=== PATIENT | male | born 1940 | race Caucasian/White ===

== ENCOUNTER 2017-12-29 06:16 | Inpatient (IN) | payer OTHER, MEDICARE ==
[2017-12-29] MEDS ORDERED: NA CHLORIDE 0.9% 1,000 ML ONE ×2 (07:16→08:31)
[2017-12-29 07:36] LABS: Absolute Lymphocytes (CBC) 0.5 K/uL (0.7-4.9); Absolute Monocytes 0.8 K/uL (0.1-1.3); Absolute Neutrophil 14.7 K/uL (1.8-8.0); Basophils % 0.4 % (0-1.3); Hematocrit 38.4 % (39.6-49.0); MCH 30.4 pg (27.0-35.0); MCV 91.7 fL (80-100); MPV 8.8 fL (7.6-11.3); Monocytes % 5.3 % (3.3-12.3); RBC Red Blood Cell Count 4.18 M/uL (4.33-5.43)
[2017-12-29 07:44] LABS: Protime INR 1.4
[2017-12-29 07:49] LABS: Potassium 4.1 mEq/L (3.6-5.0)
[2017-12-29 07:55] LABS: Albumin 3.5 g/dL (3.2-5.5); Bilirubin Direct 0.5 mg/dL (0-0.2); Bilirubin Total 1.9 mg/dL (0.3-1.2); Magnesium 1.7 mg/dL (1.8-2.5); Protein, Total 7.4 g/dL (6.0-8.3)
[2017-12-29 07:59] LABS: CKMB Creatine Kinase MB 4.1 ng/ml (0.3-4.0)
--- NOTE | 2017-12-29 08:39 | RAD REPORT ---
EXAM DESCRIPTION: CT - Head Brain Wo Cont - 12/29/2017 8:32 am CLINICAL HISTORY: Altered consciousness COMPARISON: 12/01/2016 TECHNIQUE: All CT scans are performed using dose optimization technique as appropriate and may inclu de automated exposure control or mA/KV adjustment according to patient size. FINDINGS: No intracranial hemorrhage, hydrocephalus or extra-axial fluid collection.Moderate general ized brain atrophy is present with moderate periventricular and deep white matter chronic microvascul ar ischemic changes.No areas of brain edema or evidence of midline shift. The paranasal sinuses and mastoids are clear. The calvarium is intact. Vertebrobasilar atherosclerosi s is seen. IMPRESSION: No acute intracranial abnormality.
[2017-12-29 09:05] LABS: Arterial Blood Carboxyhemoglob 1.2 % (0-1.5); Blood Gas Oxyhemoglobin 94.6 % (94-97); Blood O2 Saturation 96.2 % (92-98.5)
[2017-12-29 09:25] LABS: Platelet Estimate ADEQ; Urine White Blood Cell Casts DIFF
[2017-12-29 09:26] LABS: Blood Morphology Comment NOT SEEN (NOT SEEN)
[2017-12-29] MEDS ORDERED: MAGNESIUM SULFATE 1 gm IVPB 1 GM/100 ML BAG IV ONE (09:59)
[2017-12-29 10:07] LABS: Urine Amorphous Sediment 1+ /HPF (NONE SEEN); Urine Bacteria 20-50 /HPF (NONE SEEN); Urine Culture Reflex Order REFLEXED; Urine Mucus 1+ /HPF (NONE SEEN)
--- NOTE | 2017-12-29 10:35 | RAD REPORT ---
EXAM DESCRIPTION: CT - Abdomen Pelvis Wo Contrast - 12/29/2017 10:18 am CLINICAL HISTORY: Abdominal pain. COMPARISON: 07/25/2016 TECHNIQUE: CT imaging of the abdomen and pelvis was performed without contrast. Solid organ, bowel a nd vascular assessment is limited due to lack of IV and oral contrast. All CT scans are performed using dose optimization technique as appropriate and may include automated exposure control or mA/KV adjustment according to patient size. FINDINGS: Linear subsegmental atelectasis is present in both lung bases.An area of round atelectasis is also suspected medial left lung base, unchanged. The liver, spleen, pancreas, adrenal glands and left kidney are within normal limits for a limited no n-contrast examination.6 mm nonobstructing right renal calculus. Postsurgical changes are present in the region of the umbilicus as well as the inferior anterior abdo sami cavity. Mild fluid is present in the inferior abdominal cavity as well as the left lower quadra nt, presumably related to recent surgery. Diverticulosis coli is present without diverticulitis. The appendix is normal. The osseous structures are within normal limits.Moderate prostatomegaly with a Ash catheter in plac e. IMPRESSION: Mild free fluid in the inferior anterior abdomen and left lower quadrant may represent f ree fluid or liquified hematoma related recent surgical intervention. No acute hematoma is seen in th e region. 6 mm nonobstructing right renal calculus. Diverticulosis coli without diverticulitis. Significant prostatomegaly. A limited non-contrast examination was performed as detailed.
--- NOTE | 2017-12-29 11:01 | RAD REPORT ---
EXAM DESCRIPTION: RAD - Chest Single View - 12/29/2017 7:40 am CLINICAL HISTORY: Chest pain. COMPARISON: 12/01/2016 FINDINGS: Portable technique limits examination quality. The lungs are underinflated but grossly clear. The heart is mildly prominent size with changes of a p rior CABG. No displaced fractures.Mild degenerate changes are present both shoulders.
[2017-12-29] MEDS ORDERED: CEFTRIAXONE/SWI 1gm 1 GM/10 ML SYR ONE (11:20)
--- NOTE | 2017-12-29 12:03 | EKG ---
Test Date: 2017-12-29 Test Time: 07:28:11 Smoking Tobacco Packing Machine Hand: EMT MEASUREMENT RESULTS: Intervals: Rate: 101 HI: QRSD: 108 QT: 358 QTc: 464 Hastings: P: HI: QRS: 46 T: 215 INTERPRETIVE STATEMENTS: Atrial fibrillation with rapid ventricular response with premature ventricular or aberrantly conducted complexes ST & T wave abnormality, consider inferolateral ischemia Abnormal ECG Compared to ECG 07/25/2016 00:34:57 Ventricular premature complex(es) now present Possible ischemia now present Prolonged QT interval no longer present ST (T wave) deviation still present Electronically Signed On 12-29-17 12:03:09 CDT by Jose J Mccain
--- NOTE | 2017-12-29 12:19 | ER ---
Nurse's Notes [facility] Name: Abisai Salinas Age: 77 yrs Sex: Male : 1940 Arrival Date: 12/29/2017 Time: 06:22 Bed 4 Private MD: Diagnosis: Altered mental status, unspecified;Urinary tract infection, site not specified;Acute kidney injury - Urinary retention Presentation: 12/29 06:22 Presenting complaint: EMS states: post hernia sx in [facility] with AMS, ak1 generalized weakness and decreased appetite. Transition of care: patient was not received from another setting of care. Onset of symptoms is unknown. Initial Sepsis Screen: Does the patient meet any 2 criteria? Altered Mental Status. No. Patient's initial sepsis screen is negative. Does the patient have a suspected source of infection? No. Patient's initial sepsis screen is negative. Care prior to arrival: None. 06:22 Method Of Arrival: EMS: [facility] ak1 06:22 Acuity: BIB 3 ak1 Triage Assessment: 06:26 General: Appears in no apparent distress. Behavior is calm, cooperative. Pain: ak1 Complains of pain in abdomen. Neuro: Level of Consciousness is awake, alert, obeys commands, Oriented to person, place, time, situation, Lace Burn Out Tender are equal bilaterally Moves all extremities. Speech is normal, Facial symmetry appears normal, EMS stated pt with intermitted altered mental status. . Historical: - Allergies: 06:25 No Known Allergies; ak1 - Home Meds: 06:25 Eliquis Oral [Active]; Glipizide Oral [Active]; Metformin Oral [Active]; Metoprolol ak1 Tartrate Oral [Active]; - PMHx: 06:25 Diabetes - NIDDM; Hypertension; ak1 - PSHx: 06:25 Bypass; Hernia repair; ak1 - Immunization history:: Adult Immunizations unknown. - Social history:: Smoking status: unknown. Screenin:26 Abuse screen: Denies threats or abuse. Denies injuries from another. Nutritional ak1 screening: No deficits noted. Tuberculosis screening: No symptoms or risk factors identified. Fall Risk None identified. Assessment: 06:33 General: SEE TRIAGE NOTE. 77YO WM P/W SOB AND INTERMITTENT AMS SINCE HERNIA REPAIR SX bp x5 DAYS AGO. ST ON MONITOR, PT AOx4 AT THIS TIME. 07:00 General: Appears in no apparent distress. uncomfortable, well groomed, well developed, sg well nourished, Behavior is calm, cooperative, appropriate for age. Pain: Complains of pain in abdomen and pelvis Quality of pain is described as tender, throbbing. Neuro: Level of Consciousness is awake, alert, obeys commands, intermittent confusion noted and visual hallucinations reported by the pt . Oriented to person, place, time, Lace Burn Out Tender are equal bilaterally Speech is normal, Facial symmetry appears normal. Cardiovascular: Heart tones S1 S2 present Capillary refill is brisk in bilateral fingers toes Patient's skin is warm and dry. Chest pain is denied. Cardiovascular: Rhythm is sinus tachycardia. Respiratory: Airway is patent Respiratory effort is even, unlabored, Respiratory pattern is regular, symmetrical, Breath sounds are clear. GI: No signs and/or symptoms were reported involving the gastrointestinal system. : No signs and/or symptoms were reported regarding the genitourinary system. EENT: No signs and/or symptoms were reported regarding the EENT system. Derm: Skin is pink, warm \\T\\ dry. Musculoskeletal: Reports pain in right femoral area. 08:08 Reassessment: Patient appears in no apparent distress at this time. pt transported to sg CT scan for CT of head, pt reports seeing orange trucks on the [place] at this time, Marga WOODS RIDER at bedside at this time evaluating pt, pt to CT in stable condition. 08:50 Reassessment: he inserted, perineal care performed, genitals appear swollen and sg bruising noted to penis and scrotum, pt reports that "two months ago performed a surgery on the pt prostate, inserted pins or some procedure im not sure exactly.". 08:50 : Eh in place Urine is cloudy, nikolas colored Swelling noted on penis on scrotum. sg Derm: Bruising that is dark purple, green, on head of penis, shaft of penis, perineum, meatus and scrotum. 08:55 Reassessment: He clamped after 200 mL collected, he to be unclamped in 20 mins to sg avoid problems with bladder decompression, pt informed, pt stated understanding. 08:57 Reassessment: Deya LOPEZ at bedside obtaining an ABG. sv 09:09 Reassessment: pt reports to that there is a man at bedside, but only the pt sg is the room with him at this time, Marga MURRAY notified. 10:29 Reassessment: Patient appears in no apparent distress at this time. Patient and/or sg family updated on plan of care and expected duration. Pain level reassessed. Patient is alert, oriented x 3, equal unlabored respirations, skin warm/dry/pink. pt returned from CT, placed back onto monitors, Jc blood noted in the pt he collection bag, Marga MURRAY notified. 12:10 Reassessment: Patient appears in no apparent distress at this time. Patient and/or sg family updated on plan of care and expected duration. Pain level reassessed. V/O received from Blake MURRAY to maintain I/O record, administer NS 1 LITER bolus IV. Vital Signs: 06:25 BP 148 / 69; Pulse 117; Resp 20; Temp 98.6(O); Pulse Ox 97% on R/A; Weight 83.91 kg ak1 (R); Height 5 ft. 11 in. (180.34 cm) (R); Pain 9/10; 06:46 BP 106 / 85; Pulse 110; Resp 18; Pulse Ox 96% ; bp 07:40 BP 153 / 99; Pulse 105; Resp 25; Pulse Ox 96% ; sv 09:02 BP 167 / 89; Pulse 111; Resp 25; Pulse Ox 97% ; sv 10:34 BP 157 / 72; Pulse 98 MON; Resp 20 S; Pulse Ox 99% on R/A; sg 12:00 BP 158 / 87; Pulse 99; Resp 18 S; Temp 98.6; Pulse Ox 97% on R/A; Pain 0/10; sg 13:21 BP 152 / 72; Pulse 97; Resp 18; Pulse Ox 99% on R/A; Pain 0/10; sg 06:25 Body Mass Index 25.80 (83.91 kg, 180.34 cm) ak1 ED Course: 06:22 Patient arrived in ED. em1 06:24 Triage completed. ak1 06:25 Arm band placed on Patient placed in an exam room, on a stretcher, on registered nurse cardiac, ak1 on pulse oximetry, Patient notified of wait time. 06:27 Patient has correct armband on for positive identification. Placed in gown. Bed in low ak1 position. Call light in reach. Side rails up X2. Adult w/ patient. manager media on. Pulse ox on. NIBP on. 06:32 Blake Chambers NP is PHCP. pm1 06:32 Greg Christine MD is Attending Physician. pm1 06:33 Yakov Garcia, MICHI is Primary Nurse. bp 07:00 Initial lab(s) drawn, by me, sent to lab. Missed attempt(s): 20 gauge in right sg antecubital area. Bleeding controlled, band aid applied, catheter tip intact. 07:19 Inserted saline lock: 20 gauge in right antecubital area, using aseptic technique. ms 07:26 Radiology exam delayed due to lab results not completed at this time. (BUN/Creatinine). cw1 07:38 XRAY Chest (1 view) In Process Unspecified. EDMS 08:32 CT Head Brain wo Cont In Process Unspecified. EDMS 08:55 He cath inserted, using sterile technique, 16 Fr., by launch steward, balloon inflated, to sg gravity drainage, urine specimen collected. returned nikolas urine. Patient tolerated well. output 200 mL noted, he cath clamped at this time, will unclamp he in 20 mins, and repeat to prevent problems with decompressing bladder. 08:57 CBC Smear Scan Sent. sv 10:18 Abdomen In Process Unspecified. EDMS 10:18 CT completed. Patient tolerated procedure well. Patient moved back from CT. cw1 12:17 Hussain Peter MD is Hospitalizing Provider. pm1 13:20 No provider procedures requiring assistance completed. Patient admitted, IV remains in sg place. intact, No redness/swelling at site. Administered Medications: 07:27 Drug: NS 0.9% 500 ml Volume: 500 ml; Route: IV; Rate: 1 bolus; Site: right antecubital; sg 07:57 Follow up: Response: No adverse reaction; IV Status: Completed infusion sg 07:57 Drug: NS 0.9% 1000 ml Route: IV; Rate: 100 ml/hr; Site: right antecubital; sg 09:29 Not Given (Physician Discretion; v/o recieved from Blake GILES to hold fluid bolus at sg this time): NS 0.9% 1000 ml IV at 1000 ml once 10:28 Drug: Magnesium Sulfate 1 grams Route: IVPB; Infused Over: 1 hrs; Site: right sg antecubital; 11:27 Follow up: Response: No adverse reaction; IV Status: Completed infusion sg 11:20 Drug: Rocephin 1 grams Route: IV; Rate: calculated rate; Site: right antecubital; sg 12:00 Follow up: Response: No adverse reaction; medication administered slow IVP as ordered sg 12:15 Drug: NS 0.9% 1000 ml Route: IV; Rate: 1000 ml; Site: right antecubital; sg Intake: Output: 09:58 Urine: 1000ml (He); Total: 1000ml. ms 10:24 Urine: 700ml (He); Total: 1700ml. ms 13:21 Urine: 800ml (He); Total: 2500ml. sg Outcome: 12:18 Decision to Hospitalize by Provider. pm1 13:33 Patient left the ED. Signatures: Dispatcher [employer] EDIlda Kiser RN RN sv Gay, Steven RN MICHI Clemencia Villalpando ms Janusz Zamudio em1 Josefa Bear RN RN ss Woodley, Crystal 1 Nikolas Rivera RN RN ak1 Blake Chambers, COOPERATIVE EDUCATION DIRECTOR COOPERATIVE EDUCATION DIRECTOR pm1 Yakov Garcia, RN RN bp Corrections: (The following items were deleted from the chart) 12:33 08:55 He cath inserted, using sterile technique, 16 Fr., by launch steward, balloon sg inflated, to gravity drainage, urine specimen collected. returned nikolas urine. Patient tolerated well. output 1200 mL noted, he cath clamped at this time, will unclamp he in 20 mins sg
--- NOTE | 2017-12-29 12:19 | EDPHYS ---
Physician Documentation [facility] Name: Abisai Salinas Age: 77 yrs Sex: Male : 1940 Arrival Date: 12/29/2017 Time: : Bed 4 Private MD: ED Physician Greg Christine HPI: 12/29 13:30 This 77 yrs old Male presents to ER via EMS with complaints of Abdominal pm1 pain, generalized weakness, and AMS. 13:30 The patient presents with abdominal pain that is diffuse. Onset: The symptoms/episode pm1 began/occurred 6 day(s) ago. The symptoms do not radiate. Associated signs and symptoms: Pertinent positives: Decreased urination and decreased PO intake for the past 3 days, Pertinent negatives: chest pain, diarrhea, fever, nausea, shortness of breath, vomiting. Modifying factors: The symptoms are alleviated by nothing, the symptoms are aggravated by nothing. Patient with surgery last Saturday by Dr. Efren Gomez at [facility]. Patient had laproscopic surgical repair of umbilical, bilateral inguinal, and LLQ hernias. Patient was discharged home on Saturday night and was doing well for two days. Patient then started having generalized weakness and decreased activity and PO intake. Patient has started hallucinating. Yesterday he started seeing snakes and today he is seeing people loading items in and out of a truck. . Historical: - Allergies: 06:25 No Known Allergies; ak1 - Home Meds: 06:25 Eliquis Oral [Active]; Glipizide Oral [Active]; Metformin Oral [Active]; Metoprolol ak1 Tartrate Oral [Active]; - PMHx: 06:25 Diabetes - NIDDM; Hypertension; ak1 - PSHx: 06:25 Bypass; Hernia repair; ak1 - Immunization history:: Adult Immunizations unknown. - Social history:: Smoking status: unknown. ROS: 13:30 Eyes: Negative for injury, pain, redness, and discharge. pm1 13:30 ENT: Negative for injury, pain, and discharge, Neck: Negative for injury, pain, and swelling, Cardiovascular: Negative for chest pain, palpitations, and edema, Respiratory: Negative for shortness of breath, cough, wheezing, and pleuritic chest pain. 13:30 Back: Negative for injury and pain. 13:30 MS/Extremity: Negative for injury and deformity, Skin: Negative for injury, rash, and discoloration. 13:30 Constitutional: Positive for poor PO intake, Negative for chills, fever. 13:30 Abdomen/GI: Positive for abdominal pain, Negative for nausea, vomiting, and diarrhea. 13:30 : Positive for Decreased urination . 13:30 Neuro: Positive for altered mental status, visual hallucinations , Negative for headache, numbness, tingling. Exam: 13:30 Constitutional: This is a well developed, well nourished patient who is awake, alert, pm1 and in no acute distress. Head/Face: Normocephalic, atraumatic. Eyes: Pupils equal round and reactive to light, extra-ocular motions intact. Lids and lashes normal. Conjunctiva and sclera are non-icteric and not injected. Cornea within normal limits. Periorbital areas with no swelling, redness, or edema. ENT: Nares patent. No nasal discharge, no septal abnormalities noted. Tympanic membranes are normal and external auditory canals are clear. Oropharynx with no redness, swelling, or masses, exudates, or evidence of obstruction, uvula midline. Mucous membranes moist. Neck: Trachea midline, no thyromegaly or masses palpated, and no cervical lymphadenopathy. Supple, full range of motion without nuchal rigidity, or vertebral point tenderness. No Meningismus. Chest/axilla: Normal chest wall appearance and motion. Nontender with no deformity. No lesions are appreciated. Cardiovascular: Regular rate and rhythm with a normal S1 and S2. No gallops, murmurs, or rubs. Normal PMI, no JVD. No pulse deficits. Respiratory: Lungs have equal breath sounds bilaterally, clear to auscultation and percussion. No rales, rhonchi or wheezes noted. No increased work of breathing, no retractions or nasal flaring. 13:30 Back: No spinal tenderness. No costovertebral tenderness. Full range of motion. Skin: Warm, dry with normal turgor. Normal color with no rashes, no lesions, and no evidence of cellulitis. MS/ Extremity: Pulses equal, no cyanosis. Neurovascular intact. Full, normal range of motion. 13:30 Abdomen/GI: Inspection: obese Bowel sounds: normal, Palpation: soft, mild abdominal tenderness, in the umbilical area, right lower quadrant and left lower quadrant, mass, is not appreciated. 13:30 Neuro: Orientation: to person, place, situation, Year. Mentation: is normal, Motor: moves all fours, Positive for hallucinations. Vital Signs: 06:25 BP 148 / 69; Pulse 117; Resp 20; Temp 98.6(O); Pulse Ox 97% on R/A; Weight 83.91 kg ak1 (R); Height 5 ft. 11 in. (180.34 cm) (R); Pain 9/10; 06:46 BP 106 / 85; Pulse 110; Resp 18; Pulse Ox 96% ; bp 07:40 BP 153 / 99; Pulse 105; Resp 25; Pulse Ox 96% ; sv 09:02 BP 167 / 89; Pulse 111; Resp 25; Pulse Ox 97% ; sv 10:34 BP 157 / 72; Pulse 98 MON; Resp 20 S; Pulse Ox 99% on R/A; sg 12:00 BP 158 / 87; Pulse 99; Resp 18 S; Temp 98.6; Pulse Ox 97% on R/A; Pain 0/10; sg 13:21 BP 152 / 72; Pulse 97; Resp 18; Pulse Ox 99% on R/A; Pain 0/10; sg 06:25 Body Mass Index 25.80 (83.91 kg, 180.34 cm) ak1 MDM: 06:36 Patient medically screened. pm1 11:35 Physician consultation: Efren Gomez was called at 11:26, was contacted at 11:35, regarding pm1 consult, patient's condition, Believes that there might be a possible iatrogenic bladder injury from the hernia repair and recommends admission to hospitalist here with urology consultation. 11:35 Physician consultation: Efren Gomez Available for consultation by phone [phone]. pm1 11:50 Physician consultation: Brain Zamudio MD was called at 11:45, was contacted at 11:45, pm1 regarding consult, patient's condition, Will see the patient if consulted by hospitalist but believes that this is a case for urology to evaluate. Believes there is a possibility for damage to the bladder from laproscopic inguinal hernia repair with hematuria present. 12:12 Physician consultation: Iris Nazario MD and will see patient tomorrow, Admit to pm1 hospitalist, keep Ash in place, IV antibiotics - Rocephin. Impression is that he has hematuria from the decompression of his bladder. No CT cystogram at the moment because he does not believe that there is a bladder perforation. Patient has a large prostate and the patient likely had urinary retention post surgery that has resulted in urinary tract infection, urospesis. 12:30 Physician consultation: Hussain Peter MD was contacted at 12:30, regarding admission, pm1 patient's condition, and will see patient would like further tests performed, procalcitonin, lactate and blood cultures. 13:30 Data reviewed: vital signs. Data interpreted: Pulse oximetry: on room air is 99 %. pm1 Interpretation: normal. 12/29 06:56 Order name: Basic Metabolic Panel pm1 12/29 06:56 Order name: BNP pm1 12/29 06:56 Order name: CBC with Diff; Complete Time: 10:34 pm1 12/29 06:56 Order name: Ckmb; Complete Time: 08:00 pm1 12/29 06:56 Order name: CPK; Complete Time: 08:00 pm12/29 06:56 Order name: LFT's; Complete Time: 08:00 pm12/29 06:56 Order name: Magnesium; Complete Time: 08:00 pm12/29 06:56 Order name: PT-INR; Complete Time: 07:49 pm12/29 06:56 Order name: Ptt, Activated; Complete Time: 07:49 pm12/29 06:56 Order name: Troponin (emerg Dept Use Only); Complete Time: 08:00 pm12/29 06:56 Order name: Basic Metabolic Panel; Complete Time: 08:00 EDMS 12/29 06:56 Order name: BNP B-Type Natriuretic Peptide; Complete Time: 08:11 EDMS 12/29 07:47 Order name: CBC Smear Scan ED12/29 08:49 Order name: ABG; Complete Time: 13:43 pm12/29 06:56 Order name: XRAY Chest (1 view); Complete Time: 11:02 pm12/29 06:56 Order name: CT Head Brain wo Cont; Complete Time: 08:41 pm12/29 08:03 Order name: Abdomen ; Complete Time: 11:02 EDMS 12/29 09:03 Order name: Urine Dipstick--Ancillary (enter results); Complete Time: 13:43 eb 12/29 09:04 Order name: Urine Microscopic Only eb 12/29 09:04 Order name: Urine Microscopic Only; Complete Time: 10:34 EDMS 12/29 09:25 Order name: Manual Differential; Complete Time: 10:34 EDMS 12/29 10:08 Order name: Urine Culture EDGA 12/29 12:27 Order name: Blood Culture Adult (2) pm1 12/29 12:27 Order name: Procalcitonin; Complete Time: 16:21 pm1 12/29 12:27 Order name: Lactate; Complete Time: 13:43 pm1 12/29 12:46 Order name: Lactate EDGA 12/29 12:46 Order name: Lactate; Complete Time: 16:21 EDGA 12/29 06:56 Order name: EKG; Complete Time: 06:57 pm1 12/29 06:56 Order name: Cardiac monitoring; Complete Time: 07:18 pm1 12/29 06:56 Order name: EKG - Nurse/Tech; Complete Time: 07:27 pm1 12/29 06:56 Order name: IV Saline Lock; Complete Time: 07:18 pm1 12/29 06:56 Order name: Labs collected and sent; Complete Time: 07:18 pm1 12/29 06:56 Order name: O2 Per Protocol; Complete Time: 07:18 pm1 12/29 06:56 Order name: O2 Sat Monitoring; Complete Time: 07:18 pm1 12/29 06:56 Order name: Urine Dipstick-Ancillary (obtain specimen); Complete Time: 09:15 pm1 12/29 08:10 Order name: Ash; Complete Time: 09:01 pm1 12/29 12:46 Order name: CONS Infection Control Cons EDGA 12/29 12:48 Order name: CONS Pharmacy Consult EDGA Administered Medications: 07:27 Drug: NS 0.9% 500 ml Volume: 500 ml; Route: IV; Rate: 1 bolus; Site: right antecubital; sg 07:57 Follow up: Response: No adverse reaction; IV Status: Completed infusion sg 07:57 Drug: NS 0.9% 1000 ml Route: IV; Rate: 100 ml/hr; Site: right antecubital; sg 09:29 Not Given (Physician Discretion; v/o recieved from Blake GILES to hold fluid bolus at sg this time): NS 0.9% 1000 ml IV at 1000 ml once 10:28 Drug: Magnesium Sulfate 1 grams Route: IVPB; Infused Over: 1 hrs; Site: right sg antecubital; 11:27 Follow up: Response: No adverse reaction; IV Status: Completed infusion sg 11:20 Drug: Rocephin 1 grams Route: IV; Rate: calculated rate; Site: right antecubital; sg 12:00 Follow up: Response: No adverse reaction; medication administered slow IVP as ordered sg 12:15 Drug: NS 0.9% 1000 ml Route: IV; Rate: 1000 ml; Site: right antecubital; Disposition: 12/29/17 12:18 Hospitalization ordered by Hussain Peter for Inpatient Admission. Preliminary diagnosis are Altered mental status, unspecified, Urinary tract infection, site not specified, Acute kidney injury - Urinary retention. - Bed requested for Telemetry/MedSurg (Inpatient). - Status is Inpatient Admission. ss - Condition is Stable. - Problem is new. - Symptoms have improved. UTI on Admission? Yes Addendum: 01/07/2018 07:00 Co-signature as Attending Physician, Greg Christine MD. m a2 Signatures: Dispatcher [employer] EDMS Santi Beckford RN RN Josefa Bear RN RN Mamta Rivera RN RN ak1 Blake Chambers, JOURNEYMAN PRESS OPERATOR JOURNEYMAN PRESS OPERATOR pm1 Sulma Reynoso RN RN df Alzahri, Mohammad, MD MD nh2 Elza Torres Corrections: (The following items were deleted from the chart) 12/29 08:03 06:57 Abdomen Pelvis W Con+CT.RAD.BRZ ordered. EDMS EDMS
[2017-12-29 12:28] LABS: Urine Blood 2+ (NEG); Urine Glucose 2+ (NEG); Urine Protein 1+ (NEG)
[2017-12-29] MEDS ORDERED: ONDANSETRON 4 MG/2 ML VIAL IV PRN (12:47)
[2017-12-29] MEDS ORDERED: NA CHLORIDE 0.9% 1,000 ML IV SCH (13:00)
[2017-12-29] MEDS ORDERED: D50W 25 GM/50 ML SYRINGE IV PRN (15:14)
[2017-12-29] MEDS ORDERED: GLUCAGON 1 MG/VIAL IM PRN (15:14)
[2017-12-29] MEDS ORDERED: PNEUMOCOCCAL VACCINE 0.5 ML IMVAC ONE (16:00)
[2017-12-29] MEDS: INSULIN -REGULAR HUMAN 50 UNIT/0.5 ML ML SQ SCH ×2 (16:08→21:00)
[2017-12-29] MEDS: D5W 1,000 ML with NA BICARB 8.4% 75 MEQ IV SCH ×2 (16:38)
[2017-12-29] MEDS ORDERED: ENOXAPARIN 30 MG/0.3 ML SQ SCH (17:00)
[2017-12-29] MEDS: Morphine 2 MG/2 ML SYR IV PRN (18:54)
[2017-12-29] MEDS: ATORVASTATIN 40 MG TAB PO SCH (21:08)
[2017-12-30] MEDS ORDERED: PIPER/TAZO/NS 3.375gm 3.375 GM/100 ML BAG IVPB SCH
[2017-12-30] MEDS: PIPER/TAZO/NS 2.25gm 2.25 GM/50 ML BAG IVPB SCH ×3 (01:00→17:07)
[2017-12-30] MEDS ORDERED: PIPERACIL/TAZO 2.25 GM VIAL IV ONE (01:05)
[2017-12-30] MEDS ORDERED: NA CHLORIDE 0.9% 100 ML ONE (01:13)
--- NOTE | 2017-12-30 01:20 | CON ---
Date of Consultation: 12/29/2017 Chief Complaint: Acute kidney injury. History Of Present Illness: The patient has acute kidney injury, severe, borderline oliguric. The patient was found to have severe urinary retention. Ash catheter was placed and the patient was found to have 1.2 L urine in the bladder, which was drained with the Ash catheter. The patient has currently Ash catheter, which is draining clear yellowish urine. The patient was found to have severe azotemia due to urinary retention and hypovolemia. BUN was 67 and creatinine 4.29. There was mild metabolic acidosis , bicarbonate 19; mild hyponatremia, sodium 133; and hypomagnesemia, magnesium 1.7. The patient has history of hypertensive kidney disease and heart disease. BNP was elevated up to 406. The patient had uncontrolled hypertension. Blood pressure is stabilizing. On arrival to the hospital, blood pressure was up to 167/89 and 183/77. The patient developed progressively worse confusion over last several days. He denied fever or chills. He has history of TURP and history of diabetes mellitus and he is started on broad-spectrum antibiotics for urinary tract infection. He received sodium bicarbonate IV for metabolic acidosis. The patient has been treated with Lipitor for hypercholesterolemia. There is no evidence of rhabdomyolysis at this point. The patient previously had renal function evaluated and creatinine baseline was 1.09 back in July 2016. Review of Systems: General: The patient is somewhat lethargic, although he answers questions. Eyes: Denies vision changes. Ears, Nose, Mouth, and Throat: Denies sore throat or earache. Respiratory: Denies PND or orthopnea. Cardiovascular: Denies chest pain or palpitation. GI: Denies nausea or vomiting. : Denies dysuria or hematuria. He had urinary discomfort and urinary retention, difficulty with voiding. Musculoskeletal: Denies muscle aches or joint swelling. All other systems reviewed and all are negative. Past Medical History: Hypertension, diabetes, hyperlipidemia, BPH, peptic ulcer disease. Social History: Denies tobacco, alcohol, or illicit drugs. Family History: No kidney disease in the family. Physical Examination: General: The patient is awake, confused somewhat, encephalopathic, lethargic. Eyes: Anicteric sclerae. EOMI. Ears, Nose, Mouth, and Throat: Mucous membranes are moist. No pallor. Neck: Supple. No JVD. No bruits. Lungs: Clear to auscultation bilaterally. Heart: S1 and S2. No pericardial friction rub. Abdomen: Soft, benign, nontender. No flank tenderness. Extremities: No edema, no clubbing, no cyanosis. Neurologic: Moving all extremities. Cranial nerves intact. Psychiatric: Alert and oriented x2. Normal affect. Vital Signs: Blood pressure 151/79, heart rate 104, temperature 97.4. Laboratory Work: Sodium 133, potassium 4.1, chloride 103, CO2 19, BUN 57, creatinine 4.29, glucose 222, calcium 9.6, magnesium 1.7. Total bilirubin 1.9, AST 20, ALT 11, AP 76. CK level 119. Albumin 3.5, total protein 7.4. Urinalysis showed 2+ blood, leukocyte esterase 1+, rbc's from 10-20, wbc's from 10-20, urine protein 1+, specific gravity 1.020, pH 6.0. Impression And Plan: 1. Severe acute kidney injury. Currently, the patient has a Ash catheter for treatment of urinary retention and to prevent worsening of the renal function secondary to acute urinary retention. The patient will continue IV fluids to treat hypovolemia. The patient has acute kidney injury due to renal hypoperfusion and urinary retention. Urine output improved with placement of Ash catheter. Continue IV fluids for hydration to prevent renal hypoperfusion. Avoid nonsteroidal antiinflammatory medication. 2. Urinary tract infection, microscopic hematuria. The patient will be evaluated by urologist. The patient currently has a Ash catheter. Hematuria may be due to Ash catheter. The patient needs to be ruled out for other etiology including history of malignancy. 3. The patient will continue broad-spectrum antibiotics with renally adjusted dose. Currently, he is on Zosyn for possible urinary tract infection. 4. Altered mental status and encephalopathy secondary to acute kidney injury and urinary retention. Continue to monitor electrolytes closely. Adjust IV fluids as needed. 5. Hypertension. CHANDA inhibitor on hold due to acute kidney injury. Continue calcium channel guy and beta guy for blood pressure control. 6. Diabetes. Recommend to stop glipizide because of risk of hypoglycemia. Continue insulin treatment with sliding scale. EB/MODL Voice ID: [id number] Report ID: [id number] SCAR
--- NOTE | 2017-12-30 01:36 | HP ---
Date of Admission: 12/29/2017 Code Status: Full. Chief Complaint: Generalized weakness and altered mental status. History Of Present Illness: The patient is a 77-year-old male with past medical history of coronary artery disease, status post CABG, hypertension, diabetes, GERD, benign prostatic hyperplasia, carotid artery disease, who was in his usual state of health until 6 days prior to admission when the patient had hernia repair at [facility] laparoscopically. The patient did well with surgery performed by doctor surgeon, Patricia. The patient was doing well at home, however, over the past couple of days became more weak and progressively weaker, unable to stand up on his own and go to the bathroom. The patient also seemed slightly confused and was complaining of lower abdominal pain. The patient was brought into the hospital for worsening symptoms, which were moderate. The patient's symptoms are aggravated by any sort of pressure on the abdomen. The patient also has been unable to urinate properly and has had urinary retention which the patient did not realize. No dysuria. The patient denies any fevers, chills, nausea, or vomiting. The patient was brought into the ER for further evaluation. Upon arrival, his vital signs were stable. His workup revealed white count of 16,000 with neutrophilia. ABG showed normal pH, low bicarb, procalcitonin was 0.31. Lactate was normal. His UA was positive and also showed some gross hematuria after Ash catheter was placed with 1200 mL return. Imaging studies including CT scan of the abdomen and pelvis showed mild free fluid in the inferior anterior abdomen and left lower quadrant that may represent free fluid retroperitoneal hematoma related to recent surgical intervention. No acute hematoma, nonobstructing right renal calculus, 6 mm diverticulosis coli without diverticulitis and significant prostatomegaly. The patient's surgeon, Dr. Gomez was contacted by the ER personnel, Blake, the mid- level provider and the surgeon at [facility] did not feel that the patient had to be transferred to [facility] as this seemed more as a primary urinary retention issue. The patient's creatinine was elevated at 4.29. The patient was then referred for admission. When seen in the ER, the patient was awake, alert, oriented x3, mildly confused, in some mild distress, ill-appearing , elderly male. Past Medical History: Coronary artery disease, status post CABG, hypertension, diabetes mellitus type 2, gastroesophageal reflux disease, benign prostatic hyperplasia, carotid artery disease, and atrial fibrillation . Surgical History: CABG 25 years ago, carotid artery, carotid endarterectomy x2. Allergies: NO KNOWN DRUG ALLERGIES. Medications: Reviewed. Family History: Mother of heart disease. Social History: The patient denies any alcohol use or tobacco use, quit 30 years ago. No illicit drug use. The patient is . Does use an occasional cane for ambulation, mostly independent in his activities of daily living. Review of Systems: An 11-point system reviewed, negative except as above. Somewhat limited due to patient's medical condition supplemented by the . Physical Examination: Vital Signs: Temperature 98.6, heart rate 99 to 100, blood pressure 158/87, respirations 18, O2 97% on room air. General: Awake, alert, oriented x3, in some mild distress, ill-appearing, elderly male. HEENT: Normocephalic and atraumatic. PERRLA. EOMI. Dry mucous membranes. Oropharynx is clear. Poor dentition. Conjunctivae anicteric. Neck: Supple. No JVD. Trachea midline. CV: S1 and S2. No murmurs. Peripheral pulses present bilaterally. Respiratory: Moving air well bilaterally. No wheezing. No stridor. No use of accessory muscles. Gastrointestinal: Abdomen is soft. Mild tenderness to palpation in the left upper quadrant and suprapubic region. Some voluntary guarding. No rigidity. No palpable masses. Extremities: No clubbing, cyanosis, or edema. No calf tenderness. Neuro: Cranial nerves 2-12 intact grossly, 5/5 diffusely diminished strength due to generalized weakness, however, no focal neurological deficit. Speech is normal. Sensation is intact to light touch. Skin: No rashes. Some ecchymosis around the lower abdomen from recent surgery. Healing incision site clean, dry, intact in the abdomen and suprapubic region. Psych: Mood is okay. Affect is full. Insight and judgment are fair. Laboratory Data: Sodium 133, potassium 4.1, chloride 103, CO2 19, BUN 67, creatinine 4.29, glucose 222, lactic acid 10.2, calcium 9.6, magnesium 1.7, total bilirubin 1.9, direct bilirubin 0.5, AST 20, ALT 11, alkaline phosphatase 76, troponin 0.03, BNP 46, total protein 7.4, albumin 3.5. Procalcitonin 0.31. UA; 2+ blood, negative nitrite, 1+ leukocyte esterase, 10-20 rbc's, 10-20 wbc' s, 20-50 urine bacteria, 1+ protein. ABG; pH 7.39, pCO2 27, PO2 88, bicarb 16, INR 1.40. WBC 16.1, H and H 12.7 and 38.4, platelets 268, neutrophils 91%. Imaging Studies: CT scan of the abdomen and pelvis without contrast shows small free fluid in the inferior anterior abdomen and left lower quadrant. It may represent free fluid or look for hematoma related to recent surgical intervention. No acute hematoma seen in the region, 6 mm nonobstructing right renal calculus, diverticulosis coli without diverticulitis. Significant prostatomegaly, CT head without contrast shows no acute intracranial abnormality. Chest x-ray shows lungs are not inflated, but grossly clear and prominent in size with changes of prior CABG. Assessment And Plan: A 77-year-old male with; 1. Acute metabolic encephalopathy, improving, likely secondary to uremia. 2. Possible sepsis. The patient has a white count of 16,000, heart rate 99. Source of the infection is urinary tract infection. The patient does have kidney dysfunction with a creatinine of 4.29. We will continue with IV fluid hydration. Obtain blood cultures and urine culture and monitor closely. 3. Acute urinary retention, improved with Ash catheter placement. Dr. Nazario urologist has been consulted. The patient did develop some gross hematuria, likely related to prostatomegaly. 4. Benign prostatic hyperplasia, currently enlarged. CT scan shows gross significant prostatomegaly. We will continue with Flomax. 5. Coronary artery disease, status post coronary artery bypass graft, klamath artery, klamath heart without angina. 6. Essential hypertension. 7. Diabetes mellitus type 2, noninsulin dependent with hyperglycemia. We will continue with sliding scale insulin. 8. Gastroesophageal reflux disease without esophagitis. Continue PPI. 9. Carotid artery disease, status post bilateral carotid endarterectomy. 10. Metabolic acidosis. We will add bicarb to IV fluids. 11. Hypomagnesemia. We will replace and monitor. 12. Elevated total bilirubin, likely acute phase reactant. 13. Gastrointestinal and deep venous thrombosis prophylaxis, PPI and SCDs. No chemical anticoagulation due to gross hematuria. 14. Acute kidney injury. Continue with IV fluids. Avoid nephrotoxins secondary to urinary retention. Plan: 1. Admit the patient [facility]. The patient will continue on IV antibiotics. We will consult Dr. Nazario with Urology and Dr. Zamudio with General surgery and Dr. Hsu with Nephrology. ER mid level spoke with the surgeon, who performed recent hernia surgery. They did review the CAT scan. He felt that the patient does not need to be transferred to [facility] at this time. However, CT scan does show some free fluid. We will continue to monitor closely. We will obtain surgical consultation. ADDENDUM: Spoke w surgeon Dr. Gomez - reviewed CT findings and case with him. He does not recommend transfer. /SHONNA Voice ID: [id number] SCAR
[2017-12-30] MEDS: D5W 1,000 ML with NA BICARB 8.4% 75 MEQ IV SCH ×4 (04:18→15:52)
--- NOTE | 2017-12-30 04:21 | CON ---
Date of Consultation: 12/29/2017 Reason For Service: Abdominal pain. Indications: This is the case of a 77-year-old patient, who underwent laparoscopic left inguinal her columba repair at [facility] about 5 days ago. He said the first day he was okay. Then, day after he started to feel little bit discomfort in the pelvic region. He has also some ecchymosis over the surgical site. Today since he was not getting better, he decided to come to the ER. Apparently, [facility] ER physician discussed the case with the surgeon in [place] and after ruling out any acute trauma f rom the surgery, the patient was admitted to this institution due to the history of urinary retention and hematuria. Surgical consult was obtained here for evaluation from a surgical standpoint. Appar ently, he has history of altered mental status and he cannot give me any major information. Most of the information is obtained partly from the patient, partly from the chart, and partly from the [facility] staff when they were talking to the and also from the primary doctor I discussed the case wit h. Review of Systems: Unable to be obtained. Past Medical History: Includes diabetes and hypertension. Past Surgical History: Include hernia repair and heart surgery. Medications: Include Eliquis, glipizide, metformin, metoprolol. Social History: He does not smoke. He does not drink alcohol. Physical Examination: General: The patient is awake and alert. HEENT: The pupils are anicteric. Chest: Clear. Abdomen: Soft and depressible. No guarding or rebound. There is ecchymosis over the lower abdomen in left lower quadrant. Incisions are intact. No bleeding. No crepitus. No pulsation. No expandi ng hematoma. Extremities: Femoral pulses and dorsalis pedis pulses are still present. Full range of motion of bi lateral lower extremities. Genitourinary: The patient has a Ash in place. Apparently, the patient had hematuria in the begin aishwarya. Also has urinary retention with 1200 cc. Since then the color is better. Rectal: Deferred. Laboratory Data: Blood work shows WBC count of 16.1 with hemoglobin of 12.7. INR is 1.40. Sodium i s 133, bicarb 19, creatinine is 4.29, BUN 67, glucose 222. Total bilirubin of 1.9. UA shows rbc's 1 0-20 with wbc's 10-20. CAT scan of the abdomen and pelvis, interpreted by Dr. Maharaj as postsurgical c hanges present in the region of the umbilicus as well the inferior anterior abdominal cavity. Mild f luid is present in the inferior abdominal cavity as well as the left lower quadrant, presumably relat ed to the recent surgery. Diverticulosis present too. Enlarged prostate. A 6-mm nonobstructing kobe al calculus. Assessment: This is a 77-year-old patient with recent hernia repair, laparoscopic. From the surgica l standpoint, ecchymosis present in that area is not uncommon. The abdomen is soft and depressible. Now, the fluid that he has in the left lower quadrant even though can be related to the surgery, at the same time I cannot rule out also a bladder injury as a cause of that. For that reason, I explain ed to the physician that from the surgical standpoint I can take a look at this patient; from the uro logical standpoint, he needs an expert in that, which is a urologist, to rule out any damage in that area. With that condition, at this point the patient gets admitted to this hospital. We are going t o keep an eye on the patient. We are going to give him a clear liquid diet since the abdomen is nadir gn at this moment and then proceed accordingly. TERRENCE/SHONNA Voice ID: [id number] Report ID: [id number]
[2017-12-30] MEDS ORDERED: glipiZIDE 5 MG TAB PO SCH (08:00)
[2017-12-30] MEDS ORDERED: HOME MED 1 EA UNK (Glipizide [Glucotrol] 10 MG) PO SCH (09:00)
[2017-12-30] MEDS ORDERED: CEFTRIAXONE/SWI 1gm 1 GM/10 ML SYR IV SCH (09:00)
[2017-12-30 09:21] LABS: Hematocrit 39.5 % (39.6-49.0); RBC Red Blood Cell Count 4.34 M/uL (4.33-5.43)
[2017-12-30 09:22] LABS: Absolute Monocytes 0.7 K/uL (0.1-1.3); Absolute Neutrophil 8.5 K/uL (1.8-8.0); Basophils % 0.3 % (0-1.3); Eosinophils % 1.8 % (0-4.4); Lymphocytes % 9.3 % (15.3-44.8); MCV 91.1 fL (80-100); MPV 8.4 fL (7.6-11.3); Monocytes % 7.1 % (3.3-12.3)
[2017-12-30 09:28] LABS: Potassium 3.4 mEq/L (3.6-5.0)
[2017-12-30] MEDS ORDERED: POTASSIUM CL SA 10 MEQ TAB PO ONE (09:45)
[2017-12-30] MEDS: DOCUSATE NA 100 MG CAP PO SCH (10:00)
[2017-12-30] MEDS: INSULIN -REGULAR HUMAN 50 UNIT/0.5 ML ML SQ SCH ×4 (10:00→21:00)
[2017-12-30] MEDS: PANTOPRAZOLE 40MG TABLET PO SCH (10:00)
--- NOTE | 2017-12-30 14:00 | RAD REPORT ---
EXAM DESCRIPTION: US - Renal Ultrasound-Complete - 12/30/2017 1:32 pm CLINICAL HISTORY: Acute renal failure COMPARISON: CT study December 29, 2017 and July 2016 FINDINGS: The right kidney measures 10.1 x 5.2 x 5.0 cm. The left kidney measures 11.5 x 5.5 x 5.7 cm. Renal cortical thickness and echogenicity are normal. No hydronephrosis or suspicious renal mass. Approximately 17 mm cyst is present in the mid to lower pole hilum of the left kidney. This matches the current and prior CT study. IMPRESSION: No hydronephrosis or suspicious renal mass. No other significant findings.
--- NOTE | 2017-12-30 15:04 | RAD REPORT ---
EXAM DESCRIPTION: CT - Pelvis W/Cont - 12/30/2017 2:29 pm CLINICAL HISTORY: Recent prostate surgery, possible bladder injury COMPARISON: CT abdomen and pelvis December 29 TECHNIQUE: Axial 5 millimeter thick images of the pelvis were obtained following retrograde filling of the urinary bladder via an indwelling catheter. Imaging was then repeated after gravity drainage o f the bladder. FINDINGS: The CT pelvis imaging shows that the oral contrast has cleared from the December 29 study. Enlarged prostate gland is noted with Ash catheter in place. Urinary bladder is distended by the retrograde contrast. There is a small diverticulum posterior left . Extraluminal extravasation of the contrast is seen believed to be due to a small tear or rent in th e right anterior bladder wall. There is a thin crescent-shaped extraluminal contrast collection. On t he postvoid imaging bladder is contracted. Bladder knight are slightly thickened and irregular. There is a nodularity to the bladder base from the collapsed bladder is well is due to the large prostate g land projecting into the bladder base. The extravasated contrast volume has increased slightly from t he prevoid appearance. The extraluminal contrast is believed to part of the free fluid seen throughou t the anterior lower pelvis. No abnormal free air collection. There is stranding in the periumbilical region believed to be postsu rgical from recent scope. IMPRESSION: Small rent or tear is seen believed to be right anterior bladder wall resulting in extra vasation of the contrast.
[2017-12-30] MEDS: Morphine 2 MG/2 ML SYR IV PRN (15:51)
--- NOTE | 2017-12-30 17:38 | P.PN ---
Subjective Date of Service: 12/30/17 Chief Complaint: acute encephalopathy the patient remain obtunded, no fever. WBC WNL. Physical Examination - Vital Signs Temperature: 97.5 F Blood Pressure: 191/88 Pulse: 112 Respirations: 18 Pulse Ox (%): 94 - Physical Exam General: Other (obtunded) HEENT: Atraumatic, PERRLA Neck: Supple, JVD not distended Respiratory: Clear to auscultation bilaterally, Normal air movement Cardiovascular: Normal S1 S2, No gallops Gastrointestinal: Hypoactive, Distended, Tenderness (surgical wound) Musculoskeletal: No tenderness Integumentary: No rashes Neurological: Normal tone, Normal affect Lymphatics: No axilla or inguinal lymphadenopathy Assessment And Plan - Current Problems (Diagnosis) (1) Sepsis Current Visit: Yes Status: Acute (2) UTI (urinary tract infection) Current Visit: Yes Status: Acute Qualifiers: Urinary tract infection type: site unspecified Hematuria presence: with hematuria Qualified Code(s): N39.0 - Urinary tract infection, site not specified; R31.9 - Hematuria, unspecified; R31.9 - Hematuria, unspecified (3) Acute renal injury Current Visit: Yes Status: Acute (4) History of abdominal surgery Current Visit: Yes Status: Acute (5) Accidental perforation of bladder during operative procedure Current Visit: Yes Status: Acute - Plan #1 sepsis: due to bladder perforation during abdominal surgery. WBC came back to normal limits. No fever. Remain obtunded, blood cultures negative. Continue empiric treatment with IV Zosyn. #2 accidental bladder perforation during abdominal surgery: Dr Nazario has indicated that is not necessary to perform new surgical procedure to repair bladder. Instead, has recommended to continue IV antibiotics for a total of 10 days. Plan is to transfer to patient to a SNF to continue IV antibiotics. #3 gross hematuria: due to #2, resolving. #4 urinary retention: resolved after Ash catheter placement. 1200 ml out. #5 acute renal failure: likely obstructive uropathy. Creatinine is WNL now. Continue monitoring.
[2017-12-30] MEDS: ATORVASTATIN 40 MG TAB PO SCH (21:50)
[2017-12-31] MEDS: PIPER/TAZO/NS 2.25gm 2.25 GM/50 ML BAG IVPB SCH ×3 (00:59→17:14)
[2017-12-31] MEDS: D5W 1,000 ML with NA BICARB 8.4% 75 MEQ IV SCH ×4 (01:00→11:00)
--- NOTE | 2017-12-31 01:58 | PN ---
Date of Progress Note: 12/30/2017 Chief Complaint: Acute kidney injury. Subjective: Severe acute kidney injury. The patient underwent treatment with the IV fluids and renal function has improved. The patient was found to have hypovolemia and urinary retention. The patient presented to the hospital with altered mental status, confusion. The patient was found to have encephalopathy secondary to urinary retention. Renal function has improved. The patient has nonoliguric urine output. Ash catheter remains in place and draining yellowish urine. Review of Systems: Denies fever, chills. Objective: Lungs: Clear to auscultation bilaterally. Heart: S1, S2. Abdomen: Soft, benign, and nontender. Extremities: No edema. Laboratory Data: Hemoglobin 13, WBC 10.5, platelet count is 272. Sodium 142, potassium 3.4, chloride 104, CO2 28, BUN 26, creatinine 1.03, glucose is 221, calcium 8.8. Impression And Plan: 1. Urinary retention. Continue Ash catheter, pending Urology consultation. 2. Hypertension. Continue blood pressure medication. Adjust blood pressure for target systolic blood pressure of 120. Avoid CHANDA inhibitor and avoid angiotensin receptor guy because of resolving acute kidney injury. 3. Acute kidney injury secondary to urinary retention and hypovolemia. Continue IV fluids. 4. hypokalemia, replace accordingly. MARTY/[place] Voice ID: [id number] Report ID: [id number] MTDD
[2017-12-31 05:02] LABS: Absolute Lymphocytes (CBC) 1.4 K/uL (0.7-4.9); Absolute Monocytes 0.8 K/uL (0.1-1.3); Basophils % 0.5 % (0-1.3); Eosinophils % 2.8 % (0-4.4); Hematocrit 41.9 % (39.6-49.0); Lymphocytes % 11.7 % (15.3-44.8); MCH 30.7 pg (27.0-35.0); MCV 91.3 fL (80-100); MPV 8.7 fL (7.6-11.3); Monocytes % 7.3 % (3.3-12.3); RBC Red Blood Cell Count 4.59 M/uL (4.33-5.43)
[2017-12-31 05:06] LABS: Potassium 3.5 mEq/L (3.6-5.0)
[2017-12-31] MEDS: DOCUSATE NA 100 MG CAP PO SCH (08:48)
[2017-12-31] MEDS: PANTOPRAZOLE 40MG TABLET PO SCH (08:48)
[2017-12-31] MEDS: INSULIN -REGULAR HUMAN 50 UNIT/0.5 ML ML SQ SCH ×4 (08:49→20:39)
[2017-12-31] MEDS ORDERED: KCL 20 MEQ/100 mL IVPB 20 MEQ/100 ML BAG IV SCH (09:00)
[2017-12-31] MEDS: Morphine 2 MG/2 ML SYR IV PRN ×2 (12:55→20:39)
[2017-12-31] MEDS ORDERED: NA CHLORIDE 0.9% 1,000 ML IV SCH (14:00)
--- NOTE | 2017-12-31 16:16 | P.DS ---
Admission Date: 12/29/17 Discharge Date: 12/31/17 Disposition: TRANSFER TO [facility] Reason for Admission: acute encephalopathy - Problems (1) Sepsis Onset Date: 12/31/17 Current Visit: Yes Status: Acute (2) UTI (urinary tract infection) Onset Date: 12/31/17 Current Visit: Yes Status: Acute Qualifiers: Urinary tract infection type: site unspecified Hematuria presence: with hematuria Qualified Code(s): N39.0 - Urinary tract infection, site not specified; R31.9 - Hematuria, unspecified; R31.9 - Hematuria, unspecified (3) Acute renal injury Onset Date: 12/31/17 Current Visit: Yes Status: Acute (4) History of abdominal surgery Onset Date: 12/31/17 Current Visit: Yes Status: Acute (5) Accidental perforation of bladder during operative procedure Onset Date: 12/31/17 Current Visit: Yes Status: Acute Brief History of Present Illness: : The patient is a 77-year-old male with past medical history of coronary artery disease, status post CABG, hypertension, diabetes, GERD, benign prostatic hyperplasia, carotid artery disease, who was in his usual state of health until 6 days prior to admission when the patient had hernia repair at [facility] laparoscopically. The patient did well with surgery performed by doctor surgeon, Gomez. The patient was doing well at home, however, over the past couple of days became more weak and progressively weaker, unable to stand up on his own and go to the bathroom. The patient also seemed slightly confused and was complaining of lower abdominal pain. The patient was brought into the hospital for worsening symptoms, which were moderate. The patient's symptoms are aggravated by any sort of pressure on the abdomen. The patient also has been unable to urinate properly and has had urinary retention which the patient did not realize. No dysuria. The patient denies any fevers, chills , nausea, or vomiting. The patient was brought into the ER for further evaluation. Upon arrival, his vital signs were stable. His workup revealed white count of 16,000 with neutrophilia. ABG showed normal pH, low bicarb, procalcitonin was 0.31. Lactate was normal. His UA was positive and also showed some gross hematuria after Ash catheter was placed with 1200 mL return. Imaging studies including CT scan of the abdomen and pelvis showed mild free fluid in the inferior anterior abdomen and left lower quadrant that may represent free fluid retroperitoneal hematoma related to recent surgical intervention. No acute hematoma, nonobstructing right renal calculus, 6 mm diverticulosis coli without diverticulitis and significant prostatomegaly. The patient's surgeon, Dr. Gomez was contacted by the ER personnel, Blake, the mid- level provider and the surgeon at [facility] did not feel that the patient had to be transferred to [facility] as this seemed more as a primary urinary retention issue. The patient's creatinine was elevated at 4.29. The patient was then referred for admission. When seen in the ER, the patient was awake, alert, oriented x3, mildly confused, in some mild distress, ill-appearing , elderly male. Hospital Course: The patient was admitted to the hospital due to sepsis. He had leukocytosis, elevated procalcitonin and normal lactate, his renal function was significantly abnormal in context of urinary retention, creatinine was 4.29. CT abd pelvis report mild free fluid in the inferior anterior abdomen and left lower quadrant may represent free fluid or liquified hematoma related recent surgical intervention. No acute hematoma is seen in the region. The patient was started on empiric broad spectrum antibiotics, placed a Ash catheter daining initially 1200 ml of urine. Gradually the patient clinically improved. Blood cultures remain negative but still in process. Dr Zamudio (general surgeon) and Dr Nazario (Urologist) have evaluated the case, and they found that a clip was placed on the bladder. They have recommended to transfer the patient to [facility], where he had his hernia repair surgery to remove the clip. I have disucssed the case with Dr Gomez and Dr Toledo who accepted the patient at this facility. Patient will be transfer in stable condition. Vital Signs/Physical Exam: Temp Pulse Resp BP Pulse Ox 98.2 F 96 H 16 159/92 H 95 12/31/17 12:00 12/31/17 12:00 12/31/17 12:00 12/31/17 12:12/31/17 12:00 General: Alert, In no apparent distress HEENT: Atraumatic, PERRLA, EOMI Neck: Supple, JVD not distended Respiratory: Clear to auscultation bilaterally, Normal air movement Cardiovascular: Regular rate/rhythm, Normal S1 S2 Gastrointestinal: Normal bowel sounds, No tenderness Musculoskeletal: No tenderness Integumentary: No rashes Neurological: Normal speech, Normal tone, Normal affect Lymphatics: No axilla or inguinal lymphadenopathy, Axilla lymphadenopathy, Inguinal lymphadenopathy, Other Laboratory Data at Discharge: WBC 11.6 K/uL (4.3-10.9) H 12/31/17 04:08 Hgb 14.1 g/dL (13.6-17.9) 12/31/17 04:08 Hct 41.9 % (39.6-49.0) 12/31/17 04:08 Plt Count 298 K/uL (152-406) 12/31/17 04:08 PT 16.6 SECONDS (9.5-12.5) H 12/29/17 07:00 INR 1.40 12/29/17 07:00 APTT 24.0 SECONDS (24.3-36.9) L 12/29/17 07:00 Sodium 141 mEq/L (135-145) 12/31/17 04:08 Potassium 3.5 mEq/L (3.6-5.0) L 12/31/17 04:08 BUN 21 mg/dL (6-20) H 12/31/17 04:08 Creatinine 0.91 mg/dL (0.61-1.24) 12/31/17 04:08 Glucose 228 mg/dL (65-120) H 12/31/17 04:08 Magnesium 1.7 mg/dL (1.8-2.5) L 12/29/17 07:00 Total Bilirubin 1.9 mg/dL (0.3-1.2) H 12/29/17 07:00 AST 20 IU/L (10-42) 12/29/17 07:00 ALT 11 IU/L (10-60) 12/29/17 07:00 Alkaline Phosphatase 76 IU/L (42-121) 12/29/17 07:00 B-Natriuretic Peptide 406 pg/ml (<=100) H 12/29/17 07:00 Home Medications: Amlodipine Besylate [Norvasc] 5 mg PO DAILY 12/29/17 Aspirin [Aspirin EC 81 MG] 81 mg PO DAILY 12/29/17 Atorvastatin Calcium [Lipitor] 40 mg PO BEDTIME 12/29/17 Docusate [Colace Cap] 100 mg PO DAILY 12/29/17 Glipizide [Glucotrol] 10 mg PO DAILY 12/29/17 Lisinopril [Prinivil] 20 mg PO DAILY 12/29/17 Metformin HCl 1,000 mg PO BID 12/29/17 Metoprolol Succinate [Toprol Xl] 100 mg PO DAILY 12/29/17 Omeprazole Magnesium [Prilosec Otc] 20 mg PO DAILY 12/29/17 Diet: ADA Activity: Fall precautions Time spent managing pt's care (in minutes): 60
--- NOTE | 2017-12-31 20:28 | PN ---
Subjective: The patient is doing well this morning. Objective: I reviewed the CT scan this morning again with Dr. Zamudio, the general surgeon. We can see what was identified as a clip in the anterior bladder wall right by the perforation. The clip was seen on the plain view before contrast was given and after contrast was given the leak was right by the clip, he believes this clip came from a clip for the hernia mesh, but may have caused the bladder leakage, extraperitoneal. Recommendation: After discussing with Dr. Zamudio, we believe the best case for the patient to return to the surgeon, who knows the roadmap on exactly what he did and where he placed the clip and be a lot easier to find than someone who was not involved with the surgery to figure out what he did. He could combine that with Urology consultation at that time. I also thought about the option of doing a cystoscopy under anesthesia, but this would expose the patient on additional anesthesia risks, which he does not need. The best thing is to do both a cysto and the exploration at the same time, so we thought the best thing is to send the patient back to the hospital where he was operated on , so the same surgeon can be involved. The patient is stable. I explained this to the family, they are agreeable to doing that and they understand why they need to do that also. JEZ/SHONNA Voice ID: [id number] Report ID: [id number] MTDD
[2017-12-31] MEDS: ATORVASTATIN 40 MG TAB PO SCH (20:39)
--- NOTE | 2018-01-01 03:44 | PN ---
Date of Progress Note: 12/31/2017 Subjective: The patient doing well, was admitted with acute kidney injury secondary to prerenal. Af ter hydration, kidney function has been recovered back to baseline. Physical Examination: Vital Signs: Blood pressure 135/71 and pulse of 80. Chest: Clear to auscultation. Heart: S1, S2. Regular. Abdomen: Soft, nontender. Extremities: Trace edema. Laboratory Data: WBC 11.6, H and H of 14.1/41.9, platelets 298, sodium 141, potassium is 3.5, bicarb is 31, BUN is 21, creatinine 0.9, and calcium 8.6. Current Medications: 1.Insulin. 2.Morphine. 3.Zofran. 4.Zosyn. Assessment And Plan: 1.Acute kidney injury secondary to prerenal, resolved. We will discontinue IV fluid. 2.Hypertension, controlled, optimal. 3.Dehydration, prerenal, now normal volume. We will discontinue IV fluid. The patient cleared from the renal standpoint for discharge planning. PERFECTO Voice ID: [id number] Report ID: [id number]
--- NOTE | 2018-03-18 13:37 | PN ---
Date of Progress Note: 12/30/2017 Reason For Service: Bladder injury. Subjective: This is the case of a 77-year-old patient, comes from [place] after having there a lapar oscopic repair of hernia. The patient came to this institution with a hematuria workup has been done . I consulted the patient previously and trying to rule out any bladder injury. The patient feels b marlena now. No abdominal pain, but still with some occasional hematuria. Review of Systems: Ten points otherwise unremarkable. Objective: General: The patient is awake and alert. No distress. Chest: Bilateral breath sounds. Abdomen: Soft and depressible. No guarding or rebound. Suprapubic area, mild tenderness. Diagnostic Data: Pelvic CT was discussed with the radiologist, shows a small rent or a tear in the r ight anterior bladder with some extravasation of contrast. Assessment: This is a 77-year-old patient with a bladder leakage. By this moment, we already contac rubens Dr. Nazario. I explained to him the importance of following up with this patient. I really talked also to the primary doctor as to get the information from his surgeons in [place] since we would lik e this patient to be transferred to his institution for repair since this is done recently, may requi re surgical intervention. The patient and family fully explained that they also requests the patient to be back into these previous surgeons since he knows him and did the surgery recently. I did agre e with that and talk to the primary doctor to initiate transfer if it is safe by urological standpoint. At this moment, he is stable from the surgical standpoint. TERRENCE/SHONNA Voice ID: [id number] Report ID: [id number]
== END 2017-12-31 21:09 | disposition short-term general hospital (02) | DRG 871 ==
LOC: ER 06:16 → ERHOLD 13:04 → 4TH 13:15
PROVIDERS: ADMIT Family Medicine; ATTEND Internal Medicine
DX: A41.9 Sepsis, unspecified organism (principal); G93.41 Metabolic encephalopathy; N17.9 Acute kidney failure, unspecified; N39.0 Urinary tract infection, site not specified; E87.2 Acidosis; I13.0 Hypertensive heart and chronic kidney disease with heart failure and stage 1 through stage 4 chronic kidney disease, or unspecified chronic kidney disease; N99.71 Accidental puncture and laceration of a genitourinary system organ or structure during a genitourinary system procedure; R65.20 Severe sepsis without septic shock; N13.9 Obstructive and reflux uropathy, unspecified; E83.42 Hypomagnesemia; N40.1 Benign prostatic hyperplasia with lower urinary tract symptoms; E87.6 Hypokalemia; E86.1 Hypovolemia; N18.9 Chronic kidney disease, unspecified; I50.9 Heart failure, unspecified; E11.65 Type 2 diabetes mellitus with hyperglycemia; K21.9 Gastro-esophageal reflux disease without esophagitis; I48.91 Unspecified atrial fibrillation; I25.10 Atherosclerotic heart disease of native coronary artery without angina pectoris; R31.9 Hematuria, unspecified; R33.9 Retention of urine, unspecified; Z95.1 Presence of aortocoronary bypass graft; Z79.01 Long term (current) use of anticoagulants; Z23 Encounter for immunization
CPT/HCPCS: 36415; 51702; 70450; 71045; 72193; 74176; 76770; 80048; 80076; 81003; 81015; 82550; 82553; 82805; 82962; 83605; 83735; 83880; 84145; 84484; 85025; 85610; 85730; 87040; 87086; 87088; 93005; 94760; 96365; 96375; 99285; J0696; J2270; J2543; J3475; J7030

== ENCOUNTER 2018-02-07 00:44 | Emergency (ER) | payer OTHER, MEDICARE ==
--- OUTSIDE RECORDS SUMMARY | 2018-02-07 00:49 | XMS REPORT | Summary of Care ---
:1940 Author Organization [facility] Cardiology [facility] Address [address] [place] [address] [address] [place] [address]- Encounter HQ Candyntr_edel(FIN) [id number] Date(s): 11/28/17 - 11/28/[address] [address]- [phone] Discharge Disposition: Home or Self Care Attending Physician: Laith Buenrostro MD Referring Physician: Anderson Hernandez MD Vital Signs Most recent to oldest [Reference Range]: 1 Height 177.8 cm (11/28/17 11:03 AM) Blood Pressure [90-140/60-90 mmHg] 117/71 mmHg (11/28/17 11:03 AM) Peripheral Pulse Rate [60-100 bpm] 70 bpm (11/28/17 11:03 AM) Weight 86.818 kg (11/28/17 11:03 AM) Body Mass Index 27.46 m2 (11/28/17 11:03 AM) Problem List Condition Effective Dates Status Health Status Informant Carotid atherosclerosis(Confirmed) Active Chest pain1 10/30/12 Active CAD (coronary artery Active disease)(Confirmed) Coronary arteriosclerosis2 Active Diabetes mellitus(Confirmed) Active Diabetes mellitus(Confirmed) Active Hernia, femoral, bilateral(Confirmed) Active Reflux esophagitis(Confirmed) Active Glaucoma(Confirmed) Active Hyperlipidemia(Confirmed) Active Hypertension(Confirmed) Active Hypertensive disorder3 Active Mitral regurgitation(Confirmed) Active Nonspecific ST-T wave Active electrocardiographic changes(Confirmed) Persistent atrial Active fibrillation(Confirmed) Tricuspid regurgitation(Confirmed) Active Umbilical hernia(Confirmed) Active 1Data migrated from [employer] on 02/05/15.2Data migrated from [employer] on 02/05/15.3Data migrated from [employer] on 02/05/15. Allergies, Adverse Reactions, Alerts Substance Reaction Severity Status NKFA Active NKDA Active Medications atorvastatin 40 mg oral tablet 40 mg=1 tab, PO, Daily, 0 Refill(s) Start Date: 11/28/17 Stop Date: 12/02/17 Status: DiscontinuedFarxiga 5 mg oral tablet 5 mg=1 tab, PO, Daily, 0 Refill(s) Start Date: 11/28/17 Status: Ordered Results No data available for this section Immunizations No data available for this section Procedures Procedure Date Related Diagnosis Body Site Status CABG - Coronary artery bypass graft1 Completed Cardiac catheterization2 Completed Carotid endarterectomy3 Completed [id number] Grafts 21634Hyqgc and left Social History Social History Type Response Alcohol Past Smoking Status Former smoker; Exposure to Tobacco Smoke None; Cigarette Smoking Last 365 Days No; Reg Smoking Cessation Counseling No entered on: 12/18/17 Assessment and Plan No data available for this section
--- OUTSIDE RECORDS SUMMARY | 2018-02-07 00:49 | XMS REPORT | Summary of Care ---
:1940 Author Organization [facility] Cardiology [facility] Address [address] [place] [address] [address] [place] [address]- Encounter HQ Encntr_alias(FIN) [id number] Date(s): 07/19/17 - 07/20/[address] [address]- [phone] Vital Signs No data available for this section Problem List Condition Effective Dates Status Health Status Informant Carotid atherosclerosis(Confirmed) Active Chest pain1 10/30/12 Active Coronary arteriosclerosis2 Active Diabetes mellitus(Confirmed) Active Hyperlipidemia(Confirmed) Active Hypertensive disorder3 Active Mitral regurgitation(Confirmed) Active Nonspecific ST-T wave Active electrocardiographic changes(Confirmed) Persistent atrial Active fibrillation(Confirmed) Tricuspid regurgitation(Confirmed) Active 1Data migrated from [employer] on 02/05/15.2Data migrated from [employer] on 02/05/15.3Data migrated from [employer] on 02/05/15. Allergies, Adverse Reactions, Alerts Substance Reaction Severity Status NKDA Active Medications Eliquis 5 mg oral tablet 5 mg=1 tab, PO, BID, # 180 tab, 1 Refill(s), Pharmacy: [id number] Start Date: 07/19/17 Stop Date: 01/15/18 Status: Ordered Results No data available for this section Immunizations No data available for this section Procedures Procedure Date Related Diagnosis Body Site CABG - Coronary artery bypass graft1 Cardiac catheterization2 Carotid endarterectomy3 [id number] Grafts 04778Jekcw and left Social History Social History Type Response Smoking Status Former smoker; Exposure to Tobacco Smoke None; Cigarette Smoking Last 365 Days No; Reg Smoking Cessation Counseling No Assessment and Plan No data available for this section
--- OUTSIDE RECORDS SUMMARY | 2018-02-07 00:49 | XMS REPORT | Summary of Care ---
:1940 Author Organization [facility] Address [address] [place] [address]- Encounter HQ Katharina(BRUCE) [id number] Date(s): 12/31/17 - 12/31/[address] [address]- Discharge Disposition: ED Registered In Error Attending Physician: Neri Burns MD Vital Signs No data available for this [...] Active Umbilical hernia(Confirmed) Active 1Data migrated from [employer] on 02/05/15.2Data migrated from [employer] on 02/05/15.3Data migrated from [employer] on 02/05/15. Allergies, Adverse Reactions, Alerts Substance Reaction Severity Status NKFA Active NKDA Active Medications No data available for this section Results No data available for this section Immunizations No data available for this section Procedures Procedure Date Related Diagnosis Body Site Status CABG - Coronary artery bypass graft1 Completed Cardiac catheterization2 Completed Carotid endarterectomy3 Completed Repair of diaphragmatic hiatal hernia4 Completed [id number] Grafts 95548Vxcfm and left41 week ago Social History Social History Type Response Alcohol Past Smoking Status Former smoker; Exposure to Tobacco Smoke None; Cigarette Smoking Last 365 Days No; Reg Smoking Cessation Counseling No entered on: 12/31/17 Assessment and Plan No data available for this section
--- OUTSIDE RECORDS SUMMARY | 2018-02-07 00:49 | XMS REPORT | Summary of Care ---
:1940 Author Organization [facility] Address [address] [place] [address]- Encounter HQ Katharina(BRUCE) [id number] Date(s): 12/23/17 - 12/23/17 [place] [address]- Discharge Disposition: Home or Self Care Attending Physician: Fer Gomez MD Referring Physician: Fer Gomez MD Vital Signs Most recent to oldest 1 2 3 [Reference Range]: Height 180.34 cm (12/18/17 10:02 AM) Blood Pressure [90-140/60-90 142/69 mmHg 143/65 mmHg 143/62 mmHg mmHg] *HI* *HI* *HI* (12/23/17 4:45 PM) (12/23/17 4:39 PM) (12/23/17 4:24 PM) Respiratory Rate [14-20 BRMIN] 19 BRMIN 20 BRMIN 20 BRMIN (12/23/17 4:45 PM) (12/23/17 4:39 PM) (12/23/17 4:24 PM) Peripheral Pulse Rate [60-100 74 bpm bpm] (12/23/17 10:46 AM) Weight 84.091 kg (12/18/17 10:02 AM) Body Mass Index 25.86 m2 (12/18/17 10:02 AM) Problem List Condition Effective Dates Status [...] Severity Status NKFA Active NKDA Active Medications acetaminophen (ANES) 10 mg Route: IV, Drug form: INJ, Start date: 12/23/17 13:24:00 CDT, Stop date: 14:24:00 CDT Start Date: 12/23/17 Stop Date: 12/23/17 Status: CompletedAncef + sterile water 20 mL 2 gm, Route: IVPB, ONCE, Dosing Weight 84.091, kg, Start date: 12/23/17 10:33: 00 CDT, Stop date: 12/23/17 10:33:00 CDT, ABX Indication: Surgical Prophylaxis Notes: (Same As: Deanne Butler) MEDICATION WASTE Product Size: 1000 mgProduct Wasted: ___ mg Start Date: 12/23/17 Stop Date: 12/23/17 Status: OrderedANES flumazenil 0.2 mg, Route: IVP, PRN, Dosing Weight 84.091, kg, PRN Benzodiazepine Reversal, Initial dose, Start date: 12/23/17 14:45:00 CDT, Duration: 30 day, Stop date: 14:44:00 CDT Start Date: 12/23/17 Stop Date: 12/23/17 Status: DiscontinuedANES hydrALAZINE 10 mg, Route: IVP, Q20Min, Dosing Weight 84.091, kg, PRN Elevated BP, Start date : 12/23/17 14:45:00 CDT, Duration: 2 doses or times, Stop date: Limited # of times Start Date: 12/23/17 Stop Date: 12/23/17 Status: DiscontinuedANES HYDROmorphone 0.5 mg, Route: IVP, Q5Min, Dosing Weight 84.091, kg, PRN Pain Score 7-10, Start date: 12/23/17 14:45:00 CDT, Duration: 4 doses or times, Stop date: Limited # of times Start Date: 12/23/17 Stop Date: 12/23/17 Status: DiscontinuedANES morphine Sulfate 2 mg, Route: IVP, Q5Min, Dosing Weight 84.091, kg, PRN Pain Score 4-6, Start date: 12/23/17 14:45:00CDT, Duration: 5 doses or times, Stop date: Limited # of times Start Date: 12/23/17 Stop Date: 12/23/17 Status: DiscontinuedANES naloxone 0.4 mg, Route: IVP, Q2MIN, Dosing Weight 84.091, kg, PRN Narcotic Reversal, Start date: 12/23/17 14:45:00 CDT, Duration: 8 doses or times, Stop date: Limited # of times Start Date: 12/23/17 Stop Date: 12/23/17 Status: DiscontinuedANES ondansetron 4 mg, Route: IVP, ONCE, Dosing Weight 84.091, kg, PRN Nausea & Vomiting, Start date: 12/23/17 14:45:00 CDT Start Date: 12/23/17 Stop Date: 12/23/17 Status: DiscontinuedceFAZolin (ANES) Route: IV, Drug form: INJ, ONCE, Stop date: 12/23/17 14:02:00 CDT Start Date: 12/23/17 Stop Date: 12/23/17 Status: CompletedePHEDrine (ANES) Route: IV, Drug form: INJ, ONCE, Stop date: 12/23/17 14:02:00 CDT Start Date: 12/23/17 Stop Date: 12/23/17 Status: CompletedfentaNYL (ANES) Route: IV, Drug form: INJ, ONCE, Stop date: 12/23/17 14:17:00 CDT Start Date: 12/23/17 Stop Date: 12/23/17 Status: Completedglycopyrrolate (ANES) Route: IV, Drug form: INJ, ONCE, Stop date: 12/23/17 16:01:00 CDT Start Date: 12/23/17 Stop Date: 12/23/17 Status: CompletedLactated Ringers Injection IV (ANES) 1000 mL Route: IV, Total Volume: 1,000, Start date: 12/23/17 13:12:00 CDT, Stop date: 14:12:00 CDT Start Date: 12/23/17 Stop Date: 12/23/17 Status: Completedlidocaine (ANES) Route: IV, Drug form: INJ, ONCE, Stop date: 12/23/17 14:17:00 CDT Start Date: 12/23/17 Stop Date: 12/23/17 Status: Completedlidocaine 1% 0.5 mL, Route: INTRADERM, Dosing Weight 84.091, kg, ONCALL, Start date: 11:00:00 CDT, Duration: 1 doses or times Start Date: 12/23/17 Stop Date: 12/23/17 Status: Discontinuedneostigmine (ANES) Route: IV, Drug form: INJ, ONCE, Stop date: 12/23/17 16:01:00 CDT Start Date: 12/23/17 Stop Date: 12/23/17 Status: Completedondansetron (ANES) Route: IV, Drug form: INJ, ONCE, Stop date: 12/23/17 15:52:00 CDT Start Date: 12/23/17 Stop Date: 12/23/17 Status: Completedpropofol (ANES) Route: IV, Drug form: INJ, ONCE, Stop date: 12/23/17 14:17:00 CDT Start Date: 12/23/17 Stop Date: 12/23/17 Status: Completedrocuronium (ANES) Route: IV, Drug form: INJ, ONCE, Stop date: 12/23/17 14:22:00 CDT Start Date: 12/23/17 Stop Date: 12/23/17 Status: CompletedSodium Chloride 0.9% IV 1000 mL 1,000 mL, Rate: 25 ml/hr, Infuse over: 40 hr, Route: IV, Dosing Weight 84.091 kg , Total Volume: 1,000, Start date: 12/23/17 10:33:00 CDT, Duration: 30 day, Stop date: 01/22/18 10:32:00 CDT, 2.06, m2 Start Date: 12/23/17 Stop Date: 12/23/17 Status: Discontinued Results ELECTROLYTES Most recent to oldest [Reference Range]: 1 Sodium Lvl [135-145 mEq/L] 145 mEq/L (12/18/17 10:30 AM) Potassium Lvl [3.5-5.1 mEq/L] 4.3 mEq/L (12/18/17 10:30 AM) Chloride Lvl [95-109 mEq/L] 109 mEq/L (12/18/17 10:30 AM) CO2 [24-32 mEq/L] 28 mEq/L (12/18/17 10:30 AM) AGAP [10.0-20.0 mEq/L] 12.3 mEq/L (12/18/17 10:30 AM) CHEM PANEL Most recent to oldest [Reference Range]: 1 Creatinine Lvl [0.50-1.40 mg/dL] 1.12 mg/dL (12/18/17 10:30 AM) eGFR 63 mL/min/1.73m2 1 *NA* (12/18/17 10:30 AM) BUN [7-22 mg/dL] 17 mg/dL (12/18/17 10:30 AM) Glucose Lvl [70-99 mg/dL] 144 mg/dL *HI* (12/18/17 10:30 AM) Calcium Lvl [8.5-10.5 mg/dL] 9.8 mg/dL (12/18/17 10:30 AM) 1Result Comment: The eGFR is calculated using the CKD-EPI formula. In most young , healthy individualsthe eGFR will be >90 mL/min/1.73m2. The eGFR declines with age. An eGFR of 60-89 may be normal insome populations, particularly the elderly, for whom the CKD-EPI formula has not been extensively validated. Use of the eGFR is not recommended in the following populations: Individuals with unstable creatinine concentrations, including patients and those with serious co-morbid conditions. Patients with extremes in muscle mass or diet. The data above are obtained from the National Kidney Disease Education Program ( NKDEP) which additionally recommends that when the eGFR is used in patients with extremes of body mass index for purposesof drug dosing, the eGFR should be multiplied by the estimated BMI.HEMATOLOGY Most recent to oldest [Reference Range]: 1 Hgb [14.0-18.0 g/dL] 14.7 g/dL (12/18/17 10:30 AM) Hct [42.0-54.0 %] 43.7 % (12/18/17 10:30 AM) Immunizations No data available for this section Procedures Procedure Date Related Diagnosis Body Site Status CABG - Coronary artery bypass graft1 Completed Cardiac catheterization2 Completed Carotid endarterectomy3 Completed [id number] Grafts 71070Baxaw and left Social History Social History Type Response Alcohol Past Smoking Status Former smoker; Exposure to Tobacco Smoke None; Cigarette Smoking Last 365 Days No; Reg Smoking Cessation Counseling No entered on: 12/18/17 Assessment and Plan No data available for this section
--- OUTSIDE RECORDS SUMMARY | 2018-02-07 00:50 | XMS REPORT | Summary of Care ---
:1939 Author Organization [facility] Address [address] [place] [address]- Encounter HQ Encntr_alias(FIN) [id number] Date(s): 01/06/18 - 01/07/18 [facility] [address] [place] [address] [phone] Vital Signs No data available for this [...] Active Umbilical hernia(Confirmed) Active 1Data migrated from [employer] on 02/05/15.2Data migrated from [employer] on 02/05/15.3Data migrated from [employer] on 02/05/15. Allergies, Adverse Reactions, Alerts Substance Reaction Severity Status NKFA Active NKDA Active Medications No data available for this section Results No data available for this section Immunizations No data available for this section Procedures Procedure Date Related Diagnosis Body Site Status CABG - Coronary artery bypass graft1 Completed Cardiac catheterization2 Completed Carotid endarterectomy3 Completed Repair of diaphragmatic hiatal hernia4 Completed [id number] Grafts 47270Irzxp and left41 week ago Social History Social History Type Response Alcohol Past Smoking Status Former smoker; Exposure to Tobacco Smoke None; Cigarette Smoking Last 365 Days No; Reg Smoking Cessation Counseling No entered on: 12/31/17 Assessment and Plan No data available for this section
--- OUTSIDE RECORDS SUMMARY | 2018-02-07 00:50 | XMS REPORT | Summary of Care ---
:1940 Author Organization [facility] Address [address] [place] [phone]- Encounter HQ Katharina(BRUCE) [id number] Date(s): 12/31/17 - 01/02/18 [place] [address]- Encounter Diagnosis Unspecified injury of ureter, initial encounter (Final) - Discharge Disposition: Home or Self Care Attending Physician: Latonya Kamara MD Admitting Physician: Latonya Kamara MD Vital Signs Most recent to oldest 1 2 3 [Reference Range]: Height 182.88 cm (12/31/17 10:40 PM) Temperature Oral [96.4-99.1 97.8 DegF 98.2 DegF 98.3 DegF DegF] (01/02/18 4:08 PM) (01/02/18 11:25 AM) (01/02/18 7:58 AM) Blood Pressure [90-140/60-90 155/90 mmHg 149/72 mmHg 136/61 mmHg mmHg] *HI* *HI* (01/02/18 7:58 AM) (01/02/18 4:08 PM) (01/02/18 11:25 AM) Respiratory Rate [14-20 18 BRMIN 16 BRMIN 16 BRMIN BRMIN] (01/02/18 4:08 PM) (01/02/18 11:25 AM) (01/02/18 7:58 AM) Peripheral Pulse Rate [60-100 65 bpm 60 bpm 65 bpm bpm] (01/02/18 4:08 PM) (01/02/18 11:25 AM) (01/02/18 7:58 AM) Weight 93.295 kg (12/31/17 10:40 PM) Body Mass Index 27.89 m2 (12/31/17 10:40 PM) Problem List Condition Effective Dates Status Health [...] Active Umbilical hernia(Confirmed) Active 1Data migrated from [employer] on 02/05/15.2Data migrated from [employer] on 02/05/15.3Data migrated from [employer] on 02/05/15. Allergies, Adverse Reactions, Alerts Substance Reaction Severity Status NKFA Active NKDA Active Medications acetaminophen 650 mg, 2 tab, Route: PO, Drug form: TAB, Q4H, Dosing Weight 93.295, kg, PRN Pain 1-3/Temp > 100.4 F, Start date: 12/31/17 23:07:00 CDT, Duration: 30 day , Stop date: 01/30/18 23:06:00 CDT Notes: Do not exceed 4 gm/day. (Same as: Tylenol) Start Date: 12/31/17 Stop Date: 01/02/18 Status: Discontinuedacetaminophen-hydrocodone 325 mg-5 mg oral tablet 1 tab, Route: PO, Drug Form: TAB, Dosing Weight 93.295, kg, Q4H, PRN Pain Score 4-6, Start date: 12/31/17 23:07:00 CDT, Duration: 30 day, Stop date: 01/30/18 23 :06:00 CDT Notes: (Same as: Allen 325/5) Do not exceed 4gm/day of acetaminophen. Start Date: 12/31/17 Stop Date: 01/02/18 Status: Discontinuedalbumin human 25% intravenous solution 25 gm, 100 mL, Route: IVPB, Drug form: INJ, ONCE, Dosing Weight 93.295, kg, Start date: 01/01/18 5:48:00 CDT, Stop date: 01/01/18 5:48:00 CDT Notes: LOT#: Mfg: WASTE: F/P - Red; E -Red (Same as: Albuminar)"blood product derivative" Start Date: 01/01/18 Stop Date: 01/01/18 Status: Completedbrimonidine ophthalmic 1 drp, Route: BOTH EYES, Q12H, Drug form: SOLN, Start date: 01/01/18 21:00:00 CDT, Duration: 30 day,Stop date: 01/31/18 9:00:00 CDT Notes: (Same As: Alphagan) Start Date: 01/01/18 Stop Date: 01/02/18 Status: DiscontinuedcefTRIAXone + Sodium Chloride 0.9% IV 100 mL 1 gm, Route: IVPB, [id number], Dosing Weight 93.295, kg, Start date: 01/01/18 0:00: 00 CDT, Duration: 3 day, Stop date: 01/03/18 0:00:00 CDT, ABX Indication: Urinary Tract Infection Notes: (Same As: Rocephin).Use with 100 mL NS and infuse over 30 min MEDICATION WASTE Product Size: 1000 mgProduct Wasted: ___ mg Start Date: 01/01/18 Stop Date: 01/02/18 Status: DiscontinuedCombigan ophthalmic solution 1 drp, Route: BOTH EYES, Q12H, Drug form: SOLN, Start date: 01/01/18 21:00:00 CDT, Duration: 30 day,Stop date: 01/31/18 9:00:00 CDT Start Date: 01/01/18 Stop Date: 01/01/18 Status: DeletedDextrose 50% Syringe 12.5 gm, 25 mL, Route: IVP, Drug Form: INJ, Dosing Weight 93.295, kg, PRN, PRN Blood Glucose Results, Start date: 12/31/17 23:08:00 CDT, Duration: 30 day, Stop date: 01/30/18 23:07:00 CDT Start Date: 12/31/17 Stop Date: 01/02/18 Status: DiscontinuedDextrose 50% Syringe 25 gm, 50 mL, Route: IVP, Drug Form: INJ, Dosing Weight 93.295, kg, PRN, PRN Blood Glucose Results, Start date: 12/31/17 23:08:00 CDT, Duration: 30 day, Stop date: 01/30/18 23:07:00 CDT Start Date: 12/31/17 Stop Date: 01/02/18 Status: Discontinueddocusate 100 mg, 1 cap, Route: PO, Drug form: CAP, BID, Dosing Weight 93.295, kg, Start date: 01/01/18 9:00:00 CDT, Duration: 30 day, Stop date: 01/30/18 17:00:00 CDT Notes: (Same as: Colace) (Do Not Crush) Start Date: 01/01/18 Stop Date: 01/02/18 Status: DiscontinuedEliquis 5 mg, 1 tab, Route: PO, Drug form: TAB, BID, Dosing Weight 93.295, kg, Start date: 01/02/18 17:00:00CDT, Duration: 30 day, Stop date: 02/01/18 9:00:00 CDT Notes: Same as: Eliquis Start Date: 01/02/18 Stop Date: 01/02/18 Status: Discontinuedglucagon 1 mg, Route: IM, Drug form: PDR/INJ, PRN, Dosing Weight 93.295, kg, PRN Blood Glucose Results, Startdate: 12/31/17 23:08:00 CDT, Duration: 30 day, Stop date: 01/30/18 23:07:00 CDT Start Date: 12/31/17 Stop Date: 01/02/18 Status: Discontinuedhydrocortisone topical 0.5% cream 1 appl, TOP, BID, PRN Rash, 0 Refill(s) Start Date: 01/02/18 Status: Orderedhydrocortisone topical 0.5% cream 1 appl, Route: TOP, BID, Drug form: CRM, PRN Rash, Start date: 01/02/18 10:55: 00 CDT, Duration: 30 day, Stop date: 02/01/18 10:54:00 CDT Start Date: 01/02/18 Stop Date: 01/02/18 Status: Discontinuedinsulin lispro 2 unit, 0.02 mL, Route: SUB-Q, Drug form: SOLN, TID-Before Meals, Dosing Weight 93.295, kg, PRN Blood Glucose Results, Start date: 12/31/17 23:08:00 CDT, Duration: 30 day, Stop date: 01/30/18 23:07:00 CDT Notes: (Same as: Humalog ) Roll in palms of hands gently; Do not shake ` vigorously. "Single PatientUse Only " WASTE: F/P - Black; E - Municipal Trash Bin Stable for 28 days at room temperature.Expires in days from Date Start Date: 12/31/17 Stop Date: 01/02/18 Status: Discontinuedinsulin lispro 1 unit, 0.01 mL, Route: SUB-Q, Drug form: SOLN, TID-Before Meals, Dosing Weight 93.295, kg, PRN Blood Glucose Results, Start date: 12/31/17 23:08:00 CDT, Duration: 30 day, Stop date: 01/30/18 23:07:00 CDT Notes: (Same as: Humalog ) Roll in palms of hands gently; Do not shake ` vigorously. "Single PatientUse Only " WASTE: F/P - Black; E - Municipal Trash Bin Stable for 28 days at room temperature.Expires in days from Date Start Date: 12/31/17 Stop Date: 01/02/18 Status: Discontinuedinsulin lispro 3 unit, 0.03 mL, Route: SUB-Q, Drug form: SOLN, TID-Before Meals, Dosing Weight 93.295, kg, PRN Blood Glucose Results, Start date: 12/31/17 23:08:00 CDT, Duration: 30 day, Stop date: 01/30/18 23:07:00 CDT Notes: (Same as: Humalog ) Roll in palms of hands gently; Do not shake ` vigorously. "Single PatientUse Only " WASTE: F/P - Black; E - Municipal Trash Bin Stable for 28 days at room temperature.Expires in days from Date Start Date: 12/31/17 Stop Date: 01/02/18 Status: Discontinuedinsulin lispro 4 unit, 0.04 mL, Route: SUB-Q, Drug form: SOLN, TID-Before Meals, Dosing Weight 93.295, kg, PRN Blood Glucose Results, Start date: 12/31/17 23:08:00 CDT, Duration: 30 day, Stop date: 01/30/18 23:07:00 CDT Notes: (Same as: Humalog ) Roll in palms of hands gently; Do not shake ` vigorously. "Single PatientUse Only " WASTE: F/P - Black; E - Municipal Trash Bin Stable for 28 days at room temperature.Expires in days from Date Start Date: 12/31/17 Stop Date: 01/02/18 Status: Discontinuedinsulin lispro 5 unit, 0.05 mL, Route: SUB-Q, Drug form: SOLN, TID-Before Meals, Dosing Weight 93.295, kg, PRN Blood Glucose Results, Start date: 12/31/17 23:08:00 CDT, Duration: 30 day, Stop date: 01/30/18 23:07:00 CDT Notes: (Same as: Humalog ) Roll in palms of hands gently; Do not shake ` vigorously. "Single PatientUse Only " WASTE: F/P - Black; E - Municipal Trash Bin Stable for 28 days at room temperature.Expires in days from Date Start Date: 12/31/17 Stop Date: 01/02/18 Status: DiscontinuedKeflex 500 mg oral capsule 500 mg=1 cap, PO, TID, X 7 day, # 21 cap, 0 Refill(s) Start Date: 01/02/18 Stop Date: 01/09/18 Status: Orderedlatanoprost ophthalmic 1 drp, Route: Each Affected Eye, Bedtime, Drug form: SOLN, Start date: 01/01/18 21:00:00 CDT, Duration: 30 day, Stop date: 01/30/18 21:00:00 CDT Notes: Keep refrigerated. (Same as:Xalatan)Opened bottle may be stored at room temperature for 6 weeks Start Date: 01/01/18 Stop Date: 01/02/18 Status: Discontinuedmagnesium sulfate 2 gm, 50 mL, Route: IVPB, Drug form: INJ, Q2H, Dosing Weight 93.295, kg, Total dose=4 gm, Start date: 01/01/18 18:00:00 CDT, Duration: 2 doses or times, Stop date: 01/01/18 20:00:00 CDT Notes: WASTE: F/P - Sink; E - Municipal Trash Bin Start Date: 01/01/18 Stop Date: 01/01/18 Status: Completedmetoprolol tartrate 100 mg, 2 tab, Route: PO, Drug form: TAB, Q12H, Dosing Weight 93.295, kg, Start date: 01/01/18 21:00:00 CDT, Duration: 30 day, Stop date: 01/31/18 9:00:00 CDT Notes: (Same as: Lopressor) Start Date: 01/01/18 Stop Date: 01/02/18 Status: Discontinuedmorphine Sulfate 3 mg, 1.5 mL, Route: PO, Drug form: SOLN, Q4H, Dosing Weight 93.295, kg, PRN Pain Score 7-10, Start date: 12/31/17 23:07:00 CDT, Stop date: 01/30/18 23:06: 00 CDT Notes: (Same as:MORPhine Sulfate) Start Date: 12/31/17 Stop Date: 01/02/18 Status: DiscontinuedNS (Bolus) IV 1,000 mL, 1,000 ml/hr, Infuse Over: 1 hr, Route: IV, 1,000, Drug form: INJ, ONCE , Priority: STAT, Dosing Weight 93.295 kg, Start date: 01/01/18 5:48:00 CDT, Stop date: 01/01/18 5:48:00 CDT Start Date: 01/01/18 Stop Date: 01/01/18 Status: Completedondansetron 4 mg, 1 tab, Route: PO, Drug form: TABDIS, Q6H, Dosing Weight 93.295, kg, PRN Nausea & Vomiting,Start date: 12/31/17 23:07:00 CDT, Duration: 30 day, Stop date: 01/30/18 23:06:00 CDT Notes: (Same as: Zofran ODT) Start Date: 12/31/17 Stop Date: 01/02/18 Status: DiscontinuedProtonix 20 mg, 1 tab, Route: PO, Drug form: ECTAB, Before Lunch, Dosing Weight 93.295, kg, Start date: 01/01/18 11:30:00 CDT, Duration: 30 day, Stop date: 01/30/18 11: 30:00 CDT Notes: Tablet should not be chewed or crushed. Start Date: 01/01/18 Stop Date: 01/02/18 Status: DiscontinuedSaline Flush 0.9% 10 ml, Route: IVP, Drug Form: INJ, Dosing Weight 93.295, kg, PRN, PRN Line Flush , Start date: 12/31/17 23:07:00 CDT, Duration: 30 day, Stop date: 01/30/18 23:06 :00 CDT Notes: (Same as: BD Posiflush) Start Date: 12/31/17 Stop Date: 01/02/18 Status: DiscontinuedSodium Chloride 0.9% IV 1,000 mL 1,000 mL, Rate: 75 ml/hr, Infuse over: 13.3 hr, Route: IV, Dosing Weight 93.295 kg, Total Volume: 1,000, Start date: 12/31/17 23:07:00 CDT, Duration: 30 day, Stop date: 01/30/18 23:06:00 CDT, 2.19, m2 Start Date: 12/31/17 Stop Date: 01/02/18 Status: Discontinuedtimolol ophthalmic 1 drp, Route: BOTH EYES, Q12H, Drug form: SOLN, Start date: 01/01/18 21:00:00 CDT, Duration: 30 day,Stop date: 01/31/18 9:00:00 CDT Notes: (Same As: Timoptic, Betimol) Start Date: 01/01/18 Stop Date: 01/02/18 Status: DiscontinuedTravatan Z 0.004% ophthalmic solution 1 drp, Route: BOTH EYES, Drug Form: SOLN, Dosing Weight 93.295, kg, QPM, Start date: 01/01/18 17:00:00 CDT, Duration: 30 day, Stop date: 01/30/18 17:00:00 CDT Start Date: 01/01/18 Stop Date: 01/01/18 Status: DeletedTylenol with Codeine #3 oral tablet 1 tab, PO, Q6H, PRN Pain, X 5 day, # 20 tab, 0 Refill(s) Start Date: 01/02/18 Stop Date: 01/07/18 Status: Ordered Results ELECTROLYTES Most recent to oldest [Reference Range]: 1 2 Sodium Lvl [135-145 mEq/L] 143 mEq/L 144 mEq/L (01/02/18 3:35 AM) (01/01/18 12:05 AM) Potassium Lvl [3.5-5.1 mEq/L] 3.7 mEq/L 3.5 mEq/L (01/02/18 3:35 AM) (01/01/18 12:05 AM) Chloride Lvl [95-109 mEq/L] 106 mEq/L 104 mEq/L (01/02/18 3:35 AM) (01/01/18 12:05 AM) CO2 [24-32 mEq/L] 28 mEq/L 33 mEq/L (01/02/18 3:35 AM) *HI* (01/01/18 12:05 AM) AGAP [10.0-20.0 mEq/L] 12.7 mEq/L 10.5 mEq/L (01/02/18 3:35 AM) (01/01/18 12:05 AM) CHEM PANEL Most recent to oldest [Reference Range]: 1 2 Creatinine Lvl [0.50-1.40 mg/dL] 0.81 mg/dL 0.92 mg/dL (01/02/18 3:35 AM) (01/01/18 12:05 AM) eGFR 85 mL/min/1.73m2 1 80 mL/min/1.73m2 2 *NA* *NA* (01/02/18 3:35 AM) (01/01/18 12:05 AM) BUN [7-22 mg/dL] 12 mg/dL 18 mg/dL (01/02/18 3:35 AM) (01/01/18 12:05 AM) Glucose Lvl [70-99 mg/dL] 161 mg/dL 107 mg/dL *HI* *HI* (01/02/18 3:35 AM) (01/01/18 12:05 AM) Calcium Lvl [8.5-10.5 mg/dL] 7.7 mg/dL 8.2 mg/dL *LOW* *LOW* (01/02/18 3:35 AM) (01/01/18 12:05 AM) Magnesium Lvl [1.8-2.4 mg/dL] 2.2 mg/dL 1.4 mg/dL (01/02/18 3:35 AM) *LOW* (01/01/18 12:05 AM) 1Result Comment: The eGFR is calculated [...] eGFR should be multiplied by the estimated BMI.2Result Comment: The eGFR is calculated using the CKD-EPI formula. In most young, healthy individualsthe eGFR will be >90 mL/min/1.73m2. [...] eGFR should be multiplied by the estimated BMI.CARDIAC ENZYMES Most recent to oldest [Reference Range]: 1 2 BNP [<=100 pg/mL] 221 pg/mL *HI* (01/01/18 12:05 AM) URINE AND STOOL Most recent to oldest [Reference Range]: 1 2 UA Turbidity [Clear] Slight *ABN* (12/31/17 11:41 PM) UA Color [Yellow] Dark Yellow *NA* (12/31/17 11:41 PM) UA pH [5.0-8.0] 7.0 (12/31/17 11:41 PM) UA Spec Grav [<=1.030] 1.018 (12/31/17 11:41 PM) UA Glucose 150 mg/dL *NA* (12/31/17 11:41 PM) UA Blood [Negative] Moderate *ABN* (12/31/17 11:41 PM) UA Ketones Negative *NA* (12/31/17 11:41 PM) UA Protein [Negative mg/dL] >=300 mg/dL *ABN* (12/31/17 11:41 PM) UA Urobilinogen [0.1-1.0 mg/dL] 4.0 mg/dL *HI* (12/31/17 11:41 PM) UA Bili [Negative] Negative *NA* (12/31/17 11:41 PM) UA Leuk Est [Negative] Moderate *ABN* (12/31/17 11:41 PM) UA Nitrite [Negative] Negative (12/31/17 11:41 PM) UA WBC [0-5 /HPF] 72 /HPF *HI* (12/31/17 11:41 PM) UA RBC [0-2 /HPF] 85 /HPF *HI* (12/31/17 11:41 PM) UA Bacteria [None Seen /HPF] Few /HPF *NA* (12/31/17 11:41 PM) UA Sq Epi None Seen *NA* (12/31/17 11:41 PM) UA Mucus [None Seen /LPF] Few /LPF *NA* (12/31/17 11:41 PM) HEMATOLOGY Most recent to oldest [Reference Range]: 1 2 WBC [3.7-10.4 K/CMM] 9.7 K/CMM 10.3 K/CMM (01/02/18 3:35 AM) (01/01/18 12:05 AM) RBC [4.70-6.10 M/CMM] 3.93 M/CMM 4.35 M/CMM *LOW* *LOW* (01/02/18 3:35 AM) (01/01/18 12:05 AM) Hgb [14.0-18.0 g/dL] 12.0 g/dL 13.3 g/dL *LOW* *LOW* (01/02/18 3:35 AM) (01/01/18 12:05 AM) Hct [42.0-54.0 %] 35.4 % 39.3 % *LOW* *LOW* (01/02/18 3:35 AM) (01/01/18 12:05 AM) MCV [80.0-94.0 fL] 90.1 fL 90.5 fL (01/02/18 3:35 AM) (01/01/18 12:05 AM) MCH [27.0-31.0 pg] 30.6 pg 30.6 pg (01/02/18 3:35 AM) (01/01/18 12:05 AM) MCHC [32.0-36.0 g/dL] 34.0 g/dL 33.9 g/dL (01/02/18 3:35 AM) (01/01/18 12:05 AM) RDW [11.5-14.5 %] 14.0 % 14.3 % (01/02/18 3:35 AM) (01/01/18 12:05 AM) MPV [7.4-10.4 fL] 8.2 fL 8.2 fL (01/02/18 3:35 AM) (01/01/18 12:05 AM) Platelet [133-450 K/CMM] 247 K/CMM 271 K/CMM (01/02/18 3:35 AM) (01/01/18 12:05 AM) Segs [45.0-75.0 %] 66.9 % 66.9 % (01/02/18 3:35 AM) (01/01/18 12:05 AM) Lymphocytes [20.0-40.0 %] 19.1 % 18.8 % *LOW* *LOW* (01/02/18 3:35 AM) (01/01/18 12:05 AM) Monocytes [2.0-12.0 %] 8.2 % 7.8 % (01/02/18 3:35 AM) (01/01/18 12:05 AM) Eosinophils [0.0-4.0 %] 4.7 % 5.6 % *HI* *HI* (01/02/18 3:35 AM) (01/01/18 12:05 AM) Basophils [0.0-1.0 %] 1.1 % 0.9 % *HI* (01/01/18 12:05 AM) (01/02/18 3:35 AM) Segs-Bands # [1.5-8.1 K/CMM] 6.5 K/CMM 6.9 K/CMM (01/02/18 3:35 AM) (01/01/18 12:05 AM) Lymphocytes # [1.0-5.5 K/CMM] 1.9 K/CMM 1.9 K/CMM (01/02/18 3:35 AM) (01/01/18 12:05 AM) Monocytes # [0.0-0.8 K/CMM] 0.8 K/CMM 0.8 K/CMM (01/02/18 3:35 AM) (01/01/18 12:05 AM) Eosinophils # [0.0-0.5 K/CMM] 0.5 K/CMM 0.6 K/CMM (01/02/18 3:35 AM) *HI* (01/01/18 12:05 AM) Basophils # [0.0-0.2 K/CMM] 0.1 K/CMM 0.1 K/CMM (01/02/18 3:35 AM) (01/01/18 12:05 AM) Immunizations No data available for this section Procedures Procedure Date Related Diagnosis Body Site Status CABG - Coronary artery bypass graft1 Completed Cardiac catheterization2 Completed Carotid endarterectomy3 Completed Repair of diaphragmatic hiatal hernia4 Completed [id number] Grafts 21629Hkznu and left41 week ago Social History Social History Type Response Alcohol Past Smoking Status Former smoker; Exposure to Tobacco Smoke None; Cigarette Smoking Last 365 Days No; Reg Smoking Cessation Counseling No entered on: 12/31/17 Assessment and Plan No data available for this section
--- OUTSIDE RECORDS SUMMARY | 2018-02-07 00:50 | XMS REPORT | Summary of Care ---
:[address] [facility] Address [address] [place] [phone]- Encounter HQ Katharina(FIN) [id number] Date(s): 01/16/18 - 01/16/18 [facility] [address] [place] [phone] Attending Physician: Robbi Wasserman MD Referring Physician: Anderson Hernandez MD Vital Signs No data available for [...] Active Umbilical hernia(Confirmed) Active 1Data migrated from [employer] on 02/05/15.2Data migrated from [employer] on 02/05/15.3Data migrated from [employer] on 02/05/15. Allergies, Adverse Reactions, Alerts Substance Reaction Severity Status NKFA Active NKDA Active Medications No data available for this section Results No data available for this section Immunizations No data available for this section Procedures Procedure Date Related Diagnosis Body Site Status CABG - Coronary artery bypass graft1 Completed Cardiac catheterization2 Completed Carotid endarterectomy3 Completed Repair of diaphragmatic hiatal hernia4 Completed [id number] Grafts 20418Dkmpw and left41 week ago Social History Social History Type Response Alcohol Past Smoking Status Former smoker; Exposure to Tobacco Smoke None; Cigarette Smoking Last 365 Days No; Reg Smoking Cessation Counseling No entered on: 12/31/17 Assessment and Plan No data available for this section
--- OUTSIDE RECORDS SUMMARY | 2018-02-07 00:50 | XMS REPORT | Summary of Care ---
:1940 Author Organization [facility] Address [address] [place] [phone]- Encounter HQ Katharina(FIN) [id number] Date(s): 01/16/18 - 01/16/18 [facility] [address] [place] [phone] Attending Physician: Robbi Wasserman MD Referring Physician: [...] Active Umbilical hernia(Confirmed) Active 1Data migrated from [employer] on 02/05/15.2Data migrated from [employer] on 02/05/15.3Data migrated from [employer] on 02/05/15. Allergies, Adverse Reactions, Alerts Substance Reaction Severity Status NKFA Active NKDA Active Medications No data available for this section Results No data available for this section Immunizations No data available for this section Procedures Procedure Date Related Diagnosis Body Site Status CABG - Coronary artery bypass graft1 Completed Cardiac catheterization2 Completed Carotid endarterectomy3 Completed Repair of diaphragmatic hiatal hernia4 Completed [id number] Grafts 39330Aysle and left41 week ago Social History Social History Type Response Alcohol Past Smoking Status Former smoker; Exposure to Tobacco Smoke None; Cigarette Smoking Last 365 Days No; Reg Smoking Cessation Counseling No entered on: 12/31/17 Assessment and Plan No data available for this section
[2018-02-07] MEDS ORDERED: NA CHLORIDE 0.9% 2,000 ML ONE (01:51)
[2018-02-07 01:53] LABS: Absolute Lymphocytes (CBC) 1.7 K/uL (0.7-4.9); Absolute Monocytes 0.6 K/uL (0.1-1.3); Absolute Neutrophil 7.1 K/uL (1.8-8.0); Basophils % 0.9 % (0-1.3); Eosinophils % 2.9 % (0-4.4); Hematocrit 37.8 % (39.6-49.0); Lymphocytes % 17.6 % (15.3-44.8); MCH 30.5 pg (27.0-35.0); MCV 93.9 fL (80-100); Monocytes % 6.6 % (3.3-12.3); RBC Red Blood Cell Count 4.03 M/uL (4.33-5.43)
[2018-02-07 01:57] LABS: Protime INR 1.47
--- NOTE | 2018-02-07 03:16 | ER ---
Nurse's Notes [facility] Name: Abisai Salinas Age: 77 yrs Sex: Male : 1940 Arrival Date: 02/07/2018 Time: 00:52 Bed 14 Private MD: Diagnosis: Hematuria Presentation: 02/07 00:45 Presenting complaint: EMS states: EMS states they were called to [facility] ea staff reported patient got up and got his catheter caught and was complaining of excruciating pain. EMS reported facility nurse discontinued the catheter and placed new catheter. Pt reported pain relief after old catheter was removed and replaced. Transition of care: patient was not received from another setting of care. Onset of symptoms was February 07, 2018. Risk Assessment: Do you want to hurt yourself or someone else? Patient reports no desire to harm self or others. Initial Sepsis Screen: Does the patient meet any 2 criteria? No. Patient's initial sepsis screen is negative. Does the patient have a suspected source of infection? No. Patient's initial sepsis screen is negative. Care prior to arrival: None. 00:45 Method Of Arrival: EMS: [facility] ea 00:45 Acuity: BIB 3 ea Triage Assessment: 00:45 General: Appears in no apparent distress. Behavior is calm, cooperative, appropriate ea for age. Pain: Denies pain. EENT: No signs and/or symptoms were reported regarding the EENT system. Neuro: Level of Consciousness is awake, alert, obeys commands, Oriented to person, place, time, situation. Cardiovascular: Patient's skin is warm and dry. Respiratory: Airway is patent Respiratory effort is even, unlabored, Respiratory pattern is regular, symmetrical. GI: No signs and/or symptoms were reported involving the gastrointestinal system. : Ash in place to gravity drainage red tinged urine noted in tubing, pt reports he is not in pain. Derm: Skin is pink, warm \T\ dry. Musculoskeletal: No signs and/or symptoms reported regarding the musculoskeletal system. Historical: - Allergies: : No Known Allergies; ea - Home Meds: : Combigan 0.2-0.5 % ophthalmic drop 1 drop every 12 hours [Active]; Bactrim DS 800-160 ea mg Oral tab 1 tab once daily [Active]; finasteride 5 mg oral tab 1 tab once daily [Active]; Lotrisone 1-0.05 % topical crea 2 times per day [Active]; lisinopril 20 mg Oral tab 1 tab once daily [Active]; amlodipine 5 mg tab 1 tab once daily [Active]; Farxiga 5 mg oral tab 1 tab once daily [Active]; atorvastatin 40 mg oral tab [Active]; glipizide 10 mg Oral tab 1 tab 2 times per day [Active]; metformin 1,000 mg Oral tab 1 tab 2 times per day [Active]; Eliquis 5 mg oral tab 1 tab 2 times per day [Active]; pantoprazole 20 mg oral TbEC 1 tab once daily [Active]; metoprolol tartrate 100 mg Oral tab 1 tab 2 times per day [Active]; docusate sodium 100 mg Oral tab 1 tab 2 times per day [Active]; - PMHx: 01:08 Hyperlipidemia; GERD; retention of urine; lack of coordination; ea - Immunization history:: Adult Immunizations up to date. - Social history:: Smoking status: Patient/guardian denies using tobacco. - Ebola Screening: : No symptoms or risks identified at this time. Screenin:13 Abuse screen: Denies threats or abuse. Nutritional screening: No deficits noted. ea Tuberculosis screening: No symptoms or risk factors identified. Fall Risk None identified. Assessment: 02:30 Reassessment: Patient and/or family updated on plan of care and expected duration. Pain ea level reassessed. Patient is alert, oriented x 3, equal unlabored respirations, skin warm/dry/pink. [address] Ash inserted, pt tolerated well, Ash to bedside drain, bladder irrigation completed, urine in tubing clear. Pt denies pain at this time. Patient states feeling better. Patient states symptoms have improved. 04:04 Reassessment: Patient and/or family updated on plan of care and expected duration. Pain ea level reassessed. Patient is alert, oriented x 3, equal unlabored respirations, skin warm/dry/pink. Ash to BSD with clear drainage in tubing, pt tolerating well. Discharge instructions given to patient and family. , both verbalized the understanding of instructions. Patient states feeling better. Patient states symptoms have improved. Vital Signs: 00:45 BP 126 / 86; Pulse 62; Resp 18; Temp 97.9(O); Pulse Ox 97% ; Weight 86.18 kg; Height 6 ea ft. (182.88 cm); Pain 3/10; 01:23 BP 110 / 66; Pulse 64; Resp 16; Pulse Ox 96% on R/A; mw2 02:30 BP 107 / 49; Pulse 72; Resp 18; Pulse Ox 98% ; Pain 0/10; ea 03:55 BP 109 / 62; Pulse 70; Resp 18; Temp 97.7(O); Pulse Ox 98% on R/A; Pain 0/10; ea 00:45 Body Mass Index 25.77 (86.18 kg, 182.88 cm) ea ED Course: 00:45 Arm band placed on right wrist. ea 00:52 Patient arrived in ED. ea 00:55 Blake Chambers NP is PHCP. pm1 00:55 Eduin Meade MD is Attending Physician. pm1 00:59 Triage completed. ea 01:13 Patient has correct armband on for positive identification. Bed in low position. Call ea light in reach. Side rails up X2. 01:29 CBC with Diff Sent. tl2 01:29 PT-INR Sent. tl2 01:29 Ptt, Activated Sent. tl2 01:31 Meeta Schmid, MICHI is Primary Nurse. ea 02:30 3-way catheter inserted, using sterile technique, 16 Fr. ea 03:15 Iris Nazario MD is Referral Physician. pm1 03:55 No provider procedures requiring assistance completed. Patient did not have IV access ea during this emergency room visit. Administered Medications: No medications were administered Outcome: 03:15 Discharge ordered by MD. pm1 03:55 Discharged to half-way. Report called to Receiving nurse at [facility] ea 03:55 Condition: improved 03:55 Discharge instructions given to patient, significant other, Instructed on discharge instructions, follow up and referral plans. Demonstrated understanding of instructions, follow-up care. 04:06 Patient left the ED. ea Signatures: Blake Chambers NP MANAGER BEHAVIORAL pm1 Marcy Mack RN RN tl2 Meeta Schmid RN RN ea Mino Dougherty mw2 Corrections: (The following items were deleted from the chart) 03:10 03:00 Reassessment: Patient and/or family updated on plan of care and expected ea duration. Pain level reassessed. Patient is alert, oriented x 3, equal unlabored respirations, skin warm/dry/pink. [address] Ash inserted, pt tolerated well, Ash to bedside drain, bladder irrigation completed, urine in tubing clear. Pt denies pain at this time. Patient states feeling better. Patient states symptoms have improved. fauzia 03:13 03:10 3-way catheter inserted, using sterile technique, 16 Fr. ea fauzia
--- NOTE | 2018-02-07 03:16 | EDPHYS ---
Physician Documentation [facility] Name: Abisai Salinas Age: 77 yrs Sex: Male : 1940 Arrival Date: 02/07/2018 Time: 00:52 Bed 14 Private MD: ED Physician Eduin Meade HPI: 02/07 02:00 This 77 yrs old Male presents to ER via EMS with complaints of Blood In pm1 Catheter. 02:00 The patient presents with urinary symptoms, hematuria. pm1 02:00 Onset: The symptoms/episode began/occurred today. Associated signs and symptoms: pm1 Pertinent negatives: abdominal pain, diarrhea, fever, nausea, vomiting. Severity of symptoms: in the emergency department the symptoms. Patient at [facility] for rehabilitation. Patient was admitted to the hospital about 6 weeks ago for bladder perforation due to hernia repair. Patient reports noticing that urine was not draining and he started feeling some pain. Urine started flowing but he noticed blood in the He bag. Historical: - Allergies: 01:08 No Known Allergies; ea - Home Meds: :08 Combigan 0.2-0.5 % ophthalmic drop 1 drop every 12 hours [Active]; Bactrim DS 800-160 ea mg Oral tab 1 tab once daily [Active]; finasteride 5 mg oral tab 1 tab once daily [Active]; Lotrisone 1-0.05 % topical crea 2 times per day [Active]; lisinopril 20 mg Oral tab 1 tab once daily [Active]; amlodipine 5 mg tab 1 tab once daily [Active]; Farxiga 5 mg oral tab 1 tab once daily [Active]; atorvastatin 40 mg oral tab [Active]; glipizide 10 mg Oral tab 1 tab 2 times per day [Active]; metformin 1,000 mg Oral tab 1 tab 2 times per day [Active]; Eliquis 5 mg oral tab 1 tab 2 times per day [Active]; pantoprazole 20 mg oral TbEC 1 tab once daily [Active]; metoprolol tartrate 100 mg Oral tab 1 tab 2 times per day [Active]; docusate sodium 100 mg Oral tab 1 tab 2 times per day [Active]; - PMHx: 01:08 Hyperlipidemia; GERD; retention of urine; lack of coordination; ea - Immunization history:: Adult Immunizations up to date. - Social history:: Smoking status: Patient/guardian denies using tobacco. - Ebola Screening: : No symptoms or risks identified at this time. ROS: 02:00 Constitutional: Negative for fever, chills, and weight loss, Eyes: Negative for injury, pm1 pain, redness, and discharge, ENT: Negative for injury, pain, and discharge, Neck: Negative for injury, pain, and swelling, Cardiovascular: Negative for chest pain, palpitations, and edema, Respiratory: Negative for shortness of breath, cough, wheezing, and pleuritic chest pain. 02:00 Back: Negative for injury and pain. 02:00 MS/Extremity: Negative for injury and deformity, Skin: Negative for injury, rash, and discoloration, Neuro: Negative for headache, weakness, numbness, tingling, and seizure. 02:00 Abdomen/GI: Positive for abdominal pain, resolved, Negative for nausea, vomiting, and diarrhea. 02:00 : Positive for hematuria, Negative for flank pain. Exam: 02:00 Constitutional: This is a well developed, well nourished patient who is awake, alert, pm1 and in no acute distress. Head/Face: Normocephalic, atraumatic. Eyes: Pupils equal round and reactive to light, extra-ocular motions intact. Lids and lashes normal. Conjunctiva and sclera are non-icteric and not injected. Cornea within normal limits. Periorbital areas with no swelling, redness, or edema. ENT: Nares patent. No nasal discharge, no septal abnormalities noted. Tympanic membranes are normal and external auditory canals are clear. Oropharynx with no redness, swelling, or masses, exudates, or evidence of obstruction, uvula midline. Mucous membranes moist. Neck: Trachea midline, no thyromegaly or masses palpated, and no cervical lymphadenopathy. Supple, full range of motion without nuchal rigidity, or vertebral point tenderness. No Meningismus. Chest/axilla: Normal chest wall appearance and motion. Nontender with no deformity. No lesions are appreciated. Cardiovascular: Regular rate and rhythm with a normal S1 and S2. No gallops, murmurs, or rubs. No pulse deficits. Respiratory: Lungs have equal breath sounds bilaterally, clear to auscultation and percussion. No rales, rhonchi or wheezes noted. No increased work of breathing, no retractions or nasal flaring. 02:00 Back: No spinal tenderness. No costovertebral tenderness. Full range of motion. 02:00 Skin: Warm, dry with normal turgor. Normal color with no rashes, no lesions, and no evidence of cellulitis. MS/ Extremity: Pulses equal, no cyanosis. Neurovascular intact. Full, normal range of motion. 02:00 Abdomen/GI: Inspection: abdomen appears normal, Bowel sounds: normal, Palpation: abdomen is soft and non-tender, in all quadrants. 02:00 : Male external genitalia: he catheter in place, Bladder: is normal, non-distended, non-tender, Gross hematuria present in he bag. 02:00 Neuro: Orientation: is normal, appropriate for stated age, Mentation: is normal, Motor: is normal, moves all fours. Vital Signs: 00:45 BP 126 / 86; Pulse 62; Resp 18; Temp 97.9(O); Pulse Ox 97% ; Weight 86.18 kg; Height 6 ea ft. (182.88 cm); Pain 3/10; 01:23 BP 110 / 66; Pulse 64; Resp 16; Pulse Ox 96% on R/A; mw2 02:30 BP 107 / 49; Pulse 72; Resp 18; Pulse Ox 98% ; Pain 0/10; ea 03:55 BP 109 / 62; Pulse 70; Resp 18; Temp 97.7(O); Pulse Ox 98% on R/A; Pain 0/10; ea 00:45 Body Mass Index 25.77 (86.18 kg, 182.88 cm) ea MDM: 00:57 Patient medically screened. pm1 03:07 Data reviewed: vital signs. ED course: Patient irrigation with three way he. No pm1 blood noted in he tube.. 03:14 Counseling: I had a detailed discussion with the patient and/or guardian regarding: the pm1 historical points, exam findings, and any diagnostic results supporting the discharge/admit diagnosis, lab results, the need for outpatient follow up, a urologist, to return to the emergency department if symptoms worsen or persist or if there are any questions or concerns that arise at home. 02/07 01:12 Order name: CBC with Diff; Complete Time: 02:04 pm1 02/07 01:12 Order name: PT-INR; Complete Time: 02:04 pm1 02/07 01:12 Order name: Ptt, Activated; Complete Time: 02:04 pm1 02/07 01:12 Order name: Bladder Irrigation; Complete Time: 02:59 pm1 02/07 01:12 Order name: He-Three way; Complete Time: 02:59 pm1 Administered Medications: No medications were administered Disposition: 06:07 Co-signature as Attending Physician, Eduin Meade MD I agree with the assessment and tw4 plan of care. Disposition: 02/07/18 03:15 Discharged to Home. Impression: Hematuria. - Condition is Stable. - Discharge Instructions: He Catheter Care, Adult, Hematuria, Adult. - Medication Reconciliation Form, Thank You Letter form. - Follow up: Emergency Department; When: As needed; Reason: Worsening of condition. Follow up: Iris Nazario MD; When: 2 - 3 days; Reason: Recheck today's complaints, Continuance of care, Re-evaluation by your physician. - Problem is new. - Symptoms have improved. Signatures: Dispatcher [employer] EDMS Blake Chambers, RN LIAISON RN LIAISON pm1 Meeta Schmid, RN RN Eduin De Santiago MD MD tw4 Corrections: (The following items were deleted from the chart) 04:06 03:15 02/07/2018 03:15 Discharged to Home. Impression: Hematuria. Condition is Stable. ea Forms are Medication Reconciliation Form, Thank You Letter, Antibiotic Education, Prescription Opioid Use. Follow up: Emergency Department; When: As needed; Reason: Worsening of condition. Follow up: Iris Nazario; When: 2 - 3 days; Reason: Recheck today's complaints, Continuance of care, Re-evaluation by your physician. Problem is new. Symptoms have improved. pm1
== END 2018-02-07 04:06 | disposition home or self-care (01) ==
LOC: ER 00:44 → MERGE 00:44 → ER 04:06
DX: R31.9 Hematuria, unspecified (principal); E78.5 Hyperlipidemia, unspecified; K21.9 Gastro-esophageal reflux disease without esophagitis; Z79.02 Long term (current) use of antithrombotics/antiplatelets
CPT/HCPCS: 36415; 85025; 85610; 85730; 99283; J7030

== ENCOUNTER 2018-03-01 15:54 | Emergency (ER) | payer OTHER, MEDICARE ==
--- OUTSIDE RECORDS SUMMARY | 2018-03-01 15:58 | XMS REPORT | Summary of Care ---
:1940 Author Organization [facility] [place] Address [address] [place] [address]- Encounter HQ Candyntr_edel(BRUCE) [id number] Date(s): 02/24/18 - 02/24/18 [facility] [place] [address] [place], [place] [address] [phone] Discharge Disposition: Home or Self Care Attending Physician: Robbi Wasserman MD Referring Physician: Anderson Hernandez MD Vital Signs Most recent to oldest [Reference Range]: 1 Height 182.88 cm (02/24/18 10:01 AM) Blood Pressure [90-140/60-90 mmHg] 115/74 mmHg (02/24/18 10:01 AM) Peripheral Pulse Rate [60-100 bpm] 80 bpm (02/24/18 10:01 AM) Weight 84.091 kg (02/24/18 10:01 AM) Body Mass Index 25.14 m2 (02/24/18 10:01 AM) Problem List Condition Effective Dates Status [...] Severity Status NKFA Active NKDA Active Medications Cipro 250 mg oral tablet 250 mg=1 tab, PO, Q12H, X 7 day, # 14 tab, 0 Refill(s), Pharmacy: [id number] Start Date: 02/24/18 Stop Date: 03/03/18 Status: Ordered Results No data available for this section Immunizations No data available for this section Procedures Procedure Date Related Diagnosis Body Site Status Measurement of post-voiding residual 02/24/18 Completed urine and/or bladder capacity by ultrasound, non-imaging CABG - Coronary artery bypass graft1 Completed Cardiac catheterization2 Completed Carotid endarterectomy3 Completed Repair of diaphragmatic hiatal hernia4 Completed [id number] Grafts [id number] and left41 week ago Social History Social History Type Response Alcohol Past Smoking Status Former smoker; Exposure to Tobacco Smoke None; Cigarette Smoking Last 365 Days No; Reg Smoking Cessation Counseling No entered on: 02/24/18 Assessment and Plan No data available for this section
--- OUTSIDE RECORDS SUMMARY | 2018-03-01 15:58 | XMS REPORT | Continuity of Care Document ---
:1940 Author Organization Interface Problems Problem Status Onset Classification Date Comments Source Date Reported INJURY OF URETER Active 018 [facility] AMS, UTI, KIDNEY Active MH INJURY 018 [facility] 24339-25, [address] Active BILATERAL UMBILICAL 018 [facility] Chest pain<sup>1</sup> Active Problem 02/27/2018 [facility] 013 migrated Group, from [facility] on 02/05/15. Carotid Active Problem 02/27/2018 Medical atherosclerosis Group,Formerly named [facility] Coronary Active Problem 02/27/2018 [facility] arteriosclerosis<sup>2 migrated Group, </sup> from [facility] on 02/05/15. Diabetes mellitus Active Problem 02/27/2018 Medical Group,Formerly named [facility] Hyperlipidemia Active Problem 02/27/2018 Medical Group,Formerly named [facility] Hypertensive Active Problem 02/27/2018 [facility] disorder<sup>3</sup> migrated Group, from [facility] on 02/05/15. Mitral regurgitation Active Problem 02/27/2018 Medical Group,Formerly named [facility] Nonspecific ST-T wave Active Problem 02/27/2018 Medical electrocardiographic Group, changes [facility] Persistent atrial Active Problem 02/27/2018 Medical fibrillation Group,Formerly named [facility] Tricuspid Active Problem 02/27/2018 Medical regurgitation Group,Formerly named [facility] CAD (<span Active Problem 02/27/2018 Medical ID="[id number]">Conf Group, irmed</span>) [facility] Hernia, femoral, Active Problem 02/27/2018 Medical bilateral Group,Formerly named [facility] Reflux esophagitis Active Problem 02/27/2018 Medical Group,Formerly named [facility] Glaucoma Active Problem 02/27/2018 Medical Group,Formerly named [facility] Hypertension Active Problem 02/27/2018 Medical Group,Formerly named [facility] Umbilical hernia Active Problem 02/27/2018 Medical Group,Formerly named [facility] Unspecified injury of 01/05/2018 ureter, initial [facility] encounter [facility] UNSPECIFIED INJURY OF Active URETER, INITIAL EN [facility] ALTERED MENTAL STATUS, Active UNSPECIFIED [facility] AMS/ UTI/ DIRECT ADMIT Active Formerly named [facility] Medications Medication Details Route Status Patient Ordering Order Source Instructions Provider Date Ciprofloxacin
250 mg=1 Active 02/24[facility] 250 MG Oral tab, PO, Q12H, X 2018 Medical Tablet [Cipro] 7 day, # 14 tab, Group 0 Refill(s), Pharmacy: [facility] [id number] Eliquis
5 mg, 1 Inactive 01/02[facility] tab, Route: PO, 2018 [facility] Drug form: TAB, City BID, Dosing Weight 93.295, kg, Start date: 01/02/18 17:00:00 CDT, Duration: 30 day, Stop date: 02/01/18 9:00:00 CDT
Notes: Same as: Eliquis Acetaminophen
1 tab, PO, Active 300 MG / Codeine Q6H, PRN Pain, X 2018 [facility] Phosphate 30 MG 5 day, # 20 tab, City Oral Tablet 0 Refill(s) [Tylenol with Codeine #3] Hydrocortisone 5
1 appl, Active MG/ML Topical TOP, BID, PRN 2017 [facility] Cream Rash, 0 [facility] Refill(s) Cephalexin 500
500 mg=1 Active 01/02[facility] MG Oral Capsule cap, PO, TID, X 2018 [facility] [Keflex] 7 day, # 21 cap, City 0 Refill(s) Hydrocortisone 5
1 appl, Inactive 01/02[facility] MG/ML Topical Route: TOP, BID, 2018 [facility] Cream Drug form: CRM, City PRN Rash, Start date: 01/02/18 10:55:00 CDT, Duration: 30 day, Stop date: 02/01/18 10:54:00 CDT Brimonidine
1 drp, Inactive tartrate 2 MG/ML Route: BOTH 2017 [facility] / Timolol 5 EYES, Q12H, Drug [facility] MG/ML Ophthalmic form: SOLN, Solution Start date: [Combigan] 01/01/18 21:00:00 CDT, Duration: 30 day, Stop date: 01/31/18 9:00:00 CDT timolol
1 drp, No Longer ophthalmic Route: BOTH Active [address] [place] [address] EYES, Q12H, Drug City form: SOLN, Start date: 01/01/18 21:00:00 CDT, Duration: 30 day, Stop date: 01/31/18 9:00:00 CDT
Notes: (Same As: Timoptic, Betimol) metoprolol
100 mg, 2 No Longer tartrate tab, Route: PO, Active 2017 [facility] Drug form: TAB, City Q12H, Dosing Weight 93.295, kg, Start date: 01/01/18 21:00:00 CDT, Duration: 30 day, Stop date: 01/31/18 9:00:00 CDT
Notes: (Same as: Lopressor) brimonidine
1 drp, No Longer ophthalmic Route: BOTH Active 2017 [facility] EYES, Q12H, Drug City form: SOLN, Start date: 01/01/18 21:00:00 CDT, Duration: 30 day, Stop date: 01/31/18 9:00:00 CDT
Notes: (Same As: Alphagan) latanoprost
1 drp, No Longer ophthalmic Route: Each Active 2017 [facility] Eye, [facility] Bedtime, Drug form: SOLN, Start date: 01/01/18 21:00:00 CDT, Duration: 30 day, Stop date: 01/30/18 21:00:00 CDT
Notes: Keep refrigerated. (Same as:Xalatan) Opened bottle may be stored at room temperature for 6 weeks Magnesium
2 gm, 50 Inactive Sulfate mL, Route: IVPB, 2017 [facility] Drug form: INJ, [facility] Q2H, Dosing Weight 93.295, kg, Total dose=4 gm, Start date: 01/01/18 18:00:00 CDT, Duration: 2 doses or times, Stop date: 01/01/18 20:00:00 CDT
Notes: WASTE: F/P - Sink; E - Municipal Trash Bin travoprost 0.04
1 drp, Inactive MG/ML Ophthalmic Route: BOTH 2017 [facility] EYES, Drug Form: [facility] [Travatan] SOLN, Dosing Weight 93.295, kg, QPM, Start date: 01/01/18 17:00:00 CDT, Duration: 30 day, Stop date: 01/30/18 17:00:00 CDT Protonix
20 mg, 1 No Longer tab, Route: PO, Active 2017 [facility] Drug form: [facility] ECTAB, Before Lunch, Dosing Weight 93.295, kg, Start date: 01/01/18 11:30:00 CDT, Duration: 30 day, Stop date: 01/30/18 11:30:00 CDT
Notes: Tablet should not be chewed or crushed. Docusate
100 mg, 1 No Longer cap, Route: PO, Active 2017 [facility] Drug form: CAP, [facility] BID, Dosing Weight 93.295, kg, Start date: 01/01/18 9:00:00 CDT, Duration: 30 day, Stop date: 01/30/18 17:00:00 CDT
Notes: (Same as: Colace) (Do Not Crush) albumin human
25 gm, 100 Inactive 25% intravenous mL, Route: IVPB, 2017 [facility] solution Drug form: INJ, City ONCE, Dosing Weight 93.295, kg, Start date: 01/01/18 5:48:00 CDT, Stop date: 01/01/18 5:48:00 CDT
Notes: LOT#: Mfg: ____ WASTE: F/P - Red; E -Red (Same as: Albuminar) "blood product derivative" NS (Bolus) IV
1,000 mL, Inactive 1,000 ml/hr, 2017 [facility] Infuse Over: 1 City hr, Route: IV, 1,000, Drug form: INJ, ONCE, Priority: STAT, Dosing Weight 93.295 kg, Start date: 01/01/18 5:48:00 CDT, Stop date: 01/01/18 5:48:00 CDT Ceftriaxone
1 gm, No Longer Route: IVPB, Active [address] [place] [address] [id number], Dosing City Weight 93.295, kg, Start date: 01/01/18 0:00:00 CDT, Duration: 3 day, Stop date: 01/03/18 0:00:00 CDT, ABX Indication: Urinary Tract Infection
No jasmete: (Same As: Rocephin). Use with 100 mL NS and infuse over 30 min MEDICATION WASTE Product Size: 1000 mg Product Wasted: ___ mg Insulin Lispro
2 unit, No Longer 0.02 mL, Route: Active [address] [place] [address] SUB-Q, Drug City form: SOLN, TID-Before Meals, Dosing Weight 93.295, kg, PRN Blood Glucose Results, Start date: 12/31/17 23:08:00 CDT, Duration: 30 day, Stop date: 01/30/18 23:07:00 CDT
Notes: (Same as: Humalog ) Roll in palms of hands gently; Do not shake `vigorously. "Single Patient Use Only " WASTE: F/P - Black; E - Municipal Trash Bin Stable for 28 days at room temperature. Expires in days from Da te Dextrose 50%
12.5 gm, 25 No Longer Syringe mL, Route: IVP, [address] Drug Form: INJ, [facility] Dosing Weight 93.295, kg, PRN, PRN Blood Glucose Results, Start date: 12/31/17 23:08:00 CDT, Duration: 30 day, Stop date: 01/30/18 23:07:00 CDT Glucagon
1 mg, No Longer Route: IM, Drug [address] form: PDR/INJ, [facility] PRN, Dosing Weight 93.295, kg, PRN Blood Glucose Results, Start date: 12/31/17 23:08:00 CDT, Duration: 30 day, Stop date: 01/30/18 23:07:00 CDT Saline Flush
10 ml, No Longer 0.9% Route: IVP, Drug Active 2017 [facility] Form: INJ, [facility] Dosing Weight 93.295, kg, PRN, PRN Line Flush, Start date: 12/31/17 23:07:00 CDT, Duration: 30 day, Stop date: 01/30/18 23:06:00 CDT
Notes: (Same as: BD Posiflush) Ondansetron
4 mg, 1 No Longer tab, Route: PO, Active 2017 [facility] Drug form: City TABDIS, Q6H, Dosing Weight 93.295, kg, PRN Nausea & Vomiting, Start date: 12/31/17 23:07:00 CDT, Duration: 30 day, Stop date: 01/30/18 23:06:00 CDT
Notes: (Same as: Zofran ODT) Morphine
3 mg, 1.5 No Longer mL, Route: PO, Active 2017 [facility] Drug form: SOLN, [facility] Q4H, Dosing Weight 93.295, kg, PRN Pain Score 7-10, Start date: 12/31/17 23:07:00 CDT, Stop date: 01/30/18 23:06:00 CDT
Notes: (Same as:MORPhine Sulfate) Acetaminophen
650 mg, 2 No Longer tab, Route: PO, Active 2017 [facility] Drug form: TAB, City Q4H, Dosing Weight 93.295, kg, PRN Pain 1-3/Temp > 100.4 F, Start date: 12/31/17 23:07:00 CDT, Duration: 30 day, Stop date: 01/30/18 23:06:00 CDT
Notes : Do not exceed 4 gm/day. (Same as: Tylenol) Acetaminophen
1 tab, No Longer 325 MG / Route: PO, Drug Active 2017 [facility] Hydrocodone Form: TAB, [facility] Bitartrate 5 MG Dosing Weight Oral Tablet 93.295, kg, Q4H, PRN Pain Score 4-6, Start date: 12/31/17 23:07:00 CDT, Duration: 30 day, Stop date: 01/30/18 23:06:00 CDT
Notes: (Same as: [place] 325/5) Do not exceed 4gm/day of acetaminophen. Sodium Chloride
1,000 mL, No Longer 0.9% IV 1,000 mL Rate: 75 ml/hr, Active 2017 [facility] Infuse over: [facility] 13.3 hr, Route: IV, Dosing Weight 93.295 kg, Total Volume: 1,000, Start date: 12/31/17 23:07:00 CDT, Duration: 30 day, Stop date: 01/30/18 23:06:00 CDT, 2.19, m2 glycopyrrolate
Route: IV, Inactive (ANES) Drug form: INJ, 2017 [facility] ONCE, Stop date: [facility] 12/23/17 16:01:00 CDT neostigmine
Route: IV, Inactive (ANES) Drug form: INJ, 2017 [facility] ONCE, Stop date: [facility] 12/23/17 16:01:00 CDT ondansetron
Route: IV, Inactive (ANES) Drug form: INJ, 2017 [facility] ONCE, Stop date: [facility] 12/23/17 15:52:00 CDT Hydralazine
10 mg, Inactive Route: IVP, 2017 [facility] Q20Min, Dosing [facility] Weight 84.091, kg, PRN Elevated BP, Start date: 12/23/17 14:45:00 CDT, Duration: 2 doses or times, Stop date: Limited # of times Ondansetron
4 mg, Inactive Route: IVP, 2017 [facility] ONCE, Dosing [facility] Weight 84.091, kg, PRN Nausea & Vomiting, Start date: 12/23/17 14:45:00 CDT Morphine
2 mg, Inactive Route: IVP, 2017 [facility] Q5Min, Dosing [facility] Weight 84.091, kg, PRN Pain Score 4-6, Start date: 12/23/17 14:45:00 CDT, Duration: 5 doses or times, Stop date: Limited # of times Naloxone
0.4 mg, Inactive Route: IVP, [address] [place] [address] Q2MIN, Dosing [facility] Weight 84.091, kg, PRN Narcotic Reversal, Start date: 12/23/17 14:45:00 CDT, Duration: 8 doses or times, Stop date: Limited # of times Flumazenil
0.2 mg, Inactive Route: IVP, PRN, 2017 [facility] Dosing Weight City 84.091, kg, PRN Benzodiazepine Reversal, Initial dose, Start date: 12/23/17 14:45:00 CDT, Duration: 30 day, Stop date: 01/22/18 14:44:00 CDT Hydromorphone
0.5 mg, Inactive Route: IVP, 2017 [facility] Q5Min, Dosing [facility] Weight 84.091, kg, PRN Pain Score 7-10, Start date: 12/23/17 14:45:00 CDT, Duration: 4 doses or times, Stop date: Limited # of times rocuronium
Route: IV, Inactive (ANES) Drug form: INJ, 2017 [facility] ONCE, Stop date: [facility] 12/23/17 14:22:00 CDT fentaNYL (ANES)
Route: IV, Inactive Drug form: INJ, 2017 [facility] ONCE, Stop date: [facility] 12/23/17 14:17:00 CDT lidocaine (ANES)
Route: IV, Inactive Drug form: INJ, 2017 [facility] ONCE, Stop date: [facility] 12/23/17 14:17:00 CDT propofol (ANES)
Route: IV, Inactive Drug form: INJ, 2017 [facility] ONCE, Stop date: [facility] 12/23/17 14:17:00 CDT ePHEDrine (ANES)
Route: IV, Inactive Drug form: INJ, 2017 [facility] ONCE, Stop date: [facility] 12/23/17 14:02:00 CDT ceFAZolin (ANES)
Route: IV, Inactive Drug form: INJ, 2017 [facility] ONCE, Stop date: [facility] 12/23/17 14:02:00 CDT acetaminophen
Route: IV, Inactive (ANES) 10 mg Drug form: INJ, [address] [place] [address] Start date: [facility] 12/23/17 13:24:00 CDT, Stop date: 12/23/17 14:24:00 CDT Lactated Ringers
Route: IV, Inactive Injection IV Total Volume: [address] [place] [address] (ANES) 1000 mL 1,000, Start City date: 12/23/17 13:12:00 CDT, Stop date: 12/23/17 14:12:00 CDT Lidocaine
0.5 mL, Inactive Hydrochloride 10 Route: [address] [place] [address] MG/ML Injectable INTRADERM, [facility] Solution Dosing Weight 84.091, kg, ONCALL, Start date: 12/23/17 11:00:00 CDT, Duration: 1 doses or times Sodium Chloride
1,000 mL, Inactive 0.9% IV 1000 mL Rate: 25 ml/hr, [address] [place] [address] Infuse over: 40 City hr, Route: IV, Dosing Weight 84.091 kg, Total Volume: 1,000, Start date: 12/23/17 10:33:00 CDT, Duration: 30 day, Stop date: 01/22/18 10:32:00 CDT, 2.06, m2 Ancef + sterile
2 gm, Inactive water 20 mL Route: IVPB, [address] [place] [address] ONCE, Dosing City Weight 84.091, kg, Start date: 12/23/17 10:33:00 CDT, Stop date: 12/23/17 10:33:00 CDT, ABX Indication: Surgical Prophylaxis
Notes: (Same As: Deanne Butler) MEDICATION WASTE Product Size: 1000 mg Product Wasted: ___ mg dapagliflozin
5 mg=1 tab, Active propanediol 5 MG PO, Daily, 0 2017 Medical Oral Tablet Refill(s) Group [Farxiga] atorvastatin 40
40 mg=1 No Longer mg oral tablet tab, PO, Daily, Active 2017 Medical 0 Refill(s) Group apixaban 5 MG
5 mg=1 tab, Active Oral Tablet PO, BID, # 180 2016 Medical [Eliquis] tab, 1 Group Refill(s), Pharmacy: [facility] [id number] Allergies, Adverse Reactions, Alerts Substance Category Reaction Severity Reaction Status Date Comments Source type Reported NKDA Assertion Drug Active allergy Medical Group NKFA Assertion Food Active allergy Medical Group Immunizations Immunization Date Given Site Status Last Updated Comments Source Results Order Name Results Value Reference Date Interpretation Comments Source Range CHEM PANEL Magnesium 2.2 mg/dL 1.8 - 2.4 01/02 Lvl [facility] ELECTROLYTE AGAP 12.7 meq/L 10.0 - 01/02 S 20.0 [facility] ELECTROLYTE CO2 28 meq/L 24 - 32 01/02 [facility] ELECTROLYTE Calcium Lvl 7.7 mg/dL 8.5 - 10.5 01/02 [facility] ELECTROLYTE BUN 12 mg/dL 7 - 22 01/02 [facility] ELECTROLYTE Sodium Lvl 143 meq/L 135 - 145 01/02 [facility] ELECTROLYTE Chloride Lvl 106 meq/L 95 - 109 01/02 [facility] ELECTROLYTE Potassium 3.7 meq/L 3.5 - 5.1 01/02 [facility] Lvl [facility] ELECTROLYTE eGFR 85 01/02 Result Comment: The eGFR is calculated using the CKD-EPI formula. In most young, healthy individuals the eGFR will be >90 mL/ min/1.73m2. The eGFR declines with age. An eGFR of 60-89 may be normal in mL/min/1.7 /2017 some populations, particularly the elderly, for whom the CKD-EPI formula has not been extensively validated. Use of the eGFR is not recommended in the following populations: [address] Individuals with unstable creatinine concentrations, including patients and those with serious co-morbid conditions. Patients with extremes in muscle mass or diet. The data above are obtained from the National Kidney Disease Education Program (NKDEP) which additionally recommends that when the eGFR is used in patients with extremes of body mass index for purposes of drug dosing, the eGFR should be multiplied by the estimated BMI. ELECTROLYTE Glucose Lvl 161 mg/dL 70 - 99 01/02 [facility] ELECTROLYTE Creatinine 0.81 mg/dL 0.50 - 01/02 S Lvl 1.40 /2017 [facility] HEMATOLOGY MPV 8.2 fL 7.4 - 10.4 01/02 [facility] HEMATOLOGY Platelet 247 K/CMM 133 - 450 01/02 [facility] HEMATOLOGY RDW 14.0 % 11.5 - 01/02 14.5 [facility] HEMATOLOGY WBC 9.7 K/CMM 3.7 - 10.4 01/02 [facility] HEMATOLOGY RBC 3.93 M/CMM 4.70 - 01/02 6.10 /2017 [facility] HEMATOLOGY Hgb 12.0 g/dL 14.0 - 01/02 18.0 /2017 [facility] HEMATOLOGY Hct 35.4 % 42.0 - 01/02 54.0 [facility] HEMATOLOGY MCV 90.1 fL 80.0 - 01/02 94.0 [facility] MCH 30.6 pg 27.0 - 01/02 31.0 [facility] HEMATOLOGY MCHC 34.0 g/dL 32.0 - 01/02 36.0 [facility] HEMATOLOGY Basophils # 0.1 K/CMM 0.0 - 0.2 01/02 [facility] HEMATOLOGY Segs 66.9 % 45.0 - 01/02 75.0 [facility] HEMATOLOGY Eosinophils 4.7 % 0.0 - 4.0 01/02 [facility] HEMATOLOGY Basophils 1.1 % 0.0 - 1.0 01/02 [facility] HEMATOLOGY Lymphocytes 19.1 % 20.0 - 01/02 40.0 [facility] HEMATOLOGY Monocytes 8.2 % 2.0 - 12.0 01/02 [facility] HEMATOLOGY Segs-Bands # 6.5 K/CMM 1.5 - 8.1 01/02 [facility] HEMATOLOGY Eosinophils 0.5 K/CMM 0.0 - 0.5 01/02 [facility] HEMATOLOGY Monocytes # 0.8 K/CMM 0.0 - 0.8 01/02 [facility] HEMATOLOGY Lymphocytes 1.9 K/CMM 1.0 - 5.5 01/02 [facility] Chest 1view Chest 1view EXAM: Chest 1view DX 01/01 - DX DX - [facility] HISTORY: - mild SOB [place] COMPARISON: None Read by: Darin Thompson MD Dictated Date/time: 01/01/18 13:49 Electronically Signed by: Darin Thompson MD 01/01/18 13:49 FINAL REPORT Impression: Cardiomegaly with CABG and median sternotomy noted. There is mild interstitial edema and obscuration of the left lung base possibly related to a small effusion and/or atelectasis. CARDIAC BNP 221 pg/mL <=100 01/01 ENZYMES pg/mL [facility] CHEM PANEL Magnesium 1.4 mg/dL 1.8 - 2.4 01/01 Lvl [facility] ELECTROLYTE AGAP 10.5 meq/L 10.0 - 01/01 S 20.0 [facility] ELECTROLYTE CO2 33 meq/L 24 - 32 01/01 S [facility] ELECTROLYTE Calcium Lvl 8.2 mg/dL 8.5 - 10.5 01/01 S [facility] ELECTROLYTE Potassium 3.5 meq/L 3.5 - 5.1 01/01 S Lvl [facility] ELECTROLYTE Sodium Lvl 144 meq/L 135 - 145 01/01 S [facility] ELECTROLYTE Chloride Lvl 104 meq/L 95 - 109 01/01 S [facility] ELECTROLYTE BUN 18 mg/dL 7 - 22 01/01 S [facility] ELECTROLYTE Glucose Lvl 107 mg/dL 70 - 99 01/01 S [facility] ELECTROLYTE eGFR 80 01/01 Result Comment: The eGFR is calculated using the CKD-EPI formula. In most young, healthy individuals the eGFR will be >90 mL/ min/1.73m2. The eGFR declines with age. An eGFR of 60-89 may be normal in mL/min/1.7 some populations, particularly the elderly, for whom the CKD-EPI formula has not been extensively validated. Use of the eGFR is not recommended in the following populations: [address] Individuals with unstable creatinine concentrations, including patients and those with serious co-morbid conditions. Patients with extremes in muscle mass or diet. The data above are obtained from the National Kidney Disease Education Program (NKDEP) which additionally recommends that when the eGFR is used in patients with extremes of body mass index for purposes of drug dosing, the eGFR should be multiplied by the estimated BMI. ELECTROLYTE Creatinine 0.92 mg/dL 0.50 - 01/01 S Lvl 1.40 /2018 [facility] HEMATOLOGY Segs-Bands # 6.9 K/CMM 1.5 - 8.1 01/01 [facility] HEMATOLOGY Lymphocytes 1.9 K/CMM 1.0 - 5.5 01/01 [facility] HEMATOLOGY Monocytes # 0.8 K/CMM 0.0 - 0.8 01/01 [facility] HEMATOLOGY Basophils # 0.1 K/CMM 0.0 - 0.2 01/01 [facility] HEMATOLOGY Eosinophils 0.6 K/CMM 0.0 - 0.5 01/01 [facility] HEMATOLOGY Segs 66.9 % 45.0 - 01/01 MH 75.0 [facility] HEMATOLOGY Basophils 0.9 % 0.0 - 1.0 01/01 [facility] HEMATOLOGY Eosinophils 5.6 % 0.0 - 4.0 01/01 [facility] HEMATOLOGY Monocytes 7.8 % 2.0 - 12.0 01/01 [facility] HEMATOLOGY Lymphocytes 18.8 % 20.0 - 01/01 MH 40.0 [facility] HEMATOLOGY RDW 14.3 % 11.5 - 01/01 MH 14.5 [facility] HEMATOLOGY Platelet 271 K/CMM 133 - 450 01/01 [facility] HEMATOLOGY MPV 8.2 fL 7.4 - 10.4 01/01 [facility] HEMATOLOGY WBC 10.3 K/CMM 3.7 - 10.4 01/01 [facility] HEMATOLOGY MCHC 33.9 g/dL 32.0 - 01/01 MH 36.0 [facility] HEMATOLOGY RBC 4.35 M/CMM 4.70 - 01/01 MH 6.10 [facility] HEMATOLOGY Hgb 13.3 g/dL 14.0 - 01/01 MH 18.0 [facility] HEMATOLOGY Hct 39.3 % 42.0 - 01/01 MH 54.0 [facility] HEMATOLOGY MCV 90.5 fL 80.0 - 01/01 MH 94.0 [facility] HEMATOLOGY MCH 30.6 pg 27.0 - 01/01 MH 31.0 [facility] URINE AND UA Ketones Negative 01/01 STOOL [facility] URINE AND UA Glucose 150 mg/dL 01/01 STOOL [facility] URINE AND UA Sq Epi None Seen 01/01 STOOL [facility] URINE AND UA Bacteria Few /HPF None Seen 01/01 STOOL /HPF [facility] URINE AND UA Mucus Few /LPF None Seen 01/01 STOOL /LPF [facility] URINE AND UA RBC 85 /HPF 0 - 2 01/01 STOOL [facility] URINE AND UA Blood Moderate Negative 01/01 STOOL [facility] *ABN* [facility] (12/31/17 11:41 PM) URINE AND UA 4.0 mg/dL 0.1 - 1.0 01/01 STOOL Urobilinogen [facility] URINE AND UA pH 7.0 5.0 - 8.0 01/01 STOOL [facility] URINE AND UA Leuk Est Moderate Negative 01/01 STOOL [facility] *ABN* [facility] (12/31/17 11:41 PM) URINE AND UA WBC 72 /HPF 0 - 5 01/01 STOOL [facility] URINE AND UA Bili Negative Negative 01/01 STOOL [facility] *NA* [facility] (12/31/17 11:41 PM) URINE AND UA Nitrite Negative Negative 01/01 STOOL [facility]A Turbidity Slight Clear 01/01 STOOL [facility] *ABN* [facility] (12/31/17 11:41 PM) URINE AND UA Spec Grav 1.018 <=1.030 01/01 STOOL [facility] URINE AND UA Color Dark Yellow Yellow 01/01 STOOL [facility] *NA* [facility] (12/31/17 11:41 PM) URINE AND UA Protein >=300 Negative 01/01 STOOL mg/dL mg/dL [facility] ELECTROLYTE Potassium 4.3 meq/L 3.5 - 5.1 12/18 S Lvl [facility] ELECTROLYTE Chloride Lvl 109 meq/L 95 - 109 12/18 S [facility] ELECTROLYTE CO2 28 meq/L 24 - 32 12/18 S [facility] ELECTROLYTE Calcium Lvl 9.8 mg/dL 8.5 - 10.5 12/18 S [facility] ELECTROLYTE Sodium Lvl 145 meq/L 135 - 145 12/18 S [facility] ELECTROLYTE Glucose Lvl 144 mg/dL 70 - 99 12/18 S [facility] ELECTROLYTE BUN 17 mg/dL 7 - 22 12/18 S /2017 [facility] ELECTROLYTE eGFR 63 12/18 Result Comment: The eGFR is calculated using the CKD-EPI formula. In most young, healthy individuals the eGFR will be >90 mL/ min/1.73m2. The eGFR declines with age. An eGFR of 60-89 may be normal in [facility] mL/min/1. some populations, particularly the elderly, for whom the CKD-EPI formula has not been extensively validated. Use of the eGFR is not recommended in the following populations: [address] Individuals with unstable creatinine concentrations, including patients and those with serious co-morbid conditions. Patients with extremes in muscle mass or diet. The data above are obtained from the National Kidney Disease Education Program (NKDEP) which additionally recommends that when the eGFR is used in patients with extremes of body mass index for purposes of drug dosing, the eGFR should be multiplied by the estimated BMI. ELECTROLYTE Creatinine 1.12 mg/dL 0.50 - 12/18 S Lvl 1.40 [facility] ELECTROLYTE AGAP 12.3 meq/L 10.0 - 12/18 S 20.0 [facility] HEMATOLOGY Hct 43.7 % 42.0 - 12/18 54.0 [facility] HEMATOLOGY Hgb 14.7 g/dL 14.0 - 12/18 18.0 [facility] Vital Signs Vital Sign Value Date Comments Source BMI Calculated 25.14 02/24/2018 [facility] Weight 84.091 02/24/2018 [facility] Height 182.88 cm 02/24/2018 [facility] Systolic (mm Hg) 115 02/24/2018 [facility] Diastolic (mm Hg) 74 02/24/2018 [facility] Heart Rate 80 02/24/2018 [facility] Temperature Oral (F) 97.8 F 01/02/2018 [facility] named [facility] Systolic (mm Hg) 155 01/02/2018 [facility] named [facility] Diastolic (mm Hg) 90 01/02/2018 [facility] named [facility] Respitory Rate 18 01/02/2018 [facility] named [facility] Heart Rate 65 01/02/2018 Formerly named [facility] Respitory Rate 16 01/02/2018 Former[facility] named [facility] Temperature Oral (F) 98.2 F 01/02/2018 [facility] named [facility] Heart Rate 60 01/02/2018 [facility] named [facility] Systolic (mm Hg) 149 01/02/2018 Former[facility] named [facility] Diastolic (mm Hg) 72 01/02/2018 [facility] named [facility] Heart Rate 65 01/02/2018 Former[facility] named [facility] Respitory Rate 16 01/02/2018 [facility] named [facility] Systolic (mm Hg) 136 01/02/2018 [facility] named [facility] Diastolic (mm Hg) 61 01/02/2018 [facility] named [facility] Temperature Oral (F) 98.3 F 01/02/2018 Former[facility] named [facility] BMI Calculated 27.89 01/01/2018 [facility] named [facility] Weight 93.295 01/01/2018 [facility] named [facility] Height 182.88 cm 01/01/2018 [facility] named [facility] Systolic (mm Hg) 142 12/23/2017 Former[facility] named [facility] Diastolic (mm Hg) 69 12/23/2017 Former[facility] named [facility] Respitory Rate 19 12/23/2017 Former[facility] named [facility] Systolic (mm Hg) 143 12/23/2017 Former[facility] named [facility] Diastolic (mm Hg) 65 12/23/2017 Formerly named [facility] Respitory Rate 20 12/23/2017 Formerly named [facility] Systolic (mm Hg) 143 12/23/2017 Formerly named [facility] Diastolic (mm Hg) 62 12/23/2017 Formerly named [facility] Respitory Rate 20 12/23/2017 Formerly named [facility] Heart Rate 74 12/23/2017 Formerly named [facility] BMI Calculated 25.86 12/18/2017 Former[facility] named [facility] Weight 84.091 12/18/2017 Formerly named [facility] Height 180.34 cm 12/18/2017 Formerly named [facility] BMI Calculated 27.46 11/28/2017 [facility] Heart Rate 70 11/28/2017 [facility] Systolic (mm Hg) 117 11/28/2017 [facility] Diastolic (mm Hg) 71 11/28/2017 [facility] Height 177.8 cm 11/28/2017 [facility] Weight 86.818 11/28/2017 [facility] Group Encounters Location Location Encounter Encounter Reason Attending ADM DC Status Source Details Type Number For Provider Date Date Visit Outpatient [id number] MIKE 07/05 [facility] [place] Outpatient [id number] MIKE 08/13 [facility] [place] Outpatient [id number] [facility] 08/20 Active [facility] VISIT [place] Outpatient [id number] MIKE 08/20 [facility] [place] Outpatient [id number] MIKE 12/05 [facility] [place] Outpatient [id number] MIKE 06/06 [facility] [place] Outpatient [id number] ECHO VISIT 06/20 [facility] Phone [id number] 07/19 07/21 Cardiology Message /2016 Medical [facility] Outpatient [id number] FRANCES 11/28 [facility] Outpatient [id number] Anderson 11/28 11/29 Cardiology David /2017 [facility] [id number] Fer Efren 12/23 12/23 [facility] Gomez /2017 [facility] Emergency [id number] Neri 01/01 01/01 [facility] /2017 [facility] Inpatient [id number] Latonya Latonya Pe 01/01 01/02 [facility] /2017 [facility] Phone [id number] 01/06 01/08 Urology Message /2017 [facility] Outpatient [id number] MANN 01/16 [facility] Ambulatory [id number] Mann 01/16 01/16 Urology Pre-Reg Lux /2017 [facility] Outpatient [id number] MANN 02/24 [facility] Outpatient [id number] Anderson 02/24 02/25 Urology David /2017 Medical [facility] Outpatient [id number] FRANCES 06/05 [facility] [place] Procedures Procedure Code Date Perfomer [place] [address] 02/24/2018 Medical [facility] residual urine and/or bladder capacity by ultrasound, non-imaging CABG - Coronary [id number] 1999 Medical artery bypass Group graft<sup>1</sup> Cardiac [id number] Open Grafts Medical catheterization<sup 2004 Group >2</sup> Carotid [id number] Right and left Medical endarterectomy<sup> Group 3</sup> Repair of [id number] 1 week ago Medical diaphragmatic Group hiatal hernia<sup>4</sup> CABG - Coronary [id number] 1999 [facility] bypass [facility] graft<sup>1</sup> Cardiac [id number] Open Grafts [facility] catheterization<sup 2004 City >2</sup> Carotid [id number] Right and left [facility] endarterectomy<sup> City 3</sup> Repair of [id number] 1 week ago [facility] hiatal hernia<sup>4</sup>
--- NOTE | 2018-03-01 16:57 | EDPHYS ---
Physician Documentation [facility] Name: Abisai Salinas Age: 77 yrs Sex: Male : 1940 Arrival Date: 03/01/2018 Time: 15:56 Bed 7 Private MD: out of town, doctor ED Physician Bacilio Billings HPI: 03/01 16:17 This 77 yrs old Male presents to ER via Ambulatory with complaints of Urinary cp Retention. 16:18 The patient presents with a He catheter problem, is not draining. Onset: The cp symptoms/episode began/occurred this morning. Associated signs and symptoms: Pertinent positives: abdominal pain, nausea, Pertinent negatives: constipation, diarrhea, fever, vomiting. Severity of symptoms: in the emergency department the symptoms are unchanged. Historical: - Allergies: 16:00 No Known Allergies; hj - Home Meds: 16:00 amlodipine 5 mg tab 1 tab once daily [Active]; atorvastatin 40 mg Oral tab [Active]; hj Bactrim DS 800-160 mg Oral tab 1 tab once daily [Active]; Combigan 0.2-0.5 % ophthalmic drop 1 drop every 12 hours [Active]; docusate sodium 100 mg Oral tab 1 tab 2 times per day [Active]; Eliquis Oral [Active]; Eliquis 5 mg Oral tab 1 tab 2 times per day [Active]; Farxiga 5 mg Oral tab 1 tab once daily [Active]; finasteride 5 mg Oral tab 1 tab once daily [Active]; glipizide 10 mg Oral tab 1 tab 2 times per day [Active]; Glipizide Oral [Active]; lisinopril 20 mg Oral tab 1 tab once daily [Active]; Lotrisone 1-0.05 % Topical crea 2 times per day [Active]; metformin 1,000 mg Oral tab 1 tab 2 times per day [Active]; Metformin Oral [Active]; metoprolol tartrate 100 mg Oral tab 1 tab 2 times per day [Active]; pantoprazole 20 mg Oral TbEC 1 tab once daily [Active]; - PMHx: 16:00 Diabetes - NIDDM; GERD; Hyperlipidemia; Hypertension; LACK OF COORDINATION; retention hj of urine; - PSHx: 16:00 Unable to obtain; hj - Immunization history:: Adult Immunizations up to date. - Social history:: Smoking status: Patient/guardian denies using tobacco, Patient/guardian denies using alcohol. - Ebola Screening: : Patient negative for fever greater than or equal to 101.5 degrees Fahrenheit, and additional compatible Ebola Virus Disease symptoms Patient denies exposure to infectious person Patient denies travel to an Ebola-affected area in the 21 days before illness onset. ROS: 16:19 Eyes: Negative for injury, pain, redness, and discharge. cp 16:19 Constitutional: Negative for body aches, chills, fever, poor PO intake. 16:19 ENT: Negative for ear pain, sore throat, difficulty swallowing, difficulty handling secretions. 16:19 Cardiovascular: Negative for chest pain. 16:19 Respiratory: Negative for cough, shortness of breath, wheezing. 16:19 Abdomen/GI: Positive for abdominal pain, nausea, abdominal distension, of the suprapubic area, Negative for vomiting, diarrhea, constipation. 16:19 : Positive for urinary retention. 16:19 Neuro: Negative for altered mental status, headache. 16:19 All other systems are negative. Exam: 16:25 Constitutional: The patient appears in no acute distress, alert, awake, non-toxic, well cp developed, well nourished, uncomfortable. 16:25 Head/Face: Normocephalic, atraumatic. cp 16:25 Eyes: Periorbital structures: appear normal, Conjunctiva: normal, no exudate, no injection, Sclera: no appreciated abnormality, Lids and lashes: appear normal, bilaterally. 16:25 ENT: External ear(s): are unremarkable, Nose: is normal, Mouth: Lips: moist, Oral mucosa: moist, Posterior pharynx: is normal, airway is patent, Voice: is normal. 16:25 Chest/axilla: Inspection: normal, Palpation: is normal, no crepitus, no tenderness. 16:25 Cardiovascular: Rate: normal. 16:25 Respiratory: the patient does not display signs of respiratory distress, Respirations: normal, no use of accessory muscles, no retractions, no splinting, no tachypnea. 16:25 Abdomen/GI: Inspection: distension, that is moderate, in the suprapubic area, Bowel sounds: active, all quadrants, Palpation: soft, in all quadrants, moderate abdominal tenderness, in the suprapubic area, involuntary guarding, is elicited in the suprapubic area. 16:25 Back: pain, is absent. 16:25 Skin: cellulitis, is not appreciated, no rash present. Vital Signs: 16:01 BP 111 / 61; Pulse 75; Resp 18; Temp 98.0(TE); Pulse Ox 97% on R/A; Weight 83.91 kg; hj Height 6 ft. 0 in. (182.88 cm); Pain 10/10; 16:01 Body Mass Index 25.09 (83.91 kg, 182.88 cm) MDM: 16:12 Patient medically screened. cp 16:51 ED course: VSS. He flushed and balloon deflated and re inflated by nursing staff. cp He now draining and patient reports symptoms improved. 16:55 Data reviewed: vital signs, nurses notes, and as a result, I will discharge patient. cp 03/01 16:31 Order name: Tammyc. Order: he flush; Complete Time: 16:45 cp Administered Medications: No medications were administered Disposition: 03/01/18 16:57 Discharged to Home. Impression: Obstructed He Catheter. - Condition is Stable. - Discharge Instructions: He Catheter Care, Adult. - Medication Reconciliation Form, Thank You Letter, Antibiotic Education, Prescription Opioid Use form. - Follow up: Private Physician; When: primary urologist; Reason: Recheck today's complaints. - Problem is new. - Symptoms are resolved. Addendum: 03/03/2018 23:01 Co-signature as Attending Physician, Bacilio Billings MD I agree with the assessment and k dr plan of care. Signatures: Bacilio Billings MD MD [facility] Liberty Oseguera, RN RN aa5 Brain Cruz RN RN Toribio Arcos PA PA cp Corrections: (The following items were deleted from the chart) 03/01 17:42 16:57 03/01/2018 16:57 Discharged to Home. Impression: Obstructed He Catheter. aa5 Condition is Stable. Forms are Medication Reconciliation Form, Thank You Letter, Antibiotic Education, Prescription Opioid Use. Follow up: Private Physician; When: primary urologist; Reason: Recheck today's complaints. Problem is new. Symptoms are resolved. cp
--- NOTE | 2018-03-01 16:57 | ER ---
Nurse's Notes [facility] Name: Abisai Salinas Age: 77 yrs Sex: Male : 1940 Arrival Date: 03/01/2018 Time: 15:56 Bed 7 Private MD: out of town, doctor Diagnosis: Obstructed He Catheter Presentation: 03/01 15:56 Presenting complaint: Patient states: from [facility], this morning, i felt im hj building up fluid on my abdomen and i have he cath and there's no output;. Transition of care: patient was not received from another setting of care. Onset of symptoms was March 01, 2018. Risk Assessment: Do you want to hurt yourself or someone else? Patient reports no desire to harm self or others. Initial Sepsis Screen: Does the patient meet any 2 criteria? No. Patient's initial sepsis screen is negative. Does the patient have a suspected source of infection? No. Patient's initial sepsis screen is negative. Care prior to arrival: None. 15:56 Method Of Arrival: Ambulatory 15:56 Acuity: BIB 3 hj Triage Assessment: 16:00 General: Appears in no apparent distress. uncomfortable, Behavior is calm, cooperative, hj appropriate for age. Pain: Complains of pain in pelvis. Historical: - Allergies: 16:00 No Known Allergies; hj - Home Meds: 16:00 amlodipine 5 mg tab 1 tab once daily [Active]; atorvastatin 40 mg Oral tab [Active]; hj Bactrim DS 800-160 mg Oral tab 1 tab once daily [Active]; Combigan 0.2-0.5 % ophthalmic drop 1 drop every 12 hours [Active]; docusate sodium 100 mg Oral tab 1 tab 2 times per day [Active]; Eliquis Oral [Active]; Eliquis 5 mg Oral tab 1 tab 2 times per day [Active]; Farxiga 5 mg Oral tab 1 tab once daily [Active]; finasteride 5 mg Oral tab 1 tab once daily [Active]; glipizide 10 mg Oral tab 1 tab 2 times per day [Active]; Glipizide Oral [Active]; lisinopril 20 mg Oral tab 1 tab once daily [Active]; Lotrisone 1-0.05 % Topical crea 2 times per day [Active]; metformin 1,000 mg Oral tab 1 tab 2 times per day [Active]; Metformin Oral [Active]; metoprolol tartrate 100 mg Oral tab 1 tab 2 times per day [Active]; pantoprazole 20 mg Oral TbEC 1 tab once daily [Active]; - PMHx: 16:00 Diabetes - NIDDM; GERD; Hyperlipidemia; Hypertension; LACK OF COORDINATION; retention hj of urine; - PSHx: 16:00 Unable to obtain; hj - Immunization history:: Adult Immunizations up to date. - Social history:: Smoking status: Patient/guardian denies using tobacco, Patient/guardian denies using alcohol. - Ebola Screening: : Patient negative for fever greater than or equal to 101.5 degrees Fahrenheit, and additional compatible Ebola Virus Disease symptoms Patient denies exposure to infectious person Patient denies travel to an Ebola-affected area in the 21 days before illness onset. Screenin:00 Abuse screen: Denies threats or abuse. Denies injuries from another. Nutritional hj screening: No deficits noted. Tuberculosis screening: No symptoms or risk factors identified. Fall Risk None identified. Assessment: 16:05 General: Appears uncomfortable, Behavior is calm, cooperative. Pain: Complains of pain aa5 in suprapubic area Pain does not radiate. Pain currently is 10 out of 10 on a pain scale. Quality of pain is described as pressure, Pain began this morning Is continuous. Neuro: Level of Consciousness is awake, alert, obeys commands, Oriented to person, place, time, situation. Cardiovascular: Heart tones S1 S2 present Rhythm is regular. Respiratory: Airway is patent Respiratory effort is even, unlabored, Respiratory pattern is regular, symmetrical. GI: Abdomen is round distended, Bowel sounds present X 4 quads. Abd is soft X 4 quads Abdomen is tender to palpation in suprapubic area. : Reports He catheter stopped draining urine today. Pt reports He was changed on Saturday. EENT: No signs and/or symptoms were reported regarding the EENT system. Derm: Skin is pink, warm \T\ dry. Musculoskeletal: Range of motion: intact in all extremities. 16:40 Reassessment: He easy to flush with 30 cc of NS, unable to draw any urine back. aa5 Ballon deflated and He adjusted and ballon was reinflated with 5 cc NS per Catheter instructions and urine output was noted. 900 cc urine output at this time, urine is cloudy. He clamped, will return to unclamp He in a few minutes to prevent bladder spasms, pt notified. PA notified. . 16:40 Reassessment: Patient and/or family updated on plan of care and expected duration. Pain aa5 level reassessed. Patient is alert, oriented x 3, equal unlabored respirations, skin warm/dry/pink. Patient states feeling better. 16:55 Reassessment: Patient is alert, oriented x 3, equal unlabored respirations, skin aa5 warm/dry/pink. Patient states feeling better. He was unclamped and 200 cc of urine output was noted. . Vital Signs: 16:01 BP 111 / 61; Pulse 75; Resp 18; Temp 98.0(TE); Pulse Ox 97% on R/A; Weight 83.91 kg; hj Height 6 ft. 0 in. (182.88 cm); Pain 10/10; 16:01 Body Mass Index 25.09 (83.91 kg, 182.88 cm) ED Course: 15:56 Patient arrived in ED. mr 15:57 out of town, doctor is Private Physician. mr 15:59 Triage completed. hj 16:01 Arm band placed on right wrist. hj 16:01 Patient has correct armband on for positive identification. hj 16:08 Liberty Oseguera, MICHI is Primary Nurse. aa5 16:12 Toribio Womack PA is PHCP. cp 16:12 Bacilio Billings MD is Attending Physician. cp 17:20 No provider procedures requiring assistance completed. aa5 17:20 Patient did not have IV access during this emergency room visit. aa5 Administered Medications: No medications were administered Outcome: 16:57 Discharge ordered by . cp 17:18 Discharged to retirement. with and family aa5 17:18 Condition: improved 17:18 Discharge instructions given to patient, family, Instructed on discharge instructions, follow up and referral plans. Demonstrated understanding of instructions, follow-up care. 17:20 Patient left the ED. aa5 Signatures: Clemencia Camargo mr Liberty Oseguera RN RN aa5 Brain Cruz RN RN Toribio Womack PA PA cp Corrections: (The following items were deleted from the chart) 16:03 16:01 Pulse 75bpm; Resp 18bpm; Pulse Ox 97% RA; Temp 98.0F Temporal; 83.91 kg; Height 6 hj ft. 0 in.; BMI: 25.0; Pain 10; hj 17:42 17:42 Patient left the ED. aa5 aa5
== END 2018-03-01 17:42 | disposition home or self-care (01) ==
LOC: ER 15:54
DX: T83.091A Other mechanical complication of indwelling urethral catheter, initial encounter (principal); E11.9 Type 2 diabetes mellitus without complications; E78.5 Hyperlipidemia, unspecified; Y84.6 Urinary catheterization as the cause of abnormal reaction of the patient, or of later complication, without mention of misadventure at the time of the procedure; Y92.9 Unspecified place or not applicable
CPT/HCPCS: 99281

== ENCOUNTER 2018-04-15 19:44 | Emergency (ER) | payer OTHER, MEDICARE ==
--- OUTSIDE RECORDS SUMMARY | 2018-04-15 19:47 | XMS REPORT | Continuity of Care Document ---
:1940 Author Organization Interface Problems Problem Status Onset Classification Date Comments Source Date Reported INJURY OF URETER Active [address] AMS, UTI, KIDNEY Active MH INJURY [address] [place] [id number] Active BILATERAL UMBILICAL 018 [facility] Chest pain<sup>1</sup> Active Problem 03/23/2018 [facility] 013 migrated Group, from [facility] on 02/05/15. Carotid Active Problem 03/23/2018 Medical atherosclerosis Group,[facility] Coronary Active Problem 03/23/2018 Data Medical arteriosclerosis<sup>2 migrated Group, </sup> from [facility] on 02/05/15. Diabetes mellitus Active Problem 03/23/2018 Medical Group,[facility] Hyperlipidemia Active Problem 03/23/2018 Medical Group,[facility] Hypertensive Active Problem 03/23/2018 Data Medical disorder<sup>3</sup> migrated Group, from [facility] on 02/05/15. Mitral regurgitation Active Problem 03/23/2018 Medical Group,[facility] Nonspecific ST-T wave Active Problem 03/23/2018 Medical electrocardiographic Group, changes [facility] Persistent atrial Active Problem 03/23/2018 Medical fibrillation Group,[facility] Tricuspid Active Problem 03/23/2018 Medical regurgitation Group,[facility] CAD (<span Active Problem 03/23/2018 ID="[id number]">[facility]</span>[facility], Medical Group Hernia, femoral, Active Problem 03/23/2018 bilateral [facility], Medical Group Reflux esophagitis Active Problem 03/23/2018 [facility], Medical Group Glaucoma Active Problem 03/23/2018 [facility], Medical Group Hypertension Active Problem 03/23/2018 [facility], Medical Group Umbilical hernia Active Problem 03/23/2018 [facility], Medical Group Unspecified injury of 01/05/2018 ureter, initial [facility] encounter [facility] UNSPECIFIED INJURY OF Active URETER, INITIAL EN [facility] ALTERED MENTAL STATUS, Active UNSPECIFIED [facility] AMS/ UTI/ DIRECT ADMIT Active [facility] Medications Medication Details Route Status Patient Ordering Order Source Instructions Provider Date Ciprofloxacin 250 mg=1 tab, Active 02/24/ 250 MG Oral PO, Q12H, X 7 2018 Medical Tablet [Cipro] day, # 14 tab, 0 Group Refill(s), Pharmacy: [facility] [id number] Eliquis 5 mg, 1 tab, Inactive Route: PO, Drug 2017 [facility] form: TAB, BID, City Dosing Weight 93.295, kg, Start date: 01/02/18 17:00:00 CDT, Duration: 30 day, Stop date: 02/01/18 9:00:00 CDTNotes: Same as: Eliquis Acetaminophen 1 tab, PO, Q6H, Active 300 MG / Codeine PRN Pain, X 5 2017 [facility] Phosphate 30 MG day, # 20 tab, 0 [facility] Oral Tablet Refill(s) [Tylenol with Codeine #3] Hydrocortisone 5 1 appl, TOP, Active MG/ML Topical BID, PRN Rash, 0 2017 [facility] Cream Refill(s) [facility] Cephalexin 500 500 mg=1 cap, Active MG Oral Capsule PO, TID, X 7 2018 [facility] [Keflex] day, # 21 cap, 0 City Refill(s) Hydrocortisone 5 1 appl, Route: Inactive MG/ML Topical TOP, BID, Drug 2017 [facility] Cream form: CRM, PRN [facility] Rash, Start date: 01/02/18 10:55:00 CDT, Duration: 30 day, Stop date: 02/01/18 10:54:00 CDT Brimonidine 1 drp, Route: Inactive tartrate 2 MG/ML BOTH EYES, Q12H, 2017 [facility] / Timolol 5 Drug form: SOLN, City MG/ML Ophthalmic Start date: Solution 01/01/18 [Combigan] 21:00:00 CDT, Duration: 30 day, Stop date: 01/31/18 9:00:00 CDT timolol 1 drp, Route: No Longer ophthalmic BOTH EYES, Q12H, Active 2017 [facility] Drug form: JAIRO [facility] Start date: 01/01/18 21:00:00 CDT, Duration: 30 day, Stop date: 01/31/18 9:00:00 CDTNotes: (Same As: Timoptic, Betimol) metoprolol 100 mg, 2 tab, No Longer tartrate Route: PO, Drug Active 2017 [facility] form: TAB, Q12H, [facility] Dosing Weight 93.295, kg, Start date: 01/01/18 21:00:00 CDT, Duration: 30 day, Stop date: 01/31/18 9:00:00 CDTNotes: (Same as: Lopressor) brimonidine 1 drp, Route: No Longer ophthalmic BOTH EYES, Q12H, Active 2017 [facility] Drug form: JAIRO [facility] Start date: 01/01/18 21:00:00 CDT, Duration: 30 day, Stop date: 01/31/18 9:00:00 CDTNotes: (Same As: Alphagan) latanoprost 1 drp, Route: No Longer ophthalmic Each Affected Active 2017 [facility]: MIKAN, Start date: 01/01/18 21:00:00 CDT, Duration: 30 day, Stop date: 01/30/18 21:00:00 CDTNotes: Keep refrigerated. (Same as:Xalatan) Opened bottle may be stored at room temperature for 6 weeks Magnesium 2 gm, 50 mL, Inactive Sulfate Route: IVPB, 2017 [facility] Drug form: INJ [facility] Q2H, Dosing Weight 93.295, kg, Total dose=4 gm, Start date: 01/01/18 18:00:00 CDT, Duration: 2 doses or times, Stop date: 01/01/18 20:00:00 CDTNotes: WASTE: F/P - Sink; E - Municipal Trash Bin travoprost 0.04 1 drp, Route: Inactive MG/ML Ophthalmic BOTH EYES, Drug 2017 [facility] Solution Form: MIKAJimmy [facility] [Travatan] Dosing Weight 93.295, kg, QPM, Start date: 01/01/18 17:00:00 CDT, Duration: 30 day, Stop date: 01/30/18 17:00:00 CDT Protonix 20 mg, 1 tab, No Longer Route: PO, Drug Active 2017 [facility] form: ECTAB, City Before Lunch, Dosing Weight 93.295, kg, Start date: 01/01/18 11:30:00 CDT, Duration: 30 day, Stop date: 01/30/18 11:30:00 CDTNotes: Tablet should not be chewed or crushed. Docusate 100 mg, 1 cap, No Longer Route: PO, Drug Active 2017 [facility] form: CAP, BID, [facility] Dosing Weight 93.295, kg, Start date: 01/01/18 9:00:00 CDT, Duration: 30 day, Stop date: 01/30/18 17:00:00 CDTNotes: (Same as: Colace) (Do Not Crush) albumin human 25 gm, 100 mL, Inactive 25% intravenous Route: [id number] solution Drug form: INJ, City ONCE, Dosing Weight 93.295, kg, Start date: 01/01/18 5:48:00 CDT, Stop date: 01/01/18 5:48:00 CDTNotes: LOT#: Mfg: ____ WASTE: F/P - Red; E -Red (Same as: Albuminar) "blood product derivative" NS (Bolus) IV 1,000 mL, 1,000 Inactive ml/hr, Infuse 2017 [facility] Over: 1 hr, [facility] Route: IV, 1,000, Drug form: INJ, ONCE, Priority: STAT, Dosing Weight 93.295 kg, Start date: 01/01/18 5:48:00 CDT, Stop date: 01/01/18 5:48:00 CDT Ceftriaxone 1 gm, Route: No Longer IVPB, [id number], Active 2017 [facility] Dosing Weight [facility] 93.295, kg, Start date: 01/01/18 0:00:00 CDT, Duration: 3 day, Stop date: 01/03/18 0:00:00 CDT, ABX Indication: Urinary Tract InfectionNotes: (Same As: Rocephin). Use with 100 mL NS and infuse over 30 min MEDICATION WASTE Product Size: 1000 mg Product Wasted: ___ mg Insulin Lispro 2 unit, 0.02 mL, No Longer Route: SUB-Q, [address] Drug form: SOLN [facility] TID-Before Meals, Dosing Weight 93.295, kg, PRN Blood Glucose Results, Start date: 12/31/17 23:08:00 CDT, Duration: 30 day, Stop date: 01/30/18 23:07:00 CDTNotes: (Same as: Humalog ) Roll in palms of hands gently; Do not shake `vigorously. "Single Patient Use Only " WASTE: F/P - Black; E - Municipal Trash Bin Stable for 28 days at room temperature. Expires in days from Da te Dextrose 50% 12.5 gm, 25 mL, No Longer Syringe Route: IVP, Drug [address] Form: INJ, [facility] Dosing Weight 93.295, kg, PRN, PRN Blood Glucose Results, Start date: 12/31/17 23:08:00 CDT, Duration: 30 day, Stop date: 01/30/18 23:07:00 CDT Glucagon 1 mg, Route: IM, No Longer Drug form: [address] PDR/INJ, PRN, [facility] Dosing Weight 93.295, kg, PRN Blood Glucose Results, Start date: 12/31/17 23:08:00 CDT, Duration: 30 day, Stop date: 01/30/18 23:07:00 CDT Saline Flush 10 ml, Route: No Longer 0.9% IVP, Drug Form: [address] INJ, Dosing City Weight 93.295, kg, PRN, PRN Line Flush, Start date: 12/31/17 23:07:00 CDT, Duration: 30 day, Stop date: 01/30/18 23:06:00 CDTNotes: (Same as: BD Posiflush) Ondansetron 4 mg, 1 tab, No Longer Route: PO, Drug [address] form: TABDIS, [facility] Q6H, Dosing Weight 93.295, kg, PRN Nausea & Vomiting, Start date: 12/31/17 23:07:00 CDT, Duration: 30 day, Stop date: 01/30/18 23:06:00 CDTNotes: (Same as: Zofran ODT) Morphine 3 mg, 1.5 mL, No Longer Route: PO, Drug Active [address] [place] [address] form: SOLN, Q4H, [facility] Dosing Weight 93.295, kg, PRN Pain Score 7-10, Start date: 12/31/17 23:07:00 CDT, Stop date: 01/30/18 23:06:00 CDTNotes: (Same as:MORPhine Sulfate) Acetaminophen 650 mg, 2 tab, No Longer Route: PO, Drug Active [address] [place] [address] form: TAB, Q4H, [facility] Dosing Weight 93.295, kg, PRN Pain 1-3/Temp > 100.4 F, Start date: 12/31/17 23:07:00 CDT, Duration: 30 day, Stop date: 01/30/18 23:06:00 CDTNotes: Do not exceed 4 gm/day. (Same as: Tylenol) Acetaminophen 1 tab, Route: No Longer 325 MG / PO, Drug Form: [address] Hydrocodone TAB, Dosing [facility] Bitartrate 5 MG Weight 93.295, Oral Tablet kg, Q4H, PRN Pain Score 4-6, Start date: 12/31/17 23:07:00 CDT, Duration: 30 day, Stop date: 01/30/18 23:06:00 CDTNotes: (Same as: [place] 325/5) Do not exceed 4gm/day of acetaminophen. Sodium Chloride 1,000 mL, Rate: No Longer 0.9% IV 1,000 mL 75 ml/hr, Infuse Active [address] [place] [address] over: 13.3 hr, [facility] Route: IV, Dosing Weight 93.295 kg, Total Volume: 1,000, Start date: 12/31/17 23:07:00 CDT, Duration: 30 day, Stop date: 01/30/18 23:06:00 CDT, 2.19, m2 glycopyrrolate Route: IV, Drug Inactive (ANES) form: INJ, ONCE, 2017 [facility] Stop date: [facility] 12/23/17 16:01:00 CDT neostigmine Route: IV, Drug Inactive (ANES) form: INJ, ONCE, 2017 [facility] Stop date: [facility] 12/23/17 16:01:00 CDT ondansetron Route: IV, Drug Inactive (ANES) form: INJ, ONCE, 2017 [facility] Stop date: [facility] 12/23/17 15:52:00 CDT Hydralazine 10 mg, Route: Inactive IVP, Q20Min, 2017 [facility] Dosing Weight [facility] 84.091, kg, PRN Elevated BP, Start date: 12/23/17 14:45:00 CDT, Duration: 2 doses or times, Stop date: Limited # of times Ondansetron 4 mg, Route: Inactive IVP, ONCE, 2017 [facility] Dosing Weight [facility] 84.091, kg, PRN Nausea & Vomiting, Start date: 12/23/17 14:45:00 CDT Morphine 2 mg, Route: Inactive IVP, Q5Min, 2017 [facility] Dosing Weight [facility] 84.091, kg, PRN Pain Score 4-6, Start date: 12/23/17 14:45:00 CDT, Duration: 5 doses or times, Stop date: Limited # of times Naloxone 0.4 mg, Route: Inactive IVP, Q2MIN, 2017 [facility] Dosing Weight [facility] 84.091, kg, PRN Narcotic Reversal, Start date: 12/23/17 14:45:00 CDT, Duration: 8 doses or times, Stop date: Limited # of times Flumazenil 0.2 mg, Route: Inactive IVP, PRN, Dosing 2017 [facility] Weight 84.091, City kg, PRN Benzodiazepine Reversal, Initial dose, Start date: 12/23/17 14:45:00 CDT, Duration: 30 day, Stop date: 01/22/18 14:44:00 CDT Hydromorphone 0.5 mg, Route: Inactive IVP, Q5Min, 2017 [facility] Dosing Weight [facility] 84.091, kg, PRN Pain Score 7-10, Start date: 12/23/17 14:45:00 CDT, Duration: 4 doses or times, Stop date: Limited # of times rocuronium Route: IV, Drug Inactive 12/23/ MH (ANES) form: INJ, ONCE, 2017 [facility] Stop date: [facility] 12/23/17 14:22:00 CDT fentaNYL (ANES) Route: IV, Drug Inactive 12/23/ form: INJ, ONCE, 2017 [facility] Stop date: [facility] 12/23/17 14:17:00 CDT lidocaine (ANES) Route: IV, Drug Inactive 12/23/ form: INJ, ONCE, 2017 [facility] Stop date: [facility] 12/23/17 14:17:00 CDT propofol (ANES) Route: IV, Drug Inactive 12/23/ form: INJ, ONCE, 2017 [facility] Stop date: [facility] 12/23/17 14:17:00 CDT ePHEDrine (ANES) Route: IV, Drug Inactive 12/23/ form: INJ, ONCE, 2017 [facility] Stop date: [facility] 12/23/17 14:02:00 CDT ceFAZolin (ANES) Route: IV, Drug Inactive 12/23/ form: INJ, ONCE, 2017 [facility] Stop date: [facility] 12/23/17 14:02:00 CDT acetaminophen Route: IV, Drug Inactive (ANES) 10 mg form: INJ, Start 2017 [facility] date: 12/23/17 [facility] 13:24:00 CDT, Stop date: 12/23/17 14:24:00 CDT Lactated Ringers Route: IV, Total Inactive Injection IV Volume: 1,000, 2017 [facility] (ANES) 1000 mL Start date: [facility] 12/23/17 13:12:00 CDT, Stop date: 12/23/17 14:12:00 CDT Lidocaine 0.5 mL, Route: Inactive Hydrochloride 10 INTRADERM, 2017 [facility] MG/ML Injectable Dosing Weight [facility] Solution 84.091, kg, ONCALL, Start date: 12/23/17 11:00:00 CDT, Duration: 1 doses or times Sodium Chloride 1,000 mL, Rate: Inactive 0.9% IV 1000 mL 25 ml/hr, Infuse 2017 [facility] over: 40 hr, [facility] Route: IV, Dosing Weight 84.091 kg, Total Volume: 1,000, Start date: 12/23/17 10:33:00 CDT, Duration: 30 day, Stop date: 01/22/18 10:32:00 CDT, 2.06, m2 Ancef + sterile 2 gm, Route: Inactive water 20 mL IVPB, ONCE, 2017 [facility] Weight [facility] 84.091, kg, Start date: 12/23/17 10:33:00 CDT, Stop date: 12/23/17 10:33:00 CDT, ABX Indication: Surgical ProphylaxisNotes : (Same As: Ancef, Kefzol) MEDICATION WASTE Product Size: 1000 mg Product Wasted: ___ mg dapagliflozin 5 mg=1 tab, PO, Active propanediol 5 MG Daily, 0 2017 [facility] Oral Tablet Refill(s) Group [Farxiga] atorvastatin 40 40 mg=1 tab, PO, No Longer mg oral tablet Daily, 0 Active 2017 [facility] Refill(s) Group apixaban 5 MG 5 mg=1 tab, PO, Active Oral Tablet BID, # 180 tab, 2017 [facility] [Eliquis] 1 Refill(s), Group Pharmacy: [facility] [id number] Allergies, Adverse Reactions, Alerts Substance Category Reaction Severity Reaction Status Date Comments Source type Reported NKDA Assertion Drug Active allergy Medical Group NKFA Assertion Food Active allergy Medical Group Immunizations Immunization Date Given Site Status Last Updated Comments Source Results Order Name Results Value Reference Date Interpretation Comments Source Range CHEM PANEL Magnesium 2.2 mg/dL 1.8 - 2.4 01/02 Lvl [facility] ELECTROLYTE AGAP 12.7 meq/L 10.0 - 01/02 S 20.0 [facility] ELECTROLYTE CO2 28 meq/L 24 - 32 01/02 S [facility] ELECTROLYTE Calcium Lvl 7.7 mg/dL 8.5 - 10.5 01/02 S [facility] ELECTROLYTE BUN 12 mg/dL 7 - 22 01/02 S [facility] ELECTROLYTE Sodium Lvl 143 meq/L 135 - 145 01/02 S [facility] ELECTROLYTE Chloride Lvl 106 meq/L 95 - 109 01/02 [facility] ELECTROLYTE Potassium 3.7 meq/L 3.5 - 5.1 01/02 S Lvl /2017 [facility] ELECTROLYTE eGFR 85 01/02 Result Comment: The eGFR is calculated using the CKD-EPI formula. In most young, healthy individuals the eGFR will be >90 mL/ min/1.73m2. The eGFR declines with age. An eGFR of 60-89 may be normal in [facility] mL/min/1.7 some populations, particularly the elderly, for whom the CKD-EPI formula has not been extensively validated. Use of the eGFR is not recommended in the following populations: [address] Individuals with unstable creatinine concentrations, including [...] Lvl 161 mg/dL 70 - 99 01/02 S [facility] ELECTROLYTE Creatinine 0.81 mg/dL 0.50 - 01/02 S Lvl 1.40 [facility] HEMATOLOGY MPV 8.2 fL 7.4 - 10.4 01/02 [facility] HEMATOLOGY Platelet 247 K/CMM 133 - 450 01/02 [facility] HEMATOLOGY RDW 14.0 % 11.5 - 01/02 MH 14. [facility] HEMATOLOGY WBC 9.7 K/CMM 3.7 - 10.4 01/02 [facility] HEMATOLOGY RBC 3.93 M/CMM 4.70 - 01/02 MH 6.10 [facility] HEMATOLOGY Hgb 12.0 g/dL 14.0 - 01/02 MH 18.0 [facility] HEMATOLOGY Hct 35.4 % 42.0 - 01/02 MH 54.0 [facility] HEMATOLOGY MCV 90.1 fL 80.0 - 01/02 94.0 [facility] HEMATOLOGY MCH 30.6 pg 27.0 - 01/02 MH 31.0 [facility] MCHC 34.0 g/dL 32.0 - 01/02 MH 36.0 [facility] HEMATOLOGY Basophils # 0.1 K/CMM 0.0 - 0.2 01/02 [facility] HEMATOLOGY Segs 66.9 % 45.0 - 01/02 MH 75.0 [facility] HEMATOLOGY Eosinophils 4.7 % 0.0 - 4.0 01/02 [facility] HEMATOLOGY Basophils 1.1 % 0.0 - 1.0 01/02 [facility] HEMATOLOGY Lymphocytes 19.1 % 20.0 - 01/02 MH 40.0 [facility] HEMATOLOGY Monocytes 8.2 % 2.0 - 12.0 01/02 [facility] HEMATOLOGY Segs-Bands # 6.5 K/CMM 1.5 - 8.1 01/02 [facility] HEMATOLOGY Eosinophils 0.5 K/CMM 0.0 - 0.5 01/02 # [facility] HEMATOLOGY Monocytes # 0.8 K/CMM 0.0 - 0.8 01/02 [facility] HEMATOLOGY Lymphocytes 1.9 K/CMM 1.0 - 5.5 01/02 # [facility] Chest 1view Chest 1view EXAM: Chest 1view DX 01/01 - DX DX - [facility] HISTORY: - mild [facility] [place], [place] City COMPARISON: None Read by: Darin Thompson MD Dictated Date/time: 01/01/18 13:49 Electronically Signed by: Darin Thompson MD 01/01/18 13:49 FINAL REPORT Impression: Cardiomegaly with CABG and median sternotomy noted. There is mild interstitial edema and obscuration of the left lung base possibly related to a small effusion and/or atelectasis. CARDIAC BNP 221 pg/mL <=100 01/01 ENZYMES pg/mL /2017 [facility] CHEM PANEL Magnesium 1.4 mg/dL 1.8 - 2.4 01/01 Lvl [facility] ELECTROLYTE AGAP 10.5 meq/L 10.0 - 01/01 S 20.0 [facility] ELECTROLYTE CO2 33 meq/L 24 - 32 01/01 S [facility] ELECTROLYTE Calcium Lvl 8.2 mg/dL 8.5 - 10.5 01/01 S [facility] ELECTROLYTE Potassium 3.5 meq/L 3.5 - 5.1 01/01 S Lvl [facility] ELECTROLYTE Sodium Lvl 144 meq/L 135 - 145 01/01 S [facility] ELECTROLYTE Chloride Lvl 104 meq/L 95 - 109 01/01 [facility] ELECTROLYTE BUN 18 mg/dL 7 - 22 01/01 [facility] ELECTROLYTE Glucose Lvl 107 mg/dL 70 - 99 01/01 [facility] ELECTROLYTE eGFR 80 01/01 Result Comment: The eGFR is calculated using the CKD-EPI formula. In most young, healthy individuals the eGFR will be >90 mL/ min/1.73m2. The eGFR declines with age. An eGFR of 60-89 may be normal in S mL/min/1. some populations, particularly the elderly, for whom the CKD-EPI formula has not been extensively validated. Use of the eGFR is not recommended in the following populations: [address] Individuals with unstable creatinine concentrations, including [...] mg/dL 0.50 - 01/01 S Lvl 1.40 [facility] HEMATOLOGY Segs-Bands # 6.9 K/CMM 1.5 - 8.1 01/01 [facility] HEMATOLOGY Lymphocytes 1.9 K/CMM 1.0 - 5.5 01/01 [facility] HEMATOLOGY Monocytes # 0.8 K/CMM 0.0 - 0.8 01/01 [facility] HEMATOLOGY Basophils # 0.1 K/CMM 0.0 - 0.2 01/01 [facility] HEMATOLOGY Eosinophils 0.6 K/CMM 0.0 - 0.5 01/01 [facility] HEMATOLOGY Segs 66.9 % 45.0 - 01/01 75.0 [facility] HEMATOLOGY Basophils 0.9 % 0.0 - 1.0 01/01 [facility] HEMATOLOGY Eosinophils 5.6 % 0.0 - 4.0 01/01 [facility] HEMATOLOGY Monocytes 7.8 % 2.0 - 12.0 01/01 [facility] HEMATOLOGY Lymphocytes 18.8 % 20.0 - 01/01 40.0 [facility] HEMATOLOGY RDW 14.3 % 11.5 - 01/01 MH 14.5 [facility] HEMATOLOGY Platelet 271 K/CMM 133 - 450 01/01 [facility] HEMATOLOGY MPV 8.2 fL 7.4 - 10.4 01/01 [facility] HEMATOLOGY WBC 10.3 K/CMM 3.7 - 10.4 01/01 [facility] HEMATOLOGY MCHC 33.9 g/dL 32.0 - 01/01 MH 36.0 [facility] HEMATOLOGY RBC 4.35 M/CMM 4.70 - 01/01 MH 6.10 [facility] HEMATOLOGY Hgb 13.3 g/dL 14.0 - 01/01 MH 18.0 [facility] HEMATOLOGY Hct 39.3 % 42.0 - 01/01 54.0 [facility] HEMATOLOGY MCV 90.5 fL 80.0 - 01/01 94.0 [facility] HEMATOLOGY MCH 30.6 pg 27.0 - 01/01 31.0 [facility] URINE AND UA Ketones Negative 01/01 STOOL [facility] URINE AND UA Glucose 150 mg/dL 01/01 STOOL [facility] URINE AND UA Sq Epi None Seen 01/01 STOOL [facility] URINE AND UA Bacteria Few /HPF None Seen 01/01 STOOL /HPF /2017 [facility] URINE AND UA Mucus Few /LPF None Seen 01/01 STOOL /LPF /2017 [facility] URINE AND UA RBC 85 /HPF 0 - 2 01/01 [facility] URINE AND UA Blood Moderate Negative [facility] (12/31/17 11:41 PM) URINE AND UA 4.0 mg/dL 0.1 - 1.0 01/01 STOOL Urobilinogen /2017 [facility] URINE AND UA pH 7.0 5.0 - 8.0 01/01 STOOL [facility] URINE AND UA Leuk Est Moderate Negative 01/01 STOOL [facility] *ABN* [facility] (12/31/17 11:41 PM) URINE AND UA WBC 72 /HPF 0 - 5 01/01 [facility] URINE AND UA Bili Negative Negative 01/01 [facility] (12/31/17 11:41 PM) URINE AND UA Nitrite Negative Negative 01/01 STOOL [facility] (12/31/17 11:41 PM) [facility] URINE AND UA Turbidity Slight Clear 01/01 [facility] (12/31/17 11:41 PM) URINE AND UA Spec Grav 1.018 <=1.030 01/01 [facility] URINE AND UA Color Dark Yellow Yellow 01/01 [facility] (12/31/17 11:41 PM) URINE AND UA Protein >=300 Negative 01/01 STOOL mg/dL mg/dL [facility] ELECTROLYTE Potassium 4.3 meq/L 3.5 - 5.1 12/18 S Lvl [facility] ELECTROLYTE Chloride Lvl 109 meq/L 95 - 109 12/18 S [facility] ELECTROLYTE CO2 28 meq/L 24 - 32 12/18 S [facility] ELECTROLYTE Calcium Lvl 9.8 mg/dL 8.5 - 10.5 12/18 [facility] ELECTROLYTE Sodium Lvl 145 meq/L 135 - 145 12/18 S [facility] ELECTROLYTE Glucose Lvl 144 mg/dL 70 - 99 12/18 S [facility] ELECTROLYTE BUN 17 mg/dL 7 - 22 12/18 S [facility] ELECTROLYTE eGFR 63 12/18 Result Comment: The eGFR is calculated using the CKD-EPI formula. In most young, healthy individuals the eGFR will be >90 mL/ min/1.73m2. The eGFR declines with age. An eGFR of 60-89 may be normal in mL/min/1. some populations, particularly the elderly, for whom the CKD-EPI formula has not been extensively validated. Use of the eGFR is not recommended in the following populations: [address] Individuals with unstable creatinine concentrations, including [...] mg/dL 0.50 - 12/18 S Lvl 1.40 [facility] ELECTROLYTE AGAP 12.3 meq/L 10.0 - 12/18 S 20.0 [facility] HEMATOLOGY Hct 43.7 % 42.0 - 12/18 54.0 [facility] HEMATOLOGY Hgb 14.7 g/dL 14.0 - 12/18 18.0 [facility] Vital Signs Vital Sign Value Date Comments Source BMI Calculated 25.14 02/24/2018 Medical Group Weight 84.091 02/24/2018 Medical Group Height 182.88 cm 02/24/2018 Medical Group Systolic (mm Hg) 115 02/24/2018 [facility] Diastolic (mm Hg) 74 02/24/2018 [facility] Heart Rate 80 02/24/2018 [facility] Temperature Oral (F) 97.8 F 01/02/2018 [facility] Systolic (mm Hg) 155 01/02/2018 [facility] Diastolic (mm Hg) 90 01/02/2018 [facility] Respitory Rate 18 01/02/2018 [facility] Heart Rate 65 01/02/2018 [facility] Respitory Rate 16 01/02/2018 [facility] Temperature Oral (F) 98.2 F 01/02/2018 [facility] Heart Rate 60 01/02/2018 [facility] Systolic (mm Hg) 149 01/02/2018 [facility] Diastolic (mm Hg) 72 01/02/2018 [facility] Heart Rate 65 01/02/2018 [facility] Respitory Rate 16 01/02/2018 [facility] Systolic (mm Hg) 136 01/02/2018 [facility] Diastolic (mm Hg) 61 01/02/2018 [facility] Temperature Oral (F) 98.3 F 01/02/2018 [facility] BMI Calculated 27.89 01/01/2018 [facility] Weight 93.295 01/01/2018 [facility] Height 182.88 cm 01/01/2018 [facility] Systolic (mm Hg) 142 12/23/2017 [facility] Diastolic (mm Hg) 69 12/23/2017 [facility] Respitory Rate 19 12/23/2017 [facility] Systolic (mm Hg) 143 12/23/2017 [facility] Diastolic (mm Hg) 65 12/23/2017 [facility] Respitory Rate 20 12/23/2017 [facility] Systolic (mm Hg) 143 12/23/2017 [facility] Diastolic (mm Hg) 62 12/23/2017 [facility] Respitory Rate 20 12/23/2017 [facility] Heart Rate 74 12/23/2017 [facility] BMI Calculated 25.86 12/18/2017 [facility] Weight 84.091 12/18/2017 [facility] Height 180.34 cm 12/18/2017 [facility] BMI Calculated 27.46 11/28/2017 [facility] Heart Rate 70 11/28/2017 [facility] Systolic (mm Hg) 117 11/28/2017 [facility] Diastolic (mm Hg) 71 11/28/2017 [facility] Height 177.8 cm 11/28/2017 [facility] Weight 86.818 11/28/2017 [facility] Encounters Location Location Encounter Encounter Reason Attending ADM DC Status Source Details Type Number For Provider Date Date Visit Outpatient [id number] [facility] 07/05 [facility] [place] Outpatient [id number] NUCLEAR 08/13 [facility] SCAN VISIT /2015 [place] [facility] [id number] [facility] 08/20 [facility] SCAN VISIT /2015 [place] Outpatient [id number] [facility] 08/20 [facility] [place] Outpatient [id number] [facility] 12/05 [facility] [place] Outpatient [id number] [facility] 06/06 [facility] [place] Outpatient [id number] ECHO VISIT 06/20 [facility] Phone [id number] 07/19 07/21 Cardiology Message /2016 [facility] Outpatient [id number] FRANCES 11/28 [facility] Outpatient [id number] [place] 11/28 11/29 Cardiology David /2017 [facility] Day Surgery [id number] Fer Efren 12/23 12/23 [place] Gomez /2017 [facility] Emergency [id number] Neri 01/01 01/01 [facility] /2017 [facility] Inpatient [id number] Latonya Latonya Pe 01/01 01/02 [facility] /2017 [facility] Phone [id number] 01/06 01/08 Urology Message /2017 [facility] Outpatient [id number] MANN 01/16 [facility] Ambulatory [id number] Mann 01/16 01/16 Urology Pre-Reg Lux /2017 [facility] Outpatient [id number] MANN 02/[address] [facility] /2017 [place] [facility] Outpatient [id number] [place] 02/24 02/25 Urology David /2017 [facility] Outside [id number] 03/19 03/21 Cardiology Medical /2017 [facility] Outpatient [id number] FRANCES 06/05 [facility] [place] Procedures Procedure Code Date Perfomer [place] [address] 02/24/2018 [facility] residual urine and/or bladder capacity by ultrasound, non-imaging CABG - Coronary [id number] 1999 [facility] artery bypass Group graft<sup>1</sup> Cardiac [id number] Open Grafts [facility] catheterization<sup 2004 Group >2</sup> Carotid [id number] Right and left [facility] endarterectomy<sup> Group 3</sup> CABG - Coronary [id number] [address] [facility] artery bypass [facility] graft<sup>1</sup> Cardiac [id number] Open Grafts [facility] catheterization<sup 2004 City >2</sup> Carotid [id number] Right and left [facility] endarterectomy<sup> City 3</sup> Repair of [id number] 1 week ago [facility] hiatal hernia<sup>4</sup> Repair of [id number] 1 week ago [facility] hiatal hernia<sup>4</sup>
--- OUTSIDE RECORDS SUMMARY | 2018-04-15 19:49 | XMS REPORT | Summary of Care ---
:1940 Author Organization [facility] Cardiology [facility] Address [address] [place] [address]- Encounter HQ Encntr_alias(FIN) [id number] Date(s): 03/19/18 - 03/20/[address] [address]- [phone] Vital Signs No data available for this [...] Active Umbilical hernia(Confirmed) Active 1Data migrated from [employer] on 02/05/15.2Data migrated from [employer] on 02/05/15.3Data migrated from [employer] on 02/05/15. Allergies, Adverse Reactions, Alerts Substance Reaction Severity Status NKFA Active NKDA Active Medications No data available for this section Results No data available for this section Immunizations No data available for this section Procedures Procedure Date Related Diagnosis Body Site Status CABG - Coronary artery bypass graft1 Completed Cardiac catheterization2 Completed Carotid endarterectomy3 Completed Repair of diaphragmatic hiatal hernia4 Completed [id number] Grafts [id number] and left41 week ago Social History Social History Type Response Alcohol Past Smoking Status Former smoker; Exposure to Tobacco Smoke None; Cigarette Smoking Last 365 Days No; Reg Smoking Cessation Counseling No entered on: 02/24/18 Assessment and Plan No data available for this section
[2018-04-15] MEDS ORDERED: LIDOCAINE VISCOUS 2% SOLN 15 ML UDC ONE (20:36)
--- NOTE | 2018-04-15 20:52 | ER ---
Nurse's Notes [facility] Name: Abisai Salinas Age: 77 yrs Sex: Male : 1940 Arrival Date: 04/15/2018 Time: 19:46 Bed 7 Private MD: Diagnosis: Retention of urine Presentation: 04/15 19:50 Presenting complaint: Patient states: that his he cath had not been draining well fc today. Home health nurse out to flush it and no changes. Was told to come to ER. Also was having lower abd pain. Upon arrival to ER pt went to bathroom and had large BM. After that his cath started to drain and his abd pain went away. Pt is due to have TURP tomorrow with Dr Nazario. Transition of care: patient was not received from another setting of care. Onset of symptoms was April 15, 2018. Risk Assessment: Do you want to hurt yourself or someone else? Patient reports no desire to harm self or others. Initial Sepsis Screen: Does the patient meet any 2 criteria? No. Patient's initial sepsis screen is negative. Does the patient have a suspected source of infection? No. Patient's initial sepsis screen is negative. Care prior to arrival: None. 19:50 Method Of Arrival: Ambulatory fc 19:50 Acuity: BIB 4 fc Historical: - Allergies: 20:07 No Known Allergies; fc - Home Meds: 20:07 amlodipine 5 mg tab 1 tab once daily [Active]; atorvastatin 40 mg Oral tab 1 tab once fc daily [Active]; Combigan 0.2-0.5 % ophthalmic drop 1 drop every 12 hours [Active]; docusate sodium 100 mg Oral tab 1 tab 2 times per day [Active]; Farxiga 5 mg Oral tab 1 tab once daily [Active]; finasteride 5 mg Oral tab 1 tab once daily [Active]; glipizide 10 mg Oral tab 1 tab 2 times per day [Active]; lisinopril 20 mg Oral tab 1 tab once daily [Active]; Lotrisone 1-0.05 % Topical crea 2 times per day [Active]; metformin 1,000 mg Oral tab 1 tab 2 times per day [Active]; metoprolol tartrate 100 mg Oral tab 1 tab 2 times per day [Active]; pantoprazole 20 mg Oral TbEC 1 tab once daily [Active]; Eliquis 5 mg Oral tab 1 tab on hold for surg [Active]; - PMHx: 20:07 Diabetes - NIDDM; GERD; Hyperlipidemia; Hypertension; LACK OF COORDINATION; retention fc of urine; - Immunization history:: Last tetanus immunization: unknown. - Social history:: Smoking status: Patient/guardian denies using tobacco, Patient/guardian denies using alcohol, street drugs. - Ebola Screening: : Patient negative for fever greater than or equal to 101.5 degrees Fahrenheit, and additional compatible Ebola Virus Disease symptoms Patient denies exposure to infectious person Patient denies travel to an Ebola-affected area in the 21 days before illness onset. Screenin:03 Abuse screen: Denies threats or abuse. Nutritional screening: No deficits noted. fc Tuberculosis screening: No symptoms or risk factors identified. Fall Risk None identified. Assessment: 20:15 Reassessment: Patient states relief after having BM, some urine drained. General: lp1 Appears in no apparent distress. Behavior is appropriate for age. Pain: Complains of pain in suprapubic area Pain currently is 2 out of 10 on a pain scale. Neuro: Level of Consciousness is awake, alert, obeys commands. Cardiovascular: Patient's skin is warm and dry. Respiratory: Respiratory effort is even, unlabored. GI: Abdomen is non-distended. : He in place not draining. EENT: No signs and/or symptoms were reported regarding the EENT system. Derm: Skin is pink, warm \T\ dry. Musculoskeletal: Circulation, motion, and sensation intact. 20:26 Reassessment: Bladder scan of 417ml; He not draining. lp1 Vital Signs: 19:50 BP 142 / 80; Pulse 73; Resp 20; Temp 98.3(O); Pulse Ox 99% on R/A; Weight 78.02 kg; fc Height 6 ft. 0 in. (182.88 cm) (R); Pain 0/10; 19:50 Body Mass Index 23.33 (78.02 kg, 182.88 cm) ED Course: 19:46 Patient arrived in ED. es 19:50 Arm band placed on Patient placed in an exam room, on a stretcher. fc 19:50 Bed in low position. Call light in reach. Side rails up X 1. Pulse ox on. NIBP on. fc 19:50 No provider procedures requiring assistance completed. fc 20:02 Triage completed. fc 20:06 Karly Farias, RN is Primary Nurse. aa1 20:09 Toribio Blakely MD is Attending Physician. kyle 20:10 Manny Hodgson PA is PHCP. rg2 20:35 He cath balloon deflated. lp1 20:40 He cath inserted, using sterile technique, 16 Fr., by or, balloon inflated, to lp1 gravity drainage. 20:51 Iris Nazario MD is Referral Physician. jr8 20:54 Patient did not have IV access during this emergency room visit. lp1 Administered Medications: No medications were administered Outcome: 20:51 Discharge ordered by . jr8 21:11 Discharged to home ambulatory, via wheelchair, with significant other. lp1 21:11 Condition: good 21:11 Discharge instructions given to patient, significant other, Instructed on discharge instructions, follow up and referral plans. Demonstrated understanding of instructions, follow-up care. 21:11 Patient left the ED. lp1 Signatures: Yariel Izquierdo rg2 Karly Farias, RN RN aa1 Toribio Blakely MD MD cha Salyer, Edna es Chretien, Felicia RN RN Katelynn Flores RN RN lp1 Manny Hodgson PA PA jr
--- NOTE | 2018-04-15 20:52 | EDPHYS ---
Physician Documentation [facility] Name: Abisai Salinas Age: 77 yrs Sex: Male : 1940 Arrival Date: 04/15/2018 Time: 19:46 Bed 7 Private MD: ED Physician Toribio Blakely HPI: 04/15 20:32 This 77 yrs old Male presents to ER via Ambulatory with complaints of Problem jr8 With Urinary Catheter. 20:32 Patient with indwelling urinary catheter in place. Stated that he has had minimal urine jr8 output today compared to what he normally has. Stated that he is having fullness in bladder now and pain to lower abdomen. Severity of symptoms: At their worst the symptoms were mild in the emergency department the symptoms are unchanged. The patient has not experienced similar symptoms in the past. The patient has not recently seen a physician. Historical: - Allergies: 20:07 No Known Allergies; fc - Home Meds: 20:07 amlodipine 5 mg tab 1 tab once daily [Active]; atorvastatin 40 mg Oral tab 1 tab once fc daily [Active]; Combigan 0.2-0.5 % ophthalmic drop 1 drop every 12 hours [Active]; docusate sodium 100 mg Oral tab 1 tab 2 times per day [Active]; Farxiga 5 mg Oral tab 1 tab once daily [Active]; finasteride 5 mg Oral tab 1 tab once daily [Active]; glipizide 10 mg Oral tab 1 tab 2 times per day [Active]; lisinopril 20 mg Oral tab 1 tab once daily [Active]; Lotrisone 1-0.05 % Topical crea 2 times per day [Active]; metformin 1,000 mg Oral tab 1 tab 2 times per day [Active]; metoprolol tartrate 100 mg Oral tab 1 tab 2 times per day [Active]; pantoprazole 20 mg Oral TbEC 1 tab once daily [Active]; Eliquis 5 mg Oral tab 1 tab on hold for surg [Active]; - PMHx: 20:07 Diabetes - NIDDM; GERD; Hyperlipidemia; Hypertension; LACK OF COORDINATION; retention fc of urine; - Immunization history:: Last tetanus immunization: unknown. - Social history:: Smoking status: Patient/guardian denies using tobacco, Patient/guardian denies using alcohol, street drugs. - Ebola Screening: : Patient negative for fever greater than or equal to 101.5 degrees Fahrenheit, and additional compatible Ebola Virus Disease symptoms Patient denies exposure to infectious person Patient denies travel to an Ebola-affected area in the 21 days before illness onset. ROS: 20:32 Eyes: Negative for injury, pain, redness, and discharge, ENT: Negative for injury, jr8 pain, and discharge, Neck: Negative for injury, pain, and swelling, Cardiovascular: Negative for chest pain, palpitations, and edema, Respiratory: Negative for shortness of breath, cough, wheezing, and pleuritic chest pain, Back: Negative for injury and pain, MS/Extremity: Negative for injury and deformity, Skin: Negative for injury, rash, and discoloration, Neuro: Negative for headache, weakness, numbness, tingling, and seizure. 20:32 Abdomen/GI: Positive for abdominal pain, Negative for nausea, vomiting, and diarrhea, abdominal cramps, abdominal distension, anorexia, dysphagia, hematemesis, black/tarry stool, rectal pain, rectal bleeding, bowel incontinence, flatulence. 20:32 : Positive for small amounts, difficulty urinating. jr8 Exam: 20:32 Eyes: Pupils equal round and reactive to light, extra-ocular motions intact. Lids and jr8 lashes normal. Conjunctiva and sclera are non-icteric and not injected. Cornea within normal limits. Periorbital areas with no swelling, redness, or edema. ENT: Nares patent. No nasal discharge, no septal abnormalities noted. Tympanic membranes are normal and external auditory canals are clear. Oropharynx with no redness, swelling, or masses, exudates, or evidence of obstruction, uvula midline. Mucous membranes moist. Neck: Trachea midline, no thyromegaly or masses palpated, and no cervical lymphadenopathy. Supple, full range of motion without nuchal rigidity, or vertebral point tenderness. No Meningismus. Cardiovascular: Regular rate and rhythm with a normal S1 and S2. No gallops, murmurs, or rubs. Normal PMI, no JVD. No pulse deficits. Respiratory: Lungs have equal breath sounds bilaterally, clear to auscultation and percussion. No rales, rhonchi or wheezes noted. No increased work of breathing, no retractions or nasal flaring. Back: No spinal tenderness. No costovertebral tenderness. Full range of motion. Skin: Warm, dry with normal turgor. Normal color with no rashes, no lesions, and no evidence of cellulitis. MS/ Extremity: Pulses equal, no cyanosis. Neurovascular intact. Full, normal range of motion. Neuro: Awake and alert, GCS 15, oriented to person, place, time, and situation. Cranial nerves II-XII grossly intact. Motor strength 5/5 in all extremities. Sensory grossly intact. Cerebellar exam normal. Normal gait. 20:32 Abdomen/GI: Inspection: abdomen appears normal, Bowel sounds: active, all quadrants, Palpation: soft, in all quadrants, mild abdominal tenderness, in the suprapubic area, mass, is not appreciated, rebound tenderness, is not appreciated, voluntary guarding, is not appreciated, involuntary guarding, is not appreciated, no appreciated organomegaly, Indicators: McBurney's point is not tender, Walsh's sign is negative, Rovsing's sign is negative, Liver: no appreciated palpable abnormalities, tenderness, is not appreciated. Vital Signs: 19:50 BP 142 / 80; Pulse 73; Resp 20; Temp 98.3(O); Pulse Ox 99% on R/A; Weight 78.02 kg; fc Height 6 ft. 0 in. (182.88 cm) (R); Pain 0/10; 19:50 Body Mass Index 23.33 (78.02 kg, 182.88 cm) fc MDM: 20:09 Patient medically screened. kyle 20:50 Data reviewed: vital signs, nurses notes, and as a result, I will discharge patient. jr8 Data interpreted: Pulse oximetry: on room air is 99 %. Interpretation: normal. Counseling: I had a detailed discussion with the patient and/or guardian regarding: the historical points, exam findings, and any diagnostic results supporting the discharge/admit diagnosis, the need for outpatient follow up, a urologist, to return to the emergency department if symptoms worsen or persist or if there are any questions or concerns that arise at home. Response to treatment: the patient's symptoms have markedly improved after treatment. Administered Medications: No medications were administered Disposition: 04/16 06:37 Co-signature as Attending Physician, Toribio Blakely MD I agree with the assessment and [facility] plan of care. Disposition: 04/15/18 20:51 Discharged to Home. Impression: Retention of urine. - Condition is Stable. - Discharge Instructions: Ash Catheter Care, Adult, Acute Urinary Retention, Male. - Medication Reconciliation Form, Thank You Letter, Antibiotic Education, Prescription Opioid Use form. - Follow up: Iris Nazario MD; When: Tomorrow; Reason: Recheck today's complaints, Continuance of care, Re-evaluation by your physician. - Problem is new. - Symptoms have improved. Signatures: Toribio Blakely MD MD cha Chretien, Felicia RN RN Katelynn Flores RN RN lp1 Manny Hodgson PA PA jr8 Corrections: (The following items were deleted from the chart) 04/15 21:11 20:51 04/15/2018 20:51 Discharged to Home. Impression: Retention of urine. Condition is lp1 Stable. Forms are Medication Reconciliation Form, Thank You Letter, Antibiotic Education, Prescription Opioid Use. Follow up: Iris Nazario; When: Tomorrow; Reason: Recheck today's complaints, Continuance of care, Re-evaluation by your physician. Problem is new. Symptoms have improved. jr8
== END 2018-04-15 21:11 | disposition home or self-care (01) ==
LOC: ER 19:44
DX: R33.9 Retention of urine, unspecified (principal); I10 Essential (primary) hypertension; E78.5 Hyperlipidemia, unspecified; E11.9 Type 2 diabetes mellitus without complications; Z79.02 Long term (current) use of antithrombotics/antiplatelets
CPT/HCPCS: 51702; 99284

== ENCOUNTER 2018-04-16 08:08 | Emergency (ER) | payer OTHER, MEDICARE ==
--- OUTSIDE RECORDS SUMMARY | 2018-04-16 08:11 | XMS REPORT | Continuity of Care Document ---
:1940 Author Organization Interface Problems Problem Status Onset Classification Date Comments Source Date Reported INJURY OF URETER Active [address] AMS, UTI, KIDNEY Active MH INJURY [address] [place] [id number], [id number] Active BILATERAL UMBILICAL 018 [facility] Chest pain<sup>1</sup> Active Problem 03/23/2018 Data Medical 013 migrated Group, from [facility] on 02/05/15. Carotid Active Problem 03/23/2018 Medical atherosclerosis Group,[facility] Coronary Active Problem 03/23/2018 Data Medical arteriosclerosis<sup>2 migrated Group, </sup> from [facility] on 02/05/15. Diabetes mellitus Active Problem 03/23/2018 Medical Group,[facility] Hyperlipidemia Active Problem 03/23/2018 Medical Group,[facility] Hypertensive Active Problem 03/23/2018 Data Medical disorder<sup>3</sup> migrated Group, from [facility] on 02/05/15. Mitral regurgitation Active Problem 03/23/2018 Medical Group,[facility] Nonspecific ST-T wave Active Problem 03/23/2018 Medical electrocardiographic Group, changes [facility] Persistent atrial Active Problem 03/23/2018 Medical fibrillation Group,[facility] Tricuspid Active Problem 03/23/2018 Medical regurgitation Group,[facility] CAD (<span Active Problem 03/23/2018 ID="[id number]">[facility]</span>[facility], Medical Group Hernia, femoral, Active Problem 03/23/2018 bilateral [facility], Medical Group Reflux esophagitis Active Problem 03/23/2018 [facility], Medical Group Glaucoma Active Problem 03/23/2018 [facility], Medical Group Hypertension Active Problem 03/23/2018 [facility], Medical Group Umbilical hernia Active Problem 03/23/2018 [facility], Medical Group Unspecified injury of 01/05/2018 ureter, initial [facility] encounter [facility] UNSPECIFIED INJURY OF Active URETER, INITIAL EN [facility] ALTERED MENTAL STATUS, Active UNSPECIFIED [facility] AMS/ UTI/ DIRECT ADMIT Active [facility] Medications Medication Details Route Status Patient Ordering Order Source Instructions Provider Date Ciprofloxacin 250 mg=1 tab, Active 02/24/ 250 MG Oral PO, Q12H, X 7 2018 Medical Tablet [Cipro] day, # 14 tab, 0 Group Refill(s), Pharmacy: [facility] [id number] Eliquis 5 mg, 1 tab, Inactive Route: PO, Drug 2017 [facility] form: TAB, BID, City Dosing Weight 93.295, kg, Start date: 01/02/18 17:00:00 CDT, Duration: 30 day, Stop date: 02/01/18 9:00:00 CDTNotes: Same as: Eliquis Acetaminophen 1 tab, PO, Q6H, Active 300 MG / Codeine PRN Pain, X 5 2017 [facility] Phosphate 30 MG day, # 20 tab, 0 [facility] Oral Tablet Refill(s) [Tylenol with Codeine #3] Hydrocortisone 5 1 appl, TOP, Active MG/ML Topical BID, PRN Rash, 0 2017 [facility] Cream Refill(s) [facility] Cephalexin 500 500 mg=1 cap, Active MG Oral Capsule PO, TID, X 7 2018 [facility] [Keflex] day, # 21 cap, 0 City Refill(s) Hydrocortisone 5 1 appl, Route: Inactive MG/ML Topical TOP, BID, Drug 2017 [facility] Cream form: CRM, PRN [facility] Rash, Start date: 01/02/18 10:55:00 CDT, Duration: 30 day, Stop date: 02/01/18 10:54:00 CDT Brimonidine 1 drp, Route: Inactive tartrate 2 MG/ML BOTH EYES, Q12H, 2017 [facility] / Timolol 5 Drug form: SOLN, City MG/ML Ophthalmic Start date: Solution 01/01/18 [Combigan] 21:00:00 CDT, Duration: 30 day, Stop date: 01/31/18 9:00:00 CDT timolol 1 drp, Route: No Longer ophthalmic BOTH EYES, Q12H, Active 2017 [facility] Drug form: JAIRO [facility] Start date: 01/01/18 21:00:00 CDT, Duration: 30 day, Stop date: 01/31/18 9:00:00 CDTNotes: (Same As: Timoptic, Betimol) metoprolol 100 mg, 2 tab, No Longer tartrate Route: PO, Drug Active 2017 [facility] form: TAB, Q12H, [facility] Dosing Weight 93.295, kg, Start date: 01/01/18 21:00:00 CDT, Duration: 30 day, Stop date: 01/31/18 9:00:00 CDTNotes: (Same as: Lopressor) brimonidine 1 drp, Route: No Longer ophthalmic BOTH EYES, Q12H, Active 2017 [facility] Drug form: JAIRO [facility] Start date: 01/01/18 21:00:00 CDT, Duration: 30 day, Stop date: 01/31/18 9:00:00 CDTNotes: (Same As: Alphagan) latanoprost 1 drp, Route: No Longer ophthalmic Each Affected Active 2017 [facility]: MIKAN, Start date: 01/01/18 21:00:00 CDT, Duration: 30 day, Stop date: 01/30/18 21:00:00 CDTNotes: Keep refrigerated. (Same as:Xalatan) Opened bottle may be stored at room temperature for 6 weeks Magnesium 2 gm, 50 mL, Inactive Sulfate Route: IVPB, 2017 [facility] Drug form: INJ [facility] Q2H, Dosing Weight 93.295, kg, Total dose=4 gm, Start date: 01/01/18 18:00:00 CDT, Duration: 2 doses or times, Stop date: 01/01/18 20:00:00 CDTNotes: WASTE: F/P - Sink; E - [facility] travoprost 0.04 1 drp, Route: Inactive MG/ML Ophthalmic BOTH EYES, Drug 2017 [facility] Solution Form: MIKAJimmy [facility] [Travatan] Dosing Weight 93.295, kg, QPM, Start date: 01/01/18 17:00:00 CDT, Duration: 30 day, Stop date: 01/30/18 17:00:00 CDT Protonix 20 mg, 1 tab, No Longer Route: PO, Drug Active 2017 [facility] form: ECTAB, City Before Lunch, Dosing Weight 93.295, kg, Start date: 01/01/18 11:30:00 CDT, Duration: 30 day, Stop date: 01/30/18 11:30:00 CDTNotes: Tablet should not be chewed or crushed. Docusate 100 mg, 1 cap, No Longer Route: PO, Drug Active 2017 [facility] form: CAP, BID, [facility] Dosing Weight 93.295, kg, Start date: 01/01/18 9:00:00 CDT, Duration: 30 day, Stop date: 01/30/18 17:00:00 CDTNotes: (Same as: Colace) (Do Not Crush) albumin human 25 gm, 100 mL, Inactive 25% intravenous Route: [id number] solution Drug form: INJ, City ONCE, Dosing Weight 93.295, kg, Start date: 01/01/18 5:48:00 CDT, Stop date: 01/01/18 5:48:00 CDTNotes: LOT#: Mfg: ____ WASTE: F/P - Red; E -Red (Same as: Albuminar) "blood product derivative" NS (Bolus) IV 1,000 mL, 1,000 Inactive ml/hr, Infuse 2017 [facility] Over: 1 hr, [facility] Route: IV, 1,000, Drug form: INJ, ONCE, Priority: STAT, Dosing Weight 93.295 kg, Start date: 01/01/18 5:48:00 CDT, Stop date: 01/01/18 5:48:00 CDT Ceftriaxone 1 gm, Route: No Longer IVPB, [id number], Active 2017 [facility] Dosing Weight [facility] 93.295, kg, Start date: 01/01/18 0:00:00 CDT, Duration: 3 day, Stop date: 01/03/18 0:00:00 CDT, ABX Indication: Urinary Tract InfectionNotes: (Same As: Rocephin). Use with 100 mL NS and infuse over 30 min MEDICATION WASTE Product Size: 1000 mg Product Wasted: ___ mg Insulin Lispro 2 unit, 0.02 mL, No Longer Route: SUB-Q, [address] Drug form: SOLN [facility] TID-Before Meals, Dosing Weight 93.295, kg, PRN [...] mL, No Longer Syringe Route: IVP, Drug [address] Form: INJ, [facility] Dosing Weight 93.295, kg, PRN, PRN Blood Glucose Results, Start date: 12/31/17 23:08:00 CDT, Duration: 30 day, Stop date: 01/30/18 23:07:00 CDT Glucagon 1 mg, Route: IM, No Longer Drug form: [address] PDR/INJ, PRN, [facility] Dosing Weight 93.295, kg, PRN Blood Glucose Results, Start date: 12/31/17 23:08:00 CDT, Duration: 30 day, Stop date: 01/30/18 23:07:00 CDT Saline Flush 10 ml, Route: No Longer 0.9% IVP, Drug Form: [address] INJ, Dosing City Weight 93.295, kg, PRN, PRN Line Flush, Start date: 12/31/17 23:07:00 CDT, Duration: 30 day, Stop date: 01/30/18 23:06:00 CDTNotes: (Same as: BD Posiflush) Ondansetron 4 mg, 1 tab, No Longer Route: PO, Drug [address] form: TABDIS, [facility] Q6H, Dosing Weight 93.295, kg, PRN Nausea & Vomiting, Start date: 12/31/17 23:07:00 CDT, Duration: 30 day, Stop date: 01/30/18 23:06:00 CDTNotes: (Same as: Zofran ODT) Morphine 3 mg, 1.5 mL, No Longer Route: PO, Drug Active [address] [place] [address] form: SOLN, Q4H, [facility] Dosing Weight 93.295, kg, PRN Pain Score 7-10, Start date: 12/31/17 23:07:00 CDT, Stop date: 01/30/18 23:06:00 CDTNotes: (Same as:MORPhine Sulfate) Acetaminophen 650 mg, 2 tab, No Longer Route: PO, Drug Active [address] [place] [address] form: TAB, Q4H, [facility] Dosing Weight 93.295, kg, PRN Pain 1-3/Temp > 100.4 F, Start date: 12/31/17 23:07:00 CDT, Duration: 30 day, Stop date: 01/30/18 23:06:00 CDTNotes: Do not exceed 4 gm/day. (Same as: Tylenol) Acetaminophen 1 tab, Route: No Longer 325 MG / PO, Drug Form: [address] Hydrocodone TAB, Dosing [facility] Bitartrate 5 MG Weight 93.295, Oral Tablet kg, Q4H, PRN Pain Score 4-6, Start date: 12/31/17 23:07:00 CDT, Duration: 30 day, Stop date: 01/30/18 23:06:00 CDTNotes: (Same as: [place] 325/5) Do not exceed 4gm/day of acetaminophen. Sodium Chloride 1,000 mL, Rate: No Longer 0.9% IV 1,000 mL 75 ml/hr, Infuse Active [address] [place] [address] over: 13.3 hr, [facility] Route: IV, Dosing Weight 93.295 kg, Total Volume: 1,000, Start date: 12/31/17 23:07:00 CDT, Duration: 30 day, Stop date: 01/30/18 23:06:00 CDT, 2.19, m2 glycopyrrolate Route: IV, Drug Inactive (ANES) form: INJ, ONCE, 2017 [facility] Stop date: [facility] 12/23/17 16:01:00 CDT neostigmine Route: IV, Drug Inactive (ANES) form: INJ, ONCE, 2017 [facility] Stop date: [facility] 12/23/17 16:01:00 CDT ondansetron Route: IV, Drug Inactive (ANES) form: INJ, ONCE, 2017 [facility] Stop date: [facility] 12/23/17 15:52:00 CDT Hydralazine 10 mg, Route: Inactive IVP, Q20Min, 2017 [facility] Dosing Weight [facility] 84.091, kg, PRN Elevated BP, Start date: 12/23/17 14:45:00 CDT, Duration: 2 doses or times, Stop date: Limited # of times Ondansetron 4 mg, Route: Inactive IVP, ONCE, 2017 [facility] Dosing Weight [facility] 84.091, kg, PRN Nausea & Vomiting, Start date: 12/23/17 14:45:00 CDT Morphine 2 mg, Route: Inactive IVP, Q5Min, 2017 [facility] Dosing Weight [facility] 84.091, kg, PRN Pain Score 4-6, Start date: 12/23/17 14:45:00 CDT, Duration: 5 doses or times, Stop date: Limited # of times Naloxone 0.4 mg, Route: Inactive IVP, Q2MIN, 2017 [facility] Dosing Weight [facility] 84.091, kg, PRN Narcotic Reversal, Start date: 12/23/17 14:45:00 CDT, Duration: 8 doses or times, Stop date: Limited # of times Flumazenil 0.2 mg, Route: Inactive IVP, PRN, Dosing 2017 [facility] Weight 84.091, City kg, PRN Benzodiazepine Reversal, Initial dose, Start date: 12/23/17 14:45:00 CDT, Duration: 30 day, Stop date: 01/22/18 14:44:00 CDT Hydromorphone 0.5 mg, Route: Inactive IVP, Q5Min, 2017 [facility] Dosing Weight [facility] 84.091, kg, PRN Pain Score 7-10, Start date: 12/23/17 14:45:00 CDT, Duration: 4 doses or times, Stop date: Limited # of times rocuronium Route: IV, Drug Inactive 12/23/ MH (ANES) form: INJ, ONCE, 2017 [facility] Stop date: [facility] 12/23/17 14:22:00 CDT fentaNYL (ANES) Route: IV, Drug Inactive 12/23/ form: INJ, ONCE, 2017 [facility] Stop date: [facility] 12/23/17 14:17:00 CDT lidocaine (ANES) Route: IV, Drug Inactive 12/23/ form: INJ, ONCE, 2017 [facility] Stop date: [facility] 12/23/17 14:17:00 CDT propofol (ANES) Route: IV, Drug Inactive 12/23/ form: INJ, ONCE, 2017 [facility] Stop date: [facility] 12/23/17 14:17:00 CDT ePHEDrine (ANES) Route: IV, Drug Inactive 12/23/ form: INJ, ONCE, 2017 [facility] Stop date: [facility] 12/23/17 14:02:00 CDT ceFAZolin (ANES) Route: IV, Drug Inactive 12/23/ form: INJ, ONCE, 2017 [facility] Stop date: [facility] 12/23/17 14:02:00 CDT acetaminophen Route: IV, Drug Inactive (ANES) 10 mg form: INJ, Start 2017 [facility] date: 12/23/17 [facility] 13:24:00 CDT, Stop date: 12/23/17 14:24:00 CDT Lactated Ringers Route: IV, Total Inactive Injection IV Volume: 1,000, 2017 [facility] (ANES) 1000 mL Start date: [facility] 12/23/17 13:12:00 CDT, Stop date: 12/23/17 14:12:00 CDT Lidocaine 0.5 mL, Route: Inactive Hydrochloride 10 INTRADERM, 2017 [facility] MG/ML Injectable Dosing Weight [facility] Solution 84.091, kg, ONCALL, Start date: 12/23/17 11:00:00 CDT, Duration: 1 doses or times Sodium Chloride 1,000 mL, Rate: Inactive 0.9% IV 1000 mL 25 ml/hr, Infuse 2017 [facility] over: 40 hr, [facility] Route: IV, Dosing Weight 84.091 kg, Total Volume: 1,000, Start date: 12/23/17 10:33:00 CDT, Duration: 30 day, Stop date: 01/22/18 10:32:00 CDT, 2.06, m2 Ancef + sterile 2 gm, Route: Inactive water 20 mL IVPB, ONCE, 2017 [facility] Weight [facility] 84.091, kg, Start date: 12/23/17 10:33:00 CDT, [...] 2017 Medical [Eliquis] 1 Refill(s), Group Pharmacy: [facility] [id number] Allergies, Adverse Reactions, Alerts Substance Category Reaction Severity Reaction Status Date Comments Source type Reported NKDA Assertion Drug Active allergy Medical Group NKFA Assertion Food Active allergy Medical Group Immunizations Immunization Date Given Site Status Last Updated Comments Source Results Order Name Results Value Reference Date Interpretation Comments Source Range CHEM PANEL Magnesium 2.2 mg/dL 1.8 - 2.4 01/02 Lvl [facility] ELECTROLYTE AGAP 12.7 meq/L 10.0 - 01/02 S 20.0 [facility] ELECTROLYTE CO2 28 meq/L 24 - 32 01/02 S [facility] ELECTROLYTE Calcium Lvl 7.7 mg/dL 8.5 - 10.5 01/02 S [facility] ELECTROLYTE BUN 12 mg/dL 7 - 22 01/02 S [facility] ELECTROLYTE Sodium Lvl 143 meq/L 135 - 145 01/02 S [facility] ELECTROLYTE Chloride Lvl 106 meq/L 95 - 109 01/02 [facility] ELECTROLYTE Potassium 3.7 meq/L 3.5 - 5.1 01/02 S Lvl /2017 [facility] ELECTROLYTE eGFR 85 01/02 Result Comment: The eGFR is calculated using the CKD-EPI formula. In most young, healthy individuals the eGFR will be >90 mL/ min/1.73m2. The eGFR declines with age. An eGFR of 60-89 may be normal in [facility] mL/min/1.7 some populations, particularly the elderly, for whom the CKD-EPI formula has not been extensively validated. Use of the eGFR is not recommended in the following populations: [address] Individuals with unstable creatinine concentrations, including [...] 161 mg/dL 70 - 99 01/02 S [facility] ELECTROLYTE Creatinine 0.81 mg/dL 0.50 - 01/02 S Lvl 1.40 [facility] HEMATOLOGY MPV 8.2 fL 7.4 - 10.4 01/02 [facility] HEMATOLOGY Platelet 247 K/CMM 133 - 450 01/02 [facility] HEMATOLOGY RDW 14.0 % 11.5 - 01/02 MH 14. [facility] HEMATOLOGY WBC 9.7 K/CMM 3.7 - 10.4 01/02 [facility] HEMATOLOGY RBC 3.93 M/CMM 4.70 - 01/02 MH 6.10 [facility] HEMATOLOGY Hgb 12.0 g/dL 14.0 - 01/02 MH 18.0 [facility] HEMATOLOGY Hct 35.4 % 42.0 - 01/02 MH 54.0 [facility] HEMATOLOGY MCV 90.1 fL 80.0 - 01/02 94.0 [facility] HEMATOLOGY MCH 30.6 pg 27.0 - 01/02 MH 31.0 [facility] MCHC 34.0 g/dL 32.0 - 01/02 MH 36.0 [facility] HEMATOLOGY Basophils # 0.1 K/CMM 0.0 - 0.2 01/02 [facility] HEMATOLOGY Segs 66.9 % 45.0 - 01/02 MH 75.0 [facility] HEMATOLOGY Eosinophils 4.7 % 0.0 - 4.0 01/02 [facility] HEMATOLOGY Basophils 1.1 % 0.0 - 1.0 01/02 [facility] HEMATOLOGY Lymphocytes 19.1 % 20.0 - 01/02 MH 40.0 [facility] HEMATOLOGY Monocytes 8.2 % 2.0 - 12.0 01/02 [facility] HEMATOLOGY Segs-Bands # 6.5 K/CMM 1.5 - 8.1 01/02 [facility] HEMATOLOGY Eosinophils 0.5 K/CMM 0.0 - 0.5 01/02 # [facility] HEMATOLOGY Monocytes # 0.8 K/CMM 0.0 - 0.8 01/02 [facility] HEMATOLOGY Lymphocytes 1.9 K/CMM 1.0 - 5.5 01/02 # [facility] Chest 1view Chest 1view EXAM: Chest 1view DX 01/01 - DX DX - [facility] HISTORY: - mild [facility] [place] COMPARISON: None Read by: Darin Thompson MD Dictated Date/time: 01/01/18 13:49 Electronically Signed by: Darin Thompson MD 01/01/18 13:49 FINAL REPORT Impression: Cardiomegaly with CABG and median sternotomy noted. There is mild interstitial edema and obscuration of the left lung base possibly related to a small effusion and/or atelectasis. CARDIAC BNP 221 pg/mL <=100 01/01 ENZYMES pg/mL /2017 [facility] CHEM PANEL Magnesium 1.4 mg/dL 1.8 - 2.4 01/01 Lvl [facility] ELECTROLYTE AGAP 10.5 meq/L 10.0 - 01/01 S 20.0 [facility] ELECTROLYTE CO2 33 meq/L 24 - 32 01/01 S [facility] ELECTROLYTE Calcium Lvl 8.2 mg/dL 8.5 - 10.5 01/01 S [facility] ELECTROLYTE Potassium 3.5 meq/L 3.5 - 5.1 01/01 S Lvl [facility] ELECTROLYTE Sodium Lvl 144 meq/L 135 - 145 01/01 S [facility] ELECTROLYTE Chloride Lvl 104 meq/L 95 - 109 01/01 [facility] ELECTROLYTE BUN 18 mg/dL 7 - 22 01/01 [facility] ELECTROLYTE Glucose Lvl 107 mg/dL 70 - 99 01/01 [facility] ELECTROLYTE eGFR 80 01/01 Result Comment: [...] is not recommended in the following populations: [address] Individuals with unstable creatinine concentrations, including [...] mg/dL 0.50 - 01/01 S Lvl 1.40 [facility] HEMATOLOGY Segs-Bands # 6.9 K/CMM 1.5 - 8.1 01/01 [facility] HEMATOLOGY Lymphocytes 1.9 K/CMM 1.0 - 5.5 01/01 [facility] HEMATOLOGY Monocytes # 0.8 K/CMM 0.0 - 0.8 01/01 [facility] HEMATOLOGY Basophils # 0.1 K/CMM 0.0 - 0.2 01/01 [facility] HEMATOLOGY Eosinophils 0.6 K/CMM 0.0 - 0.5 01/01 [facility] HEMATOLOGY Segs 66.9 % 45.0 - 01/01 75.0 [facility] HEMATOLOGY Basophils 0.9 % 0.0 - 1.0 01/01 [facility] HEMATOLOGY Eosinophils 5.6 % 0.0 - 4.0 01/01 [facility] HEMATOLOGY Monocytes 7.8 % 2.0 - 12.0 01/01 [facility] HEMATOLOGY Lymphocytes 18.8 % 20.0 - 01/01 40.0 [facility] HEMATOLOGY RDW 14.3 % 11.5 - 01/01 MH 14.5 [facility] HEMATOLOGY Platelet 271 K/CMM 133 - 450 01/01 [facility] HEMATOLOGY MPV 8.2 fL 7.4 - 10.4 01/01 [facility] HEMATOLOGY WBC 10.3 K/CMM 3.7 - 10.4 01/01 [facility] HEMATOLOGY MCHC 33.9 g/dL 32.0 - 01/01 MH 36.0 [facility] HEMATOLOGY RBC 4.35 M/CMM 4.70 - 01/01 MH 6.10 [facility] HEMATOLOGY Hgb 13.3 g/dL 14.0 - 01/01 MH 18.0 [facility] HEMATOLOGY Hct 39.3 % 42.0 - 01/01 54.0 [facility] HEMATOLOGY MCV 90.5 fL 80.0 - 01/01 94.0 [facility] HEMATOLOGY MCH 30.6 pg 27.0 - 01/01 31.0 [facility] URINE AND UA Ketones Negative 01/01 STOOL [facility] URINE AND UA Glucose 150 mg/dL 01/01 STOOL [facility] URINE AND UA Sq Epi None Seen 01/01 STOOL [facility] URINE AND UA Bacteria Few /HPF None Seen 01/01 STOOL /HPF /2017 [facility] URINE AND UA Mucus Few /LPF None Seen 01/01 STOOL /LPF /2017 [facility] URINE AND UA RBC 85 /HPF 0 - 2 01/01 [facility] URINE AND UA Blood Moderate Negative 01/[address] [facility] (12/31/17 11:41 PM) URINE AND UA 4.0 mg/dL 0.1 - 1.0 01/01 STOOL Urobilinogen /2017 [facility] URINE AND UA pH 7.0 5.0 - 8.0 01/01 STOOL [facility] URINE AND UA Leuk Est Moderate Negative 01/01 STOOL [facility] *ABN* [facility] (12/31/17 11:41 PM) URINE AND UA WBC 72 /HPF 0 - 5 01/01 [facility] URINE AND UA Bili Negative Negative 01/[address] [facility] (12/31/17 11:41 PM) URINE AND UA Nitrite Negative Negative 01/01 STOOL [facility] (12/31/17 11:41 PM) [facility] URINE AND UA Turbidity Slight Clear 01/[address] [facility] (12/31/17 11:41 PM) URINE AND UA Spec Grav 1.018 <=1.030 01/01 [facility] URINE AND UA Color Dark Yellow Yellow 01/[address] [facility] (12/31/17 11:41 PM) URINE AND UA Protein >=300 Negative 01/01 STOOL mg/dL mg/dL [facility] ELECTROLYTE Potassium 4.3 meq/L 3.5 - 5.1 12/18 S Lvl [facility] ELECTROLYTE Chloride Lvl 109 meq/L 95 - 109 12/18 S [facility] ELECTROLYTE CO2 28 meq/L 24 - 32 12/18 S [facility] ELECTROLYTE Calcium Lvl 9.8 mg/dL 8.5 - 10.5 12/18 [facility] ELECTROLYTE Sodium Lvl 145 meq/L 135 - 145 12/18 S [facility] ELECTROLYTE Glucose Lvl 144 mg/dL 70 - 99 12/18 S [facility] ELECTROLYTE BUN 17 mg/dL 7 - 22 12/18 S [facility] ELECTROLYTE eGFR 63 12/18 Result Comment: [...] is not recommended in the following populations: [address] Individuals with unstable creatinine concentrations, including [...] mg/dL 0.50 - 12/18 S Lvl 1.40 [facility] ELECTROLYTE AGAP 12.3 meq/L 10.0 - 12/18 S 20.0 [facility] HEMATOLOGY Hct 43.7 % 42.0 - 12/18 54.0 [facility] HEMATOLOGY Hgb 14.7 g/dL 14.0 - 12/18 18.0 [facility] Vital Signs Vital Sign Value Date Comments Source BMI Calculated 25.14 02/24/2018 [facility] Weight 84.091 02/24/2018 [facility] Height 182.88 cm 02/24/2018 [facility] Systolic (mm Hg) 115 02/24/2018 [facility] Diastolic (mm Hg) 74 02/24/2018 [facility] Heart Rate 80 02/24/2018 [facility] Temperature Oral (F) 97.8 F 01/02/2018 [facility] Systolic (mm Hg) 155 01/02/2018 [facility] Diastolic (mm Hg) 90 01/02/2018 [facility] Respitory Rate 18 01/02/2018 [facility] Heart Rate 65 01/02/2018 [facility] Respitory Rate 16 01/02/2018 [facility] Temperature Oral (F) 98.2 F 01/02/2018 [facility] Heart Rate 60 01/02/2018 [facility] Systolic (mm Hg) 149 01/02/2018 [facility] Diastolic (mm Hg) 72 01/02/2018 [facility] Heart Rate 65 01/02/2018 [facility] Respitory Rate 16 01/02/2018 [facility] Systolic (mm Hg) 136 01/02/2018 [facility] Diastolic (mm Hg) 61 01/02/2018 [facility] Temperature Oral (F) 98.3 F 01/02/2018 [facility] BMI Calculated 27.89 01/01/2018 [facility] Weight 93.295 01/01/2018 [facility] Height 182.88 cm 01/01/2018 [facility] Systolic (mm Hg) 142 12/23/2017 [facility] Diastolic (mm Hg) 69 12/23/2017 [facility] Respitory Rate 19 12/23/2017 [facility] Systolic (mm Hg) 143 12/23/2017 [facility] Diastolic (mm Hg) 65 12/23/2017 [facility] Respitory Rate 20 12/23/2017 [facility] Systolic (mm Hg) 143 12/23/2017 [facility] Diastolic (mm Hg) 62 12/23/2017 [facility] Respitory Rate 20 12/23/2017 [facility] Heart Rate 74 12/23/2017 [facility] BMI Calculated 25.86 12/18/2017 [facility] Weight 84.091 12/18/2017 [facility] Height 180.34 cm 12/18/2017 [facility] BMI Calculated 27.46 11/28/2017 [facility] Group Heart Rate 70 11/28/2017 [facility] Systolic (mm Hg) 117 11/28/2017 [facility] Diastolic (mm Hg) 71 11/28/2017 [facility] Height 177.8 cm 11/28/2017 [facility] Weight 86.818 11/28/2017 Medical Group Encounters Location Location Encounter Encounter Reason Attending ADM DC Status Source Details Type Number For Provider Date Date Visit Outpatient [id number] [facility] 07/05 [facility] [place] Outpatient [id number] NUCLEAR 08/13 [facility] SCAN VISIT /2015 [place] [facility] [id number] [facility] 08/20 [facility] SCAN VISIT /2015 [place]patient [id number] [facility] 08/20 [facility] [place] Outpatient [id number] [facility] 12/05 [facility] [place] Outpatient [id number] [facility] 06/06 [facility] [place] Outpatient [id number] ECHO VISIT 06/20 [facility] Phone [id number] 07/19 07/21 Cardiology Message /2016 [facility] Outpatient [id number] FRANCES 11/28 [facility] Outpatient [id number] Anderson 11/28 11/29 Cardiology David /2017 [facility] Day Surgery [id number] Fer Efren 12/23 12/23 [place] Gomez /2017 [facility] Emergency [id number] Neri 01/01 01/01 [facility] /2017 [facility] Inpatient [id number] Latonya Latonya Pe 01/01 01/02 [facility] /2017 [facility] Phone [id number] 01/06 01/08 Urology Message /2017 [facility] Outpatient [id number] MANN 01/16 [facility] Ambulatory [id number] Mann 01/16 01/16 Urology Pre-Reg Lux /2017 [facility] Outpatient [id number] MANN 02/24 Active [facility] /2017 [place] [facility] Outpatient [id number] Anderson 02/24 02/25 Urology David /2017 [facility] Outside [id number] 03/19 03/21 Cardiology Medical /2017 [facility] Outpatient [id number] FRANCES 06/05 [facility] [place] Procedures Procedure Code Date Perfomer [place] [address] 02/24/2018 [facility] residual urine and/or bladder capacity by ultrasound, non-imaging CABG - Coronary [id number] 1999 [facility] artery bypass Group graft<sup>1</sup> Cardiac [id number] Open Grafts [facility] catheterization<sup 2004 Group >2</sup> Carotid [id number] Right and left [facility] endarterectomy<sup> Group 3</sup> CABG - Coronary [id number] 1999 [facility] artery bypass [facility] graft<sup>1</sup> Cardiac [id number] Open Grafts [facility] catheterization<sup 2004 City >2</sup> Carotid [id number] Right and left [facility] endarterectomy<sup> City 3</sup> Repair of [id number] 1 week ago [facility] hiatal hernia<sup>4</sup> Repair of [id number] 1 week ago [facility] hiatal hernia<sup>4</sup>
--- NOTE | 2018-04-16 10:25 | ER ---
Nurse's Notes [facility] Name: Abisai Salinas Age: 77 yrs Sex: Male : 1940 Arrival Date: 04/16/2018 Time: 08:10 Bed 6 Private MD: out of town, doctor Diagnosis: Retention of urine Presentation: 04/16 08:18 Presenting complaint: Patient states: Pt was seen here last night and a he catheter sv was placed. Pt was discharged home. Spouse states he has had no urinary output since 1030pm last night. Pt is having TURP done at [address] Nazario. Transition of care: patient was not received from another setting of care. Onset of symptoms was April 15, 2018 at 22:30. Risk Assessment: Do you want to hurt yourself or someone else? Patient reports no desire to harm self or others. Initial Sepsis Screen: Does the patient meet any 2 criteria? No. Patient's initial sepsis screen is negative. Does the patient have a suspected source of infection? No. Patient's initial sepsis screen is negative. Care prior to arrival: None. 08:18 Method Of Arrival: Wheelchair sv 08:18 Acuity: BIB 3 sv Triage Assessment: 08:20 General: Appears in no apparent distress. uncomfortable, Behavior is calm, cooperative, sv appropriate for age. Pain: Complains of pain in head of penis and meatus Pain currently is 3 out of 10 on a pain scale. Pain began 1 day ago. EENT: No signs and/or symptoms were reported regarding the EENT system. Neuro: Level of Consciousness is awake, alert, obeys commands, Oriented to person, place, time, situation, Moves all extremities. Full function Gait is steady. Cardiovascular: Patient's skin is warm and dry. Respiratory: Respiratory effort is even, unlabored, Respiratory pattern is regular, symmetrical. : He in place to gravity drainage green thick drainage noted at insertion site of he catheter. Derm: Skin is normal. Musculoskeletal: Range of motion: intact in all extremities. Historical: - Allergies: : No Known Allergies; sv - Home Meds: : amlodipine 5 mg tab 1 tab once daily [Active]; atorvastatin 40 mg Oral tab 1 tab once sv daily [Active]; Combigan 0.2-0.5 % ophthalmic drop 1 drop every 12 hours [Active]; docusate sodium 100 mg Oral tab 1 tab 2 times per day [Active]; Eliquis Oral [Active]; Eliquis 5 mg Oral tab 1 tab on hold for surg [Active]; Farxiga 5 mg Oral tab 1 tab once daily [Active]; finasteride 5 mg Oral tab 1 tab once daily [Active]; glipizide 10 mg Oral tab 1 tab 2 times per day [Active]; lisinopril 20 mg Oral tab 1 tab once daily [Active]; Lotrisone 1-0.05 % Topical crea 2 times per day [Active]; metformin 1,000 mg Oral tab 1 tab 2 times per day [Active]; metoprolol tartrate 100 mg Oral tab 1 tab 2 times per day [Active]; pantoprazole 20 mg Oral TbEC 1 tab once daily [Active]; - PMHx: 08:27 Diabetes - NIDDM; GERD; Hyperlipidemia; Hypertension; LACK OF COORDINATION; retention sv of urine; - Immunization history:: Adult Immunizations up to date. - Social history:: Smoking status: Patient/guardian denies using tobacco. - Ebola Screening: : No symptoms or risks identified at this time. Screenin:20 Abuse screen: Denies threats or abuse. Denies injuries from another. Nutritional sv screening: No deficits noted. Tuberculosis screening: No symptoms or risk factors identified. Fall Risk None identified. Assessment: 08:30 Reassessment: No changes from previously documented assessment. See triage assessment. sv 09:20 Reassessment: Patient appears in no apparent distress at this time. No changes from sv previously documented assessment. Patient and/or family updated on plan of care and expected duration. Pain level reassessed. Patient is alert, oriented x 3, equal unlabored respirations, skin warm/dry/pink. 10:35 Reassessment: Patient appears in no apparent distress at this time. Patient and/or sv family updated on plan of care and expected duration. Pain level reassessed. Patient is alert, oriented x 3, equal unlabored respirations, skin warm/dry/pink. Vital Signs: 08:28 BP 166 / 90; Pulse 64; Resp 18; Temp 98.3; Pulse Ox 100% ; sv 09:40 BP 165 / 72; Pulse 89; Resp 18; Pulse Ox 98% on R/A; sv 10:20 BP 162 / 77; Pulse 88; Resp 18; Pulse Ox 97% ; sv ED Course: 08:10 Patient arrived in ED. mr 08:10 out of town, doctor is Private Physician. mr 08:15 [facility]. pm1 08:15 Axel Palomares MD is Attending Physician. pm1 08:20 Patient has correct armband on for positive identification. Placed in gown. Bed in low sv position. Call light in reach. Side rails up X2. Adult w/ patient. Pulse ox on. NIBP on. Door closed. Head of bed elevated. 08:22 Ilda Iglesias, MICHI is Primary Nurse. sv 08:24 Triage completed. sv 08:28 Arm band placed on right wrist. sv 08:30 Bladder scan completed. 330 MLS. jb1 08:38 He cath removed intact, balloon deflated. sv 08:40 He cath inserted, using sterile technique, 18 Fr., by ED staff, balloon inflated, to sv gravity drainage, Patient tolerated poorly. 08:45 Bladder irrigated via He with 80 mls normal saline returned nothing Patient sv tolerated poorly Informed Blake GILES, pt is not having any output and is complaining of pain. 09:50 Urine collected: He catheter specimen, cloudy, nikolas colored. jb1 10:24 Iris Nazario MD is Referral Physician. pm1 10:35 No provider procedures requiring assistance completed. Patient did not have IV access sv during this emergency room visit. Administered Medications: No medications were administered Output: 09:45 Urine: 100ml (He); Total: 100ml. sv Outcome: 10:25 Discharge ordered by . pm1 10:35 Discharged to day surgery here for his TURP, sent by wheelchair. sv 10:35 Condition: stable 10:35 Discharge instructions given to patient, family, Instructed on discharge instructions, follow up and referral plans. Demonstrated understanding of instructions, follow-up care. 10:39 Patient left the ED. sv Signatures: Agustín Beckman jb1 Ilda Iglesias, Clemencia Morel RN mr Blake Chambers NP SQL REPORT WRITER pm1
--- NOTE | 2018-04-16 10:26 | EDPHYS ---
Physician Documentation [facility] Name: Abisai Salinas Age: 77 yrs Sex: Male : 1940 Arrival Date: 04/16/2018 Time: 08:10 Bed 6 Private MD: out of town, doctor ED Physician Axel Palomares HPI: 04/16 08:30 This 77 yrs old Male presents to ER via Wheelchair with complaints of Problem pm1 With Urinary Catheter. 08:30 The patient presents with urinary symptoms, retention. Onset: The symptoms/episode pm1 began/occurred last night. Modifying factors: The symptoms are alleviated by nothing, the symptoms are aggravated by nothing. Associated signs and symptoms: Pertinent negatives: constipation, fever, nausea, vomiting. Severity of symptoms: in the emergency department the symptoms are actually worse. The patient has experienced similar episodes in the past. The patient has been recently seen at the [facility] Emergency Department, yesterday, for the same complaint . Patient was seen here yesterday for the same complaint of urinary retention. Patient with Ash catheter in place. Last night he was able to urinate after having a large bowel movement in the ER. Patient has a TURP scheduled for 1100 today . Historical: - Allergies: 08:27 No Known Allergies; sv - Home Meds: 08:27 amlodipine 5 mg tab 1 tab once daily [Active]; atorvastatin 40 mg Oral tab 1 tab once sv daily [Active]; Combigan 0.2-0.5 % ophthalmic drop 1 drop every 12 hours [Active]; docusate sodium 100 mg Oral tab 1 tab 2 times per day [Active]; Eliquis Oral [Active]; Eliquis 5 mg Oral tab 1 tab on hold for surg [Active]; Farxiga 5 mg Oral tab 1 tab once daily [Active]; finasteride 5 mg Oral tab 1 tab once daily [Active]; glipizide 10 mg Oral tab 1 tab 2 times per day [Active]; lisinopril 20 mg Oral tab 1 tab once daily [Active]; Lotrisone 1-0.05 % Topical crea 2 times per day [Active]; metformin 1,000 mg Oral tab 1 tab 2 times per day [Active]; metoprolol tartrate 100 mg Oral tab 1 tab 2 times per day [Active]; pantoprazole 20 mg Oral TbEC 1 tab once daily [Active]; - PMHx: 08:27 Diabetes - NIDDM; GERD; Hyperlipidemia; Hypertension; LACK OF COORDINATION; retention sv of urine; - Immunization history:: Adult Immunizations up to date. - Social history:: Smoking status: Patient/guardian denies using tobacco. - Ebola Screening: : No symptoms or risks identified at this time. ROS: 08:30 Constitutional: Negative for fever, chills, and weight loss, Eyes: Negative for injury, pm1 pain, redness, and discharge, ENT: Negative for injury, pain, and discharge, Neck: Negative for injury, pain, and swelling, Cardiovascular: Negative for chest pain, palpitations, and edema, Respiratory: Negative for shortness of breath, cough, wheezing, and pleuritic chest pain. 08:30 Back: Negative for injury and pain, : Negative for injury, bleeding, discharge, and swelling, MS/Extremity: Negative for injury and deformity, Skin: Negative for injury, rash, and discoloration, Neuro: Negative for headache, weakness, numbness, tingling, and seizure. 08:30 Abdomen/GI: Positive for abdominal pain, Negative for nausea, vomiting, and diarrhea. Exam: 08:30 Constitutional: This is a well developed, well nourished patient who is awake, alert, pm1 and in no acute distress. Head/Face: Normocephalic, atraumatic. Chest/axilla: Normal chest wall appearance and motion. Nontender with no deformity. No lesions are appreciated. Cardiovascular: Regular rate and rhythm with a normal S1 and S2. No gallops, murmurs, or rubs. Normal PMI, no JVD. No pulse deficits. Respiratory: Lungs have equal breath sounds bilaterally, clear to auscultation and percussion. No rales, rhonchi or wheezes noted. No increased work of breathing, no retractions or nasal flaring. 08:30 Abdomen/GI: Inspection: abdomen appears normal, Bowel sounds: normal, Palpation: soft, mild abdominal tenderness, in the suprapubic area, mass, is not appreciated, rebound tenderness, is not appreciated. Vital Signs: 08:28 BP 166 / 90; Pulse 64; Resp 18; Temp 98.3; Pulse Ox 100% ; sv 09:40 BP 165 / 72; Pulse 89; Resp 18; Pulse Ox 98% on R/A; sv 10:20 BP 162 / 77; Pulse 88; Resp 18; Pulse Ox 97% ; sv MDM: 08:15 Patient medically screened. pm1 10:23 Data reviewed: vital signs. Data interpreted: Pulse oximetry: on room air is 98 %. pm1 Interpretation: normal. Counseling: I had a detailed discussion with the patient and/or guardian regarding: the historical points, exam findings, and any diagnostic results supporting the discharge/admit diagnosis, Go to procedure, TURP, as scheduled with Dr. Nazario at 1100. 10:25 ED course: 300 mL total in patient's Ash catheter bag during ER visit. Bladder pm1 scanner was 330 mL prior to Ash catheter change. Patient no longer feels that he needs to urinate. 04/16 09:50 Order name: Urine Microscopic Only; Complete Time: 10:44 jb1 04/16 09:50 Order name: Urine Culture [facility] 04/16 08:21 Order name: Bladder Scanner; Complete Time: 08:30 pm1 04/16 10:16 Order name: Urine Dipstick--Ancillary (enter results); Complete Time: 10:44 bd Administered Medications: No medications were administered Disposition: 15:21 Co-signature as Attending Physician, Axel Palomares MD. rn Disposition: 04/16/18 10:25 Discharged to Home. Impression: Retention of urine. - Condition is Stable. - Discharge Instructions: Ash Catheter Care, Adult, Acute Urinary Retention, Male. - Medication Reconciliation Form, Thank You Letter, Antibiotic Education, Prescription Opioid Use form. - Follow up: Emergency Department; When: As needed; Reason: Worsening of condition. Follow up: Iris Nazario MD; When: Today; Reason: Recheck today's complaints, Continuance of care, Re-evaluation by your physician, PAOLO. - Problem is new. - Symptoms have improved. Signatures: Dispatcher [employer] Ilda Saleh RN RN sv Nieto, Roman, MD MD rn Marinas, Patrick, GEOSPATIAL INFORMATION SCIENTIST GEOSPATIAL INFORMATION SCIENTIST pm1 Corrections: (The following items were deleted from the chart) 10:39 10:25 04/16/2018 10:25 Discharged to Home. Impression: Retention of urine. Condition is sv Stable. Forms are Medication Reconciliation Form, Thank You Letter, Antibiotic Education, Prescription Opioid Use. Follow up: Emergency Department; When: As needed; Reason: Worsening of condition. Follow up: Iris Nazario; When: Today; Reason: Recheck today's complaints, Continuance of care, Re-evaluation by your physician, PAOLO. Problem is new. Symptoms have improved. pm1
[2018-04-16 10:34] LABS: Urine Bacteria >50 /HPF (NONE SEEN); Urine Culture Reflex Order NOT NEEDED; Urine RBC >50 /HPF (NONE SEEN)
[2018-04-16 10:37] LABS: Urine Blood 3+ (NEG); Urine Glucose NEGATIVE (NEG); Urine Protein 2+ (NEG)
== END 2018-04-16 10:39 | disposition home or self-care (01) ==
LOC: ER 08:08
DX: R33.9 Retention of urine, unspecified (principal); I10 Essential (primary) hypertension; E78.5 Hyperlipidemia, unspecified; E11.9 Type 2 diabetes mellitus without complications; Z79.02 Long term (current) use of antithrombotics/antiplatelets
CPT/HCPCS: 51700; 51702; 81003; 81015; 82962; 87086; 87088; 99285

== ENCOUNTER 2018-04-16 10:41 | Day surgery (SDC) | payer OTHER, MEDICARE ==
[2018-04-14 12:05] LABS: Absolute Lymphocytes (CBC) 1.2 K/uL (0.7-4.9); Absolute Monocytes 0.5 K/uL (0.1-1.3); Basophils % 0.8 % (0-1.3); Hematocrit 40.1 % (39.6-49.0); Lymphocytes % 13.3 % (15.3-44.8); MCH 32.3 pg (27.0-35.0); MPV 9.4 fL (7.6-11.3); Monocytes % 5.6 % (3.3-12.3); RBC Red Blood Cell Count 4.22 M/uL (4.33-5.43)
[2018-04-14 12:14] LABS: Urine Appearance TURBID; Urine Bilirubin NEGATIVE (NEG); Urine Blood 3+ (NEG); Urine Color YELLOW; Urine Glucose 3+ (NEG); Urine Protein 2+ (NEG); Urine Specific Gravity 1.025 (1.005-1.030); Urine pH 5.5 (5.0-7.0)
[2018-04-14 12:18] LABS: Protime INR 1.2
[2018-04-14 12:20] LABS: Potassium 4.1 mmol/L (3.5-5.1)
[2018-04-14 12:50] LABS: Urine Microscopic Reflex ORDER UMIC
[2018-04-14 13:45] LABS: Urine Bacteria >50 /HPF (NONE SEEN); Urine Culture Reflex Order NOT NEEDED; Urine RBC >50 /HPF (NONE SEEN)
--- NOTE | 2018-04-15 06:50 | EKG ---
Test Date: 2018-04-14 Test Time: 11:41:02 Skip Hoist Engineer: LAURIE MEASUREMENT RESULTS: Intervals: Rate: 63 IL: QRSD: 102 QT: 422 QTc: 431 [place]: P: IL: QRS: 6 T: -72 INTERPRETIVE STATEMENTS: Atrial fibrillation with premature ventricular or aberrantly conducted complexes ST & T wave abnormality, consider lateral ischemia or digitalis effect Abnormal ECG Compared to ECG 12/29/2017 07:28:11 No significant changes Electronically Signed On 04-15-18 06:49:29 CDT by Jose J Mccain
--- OUTSIDE RECORDS SUMMARY | 2018-04-16 10:44 | XMS REPORT | Continuity of Care Document ---
:1940 Author Organization Interface Problems Problem Status Onset Classification Date Comments Source Date Reported INJURY OF URETER Active [address] AMS, UTI, KIDNEY Active MH INJURY [address] [place] [address] [id number] Active BILATERAL UMBILICAL 018 [facility] Chest pain<sup>1</sup> Active Problem 03/23/2018 [facility] 013 migrated Group, from [facility] on 02/05/15. 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 Diabetes mellitus Active Problem 03/23/2018 Medical Group,[facility] Hyperlipidemia Active Problem 03/23/2018 Medical Group,[facility] Hypertensive Active Problem 03/23/2018 [facility] disorder<sup>3</sup> migrated Group, from [facility] on 02/05/15. Mitral regurgitation Active Problem 03/23/2018 Medical Group,[facility] Nonspecific ST-T wave Active Problem 03/23/2018 Medical electrocardiographic Group, changes [facility] Persistent atrial Active Problem 03/23/2018 Medical fibrillation Group,[facility] Tricuspid Active Problem 03/23/2018 Medical regurgitation Group,[facility] CAD (<span Active Problem 03/23/2018 ID="[id number]">[facility]</span>[facility], Medical Group Hernia, femoral, Active Problem 03/23/2018 bilateral [facility], Medical Group Reflux esophagitis Active Problem 03/23/2018 [facility], Medical Group Glaucoma Active Problem 03/23/2018 [facility], Medical Group Hypertension Active Problem 03/23/2018 [facility], Medical Group Umbilical hernia Active Problem 03/23/2018 [facility], Medical Group Unspecified injury of 01/05/2018 ureter, initial [facility] encounter [facility] UNSPECIFIED INJURY OF Active URETER, INITIAL EN [facility] ALTERED MENTAL STATUS, Active UNSPECIFIED [facility] AMS/ UTI/ DIRECT ADMIT Active [facility] Medications Medication Details Route Status Patient Ordering Order Source Instructions Provider Date Ciprofloxacin 250 mg=1 tab, Active 02/24/ 250 MG Oral PO, Q12H, X 7 2018 Medical Tablet [Cipro] day, # 14 tab, 0 Group Refill(s), Pharmacy: [facility] [address] Eliquis 5 mg, 1 tab, Inactive Route: PO, Drug 2017 [facility] form: TAB, BID, City Dosing Weight 93.295, kg, Start date: 01/02/18 17:00:00 CDT, Duration: 30 day, Stop date: 02/01/18 9:00:00 CDTNotes: Same as: Eliquis Acetaminophen 1 tab, PO, Q6H, Active 300 MG / Codeine PRN Pain, X 5 2017 [facility] Phosphate 30 MG day, # 20 tab, 0 [facility] Oral Tablet Refill(s) [Tylenol with Codeine #3] Hydrocortisone 5 1 appl, TOP, Active MG/ML Topical BID, PRN Rash, 0 2017 [facility] Cream Refill(s) [facility] Cephalexin 500 500 mg=1 cap, Active MG Oral Capsule PO, TID, X 7 2018 [facility] [Keflex] day, # 21 cap, 0 City Refill(s) Hydrocortisone 5 1 appl, Route: Inactive MG/ML Topical TOP, BID, Drug 2017 [facility] Cream form: CRM, PRN [facility] Rash, Start date: 01/02/18 10:55:00 CDT, Duration: 30 day, Stop date: 02/01/18 10:54:00 CDT Brimonidine 1 drp, Route: Inactive tartrate 2 MG/ML BOTH EYES, Q12H, 2017 [facility] / Timolol 5 Drug form: SOLN, City MG/ML Ophthalmic Start date: Solution 01/01/18 [Combigan] 21:00:00 CDT, Duration: 30 day, Stop date: 01/31/18 9:00:00 CDT timolol 1 drp, Route: No Longer ophthalmic BOTH EYES, Q12H, Active 2017 [facility] Drug form: JAIRO [facility] Start date: 01/01/18 21:00:00 CDT, Duration: 30 day, Stop date: 01/31/18 9:00:00 CDTNotes: (Same As: Timoptic, Betimol) metoprolol 100 mg, 2 tab, No Longer tartrate Route: PO, Drug Active 2017 [facility] form: TAB, Q12H, [facility] Dosing Weight 93.295, kg, Start date: 01/01/18 21:00:00 CDT, Duration: 30 day, Stop date: 01/31/18 9:00:00 CDTNotes: (Same as: Lopressor) brimonidine 1 drp, Route: No Longer ophthalmic BOTH EYES, Q12H, Active 2017 [facility] Drug form: JAIRO [facility] Start date: 01/01/18 21:00:00 CDT, Duration: 30 day, Stop date: 01/31/18 9:00:00 CDTNotes: (Same As: Alphagan) latanoprost 1 drp, Route: No Longer ophthalmic Each Affected Active 2017 [facility]AN, Start date: 01/01/18 21:00:00 CDT, Duration: 30 day, Stop date: 01/30/18 21:00:00 CDTNotes: Keep refrigerated. (Same as:Xalatan) Opened bottle may be stored at room temperature for 6 weeks Magnesium 2 gm, 50 mL, Inactive Sulfate Route: IVPB, 2017 [facility] Drug form: INJ [facility] Q2H, Dosing Weight 93.295, kg, Total dose=4 gm, Start date: 01/01/18 18:00:00 CDT, Duration: 2 doses or times, Stop date: 01/01/18 20:00:00 CDTNotes: WASTE: F/P - Sink; E - [employer] travoprost 0.04 1 drp, Route: Inactive MG/ML Ophthalmic BOTH EYES, Drug 2017 [facility] Solution Form: MIKAJimmy [facility] [Travatan] Dosing Weight 93.295, kg, QPM, Start date: 01/01/18 17:00:00 CDT, Duration: 30 day, Stop date: 01/30/18 17:00:00 CDT Protonix 20 mg, 1 tab, No Longer Route: PO, Drug Active 2017 [facility] form: ECTAB, City Before Lunch, Dosing Weight 93.295, kg, Start date: 01/01/18 11:30:00 CDT, Duration: 30 day, Stop date: 01/30/18 11:30:00 CDTNotes: Tablet should not be chewed or crushed. Docusate 100 mg, 1 cap, No Longer Route: PO, Drug Active 2017 [facility] form: CAP, BID, [facility] Dosing Weight 93.295, kg, Start date: 01/01/18 9:00:00 CDT, Duration: 30 day, Stop date: 01/30/18 17:00:00 CDTNotes: (Same as: Colace) (Do Not Crush) albumin human 25 gm, 100 mL, Inactive 25% intravenous Route: IVPB[address] solution Drug form: INJ, City ONCE, Dosing Weight 93.295, kg, Start date: 01/01/18 5:48:00 CDT, Stop date: 01/01/18 5:48:00 CDTNotes: LOT#: Mfg: ____ WASTE: F/P - Red; E -Red (Same as: Albuminar) "blood product derivative" NS (Bolus) IV 1,000 mL, 1,000 Inactive ml/hr, Infuse 2017 [facility] Over: 1 hr, [facility] Route: IV, 1,000, Drug form: INJ, ONCE, Priority: STAT, Dosing Weight 93.295 kg, Start date: 01/01/18 5:48:00 CDT, Stop date: 01/01/18 5:48:00 CDT Ceftriaxone 1 gm, Route: No Longer IVPB, [id number], Active 2017 [facility] Dosing Weight [facility] 93.295, kg, Start date: 01/01/18 0:00:00 CDT, Duration: 3 day, Stop date: 01/03/18 0:00:00 CDT, ABX Indication: Urinary Tract InfectionNotes: (Same As: Rocephin). Use with 100 mL NS and infuse over 30 min MEDICATION WASTE Product Size: 1000 mg Product Wasted: ___ mg Insulin Lispro 2 unit, 0.02 mL, No Longer Route: SUB-Q, [address] Drug form: SOLN [facility] TID-Before Meals, Dosing Weight 93.295, kg, PRN [...] mL, No Longer Syringe Route: IVP, Drug [address] Form: INJ, [facility] Dosing Weight 93.295, kg, PRN, PRN Blood Glucose Results, Start date: 12/31/17 23:08:00 CDT, Duration: 30 day, Stop date: 01/30/18 23:07:00 CDT Glucagon 1 mg, Route: IM, No Longer Drug form: [address] PDR/INJ, PRN, [facility] Dosing Weight 93.295, kg, PRN Blood Glucose Results, Start date: 12/31/17 23:08:00 CDT, Duration: 30 day, Stop date: 01/30/18 23:07:00 CDT Saline Flush 10 ml, Route: No Longer 0.9% IVP, Drug Form: [address] INJ, Dosing City Weight 93.295, kg, PRN, PRN Line Flush, Start date: 12/31/17 23:07:00 CDT, Duration: 30 day, Stop date: 01/30/18 23:06:00 CDTNotes: (Same as: BD Posiflush) Ondansetron 4 mg, 1 tab, No Longer Route: PO, Drug [address] form: TABDIS, [facility] Q6H, Dosing Weight 93.295, kg, PRN Nausea & Vomiting, Start date: 12/31/17 23:07:00 CDT, Duration: 30 day, Stop date: 01/30/18 23:06:00 CDTNotes: (Same as: Zofran ODT) Morphine 3 mg, 1.5 mL, No Longer Route: PO, Drug Active [address] [place] [address] form: SOLN, Q4H, [facility] Dosing Weight 93.295, kg, PRN Pain Score 7-10, Start date: 12/31/17 23:07:00 CDT, Stop date: 01/30/18 23:06:00 CDTNotes: (Same as:MORPhine Sulfate) Acetaminophen 650 mg, 2 tab, No Longer Route: PO, Drug Active [address] [place] [address] form: TAB, Q4H, [facility] Dosing Weight 93.295, kg, PRN Pain 1-3/Temp > 100.4 F, Start date: 12/31/17 23:07:00 CDT, Duration: 30 day, Stop date: 01/30/18 23:06:00 CDTNotes: Do not exceed 4 gm/day. (Same as: Tylenol) Acetaminophen 1 tab, Route: No Longer 325 MG / PO, Drug Form: [address] Hydrocodone TAB, Dosing [facility] Bitartrate 5 MG Weight 93.295, Oral Tablet kg, Q4H, PRN Pain Score 4-6, Start date: 12/31/17 23:07:00 CDT, Duration: 30 day, Stop date: 01/30/18 23:06:00 CDTNotes: (Same as: [place] 325/5) Do not exceed 4gm/day of acetaminophen. Sodium Chloride 1,000 mL, Rate: No Longer 0.9% IV 1,000 mL 75 ml/hr, Infuse Active [address] [place] [address] over: 13.3 hr, [facility] Route: IV, Dosing Weight 93.295 kg, Total Volume: 1,000, Start date: 12/31/17 23:07:00 CDT, Duration: 30 day, Stop date: 01/30/18 23:06:00 CDT, 2.19, m2 glycopyrrolate Route: IV, Drug Inactive (ANES) form: INJ, ONCE, 2017 [facility] Stop date: [facility] 12/23/17 16:01:00 CDT neostigmine Route: IV, Drug Inactive (ANES) form: INJ, ONCE, 2017 [facility] Stop date: [facility] 12/23/17 16:01:00 CDT ondansetron Route: IV, Drug Inactive (ANES) form: INJ, ONCE, 2017 [facility] Stop date: [facility] 12/23/17 15:52:00 CDT Hydralazine 10 mg, Route: Inactive IVP, Q20Min, 2017 [facility] Dosing Weight [facility] 84.091, kg, PRN Elevated BP, Start date: 12/23/17 14:45:00 CDT, Duration: 2 doses or times, Stop date: Limited # of times Ondansetron 4 mg, Route: Inactive IVP, ONCE, 2017 [facility] Dosing Weight [facility] 84.091, kg, PRN Nausea & Vomiting, Start date: 12/23/17 14:45:00 CDT Morphine 2 mg, Route: Inactive IVP, Q5Min, 2017 [facility] Dosing Weight [facility] 84.091, kg, PRN Pain Score 4-6, Start date: 12/23/17 14:45:00 CDT, Duration: 5 doses or times, Stop date: Limited # of times Naloxone 0.4 mg, Route: Inactive IVP, Q2MIN, 2017 [facility] Dosing Weight [facility] 84.091, kg, PRN Narcotic Reversal, Start date: 12/23/17 14:45:00 CDT, Duration: 8 doses or times, Stop date: Limited # of times Flumazenil 0.2 mg, Route: Inactive IVP, PRN, Dosing 2017 [facility] Weight 84.091, City kg, PRN Benzodiazepine Reversal, Initial dose, Start date: 12/23/17 14:45:00 CDT, Duration: 30 day, Stop date: 01/22/18 14:44:00 CDT Hydromorphone 0.5 mg, Route: Inactive IVP, Q5Min, 2017 [facility] Dosing Weight [facility] 84.091, kg, PRN Pain Score 7-10, Start date: 12/23/17 14:45:00 CDT, Duration: 4 doses or times, Stop date: Limited # of times rocuronium Route: IV, Drug Inactive 12/23/ MH (ANES) form: INJ, ONCE, 2017 [facility] Stop date: [facility] 12/23/17 14:22:00 CDT fentaNYL (ANES) Route: IV, Drug Inactive 12/23/ form: INJ, ONCE, 2017 [facility] Stop date: [facility] 12/23/17 14:17:00 CDT lidocaine (ANES) Route: IV, Drug Inactive 12/23/ form: INJ, ONCE, 2017 [facility] Stop date: [facility] 12/23/17 14:17:00 CDT propofol (ANES) Route: IV, Drug Inactive 12/23/ form: INJ, ONCE, 2017 [facility] Stop date: [facility] 12/23/17 14:17:00 CDT ePHEDrine (ANES) Route: IV, Drug Inactive 12/23/ form: INJ, ONCE, 2017 [facility] Stop date: [facility] 12/23/17 14:02:00 CDT ceFAZolin (ANES) Route: IV, Drug Inactive 12/23/ form: INJ, ONCE, 2017 [facility] Stop date: [facility] 12/23/17 14:02:00 CDT acetaminophen Route: IV, Drug Inactive (ANES) 10 mg form: INJ, Start 2017 [facility] date: 12/23/17 [facility] 13:24:00 CDT, Stop date: 12/23/17 14:24:00 CDT Lactated Ringers Route: IV, Total Inactive Injection IV Volume: 1,000, 2017 [facility] (ANES) 1000 mL Start date: [facility] 12/23/17 13:12:00 CDT, Stop date: 12/23/17 14:12:00 CDT Lidocaine 0.5 mL, Route: Inactive Hydrochloride 10 INTRADERM, 2017 [facility] MG/ML Injectable Dosing Weight [facility] Solution 84.091, kg, ONCALL, Start date: 12/23/17 11:00:00 CDT, Duration: 1 doses or times Sodium Chloride 1,000 mL, Rate: Inactive 0.9% IV 1000 mL 25 ml/hr, Infuse 2017 [facility] over: 40 hr, [facility] Route: IV, Dosing Weight 84.091 kg, Total Volume: 1,000, Start date: 12/23/17 10:33:00 CDT, Duration: 30 day, Stop date: 01/22/18 10:32:00 CDT, 2.06, m2 Ancef + sterile 2 gm, Route: Inactive water 20 mL IVPB, ONCE, 2017 [facility] Weight [facility] 84.091, kg, Start date: 12/23/17 10:33:00 CDT, [...] 2017 Medical [Eliquis] 1 Refill(s), Group Pharmacy: [facility] [address]1977 Allergies, Adverse Reactions, Alerts Substance Category Reaction Severity Reaction Status Date Comments Source type Reported NKDA Assertion Drug Active allergy Medical Group NKFA Assertion Food Active allergy Medical Group Immunizations Immunization Date Given Site Status Last Updated Comments Source Results Order Name Results Value Reference Date Interpretation Comments Source Range CHEM PANEL Magnesium 2.2 mg/dL 1.8 - 2.4 01/02 Lvl [facility] ELECTROLYTE AGAP 12.7 meq/L 10.0 - 01/02 S 20.0 [facility] ELECTROLYTE CO2 28 meq/L 24 - 32 01/02 S [facility] ELECTROLYTE Calcium Lvl 7.7 mg/dL 8.5 - 10.5 01/02 S [facility] ELECTROLYTE BUN 12 mg/dL 7 - 22 01/02 S [facility] ELECTROLYTE Sodium Lvl 143 meq/L 135 - 145 01/02 S [facility] ELECTROLYTE Chloride Lvl 106 meq/L 95 - 109 01/02 [facility] ELECTROLYTE Potassium 3.7 meq/L 3.5 - 5.1 01/02 S Lvl /2017 [facility] ELECTROLYTE eGFR 85 01/02 Result Comment: The eGFR is calculated using the CKD-EPI formula. In most young, healthy individuals the eGFR will be >90 mL/ min/1.73m2. The eGFR declines with age. An eGFR of 60-89 may be normal in [facility] mL/min/1.7 some populations, particularly the elderly, for whom the CKD-EPI formula has not been extensively validated. Use of the eGFR is not recommended in the following populations: [address] Individuals with unstable creatinine concentrations, including [...] 161 mg/dL 70 - 99 01/02 S [facility] ELECTROLYTE Creatinine 0.81 mg/dL 0.50 - 01/02 S Lvl 1.40 [facility] HEMATOLOGY MPV 8.2 fL 7.4 - 10.4 01/02 [facility] HEMATOLOGY Platelet 247 K/CMM 133 - 450 01/02 [facility] HEMATOLOGY RDW 14.0 % 11.5 - 01/02 MH 14. [facility] HEMATOLOGY WBC 9.7 K/CMM 3.7 - 10.4 01/02 [facility] HEMATOLOGY RBC 3.93 M/CMM 4.70 - 01/02 MH 6.10 [facility] HEMATOLOGY Hgb 12.0 g/dL 14.0 - 01/02 MH 18.0 [facility] HEMATOLOGY Hct 35.4 % 42.0 - 01/02 MH 54.0 [facility] HEMATOLOGY MCV 90.1 fL 80.0 - 01/02 94.0 [facility] HEMATOLOGY MCH 30.6 pg 27.0 - 01/02 MH 31.0 [facility] MCHC 34.0 g/dL 32.0 - 01/02 MH 36.0 [facility] HEMATOLOGY Basophils # 0.1 K/CMM 0.0 - 0.2 01/02 [facility] HEMATOLOGY Segs 66.9 % 45.0 - 01/02 MH 75.0 [facility] HEMATOLOGY Eosinophils 4.7 % 0.0 - 4.0 01/02 [facility] HEMATOLOGY Basophils 1.1 % 0.0 - 1.0 01/02 [facility] HEMATOLOGY Lymphocytes 19.1 % 20.0 - 01/02 MH 40.0 [facility] HEMATOLOGY Monocytes 8.2 % 2.0 - 12.0 01/02 [facility] HEMATOLOGY Segs-Bands # 6.5 K/CMM 1.5 - 8.1 01/02 [facility] HEMATOLOGY Eosinophils 0.5 K/CMM 0.0 - 0.5 01/02 # [facility] HEMATOLOGY Monocytes # 0.8 K/CMM 0.0 - 0.8 01/02 [facility] HEMATOLOGY Lymphocytes 1.9 K/CMM 1.0 - 5.5 01/02 # [facility] Chest 1view Chest 1view EXAM: Chest 1view DX 01/01 - DX DX - [facility] HISTORY: - mild [facility] [place] COMPARISON: None Read by: Darin Thompson MD Dictated Date/time: 01/01/18 13:49 Electronically Signed by: Darin Thompson MD 01/01/18 13:49 FINAL REPORT Impression: Cardiomegaly with CABG and median sternotomy noted. There is mild interstitial edema and obscuration of the left lung base possibly related to a small effusion and/or atelectasis. CARDIAC BNP 221 pg/mL <=100 01/01 ENZYMES pg/mL /2017 [facility] CHEM PANEL Magnesium 1.4 mg/dL 1.8 - 2.4 01/01 Lvl [facility] ELECTROLYTE AGAP 10.5 meq/L 10.0 - 01/01 S 20.0 [facility] ELECTROLYTE CO2 33 meq/L 24 - 32 01/01 S [facility] ELECTROLYTE Calcium Lvl 8.2 mg/dL 8.5 - 10.5 01/01 S [facility] ELECTROLYTE Potassium 3.5 meq/L 3.5 - 5.1 01/01 S Lvl [facility] ELECTROLYTE Sodium Lvl 144 meq/L 135 - 145 01/01 S [facility] ELECTROLYTE Chloride Lvl 104 meq/L 95 - 109 01/01 [facility] ELECTROLYTE BUN 18 mg/dL 7 - 22 01/01 [facility] ELECTROLYTE Glucose Lvl 107 mg/dL 70 - 99 01/01 [facility] ELECTROLYTE eGFR 80 01/01 Result Comment: [...] is not recommended in the following populations: [address] Individuals with unstable creatinine concentrations, including [...] mg/dL 0.50 - 01/01 S Lvl 1.40 [facility] HEMATOLOGY Segs-Bands # 6.9 K/CMM 1.5 - 8.1 01/01 [facility] HEMATOLOGY Lymphocytes 1.9 K/CMM 1.0 - 5.5 01/01 [facility] HEMATOLOGY Monocytes # 0.8 K/CMM 0.0 - 0.8 01/01 [facility] HEMATOLOGY Basophils # 0.1 K/CMM 0.0 - 0.2 01/01 [facility] HEMATOLOGY Eosinophils 0.6 K/CMM 0.0 - 0.5 01/01 [facility] HEMATOLOGY Segs 66.9 % 45.0 - 01/01 75.0 [facility] HEMATOLOGY Basophils 0.9 % 0.0 - 1.0 01/01 [facility] HEMATOLOGY Eosinophils 5.6 % 0.0 - 4.0 01/01 [facility] HEMATOLOGY Monocytes 7.8 % 2.0 - 12.0 01/01 [facility] HEMATOLOGY Lymphocytes 18.8 % 20.0 - 01/01 40.0 [facility] HEMATOLOGY RDW 14.3 % 11.5 - 01/01 MH 14.5 [facility] HEMATOLOGY Platelet 271 K/CMM 133 - 450 01/01 [facility] HEMATOLOGY MPV 8.2 fL 7.4 - 10.4 01/01 [facility] HEMATOLOGY WBC 10.3 K/CMM 3.7 - 10.4 01/01 [facility] HEMATOLOGY MCHC 33.9 g/dL 32.0 - 01/01 MH 36.0 [facility] HEMATOLOGY RBC 4.35 M/CMM 4.70 - 01/01 MH 6.10 [facility] HEMATOLOGY Hgb 13.3 g/dL 14.0 - 01/01 MH 18.0 [facility] HEMATOLOGY Hct 39.3 % 42.0 - 01/01 54.0 [facility] HEMATOLOGY MCV 90.5 fL 80.0 - 01/01 94.0 [facility] HEMATOLOGY MCH 30.6 pg 27.0 - 01/01 31.0 [facility] URINE AND UA Ketones Negative 01/01 STOOL [facility] URINE AND UA Glucose 150 mg/dL 01/01 STOOL [facility] URINE AND UA Sq Epi None Seen 01/01 STOOL [facility] URINE AND UA Bacteria Few /HPF None Seen 01/01 STOOL /HPF /2017 [facility] URINE AND UA Mucus Few /LPF None Seen 01/01 STOOL /LPF /2017 [facility] URINE AND UA RBC 85 /HPF 0 - 2 01/01 [facility] URINE AND UA Blood Moderate Negative [facility] (12/31/17 11:41 PM) URINE AND UA 4.0 mg/dL 0.1 - 1.0 01/01 STOOL Urobilinogen /2017 [facility] URINE AND UA pH 7.0 5.0 - 8.0 01/01 STOOL [facility] URINE AND UA Leuk Est Moderate Negative 01/01 STOOL [facility] *ABN* [facility] (12/31/17 11:41 PM) URINE AND UA WBC 72 /HPF 0 - 5 01/01 [facility] URINE AND UA Bili Negative Negative 01/01 [facility] (12/31/17 11:41 PM) URINE AND UA Nitrite Negative Negative 01/01 STOOL [facility] (12/31/17 11:41 PM) [facility] URINE AND UA Turbidity Slight Clear 01/01 [facility] (12/31/17 11:41 PM) URINE AND UA Spec Grav 1.018 <=1.030 01/01 [facility] URINE AND UA Color Dark Yellow Yellow 01/01 [facility] (12/31/17 11:41 PM) URINE AND UA Protein >=300 Negative 01/01 STOOL mg/dL mg/dL [facility] ELECTROLYTE Potassium 4.3 meq/L 3.5 - 5.1 12/18 S Lvl [facility] ELECTROLYTE Chloride Lvl 109 meq/L 95 - 109 12/18 S [facility] ELECTROLYTE CO2 28 meq/L 24 - 32 12/18 S [facility] ELECTROLYTE Calcium Lvl 9.8 mg/dL 8.5 - 10.5 12/18 [facility] ELECTROLYTE Sodium Lvl 145 meq/L 135 - 145 12/18 S [facility] ELECTROLYTE Glucose Lvl 144 mg/dL 70 - 99 12/18 S [facility] ELECTROLYTE BUN 17 mg/dL 7 - 22 12/18 S [facility] ELECTROLYTE eGFR 63 12/18 Result Comment: [...] is not recommended in the following populations: [address] Individuals with unstable creatinine concentrations, including [...] mg/dL 0.50 - 12/18 S Lvl 1.40 [facility] ELECTROLYTE AGAP 12.3 meq/L 10.0 - 12/18 S 20.0 [facility] HEMATOLOGY Hct 43.7 % 42.0 - 12/18 54.0 [facility] HEMATOLOGY Hgb 14.7 g/dL 14.0 - 12/18 18.0 [facility] Vital Signs Vital Sign Value Date Comments Source BMI Calculated 25.14 02/24/2018 [facility] Weight 84.091 02/24/2018 [facility] Height 182.88 cm 02/24/2018 [facility] Systolic (mm Hg) 115 02/24/2018 [facility] Diastolic (mm Hg) 74 02/24/2018 [facility] Heart Rate 80 02/24/2018 [facility] Temperature Oral (F) 97.8 F 01/02/2018 [facility] Systolic (mm Hg) 155 01/02/2018 [facility] Diastolic (mm Hg) 90 01/02/2018 [facility] Respitory Rate 18 01/02/2018 [facility] Heart Rate 65 01/02/2018 [facility] Respitory Rate 16 01/02/2018 [facility] Temperature Oral (F) 98.2 F 01/02/2018 [facility] Heart Rate 60 01/02/2018 [facility] Systolic (mm Hg) 149 01/02/2018 [facility] Diastolic (mm Hg) 72 01/02/2018 [facility] Heart Rate 65 01/02/2018 [facility] Respitory Rate 16 01/02/2018 [facility] Systolic (mm Hg) 136 01/02/2018 [facility] Diastolic (mm Hg) 61 01/02/2018 [facility] Temperature Oral (F) 98.3 F 01/02/2018 [facility] BMI Calculated 27.89 01/01/2018 [facility] Weight 93.295 01/01/2018 [facility] Height 182.88 cm 01/01/2018 [facility] Systolic (mm Hg) 142 12/23/2017 [facility] Diastolic (mm Hg) 69 12/23/2017 [facility] Respitory Rate 19 12/23/2017 [facility] Systolic (mm Hg) 143 12/23/2017 [facility] Diastolic (mm Hg) 65 12/23/2017 [facility] Respitory Rate 20 12/23/2017 [facility] Systolic (mm Hg) 143 12/23/2017 [facility] Diastolic (mm Hg) 62 12/23/2017 [facility] Respitory Rate 20 12/23/2017 [facility] Heart Rate 74 12/23/2017 [facility] BMI Calculated 25.86 12/18/2017 [facility] Weight 84.091 12/18/2017 [facility] Height 180.34 cm 12/18/2017 [facility] BMI Calculated 27.46 11/28/2017 [facility] Heart Rate 70 11/28/2017 [facility] Systolic (mm Hg) 117 11/28/2017 [facility] Diastolic (mm Hg) 71 11/28/2017 [facility] Height 177.8 cm 11/28/2017 [facility] Weight 86.818 11/28/2017 [facility] Encounters Location Location Encounter Encounter Reason Attending ADM DC Status Source Details Type Number For Provider Date Date Visit Outpatient [id number] [facility] 07/05 [facility] [place] Outpatient [id number] NUCLEAR 08/13 [facility] SCAN VISIT /2015 [place] Outpatient [id number] [facility] 08/20 [facility] SCAN VISIT [facility]2015 [place] Out[place] [id number] [facility] 08/20 [facility] [place] Outpatient [id number] [facility] 12/05 [facility] [place] Outpatient [id number] [facility] 06/06 [facility] [place] Outpatient [id number] ECHO VISIT 06/20 [facility] Phone [id number] 07/19 07/21 Cardiology Message /2016 [facility] Outpatient [id number] FRANCES 11/28 [facility] Outpatient [id number] Anderson 11/28 11/29 Cardiology David /2017 [facility] Day Surgery [id number] Fer Efren 12/23 12/23 [place] Gomez /2017 [facility] Emergency [id number] Neri 01/01 01/01 [facility] /2017 [facility] Inpatient [id number] Latonya Latonya Pe 01/01 01/02 [facility] /2017 [facility] Phone [id number] 01/06 01/08 Urology Message /2017 [facility] Outpatient [id number] MANN 01/16 [facility] Ambulatory [id number] Mann 01/16 01/16 Urology Pre-Reg Lux /2017 [facility] Outpatient [id number] MANN 02/24 [facility] /2017 [place] [facility] Outpatient [id number] Anderson 02/24 02/25 Urology David /2017 [facility] [employer] [facility] Outside [id number] 03/19 03/21 Cardiology Medical /2017 [facility] Outpatient [id number] FRANCES 06/05 [facility] [place] Procedures Procedure Code Date Perfomer [place] [address] 02/24/2018 [facility] residual urine and/or bladder capacity by ultrasound, non-imaging CABG - Coronary [id number] 1999 Medical artery bypass Group graft<sup>1</sup> Cardiac [id number] Open Grafts [facility] catheterization<sup 2004 Group >2</sup> Carotid [id number] Right and left [facility] endarterectomy<sup> Group 3</sup> CABG - Coronary [id number] 1999 [facility] artery bypass [facility] graft<sup>1</sup> Cardiac [id number] Open Grafts [facility] catheterization<sup 2004 City >2</sup> Carotid [id number] Right and left [facility] endarterectomy<sup> City 3</sup> Repair of [id number] 1 week ago [facility] hiatal hernia<sup>4</sup> Repair of [id number] 1 week ago [facility] hiatal hernia<sup>4</sup>
[2018-04-16] MEDS ORDERED: NA CHLORIDE 0.9% 1,000 ML ONE (10:47)
[2018-04-16] MEDS ORDERED: GENTAMICIN 100 MG/100 ML BAG 100 MG/100 ML BAG IV ONE (10:47)
[2018-04-16] MEDS ORDERED: LIDOCAINE 2% MPF 5 ML VIAL ONE (11:54)
[2018-04-16] MEDS ORDERED: MIDAZOLAM HCL 2 MG/2 ML INJ ONE (11:54)
[2018-04-16] MEDS ORDERED: PROPOFOL 200 MG/20 ML VIAL IV ONE (11:54)
[2018-04-16] MEDS ORDERED: FENTANYL CITR 100 MCG/2 ML ONE (12:10)
[2018-04-16] MEDS ORDERED: MEPERIDINE HCL 50 MG/ML AMP ONE (13:10)
[2018-04-16] MEDS ORDERED: ONDANSETRON 4 MG/2 ML VIAL ONE (13:10)
[2018-04-16 13:25] LABS: Urine Bacteria >50 /HPF (NONE SEEN); Urine Culture Reflex Order NOT NEEDED; Urine RBC >50 /HPF (NONE SEEN)
[2018-04-16] MEDS ORDERED: PHENAZOPYRIDINE 100MG TAB PO ONE (13:40)
[2018-04-16] MEDS ORDERED: TRAMADOL HCL 50 MG TAB ONE ×2 (13:41→13:46)
--- NOTE | 2018-04-16 14:52 | OP ---
Date of Procedure: 04/16/2018 Surgeon: Iris Nazario MD Preoperative Diagnoses: Benign prostatic hypertrophy, clogged Ash. Postoperative Diagnoses: Benign prostatic hypertrophy, clogged Ash, pus in bladder, Ash trauma to prostatic urethra, hernia mesh in dome of the bladder. The bladder has lots of stringy pus like fibrous pus that was removed. The area of the mesh in the dome was area with previous staple. The patient was sent back to the surgeon back in December to have the staple removed. Taylor never removed from the bladder and now there is mesh in the bladder. Operations Performed: Cystoscopy, fulguration of prostatic bleed, pus evacuation, identification of mesh in dome of the bladder. Anesthesia: General. Ebl: Minimal. Replacement: See record. Path Specimen: Urine culture, pus culture. Findings: As mentioned above, traumatic prostatic urethra, stringy pus, fibers in bladder, mesh in the dome of the bladder with pus attached to it. This was the area that was seen a previous staple to the bladder when he had a hernia repair in [place]. The patient went back to the surgeon at that time to have the staple removed as I recommended, but the staple was never removed. Now the mesh has eroded to the dome of the and is inside the bladder. Complications: None from my surgery. Drains: Three way 22-Tajik hematuria Ash. Condition Upon Transfer Up To Pacu: Stable. Indications: A 77-year-old gentleman who was diagnosed with BPH, urinary retention, been unable to void since the mesh was placed. He had a complicated mesh surgery done and staple caught the bladder. I recommended removal back in December. patient returned to the surgeon, but the patient said the procedure IT was never done. They consultled urology for serial cystogram until the leak was closed. He is unable to void since and had multiple problems with his catheter. Last night went to the emergency room twice, after he was seen by the home health. Catheter would not drain. It was obviously been plugged by this pus clot, so we took him into surgery and found the Ash balloon was blown up in the prostatic urethra with bleeding prostatic tissue. This was fulgurated using the resectoscope with the button loop. The bladder was very cloudy, full of pus. This was evacuated. Once it was evacuated, we could see the fibers of pus that was pretty long, floating around the bladder, and was difficult to remove. We finally got it removed. Clearing of the bladder, then we saw brownish yellowish mesh like thing on the dome of the bladder. It was obviously hernia mesh that eroded into the bladder. There appears to have a possible rent in the bladder at this area. The patient is going to need this removed. Resecting is not an option. It needs to be removed entirely. Went ahead and placed a [address] Ash catheter over guidewire into the bladder with good return of urine. The patient went to recovery room in stable condition. Plan: Plan is to send this patient home on antibiotics, to follow up with someone that can remove this mesh [facility] [place]. JEZ/SHONNA Voice ID: [id number] Report ID: [id number] SCAR
== END 2018-04-16 14:49 | disposition home or self-care (01) ==
LOC: OR 10:41
PROVIDERS: ATTEND Urology
PROC: 0TCD8ZZ Extirpation of Matter from Urethra, Via Natural or Artificial Opening Endoscopic (ICD-10-PCS; 2018-04-16)
PROC: 0T5D8ZZ Destruction of Urethra, Via Natural or Artificial Opening Endoscopic (ICD-10-PCS; principal; 2018-04-16 12:00)
DX: T83.098A Other mechanical complication of other urinary catheter, initial encounter (principal); N40.1 Benign prostatic hyperplasia with lower urinary tract symptoms; N42.9 Disorder of prostate, unspecified; N31.2 Flaccid neuropathic bladder, not elsewhere classified; R33.8 Other retention of urine; N39.0 Urinary tract infection, site not specified; N20.0 Calculus of kidney; R39.12 Poor urinary stream; R97.20 Elevated prostate specific antigen [PSA]; Y73.3 Surgical instruments, materials and gastroenterology and urology devices (including sutures) associated with adverse incidents; Y92.019 Unspecified place in single-family (private) house as the place of occurrence of the external cause
CPT/HCPCS: 36415; 52001; 52214; 80048; 81015; 85025; 85610; 85730; 87070; 87075; 87086 ×2; 87088 ×2; 87205 ×2; 93005; J1580; J2175; J2405; J3010; J7030; 81003; J2250

== ENCOUNTER 2019-04-24 14:38 | Emergency (ER) | payer OTHER, MEDICARE ==
--- OUTSIDE RECORDS SUMMARY | 2019-04-24 14:41 | XMS REPORT | Clinical Summary ---
:1940 Author Organization [facility] Address [address] [place] [address] Care Team Providers Name Role Phone Pcp, No Primary Care Provider Unavailable Allergies No Known Allergies Medications Medication Sig Dispensed Refills Start Date End Date Status atorvastatin Take 40 mg by 0 Active (LIPITOR) 40 MG mouth daily. tablet lisinopril Take 20 mg by 0 Active (PRINIVIL,ZESTRIL) 20 mouth daily. MG tablet amLODIPine (NORVASC) Take 5 mg by 0 Active 5 MG tablet mouth daily. metoprolol Take 100 mg by 0 Active (TOPROL-XL) 100 MG 24 mouth daily. hr tablet apixaban (ELIQUIS) 5 Take 5 mg by 0 Active mg Tab tablet mouth 2 (two) times daily. metFORMIN Take 1,000 mg by 0 Active (GLUCOPHAGE) 1000 MG mouth 2 (two) tablet times daily with breakfast and dinner. glipiZIDE (GLUCOTROL) Take 10 mg by 0 Active 10 MG tablet mouth 2 (two) times daily before meals. tamsulosin (FLOMAX) Take 0.4 mg by 0 Active 0.4 mg Cap 24 hr mouth daily. capsule travoprost (TRAVATAN Place 1 drop 0 Active Z) 0.004 % Drop into both eyes ophthalmic drops nightly. brimonidine-timolol 1 drop nightly . 0 Active (COMBIGAN) 0.2-0.5 % ophthalmic solution nitrofurantoin Take 100 mg by 0 Active (MACRODANTIN) 100 MG mouth 4 (four) capsuleIndications: times daily . completed finasteride (PROSCAR) Take 5 mg by 0 Active 5 mg tablet mouth daily. docusate sodium Take 1 capsule 30 capsule 0 05/15/2018 05/25/2018 (COLACE) 100 MG (100 mg total) capsule by mouth 2 (two) times daily for 10 days. ciprofloxacin HCl Take 1 tablet 6 tablet 0 05/15/2018 05/18/2018 (CIPRO) 500 MG tablet (500 mg total) by mouth 2 (two) times daily for 3 days Please start taking cipro day before he removal appt. acetaminophen-codeine Take 1 tablet by 10 tablet 0 05/15/2018 05/25/2018 (TYLENOL-CODEINE #3) mouth every 4 300-30 mg per tablet (four) hours as needed for up to 10 days. Max Daily Amount: 6 tablets Active Problems Problem Noted Date Erosion of other implanted mesh to organ or tissue, initial encounter 2017 BPH (benign prostatic hyperplasia) 05/12/2018 Incomplete bladder emptying 05/11/2018 Prostate cancer 05/11/2018 Benign prostate hyperplasia 05/11/2018 Encounters Date Type Specialty Care Team Description 05/13/2018 Anesthesia Event Gibson Glass MD 05/13/2018 Surgery Byron Ardon ROBOTIC MD [facility] LAPAROSCOPY,PROSTATE CTOMY 05/11/2018 - Hospital Encounter General Internal Byron Ardon 05/16/2018 Medicine MD [facility] 04/30/2018 Hospital Encounter Byron Ardon MD 04/30/2018 Hospital Encounter Cardiology Byron Ardon MD 04/30/2018 Hospital Encounter Pre-Admission Byron Ardon Testing MD [facility] 04/30/2018 Orders Only Byron Ardon MD after 04/23/2018 Social History Tobacco Use Types Packs/Day Years Used Date Former Smoker Smokeless Tobacco: Never Used Comments: quit 30 yrs ago Alcohol Use Drinks/Week oz/Week Comments No Sex Assigned at Date Recorded Not on file Job Start Date Occupation Industry Not on file Not on file Not on file Travel History Travel Start Travel End No recent travel history available. Last Filed Vital Signs Vital Sign Reading Time Taken Blood Pressure 165/75 05/16/2018 8:19 AM CDT Pulse 88 05/16/2018 8:19 AM CDT Temperature 36.6 C (97.8 F) 05/16/2018 8:19 AM CDT Respiratory Rate 18 05/16/2018 8:19 AM CDT Oxygen Saturation 94% 05/16/2018 8:19 AM CDT Inhaled Oxygen Concentration - - Weight 76.4 kg (168 lb 6.4 oz) 05/11/2018 9:40 AM CDT Height 182.9 cm (6') 05/11/2018 9:40 AM CDT Body Mass Index 22.84 05/11/2018 9:40 AM CDT Plan of Treatment Not on file Procedures Procedure Name Priority Date/Time Associated Comments Diagnosis RHYTHM STRIP - SCAN 05/19/2018 1:00 PM CDT POCT-GLUCOSE METER Routine 05/16/2018 7:35 Results for this AM CDT procedure are in the results section. BASIC METABOLIC Routine 05/16/2018 4:53 Results for this PANEL (7) AM CDT procedure are in the results section. CBC (HEMOGRAM ONLY) Routine 05/16/2018 4:53 Results for this AM CDT procedure are in the results section. POCT-GLUCOSE METER Routine 05/15/2018 9:47 Results for this PM CDT procedure are in the results section. POCT-GLUCOSE METER Routine 05/15/2018 7:26 Results for this PM CDT procedure are in the results section. POCT-GLUCOSE METER Routine 05/15/2018 4:16 Results for this PM CDT procedure are in the results section. POCT-GLUCOSE METER Routine 05/15/2018 12:39 Results for this PM CDT procedure are in the results section. POCT-GLUCOSE METER Routine 05/15/2018 8:12 Results for this AM CDT procedure are in the results section. GENTAMICIN LEVEL, Routine 05/15/2018 4:44 Results for this TROUGH AM CDT procedure are in the results section. BASIC METABOLIC Routine 05/15/2018 4:44 Results for this PANEL (7) AM CDT procedure are in the results section. CBC (HEMOGRAM ONLY) Routine 05/15/2018 4:44 Results for this AM CDT procedure are in the results section. POCT-GLUCOSE METER Routine 05/14/2018 9:38 Results for this PM CDT procedure are in the results section. POCT-GLUCOSE METER Routine 05/14/2018 5:04 Results for this PM CDT procedure are in the results section. POCT-GLUCOSE METER Routine 05/14/2018 11:40 Results for this AM CDT procedure are in the results section. POCT-GLUCOSE METER Routine 05/14/2018 8:20 Results for this AM CDT procedure are in the results section. BASIC METABOLIC Routine 05/14/2018 5:15 Results for this PANEL (7) AM CDT procedure are in the results section. CBC (HEMOGRAM ONLY) Routine 05/14/2018 5:15 Results for this AM CDT procedure are in the results section. POCT-GLUCOSE METER Routine 05/13/2018 9:37 Results for this PM CDT procedure are in the results section. CBC (HEMOGRAM ONLY) STAT 05/13/2018 6:53 Results for this PM CDT procedure are in the results section. BASIC METABOLIC STAT 05/13/2018 6:53 Results for this PANEL (7) PM CDT procedure are in the results section. POCT-GLUCOSE METER Routine 05/13/2018 6:48 Results for this PM CDT procedure are in the results section. TISSUE EXAM AP Routine 05/13/2018 2:48 Results for this PM CDT procedure are in the results section. VANCOMYCIN LEVEL, Timed 05/13/2018 11:50 Results for this TROUGH AM CDT procedure are in the results section. PROCEDURE W/ 05/13/2018 11:35 Incomplete bladder DAVINCI AM CDT emptying Case Notes 4 HOURSTHIS CASE WILL MOVE TO ROOM [address] ARDON FIRST CASE. DR. ARDON IS OKAY.WILL BE SAME STAFF FROM FIRST CASE OF ROOM 25 Special Needs (JOURDAN LEE, FLEXIBLE CYSTOSCOPY EQUIPMENT, NOT DOING A CYSTO) REMOVAL,IMPLANTED MESH 05/13/2018 11:35 AM CDT Incomplete bladder emptying Case Notes 4 HOURSTHIS CASE WILL MOVE TO ROOM [address] ARDON FIRST CASE. DR. ARDON IS OKAY.WILL BE SAME STAFF FROM FIRST CASE OF ROOM 25 Special Needs (JOURDAN LEE, FLEXIBLE CYSTOSCOPY EQUIPMENT, NOT DOING A CYSTO) ROBOTIC LAPAROSCOPY,PROSTATECTOMY 05/13/2018 11:35 AM CDT Incomplete bladder emptying Case Notes 4 HOURSTHIS CASE WILL MOVE TO ROOM [address] REVA BROCK CASE. DR. ARDON IS OKAY.WILL BE SAME STAFF FROM FIRST CASE OF ROOM 25 Special Needs (JOURDAN LEE, FLEXIBLE CYSTOSCOPY EQUIPMENT, NOT DOING A CYSTO) POCT-GLUCOSE METER Routine 05/13/2018 7:12 AM CDT POCT-GLUCOSE METER Routine 05/13/2018 6:07 AM CDT BASIC METABOLIC PANEL (7) Routine 05/13/2018 4:58 AM CDT CBC (HEMOGRAM ONLY) Routine 05/13/2018 4:58 AM CDT POCT-GLUCOSE METER Routine 05/12/2018 9:11 PM CDT POCT-GLUCOSE METER Routine 05/12/2018 4:30 PM CDT POCT-GLUCOSE METER Routine 05/12/2018 11:49 AM CDT POCT-GLUCOSE METER Routine 05/12/2018 8:34 AM CDT BASIC METABOLIC PANEL (7) Routine 05/12/2018 5:04 AM CDT CBC (HEMOGRAM ONLY) Routine 05/12/2018 5:04 AM CDT POCT-GLUCOSE METER Routine 05/12/2018 12:05 AM CDT POCT-GLUCOSE METER Routine 05/11/2018 5:13 PM CDT POCT-GLUCOSE METER Routine 05/11/2018 10:02 AM CDT TRANSFUSION SERVICE REPORT 05/01/2018 6:04 PM CDT - SCAN XR CHEST 2 VIEWS Routine 04/30/2018 4:00 PM CDT CBC W/PLT COUNT & AUTO Routine 04/30/2018 3:36 PM CDT Results for this DIFFERENTIAL procedure are in the results section. TYPE AND SCREEN, AUTOMATED Routine 04/30/2018 3:36 PM CDT APTT Routine 04/30/2018 3:36 PM CDT PROTHROMBIN TIME/INR Routine 04/30/2018 3:36 PM CDT CBC W/PLT COUNT & AUTO Routine 04/30/2018 3:36 PM CDT Results for this DIFFERENTIAL procedure are in the results section. BASIC METABOLIC PANEL (7) Routine 04/30/2018 3:36 PM CDT ECG 12-LEAD Routine 04/30/2018 3:29 PM CDT Procedure Note - Interface, External Ris In - 04/30/2018 3:52 PM CDT Ventricular Rate 84 BPM Atrial Rate 65 BPM QRS Duration 100 ms Q-T Interval 392 ms QTC Calculation(Bazett) 463 ms R [place] 25 degrees T [place] 241 degrees Atrial fibrillation with premature ventricular or aberrantly conducted complexes ST & T wave abnormality, consider inferolateral ischemia Prolonged QT Abnormal ECG No previous ECGs available ECG 12-LEAD Routine 04/30/2018 3:29 PM CDT after 04/23/2018 Results RHYTHM STRIP - SCAN (05/19/2018 1:00 PM CDT) Narrative Performed At POC-Glucose meter (05/16/2018 7:35 AM CDT)Only the most recent of21 resultswithin the time period is included. POC-Glucose Meter 184 (H)Comment: TESTED AT 70 - 110 mg/dL [address] [address] Specimen Blood Performing Organization Address City/State/Zipcode Phone Number [address] [address] [phone] CENTER CBC (Hemogram only) (05/16/2018 4:53 AM CDT)Only the most recent of6 resultswithin the time period is included. WBC 11.0 (H) 3.5 - 10.5 K/L [facility] RBC 3.56 (L) 4.63 - 6.08 M/L [facility] Hemoglobin 11.1 (L) 13.7 - 17.5 GM/DL [facility] Hematocrit 34.5 (L) 40.1 - 51.0 % [facility] MCV 96.9 (H) 79.0 - 92.2 fL [facility] MCH 31.2 25.7 - 32.2 pg [facility] 32.2 (L) 32.3 - 36.5 GM/DL [facility] RDW 13.2 11.6 - 14.4 % [facility] Platelets 191 150 - 450 K/CU MM [facility] MPV 10.6 9.4 - 12.4 fL [facility] nRBC 0 0 - 0 /100 WBC [facility] Specimen Blood Performing Organization Address City/State/Zipcode Phone Number [facility] [address] [place] [address] CENTER Basic Metabolic Panel (05/16/2018 4:53 AM CDT)Only the most recent of7 resultswithin the time period is included. Sodium 138 136 - 145 meq/L [facility] Potassium 3.7 3.5 - 5.1 meq/L [facility] Chloride 107 98 - 107 meq/L [facility] CO2 22 22 - 29 meq/L [facility] BUN 9 7 - 21 mg/dL [facility] Creatinine 0.78 0.57 - 1.25 mg/dL [facility] Glucose 144 (H) 70 - 105 mg/dL [facility] Calcium 9.2 8.4 - 10.2 mg/dL [facility] EGFR 96Comment: ESTIMATED GFR IS mL/min/1.73 sq m [facility] NOT ACCURATE [facility] CLEARANCE IN PREDICTING GLOMERULAR FILTRATION RATE. ESTIMATED GFR IS NOT APPLICABLE FOR DIALYSIS PATIENTS. Specimen Blood Performing Organization Address City/[facility]/Zipcode Phone Number [address] [address] [phone] CENTER Gentamicin level, trough (05/15/2018 4:44 AM CDT) Gentamicin Trough 1.9 (H) 0.5 - 1.0 ug/mL [facility] Specimen Blood Narrative Performed At Dosing [facility] Target Level (mcg/mL) 1-1.5 mg/kg q 8-12 HR 0.5-1.0 3-7 mg/kg q 24 HR<0.5 Performing Organization Address City/State/Zipcode Phone Number [facility] [address] [place] [address] [phone] CENTER Tissue Exam (05/13/2018 2:48 PM CDT) Case Report Surgical Pathology Report Case: [id number] [facility] Authorizing Provider:Byron Ardon MDCollected: 05/13/2018 1448 [facility] Ordering Location: [facility] PERIOPERATIVE Received: 05/14/2018 0818 SERVICES Pathologist: Eze Guzman MD Specimens: A) - Mesh B) - Soft Tissue, Other, bladder with mesh C) - Prostate DIAGNOSIS A. MESH, URINARY BLADDER, REMOVAL: [facility] - MESH IDENTIFIED (GROSS ONLY) [facility] B. URINARY BLADDER WITH MESH, EXCISION: - MODERATE CHRONIC AND FOCAL ACUTE INFLAMMATION - MUCOSAL EROSION, NEGATIVE FOR DYSPLASIA/CARCINOMA - MUSCULARIS PROPRIA IS PRESENT C. PROSTATE, LAPAROSCOPIC SIMPLE PROSTATECTOMY: - NODULAR HYPERPLASIA - NECROTIZING GRANULOMATOUS INFLAMMATION - NEGATIVE FOR FUNGAL AND ACID FAST MICROORGANISMS Signing Pathologist Direct Phone Line: [phone] COMMENT Special stains for [employer] and [facility] GMS were negative for acid [facility] fast and fungal microorganisms, respectively. CPT Code(s) 33777 [facility] [address] [facility] [address] X2 CLINICAL HISTORY Incomplete bladder emptying [facility] SPECIMEN SOURCE A. Mesh; B. Bladder with [facility] mesh; C. Prostate [facility] GROSS DESCRIPTION Specimen A: Received fresh labeled "mesh" are two irregular burroughs-white portions of mesh material measuring 3.5 x 2.0 x 0.2 cm in aggregate. The specimen is for gross identification only. [facility] Specimen B: Received fresh labeled "bladder with mesh" are three irregular pink-parker to burroughs-white rubbery cauterized fragments of soft tissue with adherent mesh material measuring 3.0 x 2.5 x 0.5 cm in aggregate. Sectioning reveals no discrete masses. The soft tissue is entirely submitted in cassettes B1-B2. Specimen C: Received fresh labeled "prostate" is a 91 gm, 7.5 x 5.0 x 3.0 cm simple prostatectomy specimen. The capsular surface is purple-parker to burroughs-white, dusky, ragged and disrupted. The specimen is inked and serially sectioned to reveal a burroughs-white to yellow -parker, homogeneous, dense, nodular cut surface throughout. No discrete masses are identified. [employer] sections are submitted in cassettes C1-C19. DB/pl MICROSCOPIC DESCRIPTION Performed [facility] Specimen Tissue Tissue - Soft tissue (navigational concept) Tissue - Prostatic structure (body structure) Performing Organization Address City/State/Zipcode Phone Number [address] [address] CENTER Vancomycin level, trough (05/13/2018 11:50 AM CDT) Vancomycin Tr 20.9 (H) 10.0 - 20.0 ug/mL [facility] Specimen Blood Narrative Performed At Please draw trough at 1330 (30 minutes prior [facility] to scheduled vancomycin dose at 1400). Performing Organization Address City/State/[facility] Services[facility] Phone Number [facility] [address] [place] [phone] CENTER TRANSFUSION SERVICE REPORT - SCAN (05/01/2018 6:04 PM CDT) Narrative Performed At XR chest 2 views (04/30/2018 4:00 PM CDT) Specimen Narrative Performed At FINAL REPORT [employer] TECHNIQUE: Frontal and lateral views of the chest. INDICATION: 77-year-old man for preoperative evaluation for prostatectomy. COMPARISON: None. FINDINGS: LINES/TUBES: None. LUNGS: Linear scarring and/or subsegmental atelectasis in the left lower lung zone. No consolidation or pulmonary edema. PLEURA: No pleural effusion or pneumothorax. HEART AND MEDIASTINUM: The cardiomediastinal silhouette is at the upper limit of normal in size. Atherosclerotic calcifications in the thoracic aorta. SOFT TISSUES AND BONES: Degenerative changes of the visualized spine. Multiple fractured median sternotomy wires. Soft tissues are unremarkable. IMPRESSION: No acute cardiopulmonary abnormalities. Signed: Santa Malone MD Report Verified Date/Time:04/30/2018 16:06:13 Reading Location: [address] Radiology Reading Room Procedure Note Interface, External Ris In - 04/30/2018 4:08 PM CDT FINAL REPORT TECHNIQUE: Frontal and lateral views of the chest. INDICATION: 77-year-old man for preoperative evaluation for prostatectomy. COMPARISON: None. FINDINGS: LINES/TUBES: None. LUNGS: Linear scarring and/or subsegmental atelectasis in the left lower lung zone. No consolidation or pulmonary edema. PLEURA: No pleural effusion or pneumothorax. HEART AND MEDIASTINUM: The cardiomediastinal silhouette is at the upper limit of normal in size. Atherosclerotic calcifications in the thoracic aorta. SOFT TISSUES AND BONES: Degenerative changes of the visualized spine. Multiple fractured median sternotomy wires. Soft tissues are unremarkable. IMPRESSION: No acute cardiopulmonary abnormalities. Signed: Santa Malone MD Report Verified Date/Time: 04/30/2018 16:06:13 Reading Location: [address] Radiology Reading Room Performing Organization Address City/[facility]/Zipcode Phone Number RIS Type and screen, automated (04/30/2018 3:36 PM CDT) ABO/RH AUTOMATED (BEAKER) B POSITIVE [facility] Ab Scrn NEGATIVE [facility] Specimen Blood Performing Organization Address [facility]/Zipcode Phone Number [facility] [address] [place] [address] CBC with platelet count + automated diff (04/30/2018 3:36 PM CDT) WBC 10.7 (H) 3.5 - 10.5 K/L [facility] RBC 4.15 (L) 4.63 - 6.08 M/L [facility] Hemoglobin 13.1 (L) 13.7 - 17.5 GM/DL [facility] Hematocrit 40.8 40.1 - 51.0 % [facility] MCV 98.3 (H) 79.0 - 92.2 fL [facility] MCH 31.6 25.7 - 32.2 pg [facility] MCHC 32.1 (L) 32.3 - 36.5 GM/DL [facility] RDW 13.6 11.6 - 14.4 % [facility] Platelets 317 150 - 450 K/CU MM [facility] MPV 10.8 9.4 - 12.4 fL [facility] nRBC 0 0 - 0 /100 WBC [facility] % Neutros 70 % [facility] % Lymphs 20 % [facility] % Monos 7 % [facility] % Eos 2 % [facility] % Baso 0 % [facility] # Neutros 7.44 (H) 1.78 - 5.38 K/L [facility] # Lymphs 2.14 1.32 - 3.57 K/L [facility] # Monos 0.75 0.30 - 0.82 K/L [facility] # Eos 0.24 0.04 - 0.54 K/L [facility] # Baso 0.04 0.01 - 0.08 K/L [facility] Immature Granulocytes-Relative 0 0 - 1 % [facility] Specimen Blood Performing Organization Address City/State/Zipcode Phone Number [facility] [address] [place] [address] [phone] CENTER aPTT (04/30/2018 3:36 PM CDT) PTT 28.7 22.5 - 36.0 seconds [facility] Specimen Blood Performing Organization Address [facility]/Zipcode Phone Number [facility] [address] [place] [address] [place] Prothrombin time/INR (04/30/2018 3:36 PM CDT) Protime 14.8 (H) 11.7 - 14.7 seconds [facility] INR 1.2 <=5.9 [facility] Specimen Blood Narrative Performed At [facility] RECOMMENDED COUMADIN/WARFARIN INR THERAPY RANGES STANDARD DOSE: 2.0 - 3.0 Includes: PROPHYLAXIS for venous thrombosis, systemic embolization; TREATMENT for venous thrombosis and/or pulmonary embolus. HIGH RISK: Target INR is 2.5-3.5 for patients with mechanical heart valves. Performing Organization Address City/[facility] Services[facility] Phone Number [facility] [address] [place] [address] [place] Electrocardiogram, 12-lead (04/30/2018 3:29 PM CDT) Specimen Narrative Performed At Ventricular Rate 84 BPM GE MUSE Atrial Rate 65 BPM QRS Duration 100 ms Q-T Interval 392 ms QTC Calculation(Bazett) 463 ms R [place] 25 degrees T [place] 241 degrees Atrial fibrillation with premature ventricular or aberrantly conducted complexes ST & T wave abnormality, consider inferolateral ischemia Prolonged QT Abnormal ECG No previous ECGs available Confirmed by MD Morales Roberto ([id number]) on 05/01/2018 11:15:37 AM Procedure Note Interface, External Ris In - 05/01/2018 11:15 AM CDT Ventricular Rate 84 BPM Atrial Rate 65 BPM QRS Duration 100 ms Q-T Interval 392 ms QTC Calculation(Bazett) 463 ms R [place] 25 degrees T [place] 241 degrees Atrial fibrillation with premature ventricular or aberrantly conducted complexes ST & T wave abnormality, consider inferolateral ischemia Prolonged QT Abnormal ECG No previous ECGs available Confirmed by MD Morales Roberto ([id number]) on 05/01/2018 11:15:37 AM Performing Organization Address City/State/Zipcode Phone Number GE MUSE after 04/23/2018 Insurance Payer Benefit Plan / Group Subscriber ID Type Phone Address MEDICARE MEDICARE A B xxxxxxxxxxx Medicare MCR SUPPLEMENT/INDIVIDUAL AARP/[facility] xxxxxxxxxxx [facility] (Home) [place] [address] Advance Directives Patient has advance care planning documents, and code status on file. For more information, please contact:[address] [phone] Code Status Date Activated Date Inactivated Comments Full Code 05/13/2018 7:01 PM 05/16/2018 4:03 PM This code status was determined by: Patient
--- OUTSIDE RECORDS SUMMARY | 2019-04-24 14:44 | XMS REPORT | Continuity of Care Document ---
:1940 Author Organization [employer] Care Team Providers Name Role Phone [employer] Unavailable Unavailable Problems Problem Status Onset Classification Date Comments Source Date Reported DJD LUMBAR PAIN Active [facility] 019 [place] Acute renal injury Active Finding 01/01/[address] [facility] UTI (urinary tract Active Finding 01/01/[address] [facility] infection) 018 [facility] [place] Benign prostatic Active Finding 01/01/[address] [facility] hyperplasia [facility]18 [facility] [place] History of abdominal Active Finding 01/01/[address] [facility] surgery [facility]18 [facility] [place] Essential Active Finding 01/01/[address] [facility] hypertension 018 [facility] [place] CAD (coronary artery Active Finding 01/01/[address] [facility] disease) 018 [facility] [place] Diabetes mellitus Active Finding 01/01/[address] [facility] with hyperglycemia 018 [facility] [place] Accidental Active Finding 01/01/[address] [facility] perforation of [facility]18 [facility] bladder during [place] operative procedure Total bilirubin, Active Finding 01/01/[address] [facility] elevated 018 [facility] [place] Acute metabolic Active Finding 01/01/[address] [facility] [address] encephalopathy 018 [facility] [place] Sepsis Active Finding 01/01/[address] [facility] [facility] [place] Carotid artery Active Finding 01/01/[address] [facility] disease 018 [facility] [place] Metabolic acidosis Active Finding 01/01/[address] [facility] [address] [facility] [place] Uremia Active Finding 01/01/[address] [facility] [address] [facility] [place] GERD Active Finding 01/01/[address] [facility] [address] (gastroesophageal [facility]18 [facility] reflux disease) [place] Acute urinary Active Finding 01/01/[address] [facility] [address] retention 018 [facility] [place] Hypomagnesemia Active Finding 01/01/[address] [facility] [facility]18 [facility] [place] Acute kidney injury Active Finding 01/01/[address] [facility] [facility] [place] Acute retention of Active Finding 01/01/[address] [facility] [address] urine 018 [facility] [place] Coronary artery Active Finding 01/01/[address] [facility] disease 018 [facility] [place] Gastroesophageal Active Finding 01/01/[address] [facility] reflux disease 018 [facility] [place] High total bilirubin Active Finding 01/01/[address] [facility] [address] [facility] [place] Urinary tract Active Finding 01/01/[address] [facility] infection 018 [facility] [place] AMS, UTI, KIDNEY Active [facility] INJURY [address] [place] [address] INJURY OF URETER Active [address] [id number], [id number] Active [facility] BILATERAL UMBILICAL [address] [place] [address] OUMAR Chest pain (finding) Active Problem 11/22/2018 [facility] 013 migrated Group, from [facility] on 02/05/15. [facility] [place] Unspecified injury 01/05/2018 [facility] of ureter, initial City encounter Carotid Active Problem 11/22/2018 Medical atherosclerosis Group, (disorder) [facility] Coronary Active Problem 11/22/2018 [facility] arteriosclerosis migrated Group, (disorder) from [facility] on 02/05/15. [facility] [place] Diabetes mellitus Active Problem 11/22/2018 Medical (disorder) Group,[facility] Femoral hernia Active Problem 11/22/2018 Medical (disorder) Group,[facility] [place] Gastroesophageal Active Problem 11/22/2018 Medical reflux disease with Group, esophagitis [facility] (disorder) [facility] [place] Glaucoma (disorder) Active Problem 11/22/2018 Medical Group,[facility] Hyperlipidemia Active Problem 11/22/2018 Medical (disorder) Group,[facility] [place] Hypertensive Active Problem 11/22/2018 [facility] disorder, systemic migrated Group, arterial (disorder) from [facility] on 02/05/15. [facility] Mitral valve Active Problem 11/22/2018 Medical regurgitation Group, (disorder) [facility] Nonspecific ST-T Active Problem 11/22/2018 Medical abnormality on Group, electrocardiogram 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 Group, (disorder) [facility] Umbilical hernia Active Problem 11/22/2018 Medical (disorder) Group,[facility] ALTERED MENTAL Active [facility] STATUS, UNSPECIFIED City UNSPECIFIED INJURY Active [facility] OF URETER, INITIAL City EN AMS/ UTI/ DIRECT Active [facility] ADMIT [facility] Medications Medication Details Route Status Patient Ordering Order Source Instructions Provider Date lisinopril 5 mg 5 mg=1 tab, PO, Active 11/03[facility] Medical oral tablet BID, 0 2018 Group Refill(s) sitagliptin 50 50 mg=1 tab, Active 11/03[facility] Medical MG Oral Tablet PO, Daily, 0 2018 Group [Januvia] Refill(s) Ciprofloxacin 250 mg=1 tab, Active 02/24[facility] Medical 250 MG Oral PO, Q12H, X 7 2017 Group Tablet [Cipro] day, # 14 tab, 0 Refill(s), Pharmacy: [facility] [id number] Eliquis 5 mg, 1 tab, Inactive 01/02[facility] Route: PO, Drug 2017 [facility] form: TAB, BID, Dosing Weight 93.295, kg, Start date: 01/02/18 17:00:00 CDT, Duration: 30 day, Stop date: 02/01/18 9:00:00 CDTNotes: Same as: Eliquis Acetaminophen 1 tab, PO, Q6H, Active 01/02[facility] 300 MG / Codeine PRN Pain, X 5 2017 [facility] Phosphate 30 MG day, # 20 tab, Oral Tablet 0 Refill(s) [Tylenol with Codeine #3] Hydrocortisone 5 1 appl, TOP, Active [facility]/ML Topical BID, PRN Rash, 2017 [facility] Cream 0 Refill(s) Cephalexin 500 500 mg=1 cap, Active [facility] Oral Capsule PO, TID, X 7 2017 [facility] [Keflex] day, # 21 cap, 0 Refill(s) Hydrocortisone 5 1 appl, Route: Inactive [facility] MG/ML Topical TOP, BID, Drug 2017 [facility] Cream form: CRM, PRN Rash, Start date: 01/02/18 10:55:00 CDT, Duration: 30 day, Stop date: 02/01/18 10:54:00 CDT Brimonidine 1 drp, Route: Inactive [facility] tartrate 2 MG/ML BOTH EYES, 2017 [facility] / Timolol 5 Q12H, Drug MG/ML Ophthalmic form: SOLN, Solution Start date: [Combigan] 01/01/18 21:00:00 CDT, Duration: 30 day, Stop date: 01/31/18 9:00:00 CDT timolol 1 drp, Route: No Longer 01/02[facility] ophthalmic BOTH EYES, Active 2017 [facility] Q12H, Drug form: SOLN, Start date: 01/01/18 21:00:00 CDT, Duration: 30 day, Stop date: 01/31/18 9:00:00 CDTNotes: (Same As: Timoptic, Betimol) metoprolol 100 mg, 2 tab, No Longer [facility] tartrate Route: PO, Drug Active 2017 [facility] form: TAB, Q12H, Dosing Weight 93.295, kg, Start date: 01/01/18 21:00:00 CDT, Duration: 30 day, Stop date: 01/31/18 9:00:00 CDTNotes: (Same as: Lopressor) brimonidine 1 drp, Route: No Longer 01/02[facility] ophthalmic BOTH EYES, Active 2017 [facility] Q12H, Drug form: SOLN, Start date: 01/01/18 21:00:00 CDT, Duration: 30 day, Stop date: 01/31/18 9:00:00 CDTNotes: (Same As: Alphagan) latanoprost 1 drp, Route: No Longer [facility] ophthalmic Each Affected Active 2017 [facility] Eye, Bedtime, Drug form: SOLN, Start date: 01/01/18 21:00:00 CDT, Duration: 30 day, Stop date: 01/30/18 21:00:00 CDTNotes: Keep refrigerated. (Same as:Xalatan) Opened bottle may be stored at room temperature for 6 weeks Magnesium 2 gm, 50 mL, Inactive [facility] Sulfate Route: IVPB2017 [facility] Drug form: INJ, Q2H, Dosing Weight 93.295, kg, Total dose=4 gm, Start date: 01/01/18 18:00:00 CDT, Duration: 2 doses or times, Stop date: 01/01/18 20:00:00 CDTNotes: WASTE: F/P - Sink; E - Municipal Trash Bin travoprost 0.04 1 drp, Route: Inactive [facility] MG/ML Ophthalmic BOTH EYES, Drug 2017 [facility] Solution Form: SOLN, [Travatan] Dosing Weight 93.295, kg, QPM, Start date: 01/01/18 17:00:00 CDT, Duration: 30 day, Stop date: 01/30/18 17:00:00 CDT Protonix 20 mg, 1 tab, No Longer 01/01[facility] Route: PO, Drug Active 2017 [facility] form: ECTAB, Before Lunch, Dosing Weight 93.295, kg, Start date: 01/01/18 11:30:00 CDT, Duration: 30 day, Stop date: 01/30/18 11:30:00 CDTNotes: Tablet should not be chewed or crushed. Docusate 100 mg, 1 cap, No Longer [facility] Route: PO, Drug Active 2017 [facility] form: CAP, BID, Dosing Weight 93.295, kg, Start date: 01/01/18 9:00:00 CDT, Duration: 30 day, Stop date: 01/30/18 17:00:00 CDTNotes: (Same as: Colace) (Do Not Crush) albumin human 25 gm, 100 mL, Inactive [facility] 25% intravenous Route: IVPB2017 [facility] solution Drug form: INJ, ONCE, Dosing Weight 93.295, kg, Start date: 01/01/18 5:48:00 CDT, Stop date: 01/01/18 5:48:00 CDTNotes: LOT#: Mfg: WASTE: F/P - Red; E -Red (Same as: Albuminar) "blood product derivative" NS (Bolus) IV 1,000 mL, 1,000 Inactive [facility] ml/hr, Infuse 2017 [facility] Over: 1 hr, Route: IV, 1,000, Drug form: INJ, ONCE, Priority: STAT, Dosing Weight 93.295 kg, Start date: 01/01/18 5:48:00 CDT, Stop date: 01/01/18 5:48:00 CDT Ceftriaxone 1 gm, Route: No Longer [facility] IVPB, [id number], [address] Dosing Weight 93.295, kg, Start date: 01/01/18 0:00:00 CDT, Duration: 3 day, Stop date: 01/03/18 0:00:00 CDT, ABX Indication: Urinary Tract InfectionNotes: (Same As: Rocephin). Use with 100 mL NS and infuse over 30 min MEDICATION WASTE Product Size: 1000 mg Product Wasted: ___ mg Insulin Lispro 2 unit, 0.02 No Longer [facility] mL, Route: [address] SUB-Q, Drug form: SOLN, TID-Before Meals, Dosing [...] at room temperature. Expires in days from D ate Dextrose 50% 12.5 gm, 25 mL, No Longer [facility] Syringe Route: IVP, [address] Drug Form: INJ, Dosing Weight 93.295, kg, PRN, PRN Blood Glucose Results, Start date: 12/31/17 23:08:00 CDT, Duration: 30 day, Stop date: 01/30/18 23:07:00 CDT Glucagon 1 mg, Route: No Longer [facility] IM, Drug form: [address] PDR/INJ, PRN, Dosing Weight 93.295, kg, PRN Blood Glucose Results, Start date: 12/31/17 23:08:00 CDT, Duration: 30 day, Stop date: 01/30/18 23:07:00 CDT Saline Flush 10 ml, Route: No Longer [facility] 0.9% IVP, Drug Form: [address] INJ, Dosing Weight 93.295, kg, PRN, PRN Line Flush, Start date: 12/31/17 23:07:00 CDT, Duration: 30 day, Stop date: 01/30/18 23:06:00 CDTNotes: (Same as: BD Posiflush) Ondansetron 4 mg, 1 tab, No Longer 01/01[facility] Route: PO, Drug [address] form: TABDIS, Q6H, Dosing Weight 93.295, kg, PRN Nausea & Vomiting, Start date: 12/31/17 23:07:00 CDT, Duration: 30 day, Stop date: 01/30/18 23:06:00 CDTNotes: (Same as: Zofran ODT) Morphine 3 mg, 1.5 mL, No Longer 01/01[facility] Route: PO, Drug Active 2017 [facility] form: SOLN, Q4H, Dosing Weight 93.295, kg, PRN Pain Score 7-10, Start date: 12/31/17 23:07:00 CDT, Stop date: 01/30/18 23:06:00 CDTNotes: (Same as:MORPhine Sulfate) Acetaminophen 650 mg, 2 tab, No Longer 01/01[facility] Route: PO, Drug Active [address] [place] [address] form: TAB, Q4H, Dosing Weight 93.295, kg, PRN Pain 1-3/Temp > 100.4 F, Start date: 12/31/17 23:07:00 CDT, Duration: 30 day, Stop date: 01/30/18 23:06:00 CDTNotes: Do not exceed 4 gm/day. (Same as: Tylenol) Acetaminophen 1 tab, Route: No Longer [facility] 325 MG / PO, Drug Form: Active 2017 [facility] Hydrocodone TAB, Dosing Bitartrate 5 MG Weight 93.295, Oral Tablet kg, Q4H, PRN Pain Score 4-6, Start date: 12/31/17 23:07:00 CDT, Duration: 30 day, Stop date: 01/30/18 23:06:00 CDTNotes: (Same as: [place] 325/5) Do not exceed 4gm/day of acetaminophen. Sodium Chloride 1,000 mL, Rate: No Longer [facility] 0.9% IV 1,000 mL 75 ml/hr, Active 2017 [facility] Infuse over: 13.3 hr, Route: IV, Dosing Weight 93.295 kg, Total Volume: 1,000, Start date: 12/31/17 23:07:00 CDT, Duration: 30 day, Stop date: 01/30/18 23:06:00 CDT, 2.19, m2 Amlodipine DAILY [address] [facility] Besylate 2018 [facility] [place] Aspirin DAILY Active [facility] [place] Glipizide DAILY Active [facility] [place] Atorvastatin AT BEDTIME Active [facility] Calcium 2018 [facility] [place] Metformin Hcl TWICE DAILY Active [facility] 2018 [facility] [place] Metoprolol DAILY Active [facility] St[facility] Succinate 2018 [facility] Lisinopril DAILY Active [facility] St[facility] 2018 [facility] [place] Docusate DAILY Active [facility] 2018 [facility] Omeprazole DAILY Active [facility] Magnesium 2018 [facility] gly[facility]rolate Route: IV, Drug Inactive [facility] (ANES) form: INJ, 2017 [facility] ONCE, Stop date: 12/23/17 16:01:00 CDT neostigmine Route: IV, Drug Inactive [facility] (ANES) form: INJ, 2017 [facility] ONCE, Stop date: 12/23/17 16:01:00 CDT ondansetron Route: IV, Drug Inactive 12/23[facility] (ANES) form: INJ, 2017 ONCE, Stop date: 12/23/17 15:52:00 CDT Hydralazine 10 mg, Route[facility]P, Q20Min, 2017 [facility] Dosing Weight 84.091, kg, PRN Elevated BP, Start date: 12/23/17 14:45:00 CDT, Duration: 2 doses or times, Stop date: Limited # of times Ondansetron 4 mg, Route: [facility] IVP, ONCE, 2017 [facility] Dosing Weight 84.091, kg, PRN Nausea & Vomiting, Start date: 12/23/17 14:45:00 CDT Morphine 2 mg, Route: Inactive [address] [place] [address] IVP, Q5Min, 2017 [facility] Dosing Weight 84.091, kg, PRN Pain Score 4-6, Start date: 12/23/17 14:45:00 CDT, Duration: 5 doses or times, Stop date: Limited # of times Naloxone 0.4 mg, Route: [facility] IVP, Q2MIN, 2017 [facility] Dosing Weight 84.091, kg, PRN Narcotic Reversal, Start date: 12/23/17 14:45:00 CDT, Duration: 8 doses or times, Stop date: Limited # of times Flumazenil 0.2 mg, Route: [facility] IVP, PRN, 2017 [facility] Dosing Weight 84.091, kg, PRN Benzodiazepine Reversal, Initial dose, Start date: 12/23/17 14:45:00 CDT, Duration: 30 day, Stop date: 01/22/18 14:44:00 CDT Hydromorphone 0.5 mg, Route: [facility] IVP, Q5Min, 2017 [facility] Dosing Weight 84.091, kg, PRN Pain Score 7-10, Start date: 12/23/17 14:45:00 CDT, Duration: 4 doses or times, Stop date: Limited # of times rocuronium Route: IV, Drug Inactive [facility] (ANES) form: INJ, 2017 ONCE, Stop date: 12/23/17 14:22:00 CDT fentaNYL (ANES) Route: IV, Drug Inactive [facility] form: INJ, 2017 [facility] ONCE, Stop date: 12/23/17 14:17:00 CDT lidocaine (ANES) Route: IV, Drug Inactive [facility] form: INJ, 2017 [facility] ONCE, Stop date: 12/23/17 14:17:00 CDT propofol (ANES) Route: IV, Drug Inactive [facility] form: INJ, 2017 [facility] ONCE, Stop date: 12/23/17 14:17:00 CDT ePHEDrine (ANES) Route: IV, Drug Inactive 12/23[facility] form: INJ, 2017 [facility] ONCE, Stop date: 12/23/17 14:02:00 CDT ceFAZolin (ANES) Route: IV, Drug Inactive [facility] form: INJ, 2017 [facility] ONCE, Stop date: 12/23/17 14:02:00 CDT acetaminophen Route: IV, Drug Inactive [place] (ANES) 10 mg form: INJ, 2017 [facility] Start date: 12/23/17 13:24:00 CDT, Stop date: 12/23/17 14:24:00 CDT Lactated Ringers Route: IV, Inactive [facility] Injection IV Total Volume: 2017 [facility] (ANES) 1000 mL 1,000, Start date: 12/23/17 13:12:00 CDT, Stop date: 12/23/17 14:12:00 CDT Lidocaine 0.5 mL, Route: Inactive [facility] Hydrochloride 10 INTRADERM, 2017 [facility] MG/ML Injectable Dosing Weight Solution 84.091, kg, ONCALL, Start date: 12/23/17 11:00:00 CDT, Duration: 1 doses or times Sodium Chloride 1,000 mL, Rate: Inactive [place] 0.9% IV 1000 mL 25 ml/hr, 2017 [facility] Infuse over: 40 hr, Route: IV, Dosing Weight 84.091 kg, Total Volume: 1,000, Start date: 12/23/17 10:33:00 CDT, Duration: 30 day, Stop date: 01/22/18 10:32:00 CDT, 2.06, m2 Ancef + sterile 2 gm, Route: Inactive [facility] water 20 mL IVPB, ONCE, 2018 [facility] Dosing Weight 84.091, kg, Start date: 12/23/17 10:33:00 CDT, Stop date: 12/23/17 10:33:00 CDT, ABX Indication: Surgical ProphylaxisNote s: (Same As: Deanne Butler) MEDICATION WASTE Product Size: 1000 mg Product Wasted: ___ mg amLODIPine 5 mg 5 mg=1 tab, PO, Active Medical oral tablet Daily, # 90 2018 Group tab, 1 Refill(s), Pharmacy: [facility], DUE FOR AN OFFICE VISIT. PLEASE CALL DR. FLETCHER'S OFFICE TO MAKE AN APT. lisinopril 20 mg 20 mg=1 tab, No Longer Medical oral tablet PO, Daily, # 90 Active 2018 Group tab, 1 Refill(s), Pharmacy: [facility], DUE FOR AN OFFICE VISIT. PLEASE CALL DR. COLVIN'S OFFICE TO MAKE AN APT. Metoprolol 100 mg=1 tab, Active Medical Succinate ER 100 PO, Daily, # 90 2018 Group mg oral tablet, tab, 1 extended release Refill(s), Pharmacy: [facility] atorvastatin 40 40 mg=1 tab, Active Medical mg oral tablet PO, Daily, # 90 2018 Group tab, 1 Refill(s), Pharmacy: [facility] dapagliflozin 5 mg=1 tab, PO, Active Medical propanediol 5 MG Daily, 0 2018 Group Oral Tablet Refill(s) [Farxiga] atorvastatin 40 40 mg=1 tab, No Longer Medical mg oral tablet PO, Daily, 0 Active 2018 Group Refill(s) apixaban 5 MG 5 mg=1 tab, PO, Active Medical Oral Tablet BID, # 180 tab, 2017 Group [Eliquis] 1 Refill(s), Pharmacy: [facility] Allergies, Adverse Reactions, Alerts Substance Category Reaction Severity Reaction Status Date Comments Source type Reported NKFA Assertion Food Active [facility] HOS allergy [place] Immunizations No Data Provided for This Section Results Order Name Results Value Reference Date Interpretation Comments Source Range CHEM PANEL Magnesium 2.2 1.8 - 2.4 01/02 [facility] ELECTROLYT AGAP 12.7 10.0 - 01/02 ES 20.0 [facility] ELECTROLYT CO2 28 24 - 32 01/02 [facility] ELECTROLYT Calcium Lvl 7.7 8.5 - 10.5 01/02 [facility] ELECTROLYT BUN 12 7 - 22 01/02 [facility] ELECTROLYT Sodium Lvl 143 135 - 145 01/02 [facility] ELECTROLYT Chloride Lvl 106 95 - 109 01/02 [facility] ELECTROLYT Potassium 3.7 3.5 - 5.1 01/02 [facility] ELECTROLYT eGFR 85 01/02 [facility] Comment: The [facility] eGFR is City calculated using the CKD-EPI formula. In most young, healthy individuals the eGFR will be >90 mL/min/1.73m2 . The eGFR declines with age. An eGFR of 60-89 may be normal in some populations, particularly the elderly, for whom the CKD-EPI formula has not been extensively validated. Use of the eGFR is not recommended in the following populations:< br/>
Michelle viduals with unstable creatinine concentration s, including patients and those with serious co-morbid conditions.<b r/>
Patie nts with extremes in muscle mass or diet.

The data above are obtained from the National Kidney Disease Education Program (NKDEP) which additionally recommends that when the eGFR is used in patients with extremes of body mass index for purposes of drug dosing, the eGFR should be multiplied by the estimated BMI. ELECTROLYT Glucose Lvl 161 70 - 99 01/02 [facility] ELECTROLYT Creatinine 0.81 0.50 - 01/02 ES Lvl 1.40 [facility] HEMATOLOGY MPV 8.2 7.4 - 10.4 01/02 [facility] HEMATOLOGY Platelet 247 133 - 450 01/02 [facility] HEMATOLOGY RDW 14.0 11.5 - 01/02 14.5 [facility] HEMATOLOGY WBC 9.7 3.7 - 10.4 01/02 [facility] HEMATOLOGY RBC 3.93 4.70 - 01/02 MH 6.10 /2017 [facility] HEMATOLOGY Hgb 12.0 14.0 - 01/02 MH 18.0 /2017 [facility] HEMATOLOGY Hct 35.4 42.0 - 01/02 MH 54.0 [facility] HEMATOLOGY MCV 90.1 80.0 - 01/02 MH 94.0 /2017 [facility] HEMATOLOGY MCH 30.6 27.0 - 01/02 MH 31.0 [facility] HEMATOLOGY MCHC 34.0 32.0 - 01/02 MH 36.0 [facility] HEMATOLOGY Basophils # 0.1 0.0 - 0.2 01/02 /2017 [facility] HEMATOLOGY Segs 66.9 45.0 - 01/02 MH 75.0 [facility] HEMATOLOGY Eosinophils 4.7 0.0 - 4.0 01/02 [facility] HEMATOLOGY Basophils 1.1 0.0 - 1.0 01/02 [facility] HEMATOLOGY Lymphocytes 19.1 20.0 - 01/02 MH 40.0 [facility] HEMATOLOGY Monocytes 8.2 2.0 - 12.0 01/02 [facility] HEMATOLOGY Segs-Bands # 6.5 1.5 - 8.1 01/02 [facility] HEMATOLOGY Eosinophils 0.5 0.0 - 0.5 01/02 MH /2017 [facility] HEMATOLOGY Monocytes # 0.8 0.0 - 0.8 01/02 [facility] HEMATOLOGY Lymphocytes 1.9 1.0 - 5.5 01/02 MH /2017 [facility] CARDIAC BNP 221 <=100 01/01 ENZYMES pg/mL /2017 [facility] CHEM PANEL Magnesium 1.4 1.8 - 2.4 01/01 MH Lvl /2017 [facility] ELECTROLYT AGAP 10.5 10.0 - 01/01 ES 20.0 [facility] ELECTROLYT CO2 33 24 - 32 01/01 ES [facility] ELECTROLYT Calcium Lvl 8.2 8.5 - 10.5 01/01 [facility] ELECTROLYT Potassium 3.5 3.5 - 5.1 01/01 ES Lvl [facility] ELECTROLYT Sodium Lvl 144 135 - 145 01/01 ES [facility] ELECTROLYT Chloride Lvl 104 95 - 109 01/01 ES [facility] ELECTROLYT BUN 18 7 - 22 01/01 ES [facility] ELECTROLYT Glucose Lvl 107 70 - 99 01/01 ES [facility] ELECTROLYT eGFR 80 01/01 Result Comment: The [facility] eGFR is City calculated using the CKD-EPI formula. In most young, healthy individuals the eGFR will be >90 mL/min/1.73m2 . The eGFR declines with age. An eGFR of 60-89 may be normal in some populations, particularly the elderly, for whom the CKD-EPI formula has not been extensively validated. Use of the eGFR is not recommended in the following populations:< br/>
Michelle viduals with unstable creatinine concentration s, including patients and those with serious co-morbid conditions.<b r/>
Patie nts with extremes in muscle mass or diet.

The data above are obtained from the National Kidney Disease Education Program (NKDEP) which additionally recommends that when the eGFR is used in patients with extremes of body mass index for purposes of drug dosing, the eGFR should be multiplied by the estimated BMI. ELECTROLYT Creatinine 0.92 0.50 - 01/01 ES Lvl 1.40 [facility] HEMATOLOGY Segs-Bands # 6.9 1.5 - 8.1 01/01 [facility] HEMATOLOGY Lymphocytes 1.9 1.0 - 5.5 01/01 # [facility] HEMATOLOGY Monocytes # 0.8 0.0 - 0.8 01/01 [facility] HEMATOLOGY Basophils # 0.1 0.0 - 0.2 01/01 [facility] HEMATOLOGY Eosinophils 0.6 0.0 - 0.5 01/01 # [facility] HEMATOLOGY Segs 66.9 45.0 - 01/01 MH 75.0 [facility] HEMATOLOGY Basophils 0.9 0.0 - 1.0 01/01 [facility] HEMATOLOGY Eosinophils 5.6 0.0 - 4.0 01/01 [facility] HEMATOLOGY Monocytes 7.8 2.0 - 12.0 01/01 [facility] HEMATOLOGY Lymphocytes 18.8 20.0 - 01/01 MH 40.0 [facility] HEMATOLOGY RDW 14.3 11.5 - 01/01 MH 14.5 [facility] HEMATOLOGY Platelet 271 133 - 450 01/01 [facility] HEMATOLOGY MPV 8.2 7.4 - 10.4 01/01 [facility] HEMATOLOGY WBC 10.3 3.7 - 10.4 01/01 [facility] HEMATOLOGY MCHC 33.9 32.0 - 01/01 MH 36.0 [facility] HEMATOLOGY RBC 4.35 4.70 - 01/01 MH 6.10 [facility] HEMATOLOGY Hgb 13.3 14.0 - 01/01 MH 18.0 [facility] HEMATOLOGY Hct 39.3 42.0 - 01/01 MH 54.0 [facility] HEMATOLOGY MCV 90.5 80.0 - 01/01 MH 94.0 [facility] HEMATOLOGY MCH 30.6 27.0 - 01/01 MH 31.0 [facility] URINE AND UA Ketones Negative 01/01 STOOL [facility] URINE AND UA Glucose 150 01/01 STOOL [facility] URINE AND UA Sq Epi None Seen 01/01 STOOL [facility] URINE AND UA Bacteria Few /HPF None Seen 01/01 STOOL /HPF /2017 [facility] URINE AND UA Mucus Few /LPF None Seen 01/01 STOOL /LPF [facility] URINE AND UA RBC 85 0 - 2 01/01 STOOL [facility] URINE AND UA Blood Moderate Negative 01/01 STOOL *ABN* /[address] [facility] (12/31/17 11:41 PM) [facility] URINE AND UA 4.0 0.1 - 1.0 01/01 STOOL Urobilinogen /2017 [facility] URINE AND UA pH 7.0 5.0 - 8.0 01/01 STOOL [facility] URINE AND UA Leuk Est Moderate Negative 01/01 STOOL *ABN* /[address] [facility] (12/31/17 11:41 PM) [facility] URINE AND UA WBC 72 0 - 5 01/01 STOOL [facility] URINE AND UA Bili Negative Negative 01/01 STOOL *NA* /[address] [facility] (12/31/17 11:41 PM) [facility] URINE AND UA Nitrite Negative Negative 01/01 STOOL (12/31/17 11:41 PM) /2017 [facility] URINE AND UA Turbidity Slight Clear 01/01 STOOL *ABN* /[address] [facility] (12/31/17 11:41 PM) [facility] URINE AND UA Spec Grav 1.018 <=1.030 01/01 STOOL [facility] URINE AND UA Color Dark Yellow Yellow 01/01 STOOL *NA* /[address] [facility] Protein >=300 Negative 01/01 STOOL mg/dL mg/dL /2017 [facility] Laboratory Bedside 156 65 - 120 12/31 [facility] Studies Glucose /2017 [facility] [place] [facility] White Blood 11.6 4.3 - 10.9 12/31 [facility] Studies Count /2017 [facility] [place] [facility] Red Cell 14.6 12.1 - 12/[address] [facility] [address] Studies Distribution 15.2 /2017 [facility] Width [place] [facility] Red Blood 4.59 4.33 - 12/[address] [facility] [address] Studies Count 5.43 /2017 [facility] [place] [facility] Platelet 298 152 - 406 12/[address] [facility] [address] Studies Count /2017 [facility] [place] [facility] Neutrophils 77.7 41.7 - 12/[address] [facility] [address] Studies % 73.7 /2017 [facility] [place] [facility] Monocytes % 7.3 3.3 - 12.3 12/31 [facility] [address] Studies /2017 [facility] [place] [facility] Mean 8.7 7.6 - 11.3 12/[address] [facility] [address] Studies Platelet /2017 [facility] Volume [place] [facility] Mean 91.3 80 - 100 12/[address] [facility] [address] Studies Corpuscular /2017 [facility] Volume [place] [facility] Mean 33.6 32.0 - 12/31 [facility] [place]. Studies Corpuscular 36.0 [facility] Hemoglobin [place] [facility] Mean 30.7 27.0 - 12/[address] [facility] [address] Studies Corpuscular 35.0 [facility] Hemoglobin [place] [facility] Lymphocytes 11.7 15.3 - 12/[address] [facility] [address] Studies % 44.8 /2017 [facility] [place] [facility] Hemoglobin 14.1 13.6 - 12/[address] [facility] [address] Studies 17.9 /2017 [facility] [place] [facility] Hematocrit 41.9 39.6 - 12/[address] [facility] [address] Studies 49.0 [facility] [place] [facility] Eosinophils 2.8 0 - 4.4 12/[address] [facility] [address] Studies % /2017 [facility] [place] [facility] Basophils % 0.5 0 - 1.3 12/[address] [facility] [address] Studies /2017 [facility] [place] [facility] Absolute 9.0 1.8 - 8.0 12/[address] [facility] [address] Studies Neutrophil /2018 [facility] [place] [facility] Absolute 0.8 0.1 - 1.3 12/[address] [facility] [address] Studies Monocytes /2017 [facility] (CBC) [place] [facility] Absolute 1.4 0.7 - 4.9 12/31 [facility] [place]. Studies Lymphocytes /2017 [facility] (CBC) [place] [facility] Absolute 0.3 0 - 0.5 12/31 [facility] [address] Studies Eosinophils /2017 [facility] (CBC) [place] [facility] Absolute 0.1 0 - 0.5 12/31 [facility] [place]. Studies Basophils /2017 [facility] (CBC) [place] [facility] Sodium Level 141 135 - 145 12/[address] [facility] [address] Studies /2017 [facility] [place] [facility] Potassium 3.5 3.6 - 5.0 12/31 [facility] [address] Studies Level /2018 [facility] [place] [facility] Glucose 228 65 - 120 12/31 [facility] [place]. Studies Level /2017 [facility] [place] [facility] Estimat 81 90 12/31 [facility] [place]. Studies Glomerular /2017 [facility] Filtration [place] Rate Laboratory Creatinine 0.91 0.61 - 12/31 [facility] [place]. Studies 1. [facility] [place] [facility] Chloride 104 101 - 111 12/31 [facility] [place]. Studies Level /2018 [facility] [place] [facility] Carbon 31 21 - 31 12/31 [facility] [place]. Studies Dioxide /2017 [facility] Level [place] [facility] Calcium 8.6 8.5 - 10.5 12/31 [facility] [place]. Studies Level /2018 [facility] [place] [facility] Blood Urea 21 6 - 20 12/31 [facility] [place]. Studies Nitrogen /2017 [facility] [place] [facility] Lactic Acid 10.9 4.5 - 19.8 12/29 [facility] [place]. Studies Level /2018 [facility] [place] [facility] Procalcitoni 0.31 12/29 [facility] [place]. Studies n /2017 [facility] [place] [facility] Urine pH 6.0 12/29 [facility] Studies /2018 [facility] [place] [facility] Urine Total Urine 12/29 [facility] [place]. Studies Protein Total /2017 [facility] Protein [place] [facility] Urine 1.020 12/29 [facility] [place]. Studies Specific /2017 [facility] [place] [facility] Urine Urine 12/29 [facility] [place]. Studies Nitrite Nitrite /2017 [facility] [place] [facility] Urine Urine 12/29 [facility] [place]. Studies Leukocyte Leukocyte /2017 [facility] Esterase Esterase [place] [facility] Urine Urine 12/29 [facility] [place]. Studies Ketones Ketones /2017 [facility] [place] [facility] Urine Urine 12/29 [facility] [place]. Studies Glucose Glucose /2017 [facility] [place] [facility] Urine Blood Urine 12/29 [facility] [place]. Studies Blood /2017 [facility] [place] [facility] Urine WBC Urine WBC 12/29 [facility] [address] Studies /2017 [facility] [place] [facility] Urine <5 12/29 [facility] [place]. Studies Squamous /2017 [facility] Epithelial [place] Cells Laboratory Urine RBC Urine RBC 12/[address] [facility] [address] Studies /2017 [facility] [place] [facility] Urine Mucus Urine 12/29 [facility] [place]. Studies Mucus /2017 [facility] [place] [facility] Urine Urine 12/29 [facility] Studies Hyaline Hyaline /2017 [facility] Casts Casts [place] [facility] Urine Urine 12/29 [facility] Studies Culture Culture /2017 [facility] Reflexed Reflexed [place] [facility] Urine Urine 12/29 [facility] [place]. Studies Bacteria Bacteria /2017 [facility] [place] [facility] Urine Urine 12/29 [facility] Studies Amorphous Amorphous /2017 [facility] Sediment Sediment [place] [facility] Other Total 12.9 12 - 18 12/29 [facility] [place]. Studies Hemoglobin /2017 [facility] (Blood Gas) [place] [facility] Blood Gas pH 7.39 7.35 - 12/29 [facility] [place]. Studies 7.45 [facility] [place] [facility] Blood Gas 88.5 75 - 100 12/29 [facility] [place]. Studies PO2 /2017 [facility] [place] [facility] Blood Gas 27.1 35 - 45 12/29 [facility] [place]. Studies PCO2 /2017 [facility] [place] [facility] Blood Gas 94.6 94 - 97 12/29 [facility] [place]. Studies Oxyhemoglobi /2017 [facility] n [place] [facility] Blood Gas 21.0 12/29 [facility] [place]. Studies Inspired /2017 [facility] Oxygen [place] [facility] Blood Gas 16.0 22 - 28 12/29 [facility] [place]. Studies HCO3 /2017 [facility] [place] [facility] Blood Gas -8.0 12/29 [facility] [place]. Studies Base Excess /2017 [facility] [place] [facility] Arterial 0.5 0 - 1.5 12/29 [facility] [place]. Studies Blood /2017 [facility] Methemoglobi [place] n Laboratory Arterial 1.2 0 - 1.5 12/29 [facility] [place]. Studies Blood /2017 [facility] - Carboxyhemog [place] lobin Laboratory Arterial Bld 96.2 92 - 98.5 12/29 [facility] [place]. Studies O2 [facility] Saturation [place] (Measur) Laboratory Segmented 85 40 - 80 12/29 [facility] [place]. Studies Neutrophils /2017 [facility] [place] [facility] Monocytes 4 0 - 10 12/29 St. Studies /2017 [facility] [place] [facility] Lymphocytes 4 15 - 42 12/29 [facility] [address] Studies /2017 [facility] [place] [facility] Eosinophils 0 0 - 3 12/29 St. Studies /2017 [facility] [place] [facility] Blood Blood 12/29 [facility] [place]. Studies Morphology Morphology /2017 [facility] - Comment Comment [place] [facility] Basophils 0 0 - 1 12/29 . Studies /2017 [facility] [place] [facility] Band 7 0 - 1 12/29 [facility] [place]. Studies Neutrophils [facility] - [place] [facility] B-Type 406 12/29 [facility] [place]. Studies Natriuretic [facility] Peptide [place] [facility] Creatine 4.1 0.3 - 4.0 12/29 [facility] [place]. Studies Kinase MB /2017 [facility] [place] [facility] Rapid 0.03 12/29 [facility] [place]. Studies Troponin I /2017 [facility] [place] [facility] Total 1.9 0.3 - 1.2 12/29 [facility] [place]. Studies Bilirubin [facility] [place] [facility] Serum Total 7.4 6.0 - 8.3 12/29 [facility] [place]. Studies Protein /2017 [facility] [place] [facility] Magnesium 1.7 1.8 - 2.5 12/29 [facility] [place]. Studies Level /2017 [facility] [place] [facility] Globulin 3.9 2.3 - 3.5 12/29 [facility] [place]. Studies [facility] [place] [facility] Direct 0.5 0 - 0.2 12/29 [facility] [place]. Studies Bilirubin [facility] [place] [facility] Creatine 119 22 - 269 12/29 [facility] [place]. Studies Kinase /2017 [facility] [place] [facility] Aspartate 20 10 - 42 12/29 [facility] [place]. Studies Amino Transf /2017 [facility] - (AST/SGOT) [place] [facility] Alkaline 76 42 - 121 12/29 [facility] [place]. Studies Phosphatase /2017 [facility] [place] [facility] Albumin/Glob 0.9 1.1 - 1.8 12/29 [facility] [place]. Studies ulin Ratio [facility] [place] [facility] Albumin 3.5 3.2 - 5.5 12/29 [facility] [place]. Studies [facility] [place] [facility] Alanine 11 10 - 60 12/29 [facility] Studies Aminotransfe /2017 [facility] - rase [place] (ALT/SGPT) Laboratory Prothrombin 16.6 9.5 - 12.5 12/29 [facility] [place]. Studies Time /2017 [facility] [place] [facility] INR 1.40 12/29 [facility] Studies Internationa [facility] - l Normalized [place] Ratio Laboratory Activated 24.0 24.3 - 12/29 [facility] Studies Partial 36.9 [facility] Thromboplast [place] Time ELECTROLYT Potassium 4.3 3.5 - 5.1 12/18 ES Lvl [facility] ELECTROLYT Chloride Lvl 109 95 - 109 12/18 [facility] ELECTROLYT CO2 28 24 - 32 12/18 [facility] ELECTROLYT Calcium Lvl 9.8 8.5 - 10.5 12/18 ES [facility] ELECTROLYT Sodium Lvl 145 135 - 145 12/18 [facility] ELECTROLYT Glucose Lvl 144 70 - 99 12/18 [facility] ELECTROLYT BUN 17 7 - 22 12/18 ES [facility] ELECTROLYT eGFR 63 12/18 [facility] Comment: The [facility] eGFR is City calculated using the CKD-EPI formula. In most young, healthy individuals the eGFR will be >90 mL/min/1.73m2 . The eGFR declines with age. An eGFR of 60-89 may be normal in some populations, particularly the elderly, for whom the CKD-EPI formula has not been extensively validated. Use of the eGFR is not recommended in the following populations:< br/>
Michelle viduals with unstable creatinine concentration s, including patients and those with serious co-morbid conditions.<b r/>
Patie nts with extremes in muscle mass or diet.

The data above are obtained from the National Kidney Disease Education Program (NKDEP) which additionally recommends that when the eGFR is used in patients with extremes of body mass index for purposes of drug dosing, the eGFR should be multiplied by the estimated BMI. ELECTROLYT Creatinine 1.12 0.50 - 12/18 ES Lvl 1.40 /2017 [facility] ELECTROLYT AGAP 12.3 10.0 - 12/18 ES 20.0 /2017 [facility] HEMATOLOGY Hct 43.7 42.0 - 12/18 54.0 /2017 [facility] HEMATOLOGY Hgb 14.7 14.0 - 12/18 18.0 [facility] Pathology Reports No Data Provided for This Section Diagnostic Reports Report Value Date Source Chest 1view DX EXAM: Chest 1view DX 01/01/2018 [facility] HISTORY: - mild SOB COMPARISON: None Impression: Cardiomegaly with CABG and median sternotomy noted. There is mild interstitial edema and obscuration of the left lung base possibly related to a small effusion and/or atelectasis. Consultation Notes No Data Provided for This Section Discharge Summaries No Data Provided for This Section History and Physicals No Data Provided for This Section Vital Signs Vital Sign Value Date Comments Source BMI Calculated 25.59 11/03/2018 [facility] Weight 80.909 11/03/2018 [facility] Height 177.8 cm 11/03/2018 [facility] Systolic (mm Hg) 106 11/03/2018 [facility] Diastolic (mm Hg) 86 11/03/2018 [facility] Heart Rate 56 11/03/2018 [facility] Heart Rate 76 05/05/2018 [facility] Systolic (mm Hg) 118 05/05/2018 [facility] Diastolic (mm Hg) 74 05/05/2018 [facility] Weight 80 05/05/2018 [facility] BMI Calculated 25.31 05/05/2018 [facility] Height 177.8 cm 05/05/2018 [facility] BMI Calculated 25.14 02/24/2018 [facility] Weight 84.091 02/24/2018 [facility] Height 182.88 cm 02/24/2018 [facility] Systolic (mm Hg) 115 02/24/2018 [facility] Diastolic (mm Hg) 74 02/24/2018 [facility] Heart Rate 80 02/24/2018 [facility] Temperature Oral (F) 97.8 F 01/02/2018 [facility] Systolic (mm Hg) 155 01/02/2018 [facility] Diastolic (mm Hg) 90 01/02/2018 [facility] Respitory Rate 18 01/02/2018 [facility] Heart Rate 65 01/02/2018 [facility] Respitory Rate 16 01/02/2018 [facility] Temperature Oral (F) 98.2 F 01/02/2018 [facility] Heart Rate 60 01/02/2018 [facility] Systolic (mm Hg) 149 01/02/2018 [facility] Diastolic (mm Hg) 72 01/02/2018 [facility] Heart Rate 65 01/02/2018 [facility] Respitory Rate 16 01/02/2018 [facility] Systolic (mm Hg) 136 01/02/2018 [facility] Diastolic (mm Hg) 61 01/02/2018 [facility] Temperature Oral (F) 98.3 F 01/02/2018 [facility] BMI Calculated 27.89 01/01/2018 [facility] Weight 93.295 01/01/2018 [facility] Height 182.88 cm 01/01/2018 [facility] Temperature Oral (F) 97.8 F 12/31/[address] [facility] [place] Heart Rate 80 12/31/[address] [facility] [place] Respitory Rate 17 12/31/[address] [facility] [place] Systolic (mm Hg) 135 12/31/[address] [facility] [place] Diastolic (mm Hg) 71 12/31/[address] [facility] [place] Height 71 12/29/[address] [facility] [place] Weight 185.00 12/29/[address] [facility] [place] Systolic (mm Hg) 142 12/23/2017 [facility] Diastolic (mm Hg) 69 12/23/2017 [facility] Respitory Rate 19 12/23/2017 [facility] Systolic (mm Hg) 143 12/23/2017 [facility] Diastolic (mm Hg) 65 12/23/2017 [facility] Respitory Rate 20 12/23/2017 [facility] Systolic (mm Hg) 143 12/23/2017 [facility] Diastolic (mm Hg) 62 12/23/2017 [facility] Respitory Rate 20 12/23/2017 [facility] Heart Rate 74 12/23/2017 [facility] BMI Calculated 25.86 12/18/2017 [facility] Weight 84.091 12/18/2017 [facility] Height 180.34 cm 12/18/2017 [facility] BMI Calculated 27.46 11/28/2017 [facility] Heart Rate 70 11/28/2017 [facility] Systolic (mm Hg) 117 11/28/2017 [facility] Diastolic (mm Hg) 71 11/28/2017 [facility] Height 177.8 cm 11/28/2017 [facility] Weight 86.818 11/28/2017 [facility] Encounters Location Location Encounter Encounter Reason Attending ADM DC Status Source Details Type Number For Provider Date Date Visit Outpatient [id number] [facility] 07/05 [facility] [place] Outpatient [id number] [facility] 08/13 [facility] [place] Outpatient [id number] [facility] 08/20 [facility] SCAN [facility]ISIT /2015 [place] Outpatient [id number] [facility] 08/20 [facility] [place] Outpatient [id number] [facility] 12/05 [facility] [place] Outpatient [id number] [facility] 06/06 [facility] [place] Outpatient [id number] ECHO VISIT 06/20 [facility] Phone [id number] 07/19 07/21 Cardiology Message /2016 [facility] Outpatient [id number] FRANCES 11/28 [facility] Outpatient [id number] [place] 11/28 11/29 Cardiology David /2017 [facility] [id number] Fer Efren 12/23 12/23 [facility] /2017 [facility] [id number] 12/29 12/[address] [facility] Inpatient /2017 [facility] Emergency [id number] Neri 01/01 01/01 [facility] /2017 [facility] Inpatient [id number] Latonya Latonya Pe 01/01 01/02 [facility] /2017 [facility] Phone [id number] 01/06 01/08 Urology Message /2017 [facility] Outpatient [id number] ROBBI 01/16 [facility] Ambulatory [id number] Robbi 01/16 01/16 Urology [facility] /2017 [facility] Outpatient [id number] [facility] 02/24 [facility] [id number] [place] 02/24 02/25 Urology David /2017 [facility] Outside [id number] 03/19 03/21 Cardiology Medical /2017 [facility] Outpatient [id number] FRANCES 05/05 [facility] [id number] [place] 05/05 05/06 Cardiology [facility] OP Therapy [id number] Yakov 09/22 10/22 [facility] HOS HOSH-[facility] Patients [facility] [place] [facility] OP Therapy [id number] Yakov 10/22 11/21 [facility] HOS HOS-[facility] Patients [facility] [place] [facility] Outpatient [id number] FRANCES 11/03 [facility] Outpatient [id number] Frances 11/03 11/04 Cardiology [place] [facility] Outpatient [id number] [facility] 05/04 [facility] [place] Procedures Procedure Code Date Perfomer [place] [address] 02/25/20 Medical post-voiding 18 Group residual urine and/or bladder capacity by ultrasound, non-imaging Pelvis W/Cont [id number] 12/31/[address] [facility] [place] Anaerobic Blood [id number] 12/30/[address] [facility] Culture 18 - [place] Aerobic Blood [id number] 12/30/[address] [facility] Culture 18 - [place] [id number] 12/30/[address] [facility] [place] Count [id number] 12/30/[address] [facility] [place] Abdomen & Pelvis [id number] 12/30/[address] [facility] Wo Contrast [facility] - [place] Head Brain Wo Cont [id number] 12/30/[address] [facility] - [place] Chest Single View [id number] 12/30/[address] [facility] - [place] CABG - Coronary [id number] 1999 Medical artery bypass Group, graft<sup>1</sup> [facility] Cardiac [id number] Open Grafts Medical catheterization<beckett 2004 Group, p>2</sup> [facility] Carotid [id number] Right and Medical endarterectomy<sup left Group,MH >3</sup> [facility] Repair of [id number] 1 week ago Medical diaphragmatic Group, hiatal [facility] hernia<sup>4</sup> [facility] [place] Assessment and Plan No Data Provided for This Section Plan of Care Plan of Care Date Source Instructions 01/01/2018 KRYSTAL Joseph - [place] PROBLEM: (accidental bladder perforation during surgery, urinary tract infection, GERD, coronary artery disease, diabetes mellitus, hypertension) GOAL: Clear understanding of disease process INSTRUCTIONS: Diet: ADA Activity: Fall precautions Instructions 01/01/2018 KRYSTAL Joseph - [place] PROBLEM: (accidental bladder perforation during surgery, urinary tract infection, GERD, coronary artery disease, diabetes mellitus, hypertension) GOAL: Clear understanding of disease process INSTRUCTIONS: Diet: ADA Activity: Fall precautions Social History Social History Date Source Query Response Date Recorded Comment 01/01/2018 KRYSTAL June Alcohol Use? No December 29, 2017 1:09pm CD- Drugs? No December 29, 2017 1:09pm Query Response Start Date Stop Date Smoking Status Never smoker Social History TypeResponse 12/18/2017 [facility] Alcohol Past Smoking Status Former smoker; Exposure to Tobacco Smoke None; Cigarette Smoking Last 365 Days No; Reg Smoking Cessation Counseling No entered on: 11/03/18 Social History TypeResponse 12/18/2017 [facility] Alcohol Past Smoking Status Former smoker; Exposure to Tobacco Smoke None; Cigarette Smoking Last 365 Days No; Reg Smoking Cessation Counseling No entered on: 12/31/17 Social History TypeResponse 12/18/2017 [facility] Alcohol Past Smoking Status Former smoker; Exposure to Tobacco Smoke None; Cigarette Smoking Last 365 Days No; Reg Smoking Cessation Counseling No entered on: 11/03/18 Family History No Data Provided for This Section Advance Directives Order Name Results Value Date Source Advance Directives Advance Directives Advance Directive Response Recorded Date/Time 01/01/2018 KRYSTAL Joseph - Does Patient Have Living Will [place] No December 31, 2017 6:00pm Durable Power of Cosmetologist Apprentice for Health Care No December 29, 2017 1:09pm Would you like additional information No December 29, 2017 1:09pm Functional Status No Data Provided for This Section
--- OUTSIDE RECORDS SUMMARY | 2019-04-24 14:45 | XMS REPORT | Summary of Care ---
:1940 Author Organization [facility] Cardiology [place] Address [address], [address] [place] [address] Encounter HQ Encntr_[email or web address](FIN) [id number] Date(s): 11/03/18 - 11/03/18 [facility] [address], [address] [place] [address] Discharge Disposition: Home or Self Care Attending Physician: Syed Barbosa MD Referring Physician: Anderson Hernandez MD Vital Signs Most recent to oldest [Reference Range]: 1 Height 177.8 cm (11/03/18 10:43 AM) Blood Pressure [90-140/60-90 mmHg] 106/86 mmHg (11/03/18 10:43 AM) Peripheral Pulse Rate [60-100 bpm] 56 bpm *LOW* (11/03/18 10:43 AM) Weight 80.909 kg (11/03/18 10:43 AM) Body Mass Index 25.59 m2 (11/03/18 10:43 AM) Problem List Condition Effective Dates Status Health Status Informant Carotid atherosclerosis(Confirmed) Active Chest pain1 10/30/12 Active Coronary arteriosclerosis2 Active Diabetes mellitus(Confirmed) Active Hernia, femoral, bilateral(Confirmed) Active Reflux esophagitis(Confirmed) Active Glaucoma(Confirmed) Active Hyperlipidemia(Confirmed) Active Hypertensive disorder3 Active Mitral regurgitation(Confirmed) Active Nonspecific ST-T wave Active electrocardiographic changes(Confirmed) Persistent atrial Active fibrillation(Confirmed) Tricuspid regurgitation(Confirmed) Active Umbilical hernia(Confirmed) Active 1Data migrated from [employer] on 02/05/15.2Data migrated from [employer] on 02/05/15.3Data migrated from [employer] on 02/05/15. Allergies, Adverse Reactions, Alerts Substance Reaction Severity Status NKFA Active NKDA Active Medications Januvia 50 mg oral tablet 50 mg=1 tab, PO, Daily, 0 Refill(s) Start Date: 11/03/18 Status: Orderedlisinopril 5 mg oral tablet 5 mg=1 tab, PO, BID, 0 Refill(s) Start Date: 11/03/18 Status: Ordered Results No data available for this section Immunizations No data available for this section Procedures Procedure Date Related Diagnosis Body Site Status CABG - Coronary artery bypass graft1 Completed Cardiac catheterization2 Completed Carotid endarterectomy3 Completed Repair of diaphragmatic hiatal hernia4 Completed [id number] Grafts [id number] and left41 week ago Social History Social History Type Response Alcohol Past Smoking Status Former smoker; Exposure to Tobacco Smoke None; Cigarette Smoking Last 365 Days No; Reg Smoking Cessation Counseling No entered on: 11/03/18 Assessment and Plan No data available for this section
--- OUTSIDE RECORDS SUMMARY | 2019-04-24 14:46 | XMS REPORT ---
:1940 [facility] Address [address] [place] [address] Dr. Corea [address] [place] [id number] Care Team Providers Name Role Phone BYRON ARDON Unavailable Unavailable Problems This patient has no known problems. Allergies, Adverse Reactions, Alerts This patient has no known allergies or adverse reactions. Medications This patient has no known medications. Results Test Description Test Time Test Comments Text Results Atomic Results Result Comments TISSUE EXAM 2018-05-19 17:28:00 Surgical Pathology Report Case: [id number] Authorizing Provider: Byron Ardon MD Collected: 05/13/2018 1448 Ordering Location: [facility] Received: 05/14/2018 0818 SERVICES Pathologist: Eze Guzman MD Specimens: A) - Mesh B) - Soft Tissue, Other, bladder with mesh C) - Prostate A. MESH, URINARY BLADDER, REMOVAL: - MESH IDENTIFIED (GROSS ONLY)B. URINARY BLADDER WITH MESH, EXCISION: - MODERATE CHRONIC AND FOCAL ACUTE INFLAMMATION - MUCOSAL EROSION, NEGATIVE FOR DYSPLASIA/CARCINOMA - MUSCULARIS PROPRIA IS PRESENTC. PROSTATE, LAPAROSCOPIC SIMPLE PROSTATECTOMY: - NODULAR HYPERPLASIA - NECROTIZING GRANULOMATOUS INFLAMMATION - NEGATIVE FOR FUNGAL AND ACID FAST MICROORGANISMS Signing Pathologist Direct Phone Line: [phone] signed by Eze Guzman MD on 05/19/2018 at 5:28 PMPreliminary result electronically signed by Eze Guzman MD on 05/16/2018 at 11:49 AMSpecial stains for AFB and GMS were negative for acid fast and fungal microorganisms, respectively. [id number] bladder emptying A. Mesh; B. Bladder with mesh; C. Prostate Specimen A: Received fresh labeled "mesh" are two irregular burroughs-white portions of mesh material measuring 3.5 x 2.0 x 0.2 cm in aggregate. The specimen is for gross identification only. Specimen B: Received fresh labeled "bladder with [...] serially sectioned to reveal a burroughs-white to yellow-parker, homogeneous, dense, nodular cut surface throughout. No discrete masses are identified. Center Human Resources Manager sections are submitted in cassettes C1-C19. DB/plPerformed POCT-GLUCOSE METER 2018-05-16 07:37:00 Test Item Value Reference Range Comments POC-GLUCOSE METER (BEAKER) (test 184 mg/dL 70-110 TESTED AT [facility] [address] [facility] vnbw=6065) [facility] [address] BASIC METABOLIC [id number] 06:19:00 Test Item Value Reference Range Comments SODIUM (BEAKER) (test 138 meq/L 136-145 ntme=875) POTASSIUM (BEAKER) (test 3.7 meq/L 3.5-5.1 gone=995) CHLORIDE (BEAKER) (test 107 meq/L 98-107 sczs=154) CO2 (BEAKER) (test 22 meq/L 22-29 hecu=825) BLOOD UREA NITROGEN 9 mg/dL 7-21 (BEAKER) (test jcly=851) CREATININE (BEAKER) (test 0.78 mg/dL 0.57-1.25 jhto=307) GLUCOSE RANDOM (BEAKER) 144 mg/dL 70-105 (test orms=037) CALCIUM (BEAKER) (test 9.2 mg/dL 8.4-10.2 jtlh=210) EGFR (BEAKER) (test 96 mL/min/1.73 sq m ESTIMATED GFR IS NOT xqfm=8449) ACCURATE CREATININE CLEARANCE IN PREDICTING GLOMERULAR FILTRATION RATE. ESTIMATED GFR IS NOT APPLICABLE FOR DIALYSIS PATIENTS. CBC (HEMOGRAM ONLY)2018-05-16 05:48:00 Test Item Value Reference Range Comments WHITE BLOOD CELL COUNT (BEAKER) (test yfvy=057) 11.0 K/ L 3.5-10.5 RED BLOOD CELL COUNT (BEAKER) (test omds=781) 3.56 M/ L 4.63-6.08 HEMOGLOBIN (BEAKER) (test fptl=036) 11.1 GM/DL 13.7-17.5 HEMATOCRIT (BEAKER) (test gjyn=210) 34.5 % 40.1-51.0 MEAN CORPUSCULAR VOLUME (BEAKER) (test pbmu=085) 96.9 fL 79.0-92.2 MEAN CORPUSCULAR HEMOGLOBIN (BEAKER) (test 31.2 pg 25.7-32.2 rifk=743) MEAN CORPUSCULAR HEMOGLOBIN CONC (BEAKER) (test 32.2 GM/DL 32.3-36.5 pkex=489) RED CELL DISTRIBUTION WIDTH (BEAKER) (test 13.2 % 11.6-14.4 gmiw=728) PLATELET COUNT (BEAKER) (test scya=485) 191 K/CU MM 150-450 MEAN PLATELET VOLUME (BEAKER) (test zqmj=197) 10.6 fL 9.4-12.4 NUCLEATED RED BLOOD CELLS (BEAKER) (test 0 /100 WBC 0-0 liaz=685) POCT-GLUCOSE [id number] 21:51:00 Test Item Value Reference Range Comments POC-GLUCOSE METER (BEAKER) 216 mg/dL 70-110 TESTED AT [address] (test kxyu=0192) [place] [address] POCT-GLUCOSE [id number] 19:28:00 Test Item Value Reference Range Comments POC-GLUCOSE METER (BEAKER) 186 mg/dL 70-110 TESTED AT [address] (test ckgl=3504) [place] [id number] POCT-GLUCOSE [id number] 16:57:00 Test Item Value Reference Range Comments POC-GLUCOSE METER (BEAKER) 215 mg/dL 70-110 TESTED AT [address] (test bxfw=3654) [place] [address] POCT-GLUCOSE [id number] 12:43:00 Test Item Value Reference Range Comments POC-GLUCOSE METER (BEAKER) 223 mg/dL 70-110 TESTED AT [address] (test hdgd=6387) [place] [address] POCT-GLUCOSE [id number] 08:13:00 Test Item Value Reference Range Comments POC-GLUCOSE METER (BEAKER) 157 mg/dL 70-110 TESTED AT [facility] [address] (test exhb=4552) [facility] [address] GENTAMICIN LEVEL, [id number] 05:51:00 Test Item Value Reference Range Comments GENTAMICIN TROUGH (BEAKER) (test iogz=528) 1.9 ug/mL 0.5-1.0 Dosing Target Level (mcg/mL)1-1.5 mg/kg q 8-12 HR 0.5- 1.03-7 mg/kg q 24 HR <0.5BASIC METABOLIC [id number] 05:47:00 Test Item Value Reference Range Comments SODIUM (BEAKER) (test 135 meq/L 136-145 yooy=683) POTASSIUM (BEAKER) (test 4.3 meq/L 3.5-5.1 yvxl=168) CHLORIDE (BEAKER) (test 107 meq/L 98-107 pfko=923) CO2 (BEAKER) (test 21 meq/L 22-29 jriu=673) BLOOD UREA NITROGEN 16 mg/dL 7-21 (BEAKER) (test rgjn=106) CREATININE (BEAKER) (test 1.00 mg/dL 0.57-1.25 xtzk=032) GLUCOSE RANDOM (BEAKER) 126 mg/dL 70-105 (test ocid=798) CALCIUM (BEAKER) (test 8.8 mg/dL 8.4-10.2 xcsd=607) EGFR (BEAKER) (test 72 mL/min/1.73 sq m ESTIMATED GFR IS NOT cewd=2609) ACCURATE CREATININE CLEARANCE IN PREDICTING GLOMERULAR FILTRATION RATE. ESTIMATED GFR IS NOT APPLICABLE FOR DIALYSIS PATIENTS. CBC (HEMOGRAM ONLY)2018-05-15 05:31:00 Test Item Value Reference Range Comments WHITE BLOOD CELL COUNT (BEAKER) (test mbjo=107) 11.7 K/ L 3.5-10.5 RED BLOOD CELL COUNT (BEAKER) (test mlva=520) 3.57 M/ L 4.63-6.08 HEMOGLOBIN (BEAKER) (test hdmt=316) 11.1 GM/DL 13.7-17.5 HEMATOCRIT (BEAKER) (test bjkr=977) 35.4 % 40.1-51.0 MEAN CORPUSCULAR VOLUME (BEAKER) (test ouov=748) 99.2 fL 79.0-92.2 MEAN CORPUSCULAR HEMOGLOBIN (BEAKER) (test 31.1 pg 25.7-32.2 rjzf=508) MEAN CORPUSCULAR HEMOGLOBIN CONC (BEAKER) (test 31.4 GM/DL 32.3-36.5 suyu=924) RED CELL DISTRIBUTION WIDTH (BEAKER) (test 13.6 % 11.6-14.4 mvum=904) PLATELET COUNT (BEAKER) (test dvcp=202) 211 K/CU MM 150-450 MEAN PLATELET VOLUME (BEAKER) (test hpar=371) 10.8 fL 9.4-12.4 NUCLEATED RED BLOOD CELLS (BEAKER) (test 0 /100 WBC 0-0 rfjo=760) POCT-GLUCOSE [id number] 21:47:00 Test Item Value Reference Range Comments POC-GLUCOSE METER (BEAKER) 220 mg/dL 70-110 TESTED AT [address] (test pjtl=4340) [place] [address] POCT-GLUCOSE [id number] 17:06:00 Test Item Value Reference Range Comments POC-GLUCOSE METER (BEAKER) 211 mg/dL 70-110 TESTED AT [address] (test swow=2990) [place] [address] POCT-GLUCOSE [id number] 11:44:00 Test Item Value Reference Range Comments POC-GLUCOSE METER (BEAKER) 225 mg/dL 70-110 TESTED AT [address] (test ptwz=6807) [place] [address] POCT-GLUCOSE [id number] 08:29:00 Test Item Value Reference Range Comments POC-GLUCOSE METER (BEAKER) 201 mg/dL 70-110 TESTED AT [address] (test lpzp=6974) [place] [id number] BASIC METABOLIC [id number] 06:04:00 Test Item Value Reference Range Comments SODIUM (BEAKER) (test 136 meq/L 136-145 odhw=453) POTASSIUM (BEAKER) (test 4.7 meq/L 3.5-5.1 movs=030) CHLORIDE (BEAKER) (test 110 meq/L 98-107 ivca=733) CO2 (BEAKER) (test 20 meq/L 22-29 uytj=351) BLOOD UREA NITROGEN 18 mg/dL 7-21 (BEAKER) (test niss=160) CREATININE (BEAKER) (test 0.93 mg/dL 0.57-1.25 hjjj=719) GLUCOSE RANDOM (BEAKER) 195 mg/dL 70-105 (test xkbg=025) CALCIUM (BEAKER) (test 8.4 mg/dL 8.4-10.2 qwbu=705) EGFR (BEAKER) (test 79 mL/min/1.73 sq m ESTIMATED GFR IS NOT gjnf=3248) ACCURATE CREATININE CLEARANCE IN PREDICTING GLOMERULAR FILTRATION RATE. ESTIMATED GFR IS NOT APPLICABLE FOR DIALYSIS PATIENTS. CBC (HEMOGRAM ONLY)2018-05-14 05:27:00 Test Item Value Reference Range Comments WHITE BLOOD CELL COUNT (BEAKER) (test jtgt=380) 15.2 K/ L 3.5-10.5 RED BLOOD CELL COUNT (BEAKER) (test kfva=555) 3.73 M/ L 4.63-6.08 HEMOGLOBIN (BEAKER) (test lhfn=317) 11.6 GM/DL 13.7-17.5 HEMATOCRIT (BEAKER) (test yhyh=967) 36.7 % 40.1-51.0 MEAN CORPUSCULAR VOLUME (BEAKER) (test toio=760) 98.4 fL 79.0-92.2 MEAN CORPUSCULAR HEMOGLOBIN (BEAKER) (test 31.1 pg 25.7-32.2 nqjv=819) MEAN CORPUSCULAR HEMOGLOBIN CONC (BEAKER) (test 31.6 GM/DL 32.3-36.5 dfln=635) RED CELL DISTRIBUTION WIDTH (BEAKER) (test 13.3 % 11.6-14.4 ijaa=161) PLATELET COUNT (BEAKER) (test ocsx=686) 225 K/CU MM 150-450 MEAN PLATELET VOLUME (BEAKER) (test fnor=793) 10.7 fL 9.4-12.4 NUCLEATED RED BLOOD CELLS (BEAKER) (test 0 /100 WBC 0-0 kqxq=464) POCT-GLUCOSE [id number] 21:39:00 Test Item Value Reference Range Comments POC-GLUCOSE METER (BEAKER) 275 mg/dL 70-110 TESTED AT [facility] [address] [facility] (test itbc=4697) [facility] [address] BASIC METABOLIC [id number] 19:42:00 Test Item Value Reference Range Comments SODIUM (BEAKER) (test 137 meq/L 136-145 vpds=141) POTASSIUM (BEAKER) (test 5.1 meq/L 3.5-5.1 njzu=913) CHLORIDE (BEAKER) (test 111 meq/L 98-107 stfp=588) CO2 (BEAKER) (test 21 meq/L 22-29 wibz=608) BLOOD UREA NITROGEN 16 mg/dL 7-21 (BEAKER) (test cskx=498) CREATININE (BEAKER) (test 0.80 mg/dL 0.57-1.25 vgcs=431) GLUCOSE RANDOM (BEAKER) 194 mg/dL 70-105 (test nkho=808) CALCIUM (BEAKER) (test 8.2 mg/dL 8.4-10.2 laup=033) EGFR (BEAKER) (test 93 mL/min/1.73 sq m ESTIMATED GFR IS NOT sufz=2372) ACCURATE CREATININE CLEARANCE IN PREDICTING GLOMERULAR FILTRATION RATE. ESTIMATED GFR IS NOT APPLICABLE FOR DIALYSIS PATIENTS. PACUCBC (HEMOGRAM ONLY)2018-05-13 19:06:00 Test Item Value Reference Range Comments WHITE BLOOD CELL COUNT (BEAKER) (test dpkd=955) 12.5 K/ L 3.5-10.5 RED BLOOD CELL COUNT (BEAKER) (test otnj=952) 3.62 M/ L 4.63-6.08 HEMOGLOBIN (BEAKER) (test nprf=250) 11.4 GM/DL 13.7-17.5 HEMATOCRIT (BEAKER) (test ukie=989) 35.5 % 40.1-51.0 MEAN CORPUSCULAR VOLUME (BEAKER) (test scyo=401) 98.1 fL 79.0-92.2 MEAN CORPUSCULAR HEMOGLOBIN (BEAKER) (test 31.5 pg 25.7-32.2 jxzd=553) MEAN CORPUSCULAR HEMOGLOBIN CONC (BEAKER) (test 32.1 GM/DL 32.3-36.5 pelr=626) RED CELL DISTRIBUTION WIDTH (BEAKER) (test 13.0 % 11.6-14.4 lnsd=809) PLATELET COUNT (BEAKER) (test yrnc=972) 209 K/CU MM 150-450 MEAN PLATELET VOLUME (BEAKER) (test vaci=270) 10.3 fL 9.4-12.4 NUCLEATED RED BLOOD CELLS (BEAKER) (test 0 /100 WBC 0-0 xqwa=378) POCT-GLUCOSE [id number] 18:50:00 Test Item Value Reference Range Comments POC-GLUCOSE METER (BEAKER) 197 mg/dL 70-110 TESTED AT [address] (test dmsa=3807) [facility] [address] VANCOMYCIN LEVEL, [id number] 12:29:00 Test Item Value Reference Range Comments VANCOMYCIN TROUGH (BEAKER) (test yiwe=044) 20.9 ug/mL 10.0-20.0 Please draw trough at 1330 (30 minutes prior to scheduled vancomycin dose at 1400).POCT-GLUCOSE [id number] 07:17:00 Test Item Value Reference Range Comments POC-GLUCOSE METER (BEAKER) 148 mg/dL 70-110 TESTED AT [address] (test stft=3956) [place] [id number] POCT-GLUCOSE [id number] 06:09:00 Test Item Value Reference Range Comments POC-GLUCOSE METER (BEAKER) 149 mg/dL 70-110 TESTED AT [address] (test homq=0838) [place] [id number] BASIC METABOLIC [id number] 06:04:00 Test Item Value Reference Range Comments SODIUM (BEAKER) (test 140 meq/L 136-145 rpoa=828) POTASSIUM (BEAKER) (test 4.4 meq/L 3.5-5.1 mtvu=041) CHLORIDE (BEAKER) (test 108 meq/L 98-107 tvvk=912) CO2 (BEAKER) (test 24 meq/L 22-29 ijjm=942) BLOOD UREA NITROGEN 14 mg/dL 7-21 (BEAKER) (test mhfo=862) CREATININE (BEAKER) (test 0.81 mg/dL 0.57-1.25 bncq=486) GLUCOSE RANDOM (BEAKER) 131 mg/dL 70-105 (test wpln=761) CALCIUM (BEAKER) (test 9.8 mg/dL 8.4-10.2 tjci=340) EGFR (BEAKER) (test 92 mL/min/1.73 sq m ESTIMATED GFR IS NOT wyfh=1749) ACCURATE CREATININE CLEARANCE IN PREDICTING GLOMERULAR FILTRATION RATE. ESTIMATED GFR IS NOT APPLICABLE FOR DIALYSIS PATIENTS. CBC (HEMOGRAM ONLY)2018-05-13 05:38:00 Test Item Value Reference Range Comments WHITE BLOOD CELL COUNT (BEAKER) (test jhjz=110) 7.0 K/ L 3.5-10.5 RED BLOOD CELL COUNT (BEAKER) (test qazp=294) 4.18 M/ L 4.63-6.08 HEMOGLOBIN (BEAKER) (test gkgr=867) 13.1 GM/DL 13.7-17.5 HEMATOCRIT (BEAKER) (test rehq=580) 40.7 % 40.1-51.0 MEAN CORPUSCULAR VOLUME (BEAKER) (test gjqa=566) 97.4 fL 79.0-92.2 MEAN CORPUSCULAR HEMOGLOBIN (BEAKER) (test 31.3 pg 25.7-32.2 bxji=862) MEAN CORPUSCULAR HEMOGLOBIN CONC (BEAKER) (test 32.2 GM/DL 32.3-36.5 siyq=121) RED CELL DISTRIBUTION WIDTH (BEAKER) (test 13.2 % 11.6-14.4 xqsw=553) PLATELET COUNT (BEAKER) (test yxho=431) 225 K/CU MM 150-450 MEAN PLATELET VOLUME (BEAKER) (test lvqx=170) 10.8 fL 9.4-12.4 NUCLEATED RED BLOOD CELLS (BEAKER) (test 0 /100 WBC 0-0 bbma=773) POCT-GLUCOSE [id number] 21:17:00 Test Item Value Reference Range Comments POC-GLUCOSE METER (BEAKER) 164 mg/dL 70-110 TESTED AT [address] (test encu=1652) [facility] [address] POCT-GLUCOSE [id number] 16:39:00 Test Item Value Reference Range Comments POC-GLUCOSE METER (BEAKER) 225 mg/dL 70-110 TESTED AT [address] (test ttuj=6361) [facility] [address] POCT-GLUCOSE [id number] 12:09:00 Test Item Value Reference Range Comments POC-GLUCOSE METER (BEAKER) 186 mg/dL 70-110 TESTED AT [address] (test byfq=8039) [facility] [address] POCT-GLUCOSE [id number] 08:50:00 Test Item Value Reference Range Comments POC-GLUCOSE METER (BEAKER) 194 mg/dL 70-110 TESTED AT [facility] [address] (test tdrc=0211) [facility] [address] BASIC METABOLIC [id number] 06:04:00 Test Item Value Reference Range Comments SODIUM (BEAKER) (test 138 meq/L 136-145 htuc=744) POTASSIUM (BEAKER) (test 3.9 meq/L 3.5-5.1 zwna=446) CHLORIDE (BEAKER) (test 107 meq/L 98-107 jfzv=194) CO2 (BEAKER) (test 22 meq/L 22-29 cufo=999) BLOOD UREA NITROGEN 19 mg/dL 7-21 (BEAKER) (test oduq=220) CREATININE (BEAKER) (test 0.85 mg/dL 0.57-1.25 psdf=139) GLUCOSE RANDOM (BEAKER) 141 mg/dL 70-105 (test fbor=802) CALCIUM (BEAKER) (test 9.2 mg/dL 8.4-10.2 sxep=273) EGFR (BEAKER) (test 87 mL/min/1.73 sq m ESTIMATED GFR IS NOT quwy=3187) ACCURATE CREATININE CLEARANCE IN PREDICTING GLOMERULAR FILTRATION RATE. ESTIMATED GFR IS NOT APPLICABLE FOR DIALYSIS PATIENTS. CBC (HEMOGRAM ONLY)2018-05-12 05:33:00 Test Item Value Reference Range Comments WHITE BLOOD CELL COUNT (BEAKER) (test wova=941) 7.5 K/ L 3.5-10.5 RED BLOOD CELL COUNT (BEAKER) (test ruws=897) 3.71 M/ L 4.63-6.08 HEMOGLOBIN (BEAKER) (test gevg=956) 11.7 GM/DL 13.7-17.5 HEMATOCRIT (BEAKER) (test iwxd=921) 36.1 % 40.1-51.0 MEAN CORPUSCULAR VOLUME (BEAKER) (test onrf=185) 97.3 fL 79.0-92.2 MEAN CORPUSCULAR HEMOGLOBIN (BEAKER) (test 31.5 pg 25.7-32.2 svmi=514) MEAN CORPUSCULAR HEMOGLOBIN CONC (BEAKER) (test 32.4 GM/DL 32.3-36.5 kepe=981) RED CELL DISTRIBUTION WIDTH (BEAKER) (test 13.2 % 11.6-14.4 vykc=557) PLATELET COUNT (BEAKER) (test mbqf=538) 200 K/CU MM 150-450 MEAN PLATELET VOLUME (BEAKER) (test nnye=390) 10.7 fL 9.4-12.4 NUCLEATED RED BLOOD CELLS (BEAKER) (test 0 /100 WBC 0-0 aeos=816) POCT-GLUCOSE [id number] 00:11:00 Test Item Value Reference Range Comments POC-GLUCOSE METER (BEAKER) 143 mg/dL 70-110 TESTED AT [address] (test wpof=5393) [place] [id number] POCT-GLUCOSE [id number] 17:16:00 Test Item Value Reference Range Comments POC-GLUCOSE METER (BEAKER) 261 mg/dL 70-110 TESTED AT [address] (test llgo=7591) [place] [id number] POCT-GLUCOSE [id number] 10:04:00 Test Item Value Reference Range Comments POC-GLUCOSE METER (BEAKER) 153 mg/dL 70-110 TESTED AT [address] (test yseh=7465) [place] [id number] BASIC METABOLIC [id number] 17:28:00 Test Item Value Reference Range Comments SODIUM (BEAKER) (test 144 meq/L 136-145 ggdn=230) POTASSIUM (BEAKER) (test 4.3 meq/L 3.5-5.1 uxyt=707) CHLORIDE (BEAKER) (test 105 meq/L 98-107 dsnz=757) CO2 (BEAKER) (test 26 meq/L 22-29 frlx=511) BLOOD UREA NITROGEN 12 mg/dL 7-21 (BEAKER) (test ngpw=302) CREATININE (BEAKER) (test 0.97 mg/dL 0.57-1.25 pqpe=452) GLUCOSE RANDOM (BEAKER) 150 mg/dL 70-105 (test vezb=801) CALCIUM (BEAKER) (test 10.7 mg/dL 8.4-10.2 vbuu=054) EGFR (BEAKER) (test 75 mL/min/1.73 sq m ESTIMATED GFR IS NOT vrah=6546) ACCURATE CREATININE CLEARANCE IN PREDICTING GLOMERULAR FILTRATION RATE. ESTIMATED GFR IS NOT APPLICABLE FOR DIALYSIS PATIENTS. [id number] 17:26:00 Test Item Value Reference Range Comments PARTIAL THROMBOPLASTIN TIME (BEAKER) (test 28.7 seconds 22.5-36.0 pprf=080) PROTHROMBIN [id number] 17:25:00 Test Item Value Reference Range Comments PROTIME (BEAKER) (test olpf=186) 14.8 seconds 11.7-14.7 INR (BEAKER) (test xnon=086) 1.2 <=5.9 RECOMMENDED COUMADIN/WARFARIN INR THERAPY RANGESSTANDARD DOSE: 2.0 - 3.0 Includes: PROPHYLAXIS forvenous thrombosis, systemic embolization; TREATMENT for venous thrombosis and/or pulmonary embolus.HIGH RISK: Target INR is 2.5-3.5 for patients with mechanical heart valves.CBC W/PLT COUNT & AUTO [id number] 17:17:00 Test Item Value Reference Range Comments WHITE BLOOD CELL COUNT (BEAKER) (test jfxo=013) 10.7 K/ L 3.5-10.5 RED BLOOD CELL COUNT (BEAKER) (test twou=770) 4.15 M/ L 4.63-6.08 HEMOGLOBIN (BEAKER) (test rjyf=962) 13.1 GM/DL 13.7-17.5 HEMATOCRIT (BEAKER) (test fxqo=286) 40.8 % 40.1-51.0 MEAN CORPUSCULAR VOLUME (BEAKER) (test tzcc=770) 98.3 fL 79.0-92.2 MEAN CORPUSCULAR HEMOGLOBIN (BEAKER) (test 31.6 pg 25.7-32.2 ydzm=002) MEAN CORPUSCULAR HEMOGLOBIN CONC (BEAKER) (test 32.1 GM/DL 32.3-36.5 xzkm=235) RED CELL DISTRIBUTION WIDTH (BEAKER) (test 13.6 % 11.6-14.4 ygar=801) PLATELET COUNT (BEAKER) (test hnhq=755) 317 K/CU MM 150-450 MEAN PLATELET VOLUME (BEAKER) (test mxtd=891) 10.8 fL 9.4-12.4 NUCLEATED RED BLOOD CELLS (BEAKER) (test 0 /100 WBC 0-0 ysio=291) NEUTROPHILS RELATIVE PERCENT (BEAKER) (test 70 % dhhk=477) LYMPHOCYTES RELATIVE PERCENT (BEAKER) (test 20 % fgvv=476) MONOCYTES RELATIVE PERCENT (BEAKER) (test 7 % qtis=527) EOSINOPHILS RELATIVE PERCENT (BEAKER) (test 2 % derh=397) BASOPHILS RELATIVE PERCENT (BEAKER) (test 0 % mcyl=375) NEUTROPHILS ABSOLUTE COUNT (BEAKER) (test 7.44 K/ L 1.78-5.38 hkue=585) LYMPHOCYTES ABSOLUTE COUNT (BEAKER) (test 2.14 K/ L 1.32-3.57 rztb=607) MONOCYTES ABSOLUTE COUNT (BEAKER) (test 0.75 K/ L 0.30-0.82 khnl=357) EOSINOPHILS ABSOLUTE COUNT (BEAKER) (test 0.24 K/ L 0.04-0.54 nbpp=064) BASOPHILS ABSOLUTE COUNT (BEAKER) (test 0.04 K/ L 0.01-0.08 efon=594) IMMATURE GRANULOCYTES-RELATIVE PERCENT (BEAKER) 0 % 0-1 (test whvo=8751) RAD, CHEST, 2 [id number] 16:06:00Reason for exam:->screening prior to anesthesiaFINAL REPORT TECHNIQUE: Frontal and lateral views of [...] BONES: Degenerative changes of the visualized spine. Multiplefractured median sternotomy wires. Soft tissues are unremarkable. IMPRESSION:No acute cardiopulmonary abnormalities. Signed: [place] MDReport Verified Date/Time: 04/30/2018 16:06:13 Reading Location: [address] Radiology Reading Room
--- OUTSIDE RECORDS SUMMARY | 2019-04-24 14:46 | XMS REPORT | Summary of Care ---
:1940 Author Organization [facility] Address [address] [facility] [address] [place] [address]- Encounter HQ Kezia_edel([facility]) [id number] Date(s): 10/22/18 - 11/20/18 [facility] [address] [facility] [place] [address] [phone] [phone] Discharge Disposition: Home or Self Care Attending Physician: Yakov Engel MD Vital Signs No data available for [...] Active Umbilical hernia(Confirmed) Active 1Data migrated from [employer] on 02/05/15.2Data migrated from [employer] on 02/05/15.3Data migrated from [employer] on 02/05/15. Allergies, Adverse Reactions, Alerts Substance Reaction Severity Status NKFA Active NKDA Active Medications No data available for this section Results No data available for this section Immunizations No data available for this section Procedures Procedure Date Related Diagnosis Body Site Status CABG - Coronary artery bypass graft1 Completed Cardiac catheterization2 Completed Carotid endarterectomy3 Completed Repair of diaphragmatic hiatal hernia4 Completed [id number] Grafts [id number] and left41 week ago Social History Social History Type Response Alcohol Past Smoking Status Former smoker; Exposure to Tobacco Smoke None; Cigarette Smoking Last 365 Days No; Reg Smoking Cessation Counseling No entered on: 11/03/18 Assessment and Plan No data available for this section
--- OUTSIDE RECORDS SUMMARY | 2019-04-24 14:46 | XMS REPORT | Summary of Care ---
:1940 Author Organization [facility] Address [address] [address]- Encounter HQ Encntr_edel(FIN) [id number] Date(s): 09/22/18 - 10/21/18 [facility] [address] [facility], [address] [phone] [phone] Discharge Disposition: Home or Self Care Attending [...] Active Umbilical hernia(Confirmed) Active 1Data migrated from [employer] on 02/05/15.2Data migrated from [employer] on 02/05/15.3Data migrated from [employer] on 02/05/15. Allergies, Adverse Reactions, Alerts Substance Reaction Severity Status NKFA Active NKDA Active Medications No data available for this section Results No data available for this section Immunizations No data available for this section Procedures Procedure Date Related Diagnosis Body Site Status CABG - Coronary artery bypass graft1 Completed Cardiac catheterization2 Completed Carotid endarterectomy3 Completed Repair of diaphragmatic hiatal hernia4 Completed [id number] Grafts [id number] and left41 week ago Social History Social History Type Response Alcohol Past Smoking Status Former smoker; Exposure to Tobacco Smoke None; Cigarette Smoking Last 365 Days No; Reg Smoking Cessation Counseling No entered on: 05/05/18 Assessment and Plan No data available for this section
--- OUTSIDE RECORDS SUMMARY | 2019-04-24 14:46 | XMS REPORT | Summary of Care ---
:1940 Author Organization [facility] [place] [place] Address [address], [address] [place] [address] Encounter HQ Kezia_edel([facility]) [id number] Date(s): 05/05/18 - 05/05/18 [facility] [place] [address], [address] [place] [address] Discharge Disposition: Home or Self Care Attending Physician: Syed Barbosa MD Referring Physician: Anderson Hernandez MD Vital Signs Most recent to oldest [Reference Range]: 1 Height 177.8 cm (05/05/18 11:44 AM) Blood Pressure [90-140/60-90 mmHg] 118/74 mmHg (05/05/18 11:44 AM) Peripheral Pulse Rate [60-100 bpm] 76 bpm (05/05/18 11:44 AM) Weight 80 kg (05/05/18 11:44 AM) Body Mass Index 25.31 m2 (05/05/18 11:44 AM) Problem List Condition Effective Dates Status [...] Severity Status NKFA Active NKDA Active Medications amLODIPine 5 mg oral tablet 5 mg=1 tab, PO, Daily, # 90 tab, 1 Refill(s), Pharmacy: [id number], DUE FOR AN OFFICE VISIT. PLEASE CALL DR. FLETCHER'S OFFICE TO MAKE AN APT. Start Date: 12/02/17 Stop Date: 05/31/18 Status: Orderedatorvastatin 40 mg oral tablet 40 mg=1 tab, PO, Daily, # 90 tab, 1 Refill(s), Pharmacy: [id number] Start Date: 12/02/17 Stop Date: 05/31/18 Status: Orderedlisinopril 20 mg oral tablet 20 mg=1 tab, PO, Daily, # 90 tab, 1 Refill(s), Pharmacy: [facility] [id number], DUE FOR AN OFFICE VISIT. PLEASE CALL DR. COLVIN'S OFFICE TO MAKE AN APT. Start Date: 12/02/17 Stop Date: 11/03/18 Status: DeletedMetoprolol Succinate ER 100 mg oral tablet, extended release 100 mg=1 tab, PO, Daily, # 90 tab, 1 Refill(s), Pharmacy: [facility] [id number] Start Date: 12/02/17 Stop Date: 05/31/18 Status: Ordered Results No data available for this section Immunizations No data available for this section Procedures Procedure Date Related Diagnosis Body Site Status CABG - Coronary artery bypass graft1 Completed Cardiac catheterization2 Completed Carotid endarterectomy3 Completed Repair of diaphragmatic hiatal hernia4 Completed [id number] Grafts 97967Teban and left41 week ago Social History Social History Type Response Alcohol Past Smoking Status Former smoker; Exposure to Tobacco Smoke None; Cigarette Smoking Last 365 Days No; Reg Smoking Cessation Counseling No entered on: 11/03/18 Assessment and Plan No data available for this section
--- OUTSIDE RECORDS SUMMARY | 2019-04-24 14:46 | XMS REPORT | Summary of Care ---
:1940 Author Name PARI ANGLIN M.D. Address Unavailable Unavailable , Care Team Providers Name Role Phone LINNETTE Thibodeaux, PARI Unavailable Unavailable LINNETTE VELARDE PA, PARI Shukla Unavailable Unavailable Heydi Page MD Unavailable Unavailable Unavailable Unavailable Unavailable Functional Status Name Dates Details Functional status health issues are not documented Status: Name Dates Details Cognitive status health issues are not documented Status: Problems Name Dates Details Type 2 diabetes mellitus with hyperglycemia (250.00, E11.65) Status: Active Hyperlipidemia (272.4, E78.5) Status: Active Essential hypertension (401.9, I10) Status: Active Bursitis of hip (726.5, M70.70) Status: Active Sacro ilial pain (724.6, M53.3) Status: Active Contusion of right hip, initial encounter (924.01, S70.01XA) Status: Active Primary osteoarthritis of both hips (715.15, M16.0) Status: Active Strain of muscle, fascia and tendon of pelvis, initial encounter (848.5, S39.013A) Status: Active Inguinal hernia, right (550.90, K40.90) Status: Active Hip pain (719.45, M25.559) Status: Active Acute pain of left shoulder (719.41, M25.512) Status: Active Rotator cuff syndrome of left shoulder (726.10, M75.102) Status: Active DJD (degenerative joint disease), lumbar (721.3, M47.816) Status: Active Lumbar pain (724.2, M54.5) Status: Active Medications Name Dates Details Metoprolol Tartrate 25 MG Oral Tablet Refills: 0 Active GlipiZIDE 10 MG Oral Tablet Refills: 0 Active PriLOSEC 10 MG CPDR Refills: 0 Active Atorvastatin Calcium 40 MG Oral Tablet Refills: 0 Active Travatan Z 0.004 % Ophthalmic Solution Refills: 0 Active Deedee Aspirin TABS Refills: 0 Active MetFORMIN HCl - 1000 MG Oral Tablet Refills: 0 Active Lisinopril 40 MG Oral Tablet Refills: 0 Active AmLODIPine Besylate 5 MG Oral Tablet Refills: 0 Active Tamsulosin HCl CAPS Refills: 0 Active Ciprofloxacin 500 MG TABS Refills: 0 Active Acetaminophen-Codeine #3 300-30 MG Oral Tablet Refills: 0 Active Ondansetron 4 MG Oral Tablet Disintegrating Refills: 0 Active Januvia 50 MG Oral Tablet Refills: 0 Active Eliquis 2.5 MG Oral Tablet Refills: 0 Active Allergies and Adverse Reactions Name Dates Details No Known Allergies (Allergy) Status: Active Past Medical History Name Dates Details History of CAD (coronary artery disease) (414.00, I25.10) Status: Resolved History of cardiac disorder (V12.50, Z86.79) Status: Resolved History of hypertension (V12.59, Z86.79) Status: Resolved History of Knee pain, left (719.46, M25.562) Status: Resolved History of Medial meniscus tear (836.0, S83.249A) Status: Resolved History of Osteoarthritis of knee (715.36, M17.10) Status: Resolved Procedures Procedure Dates Details Pre Op Promise 29 Survey Date: 10-Sep-2018 History of Heart Surgery Completed History of Angioplasty Internal Carotid Artery Completed Immunization Name Dates Details Immunizations not documented Family History Name Dates Details No pertinent family history (V49.89, Z78.9) Comments: Unknown Status: Active Name Dates Details No pertinent family history (V49.89, Z78.9) Status: Active Name Dates Details No pertinent family history (V49.89, Z78.9) Status: Active Name Dates Details No pertinent family history (V49.89, Z78.9) Status: Active Social History Name Dates Details - Status: Name Dates Details Never smoker Vital Signs Date Test Result Details [id number] Height 71 in Status: Weight 198 lb Status: Body Mass Index Calculated 27.62 kg/m2 Status: Body Surface Area Calculated 2.1 m2 Status: Results Date Description Value Details 17-Sep-20187:43 [U] XRAY HIPS BILATERAL MIN 2 VWS AND AP PELVIS [id number] XR HIPS BILATERAL MIN 2 VWS AND AP Images acquired, not reported on this PELVIS accession number. [id number] [U] XRAY SPINE LUMBOSACRAL MIN 4 VWS 75558 XR SPINE LUMBOSACRAL MIN 4 VWS Images acquired, not reported on this accession number. Plan of Care Name Dates Details Planned Observations Planned Goals not documented Planned Encounters Physical Therapy Referral Appointment; HEYDI PAGE M.D. On: 22-Sep-2018 9:00 Interventions Provided Labs/Procedures/Imaging[U] XRAY HIPS BILATERAL MIN 2 VWS AND AP PELVIS [id number]; Done: 17 Sep 2018[U] XRAY SPINE LUMBOSACRAL MIN 4 VWS 20276; Done: 17 Sep 2018PlanPatient is here for evaluation of bilateral hips. While he does have mild to moderate arthritis of bilateral hips, he has severe degenerative change of his back. Given his location of pain and occasional radiculopathy, I do believe that much of his pain is coming from his back. We provided him a referral for physical therapy and also referral to pain management for consideration of epidural steroid injections. He will plan to follow-up with us on an as-needed basis. Instructions Name Dates Details Instructions not documented Encounters Appointment; PARI ANGLIN M.D. On: 30-Apr-2017 11:30 Encounter Diagnosis: Problem not documented Appointment; PARI ANGLIN M.D. On: 17-Sep-2018 9:30 Encounter Diagnosis: Problem not documented
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
== END 2019-04-24 16:22 | disposition home or self-care (01) ==
LOC: ER 14:38
DX: R51 Headache (principal); V49.50XA Passenger injured in collision with unspecified motor vehicles in traffic accident, initial encounter; I10 Essential (primary) hypertension
CPT/HCPCS: 70450; 72125; 99284

== ENCOUNTER 2020-05-25 18:37 | Inpatient (IN) | payer MEDICARE, OTHER ==
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
--- OUTSIDE RECORDS SUMMARY | 2020-05-25 18:40 | XMS REPORT | Summary of Care ---
:1940 Author Organization [facility] Address [address], [place] [address]- Encounter HQ Katharina(BRUCE) [id number] Date(s): 02/24/20 - 02/24/20 [facility] [address], [place] [address]- [place] Discharge Disposition: Home or Self Care Attending Physician: Gabrielle Menezes MD Referring Physician: Luba Ruiz MD Vital Signs Most recent to oldest [Reference Range]: 1 Height 182.88 cm (02/24/20 9:38 AM) Blood Pressure [90-140/60-90 mmHg] 120/75 mmHg (02/24/20 9:38 AM) Peripheral Pulse Rate [60-100 bpm] 85 bpm (02/24/20 9:38 AM) Weight 90.455 kg (02/24/20 9:38 AM) Body Mass Index 27.05 m2 (02/24/20 9:38 AM) Problem List Condition Effective Dates Status [...] Centricity on 02/05/15. Allergies, Adverse Reactions, Alerts No Known Medication Allergies Substance Reaction Severity Status NKFA Active Medications No Known Medications Results No data available for this section Immunizations No data available for this section Procedures Procedure Date Related Diagnosis Body Site Status CABG - Coronary artery bypass graft1 Completed Cardiac catheterization2 Com pleted Carotid endarterectomy3 Comp leted Repair of diaphragmatic hiatal hernia4 Completed [id number] Grafts [id number] and left41 week ago Social History Social History Type Response Alcohol Past Smoking Status Former smoker; Exposure to T obacco Smoke None; Cigarette Smoking Last 365 Days No; Reg Smoking Cessation Counseling No entered on: 02/24/20 Assessment and Plan No data available for this section
--- OUTSIDE RECORDS SUMMARY | 2020-05-25 18:40 | XMS REPORT | Continuity of Care Document ---
:1940 Author Organization [facility] Information [place] Care Team Providers Name Role Phone [facility] Information Exchange Unavailable Un available Problems Problem Status Onset Classification Date Comments Sourc e Date Reported DJD LUMBAR PAIN Active 10/22/19 Ryan rial 19 [place] AMS, UTI, KIDNEY Active 01/01/20 INJURY 18 [facility] INJURY OF URETER Active 01/01/[address] [id number] Active 12/04/19 BILATERAL UMBILICAL 18 [place] Chest pain (finding) Active 10/30/19 Problem 02/27/2020 Data Medical 13 migrated Group, from [facility] on 02/05/15. [facility] [place] Carotid Active Problem 02/27/2020 Medica l atherosclerosis Grou p, (disorder) [facility] [place] Coronary Active Problem 02/27/2020 Data Medica l arteriosclerosis migrated Josse up, (disorder) from [facility] on 02/05/15. [facility] [place] Diabetes mellitus Active Problem 02/27/2020 M H Medical (disorder) Group,[facility] [place] Hyperlipidemia Active Problem 02/27/2020 M edical (disorder) Group,[facility] [place] Hypertensive Active Problem 02/27/2020 Data Med ical disorder, systemic migrated G roup, arterial (disorder) from [facility] on 02/05/15. 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 [place] Umbilical hernia Active Problem 02/27/2020 Medical (disorder) Group,[facility] [place]wasi Unspecified injury 01/05/2018 MH of ureter, initial M [facility] ALTERED MENTAL Active MH STATUS, UNSPECIFIED [facility] UNSPECIFIED INJURY Active M H OF URETER, INITIAL M [facility] AMS/ UTI/ DIRECT Active MH ADMIT [facility] Medications Medication Details Route Status Patient Ordering Order Source Instructions Provider Date lisinopril 20 mg 20 mg = 1 tab, Active oral tablet PO, Daily, 0 2019 Medical Refill(s) Group Aspirin 81 MG 81 mg = 1 tab, Active Enteric Coated PO, Daily, # 90 2020 M edical Tablet tab, 3 Refill(s) Group NovoLog SUB-Q, Active TID-Before 2020 Medical Meals, 0 Group Refill(s) lisinopril 40 mg 40 mg = 1 tab, Active oral tablet PO, Daily, 0 2018 Medical Refill(s) Group apixaban 5 MG 5 mg = 1 tab, Active Oral Tablet PO, BID, # 180 2019 Medic al [Eliquis] tab, 3 Group Refill(s), Pharmacy: [facility] [id number] lisinopril 5 mg 5 mg = 1 tab, Active oral tablet PO, BID, 0 2018 Medical Refill(s) Group sitagliptin 50 50 mg = 1 tab, Active 11/03/ MG Oral Tablet PO, Daily, 0 2019 [place]i [place] [Januvia] Refill(s) Group Ciprofloxacin 250 mg = 1 tab, Active 250 MG Oral PO, Q12H, X 7 2018 Medica l Tablet [Cipro] day, # 14 tab, 0 Group Refill(s), Pharmacy: [facility] [id number] Cricket Notes: Same as: Inactive Eliquis 2017 [facility] Acetaminophen 1 tab, PO, Q6H, Active 300 MG / Codeine PRN Pain, X 5 2018 [facility] Phosphate 30 MG day, # 20 tab, 0 [facility] Oral Tablet Refill(s) [Tylenol with Codeine #3] Hydrocortisone 5 1 appl, TOP, Active MG/ML Topical BID, PRN Rash, 0 2018 [facility] Cream Refill(s) [facility] Cephalexin 500 500 mg = 1 cap, Active H MG Oral Capsule PO, TID, X 7 2018 Mem orial [Keflex] day, # 21 cap, 0 [facility] Refill(s) Hydrocortisone 5 1 appl, Route: Inactive MG/ML Topical TOP, BID, Drug 2018 Mem o[facility] Cream form: CRM, PRN [facility] Rash, Start date: 01/02/18 10:55:00 CDT, Duration: 30 day, Stop date: 02/01/18 10:54:00 CDT Brimonidine 1 drp, Route: Inactive tartrate 2 MG/ML BOTH EYES, Q12H, 2017 [facility] / Timolol 5 Drug form: SOLN, Cit y MG/ML Ophthalmic Start date: Solution 01/01/18 [Combigan] 21:00:00 CDT, Duration: 30 day, Stop date: 01/31/18 9:00:00 CDT timolol Notes: (Same As: No Longer ophthalmic Timoptic, Active 2017 [facility] Betimol) [facility] metoprolol Notes: (Same as: No Longer tartrate Lopressor) Active 2017 [facility] brimonidine Notes: (Same As: No Longer H ophthalmic Alphagan) Active 2017 [facility] latanoprost Notes: Keep No Longer ophthalmic refrigerated. Active 2017 [facility] (Same City as:Xalatan) Opened bottle may be stored at room temperature for 6 weeks Magnesium Notes: WASTE: Inactive Sulfate F/P - Sink; E - 2018 [facility] Bin travoprost 0.04 1 drp, Route: Inactive H MG/ML Ophthalmic BOTH EYES, Drug 2018 [facility] Solution Form: SOLN, Cecilio [Travatan] Dosing Weight 93.295, kg, QPM, Start date: 01/01/18 17:00:00 CDT, Duration: 30 day, Stop date: 01/30/18 17:00:00 CDT Protonix Notes: Tablet No Longer should not be Active 2017 [facility] chewed or [facility] crushed. Docusate Notes: (Same as: No Longer Colace) (Do Not Active 2017 [facility] Crush) [facility] albumin human Notes: LOT#: Inactive 25% intravenous 2017 [facility] mor[facility] solution Mfg: City ____ WASTE: F/P - Red; E -Red (Same as: Albuminar) "blood product derivative" NS (Bolus) IV 1,000 mL, 1,000 Inactive ml/hr, Infuse 2017 [facility] Over: 1 hr, [facility] Route: IV, 1,000, Drug form: INJ, ONCE, Priority: STAT, Dosing Weight 93.295 kg, Start date: 01/01/18 5:48:00 CDT, Stop date: 01/01/18 5:48:00 CDT Ceftriaxone Notes: (Same As: No Longer Rocephin). Use [facility] 2017 [facility] with 100 mL NS [facility] and infuse over 30 min MEDICATION WASTE Product Size: 1000 mg Product Wasted: ___ mg Insulin Lispro Notes: (Same as: No Longer Humalog ) Roll Active 2017 [facility] in palms of [facility] hands gently; Do not shake `vigorously. "Single Patient Use Only " WASTE: F/P - Black; E - Municipal Trash Bin Stable for 28 days at room temperature. Expires in days from Da te Dextrose 50% 12.5 gm, 25 mL, No Longer Syringe Route: IVP, Drug Active 2017 [facility] Form: INJ, City Dosing Weight 93.295, kg, PRN, PRN Blood Glucose Results, Start date: 12/31/17 23:08:00 CDT, Duration: 30 day, Stop date: 01/30/18 23:07:00 CDT Glucagon 1 mg, Route: IM, No Longer Drug form: Active [address] [place] [address] PDR/INJ, PRN, [facility] Dosing Weight 93.295, kg, PRN Blood Glucose Results, Start date: 12/31/17 23:08:00 CDT, Duration: 30 day, Stop date: 01/30/18 23:07:00 CDT Saline Flush Notes: (Same as: No Longer 0.9% BD Posiflush) Active [address] [place] [address] Ondansetron Notes: (Same as: No Longer H Zofran ODT) Active 2017 [facility] Morphine Notes: (Same No Longer as:MORPhine Active 2017 [facility] Sulfate) [facility] Acetaminophen Notes: Do not No Longer exceed 4 gm/day. Active 2017 [facility] (Same as: [facility] Tylenol) Acetaminophen Notes: (Same as: No Longer 325 MG / [place] 325/5) Do [facility] not exceed [facility] Bitartrate 5 MG 4gm/day of Oral Tablet acetaminophen. Sodium Chloride 1,000 mL, Rate: No Longer 0.9% IV 1,000 mL 75 ml/hr, Infuse Active [address] [place] [address] over: 13.3 hr, [facility] Route: IV, Dosing Weight 93.295 kg, Total Volume: 1,000, Start date: 12/31/17 23:07:00 CDT, Duration: 30 day, Stop date: 01/30/18 23:06:00 CDT, 2.19, m2 glycopyrrolate Route: IV, Drug Inactive (ANES) form: INJ, ONCE, 2017 [facility] Stop date: [facility] 12/23/17 16:01:00 CDT neostigmine Route: IV, Drug Inactive (ANES) form: INJ, ONCE, 2017 [facility] Stop date: [facility] 12/23/17 16:01:00 CDT ondansetron Route: IV, Drug Inactive (ANES) form: INJ, ONCE, 2017 [facility] Stop date: [facility] 12/23/17 15:52:00 CDT Hydralazine 10 mg, Route: Inactive IVP, Q20Min, 2018 [facility] Dosing Weight [facility] 84.091, kg, PRN Elevated BP, Start date: 12/23/17 14:45:00 CDT, Duration: 2 doses or times, Stop date: Limited # of times Ondansetron 4 mg, Route: Inactive IVP, ONCE, 2018 [facility] Dosing Weight [facility] 84.091, kg, PRN Nausea & Vomiting, Start date: 12/23/17 14:45:00 CDT Morphine 2 mg, Route: Inactive IVP, Q5Min, 2018 [facility] Dosing Weight [facility] 84.091, kg, PRN Pain Score 4-6, Start date: 12/23/17 14:45:00 CDT, Duration: 5 doses or times, Stop date: Limited # of times Naloxone 0.4 mg, Route: Inactive IVP, Q2MIN, 2018 [facility] Dosing Weight [facility] 84.091, kg, PRN Narcotic Reversal, Start date: 12/23/17 14:45:00 CDT, Duration: 8 doses or times, Stop date: Limited # of times Flumazenil 0.2 mg, Route: Inactive IVP, PRN, Dosing 2018 [facility] l Weight 84.091, City kg, PRN Benzodiazepine Reversal, Initial dose, Start date: 12/23/17 14:45:00 CDT, Duration: 30 day, Stop date: 01/22/18 14:44:00 CDT Hydromorphone 0.5 mg, Route: Inactive IVP, Q5Min, 2018 [facility] Dosing Weight [facility] 84.091, kg, PRN Pain Score 7-10, Start date: 12/23/17 14:45:00 CDT, Duration: 4 doses or times, Stop date: Limited # of times rocuronium Route: IV, Drug Inactive (ANES) form: INJ, ONCE, 2017 [facility] Stop date: [facility] 12/23/17 14:22:00 CDT fentaNYL (ANES) Route: IV, Drug Inactive form: INJ, ONCE, 2017 [facility] Stop date: [facility] 12/23/17 14:17:00 CDT lidocaine (ANES) Route: IV, Drug Inactive form: INJ, ONCE, 2017 [facility] Stop date: [facility] 12/23/17 14:17:00 CDT propofol (ANES) Route: IV, Drug Inactive form: INJ, ONCE, 2017 [facility] Stop date: [facility] 12/23/17 14:17:00 CDT ePHEDrine (ANES) Route: IV, Drug Inactive form: INJ, ONCE, 2017 [facility] Stop date: [facility] 12/23/17 14:02:00 CDT ceFAZolin (ANES) Route: IV, Drug Inactive form: INJ, ONCE, 2017 [facility] Stop date: [facility] 12/23/17 14:02:00 CDT acetaminophen Route: IV, Drug Inactive H (ANES) 10 mg form: INJ, Start 2017 Me morial date: 12/23/17 [facility] 13:24:00 CDT, Stop date: 12/23/17 14:24:00 CDT Lactated Ringers Route: IV, Total Inactive 12/23 Injection IV Volume: 1,000, 2017 Ryan rial (ANES) 1000 mL Start date: [facility] 12/23/17 13:12:00 CDT, Stop date: 12/23/17 14:12:00 CDT Lidocaine 0.5 mL, Route: Inactive Hydrochloride 10 INTRADERM, 2017 Ryan rial MG/ML Injectable Dosing Weight C ity Solution 84.091, kg, ONCALL, Start date: 12/23/17 11:00:00 CDT, Duration: 1 doses or times Sodium Chloride 1,000 mL, Rate: Inactive 0.9% IV 1000 mL 25 ml/hr, Infuse 2018 [facility] over: 40 hr, [facility] Route: IV, Dosing Weight 84.091 kg, Total Volume: 1,000, Start date: 12/23/17 10:33:00 CDT, Duration: 30 day, Stop date: 01/22/18 10:32:00 CDT, 2.06, m2 Ancef + sterile Notes: (Same As: Inactive water 20 mL Ancef, Kefzol) 2017 [facility] ial MEDICATION City WASTE Product Size: 1000 mg Product Wasted: ___ mg amLODIPine 5 mg 5 mg = 1 tab, Active oral tablet PO, Daily, # 90 2017 [facility]i [place] tab, 1 Group Refill(s), Pharmacy: [facility] [id number], DUE FOR AN OFFICE VISIT. PLEASE CALL DR. FLETCHER'S OFFICE TO MAKE AN APT. lisinopril 20 mg 20 mg = 1 tab, No Longer oral tablet PO, Daily, # 90 Active 2017 [facility]i [place] tab, 1 Group Refill(s), Pharmacy: [facility] [id number], DUE FOR AN OFFICE VISIT. PLEASE CALL DR. COLVIN'S OFFICE TO MAKE AN APT. Metoprolol 100 mg = 1 tab, Active Succinate ER 100 PO, Daily, # 90 2017 Medical mg oral tablet, tab, 1 Group extended release Refill(s), [facility] [id number] atorvastatin 40 40 mg = 1 tab, Active 12/02/ M H mg oral tablet PO, Daily, # 90 2018 M edical tab, 1 Group Refill(s), Pharmacy: [facility] [id number] dapagliflozin 5 mg = 1 tab, Active propanediol 5 MG PO, Daily, 0 2018 Va dical Oral Tablet Refill(s) Group [Farxiga] atorvastatin 40 40 mg = 1 tab, No Longer mg oral tablet PO, Daily, 0 Active 2017 [facility] [place] Refill(s) Group apixaban 5 MG 5 mg = 1 tab, Active Oral Tablet PO, BID, # 180 2016 Medic al [Eliquis] tab, 1 Group Refill(s), [facility] [id number] Allergies, Adverse Reactions, Alerts Substance Category Reaction Severity Reaction Status Date Comments S ource type Reported NKFA Assertion Food Active allergy Medical Group No Known Assertion Drug Medication allergy Medic al Allergies Group Immunizations No Data Provided for This Section Results Order Name Results Value Reference Date Interpretation Comments Ev rce Range CHEM PANEL Magnesium Lvl 2.2 1.8 - 2.4 01/02 [facility] ELECTROLYTE AGAP 12.7 10.0 - 01/02 S 20.0 [facility] ELECTROLYTE CO2 28 24 - 32 01/02 [facility] ELECTROLYTE Calcium Lvl 7.7 8.5 - 10.5 01/02 [facility] ELECTROLYTE BUN 12 7 - 22 01/02 [facility] ELECTROLYTE Sodium Lvl 143 135 - 145 01/02 [facility] ELECTROLYTE Chloride Lvl 106 95 - 109 01/02 [facility] ELECTROLYTE Potassium Lvl 3.7 3.5 - 5.1 01/02 [facility] ELECTROLYTE eGFR 85 01/02 [facility] Comment: The [facility] eGFR is City calculated using the CKD-EPI [...] the estimated BMI. ELECTROLYTE Glucose Lvl 161 70 - 99 01/02 [facility] ELECTROLYTE Creatinine 0.81 0.50 - 01/02 S Lvl 1.40 [facility] HEMATOLOGY MPV 8.2 7.4 - 10.4 01/02 [facility] HEMATOLOGY Platelet 247 133 - 450 01/02 [facility] HEMATOLOGY RDW 14.0 11.5 - 01/02 14.5 [facility] HEMATOLOGY WBC 9.7 3.7 - 10.4 01/02 [facility] HEMATOLOGY RBC 3.93 4.70 - 01/02 MH 6.10 [facility] HEMATOLOGY Hgb 12.0 14.0 - 01/02 MH 18.0 [facility] HEMATOLOGY Hct 35.4 42.0 - 01/02 MH 54.0 [facility] HEMATOLOGY MCV 90.1 80.0 - 01/02 MH 94.0 /2017 [facility] HEMATOLOGY MCH 30.6 27.0 - 01/02 MH 31.0 [facility] HEMATOLOGY MCHC 34.0 32.0 - 01/02 MH 36.0 [facility] HEMATOLOGY Basophils # 0.1 0.0 - 0.2 01/02 [facility] HEMATOLOGY Segs 66.9 45.0 - 01/02 MH 75.0 [facility] HEMATOLOGY Eosinophils 4.7 0.0 - 4.0 01/02 [facility] HEMATOLOGY Basophils 1.1 0.0 - 1.0 01/02 [facility] HEMATOLOGY Lymphocytes 19.1 20.0 - 01/02 MH 40.0 [facility] HEMATOLOGY Monocytes 8.2 2.0 - 12.0 01/02 [facility] HEMATOLOGY Segs-Bands # 6.5 1.5 - 8.1 01/02 [facility] HEMATOLOGY Eosinophils # 0.5 0.0 - 0.5 01/02 [facility] HEMATOLOGY Monocytes # 0.8 0.0 - 0.8 01/02 [facility] HEMATOLOGY Lymphocytes # 1.9 1.0 - 5.5 01/02 [facility] CARDIAC BNP 221 <=100 01/01 [facility] pg/mL /2017 [facility] CHEM PANEL Magnesium Lvl 1.4 1.8 - 2.4 01/01 [facility] ELECTROLYTE AGAP 10.5 10.0 - 01/01 MH S 20.0 [facility] ELECTROLYTE CO2 33 24 - 32 01/01 [facility] ELECTROLYTE Calcium Lvl 8.2 8.5 - 10.5 01/01 [facility] ELECTROLYTE Potassium Lvl 3.5 3.5 - 5.1 01/01 [facility] ELECTROLYTE Sodium Lvl 144 135 - 145 01/01 [facility] ELECTROLYTE Chloride Lvl 104 95 - 109 01/01 [facility] ELECTROLYTE BUN 18 7 - 22 01/01 [facility] ELECTROLYTE Glucose Lvl 107 70 - 99 01/01 [facility] ELECTROLYTE eGFR 80 01/01 [facility] Comment: The [facility] eGFR is City calculated using the CKD-EPI [...] by the estimated BMI. ELECTROLYTE Creatinine 0.92 0.50 - 01/01 MH S Lvl 1.40 [facility] HEMATOLOGY Segs-Bands # 6.9 1.5 - 8.1 01/01 [facility] Lymphocytes # 1.9 1.0 - 5.5 01/01 [facility] HEMATOLOGY Monocytes # 0.8 0.0 - 0.8 01/01 [facility] HEMATOLOGY Basophils # 0.1 0.0 - 0.2 01/01 [facility] HEMATOLOGY Eosinophils # 0.6 0.0 - 0.5 01/01 [facility] HEMATOLOGY Segs 66.9 45.0 - 01/01 MH 75.0 [facility] HEMATOLOGY Basophils 0.9 0.0 - 1.0 01/01 [facility] HEMATOLOGY Eosinophils 5.6 0.0 - 4.0 01/01 [facility] HEMATOLOGY Monocytes 7.8 2.0 - 12.0 01/01 [facility] HEMATOLOGY Lymphocytes 18.8 20.0 - 01/01 MH 40.0 [facility] HEMATOLOGY RDW 14.3 11.5 - 01/01 MH 14.5 [facility] HEMATOLOGY Platelet 271 133 - 450 01/01 [facility] HEMATOLOGY MPV 8.2 7.4 - 10.4 01/01 [facility] HEMATOLOGY WBC 10.3 3.7 - 10.4 01/01 [facility] MCHC 33.9 32.0 - 01/01 MH 36.0 [facility] HEMATOLOGY RBC 4.35 4.70 - 01/01 MH 6.10 [facility] HEMATOLOGY Hgb 13.3 14.0 - 01/01 18.0 [facility] HEMATOLOGY Hct 39.3 42.0 - 01/01 MH 54.0 [facility] HEMATOLOGY MCV 90.5 80.0 - 01/01 94.0 [facility] HEMATOLOGY MCH 30.6 27.0 - 01/01 31.0 [facility] URINE AND UA Ketones Negative 01/01 STOOL [facility] URINE AND UA Glucose 150 01/01 STOOL [facility] URINE AND UA Sq Epi None Seen 01/01 STOOL [facility] URINE AND UA Bacteria Few /HPF None Seen 01/01 STOOL /HPF /2017 [facility] URINE AND UA Mucus Few /LPF None Seen 01/01 STOOL /LPF [facility] URINE AND UA RBC 85 0 - 2 01/01 STOOL [facility] URINE AND UA Blood Moderate Negative 01/01 STOOL *ABN* /2017 [facility] (12/31/17 11:41 PM) [facility] URINE AND UA 4.0 0.1 - 1.0 01/01 STOOL Urobilinogen /2017 [facility] URINE AND UA pH 7.0 5.0 - 8.0 01/01 STOOL /2017 [facility] URINE AND UA Leuk Est Moderate Negative 01/01 STOOL *ABN* /2017 [facility] (12/31/17 11:41 PM) [facility] URINE AND UA WBC 72 0 - 5 01/01 STOOL /2017 [facility] URINE AND UA Bili Negative Negative 01/01 STOOL *NA* /2017 [facility] (12/31/17 11:41 PM) [facility] URINE AND UA Nitrite Negative Negative 01/01 [facility]OL (12/31/17 11:41 PM) /2017 [facility] [place] URINE AND UA Turbidity Slight Clear 01/01 STOOL *ABN* /2017 [facility] (12/31/17 11:41 PM) [facility] URINE AND UA Spec Grav 1.018 <=1.030 01/01 STOOL [facility] URINE AND UA Color Dark Yellow Yellow 01/01 STOOL *NA* /2017 [facility] (12/31/17 11:41 PM) [facility] URINE AND UA Protein >=300 Negative 01/01 STOOL mg/dL mg/dL [facility] ELECTROLYTE Potassium Lvl 4.3 3.5 - 5.1 12/18 S [facility] ELECTROLYTE Chloride Lvl 109 95 - 109 12/18 [facility] ELECTROLYTE CO2 28 24 - 32 12/18 [facility] ELECTROLYTE Calcium Lvl 9.8 8.5 - 10.5 12/18 [facility] ELECTROLYTE Sodium Lvl 145 135 - 145 12/18 [facility] ELECTROLYTE Glucose Lvl 144 70 - 99 12/18 [facility] ELECTROLYTE BUN 17 7 - 22 12/18 [facility] ELECTROLYTE eGFR 63 12/18 Result Comment: The [facility] eGFR is City calculated using the CKD-EPI [...] by the estimated BMI. ELECTROLYTE Creatinine 1.12 0.50 - 12/18 S Lvl 1.40 /2017 [facility] ELECTROLYTE AGAP 12.3 10.0 - 12/18 S 20.0 [facility] HEMATOLOGY Hct 43.7 42.0 - 12/18 54.0 [facility] HEMATOLOGY Hgb 14.7 14.0 - 12/18 18.0 [facility] Pathology Reports No Data Provided for This Section Diagnostic Reports Report Value Date Source Chest 1view DX EXAM: Chest 1view DX 01/01/[address] 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 There is mild interstitial edema and obscuration of the left lung base possibly related to a small effusion and/or atelectasis. Consultation Notes No Data Provided for This Section Discharge Summaries No Data Provided for This Section History and Physicals No Data Provided for This Section Vital Signs Vital Sign Value Date Comments Source Systolic (mm Hg) 120 02/24/2020 [facility] Diastolic (mm Hg) 75 02/24/2020 [facility] Heart Rate 85 02/24/2020 [facility] p Height 182.88 cm 02/24/2020 [facility] p Weight 90.455 02/24/2020 [facility] Gr[facility] p BMI Calculated 27.05 02/24/2020 [facility] Systolic (mm Hg) 152 11/02/2019 [facility] Group Diastolic (mm Hg) 91 11/02/2019 [facility] Group Heart Rate 55 11/02/2019 [facility] Gr[facility] p Height 180.34 cm 11/02/2019 [facility] p Weight 81.818 11/02/2019 [facility] p BMI Calculated 25.16 11/02/2019 [facility] Systolic (mm Hg) 155 05/04/2019 [facility] Group Diastolic (mm Hg) 80 05/04/2019 [facility] Group Heart Rate 75 05/04/2019 [facility] p Height 180.34 cm 05/04/2019 [facility] p Weight 86.364 05/04/2019 [facility] Gr[facility] p BMI Calculated 26.56 05/04/2019 [facility] Gr oup BMI Calculated 25.59 11/03/2018 [facility] oup Weight 80.909 11/03/2018 [facility] Gr[facility] p Height 177.8 cm 11/03/2018 [facility] p Systolic (mm Hg) 106 11/03/2018 [facility] Group Diastolic (mm Hg) 86 11/03/2018 [facility] Heart Rate 56 11/03/2018 [facility] p Heart Rate 76 05/05/2018 [facility] p Systolic (mm Hg) 118 05/05/2018 [facility] Group Diastolic (mm Hg) 74 05/05/2018 [facility] Weight 80 05/05/2018 [facility] Gr[facility] p BMI Calculated 25.31 05/05/2018 [facility] Gr oup Height 177.8 cm 05/05/2018 [facility] Grou p BMI Calculated 25.14 02/24/2018 [facility] Gr oup Weight 84.091 02/24/2018 [facility] Gr[facility] p Height 182.88 cm 02/24/2018 [facility] p Systolic (mm Hg) 115 02/24/2018 [facility] Group Diastolic (mm Hg) 74 02/24/2018 [facility] Group Heart Rate 80 02/24/2018 Medical Grou p Temperature Oral (F) 97.8 F 01/02/[address] [facility] Systolic (mm Hg) 155 01/02/[address] [facility] Diastolic (mm Hg) 90 01/02/2018 [facility] Respitory Rate 18 01/02/2018 [facility] Heart Rate 65 01/02/2018 [facility] Resp[facility] 16 01/02/2018 [facility] Temperature Oral (F) 98.2 F 01/02/[address] [facility] Heart Rate 60 01/02/2018 [facility] Systolic (mm Hg) 149 01/02/2018 [facility] [place] Diastolic (mm Hg) 72 01/02/2018 [facility] Heart Rate 65 01/02/2018 [facility] y Respitory Rate 16 01/02/2018 [facility] Systolic (mm Hg) 136 01/02/[address] [facility] Diastolic (mm Hg) 61 01/02/2018 [facility] Temperature Oral (F) 98.3 F 01/02/[address] [facility] BMI Calculated 27.89 01/01/2018 [facility] Weight 93.295 01/01/2018 [facility] Height 182.88 cm 01/01[facility]2018 [facility] Systolic (mm Hg) 142 12/23/2017 [facility] [place] Diastolic (mm Hg) 69 12/23/2017 [facility] Respitory Rate 19 12/23/2017 [facility] Systolic (mm Hg) 143 12/23/2017 [facility] [place] Diastolic (mm Hg) 65 12/23/2017 [facility] Respitory Rate 20 12/23/2017 [facility] Systolic (mm Hg) 143 12/23/2017 [facility] [place] Diastolic (mm Hg) 62 12/23/2017 [facility] Respitory Rate 20 12/23/2017 [facility] Heart Rate 74 12/23/2017 [facility] BMI Calculated 25.86 12/18/2017 [facility] Weight 84.091 12/18/2017 [facility] Height 180.34 cm 12/18/2017 [facility] BMI Calculated 27.46 11/28/2017 [facility] Heart Rate 70 11/28/2017 [facility] Systolic (mm Hg) 117 11/28/2017 [facility] Diastolic (mm Hg) 71 11/28/2017 [facility] Height 177.8 cm 11/28/2017 [facility] Weight 86.818 11/28/2017 [facility] Encounters Location Location Encounter Encounter Reason Attending ADM DC Stat us Source Details Type Number For Provider Date Date Visit Outpatient [id number] [facility] 07/05 [facility] [place] Outpatient [id number] NUCLEAR 08/13 [facility] SCAN VISIT /2015 Brennen n Outpatient [id number] [facility] 08/20 [facility] SCAN VISIT [facility]2015 Brennen n Outpatient [id number] [facility] 08/20 [facility] [place] Outpatient [id number] [facility] 12/05 [facility] [place] Outpatient [id number] [facility] 06/06 [facility] [place] Outpatient [id number] ECHO VISIT 06/20 [facility] [place] [facility] Phone [id number] 07/19 07/21 Cardiology Message /2016 Medic al [facility] Outpatient [id number] FRANCES 11/28 [facility] Outpatient [id number] Anderson 11/28 11/29 Cardiology David /2017 Medic al [facility] Day Surgery [id number] Fer Efren 12/23 12/23 [facility] Gomez /2017 [facility] Emergency [id number] Neri 01/01 01/01 [facility] /2017 Memori al [facility] Inpatient [id number] Latonya Latonya Pe 01/01 01/02 [facility] /2017 [facility] Phone [id number] 01/06 01/08 Urology Message /2017 Medical [facility] Outpatient [id number] ROBBI 01/16 [facility] Ambulatory [id number] Robbi 01/16 01/[address] [facility] /2017 Medica l [facility] Outpatient [id number] ROBBI 02/24 [facility] Outpatient [id number] Anderson 02/24 02/25 Urology David /2017 Medical [facility] Outside [id number] 03/19 03/21 Cardiology Medical /2017 Medic al [facility] Outpatient [id number] FRANCES 05/05 [facility] [id number] Anderson 05/05 05/06 Cardiology David /2017 Medic al [facility] OP Therapy [id number] Yakov 09/22 10/22 [facility] Patients [facility] Be [facility]la[facility] re S[facility] OP Therapy [id number] Yakov 10/22 11/21 [facility] Patients [facility] Outpatient [id number] FRANCES 11/03 [facility] [id number] Frances 11/03 11/04 Cardiology [place] /2018 [facility] Outpatient [id number] Frances 05/04 [facility] [id number] Frances 05/04 05/05 Cardiology [place] /2018 [facility] Outpatient [id number] Frances 11/02 [facility] Outpatient [id number] Frances 11/02 11/03 Cardiology [place] /2019 [facility] Outpatient [id number] Gabrielle 02/[address] [facility] Multi Outpatient [id number] Luba 02/23 02/24 Specialty Joseph /2019 Medical [facility] Outpatient [id number] [facility] 10/31 [facility] [place] Procedures Procedure Code Date Perfomer [place] [address] 02/24/2018 [facility]void[facility] Group residual urine and/or bladder capacity by ultrasound, non-imaging CABG - Coronary [id number] 1999 Medica l artery bypass Group, graft<sup>1</sup> [facility] Cardiac [id number] Open Grafts Medical catheterization<sup 2004 Group , >2</sup> [facility] Carotid [id number] Right and left Medical endarterectomy<sup> Group , 3</sup> [facility] DELORIS Villalpando Repair of [id number] 1 week ago Medical diaphragmatic Group, hiatal [facility] hernia<sup>4</sup> [facility], MR DELORIS Villalpando Assessment and Plan No Data Provided for This Section Plan of Care No Data Provided for This Section Social History Social History Date Source Social History TypeResponse 12/18/2017 [facility] Alcohol Past Smoking Status Former smoker; Exposure to Tobacco Smoke None; Cigarette Smoking Last 365 Days No; Reg Smoking Cessation Counseling No entered on: 02/24/20 Social History TypeResponse 12/18/[address] [facility] Alcohol Past Smoking Status Former smoker; Exposure to Tobacco Smoke None; Cigarette Smoking Last 365 Days No; Reg Smoking Cessation Counseling No entered on: 12/31/17 Social History TypeResponse 12/18/2017 [facility] DELORIS pozo Alcohol Past Smoking Status Former smoker; Exposure to Tobacco Smoke None; Cigarette Smoking Last 365 Days No; Reg Smoking Cessation Counseling No entered on: 11/03/18 Family History No Data Provided for This Section Advance Directives No Data Provided for This Section Functional Status No Data Provided for This Section
--- OUTSIDE RECORDS SUMMARY | 2020-05-25 18:42 | XMS REPORT | Continuity of Care Document ---
:1940 Author Organization [facility] t Address [address] [place] [address] Care Team Providers Name Role Phone Pcp Primary Care Physician Unavailable Carolina Menezes Attending Clinician Aden Barbosa Attending Clinician Lakesha Engel Attending Clinician LINNETTE Attending Clinician Unavailable BIANCA ARDON Attending Clinician Unavailable Lux Attending Clinician Luana Kamara Attending Clinician Tello Burns Attending Clinician Jadiel Gomez Attending Clinician Max Cruz III Attending Clinician BIANCA ARDON Admitting Clinician Unavailable Luana Kamara Admitting Clinician Problems Condition Condition Condition Status Onset Resolution Last Treating Co mments Source Name Details Category Date Date Treatment Clinician Date DJD LUMBAR Diagnosis Active 2018-10-22 Memoria PAIN 2-13 09:39:00 l DJD 08:38: [place] LUMBAR 00 PAIN Active 10/22/2018 [facility] Erosion of Erosion of Disease Active [facility] other other 05[facility]13 [facility] implanted implanted 00:[facility]: [facility] [place] mesh to mesh to 00 Center organ or organ or tissue, tissue, initial initial encounter encounter BPH BPH Disease Active [facility] (benign (benign 05-12 [facility] - prostatic prostatic 00:00: [facility] [place] hyperplasi hyperplasi 00 Ce nter a) a) Incomplete Incomplete Disease Active [facility] bladder bladder 05-11 [facility] - emptying emptying 00:00: Medica l 00 Center Prostate Prostate Disease [facility] cancer [facility] - 00[facility] Medical 00 Center Benign Benign Disease Active [facility] prostate prostate 05-11 [facility] - hyperplasi hyperplasi 00:00: Me dical a a 00 Center AMS, UTI, Diagnosis Active 2017-12-31 Memoria KIDNEY 4-24 22:28:00 l INJURY AMS, 00:00: Edmund UTI, 00 KIDNEY INJURY Active 12/31/2017 [facility] INJURY OF Diagnosis Active 2018-01-07 Memoria URETER 4-24 22:03:00 l INJURY 00:00: [place] OF URETER 00 Active 12/31/2017 [facility] [id number], Diagnosis Active 2018-04-17 Memoria [id number] 3-27 16:05:00 l BILATERAL 00:00: [place] UMBILICAL [id number], 00 OUMAR [id number] BILATERAL UMBILICAL OUMAR Active 12/03/2017 [facility] Chest pain Problem Active 2020-02-27 M emoria (finding) 2- 00:55:05 l Chest 00:00: Edmund pain 00 (finding) Active 10/30/2012 Problem 02/27/2020 Data migrated from [employer] Direct on 02/05/15. Medical Group,[facility] [place] History of History of Problem Resolve Univers cardiac cardiac HL7.CCDAR2 d ity of disorder disorder [place] [facility] History of History of Problem Resolve Univers hypertensi hypertensi HL7.CCDAR2 d ity of on on [place] [facility] History of History of Problem Resolve Univers Knee pain, Knee pain, HL7.CCDAR2 d ity of left left [place] [facility] History of History of Problem Resolve Univers Medial Medial HL7.CCDAR2 d ity of meniscus meniscus [place] tear tear Physici ans History of History of Problem Resolve Univers Osteoarthr Osteoarthr HL7.CCDAR2 d ity of itis of itis of [place] knee knee Physici ans 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 diabetes HL7.CCDAR2 it y of mellitus mellitus [place] with with Physici hyperglyce hyperglyce an s deandra deandra Essential Essential Problem Active Uni vers hypertensi hypertensi HL7.CCDAR2 ity of on on [place] [facility] Bursitis Bursitis Problem Active Unive rs of hip of hip HL7.CCDAR2 ity of [place] [facility] ans Sacro Sacro Problem Active Univers ilial pain ilial pain HL7.CCDAR2 ity of [place] [facility] ans Contusion Contusion Problem Active Uni vers of right of right HL7.CCDAR2 it y of hip, hip, [place] initial initial Physici encounter encounter ans Primary Primary Problem Active Univers osteoarthr osteoarthr HL7.CCDAR2 ity of itis of itis of [place] both hips both hips Phys ici ans Strain of Strain of Problem Active Uni vers muscle, muscle, HL7.CCDAR2 ity of fascia [place] tendon of tendon of Phys ici pelvis, pelvis, ans initial initial encounter encounter Inguinal Inguinal Problem Active Unive rs hernia, hernia, HL7.CCDAR2 ity of right right [place] [facility] Hip pain Hip pain Problem Active Unive rs HL7.CCDAR2 ity of [place] [facility]ici ans Acute pain Acute pain Problem Active U nivers of left of left HL7.CCDAR2 ity of shoulder shoulder [place] [facility] Rotator Rotator Problem Active Univers cuff cuff HL7.CCDAR2 ity of syndrome syndrome [place] of left of left Physici shoulder shoulder ans DJD DJD Problem Active Univers (degenerat (degenerat HL7.CCDAR2 ity of pet[place] joint [place] joint [place] disease), disease), Phys ici lumbar lumbar ans Lumbar Lumbar Problem Active Univers pain pain HL7.CCDAR2 ity of [place] [facility] ans Unspecifie Problem 2018-01-05 M emoria d injury 02:22:13 l of ureter, Brennen watt initial Unspecifie encounter d injury of ureter, initial encounter 01/05/2018 [facility] Carotid Problem Active 2020-02-27 Ryan melodie atheroscle 00:55:05 l rosis Carotid Edmund (disorder) atheroscle rosis (disorder) Active Problem 02/27/2020 Medical Group,[facility] [place] Coronary Problem Active 2020-02-27 Mem oria arterioscl 00:55:05 l erosis Coronary Brennen watt (disorder) arterioscl erosis (disorder) Active Problem 02/27/2020 Data migrated from [employer] on 02/05/15. Medical Group,[facility] [place] Diabetes Problem Active 2020-02-27 Mem oria mellitus 00:55:05 l (disorder) Diabetes He rmann mellitus (disorder) Active Problem 02/27/2020 Medical Group,[facility] [place] Hyperlipid Problem Active 2020-02-27 M emoria emia 00:55:05 l (disorder) Brennen n Hyperlipid emia (disorder) Active Problem 02/27/2020 Medical Group,[facility] [place] Hypertensi Problem Active 2020-02-27 M emoria ve 00:55:05 l disorder, [place] systemic Hypertensi arterial ve (disorder) disorder, systemic arterial (disorder) Active Problem 02/27/2020 Data migrated from [employer] on 02/05/15. Medical Group,[facility] [place] Mitral Problem Active 2020-02-27 Memor ia valve 00:55:05 l regurgitat Mitral Herm donavon ion valve (disorder) regurgitat ion (disorder) Active Problem 02/27/2020 Medical Group,[facility] [place] Nonspecifi Problem Active 2020-02-[address]-T 00:55:05 l abnormalit Brennen n y on Nonspecifi electrocar c ST-T diogram abnormalit (finding) y on electrocar diogram (finding) Active Problem 02/27/2020 Medical Group,[facility] [place] Persistent Problem Active 2020-02-27 M emoria atrial 00:55:05 l fibrillati Brennen n on Persistent (disorder) atrial fibrillati on (disorder) Active Problem 02/27/2020 Medical Group,[facility] [place] Tricuspid Problem Active 2020-02-27 Me moria valve 00:55:05 l regurgitat Brennen n ion Tricuspid (disorder) valve regurgitat ion (disorder) Active Problem 02/27/2020 Medical Group,[facility] [place] Femoral Problem Active 2020-02-27 Ryan melodie hernia 00:55:05 l (disorder) Femoral Her dickson hernia (disorder) Active Problem 02/27/2020 Medical Group,[facility] [place] Gastroesop Problem Active 2020-02-27 M jaycobria hageal 00:55:05 l reflux [place] disease Gastroesop with hageal esophagiti reflux s disease (disorder) with esophagiti s (disorder) Active Problem 02/27/2020 [facility] [place] Glaucoma Problem Active 2020-02-27 Mem oria (disorder) 00:55:05 l Glaucoma Brennen n (disorder) Active Problem 02/27/2020 Medical Group,[facility] [place] Umbilical Problem Active 2020-02-27 Me moria hernia 00:55:05 l (disorder) Brennen n Umbilical hernia (disorder) Active Problem 02/27/2020 Medical [facility] [place] ALTERED Diagnosis Active 2017-12-31 Me moria MENTAL 22:28:00 l STATUS, ALTERED Brennen n UNSPECIFIE MENTAL D STATUS, UNSPECIFIE D Active [facility] UNSPECIFIE Diagnosis Active 2018-01-07 Memoria D INJURY 22:03:00 l OF URETER, Brennen n INITIAL EN UNSPECIFIE D INJURY OF URETER, INITIAL EN Active [facility] AMS/ UTI/ Diagnosis Active 2018-01-01 Memoria DIRECT 19:23:00 l ADMIT AMS/ Edmund UTI/ DIRECT ADMIT Active [facility] Allergies, Adverse Reactions, Alerts Allergy Allergy Status Severity Reaction(s) Onset Inactive Treating Comm ents Source Name Type Date Date Clinician NKFA NKFA Active Memoria l [place] No Known No Known Active Memori a Medicati Medicati l on on Edmund Allergmargi Allergie s s Social History Social Habit Start Date Stop Date Quantity Comments Source Sex Assigned At [facility] Tobacco Comment 2018-04-30 2018-04-30 quit 30 yrs ago [facility] - 00:00:00 00:00:00 [facility] Social History 2017-12-18 2017-12-18 [facility] royal 16:53:06 16:53:06 Smoking Status Start Date Stop Date Source Never smoker [facility] Former smoker 2018-05-14 00:00:00 2018-05-14 00:00:00 [facility] Medications Ordered Filled Start Stop Current Ordering Indication Dosage Frequency Signature Comments Components Source Medication Medication Date Date Medication? Clinician (SIG) Name Name lisinopril Yes 20 mg = 1 Me moria 20 mg oral 2-24 tab, PO, l tablet 17:14: Daily, 0 Edmund 00 Refill(s) Aspirin 81 2019-0 Yes 81 mg = 1 Me moria MG Enteric 2-24 tab, PO, l Coated 17:14: Daily, # [place] Tablet 00 90 tab, 3 Refill(s) NovoLog 0 Yes SUB-Q, Memoria 2-24 TID-Before l 17:14: Meals, 0 [place] 00 Refill(s) lisinopril Yes 40 mg = 1 Me moria 40 mg oral 8-26 tab, PO, l tablet 15:26: Daily, 0 [place] 00 Refill(s) apixaban 5 Yes 5 mg = 1 Mem oria MG Oral 3-29 tab, PO, l Tablet 19:59: BID, # 180 Larissa nn [Eliquis] 56 tab, 3 Refill(s), Pharmacy: [facility] [id number] lisinopril Yes 5 mg = 1 Mem oria 5 mg oral 2-25 tab, PO, l tablet 16:45: BID, 0 Edmund 00 Refill(s) sitagliptin Yes 50 mg = 1 M emoria 50 MG Oral 2-25 tab, PO, l Tablet 16:45: Daily, 0 [place] [Januvia] 00 Refill(s) finasteride Yes 5mg QD Take [address] (PROSCAR) 5 -02 by mouth Luke s - mg tablet 17:11: daily. Medica l 02 Center brimonidine Yes 1[drp] QD [address] -timolol 9-02 nightly . [facility] - (COMBIGAN) 10:39: Medical 0.2-0.5 % 31 Center ophthalmic solution nitrofurant Yes 100mg Q.25D Take [address] [facility] oin 9-02 mg by [facility] - (MACRODANTI 10:39: mouth 4 Med ical N) 100 MG 31 (four) Center capsule times daily . travoprost Yes 1[drp] QD Place [address] (TRAVATAN 8-22 drop into [facility] - Z) 0.004 % 14:59: both eyes Me dical Drop 17 nightly. [place] ophthalmic drops lisinopril 2018-0 Yes 20mg QD Take [address] (PRINIVIL,Z 8-22 by mouth Luke s - ESTRIL) 20 14:59: daily. Medic al MG tablet 16 [place] amLODIPine 20180 Yes 5mg QD Take [address] (NORVASC) 5 8-22 by mouth Luke s - MG tablet 14:59: daily. Medica l 16 [place] metoprolol 2018-0 Yes 100mg QD Take [address] (TOPROL-XL) 8-22 mg by [facility] - 100 MG 24 14:59: mouth Medical hr tablet 16 daily. [place] apixaban 20180 Yes 5mg Q.5D Take [address] [address] (ELIQUIS) 5 8-22 by mouth 2 Destiny kes - mg Tab 14:59: (two) Medical tablet 16 times Center daily. metFORMIN 20180 Yes 1000mg Take 1,[address] [facility] (GLUCOPHAGE 8-22 mg by [facility] - ) 1000 MG 14:59: mouth 2 Medic al tablet 16 (two) Center times daily with breakfast and dinner. glipiZIDE 20180 Yes 10mg Take [address] (GLUCOTROL) 8-22 by mouth 2 Destiny kes - 10 MG 14:59: (two) Medical tablet 16 times Center daily before meals. tamsulosin 2018-0 Yes .4mg QD Take 0.[address] [facility] (FLOMAX) 8-22 mg by [facility] - 0.4 mg Cap 14:59: mouth Medica l 24 hr 16 daily. [place] capsule atorvastati 0 Yes 40mg QD Take [address] [facility] n (LIPITOR) 8-22 by mouth Luke s - 40 MG 14:59: daily. Medical tablet 15 [place] Ciprofloxac Yes 250 mg = 1 Memoria in 250 MG 6-18 tab, PO, l Oral Tablet 15:22: Q12H, X 7 H ermann [Cipro] 00 day, # 14 tab, 0 Refill(s), Pharmacy: [facility] [id number] Eliquis No Notes: Memoria 4-26 Same as: l 22:00: Eliqushakira [place] 00 Acetaminoph Yes 1 tab, PO, Memoria en 300 MG / - Q6H, PRN l Codeine 20:27: Pain, X 5 Larissa nn Phosphate 00 day, # 20 30 MG Oral tab, 0 Tablet Refill(s) [Tylenol with Codeine #3] Hydrocortis Yes 1 appl, Mem oria one 5 MG/ML 01-02 TOP, BID, l Topical 18:56: PRN Rash, Larissa nn Cream 00 0 Refill(s) Cephalexin Yes 500 mg = 1 M emoria 500 MG Oral -26 cap, PO, l Capsule 18:56: TID, X 7 Brennen n [Keflex] 00 day, # 21 cap, 0 Refill(s) Hydrocortis No 1 appl, Mem oria one 5 MG/ML 01-02 Route: l Topical 15:55: TOP, BID, Larissa nn Cream 00 Drug form: CRM, PRN Rash, Start date: 01/02/18 10:55:00 CDT, Duration: 30 day, Stop date: 02/01/18 10:54:00 CDT Brimonidine No 1 drp, Ryan melodie tartrate 2 01-02 Route: l MG/ML / 02:00: BOTH EYES, Herm donavon Timolol 5 00 Q12H, Drug MG/ML form: Ophthalmic SOLN, Solution Start [Combigan] date: 01/01/18 21:00:00 CDT, Duration: 30 day, Stop date: 01/31/18 9:00:00 CDT timolol No Notes: Memoria ophthalmic - (Same As: l 02:00: Timoptic, Edmund 00 Betimol) metoprolol No Notes: Memor ia tartrate 01-02 (Same as: l 02:00: Lopressor) brimonidine No Notes: Ryan melodie ophthalmic - (Same As: l 02:00: Alphagan) latanoprost No Notes: Ryan melodie ophthalmic -26 Keep l 02:00: refrigerat [place] 00 ed. (Same as:Xalatan ) Opened bottle may be stored at room temperatur e for 6 weeks Magnesium No Notes: Memori a Sulfate 01-01 WASTE: F/P l 23:00: - Sink; E Edmund 00 - Municipal Trash Bin travoprost No 1 drp, Memor ia 0.04 MG/ML 01-01 Route: l Ophthalmic 22:00: BOTH EYES, H ermann Solution 00 Drug Form: [Travatan] SOLN, Dosing Weight 93.295, kg, QPM, Start date: 01/01/18 17:00:00 CDT, Duration: 30 day, Stop date: 01/30/18 17:00:00 CDT Protonix No Notes: Memoria 4-25 Tablet l 16:30: should not Edmund 00 be chewed or crushed. Docusate No Notes: Memoria 4-25 (Same as: l 14:00: Colace) [place] (Do Not Crush) albumin No Notes: Memoria human 25% 4-25 LOT#: l intravenous 10:48: [place] solution 00 ___ Mfg: WASTE: F/P - Red; E -Red (Same as: Albuminar) "blood product derivative " NS (Bolus) No 1,000 mL, Me moria IV -25 1,000 l 10:48: ml/hr, Infuse Over: 1 hr, Route: IV, 1,000, Drug form: INJ, ONCE, Priority: STAT, Dosing Weight 93.295 kg, Start date: 01/01/18 5:48:00 CDT, Stop date: 01/01/18 5:48:00 CDT Ceftriaxone No Notes: Ryan melodie 4-25 (Same As: l 05:00: Rocephin). Edmund 00 Use with 100 mL NS and infuse over 30 min MEDICATION WASTE Product Size: 1000 mg Product Wasted: ___ mg Insulin No Notes: Memoria Lispro -25 (Same as: l 04:08: Humalog ) [place] 00 Roll in palms of hands gently; Do not shake `vigorousl y. "Single Patient Use Only " WASTE: F/P - Black; E - Municipal Trash Bin Stable for 28 days at room temperatur e. Expires in days from ____Date Dextrose 2017- No 12.5 gm, Memor ia 50% Syringe 4-25 25 mL, l 04:08: Route: Edmund 00 IVP, Drug Form: INJ, Dosing Weight 93.295, kg, PRN, PRN Blood Glucose Results, Start date: 12/31/17 23:08:00 CDT, Duration: 30 day, Stop date: 01/30/18 23:07:00 CDT Glucagon No 1 mg, Memoria 4-25 Route: IM, l 04:08: Drug form: [place] 00 PDR/INJ, PRN, Dosing Weight 93.295, kg, PRN Blood Glucose Results, Start date: 12/31/17 23:08:00 CDT, Duration: 30 day, Stop date: 01/30/18 23:07:00 CDT Saline No Notes: Memoria Flush 0.9% 4-25 (Same as: l 04:07: BD Edmund 00 Posiflush) Ondansetron No Notes: Ryan melodie 4-25 (Same as: l 04:07: Zofran [place] 00 ODT) Morphine No Notes: Memoria 4-25 (Same l 04:07: as:MORPhin Edmund 00 e Sulfate) Acetaminoph No Notes: Do M emoria en 4-25 not exceed l 04:07: 4 gm/day. [place] 00 (Same as: Tylenol) Acetaminoph No Notes: Ryan melodie en 325 MG / 4-25 (Same as: l Hydrocodone 04:07: Callicoon Larissa nn Bitartrate 00 325/5) Do 5 MG Oral not exceed Tablet 4gm/day of acetaminop hen. Sodium No 1,000 mL, Memori a Chloride 4-25 Rate: 75 l 0.9% IV 04:07: ml/hr, [place] 1,000 mL 00 Infuse over: 13.3 hr, Route: IV, Dosing Weight 93.295 kg, Total Volume: 1,000, Start date: 12/31/17 23:07:00 CDT, Duration: 30 day, Stop date: 01/30/18 23:06:00 CDT, 2.19, m2 glycopyrrol 2018-0 No Route: IV, Memoria ate (ANES) 4-16 Drug form: l 21:01: INJ, ONCE, Stop date: 12/23/17 16:01:00 CDT neostigmine 2018-0 No Route: IV, Memoria (ANES) 4-16 Drug form: l 21:01: INJ, ONCE, Stop date: 12/23/17 16:01:00 CDT ondansetron 2017-0 No Route: IV, Memoria (ANES) 4-16 Drug form: l 20:52: INJ, ONCE, Stop date: 12/23/17 15:52:00 CDT Hydralazine 2018-0 No 10 mg, Ryan melodie 4-16 Route: l 19:45: IVP, Edmund 00 Q20Min, Dosing Weight 84.091, kg, PRN Elevated BP, Start date: 12/23/17 14:45:00 CDT, Duration: 2 doses or times, Stop date: Limited # of times Ondansetron 2018-0 No 4 mg, Memor ia 4-16 Route: l 19:45: IVP, ONCE, Dosing Weight 84.091, kg, PRN Nausea & Vomiting, Start date: 12/23/17 14:45:00 CDT Morphine 2018-0 No 2 mg, Memoria 4-16 Route: l 19:45: IVP, [place] 00 Q5Min, Dosing Weight 84.091, kg, PRN Pain Score 4-6, Start date: 12/23/17 14:45:00 CDT, Duration: 5 doses or times, Stop date: Limited # of times Naloxone 2018-0 No 0.4 mg, Memori a 4-16 Route: l 19:45: IVP, Edmund 00 Q2MIN, Dosing Weight 84.091, kg, PRN Narcotic Reversal, Start date: 12/23/17 14:45:00 CDT, Duration: 8 doses or times, Stop date: Limited # of times Flumazenil 2018-0 No 0.2 mg, Ryan melodie 4-16 Route: l 19:45: IVP, PRN, Dosing Weight 84.091, kg, PRN Benzodiaze pine Reversal, Initial dose, Start date: 12/23/17 14:45:00 CDT, Duration: 30 day, Stop date: 01/22/18 14:44:00 CDT Hydromorpho 2017-0 No 0.5 mg, Mem oria ne 4-16 Route: l 19:45: IVP, Q5Min, Dosing Weight 84.091, kg, PRN Pain Score 7-10, Start date: 12/23/17 14:45:00 CDT, Duration: 4 doses or times, Stop date: Limited # of times rocuronium No Route: IV, M emoria (ANES) 4-16 Drug form: l 19:22: INJ, ONCE, Stop date: 12/23/17 14:22:00 CDT fentaNYL No Route: IV, Mem oria (ANES) 4-16 Drug form: l 19:17: INJ, ONCE, Stop date: 12/23/17 14:17:00 CDT lidocaine No Route: IV, Me moria (ANES) 4-16 Drug form: l 19:17: INJ, ONCE, Stop date: 12/23/17 14:17:00 CDT propofol 2017- No Route: IV, Mem oria (ANES) 4-16 Drug form: l 19:17: INJ, ONCE, Stop date: 12/23/17 14:17:00 CDT ePHEDrine No Route: IV, Me moria (ANES) 4-16 Drug form: l 19:02: INJ, ONCE, Stop date: 12/23/17 14:02:00 CDT ceFAZolin No Route: IV, Me moria (ANES) 4-16 Drug form: l 19:02: INJ, ONCE, Stop date: 12/23/17 14:02:00 CDT acetaminoph No Route: IV, Memoria en (ANES) 4-16 Drug form: l 10 mg 18:24: INJ, Start date: 12/23/17 13:24:00 CDT, Stop date: 12/23/17 14:24:00 CDT Lactated 2017-0 No Route: IV, Mem oria Ringers 4-16 Total l Injection 18:12: Volume: Larissa nn IV (ANES) 00 1,000, 1000 mL Start date: 12/23/17 13:12:00 CDT, Stop date: 12/23/17 14:12:00 CDT Lidocaine 2018-0 No 0.5 mL, Memor ia Hydrochlori 16 Route: l de 10 MG/ML 16:00: INTRADERM, Edmund Injectable 00 Dosing Solution Weight 84.091, kg, ONCALL, Start date: 12/23/17 11:00:00 CDT, Duration: 1 doses or times Sodium 2018-0 No 1,000 mL, Memori a Chloride -16 Rate: 25 l 0.9% IV 15:33: ml/hr, [place] 1000 mL 00 Infuse over: 40 hr, Route: IV, Dosing Weight 84.091 kg, Total Volume: 1,000, Start date: 12/23/17 10:33:00 CDT, Duration: 30 day, Stop date: 01/22/18 10:32:00 CDT, 2.06, m2 Ancef + 2017-0 Yes Notes: Memoria sterile 4-16 (Same As: l water 20 mL 15:33: Ancef, Herm donavon 00 Kefzol) MEDICATION WASTE Product Size: 1000 mg Product Wasted: ___ mg amLODIPine 2018-0 Yes 5 mg = 1 Mem oria 5 mg oral 3-26 tab, PO, l tablet 18:46: Daily, # [place] 05 90 tab, 1 Refill(s), Pharmacy: [facility], DUE FOR AN OFFICE VISIT. PLEASE CALL DR. CRUZ' S OFFICE TO MAKE AN APT. lisinopril 2018-0 No 20 mg = 1 Me moria 20 mg oral 3-26 tab, PO, l tablet 18:44: Daily, # [place] 59 90 tab, 1 Refill(s), Pharmacy: [facility], DUE FOR AN OFFICE VISIT. PLEASE CALL DR. COLVIN 'S OFFICE TO MAKE AN APT. Metoprolol 2018-0 Yes 100 mg = 1 M emoria Succinate 3-26 tab, PO, l ER 100 mg 18:44: Daily, # Herm donavon oral 22 90 tab, 1 tablet, Refill(s), extended Pharmacy: [facility] [id number] atorvastati Yes 40 mg = 1 M emoria n 40 mg 3-26 tab, PO, l oral tablet 18:44: Daily, # He rmann 00 90 tab, 1 Refill(s), Pharmacy: [facility] [id number] dapaglifloz Yes 5 mg = 1 Me moria in 3-22 tab, PO, l propanediol 16:04: Daily, 0 He rmann 5 MG Oral 00 Refill(s) Tablet [Farxiga] atorvastati No 40 mg = 1 M emoria n 40 mg 3-22 tab, PO, l oral tablet 16:04: Daily, 0 He rmann 00 Refill(s) apixaban 5 2016-09 Yes 5 mg = 1 Mem oria MG Oral 1-10 tab, PO, l Tablet 22:10: BID, # 180 Larissa nn [Eliquis] 44 tab, 1 Refill(s), Pharmacy: [facility] [id number] Metoprolol Metoprolol Yes Uni vers Tartrate 25 Tartrate 25 i ty of MG Oral MG Oral [place] Tablet Tablet Physici ans GlipiZIDE GlipiZIDE Yes Unive rs 10 MG Oral 10 MG Oral ity of Tablet Tablet [place] Physici ans PriLOSEC 10 PriLOSEC 10 Yes U nivers MG CPDR MG CPDR ity of [place] Physici ans Atorvastati Atorvastati Yes U nivers n Calcium n Calcium ity o f 40 MG Oral 40 MG Oral Qasim as Tablet Tablet Physici ans Travatan Z Travatan Z Yes Uni vers 0.004 % 0.004 % ity of Ophthalmic Ophthalmic Qasim as Solution Solution Physici ans Deedee Deedee Yes Univers Aspirin Aspirin ity of TABS TABS [place] Physici ans MetFORMIN MetFORMIN Yes Unive rs HCl - 1000 HCl - 1000 ity of MG Oral MG Oral [place] Tablet Tablet Physici ans Lisinopril Lisinopril Yes Uni vers 40 MG Oral 40 MG Oral ity of Tablet Tablet [place] Physici ans AmLODIPine AmLODIPine Yes Uni vers Besylate 5 Besylate 5 ity of MG Oral MG Oral [place] Tablet Tablet Physici ans Tamsulosin Tamsulosin Yes Uni vers HCl CAPS HCl CAPS ity of [place] Physici ans Ciprofloxac Ciprofloxac Yes U nivers in 500 MG in 500 MG ity o f TABS TABS [place] Physici ans Acetaminoph Acetaminoph Yes U nivers en-Codeine en-Codeine ity of #3 300-30 #3 300-30 [place] MG Oral MG Oral Physici Tablet Tablet ans Ondansetron Ondansetron Yes U nivers 4 MG Oral 4 MG Oral ity o f Tablet Tablet [place] Disintegrat Disintegrat P hysici ing ing ans Januvia 50 Januvia 50 Yes Uni vers MG Oral MG Oral ity of Tablet Tablet [place] Physici ans Eliquis 2.5 Eliquis 2.5 Yes U nivers MG Oral MG Oral ity of Tablet Tablet [place] Physici ans Vital Signs Vital Name Observation Time Observation Value Comments Source Systolic (mm Hg) 2020-02-24 14:38:00 Ryan rial [place] Diastolic (mm Hg) 2020-02-24 14:38:00 Mem orial [place] Heart Rate 2020-02-24 14:38:00 [facility] Height 2020-02-24 14:38:00 182.88 cm [facility] Weight 2020-02-24 14:38:00 [facility] BMI Calculated 2020-02-24 14:38:00 Memori al [place] Systolic (mm Hg) 2019-11-02 17:12:00 Ryan rial [place] Diastolic (mm Hg) 2019-11-02 17:12:00 Mem orial [place] Heart Rate 2019-11-02 17:12:00 [facility] Height 2019-11-02 17:12:00 180.34 cm [facility] Weight 2019-11-02 17:12:00 [facility] BMI Calculated 2019-11-02 17:12:00 Memori al [place] Systolic (mm Hg) 2019-05-04 15:24:00 Ryan rial [place] Diastolic (mm Hg) 2019-05-04 15:24:00 Mem orial Edmund Heart Rate 2019-05-04 15:24:00 [facility] [place] Height 2019-05-04 15:24:00 180.34 cm [facility] Weight 2019-05-04 15:24:00 [facility] BMI Calculated 2019-05-04 15:24:00 Memori al [place] BMI Calculated 2018-11-03 16:43:00 Memori al [place] Weight 2018-11-03 16:43:00 [facility] [place] Height 2018-11-03 16:43:00 177.8 cm Memorial [place] Systolic (mm Hg) 2018-11-03 16:43:00 Ryan rial [place] Diastolic (mm Hg) 2018-11-03 16:43:00 [facility] Heart Rate 2018-11-03 16:43:00 [facility] Height 2018-09-17 10:37:00 71 [in_us] [facility] Physician s Weight 2018-09-17 10:37:00 198 [lb_av] [facility] Physician s Body Mass Index 2018-09-17 10:37:00 27.62 kg/m2 Unive rsity of Calculated [place] Physician s Heart Rate 2018-05-05 16:44:00 [facility] [place] Systolic (mm Hg) 2018-05-05 16:44:00 Ryan rial [facility] Diastolic (mm Hg) 2018-05-05 16:44:00 [facility] Weight 2018-05-05 16:44:00 [facility] BMI Calculated 2018-05-05 16:44:00 [facility] Height 2018-05-05 16:44:00 177.8 cm [facility] BMI Calculated 2018-02-24 15:01:00 [facility] [place] Weight 2018-02-24 15:01:00 [facility] Height 2018-02-24 15:01:00 182.88 cm [facility] [place] Systolic (mm Hg) 2018-02-24 15:01:00 Ryan rial [place] Diastolic (mm Hg) 2018-02-24 15:01:00 [facility] Heart Rate 2018-02-24 15:01:00 [facility] [place] Temperature Oral (F) 2018-01-02 21:08:00 97.8 F [facility] Systolic (mm Hg) 2018-01-02 21:08:00 Ryan rial [place] Diastolic (mm Hg) 2018-01-02 21:08:00 [facility] Respitory Rate 2018-01-02 21:08:00 [facility] Heart Rate 2018-01-02 21:08:00 [facility] Respitory Rate 2018-01-02 16:25:00 [facility] [place] Temperature Oral (F) 2018-01-02 16:25:00 98.2 F [facility] Heart Rate 2018-01-02 16:25:00 [facility] [place] Systolic (mm Hg) 2018-01-02 16:25:00 Ryan rial [place] Diastolic (mm Hg) 2018-01-02 16:25:00 [facility] [place] Heart Rate 2018-01-02 12:58:00 [facility] [place] Respitory Rate 2018-01-02 12:58:00 [facility] [place] Systolic (mm Hg) 2018-01-02 12:58:00 Ryan rial [place] Diastolic (mm Hg) 2018-01-02 12:58:00 [facility] Temperature Oral (F) 2018-01-02 12:58:00 98.3 F [facility] [place] BMI Calculated 2018-01-01 03:40:00 [facility] [place] Weight 2018-01-01 03:40:00 [facility] Height 2018-01-01 03:40:00 182.88 cm [facility] [place] Systolic (mm Hg) 2017-12-23 21:45:00 Ryan rial [place] Diastolic (mm Hg) 2017-12-23 21:45:00 [facility] Respitory Rate 2017-12-23 21:45:00 [facility] [place] Systolic (mm Hg) 2017-12-23 21:39:00 Ryan rial [place] Diastolic (mm Hg) 2017-12-23 21:39:00 Mem [facility] [place] Respitory Rate 2017-12-23 21:39:00 [facility] [place] Systolic (mm Hg) 2017-12-23 21:24:00 Ryan rial [place] Diastolic (mm Hg) 2017-12-23 21:24:00 [facility] Respitory Rate 2017-12-23 21:24:00 [facility] [place] Heart Rate 2017-12-23 15:46:00 [facility] BMI Calculated 2017-12-18 15:02:00 [facility] [place] Weight 2017-12-18 15:02:00 [facility] Height 2017-12-18 15:02:00 180.34 cm [facility] BMI Calculated 2017-11-28 16:03:00 [facility] [place] Heart Rate 2017-11-28 16:03:00 [facility] Systolic (mm Hg) 2017-11-28 16:03:00 Ryan martinez [place] Diastolic (mm Hg) 2017-11-28 16:03:00 Mem oriinge [place] Height 2017-11-28 16:03:00 177.8 cm [facility] Weight 2017-11-28 16:03:00 [facility] Procedures Procedure Date / Time Performing Clinician Source Performed Pre Op Promise 29 Survey 2018-09-10 00:00:00 [facility] Physicians Measurement of 2018-02-24 15:04:00 [facility] post-voiding residual urine and/or bladder capacity by ultrasound, non-imaging History of Heart Surgery [facility] Physicians History of Angioplasty [facility] Internal Carotid Artery Physicia ns CABG - Coronary artery [facility] [place] bypass graft<sup>1</sup> Cardiac [facility] [place] catheterization<sup>2</s up> Carotid [facility] [place] endarterectomy<sup>3</beckett p> Repair of diaphragmatic [facility] hiatal hernia<sup>4</sup> Encounters Start End Encounter Admission Attending Care Care Encounter Source Date/Time Date/Time Type Type Clinicians Facility Department ID 2020-02-24 2020-02-24 Outpatient Clif [facility] [id number] 09:00:00 23:59:59 Gabrielle L 16 2019-11-02 2019-11-02 Outpatient Familia [facility] [id number] 11:00:00 23:59:59 Syed Samaniego 14 2019-05-04 2019-05-04 Outpatient Familia [facility] [id number] 10:15:00 23:59:59 Syed Samaniego 13 2018-10-22 2018-11-20 Outpatient Trung Engel.16.840. [id number]. [id number] 08:38:00 23:59:00 Yakov [id number] Strake [id number] 5.98 2018-11-03 2018-11-03 Outpatient Familia [facility] [id number] 10:30:00 23:59:59 Syed Samaniego 12 2018-09-22 2018-10-21 Outpatient Lalita Engel16.840. [id number]. [id number] 09:51:00 23:59:00 Yakov [id number] Aubreyaleksander 3.615.98 5.98 2018-09-17 2018-09-17 AppointKLEBER Campa [facility] [id number] Univers 09:30:00 09:30:00 t; Carlos Eduardo YAÑEZ Orth[facility] of [facility] W[facility] Allison Wahl M.D. [place] ans 2018-05-05 2018-05-05 [place] [id number] 11:15:00 23:59:59 Syed Aden 2018-03-19 2018-03-20 Outpatient MG [facility] [id number] 13:39:00 23:59:59 06 2018-02-24 2018-02-24 [place] [id number] 09:15:00 23:59:59 Robbi 11 2018-01-16 2018-01-16 [place] [id number] 14:15:00 14:15:00 Robbi 10 2018-01-16 2018-01-16 [place] [id number] 14:15:00 14:15:00 Robbi 10 2018-01-06 2018-01-07 Outpatient MG MG [id number] 11:57:00 23:59:59 05 2017-12-31 2018-01-02 Outpatient Latonya Kamara [facility] [id number] 22:14:00 16:55:00 A 14 2017-12-31 2017-12-31 Outpatient Katy, [facility] [id number] 22:12:00 22:12:00 Nerileoncio Oronachavo 2017-12-23 2017-12-23 Outpatient Gomez, Fer [facility] [id number] 05:43:00 17:20:00 Efren Duvall 2017-11-28 2017-11-28 Outpatient Nancy, MG [facility] [id number] 10:45:00 23:59:59 Laith Santana 2017-11-28 2017-11-28 Outpatient Nancy, [facility] [id number] 10:45:00 23:59:59 Laith Santana 2017-07-19 2017-07-20 Outpatient [facility] [id number] 16:08:00 23:59:59 04 2017-04-30 2017-04-30 Appointmen [facility]LEBER ENGEL [facility] [id number] Univers 11:30:00 11:30:00 t; Carlos Eduardo YAÑEZ it y of [facility] ENGEL Physici M.D. ans Results Test Test Test Results Result Source Description Time Comments Comments [U] XRAY SPINE 2018-09- Images acquired, not University of LUMBOSACRAL MIN 09 reported on this Qasim as 4 VWS [id number] 11:15:00 accession number. Physic ians [U] XRAY HIPS 2018-09- Images acquired, not U niversity of BILATERAL MIN 2 09 reported on this Qasim as VWS AND AP 07:43:00 accession number. Ailyn ans PELVIS [id number] TISSUE EXAM 2018-05- Surgical Pathology 10 Report 17:28:00 Case: [id number] Authorizing Provider: Byron Ardon MD Collected: 05/13/2018 1448 Ordering Location: [facility] Received: 05/14/2018 0818 SERVICES Pathologist: Eze [...] FAST MICROORGANISMS Signing Pathologist Direct Phone Line: [phone] ly signed by Eze Guzman MD on 05/19/2018 at 5:28 PMPreliminary result electronically signed by Eze Guzman MD on 05/16/2018 at 11:49 AMSpecial stains for AFB and GMS were negative for acid fast and fungal microorganisms, respectively. [id number] bladder emptying A. Mesh; B. Bladder with [...] surface throughout. No discrete masses are identified. Creping Machine Operator sections are submitted in cassettes C1-C19. DB/plPerformed POCT-GLUCOSE METER 2018-05-16 07:37:00 Test Item Value Reference Range Interpretation Comme [facility] (test 184 mg/dL 70-110 H TESTED AT [facility] [address] [facility] code = 1538) [facility] [phone] BASIC METABOLIC [id number] 06:19:00 Test Item Value Reference Range Interpretation Comments SODIUM (BEAKER) 138 meq/L 136-145 (test code = 381) POTASSIUM (BEAKER) 3.7 meq/L 3.5-5.1 (test code = 379) CHLORIDE (BEAKER) 107 meq/L 98-107 (test code = 382) CO2 (BEAKER) (test 22 meq/L 22-29 code = 355) BLOOD UREA NITROGEN 9 mg/dL 7-21 (BEAKER) (test code = 354) CREATININE (BEAKER) 0.78 mg/dL 0.57-1.25 (test code = 358) GLUCOSE RANDOM 144 mg/dL 70-105 H (BEAKER) (test code = 652) CALCIUM (BEAKER) 9.2 mg/dL 8.4-10.2 (test code = 697) EGFR (BEAKER) (test 96 mL/min/1.73 ESTIMA JEY GFR IS code = 1092) sq m NOT ACCURATE CREATININE CLEARANCE IN PREDICTING GLOMERULAR FILTRATION RATE . ESTIMATED GFR I S NOT APPLICABLE FOR DIALYSIS PATIEN TS. CBC (HEMOGRAM ONLY)2018-05-16 05:48:00 Test Item Value Reference Range Interpretation Comments WHITE BLOOD CELL COUNT (BEAKER) 11.0 K/ L 3.5-10.5 H (test code = 775) RED BLOOD CELL COUNT (BEAKER) 3.56 M/ L 4.63-6.08 L (test code = 761) HEMOGLOBIN (BEAKER) (test code = 11.1 GM/DL 13.7-17.5 L 410) HEMATOCRIT (BEAKER) (test code = 34.5 % 40.1-51.0 L 411) MEAN CORPUSCULAR VOLUME (BEAKER) 96.9 fL 79.0-92.2 H (test code = 753) MEAN CORPUSCULAR HEMOGLOBIN 31.2 pg 25.7-32.2 (BEAKER) (test code = 751) MEAN CORPUSCULAR HEMOGLOBIN CONC 32.2 GM/DL 32.3-36.5 L (BEAKER) (test code = 752) RED CELL DISTRIBUTION WIDTH 13.2 % 11.6-14.4 (BEAKER) (test code = 412) PLATELET COUNT (BEAKER) (test 191 K/CU MM 150-450 code = 756) MEAN PLATELET VOLUME (BEAKER) 10.6 fL 9.4-12.4 (test code = 754) NUCLEATED RED BLOOD CELLS 0 /100 WBC 0-0 (BEAKER) (test code = 413) POCT-GLUCOSE [id number] 21:51:00 Test Item Value Reference Range Interpretation Comments POC-GLUCOSE METER 216 mg/dL 70-110 H TESTED AT [place] [address] ([facility]) (test code = [facility] 1538) [address] POCT-GLUCOSE [id number] 19:28:00 Test Item Value Reference Range Interpretation Comments POC-GLUCOSE METER 186 mg/dL 70-110 H TESTED AT [place] [address] ([facility]) (test code = [facility] 1538) [address] POCT-GLUCOSE [id number] 16:57:00 Test Item Value Reference Range Interpretation Comments POC-GLUCOSE METER 215 mg/dL 70-110 H TESTED AT [place] [address] ([facility]) (test code = [facility] 1538) [address] POCT-GLUCOSE [id number] 12:43:00 Test Item Value Reference Range Interpretation Comments POC-GLUCOSE METER 223 mg/dL 70-110 H TESTED AT [facility] 6720 ([facility]) (test code = [facility] 1538) [address] POCT-GLUCOSE [id number] 08:13:00 Test Item Value Reference Range Interpretation Comments POC-GLUCOSE METER 157 mg/dL 70-110 H TESTED AT [facility] 6720 ([facility]) (test code = [place] 1538) [address] GENTAMICIN LEVEL, [id number] 05:51:00 Test Item Value Reference Range Interpretation Comments GENTAMICIN TROUGH (BEAKER) (test 1.9 ug/mL 0.5-1.0 H code = 398) Dosing Target Level (mcg/mL)1-1.5 mg/kg q 8-12 HR 0.5-1.03-7 mg/kg q 24 HR <0.5BASIC METABOLIC [id number] 05:47:00 Test Item Value Reference Range Interpretation Comments SODIUM (BEAKER) 135 meq/L 136-145 L (test code = 381) POTASSIUM (BEAKER) 4.3 meq/L 3.5-5.1 (test code = 379) CHLORIDE (BEAKER) 107 meq/L 98-107 (test code = 382) CO2 (BEAKER) (test 21 meq/L 22-29 L code = 355) BLOOD UREA NITROGEN 16 mg/dL 7-21 (BEAKER) (test code = 354) CREATININE (BEAKER) 1.00 mg/dL 0.57-1.25 (test code = 358) GLUCOSE RANDOM 126 mg/dL 70-105 H (BEAKER) (test code = 652) CALCIUM (BEAKER) 8.8 mg/dL 8.4-10.2 (test code = 697) EGFR (BEAKER) (test 72 mL/min/1.73 ESTIMA JEY GFR IS code = 1092) sq m NOT ACCURATE CREATININE CLEARANCE IN PREDICTING GLOMERULAR FILTRATION RATE . ESTIMATED GFR I S NOT APPLICABLE FOR DIALYSIS PATIEN TS. CBC (HEMOGRAM ONLY)2018-05-15 05:31:00 Test Item Value Reference Range Interpretation Comments WHITE BLOOD CELL COUNT (BEAKER) 11.7 K/ L 3.5-10.5 H (test code = 775) RED BLOOD CELL COUNT (BEAKER) 3.57 M/ L 4.63-6.08 L (test code = 761) HEMOGLOBIN (BEAKER) (test code = 11.1 GM/DL 13.7-17.5 L 410) HEMATOCRIT (BEAKER) (test code = 35.4 % 40.1-51.0 L 411) MEAN CORPUSCULAR VOLUME (BEAKER) 99.2 fL 79.0-92.2 H (test code = 753) MEAN CORPUSCULAR HEMOGLOBIN 31.1 pg 25.7-32.2 (BEAKER) (test code = 751) MEAN CORPUSCULAR HEMOGLOBIN CONC 31.4 GM/DL 32.3-36.5 L (BEAKER) (test code = 752) RED CELL DISTRIBUTION WIDTH 13.6 % 11.6-14.4 (BEAKER) (test code = 412) PLATELET COUNT (BEAKER) (test 211 K/CU MM 150-450 code = 756) MEAN PLATELET VOLUME (BEAKER) 10.8 fL 9.4-12.4 (test code = 754) NUCLEATED RED BLOOD CELLS 0 /100 WBC 0-0 (AKER) (test code = 413) POCT-GLUCOSE [id number] 21:47:00 Test Item Value Reference Range Interpretation Comments POC-GLUCOSE METER 220 mg/dL 70-110 H TESTED AT [place] [address] ([facility]) (test code = [place] 1538) [address] POCT-GLUCOSE [id number] 17:06:00 Test Item Value Reference Range Interpretation Comments POC-GLUCOSE METER 211 mg/dL 70-110 H TESTED AT [place] [address] ([facility]) (test code = [place] 1538) [address] POCT-GLUCOSE [id number] 11:44:00 Test Item Value Reference Range Interpretation Comments POC-GLUCOSE METER 225 mg/dL 70-110 H TESTED AT [place] [address] ([facility]) (test code = [place] 1538) [address] POCT-GLUCOSE [id number] 08:29:00 Test Item Value Reference Range Interpretation Comments POC-GLUCOSE METER 201 mg/dL 70-110 H TESTED AT [place] [address] ([facility]) (test code = [place] 1538) [address] BASIC METABOLIC [id number] 06:04:00 Test Item Value Reference Range Interpretation Comments SODIUM (BEAKER) 136 meq/L 136-145 (test code = 381) POTASSIUM (BEAKER) 4.7 meq/L 3.5-5.1 (test code = 379) CHLORIDE (BEAKER) 110 meq/L 98-107 H (test code = 382) CO2 (BEAKER) (test 20 meq/L 22-29 L code = 355) BLOOD UREA NITROGEN 18 mg/dL 7-21 (BEAKER) (test code = 354) CREATININE (BEAKER) 0.93 mg/dL 0.57-1.25 (test code = 358) GLUCOSE RANDOM 195 mg/dL 70-105 H (BEAKER) (test code = 652) CALCIUM (BEAKER) 8.4 mg/dL 8.4-10.2 (test code = 697) EGFR (BEAKER) (test 79 mL/min/1.73 ESTIMA JEY GFR IS code = 1092) sq m NOT ACCURATE CREATININE CLEARANCE IN PREDICTING GLOMERULAR FILTRATION RATE . ESTIMATED GFR I S NOT APPLICABLE FOR DIALYSIS PATIEN TS. CBC (HEMOGRAM ONLY)2018-05-14 05:27:00 Test Item Value Reference Range Interpretation Comments WHITE BLOOD CELL COUNT (BEAKER) 15.2 K/ L 3.5-10.5 H (test code = 775) RED BLOOD CELL COUNT (BEAKER) 3.73 M/ L 4.63-6.08 L (test code = 761) HEMOGLOBIN (BEAKER) (test code = 11.6 GM/DL 13.7-17.5 L 410) HEMATOCRIT (BEAKER) (test code = 36.7 % 40.1-51.0 L 411) MEAN CORPUSCULAR VOLUME (BEAKER) 98.4 fL 79.0-92.2 H (test code = 753) MEAN CORPUSCULAR HEMOGLOBIN 31.1 pg 25.7-32.2 (BEAKER) (test code = 751) MEAN CORPUSCULAR HEMOGLOBIN CONC 31.6 GM/DL 32.3-36.5 L (BEAKER) (test code = 752) RED CELL DISTRIBUTION WIDTH 13.3 % 11.6-14.4 (BEAKER) (test code = 412) PLATELET COUNT (BEAKER) (test 225 K/CU MM 150-450 code = 756) MEAN PLATELET VOLUME (BEAKER) 10.7 fL 9.4-12.4 (test code = 754) NUCLEATED RED BLOOD CELLS 0 /100 WBC 0-0 (BEAKER) (test code = 413) POCT-GLUCOSE [id number] 21:39:00 Test Item Value Reference Range Interpretation Comments POC-GLUCOSE METER 275 mg/dL 70-110 H TESTED AT [facility] 6720 (BEAKER) (test code = [place] 1538) [address] BASIC METABOLIC [id number] 19:42:00 Test Item Value Reference Range Interpretation Comments SODIUM (BEAKER) 137 meq/L 136-145 (test code = 381) POTASSIUM (BEAKER) 5.1 meq/L 3.5-5.1 (test code = 379) CHLORIDE (BEAKER) 111 meq/L 98-107 H (test code = 382) CO2 (BEAKER) (test 21 meq/L 22-29 L code = 355) BLOOD UREA NITROGEN 16 mg/dL 7-21 (BEAKER) (test code = 354) CREATININE (BEAKER) 0.80 mg/dL 0.57-1.25 (test code = 358) GLUCOSE RANDOM 194 mg/dL 70-105 H (BEAKER) (test code = 652) CALCIUM (BEAKER) 8.2 mg/dL 8.4-10.2 L (test code = 697) EGFR (BEAKER) (test 93 mL/min/1.73 ESTIMA JEY GFR IS code = 1092) sq m NOT ACCURATE CREATININE CLEARANCE IN PREDICTING GLOMERULAR FILTRATION RATE . ESTIMATED GFR I S NOT APPLICABLE FOR DIALYSIS PATIEN TS. PACUCBC (HEMOGRAM ONLY)2018-05-13 19:06:00 Test Item Value Reference Range Interpretation Comments WHITE BLOOD CELL COUNT (BEAKER) 12.5 K/ L 3.5-10.5 H (test code = 775) RED BLOOD CELL COUNT (BEAKER) 3.62 M/ L 4.63-6.08 L (test code = 761) HEMOGLOBIN (BEAKER) (test code = 11.4 GM/DL 13.7-17.5 L 410) HEMATOCRIT (BEAKER) (test code = 35.5 % 40.1-51.0 L 411) MEAN CORPUSCULAR VOLUME (BEAKER) 98.1 fL 79.0-92.2 H (test code = 753) MEAN CORPUSCULAR HEMOGLOBIN 31.5 pg 25.7-32.2 ([facility]) (test code = 751) MEAN CORPUSCULAR HEMOGLOBIN CONC 32.1 GM/DL 32.3-36.5 L ([facility]) (test code = 752) RED CELL DISTRIBUTION WIDTH 13.0 % 11.6-14.4 ([facility]) (test code = 412) PLATELET COUNT ([facility]) (test 209 K/CU MM 150-450 code = 756) MEAN PLATELET VOLUME ([facility]) 10.3 fL 9.4-12.4 (test code = 754) NUCLEATED RED BLOOD CELLS 0 /100 WBC 0-0 ([facility]) (test code = 413) POCT-GLUCOSE [id number] 18:50:00 Test Item Value Reference Range Interpretation Comments POC-GLUCOSE METER 197 mg/dL 70-110 H TESTED AT [place] [address] ([facility]) (test code = [facility] 1538) [id number] VANCOMYCIN LEVEL, [id number] 12:29:00 Test Item Value Reference Range Interpretation Comments VANCOMYCIN TROUGH ([facility]) (test 20.9 ug/mL 10.0-20.0 H code = 522) Please draw trough at 1330 (30 minutes prior to scheduled vancomycin dose at 1400).POCT-GLUCOSE [id number] 07:17:00 Test Item Value Reference Range Interpretation Comments POC-GLUCOSE METER 148 mg/dL 70-110 H TESTED AT [place] [address] ([facility]) (test code = [facility] 1538) [address] POCT-GLUCOSE [id number] 06:09:00 Test Item Value Reference Range Interpretation Comments POC-GLUCOSE METER 149 mg/dL 70-110 H TESTED AT [place] [address] ([facility]) (test code = [facility] 1538) [address] BASIC METABOLIC [id number] 06:04:00 Test Item Value Reference Range Interpretation Comments SODIUM (AKER) 140 meq/L 136-145 (test code = 381) POTASSIUM (BEAKER) 4.4 meq/L 3.5-5.1 (test code = 379) CHLORIDE (BEAKER) 108 meq/L 98-107 H (test code = 382) CO2 (BEAKER) (test 24 meq/L 22-29 code = 355) BLOOD UREA NITROGEN 14 mg/dL 7-21 (BEAKER) (test code = 354) CREATININE (BEAKER) 0.81 mg/dL 0.57-1.25 (test code = 358) GLUCOSE RANDOM 131 mg/dL 70-105 H (BEAKER) (test code = 652) CALCIUM (BEAKER) 9.8 mg/dL 8.4-10.2 (test code = 697) EGFR (BEAKER) (test 92 mL/min/1.73 ESTIMA JEY GFR IS code = 1092) sq m NOT ACCURATE CREATININE CLEARANCE IN PREDICTING GLOMERULAR FILTRATION RATE . ESTIMATED GFR I S NOT APPLICABLE FOR DIALYSIS PATIEN TS. CBC (HEMOGRAM ONLY)2018-05-13 05:38:00 Test Item Value Reference Range Interpretation Comments WHITE BLOOD CELL COUNT (BEAKER) 7.0 K/ L 3.5-10.5 (test code = 775) RED BLOOD CELL COUNT (BEAKER) 4.18 M/ L 4.63-6.08 L (test code = 761) HEMOGLOBIN (BEAKER) (test code = 13.1 GM/DL 13.7-17.5 L 410) HEMATOCRIT (BEAKER) (test code = 40.7 % 40.1-51.0 411) MEAN CORPUSCULAR VOLUME (BEAKER) 97.4 fL 79.0-92.2 H (test code = 753) MEAN CORPUSCULAR HEMOGLOBIN 31.3 pg 25.7-32.2 (BEAKER) (test code = 751) MEAN CORPUSCULAR HEMOGLOBIN CONC 32.2 GM/DL 32.3-36.5 L (BEAKER) (test code = 752) RED CELL DISTRIBUTION WIDTH 13.2 % 11.6-14.4 (BEAKER) (test code = 412) PLATELET COUNT (BEAKER) (test 225 K/CU MM 150-450 code = 756) MEAN PLATELET VOLUME (BEAKER) 10.8 fL 9.4-12.4 (test code = 754) NUCLEATED RED BLOOD CELLS 0 /100 WBC 0-0 (BEAKER) (test code = 413) POCT-GLUCOSE [id number] 21:17:00 Test Item Value Reference Range Interpretation Comments POC-GLUCOSE METER 164 mg/dL 70-110 H TESTED AT [facility] 67[address] ([facility]) (test code = [place] 1538) [address] POCT-GLUCOSE [id number] 16:39:00 Test Item Value Reference Range Interpretation Comments POC-GLUCOSE METER 225 mg/dL 70-110 H TESTED AT [facility] 6720 [facility] (test code = [facility] [facility] 1538) [address] POCT-GLUCOSE [id number] 12:09:00 Test Item Value Reference Range Interpretation Comments POC-GLUCOSE METER 186 mg/dL 70-110 H TESTED AT [place] [address] ([facility] (test code = [facility] 1538) [address] POCT-GLUCOSE [id number] 08:50:00 Test Item Value Reference Range Interpretation Comments POC-GLUCOSE METER 194 mg/dL 70-110 H TESTED AT [place] [address] ([facility] (test code = [facility] 1538) [address] BASIC METABOLIC [id number] 06:04:00 Test Item Value Reference Range Interpretation Comments SODIUM (BEAKER) 138 meq/L 136-145 (test code = 381) POTASSIUM (BEAKER) 3.9 meq/L 3.5-5.1 (test code = 379) CHLORIDE (BEAKER) 107 meq/L 98-107 (test code = 382) CO2 (BEAKER) (test 22 meq/L 22-29 code = 355) BLOOD UREA NITROGEN 19 mg/dL 7-21 (BEAKER) (test code = 354) CREATININE (BEAKER) 0.85 mg/dL 0.57-1.25 (test code = 358) GLUCOSE RANDOM 141 mg/dL 70-105 H (BEAKER) (test code = 652) CALCIUM (BEAKER) 9.2 mg/dL 8.4-10.2 (test code = 697) EGFR (BEAKER) (test 87 mL/min/1.73 ESTIMA JEY GFR IS code = 1092) sq m NOT ACCURATE CREATININE CLEARANCE IN PREDICTING GLOMERULAR FILTRATION RATE . ESTIMATED GFR I S NOT APPLICABLE FOR DIALYSIS PATIEN TS. CBC (HEMOGRAM ONLY)2018-05-12 05:33:00 Test Item Value Reference Range Interpretation Comments WHITE BLOOD CELL COUNT (BEAKER) 7.5 K/ L 3.5-10.5 (test code = 775) RED BLOOD CELL COUNT (BEAKER) 3.71 M/ L 4.63-6.08 L (test code = 761) HEMOGLOBIN (BEAKER) (test code = 11.7 GM/DL 13.7-17.5 L 410) HEMATOCRIT (BEAKER) (test code = 36.1 % 40.1-51.0 L 411) MEAN CORPUSCULAR VOLUME (BEAKER) 97.3 fL 79.0-92.2 H (test code = 753) MEAN CORPUSCULAR HEMOGLOBIN 31.5 pg 25.7-32.2 (BEAKER) (test code = 751) MEAN CORPUSCULAR HEMOGLOBIN CONC 32.4 GM/DL 32.3-36.5 (BEAKER) (test code = 752) RED CELL DISTRIBUTION WIDTH 13.2 % 11.6-14.4 (BEAKER) (test code = 412) PLATELET COUNT (BEAKER) (test 200 K/CU MM 150-450 code = 756) MEAN PLATELET VOLUME (BEAKER) 10.7 fL 9.4-12.4 (test code = 754) NUCLEATED RED BLOOD CELLS 0 /100 WBC 0-0 (BEAKER) (test code = 413) POCT-GLUCOSE [id number] 00:11:00 Test Item Value Reference Range Interpretation Comments POC-GLUCOSE METER 143 mg/dL 70-110 H TESTED AT [place] [address] [facility] (test code = [facility] 1538) [id number] POCT-GLUCOSE [id number] 17:16:00 Test Item Value Reference Range Interpretation Comments POC-GLUCOSE METER 261 mg/dL 70-110 H TESTED AT [place] [address] [facility] (test code = [facility] 1538) [id number] POCT-GLUCOSE [id number] 10:04:00 Test Item Value Reference Range Interpretation Comments POC-GLUCOSE METER 153 mg/dL 70-110 H TESTED AT [place] [address] [facility] (test code = [facility] 1538) [id number] BASIC METABOLIC [id number] 17:28:00 Test Item Value Reference Range Interpretation Comments SODIUM (BEAKER) 144 meq/L 136-145 (test code = 381) POTASSIUM (BEAKER) 4.3 meq/L 3.5-5.1 (test code = 379) CHLORIDE (BEAKER) 105 meq/L 98-107 (test code = 382) CO2 (BEAKER) (test 26 meq/L 22-29 code = 355) BLOOD UREA NITROGEN 12 mg/dL 7-21 (BEAKER) (test code = 354) CREATININE (BEAKER) 0.97 mg/dL 0.57-1.25 (test code = 358) GLUCOSE RANDOM 150 mg/dL 70-105 H (BEAKER) (test code = 652) CALCIUM (BEAKER) 10.7 mg/dL 8.4-10.2 H (test code = 697) EGFR (BEAKER) (test 75 mL/min/1.73 ESTIMA JEY GFR IS code = 1092) sq m NOT ACCURATE CREATININE CLEARANCE IN PREDICTING GLOMERULAR FILTRATION RATE . ESTIMATED GFR I S NOT APPLICABLE FOR DIALYSIS PATIEN TS. [id number] 17:26:00 Test Item Value Reference Range Interpretation Comments PARTIAL THROMBOPLASTIN TIME 28.7 seconds 22.5-36.0 (BEAKER) (test code = 760) PROTHROMBIN TIME/[id number] 17:25:00 Test Item Value Reference Range Interpretation Comments PROTIME (BEAKER) (test code = 14.8 seconds 11.7-14.7 H 759) INR (BEAKER) (test code = 370) 1.2 <=5.9 RECOMMENDED COUMADIN/WARFARIN INR THERAPY RANGESSTANDARD DOSE: 2.0 - 3.0 Includes: PROPHYLAXIS forvenous thrombosis, systemic embolization; TREATMENT for venous thrombosis and/or pulmonary embolus.HIGH RISK: Target INR is 2.5-3.5 for patients with mechanical heart valves.CBC W/PLT COUNT & AUTO DIFFERENTIAL 2018-04-30 17:17:00 Test Item Value Reference Range Interpretation Comments WHITE BLOOD CELL COUNT (BEAKER) 10.7 K/ L 3.5-10.5 H (test code = 775) RED BLOOD CELL COUNT (BEAKER) 4.15 M/ L 4.63-6.08 L (test code = 761) HEMOGLOBIN (BEAKER) (test code = 13.1 GM/DL 13.7-17.5 L 410) HEMATOCRIT (BEAKER) (test code = 40.8 % 40.1-51.0 411) MEAN CORPUSCULAR VOLUME (BEAKER) 98.3 fL 79.0-92.2 H (test code = 753) MEAN CORPUSCULAR HEMOGLOBIN 31.6 pg 25.7-32.2 (BEAKER) (test code = 751) MEAN CORPUSCULAR HEMOGLOBIN CONC 32.1 GM/DL 32.3-36.5 L (BEAKER) (test code = 752) RED CELL DISTRIBUTION WIDTH 13.6 % 11.6-14.4 (BEAKER) (test code = 412) PLATELET COUNT (BEAKER) (test 317 K/CU MM 150-450 code = 756) MEAN PLATELET VOLUME (BEAKER) 10.8 fL 9.4-12.4 (test code = 754) NUCLEATED RED BLOOD CELLS 0 /100 WBC 0-0 (BEAKER) (test code = 413) NEUTROPHILS RELATIVE PERCENT 70 % (BEAKER) (test code = 429) LYMPHOCYTES RELATIVE PERCENT 20 % (BEAKER) (test code = 430) MONOCYTES RELATIVE PERCENT 7 % (BEAKER) (test code = 431) EOSINOPHILS RELATIVE PERCENT 2 % (BEAKER) (test code = 432) BASOPHILS RELATIVE PERCENT 0 % (BEAKER) (test code = 437) NEUTROPHILS ABSOLUTE COUNT 7.44 K/ L 1.78-5.38 H (BEAKER) (test code = 670) LYMPHOCYTES ABSOLUTE COUNT 2.14 K/ L 1.32-3.57 (BEAKER) (test code = 414) MONOCYTES ABSOLUTE COUNT (BEAKER) 0.75 K/ L 0.30-0.82 (test code = 415) EOSINOPHILS ABSOLUTE COUNT 0.24 K/ L 0.04-0.54 (BEAKER) (test code = 416) BASOPHILS ABSOLUTE COUNT (BEAKER) 0.04 K/ L 0.01-0.08 (test code = 417) IMMATURE GRANULOCYTES-RELATIVE 0 % 0-1 PERCENT (BEAKER) (test code = 2801) RAD, CHEST, 2 [id number] 16:06:00Reason for exam:->screening prior to anesthesiaFINAL REPORT TECHNIQUE: Frontal and lateral views of the chest. INDICATION: 77-year-old man for preoperative evaluation for prostatectomy. COMPARISON: None. FINDINGS: LINES/TUBES: None. LUNGS: Linear scarring and/or subsegmental atelectasis in the left lower lung zone. No consol idation or pulmonary edema. PLEURA: No pleural effusion or pneumothorax. HEART AND MEDIASTINUM: The cardiomediastinal silhouette is at the upper limit of normal in size. Atherosclerotic calcifications in the thoracic aorta. SOFT TISSUES AND BONES: Degenerative changes of the visualized spine. Multiple fractured median sternotomy wires. Soft tissues are unremarkable. IMPRESSION:No acute cardiopulmonary abnormalities. Signed: Santa Bagley MDReport Verified Date/Time: 04/30/2018 16:06:13 Reading Location: [address] Radiology Reading Room CHEM [id number] 08:35:002.2[facility] ZwzzlupEZJSAQOMJYRE7353-10-53 08:35:0012.7[facility] MdlhptgJOOMVYBJVJFJ4903-62-41 08:35:0028[facility] BAGFWHENGSBQ0102-46-09 08:35:007.7[facility] ZzchjohCCIXUWGXXERA1167-98-72 08:35:0012[facility] WmbwyoeHWBVRAJCRMSZ1404-82-73 08:35:40434Plnjnayw [place] ZVQOHTZHKATH8896-40-48 08:35:72845Plrdkiqc WfhyfulGPEARGMVKBJX2319-40-42 08:35:003.7[facility] JidxbcyNHCHUAJIDTDD5583-56-22 08:35:0085[facility] XIZHEDRRYYVR0145-21-46 08:35:85597Wchjufmv QvzrcrzJKMIFRBTDUUO0432 08:35:000.81[facility] SbzvmixLSXNMAKCJB4227-67-23 08:35:008.2[facility] [place] SLNOQGZEXM1528-69-35 08:35:79121Cfghscmd NniqfedYTXJXFZEJN6043-56-19 08:35:00 14.0[facility] XmwggodGDJEPLTAII0683-37-16 08:35:009.7[facility]ann[facility]OLOGY 2018-01-02 08:35:003.93[facility] OmlbsilETFDSFHJFF3696-71-47 08:35:0012.0[facility] MxtsgsvKPOZGIYTPD1366-62-45 08:35:0035.4[facility] ZdfzkkuUJLYZQZKAB2235-35-36 08:35:0090.1[facility] QurteikUEKNBNSIJG1990-95-13 08:35:00 Test Item Value Reference Range Interpretation Comments MCH (test code = MCH) 30.6 pg 27.0-31.0 [facility] PjltywgNSDJMXASKR9820-60-82 08:35:0034.0[facility]ann[facility]MATOLOGY 2018-01-02 08:35:000.1[facility] CwhictlMHMSFDLNAY0608-51-19 08:35:0066.9[facility] CebtlnkBKKKYDHYTD5953-93-45 08:35:004.7[facility] YlfsanxLSYZAPAWJM8125-87-15 08:35:001.1[facility] NdeuatoLCHDFKEDMG7791-22-38 08:35:0019.1[facility] NAUMWFQKUN4271-58-69 08:35:008.2[facility] JbwntlzIMKHGDWYQA3210-79-72 08:35:006.5 [facility] LxbhbmwFTNNYCKYWL2736-65-81 08:35:000.5[facility]ann[facility]MATOLOGY 2018-01-02 08:35:000.8[facility] LfsrdwsJOUNLUMYBO8897-99-00 08:35:001.9[facility] HermannCARDIAC PMHOEDF6247-03-56 05:05:76684Jqahwkgk HermannCHEM AVMUF8803-00-62 05:05:001.4[facility] CzbupkxQUUBYSJRUFKM2293-66-16 05:05:0010.5[facility] DPRSYGKJXYRO3692-81-44 05:05:0033[facility] FwodanjMKWLSYGVRJNS4500-57-55 05:05:00 8.2[facility] LaezvvxWUWXMGMNCRCM4486-15-96 05:05:003.5[facility] OCNYWHHVNORZ1789-81-91 05:05:19578Wbqedqhp LedovgiBJIWXVVRBYYO8049-75-15 05:05:67036Osteajrl PldxfboMFRMNYXRUVQJ9425-37-00 05:05:0018[facility] SPOYSKEYRHJT2195-91-40 05:05:11910Cbgfxgyn DxgpcqjSWRKGDTOVPDX7621-83-98 05:05:0080[facility] FlfnbieGZKVDCQLBJJX4887-11-79 05:05:000.92[facility] GBYTPKFPXC7277-12-28 05:05:006.9[facility] SpebaprEKHYEZZSUB0850-01-27 05:05:001.9 [facility] KjroyitTJOMDXHKZU8069-57-81 05:05:000.8[facility]annHEMATOLOGY 2018-01-01 05:05:000.1[facility] FmycctnYKJMLEJRMR3153-48-33 05:05:000.6[facility] KgepwdoMATEOROVUN2090-06-42 05:05:0066.9[facility] XkriffjQWIXCXFFMS3357-75-09 05:05:000.9[facility] CcwkpkjVSKPMUHAKQ7772-16-36 05:05:005.6[facility] AXTETVYQAR1102-90-67 05:05:007.8[facility] PaymjofFGJBSDAUMZ9874-35-87 05:05:00 18.8[facility] FbcsyhwDQMAVVKMMU1384-73-10 05:05:0014.3[facility]annHEMATOLOGY 2018-01-01 05:05:31611Yiqafqoe HxabkcxSLRCODNVIE6668-72-33 05:05:008.2[facility] YggyoreTGYJJEUDJT7429-19-88 05:05:0010.3[facility] QxhvcfiZHXFADYRPT1910-58-41 05:05:0033.9[facility] LsxdixeMMGVJKRFAS0819-69-01 05:05:004.35[facility] TDIDQYIACS8144-38-34 05:05:0013.3[facility] EjpxeveBLEESESQSR6867-68-86 05:05:00 39.3[facility] XhffahfLWSDHGDAXY0576-34-11 05:05:0090.5[facility]annHEMATOLOGY 2018-01-01 05:05:00 Test Item Value Reference Range Interpretation Comments MCH (test code = MCH) 30.6 pg 27.0-31.0 [facility] AFHGR7331-95-42 04:41:87856Tmmeotlu [facility]UR[facility] AND CLKVS6723-48-61 04:41:0085[facility] INWIJ5345-53-09 04:41:00 Moderate *ABN*(12/31/17 11:41 PM)[facility] GYVJE1365-86-75 04:41:004.0[facility] LBHHP4633-28-46 04:41:00 Test Item Value Reference Range Interpretation Comments UA pH (test code = UA pH) 7.0 1 5.0-8.0 [facility] LNDRG6639-43-25 04:41:00Moderate *ABN*(12/31/17 11:41 PM)[facility] UFWTI5181-19-43 04:41:0072[facility] YNVDB6772-75-48 04:41:00Negative *NA*(12/31/17 11:41 PM)[facility] RZZSH6655-95-90 04:41:00Negative (12/31/17 11:41 PM)[facility] IEWMM4136-43-85 04:41:00Slight *ABN*(12/31/17 11:41 PM)[facility] WRSAK1135-28-70 04:41:00 Test Item Value Reference Range Interpretation Comments UA Spec Grav (test code = UA Spec 1.018 1 Grav) [facility] FYMDW8396-94-61 04:41:00Dark Yellow *NA*(12/31/17 11:41 PM)[facility] AbhgcnnFPUDMSPVVABW4721-70-67 15:30:004.3[facility] ZHDVZDKTORDB8996-94-19 15:30:95450Atgtqlgh AmyrurnPPOLNWGKIDRY5174-60-87 15:30:0028[facility] HbkbeljHWBLGJWBEFNP0035-56-53 15:30:009.8[facility] USVNUJGHFAJU4187-90-33 15:30:96226Zbgsompl UlfoiiiREQFNJCKNAYO7404-22-55 15:30:15925Ppdwkqtk VtwkrxvOZDRFNPIGSKY1901-10-60 15:30:0017[facility] ZBRNNKITSTXN9851-81-17 15:30:0063[facility] PokwcvwNZAPQANWPGOO0890-60-98 15:30:00 1.12[facility] ShughbzMJYCXLPLKAMW1666-39-67 15:30:0012.3[facility] TWMLQTGDLU7580-01-65 15:30:0043.7[facility] OhrpeptFOAVFORPJA4860-99-53 15:30:00 14.7[facility]
[2020-05-25 19:44] LABS: Absolute Lymphocytes (CBC) 0.6 K/uL (0.7-4.9); Hematocrit 37.2 % (39.6-49.0); Lymphocytes % 3.4 % (15.3-44.8); MPV 9.3 fL (7.6-11.3); RBC Red Blood Cell Count 4.05 M/uL (4.33-5.43)
[2020-05-25 19:49] LABS: Protime INR 1.57
--- NOTE | 2020-05-25 19:50 | RAD REPORT ---
EXAM DESCRIPTION: CT - Head Brain Wo Cont - 05/25/2020 7:40 pm CLINICAL HISTORY: Alteration of awareness/confusion COMPARISON: 2012 TECHNIQUE: Computed axial tomography of the head was obtained. IV contrast was not requested. All CT scans are performed using dose optimization technique as appropriate and may include automated exposure control or mA/KV adjustment according to patient size. FINDINGS: An intracranial bleed is not seen . The ventricles are normal in caliber. Small low-density area right caudate likely old lacunar infarct ion. 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 Coarse vascular calcifications are present. Mild to moderate low-density areas within periventricular, deep and subcortical white matter likely r epresent ischemic changes secondary to small vessel disease. Fluid within the sinuses/ mastoids is not seen. IMPRESSION: No acute intracranial abnormality is seen. If patient's symptoms persist MRI of the bra in would be recommended.
[2020-05-25 20:08] LABS: ALT/SGPT 12 U/L (12-78); AST/SGOT 9 U/L (15-37); Albumin 3.4 g/dL (3.4-5.0); Alkaline Phosphatase 76 U/L (45-117); BUN Blood Urea Nitrogen 19 mg/dL (7-18); Bicarbonate 20 mmol/L (21-32); Bilirubin Direct 0.3 mg/dL (0-0.2); Bilirubin Total 1.7 mg/dL (0.2-1.0); Blood Morphology Comment NOT SEEN (NOT SEEN); CKMB Creatine Kinase MB < 1.0 ng/mL (0.3-3.6); Creatine Phosphokinase 41 U/L (39-308); Glucose Level 171 mg/dL (74-106); Lipase 94 U/L (73-393); Platelet Estimate ADEQ; Potassium 3.6 mmol/L (3.5-5.1); Protein, Total 6.4 g/dL (6.4-8.2); Sodium Level 140 mmol/L (136-145); Troponin (Emerg Dept Use Only) 0.02 ng/mL (0.0-0.045); White Blood Cell Scan OK (OK)
[2020-05-25 20:10] LABS: Magnesium 1.1 mg/dL (1.8-2.4)
--- NOTE | 2020-05-25 20:55 | EDPHYS ---
[facility] Name: Abisai Salinas Age: 79 yrs Sex: Male : 1940 Arrival Date: 05/25/2020 Time: 18:38 Bed 4 Private MD: ED Physician Eduin Meade HPI: 05/26 06:43 This 79 yrs old Male presents to ER via EMS with complaints of Altered Mental tw4 Status. 06:43 The patient presents with decreased mental status, decreased responsiveness. Onset: The tw4 symptoms/episode began/occurred today. Possible causes: unknown. Associated signs and symptoms: The patient has no apparent associated signs or symptoms. Patient's baseline: Neuro: alert and fully oriented, Motor: no deficits, Ambulation: walks with assist only. The patient has not experienced similar symptoms in the past. 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 - Social history:: Smoking status: Patient denies any tobacco usage or history of. ROS: 05/26 06:43 Constitutional: Negative for fever, chills, and weight loss, Eyes: Negative for injury, tw4 pain, redness, and discharge, Cardiovascular: Negative for chest pain, palpitations, and edema, Respiratory: Negative for shortness of breath, cough, wheezing, and pleuritic chest pain, Abdomen/GI: Negative for abdominal pain, nausea, vomiting, diarrhea, and constipation, Back: Negative for injury and pain, MS/Extremity: Negative for injury and deformity, Skin: Negative for injury, rash, and discoloration. Neuro: Positive for altered mental status, Negative for dizziness, gait disturbance, headache, tinnitus, tremor. Exam: 06:43 Constitutional: This is a well developed, well nourished patient who is awake, alert, tw4 and in no acute distress. Head/Face: Normocephalic, atraumatic. Chest/axilla: Normal chest wall appearance and motion. Nontender with no deformity. No lesions are appreciated. Cardiovascular: Regular rate and rhythm with a normal S1 and S2. No gallops, murmurs, or rubs. Normal PMI, no JVD. No pulse deficits. Respiratory: Lungs have equal breath sounds bilaterally, clear to auscultation and percussion. No rales, rhonchi or wheezes noted. No increased work of breathing, no retractions or nasal flaring. Abdomen/GI: Soft, non-tender, with normal bowel sounds. No distension or tympany. No guarding or rebound. No evidence of tenderness throughout. Back: No spinal tenderness. No costovertebral tenderness. Full range of motion. MS/ Extremity: Pulses equal, no cyanosis. Neurovascular intact. Full, normal range of motion. 06:43 Neuro: Orientation: is normal, Mentation: is normal. Vital Signs: 05/25 18:47 BP 133 / 64; Pulse 90; Resp 22; Temp 98.6; Pulse Ox 95% on R/A; Pain 0/10; ll1 20:20 BP 125 / 70; Pulse 80; Resp 16; Pulse Ox 95% ; rr5 21:00 BP 118 / 81; Pulse 85; Resp 20; Pulse Ox 96% ; rr5 22:09 BP 142 / 69; Pulse 76; Resp 15; Temp 98.5; Pulse Ox 97% ; rr5 22:56 BP 148 / 80; Pulse 75; Resp 19; Pulse Ox 96% ; rr5 MDM: 19:14 Patient medically screened. tw4 05/26 06:43 Differential Diagnosis: CVA, overdose, pneumonia. Data reviewed: vital signs, nurses tw4 notes. Counseling: I had a detailed discussion with the patient and/or guardian regarding: the historical points, exam findings, and any diagnostic results supporting the discharge/admit diagnosis. Special discussion: I discussed with the patient/guardian in detail that at this point there is no indication for admission to the hospital. It is understood, however, that if the symptoms persist or worsen the patient needs to return immediately for re-evaluation. 05/25 19:16 Order name: Basic Metabolic Panel; Complete Time: 20:40 tw4 05/25 20:40 Interpretation: Normal except: CL 109; BUN 19; GLUC 171; CO2 20; GFR 79. tw4 05/25 19:16 Order name: CBC with Diff; Complete Time: 20:40 tw4 05/25 20:40 Interpretation: Normal except: WBC 17.5; RBC 4.05; HGB 12.6; HCT 37.2; MCV 92.0; LYM% tw4 3.4; ADELE% 90.5; NEUT A 15.8; LYMA 0.6. 05/25 19:16 Order name: Ckmb; Complete Time: 20:40 tw 05/25 19:16 Order name: CPK; Complete Time: 20:40 [facility] 05/25 19:16 Order name: Hepatic Function; Complete Time: 20:40 [facility] 05/25 20:40 Interpretation: Normal except: AST 9; BILIT 1.7; BILID 0.3. tw05/25 19:16 Order name: Lipase; Complete Time: 20:40 [facility] 05/25 19:16 Order name: Magnesium; Complete Time: 20:40 [facility] 05/25 20:40 Interpretation: MG 1.1. 05/25 19:16 Order name: Protime (+inr); Complete Time: 20:40 [facility] 05/25 20:41 Interpretation: Abnormal: PT 18.4. 05/25 19:16 Order name: Ptt, Activated; Complete Time: 20:40 05/25 19:16 Order name: Troponin (emerg Dept Use Only); Complete Time: 20:40 [facility] 05/25 19:16 Order name: Urine Microscopic Only; Complete Time: 22:36 [facility] 05/25 20:08 Order name: CBC Smear Scan; Complete Time: 20:40 [facility] 05/25 20:53 Order name: Blood Culture Adult (2) [facility] 05/25 21:04 Order name: Urine Dipstick--Ancillary (enter results) 2 05/25 19:16 Order name: CT Head Brain wo Cont; Complete Time: 20:40 [facility] 05/25 19:16 Order name: EKG; Complete Time: 19:17 [facility] 05/25 19:16 Order name: Cardiac monitoring; Complete Time: 19:38 [facility] 05/25 19:16 Order name: EKG - Nurse/Tech; Complete Time: 19:38 05/25 19:16 Order name: IV Saline Lock; Complete Time: 19:38 [facility] 05/25 19:16 Order name: Labs collected and sent; Complete Time: 19:38 [facility] 05/25 19:16 Order name: NPO; Complete Time: 19:38 [facility] 05/25 19:16 Order name: O2 Per Protocol; Complete Time: 19:38 05/25 19:16 Order name: O2 Sat Monitoring; Complete Time: 19:38 [facility] 05/25 19:16 Order name: Urine Dipstick-Ancillary (obtain specimen); Complete Time: 20:55 [facility] 05/25 20:50 Order name: Urine Dipstick-Ancillary (obtain specimen); Complete Time: 20:55 [facility] 05/25 20:50 Order name: CXR XRAY [facility] 05/25 22:44 Order name: COVID-19 rr5 Administered Medications: 05/25 21:25 Drug: Magnesium Sulfate 1 grams Route: IVPB; Infused Over: 1 hrs; Site: left wrist; rr5 22:25 Follow up: Response: No adverse reaction; IV Status: Completed infusion; IV Intake: rr5 100ml 21:36 Drug: Rocephin 1 grams Route: IV; Rate: calculated rate; Site: left wrist; rr5 22:30 Follow up: Response: No adverse reaction; IV Status: Completed infusion; IV Intake: [id number] Disposition: 05/25/20 20:55 Hospitalization ordered by Chip Palomares for Inpatient Admission. Preliminary diagnosis are Altered mental status, unspecified, Urinary tract infection, site not specified. - Bed requested for Telemetry/MedSurg (Inpatient). - Status is Inpatient Admission. rr5 - Condition is Stable. - Problem is an ongoing problem. - Symptoms are unchanged. Signatures: Dispatcher [employer] EDMS Jamarcus Stoner, METAL CANS SUPERVISOR-C METAL CANS SUPERVISOR-Cla1 Keila Knight RN RN tl1 Eduin Meade MD MD tw4 Chip Donato, MICHI RN rr5 Adela Ordonez RN RN ll1 Corrections: (The following items were deleted from the chart) 22:03 20:55 Hospitalization Ordered by Chip Palomares MD for Inpatient Admission. Preliminary tl1 diagnosis is Altered mental status, unspecified; Urinary tract infection, site not specified. Bed requested for Telemetry/MedSurg (Inpatient). Status is Inpatient Admission. Condition is Stable. Problem is an ongoing problem. Symptoms are unchanged. 4 22:57 22:03 05/25/2020 20:55 Hospitalization Ordered by Chip Palomares MD for Inpatient rr5 Admission. Preliminary diagnosis is Altered mental status, unspecified; Urinary tract infection, site not specified. Bed requested for Telemetry/MedSurg (Inpatient). Status is Inpatient Admission. Condition is Stable. Problem is an ongoing problem. Symptoms are unchanged. tl1
--- NOTE | 2020-05-25 20:55 | ER ---
Nurse's Notes [facility] Name: Abisai Salinas Age: 79 yrs Sex: Male : 1940 Arrival Date: 05/25/2020 Time: 18:38 Bed 4 Private MD: Diagnosis: Altered mental status, unspecified;Urinary tract infection, site not specified Presentation: 05/25 18:47 Chief complaint: Patient states: Lethargic upon EMS arrival. Found in A fib with ll1 frequent PVC's Rate 80-100. Fingerstick 209. No complaints of pain, just tired. 20 G R hand, 250ml bolus given en route. BP 107/60 upon EMS arrival. Oral temp for EMS 99.7. Coronavirus screen: Client denies travel out of the [place] in the last 14 days. fatigue, At this time, the client does not indicate any symptoms associated with coronavirus-19. Ebola Screen: Patient denies travel to an Ebola-affected area in the 21 days before illness onset. Initial Sepsis Screen: Does the patient meet any 2 criteria? No. Patient's initial sepsis screen is negative. Risk Assessment: Do you want to hurt yourself or someone else? Patient reports no desire to harm self or others. Onset of symptoms was May 25, 2020. 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 - Social history:: Smoking status: Patient denies any tobacco usage or history of. Screenin:18 Abuse screen: Denies threats or abuse. Denies injuries from another. Nutritional rr5 screening: No deficits noted. Tuberculosis screening: No symptoms or risk factors identified. Fall Risk IV access (20 points). Mental Status- Overestimates/Forgets Limitations (15 pts.). Total Lombardi Fall Scale indicates Low Risk Score (25-44 pts). Fall prevention measures have been instituted. Side Rails Up X 2 Placed close to Nursing Station Frequent Obs/Assesments occuring As available Patient and Family Educated on Fall Prevention Program and strategies. Assessment: 19:15 General: Appears in no apparent distress. comfortable, Behavior is calm, cooperative. rr5 Pain: Denies pain. Neuro: Level of Consciousness is awake, alert, obeys commands, Oriented to person, place, situation, Facial symmetry appears normal. Cardiovascular: Capillary refill < 3 seconds Patient's skin is warm and dry. Respiratory: Airway is patent Respiratory effort is even, unlabored, Respiratory pattern is regular, symmetrical. GI: No signs and/or symptoms were reported involving the gastrointestinal system. : No signs and/or symptoms were reported regarding the genitourinary system. EENT: No signs and/or symptoms were reported regarding the EENT system. Derm: Skin is fragile, is thin, Skin temperature is warm. Musculoskeletal: Circulation, motion, and sensation intact. Capillary refill < 3 seconds. 21:15 Reassessment: Patient appears in no apparent distress at this time. Patient is alert, rr5 oriented x 3, equal unlabored respirations, skin warm/dry/pink. hospitalist at bedside for admission. family member updated. 22:30 Reassessment: Patient appears in no apparent distress at this time. Patient is alert, rr5 oriented x 3, equal unlabored respirations, skin warm/dry/pink. awaiting for floor accpetance. Vital Signs: 18:47 BP 133 / 64; Pulse 90; Resp 22; Temp 98.6; Pulse Ox 95% on R/A; Pain 0/10; ll1 20:20 BP 125 / 70; Pulse 80; Resp 16; Pulse Ox 95% ; rr5 21:00 BP 118 / 81; Pulse 85; Resp 20; Pulse Ox 96% ; rr5 22:09 BP 142 / 69; Pulse 76; Resp 15; Temp 98.5; Pulse Ox 97% ; rr5 22:56 BP 148 / 80; Pulse 75; Resp 19; Pulse Ox 96% ; rr5 ED Course: 18:38 Patient arrived in ED. ss 18:49 Triage completed. ll1 18:50 Arm band placed on Patient placed in an exam room, on a stretcher. ll1 19:06 Chip Donato, RN is Primary Nurse. rr5 19:10 Patient has correct armband on for positive identification. Placed in gown. Bed in low rr5 position. Call light in reach. Side rails up X2. potline monitor on. Pulse ox on. NIBP on. 19:13 Eduin Meade MD is Attending Physician. tw4 19:18 Maintain EMS IV. Dressing intact. Good blood return noted. Site clean \T\ dry. Gauge \T\ rr 5 site: g20 right hand. 19:40 CT Head Brain wo Cont In Process Unspecified. EDMS 20:10 Notified ED physician of a critical lab result(s). Magnesium of 1.1. bb 20:53 Chip Palomares MD is Hospitalizing Provider. tw4 21:12 CXR XRAY In Process Unspecified. EDMS 21:25 First set of blood cultures drawn by me. rr5 21:25 Inserted saline lock: 22 gauge in left wrist, using aseptic technique. rr5 21:30 Second set of blood cultures drawn by me. rr5 21:52 No provider procedures requiring assistance completed. Patient admitted, IV remains in rr5 place. intact, No redness/swelling at site. 22:55 covid. rr5 Administered Medications: 21:25 Drug: Magnesium Sulfate 1 grams Route: IVPB; Infused Over: 1 hrs; Site: left wrist; rr5 22:25 Follow up: Response: No adverse reaction; IV Status: Completed infusion; IV Intake: rr5 100ml 21:36 Drug: Rocephin 1 grams Route: IV; Rate: calculated rate; Site: left wrist; rr5 22:30 Follow up: Response: No adverse reaction; IV Status: Completed infusion; IV Intake: 23hxjw4 Intake: 22:25 IV: 100ml; Total: 100ml. rr5 22:30 IV: 10ml; Total: 110ml. rr5 Outcome: 20:55 Decision to Hospitalize by Provider. tw4 22:55 Admitted to Med/surg accompanied by tech, via stretcher, room 223, with chart, Report rr5 called to sylvester 22:55 Condition: stable 22:55 Instructed on the need for admit. 22:57 Patient left the ED. rr5 Signatures: Dispatcher [employer] Glory Brennan RN RN Josefa Holbrook RN RN ss Wadley, Terrence, MD MD tw4 Chip Donato RN RN rr5 Adela Ordonez RN RN ll1 Corrections: (The following items were deleted from the chart) 18:51 18:47 Chief complaint: Patient states: Lethargic upon EMS arrival. Found in A fib with ll1 frequent PVC's Rate 80-100. Fingerstick 209. No complaints of pain, just tired. 20 G R hand, 250ml bolus given en route. BP 107/60 upon EMS arrival. Oral temp for EMS 99.7. ll1 18:51 18:47 Coronavirus screen: Client denies travel out of the [place] in the last 14 days. At ll1 this time, the client does not indicate any symptoms associated with coronavirus-19. ll1
[2020-05-25] MEDS ORDERED: MAGNESIUM SULFATE 1 gm IVPB 1 GM/100 ML BAG IV ONE (21:08)
[2020-05-25] MEDS ORDERED: CEFTRIAXONE/SWI 1gm 1 GM/10 ML SYR ONE (21:08)
[2020-05-25] MEDS ORDERED: NA CHLORIDE 0.9% 500 ML ONE (21:09)
[2020-05-25 21:48] LABS: Urine Culture Reflex Order REFLEXED
[2020-05-25 21:49] LABS: Urine RBC <5 /HPF (NONE SEEN); Urine Urothelial Cells <5 /HPF (NONE SEEN)
[2020-05-25 21:49] LABS: Urine Blood NEGATIVE (NEG); Urine Glucose 2+ (NEG); Urine Protein 1+ (NEG); Urine Specific Gravity 1.025 (1.005-1.030); Urine pH 5.5 (5.0-7.0)
[2020-05-25 21:50] LABS: Urine Bacteria <20 /HPF (NONE SEEN)
--- NOTE | 2020-05-25 22:03 | P.HP ---
Certification for Inpatient Patient admitted to: Inpatient With expected LOS: >2 Midnights Patient will require the following post-hospital care: None Practitioner: I am a practitioner with admitting privileges, knowledge of patient current condition, hospital course, and medical plan of care. Services: Services provided to patient in accordance with Admission requirements found in Title 42 Section 412.3 of the Code of Federal Regulations <Jamarcus Stoner - Last Filed: 05/25/20 22:09> Patient History Date of Service: 05/25/20 Primary Care Provider: Out of town Reason for admission: metabolic encephalopathy History of Present Illness: 79-year-old male with history of atrial fibrillation on chronic anticoagulation therapy, diabetes mellitus type 2, hypertension, hyperlipidemia, bladder injury from hernia repair complication presents emergency department with chief complaint of altered mental status. Patient lives with his and granddaughter who report that at home he was acting more confused than usual although he does have some baseline intermittent confusion. Patient was also very weak, having difficulty getting around. Family reports patient has been like this in the past when he has had urinary tract infections. Family reports that the patient had a hernia repair at [facility] in [place] in 2018 and there is a complication of all the in the bladder. During his evaluation in the emergency department patient was found to have elevated white blood cell count of 17. Urinalysis showed leukocytes. Urine sent off for microscopic evaluation and culture. Blood cultures obtained. ED provider wishes to admit patient for further evaluation and management. When I saw the patient in the emergency department he was awake, alert, oriented times 2-3 with some confusion. Patient is slow to respond. Patient reports that he has been feeling very weak and having difficulty getting around at home. Patient denies any abdominal pain at this time. Patient does not appear septic at this time. Patient be admitted for further evaluation and management. - Past Medical/Surgical History -: Diabetes mellitus type 2 -: Hypertension -: BPH -: Athersclerosis -: Melanoma -: Hyperlipidemia -: Atrial fibrillation on chronic anticoagulation therapy -: Prostate Surgery -: Hernia Repair -: Open Heart Sx -: Carotid Artery Stent -: 7x stents -: 2x melanoma removal on head Psychosocial/ Personal History: Patient lives at home with his and granddaughter - Family History Family History: Reviewed- Non-Contributory - Social History Smoking Status: Former smoker Alcohol use: No CD- Drugs: No Caffeine use: Yes Place of Residence: Home <Jamarcus Stoner - Last Filed: 05/25/20 22:09> Date of Service: 05/26/20 <Chip Palomares - Last Filed: 05/26/20 16:22> Allergies No Known Allergies Allergy (Verified 04/16/18 11:53) Home Medications: Atorvastatin Calcium [Lipitor] 40 mg PO BEDTIME 05/26/20 Insulin Aspart [Novolog Flexpen] 5 unit SQ TIDWM 05/26/20 Lisinopril [Zestril] 40 mg PO DAILY 05/26/20 Memantine HCl 1 tab PO DAILY 05/26/20 Metformin HCl 1,000 mg PO BID 05/26/20 Metoprolol Succinate [Toprol Xl] 100 mg PO DAILY 05/26/20 Review of Systems 10-point ROS is otherwise unremarkable General: Chills, Weakness, Malaise, As per HPI <Jamarcus Stoner - Last Filed: 05/25/20 22:09> Physical Examination - Physical Exam General: Alert, In no apparent distress, Oriented x3 HEENT: Atraumatic, Normocephalic, PERRLA, Other (Mucous membranes dry) Neck: Supple Respiratory: Clear to auscultation bilaterally, Normal air movement Cardiovascular: Normal pulses, Regular rate/rhythm, Normal S1 S2, Systolic murmur Capillary refill: <2 Seconds Gastrointestinal: Normal bowel sounds, Soft and benign Musculoskeletal: No contractures, No erythema, No tenderness Integumentary: No significant lesion, No tenderness/swelling, No erythema Neurological: Normal speech, Normal strength at 5/5 x4 extr, Normal tone, Normal affect - Studies Laboratory Data (last 24 hrs) 05/25/20 19:35: PT 18.4 H, INR 1.57, APTT 30.2 05/25/20 19:35: WBC 17.5 H, Hgb 12.6 L, Hct 37.2 L, Plt Count 218 05/25/20 19:35: Sodium 140, Potassium 3.6, BUN 19 H, Creatinine 0.92, Glucose 171 H, Magnesium 1.1 L*, Total Bilirubin 1.7 H, AST 9 L, ALT 12, Alkaline Phosphatase 76, Lipase 94 <Jamarcus Stoner - Last Filed: 05/25/20 22:09> - Studies Laboratory Data (last 24 hrs) 05/25/20 19:35: PT 18.4 H, INR 1.57, APTT 30.2 05/25/20 19:35: WBC 17.5 H, Hgb 12.6 L, Hct 37.2 L, Plt Count 218 05/25/20 19:35: Sodium 140, Potassium 3.6, BUN 19 H, Creatinine 0.92, Glucose 171 H, Magnesium 1.1 L*, Total Bilirubin 1.7 H, AST 9 L, ALT 12, Alkaline Phosphatase 76, Lipase 94 <Chip Palomares - Last Filed: 05/26/20 16:22> Assessment and Plan - Plan Assessment Metabolic encephalopathy likely secondary to urinary tract infection Hypomagnesemia General weakness and limited mobility, fall risk Atrial fibrillation on chronic anticoagulation therapy Hypertension Hyperlipidemia BPH Dementia Plan Metabolic encephalopathy likely secondary to urinary tract infection: Blood in urine cultures obtained in the emergency department, patient started on Rocephin at this time. Have ordered CT scan to evaluate abdomen pelvis due to history of hernia repair of complications involving bladder. Patient's mental status improving, likely related to urinary tract infection. Will need to follow up on blood and urine cultures. Hypomagnesemia: Magnesium 1.1 patient given 1 g magnesium IV in the emergency department, magnesium protocol in place. General weakness and limited mobility, fall risk: Will have patient assessed by physical therapy. Discuss case with family who are open to the idea of having home health. reed worker consult in place for possible home health. Atrial fibrillation on chronic anticoagulation therapy: Continue Eliquis, patient noted to have a systolic murmur. Patient unable to tell me if this is new. Will obtain echocardiogram to evaluate. Hypertension: Continue metoprolol, lisinopril. Hyperlipidemia: Continue atorvastatin BPH: Obtain and continue patient's home medication. Dementia: Continue home medication. Discharge Plan: Home Plan to discharge in: Greater than 2 days - Advance Directives Does patient have a Living Will: No Does patient have a Durable POA for Healthcare: No - Code Status/Comfort Care Code Status Assessed: Yes (Patient is full code) Critical Care: No Time Spent Managing Pts Care (In Minutes): 55 <Jamarcus Stoner - Last Filed: 05/25/20 22:09> Physician Review Additional Text: Plan of care discussed with Jamarcus Stoner, and I agree with the management plan as noted above. <Chip Palomares - Last Filed: 05/26/20 16:22>
[2020-05-25] MEDS ORDERED: ACETAMINOPHEN 500 MG TAB PO PRN (23:39)
[2020-05-25] MEDS ORDERED: ONDANSETRON 4 MG/2 ML VIAL IV PRN (23:39)
[2020-05-25 23:40] VITALS: BMI 32.5
[2020-05-26 04:34] LABS: Absolute Lymphocytes (CBC) 1.2 K/uL (0.7-4.9); Basophils % 0.6 % (0-1.3); Hematocrit 34.2 % (39.6-49.0); Lymphocytes % 7.1 % (15.3-44.8); MPV 9.2 fL (7.6-11.3); RBC Red Blood Cell Count 3.74 M/uL (4.33-5.43)
[2020-05-26 04:59] LABS: Magnesium 1.5 mg/dL (1.8-2.4); Potassium 3.6 mmol/L (3.5-5.1)
[2020-05-26] MEDS: METOPROLOL XL 100 MG TAB PO SCH (05:49)
[2020-05-26] MEDS: NA CHLORIDE 0.9% 1,000 ML IV SCH ×3 (05:50→16:06)
[2020-05-26] MEDS ORDERED: Magnesium Sulfate 2gm IVPB 2 G/50 ML BAG IV ONE (06:29)
[2020-05-26] MEDS ORDERED: POTASSIUM CL SA 10 MEQ TAB PO ONE (06:29)
[2020-05-26] MEDS: INSULIN -REGULAR HUMAN 50 UNIT/0.5 ML ML SQ SCH ×4 (08:00→21:00)
[2020-05-26] MEDS: lisinopriL 20 MG TAB PO SCH (08:01)
[2020-05-26] MEDS: MEMANTINE HCL 10 MG TABLET PO SCH (08:01)
[2020-05-26] MEDS: APIXABAN 5 MG TABLET PO SCH ×2 (08:02→21:26)
--- NOTE | 2020-05-26 08:37 | RAD REPORT ---
EXAM DESCRIPTION: CTAbdomen Pelvis W Contrast - 05/26/2020 3:19 am CLINICAL HISTORY: Abdominal pain. Leukocytosis, hx of hernia repair with bladder inj COMPARISON: Abdomen Pelvis W Contrast dated 07/25/2016 TECHNIQUE: Biphasic CT imaging of the abdomen and pelvis was performed with 100 ml non-ionic IV cont rast. All CT scans are performed using dose optimization technique as appropriate and may include automated exposure control or mA/KV adjustment according to patient size. FINDINGS: Airspace infiltrate is present in both lung bases, greater on the left, most compatible wi th pneumonia.Small hiatal hernia. The liver, spleen, pancreas, adrenal glands are within normal limits. Small bilateral renal cysts are present. Small calculi are present in the inferior right kidney without hydronephrosis No bowel obstruction, free air, free fluid or abscess. Prominent fecal retention in the colon. The ap pendix is normal. Sigmoid diverticulosis without diverticulitis. No evidence of significant lymphaden opathy. Inferior anterior aspect of the pelvis shows hernia repair changes. Mild fluid is present in the carlo on measuring 11 mm in thickness. Degenerative changes are present in the lumbar spine. IMPRESSION: Airspace infiltrate is present in both lung bases, greater on the left, suspicious for a spiration /pneumonia. Prominent fecal retention is seen throughout the colon.
--- NOTE | 2020-05-26 08:40 | RAD REPORT ---
EXAM DESCRIPTION: RAD - Chest Single View - 05/25/2020 9:14 pm CLINICAL HISTORY: leukocytosis Chest pain. COMPARISON: Chest Single View dated 12/29/2017; Abdomen 1 View (KUB) dated 03/01/2017; Chest Single Vi ew dated 12/01/2016 FINDINGS: Portable technique limits examination quality. The lungs are mildly emphysematous but grossly clear. The heart is moderately enlarged in size with c hanges of a prior CABG. No displaced fractures. IMPRESSION: COPD.
[2020-05-26] MEDS ORDERED: CEFTRIAXONE 1 GM/NS 50 ML 1 GM/50 ML BAG IV SCH (09:00)
[2020-05-26] MEDS: METRONIDAZOLE 500mg IVPB 500 MG/100 ML BAG IV SCH (16:06)
--- NOTE | 2020-05-26 16:30 | P.PN ---
Subjective Date of Service: 05/26/20 Primary Care Provider: Out of town Chief Complaint: metabolic encephalopathy Subjective: No new changes Physical Examination - Vital Signs Temperature: 99.0 F Blood Pressure: 119/57 Pulse: 61 Respirations: 20 Pulse Ox (%): 94 - Physical Exam General: Alert, In no apparent distress, Oriented x2, Demented (Pleasantly demented) HEENT: Mucous membr. moist/pink, Sclerae nonicteric Respiratory: Clear to auscultation bilaterally Cardiovascular: No edema, Irregular heart rate/rhythm Gastrointestinal: Soft and benign, Non-distended, No tenderness Musculoskeletal: No tenderness Integumentary: No rashes Neurological: Normal speech, Dementia - Studies Laboratory Data (last 24 hrs) 05/25/20 19:35: PT 18.4 H, INR 1.57, APTT 30.2 05/25/20 19:35: WBC 17.5 H, Hgb 12.6 L, Hct 37.2 L, Plt Count 218 05/25/20 19:35: Sodium 140, Potassium 3.6, BUN 19 H, Creatinine 0.92, Glucose 171 H, Magnesium 1.1 L*, Total Bilirubin 1.7 H, AST 9 L, ALT 12, Alkaline Phosphatase 76, Lipase 94 Assessment & Plan Physician Review Additional Text: Metabolic encephalopathy likely secondary to urinary tract infection Hypomagnesemia General weakness and limited mobility, fall risk Atrial fibrillation on chronic anticoagulation therapy Hypertension Hyperlipidemia BPH Dementia Plan Metabolic encephalopathy likely secondary to urinary tract infection: Pneumonia, possible aspiration -Started on Rocephin -urine cultures obtained in the emergency department -CT abdomen pelvis done this morning, notable for some bilateral opacities in the lower lung bases concerning for aspiration pneumonia -add Flagyl -follow up on cultures -will get swallow eval Hypomagnesemia: -Magnesium 1.1 patient given 1 g magnesium IV in the emergency department, magnesium protocol in place. General weakness and limited mobility, fall risk: -Will have patient assessed by physical therapy. Discuss case with family who are open to the idea of having home health. studio set up worker consult in place for possible home health. Atrial fibrillation on chronic anticoagulation therapy: -Continue Eliquis, patient noted to have a systolic murmur. Patient unable to tell me if this is new. Echocardiogram ordered Hypertension: Continue metoprolol, lisinopril. Hyperlipidemia: Continue atorvastatin BPH: Obtain and continue patient's home medication. Dementia: Continue home medication. Dispo: continue IV antibiotics for pneumonia/UTI, awaiting cultures, remains with confusion on top of dementia may benefit from home health Time Spent Managing Pts Care (In Minutes): 35
[2020-05-26] MEDS: ATORVASTATIN 40 MG TAB PO SCH (21:26)
[2020-05-26] MEDS: CEFTRIAXONE/SWI 1gm 1 GM/10 ML SYR IV SCH (21:26)
[2020-05-27] MEDS: METRONIDAZOLE 500mg IVPB 500 MG/100 ML BAG IV SCH ×3 (01:03→16:00)
[2020-05-27] MEDS: NA CHLORIDE 0.9% 1,000 ML IV SCH ×4 (01:04→22:53)
[2020-05-27 05:18] LABS: Absolute Lymphocytes (CBC) 1.1 K/uL (0.7-4.9); Basophils % 0.6 % (0-1.3); Hematocrit 33.6 % (39.6-49.0); Lymphocytes % 8.3 % (15.3-44.8); MPV 9.6 fL (7.6-11.3); RBC Red Blood Cell Count 3.63 M/uL (4.33-5.43)
[2020-05-27 05:23] LABS: Magnesium 1.9 mg/dL (1.8-2.4); Potassium 4.2 mmol/L (3.5-5.1)
[2020-05-27] MEDS: METOPROLOL XL 100 MG TAB PO SCH (06:34)
--- NOTE | 2020-05-27 06:51 | ECHO ---
HEIGHT: 6 ft 0 in WEIGHT: 240 lb 4.8 oz DATE OF STUDY: 05/26/[address]: Jamarcus Stoner NP 2-DIMENSIONAL: YES M.MODE: YES DOPPLER: YES COLOR FLOW: YES TDS: PORTABLE: DEFINITY: BUBBLE STUDY: DIAGNOSIS: MURMUR CARDIAC HISTORY: CATHERIZATION: SURGERY: PROSTHETIC VALVE: PACEMAKER: MEASUREMENTS (cm) DIASTOLIC (NORMALS) SYSTOLIC (NORMALS) IVSd 1.3 (0.6-1.2) LA Diam 4.3 (1.9-4.0) LVEF 50-55 % LVIDd 4.3 (3.5-5.7) LVIDs 3.7 (2.0-3.5) %FS 13% LVPWd 1.2 (0.6-1.2) Ao Diam 3.3 (2.0-3.7) 2 DIMENSIONAL ASSESSMENT: RIGHT ATRIUM: NORMAL LEFT ATRIUM: ENLARGED RIGHT VENTRICLE: NORMAL LEFT VENTRICLE: LOW NORMAL TRICUSPID VALVE: NORMAL MITRAL VALVE: MILD MITRAL REGURGITATION PULMONIC VALVE: MODERATE TRICUSPID REGURGITATION AORTIC VALVE: NORMAL PERICARDIAL EFFUSION: NONE AORTIC ROOT: NORMAL LEFT VENTRICULAR WALL MOTION: MILD BASAL SEPTAL HYPOKNIESIS DOPPLER/COLOR FLOW: DIASTOLIC DYSFUNCTION COMMENTS: LOW NORMAL LEFT VENTRICULAR EJECTION FRACTION 50-55% WITH BASAL SEPTAL HYPOKINESIS. MODERATE TRICUSPID REGURGITATION, MILD MITRAL REGURGITATION. LEFT ATRIAL ENLARGEMENT. DIASTOLIC DYSFUNCTION WITH RIGHT VENTRICULAR SYSTOLIC PRESSURE OF 35mmHg AND RIGHT ATRIAL PRESSURE. TECHNOLOGIST: SURAJ CHILDS
[2020-05-27] MEDS: INSULIN -REGULAR HUMAN 50 UNIT/0.5 ML ML SQ SCH ×4 (07:30→21:00)
[2020-05-27] MEDS: lisinopriL 20 MG TAB PO SCH (09:02)
[2020-05-27] MEDS: MEMANTINE HCL 10 MG TABLET PO SCH (09:02)
[2020-05-27] MEDS: APIXABAN 5 MG TABLET PO SCH ×2 (09:02→21:55)
--- NOTE | 2020-05-27 10:49 | P.PN ---
Subjective Date of Service: 05/27/20 Primary Care Provider: Out of town Chief Complaint: metabolic encephalopathy Subjective: Improving (more alert and oriented this morning. reports breathing comfortably, denies dysuria denies fevers/chills, nausea/vomiting) Physical Examination - Vital Signs Temperature: 97.9 F Blood Pressure: 146/95 Pulse: 83 Respirations: 18 Pulse Ox (%): 95 - Physical Exam General: Alert, In no apparent distress, Oriented x3 HEENT: Sclerae nonicteric Neck: Supple Respiratory: Normal air movement, Diminished (at bases bilaterally) Cardiovascular: No edema, Irregular heart rate/rhythm Gastrointestinal: Soft and benign, Non-distended, No tenderness Musculoskeletal: No erythema Integumentary: No rashes Neurological: Normal speech, Normal affect Assessment & Plan Physician Review Additional Text: Metabolic encephalopathy likely secondary to urinary tract infection Hypomagnesemia General weakness and limited mobility, fall risk Atrial fibrillation on chronic anticoagulation therapy Hypertension Hyperlipidemia BPH Dementia Plan Metabolic encephalopathy likely secondary to urinary tract infection: Pneumonia, possible aspiration -Started on Rocephin -urine cultures obtained in the emergency department - mixed bhavesh -CT abdomen/pelvis-airspace infiltrate is present in both lung bases, greater on the left, suspicious for aspiration/pneumonia -added Flagyl on 05/26 -follow up on cultures; Anaerobic & Aerobic bottles: Gram positive cocci in clusters -pending swallow eval, pt reports no recent h/o choking / difficulty swallowing -Leukocytosis improving Hypomagnesemia: -Magnesium 1.1 patient given 1 g magnesium IV in the emergency department, magnesium protocol in place. General weakness and limited mobility, fall risk: -PT consulted. family who are open to the idea of having home health. farmworkers consult in place for possible home health. Atrial fibrillation on chronic anticoagulation therapy: -Continue Eliquis, patient noted to have a systolic murmur. Echocardiogram ordered Hypertension: Continue metoprolol, lisinopril. Hyperlipidemia: Continue atorvastatin BPH: Obtain and continue patient's home medication. Dementia: Continue home medication. Dispo: continue IV antibiotics for pneumonia/UTI, awaiting cultures, remains with confusion on top of dementia may benefit from home health. possible dc home tomorrow Time Spent Managing Pts Care (In Minutes): 35
[2020-05-27] MEDS: DOCUSATE NA 100 MG CAP PO SCH (21:55)
[2020-05-27] MEDS: ATORVASTATIN 40 MG TAB PO SCH (21:55)
[2020-05-27] MEDS: CEFTRIAXONE/SWI 1gm 1 GM/10 ML SYR IV SCH (21:57)
[2020-05-28] MEDS: METRONIDAZOLE 500mg IVPB 500 MG/100 ML BAG IV SCH ×3 (01:20→16:26)
[2020-05-28] MEDS: NA CHLORIDE 0.9% 1,000 ML IV SCH ×4 (01:39→20:44)
[2020-05-28] MEDS: METOPROLOL XL 100 MG TAB PO SCH (05:47)
[2020-05-28 06:00] LABS: Basophils % 0.5 % (0-1.3); Hematocrit 33.8 % (39.6-49.0); Lymphocytes % 8.6 % (15.3-44.8); MPV 9.5 fL (7.6-11.3); RBC Red Blood Cell Count 3.66 M/uL (4.33-5.43)
[2020-05-28 06:21] LABS: Potassium 3.8 mmol/L (3.5-5.1)
[2020-05-28] MEDS: INSULIN -REGULAR HUMAN 50 UNIT/0.5 ML ML SQ SCH ×4 (07:30→20:43)
--- NOTE | 2020-05-28 08:33 | P.PN ---
Subjective Date of Service: 05/28/20 Primary Care Provider: Out of town Chief Complaint: metabolic encephalopathy Subjective: Improving (Overnight with some confusion, was trying to slide out of bed. Improved when arrived at the hospital and stayed at bedside He is feeling better, breathing more comfortably, denies dysuria, chest pain) Physical Examination - Vital Signs Temperature: 97.4 F Blood Pressure: 148/68 Pulse: 76 Respirations: 22 Pulse Ox (%): 93 - Physical Exam General: In no apparent distress, Oriented x2, Confused HEENT: Mucous membr. moist/pink, Sclerae nonicteric Neck: No LAD Respiratory: Clear to auscultation bilaterally, Diminished (Slightly at bases bilaterally) Cardiovascular: No edema, Normal S1 S2, Irregular heart rate/rhythm Gastrointestinal: Soft and benign, Non-distended, No tenderness Musculoskeletal: No erythema, No tenderness Integumentary: No rashes Neurological: Normal speech, Normal affect - Studies Microbiology Data (last 24 hrs): 05/25/20 20:50 Clean Catch Urine [place] Count - Final >100,000 CFU/ML. 05/25/20 20:50 Clean Catch Urine - Final MIXED BHAVESH. Assessment & Plan Physician Review Additional Text: Metabolic encephalopathy likely secondary to urinary tract infection Hypomagnesemia General weakness and limited mobility, fall risk Atrial fibrillation on chronic anticoagulation therapy Hypertension Hyperlipidemia BPH Dementia Plan Metabolic encephalopathy likely secondary to urinary tract infection: Pneumonia, possible aspiration -Started on Rocephin -urine cultures obtained in the emergency department - mixed bhavesh -CT abdomen/pelvis-airspace infiltrate is present in both lung bases, greater on the left, suspicious for aspiration/pneumonia -added Flagyl on 05/26 -follow up on cultures; Anaerobic & Aerobic bottles: Gram positive cocci in clusters - crawling coag-negative staph - contaminant - reports the patient was coughing and more weak in the 2 days prior to admission, no emesis -Leukocytosis improving -mentation is significantly improved, with a bedside and had long discussion. Patient is nearing his baseline Hypomagnesemia: -resolved with supplementation General weakness and limited mobility, fall risk: -PT consulted. family who are open to the idea of having home health. fish house worker consulted -anticipate discharge home tomorrow, will benefit from home physical therapy Atrial fibrillation on chronic anticoagulation therapy: -Continue Eliquis -TTE (05/26) EF: 50-55% with basal septal hypokinesis, moderate tricuspid regurgitation, mild mitral regurgitation. Left atrial enlargement. Diastolic dysfunction with RV systolic pressure of 35mmHg Hypertension: Continue metoprolol, lisinopril. Hyperlipidemia: Continue atorvastatin BPH: Obtain and continue patient's home medication. Dementia: Continue home medication. Dispo: continue IV antibiotics for aspiration pneumonia, awaiting cultures, confusion improving, continues with generalized weakness likely dc tomorrow, pending final cultures, weakness slowly improving, will need home PT Time Spent Managing Pts Care (In Minutes): 40
[2020-05-28] MEDS ORDERED: POTASSIUM CL SA 10 MEQ TAB PO ONE (09:00)
[2020-05-28] MEDS: APIXABAN 5 MG TABLET PO SCH ×2 (09:21→20:43)
[2020-05-28] MEDS: MEMANTINE HCL 10 MG TABLET PO SCH (09:21)
[2020-05-28] MEDS: DOCUSATE NA 100 MG CAP PO SCH ×2 (09:21→20:43)
[2020-05-28] MEDS: lisinopriL 20 MG TAB PO SCH (09:21)
[2020-05-28] MEDS: CEFTRIAXONE/SWI 1gm 1 GM/10 ML SYR IV SCH (20:43)
[2020-05-28] MEDS: ATORVASTATIN 40 MG TAB PO SCH (20:43)
[2020-05-29] MEDS: METRONIDAZOLE 500mg IVPB 500 MG/100 ML BAG IV SCH ×2 (00:20→09:03)
[2020-05-29] MEDS: NA CHLORIDE 0.9% 1,000 ML IV SCH ×2 (02:27→07:39)
[2020-05-29] MEDS: METOPROLOL XL 100 MG TAB PO SCH (05:23)
[2020-05-29 06:17] LABS: Absolute Lymphocytes (CBC) 1.1 K/uL (0.7-4.9); Hematocrit 36.3 % (39.6-49.0); Lymphocytes % 11.4 % (15.3-44.8); MPV 9.5 fL (7.6-11.3); RBC Red Blood Cell Count 3.93 M/uL (4.33-5.43)
[2020-05-29 06:35] LABS: Magnesium 1.7 mg/dL (1.8-2.4); Potassium 3.7 mmol/L (3.5-5.1)
[2020-05-29] MEDS: INSULIN -REGULAR HUMAN 50 UNIT/0.5 ML ML SQ SCH ×2 (07:30→11:30)
[2020-05-29] MEDS ORDERED: POTASSIUM CL SA 10 MEQ TAB PO ONE (09:00)
[2020-05-29] MEDS ORDERED: MAGNESIUM SULFATE 1 gm IVPB 1 GM/100 ML BAG IV ONE (09:00)
[2020-05-29] MEDS: DOCUSATE NA 100 MG CAP PO SCH (09:04)
[2020-05-29] MEDS: APIXABAN 5 MG TABLET PO SCH (09:04)
[2020-05-29] MEDS: MEMANTINE HCL 10 MG TABLET PO SCH (09:05)
[2020-05-29] MEDS: lisinopriL 20 MG TAB PO SCH (09:06)
[2020-05-29 09:31] VITALS: O2SAT 91
--- NOTE | 2020-05-29 13:29 | P.DS ---
Admission Date: 05/25/20 Discharge Date: 05/29/20 Primary Care Provider: Out of town Disposition: [place] HOME/HOME HEALTH CARE Discharge Condition: GOOD Reason for Admission: metabolic encephalopathy 2/2 UTI and Pneumonia Procedures: CT head (05/25): No acute intracranial abnormalities seen. Mild to moderate low-density areas within periventricular, deep, and subcortical white matter likely represent ischemic changes secondary to small-vessel disease. CXR (05/25): Lungs are mildly emphysematous but grossly clear. Heart is moderately enlarged in size with changes of a prior CABG. No displaced fractures. CT abdomen/pelvis (05/26): Airspace infiltrate is present in both lung bases, greater on the left, suspicious for aspiration/pneumonia. Prominent fecal retention is seen throughout the colon. Small bilateral renal cysts are present. Small calculi present in the inferior right kidney without hydronephrosis. TTE (05/26): EF: 50-55% with basal septal hypokinesis. Moderate tricuspid regurgitation, mild mitral regurgitation. Left atrial enlargement. Diastolic dysfunction with RV systolic pressure: 35 mmHg Problem list Metabolic encephalopathy secondary to urinary tract infection (cystitis) Pneumonia, aspiration vs viral Hypomagnesemia General weakness and limited mobility, fall risk Atrial fibrillation on chronic anticoagulation therapy Hypertension Hyperlipidemia BPH Dementia Brief History of Present Illness: 79-year-old male, PMH: AFib on Eliquis, DM2, HTN, HLD, history of bladder injury from hernia repair complication who presented to the ED with altered mental status. Patient lives with his and granddaughter who report that at home he was acting more confused than usual although he does have some baseline intermittent confusion. Patient was also very weak, having difficulty getting around. Family reports patient has been like this in the past when he has had urinary tract infections. Family reports that the patient had a hernia repair at [facility] in [place] in 2018 and there is a complication involving the bladder. During his evaluation in the emergency department patient was found to have elevated white blood cell count of 17. Urinalysis showed leukocytes. Urine sent off for microscopic evaluation and culture. Blood cultures obtained. Hospital Course: Patient was admitted for further management. His urine culture grew mixed bhavesh. Blood cultures only grew coagulase-negative Staph which was likely a contaminant. The patient was initially treated with Rocephin and then Flagyl was added shortly after given the CT findings of possible aspiration pneumonia. During this time patient did not have any shortness of breath or oxygen requirement. Further discussion, his did report he was having a cough at home for a few days prior to admission. He was evaluated at bedside and reportedly didn't have difficulty swallowing. During his hospitalization. His leukocytosis normalized, and his mentation was back to her baseline per his . He was discharged home with Augmentin for 7 days to cover for aspiration pneumonia and ? UTI. The patient was evaluated by physical therapy and was recommended that he be discharged with home PT. He was discharged with home health and physical therapy. He is to resume all home medications. Vital Signs/Physical Exam: Temp Pulse Resp BP Pulse Ox 97.1 F 94 H 19 136/85 91 05/29/20 08:00 05/29/20 09:06 05/29/20 08:00 05/29/20 09:06 05/29/20 08:00 General: Alert, In no apparent distress, Oriented x2 HEENT: Mucous membr. moist/pink, Sclerae nonicteric Neck: Supple Respiratory: Clear to auscultation bilaterally, Normal air movement Cardiovascular: No edema, Irregular heart rate/rhythm (afib) Gastrointestinal: Soft and benign, Non-distended, No tenderness Musculoskeletal: No erythema, No tenderness Integumentary: No rashes Neurological: Normal speech, Normal affect, Dementia (mild, pleasant) Laboratory Data at Discharge: WBC 9.9 K/uL (4.3-10.9) 05/29/20 05:31 Hgb 12.4 g/dL (13.6-17.9) L 05/29/20 05:31 Hct 36.3 % (39.6-49.0) L 05/29/20 05:31 Plt Count 220 K/uL (152-406) 05/29/20 05:31 PT 18.4 SECONDS (9.5-12.5) H 05/25/20 19:35 INR 1.57 05/25/20 19:35 APTT 30.2 SECONDS (24.3-36.9) 05/25/20 19:35 Sodium 139 mmol/L (136-145) 05/29/20 05:31 Potassium 3.7 mmol/L (3.5-5.1) 05/29/20 05:31 BUN 13 mg/dL (7-18) 05/29/20 05:31 Creatinine 0.86 mg/dL (0.55-1.3) 05/29/20 05:31 Glucose 116 mg/dL (74-106) H 05/29/20 05:31 Magnesium 1.7 mg/dL (1.8-2.4) L 05/29/20 05:31 Total Bilirubin 1.7 mg/dL (0.2-1.0) H 05/25/20 19:35 AST 9 U/L (15-37) L 05/25/20 19:35 ALT 12 U/L (12-78) 05/25/20 19:35 Alkaline Phosphatase 76 U/L (45-117) 05/25/20 19:35 Lipase 94 U/L (73-393) 05/25/20 19:35 Home Medications: Atorvastatin Calcium [Lipitor*] 40 mg PO BEDTIME 05/26/20 Insulin Aspart [Novolog Flexpen] 5 unit SQ TIDWM 05/26/20 Lisinopril [Zestril] 40 mg PO DAILY 05/26/20 Memantine HCl 1 tab PO DAILY 05/26/20 Metformin HCl 1,000 mg PO BID 05/26/20 Metoprolol Succinate [Toprol Xl] 100 mg PO DAILY 05/26/20 Amoxicillin/Potassium Clav [Augmentin 875-125 Tablet] 1 tab PO BID 7 Days #14 tablet 05/29/20 Apixaban [Eliquis *] 5 mg PO DAILY 05/29/20 New Medications: Amoxicillin/Potassium Clav [Augmentin 875-125 Tablet] 1 tab PO BID 7 Days #14 tablet Diet: AHA Activity: Fall precautions Time spent managing pt's care (in minutes): 35
[2020-05-29 14:17] VITALS: BP 135/92; TEMP 97.5
[2020-05-30] MEDS ORDERED: FAMOTIDINE 20 MG TAB PO SCH (10:27)
== END 2020-05-29 15:18 | disposition home health service (06) | DRG 177 ==
LOC: ER 18:37 → ERHOLD 21:20 → 2ND 22:46
PROVIDERS: ADMIT Emergency Medicine; ATTEND Hospitalist
DX: J69.0 Pneumonitis due to inhalation of food and vomit (principal); G93.41 Metabolic encephalopathy; N39.0 Urinary tract infection, site not specified; I48.91 Unspecified atrial fibrillation; E11.9 Type 2 diabetes mellitus without complications; I10 Essential (primary) hypertension; E78.5 Hyperlipidemia, unspecified; E83.42 Hypomagnesemia; N40.0 Benign prostatic hyperplasia without lower urinary tract symptoms; F03.90 Unspecified dementia, unspecified severity, without behavioral disturbance, psychotic disturbance, mood disturbance, and anxiety; R53.1 Weakness; Z95.5 Presence of coronary angioplasty implant and graft; Z87.891 Personal history of nicotine dependence; Z79.899 Other long term (current) drug therapy; Z91.81 History of falling; Z79.4 Long term (current) use of insulin; Z79.01 Long term (current) use of anticoagulants; Z20.828 Contact with and (suspected) exposure to other viral communicable diseases
CPT/HCPCS: 36415; 70450; 71045; 74177; 80048; 80076; 81003; 81015; 82550; 82553; 82947; 83690; 83735; 84145; 84484; 85025; 85610; 85730; 87040; 87086; 87088; 87205; 93005; 93306; 96365; 97116; 97161; 97530; 99285; J0696; J3475; J7030; J7040; Q9967; U0002

== ENCOUNTER 2020-07-06 14:47 | Inpatient (IN) | payer MEDICARE ==
--- NOTE | 2020-07-06 15:48 | RAD REPORT ---
EXAM DESCRIPTION: CT - Head C Spine Mpr Wo Con - 07/06/2020 3:23 pm CLINICAL HISTORY: Dysphagia, left arm weakness COMPARISON: 2018 CT and June 10, 2020 MRI brain TECHNIQUE: Computed axial tomography of the head and cervical spine was obtained. Sagittal and coronal reconstruction was performed. All CT scans are performed using dose optimization technique as appropriate and may include automated exposure control or mA/KV adjustment according to patient size. FINDINGS: Small low-density areas within the right parietal lobe has the appearance of small subacut e infarction. 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 Coarse vascular calcifications are noted. Mild to moderate low-density areas within periventricular, deep and subcortical white matter likely i schemic changes secondary to small vessel disease An intracranial bleed is not seen. The ventricles are normal in caliber. An extra-axial fluid collect ion is not noted.Fluid within the visualized sinuses and mastoids is not seen A cervical fracture is not visualized. No dislocation is noted. Spondylosis involves the cervical spi ne resulting in mild to moderate left foraminal stenosis C3-4 and moderate right foraminal stenosis C 4-5 IMPRESSION: Small subacute right cerebral infarction without significant change the prior MRI A cervical fracture is not visualized. Spondylosis resulting in mild to moderate left foraminal stenosis C3-4 and moderate right foraminal s tenosis C4-5
[2020-07-06 15:53] LABS: Absolute Lymphocytes (CBC) 1.3 K/uL (0.7-4.9); Basophils % 1.5 % (0-1.3); Hematocrit 39.1 % (39.6-49.0); Lymphocytes % 15.8 % (15.3-44.8); MPV 9.8 fL (7.6-11.3); RBC Red Blood Cell Count 4.15 M/uL (4.33-5.43)
[2020-07-06 15:55] LABS: Protime INR 1.65
--- OUTSIDE RECORDS SUMMARY | 2020-07-06 15:55 | XMS REPORT | Clinical Summary ---
:1940 [address] [facility] [place], [place] Address [address] [place] [address] Care Team Providers Name Role Phone Pcp [...] Assigned at Date Recorded Not on file Last Filed Vital Signs Not on file Plan of Treatment Not on file Results Not on fileafter 07/06/2019 Insurance Payer Benefit Plan / Subscriber ID Effective Dates Phone Addre ss Type Group MEDICARE MEDICARE A B [id number] 2004-Presen Medicare t MCR [employer]/[place] [id number] 2017-Present Medigap SUPPLEMENT/[facility] Advance Directives For more information, please contact: [phone] Type Date Recorded Patient University Internship Explanati on Advance Directives and Living 04/30/2018 12:00 AM Will Code Status Date Activated Date Inactivated Comments Full Code 05/13/2018 7:01 PM 05/16/2018 4:03 PM This code status was determined by: Patient
--- OUTSIDE RECORDS SUMMARY | 2020-07-06 15:57 | XMS REPORT | Continuity of Care Document ---
:1940 Author Organization [facility] Information [place] Care Team Providers Name Role Phone [facility] Information Exchange Unavailable Un available Problems Problem Status Onset Classification Date Comments Sourc e Date Reported DJD LUMBAR PAIN Active 10/22/19 Ryan rial 19 [facility] AMS, UTI, KIDNEY Active 01/01/20 INJURY [address] [facility] INJURY OF URETER Active 01/01/[address] [id number] Active 12/04/19 BILATERAL UMBILICAL 18 [facility] Chest pain (finding) Active 10/30/19 Problem 02/27/2020 Data Medical 13 migrated Group, from [facility] on 02/05/15. [facility] [place] Carotid Active Problem 02/27/2020 Medica l atherosclerosis Grou p, (disorder) [facility] [place] Coronary Active Problem 02/27/2020 Data Medica l arteriosclerosis migrated Josse up, (disorder) from [facility] on 02/05/15. [facility] [place] Diabetes mellitus Active Problem 02/27/2020 M H Medical (disorder) Group,[facility] [place] Hyperlipidemia Active Problem 02/27/2020 M edical (disorder) Group,[facility] [place] Hypertensive Active Problem 02/27/2020 Data Med ical disorder, systemic migrated G roup, arterial (disorder) from [facility] on 02/05/15. 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 [place] Femoral hernia Active Problem 02/27/2020 [facility] edical (disorder) Group,[facility] [place] Gastroesophageal Active Problem 02/27/2020 Medical reflux disease with Group, esophagitis [facility] (disorder) [facility] [place] Glaucoma (disorder) Active Problem 02/27/2020 Medical Group,[facility] [place] Umbilical hernia Active Problem 02/27/2020 Medical (disorder) Group,[facility] [place] Unspecified injury 01/05/2018 MH of ureter, initial M [facility] ALTERED MENTAL Active MH STATUS, UNSPECIFIED [facility] UNSPECIFIED INJURY Active M H OF URETER, INITIAL M [facility] AMS/ UTI/ DIRECT Active MH ADMIT [facility] Medications Medication Details Route Status Patient [...] al [Eliquis] tab, 3 Group Refill(s), Pharmacy: [facility] [id number] lisinopril 5 mg 5 mg = 1 [...] # 14 tab, 0 Group Refill(s), Pharmacy: [facility] [id number] Cricket Notes: Same as: Inactive Eliquis [address] [facility] Acetaminophen 1 tab, PO, Q6H, Active 300 MG / Codeine PRN Pain, X 5 2018 [facility] Phosphate 30 MG day, # 20 tab, 0 [facility] Oral Tablet Refill(s) [Tylenol with Codeine #3] Hydrocortisone 5 1 appl, TOP, Active MG/ML Topical BID, PRN Rash, 0 2018 [facility] Cream Refill(s) [facility] Cephalexin 500 500 mg = 1 cap, Active H MG Oral Capsule PO, TID, X 7 2018 Mem orial [Keflex] day, # 21 cap, 0 [facility] Refill(s) Hydrocortisone 5 1 appl, Route: Inactive MG/ML Topical TOP, BID, Drug 2018 Mem orial Cream form: CRM, PRN [facility] Rash, Start date: 01/02/18 10:55:00 CDT, Duration: 30 day, Stop date: 02/01/18 10:54:00 CDT Brimonidine 1 drp, Route: Inactive tartrate 2 MG/ML BOTH EYES, Q12H, 2017 [facility] / Timolol 5 Drug form: SOLN, Cit y MG/ML Ophthalmic Start date: Solution 01/01/18 [Combigan] 21:00:00 CDT, Duration: 30 day, Stop date: 01/31/18 9:00:00 CDT timolol Notes: (Same As: No Longer ophthalmic Timoptic, Active 2017 [facility] Betimol) [facility] metoprolol Notes: (Same as: No Longer tartrate Lopressor) Active [address] [facility] brimonidine Notes: (Same As: No Longer H ophthalmic Alphagan) Active [address] [facility] latanoprost Notes: Keep No Longer ophthalmic refrigerated. Active 2017 [facility] (Same City as:Xalatan) Opened bottle may be stored at room temperature for 6 weeks Magnesium Notes: WASTE: Inactive Sulfate F/P - Sink; E - 2018 [facility] Bin travoprost 0.04 1 drp, Route: Inactive H MG/ML Ophthalmic BOTH EYES, Drug 2018 [facility] Solution Form: SOLN, Cecilio [Travatan] Dosing Weight 93.295, kg, QPM, Start date: 01/01/18 17:00:00 CDT, Duration: 30 day, Stop date: 01/30/18 17:00:00 CDT Protonix Notes: Tablet No Longer should not be Active 2017 [facility] chewed or [facility] crushed. Docusate Notes: (Same as: No Longer Colace) (Do Not Active 2017 [facility] Crush) [facility] albumin human Notes: LOT#: Inactive 25% intravenous 2017 [place] morial solution Mfg: City ____ WASTE: F/P - Red; E -Red (Same as: Albuminar) "blood product derivative" NS (Bolus) IV 1,000 mL, 1,000 Inactive ml/hr, Infuse 2017 [facility] Over: 1 hr, [facility] Route: IV, 1,000, Drug form: INJ, ONCE, Priority: STAT, Dosing Weight 93.295 kg, Start date: 01/01/18 5:48:00 CDT, Stop date: 01/01/18 5:48:00 CDT Ceftriaxone Notes: (Same As: No Longer Rocephin). Use [facility] 2017 [facility] with 100 mL NS [facility] and infuse over 30 min MEDICATION WASTE Product Size: 1000 mg Product Wasted: ___ mg Insulin Lispro Notes: (Same as: No Longer Humalog ) Roll Active 2017 [facility] in palms of [facility] hands gently; Do not shake `vigorously. [...] Route: IM, No Longer Drug form: Active [address] [place] [address] PDR/INJ, PRN, [facility] Dosing Weight 93.295, kg, PRN Blood Glucose Results, Start date: 12/31/17 23:08:00 CDT, Duration: 30 day, Stop date: 01/30/18 23:07:00 CDT Saline Flush Notes: (Same as: No Longer 0.9% BD Posiflush) Active [address] [place] [address] Ondansetron Notes: (Same as: No Longer H Zofran ODT) Active [address] [facility] Morphine Notes: (Same No Longer as:MORPhine Active 2017 [facility] Sulfate) [facility] Acetaminophen Notes: Do not No Longer exceed 4 gm/day. Active 2017 [facility] (Same as: [facility] Tylenol) Acetaminophen Notes: (Same as: No Longer 325 MG / Olar 325/5) Do [facility] Bitartrate 5 MG 4gm/day of Oral Tablet acetaminophen. Sodium Chloride 1,000 mL, Rate: No Longer 0.9% IV 1,000 mL 75 ml/hr, Infuse Active [address] [place] [address] over: 13.3 hr, [facility] Route: IV, Dosing Weight 93.295 kg, Total Volume: 1,000, Start date: 12/31/17 23:07:00 CDT, Duration: 30 day, Stop date: 01/30/18 23:06:00 CDT, 2.19, m2 glycopyrrolate Route: IV, Drug Inactive (ANES) form: INJ, ONCE, 2017 [facility] Stop date: [facility] 12/23/17 16:01:00 CDT neostigmine Route: IV, Drug Inactive (ANES) form: INJ, ONCE, 2017 [facility] Stop date: [facility] 12/23/17 16:01:00 CDT ondansetron Route: IV, Drug Inactive (ANES) form: INJ, ONCE, 2017 [facility] Stop date: [facility] 12/23/17 15:52:00 CDT Hydralazine 10 mg, Route: Inactive IVP, Q20Min, 2018 [facility] Dosing Weight [facility] 84.091, kg, PRN Elevated BP, Start date: 12/23/17 14:45:00 CDT, Duration: 2 doses or times, Stop date: Limited # of times Ondansetron 4 mg, Route: Inactive IVP, ONCE, 2018 [facility] Dosing Weight [facility] 84.091, kg, PRN Nausea & Vomiting, Start date: 12/23/17 14:45:00 CDT Morphine 2 mg, Route: Inactive IVP, Q5Min, 2018 [facility] Dosing Weight [facility] 84.091, kg, PRN Pain Score 4-6, Start date: 12/23/17 14:45:00 CDT, Duration: 5 doses or times, Stop date: Limited # of times Naloxone 0.4 mg, Route: Inactive IVP, Q2MIN, 2018 [facility] Dosing Weight [facility] 84.091, kg, PRN Narcotic Reversal, Start date: 12/23/17 14:45:00 CDT, Duration: 8 doses or times, Stop date: Limited # of times Flumazenil 0.2 mg, Route: Inactive IVP, PRN, Dosing 2018 [facility] Weight 84.091, City kg, PRN Benzodiazepine Reversal, Initial dose, Start date: 12/23/17 14:45:00 CDT, Duration: 30 day, Stop date: 01/22/18 14:44:00 CDT Hydromorphone 0.5 mg, Route: Inactive IVP, Q5Min, 2018 [facility] Dosing Weight [facility] 84.091, kg, PRN Pain Score 7-10, Start date: 12/23/17 14:45:00 CDT, Duration: 4 doses or times, Stop date: Limited # of times rocuronium Route: IV, Drug Inactive (ANES) form: INJ, ONCE, 2017 [facility] Stop date: [facility] 12/23/17 14:22:00 CDT fentaNYL (ANES) Route: IV, Drug Inactive form: INJ, ONCE, 2017 [facility] Stop date: [facility] 12/23/17 14:17:00 CDT lidocaine (ANES) Route: IV, Drug Inactive form: INJ, ONCE, 2017 [facility] Stop date: [facility] 12/23/17 14:17:00 CDT propofol (ANES) Route: IV, Drug Inactive form: INJ, ONCE, 2017 [facility] Stop date: [facility] 12/23/17 14:17:00 CDT ePHEDrine (ANES) Route: IV, Drug Inactive form: INJ, ONCE, 2017 [facility] Stop date: [facility] 12/23/17 14:02:00 CDT ceFAZolin (ANES) Route: IV, Drug Inactive form: INJ, ONCE, 2017 [facility] Stop date: [facility] 12/23/17 14:02:00 CDT acetaminophen Route: IV, Drug Inactive H (ANES) 10 mg form: INJ, Start 2017 Me morial date: 12/23/17 [facility] 13:24:00 CDT, Stop date: 12/23/17 14:24:00 CDT Lactated Ringers Route: IV, Total Inactive 12/23 Injection IV Volume: 1,000, 2017 Ryan rial (ANES) 1000 mL Start date: [facility] 12/23/17 13:12:00 CDT, Stop date: 12/23/17 14:12:00 CDT Lidocaine 0.5 mL, Route: Inactive Hydrochloride 10 INTRADERM, 2017 Ryan rial MG/ML Injectable Dosing Weight C ity Solution 84.091, kg, ONCALL, Start date: 12/23/17 11:00:00 CDT, Duration: 1 doses or times Sodium Chloride 1,000 mL, Rate: Inactive 0.9% IV 1000 mL 25 ml/hr, Infuse 2018 [facility] over: 40 hr, [facility] Route: IV, Dosing Weight 84.091 kg, [...] Medi [place] tab, 1 Group Refill(s), Pharmacy: [facility] [id number], DUE FOR AN OFFICE VISIT. PLEASE CALL DR. FLETCHER'S OFFICE TO MAKE AN APT. lisinopril 20 mg 20 mg = 1 tab, No Longer oral tablet PO, Daily, # 90 Active 2017 Medi [place] tab, 1 Group Refill(s), Pharmacy: [facility] [id number], DUE FOR AN OFFICE VISIT. PLEASE CALL DR. COLVIN'S OFFICE TO MAKE AN APT. Metoprolol 100 mg = 1 tab, Active Succinate ER 100 PO, Daily, # 90 2017 Medical mg oral tablet, tab, 1 Group extended release Refill(s), [facility] [id number] atorvastatin 40 40 mg = 1 tab, Active 12/02/ M H mg oral tablet PO, Daily, # 90 2018 M edical tab, 1 Group Refill(s), Pharmacy: [facility] [id number] dapagliflozin 5 mg = 1 tab, Active propanediol 5 MG PO, Daily, 0 2018 [place] dical Oral Tablet Refill(s) Group [Farxiga] atorvastatin 40 40 mg = 1 tab, No Longer mg oral tablet PO, Daily, 0 Active 2017 [facility] [place] Refill(s) Group apixaban 5 MG 5 mg = 1 tab, Active Oral Tablet PO, BID, # 180 2016 Medic al [Eliquis] tab, 1 Group Refill(s), [facility] [id number] Allergies, Adverse Reactions, Alerts Substance Category Reaction Severity Reaction Status Date Comments S ource type Reported NKFA Assertion Food Active allergy Medical Group No Known Assertion Drug Medication allergy Medic al Allergies Group Immunizations No Data Provided for This Section Results Order Name Results Value Reference Date Interpretation Comments Ev rce Range CHEM PANEL Magnesium Lvl 2.2 1.8 - 2.4 01/[address] [facility] ELECTROLYTE AGAP 12.7 10.0 - 01/02 S [address] [facility] ELECTROLYTE CO2 28 24 - 32 01/[address] [facility] ELECTROLYTE Calcium Lvl 7.7 8.5 - 10.5 01/[address] [facility] ELECTROLYTE BUN 12 7 - 22 01/[address] [facility] ELECTROLYTE Sodium Lvl 143 135 - 145 01/[address] [facility] ELECTROLYTE Chloride Lvl 106 95 - 109 01/[address] [facility] ELECTROLYTE Potassium Lvl 3.7 3.5 - 5.1 01/[address] [facility] ELECTROLYTE eGFR 85 01/02 [facility] Comment: [facility] eGFR is City calculated using the CKD-EPI [...] Glucose Lvl 161 70 - 99 01/[address] [facility] ELECTROLYTE Creatinine 0.81 0.50 - 01/02 S Lvl 1.[address] [facility] HEMATOLOGY MPV 8.2 7.4 - 10.4 01/[address] [facility] HEMATOLOGY Platelet 247 133 - 450 01/[address] [facility] HEMATOLOGY RDW 14.0 11.5 - 01/[address] [facility] HEMATOLOGY WBC 9.7 3.7 - 10.4 01/[address] [facility] HEMATOLOGY RBC 3.93 4.70 - 01/02 MH 6.[address] [facility] HEMATOLOGY Hgb 12.0 14.0 - 01/02 MH 18.[address] [facility] HEMATOLOGY Hct 35.4 42.0 - 01/02 MH 54.[address] [facility] HEMATOLOGY MCV 90.1 80.0 - 01/02 MH 94.0 /[address] [facility] HEMATOLOGY MCH 30.6 27.0 - 01/02 MH 31.[address] [facility] HEMATOLOGY MCHC 34.0 32.0 - 01/02 MH 36.[address] [facility] HEMATOLOGY Basophils # 0.1 0.0 - 0.2 01/[address] [facility] HEMATOLOGY Segs 66.9 45.0 - 01/02 MH 75.[address] [facility] HEMATOLOGY Eosinophils 4.7 0.0 - 4.0 01/[address] [facility] HEMATOLOGY Basophils 1.1 0.0 - 1.0 01/[address] [facility] HEMATOLOGY Lymphocytes 19.1 20.0 - 01/02 MH 40.[address] [facility] HEMATOLOGY Monocytes 8.2 2.0 - 12.0 01/[address] [facility] HEMATOLOGY Segs-Bands # 6.5 1.5 - 8.1 01/[address] [facility] HEMATOLOGY Eosinophils # 0.5 0.0 - 0.5 01/[address] [facility] HEMATOLOGY Monocytes # 0.8 0.0 - 0.8 01/[address] [facility] HEMATOLOGY Lymphocytes # 1.9 1.0 - 5.5 01/[address] [facility] CARDIAC BNP 221 <=100 01/01 ENZYMES pg/mL /[address] [facility] CHEM PANEL Magnesium Lvl 1.4 1.8 - 2.4 01/[address] [facility] ELECTROLYTE AGAP 10.5 10.0 - 01/01 MH S 20.[address] [facility] ELECTROLYTE CO2 33 24 - 32 01/[address] [facility] ELECTROLYTE Calcium Lvl 8.2 8.5 - 10.5 01/[address] [facility] ELECTROLYTE Potassium Lvl 3.5 3.5 - 5.1 01/[address] [facility] ELECTROLYTE Sodium Lvl 144 135 - 145 01/[address] [facility] ELECTROLYTE Chloride Lvl 104 95 - 109 01/[address] [facility] ELECTROLYTE BUN 18 7 - 22 01/[address] [facility] ELECTROLYTE Glucose Lvl 107 70 - 99 01/[address] [facility] ELECTROLYTE eGFR 80 01/01 [facility] Comment: [facility] eGFR is City calculated using the CKD-EPI [...] 0.50 - 01/01 MH S Lvl 1.[address] [facility] HEMATOLOGY Segs-Bands # 6.9 1.5 - 8.1 01/01 [facility] Lymphocytes # 1.9 1.0 - 5.5 01/[address] [facility] HEMATOLOGY Monocytes # 0.8 0.0 - 0.8 01/[address] [facility] HEMATOLOGY Basophils # 0.1 0.0 - 0.2 01/[address] [facility] HEMATOLOGY Eosinophils # 0.6 0.0 - 0.5 01/[address] [facility] HEMATOLOGY Segs 66.9 45.0 - 01/01 MH 75.[address] [facility] HEMATOLOGY Basophils 0.9 0.0 - 1.0 01/[address] [facility] HEMATOLOGY Eosinophils 5.6 0.0 - 4.0 01/[address] [facility] HEMATOLOGY Monocytes 7.8 2.0 - 12.0 01/[address] [facility] HEMATOLOGY Lymphocytes 18.8 20.0 - 01/01 MH 40.[address] [facility] HEMATOLOGY RDW 14.3 11.5 - 01/01 MH 14.[address] [facility] HEMATOLOGY Platelet 271 133 - 450 01/[address] [facility] HEMATOLOGY MPV 8.2 7.4 - 10.4 01/[address] [facility] HEMATOLOGY WBC 10.3 3.7 - 10.4 01/01 [facility] MCHC 33.9 32.0 - 01/01 MH 36.[address] [facility] HEMATOLOGY RBC 4.35 4.70 - 01/01 MH 6.[address] [facility] HEMATOLOGY Hgb 13.3 14.0 - 01/[address] [facility] HEMATOLOGY Hct 39.3 42.0 - 01/01 MH 54.[address] [facility] HEMATOLOGY MCV 90.5 80.0 - 01/[address] [facility] HEMATOLOGY MCH 30.6 27.0 - 01/[address] [facility] URINE AND UA Ketones Negative 01/[address] [facility] URINE AND UA Glucose 150 01/[address] [facility] URINE AND UA Sq Epi None Seen 01/[address] [facility] URINE AND UA Bacteria Few /HPF None Seen 01/01 STOOL /HPF /[address] [facility] URINE AND UA Mucus Few /LPF None Seen 01/01 STOOL /LPF [facility] URINE AND UA RBC 85 0 - 2 01/[address] [facility] URINE AND UA Blood Moderate Negative 01/01 STOOL *ABN* /2017 [facility] (12/31/17 11:41 PM) [facility] URINE AND UA 4.0 0.1 - 1.0 01/01 STOOL Urobilinogen /[address] [facility] URINE AND UA pH 7.0 5.0 - 8.0 01/01 STOOL /[address] [facility] URINE AND UA Leuk Est Moderate Negative 01/01 STOOL *ABN* /2017 [facility] (12/31/17 11:41 PM) [facility] URINE AND UA WBC 72 0 - 5 01/01 STOOL /[address] [facility] URINE AND UA Bili Negative Negative 01/01 STOOL *NA* /2017 [facility] (12/31/17 11:41 PM) [facility] URINE AND UA Nitrite Negative Negative 01/01 [facility] (12/31/17 11:41 PM) /2017 [facility] [place] URINE AND UA Turbidity Slight Clear 01/01 STO[facility] *ABN* /2017 [facility] (12/31/17 11:41 PM) [facility] URINE AND UA Spec Grav 1.018 <=1.030 01/[address] [facility] URINE AND UA Color Dark Yellow Yellow 01/01 STOOL *NA* /2017 [facility] (12/31/17 11:41 PM) [facility] URINE AND UA Protein >=300 Negative 01/01 STOOL mg/dL mg/dL [facility] ELECTROLYTE Potassium Lvl 4.3 3.5 - 5.1 12/[address] [facility] ELECT[facility]OLYTE Chloride Lvl 109 95 - 109 12/[address] [facility] ELECTROLYTE CO2 28 24 - 32 12/[address] [facility] ELECTROLYTE Calcium Lvl 9.8 8.5 - 10.5 12/[address] [facility] ELECT[facility]OLYTE Sodium Lvl 145 135 - 145 12/[address] [facility] ELECT[facility]TE Glucose Lvl 144 70 - 99 12/[address] [facility] ELECTROLYTE BUN 17 7 - 22 12/[address] [facility] ELECTROLYTE eGFR 63 12/18 Result Comment: [facility] eGFR is City calculated using the CKD-EPI [...] 0.50 - 12/18 S Lvl 1.40 /[address] [facility] ELECTROLYTE AGAP 12.3 10.0 - 12/18 S 20.[address] [facility] HEMATOLOGY Hct 43.7 42.0 - 12/[address] [facility] HEMATOLOGY Hgb 14.7 14.0 - 12/[address] [facility] Pathology Reports No Data Provided for This Section Diagnostic Reports Report Value Date Source Chest 1view DX EXAM: Chest 1view DX 01/01/2018 [facility] HISTORY: - mild SOB COMPARISON: None Impression: [...] Temperature Oral (F) 97.8 F 01/02/2018 [facility] Systolic (mm Hg) 155 01/02/2018 [facility] Diastolic (mm Hg) 90 01/02/2018 [facility][note 2] Respitory Rate 18 01/02/2018 [facility] Heart Rate 65 01/02[facility]2018 [facility] Resp[facility] Rate 16 01/02/2018 [facility] Temperature Oral (F) 98.2 F 01/02/2018 [facility] Heart Rate 60 01/02/2018 [facility] Systolic (mm Hg) 149 01/02/2018 [facility] [place] Diastolic (mm Hg) 72 01/02/2018 [facility] [place][note 2] Heart Rate 65 01/02/2018 [facility] Respitory Rate 16 01/02/2018 [facility] Systolic (mm Hg) 136 01/02/2018 [facility] Diastolic (mm Hg) 61 01/02/2018 [facility] [place][note 2] Temperature Oral (F) 98.3 F 01/02/2018 [facility] BMI Calculated 27.89 01/01/2018 [facility] Weight 93.295 01/01/2018 [facility] Height 182.88 cm 01/01/2018 [facility] Systolic (mm Hg) 142 12/23/2017 [facility] [place] Diastolic (mm Hg) 69 12/23/2017 [facility] [place][note 2] Respitory Rate 19 12/23/2017 [facility] Systolic (mm Hg) 143 12/23/2017 [facility] [place] Diastolic (mm Hg) 65 12/23/2017 [facility] Respitory Rate 20 12/23/2017 [facility] Systolic (mm Hg) 143 12/23/2017 [facility] [place] Diastolic (mm Hg) 62 12/23/2017 [facility] Respitory Rate 20 12/23/2017 [facility] Heart Rate 74 12/23/2017 [facility] [...] Number For Provider Date Date Visit Outpatient [id number] [facility] 07/05 [facility] Edmund Outpatient [id number] NUCLEAR 08/[address] [facility] SCAN VISIT /2015 [facility] [id number] [facility] 08/[address] [facility] SCAN VISIT /2015 Brennen n Outpatient [id number] [facility] 08/20 [facility] Wann Outpatient [id number] [facility] 12/05 [facility] Edmund Outpatient [id number] [facility] 06/06 [facility] Edmund Outpatient [id number] ECHO VISIT 06/20 [facility] Phone [id number] 07/19 07/21 Cardiology Message /2016 Medic al [facility] Outpatient [id number] FRANCES 11/28 [facility] Outpatient [id number] Anderson 11/28 11/29 Cardiology David /2017 Medic al [facility] Day Surgery [id number] Fer Efren 12/23 12/23 [facility] Gomez /2017 [facility] Emergency [id number] Neri 01/01 01/01 [facility] /2017 Memori al [facility] Inpatient [id number] Latonya Latonya Pe 01/01 01/02 [place] [facility] Phone [id number] 01/06 01/08 Urology Message /2017 Medical [facility] Outpatient [id number] ROBBI 01/[address] [facility] Ambulatory [id number] Robbi 01/16 01/16 Urology Pre-Reg [facility] /2017 Medica l [facility] Outpatient [id number] ROBBI 02/[address] [facility] Outpatient [id number] Anderson 02/24 02/25 Urology David /2017 Medical [employer] [facility] Outside [id number] 03/19 03/21 Cardiology Medical /2017 Medic al [employer] [facility] Outpatient [id number] FRANCES 05/05 [facility] [id number] Anderson 05/05 05/06 Cardiology David /2017 Medic al [employer] [facility] OP Therapy [id number] Yakov 09/22 10/22 [facility] OP Therapy [id number] Yakov 10/22 11/21 [facility] Outpatient [id number] FRANCES 11/03 [facility] [id number] Frances 11/03 11/04 Cardiology [place] /2018 [facility] [employer] Outpatient [id number] Frances 05/04 [facility] Outpatient [id number] Frances 05/04 05/05 Cardiology [place] /2018 [facility] [employer] Outpatient [id number] Frances 11/02 [facility] Outpatient [id number] Frances 11/02 11/03 Cardiology [place] /2019 [facility] [employer] Outpatient [id number] Gabrielle 02/23 [facility] Multi Outpatient [id number] Luba 02/23 02/24 Specialty Joseph /2019 [facility] Outpatient [id number] [facility] 10/31 [facility] Procedures Procedure Code Date Perfomer [place] [address] 02/24/2018 Medical post-voiding Group residual urine and/or bladder capacity by ultrasound, non-imaging CABG - Coronary [id number] 1999 Medica l artery bypass Group, graft<sup>1</sup> [facility] Cardiac [id number] Open Grafts Medical catheterization<sup 2004 Group , >2</sup> [facility] Carotid [id number] Right and left Medical endarterectomy<sup> Group , 3</sup> [facility] DELORIS Villalpando Repair of [id number] 1 week ago Medical diaphragmatic Group, hiatal [facility] hernia<sup>4</sup> [facility], MR DELORIS Villalpando Assessment and Plan [...] entered on: 02/24/20 Social History TypeResponse 12/18/2017 [facility] Alcohol Past Smoking Status Former smoker; Exposure to Tobacco Smoke None; Cigarette Smoking Last 365 Days No; Reg Smoking Cessation Counseling No entered on: 12/31/17 Social History TypeResponse 12/18/[address] [facility] DELORIS pozo Alcohol Past Smoking Status Former smoker; Exposure to Tobacco Smoke None; Cigarette Smoking Last 365 Days No; Reg Smoking Cessation Counseling No entered on: 11/03/18 Family History No Data Provided for This Section Advance Directives No Data Provided for This Section Functional Status No Data Provided for This Section
--- OUTSIDE RECORDS SUMMARY | 2020-07-06 15:59 | XMS REPORT | Continuity of Care Document ---
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 [facility]13 [facility] implanted 00:[facility]: [facility] [place] mesh to mesh to 00 Center organ or organ or tissue, tissue, initial initial encounter encounter BPH BPH Disease Active [facility] (benign (benign 05-12 [facility] - prostatic prostatic 00:00: [facility] [place] hyperplasi hyperplasi 00 Ce nter a) a) Incomplete Incomplete Disease Active 2018-[address] bladder bladder 05-11 [facility] [...] KIDNEY 4-24 22:28:00 l INJURY AMS, 00:00: [place] UTI, 00 KIDNEY INJURY Active 12/31/2017 [facility] INJURY OF Diagnosis Active 2018-01-07 Memoria URETER 4-24 22:03:00 l INJURY 00:00: [place] OF URETER 00 Active 12/31/2017 [facility] [id number], Diagnosis Active 2018-04-17 Memoria [id number] 3- 16:05:00 l BILATERAL 00:00: [place] UMBILICAL [id number], 00 OUMAR 25162 BILATERAL UMBILICAL OUMAR Active 12/03/2017 [facility] Chest pain Problem Active 2020-02-27 M emoria (finding) 2- 00:55:05 l Chest 00:00: [place] pain 00 (finding) Active 10/30/2012 Problem 02/27/2020 Data migrated from [facility] [employer] on 02/05/15. Medical Group,[facility] NAWAF Kwasi History of History of Problem Resolve Univers [...] d injury of ureter, initial encounter 01/05/2018 [facility] Carotid Problem Active 2020-02-27 Ryan melodie atheroscle 00:55:05 l rosis Carotid [place] (disorder) atheroscle rosis (disorder) Active Problem 02/27/2020 Medical Group,[facility] HOS [place] Coronary Problem Active 2020-02-27 Mem oria arterioscl 00:55:05 l erosis Coronary Brennen watt (disorder) arterioscl erosis (disorder) Active Problem 02/27/2020 Data migrated from [facility] on 02/05/15. Medical Group,[facility] Kwasi Diabetes Problem Active 2020-02-27 Mem oria mellitus 00:55:05 l (disorder) Diabetes He rmann mellitus (disorder) Active Problem 02/27/2020 Medical Group,[facility] Kwasi Hyperlipid Problem Active 2020-02-27 M emoria emia 00:55:05 l (disorder) Brennen n Hyperlipid emia (disorder) Active Problem 02/27/2020 Medical Group,[facility] Kwasi Hypertensi Problem Active 2020-02-27 emoria ve 00:55:05 l disorder, [place] systemic Hypertensi arterial ve (disorder) disorder, systemic arterial (disorder) Active Problem 02/27/2020 Data migrated from [facility] on 02/05/15. Medical Group,[facility] [...] Center Kwasi Gastroesop Problem Active 2020-02-27 M kellee hageal 00:55:05 l reflux Edmund disease Gastroesop with hageal esophagiti reflux s disease (disorder) with esophagiti s (disorder) Active Problem 02/27/2020 Medical Group,[facility] Kwasi Glaucoma Problem Active 2020-02-27 Mem oria (disorder) 00:55:05 l Glaucoma Brennen n (disorder) Active Problem 02/27/2020 Medical Group,[facility] Kwasi Umbilical Problem Active 2020-02-27 Me moria hernia 00:55:05 l (disorder) Brennen n Umbilical hernia (disorder) Active Problem 02/27/2020 Medical Group,[facility] NAWAF Kwasi ALTERED Diagnosis Active 2017-12-31 Me moria MENTAL 22:28:00 l STATUS, ALTERED Brennen n UNSPECIFIE MENTAL D STATUS, UNSPECIFIE D Active [facility] UNSPECIFIE Diagnosis Active 2018-01-07 Memoria D INJURY 22:03:00 l OF URETER, Brennen n INITIAL EN UNSPECIFIE D INJURY OF URETER, INITIAL EN Active [facility] AMS/ UTI/ Diagnosis Active 2018-01-01 Memoria DIRECT 19:23:00 l ADMIT AMS/ [place] UTI/ DIRECT ADMIT Active [facility] Allergies, Adverse Reactions, Alerts Allergy Allergy Status Severity Reaction(s) Onset Inactive Treating Comm ents Source Name Type Date Date Clinician NKFA NKFA Active Memoria l [place] No Known No Known Active Memori a Medicati Medicati l on on Edmund Allergie Allergie s s Social History Social Habit Start Date Stop Date Quantity Comments Source Sex Assigned At [facility] Tobacco use and 2018-05-14 2018-05-14 Never used [facility] - exposure 00:00:00 00:00:00 [facility] Alcohol intake 2018-05-14 2018-05-[address] [facility] es - 00:00:00 00:00:00 non-drinker of Medical Ce nter alcohol (finding) Tobacco Comment 2018-04-30 2018-04-30 quit 30 yrs ago [facility] - 00:00:00 00:00:00 [facility] Social History 2017-12-18 2017-12-18 [facility] ermann 16:53:06 16:53:06 Smoking Status Start Date Stop Date Source Never smoker [facility] Former smoker 2018-05-14 00:00:00 2018-05-14 00:00:[address] [facility] Medications Ordered Filled Start Stop Current Ordering Indication Dosage Frequency Signature Comments Components Source Medication Medication Date Date Medication? Clinician (SIG) Name Name lisinopril Yes 20 mg = 1 Me moria 20 mg oral 2-24 tab, PO, l tablet 17:14: Daily, 0 Edmund 00 Refill(s) Aspirin 81 2019- Yes 81 mg = 1 Me moria MG Enteric 2-24 tab, PO, l Coated 17:14: Daily, # [place] Tablet 00 90 tab, 3 Refill(s) NovoLog Yes SUB-Q, Memoria 2-24 TID-Before l 17:14: Meals, 0 Edmund 00 Refill(s) lisinopril Yes 40 mg = 1 Me moria 40 mg oral 8-26 tab, PO, l tablet 15:26: Daily, 0 Edmund 00 Refill(s) apixaban 5 Yes 5 mg = 1 Mem oria MG Oral 3-29 tab, PO, l Tablet 19:59: BID, # 180 Larissa nn [Eliquis] 56 tab, 3 Refill(s), Pharmacy: [facility] [id number] lisinopril Yes 5 mg = 1 Mem oria 5 mg oral 2-25 tab, PO, l tablet 16:45: BID, 0 [place] 00 Refill(s) sitagliptin Yes 50 mg = 1 M emoria 50 MG Oral 2-25 tab, PO, l Tablet 16:45: Daily, 0 Edmund [Januvia] 00 Refill(s) atorvastati Yes 40mg QD Take [address] [facility] (LIPITOR) 05-16 by mouth Luke s - 40 MG 14:03: daily. Medical tablet 36 Center lisinopril Yes 20mg QD Take [address] (PRINIVIL,Z 05-16 by mouth Luke s - ESTRIL) 20 14:03: daily. Medic al MG tablet 36 Center amLODIPine Yes 5mg QD Take [address] (NORVASC) 5 9-07 by mouth Luke s - MG tablet 14:03: daily. Medica l 36 Center metoprolol 2018-0 Yes 100mg QD Take [address] (TOPROL-XL) 9-07 mg by [facility] - 100 MG 24 14:03: mouth Medical hr tablet 36 daily. Center apixaban 2018-0 Yes 5mg Q.5D Take [address] (ELIQUIS) 5 9-07 by mouth 2 Destiny kes - mg Tab 14:03: (two) Medical tablet 36 times Center daily. metFORMIN 2018-0 Yes 1000mg Take 1,[address] [facility] (GLUCOPHAGE 9-07 mg by [facility] - ) 1000 MG 14:03: mouth 2 Medic al tablet 36 (two) Center times daily with breakfast and dinner. glipiZIDE 2018-0 Yes 10mg Take [address] (GLUCOTROL) 9-07 by mouth 2 Destiny kes - 10 MG 14:03: (two) Medical tablet 36 times Center daily before meals. tamsulosin 2018-0 Yes .4mg QD Take 0.[address] [facility] [facility] (FLOMAX) 9-07 mg by [facility] - 0.4 mg Cap 14:03: mouth Medica l 24 hr 36 daily. Elizabeth capsule travoprost 2017-0 Yes 1[drp] QD Place [address] (TRAVATAN 9-07 drop into [facility] - Z) 0.004 % 14:03: both eyes Me dical Drop 36 nightly. Elizabeth ophthalmic drops brimonidine 2017-0 Yes 1[drp] QD [address] -timolol 9-07 nightly . [facility] - (COMBIGAN) 14:03: Medical 0.2-0.5 % 36 Center ophthalmic solution nitrofurant 2017-0 Yes 100mg Q.25D Take [address] oin 9-07 mg by [facility] - (MACRODANTI 14:03: mouth 4 Med ical N) 100 MG 36 (four) Center capsule times daily . finasteride 2018-0 Yes 5mg QD Take [address] (PROSCAR) 5 9-07 by mouth Luke s - mg tablet 14:03: daily. Medica l 36 Center Ciprofloxac 2017-0 Yes 250 mg = 1 Memoria in 250 MG 6-18 tab, PO, l Oral Tablet 15:22: Q12H, X 7 H ermann [Cipro] 00 day, # 14 tab, 0 Refill(s), Pharmacy: [facility] [id number] Eliquis No Notes: Memoria 01-02 Same as: l 22:00: Eliquis Acetaminoph Yes 1 tab, PO, Memoria en 300 MG / 01-02 Q6H, PRN l Codeine 20:27: Pain, X 5 Larissa nn Phosphate 00 day, # 20 30 MG Oral tab, 0 Tablet Refill(s) [Tylenol with Codeine #3] Hydrocortis Yes 1 appl, Mem oria one 5 MG/ML 01-02 TOP, BID, l Topical 18:56: PRN Rash, Larissa nn Cream 00 0 Refill(s) Cephalexin Yes 500 mg = 1 M emoria 500 MG Oral 01-02 cap, PO, l Capsule 18:56: TID, X 7 Brennen n [Keflex] day, # 21 cap, 0 Refill(s) Hydrocortis [...] 9:00:00 CDT timolol No Notes: Memoria ophthalmic 01-02 (Same As: l 02:00: Timoptic, Betimol) metoprolol No Notes: Memor ia tartrate 01-02 (Same as: l 02:00: Lopressor) brimonidine No Notes: Ryan melodie ophthalmic 01-02 (Same As: l 02:00: Alphagan) latanoprost No Notes: Ryan melodie ophthalmic 4-26 Keep l 02:00: refrigerat [place] 00 ed. (Same as:Xalatan ) Opened bottle may be stored at room temperatur e for 6 weeks Magnesium No Notes: Memori a Sulfate -25 WASTE: F/P l 23:00: - Sink; E [place] 00 - Municipal Trash Bin travoprost No 1 drp, Memor ia 0.04 MG/ML 01-01 Route: l Ophthalmic 22:00: BOTH EYES, H ermann Solution 00 Drug Form: [Travatan] SOLN, Dosing Weight 93.295, kg, QPM, Start date: 01/01/18 17:00:00 CDT, Duration: 30 day, Stop date: 01/30/18 17:00:00 CDT Protonix No Notes: Memoria 4-25 Tablet l 16:30: should not Edmund be chewed or crushed. Docusate No Notes: Memoria 4-25 (Same as: l 14:00: Colace) (Do Not Crush) albumin No Notes: Memoria human 25% 4-25 LOT#: l intravenous 10:48: [place] solution 00 ___ Mfg: WASTE: F/P - Red; E -Red (Same as: Albuminar) "blood product derivative " NS (Bolus) No 1,000 mL, Me moria IV 4-25 1,000 l 10:48: ml/hr, Infuse Over: 1 [...] ___ mg Insulin No Notes: Memoria Lispro 4-25 (Same as: l 04:08: Humalog ) Roll in palms of hands gently; Do not shake `vigorousl y. "Single Patient Use Only " WASTE: F/P - Black; E - Municipal Trash Bin Stable for 28 days at room temperatur e. Expires in days from ____Date Dextrose No 12.5 gm, Memor ia 50% Syringe 4-25 25 mL, l 04:08: Route: Edmund 00 IVP, Drug Form: INJ, Dosing Weight 93.295, kg, PRN, PRN Blood Glucose Results, Start date: 12/31/17 23:08:00 CDT, Duration: 30 day, Stop date: 01/30/18 23:07:00 CDT Glucagon No 1 mg, Memoria 4-25 Route: IM, l 04:08: Drug form: PDR/INJ, PRN, Dosing Weight 93.295, kg, PRN Blood Glucose Results, Start date: 12/31/17 23:08:00 CDT, Duration: 30 day, Stop date: 01/30/18 23:07:00 CDT Saline No Notes: Memoria Flush 0.9% 4-25 (Same as: l 04:07: BD Posiflush) Ondansetron No Notes: Ryan melodie 4-25 (Same as: l 04:07: Zofran ODT) Morphine No Notes: Memoria 4-25 (Same l 04:07: as:MORPhin e Sulfate) Acetaminoph No Notes: Do M emoria en 4-25 not exceed l 04:07: 4 gm/day. [place] (Same as: Tylenol) Acetaminoph No Notes: Ryan melodie en 325 MG / 4-25 (Same as: l Hydrocodone 04:07: Wink Larissa nn Bitartrate 00 325/5) Do 5 MG Oral not exceed Tablet 4gm/day of acetaminop hen. Sodium No 1,000 mL, Memori a Chloride 4-25 Rate: 75 l 0.9% IV 04:07: ml/hr, [place] 1,000 mL 00 Infuse over: 13.3 hr, Route: IV, Dosing Weight 93.295 kg, Total Volume: 1,000, Start date: 12/31/17 23:07:00 CDT, Duration: 30 day, Stop date: 01/30/18 23:06:00 CDT, 2.19, m2 glycopyrrol 2018-0 No Route: IV, Memoria ate (ANES) 4-16 Drug form: l 21:01: INJ, ONCE, Stop date: 12/23/17 16:01:00 CDT neostigmine 2017-0 No Route: IV, Memoria (ANES) 4-16 Drug form: l 21:01: INJ, ONCE, Stop date: 12/23/17 16:01:00 CDT ondansetron 2017-0 No Route: IV, Memoria (ANES) 4-16 Drug form: l 20:52: INJ, ONCE, Stop date: 12/23/17 15:52:00 CDT Hydralazine 2018-0 No 10 mg, Ryan melodie 416 Route: l 19:45: IVP, [place] 00 Q20Min, Dosing Weight 84.091, kg, PRN Elevated BP, Start date: 12/23/17 14:45:00 CDT, Duration: 2 doses or times, Stop date: Limited # of times Ondansetron 2018-0 No 4 mg, Memor ia 4-16 Route: l 19:45: IVP, ONCE, [place] 00 Dosing Weight 84.091, kg, PRN Nausea & Vomiting, Start date: 12/23/17 14:45:00 CDT Morphine 2018-0 No 2 mg, Memoria 4-16 Route: l 19:45: IVP, [place] 00 Q5Min, Dosing Weight 84.091, kg, PRN Pain Score 4-6, Start date: 12/23/17 14:45:00 CDT, Duration: 5 doses or times, Stop date: Limited # of times Naloxone 2018-0 No 0.4 mg, Memori a 4-16 Route: l 19:45: IVP, [place] 00 Q2MIN, Dosing Weight 84.091, kg, PRN Narcotic Reversal, Start date: 12/23/17 14:45:00 CDT, Duration: 8 doses or times, Stop date: Limited # of times Flumazenil 2018-0 No 0.2 mg, Ryan melodie 16 Route: l 19:45: IVP, PRN, Dosing Weight 84.091, kg, PRN Benzodiaze pine Reversal, Initial dose, Start date: 12/23/17 14:45:00 CDT, Duration: 30 day, Stop date: 01/22/18 14:44:00 CDT Hydromorpho 2017-0 No 0.5 mg, Mem oria ne 4 Route: l 19:45: IVP, Q5Min, Dosing Weight 84.091, kg, PRN Pain Score 7-10, Start date: 12/23/17 14:45:00 CDT, Duration: 4 doses or times, Stop date: Limited # of times rocuronium No Route: IV, M emoria (ANES) 4-16 Drug form: l 19:22: INJ, ONCE, Stop date: 12/23/17 14:22:00 CDT fentaNYL 0 No Route: IV, Mem oria (ANES) 4-16 Drug form: l 19:17: INJ, ONCE, Stop date: 12/23/17 14:17:00 CDT lidocaine 2017-0 No Route: IV, Me moria (ANES) 4-16 Drug form: l 19:17: INJ, ONCE, Stop date: 12/23/17 14:17:00 CDT propofol 2018-0 No Route: IV, Mem oria (ANES) 4-16 Drug form: l 19:17: INJ, ONCE, Stop date: 12/23/17 14:17:00 CDT ePHEDrine 2017-0 No Route: IV, Me moria (ANES) 4-16 Drug form: l 19:02: INJ, ONCE, Stop date: 12/23/17 14:02:00 CDT ceFAZolin 2017-0 No Route: IV, Me moria (ANES) 4-16 Drug form: l 19:02: INJ, ONCE, Stop date: 12/23/17 14:02:00 CDT acetaminoph 2017-0 No Route: IV, Memoria en (ANES) 16 Drug form: l 10 mg 18:24: INJ, Start Brennen n 00 date: 12/23/17 13:24:00 CDT, Stop date: 12/23/17 14:24:00 CDT Lactated 2017-0 No Route: IV, Mem oria Ringers -16 Total l Injection 18:12: Volume: Larissa nn IV (ANES) 00 1,000, 1000 mL Start date: 12/23/17 13:12:00 CDT, Stop date: 12/23/17 14:12:00 CDT Lidocaine 2017-0 No 0.5 mL, Memor ia Hydrochlori 12-23 Route: l de 10 MG/ML 16:00: INTRADERM, Edmund Injectable 00 Dosing Solution Weight 84.091, kg, ONCALL, Start date: 12/23/17 11:00:00 CDT, Duration: 1 doses or times Sodium 2017-0 No 1,000 mL, Memori a Chloride 12-23 Rate: 25 l 0.9% IV 15:33: ml/hr, Edmund 1000 mL 00 Infuse over: 40 hr, Route: IV, Dosing Weight 84.091 kg, Total Volume: 1,000, Start date: 12/23/17 10:33:00 CDT, Duration: 30 day, Stop date: 01/22/18 10:32:00 CDT, 2.06, m2 Ancef + 2017- Yes Notes: Memoria sterile -16 (Same As: l water 20 mL 15:33: Ancef, Herm donavon 00 Kefzol) MEDICATION WASTE Product Size: 1000 mg Product Wasted: ___ mg amLODIPine 2018-0 Yes 5 mg = 1 Mem oria 5 mg oral 3-26 tab, PO, l tablet 18:46: Daily, # Edmund 05 90 tab, 1 Refill(s), Pharmacy: [facility] [id number], DUE FOR AN OFFICE VISIT. PLEASE CALL DR. CRUZ' S OFFICE TO MAKE AN APT. lisinopril 2018-0 No 20 mg = 1 Me moria 20 mg oral 3-26 tab, PO, l tablet 18:44: Daily, # Edmund 59 90 tab, 1 Refill(s), Pharmacy: [facility] [place] [id number], DUE FOR AN OFFICE VISIT. PLEASE CALL DR. COLVIN 'S OFFICE TO MAKE AN APT. Metoprolol 2018 Yes 100 mg = 1 M emoria Succinate 3-26 tab, PO, l ER 100 mg 18:44: Daily, # Herm donavon oral 22 90 tab, 1 tablet, Refill(s), extended Pharmacy: release [facility] [place] [id number] atorvastati Yes 40 mg = 1 M emoria n 40 mg 3-26 tab, PO, l oral tablet 18:44: Daily, # He rmann 00 90 tab, 1 Refill(s), Pharmacy: [facility] [place] [id number] dapaglifloz Yes 5 mg = 1 Me moria in 3-22 tab, PO, l propanediol 16:04: Daily, 0 He rmann 5 MG Oral 00 Refill(s) Tablet [Farxiga] atorvastati No 40 mg = 1 M emoria n 40 mg -22 tab, PO, l oral tablet 16:04: Daily, 0 He rmann 00 Refill(s) apixaban 5 2016-09 Yes 5 mg = 1 Mem oria MG Oral 1-10 tab, PO, l Tablet 22:10: BID, # 180 Larissa nn [Eliquis] 44 tab, 1 Refill(s), Pharmacy: [facility] [place] [id number] Metoprolol Metoprolol Yes Uni vers Tartrate 25 Tartrate 25 i ty of MG Oral MG Oral [place] Tablet Tablet Physici ans GlipiZIDE GlipiZIDE Yes Unive rs 10 MG Oral 10 MG Oral ity of Tablet Tablet [place] Physici ans PriLOSEC 10 PriLOSEC 10 Yes U nivers MG CPDR MG CPDR ity of [place] Physici ans Atorvastati Atorvastati Yes U nivers n Calcium n Calcium ity o f 40 MG Oral 40 MG Oral Qasim as Tablet Tablet Physici ans Travatan Z Travatan Z Yes Uni vers 0.004 % 0.004 % ity of Ophthalmic Ophthalmic Qasim as Solution Solution Physici ans Deedee Deedee Yes Univers Aspirin Aspirin ity of TABS TABS [place] Physici ans MetFORMIN MetFORMIN Yes Unive rs [...] vers HCl CAPS HCl CAPS ity of [place] Physici ans Ciprofloxac Ciprofloxac Yes U nivers [...] Oral MG Oral ity of Tablet Tablet [place] [facility]ici ans Eliquis 2.5 Eliquis 2.5 Yes U nivers MG Oral MG Oral ity of Tablet Tablet [place] Physici ans Vital Signs Vital Name Observation Time Observation Value Comments Source Systolic (mm Hg) 2020-02-24 14:38:00 Ryan rial [place] Diastolic (mm Hg) 2020-02-24 14:38:00 Mem orial [place] Heart Rate 2020-02-24 14:38:00 [facility] Height 2020-02-24 14:38:00 182.88 cm [facility] Weight 2020-02-24 14:38:00 [facility] BMI Calculated 2020-02-24 14:38:00 Memori al [place] Systolic (mm Hg) 2019-11-02 17:12:00 Ryan rial [place] Diastolic (mm Hg) 2019-11-02 17:12:00 Mem orial [place] Heart Rate 2019-11-02 17:12:00 [facility] Height 2019-11-02 17:12:00 180.34 cm [facility] Weight 2019-11-02 17:12:00 [facility] BMI Calculated 2019-11-02 17:12:00 Memori al Demund Systolic (mm Hg) 2019-05-04 15:24:00 Ryan rial [place] Diastolic (mm Hg) 2019-05-04 15:24:00 Mem orial [place] Heart Rate 2019-05-04 15:24:00 [facility] [place] Height 2019-05-04 15:24:00 180.34 cm [facility] [place] Weight 2019-05-04 15:24:00 [facility] [place] BMI Calculated 2019-05-04 15:24:00 Memori al [place] BMI Calculated 2018-11-03 16:43:00 Memori al [place] Weight 2018-11-03 16:43:00 [facility] [place] Height 2018-11-03 16:43:00 177.8 cm [facility] [place] Systolic (mm Hg) 2018-11-03 16:43:00 Ryan rial [place] Diastolic (mm Hg) 2018-11-03 16:43:00 Mem orial [place] Heart Rate 2018-11-03 16:43:00 [facility] [place] Height 2018-09-17 10:37:00 71 [in_us] [facility] Physician s Weight 2018-09-17 10:37:00 198 [lb_av] [facility] Physician s Body Mass Index 2018-09-17 10:37:00 27.62 kg/m2 Unive [facility] Calculated [place] Physician s Heart Rate 2018-05-05 16:44:00 [facility] [place] Systolic (mm Hg) 2018-05-05 16:44:00 Ryan rial [place] Diastolic (mm Hg) 2018-05-05 16:44:00 Mem orial [place] Weight 2018-05-05 16:44:00 [facility] [place] BMI Calculated 2018-05-05 16:44:00 Memori al [place] Height 2018-05-05 16:44:00 177.8 cm [facility] [place] BMI Calculated 2018-02-24 15:01:00 Memori al [place] Weight 2018-02-24 15:01:00 [facility] [place] Height 2018-02-24 15:01:00 182.88 cm [facility] [place] Systolic (mm Hg) 2018-02-24 15:01:00 Ryan rial [place] Diastolic (mm Hg) 2018-02-24 15:01:00 Mem orial [place] Heart Rate 2018-02-24 15:01:00 [facility] [place] Temperature Oral (F) 2018-01-02 21:08:00 97.8 F [facility] [place] Systolic (mm Hg) 2018-01-02 21:08:00 Ryan rial [place] Diastolic (mm Hg) 2018-01-02 21:08:00 Mem orial [place] Respitory Rate 2018-01-02 21:08:00 Memori al [place] Heart Rate 2018-01-02 21:08:00 [facility] [place] Respitory Rate 2018-01-02 16:25:00 Memori al [place] Temperature Oral (F) 2018-01-02 16:25:00 98.2 F [facility] [place] Heart Rate 2018-01-02 16:25:00 [facility] [place] Systolic (mm Hg) 2018-01-02 16:25:00 Ryan rial [place] Diastolic (mm Hg) 2018-01-02 16:25:00 Mem orial [place] Heart Rate 2018-01-02 12:58:00 [facility] [place] Respitory Rate 2018-01-02 12:58:00 Memori al [place] Systolic (mm Hg) 2018-01-02 12:58:00 Ryan rial [place] Diastolic (mm Hg) 2018-01-02 12:58:00 Mem orial [place] Temperature Oral (F) 2018-01-02 12:58:00 98.3 F [facility] [place] BMI Calculated 2018-01-01 03:40:00 Memori al [place] Weight 2018-01-01 03:40:00 [facility] [place] Height 2018-01-01 03:40:00 182.88 cm [facility] [place] Systolic (mm Hg) 2017-12-23 21:45:00 Ryan rial [place] Diastolic (mm Hg) 2017-12-23 21:45:00 Mem orial [place] Respitory Rate 2017-12-23 21:45:00 Memori al [place] Systolic (mm Hg) 2017-12-23 21:39:00 Ryan rial [place] Diastolic (mm Hg) 2017-12-23 21:39:00 Mem orial [place] Respitory Rate 2017-12-23 21:39:00 Memori al [place] Systolic (mm Hg) 2017-12-23 21:24:00 Ryan rial [place] Diastolic (mm Hg) 2017-12-23 21:24:00 Mem orial [place] Respitory Rate 2017-12-23 21:24:00 Memori al [place] Heart Rate 2017-12-23 15:46:00 [facility] [place] BMI Calculated 2017-12-18 15:02:00 Memori al [place] Weight 2017-12-18 15:02:00 [facility] [place] Height 2017-12-18 15:02:00 180.34 cm [facility] [place] BMI Calculated 2017-11-28 16:03:00 Memori al [place] Heart Rate 2017-11-28 16:03:00 [facility] [place] Systolic (mm Hg) 2017-11-28 16:03:00 Ryan rial [place] Diastolic (mm Hg) 2017-11-28 16:03:00 Mem orial [place] Height 2017-11-28 16:03:00 177.8 cm [facility] [place] Weight 2017-11-28 16:03:00 [facility] [place] Procedures Procedure Date / Time Performing Clinician Source Performed Pre Op Promise 29 Survey 2018-09-10 00:00:00 [facility] Measurement of 2018-02-24 15:04:00 [facility] dickson post-voiding residual urine and/or bladder capacity by ultrasound, non-imaging History of Heart Surgery [facility] Physicians History of Angioplasty [facility] Internal Carotid Artery Physicia ns CABG - Coronary artery [facility] Edmund bypass graft<sup>1</sup> Cardiac [facility] [place] catheterization<sup>2</s up> Carotid [facility] Edmund endarterectomy<sup>3</beckett p> Repair of diaphragmatic [facility] [place] hiatal hernia<sup>4</sup> Encounters Start End Encounter Admission Attending Care Care Encounter Source Date/Time Date/Time Type Type Clinicians Facility Department ID 2020-02-24 2020-02-24 Outpatient Clif [facility] [id number] 09:00:00 23:59:59 Gabrielle L 16 2019-11-02 2019-11-02 Outpatient Familia [facility] [id number] 11:00:00 23:59:59 Syed Samaniego 14 2019-05-04 2019-05-04 Outpatient Familia [facility] [id number] 10:15:00 23:59:59 Syed Samaniego 13 2018-10-22 2018-11-20 Outpatient oTro [id number] 08:38:00 23:59:00 Yakov [id number] Strake [id number] 2018-11-03 2018-11-03 [place] [id number] 10:30:00 23:59:59 Syed Aden 12 2018-09-22 2018-10-21 Outpatient Toro [id number] 09:51:00 23:59:00 Yakov [id number] Lakesha [id number] 2018-09-17 2018-09[facility] [id number] 09:30:00 09:30:00 t; Carlos Eduardo YAÑEZ [facility] [place], Spine S Allison Wahl M.D. [place] ans 2018-05-05 2018-05-05 [place] [id number] 11:15:00 23:59:59 Syed Aden 09 2018-03-19 2018-03-20 Outpatient MG [facility] [id number] 13:39:00 23:59:59 06 2018-02-24 2018-02-24 [place] [id number] 09:15:00 23:59:59 Robbi 11 2018-01-16 2018-01-16 [place] [id number] 14:15:00 14:15:00 Robbi 10 2018-01-16 2018-01-16 [place] [id number] 14:15:00 14:15:00 Robbi 10 2018-01-06 2018-01-07 Outpatient MG MG [id number] 11:57:00 23:59:59 05 2017-12-31 2018-01-02 Outpatient Asad, Latonya Hanks [facility] [id number] 22:14:00 16:55:00 A 14 2017-12-31 2017-12-31 Outpatient Katy [facility] [id number] 22:12:00 22:12:00 Neri Javed 2017-12-23 2017-12-23 Outpatient Fer Gomez [facility] [id number] 05:43:00 17:20:00 Efren Duvall 2017-11-28 2017-11-28 Outpatient Nancy [facility] [id number] 10:45:00 23:59:59 Laith Santana 2017-11-28 2017-11-28 Outpatient Nancy [facility] [id number] 10:45:00 23:59:59 Laith Santana 2017-07-19 2017-07-20 Outpatient [facility] [id number] 16:08:00 23:59:59 04 2017-04-30 2017-04-30 Appointrene [facility] [id number] Univers 11:30:00 11:30:00 t; Carlos Eduardo YAÑEZ it y of Sandra [facility] M.D. ans Results Test Test Test Results Result Source Description Time Comments Comments [U] XRAY SPINE 2018-09- Images acquired, not University of LUMBOSACRAL MIN 09 reported on this Qasim as 4 VWS [id number] 11:15:00 accession number. Physic ians [U] XRAY HIPS 2018-09- Images acquired, not U niversity of BILATERAL MIN 2 09 reported on this Qasim as VWS AND AP 07:43:00 accession number. Physici ans PELVIS [id number] TISSUE EXAM 2018-05- Surgical Pathology 10 Report 17:28:00 Case: [id number] Authorizing Provider: Byron Ardon MD Collected: 05/13/2018 1448 Ordering Location: [facility] PERIOPERATIVE Received: 05/14/2018 0818 SERVICES Pathologist: [...] FAST MICROORGANISMS Signing Pathologist Direct Phone Line: [phone] ly signed by Eze Guzman MD on 05/19/2018 at 5:28 PMPreliminary result electronically signed by Eze Guzman MD on 05/16/2018 at 11:49 AMSpecial stains for AFB and GMS were negative for acid fast and fungal microorganisms, respectively. [id number] bladder emptying A. Mesh; B. Bladder with [...] surface throughout. No discrete masses are identified. Intermediate Teacher sections are submitted in cassettes C1-C19. DB/plPerformed POCT-GLUCOSE METER 2018-05-16 07:37:00 Test Item Value Reference Range Interpretation Comme [facility] POC-GLUCOSE METER (BEAKER) (test 184 mg/dL 70-110 H TESTED AT [facility] [address] [facility] code = 1538) [facility] 7703 0 BASIC METABOLIC [id number] 06:19:00 Test Item Value Reference Range Interpretation [...] 0-0 (BEAKER) (test code = 413) POCT-GLUCOSE [id number] 21:51:00 Test Item Value Reference Range Interpretation Comments POC-GLUCOSE METER 216 mg/dL 70-110 H TESTED AT [facility] [address] ([facility]) (test code = [place] 1538) [address] POCT-GLUCOSE [id number] 19:28:00 Test Item Value Reference Range Interpretation Comments POC-GLUCOSE METER 186 mg/dL 70-110 H TESTED AT [facility] 67[address] ([facility]) (test code = [place] 1538) [address] POCT-GLUCOSE [id number] 16:57:00 Test Item Value Reference Range Interpretation Comments POC-GLUCOSE METER 215 mg/dL 70-110 H TESTED AT [facility] 67[address] (BEAKER) (test code = TAL[place] 1538) [address] POCT-GLUCOSE [id number] 12:43:00 Test Item Value Reference Range Interpretation Comments POC-GLUCOSE METER 223 mg/dL 70-110 H TESTED AT [facility] 67[address] (BEAKER) [facility] [place] 1538[facility] [address] POCT-GLUCOSE [id number] 08:13:00 Test Item Value Reference Range Interpretation Comments POC-GLUCOSE METER 157 mg/dL 70-110 H TESTED AT [facility] 67[address] (BEAKER) (test code = [facility] Lexii [facility] 1538) [address] GENTAMICIN LEVEL, [id number] 05:51:00 Test Item Value Reference Range Interpretation Comments GENTAMICIN TROUGH (BEAKER) (test 1.9 ug/mL 0.5-1.0 H code = 398) Dosing Target Level (mcg/mL)1-1.5 mg/kg q 8-12 HR 0.5-1.03-7 mg/kg q 24 HR <0.5BASIC METABOLIC [id number] 05:47:00 Test Item Value Reference Range Interpretation [...] 0-0 (BEAKER) (test code = 413) POCT-GLUCOSE [id number] 21:47:00 Test Item Value Reference Range Interpretation Comments POC-GLUCOSE METER 220 mg/dL 70-110 H TESTED AT [place] [address] ([facility]) (test code = [place] 1538) [address] POCT-GLUCOSE [id number] 17:06:00 Test Item Value Reference Range Interpretation Comments POC-GLUCOSE METER 211 mg/dL 70-110 H TESTED AT [place] [address] ([facility]) (test code = [place] 1538) [address] POCT-GLUCOSE [id number] 11:44:00 Test Item Value Reference Range Interpretation Comments POC-GLUCOSE METER 225 mg/dL 70-110 H TESTED AT [place] [address] ([facility]) (test code = [place] 1538) [address] POCT-GLUCOSE [id number] 08:29:00 Test Item Value Reference Range Interpretation Comments POC-GLUCOSE METER 201 mg/dL 70-110 H TESTED AT [facility] 6720 (BEAKER) (test code = [place] 1538) [address] BASIC METABOLIC [id number] 06:04:00 Test Item Value Reference Range Interpretation [...] 0-0 (BEAKER) (test code = 413) POCT-GLUCOSE [id number] 21:39:00 Test Item Value Reference Range Interpretation Comments POC-GLUCOSE METER 275 mg/dL 70-110 H TESTED AT [facility] 67[address] (BEAKER) (test code = [place] 1538) [address] BASIC METABOLIC [id number] 19:42:00 Test Item Value Reference Range Interpretation [...] % 40.1-51.0 L 411) MEAN CORPUSCULAR VOLUME ([facility]) 98.1 fL 79.0-92.2 H (test code = 753) MEAN CORPUSCULAR HEMOGLOBIN 31.5 pg 25.7-32.2 ([facility]) (test code = 751) MEAN CORPUSCULAR HEMOGLOBIN CONC 32.1 GM/DL 32.3-36.5 L ([facility]) (test code = 752) RED CELL DISTRIBUTION WIDTH 13.0 % 11.6-14.4 ([facility]) (test code = 412) PLATELET COUNT ([facility]) (test 209 K/CU MM 150-450 code = 756) MEAN PLATELET VOLUME ([facility]) 10.3 fL 9.4-12.4 (test code = 754) NUCLEATED RED BLOOD CELLS 0 /100 WBC 0-0 ([facility]) (test code = 413) POCT-GLUCOSE [id number] 18:50:00 Test Item Value Reference Range Interpretation Comments POC-GLUCOSE METER 197 mg/dL 70-110 H TESTED AT [place] [address] ([facility]) (test code = [facility] 1538) [address] VANCOMYCIN LEVEL, [id number] 12:29:00 Test Item Value Reference Range Interpretation Comments VANCOMYCIN TROUGH ([facility]) (test 20.9 ug/mL 10.0-20.0 H code = 522) Please draw trough at 1330 (30 minutes prior to scheduled vancomycin dose at 1400).POCT-GLUCOSE [id number] 07:17:00 Test Item Value Reference Range Interpretation Comments POC-GLUCOSE METER 148 mg/dL 70-110 H TESTED AT [place] [address] ([facility]) (test code = [facility] 1538) [address] POCT-GLUCOSE [id number] 06:09:00 Test Item Value Reference Range Interpretation Comments POC-GLUCOSE METER 149 mg/dL 70-110 H TESTED AT [place] [address] ([facility]) (test code = [facility] 1538) [address] BASIC METABOLIC [id number] 06:04:00 Test Item Value Reference Range Interpretation Comments SODIUM ([facility]) 140 meq/L 136-145 (test code = 381) [...] 0-0 (BEAKER) (test code = 413) POCT-GLUCOSE [id number] 21:17:00 Test Item Value Reference Range Interpretation Comments POC-GLUCOSE METER 164 mg/dL 70-110 H [facility] AT [place] [address] [facility] (test code = TALA Shultz [facility] 1538) [address] POCT-GLUCOSE [id number] 16:39:00 Test Item Value Reference Range Interpretation Comments POC-GLUCOSE METER 225 mg/dL 70-110 H TESTED AT [place] [address] ([facility]) (test code = TALA Shultz [facility] 1538) [address] POCT-GLUCOSE [id number] 12:09:00 Test Item Value Reference Range Interpretation Comments POC-GLUCOSE METER 186 mg/dL 70-110 H TESTED AT [place] [address] ([facility]) (test code = TALA Shultz [facility] 1538) [address] POCT-GLUCOSE [id number] 08:50:00 Test Item Value Reference Range Interpretation Comments POC-GLUCOSE METER 194 mg/dL 70-110 H TESTED AT [place] [address] ([facility]) (test code = RHIANNAMA Lexii [facility] 1538) [address] BASIC METABOLIC [id number] 06:04:00 Test Item Value Reference Range Interpretation [...] 0-0 (BEAKER) (test code = 413) POCT-GLUCOSE [id number] 00:11:00 Test Item Value Reference Range Interpretation Comments POC-GLUCOSE METER 143 mg/dL 70-110 H TESTED AT [place] [address] ([facility]) (test code = TALA Shultz [facility] 1538) [address] POCT-GLUCOSE [id number] 17:16:00 Test Item Value Reference Range Interpretation Comments POC-GLUCOSE METER 261 mg/dL 70-110 H TESTED AT [place] [address] ([facility]) (test code = TALA Shultz [place] 1538) [address] POCT-GLUCOSE [id number] 10:04:00 Test Item Value Reference Range Interpretation Comments POC-GLUCOSE METER 153 mg/dL 70-110 H TESTED AT [place] [address] ([facility]) (test code = TALA Shultz [facility] 1538) [address] BASIC METABOLIC [id number] 17:28:00 Test Item Value Reference Range Interpretation [...] S NOT APPLICABLE FOR DIALYSIS PATIEN TS. [id number] 17:26:00 Test Item Value Reference Range Interpretation Comments PARTIAL THROMBOPLASTIN TIME 28.7 seconds 22.5-36.0 (BEAKER) (test code = 760) PROTHROMBIN TIME/[id number] 17:25:00 Test Item Value Reference Range Interpretation [...] (test code = 2801) RAD, CHEST, 2 [id number] 16:06:00Reason for exam:->screening prior to anesthesiaFINAL REPORT [...] MDReport Verified Date/Time: 04/30/2018 16:06:13 Reading Location: [address] Radiology Reading Room CHEM [id number] 08:35:002.2[facility] PjajbcoFMWGLRGRHMMU4477-55-29 08:35:0012.7[facility] LymzafdWNBEKJFDGJYV6168-65-42 08:35:0028[facility] [place] BWHCIWFWMCBD0781-92-99 08:35:007.7[facility] NnvwiwuLRALMWWREUXC0186-14-48 08:35:0012[facility] BeemdhrFHVAEEPJTNDG7453-74-43 08:35:39495Qwnrwure [place] WZRGPTAMWAFC6941-74-93 08:35:53817Jdjodxal GahzuirMXIMPSQUEUQO9320-26-27 08:35:003.7[facility] VloulnoHGODACDRIFKV7314-75-40 08:35:0085[facility] [place] ZAYYAGMNMEPG6097-49-27 08:35:34227Dzxbwogf FcaoxfkIKDUULBNCZFW0825-64-28 08:35:000.81[facility] YmtmfzwFLYAYGLRJY7019-19-29 08:35:008.2[facility] [place] EKNGYOURDJ8155-69-20 08:35:56474Cuadffto JrtriavOXCGYXADEW3673-38-93 08:35:00 14.0[facility] UqqxygrASMVBIUFHK9829-46-05 08:35:009.7[facility]ann[facility]OLOGY 2018-01-02 08:35:003.93[facility] YqycaifDMEHXGQXDI0268-18-89 08:35:0012.0[facility] LsqrzcyKIFZZNXUBA6990-99-13 08:35:0035.4[facility] LlaiybyRNWSSJJJXY0675-89-00 08:35:0090.1[facility] RnucnteQEHVILMYNE9329-81-63 08:35:00 Test Item Value Reference Range Interpretation Comments MCH (test code = MCH) 30.6 pg 27.0-31.0 [facility] GvjzfzpMNWYZKRKLK6434-89-85 08:35:0034.0[facility]ann[facility]MATOLOGY 2018-01-02 08:35:000.1[facility] JohgvsnUXROHHEJJW9153-42-03 08:35:0066.9[facility] QaijjgvXNDXJNFWDL8908-24-99 08:35:004.7[facility] PgwjkugJBCHSLDQUB8008-32-17 08:35:001.1[facility] UigtslmYJZTGSPJBT4846-66-91 08:35:0019.1[facility] LLUGRJABFT7122-17-47 08:35:008.2[facility] ZrpgpskAJLIKOGHWQ6337-38-70 08:35:006.5 [facility] UygipueZZORSATPAP3427-76-21 08:35:000.5[facility]ann[facility]MATOLOGY 2018-01-02 08:35:000.8[facility] OspgjqzCTBONZSQVM5786-94-18 08:35:001.9[facility] HermannCARDIAC PLPJABS3294-78-50 05:05:45989Zvikxeec HermannCHEM OXYRQ4309-24-94 05:05:001.4[facility] KsobbyzLHDEKSBHPYEC0266-67-20 05:05:0010.5[facility] [place] JUFKKVTIBEVK4484-89-13 05:05:0033[facility] LdghhruCJEWPQPCUABM4968-47-94 05:05:00 8.2[facility] ZpljarfHFVDZFCUHLWC8656-59-04 05:05:003.5[facility] DHWXJFSKGCCZ4070-24-15 05:05:96705Fpncijnf HwrijirTLATZEKXNABT5756-48-03 05:05:32151Llstjjdg UjvgzynASZKGETMSMYQ7254-86-76 05:05:0018[facility] [place] CBJMJPIDRFQE0954-50-13 05:05:41772Kvddmmvx GislxsxNZPARWDYYGCB2592-79-72 05:05:0080[facility] IeqwrfnJSKWMXRKFCJY7571-14-78 05:05:000.92[facility] [place] RLYEJVGTSE7668-22-05 05:05:006.9[facility] BszkgxsUVXWFYMUOS1543-42-60 05:05:001.9 [facility] FvxpuisENEHMQLEOK5123-90-99 05:05:000.8[facility]annHEMATOLOGY 2018-01-01 05:05:000.1[facility] TifwfhcMHTKEFZJPO5093-35-41 05:05:000.6[facility] MzawtmfUCKCRIOSCZ4507-71-85 05:05:0066.9[facility] CmmpbfeSZDEPBGUED3403-59-08 05:05:000.9[facility] McvwgdtQCEHNURJXT2807-02-18 05:05:005.6[facility] ULRIMICUQD5764-10-17 05:05:007.8[facility] EhpvzmbEBUIUYBXJT1269-54-61 05:05:00 18.8[facility] VexplbpKMQIYTBQOB9185-01-97 05:05:0014.3[facility]annHEMATOLOGY 2018-01-01 05:05:06421Yhojchba TsxoxunCNFWXPQYWX4593-75-48 05:05:008.2[facility] GndxtsmRVNSUVWHIX1421-26-74 05:05:0010.3[facility] NofktywYZLLLERSDL3445-95-17 05:05:0033.9[facility] RovqozxTSTFBLNONB5406-36-50 05:05:004.35[facility] PQSPXJNCEB2228-68-12 05:05:0013.3[facility] TlyfkasTOFVNBNLCM1109-75-56 05:05:00 39.3[facility] VmtltlbMAJKQYRYCK9971-50-85 05:05:0090.5[facility]ann[facility]MATOLOGY 2018-01-01 05:05:00 Test Item Value Reference Range Interpretation Comments MCH (test code = MCH) 30.6 pg 27.0-31.0 [facility] YPGRS4554-52-70 04:41:80232Vwehoyre HermannURINE AND ARANQ6673-18-03 04:41:0085[facility] XZRZE5373-54-18 04:41:00 Moderate *ABN*(12/31/17 11:41 PM)[facility] VCPVL8215-46-04 04:41:004.0[facility] KEDUW9763-72-56 04:41:00 Test Item Value Reference Range Interpretation Comments UA pH (test code = UA pH) 7.0 1 5.0-8.0 [facility] SAKFR3871-07-51 04:41:00Moderate *ABN*(12/31/17 11:41 PM)[facility] PTXBH7734-22-12 04:41:0072[facility] CHDDQ2647-39-74 04:41:00Negative *NA*(12/31/17 11:41 PM)[facility] BXWEL5383-06-47 04:41:00Negative (12/31/17 11:41 PM)[facility] KGROI1415-00-83 04:41:00Slight *ABN*(12/31/17 11:41 PM)[facility] GNAUE6060-72-08 04:41:00 Test Item Value Reference Range Interpretation Comments UA Spec Grav (test code = UA Spec 1.018 1 Grav) [facility] HODOM2971-01-44 04:41:00Dark Yellow *NA*(12/31/17 11:41 PM)[facility] PzbszotMGPAJSIHCYYY6888-96-47 15:30:004.3[facility] [place] RSKNBJUJMLSW0475-28-27 15:30:92218Uyumqwbs UtvxunwVDNVLUQAHQQD3465-10-34 15:30:0028[facility] EhkrltjCTBCRPSJEZWR6426-67-17 15:30:009.8[facility] [place] HEESYPZTFMWO5772-97-37 15:30:10275Galuucws PwmuwhlGIWGKMMGJQXR5865-55-49 15:30:11831Ydslzahx YgabztdVREAGLOOUVPI6540-85-91 15:30:0017[facility] HRNHJQDCAQTC7914-19-25 15:30:0063[facility] TdopkpfJDNSJEUKWFDI4870-64-92 15:30:00 1.12[facility] HifhdzvDXAMEGEDGZXM6291-97-39 15:30:0012.3[facility] [place] PQEMICMYHK9857-31-85 15:30:0043.7[facility] QfvlwkpTYHTWWMHTA7242-02-63 15:30:00 14.7[facility]
[2020-07-06 16:31] LABS: ALT/SGPT 16 U/L (12-78); AST/SGOT 14 U/L (15-37); Alkaline Phosphatase 90 U/L (45-117); BUN Blood Urea Nitrogen 16 mg/dL (7-18); Bicarbonate 28 mmol/L (21-32); Bilirubin Direct 0.4 mg/dL (0-0.2); Bilirubin Total 1.6 mg/dL (0.2-1.0); Glucose Level 175 mg/dL (74-106); NT PRO-BNP 6044 pg/mL (<450); Phosphorus 2.7 mg/dL (2.5-4.9); Protein, Total 7.3 g/dL (6.4-8.2); Sodium Level 141 mmol/L (136-145); Troponin (Emerg Dept Use Only) < 0.02 ng/mL (0.0-0.045)
[2020-07-06] MEDS ORDERED: FOLIC ACID 5 MG/ML VIAL ONE (16:41)
--- NOTE | 2020-07-06 16:43 | RAD REPORT ---
EXAM DESCRIPTION: Penelope Single View07/06/2020 3:45 pm CLINICAL HISTORY: Cardiomegaly/CVA COMPARISON: May 2020 FINDINGS: The lungs appear clear of acute infiltrate. The heart is moderately enlarged. Postsurgical changes involve the chest. IMPRESSION: No acute abnormalities displayed
[2020-07-06 17:12] LABS: Magnesium 1.1 mg/dL (1.8-2.4)
--- NOTE | 2020-07-06 17:31 | ER ---
Nurse's Notes [facility] Name: Abisai Salinas Age: 79 yrs Sex: Male : 1940 Arrival Date: 07/06/2020 Time: 14:52 Bed 4 Private MD: out of town, doctor Diagnosis: Cerebral infarction;Hypomagnesemia Presentation: 07/06 14:53 Chief complaint: EMS states: L arm weakness and pain, family also reports confusion, ph upon EMS arrival L arm noted to be cool to touch and flaccid, L foot drop also noted, hx of TIA and electrolyte imbalance, pt A\T\O upon arrival to ED, no drift or weakness noted to L arm, family reports that last known well was last night before bed. Coronavirus screen: Client denies travel out of the [place] in the last 14 days. At this time, the client does not indicate any symptoms associated with coronavirus-19. Ebola Screen: No symptoms or risks identified at this time. Initial Sepsis Screen: Does the patient meet any 2 criteria? No. Patient's initial sepsis screen is negative. Does the patient have a suspected source of infection? No. Patient's initial sepsis screen is negative. Risk Assessment: Do you want to hurt yourself or someone else? Patient reports no desire to harm self or others. Onset of symptoms was July 06, 2020. 14:53 Method Of Arrival: EMS: 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 - Social history:: Smoking status: Patient denies any tobacco usage or history of. Screenin:59 Abuse screen: Denies threats or abuse. Denies injuries from another. Nutritional ph screening: No deficits noted. Tuberculosis screening: No symptoms or risk factors identified. Fall Risk No fall in past 12 months (0 pts). Secondary diagnosis (15 points) TIA, impaired mobility, IV access (20 points). Ambulatory Aid- Crutches/Cane/Walker (15 pts). Gait- Impaired (20 pts.). Mental Status- Oriented to own ability (0 pts). Total Lombardi Fall Scale indicates High Risk Score (45 or more points). Fall prevention measures have been instituted. Side Rails Up X 2 Placed Close to Nursing Station Frequent Obs/Assessments Occuring Family Present and informed to notify staff if the need to leave the bedside As available patient and family educated on Fall Prevention Program and Strategies. 18:42 Patient has been NPO before screening. The patient is alert, able to follow commands. ph The patient does not exhibit slurred or garbled speech The patient is not exhibiting difficulty speaking. The patient does not exhibit difficulty understanding words. The patient is able to swallow own secretions with no drooling or need for suction. Patient tolerated one teaspoon of water. No drooling, immediate coughing, gurgling, or clearing of the throat was noted. The patient tolerated 90mL of water. No drooling, immediate coughing, gurgling, or clearing of the throat was noted. The patient passed the bedside swallow screening. Oral medications may be given as ordered. Contact Physician for further diet orders. Provider notified of bedside swallow screening results: Manny JOSEPH. Assessment: 15:13 General: Appears in no apparent distress. comfortable, well groomed, Behavior is calm, ph cooperative, appropriate for age. Pain: Denies pain. Neuro: Level of Consciousness is awake, alert, obeys commands, Oriented to person, place, situation, Moves all extremities. 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 Denies blurred vision paresthesias numbness headache. Cardiovascular: Capillary refill < 3 seconds in bilateral fingers Patient's skin is warm and dry. Respiratory: Airway is patent Respiratory effort is even, unlabored, Respiratory pattern is regular, symmetrical, Denies cough, shortness of breath. GI: No signs and/or symptoms were reported involving the gastrointestinal system. Derm: Skin is intact, is fragile, is thin, Skin is pink, warm \T\ dry. Musculoskeletal: Circulation, motion, and sensation intact. Range of motion: intact in all extremities. 15:44 Reassessment: Patient appears in no apparent distress at this time. Patient and/or ph family updated on plan of care and expected duration. Pain level reassessed. Patient is alert, oriented x 3, equal unlabored respirations, skin warm/dry/pink. 16:23 Reassessment: Patient appears in no apparent distress at this time. Patient and/or ph family updated on plan of care and expected duration. Pain level reassessed. Patient is alert, oriented x 3, equal unlabored respirations, skin warm/dry/pink. 17:57 Reassessment: Patient appears in no apparent distress at this time. Patient and/or ph family updated on plan of care and expected duration. Pain level reassessed. Patient is alert, oriented x 3, equal unlabored respirations, skin warm/dry/pink. 18:40 Reassessment: Patient appears in no apparent distress at this time. Patient and/or ph family updated on plan of care and expected duration. Pain level reassessed. Pt awake and alert, oriented to person and place, denies pain, passed swallow screen w/ no difficulty noted. Pt hallucinating, states that he sees sorensen on the wall, reports that this is a new problem. 19:52 Reassessment: Manny JOSEPH and Jamarcus MURRAY notified pt cardiac rhythm noted to be VTACH on the sg bedside monitor, will continue to monitor. Vital Signs: 14:53 BP 155 / 78; Pulse 72; Resp 18; Temp 98.0(O); Pulse Ox 99% on R/A; Weight 89.36 kg; ph Height 6 ft. 0 in. (182.88 cm); Pain 0/10; 15:49 BP 156 / 98; Pulse 66; Resp 16; Pulse Ox 96% on R/A; ph 16:23 BP 139 / 100; Pulse 81; Resp 12; Pulse Ox 100% on 2 lpm NC; ph 17:30 BP 166 / 94; Pulse 83; Resp 24; Pulse Ox 96% ; sv 18:32 BP 148 / 64; Pulse 74; Resp 18; Pulse Ox 97% on R/A; ph 19:58 BP 120 / 71; Pulse 65; Resp 18; Temp 98.0; Pulse Ox 98% on R/A; sg 14:53 Body Mass Index 26.72 (89.36 kg, 182.88 cm) ph Susan Coma Score: 15:40 Eye Response: spontaneous(4). Verbal Response: oriented(5). Motor Response: obeys jr8 commands(6). Total: 15. 19:58 Eye Response: spontaneous(4). Verbal Response: oriented(5). Motor Response: obeys sg commands(6). Total: 15. NIH Stroke Scale Scores: 15:40 NIHSS Score: 1 jr ED Course: 14:52 Patient arrived in ED. bd 14:53 Kristie Lay, RN is Primary Nurse. ph 14:56 Manny Hodgson PA is PHCP. jr8 14:56 Greg Christine MD is Attending Physician. jr8 14:57 Triage completed. 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 15:00 Patient has correct armband on for positive identification. Bed in low position. Call ph light in reach. Side rails up X2. hand nailer on. Pulse ox on. NIBP on. Door closed. Warm blanket given. 15:24 CT Head C Spine In Process Unspecified. EDMS 15:35 Initial lab(s) drawn, by me, sent to lab. Inserted saline lock: 22 gauge in right ph antecubital area, using aseptic technique. Blood collected. 15:44 XRAY Chest (1 view) In Process Unspecified. EDMS 17:30 Chip Palomares MD is Hospitalizing Provider. jr8 18:32 No provider procedures requiring assistance completed. Patient admitted, IV remains in ph place. 19:47 out of town, doctor is Private Physician. sg Administered Medications: 16:36 Drug: foLIC Acid 1 mg Route: IVPB; Site: right antecubital; ph 17:00 Follow up: Response: No adverse reaction; IV Status: Completed infusion ph 17:50 Drug: Magnesium Sulfate 2 grams Route: IVPB; Infused Over: 2 hrs; Site: right ph antecubital; Outcome: 17:31 Decision to Hospitalize by Provider. jr8 19:59 Admitted to Med/surg accompanied by tech, family with patient, room 232, with chart, sg Report called to Clarissa BORDEN 19:59 Condition: stable 19:59 Instructed on the need for admit, safety practices. 20:08 Patient left the ED. NIH Stroke Scale - NIH Stroke Score Date: 07/06/2020 Time: 15:40 Total Score = 1 1a. Level of Consciousness (LOC) - 0(Alert) 1b. Level of Consciousness (LOC) (Year \T\ Age) - 0(Both) 1c. LOC Commands (Open \T\ Closes Eyes/Tie Man) - 0(Both) 2. Best Gaze (Lateral Gaze Paresis) - 0(Normal) 3. Visual Field Loss - 0(No visual loss) 4. Facial Palsy - 0(Normal) 5a. Left Arm: Motor (10-second hold) - 0(No drift) 5b. Right Arm: Motor (10-second hold) - 0(No drift) 6a. Left Leg: Motor (5-second hold - always test supine) - 0(No drift) 6b. Right Leg: Motor (5-second hold - always test supine) - 0(No drift) 7. Limb Ataxia (finger/nose \T\ heel/cobos - test with eyes open) - 1(Present in one limb) 8. Sensory Loss (pinprick arms/legs/face) - 0(Normal) 9. Best Language: Aphasia (description/naming/reading) - 0(No aphasia) 10. Dysarthria (speech clarity - read or repeat words) - 0(Normal) 11. Extinction and Inattention (visual/tactile/auditory/spatial/personal) - 0(No abnormality) Initials: mitchell Signatures: Dispatcher [employer] Catina Stovall Stephanie RN Santi Zhang RN Manny Pimentel PA PA jr8 Hall, Patricia RN RN ph
--- NOTE | 2020-07-06 17:32 | EDPHYS ---
Physician Documentation [facility] Name: Abisai Salinas Age: 79 yrs Sex: Male : 1940 Arrival Date: 07/06/2020 Time: 14:52 Bed 4 Private MD: out of town, doctor ED Physician Greg Christine HPI: 07/06 15:40 This 79 yrs old Male presents to ER via EMS with complaints of confusion, jr8 weakness. 15:40 Onset: The symptoms/episode began/occurred at an unknown time. became aware of symptoms jr8 upon awakening this AM. Duration: The episode is continuous. Context: the episode(s) was witnessed, by family, occurred at home. The symptoms are alleviated by nothing. The symptoms are aggravated by nothing. Associated signs and symptoms: The patient has no apparent associated signs or symptoms. Severity of symptoms: At their worst the symptoms were moderate in the emergency department the symptoms have improved. Patient's baseline: Neuro: alert and fully oriented, Motor: no deficits, Ambulation: walks without assistance, Speech: normal. The patient has experienced a previous episode. The patient has not recently seen a physician. Patient with history of TIA in past. Was started on Eliquis at another facility and has been compliant with it. of patient stated that he was having confusion and trouble moving left side today. Went to bed normal. EMS stated that he was still having problems upon there arrival. Upon arrival to ED most of the symptoms had resolved. Historical: - Allergies: 14:59 No Known Allergies; ph - PMHx: 14:59 Diabetes - NIDDM; GERD; Hyperlipidemia; Hypertension; LACK OF COORDINATION; retention ph of urine; - PSHx: 14:59 CABG; ph - Immunization history:: Flu vaccine is up to date. - Social history:: Smoking status: Patient denies any tobacco usage or history of. ROS: 15:40 Eyes: Negative for injury, pain, redness, and discharge, ENT: Negative for injury, jr8 pain, and discharge, Neck: Negative for injury, pain, and swelling, Cardiovascular: Negative for chest pain, palpitations, and edema, Respiratory: Negative for shortness of breath, cough, wheezing, and pleuritic chest pain, Abdomen/GI: Negative for abdominal pain, nausea, vomiting, diarrhea, and constipation, Back: Negative for injury and pain, MS/Extremity: Negative for injury and deformity, Skin: Negative for injury, rash, and discoloration. 15:40 Neuro: Positive for altered mental status, weakness. Exam: 15:40 Eyes: Pupils equal round and reactive to light, extra-ocular motions intact. Lids and jr8 lashes normal. Conjunctiva and sclera are non-icteric and not injected. Cornea within normal limits. Periorbital areas with no swelling, redness, or edema. ENT: Nares patent. No nasal discharge, no septal abnormalities noted. Tympanic membranes are normal and external auditory canals are clear. Oropharynx with no redness, swelling, or masses, exudates, or evidence of obstruction, uvula midline. Mucous membranes moist. Neck: Trachea midline, no thyromegaly or masses palpated, and no cervical lymphadenopathy. Supple, full range of motion without nuchal rigidity, or vertebral point tenderness. No Meningismus. Cardiovascular: Regular rate and rhythm with a normal S1 and S2. No gallops, murmurs, or rubs. Normal PMI, no JVD. No pulse deficits. Respiratory: Lungs have equal breath sounds bilaterally, clear to auscultation and percussion. No rales, rhonchi or wheezes noted. No increased work of breathing, no retractions or nasal flaring. Abdomen/GI: Soft, non-tender, with normal bowel sounds. No distension or tympany. No guarding or rebound. No evidence of tenderness throughout. Back: No spinal tenderness. No costovertebral tenderness. Full range of motion. Skin: Warm, dry with normal turgor. Normal color with no rashes, no lesions, and no evidence of cellulitis. MS/ Extremity: Pulses equal, no cyanosis. Neurovascular intact. Full, normal range of motion. 15:40 Neuro: Orientation: to person, place \T\ time. Mentation: is normal, Memory: is normal, Cranial nerves: CN I not tested, CN II- XII are normal as tested, visual metz are intact. extraocular movements are intact, Facial palsy and sensory deficits are absent. Speech is clear and appropriate. Tongue strength is normal, Cerebellar function: dysmetria is noted on the left, Motor: moves all fours, strength is 5/5 in all extremities, Sensation: no obvious gross deficits, Gait: not tested. seizure activity, is not displayed by the patient, Abnormal movements: there are no abnormal movements. 17:31 Radiologist reports: subacute CVA without change jr8 Vital Signs: 14:53 BP 155 / 78; Pulse 72; Resp 18; Temp 98.0(O); Pulse Ox 99% on R/A; Weight 89.36 kg; ph Height 6 ft. 0 in. (182.88 cm); Pain 0/10; 15:49 BP 156 / 98; Pulse 66; Resp 16; Pulse Ox 96% on R/A; ph 16:23 BP 139 / 100; Pulse 81; Resp 12; Pulse Ox 100% on 2 lpm NC; ph 17:30 BP 166 / 94; Pulse 83; Resp 24; Pulse Ox 96% ; sv 18:32 BP 148 / 64; Pulse 74; Resp 18; Pulse Ox 97% on R/A; ph 19:58 BP 120 / 71; Pulse 65; Resp 18; Temp 98.0; Pulse Ox 98% on R/A; sg 14:53 Body Mass Index 26.72 (89.36 kg, 182.88 cm) ph NIH Stroke Scale Scores: 15:40 NIHSS Score: 1 jr8 [place] Coma Score: 15:40 Eye Response: spontaneous(4). Verbal Response: oriented(5). Motor Response: obeys jr8 commands(6). Total: 15. 19:58 Eye Response: spontaneous(4). Verbal Response: oriented(5). Motor Response: obeys sg commands(6). Total: 15. MDM: 14:56 Patient medically screened. jr8 15:44 ED course: Patient had rapid improvement of symptoms upon arrival to ED. Patient on jr8 blood thinners and unknown onset time. Contraindicated for tPa at this time . 17:29 Data reviewed: vital signs, nurses notes, lab test result(s), EKG, radiologic studies, jr8 CT scan, plain films. Data interpreted: Pulse oximetry: on room air is 100 %. Interpretation: normal. Counseling: I had a detailed discussion with the patient and/or guardian regarding: the historical points, exam findings, and any diagnostic results supporting the discharge/admit diagnosis, lab results, radiology results, the need for further work-up and treatment in the hospital. ED course: Dr. Rodríguez consulted. Will see patient and wants another MRI completed . 07/06 14:57 Order name: Basic Metabolic Panel; Complete Time: 17:22 07/06 14:57 Order name: CBC with Diff; Complete Time: 16:07 07/06 14:57 Order name: LFT's; Complete Time: 17:22 07/06 14:57 Order name: Magnesium; Complete Time: 17:22 07/06 14:57 Order name: NT PRO-BNP; Complete Time: 17:22 07/06 14:57 Order name: PT-INR; Complete Time: 16:14 07/06 14:57 Order name: Troponin (emerg Dept Use Only); Complete Time: 17:22 07/06 14:57 Order name: XRAY Chest (1 view); Complete Time: 16:50 07/06 14:57 Order name: EKG; Complete Time: 14:58 07/06 14:57 Order name: CT Head C Spine; Complete Time: 16:07 07/06 14:57 Order name: Phosphorus; Complete Time: 17:22 07/06 19:08 Order name: Urine Dipstick--Ancillary (enter results) 07/06 14:57 Order name: Cardiac monitoring; Complete Time: 15:12 07/06 14:57 Order name: EKG - Nurse/Tech; Complete Time: 15:12 07/06 14:57 Order name: IV Saline Lock; Complete Time: 15:38 07/06 14:57 Order name: Labs collected and sent; Complete Time: 15:38 07/06 14:57 Order name: O2 Per Protocol; Complete Time: 15:12 07/06 14:57 Order name: O2 Sat Monitoring; Complete Time: 15:12 Administered Medications: 16:36 Drug: foLIC Acid 1 mg Route: IVPB; Site: right antecubital; ph 17:00 Follow up: Response: No adverse reaction; IV Status: Completed infusion ph 17:50 Drug: Magnesium Sulfate 2 grams Route: IVPB; Infused Over: 2 hrs; Site: right ph antecubital; Disposition: 18:13 Co-signature as Attending Physician, Greg Christine MD. ma2 Disposition: 07/06/20 17:31 Hospitalization ordered by Chip Palomares for Inpatient Admission. Preliminary diagnosis are Cerebral infarction, Hypomagnesemia. - Bed requested for Telemetry/MedSurg (Inpatient). - Status is Inpatient Admission. sg - Condition is Stable. - Problem is new. - Symptoms have improved. NIH Stroke Scale - NIH Stroke Score Date: 07/06/2020 Time: 15:40 Total Score = 1 1a. Level of Consciousness (LOC) - 0(Alert) 1b. Level of Consciousness (LOC) (Year \T\ Age) - 0(Both) 1c. LOC Commands (Open \T\ Closes Eyes/Dehydrator Operator) - 0(Both) 2. Best Gaze (Lateral Gaze Paresis) - 0(Normal) 3. Visual Field Loss - 0(No visual loss) 4. Facial Palsy - 0(Normal) 5a. Left Arm: Motor (10-second hold) - 0(No drift) 5b. Right Arm: Motor (10-second hold) - 0(No drift) 6a. Left Leg: Motor (5-second hold - always test supine) - 0(No drift) 6b. Right Leg: Motor (5-second hold - always test supine) - 0(No drift) 7. Limb Ataxia (finger/nose \T\ heel/cobos - test with eyes open) - 1(Present in one limb) 8. Sensory Loss (pinprick arms/legs/face) - 0(Normal) 9. Best Language: Aphasia (description/naming/reading) - 0(No aphasia) 10. Dysarthria (speech clarity - read or repeat words) - 0(Normal) 11. Extinction and Inattention (visual/tactile/auditory/spatial/personal) - 0(No abnormality) Initials: mitchell Signatures: Dispatcher [employer] EDMS Santi Beckford RN RN Manny Hodgson PA PA jr8 Keila Knight RN RN tl1 Kristie Lay RN RN Greg Christine MD MD ma2 Corrections: (The following items were deleted from the chart) 19:36 17:31 Hospitalization Ordered by Chip Palomares MD for Inpatient Admission. tl1 Preliminary diagnosis is Cerebral infarction; Hypomagnesemia. Bed requested for Telemetry/MedSurg (Inpatient). Status is Inpatient Admission. Condition is Stable. Problem is new. Symptoms have improved. mitchell 20:08 19:36 07/06/2020 17:31 Hospitalization Ordered by Chip Palomares MD for sg Inpatient Admission. Preliminary diagnosis is Cerebral infarction; Hypomagnesemia. Bed requested for Telemetry/MedSurg (Inpatient). Status is Inpatient Admission. Condition is Stable. Problem is new. Symptoms have improved. tl1
[2020-07-06] MEDS ORDERED: Magnesium Sulfate 2gm IVPB 2 G/50 ML BAG IV ONE (17:53)
--- NOTE | 2020-07-06 18:39 | P.HP ---
Certification for Inpatient Patient admitted to: Observation With expected LOS: <2 Midnights Patient will require the following post-hospital care: None Practitioner: I am a practitioner with admitting privileges, knowledge of patient current condition, hospital course, and medical plan of care. Services: Services provided to patient in accordance with Admission requirements found in Title 42 Section 412.3 of the Code of Federal Regulations <Jamarcus Stoner - Last Filed: 07/06/20 18:36> Patient History Date of Service: 07/06/20 Reason for admission: TIA History of Present Illness: 79-year-old male with history of with diabetes mellitus type 2, atrial fibrillation on chronic anticoagulation therapy, hyperlipidemia, dementia presents emergency department for left-sided weakness and confusion. Patient reports that he went to bed last night around 2100 and woke up around 7:00 a.m. noticing that he had some left arm numbness, went back to sleep and woke up again around noon today. Family noticed that when the patient woke up. He is having difficulty walking with his walker with unsteady gait and that his left arm was falling off of the walker while he is walking as well as dropping a plate of his left hand. Patient was recently admitted at the end of May for UTI, hypomagnesemia, altered mental status. Patient had echocardiogram at that time that showed normal ejection fraction. Patient had outpatient MRI early this month on June 10 which showed acute micro infarcts in the right occipital and right parietal lobes. Upon presentation to the emergency department patient's symptoms had greatly improved/completely resolved. Patient's workup in the emergency department significant for hypomagnesemia with magnesium 1.[address] scan showing small subacute right cerebral infarction without significant change from prior MRI. Case was discussed with neurology by ED provider who recommends admission overnight with repeat MRI in the morning. Patient has been compliant with his Eliquis. When I saw the patient in the emergency department he was awake, alert, oriented x3. Environmental Sampler equal and strong bilaterally, no arm or leg drift. Cerebellar exam normal. Patient reported some mild decrease in sensation to the left leg but reports both sensation to bilateral arms and sides of face equal. Patient will be admitted for further evaluation and management. - Past Medical/Surgical History Diabetic: Yes -: Diabetes mellitus type 2 -: Hypertension -: BPH -: Athersclerosis -: Melanoma -: Hyperlipidemia -: Atrial fibrillation on chronic anticoagulation therapy -: Prostate Surgery -: Hernia Repair -: Open Heart Sx -: Carotid Artery Stent -: 7x stents -: 2x melanoma removal on head Psychosocial/ Personal History: Patient lives at home with his and granddaughter - Family History Family History: Reviewed- Non-Contributory - Social History Alcohol use: No CD- Drugs: No Caffeine use: No Place of Residence: Home <Jamarcus Stoner - Last Filed: 07/06/20 18:36> Date of Service: 07/11/20 <Chip Palomares - Last Filed: 07/11/20 18:57> Allergies No Known Allergies Allergy (Verified 04/16/18 11:53) Home Medications: Atorvastatin Calcium [Lipitor*] 40 mg PO BEDTIME 05/26/20 Lisinopril [Zestril] 40 mg PO DAILY 05/26/20 Metformin HCl 1,000 mg PO BID 05/26/20 Metoprolol Succinate [Toprol Xl] 100 mg PO DAILY 05/26/20 Apixaban [Eliquis] 5 mg PO BID 07/07/20 Brimonidine Tartrate/Timolol [Combigan 0.2%-0.5% Eye Drops] 1 gtt EACH EYE BID 07/07/20 Insulin Glargine Human [Lantus*] 5 unit SQ BIDP PRN 07/07/20 Memantine HCl [Namenda*] 10 mg PO BID 07/07/20 Sitagliptin Phosphate [Januvia] 50 mg PO DAILY 07/07/20 Travoprost [Travatan Z*] 1 gtt EACH EYE BEDTIME 07/07/20 glipiZIDE [Glipizide] 5 mg PO BID 07/07/20 Review of Systems 10-point ROS is otherwise unremarkable Neurological: As per HPI <Jamarcus Stoner - Last Filed: 07/06/20 18:36> Physical Examination - Physical Exam General: Alert, In no apparent distress, Oriented x3 HEENT: Atraumatic, Normocephalic, PERRLA Neck: Supple Respiratory: Clear to auscultation bilaterally, Normal air movement Cardiovascular: No edema, Normal S1 S2 Capillary refill: <2 Seconds Gastrointestinal: Normal bowel sounds, Soft and benign Musculoskeletal: No contractures, No erythema, No tenderness Integumentary: No significant lesion, No tenderness/swelling, No erythema Neurological: Normal speech, Normal strength at 5/5 x4 extr, Normal tone, Sensation intact (Patient reports mild decrease in sensation to left lower extremity), Cranial nerves 3-12 intact, Normal affect - Studies Laboratory Data (last 24 hrs) 07/06/20 15:35: PT 19.3 H, INR 1.65 07/06/20 15:35: WBC 8.2, Hgb 13.1 L, Hct 39.1 L, Plt Count 220 07/06/20 15:35: Sodium 141, Potassium 4.0, BUN 16, Creatinine 1.10, Glucose 175 H, Phosphorus 2.7, Magnesium 1.1 L* D, Total Bilirubin 1.6 H, AST 14 L, ALT 16, Alkaline Phosphatase 90 <Jamarcus Stoner - Last Filed: 07/06/20 18:36> Assessment and Plan - Plan Assessment TIA Atrial fibrillation on chronic anticoagulation therapy Diabetes mellitus type 2 Hypertension Hyperlipidemia Dementia Plan TIA: Neurology consult in place, MRI stroke protocol ordered for morning. Continue home medications including Eliquis, add folic acid. Speech and physical therapy consult in place. Will check lipid panel with morning labs. DVT prophylaxis with Eliquis. Atrial fibrillation on chronic anticoagulation therapy: Continue Eliquis, patient had a recent echocardiogram showing normal EF. Diabetes mellitus type 2: A.c. HS Accu-Cheks, sliding scale insulin therapy. Hypertension: Home medications continued Hyperlipidemia: Home medications continued Dementia: Home medications continued Discharge Plan: Home Plan to discharge in: 24 Hours - Advance Directives Does patient have a Living Will: No Does patient have a Durable POA for Healthcare: No - Code Status/Comfort Care Code Status Assessed: Yes (Full code) Critical Care: No Time Spent Managing Pts Care (In Minutes): 55 <Jamarcus Stoner - Last Filed: 07/06/20 18:36> - Plan Plan of care discussed with Jamarcus Stoner, and I agree with the management plan as noted above. <Chip Palomares - Last Filed: 07/11/20 18:57>
[2020-07-06] MEDS ORDERED: ONDANSETRON 4 MG/2 ML VIAL IV PRN (20:25)
[2020-07-06 20:31] LABS: Urine Blood NEGATIVE (NEG); Urine Glucose 1+ (NEG); Urine Protein TRACE (NEG)
[2020-07-06 20:34] VITALS: BMI 27.3
[2020-07-06] MEDS: INSULIN -REGULAR HUMAN 50 UNIT/0.5 ML ML SQ SCH (21:00)
[2020-07-06] MEDS: MEMANTINE HCL 10 MG TABLET PO SCH (22:03)
[2020-07-06] MEDS: ATORVASTATIN 40 MG TAB PO SCH (22:03)
[2020-07-06] MEDS: APIXABAN 5 MG TABLET PO SCH (22:03)
[2020-07-07 02:33] LABS: Urine Appearance CLEAR; Urine Bilirubin NEGATIVE (NEG); Urine Blood NEGATIVE (NEG); Urine Color YELLOW; Urine Glucose TRACE (NEG); Urine Protein NEGATIVE (NEG)
[2020-07-07 02:37] LABS: Urine Microscopic Reflex ORDER UMIC
[2020-07-07 03:00] LABS: Urine Bacteria <20 /HPF (NONE SEEN); Urine Culture Reflex Order REFLEXED; Urine RBC <5 /HPF (NONE SEEN); Urine Urothelial Cells <5 /HPF (NONE SEEN)
[2020-07-07 06:21] LABS: Absolute Lymphocytes (CBC) 2.1 K/uL (0.7-4.9); Basophils % 0.4 % (0-1.3); Hematocrit 37.2 % (39.6-49.0); Lymphocytes % 23.7 % (15.3-44.8); MPV 9.4 fL (7.6-11.3); RBC Red Blood Cell Count 3.99 M/uL (4.33-5.43)
[2020-07-07] MEDS: INSULIN -REGULAR HUMAN 50 UNIT/0.5 ML ML SQ SCH ×4 (07:30→21:06)
[2020-07-07 07:48] LABS: Magnesium 1.6 mg/dL (1.8-2.4); Potassium 3.6 mmol/L (3.5-5.1); Thyroid Stimulating Hormone 1.73 uIU/mL (0.360-3.740)
[2020-07-07] MEDS: lisinopriL 20 MG TAB PO SCH (08:27)
[2020-07-07] MEDS: FOLIC ACID 1 MG TABLET PO SCH (08:28)
[2020-07-07] MEDS: APIXABAN 5 MG TABLET PO SCH ×2 (08:28→21:05)
[2020-07-07] MEDS: MEMANTINE HCL 10 MG TABLET PO SCH ×2 (08:28→21:06)
[2020-07-07] MEDS: METOPROLOL TAR 50 MG TAB PO SCH (08:29)
[2020-07-07] MEDS ORDERED: POTASSIUM CL SA 10 MEQ TAB PO ONE (09:00)
[2020-07-07] MEDS ORDERED: MAGNESIUM SULFATE 1 gm IVPB 1 GM/100 ML BAG IV ONE ×2 (09:00→16:00)
[2020-07-07] MEDS: ACETAMINOPHEN 500 MG TAB PO PRN (13:52)
--- NOTE | 2020-07-07 14:52 | RAD REPORT ---
EXAM DESCRIPTION: MRI - Brain W/Wo Cont - 07/07/2020 2:31 pm CLINICAL HISTORY: left sided weakness, CVA COMPARISON: MRA Head Wo Cont dated 07/07/2020; MRA Neck W/Wo Cont dated 07/07/2020; Brain W/Wo Cont dated 06/10/2020; Head C Spine Mpr Wo Con dated 07/06/2020 TECHNIQUE: Sagittal and axial T1-weighted images were obtained. Axial PD/heavily T2-weighted and T2- FLAIR images were obtained along with axial DWI/ADC mapping sequences. Coronal heavily T2 weighted s equence obtained. Axial and coronal post-contrast T1-weighted images were also obtained. A 19 ml Mul tihance contrast following utilized. FINDINGS: Diffusion-weighted imaging shows a new punctate focus of hyperintense signal in the burroughs m atter of a posterior right frontal gyrus near the midline. This has corresponding diminished signal o n ADC mapping. The site of prior CVA show serpiginous gyriform hyperintense diffusion signal with cor responding diminished signal on ADC mapping. There is hyperintense T2/IR signal. The patient had infa rction in this region on the June 10 MRI study. The acute/subacute DWI/ADC Stroke signal pattern should have resolved by a 2 weeks. Therefore, this signal abnormality is believed to be new infarctio n at this site. No cortical edema or sulcal effacement. There is no intracranial hemorrhage. No other site of new infarction. Patient has significant atrophy is again noted. The advanced chronic ischemi c pattern also seen as stable. Ventricles are in proportion to volume loss. Signal voids are seen as a normal finding in the major intracranial vessels. Trace amount of cortical enhancement is seen at the recurrent infarction site. No other brain parench ymal enhancement. No dural thickening or enhancement. IMPRESSION: New punctate infarction in the posterior right frontal lobe gyrus. New signal abnormalities in the area of prior infarction are believed to be new infarction rather ilya n remnant signal abnormality. No intracranial hemorrhage and no mass effect or edema. Advanced atrophy and chronic ischemic change again noted.
--- NOTE | 2020-07-07 14:54 | RAD REPORT ---
EXAM DESCRIPTION: MRI - MRA Head Wo Cont - 07/07/2020 2:31 pm CLINICAL HISTORY: Left-sided weakness, recent CVA COMPARISON: CT head July 06, MRI July 07, MRI June 10 TECHNIQUE: Axial and coronal 3D [id number] image acquisition was performed. 3D rotational images were generated with source and reconstruction images reviewed. Horizontal and vertical axis rotation al views generated using MIP protocol. FINDINGS: Vertebrobasilar tortuosity noted. Left vertebral artery is the dominant vessel. No basilar stenosis. Posterior cerebral arteries show mild atherosclerotic change. Distal internal carotid arteries show atherosclerotic change in each cavernous and supraclinoid porti on. This does not cause significant luminal narrowing. The M1 and M2 branches of each internal caroti d artery show no significant atherosclerotic changes. There is greater disease on the right. Anterior communicating artery is present. Neither posterior communicating artery confirmed. No aneurysm or vascular malformation. IMPRESSION: Atherosclerotic changes are present relatively mild for age. Findings are more prominent in the right middle cerebral artery distribution.
--- NOTE | 2020-07-07 14:57 | RAD REPORT ---
EXAM DESCRIPTION: MRI - MRA Neck W/Wo Cont - 07/07/2020 2:31 pm CLINICAL HISTORY: CVA, left-sided weakness COMPARISON: MRA head same date TECHNIQUE: MR angiography of the cervical vasculature performed. Coronal imaging plane acquisition u tilized. A 19 MultiHance contrast volume was utilized. Coronal reformatted images were generated and reviewed. Vertical axis 3D rotational projections obtained using maximum intensity projection protoco l. FINDINGS: Aortic arch is 3 vessel configuration with no origins stenoses. Innominate and left common carotid artery tortuosity present. Visualized portions of each subclavian artery are unremarkable. N o origin stenosis of the vertebral arteries. Left vertebral artery is dominant. No dissection or sten osis. No common carotid or internal carotid stenosis or significant atherosclerotic change. No dissection. No aneurysm or vascular malformation. IMPRESSION: The carotid and vertebral cervical vasculature show no significant findings.
[2020-07-07] MEDS ORDERED: ASPIRIN EC 81 MG TAB PO ONE (17:00)
--- NOTE | 2020-07-07 17:32 | P.PN ---
Subjective Date of Service: 07/07/20 Chief Complaint: TIA Subjective: Improving (feeling strength is improved, but still with some numbness of L hand and mild weakness of L hand as well) Review of Systems 10-point ROS is otherwise unremarkable Physical Examination - Vital Signs Temperature: 97.0 F Blood Pressure: 141/68 Pulse: 61 Respirations: 18 Pulse Ox (%): 97 - Physical Exam General: Alert, In no apparent distress HEENT: PERRLA, EOMI, Sclerae nonicteric Respiratory: Clear to auscultation bilaterally, Normal air movement Cardiovascular: No edema, Regular rate/rhythm Gastrointestinal: Soft and benign, Non-distended, No tenderness Integumentary: No rashes Neurological: Other (5/5 strength of RUE/RLE, 4+/5 of LLE, 4 to 4+/5 of LUE), Abnormal sensation (diminished from L wrist to fingers) - Studies Laboratory Data (last 24 hrs) 07/07/20 14:31: Magnesium 1.8 07/07/20 05:54: Sodium 143, Potassium 3.6, BUN 13, Creatinine 0.93, Glucose 126 H, Magnesium 1.6 L D, Triglycerides 100, Cholesterol 112, HDL Cholesterol 32 L, Cholesterol/HDL Ratio 3.50 07/07/20 05:54: WBC 8.8, Hgb 13.0 L, Hct 37.2 L, Plt Count 208 Microbiology Data (last 24 hrs): 07/06/20 20:50 Nasopharnyx Coronavirus COVID-19 PCR - Final Assessment & Plan Physician Review Additional Text: TIA vs CVA Atrial fibrillation on chronic anticoagulation therapy Diabetes mellitus type 2 Hypertension Hyperlipidemia Dementia Plan TIA vs CVA: pending MRI stroke protocol new weakness/diminished sensation of L hand continue home Eliquis neurology consulted Speech and physical therapy consult in place. Atrial fibrillation on chronic anticoagulation therapy: Continue Eliquis, patient had a recent echocardiogram showing normal EF. Diabetes mellitus type 2: A.c. HS Accu-Cheks, sliding scale insulin therapy. Hypertension: Home medications continued Hyperlipidemia: Home medications continued Dementia: Home medications continued VTE: Eliquis Code: full Dispo: pending MRI, possible inpatient rehab if new stroke Time Spent Managing Pts Care (In Minutes): 35
[2020-07-07] MEDS: ATORVASTATIN 40 MG TAB PO SCH (21:05)
--- NOTE | 2020-07-07 21:44 | CON ---
Reason For Consultation: Because of another stroke. History Of Present Illness: Mr. Salinas is an 79-year-old right-handed patient who was seen earlier this month for multiple punctate strokes involving multiple vascular territories with likely source being cardiac given history of atrial fibrillation. His initial stroke involved the right ce rebral hemisphere and the patient did at that time have cervical spine evaluation showing left forami nal stenosis at C3-C4 and moderate right foraminal stenosis at C4-5. Despite the stroke, he recovere d well and was able to go home with family and was doing therapy. However, yesterday he developed mo re left-sided weakness, confusion in addition to diffuse weakness involving the right upper and lower extremity. He came back to [facility] where his head CT scan showed a subacute stroke, but the study did not reveal an acute stroke. However, subsequent brain MRI did identify more new punct ate infarcts in the right frontal gyrus and new stroke in the right cerebral hemisphere consistent wi th an additional new stroke. He was also found to have a severely low magnesium of 1.1 with possible contribution to his diffuse weakness. Otherwise, electrolytes are essentially unremarkable and his glucose ranged from 120s to 190s. His liver function study is essentially unremarkable and urinalysi s showed a trace esterase and 10-20 white blood cells. He did receive replacement of magnesium and h ydration and has had some improvement in the left-sided weakness; however, when the patient was ambul ated with physical therapy, he did have significant incoordination, poor balance, and left-sided weak ness with tendency to fall, it was recommended that he be admitted to the inpatient rehabilitation un for aggressive physical and occupational therapy. Past Medical History: As indicated with diabetes mellitus type 2, atrial fibrillation, dyslipidemia, and vascular dementia. He is on anticoagulation with Eliquis 5 mg twice daily. Melanoma, benign pr ostatic hypertrophy, and dyslipidemia. Allergies: NO KNOWN DRUG ALLERGIES. Home Medications: Lipitor 40 mg at bedtime, NovoLog FlexPen 5 units 3 times per day, Zestril 40 mg d y, memantine 10 mg daily, metformin 1000 mg twice daily, Toprol-XL 100 mg daily, Augmentin 875/125 twice daily, and Eliquis 5 mg which should be twice daily. Surgeries: Prostate surgery, hernia repair, multiple cardiac stents, carotid artery stent. Family History: Noncontributory. Social History: No alcohol, tobacco, or drug use. The patient lives at home with family. Review of Systems: Aside from mentioned above, no recent fevers or chills. No nausea, vomiting, myalgias, arthralgias, rash, weight change, or headaches. Physical Examination: Vital Signs: Blood pressure 141/68, pulse 61, respiratory rate 18, temperature 97.0, oxygen saturati on 97%. Weight 185 pounds, height 5 feet 9 inches. General: Mr. Salinas is resting in bed. He is in no acute distress. HEENT: He is normocephalic, atraumatic. His sclerae are anicteric. Oropharynx is moist and pink. Neck: Supple. Chest: Clear. Heart: Regular. EXTREMITIES: Show no significant edema, cyanosis, or clubbing. NEUROLOGIC: He is alert and oriented to person, place, situation, not the exact date. He does follo w simple commands appropriately. He does have some mild left upper and lower extremity weakness, gra ded 4 to 5. Mild incoordination in the left upper and lower extremity. Mild decrease in sensation i n the left upper and lower extremity, otherwise intact on the right side. As he ambulated with physi clifton therapy, tendency to fall with poor balance and coordination. Assessment: Mr. Salinas is an 79-year-old patient with multiple likely cardioembolic strokes while ta luis angel Eliquis, possibly just 5 mg daily. He does have severely low magnesium, which is now being repl aced. He has multiple comorbid conditions including atrial fibrillation, diabetes mellitus, hyperten zackary, and dyslipidemia. He will benefit from inpatient rehabilitation for aggressive physical, occup ational, and speech therapy to improve his balance, gait, coordination, endurance, and strength. Plan: 1.Admit to inpatient rehabilitation. 2.Continue with Eliquis 5 mg twice daily and aspirin 81 mg daily. 3.Continue with aggressive management of diabetes. Address dyslipidemia with high-dose statin. Jennifer ross some mild permissive hypertension in the next 5 days. 4.We will follow up with magnesium, blood work. 5.Encourage hydration, free water. LB/MODL Voice ID: [id number] Report ID: [id number]
[2020-07-08 06:31] LABS: Potassium 3.9 mmol/L (3.5-5.1)
[2020-07-08] MEDS: INSULIN -REGULAR HUMAN 50 UNIT/0.5 ML ML SQ SCH ×4 (07:30→21:00)
--- NOTE | 2020-07-08 08:51 | P.PN ---
Subjective Date of Service: 07/08/20 Chief Complaint: TIA Subjective: No new changes (overall feeling well, continues with left-sided weakness and decreased sensation of L hand denies new weakness/numbness, no SOB / chest pain) Physical Examination - Vital Signs Temperature: 97.5 F Blood Pressure: 121/75 Pulse: 57 Respirations: 20 Pulse Ox (%): 97 - Physical Exam General: Alert, In no apparent distress, Oriented x2 HEENT: EOMI, Sclerae nonicteric Respiratory: Clear to auscultation bilaterally, Normal air movement Cardiovascular: Irregular heart rate/rhythm (afib, rate controlled) Gastrointestinal: Soft and benign, Non-distended, No tenderness Integumentary: No rashes Neurological: Abnormal strength (4 to 4+ of LUE, 4+ to 5 of LLE, 5/5 RUE/RLE), Abnormal sensation (diminished on left hand), Dementia (mild) - Studies Laboratory Data (last 24 hrs) 07/07/20 14:31: Magnesium 1.8 Microbiology Data (last 24 hrs): 07/06/20 20:50 Nasopharnyx Coronavirus COVID-19 PCR - Final Assessment & Plan Physician Review Additional Text: new embolic CVA Hypomagnesemia Atrial fibrillation on chronic anticoagulation therapy Diabetes mellitus type 2 Hypertension Hyperlipidemia Dementia Plan new embolic CVA: MRI consistent with new CVA, new weakness/diminished sensation of L hand continue home Eliquis, added aspirin per neurology recommendation neurology consulted, PT consulted - would benefit from inpatient rehab Speech and physical therapy consult in place. Hypomagenesmia unclear etiology, was noted on prior hospitalization, but otherwise patient and deny any further history likely contributed to weakness doesn't drink alcohol, not on medications typical for hypomagnesemia will likely need low dose supplementation on discharge Atrial fibrillation on chronic anticoagulation therapy: Continue Eliquis, patient had a recent echocardiogram showing normal EF. Diabetes mellitus type 2: A.c. HS Accu-Cheks, sliding scale insulin therapy. Hypertension: Home medications continued Hyperlipidemia: Home medications continued Dementia: Home medications continued VTE: Eliquis Code: full Dispo: pt would benefit from inpatient rehab, patient and his agree, SW/CM consutled, rehab consulted Time Spent Managing Pts Care (In Minutes): 35
--- NOTE | 2020-07-08 09:23 | CON ---
Date of Consultation: 07/07/2020 Reason For Consultation: TIA, short run of ventricular tachycardia and altered mental status. History Of Present Illness: Mr. Salinas is 79, has a history of dementia, gastroesophageal reflux dis ease, CABG, atrial fibrillation, dyslipidemia, hypertension, diabetes, and COPD. Came in with a TIA. Has been doing well since. Altered mental status is at baseline. While he was in the hospital, he had a short run of arrhythmia that was thought to be ventricular tachycardia but that is really atri al fibrillation with aberrancy. There were no hemodynamic compromise. The patient had no cardiac sy mptoms. Past Medical History: As stated above. Allergies: NONE. Review of Systems: Negative. Social History: Negative. Family History: Negative. Medications: At home include Namenda, Eliquis, metformin, metoprolol, Lipitor, insulin, inhalers, li sinopril, Januvia, and glipizide. Physical Examination: General: He is in atrial fibrillation, rate controlled. Vital Signs: Otherwise stable, afebrile. No acute distress. HEENT: Negative. Neck: Supple. No bruit, lymphadenopathy, JVD, or thyromegaly. Chest: Clear to auscultation and percussion. Cardiac: Exam revealed a regular rhythm and rate. No murmurs, gallops, or rubs. Abdomen: Benign. Extremities: Revealed no clubbing, cyanosis, or edema. Diagnostic Data: Magnesium was 1.1. Chest x-ray is negative. BNP was 6044. Impression And Plan: Transient ischemic attack. MRA is pending. Echocardiogram in May revealed an ejection fraction of 55% with some wall motion abnormality and tricuspid regurgitation. No need to repeat that. We will wait for the MRI and MRA before making further decisions. His atr ial fibrillation rate is occasionally elevated and we can certainly increase his beta-guy. His o ther problems including dementia, gastroesophageal reflux disease, coronary artery disease, hypertens ion, diabetes, chronic obstructive pulmonary disease and dyslipidemia are well controlled on the righ t medication. Eliquis should be continued. No need to repeat another echocardiogram. Await MRA res ults but he can go home if he does not have any significant carotid stenosis, and I will see him in t he office as an outpatient. KARLA/SHONNA Voice ID: [id number] Report ID: [id number]
[2020-07-08] MEDS: APIXABAN 5 MG TABLET PO SCH ×2 (09:58→21:40)
[2020-07-08] MEDS: ASPIRIN EC 81 MG TAB PO SCH (09:58)
[2020-07-08] MEDS: lisinopriL 20 MG TAB PO SCH (09:59)
[2020-07-08] MEDS: MEMANTINE HCL 10 MG TABLET PO SCH ×2 (09:59→21:40)
[2020-07-08] MEDS: METOPROLOL TAR 50 MG TAB PO SCH (09:59)
[2020-07-08] MEDS: FOLIC ACID 1 MG TABLET PO SCH (09:59)
--- NOTE | 2020-07-08 14:23 | RAD REPORT ---
EXAM DESCRIPTION: RAD - Barium Swallow Modified - 07/08/2020 2:17 pm FINDINGS: Pharyngeal residue: Vallecular with all consistencies, Posterior wall was mild with solids . Decreased epiglottic inversion resulting in moderate residue in the valleculae which clears on subseq uent swallow. Mild retention and retropulsion of thin liquids in the esophagus. Barium tablet passe d to lower esophagus without incident. No aspiration Twelve fluoroscopic spot series obtained. Fluoroscopy time 1.3 minutes
[2020-07-08] MEDS: ATORVASTATIN 40 MG TAB PO SCH (21:39)
[2020-07-08] MEDS: ACETAMINOPHEN 500 MG TAB PO PRN (21:39)
[2020-07-09 06:34] LABS: Magnesium 1.9 mg/dL (1.8-2.4); Potassium 4.2 mmol/L (3.5-5.1)
[2020-07-09] MEDS: INSULIN -REGULAR HUMAN 50 UNIT/0.5 ML ML SQ SCH ×4 (07:30→20:45)
[2020-07-09] MEDS: ASPIRIN EC 81 MG TAB PO SCH (08:33)
[2020-07-09] MEDS: APIXABAN 5 MG TABLET PO SCH ×2 (08:33→20:45)
[2020-07-09] MEDS: MEMANTINE HCL 10 MG TABLET PO SCH ×2 (08:33→20:45)
[2020-07-09] MEDS: FOLIC ACID 1 MG TABLET PO SCH (08:33)
[2020-07-09] MEDS: lisinopriL 20 MG TAB PO SCH (08:33)
[2020-07-09] MEDS: METOPROLOL TAR 50 MG TAB PO SCH (08:34)
--- NOTE | 2020-07-09 08:41 | P.PN ---
Subjective Date of Service: 07/09/20 Chief Complaint: TIA Subjective: Improving (doing well, working with PT, reports hand sensation is slightly improved reports some constipation) Physical Examination - Vital Signs Temperature: 97.9 F Blood Pressure: 151/86 Pulse: 66 Respirations: 18 Pulse Ox (%): 95 - Physical Exam General: Alert, In no apparent distress, Oriented x3 HEENT: Sclerae nonicteric Respiratory: Clear to auscultation bilaterally Cardiovascular: No edema, Irregular heart rate/rhythm Gastrointestinal: Soft and benign, Non-distended, No tenderness Musculoskeletal: No tenderness Integumentary: No rashes Neurological: Abnormal strength (5/5 RUE/RLE, 4+/5 in LUE/LLE, mild decreased sensation to light touch in L hand), Dementia - Studies Microbiology Data (last 24 hrs): 07/07/20 01:45 Clean Catch Urine [place] Count - Final >100,000 CFU/ML. 07/07/20 01:45 Clean Catch Urine - Final MIXED PRECIOUS. Assessment & Plan Physician Review Additional Text: new embolic CVA Hypomagnesemia Atrial fibrillation on chronic anticoagulation therapy Diabetes mellitus type 2 Hypertension Hyperlipidemia Dementia Plan new embolic CVA: MRI consistent with new CVA, new weakness/diminished sensation of L hand continue home Eliquis, added aspirin per neurology recommendation neurology consulted, PT consulted - would benefit from inpatient rehab Speech and physical therapy consult in place. very slight improvement/regain of function Hypomagenesmia unclear etiology, was noted on prior hospitalization, but otherwise patient and deny any further history likely contributed to weakness doesn't drink alcohol, not on medications typical for hypomagnesemia started on daily MgOx on 07/09, should be continued on discharge Atrial fibrillation on chronic anticoagulation therapy: Continue Eliquis, patient had a recent echocardiogram showing normal EF. Diabetes mellitus type 2: A.c. HS Accu-Cheks, sliding scale insulin therapy. Hypertension: Home medications continued Hyperlipidemia: Home medications continued Dementia: Home medications continued VTE: Eliquis Code: full Dispo: pt would benefit from inpatient rehab, patient and his agree, SW/CM consutled, rehab consulted Time Spent Managing Pts Care (In Minutes): 35
[2020-07-09] MEDS ORDERED: POLYETHYL GLY 3350 17 GM/DOSE PO ONE (08:42)
[2020-07-09] MEDS: MAGNESIUM OXIDE 400 MG TAB PO SCH (11:37)
[2020-07-09] MEDS: ATORVASTATIN 40 MG TAB PO SCH (20:45)
[2020-07-10] MEDS: HYDRALAZINE HCL 20 MG/ML VIAL IV PRN ×2 (01:07→21:16)
[2020-07-10] MEDS: INSULIN -REGULAR HUMAN 50 UNIT/0.5 ML ML SQ SCH ×4 (07:30→21:14)
[2020-07-10] MEDS: lisinopriL 20 MG TAB PO SCH ×2 (09:00→13:20)
[2020-07-10] MEDS: ASPIRIN EC 81 MG TAB PO SCH (09:40)
[2020-07-10] MEDS: MAGNESIUM OXIDE 400 MG TAB PO SCH (09:41)
[2020-07-10] MEDS: FOLIC ACID 1 MG TABLET PO SCH (09:41)
[2020-07-10] MEDS: APIXABAN 5 MG TABLET PO SCH ×2 (09:41→21:14)
[2020-07-10] MEDS: MEMANTINE HCL 10 MG TABLET PO SCH ×2 (09:42→21:14)
[2020-07-10] MEDS: METOPROLOL TAR 50 MG TAB PO SCH (09:42)
--- NOTE | 2020-07-10 09:44 | P.PN ---
Subjective Date of Service: 07/10/20 Chief Complaint: TIA Subjective: No new changes (doing well, no acute events overnight tolerating diet, no SOB, working with PT) Physical Examination - Vital Signs Temperature: 96.9 F Blood Pressure: 101/59 Pulse: 69 Respirations: 17 Pulse Ox (%): 98 - Physical Exam General: Alert, In no apparent distress, Oriented x2 HEENT: Sclerae nonicteric Respiratory: Clear to auscultation bilaterally, Normal air movement Cardiovascular: No edema, Irregular heart rate/rhythm Gastrointestinal: Soft and benign, Non-distended, No tenderness Musculoskeletal: No tenderness Integumentary: No rashes Neurological: Normal speech, Normal affect, Abnormal strength (4+/5 in RUE and RLE, 5/5 LUE/LLE, continues with 4-4+/5 L lifter driver strength, and diminished sensation), Dementia (mild) - Studies Microbiology Data (last 24 hrs): 07/07/20 01:45 Clean Catch Urine [place] Count - Final >100,000 CFU/ML. 07/07/20 01:45 Clean Catch Urine - Final MIXED PRECIOUS. Assessment & Plan Physician Review Additional Text: new embolic CVA Hypomagnesemia Atrial fibrillation on chronic anticoagulation therapy Diabetes mellitus type 2 Hypertension Hyperlipidemia Dementia Plan new embolic CVA: MRI consistent with new CVA, new weakness/diminished sensation of L hand continue home Eliquis, & aspirin per neurology recommendation neurology consulted, PT consulted - would benefit from inpatient rehab Speech and physical therapy consult in place. has had slight improvement/regain of function Hypomagenesmia unclear etiology, was noted on prior hospitalization, but otherwise patient and deny any further history likely contributed to weakness; doesn't drink alcohol, not on medications typical for hypomagnesemia started on daily MgOx on 07/09, should be continued on discharge Atrial fibrillation on chronic anticoagulation therapy: Continue Eliquis, recent echocardiogram showing normal EF. Diabetes mellitus type 2: A.c. HS Accu-Cheks, sliding scale insulin therapy. Hypertension: Home medications continued Hyperlipidemia: Home medications continued Dementia: Home medications continued VTE: Eliquis Code: full Dispo: pt would benefit from inpatient rehab, patient and his agree, SW/CM consutled, rehab consulted awaiting insurance approval Time Spent Managing Pts Care (In Minutes): 30
[2020-07-10] MEDS: ATORVASTATIN 40 MG TAB PO SCH (21:15)
[2020-07-11 05:39] LABS: Magnesium 1.8 mg/dL (1.8-2.4); Potassium 4.2 mmol/L (3.5-5.1)
[2020-07-11] MEDS: INSULIN -REGULAR HUMAN 50 UNIT/0.5 ML ML SQ SCH ×4 (07:30→21:00)
[2020-07-11] MEDS: ASPIRIN EC 81 MG TAB PO SCH (08:03)
[2020-07-11] MEDS: FOLIC ACID 1 MG TABLET PO SCH (08:03)
[2020-07-11] MEDS: MAGNESIUM OXIDE 400 MG TAB PO SCH (08:03)
[2020-07-11] MEDS: MEMANTINE HCL 10 MG TABLET PO SCH ×2 (08:04→21:31)
[2020-07-11] MEDS: METOPROLOL TAR 50 MG TAB PO SCH (08:04)
[2020-07-11] MEDS: lisinopriL 20 MG TAB PO SCH (08:04)
[2020-07-11] MEDS: APIXABAN 5 MG TABLET PO SCH ×2 (08:04→21:31)
[2020-07-11] MEDS ORDERED: MAGNESIUM SULFATE 1 gm IVPB 1 GM/100 ML BAG IV ONE ×2 (09:00)
--- NOTE | 2020-07-11 17:05 | P.PN ---
Subjective Date of Service: 07/11/20 Chief Complaint: TIA Subjective: No new changes (Without complaints today, feeling well, still with some weakness of his left hand and decreased sensation Still with some unsteady gait) Review of Systems 10-point ROS is otherwise unremarkable Physical Examination - Vital Signs Temperature: 97.8 F Blood Pressure: 102/61 Pulse: 67 Respirations: 18 Pulse Ox (%): 98 - Physical Exam General: Alert, In no apparent distress, Oriented x3 HEENT: Sclerae nonicteric Neck: Supple Respiratory: Clear to auscultation bilaterally, Normal air movement Cardiovascular: No edema, Irregular heart rate/rhythm Gastrointestinal: Soft and benign, Non-distended, No tenderness Integumentary: No rashes Neurological: Normal affect, Abnormal speech (Mild slurring of speech), Abnormal strength (Mild decreased lead simulation modeling 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 has had slight improvement/regain of function, continues with decreased left lead simulation modeling engineer strength, decreased left hand sensation, slight slurring of speech, unsteady gait Hypomagenesmia unclear etiology, was noted on prior hospitalization, but otherwise patient and deny any further history likely contributed to weakness; doesn't drink alcohol, not on medications typical for hypomagnesemia started on daily MgOx on 07/09, should be continued on discharge Atrial fibrillation on chronic anticoagulation therapy: Continue Eliquis, recent echocardiogram showing normal EF. Diabetes mellitus type 2: A.c. HS Accu-Cheks, sliding scale insulin therapy. Hypertension: Home medications continued Hyperlipidemia: Home medications continued Dementia: Home medications continued VTE: Eliquis Code: full Dispo: pt would benefit from inpatient rehab, patient and his agree, SW/CM consutled, rehab consulted awaiting insurance approval Time Spent Managing Pts Care (In Minutes): 30
[2020-07-11] MEDS: ATORVASTATIN 40 MG TAB PO SCH (21:31)
[2020-07-12 05:15] LABS: Magnesium 1.8 mg/dL (1.8-2.4); Potassium 3.9 mmol/L (3.5-5.1)
[2020-07-12] MEDS: INSULIN -REGULAR HUMAN 50 UNIT/0.5 ML ML SQ SCH ×4 (07:30→20:53)
[2020-07-12] MEDS ORDERED: POTASSIUM CL SA 10 MEQ TAB PO ONE (09:00)
[2020-07-12] MEDS: MEMANTINE HCL 10 MG TABLET PO SCH ×2 (11:03→20:54)
[2020-07-12] MEDS: FOLIC ACID 1 MG TABLET PO SCH (11:03)
[2020-07-12] MEDS: ASPIRIN EC 81 MG TAB PO SCH (11:03)
[2020-07-12] MEDS: lisinopriL 20 MG TAB PO SCH (11:03)
[2020-07-12] MEDS: APIXABAN 5 MG TABLET PO SCH ×2 (11:03→20:54)
[2020-07-12] MEDS: METOPROLOL TAR 50 MG TAB PO SCH (11:04)
[2020-07-12] MEDS: MAGNESIUM OXIDE 400 MG TAB PO SCH (11:09)
--- NOTE | 2020-07-12 15:01 | P.PN ---
Subjective Date of Service: 07/12/20 Chief Complaint: TIA Patient has no complain. He is tolerating physical therapy. Physical Examination - Vital Signs Temperature: 98.1 F Blood Pressure: 112/68 Pulse: 74 Respirations: 20 Pulse Ox (%): 96 - Physical Exam General: Alert, In no apparent distress HEENT: Mucous membr. moist/pink Neck: JVD not distended Respiratory: Clear to auscultation bilaterally, Normal air movement Cardiovascular: No edema, Regular rate/rhythm, Normal S1 S2 Gastrointestinal: Normal bowel sounds, Soft and benign, No tenderness Musculoskeletal: No swelling, No erythema Integumentary: No rashes Neurological: Other (Left-sided weakness) Assessment And Plan - Current Problems (Diagnosis) (1) Acute CVA (cerebrovascular accident) Current Visit: Yes Status: Acute (2) Hyperlipidemia Current Visit: Yes Status: Acute (3) Hypomagnesemia Onset Date: 12/31/17 Current Visit: No Status: Acute (4) Atrial fibrillation Current Visit: Yes Status: Acute (5) Chronic anticoagulation Current Visit: Yes Status: Acute - Plan Clinically stable. Patient seen and evaluated by neurology. He is tolerating physical therapy. Plan for disposition to inpatient rehab. Continue Eliquis and aspirin. Continue Lipitor. Blood pressure is under control. Physician Review Additional Text: new embolic CVA Hypomagnesemia Atrial fibrillation on chronic anticoagulation therapy Diabetes mellitus type 2 Hypertension Hyperlipidemia Dementia Plan new embolic CVA: MRI consistent with new CVA, new weakness/diminished sensation of L hand continue home Eliquis, & aspirin per neurology recommendation neurology consulted, PT consulted - would benefit from inpatient rehab Speech and physical therapy consult in place. has had slight improvement/regain of function, continues with decreased left notereader strength, decreased left hand sensation, slight slurring of speech, unsteady gait Hypomagenesmia unclear etiology, was noted on prior hospitalization, but otherwise patient and deny any further history likely contributed to weakness; doesn't drink alcohol, not on medications typical for hypomagnesemia started on daily MgOx on 07/09, should be continued on discharge Atrial fibrillation on chronic anticoagulation therapy: Continue Eliquis, recent echocardiogram showing normal EF. Diabetes mellitus type 2: A.c. HS Accu-Cheks, sliding scale insulin therapy. Hypertension: Home medications continued Hyperlipidemia: Home medications continued Dementia: Home medications continued VTE: Eliquis Code: full Dispo: pt would benefit from inpatient rehab, patient and his agree, SW/CM consutled, rehab consulted awaiting insurance approval
[2020-07-12] MEDS: ATORVASTATIN 40 MG TAB PO SCH (20:54)
[2020-07-13 04:31] LABS: Magnesium 1.9 mg/dL (1.8-2.4); Potassium 3.9 mmol/L (3.5-5.1)
[2020-07-13] MEDS ORDERED: POTASSIUM 25 MEQ EFFERV TAB PO ONE (05:27)
[2020-07-13] MEDS: INSULIN -REGULAR HUMAN 50 UNIT/0.5 ML ML SQ SCH ×4 (07:30→20:13)
[2020-07-13] MEDS: ASPIRIN EC 81 MG TAB PO SCH (08:44)
[2020-07-13] MEDS: lisinopriL 20 MG TAB PO SCH (08:44)
[2020-07-13] MEDS: APIXABAN 5 MG TABLET PO SCH ×2 (08:45→20:14)
[2020-07-13] MEDS: MEMANTINE HCL 10 MG TABLET PO SCH ×2 (08:45→20:14)
[2020-07-13] MEDS: MAGNESIUM OXIDE 400 MG TAB PO SCH (08:45)
[2020-07-13] MEDS: FOLIC ACID 1 MG TABLET PO SCH (08:46)
[2020-07-13] MEDS: METOPROLOL TAR 50 MG TAB PO SCH (08:46)
--- NOTE | 2020-07-13 11:23 | P.PN ---
Subjective Date of Service: 07/13/20 Chief Complaint: TIA Patient has no complain. No major changes from yesterday. Physical Examination - Vital Signs Temperature: 97.4 F Blood Pressure: 163/77 Pulse: 55 Respirations: 18 Pulse Ox (%): 100 - Physical Exam General: Alert, In no apparent distress HEENT: Mucous membr. moist/pink Respiratory: Clear to auscultation bilaterally, Normal air movement Cardiovascular: No edema, Regular rate/rhythm, Normal S1 S2 Gastrointestinal: Normal bowel sounds, Soft and benign, No tenderness Musculoskeletal: No swelling Integumentary: No rashes Neurological: Other Assessment And Plan - Current Problems (Diagnosis) (1) Acute CVA (cerebrovascular accident) Current Visit: Yes Status: Acute (2) Hyperlipidemia Current Visit: Yes Status: Acute (3) Hypomagnesemia Onset Date: 12/31/17 Current Visit: No Status: Acute (4) Atrial fibrillation Current Visit: Yes Status: Acute (5) Chronic anticoagulation Current Visit: Yes Status: Acute - Plan Clinically stable. He is tolerating physical therapy. Plan for disposition to inpatient rehab pending insurance authorization. Continue Eliquis and aspirin. Continue Lipitor.
[2020-07-13] MEDS: ATORVASTATIN 40 MG TAB PO SCH (20:14)
[2020-07-14 05:59] LABS: Potassium 4.3 mmol/L (3.5-5.1)
[2020-07-14] MEDS: INSULIN -REGULAR HUMAN 50 UNIT/0.5 ML ML SQ SCH ×2 (07:30→12:01)
[2020-07-14] MEDS: FOLIC ACID 1 MG TABLET PO SCH (08:46)
[2020-07-14] MEDS: MEMANTINE HCL 10 MG TABLET PO SCH (08:46)
[2020-07-14] MEDS: APIXABAN 5 MG TABLET PO SCH (08:46)
[2020-07-14] MEDS: lisinopriL 20 MG TAB PO SCH (08:46)
[2020-07-14] MEDS: MAGNESIUM OXIDE 400 MG TAB PO SCH (08:46)
[2020-07-14] MEDS: ASPIRIN EC 81 MG TAB PO SCH (08:46)
[2020-07-14] MEDS: METOPROLOL TAR 50 MG TAB PO SCH (08:47)
[2020-07-14 10:14] VITALS: O2SAT 96
--- NOTE | 2020-07-14 11:52 | P.DS ---
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 He was admitted to the hospital with acute onset of left-sided weakness and confusion. MRI brain showed more new punctate infarct in the right frontal gyrus and a new stroke in the right cerebral hemisphere. 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 Neurology recommends systemic anti coagulation and high-intensity statin. His hospital stay was marked by electrolyte abnormality especially hypomagnesemia. He had some poor coordination and physical therapy recommended inpatient rehab. However, patient has been rejected on 2 separate occasions. refuses [facility] facility. A decision was made to transfer patient home with home health. Cardiology was consulted as patient was having short runs of V-tach. No additional workup was recommended. His recent echocardiogram showed an EF of 55%. Vital Signs/Physical Exam: Temp Pulse Resp BP Pulse Ox 97.3 F 71 18 134/67 96 07/14/20 08:00 07/14/20 08:47 07/14/20 08:00 07/14/20 08:47 07/14/20 08:00 General: In no apparent distress, Cooperative HEENT: Atraumatic, Normocephalic, PERRLA, EOMI Neck: Supple Respiratory: Clear to auscultation bilaterally, Normal air movement Cardiovascular: No edema, Normal pulses, Regular rate/rhythm, Normal S1 S2 Gastrointestinal: Normal bowel sounds, Soft and benign, Non-distended, No tenderness Musculoskeletal: No clubbing, No swelling, No contractures, No tenderness, No warmth, Contractures, Other (contracture of left ring finger) Neurological: Normal speech, Sensation intact, Normal affect Laboratory Data at Discharge: WBC 8.8 K/uL (4.3-10.9) 07/07/20 05:54 Hgb 13.0 g/dL (13.6-17.9) L 07/07/20 05:54 Hct 37.2 % (39.6-49.0) L 07/07/20 05:54 Plt Count 208 K/uL (152-406) 07/07/20 05:54 PT 19.3 SECONDS (9.5-12.5) H 07/06/20 15:35 INR 1.65 07/06/20 15:35 Sodium 143 mmol/L (136-145) 07/14/20 05:14 Potassium 4.3 mmol/L (3.5-5.1) 07/14/20 05:14 BUN 21 mg/dL (7-18) H 07/14/20 05:14 Creatinine 1.08 mg/dL (0.55-1.3) 07/14/20 05:14 Glucose 173 mg/dL (74-106) H 07/14/20 05:14 Phosphorus 2.7 mg/dL (2.5-4.9) 07/06/20 15:35 Magnesium 1.9 mg/dL (1.8-2.4) 07/13/20 03:45 Total Bilirubin 1.6 mg/dL (0.2-1.0) H 07/06/20 15:35 AST 14 U/L (15-37) L 07/06/20 15:35 ALT 16 U/L (12-78) 07/06/20 15:35 Alkaline Phosphatase 90 U/L (45-117) 07/06/20 15:35 Triglycerides 100 mg/dL (<150) 07/07/20 05:54 Cholesterol 112 mg/dL (<200) 07/07/20 05:54 HDL Cholesterol 32 mg/dL (40-60) L 07/07/20 05:54 Cholesterol/HDL Ratio 3.50 07/07/20 05:54 Home Medications: Lisinopril [Zestril] 40 mg PO DAILY 05/26/20 Metformin HCl 1,000 mg PO BID 05/26/20 Metoprolol Succinate [Toprol Xl] 100 mg PO DAILY 05/26/20 Apixaban [Eliquis] 5 mg PO BID 07/07/20 Brimonidine Tartrate/Timolol [Combigan 0.2%-0.5% Eye Drops] 1 gtt EACH EYE BID 07/07/20 Insulin Glargine Human [Lantus*] 5 unit SQ BIDP PRN 07/07/20 Memantine HCl [Namenda*] 10 mg PO BID 07/07/20 Sitagliptin Phosphate [Januvia] 50 mg PO DAILY 07/07/20 Travoprost [Travatan Z*] 1 gtt EACH EYE BEDTIME 07/07/20 glipiZIDE [Glipizide] 5 mg PO BID 07/07/20 Apixaban [Eliquis] 5 mg PO BID tablet 07/14/20 Atorvastatin Calcium [Lipitor] 40 mg PO BEDTIME #30 tab 07/14/20 Folic Acid 1 mg PO DAILY #30 tablet 07/14/20 Magnesium Oxide [Mag 0X*] 400 mg PO DAILY #30 tab 07/14/20 Memantine HCl [Namenda*] 10 mg PO BID tablet 07/14/20 Metoprolol Tartrate [Lopressor*] 100 mg PO DAILY tab 07/14/20 New Medications: Folic Acid 1 mg PO DAILY #30 tablet Atorvastatin Calcium [Lipitor] 40 mg PO BEDTIME #30 tab Magnesium Oxide [Mag 0X*] 400 mg PO DAILY #30 tab Followup: [facility] [Primary Care Provider] -
[2020-07-14 14:56] VITALS: BP 101/56; TEMP 97.1
== END 2020-07-14 14:57 | disposition home health service (06) | DRG 65 ==
LOC: ER 14:47 → ERHOLD 18:30 → 2ND 20:03 → OBSVTOIN 07-07 15:21
PROVIDERS: ADMIT Hospitalist; ATTEND Internal Medicine
DX: I63.9 Cerebral infarction, unspecified (principal); G81.94 Hemiplegia, unspecified affecting left nondominant side; M21.372 Foot drop, left foot; E11.9 Type 2 diabetes mellitus without complications; I10 Essential (primary) hypertension; E83.42 Hypomagnesemia; F03.90 Unspecified dementia, unspecified severity, without behavioral disturbance, psychotic disturbance, mood disturbance, and anxiety; I48.91 Unspecified atrial fibrillation; J44.9 Chronic obstructive pulmonary disease, unspecified; E78.5 Hyperlipidemia, unspecified; K21.9 Gastro-esophageal reflux disease without esophagitis; R41.0 Disorientation, unspecified; R29.701 NIHSS score 1; R40.2360 Coma scale, best motor response, obeys commands, unspecified time; R40.2140 Coma scale, eyes open, spontaneous, unspecified time; R40.2250 Coma scale, best verbal response, oriented, unspecified time; Z86.73 Personal history of transient ischemic attack (TIA), and cerebral infarction without residual deficits; Z79.01 Long term (current) use of anticoagulants; Z79.899 Other long term (current) drug therapy; Z79.4 Long term (current) use of insulin; Z20.828 Contact with and (suspected) exposure to other viral communicable diseases
CPT/HCPCS: 36415; 70450; 70544; 70549; 70553; 71045; 72125; 74230; 80048; 80061; 80076; 81003; 81015; 82947; 83036; 83735; 83880; 84100; 84439; 84443; 84484; 85025; 85610; 87086; 87088; 92610; 92611; 93005; 96365; 96375; 97110; 97112; 97116; 97161; 97530; 99285; A9577; G0378; J0360; J3475; U0002

== ENCOUNTER 2020-08-08 18:52 | Emergency (ER) | payer MEDICARE ==
--- OUTSIDE RECORDS SUMMARY | 2020-08-08 18:54 | XMS REPORT | Clinical Summary ---
:1940 Author Organization [facility] Address [address] [place] [address] Care Team Providers Name Role Phone Pcp [...] Signs Not on file Plan of Treatment Health Maintenance Due Date Last Done Comments PNEUMOCOCCAL 65+ YRS (1 of 1 - [id number]) 2004 MEDICARE ANNUAL WELLNESS (YEAR 2 or FIRST YEAR if no 07/11/2005 IPPE) INFLUENZA VACCINE (#1) 2020 Results Not on fileafter 08/08/2019 Insurance Payer Benefit Plan / Subscriber ID Effective Dates Phone Addre ss Type Group MEDICARE MEDICARE A B [id number] 2004-Presen Medicare t [facility] [id number] 2017-Present Medigap SUPPLEMENT/[facility] Advance Directives For more information, please contact: [phone] Type Date Recorded Patient Client Care Representative Explanati on Advance Directives and Living 04/30/2018 12:00 AM Will Code Status Date Activated Date Inactivated Comments Full Code 05/13/2018 7:01 PM 05/16/2018 4:03 PM This code status was determined by: Patient
--- OUTSIDE RECORDS SUMMARY | 2020-08-08 18:55 | XMS REPORT | Continuity of Care Document ---
:1940 Author Organization [facility] Information [place] Care Team Providers Name Role Phone [facility] Information Exchange Unavailable Un available Problems Problem Status Onset Classification Date Comments Sourc e Date Reported DJD LUMBAR PAIN Active 10/22/19 Ryan rial 19 [place] AMS, UTI, KIDNEY Active 01/01/20 INJURY 18 [facility] INJURY OF URETER Active 01/01/[address] [id number] Active 12/04/19 BILATERAL UMBILICAL 18 [facility] Chest pain (finding) Active 10/30/19 Problem 02/27/2020 Data Medical 13 migrated Group, from [facility] on 02/05/15. [facility] [place] Carotid Active Problem 02/27/2020 Medica l atherosclerosis Grou p, (disorder) [facility] [place] Coronary Active Problem 02/27/2020 Data Medica l arteriosclerosis migrated Josse up, (disorder) from [facility] on 02/05/15. [facility] [place] Diabetes mellitus Active Problem 02/27/2020 M H Medical (disorder) Group,[facility] [place] Hyperlipidemia Active Problem 02/27/2020 M edical (disorder) Group,[facility] [place] Hypertensive Active Problem 02/27/2020 Data Med ical disorder, systemic migrated G roup, arterial (disorder) from [facility] on 02/05/15. 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 [place] Umbilical hernia Active Problem 02/27/2020 Medical (disorder) Group,[facility] Kwasi Unspecified injury 01/05/2018 MH of ureter, initial M [facility] ALTERED MENTAL Active MH STATUS, UNSPECIFIED [facility] UNSPECIFIED INJURY Active M H OF URETER, INITIAL M [facility] AMS/ UTI/ DIRECT Active MH ADMIT [facility] Medications Medication Details Route Status Patient [...] al [Eliquis] tab, 3 Group Refill(s), Pharmacy: [facility] [id number] lisinopril 5 mg 5 mg = 1 [...] # 14 tab, 0 Group Refill(s), Pharmacy: [facility] [id number] Cricket Notes: Same as: Inactive Eliquis 2017 [facility] Acetaminophen 1 tab, PO, Q6H, Active 300 MG / Codeine PRN Pain, X 5 2018 [facility] Phosphate 30 MG day, # 20 tab, 0 [facility] Oral Tablet Refill(s) [Tylenol with Codeine #3] Hydrocortisone 5 1 appl, TOP, Active MG/ML Topical BID, PRN Rash, 0 2018 [facility] Cream Refill(s) [facility] Cephalexin 500 500 mg = 1 cap, Active H MG Oral Capsule PO, TID, X 7 2018 Mem orial [Keflex] day, # 21 cap, 0 [facility] Refill(s) Hydrocortisone 5 1 appl, Route: Inactive MG/ML Topical TOP, BID, Drug 2018 Mem orial Cream form: CRM, PRN [facility] Rash, Start date: 01/02/18 10:55:00 CDT, Duration: 30 day, Stop date: 02/01/18 10:54:00 CDT Brimonidine 1 drp, Route: Inactive tartrate 2 MG/ML BOTH EYES, Q12H, 2017 [facility] / Timolol 5 Drug form: SOLN, Cit y MG/ML Ophthalmic Start date: Solution 01/01/18 [Combigan] 21:00:00 CDT, Duration: 30 day, Stop date: 01/31/18 9:00:00 CDT timolol Notes: (Same As: No Longer ophthalmic Timoptic, Active 2017 [facility] Betimol) [facility] metoprolol Notes: (Same as: No Longer tartrate Lopressor) Active 2017 [facility] brimonidine Notes: (Same As: No Longer H ophthalmic Alphagan) Active 2017 [facility] latanoprost Notes: Keep No Longer ophthalmic refrigerated. Active 2017 Memoria l (Same City as:Xalatan) Opened bottle may be stored at room temperature for 6 weeks Magnesium Notes: WASTE: Inactive Sulfate F/P - Sink; E - 2018 [facility] Bin travoprost 0.04 1 drp, Route: Inactive H MG/ML Ophthalmic BOTH EYES, Drug 2018 [facility] Solution Form: SOLN, Cecilio [Travatan] Dosing Weight 93.295, kg, QPM, Start date: 01/01/18 17:00:00 CDT, Duration: 30 day, Stop date: 01/30/18 17:00:00 CDT Protonix Notes: Tablet No Longer should not be Active 2017 [facility] chewed or [facility] crushed. Docusate Notes: (Same as: No Longer Colace) (Do Not Active 2017 [facility] Crush) [facility] albumin human Notes: LOT#: Inactive 25% intravenous 2017 Sc morial solution Mfg: City ____ WASTE: F/P - Red; E -Red (Same as: Albuminar) "blood product derivative" NS (Bolus) IV 1,000 mL, 1,000 Inactive ml/hr, Infuse 2017 [facility] Over: 1 hr, [facility] Route: IV, 1,000, Drug form: INJ, ONCE, Priority: STAT, Dosing Weight 93.295 kg, Start date: 01/01/18 5:48:00 CDT, Stop date: 01/01/18 5:48:00 CDT Ceftriaxone Notes: (Same As: No Longer Rocephin). Use [facility] 2017 [facility] with 100 mL NS [facility] and infuse over 30 min MEDICATION WASTE Product Size: 1000 mg Product Wasted: ___ mg Insulin Lispro Notes: (Same as: No Longer Humalog ) Roll Active 2017 [facility] in palms of [facility] hands gently; Do not shake `vigorously. [...] Route: IM, No Longer Drug form: Active [address] [place] [address] PDR/INJ, PRN, [facility] Dosing Weight 93.295, kg, PRN Blood Glucose Results, Start date: 12/31/17 23:08:00 CDT, Duration: 30 day, Stop date: 01/30/18 23:07:00 CDT Saline Flush Notes: (Same as: No Longer 0.9% BD Posiflush) Active [address] [place] [address] Ondansetron Notes: (Same as: No Longer H Zofran ODT) Active 2017 [facility] Morphine Notes: (Same No Longer as:MORPhine Active 2017 [facility] Sulfate) [facility] Acetaminophen Notes: Do not No Longer exceed 4 gm/day. Active 2017 [facility] (Same as: [facility] Tylenol) Acetaminophen Notes: (Same as: No Longer 325 MG / [place]rell 325/5) Do [facility] Bitartrate 5 MG 4gm/day of Oral Tablet acetaminophen. Sodium Chloride 1,000 mL, Rate: No Longer 0.9% IV 1,000 mL 75 ml/hr, Infuse Active [address] [place] [address] over: 13.3 hr, [facility] Route: IV, Dosing Weight 93.295 kg, Total Volume: 1,000, Start date: 12/31/17 23:07:00 CDT, Duration: 30 day, Stop date: 01/30/18 23:06:00 CDT, 2.19, m2 glycopyrrolate Route: IV, Drug Inactive (ANES) form: INJ, ONCE, 2017 [facility] Stop date: [facility] 12/23/17 16:01:00 CDT neostigmine Route: IV, Drug Inactive (ANES) form: INJ, ONCE, 2017 [facility] Stop date: [facility] 12/23/17 16:01:00 CDT ondansetron Route: IV, Drug Inactive (ANES) form: INJ, ONCE, 2017 [facility] Stop date: [facility] 12/23/17 15:52:00 CDT Hydralazine 10 mg, Route: Inactive IVP, Q20Min, 2018 [facility] Dosing Weight [facility] 84.091, kg, PRN Elevated BP, Start date: 12/23/17 14:45:00 CDT, Duration: 2 doses or times, Stop date: Limited # of times Ondansetron 4 mg, Route: Inactive IVP, ONCE, 2018 [facility] Dosing Weight [facility] 84.091, kg, PRN Nausea & Vomiting, Start date: 12/23/17 14:45:00 CDT Morphine 2 mg, Route: Inactive IVP, Q5Min, 2018 [facility] Dosing Weight [facility] 84.091, kg, PRN Pain Score 4-6, Start date: 12/23/17 14:45:00 CDT, Duration: 5 doses or times, Stop date: Limited # of times Naloxone 0.4 mg, Route: Inactive IVP, Q2MIN, 2018 [facility] Dosing Weight [facility] 84.091, kg, PRN Narcotic Reversal, Start date: 12/23/17 14:45:00 CDT, Duration: 8 doses or times, Stop date: Limited # of times Flumazenil 0.2 mg, Route: Inactive IVP, PRN, Dosing 2018 Ara l Weight 84.091, City kg, PRN Benzodiazepine Reversal, Initial dose, Start date: 12/23/17 14:45:00 CDT, Duration: 30 day, Stop date: 01/22/18 14:44:00 CDT Hydromorphone 0.5 mg, Route: Inactive IVP, Q5Min, 2018 [facility] Dosing Weight [facility] 84.091, kg, PRN Pain Score 7-10, Start date: 12/23/17 14:45:00 CDT, Duration: 4 doses or times, Stop date: Limited # of times rocuronium Route: IV, Drug Inactive (ANES) form: INJ, ONCE, 2017 [facility] Stop date: [facility] 12/23/17 14:22:00 CDT fentaNYL (ANES) Route: IV, Drug Inactive form: INJ, ONCE, 2017 [facility] Stop date: [facility] 12/23/17 14:17:00 CDT lidocaine (ANES) Route: IV, Drug Inactive form: INJ, ONCE, 2017 [facility] Stop date: [facility] 12/23/17 14:17:00 CDT propofol (ANES) Route: IV, Drug Inactive form: INJ, ONCE, 2017 [facility] Stop date: [facility] 12/23/17 14:17:00 CDT ePHEDrine (ANES) Route: IV, Drug Inactive form: INJ, ONCE, 2017 [facility] l Stop date: [facility] 12/23/17 14:02:00 CDT ceFAZolin (ANES) Route: IV, Drug Inactive form: INJ, ONCE, 2017 [facility] Stop date: [facility] 12/23/17 14:02:00 CDT acetaminophen Route: IV, Drug Inactive H (ANES) 10 mg form: INJ, Start 2017 Me morial date: 12/23/17 [facility] 13:24:00 CDT, Stop date: 12/23/17 14:24:00 CDT Lactated Ringers Route: IV, Total Inactive 12/23 Injection IV Volume: 1,000, 2017 Ryan rial (ANES) 1000 mL Start date: [facility] 12/23/17 13:12:00 CDT, Stop date: 12/23/17 14:12:00 CDT Lidocaine 0.5 mL, Route: Inactive Hydrochloride 10 INTRADERM, 2017 Ryan rial MG/ML Injectable Dosing Weight C ity Solution 84.091, kg, ONCALL, Start date: 12/23/17 11:00:00 CDT, Duration: 1 doses or times Sodium Chloride 1,000 mL, Rate: Inactive 0.9% IV 1000 mL 25 ml/hr, Infuse 2018 [facility] over: 40 hr, [facility] Route: IV, Dosing Weight 84.091 kg, [...] Medi [place] tab, 1 Group Refill(s), Pharmacy: [facility] [id number], DUE FOR AN OFFICE VISIT. PLEASE CALL DR. FLETCHER'S OFFICE TO MAKE AN APT. lisinopril 20 mg 20 mg = 1 tab, No Longer oral tablet PO, Daily, # 90 Active 2017 Medi [place] tab, 1 Group Refill(s), Pharmacy: [facility] [id number], DUE FOR AN OFFICE VISIT. PLEASE CALL DR. COLVIN'S OFFICE TO MAKE AN APT. Metoprolol 100 mg = 1 tab, Active Succinate ER 100 PO, Daily, # 90 2017 Medical mg oral tablet, tab, 1 Group extended release Refill(s), [facility] [id number] atorvastatin 40 40 mg = 1 tab, Active 12/02/ M H mg oral tablet PO, Daily, # 90 2018 M edical tab, 1 Group Refill(s), Pharmacy: [facility] [id number] dapagliflozin 5 mg = 1 tab, Active propanediol 5 MG PO, Daily, 0 2018 Sc dical Oral Tablet Refill(s) Group [Farxiga] atorvastatin 40 40 mg = 1 tab, No Longer mg oral tablet PO, Daily, 0 Active 2017 [facility] [place] Refill(s) Group apixaban 5 MG 5 mg = 1 tab, Active Oral Tablet PO, BID, # 180 2016 Medic al [Eliquis] tab, 1 Group Refill(s), [facility] [id number] Allergies, Adverse Reactions, Alerts Substance Category Reaction Severity Reaction Status Date Comments S ource type Reported NKFA Assertion Food Active allergy Medical Group No Known Assertion Drug Medication allergy Medic al Allergies Group Immunizations No Data Provided for This Section Results Order Name Results Value Reference Date Interpretation Comments Ev rce Range CHEM PANEL Magnesium Lvl 2.2 1.8 - 2.4 01/02 [facility] ELECTROLYTE AGAP 12.7 10.0 - 01/02 S 20.0 [facility] ELECTROLYTE CO2 28 24 - 32 01/02 [facility] ELECTROLYTE Calcium Lvl 7.7 8.5 - 10.5 01/02 [facility] ELECTROLYTE BUN 12 7 - 22 01/02 [facility] ELECTROLYTE Sodium Lvl 143 135 - 145 01/02 [facility] ELECTROLYTE Chloride Lvl 106 95 - 109 01/02 [facility] ELECTROLYTE Potassium Lvl 3.7 3.5 - 5.1 01/02 [facility] ELECTROLYTE eGFR 85 01/02 [facility] Comment: The [facility] eGFR is City calculated using the [...] 161 70 - 99 01/02 [facility] ELECTROLYTE Creatinine 0.81 0.50 - 01/02 S Lvl 1.40 [facility] HEMATOLOGY MPV 8.2 7.4 - 10.4 01/02 [facility] HEMATOLOGY Platelet 247 133 - 450 01/02 [facility] HEMATOLOGY RDW 14.0 11.5 - 01/02 14.5 [facility] HEMATOLOGY WBC 9.7 3.7 - 10.4 01/02 [facility] HEMATOLOGY RBC 3.93 4.70 - 01/02 MH 6.10 [facility] HEMATOLOGY Hgb 12.0 14.0 - 01/02 MH 18.0 [facility] HEMATOLOGY Hct 35.4 42.0 - 01/02 MH 54.0 [facility] HEMATOLOGY MCV 90.1 80.0 - 01/02 MH 94.0 /2017 [facility] HEMATOLOGY MCH 30.6 27.0 - 01/02 MH 31.0 [facility] HEMATOLOGY MCHC 34.0 32.0 - 01/02 MH 36.0 [facility] HEMATOLOGY Basophils # 0.1 0.0 - 0.2 01/02 [facility] HEMATOLOGY Segs 66.9 45.0 - 01/02 MH 75.0 [facility] HEMATOLOGY Eosinophils 4.7 0.0 - 4.0 01/02 [facility] HEMATOLOGY Basophils 1.1 0.0 - 1.0 01/02 [facility] HEMATOLOGY Lymphocytes 19.1 20.0 - 01/02 MH 40.0 [facility] HEMATOLOGY Monocytes 8.2 2.0 - 12.0 01/02 [facility] HEMATOLOGY Segs-Bands # 6.5 1.5 - 8.1 01/02 [facility] HEMATOLOGY Eosinophils # 0.5 0.0 - 0.5 01/02 [facility] HEMATOLOGY Monocytes # 0.8 0.0 - 0.8 01/02 [facility] HEMATOLOGY Lymphocytes # 1.9 1.0 - 5.5 01/02 [facility] CARDIAC BNP 221 <=100 01/01 ENZYMES pg/mL /2017 [facility] CHEM PANEL Magnesium Lvl 1.4 1.8 - 2.4 01/01 [facility] ELECTROLYTE AGAP 10.5 10.0 - 01/01 MH S 20.0 [facility] ELECTROLYTE CO2 33 24 - 32 01/01 [facility] ELECTROLYTE Calcium Lvl 8.2 8.5 - 10.5 01/01 [facility] ELECTROLYTE Potassium Lvl 3.5 3.5 - 5.1 01/01 [facility] ELECTROLYTE Sodium Lvl 144 135 - 145 01/01 [facility] ELECTROLYTE Chloride Lvl 104 95 - 109 01/01 [facility] ELECTROLYTE BUN 18 7 - 22 01/01 [facility] ELECTROLYTE Glucose Lvl 107 70 - 99 01/01 [facility] ELECTROLYTE eGFR 80 01/01 [facility] Comment: The [facility] eGFR is City calculated using the [...] 01/01 MH S Lvl 1.40 [facility] HEMATOLOGY Segs-Bands # 6.9 1.5 - 8.1 01/01 [facility] Lymphocytes # 1.9 1.0 - 5.5 01/01 [facility] HEMATOLOGY Monocytes # 0.8 0.0 - 0.8 01/01 [facility] HEMATOLOGY Basophils # 0.1 0.0 - 0.2 01/01 [facility] HEMATOLOGY Eosinophils # 0.6 0.0 - 0.5 01/01 [facility] HEMATOLOGY Segs 66.9 45.0 - 01/01 MH 75.0 [facility] HEMATOLOGY Basophils 0.9 0.0 - 1.0 01/01 [facility] HEMATOLOGY Eosinophils 5.6 0.0 - 4.0 01/01 [facility] HEMATOLOGY Monocytes 7.8 2.0 - 12.0 01/01 [facility] HEMATOLOGY Lymphocytes 18.8 20.0 - 01/01 MH 40.0 [facility] HEMATOLOGY RDW 14.3 11.5 - 01/01 MH 14.5 [facility] HEMATOLOGY Platelet 271 133 - 450 01/01 [facility] HEMATOLOGY MPV 8.2 7.4 - 10.4 01/01 [facility] HEMATOLOGY WBC 10.3 3.7 - 10.4 01/01 [facility] MCHC 33.9 32.0 - 01/01 MH 36.0 [facility] HEMATOLOGY RBC 4.35 4.70 - 01/01 MH 6.10 [facility] HEMATOLOGY Hgb 13.3 14.0 - 01/01 18.0 [facility] HEMATOLOGY Hct 39.3 42.0 - 01/01 MH 54.0 [facility] HEMATOLOGY MCV 90.5 80.0 - 01/01 94.0 [facility] HEMATOLOGY MCH 30.6 27.0 - 01/01 31.0 [facility] URINE AND UA Ketones Negative 01/01 STOOL [facility] URINE AND UA Glucose 150 01/01 STOOL [facility] URINE AND UA Sq Epi None Seen 01/01 STOOL [facility] URINE AND UA Bacteria Few /HPF None Seen 01/01 STOOL /HPF /2017 [facility] URINE AND UA Mucus Few /LPF None Seen 01/01 STOOL /LPF [facility] URINE AND UA RBC 85 0 - 2 01/01 STOOL [facility] URINE AND UA Blood Moderate Negative 01/01 STOOL *ABN* /2017 [facility] (12/31/17 11:41 PM) [facility] URINE AND UA 4.0 0.1 - 1.0 01/01 STOOL Urobilinogen /2017 [facility] URINE AND UA pH 7.0 5.0 - 8.0 01/01 STOOL /2017 [facility] URINE AND UA Leuk Est Moderate Negative 01/01 STOOL *ABN* /2017 [facility] (12/31/17 11:41 PM) [facility] URINE AND UA WBC 72 0 - 5 01/01 STOOL /2017 [facility] URINE AND UA Bili Negative Negative 01/01 STOOL *NA* /2017 [facility] (12/31/17 11:41 PM) [facility] URINE AND UA Nitrite Negative Negative 01/01 STOOL (12/31/17 11:41 PM) /2017 Memor ial [place] URINE AND UA Turbidity Slight Clear 01/01 STOOL *ABN* /2017 [facility] (12/31/17 11:41 PM) [facility] URINE AND UA Spec Grav 1.018 <=1.030 01/01 STOOL [facility] URINE AND UA Color Dark Yellow Yellow 01/01 STOOL *NA* /2017 [facility] (12/31/17 11:41 PM) [facility] URINE AND UA Protein >=300 Negative 01/01 STOOL mg/dL mg/dL [facility] ELECTROLYTE Potassium Lvl 4.3 3.5 - 5.1 12/18 S [facility] ELECTROLYTE Chloride Lvl 109 95 - 109 12/18 [facility] ELECTROLYTE CO2 28 24 - 32 12/18 [facility] ELECTROLYTE Calcium Lvl 9.8 8.5 - 10.5 12/18 [facility] ELECTROLYTE Sodium Lvl 145 135 - 145 12/18 [facility] ELECT[facility]OL[facility]TE Glucose Lvl 144 70 - 99 12/18 [facility] ELECTROLYTE BUN 17 7 - 22 12/18 [facility] ELECTROLYTE eGFR 63 12/18 Result Comment: The [facility] eGFR is City calculated using the [...] 12/18 S Lvl 1.40 /2017 [facility] ELECTROLYTE AGAP 12.3 10.0 - 12/18 S 20.0 [facility] HEMATOLOGY Hct 43.7 42.0 - 12/18 54.0 [facility] HEMATOLOGY Hgb 14.7 14.0 - 12/18 18.0 [facility] Pathology Reports No Data Provided for This Section Diagnostic Reports Report Value Date Source Chest 1view DX EXAM: Chest 1view DX 01/01/[address] [facility] HISTORY: - mild SOB COMPARISON: None Impression: [...] p Temperature Oral (F) 97.8 F 01/02/2018 [facility] Systolic (mm Hg) 155 01/02/[address] [facility] Diastolic (mm Hg) 90 01/02/2018 [facility] Respitory Rate 18 01/02/[address] [facility] C [facility]y Heart Rate 65 01/02/2018 [facility] 16 01/02/[address] [facility] C ity Temperature Oral (F) 98.2 F 01/02/2018 [facility] Heart Rate 60 01/02/[address] [facility] Cit y Systolic (mm Hg) 149 01/02/[address] [facility] [place] Diastolic (mm Hg) 72 01/02/2018 [facility] Heart Rate 65 01/02/[address] [facility] Cit y Respitory Rate 16 01/02/[address] [facility] C ity Systolic (mm Hg) 136 01/02/[address] [facility] Diastolic (mm Hg) 61 01/02/2018 [facility] Temperature Oral (F) 98.3 F 01/02/2018 [facility] BMI Calculated 27.89 01/01/[address] [facility] C ity Weight 93.295 01/01/[address] [facility] Cit y Height 182.88 cm 01/01/2018 [facility] Systolic (mm Hg) 142 12/23/[address] [facility] [place] Diastolic (mm Hg) 69 12/23/2017 [facility] Respitory Rate 19 12/23/[address] [facility] C ity Systolic (mm Hg) 143 12/23/[address] [facility] [place] Diastolic (mm Hg) 65 12/23/2017 [facility] Respitory Rate 20 12/23/[address] [facility] C ity Systolic (mm Hg) 143 12/23/[address] [facility] [place] Diastolic (mm Hg) 62 12/23/2017 [facility] Respitory Rate 20 12/23/[address] [facility] C ity Heart Rate 74 12/23/2017 [facility] [...] Number For Provider Date Date Visit Outpatient [id number] [facility] 07/05 [facility] [place] Outpatient [id number] NUCLEAR 08/13 [facility] SCAN VISIT /2015 [facility] n Outpatient [id number] [facility] 08/20 [facility] SCAN VISIT /2015 [facility] n Outpatient [id number] [facility] 08/20 [facility] [place] Outpatient [id number] [facility] 12/05 [facility] [place] Outpatient [id number] [facility] 06/06 [facility] Outpatient [id number] ECHO VISIT 06/20 [facility] Phone [id number] 07/19 07/21 Cardiology Message /2016 Medic al [facility] Outpatient [id number] FRANCES 11/28 [facility] Outpatient [id number] Anderson 11/28 11/29 Cardiology David /2017 Medic al [facility] Day [facility] [id number] Fer Efren 12/23 12/23 [facility] Gomez /2017 [facility] Emergency [id number] Neri 01/01 01/01 [facility] /2017 Memori al [facility] Inpatient [id number] Latonya Latonya Pe 01/01 01/02 [facility] /2017 [facility] Phone [id number] 01/06 01/08 Urology Message /2017 [facility] Outpatient [id number] ROBBI 01/16 [facility] Ambulatory [id number] Robbi 01/16 01/16 Urology [facility] [id number] ROBBI 02/24 [facility] Outpatient [id number] Anderson 02/24 02/25 Urology David /2017 [facility] Outside [id number] 03/19 03/21 Cardiology Medical /2017 [facility] Outpatient [id number] FRANCES 05/05 [facility] [id number] Anderson 05/05 05/06 Cardiology David /2017 [facility] OP Therapy [id number] Yakov 09/22 10/22 [facility] Patients [facility] OP Therapy [id number] Yakov 10/22 11/21 [facility] Outpatient [id number] FRANCES 11/03 [facility] [id number] Frances 11/03 11/04 Cardiology Bellamy /2018 [facility] Outpatient [id number] Frances 05/04 [facility] [id number] Frances 05/04 05/05 Cardiology Bellamy /2018 [facility] Outpatient [id number] Frances 11/02 [facility] Outpatient [id number] Frances 11/02 11/03 Cardiology Bellamy /2019 [facility] Outpatient [id number] Gabrielle 02/23 [facility] Multi Outpatient [id number] Luba 02/23 02/24 Specialty Joseph /2019 [facility] Outpatient [id number] [facility] 10/31 [facility] Procedures Procedure Code Date Perfomer [place] [address] 02/24/2018 [facility] residual urine and/or bladder capacity by ultrasound, non-imaging CABG - Coronary [id number] 1999 Medica l artery bypass Group, graft<sup>1</sup> [facility] Cardiac [id number] Open Grafts Medical catheterization<sup 2004 Group , >2</sup> [facility] Carotid [id number] Right and left Medical endarterectomy<sup> Group , 3</sup> [facility] DELORIS Villalpando Repair of [id number] 1 week ago Medical diaphragmatic Group, hiatal [facility] hernia<sup>4</sup> [facility], [facility] DELORIS Villalpando Assessment and Plan [...] Social History TypeResponse 12/18/[address] [facility] Alcohol Past Smoking Status Former smoker; Exposure to Tobacco Smoke None; Cigarette Smoking Last 365 Days No; Reg Smoking Cessation Counseling No entered on: 12/31/17 Social History TypeResponse 12/18/2017 [facility] DELORIS pozo Alcohol Past Smoking Status Former smoker; Exposure to Tobacco Smoke None; Cigarette Smoking Last 365 Days No; Reg Smoking Cessation Counseling No entered on: 11/03/18 Family History No Data Provided for This Section Advance Directives No Data Provided for This Section Functional Status No Data Provided for This Section
--- OUTSIDE RECORDS SUMMARY | 2020-08-08 18:57 | XMS REPORT | Continuity of Care Document ---
:1940 Author Organization [facility] t Address [address] [place] [address] Care Team Providers Name Role Phone Pcp [...] Memoria PAIN 2-13 09:39:00 l DJD 08:38: Edmund LUMBAR 00 PAIN Active 10/22/2018 [facility] Erosion of Erosion of Disease Active C [...] Edmund UTI, 00 KIDNEY INJURY Active 12/31/2017 [facility] INJURY OF Diagnosis Active 2018-01-07 Memoria URETER 4-24 22:03:00 l INJURY 00:00: Edmund OF URETER 00 Active 12/31/2017 [facility] [id number], Diagnosis Active 2018-04-17 Memoria 60151 3-27 16:05:00 l BILATERAL 00:00: Edmund UMBILICAL [id number], 00 OUMAR 49762 BILATERAL UMBILICAL OUMAR Active 12/03/2017 [facility] Chest pain Problem Active 2020-02-27 M emoria (finding) 2- 00:55:05 l Chest 00:00: [place] pain 00 (finding) Active 10/30/2012 Problem 02/27/2020 Data migrated from [employer] on 02/05/15. Medical Group,[facility] [place] History of History of Problem Resolve Univers [...] d injury of ureter, initial encounter 01/05/2018 [facility] Carotid Problem Active 2020-02-27 Ryan melodie atheroscle 00:55:05 l rosis Carotid Edmund (disorder) atheroscle rosis (disorder) Active Problem 02/27/2020 Medical Group,[facility] [place] Coronary Problem Active 2020-02-27 Mem oria arterioscl 00:55:05 l erosis Coronary Brennen watt (disorder) arterioscl erosis (disorder) Active Problem 02/27/2020 Data migrated from [employer] on 02/05/15. Medical Group,[facility] Diabetes Problem Active 2020-02-27 Mem oria mellitus 00:55:05 l (disorder) Diabetes He rmann mellitus (disorder) Active Problem 02/27/2020 Medical Group,[facility] Hyperlipid Problem Active 2020-02-27 M emoria emia 00:55:05 l (disorder) Brennen n Hyperlipid emia (disorder) Active Problem 02/27/2020 Medical Group,[facility] [place] Hypertensi Problem Active 2020-02-27 M emoria ve 00:55:05 l disorder, Edmund systemic Hypertensi arterial ve (disorder) disorder, systemic arterial (disorder) Active Problem 02/27/2020 Data migrated from [employer] on 02/05/15. Medical Group,[facility] Mitral Problem Active 2020-02-27 Memor ia valve 00:55:05 l regurgitat Mitral Herm donavon ion valve (disorder) regurgitat ion (disorder) Active Problem 02/27/2020 Medical Group,[facility] Nonspecifi Problem Active 2020-02-[address]-T 00:55:05 l abnormalit Brennen n y on Nonspecifi electrocar c ST-T diogram abnormalit (finding) y on electrocar diogram (finding) Active Problem 02/27/2020 Medical Group,[facility] Persistent Problem Active 2020-02-27 M emoria atrial 00:55:05 l fibrillati Brennen n on Persistent (disorder) atrial fibrillati on (disorder) Active Problem 02/27/2020 Medical Group,[facility] Tricuspid Problem Active 2020-02-27 Me moria valve 00:55:05 l regurgitat Brennen n ion Tricuspid (disorder) valve regurgitat ion (disorder) Active Problem 02/27/2020 Medical Group,[facility] Femoral Problem Active 2020-02-27 Ryan melodie hernia 00:55:05 l (disorder) Femoral Her dickson hernia (disorder) Active Problem 02/27/2020 Medical Group,[facility] Gastroesop Problem Active 2020-02-27 M emoria hageal 00:55:05 l reflux [place] disease Gastroesop with hageal esophagiti reflux s disease (disorder) with esophagiti s (disorder) Active Problem 02/27/2020 Medical [facility] [place] Glaucoma Problem Active 2020-02-27 Mem oria (disorder) 00:55:05 l Glaucoma Brennen n (disorder) Active Problem 02/27/2020 Medical Group,[facility] [place] Umbilical Problem Active 2020-02-27 Me moria hernia 00:55:05 l (disorder) Brennen n Umbilical hernia (disorder) Active Problem 02/27/2020 Medical [facility] [place] ALTERED Diagnosis Active 2017-12-31 Me moria MENTAL 22:28:00 l STATUS, ALTERED Brennen n UNSPECIFIE MENTAL D STATUS, UNSPECIFIE D Active [facility] UNSPECIFIE Diagnosis Active 2018-01-07 Memoria D INJURY 22:03:00 l OF URETER, Brennen n INITIAL EN UNSPECIFIE D INJURY OF URETER, INITIAL EN Active [facility] AMS/ UTI/ Diagnosis Active 2018-01-01 Memoria DIRECT 19:23:00 l ADMIT AMS/ [place] UTI/ DIRECT ADMIT Active [facility] Allergies, Adverse Reactions, Alerts Allergy Allergy Status Severity Reaction(s) Onset Inactive Treating Comm ents Source Name Type Date Date Clinician NKFA NKFA Active Memoria l [place] No Known No Known Active Memori a Medicati Medicati l on on [place] Allergie Allergie s s Social History Social Habit Start Date Stop Date Quantity Comments Source Sex Assigned At [facility] Tobacco use and 2018-05-14 2018-05-14 Never used [facility] - exposure 00:00:00 00:00:00 [facility] Alcohol intake 2018-05-14 2018-05-14 Current [facility] [place] [facility] - 00:00:00 00:00:00 non-drinker of Medical Ce nter alcohol (finding) Tobacco Comment 2018-04-30 2018-04-30 quit 30 yrs ago [facility] - 00:00:00 00:00:00 [facility] Social History 2017-12-18 2017-12-18 [facility] ermann 16:53:06 16:53:06 Smoking Status Start Date Stop Date Source Never smoker [facility] Former smoker 2018-05-14 00:00:00 2018-05-14 00:00:[address] [facility] Medications Ordered Filled Start Stop Current Ordering Indication Dosage Frequency Signature Comments Components Source Medication Medication Date Date Medication? Clinician (SIG) Name Name lisinopril Yes 20 mg = 1 Me moria 20 mg oral 2-24 tab, PO, l tablet 17:14: Daily, 0 [place] 00 Refill(s) Aspirin 81 2019-0 Yes 81 mg = 1 Me moria MG Enteric 2-24 tab, PO, l Coated 17:14: Daily, # Edmund Tablet 00 90 tab, 3 Refill(s) NovoLog 2019-0 Yes SUB-Q, Memoria 2-24 TID-Before l 17:14: Meals, 0 [place] 00 Refill(s) lisinopril Yes 40 mg = 1 Me moria 40 mg oral 8-26 tab, PO, l tablet 15:26: Daily, 0 [place] 00 Refill(s) apixaban 5 Yes 5 mg = 1 Mem oria MG Oral 3-29 tab, PO, l Tablet 19:59: BID, # 180 Larissa nn [Eliquis] 56 tab, 3 Refill(s), Pharmacy: [facility] [id number] lisinopril 0 Yes 5 mg = 1 Mem oria 5 mg oral 2-25 tab, PO, l tablet 16:45: BID, 0 [place] 00 Refill(s) sitagliptin Yes 50 mg = 1 M emoria 50 MG Oral 2-25 tab, PO, l Tablet 16:45: Daily, 0 [place] [Januvia] 00 Refill(s) atorvastati Yes 40mg QD Take [address] [facility] (LIPITOR) 05-16 by mouth Luke s - 40 MG 14:03: daily. Medical tablet 36 [place] lisinopril Yes 20mg QD Take [address] (PRINIVIL,Z 05-16 by mouth Luke s - ESTRIL) 20 14:03: daily. Medic al MG tablet 36 [place] amLODIPine Yes 5mg QD Take 5 mg [...] mouth Medica l 24 hr 36 daily. [place] capsule travoprost 2018-0 Yes 1[drp] QD Place [address] (TRAVATAN 9-07 drop into kes - Z) 0.004 % 14:03: both eyes Me dical Drop 36 nightly. Center ophthalmic drops brimonidine 2018-0 Yes 1[drp] QD 1 drop [facility] [...] mg tablet 14:03: daily. Medica l 36 [place] Ciprofloxac 2017-0 Yes 250 mg = 1 Memoria in 250 MG 6-18 tab, PO, l Oral Tablet 15:22: Q12H, X 7 H ermann [Cipro] 00 day, # 14 tab, 0 Refill(s), Pharmacy: [facility] [id number] Eliquis No Notes: Memoria 01-02 Same as: l 22:00: Eliquis [place] 00 Acetaminoph Yes 1 tab, PO, Memoria [...] ophthalmic 01-02 (Same As: l 02:00: Alphagan) Edmund latanoprost No Notes: Ryan melodie ophthalmic 4-26 Keep l 02:00: refrigerat Edmund 00 ed. (Same as:Darlin ) Opened bottle may be stored at room temperatur e for 6 weeks Magnesium No Notes: Memori a Sulfate 4-25 WASTE: F/P l 23:00: - Sink; E [place] 00 - Municipal Trash Bin travoprost No 1 drp, Memor ia 0.04 MG/ML -25 Route: l Ophthalmic 22:00: BOTH EYES, H ermann Solution 00 Drug Form: [Travatan] SOLN, Dosing Weight 93.295, kg, QPM, Start date: 01/01/18 17:00:00 CDT, Duration: 30 day, Stop date: 01/30/18 17:00:00 CDT Protonix No Notes: Memoria 4-25 Tablet l 16:30: should not Edmund 00 be chewed or crushed. Docusate No Notes: Memoria 4-25 (Same as: l 14:00: Colace) [place] (Do Not Crush) albumin No Notes: Memoria human 25% 4-25 LOT#: l intravenous 10:48: [place] solution 00 ___ Mfg: WASTE: F/P - [...] 4-25 (Same As: l 05:00: Rocephin). Edmund Use with 100 mL NS and infuse [...] Syringe 4-25 25 mL, l 04:08: Route: IVP, Drug Form: INJ, Dosing Weight [...] CDT Saline No Notes: Memoria Flush 0.9% -25 (Same as: l 04:07: BD Posiflush) Ondansetron No Notes: Ryan melodie 4-25 (Same as: l 04:07: Zofran ODT) Morphine No Notes: Memoria 4-25 (Same l 04:07: as:MORPhin e Sulfate) Acetaminoph No Notes: Do M emoria en 4-25 not exceed l 04:07: 4 gm/day. (Same as: Tylenol) Acetaminoph No Notes: Ryan melodie en 325 MG / 4-25 (Same as: l Hydrocodone 04:07: Shonto Larissa nn Bitartrate 00 325/5) Do 5 MG Oral not exceed Tablet 4gm/day of acetaminop hen. Sodium No 1,000 mL, Memori a Chloride 4-25 Rate: 75 l 0.9% IV 04:07: ml/hr, [place] 1,000 mL 00 Infuse over: 13.3 hr, Route: IV, Dosing Weight 93.295 kg, Total Volume: 1,000, Start date: 12/31/17 23:07:00 CDT, Duration: 30 day, Stop date: 01/30/18 23:06:00 CDT, 2.19, m2 glycopyrrol 2018-0 No Route: IV, Memoria ate (ANES) -16 Drug form: l 21:01: INJ, ONCE, Stop date: 12/23/17 16:01:00 CDT neostigmine 2017-0 No Route: IV, Memoria (ANES) 4-16 Drug form: l 21:01: INJ, ONCE, Stop date: 12/23/17 16:01:00 CDT ondansetron 2017-0 No Route: IV, Memoria (ANES) 16 Drug form: l 20:52: INJ, ONCE, Stop date: 12/23/17 15:52:00 CDT Hydralazine 2018-0 No 10 mg, Ryan melodie 416 Route: l 19:45: IVP, Edmund 00 Q20Min, Dosing Weight 84.091, kg, PRN Elevated BP, Start date: 12/23/17 14:45:00 CDT, Duration: 2 doses or times, Stop date: Limited # of times Ondansetron 2018-0 No 4 mg, Memor ia 416 Route: l 19:45: IVP, ONCE, [place] 00 Dosing Weight 84.091, kg, PRN Nausea & Vomiting, Start date: 12/23/17 14:45:00 CDT Morphine 2018-0 No 2 mg, Memoria 4-16 Route: l 19:45: IVP, Edmund 00 Q5Min, Dosing Weight 84.091, kg, PRN [...] Flumazenil 2018-0 No 0.2 mg, Ryan melodie 12-23 Route: l 19:45: IVP, PRN, Dosing Weight [...] ONCE, Stop date: 12/23/17 14:22:00 CDT fentaNYL 2017-0 No Route: IV, Mem oria (ANES) 4-16 [...] 2018-0 No 1,000 mL, Memori a Chloride 12-23 [...] 1000 mg Product Wasted: ___ mg amLODIPine 2017-0 Yes 5 mg = 1 Mem oria 5 mg oral 3-26 tab, PO, l tablet 18:46: Daily, # [place] 05 90 tab, 1 Refill(s), Pharmacy: [facility] [id number], DUE FOR AN OFFICE VISIT. PLEASE CALL DR. CRUZ' S OFFICE TO MAKE AN APT. lisinopril 2018-0 No 20 mg = 1 Me moria 20 mg oral 3-26 tab, PO, l tablet 18:44: Daily, # Edmund 59 90 tab, 1 Refill(s), Pharmacy: [facility] [place] [address], DUE FOR AN OFFICE VISIT. PLEASE CALL DR. COLVIN 'S OFFICE TO MAKE AN APT. Metoprolol 2018 Yes 100 mg = 1 M emoria Succinate 3-26 tab, PO, l ER 100 mg 18:44: Daily, # Herm donavon oral 22 90 tab, 1 tablet, Refill(s), extended Pharmacy: release [facility] [place] [address] atorvastati Yes 40 mg = 1 M emoria n 40 mg - tab, PO, l oral tablet 18:44: Daily, # He rmann 00 90 tab, 1 Refill(s), Pharmacy: [facility] [place] [address] dapaglifloz Yes 5 mg = 1 Me moria in 11-28 tab, PO, l propanediol 16:04: Daily, 0 He rmann 5 MG Oral 00 Refill(s) Tablet [Farxiga] atorvastati No 40 mg = 1 M emoria n 40 mg - tab, PO, l oral tablet 16:04: Daily, 0 He rmann 00 Refill(s) apixaban 5 2016-09 Yes 5 mg = 1 Mem oria MG Oral 1-10 tab, PO, l Tablet 22:10: BID, # 180 Larissa nn [Eliquis] 44 tab, 1 Refill(s), Pharmacy: [facility] [place] [address] Metoprolol Metoprolol Yes Uni vers Tartrate 25 Tartrate 25 i ty of MG Oral MG Oral [place] Tablet Tablet Physici ans GlipiZIDE GlipiZIDE Yes Unive rs 10 MG Oral 10 MG Oral ity of Tablet Tablet [place] [facility] PriLOSEC 10 PriLOSEC 10 Yes U nivers MG CPDR MG CPDR ity of [place] Physici ans Atorvastati Atorvastati Yes U nivers n Calcium n Calcium ity o f 40 MG Oral 40 MG Oral Qasim as Tablet Tablet Physici ans Travatan Z Travatan Z Yes Uni vers 0.004 % 0.004 % ity of Ophthalmic Ophthalmic Qasim as Solution Solution Physici ans Deedee Deedee Yes Univers Aspirin Aspirin ity of TABS TABS [place] Phys[facility] MetFORMIN MetFORMIN Yes Unive rs HCl - 1000 HCl - 1000 ity of MG Oral MG Oral [place] Tablet Tablet Physici ans Lisinopril Lisinopril Yes Uni vers 40 MG Oral 40 MG Oral ity of Tablet Tablet [place] Physici ans AmLODIPine AmLODIPine Yes Uni vers Besylate 5 Besylate 5 ity of MG Oral MG Oral [place] Tablet Tablet Physici ans Tamsulosin Tamsulosin Yes Uni vers HCl CAPS HCl CAPS ity of [place] Physici ans Ciprofloxac Ciprofloxac Yes U nivers [...] Oral MG Oral ity of Tablet Tablet [place] [facility] Eliquis 2.5 Eliquis 2.5 Yes U nivers MG Oral MG Oral ity of Tablet Tablet [place] [facility] Vital Signs Vital Name Observation Time Observation Value Comments Source Systolic (mm Hg) 2020-02-24 14:38:00 Ryan rial [place] Diastolic (mm Hg) 2020-02-24 14:38:00 Mem orial [place] Heart Rate 2020-02-24 14:38:00 [facility] Height 2020-02-24 14:38:[address] [facility] Weight 2020-02-24 14:38:00 [facility] BMI Calculated 2020-02-24 14:38:00 Memori al [place] Systolic (mm Hg) 2019-11-02 17:12:00 Ryan rial [place] Diastolic (mm Hg) 2019-11-02 17:12:00 Mem orial [place] Heart Rate 2019-11-02 17:12:00 [facility] Height 2019-11-02 17:12:[address] [facility] Weight 2019-11-02 17:12:00 [facility] BMI Calculated 2019-11-02 17:12:00 Memori al [place] Systolic (mm Hg) 2019-05-04 15:24:00 Ryan rial [place] Diastolic (mm Hg) 2019-05-04 15:24:00 Mem orial [place] Heart Rate 2019-05-04 15:24:00 Memorial [place] Height 2019-05-04 15:24:00 180.34 cm Memorial [place] Weight 2019-05-04 15:24:00 [facility] [place] BMI Calculated 2019-05-04 15:24:00 Memori al [place] BMI Calculated 2018-11-03 16:43:00 Memori al [place] Weight 2018-11-03 16:43:00 Memorial [place] Height 2018-11-03 16:43:00 177.8 cm [facility] [place] Systolic (mm Hg) 2018-11-03 16:43:00 Ryan rial [place] Diastolic (mm Hg) 2018-11-03 16:43:00 Mem orial [place] Heart Rate 2018-11-03 16:43:00 Memorial [place] Height 2018-09-17 10:37:00 71 [in_us] [facility] Weight 2018-09-17 10:37:00 198 [lb_av] [facility] Body Mass Index 2018-09-17 10:37:00 27.62 kg/m2 Unive rsity of Calculated [place] [facility] Heart Rate 2018-05-05 16:44:00 [facility] [place] Systolic (mm Hg) 2018-05-05 16:44:00 Ryan rial [place] Diastolic (mm Hg) 2018-05-05 16:44:00 Mem orial [place] Weight 2018-05-05 16:44:00 [facility] [place] BMI Calculated 2018-05-05 16:44:00 Memori al [place] Height 2018-05-05 16:44:00 177.8 cm Memorial Edmund BMI Calculated 2018-02-24 15:01:00 Memori al [place] Weight 2018-02-24 15:01:00 [facility] Edmund Height 2018-02-24 15:01:00 182.88 cm [facility] [place] Systolic (mm Hg) 2018-02-24 15:01:00 Ryan rial [place] Diastolic (mm Hg) 2018-02-24 15:01:00 Mem orial [place] Heart Rate 2018-02-24 15:01:00 [facility] Edmund Temperature Oral (F) 2018-01-02 21:08:00 97.8 F Memorial [place] Systolic (mm Hg) 2018-01-02 21:08:00 Ryan rial [place] Diastolic (mm Hg) 2018-01-02 21:08:00 Mem orial [place] Respitory Rate 2018-01-02 21:08:00 Memori al [place] Heart Rate 2018-01-02 21:08:00 Memorial [place] Respitory Rate 2018-01-02 16:25:00 Memori al [place] Temperature Oral (F) 2018-01-02 16:25:00 98.2 F [facility] [place] Heart Rate 2018-01-02 16:25:00 [facility] [place] Systolic (mm Hg) 2018-01-02 16:25:00 Ryan rial [place] Diastolic (mm Hg) 2018-01-02 16:25:00 Mem orial [place] Heart Rate 2018-01-02 12:58:00 Memorial [place] Respitory Rate 2018-01-02 12:58:00 Memori al [place] Systolic (mm Hg) 2018-01-02 12:58:00 Ryan rial [place] Diastolic (mm Hg) 2018-01-02 12:58:00 Mem orial [place] Temperature Oral (F) 2018-01-02 12:58:00 98.3 F Memorial [place] BMI Calculated 2018-01-01 03:40:00 Memori al [place] Weight 2018-01-01 03:40:00 Memorial [place] Height 2018-01-01 03:40:00 182.88 cm Memorial [place] Systolic (mm Hg) 2017-12-23 21:45:00 Ryan rial [place] Diastolic (mm Hg) 2017-12-23 21:45:00 Mem orial [place] Respitory Rate 2017-12-23 21:45:00 Memori al [place] Systolic (mm Hg) 2017-12-23 21:39:00 Ryan rial [place] Diastolic (mm Hg) 2017-12-23 21:39:00 Mem orial [place] Respitory Rate 2017-12-23 21:39:00 Memori al [place] Systolic (mm Hg) 2017-12-23 21:24:00 Ryan rial [place] Diastolic (mm Hg) 2017-12-23 21:24:00 Mem orial [place] Respitory Rate 2017-12-23 21:24:00 Memori al [place] Heart Rate 2017-12-23 15:46:00 Memorial [place] BMI Calculated 2017-12-18 15:02:00 Brian al [place] Weight 2017-12-18 15:02:00 [facility] [place] Height 2017-12-18 15:02:00 180.34 cm Memorial [place] BMI Calculated 2017-11-28 16:03:00 Brian al [place] Heart Rate 2017-11-28 16:03:00 [facility] [place] Systolic (mm Hg) 2017-11-28 16:03:00 Ryan martinez [place] Diastolic (mm Hg) 2017-11-28 16:03:00 Mem orial [place] Height 2017-11-28 16:03:00 177.8 cm Memorial [place] Weight 2017-11-28 16:03:00 [facility] [place] Procedures Procedure Date / Time Performing Clinician Source Performed Pre Op Promise 29 Survey 2018-09-10 00:00:00 [facility] Measurement of 2018-02-24 15:04:00 [facility] Her dickson post-voiding residual urine and/or bladder capacity by ultrasound, non-imaging History of Heart Surgery [facility] History of Angioplasty [facility] Internal Carotid Artery Physicia ns CABG - Coronary artery [facility] Edmund bypass graft<sup>1</sup> Cardiac [facility] Edmund catheterization<sup>2</s up> Carotid [facility] Emdund endarterectomy<sup>3</beckett p> Repair of diaphragmatic [facility] [place] hiatal hernia<sup>4</sup> Plan of Care Planned Activity Planned Date Details Comments Source Future Scheduled 2020-05-10 INFLUENZA VACCINE (#1) [facility] Test 00:00:00 [code = INFLUENZA Medical Ce nter VACCINE (#1)] Future Scheduled 2005-07-[address] [facility] - Test 00:00:00 WELLNESS (YEAR 2 or Medical Center FIRST YEAR if no IPPE) [code = MEDICARE ANNUAL WELLNESS (YEAR 2 or FIRST YEAR if no IPPE)] Future Scheduled 2004 PNEUMOCOCCAL 65+ YRS [facility] - Test 00:00:00 (1 of 1 - Medical Center [id number] PCV13) [code = PNEUMOCOCCAL 65+ YRS (1 of 1 - [id number] PCV13)] Encounters Start End Encounter Admission Attending Care Care Encounter Source Date/Time Date/Time Type Type Clinicians Facility Department ID 2020-02-24 2020-02-24 Outpatient JES Menezes [id number] 09:00:00 23:59:59 Gabrielle L 16 2019-11-02 2019-11-02 [place] [id number] 11:00:00 23:59:59 Syed Aden 14 2019-05-04 2019-05-04 [place] [id number] 10:15:00 23:59:59 Syedshukri Samaniego 13 2018-10-22 2018-11-20 Outpatient Toro [id number] 08:38:00 23:59:00 Yakov [id number] Strake [id number] 5.98 2018-11-03 2018-11-03 [place] [id number] 10:30:00 23:59:59 Syed Samaniego 12 2018-09-22 2018-10-21 Outpatient Toro [id number] 09:51:00 23:59:00 Yakov [id number] Straaleksander [id number] 5.98 2018-09-17 2018-09-17 Appointmen [facility] [id number] Univers 09:30:00 09:30:00 t; Carlos Eduardo YAÑEZ Ortho and ity of TORO, Spine [facility] Allison Wahl M.D. [place] ans 2018-05-05 2018-05-05 [place] [id number] 11:15:00 23:59:59 Syedshukri Samaniego 09 2018-03-19 2018-03-20 Outpatient MG MG [id number] 13:39:00 23:59:59 06 2018-02-24 2018-02-24 [place] [id number] 09:15:00 23:59:59 Robbi 11 2018-01-16 2018-01-16 [place] [id number] 14:15:00 14:15:00 Robbi 10 2018-01-16 2018-01-16 Outpatient Lux, [facility] [id number] 14:15:00 14:15:00 Robbi 10 2018-01-06 2018-01-07 Outpatient [facility] [id number] 11:57:00 23:59:59 05 2017-12-31 2018-01-02 Outpatient Latonya Kamara [facility] [id number] 22:14:00 16:55:00 A 14 2017-12-31 2017-12-31 Outpatient Katy, [facility] [id number] 22:12:00 22:12:00 Neri 02 Tello 2017-12-23 2017-12-23 Outpatient Gomez, Fer [facility] [id number] 05:43:00 17:20:00 Efren Duvall 2017-11-28 2017-11-28 Outpatient Nancy [facility] [id number] 10:45:00 23:59:59 Laith Wilson Max 2017-11-28 2017-11-28 Outpatient Nancy [facility] [id number] 10:45:00 23:59:59 Laith Wilson Max 2017-07-19 2017-07-20 Outpatient [facility] [id number] 16:08:00 23:59:59 04 2017-04-30 2017-04-30 AppointKLEBER Campa [facility] [id number] Univers 11:30:00 11:30:00 t; Carlos Eduardo YAÑEZ it y of Sandra ENGEL Physici M.D. ans Results Test Test Test Results Result Source Description Time Comments Comments [U] XRAY SPINE 2018-09- Images acquired, not University of LUMBOSACRAL MIN reported on this Qasim as 4 VWS [id number] 11:15:00 accession number. Jett ians [U] XRAY HIPS 2018-09- Images acquired, not U niversity of BILATERAL MIN 2 reported on this Qasim as VWS AND AP 07:43:00 accession number. Ailyn no PELVIS [id number] TISSUE EXAM 2018-05- Surgical Pathology 10 Report 17:28:00 Case: [id number] Authorizing Provider: Byron Ardon MD Collected: 05/13/2018 1448 Ordering Location: [facility] Received: 05/14/2018 0818 SERVICES Pathologist: [...] FAST MICROORGANISMS Signing Pathologist Direct Phone Line: [phone] ly signed by Eze Guzman MD on 05/19/2018 at 5:28 PMPreliminary result electronically signed by Eze Guzman MD on 05/16/2018 at 11:49 AMSpecial stains for AFB and GMS were negative for acid fast and fungal microorganisms, respectively. [id number] bladder emptying A. Mesh; B. Bladder with [...] surface throughout. No discrete masses are identified. Dive Superintendent sections are submitted in cassettes C1-C19. DB/plPerformed POCT-GLUCOSE METER 2018-05-16 07:37:00 Test Item Value Reference Range Interpretation Comme nts POC-GLUCOSE METER (BEAKER) (test 184 mg/dL 70-110 H TESTED AT [facility] [address] code = 1538) [facility] 7703 0 BASIC METABOLIC [id number] 06:19:00 Test Item Value Reference Range Interpretation [...] RED BLOOD CELLS 0 /100 WBC 0-0 ([facility]) (test code = 413) POCT-GLUCOSE [id number] 21:51:00 Test Item Value Reference Range Interpretation Comments POC-GLUCOSE METER 216 mg/dL 70-110 H TESTED AT [place] [address] ([facility]) (test code = TALA Shultz [facility] 1538) [address] POCT-GLUCOSE [id number] 19:28:00 Test Item Value Reference Range Interpretation Comments POC-GLUCOSE METER 186 mg/dL 70-110 H TESTED AT [place] [address] ([facility]) (test code = TALA Shultz [facility] 1538) [address] POCT-GLUCOSE [id number] 16:57:00 Test Item Value Reference Range Interpretation Comments POC-GLUCOSE METER 215 mg/dL 70-110 H TESTED AT [place] [address] ([facility]) (test code = TALA Shultz [facility] 1538) [address] POCT-GLUCOSE [id number] 12:43:00 Test Item Value Reference Range Interpretation Comments POC-GLUCOSE METER 223 mg/dL 70-110 H TESTED AT [place] [address] ([facility]) (test code = TALA Shultz [facility] 1538) [id number] POCT-GLUCOSE [id number] 08:13:00 Test Item Value Reference Range Interpretation Comments POC-GLUCOSE METER 157 mg/dL 70-110 H TESTED AT [place] [address] ([facility]) (test code = TALA Shultz [facility] 1538) [id number] GENTAMICIN LEVEL, [id number] 05:51:00 Test Item Value Reference Range Interpretation Comments GENTAMICIN TROUGH ([facility] (test 1.9 ug/mL 0.5-1.0 H code = 398) Dosing Target Level (mcg/mL)1-1.5 mg/kg q 8-12 HR 0.5-1.03-7 mg/kg q 24 HR <0.5BASIC METABOLIC [id number] 05:47:00 Test Item Value Reference Range Interpretation [...] 0-0 (BEAKER) (test code = 413) POCT-GLUCOSE [id number] 21:47:00 Test Item Value Reference Range Interpretation Comments POC-GLUCOSE METER 220 mg/dL 70-110 H TESTED AT [place] [address] (BEAKER) (test code = TALA Shultz [facility] 1538) [address] POCT-GLUCOSE [id number] 17:06:00 Test Item Value Reference Range Interpretation Comments POC-GLUCOSE METER 211 mg/dL 70-110 H TESTED AT [place] [address] (BEAKER) (test code = TALA Shultz [facility] 1538) [address]207 POCT-GLUCOSE [id number] 11:44:00 Test Item Value Reference Range Interpretation Comments POC-GLUCOSE METER 225 mg/dL 70-110 H TESTED AT [place] [address] (BEAKER) (test code = [facility] [employer] [facility] 1538) [address] POCT-GLUCOSE [id number] 08:29:00 Test Item Value Reference Range Interpretation Comments POC-GLUCOSE METER 201 mg/dL 70-110 H TESTED AT [place] [address] (BEAKER) (test code = [facility] [employer] [facility] 1538) [address] BASIC METABOLIC [id number] 06:04:00 Test Item Value Reference Range Interpretation [...] 0-0 (BEAKER) (test code = 413) POCT-GLUCOSE [id number] 21:39:00 Test Item Value Reference Range Interpretation Comments POC-GLUCOSE METER 275 mg/dL 70-110 H TESTED AT [facility] 6720 ([facility] (test code = TALA [place] 1538) [address] BASIC METABOLIC [id number] 19:42:00 Test Item Value Reference Range Interpretation [...] I S NOT APPLICABLE FOR DIALYSIS PATIEN PACUCBC (HEMOGRAM ONLY)2018-05-13 19:06:00 Test Item Value [...] RED CELL DISTRIBUTION WIDTH 13.0 % 11.6-14.4 (BEAKER) (test code = 412) PLATELET COUNT (BEAKER) (test 209 K/CU MM 150-450 code = 756) MEAN PLATELET VOLUME (BEAKER) 10.3 fL 9.4-12.4 (test code = 754) NUCLEATED RED BLOOD CELLS 0 /100 WBC 0-0 (BEAKER) (test code = 413) POCT-GLUCOSE [id number] 18:50:00 Test Item Value Reference Range Interpretation Comments POC-GLUCOSE METER 197 mg/dL 70-110 H TESTED AT [facility] 67[address] ([facility]) (test code = TALA VINCENT 1538) [address] VANCOMYCIN LEVEL, [id number] 12:29:00 Test Item Value Reference Range Interpretation Comments VANCOMYCIN TROUGH (BEAKER) (test 20.9 ug/mL 10.0-20.0 H code = 522) Please draw trough at 1330 (30 minutes prior to scheduled vancomycin dose at 1400).POCT-GLUCOSE [id number] 07:17:00 Test Item Value Reference Range Interpretation Comments POC-GLUCOSE METER 148 mg/dL 70-110 H TESTED AT [facility] 6720 (BEAKER) (test code = TALA Shultz [place] 1538) [address] POCT-GLUCOSE [id number] 06:09:00 Test Item Value Reference Range Interpretation Comments POC-GLUCOSE METER 149 mg/dL 70-110 H TESTED AT [facility] 6720 (BEAKER) (test code = TALA Shultz [place] 1538) [address] BASIC METABOLIC [id number] 06:04:00 Test Item Value Reference Range Interpretation Comments SODIUM (BEAKER) 140 meq/L 136-145 (test code = 381) [...] 0-0 (BEAKER) (test code = 413) POCT-GLUCOSE [id number] 21:17:00 Test Item Value Reference Range Interpretation Comments POC-GLUCOSE METER 164 mg/dL 70-110 H TESTED AT [place] [address] ([facility]) (test code = TALA MCCRAY [place] 1538) [address] POCT-GLUCOSE [id number] 16:39:00 Test Item Value Reference Range Interpretation Comments POC-GLUCOSE METER 225 mg/dL 70-110 H TESTED AT [place] [address] ([facility]) (test code = TALA MCCR[place] 1538) [address] POCT-GLUCOSE [id number] 12:09:00 Test Item Value Reference Range Interpretation Comments POC-GLUCOSE METER 186 mg/dL 70-110 H TESTED AT [place] [address] ([facility]) (test code = TALA Shultz [facility] 1538) [address] POCT-GLUCOSE [id number] 08:50:00 Test Item Value Reference Range Interpretation Comments POC-GLUCOSE METER 194 mg/dL 70-110 H TESTED AT [place] [address] ([facility]) (test code = TALA Shultz [facility] 1538) [address] BASIC METABOLIC [id number] 06:04:00 Test Item Value Reference Range Interpretation [...] 0-0 (BEAKER) (test code = 413) POCT-GLUCOSE [id number] 00:11:00 Test Item Value Reference Range Interpretation Comments POC-GLUCOSE METER 143 mg/dL 70-110 H TESTED AT [facility] 6720 (BEAKER) (test code = TALA Shultz [facility] 1538) [address] POCT-GLUCOSE [id number] 17:16:00 Test Item Value Reference Range Interpretation Comments POC-GLUCOSE METER 261 mg/dL 70-110 H TESTED AT [facility] 67 (BEAKER) (test code = TALA Shultz [facility] 1538) [address] POCT-GLUCOSE [id number] 10:04:00 Test Item Value Reference Range Interpretation Comments POC-GLUCOSE METER 153 mg/dL 70-110 H TESTED AT [place] [address] ([facility]) (test code = TALA Shultz [facility] 1538) [address] BASIC METABOLIC [id number] 17:28:00 Test Item Value Reference Range Interpretation [...] S NOT APPLICABLE FOR DIALYSIS PATIEN TS. [id number] 17:26:00 Test Item Value Reference Range Interpretation Comments PARTIAL THROMBOPLASTIN TIME 28.7 seconds 22.5-36.0 (BEAKER) (test code = 760) PROTHROMBIN TIME/[id number] 17:25:00 Test Item Value Reference Range Interpretation [...] (test code = 2801) RAD, CHEST, 2 [id number] 16:06:00Reason for exam:->screening prior to anesthesiaFINAL REPORT [...] MDReport Verified Date/Time: 04/30/2018 16:06:13 Reading Location: [address] Radiology Reading Room CHEM [id number] 08:35:002.2[facility] PcskzfwIBGPJNYNGCUC9310-00-58 08:35:0012.7[facility] MeeyvpxXFQYPXEWZLHC2962-57-96 08:35:0028[facility] [place] JLDKRSTOPZCR2458-81-80 08:35:007.7[facility] WqdgefhOAAFHEXTWFAG8332-73-33 08:35:0012[facility] ExnvcjfQNZFVFPGFVTK7203-75-17 08:35:84915Xzahuwab [place] MHZCRSYUGKZJ9918-60-78 08:35:65928Bvasvgsw FrmjpnbHGSNLBFCTPOD9734-04-57 08:35:003.7[facility] UfztfpsCGKHNGXJAOUM1252-75-12 08:35:0085[facility] DIXBLPWVFVTL0665-44-84 08:35:61983Iairlzyt VqbxjkrOSFGUOFNBLLL7935-08-68 08:35:000.81[facility] ZpagumeZDRNLQLZWU9233-89-44 08:35:008.2[facility] SQTZUPNOIJ1863-82-04 08:35:51596Jmukftif IupgmirCNEAYOOMAR5165-97-48 08:35:00 14.0[facility] PiwlfojMEXXMRPDKF9741-57-77 08:35:009.7[facility]annHEMATOLOGY 2018-01-02 08:35:003.93[facility] GpyirvyMOJSYSIRZD7652-53-68 08:35:0012.0[facility] RthuuqkBPEYHZLGRD0124-32-44 08:35:0035.4[facility] WhrxyujAWJHEDQJSH3031-38-77 08:35:0090.1[facility] VhafiwzPFKBWVOWUM4120-85-30 08:35:00 Test Item Value Reference Range Interpretation Comments MCH (test code = MCH) 30.6 pg 27.0-31.0 [facility] SckjunoRIGWZHCPAE3135-45-36 08:35:0034.0[facility]annHEMATOLOGY 2018-01-02 08:35:000.1[facility] AskwghoEKDTQASECG9723-83-23 08:35:0066.9[facility] EwloskaXAHSFDKOZP5052-76-99 08:35:004.7[facility] BpduzdyDMGRXKOCVL6568-13-56 08:35:001.1[facility] SmypmztOVRROGDHQH2989-60-39 08:35:0019.1[facility] [place] NZLVYBOLVL2567-78-13 08:35:008.2[facility] ZqixgcnSFWOCAMHAS1162-03-26 08:35:006.5 [facility] TfagxduDASYTFULKQ7013-17-50 08:35:000.5[facility]annHEMATOLOGY 2018-01-02 08:35:000.8[facility] FlscbooSEYWOQMTLJ3066-82-66 08:35:001.9[facility] HermannCARDIAC FSCCYHZ8165-19-54 05:05:84244Kzamtoma HermannCHEM TATQK9765-88-87 05:05:001.4[facility] EcyawjnNYXEWGPHAYMW1074-82-06 05:05:0010.5[facility] [place] BVMBKMNHFZMR9684-40-56 05:05:0033[facility] GgztsqaWYRZKNRMQWKY2315-84-45 05:05:00 8.2[facility] DgrpoyvEIKCNKNUXJRR1047-79-08 05:05:003.5[facility] [place] PFWIQXYEMNWP4158-78-75 05:05:77862Wzowtpwa UseuydvNBSQYJBJBSJF5885-46-75 05:05:63552Wpittgsf CchuyakVAILGCJVHEHU1820-49-77 05:05:0018[facility] [place] HNNGGMINFGEV9580-19-57 05:05:11639Hggoimte XoausxrADVXLEIIUVOS8099-29-07 05:05:0080[facility] DiishryIGEPSUCBCLWS7192-67-53 05:05:000.92[facility] QMMGGIQQRE4382-10-60 05:05:006.9[facility] HztnunhSTLYXNVUHS4157-96-97 05:05:001.9 [facility] VycvukqMGIJMOVDGA5834-29-34 05:05:000.8[facility]annHEMATOLOGY 2018-01-01 05:05:000.1[facility] KmblvoxWCSRYOZNPY2794-26-77 05:05:000.6[facility] PpjnpsdJRZOIKEUGG2966-34-61 05:05:0066.9[facility] KtnlrjtIKSLJKCSUL5920-50-24 05:05:000.9[facility] WsegafpYYDZWSINVZ3781-74-00 05:05:005.6[facility] [place] CRRXEGTOON8017-31-11 05:05:007.8[facility] ZdziiyiNRHKNPUZCW4977-58-95 05:05:00 18.8[facility] PamiykkVINTXBRHWZ5637-66-53 05:05:0014.3[facility]annHEMATOLOGY 2018-01-01 05:05:50106Rcyuaalz FwokdzbZLWEHGYXEW7583-04-36 05:05:008.2[facility] IyuyvneASHTSALHTI4572-48-12 05:05:0010.3[facility] ZnrrrxkMRAYFAJBUV7164-37-57 05:05:0033.9[facility] EymqxsnVIIZUHBWPY8471-53-30 05:05:004.35[facility] [place] LJAHAWTPFV6557-91-51 05:05:0013.3[facility] YywlgdpXUNEAQFBYH6523-06-69 05:05:00 39.3[facility] BlukrqlVMBKQCTHEA2332-99-98 05:05:0090.5[facility] HermannHEMATOLOGY 2018-01-01 05:05:00 Test Item Value Reference Range Interpretation Comments MCH (test code = MCH) 30.6 pg 27.0-31.0 [facility]ann[facility] AND KPXLR3457-23-03 04:41:17923Cuhifvpo HermannURINE AND BUDZM7887-47-38 04:41:0085[facility] AND WWNXE5885-20-15 04:41:00 Moderate *ABN*(12/31/17 11:41 PM)[facility] FRSUH8170-73-00 04:41:004.0[facility] AND YISXM6568-74-00 04:41:00 Test Item Value Reference Range Interpretation Comments UA pH (test code = UA pH) 7.0 1 5.0-8.0 [facility] BTMSV6405-08-99 04:41:00Moderate *ABN*(12/31/17 11:41 PM)[facility] FWEEB5829-06-55 04:41:0072[facility] SONFH5066-62-83 04:41:00Negative *NA*(12/31/17 11:41 PM)[facility] JDMOQ7234-50-82 04:41:00Negative (12/31/17 11:41 PM)[facility] KDQSO9693-83-42 04:41:00Slight *ABN*(12/31/17 11:41 PM)[facility] CVUVF1388-97-44 04:41:00 Test Item Value Reference Range Interpretation Comments UA Spec Grav (test code = UA Spec 1.018 1 Grav) [facility] UQEYJ0835-15-99 04:41:00Dark Yellow *NA*(12/31/17 11:41 PM)[facility] AaedtcaLKHVGMCPXIUZ8839-11-87 15:30:004.3[facility] [place] ZNOHJQWJCSEK2287-31-85 15:30:39292Cwgopspd UahgebeATPODVNDWUAP4252-11-94 15:30:0028[facility] MqstrhoOMZKRATWVKVQ5300-24-88 15:30:009.8[facility] IKUKAORVKFZL3147-99-53 15:30:81967Mkiluhyc EwdlgzyYHOHLZDUISVZ6982-83-36 15:30:26221Hamsixgz CgbyzrbPHZYWFQUONLM0804-65-48 15:30:0017[facility] [place] YNSQDYDWKYWK4597-93-64 15:30:0063[facility] NeyctriDKTNWAXKORFK7596-94-57 15:30:00 1.12[facility] BjfxozqJLPSBGWZOSET7583-28-52 15:30:0012.3[facility] KGRUECYZOJ7407-94-64 15:30:0043.7[facility] HeuhnbcOGMZSOAQDS6843-20-37 15:30:00 14.7[facility] [place]
--- NOTE | 2020-08-08 20:01 | RAD REPORT ---
EXAM DESCRIPTION: CT - Head Brain Wo Cont - 08/08/2020 7:41 pm CLINICAL HISTORY: Alteration of awareness/confusion COMPARISON: May 2020 TECHNIQUE: Computed axial tomography of the head was obtained. IV contrast was not requested. All CT scans are performed using dose optimization technique as appropriate and may include automated exposure control or mA/KV adjustment according to patient size. FINDINGS: An intracranial bleed is not seen . The ventricles are normal in caliber. No extra-axial fluid collection is noted. 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 Coarse vascular ca lcifications. Mioderate low-density areas within periventricular, deep and subcortical white matter likely represen t ischemic changes secondary to small vessel disease. Fluid within the sinuses/ mastoids is not seen. IMPRESSION: No acute intracranial abnormality is seen. If patient's symptoms persist MRI of the bra in would be recommended.
--- NOTE | 2020-08-08 20:04 | RAD REPORT ---
EXAM DESCRIPTION: [place] Single View08/08/2020 7:55 pm CLINICAL HISTORY: Congestion COMPARISON: June 2020 FINDINGS: The lungs appear clear of acute infiltrate. The heart is moderately enlarged. Postsurgical changes involve the chest Upper lobe vessels are prominent indicative of pulmonary venous hypertension
--- NOTE | 2020-08-08 20:05 | RAD REPORT ---
EXAM DESCRIPTION: RAD - Knee Left 3 View - 08/08/2020 7:55 pm CLINICAL HISTORY: Left knee pain FINDINGS: No fracture or dislocation is seen. 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
[2020-08-08] MEDS ORDERED: CEFTRIAXONE/SWI 1gm 1 GM/10 ML SYR ONE (21:24)
[2020-08-08] MEDS ORDERED: NA CHLORIDE 0.9% 1,000 ML ONE (21:24)
[2020-08-08 21:27] LABS: Lymphocytes % 17.5 % (15.3-44.8); MPV 9.1 fL (7.6-11.3); RBC Red Blood Cell Count 4.15 M/uL (4.33-5.43)
[2020-08-08 21:35] LABS: Protime INR 1.68
[2020-08-08 21:42] LABS: Urine Bacteria <20 /HPF (NONE SEEN); Urine RBC <5 /HPF (NONE SEEN)
[2020-08-08 21:43] LABS: Urine Blood NEGATIVE (NEG); Urine Glucose 1+ (NEG); Urine Protein 1+ (NEG); Urine Specific Gravity 1.025 (1.005-1.030)
[2020-08-08 21:46] LABS: Albumin 3.9 g/dL (3.4-5.0); Bilirubin Direct 0.4 mg/dL (0-0.2); Bilirubin Total 1.8 mg/dL (0.2-1.0); CKMB Creatine Kinase MB 1.4 ng/mL (0.3-3.6); Magnesium 1.7 mg/dL (1.8-2.4); Potassium 4.2 mmol/L (3.5-5.1); Protein, Total 7.6 g/dL (6.4-8.2); Troponin (Emerg Dept Use Only) 0.04 ng/mL (0.0-0.045)
[2020-08-08] MEDS ORDERED: MAGNESIUM SULFATE 1 gm IVPB 1 GM/100 ML BAG IV ONE (22:43)
--- NOTE | 2020-08-08 22:57 | EDPHYS ---
Physician Documentation [facility] Name: Abisai Salinas Age: 80 yrs Sex: Male : 1940 Arrival Date: 08/08/2020 Time: 18:53 Bed 18 Private MD: ED Physician Greg Christine HPI: 08/08 20:30 This 80 yrs old Male presents to ER via EMS with complaints of weakness. ma2 20:30 has hx of recurrent uti, has been feeling weak and sleepy all day, he thinks it is ma2 another uti, also he fell on left knee has left knee pain, able to walk, he does has halucination at basline since he had a stroke . Onset: The symptoms/episode began/occurred gradually, 2 day(s) ago. Severity of symptoms: At their worst the symptoms were mild in the emergency department the symptoms are unchanged. The patient has experienced similar episodes in the past. - Immunization history:: Adult Immunizations up to date. - Social history:: Smoking status: Patient denies any tobacco usage or history of. ROS: 20:31 Constitutional: Negative for fever, chills, and weight loss. ma2 20:31 All other systems are negative. Exam: 20:31 Constitutional: This is a well developed, well nourished patient who is awake, alert, ma2 and in no acute distress. Head/Face: Normocephalic, atraumatic. Eyes: Pupils equal round and reactive to light, extra-ocular motions intact. Lids and lashes normal. Conjunctiva and sclera are non-icteric and not injected. Cornea within normal limits. Periorbital areas with no swelling, redness, or edema. ENT: Nares patent. No nasal discharge, no septal abnormalities noted. Tympanic membranes are normal and external auditory canals are clear. Oropharynx with no redness, swelling, or masses, exudates, or evidence of obstruction, uvula midline. Mucous membranes moist. Neck: Trachea midline, no thyromegaly or masses palpated, and no cervical lymphadenopathy. Supple, full range of motion without nuchal rigidity, or vertebral point tenderness. No Meningismus. Chest/axilla: Normal chest wall appearance and motion. Nontender with no deformity. No lesions are appreciated. Cardiovascular: Regular rate and rhythm with a normal S1 and S2. No gallops, murmurs, or rubs. Normal PMI, no JVD. No pulse deficits. Respiratory: Lungs have equal breath sounds bilaterally, clear to auscultation and percussion. No rales, rhonchi or wheezes noted. No increased work of breathing, no retractions or nasal flaring. Abdomen/GI: Soft, non-tender, with normal bowel sounds. No distension or tympany. No guarding or rebound. No evidence of tenderness throughout. Back: No spinal tenderness. No costovertebral tenderness. Full range of motion. Skin: Warm, dry with normal turgor. Normal color with no rashes, no lesions, and no evidence of cellulitis. MS/ Extremity: left knee exam is wnl, no effusion or warmth no ttp, Pulses equal, no cyanosis. Neurovascular intact. Full, normal range of motion. Neuro: Awake and alert, GCS 15, oriented to person, place, time, and situation. Cranial nerves II-XII grossly intact. Motor strength 5/5 in all extremities. Sensory grossly intact. Cerebellar exam normal. Normal gait. Psych: Awake, alert, with orientation to person, place and time. Behavior, mood, and affect are within normal limits. Vital Signs: 18:54 BP 159 / 80; Pulse 60; Resp 18; Temp 97.8; Pulse Ox 97% ; bp 20:15 BP 149 / 69; Pulse 60; Resp 20; Pulse Ox 97% on R/A; aj1 21:00 BP 142 / 81; Pulse 63; Resp 20; Pulse Ox 97% on R/A; aj1 22:00 BP 174 / 90; Pulse 59; Resp 18; Pulse Ox 100% on R/A; aj1 23:00 BP 173 / 66; Pulse 68; Resp 18; Pulse Ox 98% on R/A; aj1 12 00:00 BP 157 / 62; Pulse 62; Resp 18; Pulse Ox 96% on R/A; aj1 MDM: 08/08 19:02 Patient medically screened. [facility] 20:31 Differential Diagnosis uti vs hypomagnesemia vs dehydration vs pneumonia . [facility] 22:55 Data reviewed: vital signs, nurses notes. Counseling: I had a detailed discussion with ma2 the patient and/or guardian regarding: the historical points, exam findings, and any diagnostic results supporting the discharge/admit diagnosis, the presence of at least one elevated blood pressure reading (>120/80) during this emergency department visit, the need for outpatient follow up. Response to treatment: the patient's symptoms have markedly improved after treatment. 22:59 ED course: has mag tablet at home . tn08/08 19:24 Order name: Amylase, Serum; Complete Time: 21:56 [facility] 08/08 19:24 Order name: Basic Metabolic Panel; Complete Time: 21:56 [facility] 08/08 19:24 Order name: Blood Culture Adult (2) 08/08 19:24 Order name: CBC with Diff; Complete Time: 21:43 tn08/08 19:24 Order name: Ckmb; Complete Time: 21:56 [facility] 08/08 19:24 Order name: CPK; Complete Time: 21:56 tn08/08 19:24 Order name: Lactate; Complete Time: 21:56 tn08/08 19:24 Order name: LFT's; Complete Time: 21:56 tn08/08 19:24 Order name: Lipase; Complete Time: 21:56 08/08 19:24 Order name: Procalcitonin tn08/08 19:24 Order name: Protime (+inr); Complete Time: 21:43 08/08 19:24 Order name: Ptt, Activated; Complete Time: 21:43 08/08 19:24 Order name: Troponin (emerg Dept Use Only); Complete Time: 21:56 tn08/08 19:24 Order name: Urine Microscopic Only; Complete Time: 21:46 08/08 19:24 Order name: Chest Single View XRAY; Complete Time: 20:14 08/08 19:24 Order name: Cardiac monitoring; Complete Time: 20:34 08/08 19:24 Order name: EKG - Nurse/Tech; Complete Time: 20:34 08/08 19:24 Order name: IV Saline Lock - Large Bore; Complete Time: 21:21 08/08 19:24 Order name: Labs collected and sent; Complete Time: 21:21 tn08/08 19:24 Order name: O2 Per Protocol; Complete Time: 20:34 08/08 19:24 Order name: O2 Sat Monitoring; Complete Time: 20:34 08/08 19:24 Order name: Urine Dipstick-Ancillary (obtain specimen); Complete Time: 21:11 [facility] 08/08 19:24 Order name: CT Head Brain wo Cont; Complete Time: 20:14 [facility] 08/08 19:24 Order name: Knee Left 3 View XRAY; Complete Time: 20:14 [facility] 08/08 19:24 Order name: Magnesium; Complete Time: 21:56 [facility] 08/08 21:16 Order name: Urine Dipstick--Ancillary (enter results); Complete Time: 21:46 mw2 Administered Medications: 21:39 Drug: NS 0.9% 1000 ml Route: IV; Rate: 1 bolus; Site: right antecubital; [facility] 08/09 00:19 Follow up: IV Status: Completed infusion; IV Intake: 1000ml [facility] 08/08 21:39 Drug: Rocephin 1 grams Route: IV; Rate: calculated rate; Site: right antecubital; [facility] 08/09 00:20 Follow up: IV Status: Completed infusion; IV Intake: 10ml [facility] 08/08 22:34 Drug: Magnesium Sulfate 1 grams Route: IVPB; Infused Over: 1 hrs; Site: right [facility]; 08/09 00:20 Follow up: IV Status: Completed infusion; IV Intake: 100ml [facility] Disposition: 08/08/20 22:56 Discharged to Home. Impression: Hypomagnesemia. - Condition is Stable. - Discharge Instructions: Hypomagnesemia. - Medication Reconciliation Form, Thank You Letter, Antibiotic Education, Prescription Opioid Use form. - Follow up: Private Physician; When: Tomorrow; Reason: Continuance of care. Signatures: Dispatcher [employer] Felisa Ng RN RN aj1 Yakov Garcia RN RN bp Greg Christine MD MD ma2 Corrections: (The following items were deleted from the chart) 00:20 08/08 22:56 08/08/2020 22:56 Discharged to Home. Impression: Hypomagnesemia. Condition aj1 is Stable. Prescriptions for Cipro 500 mg Oral Tablet - take 1 tablet by ORAL route every 12 hours for 7 days; 14 tablet. and Forms are Medication Reconciliation Form, Thank You Letter, Antibiotic Education, Prescription Opioid Use. Follow up: Private Physician; When: Tomorrow; Reason: Continuance of care. ma2
--- NOTE | 2020-08-08 22:57 | ER ---
Nurse's Notes [facility] Name: Abisai Salinas Age: 80 yrs Sex: Male : 1940 Arrival Date: 08/08/2020 Time: 18:53 Bed 18 Private MD: Diagnosis: Hypomagnesemia Presentation: 08/08 18:54 Chief complaint: EMS states: HALLUCINATIONS x2 DAYS. Coronavirus screen: At this time, bp the client does not indicate any symptoms associated with coronavirus-19. Ebola Screen: No symptoms or risks identified at this time. Initial Sepsis Screen: Does the patient meet any 2 criteria? Altered Mental Status. No. Patient's initial sepsis screen is negative. Does the patient have a suspected source of infection? No. Patient's initial sepsis screen is negative. Risk Assessment: Do you want to hurt yourself or someone else? Patient reports no desire to harm self or others. Onset of symptoms is unknown. Care prior to arrival: Glucose check: 155. 18:54 Method Of Arrival: EMS: [facility] bp 18:54 Acuity: BIB 2 bp Triage Assessment: 18:56 General: Appears in no apparent distress. uncomfortable, Behavior is cooperative, bp appropriate for age, anxious. Pain: Complains of pain in left knee. EENT: No deficits noted. Neuro: Reports HALLUCINATIONS. Cardiovascular: Rhythm is sinus rhythm. Respiratory: No deficits noted. GI: No signs and/or symptoms were reported involving the gastrointestinal system. : No signs and/or symptoms were reported regarding the genitourinary system. Derm: No deficits noted. Musculoskeletal: Reports pain in left knee. - Immunization history:: Adult Immunizations up to date. - Social history:: Smoking status: Patient denies any tobacco usage or history of. Screenin:15 Abuse screen: Denies threats or abuse. Denies injuries from another. Nutritional aj1 screening: No deficits noted. Tuberculosis screening: No symptoms or risk factors identified. 08/09 00:18 Fall Risk Fall in past 12 months (25 points). Secondary diagnosis (15 points) impaired aj1 mobility, No IV (0 pts). Ambulatory Aid- None/Bed Rest/Nurse Assist (0 pts). Gait- Weak (10 pts.). Mental Status- Oriented to own ability (0 pts). Total Lombardi Fall Scale indicates High Risk Score (45 or more points). As available patient and family educated on Fall Prevention Program and Strategies. Assessment: 08/08 19:15 General: Appears in no apparent distress. uncomfortable, Behavior is calm, cooperative, aj1 appropriate for age. Pain: Complains of pain in left knee Pain does not radiate. Pain currently is 5 out of 10 on a pain scale. Quality of pain is described as aching. 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 Speech is slurred, from previous CVA per patient's . Cardiovascular: Denies chest pain, palpitations, shortness of breath, Heart tones S1 S2 present Patient's skin is warm and dry. Respiratory: Airway is patent Respiratory effort is even, unlabored, Respiratory pattern is regular, symmetrical, Breath sounds are clear bilaterally. GI: No signs and/or symptoms were reported involving the gastrointestinal system. : No signs and/or symptoms were reported regarding the genitourinary system. EENT: No signs and/or symptoms were reported regarding the EENT system. Derm: No signs and/or symptoms reported regarding the dermatologic system. Skin is pink, warm \T\ dry. normal. Musculoskeletal: Swelling present in left knee. 19:39 Reassessment: Patient transported to CT via stretcher. aj1 20:15 Reassessment: Patient appears in no apparent distress at this time. No changes from aj1 previously documented assessment. Patient and/or family updated on plan of care and expected duration. Pain level reassessed. Patient is alert, oriented x 3, equal unlabored respirations, skin warm/dry/pink. 21:00 Reassessment: Patient appears in no apparent distress at this time. No changes from aj1 previously documented assessment. Patient and/or family updated on plan of care and expected duration. Pain level reassessed. Patient is alert, oriented x 3, equal unlabored respirations, skin warm/dry/pink. 22:00 Reassessment: Patient and/or family updated on plan of care and expected duration. Pain aj1 level reassessed. General: Appears in no apparent distress. comfortable, Behavior is calm, cooperative, appropriate for age. Neuro: Level of Consciousness is awake, alert, obeys commands, Oriented to person, place, time, situation. Cardiovascular: Patient's skin is warm and dry. Respiratory: Airway is patent Respiratory effort is even, unlabored, Respiratory pattern is regular, symmetrical. Derm: Skin is pink, warm \T\ dry. normal. 23:00 Reassessment: Patient appears in no apparent distress at this time. No changes from [facility] previously documented assessment. Patient and/or family updated on plan of care and expected duration. Pain level reassessed. Patient is alert, oriented x 3, equal unlabored respirations, skin warm/dry/pink. 08/09 00:17 Reassessment: Patient appears in no apparent distress at this time. No changes from aj1 previously documented assessment. Patient and/or family updated on plan of care and expected duration. Pain level reassessed. Patient is alert, oriented x 3, equal unlabored respirations, skin warm/dry/pink. Vital Signs: 08/08 18:54 BP 159 / 80; Pulse 60; Resp 18; Temp 97.8; Pulse Ox 97% ; bp 20:15 BP 149 / 69; Pulse 60; Resp 20; Pulse Ox 97% on R/A; aj1 21:00 BP 142 / 81; Pulse 63; Resp 20; Pulse Ox 97% on R/A; aj1 22:00 BP 174 / 90; Pulse 59; Resp 18; Pulse Ox 100% on R/A; aj1 23:00 BP 173 / 66; Pulse 68; Resp 18; Pulse Ox 98% on R/A; aj1 08/09 00:00 BP 157 / 62; Pulse 62; Resp 18; Pulse Ox 96% on R/A; aj1 ED Course: 08/08 18:53 Patient arrived in ED. bp 18:55 Triage completed. bp 18:55 Arm band placed on. bp 19:01 Greg Christine MD is Attending Physician. ma2 19:15 Patient has correct armband on for positive identification. Bed in low position. Call [facility] light in reach. lunchroom monitor on. Pulse ox on. NIBP on. 19:15 No provider procedures requiring assistance completed. aj1 19:24 Felisa Cook, MICHI is Primary Nurse. aj1 19:41 CT Head Brain wo Cont In Process Unspecified. EDMS 19:55 Chest Single View XRAY In Process Unspecified. EDMS 19:55 Knee Left 3 View XRAY In Process Unspecified. EDMS 20:50 Patient maintains SpO2 saturation greater than 95% on room air. jp3 20:50 Missed attempt(s): 20 gauge in right Bleeding controlled, band aid applied, catheter jp3 tip intact. 20:55 Urine collected: clean catch specimen, clear, nikolas colored. jp3 21:00 First set of blood cultures drawn by me. Inserted saline lock: 22 gauge in right 3 antecubital area, using aseptic technique. Blood collected. 21:15 Initial lab(s) drawn, by me, sent to lab. Second set of blood cultures drawn by me. jp3 08/09 00:18 IV discontinued, intact, bleeding controlled, No redness/swelling at site. Pressure aj1 dressing applied. Administered Medications: 08/08 21:39 Drug: NS 0.9% 1000 ml Route: IV; Rate: 1 bolus; Site: right antecubital; aj1 08/09 00:19 Follow up: IV Status: Completed infusion; IV Intake: 1000ml aj1 08/08 21:39 Drug: Rocephin 1 grams Route: IV; Rate: calculated rate; Site: right antecubital; aj1 08/09 00:20 Follow up: IV Status: Completed infusion; IV Intake: 10ml aj1 08/08 22:34 Drug: Magnesium Sulfate 1 grams Route: IVPB; Infused Over: 1 hrs; Site: right [facility] antecubital; 08/09 00:20 Follow up: IV Status: Completed infusion; IV Intake: 100ml aj1 Intake: 00:19 IV: 1000ml; Total: 1000ml. aj1 00:20 IV: 10ml; Total: 1010ml. aj1 00:20 IV: 100ml; Total: 1110ml. aj1 Outcome: 08/08 22:56 Discharge ordered by . [email or web address] 08/09 00:18 Discharged to home via wheelchair, with family. aj1 Condition: good Discharge instructions given to patient, family, Instructed on discharge instructions, follow up and referral plans. Demonstrated understanding of instructions, follow-up care. 00:20 Patient left the ED. aj1 Signatures: Dispatcher [employer] EDMS Felisa Cook RN RN aj1 Yakov Garcia RN RN bp Alzahri, Mohammad, MD MD ma2 [place] Lock jp3
[2020-08-09 00:41] VITALS: TEMP 97.8
[2020-08-09 00:50] VITALS: BP 157/62; O2SAT 96
--- NOTE | 2020-08-10 06:10 | EKG ---
Test Date: 2020-08-08 Test Time: 20:29:30 Quoter: MIE MEASUREMENT RESULTS: Intervals: Rate: 68 WI: QRSD: 102 QT: 444 QTc: 472 [place]: P: WI: QRS: 40 T: 115 INTERPRETIVE STATEMENTS: Atrial fibrillation Nonspecific ST and T wave abnormality, probably digitalis effect Prolonged QT Abnormal ECG Compared to ECG 07/06/2020 15:09:10 Prolonged QT interval now present Possible ischemia no longer present ST (T wave) deviation still present Electronically Signed On 08-10-20 06:09:08 VACATION PLANNER by Vernon Oleary
== END 2020-08-09 00:20 | disposition home or self-care (01) ==
LOC: ER 18:52
DX: E83.42 Hypomagnesemia (principal); M25.562 Pain in left knee
CPT/HCPCS: 93005; 87040 ×2; 85025; 80048; 36415; 82150; 83735; 82550; 85610; 80076; 83605; 85730; 84484; 82553; 83690; 84145; 70450; 71045; 73562; J3475; J0696; J7030; 81003; 81015; 96365; 96366; 99285

== ENCOUNTER 2020-08-11 13:06 | Inpatient (IN) | payer MEDICARE ==
--- OUTSIDE RECORDS SUMMARY | 2020-08-11 13:14 | XMS REPORT | Clinical Summary ---
:1940 Author Organization [facility] Address [address] [place] [address] Care Team Providers Name Role Phone Pcp [...] PNEUMOCOCCAL 65+ YRS (1 of 1 - [id number]) 2004 MEDICARE ANNUAL WELLNESS (YEAR 2 or FIRST YEAR if no 07/11/2005 IPPE) INFLUENZA VACCINE (#1) 2020 Results Not on fileafter 08/11/2019 Insurance Payer Benefit Plan / Subscriber ID Effective Dates Phone Addre ss Type Group MEDICARE MEDICARE A B [id number] 2004-Presen Medicare t [facility] [id number] 2017-Present Medigap SUPPLEMENT/[facility] Advance Directives For more information, please contact: [phone] Type Date Recorded Patient Maintenance Tech Explanati on Advance Directives and Living 04/30/2018 12:00 AM Will Code Status Date Activated Date Inactivated Comments Full Code 05/13/2018 7:01 PM 05/16/2018 4:03 PM This code status was determined by: Patient
--- OUTSIDE RECORDS SUMMARY | 2020-08-11 13:14 | XMS REPORT | Continuity of Care Document ---
:1940 Author Organization [facility] Information [place] Care Team Providers Name Role Phone [facility] Information Exchange Unavailable Un available Problems Problem Status Onset Classification Date Comments Sourc e Date Reported DJD LUMBAR PAIN Active 10/22/19 Ryan rial 19 [place] AMS, UTI, KIDNEY Active 01/01/20 INJURY 18 [facility] INJURY OF URETER Active 01/01/[address] [id number] Active 12/04/19 BILATERAL UMBILICAL 18 [facility] Chest pain (finding) Active 10/30/19 Problem 02/27/2020 Data Medical 13 migrated Group, from [facility] on 02/05/15. [facility] [place] Carotid Active Problem 02/27/2020 Medica l atherosclerosis Grou p, (disorder) [facility] [place] Coronary Active Problem 02/27/2020 Data Medica l arteriosclerosis migrated Josse up, (disorder) from [facility] on 02/05/15. [facility] [place] Diabetes mellitus Active Problem 02/27/2020 M H Medical (disorder) Group,[facility] [place] Hyperlipidemia Active Problem 02/27/2020 M edical (disorder) Group,[facility] [place] Hypertensive Active Problem 02/27/2020 Data Med ical disorder, systemic migrated G roup, arterial (disorder) from [facility] on 02/05/15. 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 Medical regurgitation Group, (disorder) [facility] Kwasi Femoral hernia Active Problem 02/27/2020 [facility] edical (disorder) Group,[facility] [place] Gastroesophageal Active Problem 02/27/2020 Medical reflux disease with Group, esophagitis [facility] (disorder) [facility] [place] Glaucoma (disorder) Active Problem 02/27/2020 Medical Group,[facility] [place] Umbilical hernia Active Problem 02/27/2020 Medical (disorder) Group,[facility] Kwasi Unspecified injury 01/05/2018 MH of ureter, initial M [facility] ALTERED MENTAL Active MH STATUS, UNSPECIFIED [facility] UNSPECIFIED INJURY Active M H OF URETER, INITIAL M [facility] AMS/ UTI/ DIRECT Active MH ADMIT [facility] Medications Medication Details Route Status Patient [...] al [Eliquis] tab, 3 Group Refill(s), Pharmacy: [facility] [id number] lisinopril 5 mg 5 mg = 1 [...] # 14 tab, 0 Group Refill(s), Pharmacy: [facility] [id number] Cricket Notes: Same as: Inactive Eliquis 2017 [facility] Acetaminophen 1 tab, PO, Q6H, Active 300 MG / Codeine PRN Pain, X 5 2018 [facility] Phosphate 30 MG day, # 20 tab, 0 [facility] Oral Tablet Refill(s) [Tylenol with Codeine #3] Hydrocortisone 5 1 appl, TOP, Active MG/ML Topical BID, PRN Rash, 0 2018 [facility] Cream Refill(s) [facility] Cephalexin 500 500 mg = 1 cap, Active H MG Oral Capsule PO, TID, X 7 2018 Mem orial [Keflex] day, # 21 cap, 0 [facility] Refill(s) Hydrocortisone 5 1 appl, Route: Inactive MG/ML Topical TOP, BID, Drug 2018 Mem orial Cream form: CRM, PRN [facility] Rash, Start date: 01/02/18 10:55:00 CDT, Duration: 30 day, Stop date: 02/01/18 10:54:00 CDT Brimonidine 1 drp, Route: Inactive tartrate 2 MG/ML BOTH EYES, Q12H, 2017 [facility] / Timolol 5 Drug form: SOLN, Cit y MG/ML Ophthalmic Start date: Solution 01/01/18 [Combigan] 21:00:00 CDT, Duration: 30 day, Stop date: 01/31/18 9:00:00 CDT timolol Notes: (Same As: No Longer ophthalmic Timoptic, Active 2017 [facility] Betimol) [facility] metoprolol Notes: (Same as: No Longer tartrate Lopressor) Active 2017 [facility] brimonidine Notes: (Same As: No Longer H ophthalmic Alphagan) Active 2017 [facility] latanoprost Notes: Keep No Longer ophthalmic refrigerated. Active 2017 [facility] (Same City as:Xalatan) Opened bottle may be stored at room temperature for 6 weeks Magnesium Notes: WASTE: Inactive Sulfate F/P - Sink; E - 2018 [facility] Bin travoprost 0.04 1 drp, Route: Inactive H MG/ML Ophthalmic BOTH EYES, Drug 2018 [facility] Solution Form: SOLN, Cecilio [Travatan] Dosing Weight 93.295, kg, QPM, Start date: 01/01/18 17:00:00 CDT, Duration: 30 day, Stop date: 01/30/18 17:00:00 CDT Protonix Notes: Tablet No Longer should not be Active 2017 [facility] chewed or [facility] crushed. Docusate Notes: (Same as: No Longer Colace) (Do Not Active 2017 [facility] Crush) [facility] albumin human Notes: LOT#: Inactive 25% intravenous 2017 [place] morial solution Mfg: City ____ WASTE: F/P - Red; E -Red (Same as: Albuminar) "blood product derivative" NS (Bolus) IV 1,000 mL, 1,000 Inactive ml/hr, Infuse 2017 [facility] Over: 1 hr, [facility] Route: IV, 1,000, Drug form: INJ, ONCE, Priority: STAT, Dosing Weight 93.295 kg, Start date: 01/01/18 5:48:00 CDT, Stop date: 01/01/18 5:48:00 CDT Ceftriaxone Notes: (Same As: No Longer Rocephin). Use [facility] 2017 [facility] with 100 mL NS [facility] and infuse over 30 min MEDICATION WASTE Product Size: 1000 mg Product Wasted: ___ mg Insulin Lispro Notes: (Same as: No Longer Humalog ) Roll Active 2017 [facility] in palms of [facility] hands gently; Do not shake `vigorously. "Single [...] Route: IM, No Longer Drug form: Active [address] [place] [address] PDR/INJ, PRN, [facility] Dosing Weight 93.295, kg, PRN Blood Glucose Results, Start date: 12/31/17 23:08:00 CDT, Duration: 30 day, Stop date: 01/30/18 23:07:00 CDT Saline Flush Notes: (Same as: No Longer 0.9% BD Posiflush) Active [address] [place] [address] Ondansetron Notes: (Same as: No Longer H Zofran ODT) Active 2017 [facility] Morphine Notes: (Same No Longer as:MORPhine Active 2017 [facility] Sulfate) [facility] Acetaminophen Notes: Do not No Longer exceed 4 gm/day. Active 2017 [facility] (Same as: [facility] Tylenol) Acetaminophen Notes: (Same as: No Longer 325 MG / Magnolia 325/5) Do Active [facility] Hydro[facility] not exceed [facility] Bitartrate 5 MG 4gm/day of Oral Tablet acetaminophen. Sodium Chloride 1,000 mL, Rate: No Longer 0.9% IV 1,000 mL 75 ml/hr, Infuse Active [address] [place] [address] over: 13.3 hr, [facility] Route: IV, Dosing Weight 93.295 kg, Total Volume: 1,000, Start date: 12/31/17 23:07:00 CDT, Duration: 30 day, Stop date: 01/30/18 23:06:00 CDT, 2.19, m2 glycopyrrolate Route: IV, Drug Inactive (ANES) form: INJ, ONCE, 2017 [facility] Stop date: [facility] 12/23/17 16:01:00 CDT neostigmine Route: IV, Drug Inactive (ANES) form: INJ, ONCE, 2017 [facility] Stop date: [facility] 12/23/17 16:01:00 CDT ondansetron Route: IV, Drug Inactive (ANES) form: INJ, ONCE, 2017 [facility] Stop date: [facility] 12/23/17 15:52:00 CDT Hydralazine 10 mg, Route: Inactive IVP, Q20Min, 2018 [facility] Dosing Weight [facility] 84.091, kg, PRN Elevated BP, Start date: 12/23/17 14:45:00 CDT, Duration: 2 doses or times, Stop date: Limited # of times Ondansetron 4 mg, Route: Inactive IVP, ONCE, 2018 [facility] Dosing Weight [facility] 84.091, kg, PRN Nausea & Vomiting, Start date: 12/23/17 14:45:00 CDT Morphine 2 mg, Route: Inactive IVP, Q5Min, 2018 [facility] Dosing Weight [facility] 84.091, kg, PRN Pain Score 4-6, Start date: 12/23/17 14:45:00 CDT, Duration: 5 doses or times, Stop date: Limited # of times Naloxone 0.4 mg, Route: Inactive IVP, Q2MIN, 2018 [facility] Dosing Weight [facility] 84.091, kg, PRN Narcotic Reversal, Start date: 12/23/17 14:45:00 CDT, Duration: 8 doses or times, Stop date: Limited # of times Flumazenil 0.2 mg, Route: Inactive IVP, PRN, Dosing 2018 [facility] Weight 84.091, City kg, PRN Benzodiazepine Reversal, Initial dose, Start date: 12/23/17 14:45:00 CDT, Duration: 30 day, Stop date: 01/22/18 14:44:00 CDT Hydromorphone 0.5 mg, Route: Inactive IVP, Q5Min, 2018 [facility] Dosing Weight [facility] 84.091, kg, PRN Pain Score 7-10, Start date: 12/23/17 14:45:00 CDT, Duration: 4 doses or times, Stop date: Limited # of times rocuronium Route: IV, Drug Inactive (ANES) form: INJ, ONCE, 2017 [facility] Stop date: [facility] 12/23/17 14:22:00 CDT fentaNYL (ANES) Route: IV, Drug Inactive form: INJ, ONCE, 2017 [facility] Stop date: [facility] 12/23/17 14:17:00 CDT lidocaine (ANES) Route: IV, Drug Inactive form: INJ, ONCE, 2017 [facility] Stop date: [facility] 12/23/17 14:17:00 CDT propofol (ANES) Route: IV, Drug Inactive form: INJ, ONCE, 2017 [facility] Stop date: [facility] 12/23/17 14:17:00 CDT ePHEDrine (ANES) Route: IV, Drug Inactive form: INJ, ONCE, 2017 [facility] Stop date: [facility] 12/23/17 14:02:00 CDT ceFAZolin (ANES) Route: IV, Drug Inactive form: INJ, ONCE, 2017 [facility] Stop date: [facility] 12/23/17 14:02:00 CDT acetaminophen Route: IV, Drug Inactive H (ANES) 10 mg form: INJ, Start 2017 Me morial date: 12/23/17 [facility] 13:24:00 CDT, Stop date: 12/23/17 14:24:00 CDT Lactated Ringers Route: IV, Total Inactive 12/23 Injection IV Volume: 1,000, 2017 Ryan rial (ANES) 1000 mL Start date: [facility] 12/23/17 13:12:00 CDT, Stop date: 12/23/17 14:12:00 CDT Lidocaine 0.5 mL, Route: Inactive Hydrochloride 10 INTRADERM, 2017 Ryan rial MG/ML Injectable Dosing Weight C ity Solution 84.091, kg, ONCALL, Start date: 12/23/17 11:00:00 CDT, Duration: 1 doses or times Sodium Chloride 1,000 mL, Rate: Inactive 0.9% IV 1000 mL 25 ml/hr, Infuse 2018 [facility] over: 40 hr, [facility] Route: IV, Dosing Weight 84.091 kg, [...] Medi [place] tab, 1 Group Refill(s), Pharmacy: [facility] [id number], DUE FOR AN OFFICE VISIT. PLEASE CALL DR. FLETCHER'S OFFICE TO MAKE AN APT. lisinopril 20 mg 20 mg = 1 tab, No Longer oral tablet PO, Daily, # 90 Active 2017 Medi [place] tab, 1 Group Refill(s), Pharmacy: [facility] [id number], DUE FOR AN OFFICE VISIT. PLEASE CALL DR. COLVIN'S OFFICE TO MAKE AN APT. Metoprolol 100 mg = 1 tab, Active Succinate ER 100 PO, Daily, # 90 2017 Medical mg oral tablet, tab, 1 Group extended release Refill(s), [facility] [id number] atorvastatin 40 40 mg = 1 tab, Active 12/02/ M H mg oral tablet PO, Daily, # 90 2018 M edical tab, 1 Group Refill(s), Pharmacy: [facility] [id number] dapagliflozin 5 mg = 1 tab, Active propanediol 5 MG PO, Daily, 0 2018 Wi dical Oral Tablet Refill(s) Group [Farxiga] atorvastatin 40 40 mg = 1 tab, No Longer mg oral tablet PO, Daily, 0 Active 2017 [facility] [place] Refill(s) Group apixaban 5 MG 5 mg = 1 tab, Active Oral Tablet PO, BID, # 180 2016 Medic al [Eliquis] tab, 1 Group Refill(s), [facility] [id number] Allergies, Adverse Reactions, Alerts Substance Category Reaction Severity Reaction Status Date Comments S ource type Reported NKFA Assertion Food Active allergy Medical Group No Known Assertion Drug Medication allergy Medic al Allergies Group Immunizations No Data Provided for This Section Results Order Name Results Value Reference Date Interpretation Comments Ev rce Range CHEM PANEL Magnesium Lvl 2.2 1.8 - 2.4 01/02 [facility] ELECTROLYTE AGAP 12.7 10.0 - 01/02 S 20.0 [facility] ELECTROLYTE CO2 28 24 - 32 01/02 [facility] ELECTROLYTE Calcium Lvl 7.7 8.5 - 10.5 01/02 [facility] ELECTROLYTE BUN 12 7 - 22 01/02 [facility] ELECTROLYTE Sodium Lvl 143 135 - 145 01/02 [facility] ELECTROLYTE Chloride Lvl 106 95 - 109 01/02 [facility] ELECTROLYTE Potassium Lvl 3.7 3.5 - 5.1 01/02 [facility] ELECTROLYTE eGFR 85 01/02 [facility] Comment: The [facility] eGFR is City calculated using the [...] Glucose Lvl 161 70 - 99 01/02 [facility] ELECTROLYTE Creatinine 0.81 0.50 - 01/02 S Lvl 1.40 [facility] HEMATOLOGY MPV 8.2 7.4 - 10.4 01/02 [facility] HEMATOLOGY Platelet 247 133 - 450 01/02 [facility] HEMATOLOGY RDW 14.0 11.5 - 01/02 14.5 [facility] HEMATOLOGY WBC 9.7 3.7 - 10.4 01/02 [facility] HEMATOLOGY RBC 3.93 4.70 - 01/02 MH 6.10 [facility] HEMATOLOGY Hgb 12.0 14.0 - 01/02 MH 18.0 [facility] HEMATOLOGY Hct 35.4 42.0 - 01/02 MH 54.0 [facility] HEMATOLOGY MCV 90.1 80.0 - 01/02 MH 94.0 /2017 [facility] HEMATOLOGY MCH 30.6 27.0 - 01/02 MH 31.0 [facility] HEMATOLOGY MCHC 34.0 32.0 - 01/02 MH 36.0 [facility] HEMATOLOGY Basophils # 0.1 0.0 - 0.2 01/02 [facility] HEMATOLOGY Segs 66.9 45.0 - 01/02 MH 75.0 [facility] HEMATOLOGY Eosinophils 4.7 0.0 - 4.0 01/02 [facility] HEMATOLOGY Basophils 1.1 0.0 - 1.0 01/02 [facility] HEMATOLOGY Lymphocytes 19.1 20.0 - 01/02 MH 40.0 [facility] HEMATOLOGY Monocytes 8.2 2.0 - 12.0 01/02 [facility] HEMATOLOGY Segs-Bands # 6.5 1.5 - 8.1 01/02 [facility] HEMATOLOGY Eosinophils # 0.5 0.0 - 0.5 01/02 [facility] HEMATOLOGY Monocytes # 0.8 0.0 - 0.8 01/02 [facility] HEMATOLOGY Lymphocytes # 1.9 1.0 - 5.5 01/02 [facility] CARDIAC BNP 221 <=100 01/01 ENZYMES pg/mL /2017 [facility] CHEM PANEL Magnesium Lvl 1.4 1.8 - 2.4 01/01 [facility] ELECTROLYTE AGAP 10.5 10.0 - 01/01 MH S 20.0 [facility] ELECTROLYTE CO2 33 24 - 32 01/01 [facility] ELECTROLYTE Calcium Lvl 8.2 8.5 - 10.5 01/01 [facility] ELECTROLYTE Potassium Lvl 3.5 3.5 - 5.1 01/01 [facility] ELECTROLYTE Sodium Lvl 144 135 - 145 01/01 [facility] ELECTROLYTE Chloride Lvl 104 95 - 109 01/01 [facility] ELECTROLYTE BUN 18 7 - 22 01/01 [facility] ELECTROLYTE Glucose Lvl 107 70 - 99 01/01 [facility] ELECTROLYTE eGFR 80 01/01 [facility] Comment: [facility] eGFR is City calculated using the [...] 0.50 - 01/01 MH S Lvl 1.40 [facility] HEMATOLOGY Segs-Bands # 6.9 1.5 - 8.1 01/01 [facility] Lymphocytes # 1.9 1.0 - 5.5 01/01 [facility] HEMATOLOGY Monocytes # 0.8 0.0 - 0.8 01/01 [facility] HEMATOLOGY Basophils # 0.1 0.0 - 0.2 01/01 [facility] HEMATOLOGY Eosinophils # 0.6 0.0 - 0.5 01/01 [facility] HEMATOLOGY Segs 66.9 45.0 - 01/01 MH 75.0 [facility] HEMATOLOGY Basophils 0.9 0.0 - 1.0 01/01 [facility] HEMATOLOGY Eosinophils 5.6 0.0 - 4.0 01/01 [facility] HEMATOLOGY Monocytes 7.8 2.0 - 12.0 01/01 [facility] HEMATOLOGY Lymphocytes 18.8 20.0 - 01/01 MH 40.0 [facility] HEMATOLOGY RDW 14.3 11.5 - 01/01 MH 14.5 [facility] HEMATOLOGY Platelet 271 133 - 450 01/01 [facility] HEMATOLOGY MPV 8.2 7.4 - 10.4 01/01 [facility] HEMATOLOGY WBC 10.3 3.7 - 10.4 01/01 [facility] MCHC 33.9 32.0 - 01/01 MH 36.0 [facility] HEMATOLOGY RBC 4.35 4.70 - 01/01 MH 6.10 [facility] HEMATOLOGY Hgb 13.3 14.0 - 01/01 18.0 [facility] HEMATOLOGY Hct 39.3 42.0 - 01/01 MH 54.0 [facility] HEMATOLOGY MCV 90.5 80.0 - 01/01 94.0 [facility] HEMATOLOGY MCH 30.6 27.0 - 01/01 31.0 [facility] URINE AND UA Ketones Negative 01/01 STOOL [facility] URINE AND UA Glucose 150 01/01 STOOL [facility] URINE AND UA Sq Epi None Seen 01/01 STOOL [facility] URINE AND UA Bacteria Few /HPF None Seen 01/01 STOOL /HPF /2017 [facility] URINE AND UA Mucus Few /LPF None Seen 01/01 STOOL /LPF [facility] URINE AND UA RBC 85 0 - 2 01/01 STOOL [facility] URINE AND UA Blood Moderate Negative 01/01 STOOL *ABN* /2017 [facility] (12/31/17 11:41 PM) [facility] URINE AND UA 4.0 0.1 - 1.0 01/01 STOOL Urobilinogen /2017 [facility] URINE AND UA pH 7.0 5.0 - 8.0 01/01 STOOL /2017 [facility] URINE AND UA Leuk Est Moderate Negative 01/01 STOOL *ABN* /2017 [facility] (12/31/17 11:41 PM) [facility] URINE AND UA WBC 72 0 - 5 01/01 STOOL /2017 [facility] URINE AND UA Bili Negative Negative 01/01 STOOL *NA* /2017 [facility] (12/31/17 11:41 PM) [facility] URINE AND UA Nitrite Negative Negative 01/01 STOOL (12/31/17 11:41 PM) /2017 [facility] [place] URINE AND UA Turbidity Slight Clear 01/01 STOOL *ABN* /2017 [facility] (12/31/17 11:41 PM) [facility] URINE AND UA Spec Grav 1.018 <=1.030 01/01 STOOL [facility] URINE AND UA Color Dark Yellow Yellow 01/01 STOOL *NA* /2017 [facility] (12/31/17 11:41 PM) [facility] URINE AND UA Protein >=300 Negative 01/01 STOOL mg/dL mg/dL [facility] ELECTROLYTE Potassium Lvl 4.3 3.5 - 5.1 12/18 S [facility] ELECTROLYTE Chloride Lvl 109 95 - 109 12/18 [facility] ELECTROLYTE CO2 28 24 - 32 12/18 [facility] ELECTROLYTE Calcium Lvl 9.8 8.5 - 10.5 12/18 [facility] Sodium Lvl 145 135 - 145 12/18 [facility] Glucose Lvl 144 70 - 99 12/18 [facility] ELECTROLYTE BUN 17 7 - 22 12/18 [facility] ELECTROLYTE eGFR 63 12/18 Result Comment: [facility] eGFR is City calculated using the [...] 0.50 - 12/18 S Lvl 1.40 /2017 [facility] ELECTROLYTE AGAP 12.3 10.0 - 12/18 S 20.0 [facility] HEMATOLOGY Hct 43.7 42.0 - 12/18 54.0 [facility] HEMATOLOGY Hgb 14.7 14.0 - 12/18 18.0 [facility] Pathology Reports No Data Provided for This Section Diagnostic Reports Report Value Date Source Chest 1view DX EXAM: Chest 1view DX 01/01/2018 [facility] HISTORY: - mild SOB COMPARISON: None Impression: [...] p Temperature Oral (F) 97.8 F 01/02/2018 [facility] Systolic (mm Hg) 155 01/02/2018 [facility] Diastolic (mm Hg) 90 01/02/2018 [facility] Respitory Rate 18 01/02/2018 [facility] C ity Heart Rate 65 01/02/2018 [facility] Resp[facility] Rate 16 01/02/2018 [facility] C ity Temperature Oral (F) 98.2 F 01/02/2018 [facility] Heart Rate 60 01/02/2018 [facility] Cit y Systolic (mm Hg) 149 01/02/2018 [facility] City Diastolic (mm Hg) 72 01/02/2018 [facility] Heart Rate 65 01/02/2018 [facility] Cit y Respitory Rate 16 01/02/2018 [facility] C ity Systolic (mm Hg) 136 01/02/2018 [facility] Diastolic (mm Hg) 61 01/02/2018 [facility] Temperature Oral (F) 98.3 F 01/02/2018 [facility] BMI Calculated 27.89 01/01/2018 [facility] C ity Weight 93.295 01/01/2018 [facility] Cit y Height 182.88 cm 01/01/2018 [facility] Systolic (mm Hg) 142 12/23/2017 [facility] [place] Diastolic (mm Hg) 69 12/23/2017 [facility] Respitory Rate 19 12/23/2017 [facility] C ity Systolic (mm Hg) 143 12/23/2017 [facility] City Diastolic (mm Hg) 65 12/23/2017 [facility] l [facility] Respitory Rate 20 12/23/2017 [facility] C ity Systolic (mm Hg) 143 12/23/2017 [facility] City Diastolic (mm Hg) 62 12/23/2017 [facility] l [facility] Respitory Rate 20 12/23/2017 [facility] C ity Heart Rate 74 12/23/2017 [facility] [...] Number For Provider Date Date Visit Outpatient [id number] [facility] 07/[address] [facility] [place] Outpatient [id number] NUCLEAR 08/13 [facility] SCAN [facility]ISIT /2015 Brennen n Outpatient [id number] [facility] 08/20 [facility] SCAN VISIT /2015 Brennen n Outpatient [id number] [facility] 08/[address] [facility] [place] Outpatient [id number] [facility] 12[facility] [facility] [place] Outpatient [id number] [facility] 06/[address] [facility] [place] Outpatient [id number] ECHO VISIT 06/20 [facility] Phone [id number] 07/19 07/21 Cardiology Message /2016 Medic al [facility] Outpatient [id number] FRANCES 11/28 [facility] Outpatient [id number] Anderson 11/28 11/29 Cardiology David /2017 Medic al [facility] Day Surgery [id number] Fer Efren 12/23 12/23 [facility] Gomez /2017 [facility] Emergency [id number] Neri 01/01 01/01 [facility] [place] /2017 Memori al [facility] Inpatient [id number] Latonya Latonya Pe 01/01 01/02 [facility] /2017 [facility] Phone [id number] 01/06 01/08 Urology Message /2017 Medical [facility] Outpatient [id number] ROBBI 01/16 [facility] Ambulatory [id number] Robbi 01/16 01/16 Urology [facility] /2017 Medica l [facility] Outpatient [id number] ROBBI 02/24 [facility] Outpatient [id number] Anderson 02/24 02/25 Urology David /2017 [facility] Outside [id number] 03/19 03/21 Cardiology Medical /2017 [facility] Outpatient [id number] FRANCES 05/05 [facility] [id number] Anderson 05/05 05/06 Cardiology David /2017 [facility] [place] [facility] [id number] Yakov 09/22 10/22 [facility] Patients [facility] OP Therapy [id number] Yakov 10/22 11/21 [facility] Patients [facility] Outpatient [id number] FRANCES 11/03 [facility] [id number] Frances 11/03 11/04 Cardiology [place] /2018 [facility] [place] [facility] Outpatient [id number] Frances 05/04 [facility] [id number] Frances 05/04 05/05 Cardiology [place] /2018 [facility] Outpatient [id number] Frances 11/02 [facility] Outpatient [id number] Frances 11/02 11/03 [place] /2019 [facility] [facility] Outpatient [id number] Gabrielle 02/23 [facility] Outpatient [id number] Luba 02/23 02/24 Specialty Joseph /2019 [facility] Outpatient [id number] [facility] 10/31 [facility] [place] Procedures Procedure Code Date Perfomer [place] [address] 02/24/2018 [facility] residual urine and/or bladder capacity by ultrasound, non-imaging CABG - Coronary [id number] 1999 Medica l artery bypass Group, graft<sup>1</sup> [facility] Cardiac [id number] Open Grafts Medical catheterization<sup 2004 Group , >2</sup> [facility] Carotid [id number] Right and left Medical endarterectomy<sup> Group , 3</sup> [facility] Vill[place]ando Repair of [id number] 1 week ago Medical diaphragmatic Group, hiatal [facility] hernia<sup>4</sup> [facility], MR DELORIS Villalpando Assessment and Plan No Data Provided for This Section Plan of Care No Data Provided for This Section Social History Social History Date Source Social History TypeResponse 12/18/2017 [facility] Alcohol Past Smoking Status Former smoker; Exposure to Tobacco Smoke None; Cigarette Smoking Last 365 Days No; Reg Smoking Cessation Counseling No entered on: 02/24/20 Social History TypeResponse 12/18/2017 [facility] Alcohol Past Smoking Status Former smoker; Exposure to Tobacco Smoke None; Cigarette Smoking Last 365 Days No; Reg Smoking Cessation Counseling No entered on: 12/31/17 Social History TypeResponse 12/18/2017 [facility] Alcohol Past Smoking Status Former smoker; Exposure to Tobacco Smoke None; Cigarette Smoking Last 365 Days No; Reg Smoking Cessation Counseling No entered on: 11/03/18 Family History No Data Provided for This Section Advance Directives No Data Provided for This Section Functional Status No Data Provided for This Section
--- OUTSIDE RECORDS SUMMARY | 2020-08-11 13:16 | XMS REPORT | Continuity of Care Document ---
:1940 Author Organization [facility] t Address [address] [place] [address] Care Team Providers Name Role Phone Pcp Primary Care Physician Unavailable Carolina Menezes Attending Clinician Aden Barbosa Attending Clinician Lakesha Engel Attending Clinician TORO Attending Clinician Unavailable BIANCA ARDON Attending Clinician Unavailable Lux Attending Clinician Luana Kamaar Attending Clinician Tello Burns Attending Clinician Jadiel Gomez Attending Clinician Max Cruz III Attending Clinician BIANCA ARDON Admitting Clinician Unavailable Luana Kamara Admitting Clinician Problems Condition Condition Condition Status Onset Resolution Last Treating Co mments Source Name Details Category Date Date Treatment Clinician Date DJD LUMBAR Diagnosis Active 2018-10-22 Memoria PAIN 2-13 09:39:00 l DJD 08:38: Edmund LUMBAR 00 PAIN Active 10/22/2018 [facility] Erosion of Erosion of Disease Active [...] Edmund UTI, 00 KIDNEY INJURY Active 12/31/2017 [facility] INJURY OF Diagnosis Active 2018-01-07 Memoria URETER 4-24 22:03:00 l INJURY 00:00: Edmund OF URETER 00 Active 12/31/2017 [facility] [id number], Diagnosis Active 2018-04-17 Memoria 44611 3-27 16:05:00 l BILATERAL 00:00: [place] UMBILICAL [id number], 00 OUMAR 6[address]58 BILATERAL UMBILICAL OUMAR Active 12/03/2017 [facility] Chest pain Problem Active 2020-02-27 M emoria (finding) 2- 00:55:05 l Chest 00:00: Edmund pain 00 (finding) Active 10/30/2012 Problem 02/27/2020 Data migrated from Nautal on 02/05/15. Medical Group,[facility] [place] History of History of Problem Resolve [...] d injury of ureter, initial encounter 01/05/2018 [facility] Carotid Problem Active 2020-02-27 Ryan melodie atheroscle 00:55:05 l rosis Carotid Edmund (disorder) atheroscle rosis (disorder) Active Problem 02/27/2020 Medical Group,[facility] [place] Coronary Problem Active 2020-02-27 Mem oria arterioscl 00:55:05 l erosis Coronary Brennen watt (disorder) arterioscl erosis (disorder) Active Problem 02/27/2020 Data migrated from Nautal on 02/05/15. Medical Group,[facility] [place] Diabetes Problem Active 2020-02-27 Mem oria mellitus 00:55:05 l (disorder) Diabetes He rmann mellitus (disorder) Active Problem 02/27/2020 Medical Group,[facility] [place] Hyperlipid Problem Active 2020-02-27 M emoria emia 00:55:05 l (disorder) Brennen n Hyperlipid emia (disorder) Active Problem 02/27/2020 Medical Group,[facility] [place] Hypertensi Problem Active 2020-02-27 M emoria ve 00:55:05 l disorder, Edmund systemic Hypertensi arterial ve (disorder) disorder, systemic arterial (disorder) Active Problem 02/27/2020 Data migrated from Nautal on 02/05/15. Medical Group,[facility] [place] Mitral Problem Active 2020-02-27 Memor ia valve 00:55:05 l regurgitat Mitral Herm donavon ion valve (disorder) regurgitat ion (disorder) Active Problem 02/27/2020 Medical Group,[facility] [place] Nonspecifi Problem Active 2020-02-[address]-T 00:55:05 l abnormalit Brennen n y on Nonspecifi electrocar c ST-T diogram abnormalit (finding) y on electrocar diogram (finding) Active Problem 02/27/2020 Medical Group,[facility] [place] Persistent Problem Active 2020-02-27 M emoria atrial 00:55:05 l fibrillati Brennen n on Persistent (disorder) atrial fibrillati on (disorder) Active Problem 02/27/2020 Medical Group,[facility] [place] Tricuspid Problem Active 2020-02-27 Me moria valve 00:55:05 l regurgitat Brennen n ion Tricuspid (disorder) valve regurgitat ion (disorder) Active Problem 02/27/2020 Medical Group,[facility] [place] Femoral Problem Active 2020-02-27 Ryan melodie hernia 00:55:05 l (disorder) Femoral Her dickson hernia (disorder) Active Problem 02/27/2020 Medical Group,[facility] [place] Gastroesop Problem Active 2020-02-27 M emoria hageal 00:55:05 l reflux Edmund disease Gastroesop with hageal esophagiti reflux s disease (disorder) with esophagiti s (disorder) Active Problem 02/27/2020 Medical [facility] [place] Glaucoma Problem Active 2020-02-27 Mem oria (disorder) 00:55:05 l Glaucoma Brennen n (disorder) Active Problem 02/27/2020 Medical Group,[facility] [place] Umbilical Problem Active 2020-02-27 Me moria hernia 00:55:05 l (disorder) Brennen n Umbilical hernia (disorder) Active Problem 02/27/2020 Medical [facility] [place] ALTERED Diagnosis Active 2017-12-31 Me moria MENTAL 22:28:00 l STATUS, ALTERED Brennen n UNSPECIFIE MENTAL D STATUS, UNSPECIFIE D Active [facility] UNSPECIFIE Diagnosis Active 2018-01-07 Memoria D INJURY 22:03:00 l OF URETER, Brennen n INITIAL EN UNSPECIFIE D INJURY OF URETER, INITIAL EN Active [facility] AMS/ UTI/ Diagnosis Active 2018-01-01 Memoria DIRECT 19:23:00 l ADMIT AMS/ Edmund UTI/ DIRECT ADMIT Active [facility] Allergies, Adverse Reactions, Alerts Allergy Allergy Status Severity Reaction(s) Onset Inactive Treating Comm ents Source Name Type Date Date Clinician NKFA NKFA Active Memoria l [place] No Known No Known Active Memori a Medicati Medicati l on on [place] Allergie Allergie s s Social History Social Habit Start Date Stop Date Quantity Comments Source Sex Assigned At [facility] Tobacco use and 2018-05-14 2018-05-14 Never used [facility] - exposure 00:00:00 00:00:00 [facility] Alcohol intake 2018-05-14 2018-05-14 [facility] 00:00:00 non-drinker of Medical Ce nter alcohol (finding) Tobacco Comment 2018-04-30 2018-04-30 quit 30 yrs ago [facility] - 00:00:00 00:00:00 [facility] Social History 2017-12-18 2017-12-18 [facility] ermann 16:53:06 16:53:06 Smoking Status Start Date Stop Date Source Never smoker [facility] Former smoker 2018-05-14 00:00:00 2018-05-14 00:00:[address] [facility] Medications Ordered Filled Start Stop Current Ordering Indication Dosage Frequency Signature Comments Components Source Medication Medication Date Date Medication? Clinician (SIG) Name Name lisinopril Yes 20 mg = 1 Me moria 20 mg oral 2-24 tab, PO, l tablet 17:14: Daily, 0 [place] 00 Refill(s) Aspirin 81 2019-0 Yes 81 [...] nn [Eliquis] 56 tab, 3 Refill(s), Pharmacy: [facility] [id number] lisinopril 0 Yes 5 mg = 1 [...] 40 MG 14:03: daily. Medical tablet 36 [place] lisinopril Yes 20mg QD Take [address] (PRINIVIL,Z 05-16 by mouth Luke s - ESTRIL) 20 14:03: daily. Medic al MG tablet 36 [place] amLODIPine Yes 5mg QD Take 5 mg [...] mouth Medica l 24 hr 36 daily. [place] capsule travoprost 2018-0 Yes 1[drp] QD Place [...] mg tablet 14:03: daily. Medica l 36 [place] Ciprofloxac 2017-0 Yes 250 mg = 1 Memoria in 250 MG 6-18 tab, PO, l Oral Tablet 15:22: Q12H, X 7 H ermann [Cipro] 00 day, # 14 tab, 0 Refill(s), Pharmacy: [facility] [id number] Eliquis No Notes: Memoria 01-02 Same as: l 22:00: Eliquis [place] 00 Acetaminoph Yes 1 tab, PO, Memoria [...] melodie ophthalmic 4-26 Keep l 02:00: refrigerat [place] 00 ed. (Same as:Darlin ) Opened bottle [...] Memoria 4-25 (Same as: l 14:00: Colace) [place] (Do Not Crush) albumin No Notes: Memoria human 25% 4-25 LOT#: l intravenous 10:48: [place] solution 00 ___ Mfg: WASTE: F/P - [...] / 4-25 (Same as: l Hydrocodone 04:07: [place] Larissa nn Bitartrate 00 325/5) Do 5 MG Oral not exceed Tablet 4gm/day of acetaminop hen. Sodium No 1,000 mL, Memori a Chloride 4-25 Rate: 75 l 0.9% IV 04:07: ml/hr, [place] 1,000 mL 00 Infuse over: 13.3 hr, [...] Ryan melodie 416 Route: l 19:45: IVP, [place] 00 Q20Min, Dosing Weight 84.091, kg, PRN Elevated BP, Start date: 12/23/17 14:45:00 CDT, Duration: 2 doses or times, Stop date: Limited # of times Ondansetron 2018-0 No 4 mg, Memor ia 416 Route: l 19:45: IVP, ONCE, [place] 00 Dosing Weight 84.091, kg, PRN Nausea [...] of times Flumazenil 2018-0 No 0.2 mg, Ryna melodie 12-23 Route: l 19:45: IVP, PRN, [...] Route: l de 10 MG/ML 16:00: INTRADERM, [place] Injectable 00 Dosing Solution Weight 84.091, kg, ONCALL, Start date: 12/23/17 11:00:00 CDT, Duration: 1 doses or times Sodium 2018-0 No 1,000 mL, Memori a Chloride 12-23 Rate: 25 l 0.9% IV 15:33: ml/hr, [place] 1000 mL 00 Infuse over: 40 hr, [...] Edmund 05 90 tab, 1 Refill(s), Pharmacy: [facility] [id number], DUE FOR AN OFFICE VISIT. PLEASE CALL DR. CRUZ' S OFFICE TO MAKE AN APT. lisinopril 2018-0 No 20 mg = 1 Me moria 20 mg oral 3-26 tab, PO, l tablet 18:44: Daily, # Edmund 59 90 tab, 1 Refill(s), Pharmacy: [facility] [place] [address], DUE FOR AN OFFICE VISIT. PLEASE CALL DR. COLVIN 'S OFFICE TO MAKE AN APT. Metoprolol 2018 Yes 100 mg = 1 M emoria Succinate 3-26 tab, PO, l ER 100 mg 18:44: Daily, # Herm donavon oral 22 90 tab, 1 tablet, Refill(s), extended Pharmacy: release [facility] [place] [address] atorvastati Yes 40 mg = 1 M emoria n 40 mg - tab, PO, l oral tablet 18:44: Daily, # He rmann 00 90 tab, 1 Refill(s), Pharmacy: [facility] [place] [address] dapaglifloz Yes 5 mg = 1 Me [...] nn [Eliquis] 44 tab, 1 Refill(s), Pharmacy: [facility] [place] [address] Metoprolol Metoprolol Yes Uni vers Tartrate 25 Tartrate 25 i ty of MG Oral MG Oral [place] Tablet Tablet Physici ans GlipiZIDE GlipiZIDE Yes Unive rs 10 MG Oral 10 MG Oral ity of Tablet Tablet [place] Physici ans PriLOSEC 10 PriLOSEC 10 Yes U nivers MG CPDR MG CPDR ity of [place] Physici ans Atorvastati Atorvastati Yes U nivers [...] 40 MG Oral ity of Tablet Tablet [place] Physici ans AmLODIPine AmLODIPine Yes Uni vers Besylate 5 Besylate 5 ity of MG Oral MG Oral [place] Tablet Tablet Physici ans Tamsulosin Tamsulosin Yes Uni vers HCl CAPS HCl CAPS ity of [place] Physici ans Ciprofloxac Ciprofloxac Yes U nivers [...] Oral MG Oral ity of Tablet Tablet [place] Physici ans Eliquis 2.5 Eliquis 2.5 Yes U nivers MG Oral MG Oral ity of Tablet Tablet [place] Physici ans Vital Signs Vital Name Observation Time Observation Value Comments Source Systolic (mm Hg) 2020-02-24 14:38:00 Ryan rial [place] Diastolic (mm Hg) 2020-02-24 14:38:00 Mem orial [place] Heart Rate 2020-02-24 14:38:00 [facility] Height 2020-02-24 14:38:00 182.88 cm [facility] Weight 2020-02-24 14:38:00 [facility] BMI Calculated 2020-02-24 14:38:00 Memori al [place] Systolic (mm Hg) 2019-11-02 17:12:00 Ryan rial [place] Diastolic (mm Hg) 2019-11-02 17:12:00 Mem orial [place] Heart Rate 2019-11-02 17:12:00 [facility] Height 2019-11-02 17:12:00 180.34 cm [facility] Weight 2019-11-02 17:12:00 [facility] BMI Calculated 2019-11-02 17:12:00 Memori al [place] Systolic (mm Hg) 2019-05-04 15:24:00 Ryan rial [place] Diastolic (mm Hg) 2019-05-04 15:24:00 Mem orial [place] Heart Rate 2019-05-04 15:24:00 [facility] [place] Height 2019-05-04 15:24:00 180.34 cm [facility] [place] Weight 2019-05-04 15:24:00 [facility] [place] BMI Calculated 2019-05-04 15:24:00 Memori al [place] BMI Calculated 2018-11-03 16:43:00 Memori al [place] Weight 2018-11-03 16:43:00 [facility] [place] Height 2018-11-03 16:43:00 177.8 cm [facility] [place] Systolic (mm Hg) 2018-11-03 16:43:00 Ryan rial [place] Diastolic (mm Hg) 2018-11-03 16:43:00 Mem orial [place] Heart Rate 2018-11-03 16:43:00 [facility] [place] Height 2018-09-17 10:37:00 71 [in_us] [facility] Physician s Weight 2018-09-17 10:37:00 198 [lb_av] [facility] Physician s Body Mass Index 2018-09-17 10:37:00 27.62 kg/m2 Unive rsity of Calculated [place] Physician s Heart Rate 2018-05-05 16:44:00 [facility] [place] Systolic (mm Hg) 2018-05-05 16:44:00 Ryan rial [place] Diastolic (mm Hg) 2018-05-05 16:44:00 Mem orial [place] Weight 2018-05-05 16:44:00 [facility] [place] BMI Calculated 2018-05-05 16:44:00 Memori al [place] Height 2018-05-05 16:44:00 177.8 cm [facility] [place] BMI Calculated 2018-02-24 15:01:00 Memori al [place] Weight 2018-02-24 15:01:00 [facility] [place] Height 2018-02-24 15:01:00 182.88 cm [facility] [place] Systolic (mm Hg) 2018-02-24 15:01:00 Ryan rial [place] Diastolic (mm Hg) 2018-02-24 15:01:00 Mem orial [place] Heart Rate 2018-02-24 15:01:00 [facility] [place] Temperature Oral (F) 2018-01-02 21:08:00 97.8 F [facility] [place] Systolic (mm Hg) 2018-01-02 21:08:00 Ryan rial [place] Diastolic (mm Hg) 2018-01-02 21:08:00 Mem orial [place] Respitory Rate 2018-01-02 21:08:00 Memori al [place] Heart Rate 2018-01-02 21:08:00 [facility] [place] Respitory Rate 2018-01-02 16:25:00 Memori al [place] Temperature Oral (F) 2018-01-02 16:25:00 98.2 F [facility] [place] Heart Rate 2018-01-02 16:25:00 [facility] [place] Systolic (mm Hg) 2018-01-02 16:25:00 Ryan rial [place] Diastolic (mm Hg) 2018-01-02 16:25:00 Mem orial [place] Heart Rate 2018-01-02 12:58:00 [facility] [place] Respitory Rate 2018-01-02 12:58:00 Memori al [place] Systolic (mm Hg) 2018-01-02 12:58:00 Ryan rial [place] Diastolic (mm Hg) 2018-01-02 12:58:00 Mem orial [place] Temperature Oral (F) 2018-01-02 12:58:00 98.3 F [facility] [place] BMI Calculated 2018-01-01 03:40:00 Memori al [place] Weight 2018-01-01 03:40:00 [facility] [place] Height 2018-01-01 03:40:00 182.88 cm [facility] [place] Systolic (mm Hg) 2017-12-23 21:45:00 Ryan rial [place] Diastolic (mm Hg) 2017-12-23 21:45:00 Mem orial [place] Respitory Rate 2017-12-23 21:45:00 Memori al [place] Systolic (mm Hg) 2017-12-23 21:39:00 Ryan rial [place] Diastolic (mm Hg) 2017-12-23 21:39:00 Mem orial [place] Respitory Rate 2017-12-23 21:39:00 Memori al [place] Systolic (mm Hg) 2017-12-23 21:24:00 Ryan rial [place] Diastolic (mm Hg) 2017-12-23 21:24:00 Mem orial [place] Respitory Rate 2017-12-23 21:24:00 Memori al [place] Heart Rate 2017-12-23 15:46:00 [facility] [place] BMI Calculated 2017-12-18 15:02:00 Brian al [place] Weight 2017-12-18 15:02:00 [facility] [place] Height 2017-12-18 15:02:00 180.34 cm [facility] [place] BMI Calculated 2017-11-28 16:03:00 Brian al [place] Heart Rate 2017-11-28 16:03:00 [facility] [place] Systolic (mm Hg) 2017-11-28 16:03:00 Ryan martinez [place] Diastolic (mm Hg) 2017-11-28 16:03:00 Mem orial [place] Height 2017-11-28 16:03:00 177.8 cm [facility] [place] Weight 2017-11-28 16:03:00 [facility] [place] Procedures Procedure Date / Time Performing Clinician Source Performed Pre Op Promise 29 Survey 2018-09-10 00:00:00 [facility] Measurement of 2018-02-24 15:04:00 [facility] Her dickson post-voiding residual urine and/or bladder capacity by ultrasound, non-imaging History of Heart Surgery [facility] History of Angioplasty [facility] Internal Carotid Artery Physicia ns CABG - Coronary artery [facility] Edmund bypass graft<sup>1</sup> Cardiac [facility] Edmund catheterization<sup>2</s up> Carotid [facility] Edmund endarterectomy<sup>3</beckett p> Repair of diaphragmatic [facility] Edmund hiatal hernia<sup>4</sup> Plan of Care Planned Activity [...] 00:00:00 (1 of 1 - [facility] Center [id number] PCV13) [code = PNEUMOCOCCAL 65+ YRS (1 of 1 - [id number] PCV13)] Encounters Start End Encounter Admission Attending Care Care Encounter Source Date/Time Date/Time Type Type Clinicians Facility Department ID 2020-02-24 2020-02-24 Outpatient JES Menezes [id number] 09:00:00 23:59:59 Gabrielle L 16 2019-11-02 2019-11-02 [place] [id number] 11:00:00 23:59:59 Syed Aden 14 2019-05-04 2019-05-04 [place] [id number] 10:15:00 23:59:59 Syedshukri Samaniego 13 2018-10-22 2018-11-20 Outpatient Toro [id number] 08:38:00 23:59:00 Yakov [id number] Strake [id number] 5.98 2018-11-03 2018-11-03 [place] [id number] 10:30:00 23:59:59 Syed Samaniego 12 2018-09-22 2018-10-21 Outpatient Toro [id number] 09:51:00 23:59:00 Yakov [id number] Straaleksander [id number] 5.98 2018-09-17 2018-09-17 Appointmen TORO [facility] [id number] Univers 09:30:00 09:30:00 t; Carlos Eduardo YAÑEZ Ortho and ity of [facility], Spine [facility] Allison Wahl M.D. [place] ans 2018-05-05 2018-05-05 [place] [id number] 11:15:00 23:59:59 Syedshukri Samaniego 09 2018-03-19 2018-03-20 Outpatient MG MG [id number] 13:39:00 23:59:59 06 2018-02-24 2018-02-24 [place] [id number] 09:15:00 23:59:59 Robbi 11 2018-01-16 2018-01-16 [place] [id number] 14:15:00 14:15:00 Robbi 10 2018-01-16 2018-01-16 Outpatient Lux, [facility] [id number] 14:15:00 14:15:00 Robbi 10 2018-01-06 2018-01-07 Outpatient [facility] [id number] 11:57:00 23:59:59 05 2017-12-31 2018-01-02 Outpatient Latonya Kamara [facility] [id number] 22:14:00 16:55:00 A 14 2017-12-31 2017-12-31 Outpatient Katy, [facility] [id number] 22:12:00 22:12:00 Neri 02 Tello 2017-12-23 2017-12-23 Outpatient Gomez, Fer [facility] [id number] 05:43:00 17:20:00 Efren Duvall 2017-11-28 2017-11-28 Outpatient Nancy [facility] [id number] 10:45:00 23:59:59 Laith Wilson Max 2017-11-28 2017-11-28 Outpatient Nancy [facility] [id number] 10:45:00 23:59:59 Laith Wilson Max 2017-07-19 2017-07-20 Outpatient [facility] [id number] 16:08:00 23:59:59 04 2017-04-30 2017-04-30 AppointKLEBER Campa [facility] [id number] Univers 11:30:00 11:30:00 t; Carlos Eduardo YAÑEZ it y of Sandra ENGEL Physici M.D. ans Results Test Test Test Results Result Source Description Time Comments Comments [U] XRAY SPINE 2018-09- Images acquired, not University of LUMBOSACRAL MIN reported on this Qasim as 4 VWS [id number] 11:15:00 accession number. Jett ians [U] XRAY HIPS 2018-09- Images acquired, not U niversity of BILATERAL MIN 2 reported on this Qasim as VWS AND AP 07:43:00 accession number. Ailyn no PELVIS [id number] TISSUE EXAM 2018-05- Surgical Pathology 10 Report 17:28:00 Case: [id number] Authorizing Provider: Byron Ardon MD Collected: 05/13/2018 1448 Ordering Location: [facility] PERIOPERATIVE Received: 05/14/2018 0818 SERVICES Pathologist: Eze [...] FAST MICROORGANISMS Signing Pathologist Direct Phone Line: [phone] ly signed by Eze Guzman MD on 05/19/2018 at 5:28 PMPreliminary result electronically signed by Eze Guzman MD on 05/16/2018 at 11:49 AMSpecial stains for AFB and GMS were negative for acid fast and fungal microorganisms, respectively. [id number] O8Dwrucfater bladder emptying A. Mesh; B. Bladder with [...] surface throughout. No discrete masses are identified. Cryptographic Machine Operator sections are submitted in cassettes C1-C19. DB/plPerformed POCT-GLUCOSE METER 2018-05-16 07:37:00 Test Item Value Reference Range Interpretation Comme nts POC-GLUCOSE METER (BEAKER) (test 184 mg/dL 70-110 H TESTED AT [facility] [address] code = 1538) [facility] 7703 0 BASIC METABOLIC [id number] 06:19:00 Test Item Value Reference Range Interpretation [...] [facility]) (test code = 413) POCT-GLUCOSE [id number] 21:51:00 Test Item Value Reference Range Interpretation Comments POC-GLUCOSE METER 216 mg/dL 70-110 H TESTED AT [place] [address] ([facility]) (test code = TALA Shultz [facility] 1538) [address]957 POCT-GLUCOSE [id number] 19:28:00 Test Item Value Reference Range Interpretation Comments POC-GLUCOSE METER 186 mg/dL 70-110 H TESTED AT [place] [address] ([facility]) (test code = TALA Shultz [facility] 1538) [id number] POCT-GLUCOSE [id number] 16:57:00 Test Item Value Reference Range Interpretation Comments POC-GLUCOSE METER 215 mg/dL 70-110 H TESTED AT [place] [address] ([facility]) (test code = TALA Shultz [facility] 1538) 57852 POCT-GLUCOSE [id number] 12:43:00 Test Item Value Reference Range Interpretation Comments POC-GLUCOSE METER 223 mg/dL 70-110 H TESTED AT [place] [address] ([facility]) (test code = TALA Shultz [facility] 1538) 86254 POCT-GLUCOSE [id number] 08:13:00 Test Item Value Reference Range Interpretation Comments POC-GLUCOSE METER 157 mg/dL 70-110 H TESTED AT [place] [address] ([facility]) (test code = TALA Shultz [facility] 1538) [id number] GENTAMICIN LEVEL, [id number] 05:51:00 Test Item Value Reference Range Interpretation Comments [facility]IN TROUGH [facility] (test 1.9 ug/mL 0.5-1.0 H code = 398) Dosing Target Level (mcg/mL)1-1.5 mg/kg q 8-12 HR 0.5-1.03-7 mg/kg q 24 HR <0.5BASIC METABOLIC [id number] 05:47:00 Test Item Value Reference Range Interpretation [...] 0-0 (BEAKER) (test code = 413) POCT-GLUCOSE [id number] 21:47:00 Test Item Value Reference Range Interpretation Comments POC-GLUCOSE METER 220 mg/dL 70-110 H TESTED AT [place] [address] (BEAKER) (test code = TALA Shultz [facility] 1538) [id number] POCT-GLUCOSE [id number] 17:06:00 Test Item Value Reference Range Interpretation Comments POC-GLUCOSE METER 211 mg/dL 70-110 H TESTED AT [place] [address] (BEAKER) (test code = TALA Shultz [facility] 1538) 28569 POCT-GLUCOSE [id number] 11:44:00 Test Item Value Reference Range Interpretation Comments POC-GLUCOSE METER 225 mg/dL 70-110 H TESTED AT [place] [address] (BEAKER) (test code = [facility] Lexii [facility] 1538) [address]199 POCT-GLUCOSE [id number] 08:29:00 Test Item Value Reference Range Interpretation Comments POC-GLUCOSE METER 201 mg/dL 70-110 H TESTED AT [place] [address] (BEAKER) (test code = [facility] Lexii [facility] 1538) [address] BASIC METABOLIC [id number] 06:04:00 Test Item Value Reference Range Interpretation [...] 0-0 (BEAKER) (test code = 413) POCT-GLUCOSE [id number] 21:39:00 Test Item Value Reference Range Interpretation Comments POC-GLUCOSE METER 275 mg/dL 70-110 H TESTED AT [facility] 6720 ([facility] (test code = [place] 1538) [address] BASIC METABOLIC [id number] 19:42:00 Test Item Value Reference Range Interpretation [...] 0-0 (BEAKER) (test code = 413) POCT-GLUCOSE [id number] 18:50:00 Test Item Value Reference Range Interpretation Comments POC-GLUCOSE METER 197 mg/dL 70-110 H TESTED AT [facility] 6720 ([facility]) (test code = TALA VINCENT 1538) [id number] VANCOMYCIN LEVEL, [id number] 12:29:00 Test Item Value Reference Range Interpretation Comments VANCOMYCIN TROUGH (BEAKER) (test 20.9 ug/mL 10.0-20.0 H code = 522) Please draw trough at 1330 (30 minutes prior to scheduled vancomycin dose at 1400).POCT-GLUCOSE [id number] 07:17:00 Test Item Value Reference Range Interpretation Comments POC-GLUCOSE METER 148 mg/dL 70-110 H TESTED AT [facility] 6720 (BEAKER) (test code = TALA Shultz [place] 1538) [address] POCT-GLUCOSE [id number] 06:09:00 Test Item Value Reference Range Interpretation Comments POC-GLUCOSE METER 149 mg/dL 70-110 H TESTED AT [facility] 6720 (BEAKER) (test code = TALA Shultz [place] 1538) [address] BASIC METABOLIC [id number] 06:04:00 Test Item Value Reference Range Interpretation [...] 0-0 (BEAKER) (test code = 413) POCT-GLUCOSE [id number] 21:17:00 Test Item Value Reference Range Interpretation Comments POC-GLUCOSE METER 164 mg/dL 70-110 H TESTED AT [place] [address] ([facility]) (test code = [place] 1538) [id number] POCT-GLUCOSE [id number] 16:39:00 Test Item Value Reference Range Interpretation Comments POC-GLUCOSE METER 225 mg/dL 70-110 H TESTED AT [place] [address] ([facility]) (test code = [place] 1538) [id number] POCT-GLUCOSE [id number] 12:09:00 Test Item Value Reference Range Interpretation Comments POC-GLUCOSE METER 186 mg/dL 70-110 H TESTED AT [place] [address] ([facility]) (test code = TALA Shultz [facility] 1538) [id number] POCT-GLUCOSE [id number] 08:50:00 Test Item Value Reference Range Interpretation Comments POC-GLUCOSE METER 194 mg/dL 70-110 H TESTED AT [place] [address] ([facility]) (test code = TALA Shultz [facility] 1538) [id number] BASIC METABOLIC [id number] 06:04:00 Test Item Value Reference Range Interpretation [...] 0-0 (BEAKER) (test code = 413) POCT-GLUCOSE [id number] 00:11:00 Test Item Value Reference Range Interpretation Comments POC-GLUCOSE METER 143 mg/dL 70-110 H TESTED AT [facility] 6720 (BEAKER) (test code = TALA Shultz [facility] 1538) [id number] POCT-GLUCOSE [id number] 17:16:00 Test Item Value Reference Range Interpretation Comments POC-GLUCOSE METER 261 mg/dL 70-110 H TESTED AT [facility] 67 (BEAKER) (test code = TALA Shultz [facility] 1538) [id number] POCT-GLUCOSE [id number] 10:04:00 Test Item Value Reference Range Interpretation Comments POC-GLUCOSE METER 153 mg/dL 70-110 H TESTED AT [place] [address] ([facility] (test code = TALA Shultz [facility] 1538) [address] BASIC METABOLIC [id number] 17:28:00 Test Item Value Reference Range Interpretation [...] S NOT APPLICABLE FOR DIALYSIS PATIEN TS. [id number] 17:26:00 Test Item Value Reference Range Interpretation Comments PARTIAL THROMBOPLASTIN TIME 28.7 seconds 22.5-36.0 (BEAKER) (test code = 760) PROTHROMBIN TIME/[id number] 17:25:00 Test Item Value Reference Range Interpretation [...] (test code = 2801) RAD, CHEST, 2 [id number] 16:06:00Reason for exam:->screening prior to anesthesiaFINAL REPORT [...] MDReport Verified Date/Time: 04/30/2018 16:06:13 Reading Location: [address] Radiology Reading Room CHEM [id number] 08:35:002.2[facility] GgowlimPRMKBLCEBZZG5572-05-74 08:35:0012.7[facility] YvjqpgiMGMOLASSRBBN8422-42-19 08:35:0028[facility] ETQTBOVRDGEU6841-98-31 08:35:007.7[facility] BolrxwwLSXHJNJZQRJE9677-70-04 08:35:0012[facility] IlgkmlrMMVRVYYTDGUO7337-68-48 08:35:91028Zvduljog [facility] UGULPDGAYQKN2950-02-03 08:35:51627Ignnjdyg GayzgklTKDOCKYBKWFH5515-93-71 08:35:003.7[facility] HpnkujsVCDXRXEJCFXF3823-95-20 08:35:0085[facility] DFPXGUNFOHIW4404-78-65 08:35:75695Epuhiswe EennrfgMIGUWHPINKIX9635-61-22 08:35:000.81[facility] TdjwccqAKHPOJMAEP7117-57-51 08:35:008.2[facility] PQNWGJHMXK2807-72-45 08:35:38508Qnjhamrl OpeoulpYRUAMRVIGL4411-19-74 08:35:00 14.0[facility] JjkaqjvVXSMTVEBXB0764-46-00 08:35:009.7[facility]ann[facility]MATOLOGY 2018-01-02 08:35:003.93[facility] FfseycsQQFPVTGZFU6913-55-90 08:35:0012.0[facility] EyeezkxJGTHAIUGFK7637-79-63 08:35:0035.4[facility] VagjuhkOKTRBCLUXR6323-98-30 08:35:0090.1[facility] QowikxgDELRSBVELZ4387-70-90 08:35:00 Test Item Value Reference Range Interpretation Comments MCH (test code = MCH) 30.6 pg 27.0-31.0 [facility] WcskqikIMYTKLGCPN8641-00-92 08:35:0034.0[facility]annHEMATOLOGY 2018-01-02 08:35:000.1[facility] WstceviQGHZLTZDAS1660-66-26 08:35:0066.9[facility] PbdavjuGVSHDYEDFT5187-49-17 08:35:004.7[facility] VkocvpaCQKQEMNSZW6805-89-03 08:35:001.1[facility] KzoglrfTSAPVOMVWO9508-14-60 08:35:0019.1[facility] TYNMHXVHEI6679-77-92 08:35:008.2[facility] VdvzumlXMJVHZYDGX3454-74-46 08:35:006.5 [facility] CywpuruDXNMIYHGGZ5226-95-12 08:35:000.5[facility]annHEMATOLOGY 2018-01-02 08:35:000.8[facility] FiculuaCRXHOJQFAR1648-01-35 08:35:001.9[facility] HermannCARDIAC ZJJAAGM9304-04-98 05:05:57224Chnkdapd HermannCHEM UTMCH9801-23-77 05:05:001.4[facility] NyhrvtwOAPRKSHXZDSW4284-17-39 05:05:0010.5[facility] SKZLWIXFEMAW1839-94-00 05:05:0033[facility] DptbjmiXZQWGCXJZUMW8777-54-91 05:05:00 8.2[facility] TdgojuzYXXFJYIGLNAO6433-54-60 05:05:003.5[facility] MRALSZRFVEGC6519-60-16 05:05:77118Ihrvmzdj VpowuanGEJHNOPQUYVJ7894-68-84 05:05:87681Yyeeiyaf OnflbnaISQVBMDTCMRV7848-27-99 05:05:0018[facility] XHQTPQGMRVFL3803-69-97 05:05:48799Sjayextd KhbxprcVWFOFGASKEWQ3825-21-16 05:05:0080[facility] VegkkpbUVZQLVCFBCKJ2933-62-53 05:05:000.92[facility] NJCGUTOGIN9927-42-23 05:05:006.9[facility] GmhxrynGDLGGFCDDE5429-53-94 05:05:001.9 [facility] DbqqvzmAXOSBPTEMN5598-02-25 05:05:000.8[facility]annHEMATOLOGY 2018-01-01 05:05:000.1[facility] UjqzbtxPQXLTSVZBE6595-86-86 05:05:000.6[facility] QmguieiBRAILUJEVM7527-58-33 05:05:0066.9[facility] EaggqloIZIMADMOIN2852-19-88 05:05:000.9[facility] MqgxaklLKOQSOOYKQ2406-75-17 05:05:005.6[facility] AQGOGMLXOZ0749-20-57 05:05:007.8[facility] WoxhmidDPPSJAVZIJ0056-49-90 05:05:00 18.8[facility] KkprjfoJLWZYAHIPH3269-55-04 05:05:0014.3[facility]annHEMATOLOGY 2018-01-01 05:05:67781Yfwfpoxc DrvukepSPGXZYEFZU0380-57-69 05:05:008.2[facility] QukqdaoIHNDLABHFF1831-94-64 05:05:0010.3[facility] SeajaejUATPRKAJMV6792-53-33 05:05:0033.9[facility] BksimmzBQBMYCZPVZ1627-10-64 05:05:004.35[facility] IUDOEXFRGH5581-31-13 05:05:0013.3[facility] SmeeybhCHNCXUFBVF1444-98-98 05:05:00 39.3[facility] ZislplpEBUFAPYGGU2767-92-54 05:05:0090.5[facility]annHEMATOLOGY 2018-01-01 05:05:00 Test Item Value Reference Range Interpretation Comments MCH (test code = MCH) 30.6 pg 27.0-31.0 [facility]ann[facility] AND CPLKI2101-75-54 04:41:52600Zziamxol HermannURINE AND QAZMI8628-27-40 04:41:0085[facility] UHRFO1794-77-39 04:41:00 Moderate *ABN*(12/31/17 11:41 PM)[facility] VQTZD7354-28-13 04:41:004.0[facility] EADUT1635-21-67 04:41:00 Test Item Value Reference Range Interpretation Comments UA pH (test code = UA pH) 7.0 1 5.0-8.0 [facility] QLDQG7515-30-39 04:41:00Moderate *ABN*(12/31/17 11:41 PM)[facility] XCDJW9740-72-79 04:41:0072[facility] UHZLC2264-71-77 04:41:00Negative *NA*(12/31/17 11:41 PM)[facility] YECRJ3726-46-93 04:41:00Negative (12/31/17 11:41 PM)[facility] FGELT4129-89-99 04:41:00Slight *ABN*(12/31/17 11:41 PM)[facility] RGMKZ2278-99-67 04:41:00 Test Item Value Reference Range Interpretation Comments UA Spec Grav (test code = UA Spec 1.018 1 Grav) [facility] EQPRX4302-49-28 04:41:00Dark Yellow *NA*(12/31/17 11:41 PM)[facility] MiwdgjvTBICBHSWHYBT7927-61-82 15:30:004.3[facility] ZXNOKHDPWNYR4657-43-99 15:30:04896Rbvdltco LdemvnzKEHQSWJBDSCY3683-87-68 15:30:0028[facility] LvbsofxUSVYQESKWJTN8725-86-27 15:30:009.8[facility] LTUPZZFZOENS3415-07-43 15:30:06448Bekesdur PtospmkJNCOKKFBPDFW2378-22-90 15:30:44105Kxcmbpqp EpcfejyFZACQTVUOXRZ9581-53-34 15:30:0017[facility] ZZHNIAJLGWHF3474-41-62 15:30:0063[facility] AqkudhnEPKVRHAXAIPM8455-16-93 15:30:00 1.12[facility] MywichhVVJRVSQYSJII4068-98-58 15:30:0012.3[facility] ZDMTYCGHIY5174-51-13 15:30:0043.7[facility] ExmmuzoVXONNFEFTH1877-10-18 15:30:00 14.7[facility]
--- NOTE | 2020-08-11 14:06 | RAD REPORT ---
EXAM DESCRIPTION: CT - Head C Spine Mpr Wo Con - 08/11/2020 1:48 pm CLINICAL HISTORY: Head and neck injury status post fall. Head and neck pain COMPARISON: June 2020 TECHNIQUE: Computed axial tomography of the head and cervical spine was obtained. Sagittal and coronal reconstruction was performed. All CT scans are performed using dose optimization technique as appropriate and may include automated exposure control or mA/KV adjustment according to patient size. FINDINGS: Moderate low-density areas are present in periventricular, deep and subcortical white benny er secondary to ischemic changes secondary to small vessel disease. Small old right cerebral infarction. An intracranial bleed is not seen. The ventricles are normal in caliber. An extra-axial fluid collection is not noted.Fluid within the visualized sinuses and mastoid s is not seen A cervical fracture is not visualized. No dislocation is noted. IMPRESSION: No acute intracranial abnormality is seen. A cervical fracture is not visualized. If the patient continues to have symptoms to suggest intracra nial /spinal cord pathology then MRI would be recommended
--- NOTE | 2020-08-11 14:18 | RAD REPORT ---
EXAM DESCRIPTION: Penelope Single View08/11/2020 1:54 pm CLINICAL HISTORY: Chest pain COMPARISON: July 2020 FINDINGS: The lungs appear clear of acute infiltrate. The heart is moderately enlarged. Postsurgical changes involve the chest. IMPRESSION: No acute abnormalities displayed
--- NOTE | 2020-08-11 14:28 | RAD REPORT ---
EXAM DESCRIPTION: MRI - Brain Wo Cont - 08/11/2020 2:15 pm CLINICAL HISTORY: Alteration of consciousness/confusion/CVA COMPARISON: June 2020 MRI TECHNIQUE: Axial, sagittal, and coronal magnetic images of the brain were obtained. Contrast was not requested FINDINGS: Moderate signal within periventricular, deep and subcortical white matter likely ischemic changes secondary to small vessel disease. 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 Old cerebellar infarction. Diffusion-weighted/ADC mapping demonstrates an 8 millimeter acute infarct within the deep white matte r of right parietal lobe The ventricles are normal caliber. An extra-axial fluid collection is not present Fluid within the sinuses/mastoids is not noted IMPRESSION: 8 millimeter acute infarct deep white matter right parietal lobe
[2020-08-11 15:02] LABS: Absolute Lymphocytes (CBC) 1.5 K/uL (0.7-4.9); Basophils % 1.2 % (0-1.3); Hematocrit 37.9 % (39.6-49.0); Lymphocytes % 13.9 % (15.3-44.8); MPV 9.2 fL (7.6-11.3)
--- NOTE | 2020-08-11 15:07 | EDPHYS ---
Physician Documentation [facility] Name: Abisai Salinas Age: 80 yrs Sex: Male : 1940 Arrival Date: 08/11/2020 Time: 13:02 Bed 26 Private MD: ED Physician Bacilio Billings HPI: 08/11 13:31 This 80 yrs old Male presents to ER via EMS with complaints of Fall Injury, jmm Altered Mental Status. 13:31 Details of fall: The patient fell from seated position, off the edge of a bed. Onset: jmm The symptoms/episode began/occurred acutely, at 11:00. Associated injuries: The patient sustained neck injury, injury to the low back. This is an 80 year old male with a history of atrial fibrillation, DM, Dementia, HTN that presents to the ED with complaints from that his mental state has declined since a recent visit to the ED this past Saturday. Labs revealed low magnesium. states the patient has had increased hallucinations, combative, and increased falls. states having difficulty with home care despite home health daily visits. . Historical: - Allergies: 13:08 No Known Allergies; bp - Home Meds: 13:26 lisinopril 40 mg Oral tab 1 tab once daily [Active]; metformin 1,000 mg Oral tab 1 tab bp 2 times per day [Active]; metoprolol succinate 100 mg oral Tb24 1 tab once daily [Active]; Insulin Glargine Sub-Q 5 unit twice a day [Active]; brimonidine-timolol ophthalmic ophthalmic 1 drop every 12 hours [Active]; Eliquis 5 mg oral tab 1 tab 2 times per day [Active]; folic acid 1 mg Oral tab 1 tab once daily [Active]; glipizide 5 mg Oral tab 1 tab 2 times per day [Active]; atorvastatin 40 mg oral tab 1 tab once daily [Active]; metoprolol tartrate 100 mg Oral tab 1 tab once daily [Active]; magnesium oxide 400 mg Oral tab 400 mg daily [Active]; memantine 10 mg oral tab 1 tab 2 times per day [Active]; sitagliptin oral 50 MG oral 1 tab once daily [Active]; - PMHx: 13:26 Atrial Fib; Diabetes - IDDM; Dementia; Hypertension; bp - Immunization history:: Adult Immunizations up to date. - Social history:: Smoking status: Patient denies any tobacco usage or history of. ROS: 13:31 Constitutional: Negative for fever, chills, and weight loss, Cardiovascular: Negative [facility] for chest pain, palpitations, and edema, Respiratory: Negative for shortness of breath, cough, wheezing, and pleuritic chest pain. 13:31 Neck: Positive for pain with movement. 13:31 Back: Positive for pain with movement. 13:31 Neuro: Positive for altered mental status. 13:31 All other systems are negative. Exam: 13:31 Head/Face: atraumatic. Eyes: EOMI, no conjunctival erythema appreciated ENT: Moist jmm Mucus Membranes 13:31 Chest/axilla: Normal chest wall appearance and motion. Cardiovascular: Regular rate and rhythm. No edema appreciated Respiratory: Normal respirations, no respiratory distress appreciated Abdomen/GI: Non distended, soft Back: Normal ROM Skin: General appearance color normal 13:31 Constitutional: The patient appears in no acute distress, alert, awake. 13:31 Neck: C-spine: C-collar placed GAS TREATER. 13:31 Musculoskeletal/extremity: ROM: intact in all extremities. 13:31 Skin: Appearance: Color: normal in color. 13:31 Neuro: Orientation: to person, place \T\ time. 13:31 Psych: Behavior/mood is calm. Vital Signs: 13:03 BP 184 / 87; Pulse 71; Resp 18; Temp 97.8; Pulse Ox 97% ; bp 14:00 BP 165 / 74; Pulse 71; Resp 13; Pulse Ox 97% ; bp 15:00 BP 153 / 74; Pulse 67; Resp 18; Pulse Ox 96% ; bp 16:30 BP 185 / 94; Pulse 76; Resp 16; Pulse Ox 95% ; bp 18:00 BP 190 / 80; Pulse 76; Resp 12; Pulse Ox 98% ; bp 19:30 BP 178 / 84; Pulse 68; Resp 16; Pulse Ox 98% ; ea MDM: 13:25 Patient medically screened. abilio 15:04 Data reviewed: vital signs, nurses notes. Counseling: I had a detailed discussion with abilio the patient and/or guardian regarding: the historical points, exam findings, and any diagnostic results supporting the discharge/admit diagnosis, radiology results, the need for further work-up and treatment in the hospital. ED course: I discussed the patient with Dr. Rodríguez whom will consult on admission. unable to give exact onset of neurological symptoms. Appears to be out of the window for TPA administration. I discussed the patient with Dr. Perry whom accepted admission. . 08/11 13:26 Order name: Basic Metabolic Panel; Complete Time: 15:50 [facility] 08/11 13:26 Order name: CBC with Diff; Complete Time: 15:18 [facility] 08/11 13:26 Order name: LFT's; Complete Time: 15:50 [facility] 08/11 13:26 Order name: Magnesium; Complete Time: 15:50 [facility] 08/11 13:26 Order name: NT PRO-BNP; Complete Time: 15:50 [facility] 08/11 13:26 Order name: PT-INR; Complete Time: 15:19 [facility] 08/11 13:26 Order name: Troponin (emerg Dept Use Only); Complete Time: 15:50 [facility] 08/11 13:27 Order name: Urine Culture [facility] 08/11 13:27 Order name: Procalcitonin; Complete Time: 15:50 [facility] 08/11 13:27 Order name: Lactate; Complete Time: 15:24 [facility] 08/11 13:27 Order name: Blood Culture Adult (2) [facility] 08/11 15:38 Order name: CBC with Automated Diff [facility] 08/11 15:38 Order name: CBC with Automated Diff [facility] 08/11 15:38 Order name: Comprehensive Metabolic Panel [facility] 08/11 15:38 Order name: Comprehensive Metabolic Panel [facility] 08/11 15:38 Order name: Lipid Profile [facility] 08/11 15:38 Order name: Lipid Profile [facility] 08/11 15:38 Order name: Magnesium EDCO 08/11 15:38 Order name: Magnesium [facility] 08/11 15:38 Order name: Phosphorus [facility] 08/11 15:38 Order name: Phosphorus EDMS 08/11 15:38 Order name: Protime (+INR) [facility] 08/11 15:38 Order name: Protime (+INR) [facility]CO 08/11 15:38 Order name: Protime (+INR) EDMS 08/11 15:38 Order name: Protime (+INR) EDMS 08/11 15:38 Order name: Protime (+INR) EDMS 08/11 15:38 Order name: Protime (+INR) EDMS 08/11 15:38 Order name: PTT, Activated Partial Thromb [facility] 08/11 15:38 Order name: PTT, Activated Partial Thromb [facility] 08/11 15:38 Order name: PTT, Activated Partial Thromb [facility] 08/11 13:26 Order name: XRAY Chest (1 view); Complete Time: 14:21 [facility] 08/11 13:26 Order name: EKG; Complete Time: 13:27 [facility] 08/11 13:26 Order name: Cardiac monitoring; Complete Time: 13:34 [facility] 08/11 13:26 Order name: EKG - Nurse/Tech; Complete Time: 14:52 [facility] 08/11 13:26 Order name: IV Saline Lock; Complete Time: 14:52 [facility] 08/11 13:26 Order name: Labs collected and sent; Complete Time: 14:52 [facility] 08/11 13:26 Order name: O2 Per Protocol; Complete Time: 13:34 [facility] 08/11 13:26 Order name: O2 Sat Monitoring; Complete Time: 13:34 [facility] 08/11 13:26 Order name: CT Head C Spine; Complete Time: 14:10 [facility] 08/11 13:31 Order name: MRI - Brain Wo Cont; Complete Time: 14:37 [facility] 08/11 15:36 Order name: NPO [facility] 08/11 15:37 Order name: Physical Therapy Consult [facility] 08/11 15:37 Order name: Social Service Consult [facility] 08/11 15:37 Order name: Speech Therapy Consult [facility] 08/11 15:37 Order name: NPO [facility] 08/11 15:37 Order name: NPO [facility] 08/11 15:37 Order name: Echo with Doppler [facility] 08/11 15:38 Order name: PTT, Activated Partial Thromb [facility] 08/11 15:38 Order name: PTT, Activated Partial Thromb [facility] 08/11 15:38 Order name: PTT, Activated Partial Thromb [facility] 08/11 23:06 Order name: Urinalysis W/Microscopic; Complete Time: 23:23 [facility] 08/12 10:07 Order name: CORONAVIRUS [facility] 08/12 14:44 Order name: RAD EDCO Administered Medications: 15:00 Drug: foLIC Acid 1 mg Route: IVPB; Site: right antecubital; bp 15:00 Drug: Thiamine 100 mg Route: IV; Rate: calculated rate; Site: right antecubital; bp Disposition: 08/13 08:33 Co-signature as Attending Physician, Bacilio Billings MD I agree with the assessment and kdr plan of care. Disposition: 08/11/20 15:06 Hospitalization ordered by Greg Perry for Inpatient Admission. Preliminary diagnosis is Cerebral infarction. - Bed requested for Telemetry/MedSurg (Inpatient). - Status is Inpatient Admission. iw - Condition is Stable. - Problem is new. - Symptoms are unchanged. Signatures: Dispatcher [employer] EDRaina Dickens, RN RN Bacilio Billings MD MD kdr Vic Hayden PA PA [facility] Julia Gardiner, MICHI RN Yakov Garcia RN RN bp Corrections: (The following items were deleted from the chart) 08/11 18:19 15:06 Hospitalization Ordered by Greg Perry MD for Inpatient Admission. Preliminary bp diagnosis is Cerebral infarction. Bed requested for Telemetry/MedSurg (Inpatient). Status is Inpatient Admission. Condition is Stable. Problem is new. Symptoms are unchanged. [facility] 18:20 18:19 08/11/2020 15:06 Hospitalization Ordered by Greg Perry MD for Inpatient bp Admission. Preliminary diagnosis is Cerebral infarction. Bed requested for [facility] ER HOLD. Status is Inpatient Admission. Condition is Stable. Problem is new. Symptoms are unchanged. bp 08/12 13:42 12 18:20 08/11/2020 15:06 Hospitalization Ordered by Greg Perry MD for Inpatient dw Admission. Preliminary diagnosis is Cerebral infarction. Bed requested for [facility] ER HOLD. Status is Inpatient Admission. Condition is Stable. Problem is new. Symptoms are unchanged. bp 08/12 15:03 13:42 08/11/2020 15:06 Hospitalization Ordered by Greg Perry MD for Inpatient iw Admission. Preliminary diagnosis is Cerebral infarction. Bed requested for Telemetry/MedSurg (Inpatient). Status is Inpatient Admission. Condition is Stable. Problem is new. Symptoms are unchanged. dw
--- NOTE | 2020-08-11 15:07 | ER ---
Nurse's Notes [facility] Name: Abisai Salinas Age: 80 yrs Sex: Male : 1940 Arrival Date: 08/11/2020 Time: 13:02 Bed 26 Private MD: Diagnosis: Cerebral infarction Presentation: 08/11 13:03 Chief complaint: EMS states: MX FALLS SINCE LAST PM, ALONG WITH COGNITIVE DECLINE PER bp FAMILY. Coronavirus screen: At this time, unable to obtain information related to travel outside the [place] Ebola Screen: No symptoms or risks identified at this time. Initial Sepsis Screen: Does the patient meet any 2 criteria? No. Patient's initial sepsis screen is negative. Does the patient have a suspected source of infection? No. Patient's initial sepsis screen is negative. Risk Assessment: Do you want to hurt yourself or someone else? Patient reports no desire to harm self or others. Onset of symptoms is unknown. Care prior to arrival: Glucose check: 158. 13:03 Method Of Arrival: EMS: [facility] bp 13:03 Acuity: BIB 2 bp Triage Assessment: 13:05 General: Appears in no apparent distress. comfortable, unkempt, Behavior is bp cooperative, anxious. Pain: Denies pain. EENT: No deficits noted. Neuro: Level of Consciousness is awake, confused, Oriented to person. Cardiovascular: Rhythm is sinus rhythm. Respiratory: No deficits noted. GI: No signs and/or symptoms were reported involving the gastrointestinal system. : No signs and/or symptoms were reported regarding the genitourinary system. Derm: No deficits noted. Musculoskeletal: Circulation, motion, and sensation intact. Range of motion: intact in all extremities. Historical: - Allergies: 13:08 No Known Allergies; bp - Home Meds: 13:26 lisinopril 40 mg Oral tab 1 tab once daily [Active]; metformin 1,000 mg Oral tab 1 tab bp 2 times per day [Active]; metoprolol succinate 100 mg oral Tb24 1 tab once daily [Active]; Insulin Glargine Sub-Q 5 unit twice a day [Active]; brimonidine-timolol ophthalmic ophthalmic 1 drop every 12 hours [Active]; Eliquis 5 mg oral tab 1 tab 2 times per day [Active]; folic acid 1 mg Oral tab 1 tab once daily [Active]; glipizide 5 mg Oral tab 1 tab 2 times per day [Active]; atorvastatin 40 mg oral tab 1 tab once daily [Active]; metoprolol tartrate 100 mg Oral tab 1 tab once daily [Active]; magnesium oxide 400 mg Oral tab 400 mg daily [Active]; memantine 10 mg oral tab 1 tab 2 times per day [Active]; sitagliptin oral 50 MG oral 1 tab once daily [Active]; - PMHx: 13:26 Atrial Fib; Diabetes - IDDM; Dementia; Hypertension; bp - Immunization history:: Adult Immunizations up to date. - Social history:: Smoking status: Patient denies any tobacco usage or history of. Screenin:32 Abuse screen: Denies threats or abuse. Denies injuries from another. Nutritional bp screening: No deficits noted. Tuberculosis screening: No symptoms or risk factors identified. Fall Risk Fall in past 12 months (25 points). Secondary diagnosis (15 points) No IV (0 pts). Ambulatory Aid- Crutches/Cane/Walker (15 pts). Gait- Weak (10 pts.). Mental Status- Overestimates/Forgets Limitations (15 pts.). Total Lombardi Fall Scale indicates High Risk Score (45 or more points). Fall prevention measures have been instituted. Side Rails Up X 2 Placed Close to Nursing Station Frequent Obs/Assessments Occuring As available patient and family educated on Fall Prevention Program and Strategies. Assessment: 13:05 General: SEE TRIAGE NOTE. bp 15:00 Reassessment: PER MD, MRI + FOR STROKE. FAMILY REAFFIRMS LAST KNOWN WELL >48 HR. Neuro: bp Level of Consciousness is awake, obeys commands, Oriented to person, place. 16:30 Reassessment: Patient appears in no apparent distress at this time. No changes from bp previously documented assessment. Patient and/or family updated on plan of care and expected duration. Pain level reassessed. ADMIT INITIATED. 18:07 Reassessment: No changes from previously documented assessment. Patient and/or family bp updated on plan of care and expected duration. Pain level reassessed. ADMIT IN PROCESS, FAMILY LEAVING. PT MOVED TO ER HOLD, SEE [facility]. TARA SALINAS [phone]. Vital Signs: 13:03 BP 184 / 87; Pulse 71; Resp 18; Temp 97.8; Pulse Ox 97% ; bp 14:00 BP 165 / 74; Pulse 71; Resp 13; Pulse Ox 97% ; bp 15:00 BP 153 / 74; Pulse 67; Resp 18; Pulse Ox 96% ; bp 16:30 BP 185 / 94; Pulse 76; Resp 16; Pulse Ox 95% ; bp 18:00 BP 190 / 80; Pulse 76; Resp 12; Pulse Ox 98% ; bp 19:30 BP 178 / 84; Pulse 68; Resp 16; Pulse Ox 98% ; ea ED Course: 13:02 Patient arrived in ED. bp 13:06 Triage completed. bp 13:08 Vic Hayden PA is PHCP. jmm 13:08 Bacilio Billings MD is Attending Physician. jmm 13:08 Arm band placed on. bp 13:21 Yakov Garcia, RN is Primary Nurse. bp 13:32 Patient has correct armband on for positive identification. Bed in low position. Call bp light in reach. Side rails up X2. 13:49 CT Head C Spine In Process Unspecified. EDMS 13:53 XRAY Chest (1 view) In Process Unspecified. EDMS 14:15 MRI - Brain Wo Cont In Process Unspecified. EDMS 14:45 Inserted saline lock: 20 gauge in right antecubital area, using aseptic technique. bp Blood collected. 15:05 Greg Perry MD is Hospitalizing Provider. m 18:20 No provider procedures requiring assistance completed. Patient admitted, IV remains in bp place. Administered Medications: 15:00 Drug: foLIC Acid 1 mg Route: IVPB; Site: right antecubital; bp 15:00 Drug: Thiamine 100 mg Route: IV; Rate: calculated rate; Site: right antecubital; bp Outcome: 15:06 Decision to Hospitalize by Provider. jmm 18:21 Admitted to ER Hold. Please see [facility] for further documentation. bp 18:21 Condition: stable 18:21 Instructed on the need for admit. 08/12 15:03 Patient left the ED. iw Signatures: Dispatcher [employer] EDMS Vic Hayden PA PA jmm Williams, Irene, RN RN iw Antunez, Elena, RN RN ea Peltier, Brian, MICHI RN bp Corrections: (The following items were deleted from the chart) 08/11 18:20 18:07 Reassessment: No changes from previously documented assessment. Patient and/or bp family updated on plan of care and expected duration. Pain level reassessed. ADMIT IN PROCESS, FAMILY LEAVING. TARA SALINAS [phone] bp
[2020-08-11 15:12] LABS: Protime INR 1.61
[2020-08-11 15:25] LABS: Albumin 4.1 g/dL (3.4-5.0); Bilirubin Direct 0.5 mg/dL (0-0.2); Bilirubin Total 2.6 mg/dL (0.2-1.0); Potassium 3.9 mmol/L (3.5-5.1); Protein, Total 7.8 g/dL (6.4-8.2); Troponin (Emerg Dept Use Only) 0.02 ng/mL (0.0-0.045)
--- NOTE | 2020-08-11 15:38 | P.HP ---
Certification for Inpatient Patient admitted to: Inpatient With expected LOS: >2 Midnights Patient will require the following post-hospital care: None Practitioner: I am a practitioner with admitting privileges, knowledge of patient current condition, hospital course, and medical plan of care. Services: Services provided to patient in accordance with Admission requirements found in Title 42 Section 412.3 of the Code of Federal Regulations Patient History Date of Service: 08/11/20 Reason for admission: Patient with numerous falls over the last few days History of Present Illness: Patient is an 80-year-old gentleman who came to the hospital after falling numerous times at home. Patient actually come into the emergency room a few days ago with similar complaints and was felt to have a urinary tract infection at that time. Patient been having some weakness and was very lethargic throughout the day. He had also fallen on his left knee and having a lot of difficulty walking after that. He had a stroke in the past and since then he occasionally has hallucinations with his vascular dementia. Today he was sitting at the edge of the bed and he fell from the edge of the bed. At that time the family decided to bring him into the emergency room for further evaluation. In the emergency room he had an MRI of the brain performed which revealed patient had an acute infarct. It was not 8 mm infarct in the deep white matter of the parietal lobe. Patient has atrial fibrillation. He is on anticoagulation with Eliquis which will have to be held. At this time, will continue anti-platelet therapy. Patient long-term prognosis is poor. Will discuss with the family long-term plan of care. I am not sure if patient will be safe to return home unless he has supervision 01/04 with a caregiver. At this time, patient will be admitted to the hospital for further evaluation. Allergies No Known Allergies Allergy (Verified 04/16/18 11:53) Home Medications: Lisinopril [Zestril] 40 mg PO DAILY 05/26/20 Metformin HCl 1,000 mg PO BID 05/26/20 Metoprolol Succinate [Toprol Xl] 100 mg PO DAILY 05/26/20 Apixaban [Eliquis] 5 mg PO BID 07/07/20 Brimonidine Tartrate/Timolol [Combigan 0.2%-0.5% Eye Drops] 1 gtt EACH EYE BID 07/07/20 Insulin Glargine Human [Lantus*] 5 unit SQ BIDP PRN 07/07/20 Memantine HCl [Namenda*] 10 mg PO BID 07/07/20 Sitagliptin Phosphate [Januvia] 50 mg PO DAILY 07/07/20 Travoprost [Travatan Z*] 1 gtt EACH EYE BEDTIME 07/07/20 glipiZIDE [Glipizide] 5 mg PO BID 07/07/20 Apixaban [Eliquis] 5 mg PO BID tablet 07/14/20 Atorvastatin Calcium [Lipitor] 40 mg PO BEDTIME #30 tab 07/14/20 Folic Acid 1 mg PO DAILY #30 tablet 07/14/20 Magnesium Oxide [Mag 0X*] 400 mg PO DAILY #30 tab 07/14/20 Memantine HCl [Namenda*] 10 mg PO BID tablet 07/14/20 Metoprolol Tartrate [Lopressor*] 100 mg PO DAILY tab 07/14/20 - Past Medical/Surgical History Diabetic: Yes -: Diabetes mellitus type 2 -: Hypertension -: BPH -: Athersclerosis -: Melanoma -: Hyperlipidemia -: Atrial fibrillation on chronic anticoagulation therapy -: mini stroke -: Prostate Surgery -: Hernia Repair -: Open Heart Sx -: Carotid Artery Stent -: 7x stents -: 2x melanoma removal on head Psychosocial/ Personal History: Patient lives at home with his and granddaughter - Family History Father Family History: Reviewed- Non-Contributory - Social History Alcohol use: No Review of Systems 10-point ROS is otherwise unremarkable Physical Examination - Vital Signs Temperature: 97.2 F Blood Pressure: 154/113 Pulse: 74 Respirations: 16 Pulse Ox (%): 95 - Physical Exam General: Confused HEENT: Atraumatic, Normocephalic Neck: Supple, 2+ carotid pulse no bruit, JVD not distended, No Thyromegaly Respiratory: Clear to auscultation bilaterally, Normal air movement Cardiovascular: Irregular heart rate/rhythm Gastrointestinal: Normal bowel sounds, Soft and benign, Non-distended Musculoskeletal: No clubbing, No swelling Integumentary: No rashes Neurological: Cranial nerves 3-12 intact, Normal reflexes 2+, Abnormal gait, Abnormal speech, Abnormal strength - Studies Laboratory Data (last 24 hrs) 08/11/20 14:45: PT 18.8 H, INR 1.61 08/11/20 14:45: WBC 10.9, Hgb 12.9 L, Hct 37.9 L, Plt Count 249 08/11/20 14:45: Sodium 142, Potassium 3.9, BUN 23 H, Creatinine 1.16, Glucose 122 H, Magnesium 2.0, Total Bilirubin 2.6 H, AST 11 L, ALT 14, Alkaline Phosphatase 91 Assessment & Plan - Problems (Diagnosis) (1) Acute CVA (cerebrovascular accident) Current Visit: No Status: Acute - Plan 1. Physical therapy evaluation 2. Speech therapy evaluation 3. Anti-platelet therapy and statin therapy 4. Lipid profile in the morning 5. MRI of the brain with acute 8 mm infarct in the deep white matter of the right parietal lobe/echocardiogram/carotid Doppler pending 6. Physically patient is confused and weak. He is probably not safe to return home at this time. Will look at inpatient rehab or intermediate. He has a lot of comorbidities as well and will talk with family regarding long-term plan of care 7. Neurology consultation pending 8. Permissive hypertension and gradual blood pressure control 9. Neuro checks every 4 hr 10. IV antibiotics 11. GI and DVT prophylaxis Discharge Plan: Detention Plan to discharge in: Greater than 2 days - Advance Directives Does patient have a Living Will: Yes Does patient have a Durable POA for Healthcare: Yes - Code Status/Comfort Care Code Status Assessed: Yes Code Status: Full Code Critical Care: No Time Spent Managing PTS Care (In Minutes): 45
[2020-08-11] MEDS ORDERED: THIAMINE 200 MG/2 ML INJ ONE (15:45)
[2020-08-11] MEDS ORDERED: NA CHLORIDE 0.9% 100 ML ONE (15:46)
[2020-08-11] MEDS ORDERED: FOLIC ACID 5 MG/ML VIAL ONE (15:47)
[2020-08-11] MEDS: NA CHLORIDE 0.9% 1,000 ML IV SCH (16:00)
[2020-08-11] MEDS: ENOXAPARIN 40 MG/0.4 ML SQ SCH (17:00)
[2020-08-11] MEDS ORDERED: ENOXAPARIN 40 MG/0.4 ML SQ ONE (18:39)
[2020-08-11] MEDS ORDERED: NA CHLORIDE 0.9% 1,000 ML ONE (18:39)
[2020-08-11 19:05] VITALS: BMI 25.1
[2020-08-11] MEDS: ATORVASTATIN 80 MG TAB PO SCH (21:03)
[2020-08-11 23:00] LABS: Urine Appearance CLEAR; Urine Bilirubin NEGATIVE (NEG); Urine Blood 2+ (NEG); Urine Color YELLOW; Urine Glucose TRACE (NEG); Urine Protein 1+ (NEG); Urine Specific Gravity 1.015 (1.005-1.030); Urine pH 6.5 (5.0-7.0)
[2020-08-11 23:21] LABS: Urine Bacteria 20-50 /HPF (NONE SEEN); Urine Mucus 1+ /HPF (NONE SEEN); Urine RBC 20-50 /HPF (NONE SEEN)
[2020-08-11] MEDS ORDERED: LORazepam 2 MG/ML VIAL IV ONE (23:53)
[2020-08-12] MEDS ORDERED: LORazepam 2 MG/ML VIAL ONE (00:11)
[2020-08-12] MEDS ORDERED: WATER FOR INJ,STERILE 10 ML IM PRN (00:46)
[2020-08-12] MEDS ORDERED: ZIPRASIDONE MESYLA 20 MG/VIAL IM ONE (00:46)
[2020-08-12 06:05] LABS: Absolute Lymphocytes (CBC) 1.7 K/uL (0.7-4.9); Basophils % 1.7 % (0-1.3); Hematocrit 39.9 % (39.6-49.0); Lymphocytes % 13.5 % (15.3-44.8); MPV 9.7 fL (7.6-11.3); RBC Red Blood Cell Count 4.27 M/uL (4.33-5.43)
[2020-08-12 06:11] LABS: Protime INR 1.35
[2020-08-12 06:22] LABS: Bilirubin Total 3.2 mg/dL (0.2-1.0); Magnesium 1.6 mg/dL (1.8-2.4); Phosphorus 2.6 mg/dL (2.5-4.9); Potassium 3.6 mmol/L (3.5-5.1); Protein, Total 8.1 g/dL (6.4-8.2)
[2020-08-12] MEDS ORDERED: POTASSIUM CL SA 10 MEQ TAB PO ONE (07:07)
[2020-08-12] MEDS ORDERED: MAGNESIUM SULFATE 1 gm IVPB 1 GM/100 ML BAG IV ONE ×2 (07:07→11:23)
[2020-08-12] MEDS: ASPIRIN EC 81 MG TAB PO SCH (09:00)
[2020-08-12] MEDS: CLOPIDOGREL 75 MG TABLET PO SCH (09:00)
[2020-08-12] MEDS: NA CHLORIDE 0.9% 1,000 ML IV SCH ×2 (11:15→16:45)
[2020-08-12] MEDS: ENOXAPARIN 40 MG/0.4 ML SQ SCH (11:16)
[2020-08-12] MEDS: CEFTRIAXONE/SWI 1gm 1 GM/10 ML SYR IV SCH (11:16)
[2020-08-12] MEDS ORDERED: CEFTRIAXONE 1000 MG/VIAL ONE (11:22)
[2020-08-12] MEDS ORDERED: CLOPIDOGREL 75 MG TABLET ONE (11:22)
[2020-08-12] MEDS ORDERED: ASPIRIN EC 81 MG TAB PO ONE (11:22)
[2020-08-12] MEDS ORDERED: KCL 20 MEQ/100 mL IVPB 20 MEQ/100 ML BAG IV ONE (11:23)
[2020-08-12] MEDS ORDERED: ENOXAPARIN 40 MG/0.4 ML SQ ONE (11:23)
[2020-08-12] MEDS ORDERED: NA CHLORIDE 0.9% 1,000 ML ONE (11:23)
[2020-08-12] MEDS ORDERED: CEFTRIAXONE/SWI 1gm 1 GM/10 ML SYR ONE (11:23)
[2020-08-12] MEDS ORDERED: KCL 20 MEQ/100 mL IVPB 20 MEQ/100 ML BAG IV SCH (12:00)
--- NOTE | 2020-08-12 13:38 | EKG ---
Test Date: 2020-08-11 Test Time: 20:55:51 Gemologist: ANSHUL MEASUREMENT RESULTS: Intervals: Rate: 58 IN: 184 QRSD: 96 QT: 410 QTc: 402 [place]: P: 68 IN: 184 QRS: 73 T: 55 INTERPRETIVE STATEMENTS: Sinus bradycardia Minimal voltage criteria for LVH, may be normal variant Borderline ECG Compared to ECG 08/11/2020 14:51:02 Left ventricular hypertrophy now present Atrial fibrillation no longer present Ventricular premature complex(es) no longer present ST (T wave) deviation no longer present Possible ischemia no longer present Electronically Signed On 08-12-20 13:37:01 RELOCATION MANAGER by Vernon Oleary
--- NOTE | 2020-08-12 14:32 | ECHO ---
HEIGHT: 5 ft 10 in WEIGHT: 175 lb 0 oz DATE OF STUDY: 08/12/[address]: Greg Perry MD 2-DIMENSIONAL: YES M.MODE: YES DOPPLER: YES COLOR FLOW: YES TDS: PORTABLE: DEFINITY: BUBBLE STUDY: DIAGNOSIS: STROKE CARDIAC HISTORY: CATHERIZATION: YES SURGERY: YES PROSTHETIC VALVE: NO PACEMAKER: NO MEASUREMENTS (cm) DIASTOLIC (NORMALS) SYSTOLIC (NORMALS) IVSd 1.2 (0.6-1.2) LA Diam 3.3 (1.9-4.0) LVEF 25% LVIDd 5.2 (3.5-5.7) LVIDs 4.6 (2.0-3.5) %FS 12% LVPWd 1.1 (0.6-1.2) Ao Diam 3.3 (2.0-3.7) 2 DIMENSIONAL ASSESSMENT: RIGHT ATRIUM: NORMAL LEFT ATRIUM: NORMAL RIGHT VENTRICLE: NORMAL LEFT VENTRICLE: NORMAL SIZE TRICUSPID VALVE: NORMAL MITRAL VALVE: MITRAL ANNULAR CALCIFICATION PULMONIC VALVE: NORMAL AORTIC VALVE: SCLEROSIS PERICARDIAL EFFUSION: NONE AORTIC ROOT: NORMAL LEFT VENTRICULAR WALL MOTION: SEVERE GLOBAL HYPOKINESIS DOPPLER/COLOR FLOW: MILD MITRAL AND TRICUSPID REGURGITATION. COMMENTS: MILD MITRAL AND TRICUSPID REGURGITATION. SEVERE GLOBAL HYPOKINESIS. EJECTION FRACTION 20-25%. MITRAL ANNULAR CALCIFICATION. AORTIC SCLEROSIS. TECHNOLOGIST: SHAREE STILL
--- NOTE | 2020-08-12 14:43 | RAD REPORT ---
EXAM DESCRIPTION: RAD - Barium Swallow Modified - 08/12/2020 2:13 pm CLINICAL HISTORY: dysphagia, cough after drinking COMPARISON: Barium Swallow Modified dated 07/08/2020 TECHNIQUE: The patient was given liquid, semi-solid and solid forms of barium. Lateral view fluorosc opic imaging was performed in conjunction with speech pathology service. FINDINGS: Pharyngeal residue: severe vallecular, moderate pyriform, mild posterior wall Other : severe oropharyngeal weakness , low tone , good airway protection Total fluoroscopy time: 2 minutes and 19 seconds
[2020-08-12] MEDS: ATORVASTATIN 80 MG TAB PO SCH (20:05)
[2020-08-12] MEDS: HYDRALAZINE HCL 20 MG/ML VIAL IV PRN (20:14)
--- NOTE | 2020-08-12 22:16 | CON ---
Reason For Consultation: Stroke. History Of Present Illness: Ms Abisai Salinas is an 80-year-old right-handed patient with multiple medical problems, including diabetes mellitus type 2, hypertension, arthrosclerosis, atrial fibrillation on chronic anticoagulation, prior strokes, who comes in after a few days of worsening ga it and falls. He also was lethargic and less interactive and apparently had hallucinations, which ma y be related to actually chronic vascular dementia. In the emergency room, he was evaluated by head and C-spine CT scan and trauma series. No acute intracranial abnormalities were identified. No frac tures were identified in the cervical region or any other area. However, brain MRI showed an 8 mm ac kasaan infarct in the right parietal lobe deep white matter. He had a barium swallow evaluation, which showed severe multilocation, including the vallecular pyriformis and posterior wall of the oropharynx , weakness with however good airway protection. This is reportedly with multiple consistencies. His echocardiogram showed a severely low ejection fraction of 25% with severe global hypokinesis. The p atient was taken actually in the emergency room, was placed on Lovenox for DVT prophylaxis. He is on Plavix and aspirin and although the history of atrial fibrillation, he was not on anticoagulation wh en coming to the hospital. He was also placed on Lipitor 80 mg at bedtime. Past Medical History: Includes prostate hypertrophy, melanoma, dyslipidemia. Past Surgical History: Prostate surgery, hernia repair, carotid artery stent placement. He has had 7 stents between heart and carotids and melanoma removed from head multiple times as twice. Social History: Patient lives with and granddaughter. Family History: Noncontributory. Allergies: NO KNOWN DRUG ALLERGIES. Medications: At home, Zestril 40 mg daily, metformin 1000 mg twice a day, Toprol-XL 100 mg daily, El iquis 5 mg twice daily, which apparently was not compliant with, Combigan 0.1 to 0.5 mg eye drops eac h eye twice daily, Lantus 5 units subcutaneously twice daily, Namenda 10 mg twice daily, Januvia ____ daily, Travatan Z 1 drop in each eye at bedtime, glipizide 5 mg twice daily, Lipitor 40 mg at bedtime, folate 1 mg daily, magnesium oxide 400 mg daily, and metoprolol 100 mg daily. Review of Systems: At this point, the patient is unable to give a clear review of systems. He does answer yes or no to most questions, but with chart review, there were no recent fevers or chills, myalgias or arthralgias , rash, headache, weight change, or any active psychiatric issues. Physical Examination: Vital Signs: Blood pressure 135/67, pulse 63, respiratory rate 16, temperature 97.2, oxygen saturati on 95% to 98% on room air, weight 175 pounds, height 5 feet 10 inches, BMI 25.1. General: Mr. Salinas is lying in bed. He is somewhat sedated. His mouth is open, but when stimulate d, he is arousable and does attempt to follow commands appropriately. He does track visually very we ll, has good visual threat response, and can close his mouth on command. He does have good air movem ent. Abdomen: Soft. Extremities: Show no significant edema or cyanosis. He has bruising in the forearms. Neurological: He is somewhat sedated, had received earlier today Ativan along with Geodon. In terms of cranial nerve examination, he has no obvious focal deficits in terms of visual threat response or facial asymmetry, appears to hear equally well on both sides. Responded well to touch in the face, denying any asymmetries and sensation bilaterally. His motor examination is actually diffusely weak, although very difficult to assess. He did not hold either upper or lower extremities on their own i n the air. His hands and legs did fall completely down when they were passively lifted up and he kin d of barely moved the legs bilaterally off his bed. He did report similar responses in terms of touc h in the arms and the legs, unable to assess his coordination. His tone was normal and symmetric ref lexes. He attempted to be ambulated, but did not maintain posture with slide back down to either paul e or to the back. Laboratory Studies: Complete blood count with differential on admission was 10.9 and today 12.7. WB Cs: Neutrophils today 73.2, hemoglobin 13.7, INR 1.35. Chemistries are unremarkable. His glucose r danna 122 to 142, lactic acid 1.2. Procalcitonin less than 0.05. Liver function studies are normal. Magnesium for hydration is 1.6 and total bilirubin is elevated at 3.2. His total cholesterol 139, L DL cholesterol 72, HDL cholesterol 70, cholesterol to HDL ratio 3.48. Urinalysis shows 2+ blood, 1+ ketones, 20 to 50 bacteria, negative esterase, negative nitrites. His electrocardiogram shows sinus bradycardia. Assessment And Plan: Ms. Salinas is an 80-year-old patient with an 8 mm acute right parietal white ma tter ischemic stroke; however, he is sedated after receiving benzodiazepines and neuroleptic medicati ons, but does not appear to have a focal weakness on his left side as would be apparent. He does hav e diffuse weakness in both upper and lower extremities. The patient would likely show some improved ability to move the extremities once more awake and the affects of his sedating medications have been washed out. He should be admitted for observation and will have physical therapy re-attempt ambulat ing the patient in the morning. At this point, continue the aspirin, Plavix, folic acid, high-dose s tatin, put on telemetry to rule out atrial fibrillation and he should have aggressive physical, occup ational, and speech therapy once awake and alert. JUSTIN/SHONNA Voice ID: [id number] Report ID: [id number]
--- NOTE | 2020-08-12 22:29 | CON ---
Date of Consultation: 08/12/2020 Reason For Consultation: Acute CVA status post fall. History of atrial fibrillation. History Of Present Illness: Mr. Salinas is an 80-year-old male, who came in with fall, altered mental status. No documented chest pain or syncope. There were no documentation of fever, chills, nausea, vomiting, PND, orthopnea, or pedal edema. His has stated that he is having difficulty with eva e care despite home health daily visits. He does have a history of atrial fibrillation, diabetes, de mentia, hypertension. Allergies: NONE. Review of Systems: Negative. Social History: Unremarkable. Family History: Noncontributory. Medications: At home include lisinopril, metformin, metoprolol, insulin, Eliquis, atorvastatin, delgado ntine. Physical Examination: Vital Signs: Blood pressure was 184/87, pulse was 71, respiratory rate 18, temperature 97.8, and pul se oximetry on room air was 97%. HEENT: Negative. Neck: Supple. No bruit. Chest: Clear. Cardiac: Revealed atrial fibrillation. Abdomen: Benign. Extremities: Revealed no clubbing, cyanosis, or edema. Diagnostic Data: EKG showed atrial fibrillation. Creatinine is 0.84. White count of 12,000, hemogl obin of 13.7. His BNP was 6678. His troponin was 0.02. His brain MRI showed 8 mm acute infarct michael p within the white matter in the right parietal lobe. Chest x-ray was negative. EKG shows sinus bra dycardia and LVH. Echocardiogram, which was done before I saw him showed mild mitral and tricuspid r egurgitation, severe global hypokinesis, and ejection fraction 20% to 25%. Mitral annular calcificat ion and aortic sclerosis. Impression And Plan: 1.Acute cerebrovascular accident in the right parietal lobe. 2.Paroxysmal atrial fibrillation. 3.Diabetes. 4.Dementia. 5.Hypertension. 6.Acute systolic congestive heart failure. I will discuss the case further with Dr. Perry. The patient is already on Eliquis at home and we will discuss the use of that. He is definitely at higher risk from the Eliquis, especially with new onse t CVA. It may be best to wait for 4 to 6 weeks before resuming the Eliquis, so he does not have any bleed. Neurological consultation has been obtained and I will leave the anticoagulation issue to Dr. Rodríguez. He is definitely at high risk of bleeding because of the multiple falls in his overall co ndition. Regarding his congestive heart failure, I think patient should be on CHANDA inhibitor, metopro lol, Lasix, salt restriction, and fluid restriction. He is not a candidate for any invasive cardiac workup at this point. We should definitely see him as an outpatient once he is discharged to deal wi th his CHF and his atrial fibrillation and his anticoagulation status. I will discuss the case [facility] with Dr. Perry. I think for now aspirin and Plavix may be the way to go. KARLA/SHONNA Voice ID: [id number] Report ID: [id number]
[2020-08-13] MEDS: NA CHLORIDE 0.9% 1,000 ML IV SCH ×2 (03:03→20:27)
[2020-08-13] MEDS: ACETAMINOPHEN 325 MG TABLET PO PRN ×2 (06:42→12:01)
[2020-08-13 07:10] LABS: Absolute Lymphocytes (CBC) 1.3 K/uL (0.7-4.9); Basophils % 0.8 % (0-1.3); Hematocrit 38.6 % (39.6-49.0); Lymphocytes % 10.6 % (15.3-44.8); MPV 9.6 fL (7.6-11.3); RBC Red Blood Cell Count 4.09 M/uL (4.33-5.43)
[2020-08-13 07:12] LABS: Protime INR 1.35
[2020-08-13 07:17] LABS: Magnesium 1.8 mg/dL (1.8-2.4); Phosphorus 2.6 mg/dL (2.5-4.9); Potassium 3.6 mmol/L (3.5-5.1)
[2020-08-13] MEDS ORDERED: MAGNESIUM SULFATE 1 gm IVPB 1 GM/100 ML BAG IV ONE (07:20)
[2020-08-13] MEDS: ENOXAPARIN 40 MG/0.4 ML SQ SCH (07:38)
[2020-08-13] MEDS: ASPIRIN EC 81 MG TAB PO SCH (07:38)
[2020-08-13] MEDS: CEFTRIAXONE/SWI 1gm 1 GM/10 ML SYR IV SCH (07:38)
[2020-08-13] MEDS: CLOPIDOGREL 75 MG TABLET PO SCH (07:39)
[2020-08-13] MEDS ORDERED: KCL 20 MEQ/100 mL IVPB 20 MEQ/100 ML BAG IV SCH (08:00)
[2020-08-13] MEDS: HYDRALAZINE HCL 20 MG/ML VIAL IV PRN (12:00)
--- NOTE | 2020-08-13 20:05 | EKG ---
Test Date: 2020-08-11 Test Time: 14:51:02 End Stapler: JOHN MEASUREMENT RESULTS: Intervals: Rate: 70 CT: QRSD: 102 QT: 422 QTc: 455 [place]: P: CT: QRS: 67 T: -48 INTERPRETIVE STATEMENTS: Atrial fibrillation with premature ventricular or aberrantly conducted complexes ST & T wave abnormality, consider inferior ischemia or digitalis effect ST & T wave abnormality, consider anterolateral ischemia or digitalis effect Abnormal ECG Compared to ECG 08/08/2020 20:29:30 Ventricular premature complex(es) now present Possible ischemia now present Prolonged QT interval no longer present ST (T wave) deviation still present Electronically Signed On 08-13-20 20:02:55 STEEL MELTER by Vernon Oleary
[2020-08-13] MEDS: ATORVASTATIN 80 MG TAB PO SCH (20:27)
--- NOTE | 2020-08-13 20:52 | P.PN ---
Subjective Date of Service: 08/12/20 Patient is still lethargic and confused. Patient Geodon and Ativan last night. Will reassess in once this is out of his system. MRI did reveal a small 8 mm stroke. Patient's echocardiogram and carotid Doppler pending. Patient will need [facility] facility for inpatient rehab placement. The is wanting him to go to an inpatient rehab. However, he will need to comply with the physical therapy the suggestions. We will see how he does over the next couple of days. Review of Systems is unable to be obtained Physical Examination - Vital Signs Temperature: 97.9 F Blood Pressure: 155/70 Pulse: 90 Respirations: 18 Pulse Ox (%): 97 - Physical Exam General: Confused Respiratory: Clear to auscultation bilaterally, Normal air movement Cardiovascular: Regular rate/rhythm, Normal S1 S2, Systolic murmur Gastrointestinal: Normal bowel sounds, Soft and benign, Non-distended Musculoskeletal: No clubbing, Swelling Neurological: Other ( Patient lethargic and not really following commands.) Assessment & Plan - Problems (Diagnosis) (1) Acute CVA (cerebrovascular accident) Current Visit: No Status: Acute - Plan Continue with current plan of care as mentioned below 1. Physical therapy evaluation pending when patient more awake and alert 2. Speech therapy evaluation; patient lethargic and probably need to reassess prior to assigning diet. Patient right now on a pureed diet 3. Anti-platelet therapy and statin therapy; spoke to Cardiology and since patient is a fall risk holding off on anticoagulation at this time. Continue with dual anti-platelet therapy 4. Lipid profile pending 5. MRI of the brain with acute 8 mm infarct in the deep white matter of the right parietal lobe/echocardiogram/carotid Doppler pending 6. Physically patient is confused and weak. He is probably not safe to return home at this time. Will look at inpatient rehab or [facility]. He has a lot of comorbidities as well and will talk with family regarding long-term plan of care 7. Neurology consultation appreciated 8. Permissive hypertension and gradual blood pressure control 9. Neurochecks every 4 hr 10. IV antibiotics 11. GI and DVT prophylaxis Discharge Plan: Other Plan to discharge in: Greater than 2 days - Advance Directives Does patient have a Living Will: Yes Does patient have a Durable POA for Healthcare: Yes - Code Status/Comfort Care Code Status: Full Code Critical Care: No Time Spent Managing PTS Care (In Minutes): 35
--- NOTE | 2020-08-13 20:57 | P.PN ---
Subjective Date of Service: 08/13/20 Patient is much more awake and alert at this time. is at bedside. Patient tolerating pureed diet well. Await physical therapy and speech therapy to reassess patient. Hopefully, he can get out of bed and ambulate well. Echocardiogram showed ejection fraction of 20%. If patient's strength improves may reconsider anticoagulation but at this time continue with anti-platelet therapy as patient is a high fall risk. Review of Systems 10-point ROS is otherwise unremarkable Physical Examination - Vital Signs Temperature: 97.9 F Blood Pressure: 155/70 Pulse: 90 Respirations: 18 Pulse Ox (%): 97 - Physical Exam General: Alert, In no apparent distress, Oriented x2 Respiratory: Clear to auscultation bilaterally, Normal air movement Cardiovascular: Regular rate/rhythm, Normal S1 S2, Systolic murmur Gastrointestinal: Normal bowel sounds, Soft and benign, Non-distended, No tenderness Musculoskeletal: No clubbing, No tenderness, Swelling Neurological: Sensation intact, Cranial nerves 3-12 intact Lymphatics: No axilla or inguinal lymphadenopathy - Studies Medications List Reviewed: Yes Assessment & Plan - Problems (Diagnosis) (1) Acute CVA (cerebrovascular accident) Current Visit: No Status: Acute (2) Cardiomyopathy Current Visit: Yes Status: Acute (3) Atrial fibrillation Current Visit: No Status: Acute (4) Benign prostatic hyperplasia Onset Date: 12/31/17 Current Visit: No Status: Acute (5) Carotid artery disease Onset Date: 12/31/17 Current Visit: No Status: Acute (6) Diabetes mellitus with hyperglycemia Onset Date: 12/31/17 Current Visit: No Status: Acute (7) Essential hypertension Onset Date: 12/31/17 Current Visit: No Status: Acute (8) Hyperlipidemia Current Visit: No Status: Acute - Plan Continue with current plan of care as mentioned below 1. Patient doing very little with physical therapy at this time. Will encourage to increase his activity. Spoke to was at bedside 2. Speech therapy evaluation appreciated. Patient on pureed diet 3. Anti-platelet therapy and statin therapy; hold anticoagulation secondary to fall risk 4. continue statin therapy 5. IV antibiotics 6. GI and DVT prophylaxis Discharge Plan: Other Plan to discharge in: Greater than 2 days - Advance Directives Does patient have a Living Will: Yes Does patient have a Durable POA for Healthcare: Yes - Code Status/Comfort Care Code Status: Full Code Critical Care: No Time Spent Managing PTS Care (In Minutes): 35
[2020-08-14] MEDS: ACETAMINOPHEN 325 MG TABLET PO PRN ×2 (03:54→12:59)
[2020-08-14] MEDS: HYDRALAZINE HCL 20 MG/ML VIAL IV PRN (04:13)
[2020-08-14 06:10] LABS: Protime INR 1.43
[2020-08-14 06:14] LABS: BUN Blood Urea Nitrogen 14 mg/dL (7-18); Bicarbonate 23 mmol/L (21-32); Glucose Level 151 mg/dL (74-106); Magnesium 1.8 mg/dL (1.8-2.4); Potassium 3.1 mmol/L (3.5-5.1); Sodium Level 142 mmol/L (136-145)
[2020-08-14] MEDS ORDERED: POTASSIUM 25 MEQ EFFERV TAB PO ONE (06:17)
[2020-08-14] MEDS ORDERED: MAGNESIUM SULFATE 1 gm IVPB 1 GM/100 ML BAG IV ONE (06:18)
[2020-08-14] MEDS: CEFTRIAXONE/SWI 1gm 1 GM/10 ML SYR IV SCH (09:20)
[2020-08-14] MEDS: ASPIRIN EC 81 MG TAB PO SCH (09:20)
[2020-08-14] MEDS: CLOPIDOGREL 75 MG TABLET PO SCH (09:21)
[2020-08-14] MEDS: ENOXAPARIN 40 MG/0.4 ML SQ SCH (09:30)
[2020-08-14] MEDS: NA CHLORIDE 0.9% 1,000 ML IV SCH (10:40)
[2020-08-14] MEDS ORDERED: dexAMETHasone 4 MG/ML VIAL IV ONE (12:28)
[2020-08-14] MEDS ORDERED: dexAMETHasone 4 MG/ML VIAL ONE (12:45)
[2020-08-14 13:08] LABS: BUN Blood Urea Nitrogen 16 mg/dL (7-18); Bicarbonate 22 mmol/L (21-32); Glucose Level 219 mg/dL (74-106); Potassium 4.1 mmol/L (3.5-5.1); Sodium Level 141 mmol/L (136-145)
[2020-08-14] MEDS: ATORVASTATIN 80 MG TAB PO SCH (20:36)
[2020-08-14] MEDS ORDERED: D50W 25 GM/50 ML SYRINGE IV PRN (20:43)
[2020-08-14] MEDS ORDERED: GLUCAGON 1 MG/VIAL IM PRN (20:43)
[2020-08-14] MEDS: lisinopriL 10 MG TAB PO SCH (21:00)
[2020-08-14] MEDS: FUROSEMIDE 20 MG/ 2ML VIAL IV SCH (21:00)
[2020-08-14] MEDS: POTASSIUM CL SA 10 MEQ TAB PO SCH (21:00)
[2020-08-14] MEDS ORDERED: ATORVASTATIN 40 MG TAB PO SCH (21:00)
[2020-08-14] MEDS: carvediloL 6.25 MG TAB PO SCH (21:00)
[2020-08-14] MEDS: MEMANTINE HCL 10 MG TABLET PO SCH (21:51)
[2020-08-15 05:55] LABS: Basophils % 0.7 % (0-1.3); Hematocrit 36.5 % (39.6-49.0); Lymphocytes % 17.1 % (15.3-44.8); MPV 8.7 fL (7.6-11.3); RBC Red Blood Cell Count 3.95 M/uL (4.33-5.43)
[2020-08-15 06:17] LABS: BUN Blood Urea Nitrogen 13 mg/dL (7-18); Bicarbonate 25 mmol/L (21-32); Glucose Level 172 mg/dL (74-106); Magnesium 1.9 mg/dL (1.8-2.4); NT PRO-BNP 8347 pg/mL (<450); Phosphorus 1.9 mg/dL (2.5-4.9); Potassium 3.6 mmol/L (3.5-5.1); Sodium Level 141 mmol/L (136-145)
[2020-08-15 06:23] LABS: Protime INR 1.27
--- NOTE | 2020-08-15 06:34 | P.PN ---
Subjective Date of Service: 08/14/20 patient is gradually improving. Patient got out of bed and work with physical therapy. Patient does have some myalgias to the right neck region as well as some pain on the left knee from where he fell. Will give him a 1 time dose of anti-inflammatory to see if this alleviates his symptoms. He was sleeping on his side the other day and he states that he woke up with his neck pain. It is better today than yesterday. Otherwise, he is doing better working with physical therapy and interacting more appropriately. His would like for him to go to inpatient rehab. If he is not accepted there than she would prefer correction facility placement. Review of Systems 10-point ROS is otherwise unremarkable Physical Examination - Vital Signs Temperature: 98.4 F Blood Pressure: 150/70 Pulse: 103 Respirations: 18 Pulse Ox (%): 96 - Physical Exam General: Alert, Oriented x1, Demented HEENT: Atraumatic, Normocephalic Neck: Other ( Myalgia to the right side of his neck) Respiratory: Clear to auscultation bilaterally, Normal air movement Cardiovascular: Regular rate/rhythm, Normal S1 S2 Gastrointestinal: Normal bowel sounds, Soft and benign, Non-distended, No tenderness, No rebound, No guarding Musculoskeletal: No clubbing, No swelling, No tenderness Neurological: Normal strength at 5/5 x4 extr, Sensation intact, Cranial nerves 3-12 intact - Studies Medications List Reviewed: Yes Assessment & Plan - Problems (Diagnosis) (1) Acute CVA (cerebrovascular accident) Current Visit: No Status: Acute (2) Cardiomyopathy Current Visit: Yes Status: Acute (3) Atrial fibrillation Current Visit: No Status: Acute (4) Benign prostatic hyperplasia Onset Date: 12/31/17 Current Visit: No Status: Acute (5) Carotid artery disease Onset Date: 12/31/17 Current Visit: No Status: Acute (6) Diabetes mellitus with hyperglycemia Onset Date: 12/31/17 Current Visit: No Status: Acute (7) Essential hypertension Onset Date: 12/31/17 Current Visit: No Status: Acute (8) Hyperlipidemia Current Visit: No Status: Acute (9) Torticollis Current Visit: Yes Status: Acute (10) Left knee pain Current Visit: Yes Status: Acute - Plan Continue with current plan of care as mentioned below 1. Physical therapy evaluation appreciated. Patient was able to get out of bed and ambulate. He did walk side to side but transfer to the chair. He is able to follow commands as well. Hopefully, he continues to improve and can get him to inpatient rehab. 2. Speech therapy evaluation; Patient doing much better with his pureed diet. Continue monitoring and advanced diet as tolerated. 3. Anti-platelet therapy and statin therapy; spoke to Cardiology and since patient is a fall risk holding off on anticoagulation at this time. Continue with dual anti-platelet therapy. 4. LDL was 72. Continue statin therapy. 5. MRI of the brain with acute 8 mm infarct in the deep white matter of the right parietal lobe; Patient improving symptomatically. Possible inpatient rehab admission 6. patient with cardiomyopathy with an ejection fraction of 20%. Continue with cardiac meds including Lasix, carvedilol, CHANDA inhibitor. May add Aldactone to his regimen. Patient not a candidate for any further intervention at this time with his dementia and his recent CVA. If his strength improves we can consider anticoagulation but at this time with him being such a high fall risk we are withholding this after discussing the case with Cardiology. 7. Neurology consultation appreciated 8. We will go ahead and allow for gradual blood pressure control and resume his cardiac meds 9. to consider changing antibiotics to p.o. 10. continue with DVT prophylaxis Also gave him one time dose of an anti-inflammatory for his torticollis. Symptoms are improving. Discharge Plan: Other Plan to discharge in: 48 Hours - Advance Directives Does patient have a Living Will: Yes Does patient have a Durable POA for Healthcare: Yes - Code Status/Comfort Care Code Status: Full Code Critical Care: No Time Spent Managing PTS Care (In Minutes): 35
[2020-08-15] MEDS ORDERED: POTASS/SODIUM PHOSPHATE 1 PKT POWD.PACK PO SCH (07:00)
[2020-08-15] MEDS: CEFTRIAXONE/SWI 1gm 1 GM/10 ML SYR IV SCH (08:59)
[2020-08-15] MEDS ORDERED: POTASSIUM 25 MEQ EFFERV TAB PO ONE (09:00)
[2020-08-15] MEDS: MAGNESIUM OXIDE 400 MG TAB PO SCH (09:00)
[2020-08-15] MEDS: MEMANTINE HCL 10 MG TABLET PO SCH ×2 (09:00→20:10)
[2020-08-15] MEDS: ENOXAPARIN 40 MG/0.4 ML SQ SCH (09:00)
[2020-08-15] MEDS: FOLIC ACID 1 MG TABLET PO SCH (09:01)
[2020-08-15] MEDS: SITAGLIPTIN PHOS 100 MG TAB PO SCH (09:01)
[2020-08-15] MEDS: POTASS/SODIUM PHOSPHATE 1 PKT POWD.PACK PO SCH (09:01)
[2020-08-15] MEDS: ASPIRIN EC 81 MG TAB PO SCH (09:01)
[2020-08-15] MEDS: POTASSIUM CL SA 10 MEQ TAB PO SCH ×2 (09:02→20:10)
[2020-08-15] MEDS: FUROSEMIDE 20 MG/ 2ML VIAL IV SCH (09:02)
[2020-08-15] MEDS: CLOPIDOGREL 75 MG TABLET PO SCH (09:02)
[2020-08-15] MEDS: carvediloL 6.25 MG TAB PO SCH ×2 (09:02→20:16)
[2020-08-15] MEDS: INSULIN GLARGINE 100 UNITS/ML SQ SCH (09:03)
[2020-08-15] MEDS: INSULIN -REGULAR HUMAN 50 UNIT/0.5 ML ML SQ SCH ×4 (09:03→20:31)
[2020-08-15] MEDS: lisinopriL 10 MG TAB PO SCH ×2 (09:07→20:26)
--- NOTE | 2020-08-15 17:17 | P.PN ---
Subjective Date of Service: 08/15/20 Chief Complaint: Patient with numerous falls over the last few days Subjective: Improving Physical Examination - Vital Signs Temperature: 97.8 F Blood Pressure: 156/78 Pulse: 51 Respirations: 18 Pulse Ox (%): 98 - Physical Exam General: Alert, Cooperative HEENT: Atraumatic Neck: Supple Respiratory: Clear to auscultation bilaterally, Normal air movement Cardiovascular: Irregular heart rate/rhythm (AFib rate controlled) Gastrointestinal: Normal bowel sounds, No masses, No rebound, No guarding Neurological: Normal speech, Normal strength at 5/5 x4 extr, Normal tone, Normal affect - Studies Medications List Reviewed: Yes Assessment & Plan Discharge Plan: Other (Inpatient rehab) Plan to discharge in: 24 Hours Physician Review Additional Text: - Problems (Diagnosis) (1) Acute CVA (cerebrovascular accident) Current Visit: No Status: Acute (2) Cardiomyopathy Current Visit: Yes Status: Acute (3) Atrial fibrillation Current Visit: No Status: Acute (4) Benign prostatic hyperplasia Onset Date: 12/31/17 Current Visit: No Status: Acute (5) Carotid artery disease Onset Date: 12/31/17 Current Visit: No Status: Acute (6) Diabetes mellitus with hyperglycemia Onset Date: 12/31/17 Current Visit: No Status: Acute (7) Essential hypertension Onset Date: 12/31/17 Current Visit: No Status: Acute (8) Hyperlipidemia Current Visit: No Status: Acute (9) Torticollis Current Visit: Yes Status: Acute (10) Left knee pain Current Visit: Yes Status: Acute - Plan Continue with current plan of care as mentioned below 1. Continue with physical therapy. Await approval for inpatient rehab. Medications reviewed. Will need to discuss with cardiology and Neurology on recommendation for his anti coagulation therapy. Cardiology recommends no fu rther use of Eliquis due to his dementia and risk for fall and bleeding. Patient currently on aspirin and Plavix. Will discuss further with Neurology. 2. Continue with pureed diet 3. Anti-platelet therapy and statin therapy. cardiology recommends to discontinue Eliquis in the future due to high risk for bleeding and fall. Will discuss further with Neurology as above. 4. LDL was 72. Continue statin therapy. 5. patient with cardiomyopathy with an ejection fraction of 20%. Continue with cardiac meds including Lasix, carvedilol, CHANDA inhibitor. Will change Lasix to oral. Consider Aldactone in the future. 7. Neurology consultation appreciated 8. We will go ahead and allow for gradual blood pressure control and resume his cardiac meds 9. No evidence of infection. Will discontinue antibiotics. Time Spent Managing Pts Care (In Minutes): 55
[2020-08-15] MEDS: Travatan 0.004% Opth Sol OPTH SCH (20:10)
[2020-08-15] MEDS: ATORVASTATIN 80 MG TAB PO SCH (20:10)
[2020-08-15] MEDS: Brimonidine Tartrate/Timolol [Combigan 0.2%-0.5% Eye Drops] OPTH SCH (20:11)
[2020-08-15] MEDS ORDERED: Travatan 0.004% Opth Sol OPTH SCH (21:00)
[2020-08-15] MEDS ORDERED: Brimonidine Tartrate/Timolol [Combigan 0.2%-0.5% Eye Drops] OPTH SCH (21:00)
[2020-08-16 06:05] LABS: Phosphorus 3.1 mg/dL (2.5-4.9); Potassium 3.9 mmol/L (3.5-5.1)
[2020-08-16 06:22] LABS: Protime INR 1.26
[2020-08-16] MEDS: INSULIN -REGULAR HUMAN 50 UNIT/0.5 ML ML SQ SCH ×4 (07:30→20:22)
[2020-08-16] MEDS ORDERED: POTASSIUM CL SA 10 MEQ TAB PO ONE (08:00)
[2020-08-16] MEDS: INSULIN GLARGINE 100 UNITS/ML SQ SCH (08:18)
[2020-08-16] MEDS: carvediloL 6.25 MG TAB PO SCH ×2 (08:19→20:23)
[2020-08-16] MEDS: lisinopriL 10 MG TAB PO SCH ×2 (08:19→20:23)
[2020-08-16] MEDS: ENOXAPARIN 40 MG/0.4 ML SQ SCH (08:19)
[2020-08-16] MEDS: FUROSEMIDE 40 MG TABLET PO SCH ×2 (08:20→16:38)
[2020-08-16] MEDS: ASPIRIN EC 81 MG TAB PO SCH (08:20)
[2020-08-16] MEDS: MEMANTINE HCL 10 MG TABLET PO SCH ×2 (08:20→20:15)
[2020-08-16] MEDS: CLOPIDOGREL 75 MG TABLET PO SCH (08:21)
[2020-08-16] MEDS: SITAGLIPTIN PHOS 100 MG TAB PO SCH (08:21)
[2020-08-16] MEDS: POTASSIUM CL SA 10 MEQ TAB PO SCH ×2 (08:21→20:14)
[2020-08-16] MEDS: FOLIC ACID 1 MG TABLET PO SCH (08:21)
[2020-08-16] MEDS: Brimonidine Tartrate/Timolol [Combigan 0.2%-0.5% Eye Drops] OPTH SCH ×2 (08:22→20:16)
[2020-08-16] MEDS: MAGNESIUM OXIDE 400 MG TAB PO SCH (08:22)
--- NOTE | 2020-08-16 12:02 | P.PN ---
Subjective Date of Service: 08/16/20 Chief Complaint: Patient with numerous falls over the last few days Subjective: Other (Patient stable this time.) Physical Examination - Vital Signs Temperature: 98.1 F Blood Pressure: 144/78 Pulse: 69 Respirations: 16 Pulse Ox (%): 97 - Physical Exam General: Alert, In no apparent distress, Cooperative HEENT: Atraumatic Neck: Supple Respiratory: Clear to auscultation bilaterally Cardiovascular: Regular rate/rhythm Gastrointestinal: No tenderness, No masses, No rebound, No guarding Neurological: Normal affect, Abnormal strength (Still some weakness to the lower extremities.) - Studies Medications List Reviewed: Yes Assessment & Plan Discharge Plan: Other ([facility] facility or long-term care) Plan to discharge in: 48 Hours Physician Review Additional Text: Impression: Ataxia with falls secondary to 8 mm acute right parietal white matter ischemic stroke with history of vascular dementia Atrial fibrillation previously on chronic anti coagulation therapy Carotid arterial disease Chronic systolic CHF with ejection fraction 25% Diabetes mellitus type 2 insulin-dependent with hyperglycemia Hypertension Hyperlipidemia Left knee pain from fall BPH Plan: Ataxia with falls secondary to 8 mm acute right parietal white matter ischemic stroke with history of vascular dementia: Continue with current treatment plan. Patient on aspirin, Plavix, Lipitor, and blood pressure medication. Cardiology recommends no further use of Eliquis due to high risk for fall and bleeding. Will discuss further with Neurology. Continue physical therapy but reports still requiring increased assistance. Will order occupational therapy and speech therapy. Will need to discuss further with about plan of care including Re addressing advanced directives and the possibility of skilled placement. Patient likely not a candidate for inpatient rehab due to his increased assistance. If the patient does not increase his physical activity then the patient may not qualify for skilled placement and will therefore need to consider long-term placement. Will discuss all options of care with . Atrial fibrillation previously on chronic anti coagulation therapy: Patient on aspirin, Plavix. Continue current medications including carvedilol. Carotid arterial disease: Continue with current medication Chronic systolic CHF with ejection fraction 25%: Continue Lasix. Patient on lisinopril and carvedilol. 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 Accu-Cheks and sliding scale in place. Hypertension: Continue current blood pressure medication. Will monitor and adjust appropriately. Hyperlipidemia: Continue Lipitor Left knee pain from fall: Continue physical therapy. Will monitor closely. Time Spent Managing Pts Care (In Minutes): 55
[2020-08-16] MEDS: ACETAMINOPHEN 325 MG TABLET PO PRN (20:13)
[2020-08-16] MEDS: ATORVASTATIN 80 MG TAB PO SCH (20:14)
[2020-08-16] MEDS: Travatan 0.004% Opth Sol OPTH SCH (20:15)
[2020-08-17 06:06] LABS: Potassium 4.4 mmol/L (3.5-5.1)
[2020-08-17] MEDS: INSULIN -REGULAR HUMAN 50 UNIT/0.5 ML ML SQ SCH ×4 (07:30→22:38)
[2020-08-17] MEDS: Brimonidine Tartrate/Timolol [Combigan 0.2%-0.5% Eye Drops] OPTH SCH ×2 (08:36→21:00)
[2020-08-17] MEDS: ENOXAPARIN 40 MG/0.4 ML SQ SCH (08:36)
[2020-08-17] MEDS: POTASSIUM CL SA 10 MEQ TAB PO SCH ×2 (08:36→22:38)
[2020-08-17] MEDS: CLOPIDOGREL 75 MG TABLET PO SCH (08:42)
[2020-08-17] MEDS: lisinopriL 10 MG TAB PO SCH ×2 (08:42→22:37)
[2020-08-17] MEDS: SITAGLIPTIN PHOS 100 MG TAB PO SCH (08:45)
[2020-08-17] MEDS: carvediloL 6.25 MG TAB PO SCH ×2 (08:45→22:39)
[2020-08-17] MEDS: MEMANTINE HCL 10 MG TABLET PO SCH ×2 (08:46→22:37)
[2020-08-17] MEDS: FOLIC ACID 1 MG TABLET PO SCH (08:46)
[2020-08-17] MEDS: MAGNESIUM OXIDE 400 MG TAB PO SCH (08:46)
[2020-08-17] MEDS: FUROSEMIDE 40 MG TABLET PO SCH ×2 (08:47→16:18)
[2020-08-17] MEDS: ASPIRIN EC 81 MG TAB PO SCH (08:47)
[2020-08-17] MEDS: INSULIN GLARGINE 100 UNITS/ML SQ SCH (09:12)
--- NOTE | 2020-08-17 15:23 | P.PN ---
Subjective Date of Service: 08/17/20 Chief Complaint: Patient with numerous falls over the last few days Subjective: Other (Patient appears better) Physical Examination - Vital Signs Temperature: 97.1 F Blood Pressure: 129/70 Pulse: 67 Respirations: 18 Pulse Ox (%): 100 - Physical Exam General: Alert, Cooperative HEENT: Atraumatic Neck: Supple Respiratory: Clear to auscultation bilaterally, Normal air movement Cardiovascular: Normal pulses, Regular rate/rhythm Gastrointestinal: Normal bowel sounds Neurological: Normal speech, Normal tone, Normal affect, Abnormal strength (Better strength to the lower extremities noted.) - Studies Microbiology Data (last 24 hrs): 08/11/20 14:45 Blood - Blood Aerobic Blood Culture - Final No growth in 5 days. 08/11/20 14:45 Blood - Blood Anaerobic Blood Culture - Final No growth in 5 days. 08/11/20 14:30 Blood - Blood Aerobic Blood Culture - Final No growth in 5 days. 08/11/20 14:30 Blood - Blood Anaerobic Blood Culture - Final No growth in 5 days. Medications List Reviewed: Yes Assessment & Plan Discharge Plan: Other (longterm facility) Plan to discharge in: 24 Hours Physician Review Additional Text: Impression: Ataxia with falls secondary to 8 mm acute right parietal white matter ischemic stroke with history of vascular dementia Atrial fibrillation previously on chronic anti coagulation therapy Carotid arterial disease Chronic systolic CHF with ejection fraction 25% Diabetes mellitus type 2 insulin-dependent with hyperglycemia Hypertension Hyperlipidemia Left knee pain from fall BPH Plan: Ataxia with falls secondary to 8 mm acute right parietal white matter ischemic stroke with history of vascular dementia: Patient doing better with physical therapy. Continue to pursue skilled placement. Continue with current treatment plan. Patient on aspirin, Plavix, Lipitor, and blood pressure medication. Cardiology recommends no further use of Eliquis due to high risk for fall and bleeding. This was discussed with Neurology. Neurology suggested possible Watchman procedure in the future. Atrial fibrillation previously on chronic anti coagulation therapy: Patient on aspirin, Plavix. Continue current medications including carvedilol. Consider Watchman procedure in the future. Carotid arterial disease: Continue with current medication Chronic systolic CHF with ejection fraction 25%: Continue Lasix. Patient on lisinopril and carvedilol. 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 Accu-Cheks and sliding scale in place. Hypertension: Continue current blood pressure medication. Will monitor and adjust appropriately. Hyperlipidemia: Continue Lipitor Left knee pain from fall: Continue physical therapy. Will monitor closely. Time Spent Managing Pts Care (In Minutes): 55
[2020-08-17] MEDS: Travatan 0.004% Opth Sol OPTH SCH (21:00)
[2020-08-17] MEDS: ATORVASTATIN 80 MG TAB PO SCH (22:37)
[2020-08-18] MEDS: INSULIN -REGULAR HUMAN 50 UNIT/0.5 ML ML SQ SCH ×4 (07:30→21:00)
[2020-08-18] MEDS: MAGNESIUM OXIDE 400 MG TAB PO SCH (09:00)
[2020-08-18] MEDS: Brimonidine Tartrate/Timolol [Combigan 0.2%-0.5% Eye Drops] OPTH SCH ×2 (09:00→21:04)
[2020-08-18] MEDS: ACETAMINOPHEN 325 MG TABLET PO PRN (09:23)
[2020-08-18] MEDS: ASPIRIN EC 81 MG TAB PO SCH (09:25)
[2020-08-18] MEDS: ENOXAPARIN 40 MG/0.4 ML SQ SCH (09:25)
[2020-08-18] MEDS: SITAGLIPTIN PHOS 100 MG TAB PO SCH (09:26)
[2020-08-18] MEDS: FUROSEMIDE 40 MG TABLET PO SCH (09:26)
[2020-08-18] MEDS: MEMANTINE HCL 10 MG TABLET PO SCH ×2 (09:26→21:03)
[2020-08-18] MEDS: FOLIC ACID 1 MG TABLET PO SCH (09:26)
[2020-08-18] MEDS: POTASSIUM CL SA 10 MEQ TAB PO SCH ×2 (09:26→21:04)
[2020-08-18] MEDS: carvediloL 6.25 MG TAB PO SCH ×2 (09:26→21:03)
[2020-08-18] MEDS: INSULIN GLARGINE 100 UNITS/ML SQ SCH (09:27)
[2020-08-18] MEDS: CLOPIDOGREL 75 MG TABLET PO SCH (09:27)
[2020-08-18] MEDS: lisinopriL 10 MG TAB PO SCH ×2 (09:30→21:03)
[2020-08-18] MEDS ORDERED: NA CHLORIDE 0.9% 250 ML IV PRN (12:14)
--- NOTE | 2020-08-18 13:07 | P.PN ---
Subjective Date of Service: 08/18/20 Chief Complaint: Patient with numerous falls over the last few days Subjective: Improving Physical Examination - Vital Signs Temperature: 97.1 F Blood Pressure: 140/65 Pulse: 87 Respirations: 17 Pulse Ox (%): 99 - Physical Exam General: Alert, Cooperative HEENT: Atraumatic Neck: Supple Cardiovascular: Irregular heart rate/rhythm (AFib rate controlled) Neurological: Normal speech, Abnormal strength (Better strength noted to the lower extremities) - Studies Medications List Reviewed: Yes Assessment & Plan Discharge Plan: [facility] ([facility] Plan to discharge in: 24 Hours Physician Review Additional Text: Impression: Ataxia with falls secondary to 8 mm acute right parietal white matter ischemic stroke with history of vascular dementia Atrial fibrillation previously on chronic anti coagulation therapy Carotid arterial disease Chronic systolic CHF with ejection fraction 25% Diabetes mellitus type 2 insulin-dependent with hyperglycemia Hypertension Hyperlipidemia Left knee pain from fall BPH Plan: Ataxia with falls secondary to 8 mm acute right parietal white matter ischemic stroke with history of vascular dementia: Continue with current plan of care. Await approval for skilled placement. Blood pressure was could this morning. This afternoon a was slightly low. Patient reassessed. Patient stable. Will provide fluid bolus. Will hold Lasix. Continue with current treatment plan. Patient on aspirin, Plavix, Lipitor, and blood pressure medication. Cardiology recommends no further use of Eliquis due to high risk for fall and bleeding. This was discussed with Neurology. Neurology suggested possible Watchman procedure in the future. Atrial fibrillation previously on chronic anti coagulation therapy: Patient on aspirin, Plavix. Continue current medications including carvedilol. Consider Watchman procedure in the future. Carotid arterial disease: Continue with current medication Chronic systolic CHF with ejection fraction 25%: Hold Lasix at this time. Patient on lisinopril and carvedilol. 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 Accu-Cheks and sliding scale in place. Hypertension: Continue current blood pressure medication. Will monitor and adjust appropriately. Hyperlipidemia: Continue Lipitor Left knee pain from fall: Continue physical therapy. Will monitor closely. Time Spent Managing Pts Care (In Minutes): 55
[2020-08-18] MEDS ORDERED: NA CHLORIDE 0.9% 250 ML IV ONE (13:30)
[2020-08-18] MEDS ORDERED: CEFTRIAXONE/SWI 1gm 1 GM/10 ML SYR IV SCH (13:34)
[2020-08-18] MEDS ORDERED: NACHLORIDE 0.45% 1,000 ML IV SCH (14:00)
[2020-08-18 14:36] LABS: Absolute Lymphocytes (CBC) 1.8 K/uL (0.7-4.9); Basophils % 1.2 % (0-1.3); Hematocrit 37.8 % (39.6-49.0); MPV 9.4 fL (7.6-11.3); RBC Red Blood Cell Count 3.98 M/uL (4.33-5.43)
[2020-08-18] MEDS: NACHLORIDE 0.45% 1,000 ML IV SCH (17:38)
[2020-08-18] MEDS: ATORVASTATIN 80 MG TAB PO SCH (21:03)
[2020-08-18] MEDS: Travatan 0.004% Opth Sol OPTH SCH (21:04)
[2020-08-19] MEDS: NACHLORIDE 0.45% 1,000 ML IV SCH (06:29)
[2020-08-19 06:48] LABS: Magnesium 1.9 mg/dL (1.8-2.4); Potassium 3.6 mmol/L (3.5-5.1)
[2020-08-19] MEDS: INSULIN -REGULAR HUMAN 50 UNIT/0.5 ML ML SQ SCH ×4 (07:30→20:42)
--- NOTE | 2020-08-19 07:58 | P.PN ---
Subjective Date of Service: 08/19/20 Chief Complaint: Patient with numerous falls over the last few days Subjective: Other (Patient doing better. Better hydrated. Blood pressure stable.) Physical Examination - Vital Signs Temperature: 97.2 F Blood Pressure: 132/67 Pulse: 60 Respirations: 18 Pulse Ox (%): 99 - Physical Exam General: Alert, In no apparent distress, Oriented x3, Cooperative HEENT: Atraumatic Neck: Supple Respiratory: Clear to auscultation bilaterally, Normal air movement Cardiovascular: Irregular heart rate/rhythm (AFib rate controlled) Gastrointestinal: No masses, No rebound, No guarding Integumentary: No erythema, No warmth, No cyanosis Neurological: Normal speech, Abnormal strength (Better overall strength to the lower extremities.) - Studies Medications List Reviewed: Yes Assessment & Plan Discharge Plan: Other (long-term facility) Plan to discharge in: 24 Hours Physician Review Additional Text: Impression: Ataxia with falls secondary to 8 mm acute right parietal white matter ischemic stroke with history of vascular dementia Atrial fibrillation previously on chronic anti coagulation therapy Carotid arterial disease Chronic systolic CHF with ejection fraction 25% 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 Continue physical therapy. Blood pressure improved. Will discontinue IV fluids. Maintain adequate blood pressure control. Maintain blood pressure systolic around 130-150. Hold blood pressure medication if less than 130. Will monitor for low blood pressure. Continue physical therapy and occupational therapy. Continue with plan of care as previous. Patient on aspirin, Plavix, Lipitor and blood pressure medication. Cardiology recommends no further use of Eliquis due to increase fall and bleeding. Neurology suggest Watchman procedure in the future. Await approval for skilled placement. Will discuss with . Atrial fibrillation previously on chronic anti coagulation therapy: Patient on aspirin, Plavix. Continue current medications including carvedilol. Blood pr essure parameters in place. Cardiology recommends no Eliquis at this time due to increase risk of fall and bleeding. This was discussed in detail with who agrees with plan of care. This also was discussed in detail with Neurology. Neurology considers Watchman procedure in the future.. Carotid arterial disease: Continue with current medication Chronic systolic CHF with ejection fraction 25%: Patient was dehydrated yesterday. Blood pressure improved. Dc IV fluids. Lasix on hold.. Patient on lisinopril and carvedilol. Diabetes mellitus type 2 insulin-dependent with hyperglycemia: Previous A1c well controlled. Will discontinue basal insulin due to increase risk for hypoglycemia. Continue oral medication. Accu-Cheks and sliding scale in place. Will check A1c. Dietary consulted to address daily needs. Hypertension: Continue current blood pressure medication. Parameters in place. Will monitor and adjust appropriately. Hyperlipidemia: Continue Lipitor Left knee pain from fall: Continue physical therapy. Will monitor closely. BPH: Continue medication Hypotension likely dehydration: Blood pressures adjusted. Patient given IV fluids yesterday with improvement. Discontinue IV fluids. Doubt infection as pro calcitonin negative. Discontinue Rocephin. Will adjust medications accordingly. Encourage oral intake. Dietary to address daily needs. Time Spent Managing Pts Care (In Minutes): 55
[2020-08-19] MEDS: ASPIRIN EC 81 MG TAB PO SCH (08:28)
[2020-08-19] MEDS: carvediloL 6.25 MG TAB PO SCH ×2 (08:28→20:41)
[2020-08-19] MEDS: CLOPIDOGREL 75 MG TABLET PO SCH (08:28)
[2020-08-19] MEDS: POTASSIUM CL SA 10 MEQ TAB PO SCH ×2 (08:28→20:42)
[2020-08-19] MEDS: FOLIC ACID 1 MG TABLET PO SCH (08:28)
[2020-08-19] MEDS: MAGNESIUM OXIDE 400 MG TAB PO SCH (08:29)
[2020-08-19] MEDS: MEMANTINE HCL 10 MG TABLET PO SCH ×2 (08:29→20:42)
[2020-08-19] MEDS: lisinopriL 10 MG TAB PO SCH ×2 (08:29→20:41)
[2020-08-19] MEDS: ENOXAPARIN 40 MG/0.4 ML SQ SCH (08:29)
[2020-08-19] MEDS: Brimonidine Tartrate/Timolol [Combigan 0.2%-0.5% Eye Drops] OPTH SCH ×2 (08:30→20:42)
[2020-08-19] MEDS: SITAGLIPTIN PHOS 100 MG TAB PO SCH (08:35)
[2020-08-19] MEDS ORDERED: POTASSIUM 25 MEQ EFFERV TAB PO ONE (09:00)
[2020-08-19] MEDS: ATORVASTATIN 80 MG TAB PO SCH (20:41)
[2020-08-19] MEDS: Travatan 0.004% Opth Sol OPTH SCH (20:42)
[2020-08-20 06:10] LABS: Potassium 4.2 mmol/L (3.5-5.1)
[2020-08-20 07:00] LABS: Absolute Lymphocytes (CBC) 1.7 K/uL (0.7-4.9); Basophils % 1.1 % (0-1.3); Hematocrit 37.8 % (39.6-49.0); Lymphocytes % 17.7 % (15.3-44.8); MPV 9.2 fL (7.6-11.3); RBC Red Blood Cell Count 3.99 M/uL (4.33-5.43)
[2020-08-20] MEDS: Brimonidine Tartrate/Timolol [Combigan 0.2%-0.5% Eye Drops] OPTH SCH ×2 (09:00→21:22)
[2020-08-20] MEDS: lisinopriL 10 MG TAB PO SCH ×2 (09:00→21:20)
[2020-08-20] MEDS: SITAGLIPTIN PHOS 100 MG TAB PO SCH (09:51)
[2020-08-20] MEDS: INSULIN -REGULAR HUMAN 50 UNIT/0.5 ML ML SQ SCH ×4 (09:51→21:00)
[2020-08-20] MEDS: CLOPIDOGREL 75 MG TABLET PO SCH (09:52)
[2020-08-20] MEDS: FOLIC ACID 1 MG TABLET PO SCH (09:52)
[2020-08-20] MEDS: MAGNESIUM OXIDE 400 MG TAB PO SCH (09:52)
[2020-08-20] MEDS: ASPIRIN EC 81 MG TAB PO SCH (09:52)
[2020-08-20] MEDS: POTASSIUM CL SA 10 MEQ TAB PO SCH ×2 (09:52→21:00)
[2020-08-20] MEDS: MEMANTINE HCL 10 MG TABLET PO SCH ×2 (09:52→21:20)
[2020-08-20] MEDS: ENOXAPARIN 40 MG/0.4 ML SQ SCH (09:53)
[2020-08-20] MEDS: carvediloL 6.25 MG TAB PO SCH ×2 (09:53→21:20)
--- NOTE | 2020-08-20 11:11 | P.PN ---
Subjective Date of Service: 08/20/20 Chief Complaint: Patient with numerous falls over the last few days Subjective: Doing well Physical Examination - Vital Signs Temperature: 97.9 F Blood Pressure: 183/75 Pulse: 69 Respirations: 20 Pulse Ox (%): 100 - Physical Exam General: Alert, Cooperative HEENT: Atraumatic Neck: Supple Respiratory: Clear to auscultation bilaterally, Normal air movement Cardiovascular: Irregular heart rate/rhythm (AFib rate controlled) Gastrointestinal: Normal bowel sounds, No masses, No rebound, No guarding Neurological: Normal speech, Normal tone, Normal affect, Abnormal strength (Better strength noted.) - Studies Medications List Reviewed: Yes Assessment & Plan Discharge Plan: Other (Skilled placement) Plan to discharge in: 48 Hours Physician Review Additional Text: Impression: Ataxia with falls secondary to 8 mm acute right parietal white matter ischemic stroke with history of vascular dementia Atrial fibrillation previously on chronic anti coagulation therapy Carotid arterial disease Chronic systolic CHF with ejection fraction 25% 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 Continue physical therapy. Blood pressure improved. May need to make adjustments if blood pressure continues to be elevated. IV medication provided. Continue physical therapy and occupational therapy. Continue with plan of care as previous. Patient on aspirin, Plavix, Lipitor and blood pressure medication. Cardiology recommends no further use of Eliquis due to increase fall and bleeding. Neurology suggest Watchman procedure in the future. Await approval for skilled placement. Case discussed with on plan of care. Atrial fibrillation previously on chronic anti coagulation therapy: Patient on aspirin, Plavix. Continue current medications including carvedilol. Blood pressure parameters in place. Cardiology recommends no Eliquis at this time due to increase risk of fall and bleeding. This was discussed in detail with who agrees with plan of care. This also was discussed in detail with Neurology. Neurology considers Watchman procedure in the future.. Carotid arterial disease: Continue with current medication Chronic systolic CHF with ejection fraction 25%: May need to restart diuretic in the next couple of days. Will monitor blood pressure Patient on lisinopril and carvedilol. 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 Sliding scale in place. Basal insulin has been discontinued. Hypertension: Continue current blood pressure medication. Parameters in place. May need to adjust medications if blood pressure elevated. Will monitor and adjust appropriately. Hyperlipidemia: Continue Lipitor Left knee pain from fall: Continue physical therapy. Will monitor closely. BPH: Continue medication Hypotension likely dehydration: May need to adjust blood pressure medication. No evidence of infection. Antibiotics discontinued. Pro calcitonin negative. Blood culture was contaminant. Time Spent Managing Pts Care (In Minutes): 55
[2020-08-20] MEDS: ATORVASTATIN 80 MG TAB PO SCH (21:20)
[2020-08-20] MEDS: Travatan 0.004% Opth Sol OPTH SCH (21:21)
[2020-08-21 06:41] LABS: Phosphorus 2.7 mg/dL (2.5-4.9); Potassium 4.1 mmol/L (3.5-5.1)
[2020-08-21] MEDS: INSULIN -REGULAR HUMAN 50 UNIT/0.5 ML ML SQ SCH ×4 (07:30→21:00)
[2020-08-21] MEDS: ASPIRIN EC 81 MG TAB PO SCH (08:37)
[2020-08-21] MEDS: ENOXAPARIN 40 MG/0.4 ML SQ SCH (08:37)
[2020-08-21] MEDS: SITAGLIPTIN PHOS 100 MG TAB PO SCH (08:38)
[2020-08-21] MEDS: MAGNESIUM OXIDE 400 MG TAB PO SCH (08:39)
[2020-08-21] MEDS: FOLIC ACID 1 MG TABLET PO SCH (08:39)
[2020-08-21] MEDS: MEMANTINE HCL 10 MG TABLET PO SCH ×2 (08:39→21:48)
[2020-08-21] MEDS: CLOPIDOGREL 75 MG TABLET PO SCH (08:39)
[2020-08-21] MEDS: POTASSIUM CL SA 10 MEQ TAB PO SCH ×2 (08:39→21:49)
[2020-08-21] MEDS: Brimonidine Tartrate/Timolol [Combigan 0.2%-0.5% Eye Drops] OPTH SCH ×2 (08:40→21:49)
[2020-08-21] MEDS: carvediloL 6.25 MG TAB PO SCH ×2 (08:40→21:48)
[2020-08-21] MEDS: lisinopriL 10 MG TAB PO SCH ×2 (08:40→21:49)
--- NOTE | 2020-08-21 09:20 | P.PN ---
Subjective Date of Service: 08/21/20 Chief Complaint: Patient with numerous falls over the last few days Subjective: Improving, Doing well Physical Examination - Vital Signs Temperature: 97.8 F Blood Pressure: 120/63 Pulse: 51 Respirations: 18 Pulse Ox (%): 96 - Physical Exam General: Alert, In no apparent distress, Oriented x3, Cooperative HEENT: Atraumatic Neck: Supple Respiratory: Clear to auscultation bilaterally, Normal air movement Cardiovascular: Irregular heart rate/rhythm (AFib rate controlled) Gastrointestinal: Normal bowel sounds, No masses, No rebound, No guarding Neurological: Normal speech, Normal strength at 5/5 x4 extr (Better strength noted bilateral), Normal tone, Normal affect - Studies Medications List Reviewed: Yes Assessment & Plan Discharge Plan: Other (residential facility) Plan to discharge in: 24 Hours Physician Review Additional Text: Impression: Ataxia with falls secondary to 8 mm acute right parietal white matter ischemic stroke with history of vascular dementia Atrial fibrillation previously on chronic anti coagulation therapy Carotid arterial disease Chronic systolic CHF with ejection fraction 25% Diabetes mellitus type 2 insulin-dependent with hyperglycemia Hypertension Hyperlipidemia Left knee pain from fall BPH Hypotension likely dehydration Plan: Ataxia with falls secondary to 8 mm acute right parietal white matter ischemic stroke with history of vascular dementia: Patient has significantly improved. Continue with physical therapy, occupational therapy. Blood pressure stable. Patient remains on current medications-aspirin, Plavix, Lipitor and blood pressure medication. Cardiology recommends no further use of Eliquis due to increase fall and bleeding. Neurology suggested Watchman procedure in the future. Await approval for skilled placement. Case discussed with on plan of care. Will turn the service over to the hospitalist team tomorrow. I will go plan of care with him. Atrial fibrillation previously on chronic anti coagulation therapy: Patient on aspirin, Plavix. Continue current medications including carvedilol. Blood pressure parameters in place. Cardiology recommends no Eliquis at this time due to increase risk of fall and bleeding. This was discussed in detail with who agrees with plan of care. This also was discussed in detail with Neurology. Neurology considers Watchman procedure in the future.. Carotid arterial disease: Continue with current medication Chronic systolic CHF with ejection fraction 25%: May need to restart diuretic in the next couple of days. Will monitor blood pressure Patient on lisinopril and carvedilol. 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 Sliding scale in place. Basal insulin has been discontinued. Will monitor off basal insulin. So far controlled. Hypertension: Continue current blood pressure medication. Parameters in place. May need to adjust medications if blood pressure elevated. Will monitor and adjust appropriately. Hyperlipidemia: Continue Lipitor Left knee pain from fall: Continue physical therapy. Will monitor closely. BPH: Continue medication Hypotension likely dehydration: This has resolved. May need to adjust blood pressure medication. No evidence of infection. Antibiotics discontinued. Pro calcitonin negative. Blood culture was contaminant. Time Spent Managing Pts Care (In Minutes): 55
[2020-08-21] MEDS ORDERED: BISACODYL 10 MG RECTAL SUPP PR ONE (18:22)
[2020-08-21] MEDS: Travatan 0.004% Opth Sol OPTH SCH (21:00)
[2020-08-21] MEDS: ATORVASTATIN 80 MG TAB PO SCH (21:48)
[2020-08-22] MEDS: INSULIN -REGULAR HUMAN 50 UNIT/0.5 ML ML SQ SCH ×4 (07:30→19:58)
[2020-08-22] MEDS: Brimonidine Tartrate/Timolol [Combigan 0.2%-0.5% Eye Drops] OPTH SCH ×2 (08:49→19:52)
[2020-08-22] MEDS: MEMANTINE HCL 10 MG TABLET PO SCH ×2 (08:50→19:52)
[2020-08-22] MEDS: CLOPIDOGREL 75 MG TABLET PO SCH (08:50)
[2020-08-22] MEDS: MAGNESIUM OXIDE 400 MG TAB PO SCH (08:50)
[2020-08-22] MEDS: POTASSIUM CL SA 10 MEQ TAB PO SCH ×2 (08:50→19:52)
[2020-08-22] MEDS: ASPIRIN EC 81 MG TAB PO SCH (08:50)
[2020-08-22] MEDS: SITAGLIPTIN PHOS 100 MG TAB PO SCH (08:51)
[2020-08-22] MEDS: ENOXAPARIN 40 MG/0.4 ML SQ SCH (08:51)
[2020-08-22] MEDS: DOCUSATE NA 100 MG CAP PO SCH (08:51)
[2020-08-22] MEDS: carvediloL 6.25 MG TAB PO SCH (08:51)
[2020-08-22] MEDS: FOLIC ACID 1 MG TABLET PO SCH (08:51)
[2020-08-22] MEDS: lisinopriL 10 MG TAB PO SCH (08:52)
[2020-08-22] MEDS ORDERED: NA CHLORIDE 0.9% 250 ML IV ONE (09:53)
[2020-08-22] MEDS: NA CHLORIDE 0.9% 1,000 ML IV SCH (12:35)
--- NOTE | 2020-08-22 15:43 | P.DS ---
Discharge Date: 08/23/20 Disposition: TRANSFER TO SNF - REHAB Discharge Condition: GOOD Reason for Admission: Patient with numerous falls over the last few days Consultations: Cardiology Neurology - Problems (1) Acute CVA (cerebrovascular accident) Status: Acute (2) Cardiomyopathy Status: Acute (3) Atrial fibrillation Status: Acute (4) Benign prostatic hyperplasia Onset Date: 12/31/17 Status: Acute (5) Carotid artery disease Onset Date: 12/31/17 Status: Acute (6) Diabetes mellitus with hyperglycemia Onset Date: 12/31/17 Status: Acute (7) Essential hypertension Onset Date: 12/31/17 Status: Acute (8) Hyperlipidemia Status: Acute Brief History of Present Illness: Patient is an 80-year-old gentleman who came to the hospital after falling numerous times at home. Patient actually come into the emergency room a few days ago with similar complaints and was felt to have a urinary tract infection at that time. Patient been having some weakness and was very lethargic th roughout the day. He had also fallen on his left knee and having a lot of difficulty walking after that. He had a stroke in the past and since then he occasionally has hallucinations with his vascular dementia. Today he was sitting at the edge of the bed and he fell from the edge of the bed. At that time the family decided to bring him into the emergency room for further evaluation. In the emergency room he had an MRI of the brain performed which revealed patient had an acute infarct. It was not 8 mm infarct in the deep white matter of the parietal lobe. Patient has atrial fibrillation. He is on anticoagulation with Eliquis which will have to be held. At this time, will continue anti-platelet therapy. Patient long-term prognosis is poor. Will discuss with the family long-term plan of care. I am not sure if patient will be safe to return home unless he has supervision 01/04 with a caregiver. At this time, patient will be admitted to the hospital for further evaluation. Hospital Course: Patient is doing well at this time. Patient is more awake and alert and is following commands from physical therapy. Patient is ambulating with physical therapy without a lot of difficulty. At this time, patient is stable for discharge with [facility]. Patient will continue with physical therapy and nursing care. Patient will follow up with shelter physician and neurology in 2-4 weeks. Vital Signs/Physical Exam: Temp Pulse Resp BP Pulse Ox 97.0 F 68 18 129/58 L 97 08/22/20 12:00 08/22/20 12:00 08/22/20 12:00 08/22/20 13:45 08/22/20 12:00 General: Alert, In no apparent distress, Oriented x3 Laboratory Data at Discharge: WBC 9.8 K/uL (4.3-10.9) 08/20/20 06:42 Hgb 12.9 g/dL (13.6-17.9) L 08/20/20 06:42 Hct 37.8 % (39.6-49.0) L 08/20/20 06:42 Plt Count 305 K/uL (152-406) 08/20/20 06:42 PT 14.8 SECONDS (9.5-12.5) H 08/16/20 05:11 INR 1.26 08/16/20 05:11 APTT 26.6 SECONDS (24.3-36.9) 08/16/20 05:11 Sodium 139 mmol/L (136-145) 08/21/20 05:57 Potassium 4.1 mmol/L (3.5-5.1) 08/21/20 05:57 BUN 15 mg/dL (7-18) 08/21/20 05:57 Creatinine 1.00 mg/dL (0.55-1.3) 08/21/20 05:57 Glucose 140 mg/dL (74-106) H 08/21/20 05:57 Phosphorus 2.7 mg/dL (2.5-4.9) 08/21/20 05:57 Magnesium 2.0 mg/dL (1.8-2.4) 08/21/20 05:57 Total Bilirubin 3.2 mg/dL (0.2-1.0) H 08/12/20 05:22 AST 16 U/L (15-37) 08/12/20 05:22 ALT 16 U/L (12-78) 08/12/20 05:22 Alkaline Phosphatase 106 U/L (45-117) 08/12/20 05:22 Triglycerides 135 mg/dL (<150) 08/12/20 05:22 Cholesterol 139 mg/dL (<200) 08/12/20 05:22 HDL Cholesterol 40 mg/dL (40-60) 08/12/20 05:22 Cholesterol/HDL Ratio 3.48 08/12/20 05:22 Home Medications: Metformin HCl 1,000 mg PO BID 05/26/20 Brimonidine Tartrate/Timolol [Combigan 0.2%-0.5% Eye Drops] 1 gtt EACH EYE BID 07/07/20 Insulin Glargine Human [Lantus*] 5 unit SQ BIDP PRN 07/07/20 Memantine HCl [Namenda*] 10 mg PO BID 07/07/20 Sitagliptin Phosphate [Januvia] 50 mg PO DAILY 07/07/20 Travoprost [Travatan Z*] 1 gtt EACH EYE BEDTIME 07/07/20 glipiZIDE [Glipizide] 5 mg PO BID 07/07/20 Atorvastatin Calcium [Lipitor] 40 mg PO BEDTIME #30 tab 07/14/20 Folic Acid 1 mg PO DAILY #30 tablet 07/14/20 Magnesium Oxide [Mag 0X*] 400 mg PO DAILY #30 tab 07/14/20 Memantine HCl [Namenda*] 10 mg PO BID tablet 07/14/20 Aspirin [Aspirin EC 81 MG] 162 mg PO DAILY #60 tablet. 08/23/20 Atorvastatin Calcium [Lipitor] 80 mg PO BEDTIME #30 tab 08/23/20 Clopidogrel Bisulfate [Plavix*] 75 mg PO DAILY #30 tablet 08/23/20 Docusate [Colace Cap*] 100 mg PO DAILY #30 cap 08/23/20 Potassium Oral Tab [Klor-Con 10 mEq Tab*] 10 meq PO BID #60 tab 08/23/20 carvediloL [Coreg*] 3.125 mg PO BID 6AM 6PM #60 tab 08/23/20 New Medications: Aspirin [Aspirin EC 81 MG] 162 mg PO DAILY #60 tablet. Docusate [Colace Cap*] 100 mg PO DAILY #30 cap carvediloL [Coreg*] 3.125 mg PO BID 6AM 6PM #60 tab Potassium Oral Tab [Klor-Con 10 mEq Tab*] 10 meq PO BID #60 tab Atorvastatin Calcium [Lipitor] 80 mg PO BEDTIME #30 tab Clopidogrel Bisulfate [Plavix*] 75 mg PO DAILY #30 tablet Patient Discharge Instructions: OK TO DC IV AND DC HOME. FOLLOW-UP WITH PRIMARY CARE PROVIDER IN 1-2 WEEKS. FOLLOW-UP WITH CARDIOLOGY IN 1-2 WEEKS. RETURN TO THE ER IF SYMPTOMS WORSEN. CALL or TEXT DR. FIERRO AT [phone] IF ANY QUESTIONS REGARDING HOSPITAL STAY. PLEASE CALL THE FLOOR AT [phone] IF ANY MEDICATION OR NURSING QUESTIONS. Diet: ADA Followup: Rico Rodríguez MD [ASSOCIATE-ACTIVE - CAN ADMIT] - OOT,OOT [Primary Care Provider] - Time spent managing pt's care (in minutes): 35
--- NOTE | 2020-08-22 15:58 | P.PN ---
Subjective Date of Service: 08/22/20 PATIENT IS CLINICALLY DOING WELL WITH NO NEW COMPLAINTS. HOWEVER, PATIENT'S BLOOD PRESSURE HAS BEEN RUNNING LOW SINCE MIDNIGHT. PATIENT BLOOD PRESSURE HAS BEEN 90S OVER 50S, 80S OVER 60S, AFTER BEING ELEVATED OVER THE LAST FEW DAYS. IT MAY BE RELATED TO THE BLOOD PRESSURE MEDICATIONS OR DEHYDRATION. I WILL MONITOR PATIENT'S HEMODYNAMICS OVERNIGHT. CHECK SOME LABS INCLUDING THYROID AND CORTISOL ALL STUDIES. REHYDRATE PATIENT AND HOPEFULLY DISCHARGE IN THE MORNING. Review of Systems 10-point ROS is otherwise unremarkable Physical Examination - Vital Signs Temperature: 97.0 F Blood Pressure: 129/58 Pulse: 68 Respirations: 18 Pulse Ox (%): 97 - Physical Exam General: Alert, In no apparent distress, Oriented x1, Cooperative Respiratory: Clear to auscultation bilaterally, Normal air movement Cardiovascular: Regular rate/rhythm, Normal S1 S2, Systolic murmur Gastrointestinal: Normal bowel sounds, Soft and benign, Non-distended, No tenderness Musculoskeletal: No clubbing, Swelling Neurological: Sensation intact, Cranial nerves 3-12 intact - Studies Medications List Reviewed: Yes Assessment & Plan - Problems (Diagnosis) (1) Acute CVA (cerebrovascular accident) Status: Acute (2) Cardiomyopathy Status: Acute (3) Atrial fibrillation Status: Acute (4) Benign prostatic hyperplasia Onset Date: 12/31/17 Status: Acute (5) Carotid artery disease Onset Date: 12/31/17 Status: Acute (6) Diabetes mellitus with hyperglycemia Onset Date: 12/31/17 Status: Acute (7) Essential hypertension Onset Date: 12/31/17 Status: Acute (8) Hyperlipidemia Status: Acute - Plan Continue with current plan of care as mentioned below 1. Patient was approved to go to [facility]. However, patient's blood pressure has been running on the low side. Not exactly sure why patient's blood pressure is low today. Continue to monitor closely. 2. Speech therapy evaluation appreciated. Patient on pureed diet 3. Anti-platelet therapy and statin therapy; hold anticoagulation secondary to fall risk 4. Continue statin therapy 5. Continue antibiotics 6. GI and DVT prophylaxis Discharge Plan: [facility] Plan to discharge in: 48 Hours - Advance Directives Does patient have a Living Will: Yes Does patient have a Durable POA for Healthcare: Yes - Code Status/Comfort Care Code Status: Full Code Critical Care: No Time Spent Managing PTS Care (In Minutes): 35
[2020-08-22] MEDS: carvediloL 3.125 MG TAB PO SCH (17:30)
[2020-08-22] MEDS: ATORVASTATIN 80 MG TAB PO SCH (19:52)
[2020-08-22] MEDS: Travatan 0.004% Opth Sol OPTH SCH (19:52)
[2020-08-23] MEDS: NA CHLORIDE 0.9% 1,000 ML IV SCH (04:51)
[2020-08-23] MEDS: carvediloL 3.125 MG TAB PO SCH (06:19)
[2020-08-23 06:20] LABS: Absolute Lymphocytes (CBC) 1.7 K/uL (0.7-4.9); Basophils % 1.1 % (0-1.3); Hematocrit 35.1 % (39.6-49.0); Lymphocytes % 19.8 % (15.3-44.8); RBC Red Blood Cell Count 3.67 M/uL (4.33-5.43)
[2020-08-23 06:59] LABS: Albumin 3.2 g/dL (3.4-5.0); Bilirubin Total 1.1 mg/dL (0.2-1.0); Phosphorus 2.6 mg/dL (2.5-4.9); Potassium 4.5 mmol/L (3.5-5.1); Protein, Total 6.7 g/dL (6.4-8.2); Thyroid Stimulating Hormone 1.73 uIU/mL (0.360-3.740)
[2020-08-23] MEDS: INSULIN -REGULAR HUMAN 50 UNIT/0.5 ML ML SQ SCH (07:30)
[2020-08-23] MEDS: ASPIRIN EC 81 MG TAB PO SCH (08:16)
[2020-08-23] MEDS: CLOPIDOGREL 75 MG TABLET PO SCH (08:17)
[2020-08-23] MEDS: DOCUSATE NA 100 MG CAP PO SCH (08:17)
[2020-08-23] MEDS: MEMANTINE HCL 10 MG TABLET PO SCH (08:18)
[2020-08-23] MEDS: FOLIC ACID 1 MG TABLET PO SCH (08:18)
[2020-08-23] MEDS: POTASSIUM CL SA 10 MEQ TAB PO SCH (08:19)
[2020-08-23] MEDS: MAGNESIUM OXIDE 400 MG TAB PO SCH (08:20)
[2020-08-23] MEDS: SITAGLIPTIN PHOS 100 MG TAB PO SCH (08:22)
[2020-08-23] MEDS: ENOXAPARIN 40 MG/0.4 ML SQ SCH (08:24)
[2020-08-23] MEDS: Brimonidine Tartrate/Timolol [Combigan 0.2%-0.5% Eye Drops] OPTH SCH (08:28)
[2020-08-23] MEDS ORDERED: CYANOCOBALAMIN 1000MCG/ML INJ IM ONE (08:49)
[2020-08-23 11:16] VITALS: O2SAT 96
[2020-08-30 14:51] VITALS: BP 129/58; TEMP 97
--- NOTE | 2020-08-30 14:53 | P.DS ---
Discharge Date: 08/23/20 Disposition: TRANSFER TO SNF - REHAB Discharge Condition: GOOD Reason for Admission: Patient with numerous falls over the last few days Consultations: Cardiology Neurology - Problems (1) Acute CVA (cerebrovascular accident) Status: Acute (2) Cardiomyopathy Status: Acute (3) Atrial fibrillation Status: Acute (4) Benign prostatic hyperplasia Onset Date: 12/31/17 Status: Acute (5) Carotid artery disease Onset Date: 12/31/17 Status: Acute (6) Diabetes mellitus with hyperglycemia Onset Date: 12/31/17 Status: Acute (7) Essential hypertension Onset Date: 12/31/17 Status: Acute (8) Hyperlipidemia Status: Acute Brief History of Present Illness: Patient is an 80-year-old gentleman who came to the hospital after falling numerous times at home. Patient actually come into the emergency room a few days ago with similar complaints and was felt to have a urinary tract infection at that time. Patient been having some weakness and was very lethargic th roughout the day. He had also fallen on his left knee and having a lot of difficulty walking after that. He had a stroke in the past and since then he occasionally has hallucinations with his vascular dementia. Today he was sitting at the edge of the bed and he fell from the edge of the bed. At that time the family decided to bring him into the emergency room for further evaluation. In the emergency room he had an MRI of the brain performed which revealed patient had an acute infarct. It was not 8 mm infarct in the deep white matter of the parietal lobe. Patient has atrial fibrillation. He is on anticoagulation with Eliquis which will have to be held. At this time, will continue anti-platelet therapy. Patient long-term prognosis is poor. Will discuss with the family long-term plan of care. I am not sure if patient will be safe to return home unless he has supervision 01/04 with a caregiver. At this time, patient will be admitted to the hospital for further evaluation. Hospital Course: Patient is doing well at this time. Patient is more awake and alert and is following commands from physical therapy. Patient is ambulating with physical therapy without a lot of difficulty. At this time, patient is stable for discharge with [facility]. Patient will continue with physical therapy and nursing care. Patient will follow up with intermediate physician and neurology in 2-4 weeks. Vital Signs/Physical Exam: Temp Pulse Resp BP Pulse Ox 97.0 F 68 18 129/58 L 97 08/30/20 14:50 08/30/20 14:50 08/30/20 14:50 08/30/20 14:50 08/30/20 14:50 General: Alert, In no apparent distress, Oriented x2 Laboratory Data at Discharge: WBC 8.8 K/uL (4.3-10.9) 08/23/20 06:09 Hgb 11.7 g/dL (13.6-17.9) L 08/23/20 06:09 Hct 35.1 % (39.6-49.0) L 08/23/20 06:09 Plt Count 283 K/uL (152-406) 08/23/20 06:09 PT 14.8 SECONDS (9.5-12.5) H 08/16/20 05:11 INR 1.26 08/16/20 05:11 APTT 26.6 SECONDS (24.3-36.9) 08/16/20 05:11 Sodium 142 mmol/L (136-145) 08/23/20 06:09 Potassium 4.5 mmol/L (3.5-5.1) 08/23/20 06:09 BUN 19 mg/dL (7-18) H 08/23/20 06:09 Creatinine 1.12 mg/dL (0.55-1.3) 08/23/20 06:09 Glucose 165 mg/dL (74-106) H 08/23/20 06:09 Phosphorus 2.6 mg/dL (2.5-4.9) 08/23/20 06:09 Magnesium 2.0 mg/dL (1.8-2.4) 08/23/20 06:09 Total Bilirubin 1.1 mg/dL (0.2-1.0) H 08/23/20 06:09 AST 20 U/L (15-37) 08/23/20 06:09 ALT 22 U/L (12-78) 08/23/20 06:09 Alkaline Phosphatase 100 U/L (45-117) 08/23/20 06:09 Triglycerides 135 mg/dL (<150) 08/12/20 05:22 Cholesterol 139 mg/dL (<200) 08/12/20 05:22 HDL Cholesterol 40 mg/dL (40-60) 08/12/20 05:22 Cholesterol/HDL Ratio 3.48 08/12/20 05:22 Home Medications: Metformin HCl 1,000 mg PO BID 05/26/20 Brimonidine Tartrate/Timolol [Combigan 0.2%-0.5% Eye Drops] 1 gtt EACH EYE BID 07/07/20 Insulin Glargine Human [Lantus*] 5 unit SQ BIDP PRN 07/07/20 Memantine HCl [Namenda*] 10 mg PO BID 07/07/20 Sitagliptin Phosphate [Januvia] 50 mg PO DAILY 07/07/20 Travoprost [Travatan Z*] 1 gtt EACH EYE BEDTIME 07/07/20 glipiZIDE [Glipizide] 5 mg PO BID 07/07/20 Atorvastatin Calcium [Lipitor] 40 mg PO BEDTIME #30 tab 07/14/20 Folic Acid 1 mg PO DAILY #30 tablet 07/14/20 Magnesium Oxide [Mag 0X*] 400 mg PO DAILY #30 tab 07/14/20 Memantine HCl [Namenda*] 10 mg PO BID tablet 07/14/20 Aspirin [Aspirin EC 81 MG] 162 mg PO DAILY #60 tablet. 08/23/20 Atorvastatin Calcium [Lipitor] 80 mg PO BEDTIME #30 tab 08/23/20 Clopidogrel Bisulfate [Plavix*] 75 mg PO DAILY #30 tablet 08/23/20 Docusate [Colace Cap*] 100 mg PO DAILY #30 cap 08/23/20 Potassium Oral Tab [Klor-Con 10 mEq Tab*] 10 meq PO BID #60 tab 08/23/20 carvediloL [Coreg*] 3.125 mg PO BID 6AM 6PM #60 tab 08/23/20 New Medications: Aspirin [Aspirin EC 81 MG] 162 mg PO DAILY #60 tablet. Docusate [Colace Cap*] 100 mg PO DAILY #30 cap carvediloL [Coreg*] 3.125 mg PO BID 6AM 6PM #60 tab Potassium Oral Tab [Klor-Con 10 mEq Tab*] 10 meq PO BID #60 tab Atorvastatin Calcium [Lipitor] 80 mg PO BEDTIME #30 tab Clopidogrel Bisulfate [Plavix*] 75 mg PO DAILY #30 tablet Patient Discharge Instructions: OK TO DC IV AND DC to Home. FOLLOW-UP WITH PRIMARY CARE PROVIDER IN 1-2 WEEKS. RETURN TO THE ER IF symptoms worsen. CALL or TEXT DR. FIERRO AT [phone] IF ANY QUESTIONS REGARDING HOSPITAL STAY. PLEASE CALL THE FLOOR AT [phone] IF ANY MEDICATION OR NURSING QUESTIONS. Diet: AHA Activity: Fall precautions Followup: Rico Rodríguez MD [ASSOCIATE-ACTIVE - CAN ADMIT] - OOT,OOT [Primary Care Provider] - Time spent managing pt's care (in minutes): 35
== END 2020-08-23 11:38 | DRG 64 ==
LOC: ER 13:06 → ERHOLD 15:34 → 2ND 08-12 14:49
PROVIDERS: ADMIT Hospitalist; ATTEND Hospitalist
DX: I63.9 Cerebral infarction, unspecified (principal); I50.21 Acute systolic (congestive) heart failure; I43 Cardiomyopathy in diseases classified elsewhere; I11.0 Hypertensive heart disease with heart failure; E11.65 Type 2 diabetes mellitus with hyperglycemia; E78.5 Hyperlipidemia, unspecified; I48.0 Paroxysmal atrial fibrillation; F01.50 Vascular dementia, unspecified severity, without behavioral disturbance, psychotic disturbance, mood disturbance, and anxiety; M43.6 Torticollis; M25.562 Pain in left knee; M79.18 Myalgia, other site; I95.9 Hypotension, unspecified; E86.0 Dehydration; N40.0 Benign prostatic hyperplasia without lower urinary tract symptoms; I65.29 Occlusion and stenosis of unspecified carotid artery; R53.83 Other fatigue; R41.82 Altered mental status, unspecified; W06.XXXA Fall from bed, initial encounter; Z66 Do not resuscitate; Z79.899 Other long term (current) drug therapy; Z91.81 History of falling; Z79.4 Long term (current) use of insulin; Z95.5 Presence of coronary angioplasty implant and graft; Z79.01 Long term (current) use of anticoagulants; Z20.828 Contact with and (suspected) exposure to other viral communicable diseases
CPT/HCPCS: 36415; 70450; 70551; 71045; 72125; 74230; 80048; 80053; 80061; 80076; 81001; 81003; 81015; 82150; 82533; 82550; 82553; 82607; 82947; 83605; 83690; 83735; 83880; 84100; 84145; 84439; 84443; 84484; 85025; 85610; 85730; 87040; 87086; 87088; 87205; 92526; 92610; 92611; 93005; 93306; 96365; 96366; 96374; 96375; 97110; 97112; 97116; 97124; 97161; 97165; 97530; 99285; J0360; J0696; J1100; J1650; J1815; J1940; J3411; J3420; J3475; J3480; J3486; J7030; J7050; U0002

== ENCOUNTER 2021-01-06 11:04 | Observation (INO) | payer MEDICARE ==
--- OUTSIDE RECORDS SUMMARY | 2021-01-06 11:10 | XMS REPORT | Continuity of Care Document ---
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 [facility]: [facility] [place] mesh to mesh to 00 Center organ or organ or tissue, tissue, initial initial encounter encounter BPH BPH Disease Active [facility]ign (benign [facility]12 [facility] - prostatic prostatic 00:00: [facility]i [place] hyperplasi hyperplasi 00 Ce nter a) a) Prostate Prostate Disease [facility] cancer [facility] - 00[facility] Medical 00 Center Benign Benign Disease Active [facility] prostate prostate 05-11 [facility] - hyperplasi hyperplasi 00:00: Me dical a a 00 Center Incomplete Incomplete Disease Active [facility] bladder bladder 05-11 [facility] - emptying emptying 00:00: Medica l 00 Center AMS, UTI, Diagnosis Active 2017-12-31 Memoria KIDNEY 4-24 22:28:00 l INJURY AMS, 00:00: [place] UTI, 00 KIDNEY INJURY Active 12/31/2017 [facility] INJURY OF Diagnosis Active 2018-01-07 Memoria URETER 4-24 22:03:00 l INJURY 00:00: Edmund OF URETER 00 Active 12/31/2017 [facility] [id number], Diagnosis Active 2018-04-17 Memoria 55020 3-27 16:05:00 l BILATERAL 00:00: [place] UMBILICAL [id number], 00 OUMAR 96459 BILATERAL UMBILICAL OUMAR Active 12/03/2017 [facility] Chest pain Problem Active 2020-11-02 M emoria (finding) 2- 22:19:21 l Chest 00:00: Edmund pain 00 (finding) Active 10/30/2012 Problem 11/02/2020 Data migrated from [employer] (formerly [email or web address]) on 02/05/15. Medical Group,[facility] [place] History of History of Problem Resolve Univers [...] ity of shoulder shoulder [place] Physici ans Unspecifie Problem 2018-01-05 M emoria d injury 02:22:13 l of ureter, Brennen watt initial Unspecifie encounter d injury of ureter, initial encounter 01/05/2018 [facility] Carotid Problem Active 2020-11-02 Ryan melodie atheroscle 22:19:21 l rosis Carotid Edmund (disorder) atheroscle rosis (disorder) Active Problem 11/02/2020 Medical Group,[facility] Coronary Problem Active 2020-11-02 Mem oria arterioscl 22:19:21 l erosis Coronary Brennen n (disorder) arterioscl erosis (disorder) Active Problem 11/02/2020 Data migrated from [facility] on 02/05/15. Medical Group,[facility] Diabetes Problem Active 2020-11-02 Mem oria mellitus 22:19:21 l (disorder) Diabetes He rmann mellitus (disorder) Active Problem 11/02/2020 Medical Group,[facility] Hyperlipid Problem Active 2020-11-02 M emoria emia 22:19:21 l (disorder) Brennen n Hyperlipid emia (disorder) Active Problem 11/02/2020 Medical Group,[facility] [place] Hypertensi Problem Active 2020-11-02 M emoria ve 22:19:21 l disorder, [place] systemic Hypertensi arterial ve (disorder) disorder, systemic arterial (disorder) Active Problem 11/02/2020 Data migrated from [facility] on 02/05/15. Medical Group,[facility] Mitral Problem Active 2020-11-02 Memor ia valve 22:19:21 l regurgitat Mitral Herm donavon ion valve (disorder) regurgitat ion (disorder) Active Problem 11/02/2020 Medical Group,[facility] [place] Nonspecifi Problem Active 2020-11-[address]-T 22:19:21 l abnormalit Rbennen n y on Nonspecifi electrocar c ST-T diogram abnormalit (finding) y on electrocar diogram (finding) Active Problem 11/02/2020 Medical Group,[facility] [place] Persistent Problem Active 2020-11-02 M emoria atrial 22:19:21 l fibrillati Brennen n on Persistent (disorder) atrial fibrillati on (disorder) Active Problem 11/02/2020 Medical Group,[facility] [place] Tricuspid Problem Active 2020-11-02 Me moria valve 22:19:21 l regurgitat Brennen n ion Tricuspid (disorder) valve regurgitat ion (disorder) Active Problem 11/02/2020 Medical Group,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 left Physici shoulder shoulder ans Femoral Problem Active 2020-11-02 Ryan melodie hernia 22:19:21 l (disorder) Femoral Her dickson hernia (disorder) Active Problem 11/02/2020 Medical Group,[facility] [place] Gastroesop Problem Active 2020-11-02 M emoria hageal 22:19:21 l reflux [place] disease Gastroesop with hageal esophagiti reflux s disease (disorder) with esophagiti s (disorder) Active Problem 11/02/2020 Medical Group,[facility] Glaucoma Problem Active 2020-11-02 Mem oria (disorder) 22:19:21 l Glaucoma Brennen n (disorder) Active Problem 11/02/2020 Medical Group,[facility] Umbilical Problem Active 2020-11-02 Me moria hernia 22:19:21 l (disorder) Brennen n Umbilical hernia (disorder) Active Problem 11/02/2020 Medical Group,[facility] [place] ALTERED Diagnosis Active 2017-12-31 Me moria MENTAL 22:28:00 l STATUS, ALTERED Brennen n UNSPECIFIE MENTAL D STATUS, UNSPECIFIE D Active [facility] UNSPECIFIE Diagnosis Active 2018-01-07 Memoria D INJURY 22:03:00 l OF URETER, Brennen n INITIAL EN UNSPECIFIE D INJURY OF URETER, INITIAL EN Active [facility] AMS/ UTI/ Diagnosis Active 2018-01-01 Memoria DIRECT 19:23:00 l ADMIT AMS/ [place] UTI/ DIRECT ADMIT Active [facility] DJD DJD Problem Active Univers (degenerat (degenerat HL7.CCDAR2 ity of [place] joint [place] disease), disease), Phys ici lumbar lumbar ans Lumbar Lumbar Problem Active Univers pain pain HL7.CCDAR2 ity of [place] Physici ans Allergies, Adverse Reactions, Alerts Allergy Allergy Status Severity Reaction(s) Onset Inactive Treating Comm ents Source Name Type Date Date Clinician NKFA NKFA Active Memoria l Edmund No Known No Known Active Memori a Medicati Medicati l on on Edmund Allergie Allergie s s Social History Social Habit Start Date Stop Date Quantity Comments Source Sex Assigned At [facility] Tobacco use and 2018-05-14 2018-05-14 Never used [facility] - exposure 00:00:00 00:00:00 [facility] Alcohol intake 2018-05-14 2018-05-[address] [facility] Álvarez es - 00:00:00 00:00:00 non-drinker of Medical Ce nter alcohol (finding) Tobacco Comment 2018-04-30 2018-04-30 quit [address] [facility] - 00:[facility]00 00:00:00 [facility] Social History 2017-12-18 2017-12-18 [facility] maryann 16:53:06 16:53:06 Smoking Status Start Date Stop Date Source Never smoker [facility] Former smoker 2018-05-14 00:00:00 2018-05-14 00:00:00 [facility] Medications Ordered Filled Start Stop Current Ordering Indication Dosage Frequency Signature Comments Components Source Medication Medication Date Date Medication? Clinician (SIG) Name Name lisinopril 2019-0 Yes 20 mg = 1 Me moria 20 mg oral 2-24 tab, PO, l tablet 17:14: Daily, 0 Edmund 00 Refill(s) Aspirin 81 2019-0 Yes 81 mg = 1 Me moria MG Enteric 2-24 tab, PO, l Coated 17:14: Daily, # Edmund Tablet 00 90 tab, 3 Refill(s) NovoLog 2020-0 Yes SUB-Q, Memoria 2-24 TID-Before l 17:14: Meals, 0 [place] 00 Refill(s) lisinopril 2018- Yes 40 mg = 1 Me moria 40 mg oral 8-26 tab, PO, l tablet 15:26: Daily, 0 Edmund 00 Refill(s) apixaban 5 Yes 5 mg = 1 Mem oria MG Oral 3-29 tab, PO, l Tablet 19:59: BID, # 180 Larissa nn [Eliquis] 56 tab, 3 Refill(s), Pharmacy: [facility] [id number] lisinopril 20190 Yes 5 mg = 1 Mem oria 5 mg oral 2-25 tab, PO, l tablet 16:45: BID, 0 [place] 00 Refill(s) sitagliptin 2019-0 Yes 50 mg = 1 M emoria 50 MG Oral 2-25 tab, PO, l Tablet 16:45: Daily, 0 Edmund [Januvia] 00 Refill(s) lisinopril 0 Yes 20mg QD Take [address] (PRINIVIL,Z 05-16 by mouth Luke s - ESTRIL) 20 14:03: daily. Medic al MG tablet Center amLODIPine Yes 5mg QD Take [address] (NORVASC) 5 05-16 by mouth Luke s - MG tablet [...] mouth Medica l 24 hr 36 daily. [place] capsule travoprost 2017-0 Yes 1[drp] QD Place [address] (TRAVATAN 9-07 drop into [facility] - Z) 0.004 % 14:03: both eyes Me dical Drop 36 nightly. Center ophthalmic drops brimonidine 2017-0 Yes 1[drp] QD [...] tablet 14:03: daily. Medica l 36 Center atorvastati 2017-0 Yes 40mg QD Take [address] [facility] (LIPITOR) 9-07 by mouth Luke s - 40 MG 14:03: daily. Medical tablet 36 Center Ciprofloxac 2018-0 Yes 250 mg = 1 Memoria in 250 MG 6-18 tab, PO, l Oral Tablet 15:22: Q12H, X 7 H ermann [Cipro] day, # 14 tab, 0 Refill(s), Pharmacy: [facility] [id number] Eliquis No Notes: Memoria 01-02 Same as: l 22:00: Eliquis Edmund 00 Acetaminoph Yes 1 tab, PO, Memoria [...] ophthalmic 01-02 (Same As: l 02:00: Timoptic, [place] Betimol) metoprolol No Notes: Memor ia tartrate 01-02 (Same as: l 02:00: Lopressor) [place] brimonidine No Notes: Ryan melodie ophthalmic 4-26 (Same As: l 02:00: Alphagan) latanoprost No Notes: Ryan melodie ophthalmic 4-26 Keep l 02:00: refrigerat ed. (Same as:Xalatan ) Opened bottle may be stored at room temperatur e for 6 weeks Magnesium No Notes: Memori a Sulfate -25 WASTE: F/P l 23:00: - Sink; E Edmund - [facility] Bin travoprost No 1 drp, Memor ia 0.04 MG/ML - Route: l Ophthalmic 22:00: BOTH EYES, H ermann Solution 00 Drug Form: [Travatan] SOLN, Dosing Weight 93.295, kg, QPM, Start date: 01/01/18 17:00:00 CDT, Duration: 30 day, Stop date: 01/30/18 17:00:00 CDT Protonix No Notes: Memoria 4-25 Tablet l 16:30: should not be chewed or crushed. Docusate No Notes: Memoria 4-25 (Same as: l 14:00: Colace) (Do Not Crush) albumin No Notes: Memoria human 25% 4-25 LOT#: l intravenous 10:48: [place] solution 00 ___ Mfg: WASTE: F/P - [...] melodie 4-25 (Same As: l 05:00: Rocephin). Use with 100 mL NS and [...] 4-25 not exceed l 04:07: 4 gm/day. Edmund 00 (Same as: Tylenol) Acetaminoph No Notes: Ryan melodie en 325 MG / 4-25 (Same as: l Hydrocodone 04:07: Schaller Larissa nn Bitartrate 00 325/5) Do 5 MG Oral not exceed Tablet 4gm/day of acetaminop hen. Sodium 2018-0 No 1,000 mL, Memori a Chloride 4-25 Rate: 75 l 0.9% IV 04:07: ml/hr, [place] 1,000 mL 00 Infuse over: 13.3 hr, Route: IV, Dosing Weight 93.295 kg, Total Volume: 1,000, Start date: 12/31/17 23:07:00 CDT, Duration: 30 day, Stop date: 01/30/18 23:06:00 CDT, 2.19, m2 glycopyrrol 2017-0 No Route: IV, Memoria ate (ANES) 16 Drug form: l 21:01: INJ, ONCE, Stop date: 12/23/17 16:01:00 CDT neostigmine 2017-0 No Route: IV, Memoria (ANES) 4-16 Drug form: l 21:01: INJ, ONCE, Stop date: 12/23/17 16:01:00 CDT ondansetron 2017-0 No Route: IV, Memoria (ANES) 16 Drug form: l 20:52: INJ, ONCE, Stop date: 12/23/17 15:52:00 CDT Ondansetron 2017-0 No 4 mg, Memor ia 16 Route: l 19:45: IVP, ONCE, Dosing Weight 84.091, kg, PRN Nausea & Vomiting, Start date: 12/23/17 14:45:00 CDT Morphine 2017-0 No 2 mg, Memoria 416 Route: l 19:45: IVP, Edmund 00 Q5Min, Dosing Weight 84.091, kg, PRN Pain Score 4-6, Start date: 12/23/17 14:45:00 CDT, Duration: 5 doses or times, Stop date: Limited # of times Naloxone 2018-0 No 0.4 mg, Memori a 4-16 Route: l 19:45: IVP, [place] 00 Q2MIN, Dosing Weight 84.091, kg, PRN Narcotic Reversal, Start date: 12/23/17 14:45:00 CDT, Duration: 8 doses or times, Stop date: Limited # of times Flumazenil 2017-0 No 0.2 mg, Ryan melodie 4-16 Route: l 19:45: IVP, PRN, Edmund 00 Dosing Weight 84.091, kg, PRN Benzodiaze pine Reversal, Initial dose, Start date: 12/23/17 14:45:00 CDT, Duration: 30 day, Stop date: 01/22/18 14:44:00 CDT Hydromorpho 2018-0 No 0.5 mg, Mem oria ne 4-16 Route: l 19:45: IVP, [place] 00 Q5Min, Dosing Weight 84.091, kg, PRN Pain Score 7-10, Start date: 12/23/17 14:45:00 CDT, Duration: 4 doses or times, Stop date: Limited # of times Hydralazine 2018-0 No 10 mg, Ryan melodie 4-16 Route: l 19:45: IVP, [place] 00 Q20Min, Dosing Weight 84.091, kg, PRN Elevated BP, Start date: 12/23/17 14:45:00 CDT, Duration: 2 doses or times, Stop date: Limited # of times rocuronium 2017- No Route: IV, M emoria (ANES) 4-16 [...] 4-16 Drug form: l 19:02: INJ, ONCE, Edmund 00 Stop date: 12/23/17 14:02:00 CDT acetaminoph 2017-0 No Route: IV, Memoria en (ANES) 4-16 Drug form: l 10 mg 18:24: INJ, Start Brennen n 00 date: 12/23/17 13:24:00 CDT, Stop date: 12/23/17 14:24:00 CDT Lactated No Route: IV, Mem oria Ringers -16 Total l Injection 18:12: Volume: Larissa nn IV (ANES) 00 1,000, 1000 mL Start date: 12/23/17 13:12:00 CDT, Stop date: 12/23/17 14:12:00 CDT Lidocaine 2017- No 0.5 mL, Memor ia Hydrochlori 12-23 Route: l de 10 MG/ML 16:00: INTRADERM, [place] Injectable 00 Dosing Solution Weight 84.091, kg, ONCALL, Start date: 12/23/17 11:00:00 CDT, Duration: 1 doses or times Sodium 2017-0 No 1,000 mL, Memori a Chloride 12-23 Rate: 25 l 0.9% IV 15:33: ml/hr, [place] 1000 mL 00 Infuse over: 40 hr, Route: IV, Dosing Weight 84.091 kg, Total Volume: 1,000, Start date: 12/23/17 10:33:00 CDT, Duration: 30 day, Stop date: 01/22/18 10:32:00 CDT, 2.06, m2 Ancef + Yes Notes: Memoria sterile -16 (Same As: l water 20 mL 15:33: Ancef, Herm donavon 00 Kefzol) MEDICATION WASTE Product Size: 1000 mg Product Wasted: ___ mg amLODIPine 2017- Yes 5 mg = 1 Mem oria 5 mg oral 3-26 tab, PO, l tablet 18:46: Daily, # Edmund 05 90 tab, 1 Refill(s), Pharmacy: [facility] [id number], DUE FOR AN OFFICE VISIT. PLEASE CALL DR. CRUZ' S OFFICE TO MAKE AN APT. lisinopril No 20 mg = 1 Me moria 20 mg oral 3-26 tab, PO, l tablet 18:44: Daily, # Edmund 59 90 tab, 1 Refill(s), Pharmacy: [facility] [place] [address], DUE FOR AN OFFICE VISIT. PLEASE CALL DR. COLVIN 'S OFFICE TO MAKE AN APT. Metoprolol Yes 100 mg = 1 M emoria Succinate 3-26 tab, PO, l ER 100 mg 18:44: Daily, # Herm donavon oral 22 90 tab, 1 tablet, Refill(s), extended Pharmacy: release [facility] [place] [address] atorvastati Yes 40 mg = 1 M emoria n 40 mg 3-26 tab, PO, l oral tablet 18:44: Daily, # He rmann 00 90 tab, 1 Refill(s), Pharmacy: [facility] [place] [address] dapaglifloz Yes 5 mg = 1 Me [...] nn [Eliquis] 44 tab, 1 Refill(s), Pharmacy: [facility] [place] [address] PriLOSEC 10 PriLOSEC 10 Yes U nivers MG CPDR MG CPDR ity of [place] Physici ans Atorvastati Atorvastati Yes U nivers [...] ity of Tablet Tablet [place] Physici ans Eliquis 2.5 Eliquis 2.5 Yes U nivers MG Oral MG Oral ity of Tablet Tablet [place] Physici ans Metoprolol Metoprolol Yes Uni vers Tartrate 25 Tartrate 25 i ty of MG Oral MG Oral [place] Tablet Tablet Physici ans GlipiZIDE GlipiZIDE Yes Unive rs 10 MG Oral 10 MG Oral ity of Tablet Tablet [place] [facility]ici [facility] Vital Signs Vital Name Observation Time Observation Value Comments Source Systolic (mm Hg) 2020-02-24 14:38:00 Ryan martinez [place] Diastolic (mm Hg) 2020-02-24 14:38:00 [facility] Heart Rate 2020-02-24 14:38:00 [facility] Height 2020-02-24 14:38:00 182.88 cm [facility] Weight 2020-02-24 14:38:00 [facility] BMI Calculated 2020-02-24 14:38:00 Brian Medina Systolic (mm Hg) 2019-11-02 17:12:00 Ryan juan [place] Diastolic (mm Hg) 2019-11-02 17:12:00 Mem orial [place] Heart Rate 2019-11-02 17:12:00 [facility] Height 2019-11-02 17:12:00 180.34 cm [facility] Weight 2019-11-02 17:12:00 [facility] BMI Calculated 2019-11-02 17:12:00 Memori al [place] Systolic (mm Hg) 2019-05-04 15:24:00 Ryan rial [place] Diastolic (mm Hg) 2019-05-04 15:24:00 Mem orial [place] Heart Rate 2019-05-04 15:24:00 [facility] [place] Height 2019-05-04 15:24:00 180.34 cm Memorial [place] Weight 2019-05-04 15:24:00 Memorial [place] BMI Calculated 2019-05-04 15:24:00 Memori al [place] BMI Calculated 2018-11-03 16:43:00 Memori al [place] Weight 2018-11-03 16:43:00 [facility] [place] Height 2018-11-03 16:43:00 177.8 cm Memorial [place] Systolic (mm Hg) 2018-11-03 16:43:00 Ryan rial [place] Diastolic (mm Hg) 2018-11-03 16:43:00 Mem orial [place] Heart Rate 2018-11-03 16:43:00 [facility] [place] Height 2018-09-17 10:37:00 71 [in_us] [facility] Weight 2018-09-17 10:37:00 198 [lb_av] [facility] Body Mass Index 2018-09-17 10:37:00 27.62 kg/m2 Unive rsity of Calculated [place] Physician s Heart Rate 2018-05-05 16:44:00 Memorial [place] Systolic (mm Hg) 2018-05-05 16:44:00 Ryan rial [place] Diastolic (mm Hg) 2018-05-05 16:44:00 Mem orial [place] Weight 2018-05-05 16:44:00 [facility] [place] BMI Calculated 2018-05-05 16:44:00 Memori al [place] Height 2018-05-05 16:44:00 177.8 cm Memorial [place] BMI Calculated 2018-02-24 15:01:00 Memori al [place] Weight 2018-02-24 15:01:00 [facility] [place] Height 2018-02-24 15:01:00 182.88 cm Memorial [place] Systolic (mm Hg) 2018-02-24 15:01:00 Ryan rial [place] Diastolic (mm Hg) 2018-02-24 15:01:00 Mem orial [place] Heart Rate 2018-02-24 15:01:00 [facility] [place] Temperature Oral (F) 2018-01-02 21:08:00 97.8 F [facility] [place] Systolic (mm Hg) 2018-01-02 21:08:00 Ryan rial [place] Diastolic (mm Hg) 2018-01-02 21:08:00 Mem orial [place] Respitory Rate 2018-01-02 21:08:00 Memori al [place] Heart Rate 2018-01-02 21:08:00 Memorial [place] Respitory Rate 2018-01-02 16:25:00 Memori al [place] Temperature Oral (F) 2018-01-02 16:25:00 98.2 F [facility] [place] Heart Rate 2018-01-02 16:25:00 Memorial [place] Systolic (mm Hg) 2018-01-02 16:25:00 Ryan rial [place] Diastolic (mm Hg) 2018-01-02 16:25:00 Mem orial [place] Heart Rate 2018-01-02 12:58:00 Memorial [place] Respitory Rate 2018-01-02 12:58:00 Memori al Demund Systolic (mm Hg) 2018-01-02 12:58:00 Ryan rial [place] Diastolic (mm Hg) 2018-01-02 12:58:00 Mem orial [place] Temperature Oral (F) 2018-01-02 12:58:00 98.3 F [facility] [place] BMI Calculated 2018-01-01 03:40:00 Memori al [place] Weight 2018-01-01 03:40:00 [facility] [place] Height 2018-01-01 03:40:00 182.88 cm Memorial [place] Systolic (mm Hg) 2017-12-23 21:45:00 Ryan rial [place] Diastolic (mm Hg) 2017-12-23 21:45:00 Mem orial [place] Respitory Rate 2017-12-23 21:45:00 Memori al [place] Systolic (mm Hg) 2017-12-23 21:39:00 Ryan rial [place] Diastolic (mm Hg) 2017-12-23 21:39:00 Mem orial [place] Respitory Rate 2017-12-23 21:39:00 Memori al [place] Systolic (mm Hg) 2017-12-23 21:24:00 Ryan rial [place] Diastolic (mm Hg) 2017-12-23 21:24:00 Mem orial [place] Respitory Rate 2017-12-23 21:24:00 Memori al [place] Heart Rate 2017-12-23 15:46:00 [facility] [place] BMI Calculated 2017-12-18 15:02:00 Memori al [place] Weight 2017-12-18 15:02:00 [facility] [place] Height 2017-12-18 15:02:00 180.34 cm Memorial [place] BMI Calculated 2017-11-28 16:03:00 Memori al [place] Heart Rate 2017-11-28 16:03:00 [facility] [place] Systolic (mm Hg) 2017-11-28 16:03:00 Ryan rial [place] Diastolic (mm Hg) 2017-11-28 16:03:00 Mem orial [place] Height 2017-11-28 16:03:00 177.8 cm [facility] [place] Weight 2017-11-28 16:03:00 [facility] [place] Procedures Procedure Date / Time Performing Clinician Source Performed Pre Op Promise 29 Survey 2018-09-10 00:00:00 [facility] Measurement of 2018-02-24 15:04:00 Memorial dickson post-voiding residual urine and/or bladder capacity by ultrasound, non-imaging CABG - Coronary artery [facility] [place] bypass graft<sup>1</sup> Cardiac [facility] [place] catheterization<sup>2</s up> Carotid [facility] [place] endarterectomy<sup>3</beckett p> Repair of diaphragmatic [facility] [place] hiatal hernia<sup>4</sup> History of Heart Surgery [facility] History [facility] Internal Carotid Artery Physicia ns Plan of Care Planned Activity Planned Date Details Comments Source Future Scheduled 2020-05-10 INFLUENZA VACCINE (#1) [facility] Test 00:00:00 [code = INFLUENZA Medical Ce nter VACCINE (#1)] Future Scheduled 2019-09-[address] [facility] - Test 00:00:00 (12+) [code = Medical Center DEPRESSION SCREENING (12+)] Future Scheduled 2005-07-[address] [facility] [facility] - Test 00:00:00 WELLNESS (YEAR 2 or Medical Center FIRST YEAR if no IPPE) [code = MEDICARE ANNUAL WELLNESS (YEAR 2 or FIRST YEAR if no IPPE)] Future Scheduled 2004 PNEUMOCOCCAL 65+ YRS [facility] - Test 00:00:00 (1 of 1 - Medical Center [id number] PCV13) [code = PNEUMOCOCCAL 65+ YRS (1 of 1 - [id number] PCV13)] Encounters Start End Encounter Admission Attending Care Care Encounter Source Date/Time Date/Time Type Type Clinicians Facility Department ID 2020-10-31 2020-10-31 [facility] [id number] 09:30:00 09:30:00 Syed Samaniego 15 2020-02-24 2020-02-24 Outpatient Clif [facility] [id number] 09:00:00 23:59:59 Gabrielle Figueroa 16 2019-11-02 2019-11-02 Outpatient Familia [facility] [id number] 11:00:00 23:59:59 Syed Samaniego 14 2019-05-04 2019-05-04 Outpatient Familia [facility] [id number] 10:15:00 23:59:59 Syed Samaniego 13 2018-10-22 2018-11-20 Outpatient Toro [id number] 08:38:00 23:59:00 Yakov [id number] [place] [id number] 2018-11-03 2018-11-03 Outpatient Familia [facility] [id number] 10:30:00 23:59:59 Syed Samaniego 12 2018-09-22 2018-10-21 Outpatient Trung [id number] 09:51:00 23:59:00 Yakov [id number]. [id number] [place] [id number] 2018-09-17 2018-09-17 [facility] [id number] Univers 09:30:00 09:30:00 t; Carlos Eduardo YAÑEZ [facility] of [place] ENGEL S Allison Wahl M.D. [place] 2018-05-05 2018-05-05 Outpatient Familia [facility] [id number] 11:15:00 23:59:59 Syed Samaniego 09 2018-03-19 2018-03-20 Outpatient [facility] [id number] 13:39:00 23:59:59 06 2018-02-24 2018-02-24 Outpatient JES Wasserman [facility] [id number] 09:15:00 23:59:59 Robbi 11 2018-01-16 2018-01-16 [place] [id number] 14:15:00 14:15:00 Robbi 10 2018-01-16 2018-01-16 Outpatient Lux MG [facility] [id number] 14:15:00 14:15:00 Robbi 10 2018-01-06 2018-01-07 Outpatient MG [facility] [id number] 11:57:00 23:59:59 05 2017-12-31 2018-01-02 Outpatient Asad, Latonya Latonya [facility] [id number] 22:14:00 16:55:00 A 14 2017-12-31 2017-12-31 Outpatient Katy [facility] [id number] 22:12:00 22:12:00 Neri Javed 2017-12-23 2017-12-23 Outpatient Gomez, Fer [facility] [id number] 05:43:00 17:20:00 Efren Jadiel 2017-11-28 2017-11-28 Outpatient Nancy [facility] [id number] 10:45:00 23:59:59 Laith Wilson Max 2017-11-28 2017-11-28 Outpatient Nancy [facility] [id number] 10:45:00 23:59:59 Laith Wilson Max 2017-07-19 2017-07-20 Outpatient [facility] [id number] 16:08:00 23:59:59 04 2017-04-30 2017-04-30 Appointrene [facility] [id number] Univers 11:30:00 11:30:00 t; Carlos Eduardo YAÑEZ it y of Sandra [facility] Physici M.D. ans Results Test Test Test Results Result Source Description Time Comments Comments [U] XRAY SPINE 2018-09- Images acquired, not [facility] of LUMBOSACRAL MIN 09 reported on this Qasim as 4 VWS [id number] 11:15:00 accession number. Jett ians [U] XRAY HIPS 2018-09- Images acquired, not U niversity of BILATERAL MIN 2 09 reported on this Qasim as VWS AND AP 07:43:00 accession number. Ailyn VIRGEN [id number] TISSUE EXAM 2018-05- Surgical Pathology 10 Report 17:28:00 Case: [id number] Authorizing Provider: Byron Ardon MD Collected: 05/13/2018 1448 Ordering Location: [facility] Received: 05/14/2018 0818 SERVICES Pathologist: [...] FAST MICROORGANISMS Signing Pathologist Direct Phone Line: [phone] ly signed by Eze Guzman MD on 05/19/2018 at 5:28 PMPreliminary result electronically signed by Eze Guzman MD on 05/16/2018 at 11:49 AMSpecial stains for AFB and GMS were negative for acid fast and fungal microorganisms, respectively. [id number] I5Luslioxdky bladder emptying A. Mesh; B. Bladder with [...] surface throughout. No discrete masses are identified. Metal Polisher sections are submitted in cassettes C1-C19. DB/plPerformed POCT-GLUCOSE METER 2018-05-16 07:37:00 Test Item Value Reference Range Interpretation Comme nts POC-GLUCOSE METER (BEAKER) (test 184 mg/dL 70-110 H TESTED AT [facility] [address] code = 1538) [facility] 7703 0 BASIC METABOLIC [id number] 06:19:00 Test Item Value Reference Range Interpretation [...] CORPUSCULAR HEMOGLOBIN CONC 32.2 GM/DL 32.3-36.5 L ([facility] (test code = 752) RED CELL DISTRIBUTION WIDTH 13.2 % 11.6-14.4 ([facility] (test code = 412) PLATELET COUNT ([facility] (test 191 K/CU MM 150-450 code = 756) MEAN PLATELET VOLUME ([facility])) 10.6 fL 9.4-12.4 (test code = 754) NUCLEATED RED BLOOD CELLS 0 /100 WBC 0-0 ([facility] (test code = 413) POCT-GLUCOSE [id number] 21:51:00 Test Item Value Reference Range Interpretation Comments POC-GLUCOSE METER 216 mg/dL 70-110 H TESTED AT [place] [address] ([facility] (test code = TALA Shultz [facility] 1538) [id number] POCT-GLUCOSE [id number] 19:28:00 Test Item Value Reference Range Interpretation Comments POC-GLUCOSE METER 186 mg/dL 70-110 H TESTED AT [place] [address] ([facility] (test code = TALA Shultz [facility] 1538) [id number] POCT-GLUCOSE [id number] 16:57:00 Test Item Value Reference Range Interpretation Comments POC-GLUCOSE METER 215 mg/dL 70-110 H TESTED AT [place] [address] ([facility] (test code = TALA Shultz [facility] 1538) [address] POCT-GLUCOSE [id number] 12:43:00 Test Item Value Reference Range Interpretation Comments POC-GLUCOSE METER 223 mg/dL 70-110 H TESTED AT [place] [address] ([facility] (test code = TALA Shultz [facility] 1538) [address] POCT-GLUCOSE [id number] 08:13:00 Test Item Value Reference Range Interpretation Comments POC-GLUCOSE METER 157 mg/dL 70-110 H TESTED AT [place] [address] ([facility] (test [facility] = [facility] 1538) [address] GENTAMICIN LEVEL, [id number] 05:51:00 Test Item Value Reference Range Interpretation Comments GENTAMICIN TROUGH ([facility] (test 1.9 ug/mL 0.5-1.0 H code = 398) Dosing Target Level (mcg/mL)1-1.5 mg/kg q 8-12 HR 0.5-1.03-7 mg/kg q 24 HR <0.5BASIC METABOLIC [id number] 05:47:00 Test Item Value Reference Range Interpretation [...] 0-0 (BEAKER) (test code = 413) POCT-GLUCOSE [id number] 21:47:00 Test Item Value Reference Range Interpretation Comments POC-GLUCOSE METER 220 mg/dL 70-110 H TESTED AT [place] [address] ([facility] (test code = [facility] 1538) [id number] POCT-GLUCOSE [id number] 17:06:00 Test Item Value Reference Range Interpretation Comments POC-GLUCOSE METER 211 mg/dL 70-110 H TESTED AT [place] [address] ([facility] (test code = [facility] 1538) [address] POCT-GLUCOSE [id number] 11:44:00 Test Item Value Reference Range Interpretation Comments POC-GLUCOSE METER 225 mg/dL 70-110 H TESTED AT [place] [address] ([facility] (test code = [facility] 1538) [address] POCT-GLUCOSE [id number] 08:29:00 Test Item Value Reference Range Interpretation Comments POC-GLUCOSE METER 201 mg/dL 70-110 H TESTED AT [place] [address] ([facility] (test code = [facility] 1538) [address] BASIC METABOLIC [id number] 06:04:00 Test Item Value Reference Range Interpretation [...] 0-0 (BEAKER) (test code = 413) POCT-GLUCOSE [id number] 21:39:00 Test Item Value Reference Range Interpretation Comments POC-GLUCOSE METER 275 mg/dL 70-110 H TESTED AT [facility] 6720 (BEAKER) (test code = TALA VINCENT 1538) [address] BASIC METABOLIC [id number] 19:42:00 Test Item Value Reference Range Interpretation [...] 0-0 (BEAKER) (test code = 413) POCT-GLUCOSE [id number] 18:50:00 Test Item Value Reference Range Interpretation Comments POC-GLUCOSE METER 197 mg/dL 70-110 H TESTED AT [facility] 6720 ([facility] (test code = TALA Shultz [facility] 1538) [address] VANCOMYCIN LEVEL, [id number] 12:29:00 Test Item Value Reference Range Interpretation Comments VANCOMYCIN TROUGH ([facility] (test 20.9 ug/mL 10.0-20.0 H code = 522) Please draw trough at 1330 (30 minutes prior to scheduled vancomycin dose at 1400).POCT-GLUCOSE [id number] 07:17:00 Test Item Value Reference Range Interpretation Comments POC-GLUCOSE METER 148 mg/dL 70-110 H TESTED AT [facility] 67 ([facility] (test code = TALA Shultz [facility] 1538) [address] POCT-GLUCOSE [id number] 06:09:00 Test Item Value Reference Range Interpretation Comments POC-GLUCOSE METER 149 mg/dL 70-110 H TESTED AT [place] [address] ([facility] (test code = TALA Shultz [facility] 1538) [address] BASIC METABOLIC [id number] 06:04:00 Test Item Value Reference Range Interpretation [...] 0-0 (BEAKER) (test code = 413) POCT-GLUCOSE [id number] 21:17:00 Test Item Value Reference Range Interpretation Comments POC-GLUCOSE METER 164 mg/dL 70-110 H TESTED AT [place] [address] ([facility] (test code = TALA Shultz [facility] 1538) [address] POCT-GLUCOSE [id number] 16:39:00 Test Item Value Reference Range Interpretation Comments POC-GLUCOSE METER 225 mg/dL 70-110 H TESTED AT [place] [address] ([facility] (test code = RHIANNAMIKAYLA Shultz [place] 1538) [address] POCT-GLUCOSE [id number] 12:09:00 Test Item Value Reference Range Interpretation Comments POC-GLUCOSE METER 186 mg/dL 70-110 H TESTED AT [place] [address] ([facility] (test code = RHIANNAMIKAYLA Shultz [facility] 1538) [address] POCT-GLUCOSE [id number] 08:50:00 Test Item Value Reference Range Interpretation Comments POC-GLUCOSE METER 194 mg/dL 70-110 H TESTED AT [place] [address] (BEAKER) (test code = TAL[place] 1538) [address] BASIC METABOLIC [id number] 06:04:00 Test Item Value Reference Range Interpretation [...] 0-0 (BEAKER) (test code = 413) POCT-GLUCOSE [id number] 00:11:00 Test Item Value Reference Range Interpretation Comments POC-GLUCOSE METER 143 mg/dL 70-110 H TESTED AT [place] [address] ([facility] (test code = [facility] Lexii [facility] 1538) [address] POCT-GLUCOSE [id number] 17:16:00 Test Item Value Reference Range Interpretation Comments POC-GLUCOSE METER 261 mg/dL 70-110 H TESTED AT [place] [address] ([facility] (test code = [facility] Lexii [facility] 1538) [address] POCT-GLUCOSE [id number] 10:04:00 Test Item Value Reference Range Interpretation Comments POC-GLUCOSE METER 153 mg/dL 70-110 H TESTED AT [place] [address] ([facility] (test code = [facility] 1538) [address] BASIC METABOLIC [id number] 17:28:00 Test Item Value Reference Range Interpretation [...] GFR I S NOT APPLICABLE FOR DIALYSIS ARCELIA GREENE [id number] 17:26:00 Test Item Value Reference Range Interpretation Comments PARTIAL THROMBOPLASTIN TIME 28.7 seconds 22.5-36.0 (BEAKER) (test code = 760) PROTHROMBIN TIME/[id number] 17:25:00 Test Item Value Reference Range Interpretation [...] (test code = 2801) RAD, CHEST, 2 [id number] 16:06:00Reason for exam:->screening prior to anesthesiaFINAL REPORT [...] MDReport Verified Date/Time: 04/30/2018 16:06:13 Reading Location: [address] Radiology Reading Room CHEM [id number] 08:35:002.2[facility] PvqsuxwYWUJKOPVXXOS8436-97-02 08:35:0012.7[facility] OnslctjAQROSBPATPNT6514-63-49 08:35:0028[facility] [place] CXQFURGZOSBQ9502-66-00 08:35:007.7[facility] WtteigoRHXCZGGCOEGW0562-83-48 08:35:0012[facility] OifiouvHKBBXTQOIQJB7155-76-18 08:35:45695Hoyyiurq [place] BWAGCXMAZKLF7483-06-02 08:35:65180Rcpehnxv QlkfevyZGFQHHUYAGWO1546-40-84 08:35:003.7[facility] GpxnmwhQXZFBRZPTVVR4098-12-35 08:35:0085[facility] SORDKACIWVOJ3593-61-54 08:35:60567Rxtfqrqz LtriusbQRTGUCIXPITW2462-40-09 08:35:000.81[facility] SlmfduxRSSSQNIIMP1483-38-44 08:35:008.2[facility] DJKPEVIWWS6921-01-51 08:35:07014Nbdvdvtx HrtdzveCILNESJSJZ4860-41-97 08:35:00 14.0[facility] MdwbsfzDTORHNWVGA9910-76-27 08:35:009.7[facility]annHEMATOLOGY 2018-01-02 08:35:003.93[facility] HskgxuuUYOKAVELBW4434-43-84 08:35:0012.0[facility] OhaxpqdLTQACCESKM2880-73-96 08:35:0035.4[facility] AsdmsumQTOSQBVWYL4956-82-38 08:35:0090.1[facility] SaefolmMFTZXIGZUA1241-24-77 08:35:00 Test Item Value Reference Range Interpretation Comments MCH (test code = MCH) 30.6 pg 27.0-31.0 [facility] KcdfxmbNHSLYNUVTC6261-30-13 08:35:0034.0[facility]annHEMATOLOGY 2018-01-02 08:35:000.1[facility] OzkdjmzVESDJPZHPO9367-13-98 08:35:0066.9[facility] YuwapzzEHHVWUZMZW7036-11-85 08:35:004.7[facility] QrysrbcHMKDNZJYPD3884-02-78 08:35:001.1[facility] XfywblvQVLOWZMKST7407-28-09 08:35:0019.1[facility] [place] RTHSYZGPJU8405-43-04 08:35:008.2[facility] OpimjftMERNTMHHII6108-00-76 08:35:006.5 [facility] WdnnelfXDCCXFLMBE0807-69-33 08:35:000.5[facility]annHEMATOLOGY 2018-01-02 08:35:000.8[facility] MvripgmOHPRRKEAMC7071-79-69 08:35:001.9[facility] HermannCARDIAC YMRAYYB7327-41-69 05:05:59144Oeltxbnh HermannCHEM LVVOF2285-46-31 05:05:001.4[facility] XfmvclhQNLUNJGQIPEI0403-50-42 05:05:0010.5[facility] [place] SNCXMZWKDDMK0816-46-00 05:05:0033[facility] BkvvatvEMZXSHZWHVTJ5935-90-79 05:05:00 8.2[facility] DpseeqvJXGIPKIFYOOY9140-14-01 05:05:003.5[facility] [place] LLAXPNATMWEE8980-35-01 05:05:88438Rglnxmto AwyjawjJYFJUWLLVEFN9234-58-08 05:05:68956Yqmsmile CuvusdiBJZTZGLGNSOG9267-30-33 05:05:0018[facility] WYCRJQIUFZVM0844-53-48 05:05:64275Vcxyiqwl QjwzxeiPXQOFZRZNZID6113-74-42 05:05:0080[facility] IytnsrqLNXWWMKGSMGV3625-20-33 05:05:000.92[facility] [place] ROPLZHQNRN1267-76-08 05:05:006.9[facility] YnsdxhkKPOJVITYQR7333-83-78 05:05:001.9 [facility] EqxcjsyKFNJFJNCDJ2530-86-33 05:05:000.8[facility]annHEMATOLOGY 2018-01-01 05:05:000.1[facility] BmykttcHMPUWMYKDW3698-31-30 05:05:000.6[facility] PhoyrylHAATEGFIDF3890-00-19 05:05:0066.9[facility] VhjrizhLBQBNFLMBA8913-81-16 05:05:000.9[facility] YydeloyVBSZDXUFOD7779-48-11 05:05:005.6[facility] ZTBYIZARAX5974-61-02 05:05:007.8[facility] TbrlcouFMQWKSKQPZ1798-67-69 05:05:00 18.8[facility] WaifkbqZITBNFGKZM5614-88-92 05:05:0014.3[facility] HermannHEMATOLOGY 2018-01-01 05:05:14545Tsgwufcd OrnhicaDTUUIZOJVB6299-11-91 05:05:008.2[facility] GnjwvqlQESWROOQDM9692-48-66 05:05:0010.3[facility] DhymfidDRKRJXUUWK7714-56-85 05:05:0033.9[facility] MaezyxyWOHPBVOQQO0320-03-55 05:05:004.35[facility] [place] OBFLFVDACB7517-96-85 05:05:0013.3[facility] HzxxibsCDGSRSTEZJ7190-72-27 05:05:00 39.3[facility] RvgcamsATEKEYAFNF7457-44-02 05:05:0090.5[facility] HermannHEMATOLOGY 2018-01-01 05:05:00 Test Item Value Reference Range Interpretation Comments MCH (test code = MCH) 30.6 pg 27.0-31.0 [facility]ann[facility] AND OFIBG2240-07-11 04:41:45773Omqntlns HermannURINE AND RAXVP1646-47-81 04:41:0085[facility] AND WYGAQ9378-92-08 04:41:00 Moderate *ABN*(12/31/17 11:41 PM)[facility] QOKTP2017-99-98 04:41:004.0[facility] OFFLN3582-98-16 04:41:00 Test Item Value Reference Range Interpretation Comments UA pH (test code = UA pH) 7.0 1 5.0-8.0 [facility] LIZDX2309-08-08 04:41:00Moderate *ABN*(12/31/17 11:41 PM)[facility] YTDAW9657-13-51 04:41:0072[facility] VEBLU6561-22-85 04:41:00Negative *NA*(12/31/17 11:41 PM)[facility] ESVQH7089-86-72 04:41:00Negative (12/31/17 11:41 PM)[facility] MMMJZ9310-09-59 04:41:00Slight *ABN*(12/31/17 11:41 PM)[facility] GPZYO0517-56-20 04:41:00 Test Item Value Reference Range Interpretation Comments UA Spec Grav (test code = UA Spec 1.018 1 Grav) [facility] ILOLK6418-79-99 04:41:00Dark Yellow *NA*(12/31/17 11:41 PM)[facility] WrugfkjXLFWGUZXNQPQ0771-52-51 15:30:004.3[facility] HGMZTZIBVGJH4785-46-43 15:30:16811Knbssppi ByqqrqvERJHQDMFRVOC8048-65-62 15:30:0028[facility] AbciefdISFLWERGFKAH9651-00-86 15:30:009.8[facility] GGWMAWHQEPHX1908-56-29 15:30:77037Btyumjuy WgjdpfcJYVIHTSCBCAZ3920-62-82 15:30:86989Srvsqcar OjoqkgyNATBAOISISLH3117-13-63 15:30:0017[facility] [place] DUBQVGUGOJBX8441-90-85 15:30:0063[facility] DinwwukGSJZSUDHNIHL4414-53-07 15:30:00 1.12[facility] OjuaolkPDTFFZQLDKCZ9662-24-83 15:30:0012.3[facility] [place] NZYDJDUDCN5229-61-38 15:30:0043.7[facility] VkqipttLQDWIFDHDU8597-21-62 15:30:00 14.7[facility]
--- NOTE | 2021-01-06 11:27 | RAD REPORT ---
EXAM DESCRIPTION: CT - Ct Stroke Brain Wo Cont - 01/06/2021 11:18 am CLINICAL HISTORY: RT SIDE WEAKNESS Headache, drowsiness, CVA symptomology COMPARISON: Head Brain Wo Cont dated 08/08/2020; Head Brain Wo Cont dated 05/25/2020 TECHNIQUE: All CT scans are performed using dose optimization technique as appropriate and may inclu de automated exposure control or mA/KV adjustment according to patient size. FINDINGS: No intracranial hemorrhage, hydrocephalus or extra-axial fluid collection.Advanced general ized brain atrophy is present with advanced periventricular and deep white matter chronic microvascul ar ischemic changes.No areas of brain edema or evidence of midline shift. Left vertebral artery is ca lcified. The paranasal sinuses and mastoids are clear. The calvarium is intact. IMPRESSION: No acute intracranial abnormality. The findings were discussed with Dr. Blakely in the emergency room on 01/06/2021 at 11:22 a.m. by ann pedersen.
[2021-01-06 11:35] LABS: Absolute Lymphocytes (CBC) 1.6 K/uL (0.7-4.9); Basophils % 1.1 % (0-1.3); Hematocrit 36.2 % (39.6-49.0); Lymphocytes % 17.9 % (15.3-44.8); MPV 9.9 fL (7.6-11.3); RBC Red Blood Cell Count 3.76 M/uL (4.33-5.43)
[2021-01-06 11:43] LABS: Protime INR 1.13
[2021-01-06 11:53] LABS: Potassium 4.6 mmol/L (3.5-5.1)
[2021-01-06] MEDS ORDERED: FOLIC ACID 5 MG/ML VIAL ONE (11:58)
[2021-01-06] MEDS ORDERED: FAMOTIDINE 20 MG/2 ML VIAL IV ONE (11:58)
[2021-01-06] MEDS ORDERED: NA CHLORIDE 0.9% 1,000 ML ONE (11:59)
[2021-01-06 12:09] LABS: Urine Blood Negative (Negative); Urine Glucose 1+ (Negative); Urine Protein Negative (Negative); Urine pH 6.5 (5.0-7.0)
--- NOTE | 2021-01-06 12:28 | RAD REPORT ---
EXAM DESCRIPTION: RAD - Chest Single View - 01/06/2021 12:13 pm CLINICAL HISTORY: possible stroke Chest pain. COMPARISON: Chest Single View dated 08/11/2020; Chest Single View dated 08/08/2020; Chest Single View dated 07/06/2020; Chest Single View dated 05/25/2020 FINDINGS: Portable technique limits examination quality. Mild interstitial pulmonary edema is noted. The heart is mildly prominent with changes of a prior CAB G. No displaced fractures. IMPRESSION: Mild CHF.
[2021-01-06] MEDS ORDERED: ACETAMINOPHEN 500 MG TAB PO PRN (12:39)
[2021-01-06] MEDS ORDERED: INSULIN GLARGINE 100 UNITS/ML SQ PRN (12:43)
[2021-01-06] MEDS ORDERED: D50W 25 GM/50 ML SYRINGE IV PRN (12:43)
[2021-01-06] MEDS ORDERED: GLUCAGON 1 MG/VIAL IM PRN (12:43)
--- NOTE | 2021-01-06 12:48 | P.HP ---
Certification for Inpatient Patient admitted to: Observation With expected LOS: <2 Midnights Patient will require the following post-hospital care: None Practitioner: I am a practitioner with admitting privileges, knowledge of patient current condition, hospital course, and medical plan of care. Services: Services provided to patient in accordance with Admission requirements found in Title 42 Section 412.3 of the Code of Federal Regulations Patient History Date of Service: 01/06/21 Reason for admission: TIA. History of Present Illness: 80 y o male pt with hx of DM type 2, HTN, HLD, Chronic A fib, Dementia who was brought tho the ED for work up of suspected stroke. He had c/o pain and weakness in the left leg and he was suspected to have issues with intracranial pathology because of is prior issue with CVA late last yr. he had a CT head and CTA Head and neck which were negative. After a bolus of fluid in the Ed, his symptoms subsided and he felt better. He was discussed with hospitalist team for observation admission and for neurology evaluation. He denied any issues with headache, blurry vision, fever, chills, neck pain, cough, dizziness, orthopnea, PND, leg swelling, change in vision. Allergies No Known Allergies Allergy (Verified 04/16/18 11:53) Home medications list reviewed: Yes Home Medications: Metformin HCl 1,000 mg PO BID 05/26/20 Brimonidine Tartrate/Timolol [Combigan 0.2%-0.5% Eye Drops] 1 gtt EACH EYE BID 07/07/20 Insulin Glargine Human [Lantus*] 5 unit SQ BIDP PRN 07/07/20 Memantine HCl [Namenda*] 10 mg PO BID 07/07/20 Sitagliptin Phosphate [Januvia] 50 mg PO DAILY 07/07/20 Travoprost [Travatan Z*] 1 gtt EACH EYE BEDTIME 07/07/20 glipiZIDE [Glipizide] 5 mg PO BID 07/07/20 Atorvastatin Calcium [Lipitor] 40 mg PO BEDTIME #30 tab 07/14/20 Folic Acid 1 mg PO DAILY #30 tablet 07/14/20 Magnesium Oxide [Mag 0X*] 400 mg PO DAILY #30 tab 07/14/20 Memantine HCl [Namenda*] 10 mg PO BID tablet 07/14/20 Aspirin [Aspirin EC 81 MG] 162 mg PO DAILY #60 tablet. 08/23/20 Atorvastatin Calcium [Lipitor] 80 mg PO BEDTIME #30 tab 08/23/20 Clopidogrel Bisulfate [Plavix*] 75 mg PO DAILY #30 tablet 08/23/20 Docusate [Colace Cap*] 100 mg PO DAILY #30 cap 08/23/20 Potassium Oral Tab [Klor-Con 10 mEq Tab*] 10 meq PO BID #60 tab 08/23/20 carvediloL [Coreg*] 3.125 mg PO BID 6AM 6PM #60 tab 08/23/20 - Past Medical/Surgical History Has patient received pneumonia vaccine in the past: No Diabetic: Yes -: Diabetes mellitus type 2 -: Hypertension -: BPH -: Athersclerosis -: Melanoma -: Hyperlipidemia -: Atrial fibrillation on chronic anticoagulation therapy -: mini stroke -: Prostate Surgery -: Hernia Repair -: Open Heart Sx -: Carotid Artery Stent -: 7x stents -: 2x melanoma removal on head Psychosocial/ Personal History: Patient lives at home with his and granddaughter - Social History Smoking Status: Unknown if ever smoked Alcohol use: No CD- Drugs: No Caffeine use: No Review of Systems General: Weakness Eyes: Unremarkable ENT: Unremarkable Respiratory: Unremarkable Cardiovascular: Unremarkable Gastrointestinal: Unremarkable Musculoskeletal: Unremarkable Integumentary: Unremarkable Neurological: Weakness, Numbness, As per HPI Physical Examination - Physical Exam General: Alert, In no apparent distress, Oriented x3, Cooperative HEENT: Atraumatic, Normocephalic Neck: Supple Respiratory: Clear to auscultation bilaterally Cardiovascular: Normal pulses, Regular rate/rhythm, Normal S1 S2 Gastrointestinal: Soft and benign Musculoskeletal: No swelling Integumentary: No rashes Neurological: Normal speech, Normal strength at 5/5 x4 extr, Cranial nerves 3-12 intact, Normal affect - Studies Laboratory Data (last 24 hrs) 01/06/21 11:27: PT 13.0 H, INR 1.13, APTT 28.0 01/06/21 11:27: WBC 8.70, Hgb 12.0 L, Hct 36.2 L, Plt Count 228 01/06/21 11:27: Sodium 141, Potassium 4.6, BUN 15, Creatinine 1.05, Glucose 252 H Assessment and Plan - Plan 1. TIA/CVA: He does have concerning symptoms. CTA head and neck looks good but there is an area of 40% stenosis noted. MRI of brain to be done stat for further evaluation. Aspirin and plavix continued. Lipitor 80mg PO qhs will be continued. heparin drip as been started as per stroke protocol pending neurologist evaluation. 2. Chronic A fib: we will continue anticoagulation as per protocol. 3. Diabetes type 2: SSI and carb restricted diet to be continued. 4. Hypertension: We will continue BP management as per peristroke protocol. 5. Hyperlipidemia: we will continue high intensity statin therapy. 6. BPH: we will continue outpt care. 7. Dementia: We will continue memantine. Discharge Plan: Home - Advance Directives Does patient have a Living Will: Yes Does patient have a Durable POA for Healthcare: Yes
[2021-01-06] MEDS ORDERED: NA CHLORIDE 0.9% 1,000 ML IV SCH (13:00)
[2021-01-06] MEDS ORDERED: ASPIRIN 81 MG CHEWABLE TABLET PO SCH (13:00)
--- NOTE | 2021-01-06 13:04 | ER ---
Nurse's Notes [facility] Name: Abisai Salinas Age: 80 yrs Sex: Male : 1940 Arrival Date: 01/06/2021 Time: 11:[address] Private MD: Diagnosis: Atrial fibrillation and flutter;Transient cerebral ischemic attack, unspecified-resolved;Unspecified combined systolic (congestive) and diastolic (congestive) heart failure Presentation: 01/06 11:10 Chief complaint: EMS states: called out for possible CVA family reported right-sided aa5 weakness and inability to ambulate this morning. Pt states "I was trying to use my bicycle this morning and my right foot was hurting and I was having trouble using my right leg". Right leg weakness noted at this time. Pt takes Plavis. 11:10 Coronavirus screen: At this time, the client does not indicate any symptoms associated aa5 with coronavirus-19. Ebola Screen: Patient negative for fever greater than or equal to 101.5 degrees Fahrenheit, and additional compatible Ebola Virus Disease symptoms. An acute neurological deficit is present. The patients blood glucose was checked prior to arriving to the hospital and was found to be hyperglycemic. Initial Sepsis Screen: Does the patient meet any 2 criteria? No. Patient's initial sepsis screen is negative. Does the patient have a suspected source of infection? No. Patient's initial sepsis screen is negative. Risk Assessment: Do you want to hurt yourself or someone else? Patient reports no desire to harm self or others. Onset of symptoms was January 06, 2021. Care prior to arrival: Glucose check: 243. 11:10 Acuity: BIB 2 aa5 11:10 Method Of Arrival: EMS: [facility] aa5 Triage Assessment: 11:10 The onset of the patients symptoms was January 06, 2021 at 10:00. General: Appears bp distressed, comfortable, Behavior is cooperative, appropriate for age, anxious. Pain: Complains of pain in right foot. EENT: No deficits noted. Neuro: in left hand(s) FUNCTION AND SENSATION AT BASELINE. Neuro: Level of Consciousness is obeys commands, Oriented to Appropriate for age. Cardiovascular: No deficits noted. Respiratory: No deficits noted. GI: No signs and/or symptoms were reported involving the gastrointestinal system. : No signs and/or symptoms were reported regarding the genitourinary system. Derm: No deficits noted. Musculoskeletal: Circulation, motion, and sensation intact. Range of motion: intact in all extremities. Stroke Activation: Symptom onset < 3 hours Physician: Stroke Attending; Name: ; Notified At: ; Arrived At: Physician: Chief Stroke Resident; Name: ; Notified At: ; Arrived At: Physician: Stroke Resident; Name: ; Notified At: ; Arrived At: Physician: ED Attending; Name: ; Notified At: ; Arrived At: Physician: ED Resident; Name: ; Notified At: ; Arrived At: Historical: - Allergies: 11:20 No Known Allergies; aa5 - Home Meds: 11:20 aspirin 81 mg Oral chew 1 tab once daily [Active]; atorvastatin 40 mg Oral tab 1 tab aa5 once daily [Active]; Aleve 220 mg Oral cap twice a day [Active]; carvedilol 3.125 mg oral tab 2 times per day [Active]; brimonidine-timolol ophthalmic ophthalmic [Active]; docusate sodium 100 mg oral cap as needed [Active]; folic acid 1 mg Oral tab 1 tab once daily [Active]; glipizide 5 mg Oral tab 1 tab once daily [Active]; Januvia 50 mg oral tab once daily [Active]; magnesium oxide 400 mg Oral tab 400 mg daily [Active]; metformin 1,000 mg Oral tab 1 tab 2 times per day [Active]; Miralax 17 gram/dose Oral powd once daily [Active]; memantine 10 mg oral tab 1 tab 2 times per day [Active]; Plavix 75 mg Oral tab 1 tab once daily [Active]; travoprost ophthalmic ophthalmic once daily [Active]; Vitamin C 500 mg Oral tab daily [Active]; Vitamin D Oral daily [Active]; zinc 50 mg oral tab daily [Active]; quetiapine 25 mg oral tab 1 tab twice a day [Active]; Pepcid 20 mg Oral tab once daily [Active]; potassium chloride 10 mEq oral TbTQ 2 times per day [Active]; Lantus 100 unit/mL Sub-Q soln [Active]; donepezil 5 mg oral tab once daily [Active]; - PMHx: 11:10 Atrial Fib; Dementia; Diabetes - IDDM; Hypertension; CVA; aa5 11:10 Left hand numbness-Deficit from previous CVA; aa5 11:10 Left-sided weakness from previous CVA; aa5 - Family history:: not pertinent. Screenin:10 Abuse screen: Denies threats or abuse. Denies injuries from another. Nutritional bp screening: No deficits noted. Tuberculosis screening: No symptoms or risk factors identified. Fall Risk None identified. Assessment: 11:10 General: Appears comfortable, Behavior is calm, cooperative. Pain: Denies pain. Neuro: aa5 Level of Consciousness is awake, alert, obeys commands, Oriented to person, place, situation, [employer] Operator are weak on left Moves all extremities. Weakness in right leg(s) Speech is normal, Facial symmetry appears normal, Reports numbness in left hand weakness in right leg. Cardiovascular: Heart tones S1 S2 present Rhythm is atrial fibrillation. Respiratory: Airway is patent Respiratory effort is even, unlabored, Respiratory pattern is regular, symmetrical. GI: Abdomen is round non-distended. : No signs and/or symptoms were reported regarding the genitourinary system. EENT: No signs and/or symptoms were reported regarding the EENT system. Derm: Skin is pink, warm \\T\\ dry. Musculoskeletal: Range of motion: intact in all extremities. 11:10 VAN Scoring: Arm Drift: Patients demonstrates NO arm weakness. Patient is VAN Negative. aa5 Visual Disturbance: No visual disturbance noted. Aphasia: No aphasia noted. Neglect: No neglect noted. 11:13 Reassessment: Pt to CT via stretcher . aa5 12:00 The patient has not been NPO before screening. The patient is alert, and able to follow bp commands. The patient does not exhibit slurred or garbled speech. The patient is not exhibiting difficulty speaking. The patient does not exhibit difficulty understanding words. The patient is able to swallow own secretions with no drooling or need for suction. Patient tolerated one teaspoon of water. No drooling, immediate coughing, gurgling, or clearing of the throat was noted. The patient tolerated 90mL of water. No drooling, immediate coughing, gurgling, or clearing of the throat was noted. The patient passed the bedside swallow screening. Oral medications may be given as ordered. Contact Physician for further diet orders. Provider notified of bedside swallow screening results: Toribio Blakely MD. T-PA (Activase) Screening: Contraindications: Rapidly improving condition or minor deficit: Yes. 12:02 Reassessment: RECD REPORT FROM LIBERTY BORDEN. bp 13:00 Reassessment: No changes from previously documented assessment. Patient and/or family bp updated on plan of care and expected duration. Pain level reassessed. Patient is alert, oriented x 3, equal unlabored respirations, skin warm/dry/pink. 14:00 Reassessment: No changes from previously documented assessment. Patient and/or family bp updated on plan of care and expected duration. Pain level reassessed. Patient is alert, oriented x 3, equal unlabored respirations, skin warm/dry/pink. ADMIT INITIATED. 15:00 Reassessment: ADMIT COMPLETE, BED ASSIGNED 232. bp 15:30 Reassessment: ADMIT ON HOLD. CONTACT WITH DR MAYFIELD AND DR JONES. PT TO BE D/C, [facility] Vital Signs: 11:10 BP 177 / 83; Pulse 67; Resp 20 S; Temp 98.3(O); Pulse Ox 99% on R/A; Weight 74.84 kg; bp 12:00 BP 166 / 71; Pulse 68; Resp 26; Pulse Ox 97% ; bp 13:00 BP 159 / 69; Pulse 57; Resp 26; Pulse Ox 100% ; bp 14:00 BP 153 / 107; Pulse 73; Resp 16; Pulse Ox 100% ; bp NIH Stroke Scale Scores: 11:10 NIHSS Score: 2 aa5 12:44 NIHSS Score: 0 [facility] ED Course: 11:10 Patient arrived in ED. em1 11:10 Arm band placed on Patient placed in an exam room, on a stretcher. aa5 11:10 Bed in low position. Call light in reach. Adult w/ patient. night monitor on. Pulse tw2 ox on. NIBP on. Warm blanket given. 11:18 Ct Stroke Brain Wo Cont In Process Unspecified. EDMS 11:19 Triage completed. aa5 11:24 Toribio Blakely MD is Attending Physician. kyle 11:30 Initial lab(s) drawn, by ED staff, sent to lab. Inserted saline lock: 20 gauge in right aa5 antecubital area, using aseptic technique. Blood collected. 12:01 Yakov Garcia, RN is Primary Nurse. bp 12:13 Stroke CXR 1 View In Process Unspecified. EDMS 13:01 Omitogun, Gerardo, MD is Hospitalizing Provider. kyle 14:01 Inserted saline lock: 24 gauge in right hand, using aseptic technique. bp 15:47 No provider procedures requiring assistance completed. IV discontinued, intact, bp bleeding controlled, No redness/swelling at site. Pressure dressing applied. Administered Medications: 11:45 Drug: NS 0.9% 500 ml Route: IV; Rate: bolus; Site: right antecubital; aa5 15:09 Follow up: IV Status: Completed infusion; IV Intake: 500ml bp 11:45 Drug: Pepcid (famotidine) 20 mg Route: IVP; Site: right antecubital; aa5 12:21 Follow up: Response: No adverse reaction bp 11:46 Drug: foLIC Acid 1 mg Route: IVPB; Site: right antecubital; aa5 15:10 Follow up: IV Status: Completed infusion; IV Intake: 100ml bp 12:15 Drug: NS 0.9% 1000 ml Route: IV; Rate: 125 ml/hr; Site: right antecubital; bp 15:10 Follow up: IV Status: Completed infusion; IV Intake: 100ml bp 12:45 Drug: Heparin (VT Drip) 12 units/kg/hr - (HEParin 58400 units, D5W 500 ml) bp {Co-Signature: tw2 (Dina Mitchell RN).} Route: IV; Rate: calculated rate; Site: right hand; 15:09 Follow up: IV Status: Infusion continued upon admission bp 12:45 Drug: Heparin (VT-Bolus with thrombolytic) - HEParin 60 units/kg {Co-Signature: tw2 bp (Dina Mitchell RN).} Route: IVP; Site: right hand; 15:09 Follow up: Response: No adverse reaction bp 12:45 Drug: Aspirin 81 mg Route: PO; bp 15:09 Follow up: Response: No adverse reaction bp Intake: 15:09 IV: 500ml; Total: 500ml. bp 15:10 IV: 100ml; Total: 600ml. bp 15:10 IV: 100ml; Total: 700ml. bp Outcome: 13:03 Decision to Hospitalize by Provider. kyle 15:15 Admitted to Med/surg family with patient, room 232, Report called to YAEL BORDEN bp 15:15 Condition: stable 15:15 Instructed on the need for admit. 16:56 Patient left the ED. bp NIH Stroke Scale - NIH Stroke Score Date: 01/06/2021 Time: 11:10 Total Score = 2 1a. Level of Consciousness (LOC) - 0(Alert) 1b. Level of Consciousness (LOC) (Year \\T\\ Age) - 0(Both) 1c. LOC Commands (Open \\T\\ Closes Eyes/Global Human Resources Director) - 0(Both) 2. Best Gaze (Lateral Gaze Paresis) - 0(Normal) 3. Visual Field Loss - 0(No visual loss) 4. Facial Palsy - 0(Normal) 5a. Left Arm: Motor (10-second hold) - 0(No drift) 5b. Right Arm: Motor (10-second hold) - 0(No drift) 6a. Left Leg: Motor (5-second hold - always test supine) - 0(No drift) 6b. Right Leg: Motor (5-second hold - always test supine) - 2(Drift, some effort against gravity) 7. Limb Ataxia (finger/nose \\T\\ heel/cobos - test with eyes open) - 0(Absent) 8. Sensory Loss (pinprick arms/legs/face) - 0(Normal) 9. Best Language: Aphasia (description/naming/reading) - 0(No aphasia) 10. Dysarthria (speech clarity - read or repeat words) - 0(Normal) 11. Extinction and Inattention (visual/tactile/auditory/spatial/personal) - 0(No abnormality) Initials: aa5 NIH Stroke Scale - NIH Stroke Score Date: 01/06/2021 Time: 12:44 Total Score = 0 1a. Level of Consciousness (LOC) - 0(Alert) 1b. Level of Consciousness (LOC) (Year \\T\\ Age) - 0(Both) 1c. LOC Commands (Open \\T\\ Closes Eyes/Global Human Resources Director) - 0(Both) 2. Best Gaze (Lateral Gaze Paresis) - 0(Normal) 3. Visual Field Loss - 0(No visual loss) 4. Facial Palsy - 0(Normal) 5a. Left Arm: Motor (10-second hold) - 0(No drift) 5b. Right Arm: Motor (10-second hold) - 0(No drift) 6a. Left Leg: Motor (5-second hold - always test supine) - 0(No drift) 6b. Right Leg: Motor (5-second hold - always test supine) - 0(No drift) 7. Limb Ataxia (finger/nose \\T\\ heel/cobos - test with eyes open) - 0(Absent) 8. Sensory Loss (pinprick arms/legs/face) - 0(Normal) 9. Best Language: Aphasia (description/naming/reading) - 0(No aphasia) 10. Dysarthria (speech clarity - read or repeat words) - 0(Normal) 11. Extinction and Inattention (visual/tactile/auditory/spatial/personal) - 0(No abnormality) Initials: kyle Signatures: Dispatcher [employer] EDMS Toribio Blakely MD MD cha Martinez, Janusz em1 Liberty Oseguera RN RN aa5 Dina Mitchell RN RN tw2 Yakov Garcia RN RN bp Dina Mitchell RN tw2 Corrections: (The following items were deleted from the chart) 11:21 11:10 Chief complaint: EMS states: called out for possible CVA family reported aa5 right-sided weakness and inability to ambulate this morning. Pt states "I was trying to use my bicycle this morning and my right foot was hurting and I was having trouble using my right leg". Right leg weakness noted at this time. Pt takes Plavis. EMS reports pt was A-fib on monitor and pt has no hx of A-fib. aa5 11:22 11:10 PMHx: Left hand nubmess deficit from previous CVA; aa5 aa5 11:25 11:10 Chief complaint: EMS states: called out for possible CVA family reported aa5 right-sided weakness and inability to ambulate this morning. Pt states "I was trying to use my bicycle this morning and my right foot was hurting and I was having trouble using my right leg". Right leg weakness noted at this time. Pt takes Plavis. aa5 11:59 11:10 Allergies: No Known Allergies; aa5 aa5 12:41 11:10 BP 177 / 83; Pulse 67bpm; Resp 20bpm; Spontaneous; Pulse Ox 99% RA; Temp bp 98.3F Oral; aa5
--- NOTE | 2021-01-06 13:04 | EDPHYS ---
Physician Documentation [facility] Name: Abisai Salinas Age: 80 yrs Sex: Male : 1940 Arrival Date: 01/06/2021 Time: 11:[address] Private MD: ED Physician Toribio Blakely HPI: 01/06 12:44 This 80 yrs old Male presents to ER via EMS with complaints of S/S of kyle Possible Stroke. 12:44 The patient's problem is reported as paresthesias, in right upper extremity, in right kyle lower extremity, syncope, near syncope, weakness, in the right upper extremity, in the right lower extremity. Onset: The symptoms/episode began/occurred just prior to arrival. Duration: This was a single incident. 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 The symptoms are alleviated by nothing. The symptoms are aggravated by nothing. Associated signs and symptoms: Pertinent positives: dizziness, lightheadedness, weakness. Severity of symptoms: At their worst the symptoms were moderate in the emergency department the symptoms have improved markedly, back to baseline , non focal. Patient's baseline: Neuro: alert and fully oriented, Motor: no deficits, Ambulation: walks without assistance, Speech: normal, The patient has a previous history of CVA, TIA. The patient has experienced similar episodes in the past, several times. Historical: - Allergies: 11:20 No Known Allergies; aa5 - Home Meds: 11:20 aspirin 81 mg Oral chew 1 tab once daily [Active]; atorvastatin 40 mg Oral tab 1 tab aa5 once daily [Active]; Aleve 220 mg Oral cap twice a day [Active]; carvedilol 3.125 mg oral tab 2 times per day [Active]; brimonidine-timolol ophthalmic ophthalmic [Active]; docusate sodium 100 mg oral cap as needed [Active]; folic acid 1 mg Oral tab 1 tab once daily [Active]; glipizide 5 mg Oral tab 1 tab once daily [Active]; Januvia 50 mg oral tab once daily [Active]; magnesium oxide 400 mg Oral tab 400 mg daily [Active]; metformin 1,000 mg Oral tab 1 tab 2 times per day [Active]; Miralax 17 gram/dose Oral powd once daily [Active]; memantine 10 mg oral tab 1 tab 2 times per day [Active]; Plavix 75 mg Oral tab 1 tab once daily [Active]; travoprost ophthalmic ophthalmic once daily [Active]; Vitamin C 500 mg Oral tab daily [Active]; Vitamin D Oral daily [Active]; zinc 50 mg oral tab daily [Active]; quetiapine 25 mg oral tab 1 tab twice a day [Active]; Pepcid 20 mg Oral tab once daily [Active]; potassium chloride 10 mEq oral TbTQ 2 times per day [Active]; Lantus 100 unit/mL Sub-Q soln [Active]; donepezil 5 mg oral tab once daily [Active]; - PMHx: 11:10 Atrial Fib; Dementia; Diabetes - IDDM; Hypertension; CVA; aa5 11:10 Left hand numbness-Deficit from previous CVA; aa5 11:10 Left-sided weakness from previous CVA; aa5 - Family history:: not pertinent. ROS: 12:44 Constitutional: Negative for fever, chills, and weight loss, Eyes: Negative for injury, kyle pain, redness, and discharge, ENT: Negative for injury, pain, and discharge, Neck: Negative for injury, pain, and swelling, Cardiovascular: Negative for chest pain, palpitations, and edema, Respiratory: Negative for shortness of breath, cough, wheezing, and pleuritic chest pain, Abdomen/GI: Negative for abdominal pain, nausea, vomiting, diarrhea, and constipation, Back: Negative for injury and pain, : Negative for injury, bleeding, discharge, and swelling, MS/Extremity: Negative for injury and deformity, Skin: Negative for injury, rash, and discoloration, Psych: Negative for depression, anxiety, suicide ideation, homicidal ideation, and hallucinations, Allergy/Immunology: Negative for hives, rash, and allergies, Endocrine: Negative for neck swelling, polydipsia, polyuria, polyphagia, and marked weight changes, Hematologic/Lymphatic: Negative for swollen nodes, abnormal bleeding, and unusual bruising. 12:44 Neuro: Positive for near syncope, pain in right foot while riding bike, near syncope afterwards, now at baseline, on asa and plavix, eliquis was stopped recently. Exam: 12:44 Radiologist reports: old changes dr marium wright 12:44 Constitutional: This is a well developed, well nourished patient who is awake, alert, and in no acute distress. Head/Face: Normocephalic, atraumatic. Eyes: Pupils equal round and reactive to light, extra-ocular motions intact. Lids and lashes normal. Conjunctiva and sclera are non-icteric and not injected. Cornea within normal limits. Periorbital areas with no swelling, redness, or edema. ENT: Nares patent. No nasal discharge, no septal abnormalities noted. Tympanic membranes are normal and external auditory canals are clear. Oropharynx with no redness, swelling, or masses, exudates, or evidence of obstruction, uvula midline. Mucous membranes moist. Neck: Trachea midline, no thyromegaly or masses palpated, and no cervical lymphadenopathy. Supple, full range of motion without nuchal rigidity, or vertebral point tenderness. No Meningismus. Chest/axilla: Normal chest wall appearance and motion. Nontender with no deformity. No lesions are appreciated. Cardiovascular: Regular rate and rhythm with a normal S1 and S2. No gallops, murmurs, or rubs. Normal PMI, no JVD. No pulse deficits. Respiratory: Lungs have equal breath sounds bilaterally, clear to auscultation and percussion. No rales, rhonchi or wheezes noted. No increased work of breathing, no retractions or nasal flaring. Abdomen/GI: Soft, non-tender, with normal bowel sounds. No distension or tympany. No guarding or rebound. No evidence of tenderness throughout. Back: No spinal tenderness. No costovertebral tenderness. Full range of motion. Skin: Warm, dry with normal turgor. Normal color with no rashes, no lesions, and no evidence of cellulitis. MS/ Extremity: Pulses equal, no cyanosis. Neurovascular intact. Full, normal range of motion. Neuro: Awake and alert, GCS 15, oriented to person, place, time, and situation. Cranial nerves II-XII grossly intact. Motor strength 5/5 in all extremities. Sensory grossly intact. Cerebellar exam normal. Normal gait. Psych: Awake, alert, with orientation to person, place and time. Behavior, mood, and affect are within normal limits. 12:44 Musculoskeletal/extremity: ROM: no acute changes, intact in all extremities, full active range of motion, full passive range of motion, Circulation is intact in all extremities. Pulses: Sensation intact. Compartment Syndrome exam of affected extremity: is normal. Joints: All joints appear normal with full range of motion. Weight bearing: DVT Exam: No signs of deep vein thrombosis. no pain, no swelling, no tenderness, negative Homans' sign noted on exam, no appreciated bluish discoloration, no erythema, no increased warmth. 12:44 Neuro: Orientation: is normal, appropriate for stated age, no acute changes, Mentation: is normal, appropriate for stated age, no acute changes, Memory: is normal, appropriate for stated age, no acute changes, Cranial nerves: grossly normal, is grossly normal based on the patient's age, no acute changes, Cerebellar function: is grossly normal, is grossly normal based on the patient's age, no acute changes, Motor: is normal, is grossly normal based on the patient's age, no acute changes, moves all fours, Sensation: is normal, no obvious gross deficits, appropriate no acute changes, Gait: not tested. Deep tendon reflexes are 1 (trace) + in the bilateral brachioradialis, bicep, tricep and patellar and Achilles tendons, Babinski testing is normal, seizure activity, is not displayed by the patient. Vital Signs: 11:10 BP 177 / 83; Pulse 67; Resp 20 S; Temp 98.3(O); Pulse Ox 99% on R/A; Weight 74.84 kg; bp 12:00 BP 166 / 71; Pulse 68; Resp 26; Pulse Ox 97% ; bp 13:00 BP 159 / 69; Pulse 57; Resp 26; Pulse Ox 100% ; bp 14:00 BP 153 / 107; Pulse 73; Resp 16; Pulse Ox 100% ; bp NIH Stroke Scale Scores: 11:10 NIHSS Score: 2 aa5 12:44 NIHSS Score: 0 kyle MDM: 11:26 Patient medically screened. kyle 12:58 Differential diagnosis: CVA, TIA, Dementia, metabolic disorder. Data reviewed: vital kyle signs, nurses notes, lab test result(s), EKG, radiologic studies, CT scan, plain films. Data interpreted: case monitor: Pulse oximetry: on room air is 97 %. Test interpretation: by ED physician or midlevel provider: ECG, plain radiologic studies. Counseling: I had a detailed discussion with the patient and/or guardian regarding: the historical points, exam findings, and any diagnostic results supporting the discharge/admit diagnosis, lab results, radiology results, the need for further work-up and treatment in the hospital. Physician consultation: Gerardo Bravo MD and will see patient in ED, please admit, will consult dr garcia and dr hinojosa. 13:00 ED course: not a tpa candidate , symptoms fully resoled, heparin , asa and plavix. [facility] consult dr garcia and dr hinojosa. 01/06 11:19 Order name: Basic Metabolic Panel [facility] 01/06 11:19 Order name: CBC with Diff; Complete Time: 12:14 [facility] 01/06 11:19 Order name: Protime (+inr); Complete Time: 12:14 [facility] 01/06 11:19 Order name: Ptt, Activated; Complete Time: 12:14 [facility] 01/06 11:20 Order name: Basic Metabolic Panel; Complete Time: 12:14 [facility] 01/06 11:25 Order name: COVID-19 : Document "Date of Symptom Onset" if Symptomatic. [facility] 01/06 11:16 Order name: Ct Stroke Brain Wo Cont; Complete Time: 12:14 [facility] 01/06 11:28 Order name: Urine Culture [facility] 01/06 12:01 Order name: Glucose, Ancillary Testing; Complete Time: 12:14 [facility] 01/06 12:10 Order name: Urine Dipstick-Ancillary [facility] 01/06 12:14 Order name: TSH; Complete Time: 15:12 [facility] 01/06 12:42 Order name: Lipid Profile [facility] 01/06 12:42 Order name: Lipid Profile [facility] 01/06 14:53 Order name: SARS-COV-2 RT PCR; Complete Time: 15:12 [facility] 01/06 11:19 Order name: Stroke CXR 1 View; Complete Time: 12:41 [facility] 01/06 11:19 Order name: EKG; Complete Time: 11:21 [facility] 01/06 11:19 Order name: Accucheck; Complete Time: 11:34 [facility] 01/06 12:42 Order name: Heart Healthy [facility] 01/06 12:43 Order name: CT Head Angio [facility] 01/06 12:48 Order name: Neck Angio; Complete Time: 15:12 [facility] 01/06 13:18 Order name: CT; Complete Time: 15:12 [facility] 01/06 15:32 Order name: MRI EDMS 01/06 11:19 Order name: Cardiac monitoring; Complete Time: 01/06 11:19 Order name: EKG - Nurse/Tech; Complete Time: 01/06 11:19 Order name: IV Saline Lock; Complete Time: 01/06 11:19 Order name: Labs collected and sent; Complete Time: 01/06 11:19 Order name: NPO; Complete Time: 01/06 11:19 Order name: O2 Per Protocol; Complete Time: 01/06 11:19 Order name: O2 Sat Monitoring; Complete Time: 01/06 11:19 Order name: Stroke Swallow Screen; Complete Time: 12:01/06 11:28 Order name: Urine Dipstick-Ancillary (obtain specimen); Complete Time: 12:09 kyle Administered Medications: 11:45 Drug: NS 0.9% 500 ml Route: IV; Rate: bolus; Site: right antecubital; aa5 15:09 Follow up: IV Status: Completed infusion; IV Intake: 500ml bp 11:45 Drug: Pepcid (famotidine) 20 mg Route: IVP; Site: right antecubital; aa5 12:21 Follow up: Response: No adverse reaction bp 11:46 Drug: foLIC Acid 1 mg Route: IVPB; Site: right antecubital; aa5 15:10 Follow up: IV Status: Completed infusion; IV Intake: 100ml bp 12:15 Drug: NS 0.9% 1000 ml Route: IV; Rate: 125 ml/hr; Site: right antecubital; bp 15:10 Follow up: IV Status: Completed infusion; IV Intake: 100ml bp 12:45 Drug: Heparin (OR Drip) 12 units/kg/hr - (HEParin 56060 units, D5W 500 ml) bp {Co-Signature: tw2 (Dina Mitchell RN).} Route: IV; Rate: calculated rate; Site: right hand; 15:09 Follow up: IV Status: Infusion continued upon admission bp 12:45 Drug: Heparin (OR-Bolus with thrombolytic) - HEParin 60 units/kg {Co-Signature: tw2 bp (Dina Mitchell RN).} Route: IVP; Site: right hand; 15:09 Follow up: Response: No adverse reaction bp 12:45 Drug: Aspirin 81 mg Route: PO; bp 15:09 Follow up: Response: No adverse reaction bp Disposition: 01/06/21 13:03 Hospitalization ordered by Gerardo Bravo for Observation. Preliminary diagnosis are Atrial fibrillation and flutter, Transient cerebral ischemic attack, unspecified - resolved, Unspecified combined systolic (congestive) and diastolic (congestive) heart failure. - Bed requested for Telemetry/MedSurg (observation). - Status is Observation. bp - Condition is Fair. - Problem is new. - Symptoms have improved. NIH Stroke Scale - NIH Stroke Score Date: 01/06/2021 Time: 11:10 Total Score = 2 1a. Level of Consciousness (LOC) - 0(Alert) 1b. Level of Consciousness (LOC) (Year \\T\\ Age) - 0(Both) 1c. LOC Commands (Open \\T\\ Closes Eyes/Environmental Lead) - 0(Both) 2. Best Gaze (Lateral Gaze Paresis) - 0(Normal) 3. Visual Field Loss - 0(No visual loss) 4. Facial Palsy - 0(Normal) 5a. Left Arm: Motor (10-second hold) - 0(No drift) 5b. Right Arm: Motor (10-second hold) - 0(No drift) 6a. Left Leg: Motor (5-second hold - always test supine) - 0(No drift) 6b. Right Leg: Motor (5-second hold - always test supine) - 2(Drift, some effort against gravity) 7. Limb Ataxia (finger/nose \\T\\ heel/cobos - test with eyes open) - 0(Absent) 8. Sensory Loss (pinprick arms/legs/face) - 0(Normal) 9. Best Language: Aphasia (description/naming/reading) - 0(No aphasia) 10. Dysarthria (speech clarity - read or repeat words) - 0(Normal) 11. Extinction and Inattention (visual/tactile/auditory/spatial/personal) - 0(No abnormality) Initials: aa5 NIH Stroke Scale - NIH Stroke Score Date: 01/06/2021 Time: 12:44 Total Score = 0 1a. Level of Consciousness (LOC) - 0(Alert) 1b. Level of Consciousness (LOC) (Year \\T\\ Age) - 0(Both) 1c. LOC Commands (Open \\T\\ Closes Eyes/Environmental Lead) - 0(Both) 2. Best Gaze (Lateral Gaze Paresis) - 0(Normal) 3. Visual Field Loss - 0(No visual loss) 4. Facial Palsy - 0(Normal) 5a. Left Arm: Motor (10-second hold) - 0(No drift) 5b. Right Arm: Motor (10-second hold) - 0(No drift) 6a. Left Leg: Motor (5-second hold - always test supine) - 0(No drift) 6b. Right Leg: Motor (5-second hold - always test supine) - 0(No drift) 7. Limb Ataxia (finger/nose \\T\\ heel/cobos - test with eyes open) - 0(Absent) 8. Sensory Loss (pinprick arms/legs/face) - 0(Normal) 9. Best Language: Aphasia (description/naming/reading) - 0(No aphasia) 10. Dysarthria (speech clarity - read or repeat words) - 0(Normal) 11. Extinction and Inattention (visual/tactile/auditory/spatial/personal) - 0(No abnormality) Initials: [facility] Signatures: Dispatcher [employer] EDMS Toribio Blakely MD MD cha Calderon, Audri, RN RN aa5 Yakov Garcia, RN RN Elza Luque RN tw2 Corrections: (The following items were deleted from the chart) 11:22 11:10 PMHx: Left hand nubmess deficit from previous CVA; aa5 aa5 11:33 11:21 CT-STROKE BRAIN W/O CONTRAST+CT.RAD.BRZ ordered. EDIN EDMS 11:59 11:10 Allergies: No Known Allergies; aa5 aa5 14:56 13:03 Hospitalization Ordered by Gerardo Bravo MD for Observation. Preliminary eb diagnosis is Atrial fibrillation and flutter; Transient cerebral ischemic attack, unspecified - resolved; Unspecified combined systolic (congestive) and diastolic (congestive) heart failure. Bed requested for Telemetry/MedSurg (observation). Status is Observation. Condition is Fair. Problem is new. Symptoms have improved. [facility] 16:56 14:56 01/06/2021 13:03 Hospitalization Ordered by Gerardo Bravo MD for bp Observation. Preliminary diagnosis is Atrial fibrillation and flutter; Transient cerebral ischemic attack, unspecified - resolved; Unspecified combined systolic (congestive) and diastolic (congestive) heart failure. Bed requested for Telemetry/MedSurg (observation). Status is Observation. Condition is Fair. Problem is new. Symptoms have improved. eb
[2021-01-06] MEDS ORDERED: HEPARIN 5000 UNIT/ML 1 ML VIAL ONE (13:07)
[2021-01-06] MEDS ORDERED: HEPARIN/D5W 25,000 UNIT/500 ML BAG IV ONE (13:07)
--- NOTE | 2021-01-06 13:13 | RAD REPORT ---
EXAM DESCRIPTION: Travis Angio01/06/2021 12:57 pm CLINICAL HISTORY: cva COMPARISON: None TECHNIQUE: 50 cc Isovue 370 was administered intravenously. 3D MIP reconstruction performed All CT scans are performed using dose optimization technique as appropriate and may include automated exposure control or mA/KV adjustment according to patient size. FINDINGS: Calcified plaque is present within the distal left vertebral artery resulting in an appro ximately 40% stenosis. The left vertebral artery is more dominant than the right. The right vertebral artery is unremarkable. Calcified plaque within the distal internal carotids arteries bilaterally resulting in approximately 35% stenosis. Minimal plaque common carotid arteries bilaterally. Minimal plaque external carotid arteries bilaterally IMPRESSION: Mild plaque within the vertebral carotid arteries NASCET criteria used. Mild 0-49% stenosis Moderate 50-69% stenosis Severe 70-99% stenosis
--- NOTE | 2021-01-06 13:18 | RAD REPORT ---
EXAM DESCRIPTION: CTHead angio01/06/2021 12:57 pm CLINICAL HISTORY: TIA COMPARISON: None TECHNIQUE: CT angiogram of the head was obtained. 3D MIPS reconstruction performed. All CT scans are performed using dose optimization technique as appropriate and may include automated exposure control or mA/KV adjustment according to patient size. FINDINGS: The basilar, internal carotid, anterior cerebral, middle cerebral and posterior cerebral a rteries are normal caliber. An aneurysm is not seen. A significant stenosis is not noted. IMPRESSION: No acute abnormality is displayed
--- NOTE | 2021-01-06 15:32 | RAD REPORT ---
EXAM DESCRIPTION: MRI - Brain Wo Cont - 01/06/2021 2:50 pm CLINICAL HISTORY: TIA COMPARISON: 2019 MRI TECHNIQUE: Axial, sagittal, and coronal magnetic images of the brain were obtained. Contrast was not requested FINDINGS: Moderate signal within periventricular, deep and subcortical white matter likely ischemic changes secondary to small vessel disease. Old right cerebral infarction. Diffusion-weighted/ADC mapping does not reveal evidence of acute infarction. The ventricles are normal caliber. An extra-axial fluid collection is not present Signal within the mastoids IMPRESSION: No acute intracranial abnormality is displayed Signal within the mastoids may indicate mastoiditis
--- NOTE | 2021-01-06 16:11 | P.SSS ---
Patient History Date of Service: 01/06/21 Reason for admission: TIA. History of Present Illness: 80 y o male pt with hx of DM type 2, HTN, HLD, Chronic A fib, Dementia who was brought tho the ED for work up of suspected stroke. He had c/o pain and weakness in the left leg and he was suspected to have issues with intracranial pathology because of is prior issue with CVA late last yr. he had a CT head and CTA Head and neck which were negative. After a bolus of fluid in the Ed, his symptoms beckett bsided and he felt better. He was discussed with hospitalist team for observation admission and for neurology evaluation. He denied any issues with headache, blurry vision, fever, chills, neck pain, cough, dizziness, orthopnea, PND, leg swelling, change in vision. Allergies No Known Allergies Allergy (Verified 04/16/18 11:53) Home Medications: Metformin HCl 1,000 mg PO BID 05/26/20 Brimonidine Tartrate/Timolol [Combigan 0.2%-0.5% Eye Drops] 1 gtt EACH EYE BID 07/07/20 Insulin Glargine Human [Lantus*] 5 unit SQ BIDP PRN 07/07/20 Memantine HCl [Namenda*] 10 mg PO BID 07/07/20 Sitagliptin Phosphate [Januvia] 50 mg PO DAILY 07/07/20 Travoprost [Travatan Z*] 1 gtt EACH EYE BEDTIME 07/07/20 glipiZIDE [Glipizide] 5 mg PO BID 07/07/20 Folic Acid 1 mg PO DAILY #30 tablet 07/14/20 Magnesium Oxide [Mag 0X*] 400 mg PO DAILY #30 tab 07/14/20 Memantine HCl [Namenda*] 10 mg PO BID tablet 07/14/20 Aspirin [Aspirin EC 81 MG] 162 mg PO DAILY #60 tablet. 08/23/20 Atorvastatin Calcium [Lipitor] 80 mg PO BEDTIME #30 tab 08/23/20 Clopidogrel Bisulfate [Plavix*] 75 mg PO DAILY #30 tablet 08/23/20 Docusate [Colace Cap*] 100 mg PO DAILY #30 cap 08/23/20 Potassium Oral Tab [Klor-Con 10 mEq Tab*] 10 meq PO BID #60 tab 08/23/20 Atorvastatin Calcium [Lipitor] 80 mg PO BEDTIME tab 01/06/21 carvediloL [Coreg*] 6.25 mg PO BID 6AM 6PM tab 01/06/21 - Past Medical/Surgical History Has patient received pneumonia vaccine in the past: No Diabetic: Yes -: Diabetes mellitus type 2 -: Hypertension -: BPH -: Athersclerosis -: Melanoma -: Hyperlipidemia -: Atrial fibrillation on chronic anticoagulation therapy -: mini stroke -: Prostate Surgery -: Hernia Repair -: Open Heart Sx -: Carotid Artery Stent -: 7x stents -: 2x melanoma removal on head Psychosocial/ Personal History: Patient lives at home with his and granddaughter - Social History Smoking Status: Unknown if ever smoked Alcohol use: No CD- Drugs: No Caffeine use: No Physical Examination - Studies Laboratory Data (last 24 hrs) 01/06/21 11:27: PT 13.0 H, INR 1.13, APTT 28.0 01/06/21 11:27: WBC 8.70, Hgb 12.0 L, Hct 36.2 L, Plt Count 228 01/06/21 11:27: Sodium 141, Potassium 4.6, BUN 15, Creatinine 1.05, Glucose 252 H Treatment Summary: He recieved IV heparin and was evaluated y neurology. MRI of the head was ordered and this came out negative after he initially had CTA head and neck. he was deemed ok for discharge as per neurology to be reviewed in the office n ext week. His antiplatelet meds of aspirin and plavix were continued with lipitor. - Disposition Disposition: ROUTINE DISCHARGE Condition: GOOD Diet: AHA Activity: Ad marta
[2021-01-06] MEDS ORDERED: INSULIN -REGULAR HUMAN 50 UNIT/0.5 ML ML SQ SCH (16:30)
[2021-01-06] MEDS ORDERED: glipiZIDE 5 MG TAB PO SCH (16:30)
[2021-01-06 17:13] VITALS: TEMP 98.3
[2021-01-06 17:16] VITALS: O2SAT 100
[2021-01-06 17:17] VITALS: BP 153/107
[2021-01-06] MEDS ORDERED: carvediloL 3.125 MG TAB PO SCH (18:00)
[2021-01-06] MEDS ORDERED: carvediloL 6.25 MG TAB PO SCH (18:00)
--- NOTE | 2021-01-06 20:50 | CON ---
Reason For Consultation: Consultation called because of possible stroke. History Of Present Illness: Mr. Salinas is an 80-year-old right-handed patient with history of atrial fibrillation, flutter, and prior stroke, which did cause left arm and leg weakness which a ctually had resolve well and was doing physical therapy. The patient's was in the room. She sa id earlier in the day as he was doing physical therapy, his right leg began to cramp and could not mo ve well and appeared to be weak and did have tingling and numbness. That then moved proximally to in volve the upper right leg and trunk and arm, and within several minutes, that stabilized but later on within a few hours, the symptoms actually had began to resolve. By the time of my evaluation, the p atient just before he did get to an MRI. He thought he was back to his normal self with strength and sensation in the right upper and lower extremity. His MRI of the brain revealed no acute ischemic o r hemorrhagic stroke, and a CT scan otherwise did not show any acute ischemic or hemorrhagic stroke. The MRI did show a chronic stroke in the right cerebral hemisphere, plus there was moderate small-ve ssel ischemic disease in the white matter. His CT angiogram of the neck showed mild plaque in the ve rtebral and carotid arteries with the carotids being estimated at 75% bilaterally and the left verteb ral estimated at 40% stenosis. Right vertebral was unremarkable. His head CT angiogram showed no in tra-arterial issues. No aneurysms or any significant occlusion. His blood work showed essentially u nremarkable complete blood count with differential. Coagulation panel showed INR of 1.13. His gluco se was elevated at 252. Electrolytes otherwise normal. Creatinine normal. TSH normal. Calcium nor mal. Urinalysis showed 1+ glucose. COVID-19 test was negative. Chest x-ray showed no acute cardiop ulmonary processes except for mild CHF pattern and there is a prior CABG noted. Past Medical History: Diabetes mellitus type 2, hypertension, prostatic hypertrophy, dise ase, history of melanoma, dyslipidemia, atrial fibrillation. Allergies: NO KNOWN DRUG ALLERGIES. Medications: Metformin, Combigan, Lantus 5 units twice daily, Namenda 10 mg twice daily, Januvia 50 mg daily, Travatan 1 drop in each eye at bedtime, glipizide 5 mg daily, Lipitor 40 mg at bedtime, fol ate 1 mg daily, magnesium oxide 400 mg daily, aspirin 162 mg daily, Lipitor 80 mg at bedtime, Plavix 75 mg daily, mg daily, potassium 10 mEq twice daily, Coreg 3.125 mg daily. Past Surgical History: Prostate surgery, hernia repair, coronary artery bypass grafting, carotid art eder stent, total of 7 stents placed, and 2 melanoma areas removed from the head. Social History: No alcohol, tobacco, or IV drug use. Family History: Noncontributory. Review of Systems: He has had diffuse weakness and some right-sided numbness and tingling. Mild myalgias, arthralgias, otherwise no rash, psychiatric complaints, no active gastrointestinal issues. Mild difficulty with i nitiating urine. Otherwise, negative. Physical Examination: Vital Signs: Blood pressure 129 to 146/58 to 67, pulse 68 to 78, respiratory rate 16 to 20, temperat ure 97.8, oxygen saturation 97% on room air. General: Mr. Salinas is resting in bed. He is in no acute distress. He is normocephalic, atraumatic . Sclerae anicteric. Oropharynx is moist and pink. Neck: Supple. Chest: Shows mildly decreased breath sounds. Extremities: Show no clubbing, cyanosis, or edema. Neurological: He is alert and oriented to situation, place, and person. He follows all commands bisi ropriately. Cranial nerves show no obvious deficits on 2 through 12. Motor examination; upper and l ower extremities show no focal weakness except mild difficulty with renewals specialist strength in the hands bilate rally, that is around 4/5 and symmetric. Strength of lower extremities symmetric and at least 4+/5. Coordination is intact in upper and lower extremities. Reflexes are increased at the pat suzanna and normal in the upper extremities, 0 at the heels. Gait, he will be ambulated with a gait bel t with therapist. The patient actually is able to stand and maintain his own balance. Assessment: Mr. Salinas is an 80-year-old patient with chronic stroke. No evidence of an acute strok e. His CT angiograms of the head and neck showed no significant disease. He has moderate small-vess el ischemic disease. He has multiple comorbid conditions and stroke risk factors and therefore shoprerna d be maintained on antiplatelet and anticholesterol medications along with his statin, folic acid, me dication for diabetes and hypertension. Plan: The patient will be discharged home. Continue medications as indicated. He should resume his outpatient physical therapy. He should call Dr. Muniz' office on Saturday for an appointment in clin ic. This was discussed with the hospital emergency room physician. [place] Voice ID: [id number] Report ID: [id number]
[2021-01-06] MEDS ORDERED: TIMOLOL EYE OPTH SCH (21:00)
[2021-01-06] MEDS ORDERED: ATORVASTATIN 80 MG TAB PO SCH (21:00)
[2021-01-06] MEDS ORDERED: TRAVOPROST 0.004% 2.5ML OPTH EACH EYE SCH (21:00)
[2021-01-06] MEDS ORDERED: ATORVASTATIN 40 MG TAB PO SCH (21:00)
[2021-01-06] MEDS ORDERED: MEMANTINE HCL 10 MG TABLET PO SCH (21:00)
[2021-01-06] MEDS ORDERED: BRIMONIDINE OPTH SCH (21:00)
--- NOTE | 2021-01-07 07:24 | EKG ---
Test Date: 2021-01-06 Test Time: 11:46:09 Balance Weigher: ANAI MEASUREMENT RESULTS: Intervals: Rate: 56 NC: QRSD: 104 QT: 470 QTc: 453 [place]: P: NC: QRS: 48 T: -61 INTERPRETIVE STATEMENTS: Atrial fibrillation with slow ventricular response ST & T wave abnormality, consider inferior ischemia or digitalis effect Abnormal ECG Compared to ECG 08/11/2020 20:55:51 ST (T wave) deviation now present Possible ischemia now present Sinus bradycardia no longer present Left ventricular hypertrophy no longer present Electronically Signed On 01-07-21 07:22:04 CDT by Vernon Oleary
[2021-01-07] MEDS ORDERED: FOLIC ACID 1 MG TABLET PO SCH (09:00)
[2021-01-07] MEDS ORDERED: ENOXAPARIN 40 MG/0.4 ML SQ SCH (09:00)
[2021-01-07] MEDS ORDERED: CLOPIDOGREL 75 MG TABLET PO SCH (09:00)
[2021-01-07] MEDS ORDERED: SITAGLIPTIN PHOS 100 MG TAB PO SCH (09:00)
[2021-01-07] MEDS ORDERED: MAGNESIUM OXIDE 400 MG TAB PO SCH (09:00)
[2021-01-07] MEDS ORDERED: DOCUSATE NA 100 MG CAP PO SCH (09:00)
== END 2021-01-06 17:00 | disposition home or self-care (01) ==
LOC: ER 11:04 → ERHOLD 12:39
PROVIDERS: ADMIT Internal Medicine Nephrology; ATTEND Internal Medicine Nephrology
DX: G45.9 Transient cerebral ischemic attack, unspecified (principal); I48.20 Chronic atrial fibrillation, unspecified; I48.92 Unspecified atrial flutter; E11.9 Type 2 diabetes mellitus without complications; I11.0 Hypertensive heart disease with heart failure; I50.40 Unspecified combined systolic (congestive) and diastolic (congestive) heart failure; E78.5 Hyperlipidemia, unspecified; I65.23 Occlusion and stenosis of bilateral carotid arteries; N40.0 Benign prostatic hyperplasia without lower urinary tract symptoms; F03.90 Unspecified dementia, unspecified severity, without behavioral disturbance, psychotic disturbance, mood disturbance, and anxiety; R29.702 NIHSS score 2; Z86.73 Personal history of transient ischemic attack (TIA), and cerebral infarction without residual deficits; Z79.01 Long term (current) use of anticoagulants; Z79.02 Long term (current) use of antithrombotics/antiplatelets; Z79.82 Long term (current) use of aspirin; Z79.4 Long term (current) use of insulin; Z95.1 Presence of aortocoronary bypass graft; Z85.820 Personal history of malignant melanoma of skin; Z20.822 Contact with and (suspected) exposure to COVID-19
CPT/HCPCS: 93005; 85025; 80048; 36415; 85610; 82947; 85730; 84443; 81003; 70496; 70498; 70450; 71045; 70551; 99285; U0003; Q9967; J1644 ×2; J7030; G0378 ×2

== ENCOUNTER 2021-03-07 10:14 | Inpatient (IN) | payer MEDICARE ==
--- OUTSIDE RECORDS SUMMARY | 2021-03-07 10:18 | XMS REPORT | Continuity of Care Document ---
:1940 Author Organization [facility] t Address [address] [place] [address] Care Team Providers Name Role Phone Pcp Primary Care Physician Unavailable Aden Barbosa Attending Clinician Carolina Menezes Attending Clinician Lakesha Engel Attending Clinician TORO [...] 08:38: Edmund LUMBAR 00 PAIN Active 10/22/2018 [facility] Erosion of Erosion of Disease [...] Edmund UTI, 00 KIDNEY INJURY Active 12/31/2017 [facility] INJURY OF Diagnosis Active 2018-01-07 Memoria URETER 4-24 22:03:00 l INJURY 00:00: Edmund OF URETER 00 Active 12/31/2017 [facility] [id number], Diagnosis Active 2018-04-17 Memoria 30713 3-27 16:05:00 l BILATERAL 00:00: [place] UMBILICAL [id number], 00 OUMAR 51890 BILATERAL UMBILICAL OUMAR Active 12/03/2017 [facility] Chest pain Problem Active 2020-11-02 M emoria (finding) 2- 22:19:21 l Chest 00:00: [place] pain 00 (finding) Active 10/30/2012 Problem 11/02/2020 Data migrated from [employer] on 02/05/15. Medical Group,[facility] [place] History of History of Problem Resolve Univers [...] d injury of ureter, initial encounter 01/05/2018 [facility] Carotid Problem Active 2020-11-02 Ryan melodie atheroscle 22:19:21 l rosis Carotid [place] (disorder) atheroscle rosis (disorder) Active Problem 11/02/2020 Medical Group,General acute hospital Coronary Problem Active 2020-11-02 Mem oria arterioscl 22:19:21 l erosis Coronary Brennen n (disorder) arterioscl erosis (disorder) Active Problem 11/02/2020 Data migrated from [facility] on 02/05/15. Medical Group,General acute hospital Diabetes Problem Active 2020-11-02 Mem oria mellitus 22:19:21 l (disorder) Diabetes He rmann mellitus (disorder) Active Problem 11/02/2020 Medical Group,General acute hospital Femoral Problem Active 2020-11-02 Ryan melodie hernia 22:19:21 l (disorder) Femoral Her dickson hernia (disorder) Active Problem 11/02/2020 Medical Group,[facility] Gastroesop Problem Active 2020-11-02 M emoria hageal 22:19:21 l reflux Edmund disease Gastroesop with hageal esophagiti reflux s disease (disorder) with esophagiti s (disorder) Active Problem 11/02/2020 Medical Group,[facility] [place] Glaucoma Problem Active 2020-11-02 Mem oria (disorder) 22:19:21 l Glaucoma Brennen n (disorder) Active Problem 11/02/2020 Medical Group,[facility] Hyperlipid Problem Active 2020-11-02 M emoria emia 22:19:21 l (disorder) Brennen n Hyperlipid emia (disorder) Active Problem 11/02/2020 Medical Group,[facility] Hypertensi Problem Active 2020-11-02 emoria ve 22:19:21 l disorder, [place] systemic Hypertensi arterial ve (disorder) disorder, systemic arterial (disorder) Active Problem 11/02/2020 [facility] on 02/05/15. 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 Physici shoulder shoulder ans Nonspecifi Problem Active 2020-11-[address]-T 22:19:21 l abnormalit Brennen n y on Nonspecifi electrocar c ST-T diogram abnormalit (finding) y on electrocar diogram (finding) Active Problem 11/02/2020 Medical Group,[facility] Persistent Problem Active 2020-11-02 M emoria atrial 22:19:21 l fibrillati Brennen n on Persistent (disorder) atrial fibrillati on (disorder) Active Problem 11/02/2020 Medical Group,[facility] Tricuspid Problem Active 2020-11-02 Me moria valve 22:19:21 l regurgitat Brennen n ion Tricuspid (disorder) valve regurgitat ion (disorder) Active Problem 11/02/2020 Medical Group,[facility] Umbilical Problem Active 2020-11-02 Me moria hernia 22:19:21 l (disorder) Brennen n Umbilical hernia (disorder) Active Problem 11/02/2020 Medical Group,[facility] ALTERED Diagnosis Active 2017-12-31 Me moria MENTAL 22:28:00 l STATUS, ALTERED Brennen n UNSPECIFIE MENTAL D STATUS, UNSPECIFIE D Active [facility] UNSPECIFIE Diagnosis Active 2018-01-07 Memoria D INJURY 22:03:00 l OF URETER, Brennen watt INITIAL EN UNSPECIFIE D INJURY OF URETER, INITIAL EN Active [facility] AMS/ UTI/ Diagnosis Active 2018-01-01 Memoria DIRECT 19:23:00 l ADMIT AMS/ Edmund UTI/ DIRECT ADMIT Active [facility] DJD DJD Problem Active Univers (degenerat (degenerat [...] Date Quantity Comments Source Sex Assigned At [facility] Tobacco use and 2018-05-14 2018-05-14 Never used [facility] - exposure 00:00:00 00:00:00 [facility] Alcohol intake 2018-05-14 2018-05-14 Current [facility] St Álvarez es - 00:00:00 00:00:00 non-drinker of Medical Ce nter alcohol (finding) Tobacco Comment 2018-04-30 2018-04-30 quit 30 yrs ago [facility] - 00:00:00 00:00:00 [facility] Social History 2017-12-18 2017-12-18 [facility] maryann 16:53:06 16:53:06 Smoking Status Start Date Stop Date Source Never smoker [facility] Former smoker 2018-05-14 00:00:00 2018-05-14 00:00:00 [facility] Medications Ordered Filled Start Stop Current [...] Memoria 2-24 TID-Before l 17:14: Meals, 0 [place] 00 Refill(s) lisinopril 2018- Yes 40 mg = 1 Me moria 40 mg oral 8-26 tab, PO, l tablet 15:26: Daily, 0 [place] 00 Refill(s) apixaban 5 Yes 5 mg = 1 Mem oria MG Oral 3-29 tab, PO, l Tablet 19:59: BID, # 180 Larissa nn [Eliquis] 56 tab, 3 Refill(s), Pharmacy: [facility] [id number] lisinopril 20190 Yes 5 mg = 1 Mem oria 5 mg oral 2-25 tab, PO, l tablet 16:45: BID, 0 [place] 00 Refill(s) sitagliptin 2019-0 Yes 50 mg = 1 M emoria 50 MG Oral 2-25 tab, PO, l Tablet 16:45: Daily, 0 [place] [Januvia] 00 Refill(s) lisinopril 0 Yes 20mg [...] mouth Medica l 24 hr 36 daily. [place] capsule travoprost 2017-0 Yes 1[drp] QD Place [address] (TRAVATAN 9-07 drop into [facility] - Z) 0.004 % 14:03: both eyes [...] day, # 14 tab, 0 Refill(s), Pharmacy: [facility] [id number] Eliquis No Notes: Memoria 01-02 Same as: [...] ophthalmic 01-02 (Same As: l 02:00: Timoptic, [place] Betimol) metoprolol No Notes: Memor ia tartrate 01-02 (Same as: l 02:00: Lopressor) Edmund brimonidine No Notes: Ryan melodie ophthalmic 4-26 (Same As: l 02:00: Alphagan) latanoprost No Notes: Ryan melodie ophthalmic 4-26 Keep l 02:00: refrigerat ed. (Same as:Xalatan ) Opened bottle may be stored at room temperatur e for 6 weeks Magnesium No Notes: Memori a Sulfate -25 WASTE: F/P l 23:00: - Sink; E Edmund - [facility] Trash Bin travoprost No 1 drp, Memor [...] / 4-25 (Same as: l Hydrocodone 04:07: [place] Larissa nn Bitartrate 00 325/5) Do 5 MG Oral not exceed Tablet 4gm/day of acetaminop hen. Sodium 2018-0 No 1,000 mL, Memori a Chloride 4-25 Rate: 75 l 0.9% IV 04:07: ml/hr, [place] 1,000 mL 00 Infuse over: 13.3 hr, [...] mg, Memoria 416 Route: l 19:45: IVP, [place] 00 Q5Min, Dosing Weight 84.091, kg, PRN [...] oria ne 4-16 Route: l 19:45: IVP, [place] 00 Q5Min, Dosing Weight 84.091, kg, PRN Pain Score 7-10, Start date: 12/23/17 14:45:00 CDT, Duration: 4 doses or times, Stop date: Limited # of times Hydralazine 2018-0 No 10 mg, Ryan melodie 4-16 Route: l 19:45: IVP, [place] 00 Q20Min, Dosing Weight 84.091, kg, PRN [...] 4-16 Drug form: l 19:02: INJ, ONCE, [place] 00 Stop date: 12/23/17 14:02:00 CDT acetaminoph [...] Rate: 25 l 0.9% IV 15:33: ml/hr, [place] 1000 mL 00 Infuse over: 40 hr, [...] Edmund 05 90 tab, 1 Refill(s), Pharmacy: [facility] [id number], DUE FOR AN OFFICE VISIT. PLEASE CALL DR. CRUZ' S OFFICE TO MAKE AN APT. lisinopril No 20 mg = 1 Me moria 20 mg oral 3-26 tab, PO, l tablet 18:44: Daily, # Edmund 59 90 tab, 1 Refill(s), Pharmacy: [facility] [place] [address], DUE FOR AN OFFICE VISIT. PLEASE CALL DR. COLVIN 'S OFFICE TO MAKE AN APT. Metoprolol Yes 100 mg = 1 M emoria Succinate 3-26 tab, PO, l ER 100 mg 18:44: Daily, # Herm donavon oral 22 90 tab, 1 tablet, Refill(s), extended Pharmacy: release [facility] [place] [address] atorvastati Yes 40 mg = 1 M emoria n 40 mg 3-26 tab, PO, l oral tablet 18:44: Daily, # He rmann 00 90 tab, 1 Refill(s), Pharmacy: [facility] [place] [address] dapaglifloz Yes 5 mg = 1 Me [...] nn [Eliquis] 44 tab, 1 Refill(s), Pharmacy: [facility] [place] [address] PriLOSEC 10 PriLOSEC 10 Yes U nivers MG CPDR MG CPDR [facility] [place] [facility] Atorvastati Atorvastati Yes U nivers [...] 10 MG Oral ity of Tablet Tablet [place] [facility] Vital Signs Vital Name Observation Time Observation Value Comments Source Systolic (mm Hg) 2020-02-24 14:38:00 Ryan martinez [place] Diastolic (mm Hg) 2020-02-24 14:38:00 [facility] Heart Rate 2020-02-24 14:38:00 [facility] Height 2020-02-24 14:38:00 182.88 cm [facility] Weight 2020-02-24 14:38:00 [facility] BMI Calculated 2020-02-24 14:38:00 Brian Medina Systolic (mm Hg) 2019-11-02 17:12:00 Ryan juan [place] Diastolic (mm Hg) 2019-11-02 17:12:00 Mem orial [place] Heart Rate 2019-11-02 17:12:00 [facility] Height 2019-11-02 17:12:00 180.34 cm [facility] Weight 2019-11-02 17:12:00 [facility] BMI Calculated 2019-11-02 17:12:00 Memori al [place] Systolic (mm Hg) 2019-05-04 15:24:00 Ryan rial [place] Diastolic (mm Hg) 2019-05-04 15:24:00 Mem orial [place] Heart Rate 2019-05-04 15:24:00 [facility] [place] Height 2019-05-04 15:24:00 180.34 cm [facility] [place] Weight 2019-05-04 15:24:00 [facility] [place] BMI Calculated 2019-05-04 15:24:00 Memori al [place] BMI Calculated 2018-11-03 16:43:00 Memori al [place] Weight 2018-11-03 16:43:00 [facility] [place] Height 2018-11-03 16:43:00 177.8 cm [facility] [place] Systolic (mm Hg) 2018-11-03 16:43:00 Ryan rial [place] Diastolic (mm Hg) 2018-11-03 16:43:00 Mem orial [place] Heart Rate 2018-11-03 16:43:00 [facility] [place] Height 2018-09-17 10:37:00 71 [in_us] [facility] Weight 2018-09-17 10:37:00 198 [lb_av] [facility] Body Mass Index 2018-09-17 10:37:00 27.62 kg/m2 Unive rsity of Calculated [place] [facility] Heart Rate 2018-05-05 16:44:00 [facility] [place] Systolic (mm Hg) 2018-05-05 16:44:00 Ryan rial [place] Diastolic (mm Hg) 2018-05-05 16:44:00 Mem orial [place] Weight 2018-05-05 16:44:00 [facility] BMI Calculated 2018-05-05 16:44:00 Memori al [place] Height 2018-05-05 16:44:00 177.8 cm [facility] [place] BMI Calculated 2018-02-24 15:01:00 Memori al [place] Weight 2018-02-24 15:01:00 [facility] [place] Height 2018-02-24 15:01:00 182.88 cm [facility] [place] Systolic (mm Hg) 2018-02-24 15:01:00 Ryan rial [place] Diastolic (mm Hg) 2018-02-24 15:01:00 Mem orial [place] Heart Rate 2018-02-24 15:01:00 [facility] [place] Temperature Oral (F) 2018-01-02 21:08:00 97.8 F [facility] [place] Systolic (mm Hg) 2018-01-02 21:08:00 Ryan rial [place] Diastolic (mm Hg) 2018-01-02 21:08:00 Mem orial [place] Respitory Rate 2018-01-02 21:08:00 Memori al [place] Heart Rate 2018-01-02 21:08:00 [facility] [place] Respitory Rate 2018-01-02 16:25:00 Memori al [place] Temperature Oral (F) 2018-01-02 16:25:00 98.2 F [facility] [place] Heart Rate 2018-01-02 16:25:00 [facility] [place] Systolic (mm Hg) 2018-01-02 16:25:00 Ryan rial [place] Diastolic (mm Hg) 2018-01-02 16:25:00 Mem orial [place] Heart Rate 2018-01-02 12:58:00 [facility] [place] Respitory Rate 2018-01-02 12:58:00 Memori al [place] Systolic (mm Hg) 2018-01-02 12:58:00 Ryan rial [place] Diastolic (mm Hg) 2018-01-02 12:58:00 Mem orial [place] Temperature Oral (F) 2018-01-02 12:58:00 98.3 F [facility] [place] BMI Calculated 2018-01-01 03:40:00 Memori al [place] Weight 2018-01-01 03:40:00 [facility] [place] Height 2018-01-01 03:40:00 182.88 cm [facility] [place] Systolic (mm Hg) 2017-12-23 21:45:00 Ryan rial [place] Diastolic (mm Hg) 2017-12-23 21:45:00 Mem orial [place] Respitory Rate 2017-12-23 21:45:00 Memori al [place] Systolic (mm Hg) 2017-12-23 21:39:00 Ryan rial [place] Diastolic (mm Hg) 2017-12-23 21:39:00 Mem orial [place] Respitory Rate 2017-12-23 21:39:00 Memori al [place] Systolic (mm Hg) 2017-12-23 21:24:00 Ryan rial [place] Diastolic (mm Hg) 2017-12-23 21:24:00 Mem orial [place] Respitory Rate 2017-12-23 21:24:00 Memori al [place] Heart Rate 2017-12-23 15:46:00 [facility] [place] BMI Calculated 2017-12-18 15:02:00 Memori al [place] Weight 2017-12-18 15:02:00 [facility] [place] Height 2017-12-18 15:02:00 180.34 cm [facility] [place] BMI Calculated 2017-11-28 16:03:00 Memori al [place] Heart Rate 2017-11-28 16:03:00 [facility] [place] Systolic (mm Hg) 2017-11-28 16:03:00 Ryan rial [place] Diastolic (mm Hg) 2017-11-28 16:03:00 Mem orial [place] Height 2017-11-28 16:03:00 177.8 cm [facility] [place] Weight 2017-11-28 16:03:00 [facility] [place] Procedures Procedure Date / Time Performing Clinician Source Performed Pre Op Promise 29 Survey 2018-09-10 00:00:00 [facility] Measurement of 2018-02-24 15:04:00 Memorial dickson post-voiding residual urine and/or bladder capacity by ultrasound, non-imaging CABG - Coronary artery [facility] [place] bypass graft<sup>1</sup> Cardiac [facility] [place] catheterization<sup>2</s up> Carotid [facility] [place] endarterectomy<sup>3</beckett p> Repair of diaphragmatic [facility] [place] hiatal hernia<sup>4</sup> History of Heart Surgery [facility] History of Angioplasty [facility] Internal Carotid Artery Physicia ns Plan [...] 00:00:00 (1 of 1 - [facility] [id number] PCV13) [code = PNEUMOCOCCAL 65+ YRS (1 of 1 - [id number] PCV13)] Encounters Start End Encounter Admission Attending Care Care Encounter Source Date/Time Date/Time Type Type Clinicians Facility Department ID 2020-10-31 2020-10-31 [id number] 09:30:00 09:30:00 Syed Samaniego 15 2020-02-24 2020-02-24 Outpatient Clif [facility] [id number] 09:00:00 23:59:59 Gabrielle Figueroa 16 2019-11-02 2019-11-02 Outpatient Familia [facility] [id number] 11:00:00 23:59:59 Syed Samaniego 14 2019-05-04 2019-05-04 Outpatient Familia [facility] [id number] 10:15:00 23:59:59 Syed Samaniego 13 2018-10-22 2018-11-20 Outpatient Toro [id number] 08:38:00 23:59:00 Yakov [id number] [place] [id number] 5.98 2018-11-03 2018-11-03 Outpatient Familia [facility] [id number] 10:30:00 23:59:59 Syed Samaniego 12 2018-09-22 2018-10-21 Outpatient Trung Engel.[id number]. [id number] 09:51:00 23:59:00 Yakov [id number]. [id number] [place] [id number] 5.98 2018-09-17 2018-09-[facility] [id number] Univers 09:30:00 09:30:00 t; Carlos Eduardo YAÑEZ [facility] of [facility] ENGEL S Allison Wahl M.D. Needles ans 2018-05-05 2018-05-05 Outpatient Familia [facility] [id number] 11:15:00 23:59:59 Syed Samaniego 09 2018-03-19 2018-03-20 Outpatient [facility] [id number] 13:39:00 23:59:59 06 2018-02-24 2018-02-24 Outpatient JES Wasserman [facility] [id number] 09:15:00 23:59:59 Robbi 11 2018-01-16 2018-01-16 [place] [id number] 14:15:00 14:15:00 Robbi 10 2018-01-16 2018-01-16 Outpatient Lux MG [facility] [id number] 14:15:00 14:15:00 Robbi 10 2018-01-06 2018-01-07 Outpatient MG [facility] [id number] 11:57:00 23:59:59 05 2017-12-31 2018-01-02 Outpatient Asad, Latonya Latonya [facility] [id number] 22:14:00 16:55:00 A 14 2017-12-31 2017-12-31 Outpatient Katy [facility] [id number] 22:12:00 22:12:00 Neri Javed 2017-12-23 2017-12-23 Outpatient Gomez, Fer [facility] [id number] 05:43:00 17:20:00 Efren Jadiel 2017-11-28 2017-11-28 Outpatient Nancy [facility] [id number] 10:45:00 23:59:59 Laith Wilson Max 2017-11-28 2017-11-28 Outpatient Nancy [facility] [id number] 10:45:00 23:59:59 Laith Wilson Max 2017-07-19 2017-07-20 Outpatient [facility] [id number] 16:08:00 23:59:59 04 2017-04-30 2017-04-30 Appointrene ENGEL [facility] [id number] Univers 11:30:00 11:30:00 t; Carlos Eduardo YAÑEZ it y of Sandra [facility]EL [facility] M.D. ans Results Test Test Test Results Result Source Description Time Comments Comments [U] XRAY SPINE 2018-09- Images acquired, not University of LUMBOSACRAL MIN 09 reported on this Qasim as 4 VWS [id number] 11:15:00 accession number. Jett ians [U] XRAY HIPS 2018-09- Images acquired, not U niversity of BILATERAL MIN 2 09 reported on this Qasim as VWS AND AP 07:43:00 accession number. Ailyn VIRGEN [id number] TISSUE EXAM 2018-05- Surgical Pathology 10 Report 17:28:00 Case: [id number] Authorizing Provider: Byron Ardon MD Collected: 05/13/2018 1448 Ordering Location: [facility] PERIOPERATIVE Received: 05/14/2018 0818 SERVICES [...] FAST MICROORGANISMS Signing Pathologist Direct Phone Line: [phone] ly signed by Eze Guzman MD on 05/19/2018 at 5:28 PMPreliminary result electronically signed by Eze Guzman MD on 05/16/2018 at 11:49 AMSpecial stains for AFB and GMS were negative for acid fast and fungal microorganisms, respectively. [id number] B9Bjssoxahor bladder emptying A. Mesh; B. Bladder with [...] surface throughout. No discrete masses are identified. Straightedge Worker sections are submitted in cassettes C1-C19. DB/plPerformed POCT-GLUCOSE METER 2018-05-16 07:37:00 Test Item Value Reference Range Interpretation Comme nts POC-GLUCOSE METER (BEAKER) (test 184 mg/dL 70-[address] [facility] [address] code = 1538) [facility] 7703 0 BASIC METABOLIC [id number] 06:19:00 Test Item Value Reference Range Interpretation [...] CORPUSCULAR HEMOGLOBIN CONC 32.2 GM/DL 32.3-36.5 L ([facility]) (test code = 752) RED CELL DISTRIBUTION WIDTH 13.2 % 11.6-14.4 ([facility]) (test code = 412) PLATELET COUNT ([facility]) (test 191 K/CU MM 150-450 code = 756) MEAN PLATELET VOLUME ([facility]) 10.6 fL 9.4-12.4 (test code = 754) NUCLEATED RED BLOOD CELLS 0 /100 WBC 0-0 ([facility]) (test code = 413) POCT-GLUCOSE [id number] 21:51:00 Test Item Value Reference Range Interpretation Comments POC-GLUCOSE METER 216 mg/dL 70-110 H TESTED AT [place] [address] ([facility]) (test code = TALA Shultz [facility] 1538) [id number] POCT-GLUCOSE [id number] 19:28:00 Test Item Value Reference Range Interpretation Comments POC-GLUCOSE METER 186 mg/dL 70-110 H TESTED AT [place] [address] ([facility]) (test code = TALA Shultz [facility] 1538) [id number] POCT-GLUCOSE [id number] 16:57:00 Test Item Value Reference Range Interpretation Comments POC-GLUCOSE METER 215 mg/dL 70-110 H TESTED AT [place] [address] ([facility]) (test code = TALA Shultz [facility] 1538) [id number] POCT-GLUCOSE [id number] 12:43:00 Test Item Value Reference Range Interpretation Comments POC-GLUCOSE METER 223 mg/dL 70-110 H TESTED AT [place] [address] ([facility]) (test code = TALA Shultz [facility] 1538) 91532 POCT-GLUCOSE [id number] 08:13:00 Test Item Value Reference Range Interpretation Comments POC-GLUCOSE METER 157 mg/dL 70-110 H TESTED AT [place] [address] ([facility]) (test code = [facility] 1538) 41920 GENTAMICIN LEVEL, [id number] 05:51:00 Test Item Value Reference Range Interpretation Comments GENTAMICIN TROUGH ([facility]) (test 1.9 ug/mL 0.5-1.0 H code = 398) Dosing Target Level (mcg/mL)1-1.5 mg/kg q 8-12 HR 0.5-1.03-7 mg/kg q 24 HR <0.5BASIC METABOLIC [id number] 05:47:00 Test Item Value Reference Range Interpretation [...] 0-0 (BEAKER) (test code = 413) POCT-GLUCOSE [id number] 21:47:00 Test Item Value Reference Range Interpretation Comments POC-GLUCOSE METER 220 mg/dL 70-110 H TESTED AT [place] [address] ([facility]) (test code = [facility] 1538) [id number] POCT-GLUCOSE [id number] 17:06:00 Test Item Value Reference Range Interpretation Comments POC-GLUCOSE METER 211 mg/dL 70-110 H TESTED AT [place] [address] ([facility]) (test code = [facility] 1538) 05891 POCT-GLUCOSE [id number] 11:44:00 Test Item Value Reference Range Interpretation Comments POC-GLUCOSE METER 225 mg/dL 70-110 H TESTED AT [place] [address] ([facility]) (test code = [facility] 1538) 89022 POCT-GLUCOSE [id number] 08:29:00 Test Item Value Reference Range Interpretation Comments POC-GLUCOSE METER 201 mg/dL 70-110 H TESTED AT [place] [address] ([facility]) (test code = [facility] 1538) 52347 BASIC METABOLIC [id number] 06:04:00 Test Item Value Reference Range Interpretation [...] 0-0 (BEAKER) (test code = 413) POCT-GLUCOSE [id number] 21:39:00 Test Item Value Reference Range Interpretation Comments POC-GLUCOSE METER 275 mg/dL 70-[address] [facility] 6720 (BEAKER) (test code = TALA VINCENT 1538) 08021 BASIC METABOLIC [id number] 19:42:00 Test Item Value Reference Range Interpretation [...] 0-0 (BEAKER) (test code = 413) POCT-GLUCOSE [id number] 18:50:00 Test Item Value Reference Range Interpretation Comments POC-GLUCOSE METER 197 mg/dL 70-[address] [facility] 6720 ([facility]) (test code = TALA Shultz [facility] 1538) [address]38 VANCOMYCIN LEVEL, [id number] 12:29:00 Test Item Value Reference Range Interpretation Comments VANCOMYCIN TROUGH ([facility]) (test 20.9 ug/mL 10.0-20.0 H code = 522) Please draw trough at 1330 (30 minutes prior to scheduled vancomycin dose at 1400).POCT-GLUCOSE [id number] 07:17:00 Test Item Value Reference Range Interpretation Comments POC-GLUCOSE METER 148 mg/dL 70-[address] [facility] 67 ([facility]) (test code = TALA Shultz [facility] 1538) 80665 POCT-GLUCOSE [id number] 06:09:00 Test Item Value Reference Range Interpretation Comments POC-GLUCOSE METER 149 mg/dL 70-110 H TESTED AT [place] [address] ([facility]) (test code = TALA Shultz [facility] 1538) 92869 BASIC METABOLIC [id number] 06:04:00 Test Item Value Reference Range Interpretation [...] 0-0 (BEAKER) (test code = 413) POCT-GLUCOSE [id number] 21:17:00 Test Item Value Reference Range Interpretation Comments POC-GLUCOSE METER 164 mg/dL 70-110 H TESTED AT [place] [address] ([facility]) (test code = TALA Shultz [facility] 1538) 23806 POCT-GLUCOSE [id number] 16:39:00 Test Item Value Reference Range Interpretation Comments POC-GLUCOSE METER 225 mg/dL 70-110 H TESTED AT [place] [address] ([facility]) (test code = RHIANNAMIKAYLA Shultz [place] 1538) [address] POCT-GLUCOSE [id number] 12:09:00 Test Item Value Reference Range Interpretation Comments POC-GLUCOSE METER 186 mg/dL 70-110 H TESTED AT [place] [address] ([facility]) (test code = RHIANNAMIKAYLA Shultz [facility] 1538) [address] POCT-GLUCOSE [id number] 08:50:00 Test Item Value Reference Range Interpretation Comments POC-GLUCOSE METER 194 mg/dL 70-110 H TESTED AT [place] [address] (BEAKER) (test code = [place] 1538) [address] BASIC METABOLIC [id number] 06:04:00 Test Item Value Reference Range Interpretation [...] 0-0 (BEAKER) (test code = 413) POCT-GLUCOSE [id number] 00:11:00 Test Item Value Reference Range Interpretation Comments POC-GLUCOSE METER 143 mg/dL 70-110 H TESTED AT [place] [address] ([facility]) (test code = [facility] Lexii [facility] 1538) [address] POCT-GLUCOSE [id number] 17:16:00 Test Item Value Reference Range Interpretation Comments POC-GLUCOSE METER 261 mg/dL 70-110 H TESTED AT [place] [address] ([facility]) (test code = [facility] Lexii [facility] 1538) [address] POCT-GLUCOSE [id number] 10:04:00 Test Item Value Reference Range Interpretation Comments POC-GLUCOSE METER 153 mg/dL 70-110 H TESTED AT [place] [address] ([facility]) (test code = [facility] 1538) [address] BASIC METABOLIC [id number] 17:28:00 Test Item Value Reference Range Interpretation [...] S NOT APPLICABLE FOR DIALYSIS ARCELIA GREENE [id number] 17:26:00 Test Item Value Reference Range Interpretation Comments PARTIAL THROMBOPLASTIN TIME 28.7 seconds 22.5-36.0 (BEAKER) (test code = 760) PROTHROMBIN TIME/[id number] 17:25:00 Test Item Value Reference Range Interpretation [...] (test code = 2801) RAD, CHEST, 2 [id number] 16:06:00Reason for exam:->screening prior to anesthesiaFINAL REPORT [...] MDReport Verified Date/Time: 04/30/2018 16:06:13 Reading Location: [address] Radiology Reading Room CHEM [id number] 08:35:002.2[facility] VkhplilMIPOVOAIRSSQ7354-47-83 08:35:0012.7[facility] YvqubvzJIYHSNVQDUCL2654-89-76 08:35:0028[facility] IGBPAJKPFWRR7760-89-12 08:35:007.7[facility] PaujsulLQHKWNBFHUZZ6419-58-60 08:35:0012[facility] BexytroCFMNHCRYDHXZ3796-99-26 08:35:66211Eyfrvtvv [facility] BCMBVCQXFIQB3769-85-68 08:35:93904Hjkvlnbg LdcffukBMHPGADHLXIG6341-21-20 08:35:003.7[facility] GgdzylgAXBYLKFQDRJL3144-92-97 08:35:0085[facility] VSLZXVJEEGYH2344-46-25 08:35:75962Axouzdbr CvcydgjBWRRKLCDDOZR9031-26-90 08:35:000.81[facility] FdeakjyBHDLKCAQZR0294-07-94 08:35:008.2[facility] INBRQKDIQW4307-95-73 08:35:75483Udkkcumc SrtgfjjTREJGBFAOG9987-29-06 08:35:00 14.0[facility] MiogygkTKPLVXGKTS5269-52-03 08:35:009.7[facility]ann[facility]OLOGY 2018-01-02 08:35:003.93[facility] LcvewfkIRDAGTKNOG8279-15-04 08:35:0012.0[facility] OzhgupwPEGKKFBDQU7090-11-83 08:35:0035.4[facility] YayyzpjZOXIJMWXOU4671-10-62 08:35:0090.1[facility] TtrvfazBHMAWIZYOE6824-22-53 08:35:00 Test Item Value Reference Range Interpretation Comments MCH (test code = MCH) 30.6 pg 27.0-31.0 [facility] YyjlmwyKRIQZMTJOS1609-12-66 08:35:0034.0[facility]ann[facility]MATOLOGY 2018-01-02 08:35:000.1[facility] PenqjgsNHDOIDARSP9798-33-78 08:35:0066.9[facility] CptsxmsFJBLFGZOPI4704-50-60 08:35:004.7[facility] HshwjvjQDPLLDJOSY0327-10-19 08:35:001.1[facility] ZtltwhdRDWMQLBYQO6911-67-96 08:35:0019.1[facility] JQNXOEBSRK5653-96-40 08:35:008.2[facility] FvierrrMNBCFWJXEN1420-92-91 08:35:006.5 [facility] NzqwmnfPXVHVMMGMT6068-43-16 08:35:000.5[facility]ann[facility]Y 2018-01-02 08:35:000.8[facility] QkgadotEHKNXUZOFU8998-90-23 08:35:001.9[facility] HermannCARDIAC AQRFSBE7434-71-34 05:05:74527Necbffff HermannCHEM JTCHH6047-35-83 05:05:001.4[facility] AmlaydjZJCCXHVDSXFK5060-67-31 05:05:0010.5[facility] KPGJDTNOZKVP8113-21-61 05:05:0033[facility] BocdzmoROOTSZZMZNFU0844-87-24 05:05:00 8.2[facility] PgmstsfNPBJGWTIAXOK2192-57-03 05:05:003.5[facility] OUYCFILANPQC2538-18-13 05:05:36338Aiwyiqvz FkdcjvvVZZSIVAKDVRU7188-78-13 05:05:39135Ryccszxz SyywfaxAHEJWXJYDERN0982-70-23 05:05:0018[facility] HTCKBKGPHEVL3905-76-83 05:05:26420Ngqgzlqc RypbqilCEQSKCWZZWNY3758-24-06 05:05:0080[facility] NbhaetgVYVZIIZIEAUQ9965-14-98 05:05:000.92[facility] KJLWBRCDAV5460-28-31 05:05:006.9[facility] BrmrriwJPILFHRNDQ7250-66-63 05:05:001.9 [facility] NrthfhzWMUELFEEZU4670-31-01 05:05:000.8[facility]annHEMATOLOGY 2018-01-01 05:05:000.1[facility] MywtihjUKQUQCMBDG2223-73-01 05:05:000.6[facility] HdxueteRDFPXOBAZH7229-12-41 05:05:0066.9[facility] UltagryNZFWBUBWOY2683-68-95 05:05:000.9[facility] QjasotbMCHSBMASCL2966-13-05 05:05:005.6[facility] OVOUTGGAJV1017-77-14 05:05:007.8[facility] MurycjjPNHHAHGDCW7949-15-51 05:05:00 18.8[facility] AszptoeFUKVNSOJER2158-97-78 05:05:0014.3[facility]annHEMATOLOGY 2018-01-01 05:05:85786Hogmipyc MzifaetAXZPMCKNZR1170-00-10 05:05:008.2[facility] MnnlevaOTAUQFQJIZ6324-59-98 05:05:0010.3[facility] NhtqjtcEXKVNCJDNC4689-06-18 05:05:0033.9[facility] FyivslqHJHYVRTZDG3638-99-09 05:05:004.35[facility] NXGABUFRXV1463-68-44 05:05:0013.3[facility] GprmwvxWDOWMHXKUV7141-57-14 05:05:00 39.3[facility] TrijjivSGOETDNVHR5582-40-46 05:05:0090.5[facility]annHEMATOLOGY 2018-01-01 05:05:00 Test Item Value Reference Range Interpretation Comments MCH (test code = MCH) 30.6 pg 27.0-31.0 [facility] ESYBW1480-81-71 04:41:68854Bmsoapxd [facility] AND OLVYX2464-23-51 04:41:0085[facility] DJSKP9105-11-44 04:41:00 Moderate *ABN*(12/31/17 11:41 PM)[facility] XWZXE7705-71-04 04:41:004.0[facility] WXIAJ9519-71-63 04:41:00 Test Item Value Reference Range Interpretation Comments UA pH (test code = UA pH) 7.0 1 5.0-8.0 [facility] [id number] 04:41:00Moderate *ABN*(12/31/17 11:41 PM)[facility] BIUND4430-36-85 04:41:0072[facility] GRQSC0749-76-57 04:41:00Negative *NA*(12/31/17 11:41 PM)[facility] KIOUU8579-98-85 04:41:00Negative (12/31/17 11:41 PM)[facility] XDCPO6484-56-71 04:41:00Slight *ABN*(12/31/17 11:41 PM)[facility] JVQLG8376-48-59 04:41:00 Test Item Value Reference Range Interpretation Comments UA Spec Grav (test code = UA Spec 1.018 1 Grav) [facility] COWIE1977-79-16 04:41:00Dark Yellow *NA*(12/31/17 11:41 PM)[facility] FxuskgoSSUQHKBTVUXM0101-58-14 15:30:004.3[facility] RWULRIGEDQCW1531-21-14 15:30:17717Thjyaipm PsxgtvyOSXYDYQZILWG8807-13-29 15:30:0028[facility] TwiyxeyDYQYXIJESSBS9382-78-79 15:30:009.8[facility] FBLLEMAUTJYY2354-80-53 15:30:84824Vbdcpgah PsevpphFONXGPFTGAUI7321-16-45 15:30:56395Okiwpswl PpvpnalRKUDQHPAYPNL4677-69-88 15:30:0017[facility] AZDRHYNPITBG7382-30-83 15:30:0063[facility] ZnuibosOQMNOSZVDSZA9775-03-10 15:30:00 1.12[facility] YwrhdvxSBVPIDMPXVKC8434-46-89 15:30:0012.3[facility] DHAXHTXQLS0373-85-33 15:30:0043.7[facility] XqvmdnjLZNHMLPEIL5374-04-54 15:30:00 14.7[facility]
[2021-03-07] MEDS ORDERED: NA CHLORIDE 0.9% 500 ML ONE (10:48)
[2021-03-07 10:53] LABS: Absolute Lymphocytes (CBC) 1.7 K/uL (0.7-4.9); Basophils % 1.3 % (0-1.3); Hematocrit 35.6 % (39.6-49.0); Lymphocytes % 15.6 % (15.3-44.8); MPV 10.1 fL (7.6-11.3); RBC Red Blood Cell Count 3.68 M/uL (4.33-5.43)
[2021-03-07 10:55] LABS: Protime INR 1.16
[2021-03-07 11:18] LABS: ALT/SGPT 17 U/L (12-78); AST/SGOT 16 U/L (15-37); Alkaline Phosphatase 91 U/L (45-117); BUN Blood Urea Nitrogen 17 mg/dL (7-18); Bicarbonate 27 mmol/L (21-32); Bilirubin Direct 0.3 mg/dL (0-0.2); Bilirubin Total 1.2 mg/dL (0.2-1.0); Creatine Phosphokinase 41 U/L (39-308); Glucose Level 85 mg/dL (74-106); Magnesium 1.5 mg/dL (1.8-2.4); NT PRO-BNP 7073 pg/mL (<450); Potassium 4.4 mmol/L (3.5-5.1); Sodium Level 141 mmol/L (136-145); Troponin (Emerg Dept Use Only) < 0.02 ng/mL (0.0-0.045)
--- NOTE | 2021-03-07 11:23 | RAD REPORT ---
EXAM DESCRIPTION: RAD - Chest Single View - 03/07/2021 10:48 am CLINICAL HISTORY: AMS COMPARISON: Portable January 06 TECHNIQUE: AP portable chest image was obtained 03/07/2021 10:48 am . FINDINGS: No new mass or consolidation. Patient has interstitial pattern matches the prior study. CA BG surgical changes are noted. Mild cardiomegaly matches comparison. No abnormal vascular engorgement . Trachea is midline. No measurable pleural effusion and no pneumothorax. No acute bony abnormality s een. No acute aortic findings suspected. IMPRESSION: Chronic interstitial opacification similar to comparison. Mild cardiomegaly similar to comparison. No new or progressive finding since prior examination. A mild failure or volume overload is still a c onsideration.
--- NOTE | 2021-03-07 11:29 | RAD REPORT ---
EXAM DESCRIPTION: CT - Head Brain Wo Cont - 03/07/2021 11:09 am CLINICAL HISTORY: CONFUSED, transient alteration of awareness COMPARISON: Ct Stroke Brain Wo Cont dated 01/06/2021; Brain Wo Cont dated 01/06/2021 TECHNIQUE: Axial 5 mm thick images of the head were obtained without IV contrast. All CT scans are performed using dose optimization technique as appropriate and may include automated exposure control or mA/KV adjustment according to patient size. FINDINGS: No intracranial hemorrhage. No mass effect, edema or shift of midline structures. Patient has moderate severity atrophy as a baseline with ventricles in proportion. Advanced chronic ischemic changes are present throughout the cerebral white matter and extending into the basal ganglia similar to comparison. Dense arterial tree calcifications are present. In the left parietal lobe there is de creased visualization of the sulci and loss of the burroughs matter- white matter differentiation. A 2.5 c entimeter area of diminished attenuation is present in the posteromedial right cerebellum new from e December study. Vertebrobasilar tortuosity present. Mastoid air cells are partially opacified. No acute paranasal sinus finding. No acute bony findings. 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 Posterior medial right cerebellum CVA possibly subacute in age.
--- NOTE | 2021-03-07 11:36 | RAD REPORT ---
EXAM DESCRIPTION: CT - Abdomen Pelvis W Contrast - 03/07/2021 11:08 am CLINICAL HISTORY: AMS, abd pain COMPARISON: Abdomen Pelvis W Contrast dated 05/26/2020; Abdomen Pelvis W Contrast dated 6 TECHNIQUE: Biphasic, helical CT imaging of the abdomen and pelvis was performed following 100 ml non -ionic IV contrast. No oral contrast administered. All CT scans are performed using dose optimization technique as appropriate and may include automated exposure control or mA/KV adjustment according to patient size. FINDINGS: Prominent cardiomegaly similar to comparison. No pericardial thickening or effusion. No acute lung parenchymal finding. A 3.8 centimeter sized focus of dense parenchyma noted in the post erior gutter on the left. This is diminished slightly in size from comparison. Scarring or chronic at electasis is most likely. Malignant mass lesion is not suspected given the interval reduction in size . Liver is prominent in size but unchanged. No focal liver lesion identified. No pancreatic or peripanc reatic abnormality. No splenic abnormality seen. Gallbladder and biliary tree are also without suspic ious finding. Gallstones can be occult on CT imaging. No hydronephrosis or obstructing calculi seen. Nonobstructing calculi are present in the lower pole o f the right kidney and upper pole of the left kidney. Bilateral renal cysts are present. Renal parenc hymal enhancement is more heterogeneous. Some of this is due to artifact from the patient's arms bein g along his side. This causes a streak artifact across the kidneys. Pyelonephritis is still concernin g and needs correlation with clinical and laboratory findings. Partially filled urinary bladder shows slight wall thickening. There are surgical clips present along the lower anterior abdominal wall carla r the pubic symphysis. Urinary bladder may be adhered or tethered to the anterior abdominal wall. No adrenal abnormalities. Prostate gland is enlarged. No stomach or small bowel abnormality. Moderate stool volume is present throughout the colon. Larger stool volume distends the rectum to 6 cm. Sigmoid diverticulosis present without diverticulitis. Soft tissues are mildly prominent at the anus. CT imaging is limited in assessment in this region. No venecia e air, free fluid or inflammatory stranding. No mass or bulky lymphadenopathy. Advanced bony degenerative change. No pathologic bone process seen. IMPRESSION: Kidneys show a heterogeneous enhancement pattern some of which is due to the streak mayelin fact from the patient's arms. Findings are still concerning for possible bilateral pyelonephritis an d correlation is needed with any supporting clinical history or laboratory abnormality. Moderate stool volume throughout the colon. No acute GI process confirmed. Postsurgical changes to the lower anterior abdominal wall with adhered or tethered urinary bladder. T his matches comparison.
--- NOTE | 2021-03-07 12:45 | ER ---
Nurse's Notes [facility] Name: Abisai Salinas Age: 80 yrs Sex: Male : 1940 Arrival Date: 03/07/2021 Time: 10:18 Bed 7 Private MD: Diagnosis: Altered mental status, unspecified;Cerebral infarction, unspecified Presentation: 03/07 10:26 Chief complaint: EMS states: AMS since this morning. Coronavirus screen: At this time, hb the client does not indicate any symptoms associated with coronavirus-19. Ebola Screen: No symptoms or risks identified at this time. Initial Sepsis Screen: Does the patient meet any 2 criteria? No. Patient's initial sepsis screen is negative. Does the patient have a suspected source of infection? No. Patient's initial sepsis screen is negative. Risk Assessment: Do you want to hurt yourself or someone else? Patient reports no desire to harm self or others. Onset of symptoms was March 07, 2021. 10:26 Method Of Arrival: EMS: [facility] 10:26 Acuity: BIB 2 hb Triage Assessment: 10:28 General: Appears in no apparent distress. Behavior is calm, cooperative. Pain: Denies hb pain. EENT: No signs and/or symptoms were reported regarding the EENT system. Neuro: Level of Consciousness is obeys commands, lethargic, Oriented to person. Cardiovascular: Patient's skin is warm and dry. Rhythm is regular. Respiratory: Respiratory effort is even, unlabored, Respiratory pattern is regular, symmetrical. GI: No signs and/or symptoms were reported involving the gastrointestinal system. : No signs and/or symptoms were reported regarding the genitourinary system. Derm: Skin is pink, warm \T\ dry. Musculoskeletal: No signs and/or symptoms reported regarding the musculoskeletal system. Historical: - Allergies: 10:27 No Known Allergies; hb - Home Meds: 10:27 Aleve 220 mg Oral cap twice a day [Active]; aspirin 81 mg Oral chew 1 tab once daily hb [Active]; atorvastatin 40 mg Oral tab 1 tab once daily [Active]; brimonidine-timolol ophthalmic [Active]; carvedilol 3.125 mg Oral tab 2 times per day [Active]; docusate sodium 100 mg Oral cap as needed [Active]; donepezil 5 mg Oral tab once daily [Active]; Eliquis 5 mg Oral tab 1 tab 2 times per day [Active]; folic acid 1 mg Oral tab 1 tab once daily [Active]; glipizide 5 mg Oral tab 1 tab once daily [Active]; Insulin Glargine Sub-Q 5 unit twice a day [Active]; Januvia 50 mg Oral tab once daily [Active]; Lantus 100 unit/mL Sub-Q soln [Active]; lisinopril 40 mg Oral tab 1 tab once daily [Active]; magnesium oxide 400 mg Oral tab 400 mg daily [Active]; memantine 10 mg Oral tab 1 tab 2 times per day [Active]; metformin 1,000 mg Oral tab 1 tab 2 times per day [Active]; metoprolol succinate 100 mg Oral Tb24 1 tab once daily [Active]; metoprolol tartrate 100 mg Oral tab 1 tab once daily [Active]; Miralax 17 gram/dose Oral powd once daily [Active]; Pepcid 20 mg Oral tab once daily [Active]; Plavix 75 mg Oral tab 1 tab once daily [Active]; potassium chloride 10 mEq Oral TbTQ 2 times per day [Active]; quetiapine 25 mg Oral tab 1 tab twice a day [Active]; sitagliptin 50 mg Oral 1 tab once daily [Active]; travoprost ophthalmic once daily [Active]; Vitamin C 500 mg Oral tab daily [Active]; Vitamin D Oral daily [Active]; zinc 50 mg Oral tab daily [Active]; - PMHx: 10:27 Atrial Fib; CVA; Dementia; Diabetes - IDDM; Hypertension; Left hand numbness-Deficit hb from previous CVA; Left-sided weakness from previous CVA; - Immunization history:: Adult Immunizations up to date. - Social history:: Smoking status: Patient denies any tobacco usage or history of. - Family history:: not pertinent. - Hospitalizations: : No recent hospitalization is reported. Screenin:55 Abuse screen: Denies threats or abuse. Denies injuries from another. Nutritional hb screening: No deficits noted. Tuberculosis screening: No symptoms or risk factors identified. Fall Risk Total Lombardi Fall Scale indicates Low Risk Score (25-44 pts). Fall prevention measures have been instituted. Side Rails Up X 2 Frequent Obs/Assesments occuring Family Present and informed to notify staff if they need to leave bedside As available Patient and Family Educated on Fall Prevention Program and strategies. Assessment: 10:30 General: see triage assessment.. hb 12:00 Reassessment: Patient appears in no apparent distress at this time. No changes from hb previously documented assessment. Patient and/or family updated on plan of care and expected duration. Pain level reassessed. 13:00 Reassessment: Patient appears in no apparent distress at this time. No changes from hb previously documented assessment. Patient and/or family updated on plan of care and expected duration. Pain level reassessed. 14:00 Reassessment: Patient appears in no apparent distress at this time. No changes from hb previously documented assessment. Patient and/or family updated on plan of care and expected duration. Pain level reassessed. 15:00 Reassessment: Patient appears in no apparent distress at this time. No changes from hb previously documented assessment. Patient and/or family updated on plan of care and expected duration. Pain level reassessed. 16:00 Reassessment: Patient appears in no apparent distress at this time. No changes from hb previously documented assessment. Patient and/or family updated on plan of care and expected duration. Pain level reassessed. 16:54 Reassessment: Patient appears in no apparent distress at this time. No changes from hb previously documented assessment. Patient and/or family updated on plan of care and expected duration. Pain level reassessed. Vital Signs: 10:26 BP 171 / 73; Pulse 60; Resp 16; Temp 97.8; Pulse Ox 98% on R/A; Pain 0/10; hb 11:45 BP 163 / 87; Pulse 63; Resp 22; Pulse Ox 100% on R/A; hb 12:30 BP 160 / 90; Pulse 56; Resp 22; Pulse Ox 99% on R/A; hb 13:30 BP 168 / 88; Pulse 56; Resp 17; Pulse Ox 100% on R/A; hb 14:30 BP 145 / 75; Pulse 51; Resp 20; Pulse Ox 100% on R/A; hb 15:30 BP 175 / 79; Pulse 54; Resp 22; Pulse Ox 99% on R/A; hb 16:30 BP 153 / 81; Pulse 63; Resp 19; Pulse Ox 98% on R/A; hb ED Course: 10:18 Patient arrived in ED. rn 10:18 Axel Palomares MD is Attending Physician. rn 10:26 Dora Deshpande, RN is Primary Nurse. hb 10:27 Triage completed. hb 10:27 Arm band placed on. hb 10:48 XRAY Chest (1 view) In Process Unspecified. EDMS 11:00 Patient has correct armband on for positive identification. Bed in low position. Call hb light in reach. 11:08 CT Abd/Pelvis - IV Contrast Only In Process Unspecified. EDMS 11:09 CT Head Brain wo Cont In Process Unspecified. EDMS 12:45 Dae Arteaga is Hospitalizing Provider. rn 16:08 pts .........Antionette Salinas [phone]. bd 17:26 No provider procedures requiring assistance completed. Patient admitted, IV remains in hb place. Administered Medications: 10:35 Drug: NS 0.9% 500 ml Route: IV; Rate: bolus; Site: right antecubital; hb 11:05 Follow up: Response: No adverse reaction; IV Status: Completed infusion; IV Intake: hb 500ml 12:55 Drug: Aspirin Chewable Tablet 324 mg Route: PO; hb 13:45 Follow up: Response: No adverse reaction hb 12:55 Drug: foLIC Acid 1 mg Route: IVPB; Site: right antecubital; hb 13:30 Follow up: Response: No adverse reaction; IV Status: Completed infusion; IV Intake: 20mlhb Intake: 11:05 IV: 500ml; Total: 500ml. hb 13:30 IV: 20ml; Total: 520ml. hb Outcome: 12:45 Decision to Hospitalize by Provider. rn 17:26 Admitted to Tele accompanied by tech, via stretcher, room 219. hb 17:26 Condition: stable 17:26 Instructed on the need for admit, Demonstrated understanding of 17:27 Patient left the ED. hb Signatures: Dispatcher [employer] EDMS Catina Roque Axel Palomares MD MD rn Dora Deshpande, MICHI RN hb
[2021-03-07 12:46] LABS: Urine Blood Negative (Negative); Urine Glucose Negative (Negative); Urine Protein Negative (Negative); Urine Specific Gravity >=1.030 (1.005-1.030); Urine pH 6.5 (5.0-7.0)
--- NOTE | 2021-03-07 12:46 | EDPHYS ---
Physician Documentation [facility] Name: Abisai Salinas Age: 80 yrs Sex: Male : 1940 Arrival Date: 03/07/2021 Time: 10:18 Bed 7 Private MD: ED Physician Axel Palomares HPI: 03/07 10:22 This 80 yrs old Male presents to ER via Unassigned with complaints of AMS. rn 10:22 The patient presents with confusion, decreased responsiveness, disorientation. Onset: rn The symptoms/episode began/occurred at an unknown time. Possible causes: unknown. Associated signs and symptoms: Pertinent positives: confusion. Current symptoms: In the emergency department the patient's symptoms are unchanged from the initial presentation. It is unknown whether or not the patient has had similar symptoms in the past. It is unknown whether or not the patient has recently seen a physician. Per EMS, picked up from home for AMS, seems was normal around 2030 last night, woke up like this with confusion and disorientation, no known trauma. Denies focal pain. No vomiting/diarrhea/cough/sob. . Historical: - Allergies: 10:27 No Known Allergies; hb - Home Meds: 10:27 Aleve 220 mg Oral cap twice a day [Active]; aspirin 81 mg Oral chew 1 tab once daily hb [Active]; atorvastatin 40 mg Oral tab 1 tab once daily [Active]; brimonidine-timolol ophthalmic [Active]; carvedilol 3.125 mg Oral tab 2 times per day [Active]; docusate sodium 100 mg Oral cap as needed [Active]; donepezil 5 mg Oral tab once daily [Active]; Eliquis 5 mg Oral tab 1 tab 2 times per day [Active]; folic acid 1 mg Oral tab 1 tab once daily [Active]; glipizide 5 mg Oral tab 1 tab once daily [Active]; Insulin Glargine Sub-Q 5 unit twice a day [Active]; Januvia 50 mg Oral tab once daily [Active]; Lantus 100 unit/mL Sub-Q soln [Active]; lisinopril 40 mg Oral tab 1 tab once daily [Active]; magnesium oxide 400 mg Oral tab 400 mg daily [Active]; memantine 10 mg Oral tab 1 tab 2 times per day [Active]; metformin 1,000 mg Oral tab 1 tab 2 times per day [Active]; metoprolol succinate 100 mg Oral Tb24 1 tab once daily [Active]; metoprolol tartrate 100 mg Oral tab 1 tab once daily [Active]; Miralax 17 gram/dose Oral powd once daily [Active]; Pepcid 20 mg Oral tab once daily [Active]; Plavix 75 mg Oral tab 1 tab once daily [Active]; potassium chloride 10 mEq Oral TbTQ 2 times per day [Active]; quetiapine 25 mg Oral tab 1 tab twice a day [Active]; sitagliptin 50 mg Oral 1 tab once daily [Active]; travoprost ophthalmic once daily [Active]; Vitamin C 500 mg Oral tab daily [Active]; Vitamin D Oral daily [Active]; zinc 50 mg Oral tab daily [Active]; - PMHx: 10:27 Atrial Fib; CVA; Dementia; Diabetes - IDDM; Hypertension; Left hand numbness-Deficit hb from previous CVA; Left-sided weakness from previous CVA; - Immunization history:: Adult Immunizations up to date. - Social history:: Smoking status: Patient denies any tobacco usage or history of. - Family history:: not pertinent. - Hospitalizations: : No recent hospitalization is reported. ROS: 10:22 Constitutional: Negative for fever, chills, and weight loss, Eyes: Negative for injury, rn pain, redness, and discharge, ENT: Negative for injury, pain, and discharge, Neck: Negative for injury, pain, and swelling, Cardiovascular: Negative for chest pain, palpitations, and edema, Respiratory: Negative for shortness of breath, cough, wheezing, and pleuritic chest pain, Abdomen/GI: Negative for abdominal pain, nausea, vomiting, diarrhea, and constipation, Back: Negative for injury and pain, : Negative for injury, bleeding, discharge, and swelling, MS/Extremity: Negative for injury and deformity, Skin: Negative for injury, rash, and discoloration, Neuro: Negative for headache, weakness, numbness, tingling, and seizure. Exam: 10:22 Constitutional: This is a well developed, well nourished patient who is awake, alert, rn and in no acute distress. Slow to respond and seems confused Head/Face: Normocephalic, atraumatic. Eyes: Periorbital areas with no swelling, redness, or edema. ENT: dry MM Cardiovascular: irregular rhythm, bradycardic. No pulse deficits. Respiratory: No increased work of breathing, no retractions or nasal flaring. Abdomen/GI: soft, mild lower abd tenderness Skin: Warm, dry MS/ Extremity: Pulses equal, no cyanosis. Neurovascular intact. Full, normal range of motion. Equal circumference. Neuro: Awake, alert, not oriented to place or time, knows name, moves all 4 extremities without drift.Sensation grossly intact. Slurred speech and difficult to understand. Vital Signs: 10:26 BP 171 / 73; Pulse 60; Resp 16; Temp 97.8; Pulse Ox 98% on R/A; Pain 0/10; hb 11:45 BP 163 / 87; Pulse 63; Resp 22; Pulse Ox 100% on R/A; hb 12:30 BP 160 / 90; Pulse 56; Resp 22; Pulse Ox 99% on R/A; hb 13:30 BP 168 / 88; Pulse 56; Resp 17; Pulse Ox 100% on R/A; hb 14:30 BP 145 / 75; Pulse 51; Resp 20; Pulse Ox 100% on R/A; hb 15:30 BP 175 / 79; Pulse 54; Resp 22; Pulse Ox 99% on R/A; hb 16:30 BP 153 / 81; Pulse 63; Resp 19; Pulse Ox 98% on R/A; hb MDM: 10:18 Patient medically screened. rn 11:34 ED course: CT shows possible ischemic CVA, pt outside of window given last known normal rn now 20 hours ago. . 12:44 Differential Diagnosis: CVA, electrolyte abnormality, pneumonia, sepsis, TIA, UTI, rn volume depletion. Data reviewed: vital signs, nurses notes, lab test result(s), EKG, radiologic studies, CT scan, plain films, and as a result, I will admit patient. Counseling: I had a detailed discussion with the patient and/or guardian regarding: the historical points, exam findings, and any diagnostic results supporting the discharge/admit diagnosis, lab results, radiology results, the need for further work-up and treatment in the hospital. Response to treatment: the patient's symptoms have mildly improved after treatment, and as a result, I will admit patient. Admission orders: after a detailed discussion of the patient's condition and case, the admit orders are written by me. ED course: Admitted for Dr. Arteaga for neruo consult for acute and subacute CVA, outside of window, UA neg for UTI.. 03/07 10:20 Order name: Basic Metabolic Panel 03/07 10:20 Order name: CBC with Diff rn 03/07 10:20 Order name: CPK rn 03/07 10:20 Order name: Hepatic Function rn 03/07 10:20 Order name: Magnesium rn 03/07 10:20 Order name: Protime (+inr) rn 03/07 10:20 Order name: Ptt, Activated rn 03/07 10:20 Order name: Troponin (emerg Dept Use Only) rn 03/07 10:20 Order name: Blood Culture Adult (2) rn 03/07 10:20 Order name: Procalcitonin; Complete Time: 12:39 03/07 10:20 Order name: Lactate; Complete Time: 11:31 03/07 10:20 Order name: Urine Culture 03/07 10:20 Order name: Urine Microscopic Only 03/07 10:21 Order name: Basic Metabolic Panel; Complete Time: 11:31 EDOR 03/07 10:20 Order name: CT Head Brain wo Cont; Complete Time: 11:31 03/07 10:20 Order name: CT Abd/Pelvis - IV Contrast Only; Complete Time: 11:53 03/07 10:20 Order name: XRAY Chest (1 view); Complete Time: 11:31 03/07 10:21 Order name: CBC with Automated Diff; Complete Time: 11:31 EDOR 03/07 10:21 Order name: Creatine Phosphokinase; Complete Time: 11: EDOR 03/07 10:21 Order name: Liver (Hepatic) Function; Complete Time: 11:31 EDOR 03/07 10:21 Order name: Magnesium; Complete Time: 11: EDOR 03/07 10:21 Order name: Protime (+INR); Complete Time: 11: EDOR 03/07 10:21 Order name: PTT, Activated Partial Thromb; Complete Time: 11: EDOR 03/07 10:21 Order name: Troponin (Emerg Dept Use Only); Complete Time: 11:31 EDOR 03/07 10:21 Order name: BNP; Complete Time: 11: 03/07 11:36 Order name: CREATININE WHOLE BLOOD; Complete Time: 11:53 EDMS 03/07 12:45 Order name: Urine Dipstick-Ancillary EDOR 03/07 10:20 Order name: EKG; Complete Time: 10: rn 03/07 10:20 Order name: Cardiac monitoring; Complete Time: :59 rn 03/07 10:20 Order name: EKG - Nurse/Tech; Complete Time: 10:59 rn 03/07 10:20 Order name: IV Saline Lock; Complete Time: : rn 03/07 10:20 Order name: Labs collected and sent; Complete Time: : rn 03/07 10:20 Order name: NPO; Complete Time: : rn 03/07 10:20 Order name: O2 Per Protocol; Complete Time: 11:00 rn 03/07 10:20 Order name: O2 Sat Monitoring; Complete Time: 11:00 rn Administered Medications: 10:35 Drug: NS 0.9% 500 ml Route: IV; Rate: bolus; Site: right antecubital; hb 11:05 Follow up: Response: No adverse reaction; IV Status: Completed infusion; IV Intake: hb 500ml 12:55 Drug: Aspirin Chewable Tablet 324 mg Route: PO; hb 13:45 Follow up: Response: No adverse reaction hb 12:55 Drug: foLIC Acid 1 mg Route: IVPB; Site: right antecubital; hb 13:30 Follow up: Response: No adverse reaction; IV Status: Completed infusion; IV Intake: 20mlhb Disposition Summary: 03/07/21 12:45 Hospitalization Ordered Hospitalization Status: Inpatient Admission rn Provider: Dae Arteaga rn Location: Telemetry/[facility] (Inpatient) rn Condition: Stable rn Problem: new rn Symptoms: have improved rn Bed/Room Type: Standard rn Room Assignment: 219(03/07/21 16:43) dw Diagnosis - Altered mental status, unspecified rn - Cerebral infarction, unspecified rn Forms: - Medication Reconciliation Form rn - SBAR form rn Signatures: Dispatcher [facility] Raina Last RN Axel Soto MD MD rn Baxter, Heather RN RN hb Corrections: (The following items were deleted from the chart) 10:39 10:22 Constitutional: This is a well developed, well nourished patient who is awake, rn alert, and in no acute distress. Slow to respond and seems confused Head/Face: Normocephalic, atraumatic. Eyes: Periorbital areas with no swelling, redness, or edema. ENT: dry MM Cardiovascular: Regular rate and rhythm. No pulse deficits. Respiratory: No increased work of breathing, no retractions or nasal flaring. Abdomen/GI: soft, mild lower abd tenderness Skin: Warm, dry MS/ Extremity: Pulses equal, no cyanosis. Neurovascular intact. Full, normal range of motion. Equal circumference. Neuro: Awake, alert, not oriented to place or time, knows name, moves all 4 extremities without drift.Sensation grossly intact. rn 12:45 10:22 Constitutional: This is a well developed, well nourished patient who is awake, rn alert, and in no acute distress. Slow to respond and seems confused Head/Face: Normocephalic, atraumatic. Eyes: Periorbital areas with no swelling, redness, or edema. ENT: dry MM Cardiovascular: irregular rhythm, bradycardic. No pulse deficits. Respiratory: No increased work of breathing, no retractions or nasal flaring. Abdomen/GI: soft, mild lower abd tenderness Skin: Warm, dry MS/ Extremity: Pulses equal, no cyanosis. Neurovascular intact. Full, normal range of motion. Equal circumference. Neuro: Awake, alert, not oriented to place or time, knows name, moves all 4 extremities without drift.Sensation grossly intact. rn 16:43 12:45 rn dw
[2021-03-07 13:56] LABS: Urine Bacteria NONE SEEN /HPF (NONE SEEN); Urine RBC <5 /HPF (NONE SEEN); Urine Urothelial Cells <5 /HPF (NONE SEEN)
--- NOTE | 2021-03-07 15:27 | P.HP ---
Certification for Inpatient Patient admitted to: Inpatient With expected LOS: >2 Midnights Practitioner: I am a practitioner with admitting privileges, knowledge of patient current condition, hospital course, and medical plan of care. Services: Services provided to patient in accordance with Admission requirements found in Title 42 Section 412.3 of the Code of Federal Regulations Patient History Date of Service: 03/07/21 Reason for admission: Garbled speech History of Present Illness: 80-year-old gentleman with a history of chronic atrial fibrillation. Prior multiple TIAs in the past, history of recent hospitalization in December 2020 for suspected stroke was brought to the emergency department due to sudden onset double speech and confusion. According to the patient at baseline has a shuffling gait and ambulate with a walker for only short distances. He was on DOAC which was discontinued and put on aspirin and Plavix, and he was undergoing evaluation for Watchman's procedure. CT head done emergency department demonstrate acute CVA in the left parietal lobe and right cerebellum. Patient is hospitalized for further management. s Allergies No Known Allergies Allergy (Verified 04/16/18 11:53) Home Medications: Metformin HCl 1,000 mg PO BID 05/26/20 Brimonidine Tartrate/Timolol [Combigan 0.2%-0.5% Eye Drops] 1 gtt EACH EYE BID 07/07/20 Insulin Glargine Human [Lantus*] 5 unit SQ BIDP PRN 07/07/20 Sitagliptin Phosphate [Januvia] 50 mg PO DAILY 07/07/20 Travoprost [Travatan Z*] 1 gtt EACH EYE BEDTIME 07/07/20 glipiZIDE [Glipizide] 5 mg PO BID 07/07/20 Folic Acid 1 mg PO DAILY #30 tablet 07/14/20 Magnesium Oxide [Mag 0X*] 400 mg PO DAILY #30 tab 07/14/20 Memantine HCl [Namenda*] 10 mg PO BID tablet 07/14/20 Aspirin [Aspirin EC 81 MG] 162 mg PO DAILY #60 tablet. 08/23/20 Atorvastatin Calcium [Lipitor] 80 mg PO BEDTIME #30 tab 08/23/20 Clopidogrel Bisulfate [Plavix*] 75 mg PO DAILY #30 tablet 08/23/20 Docusate [Colace Cap*] 100 mg PO DAILY #30 cap 08/23/20 Potassium Oral Tab [Klor-Con 10 mEq Tab*] 10 meq PO BID #60 tab 08/23/20 - Past Medical/Surgical History Diabetic: Yes -: Diabetes mellitus type 2 -: Hypertension -: BPH -: Athersclerosis -: Melanoma -: Hyperlipidemia -: Atrial fibrillation on chronic anticoagulation therapy -: mini stroke -: Prostate Surgery -: Hernia Repair -: Open Heart Sx -: Carotid Artery Stent -: 7x stents -: 2x melanoma removal on head Psychosocial/ Personal History: Patient lives at home with his and granddaughter - Social History Alcohol use: No CD- Drugs: No Caffeine use: No Review of Systems Other: Except as documented, all other systems reviewed and negative. Physical Examination - Physical Exam General: In no apparent distress, Confused HEENT: Atraumatic, PERRLA, Mucous membr. moist/pink, EOMI, Sclerae nonicteric Neck: Supple, 2+ carotid pulse no bruit, JVD not distended Respiratory: Clear to auscultation bilaterally, Normal air movement Cardiovascular: No edema, Normal S1 S2, No murmurs, Irregular heart rate/rhythm Gastrointestinal: Normal bowel sounds, Soft and benign, Non-distended, No tenderness Musculoskeletal: No swelling, No tenderness Integumentary: No rashes Neurological: Normal strength at 5/5 x4 extr, Other Lymphatics: No axilla or inguinal lymphadenopathy - Studies Laboratory Data (last 24 hrs) 03/07/21 10:33: PT 13.4 H, INR 1.16, APTT 28.4 03/07/21 10:33: WBC 10.90, Hgb 11.9 L, Hct 35.6 L, Plt Count 211 03/07/21 10:33: Sodium 141, Potassium 4.4, BUN 17, Creatinine 0.91, Glucose 85, Magnesium 1.5 L D, Total Bilirubin 1.2 H, AST 16, ALT 17, Alkaline Phosphatase 91 Assessment and Plan - Problems (Diagnosis) (1) Acute CVA (cerebrovascular accident) Current Visit: No Status: Acute (2) Atrial fibrillation Current Visit: No Status: Acute (3) Benign prostatic hyperplasia Onset Date: 12/31/17 Current Visit: No Status: Acute (4) CAD (coronary artery disease) Onset Date: 12/31/17 Current Visit: No Status: Acute (5) Hyperlipidemia Current Visit: No Status: Acute (6) Type 2 diabetes mellitus Current Visit: Yes Status: Acute - Plan Admit patient to the medical floor. Continue stroke workup with MRI of the brain, echo, MRA of head and neck. Continue aspirin and plavix. Added folic acid. High-dose statin. Speech therapy to evaluate swallow and speech Consulted cardiology and neurology. Permissive hypertension. Insulin sliding scale for glucose management. - Advance Directives Does patient have a Living Will: Yes Does patient have a Durable POA for Healthcare: Yes
[2021-03-07] MEDS: NA CHLORIDE 0.9% 1,000 ML IV SCH (18:01)
--- NOTE | 2021-03-07 18:24 | RAD REPORT ---
EXAM DESCRIPTION: Penelope Single View03/07/2021 5:55 pm CLINICAL HISTORY: CVA COMPARISON: March 07, 2021 FINDINGS: The right lung base is mildly hazy. The remainder lungs appear clear. The heart is mildly to moderately enlarged. Postsurgical changes involve the chest IMPRESSION: Right lung base is mildly hazy which may indicate a mild infiltrate
[2021-03-07] MEDS ORDERED: GLUCAGON 1 MG/VIAL IM PRN (18:28)
[2021-03-07] MEDS ORDERED: D50W 25 GM/50 ML SYRINGE IV PRN (18:28)
[2021-03-07 18:52] VITALS: BMI 24.9
[2021-03-07] MEDS: ATORVASTATIN 80 MG TAB PO SCH (21:00)
[2021-03-07] MEDS ORDERED: INSULIN -REGULAR HUMAN 50 UNIT/0.5 ML ML SQ SCH (21:00)
[2021-03-07] MEDS: HYDRALAZINE HCL 20 MG/ML VIAL IV PRN (21:01)
[2021-03-08] MEDS: NA CHLORIDE 0.9% 1,000 ML IV SCH ×3 (05:09→21:29)
[2021-03-08 05:18] LABS: Absolute Lymphocytes (CBC) 1.9 K/uL (0.7-4.9); Hematocrit 37.1 % (39.6-49.0); Lymphocytes % 15.9 % (15.3-44.8); MPV 9.8 fL (7.6-11.3); RBC Red Blood Cell Count 3.88 M/uL (4.33-5.43)
[2021-03-08 05:33] LABS: BUN Blood Urea Nitrogen 12 mg/dL (7-18); Bicarbonate 27 mmol/L (21-32); Glucose Level 91 mg/dL (74-106); HDL Cholesterol 33 mg/dL (40-60); LDL Cholesterol, Calculated 55 (<130); Magnesium 1.5 mg/dL (1.8-2.4); Phosphorus 2.6 mg/dL (2.5-4.9); Potassium 3.9 mmol/L (3.5-5.1); Sodium Level 140 mmol/L (136-145)
[2021-03-08] MEDS: INSULIN -REGULAR HUMAN 50 UNIT/0.5 ML ML SQ SCH ×5 (06:00→21:00)
--- NOTE | 2021-03-08 08:45 | RAD REPORT ---
EXAM DESCRIPTION: MRI - Brain W/Wo Cont - 03/08/2021 8:28 am CLINICAL HISTORY: Acute CVA COMPARISON: head CT March 07, 2021 TECHNIQUE: Axial, sagittal, and coronal magnetic images of the brain were obtained. 17 cc MultiHance administered intravenously FINDINGS: 9 centimeter area of abnormal signal is present within the left parietal lobe consistent w ith an acute infarct. 3 centimeter area of abnormal signal is present within the right cerebellum having the appearance of subacute infarct. Old right occipital and right frontal lobe infarctions are present. Small old left cerebellar infarct The ventricles are normal caliber. A 4 millimeter area of enhancement left parietal lobe. An extra-axial fluid collection is not noted. Moderate signal within periventricular, deep and subcortical white matter likely ischemic changes sec ondary to small vessel disease Fluid within the sinuses/mastoids is not seen IMPRESSION: A 9 centimeter acute left parietal lobe infarct 3 centimeter subacute right cerebellar infarct 4 millimeter area of enhancement left parietal lobe nonspecific.
--- NOTE | 2021-03-08 08:48 | RAD REPORT ---
EXAM DESCRIPTION: MRI - MRA Neck W/Wo Cont - 03/08/2021 8:28 am CLINICAL HISTORY: Acute CVA COMPARISON: None. TECHNIQUE: Magnetic resonance angiogram of the neck was performed. 19 cc MultiHance was administered intravenously. 3D MIPS reconstruction performed FINDINGS: Mild plaque within the common carotid, internal carotid and external carotid arteries. Portions of the left vertebral artery are not included in the field of view and not evaluated. No sig nificant abnormality of vertebral artery seen. Left vertebral artery is dominant. IMPRESSION: Mild plaque within the carotid arteries NASCET criteria used. Mild 0-49% stenosis Moderate 50-69% stenosis Severe 70-99% stenosis
--- NOTE | 2021-03-08 08:52 | RAD REPORT ---
EXAM DESCRIPTION: MRI - MRA Head Wo Cont - 03/08/2021 8:19 am CLINICAL HISTORY: Acute CVA COMPARISON: 2019 TECHNIQUE: Magnetic resonance angiogram was performed. 3D MIPS reconstruction performed FINDINGS: Areas of chronic narrowing involves right middle cerebral artery. Left middle cerebral art eder appears unremarkable Anterior cerebral, posterior cerebral, distal internal carotid and basilar arteries appear unremarkab le. No acute high-grade stenosis/occlusion An aneurysm is not displayed. IMPRESSION: No acute high-grade stenosis/occlusion seen
[2021-03-08] MEDS ORDERED: POTASSIUM CL SA 10 MEQ TAB PO ONE (09:00)
[2021-03-08] MEDS ORDERED: Magnesium Sulfate 2gm IVPB 2 G/50 ML BAG IV ONE (09:00)
[2021-03-08] MEDS: ENOXAPARIN 40 MG/0.4 ML SQ SCH (09:06)
[2021-03-08] MEDS: HYDRALAZINE HCL 20 MG/ML VIAL IV PRN (09:51)
[2021-03-08] MEDS: FOLIC ACID 1 MG TABLET PO SCH (12:25)
[2021-03-08] MEDS: CLOPIDOGREL 75 MG TABLET PO SCH (12:25)
[2021-03-08] MEDS: ASPIRIN EC 81 MG TAB PO SCH (12:25)
--- NOTE | 2021-03-08 14:37 | P.PN ---
Subjective Date of Service: 03/08/21 Chief Complaint: Garbled speech Patient remained aphasic. Appears to have both expressive and receptive aphasia. Seen by speech therapy and dysphagia diet recommended. Physical Examination - Vital Signs Temperature: 97.2 F Blood Pressure: 182/82 Pulse: 68 Respirations: 18 Pulse Ox (%): 98 - Physical Exam General: In no apparent distress, Other (Awake) HEENT: PERRLA, Mucous membr. moist/pink, EOMI, Sclerae nonicteric Neck: JVD not distended, No Thyromegaly Respiratory: Clear to auscultation bilaterally, Normal air movement Cardiovascular: No edema, Normal S1 S2, Irregular heart rate/rhythm, Systolic murmur Gastrointestinal: Soft and benign, Non-distended, No tenderness Musculoskeletal: No swelling Integumentary: No rashes Neurological: Normal strength at 5/5 x4 extr, Cranial nerves 3-12 intact, Other (Aphasic) Assessment And Plan - Current Problems (Diagnosis) (1) Acute CVA (cerebrovascular accident) Current Visit: No Status: Acute (2) Atrial fibrillation Current Visit: No Status: Acute (3) Benign prostatic hyperplasia Onset Date: 12/31/17 Current Visit: No Status: Acute (4) CAD (coronary artery disease) Onset Date: 12/31/17 Current Visit: No Status: Acute (5) Hyperlipidemia Current Visit: No Status: Acute (6) Type 2 diabetes mellitus Current Visit: Yes Status: Acute - Plan MRI of the brain confirms multiple acute CVA. Source likely embolic, Echo is pending, MRA of head and neck unremarkable except mild carotid artery disease. Continue aspirin and plavix per cardiology and neurology. Continue folic acid. High-dose statin. Speech therapy recommend nectar thickened and pureed diet Permissive hypertension. PT to evaluate. He may be a candidate for inpatient rehab. Insulin sliding scale for glucose management.
--- NOTE | 2021-03-08 16:37 | EKG ---
Test Date: 2021-03-07 Test Time: 10:37:18 Product Craftsman: HB MEASUREMENT RESULTS: Intervals: Rate: 52 OR: QRSD: 106 QT: 436 QTc: 405 [place]: P: OR: QRS: 56 T: -82 INTERPRETIVE STATEMENTS: Atrial fibrillation with slow ventricular response Anterior infarct, age undetermined ST & T wave abnormality, consider inferior ischemia Abnormal ECG Compared to ECG 01/06/2021 11:46:09 Myocardial infarct finding now present ST (T wave) deviation still present Possible ischemia still present Electronically Signed On 03-08-21 16:33:18 CDT by Vernon Oleary
[2021-03-08] MEDS: ATORVASTATIN 80 MG TAB PO SCH (21:30)
--- NOTE | 2021-03-08 22:02 | CON ---
Reason For Consultation: Consultation called because of stroke. History Of Present Illness: Mr. Salinas is an 80-year-old patient with atrial fibrillation, on Xarelt o. His Xarelto was actually stopped as he was preparing for a Watchman procedure. The patient has h ad multiple strokes in the past and had a recent hospitalization in December of this year with a suspect ed stroke. He had double speak and confusion. However, the patient did seem to recover. Now return s with worsening symptoms, more difficulty with gait, balance, coordination, and he is not able to ex press himself properly. He has a brain MRI identified a 9 cm acute left parietal lobe stroke, a 3 cm subacute right cerebellar stroke and a 4 mm area of enhancement in the left parietal lobe. His magn etic resonance angiogram showed no acute high-grade stenosis in the intracerebral vessels. His neck magnetic resonance angiogram showed mild plaque in the carotid arteries. The patient was evaluated b y Speech Therapy. He passed a swallow evaluation but had significant expressive aphasia and difficul ty in following instructions indicating both a receptive aphasia. Past Medical History: Diabetes mellitus, hypertension, benign prostatic hypertrophy, atherosclerosis , melanoma, dyslipidemia, atrial fibrillation, multiple strokes. Surgical History: Prostate surgery, hernia repair, open heart surgery, carotid artery stent procedur e and 7 stents in his arteries, melanoma removal on head. Allergies: NO KNOWN DRUG ALLERGIES. Medications: Metformin 1000 mg twice daily, Combigan 1 drop in each eye twice daily, Lantus 5 units twice daily, Januvia 50 mg daily, Travoprost 1 drop in each eye daily, glipizide 5 mg twice daily, __ 1 mg daily, magnesium oxide 400 mg daily, Namenda 10 mg twice daily, enteric-coated aspirin 162 mg daily, atorvastatin 80 mg at bedtime, Clopidogrel 75 mg daily, Colace 100 mg daily, potassium 10 mEq twice daily. Family History: Noncontributory. Social History: No alcohol, tobacco, or IV drug use. Review of Systems: As indicated above. Physical Examination: Vital Signs: Blood pressure 182/82, pulse 68, respiratory rate 18, temperature 97.2, oxygen saturati on 98%. Weight 169 pounds, height 5 feet 9 inches. General: Mr. Salinas is resting in bed. Very difficult to communicate due to aphasic stroke, After _ instructions, he eventually showed a thumbs up sign, but was unable to do it after repeated encouragement verbally. HEENT: Otherwise, he appears normocephalic, atraumatic. His sclerae are anicteric. Oropharynx is m oist and pink. Neck: Supple. Chest: Clear. Heart: Irregular. Abdomen: Soft. Extremities: Show some bruising. No significant edema or cyanosis. Neurologic: He is alert and he does seem to respond well to his name. He does track and can move hi s arms with little difficulty. Difficult to fully assess his strength as he does not follow instruct ions easily but again was able to show thumbs up sign eventually once it was mimicked repeatedly. He does not appear to have any differences in terms of sensory response one side to the other and diffi cult to fully assess his examination as he has a significant aphasia. He was evaluated by Physical T tatyana. He did ambulate at home previously with a Rollator. However, the physical therapist was not able to. He was actually able to ambulate 95 feet with moderate assistance using a rolling walker w ith repeated cuing and guidance on how to place his steps. He did tend to shuffle when turning to ei ther side. Assessment: Mr. Salinas is an 80-year-old patient with multiple strokes. He has atrial fibrillation. His stroke occurred after he was taken off his Xarelto preparing for a Watchman procedure. He has other multiple stroke risk factors and multiple comorbid conditions. Plan: 1.The patient will be evaluated for his possible admission to the inpatient rehabilitation unit for aggressive physical, occupational, and speech therapy. 2.His medications will be continued. He will have aspirin and Plavix. His telephone service adviser Dr. Oleary is still planning on a Watchman procedure. 3.The patient's comorbid conditions will be addressed aggressively while in the hospital. JUSTIN/SHONNA Voice ID: [id number] Report ID: [id number]
[2021-03-09 06:15] LABS: Absolute Lymphocytes (CBC) 1.4 K/uL (0.7-4.9); Hematocrit 34.8 % (39.6-49.0); MPV 10.4 fL (7.6-11.3); RBC Red Blood Cell Count 3.68 M/uL (4.33-5.43)
[2021-03-09 06:25] LABS: BUN Blood Urea Nitrogen 14 mg/dL (7-18); Bicarbonate 25 mmol/L (21-32); Glucose Level 149 mg/dL (74-106); Magnesium 1.9 mg/dL (1.8-2.4); Potassium 4.1 mmol/L (3.5-5.1); Sodium Level 140 mmol/L (136-145)
[2021-03-09] MEDS: INSULIN -REGULAR HUMAN 50 UNIT/0.5 ML ML SQ SCH ×4 (07:30→21:00)
--- NOTE | 2021-03-09 08:16 | ECHO ---
HEIGHT: 5 ft 9 in WEIGHT: 169 lb 0 oz DATE OF STUDY: 03/08/[address]: karson rosenthal 2-DIMENSIONAL: YES M.MODE: YES DOPPLER: YES COLOR FLOW: YES TDS: NO PORTABLE: NO DEFINITY: NO BUBBLE STUDY: NO DIAGNOSIS: STROKE CARDIAC HISTORY: CATHERIZATION: NO SURGERY: YES PROSTHETIC VALVE: NO PACEMAKER: NO MEASUREMENTS (cm) DIASTOLIC (NORMALS) SYSTOLIC (NORMALS) IVSd 1.3 (0.6-1.2) LA Diam 4.7 (1.9-4.0) LVEF 16% LVIDd 5.7 (3.5-5.7) LVIDs 5.2 (2.0-3.5) %FS 7% LVPWd 1.1 (0.6-1.2) Ao Diam 3.2 (2.0-3.7) 2 DIMENSIONAL ASSESSMENT: RIGHT ATRIUM: NORMAL LEFT ATRIUM: DILATED RIGHT VENTRICLE: NORMAL LEFT VENTRICLE: DILATED TRICUSPID VALVE: NORMAL MITRAL VALVE: NORMAL PULMONIC VALVE: NORMAL AORTIC VALVE: STENOSIS PERICARDIAL EFFUSION: NONE AORTIC ROOT: NORMAL LEFT VENTRICULAR WALL MOTION: SEVERE GLOBAL HYPOKINESIS. DOPPLER/COLOR FLOW: MILD MITRAL AND TRICUPSID REGURGITATION. RIGHT VENTRICULAR SYSTOLIC PRESSURE 50 mmHg. COMMENTS: MILD MITRAL AND TRICUPSID REGURGITATION. RIGHT VENTRICULAR SYSTOLIC PRESSURE 50 mmHg. CONSISTENT WITH PULMONARY HYPERTENSION. LEFT ATRIAL ENLARGEMENT. LEFT VENTRICULAR ENLARGEMENT. SEVERE GLOBAL HYPOKINESIS. LEFT VENTRICULAR EJECTION FRACTION 16%. TECHNOLOGIST: Dhara CHILDS
[2021-03-09] MEDS: HYDRALAZINE HCL 20 MG/ML VIAL IV PRN ×2 (08:54→16:40)
[2021-03-09] MEDS: ENOXAPARIN 40 MG/0.4 ML SQ SCH (08:54)
[2021-03-09] MEDS: CLOPIDOGREL 75 MG TABLET PO SCH (08:54)
[2021-03-09] MEDS: ASPIRIN EC 81 MG TAB PO SCH (08:54)
[2021-03-09] MEDS: FOLIC ACID 1 MG TABLET PO SCH (08:54)
[2021-03-09 13:09] LABS: Urine Appearance CLOUDY (Clear); Urine Bilirubin NEGATIVE (Negative); Urine Blood 1+ (Negative); Urine Color YELLOW (Yellow); Urine Glucose 1+ (Negative); Urine Protein 1+ (Negative); Urine Specific Gravity 1.015 (1.005-1.030)
[2021-03-09 13:11] LABS: Urine Microscopic Reflex ORDER UMIC
[2021-03-09] MEDS: NA CHLORIDE 0.9% 1,000 ML IV SCH ×2 (13:57→22:59)
[2021-03-09 14:00] LABS: Urine Bacteria >50 /HPF (NONE SEEN); Urine Mucus 1+ /HPF (NONE SEEN)
--- NOTE | 2021-03-09 15:02 | P.PN ---
Subjective Date of Service: 03/09/21 Chief Complaint: Garbled speech Patient remain aphasic. He is tolerating diet. He appeared to be in discomfort today. Physical Examination - Vital Signs Temperature: 99.2 F Blood Pressure: 173/78 Pulse: 84 Respirations: 16 Pulse Ox (%): 97 - Physical Exam General: Confused, Other (Awake) HEENT: Mucous membr. moist/pink Neck: JVD not distended Respiratory: Clear to auscultation bilaterally, Normal air movement Cardiovascular: No edema, Normal S1 S2, Irregular heart rate/rhythm Capillary refill: <2 Seconds Gastrointestinal: Normal bowel sounds, Soft and benign, Non-distended Musculoskeletal: No swelling, No tenderness Integumentary: No rashes, Erythema (Mild erythema on the scrotum) Neurological: Other (No focal motor deficit) - Studies Microbiology Data (last 24 hrs): 03/07/21 12:30 Catheterized Urine [place] Count - Final No growth. 03/07/21 12:30 Catheterized Urine - Final No growth. Assessment And Plan - Current Problems (Diagnosis) (1) Acute CVA (cerebrovascular accident) Current Visit: No Status: Acute (2) Atrial fibrillation Current Visit: No Status: Acute (3) Benign prostatic hyperplasia Onset Date: 12/31/17 Current Visit: No Status: Acute (4) CAD (coronary artery disease) Onset Date: 12/31/17 Current Visit: No Status: Acute (5) Hyperlipidemia Current Visit: No Status: Acute (6) Type 2 diabetes mellitus Current Visit: Yes Status: Acute - Plan MRI of the brain confirms multiple acute CVA. Source likely embolic, Echo is pending, MRA of head and neck unremarkable except mild carotid artery disease. Continue aspirin and plavix. Case discussed with cardiology recommended restarting Eliquis. Continue folic acid. High-dose statin. Speech therapy evaluation: No dysphagia. Regular diet consistency recommended. Permissive hypertension. Keep systolic blood pressure between 140-160 Patient tolerating PT. Insulin sliding scale for glucose management. Leukocytosis noted. No aspiration reported. UA suggest the presence of UTI. Treat empirically with IV Rocephin. Follow cultures. Disposition: Inpatient rehab.
[2021-03-09] MEDS ORDERED: QUETIAPINE 25 MG TAB PO PRN (15:06)
[2021-03-09] MEDS ORDERED: POLYETHYL GLY 3350 17 GM/DOSE PO PRN (15:06)
[2021-03-09] MEDS ORDERED: FAMOTIDINE 20 MG TAB PO PRN (15:06)
[2021-03-09] MEDS ORDERED: DOCUSATE NA 100 MG CAP PO PRN (15:06)
[2021-03-09] MEDS: DONEPEZIL HCL 5 MG TAB PO SCH (16:40)
[2021-03-09] MEDS: CEFTRIAXONE/SWI 1gm 1 GM/10 ML SYR IV SCH (17:16)
[2021-03-09] MEDS: BRIMONIDINE TARTRATE OPTH SCH (21:00)
[2021-03-09] MEDS: TIMOLOL OPTH SCH (21:00)
[2021-03-09] MEDS: carvediloL 6.25 MG TAB PO SCH (22:33)
[2021-03-09] MEDS: MEMANTINE HCL 10 MG TABLET PO SCH (22:33)
[2021-03-09] MEDS: ATORVASTATIN 80 MG TAB PO SCH (22:33)
[2021-03-09] MEDS: POTASSIUM CL SA 10 MEQ TAB PO SCH (22:33)
[2021-03-10] MEDS: NA CHLORIDE 0.9% 1,000 ML IV SCH ×3 (00:51→14:50)
[2021-03-10 04:26] LABS: Absolute Lymphocytes (CBC) 1.2 K/uL (0.7-4.9); Basophils % 0.7 % (0-1.3); Hematocrit 31.4 % (39.6-49.0); Lymphocytes % 8.2 % (15.3-44.8); MPV 10.1 fL (7.6-11.3); RBC Red Blood Cell Count 3.31 M/uL (4.33-5.43)
[2021-03-10 04:31] LABS: BUN Blood Urea Nitrogen 12 mg/dL (7-18); Bicarbonate 24 mmol/L (21-32); Glucose Level 133 mg/dL (74-106); Magnesium 1.5 mg/dL (1.8-2.4); Potassium 3.7 mmol/L (3.5-5.1); Sodium Level 139 mmol/L (136-145)
[2021-03-10] MEDS ORDERED: Magnesium Sulfate 2gm IVPB 2 G/50 ML BAG IV ONE (07:06)
[2021-03-10] MEDS: INSULIN -REGULAR HUMAN 50 UNIT/0.5 ML ML SQ SCH ×4 (07:30→21:34)
[2021-03-10] MEDS: BRIMONIDINE TARTRATE OPTH SCH ×2 (09:00→21:00)
[2021-03-10] MEDS ORDERED: FOLIC ACID 1 MG TABLET PO SCH (09:00)
[2021-03-10] MEDS: ENOXAPARIN 40 MG/0.4 ML SQ SCH (09:00)
[2021-03-10] MEDS: TIMOLOL OPTH SCH ×2 (09:00→21:00)
[2021-03-10] MEDS ORDERED: CEFTRIAXONE 1 GM/NS 50 ML 1 GM/50 ML BAG IV SCH (09:00)
[2021-03-10] MEDS ORDERED: TRAVOPROST 0.004% 2.5ML OPTH OPTH SCH (09:00)
[2021-03-10] MEDS: CLOPIDOGREL 75 MG TABLET PO SCH (09:00)
[2021-03-10] MEDS ORDERED: POTASSIUM CL SA 10 MEQ TAB PO ONE (09:00)
[2021-03-10] MEDS: POTASSIUM CL SA 10 MEQ TAB PO SCH ×2 (09:00→21:02)
--- NOTE | 2021-03-10 09:05 | CON ---
Date of Consultation: 03/08/2021 Reason For Consultation: New-onset CVA and history of atrial fibrillation. History Of Present Illness: Mr. Salinas is an 80-year-old white male, very well known to me from offi ce visits and hospital admissions. He is rather very complicated. He has chronic atrial fibrillatio n, but he is not a candidate for anticoagulation because he bleeds on Eliquis, has a history of takin g aspirin and Plavix for that. He also has a history of hypertension, dyslipidemia, diabetes, severe dementia. He came in with a CVA and an MRI showed acute CVA in the left parietal region. He remain ed in atrial fibrillation, rate controlled in the 60s to 80s. Neurology is involved. Echocardiogram is pending. Allergies: NONE. Review of Systems: Negative. Social History: Negative. Family History: Noncontributory. Medications: At home include aspirin, Plavix, Lipitor, insulin, Aricept, Namenda, metformin, and Stanley uvia. Physical Examination: General: He has some expressive aphasia and generalized weakness. Vital Signs: Stable. He was in atrial fibrillation. His rate was in the 70. His blood pressure wa s adequate. HEENT: Negative. Neck: Supple without any bruit, lymphadenopathy, JVD, or thyromegaly. Chest: Clear to auscultation and percussion. Cardiac: Atrial fibrillation. Abdomen: Benign. Extremities: No clubbing, cyanosis, or edema. Diagnostic Data: That were available include the MRI stated earlier. He was in atrial fibrillation with a rate of 60. The rest of the blood work was fairly unremarkable. Impression And Plan: Cerebrovascular accident, acute, most likely secondary to atrial fibrillation. The patient is on aspirin and Plavix at home and we were planning to have him do a Watchman as an ou tpatient, but obviously will have to wait for now since his CVA, he may need to have cardiac rehab. He will still needs a Watchman down the road, but I still think considering the event, I think antico agulate him with Eliquis again and watching his CBC is reasonable if it is okay with Neurology. I ag ree with repeating an echocardiogram to rule out thrombus or to rule out new-onset cardiomyopathy. H is other problems include dyslipidemia, diabetes, dementia, all these are stable at this point. NB/MODL Voice ID: [id number] Report ID: [id number]
[2021-03-10] MEDS ORDERED: HALOPERIDOL LACT 5 MG/ML INJ IV PRN (10:05)
--- NOTE | 2021-03-10 10:20 | PN ---
Date of Progress Note: 03/09/2021 Mr. Salinas has atrial fibrillation, chronic, intolerant to anticoagulant, came in with a CVA in the p arotid region. Echocardiogram, however, that was done on 03/09/2021, revealed an ejection fraction o f 20% to 25%, which is a new onset for him. This is really going to complicate matters. He is sligh tly hypertensive. I will start carvedilol. I would add an CHANDA inhibitor. Continue low-dose Lasix a nd continue his anticoagulation as it is right now. Again, I think he needs to have rehab after the stroke. I think we need to make arrangements for him to have an outpatient Watchman as soon as he re covers from this. Meanwhile, I think I would still anticoagulate him if it is okay by Neurology. KARLA/SHONNA Voice ID: [id number] Report ID: [id number]
[2021-03-10] MEDS: ASCORBIC ACID 500 MG TABLET PO SCH (10:41)
[2021-03-10] MEDS: ASPIRIN EC 81 MG TAB PO SCH (10:42)
[2021-03-10] MEDS: SITAGLIPTIN PHOS 100 MG TAB PO SCH (10:42)
[2021-03-10] MEDS: VITAMIN D 1000 UNIT TAB PO SCH (10:42)
[2021-03-10] MEDS: MEMANTINE HCL 10 MG TABLET PO SCH ×2 (10:42→21:01)
[2021-03-10] MEDS: ZINC SULFATE 220 MG CAP PO SCH (10:42)
[2021-03-10] MEDS: APIXABAN 5 MG TABLET PO SCH ×2 (10:43→21:01)
[2021-03-10] MEDS: FOLIC ACID 1 MG TABLET PO SCH (10:43)
[2021-03-10] MEDS: carvediloL 6.25 MG TAB PO SCH ×2 (10:43→21:01)
--- NOTE | 2021-03-10 11:20 | PN ---
Date of Progress Note: 03/10/2021 Mr. Salinas has been followed for chronic atrial fibrillation and tolerant to anticoagulation, was on aspirin and Plavix and he came in with an acute right parietal CVA, was found to have an ejection fra ction of 20%-25%, which is new onset. He needs to be anticoagulated and needs to be on Coreg, CHANDA in hibitor, Lasix. Continue his other medications. Start working on rehabilitation. Arrange for outpa tient Watchman procedure. He is hemodynamically stable today. Remained in atrial fibrillation at a rate of 80, blood pressure is about 140. He is asymptomatic cardiac-jenkins. KARLA/SHONNA Voice ID: [id number] Report ID: [id number]
--- NOTE | 2021-03-10 14:35 | P.PN ---
Subjective Date of Service: 03/10/21 Chief Complaint: Garbled speech Patient remain aphasic. He is quite confused and restless He appeared to be in discomfort today. UA is growing Gram negative rods. Physical Examination - Vital Signs Temperature: 98.0 F Blood Pressure: 144/65 Pulse: 59 Respirations: 17 Pulse Ox (%): 98 - Physical Exam General: In no apparent distress, Confused HEENT: Mucous membr. moist/pink Neck: JVD not distended Respiratory: Clear to auscultation bilaterally, Normal air movement Cardiovascular: No edema, Regular rate/rhythm, Normal S1 S2 Gastrointestinal: Normal bowel sounds, Soft and benign, Non-distended, No tenderness Neurological: Normal strength at 5/5 x4 extr, Other (Confused.) Assessment And Plan - Current Problems (Diagnosis) (1) Acute CVA (cerebrovascular accident) Current Visit: No Status: Acute (2) Atrial fibrillation Current Visit: No Status: Acute (3) Benign prostatic hyperplasia Onset Date: 12/31/17 Current Visit: No Status: Acute (4) CAD (coronary artery disease) Onset Date: 12/31/17 Current Visit: No Status: Acute (5) Hyperlipidemia Current Visit: No Status: Acute (6) Type 2 diabetes mellitus Current Visit: Yes Status: Acute - Plan MRI of the brain confirms multiple acute CVA. Source likely embolic, Echo is pending, MRA of head and neck unremarkable except mild carotid artery disease. Echo shows EF of 16% with severe global hypokinesia. Case discussed with cardiology recommended restarting Eliquis. Continue folic acid and aspirin. Plavix discontinued. High-dose statin. Speech therapy evaluation: No dysphagia. Regular diet consistency recommended. Permissive hypertension. Keep systolic blood pressure between 140-160 Leukocytosis noted. IV Rocephin for UTI. Follow urine culture Haldol p.r.n. for agitation. Insulin sliding scale for glucose management. PT as tolerated. Disposition: Inpatient rehab.
[2021-03-10] MEDS: CEFTRIAXONE/SWI 1gm 1 GM/10 ML SYR IV SCH (16:31)
[2021-03-10] MEDS: DONEPEZIL HCL 5 MG TAB PO SCH (16:31)
[2021-03-10] MEDS: ATORVASTATIN 80 MG TAB PO SCH (21:01)
[2021-03-11] MEDS: NA CHLORIDE 0.9% 1,000 ML IV SCH ×3 (00:38→16:06)
[2021-03-11 05:03] LABS: Absolute Lymphocytes (CBC) 1.1 K/uL (0.7-4.9); Hematocrit 29.4 % (39.6-49.0); Lymphocytes % 9.2 % (15.3-44.8); MPV 9.7 fL (7.6-11.3); RBC Red Blood Cell Count 3.09 M/uL (4.33-5.43)
[2021-03-11 05:19] LABS: BUN Blood Urea Nitrogen 13 mg/dL (7-18); Bicarbonate 21 mmol/L (21-32); Glucose Level 136 mg/dL (74-106); Potassium 4.1 mmol/L (3.5-5.1); Sodium Level 140 mmol/L (136-145)
[2021-03-11] MEDS: INSULIN -REGULAR HUMAN 50 UNIT/0.5 ML ML SQ SCH ×4 (07:30→21:00)
[2021-03-11 07:42] LABS: Magnesium 1.9 mg/dL (1.8-2.4); Phosphorus 1.9 mg/dL (2.5-4.9)
[2021-03-11] MEDS: TIMOLOL OPTH SCH ×2 (09:00→21:00)
[2021-03-11] MEDS: BRIMONIDINE TARTRATE OPTH SCH ×2 (09:00→21:00)
[2021-03-11] MEDS: SITAGLIPTIN PHOS 100 MG TAB PO SCH (09:11)
[2021-03-11] MEDS: POTASS/SODIUM PHOSPHATE 1 PKT POWD.PACK PO SCH ×3 (09:11→11:32)
[2021-03-11] MEDS: VITAMIN D 1000 UNIT TAB PO SCH (09:12)
[2021-03-11] MEDS: FOLIC ACID 1 MG TABLET PO SCH (09:12)
[2021-03-11] MEDS: carvediloL 6.25 MG TAB PO SCH ×2 (09:12→21:11)
[2021-03-11] MEDS: ASPIRIN EC 81 MG TAB PO SCH (09:12)
[2021-03-11] MEDS: APIXABAN 5 MG TABLET PO SCH ×2 (09:12→21:16)
[2021-03-11] MEDS: ZINC SULFATE 220 MG CAP PO SCH (09:12)
[2021-03-11] MEDS: ASCORBIC ACID 500 MG TABLET PO SCH (09:12)
[2021-03-11] MEDS: MEMANTINE HCL 10 MG TABLET PO SCH ×2 (09:12→21:11)
[2021-03-11] MEDS: POTASSIUM CL SA 10 MEQ TAB PO SCH ×2 (09:13→21:11)
[2021-03-11] MEDS: TRAVOPROST 0.004% 2.5ML OPTH OPTH SCH (09:13)
--- NOTE | 2021-03-11 11:12 | PN ---
Date of Progress Note: 03/11/2021 History Of Present Illness: Mr. Salinas has multiple medical problems including chronic atrial fibril lation, intolerant to anticoagulants. Has a Watchman procedure scheduled on the m [facility] that we will hope he will be ready to have by then, came in with a significant CVA. Meanwhile, he had gotten confused, is found to have UTI. Case was discussed with Dr. Arteaga. I do not have muc h to add to his regimen at this point. I will continue to follow him on an as-needed basis. I agree with his present regimen. KARLA/SHONNA Voice ID: [id number] Report ID: [id number]
--- NOTE | 2021-03-11 12:12 | P.PN ---
Subjective Date of Service: 03/11/21 Chief Complaint: Garbled speech Patient's speech is better by he is confused He is not as restless compared to yesterday Physical Examination - Vital Signs Temperature: 97.5 F Blood Pressure: 131/59 Pulse: 90 Respirations: 18 Pulse Ox (%): 96 - Physical Exam General: In no apparent distress, Confused, Other (Awake) HEENT: PERRLA, Mucous membr. moist/pink, EOMI, Sclerae nonicteric Neck: JVD not distended Respiratory: Clear to auscultation bilaterally, Normal air movement Cardiovascular: No edema, Regular rate/rhythm, Normal S1 S2 Gastrointestinal: Normal bowel sounds, Soft and benign, Non-distended, No tenderness Musculoskeletal: No swelling Integumentary: No rashes Neurological: Normal strength at 5/5 x4 extr, Cranial nerves 3-12 intact Assessment And Plan - Current Problems (Diagnosis) (1) Acute CVA (cerebrovascular accident) Current Visit: No Status: Acute (2) Atrial fibrillation Current Visit: No Status: Acute (3) Benign prostatic hyperplasia Onset Date: 12/31/17 Current Visit: No Status: Acute (4) CAD (coronary artery disease) Onset Date: 12/31/17 Current Visit: No Status: Acute (5) Hyperlipidemia Current Visit: No Status: Acute (6) Type 2 diabetes mellitus Current Visit: Yes Status: Acute - Plan MRI of the brain confirms multiple acute CVA. Source likely embolic, Echo is pending, MRA of head and neck unremarkable except mild carotid artery disease. Echo shows EF of 16% with severe global hypokinesia. Patient scheduled for Watchman's procedure on the 22 of March. This may be possible during rehab. Continue Eliquis, folic acid and aspirin. Plavix discontinued. High-dose statin. Speech therapy evaluation: No dysphagia. Regular diet consistency recommended. Permissive hypertension. Keep systolic blood pressure between 140-160 Leukocytosis improving. Urine culture is growing Klebsiella oxytoca sensitive to cephalosporin. IV Rocephin for UTI. Haldol p.r.n. for agitation. Insulin sliding scale for glucose management. PT as tolerated. Disposition: Inpatient rehab.
[2021-03-11] MEDS: DONEPEZIL HCL 5 MG TAB PO SCH (16:04)
[2021-03-11] MEDS: CEFTRIAXONE/SWI 1gm 1 GM/10 ML SYR IV SCH (16:04)
[2021-03-11] MEDS: ATORVASTATIN 80 MG TAB PO SCH (21:16)
[2021-03-12 05:55] LABS: Magnesium 1.7 mg/dL (1.8-2.4); Phosphorus 2.2 mg/dL (2.5-4.9)
[2021-03-12] MEDS: NA CHLORIDE 0.9% 1,000 ML IV SCH (06:34)
[2021-03-12] MEDS: INSULIN -REGULAR HUMAN 50 UNIT/0.5 ML ML SQ SCH ×4 (07:30→21:18)
[2021-03-12] MEDS: BRIMONIDINE TARTRATE OPTH SCH ×2 (09:00→21:00)
[2021-03-12] MEDS: TIMOLOL OPTH SCH ×2 (09:00→21:00)
[2021-03-12] MEDS: VITAMIN D 1000 UNIT TAB PO SCH (12:12)
[2021-03-12] MEDS: FOLIC ACID 1 MG TABLET PO SCH (12:12)
[2021-03-12] MEDS: ASPIRIN EC 81 MG TAB PO SCH (12:12)
[2021-03-12] MEDS: APIXABAN 5 MG TABLET PO SCH ×2 (12:13→21:24)
[2021-03-12] MEDS: MEMANTINE HCL 10 MG TABLET PO SCH ×2 (12:13→21:15)
[2021-03-12] MEDS: ZINC SULFATE 220 MG CAP PO SCH (12:13)
[2021-03-12] MEDS: ASCORBIC ACID 500 MG TABLET PO SCH (12:13)
[2021-03-12] MEDS: carvediloL 6.25 MG TAB PO SCH ×2 (12:13→21:17)
[2021-03-12] MEDS: POTASSIUM CL SA 10 MEQ TAB PO SCH ×2 (12:13→21:14)
[2021-03-12] MEDS: SITAGLIPTIN PHOS 100 MG TAB PO SCH (12:23)
[2021-03-12] MEDS: TRAVOPROST 0.004% 2.5ML OPTH OPTH SCH (12:24)
--- NOTE | 2021-03-12 13:52 | P.PN ---
Subjective Date of Service: 03/12/21 Chief Complaint: Garbled speech Patient's speech is better by he remain confused Spouse states patient has been eating and has been in and out of confusion. Physical Examination - Vital Signs Temperature: 97.8 F Blood Pressure: 177/82 Pulse: 85 Respirations: 18 Pulse Ox (%): 98 - Physical Exam General: In no apparent distress, Confused HEENT: PERRLA, Mucous membr. moist/pink Respiratory: Clear to auscultation bilaterally, Normal air movement Cardiovascular: No edema, Normal S1 S2, Irregular heart rate/rhythm Gastrointestinal: Normal bowel sounds, Soft and benign, Non-distended, No tenderness Musculoskeletal: No swelling Integumentary: No rashes Neurological: Other (No focal motor deficits) - Studies Microbiology Data (last 24 hrs): 03/07/21 10:53 Blood - Blood Aerobic Blood Culture - Final No growth in 5 days. 03/07/21 10:53 Blood - Blood Anaerobic Blood Culture - Final No growth in 5 days. 03/07/21 10:33 Blood - Blood Aerobic Blood Culture - Final No growth in 5 days. 03/07/21 10:33 Blood - Blood Anaerobic Blood Culture - Final No growth in 5 days. Assessment And Plan - Current Problems (Diagnosis) (1) Acute CVA (cerebrovascular accident) Current Visit: No Status: Acute (2) Atrial fibrillation Current Visit: No Status: Acute (3) Benign prostatic hyperplasia Onset Date: 12/31/17 Current Visit: No Status: Acute (4) CAD (coronary artery disease) Onset Date: 12/31/17 Current Visit: No Status: Acute (5) Hyperlipidemia Current Visit: No Status: Acute (6) Type 2 diabetes mellitus Current Visit: Yes Status: Acute - Plan MRI of the brain confirms multiple acute CVA. Source likely embolic, Echo is pending, MRA of head and neck unremarkable except mild carotid artery disease. Echo shows EF of 16% with severe global hypokinesia. Patient scheduled for Watchman's procedure on the 22 of March. This may be possible during rehab. Continue Eliquis, folic acid and aspirin. Plavix discontinued. High-dose statin. Speech therapy evaluation: No dysphagia. Regular diet consistency recommended. Control blood pressure Leukocytosis improving. Urine culture is growing Klebsiella oxytoca sensitive to cephalosporin. IV Rocephin for UTI. Patient to complete 5 days of treatment. Haldol p.r.n. for agitation. Insulin sliding scale for glucose management. PT as tolerated. Disposition: Inpatient rehab.
[2021-03-12] MEDS: DONEPEZIL HCL 5 MG TAB PO SCH (17:00)
[2021-03-12] MEDS: CEFTRIAXONE/SWI 1gm 1 GM/10 ML SYR IV SCH (17:00)
[2021-03-12] MEDS: ATORVASTATIN 80 MG TAB PO SCH (21:17)
[2021-03-13] MEDS: NA CHLORIDE 0.9% 1,000 ML IV SCH ×2 (05:38→06:59)
[2021-03-13] MEDS: INSULIN -REGULAR HUMAN 50 UNIT/0.5 ML ML SQ SCH ×4 (07:30→20:49)
[2021-03-13] MEDS: APIXABAN 5 MG TABLET PO SCH ×2 (08:44→20:53)
[2021-03-13] MEDS: ASCORBIC ACID 500 MG TABLET PO SCH (08:44)
[2021-03-13] MEDS: MEMANTINE HCL 10 MG TABLET PO SCH ×2 (08:44→20:53)
[2021-03-13] MEDS: VITAMIN D 1000 UNIT TAB PO SCH (08:45)
[2021-03-13] MEDS: POTASSIUM CL SA 10 MEQ TAB PO SCH ×2 (08:45→20:52)
[2021-03-13] MEDS: SITAGLIPTIN PHOS 100 MG TAB PO SCH (08:45)
[2021-03-13] MEDS: carvediloL 6.25 MG TAB PO SCH ×2 (08:45→20:53)
[2021-03-13] MEDS: ZINC SULFATE 220 MG CAP PO SCH (08:45)
[2021-03-13] MEDS: FOLIC ACID 1 MG TABLET PO SCH (08:45)
[2021-03-13] MEDS: TRAVOPROST 0.004% 2.5ML OPTH OPTH SCH (08:46)
[2021-03-13] MEDS: ASPIRIN EC 81 MG TAB PO SCH (08:46)
[2021-03-13] MEDS: BRIMONIDINE TARTRATE OPTH SCH ×2 (08:47→20:53)
[2021-03-13] MEDS: TIMOLOL OPTH SCH ×2 (08:47→20:53)
[2021-03-13 09:50] LABS: BUN Blood Urea Nitrogen 12 mg/dL (7-18); Bicarbonate 25 mmol/L (21-32); Glucose Level 174 mg/dL (74-106); Magnesium 1.6 mg/dL (1.8-2.4); Phosphorus 2.2 mg/dL (2.5-4.9); Potassium 3.9 mmol/L (3.5-5.1); Sodium Level 140 mmol/L (136-145)
--- NOTE | 2021-03-13 15:00 | P.PN ---
Subjective Date of Service: 03/13/21 Chief Complaint: Garbled speech Patient's speech is better. He is more cooperative today. Physical Examination - Vital Signs Temperature: 98.2 F Blood Pressure: 151/81 Pulse: 55 Respirations: 18 Pulse Ox (%): 95 - Physical Exam General: In no apparent distress, Oriented x3 HEENT: Mucous membr. moist/pink Neck: JVD not distended Respiratory: Clear to auscultation bilaterally, Normal air movement Cardiovascular: Normal S1 S2, Irregular heart rate/rhythm Gastrointestinal: Soft and benign, Non-distended, No tenderness Musculoskeletal: No swelling Integumentary: No rashes Neurological: Normal strength at 5/5 x4 extr - Studies Microbiology Data (last 24 hrs): 03/07/21 10:53 Blood - Blood Aerobic Blood Culture - Final No growth in 5 days. 03/07/21 10:53 Blood - Blood Anaerobic Blood Culture - Final No growth in 5 days. 03/07/21 10:33 Blood - Blood Aerobic Blood Culture - Final No growth in 5 days. 03/07/21 10:33 Blood - Blood Anaerobic Blood Culture - Final No growth in 5 days. Assessment And Plan - Current Problems (Diagnosis) (1) Acute CVA (cerebrovascular accident) Current Visit: No Status: Acute (2) Atrial fibrillation Current Visit: No Status: Acute (3) Benign prostatic hyperplasia Onset Date: 12/31/17 Current Visit: No Status: Acute (4) CAD (coronary artery disease) Onset Date: 12/31/17 Current Visit: No Status: Acute (5) Hyperlipidemia Current Visit: No Status: Acute (6) Type 2 diabetes mellitus Current Visit: Yes Status: Acute - Plan MRI of the brain confirms multiple acute CVA. Source likely embolic, MRA of head and neck unremarkable except mild carotid artery disease. Echo shows EF of 16% with severe global hypokinesia and pulmonary hypertension. Patient scheduled for Watchman's procedure on the 22 of March. This may be possible during rehab. Continue Eliquis, folic acid and aspirin. Plavix discontinued. High-dose statin. Speech therapy evaluation: No dysphagia. Regular diet consistency recommended. Control blood pressure Leukocytosis trended down. Urine culture is growing Klebsiella oxytoca sensitive to cephalosporin. IV Rocephin for UTI. Patient to complete 5 days of treatment. Should complete antibiotics tomorrow. Haldol p.r.n. for agitation. Insulin sliding scale for glucose management. PT as tolerated. Disposition: Inpatient rehab.
[2021-03-13] MEDS: DONEPEZIL HCL 5 MG TAB PO SCH (16:40)
[2021-03-13] MEDS: CEFTRIAXONE/SWI 1gm 1 GM/10 ML SYR IV SCH (16:40)
[2021-03-13] MEDS: ATORVASTATIN 80 MG TAB PO SCH (20:52)
[2021-03-14 07:08] LABS: Magnesium 1.7 mg/dL (1.8-2.4); Phosphorus 2.7 mg/dL (2.5-4.9); Potassium 3.6 mmol/L (3.5-5.1)
[2021-03-14] MEDS ORDERED: MAGNESIUM SULFATE 1 gm IVPB 1 GM/100 ML BAG IV ONE (08:00)
[2021-03-14] MEDS ORDERED: POTASSIUM 25 MEQ EFFERV TAB PO ONE (08:00)
[2021-03-14] MEDS: TIMOLOL OPTH SCH ×3 (09:00→20:39)
[2021-03-14] MEDS: BRIMONIDINE TARTRATE OPTH SCH ×3 (09:00→20:39)
[2021-03-14] MEDS: VITAMIN D 1000 UNIT TAB PO SCH (09:17)
[2021-03-14] MEDS: carvediloL 6.25 MG TAB PO SCH ×2 (09:17→20:36)
[2021-03-14] MEDS: TRAVOPROST 0.004% 2.5ML OPTH OPTH SCH (09:17)
[2021-03-14] MEDS: APIXABAN 5 MG TABLET PO SCH ×2 (09:17→20:37)
[2021-03-14] MEDS: SITAGLIPTIN PHOS 100 MG TAB PO SCH (09:18)
[2021-03-14] MEDS: ZINC SULFATE 220 MG CAP PO SCH (09:18)
[2021-03-14] MEDS: ASPIRIN EC 81 MG TAB PO SCH (09:18)
[2021-03-14] MEDS: MEMANTINE HCL 10 MG TABLET PO SCH ×2 (09:18→20:37)
[2021-03-14] MEDS: ASCORBIC ACID 500 MG TABLET PO SCH (09:18)
[2021-03-14] MEDS: FOLIC ACID 1 MG TABLET PO SCH (09:18)
[2021-03-14] MEDS: POTASSIUM CL SA 10 MEQ TAB PO SCH ×2 (09:18→20:36)
[2021-03-14] MEDS: INSULIN -REGULAR HUMAN 50 UNIT/0.5 ML ML SQ SCH ×4 (09:19→21:35)
[2021-03-14] MEDS: DORZOLAMIDE 2% OPTH SCH ×2 (12:24→20:38)
[2021-03-14] MEDS: OPTH OPTH SCH ×2 (12:24→20:38)
--- NOTE | 2021-03-14 15:49 | P.PN ---
Subjective Date of Service: 03/14/21 Chief Complaint: Garbled speech Subjective: No new changes (no significant new changes, doing ok, without complaints, +confusion) Review of Systems 10-point ROS is otherwise unremarkable Physical Examination - Vital Signs Temperature: 97.4 F Blood Pressure: 119/55 Pulse: 55 Respirations: 20 Pulse Ox (%): 96 Assessment & Plan Physician Review Additional Text: Physical Exam General: NAD, AAOx2 HEENT: Mucous membr. moist/pink, normal conjunctiva Respiratory: Clear to auscultation bilaterally, Normal air movement Cardiovascular: Normal S1 S2, Irregular heart rate/rhythm Gastrointestinal: Soft, Non-distended, No tenderness Musculoskeletal: No swelling Integumentary: No rashes Problem List acute CVA Afib, chronic BPH CAD s/p stents hld DM2, insulin dependent MRI of the brain confirms multiple acute CVA. Source likely embolic, MRA of head and neck unremarkable except mild carotid artery disease. Echo:EF: 16% with severe global hypokinesia and pulmonary hypertension. Patient scheduled for Watchman's procedure on the 22 of March. This may be possible during rehab. is asking if this is still scheduled / will be performed as she heard physician may be out of town Continue Eliquis, folic acid and aspirin. Plavix discontinued. High-dose statin. Speech therapy evaluation: No dysphagia. Regular diet consistency recommended. Leukocytosis trended down. Urine culture is growing Klebsiella oxytoca sensitive to cephalosporin. completed 5 days of treatment Haldol p.r.n. for agitation. Insulin sliding scale for glucose management. PT as tolerated. awaiting insurance approval for inpatient rehab Dispo: dc to inpatient rehab once insurance approval obtained Time Spent Managing Pts Care (In Minutes): 45
[2021-03-14] MEDS: DONEPEZIL HCL 5 MG TAB PO SCH (16:41)
[2021-03-14] MEDS ORDERED: D50W 25 GM/50 ML VIAL IV PRN (17:00)
[2021-03-14] MEDS: ATORVASTATIN 80 MG TAB PO SCH (20:36)
[2021-03-15] MEDS: HYDRALAZINE HCL 20 MG/ML VIAL IV PRN (05:16)
[2021-03-15 05:23] VITALS: TEMP 97.8
[2021-03-15 05:57] LABS: Absolute Lymphocytes (CBC) 1.4 K/uL (0.7-4.9); Basophils % 1.7 % (0-1.3); Hematocrit 27.9 % (39.6-49.0); Lymphocytes % 15.1 % (15.3-44.8); MPV 9.5 fL (7.6-11.3); RBC Red Blood Cell Count 2.96 M/uL (4.33-5.43)
[2021-03-15 06:06] LABS: BUN Blood Urea Nitrogen 12 mg/dL (7-18); Bicarbonate 26 mmol/L (21-32); Glucose Level 149 mg/dL (74-106); Magnesium 1.8 mg/dL (1.8-2.4); Potassium 3.6 mmol/L (3.5-5.1); Sodium Level 142 mmol/L (136-145)
[2021-03-15] MEDS: INSULIN -REGULAR HUMAN 50 UNIT/0.5 ML ML SQ SCH (07:30)
[2021-03-15] MEDS ORDERED: POTASSIUM CL SA 10 MEQ TAB PO ONE (08:00)
[2021-03-15] MEDS ORDERED: MAGNESIUM SULFATE 1 gm IVPB 1 GM/100 ML BAG IV ONE (09:00)
[2021-03-15] MEDS: POTASSIUM CL SA 10 MEQ TAB PO SCH (09:08)
[2021-03-15] MEDS: SITAGLIPTIN PHOS 100 MG TAB PO SCH (09:08)
[2021-03-15] MEDS: ZINC SULFATE 220 MG CAP PO SCH (09:09)
[2021-03-15] MEDS: APIXABAN 5 MG TABLET PO SCH (09:09)
[2021-03-15] MEDS: carvediloL 6.25 MG TAB PO SCH (09:09)
[2021-03-15] MEDS: ASCORBIC ACID 500 MG TABLET PO SCH (09:09)
[2021-03-15] MEDS: FOLIC ACID 1 MG TABLET PO SCH (09:09)
[2021-03-15] MEDS: MEMANTINE HCL 10 MG TABLET PO SCH (09:09)
[2021-03-15] MEDS: VITAMIN D 1000 UNIT TAB PO SCH (09:09)
[2021-03-15] MEDS: BRIMONIDINE TARTRATE OPTH SCH (09:10)
[2021-03-15] MEDS: TIMOLOL OPTH SCH (09:10)
[2021-03-15] MEDS: DORZOLAMIDE 2% OPTH SCH (09:11)
[2021-03-15] MEDS: OPTH OPTH SCH (09:11)
[2021-03-15] MEDS: TRAVOPROST 0.004% 2.5ML OPTH OPTH SCH (09:12)
[2021-03-15 09:13] VITALS: BP 144/80
--- NOTE | 2021-03-15 09:37 | P.DS ---
Admission Date: 03/07/21 Discharge Date: 03/15/21 Disposition: TRANSFER TO INPATIENT REHAB Discharge Condition: GOOD Reason for Admission: CVA Consultations: Cardiology - Dr. Oleary Neurology - Dr. Rodríguez Procedures: CXR (03/07): Chronic interstitial opacification similar to comparison. Mild cardiomegaly similar to comparison. No new or progressive finding since prior examination. A mild failure or volume overload is still a consideration. CT Abd/pelvis (03/07): FINDINGS: Prominent cardiomegaly similar to comparison. No pericardial thickening or effusion. No acute lung parenchymal finding. A 3.8 centimeter sized focus of dense parenchyma noted in the posterior gutter on the left. This is diminished slightly in size from comparison. Scarring or chronic atelectasis is most likely. Malignant mass lesion is not suspected given the interval reduction in size. Liver is prominent in size but unchanged. No focal liver lesion identified. No pancreatic or peripancreatic abnormality. No splenic abnormality seen. Gallbladder and biliary tree are also without suspicious finding. Gallstones can be occult on CT imaging. No hydronephrosis or obstructing calculi seen. Nonobstructing calculi are present in the lower pole of the right kidney and upper pole of the left kidney. Bilateral renal cysts are present. Renal parenchymal enhancement is more heterogeneous. Some of this is due to artifact from the patient's arms being along his side. This causes a streak artifact across the kidneys. Pyelonephritis is still concerning and needs correlation with clinical and laboratory findings. Partially filled urinary bladder shows slight wall thickening. There are surgical clips present along the lower anterior abdominal wall near the pubic symphysis. Urinary bladder may be adhered or tethered to the anterior abdominal wall. No adrenal abnormalities. Prostate gland is enlarged. No stomach or small bowel abnormality. Moderate stool volume is present throughout the colon. Larger stool volume distends the rectum to 6 cm. Sigmoid diverticulosis present without diverticulitis. Soft tissues are mildly prominent at the anus. CT imaging is limited in assessment in this region. No free air, free fluid or inflammatory stranding. No mass or bulky lymphadenopathy. Advanced bony degenerative change. No pathologic bone process seen. IMPRESSION: Kidneys show a heterogeneous enhancement pattern some of which is due to the streak artifact from the patient's arms. Findings are still concerning for possible bilateral pyelonephritis and correlation is needed with any supporting clinical history or laboratory abnormality. Moderate stool volume throughout the colon. No acute GI process confirmed. Postsurgical changes to the lower anterior abdominal wall with adhered or tethered urinary bladder. This matches comparison. CT Head (03/07): FINDINGS: No intracranial hemorrhage. No mass effect, edema or shift of midline structures. Patient has moderate severity atrophy as a baseline with ventricles in proportion. Advanced chronic ischemic changes are present throughout the cerebral white matter and extending into the basal ganglia similar to comparison. Dense arterial tree calcifications are present. In the left parietal lobe there is decreased visualization of the sulci and loss of the burroughs matter- white matter differentiation. A 2.5 centimeter area of diminished attenuation is present in the posteromedial right cerebellum new from the December study. Vertebrobasilar tortuosity present. Mastoid air cells are partially opacified. No acute paranasal sinus finding. No acute bony findings. 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 Posterior medial right cerebellum CVA possibly subacute in age. CXR (03/07): Right lung base is mildly hazy which may indicate a mild infiltrate MRI Brain (03/08): FINDINGS: 9 centimeter area of abnormal signal is present within the left parietal lobe consistent with an acute infarct. 3 centimeter area of abnormal signal is present within the right cerebellum having the appearance of subacute infarct. Old right occipital and right frontal lobe infarctions are present. Small old left cerebellar infarct The ventricles are normal caliber. A 4 millimeter area of enhancement left parietal lobe. An extra-axial fluid collection is not noted. Moderate signal within periventricular, deep and subcortical white matter likely ischemic changes secondary to small vessel disease Fluid within the sinuses/mastoids is not seen IMPRESSION: A 9 centimeter acute left parietal lobe infarct 3 centimeter subacute right cerebellar infarct 4 millimeter area of enhancement left parietal lobe nonspecific. MRA Brain (03/08): FINDINGS: Areas of chronic narrowing involves right middle cerebral artery. Left middle cerebral artery appears unremarkable Anterior cerebral, posterior cerebral, distal internal carotid and basilar arteries appear unremarkable. No acute high-grade stenosis/occlusion An aneurysm is not displayed. IMPRESSION: No acute high-grade stenosis/occlusion seen MRA Neck (03/08): FINDINGS: Mild plaque within the common carotid, internal carotid and external carotid arteries. Portions of the left vertebral artery are not included in the field of view and not evaluated. No significant abnormality of vertebral artery seen. Left vertebral artery is dominant. IMPRESSION: Mild plaque within the carotid arteries TTE (03/08): MILD MITRAL AND TRICUPSID REGURGITATION. RIGHT VENTRICULAR SYSTOLIC PRESSURE 50 mmHg. CONSISTENT WITH PULMONARY HYPERTENSION. LEFT ATRIAL ENLARGEMENT. LEFT VENTRICULAR ENLARGEMENT. SEVERE GLOBAL HYPOKINESIS. LEFT VENTRICULAR EJECTION FRACTION 16%. Problem List Acute CVA Afib, chronic BPH CAD s/p stents HLD DM2, insulin dependent Advanced dementia UTI, acute cystitis Brief History of Present Illness: 80-year-old gentleman with a history of chronic atrial fibrillation. Prior multiple TIAs in the past, history of recent hospitalization in December 2020 for suspected stroke was brought to the emergency department due to sudden onset double speech and confusion. According to the patient at baseline has a shuffling gait and ambulate with a walker for only short distances. He was on DOAC which was discontinued and put on aspirin and Plavix, and he was undergoing evaluation for Watchman's procedure. CT head done emergency department demonstrate acute CVA in the left parietal lobe and right cerebellum. Patient is hospitalized for further management. Hospital Course: MRI consistent with acute CVA. Source likely emoblic. MRA head/neck unremarkable except mild carotid artery disease. Echo with 16% EF with severe global hypokinesis and pulmonary hypertension. Cardiology was consulted. Recommended transition from aspirin/plavix to eliquis. Patient also found to have UTI due to klebsiella oxytocia and completed 5 days of rocephin. He had some improvement in his symptoms. He was evaluated by PT/OT and recommended for inpatient rehab. He was transferred to continue aggressive physical therapy. Patient will need to f/u with cardiology after discharge from inpatient rehab to schedule Watchman's procedure. Vital Signs/Physical Exam: Physical Exam General: NAD, AAOx1 HEENT: Mucous membr. moist/pink, normal conjunctiva Respiratory: Clear to auscultation bilaterally, Normal air movement Cardiovascular: Normal S1 S2, Irregular heart rate/rhythm Gastrointestinal: Soft, Non-distended, No tenderness Musculoskeletal: No swelling Integumentary: No rashes Temp Pulse Resp BP Pulse Ox 97.8 F 76 16 144/80 H 93 03/15/21 04:00 03/15/21 09:09 03/15/21 04:00 03/15/21 09:09 03/15/21 06:03 Laboratory Data at Discharge: WBC 9.20 K/uL (4.3-10.9) D 03/15/21 05:40 Hgb 9.6 g/dL (13.6-17.9) L 03/15/21 05:40 Hct 27.9 % (39.6-49.0) L 03/15/21 05:40 Plt Count 253 K/uL (152-406) D 03/15/21 05:40 PT 13.4 SECONDS (9.5-12.5) H 03/07/21 10:33 INR 1.16 03/07/21 10:33 APTT 28.4 SECONDS (24.3-36.9) 03/07/21 10:33 Sodium 142 mmol/L (136-145) 03/15/21 05:40 Potassium 3.6 mmol/L (3.5-5.1) 03/15/21 05:40 BUN 12 mg/dL (7-18) 03/15/21 05:40 Creatinine 0.81 mg/dL (0.55-1.3) 03/15/21 05:40 Glucose 149 mg/dL (74-106) H 03/15/21 05:40 Phosphorus 2.7 mg/dL (2.5-4.9) 03/14/21 06:40 Magnesium 1.8 mg/dL (1.8-2.4) 03/15/21 05:40 Total Bilirubin 1.2 mg/dL (0.2-1.0) H 03/07/21 10:33 AST 16 U/L (15-37) 03/07/21 10:33 ALT 17 U/L (12-78) 03/07/21 10:33 Alkaline Phosphatase 91 U/L (45-117) 03/07/21 10:33 Triglycerides 113 mg/dL (<150) 03/08/21 05:03 Cholesterol 111 mg/dL (<200) 03/08/21 05:03 HDL Cholesterol 33 mg/dL (40-60) L 03/08/21 05:03 Cholesterol/HDL Ratio 3.36 03/08/21 05:03 Home Medications: Metformin HCl 1,000 mg PO BID 05/26/20 Brimonidine Tartrate/Timolol [Combigan 0.2%-0.5% Eye Drops] 1 gtt EACH EYE BID 07/07/20 Sitagliptin Phosphate [Januvia] 50 mg PO DAILY 07/07/20 Travoprost [Travatan Z*] 1 gtt EACH EYE DAILY 07/07/20 glipiZIDE [Glipizide] 5 mg PO BID 07/07/20 Folic Acid 1 mg PO DAILY #30 tablet 07/14/20 Magnesium Oxide [Mag 0X*] 400 mg PO DAILY #30 tab 07/14/20 Memantine HCl [Namenda*] 10 mg PO BID tablet 07/14/20 Potassium Oral Tab [Klor-Con 10 mEq Tab*] 10 meq PO BID #60 tab 08/23/20 Ascorbate Calcium [Vitamin C] 2 tab PO DAILY 03/07/21 Cholecalciferol (Vitamin D3) [Vitamin D3] 1 cap PO DAILY 03/07/21 Docusate [Colace Cap*] 100 mg PO DAILYPRN PRN 03/07/21 Donepezil [Aricept*] 1 tab PO DAILY 03/07/21 Famotidine [Pepcid] 1 tab PO DAILYPRN PRN 03/07/21 Polyethylene Glycol 3350 [Miralax] 17 gm PO DAILYPRN PRN 03/07/21 Quetiapine [Seroquel*] 1 tab PO BIDP PRN 03/07/21 Zinc 1 tab PO DAILY 03/07/21 carvediloL [Carvedilol] 1 tab PO BID 03/07/21 Dorzolamide HCl/Pf [Dorzolamide 2% Eye Drop] 1 drop OP BID 03/14/21 Apixaban [Eliquis] 5 mg PO BID 30 Days #60 tablet 03/15/21 Atorvastatin Calcium [Lipitor] 80 mg PO BEDTIME 30 Days #30 tab 03/15/21 New Medications: Apixaban [Eliquis] 5 mg PO BID 30 Days #60 tablet Atorvastatin Calcium [Lipitor] 80 mg PO BEDTIME 30 Days #30 tab Physician Discharge Instructions: You were found to have a new stroke, medications were changed - your aspirin and plavix were discontinued and you were started on Eliquis. Your cholesterol medication, atorvastatin, was increased. You are discharged to continue physical therapy at inpatient rehab. You were also noted to have a urinary tract infection and completed full course of treatment for this. Please call Dr. Oleary/Sha''s office when discharged from inpatient rehab to schedule the watchman procedure as an outpatient. Diet: ADA Activity: Fall precautions Followup: OOT,OOT [Primary Care Provider] - Time spent managing pt's care (in minutes): 40
[2021-03-15 09:57] VITALS: O2SAT 98
== END 2021-03-15 10:26 | DRG 64 ==
LOC: ER 10:14 → ERHOLD 15:09 → 2ND 17:01
PROVIDERS: ADMIT Internal Medicine; ATTEND Internal Medicine
DX: I63.441 Cerebral infarction due to embolism of right cerebellar artery (principal); G93.41 Metabolic encephalopathy; I48.20 Chronic atrial fibrillation, unspecified; N30.00 Acute cystitis without hematuria; R47.01 Aphasia; R29.711 NIHSS score 11; N40.0 Benign prostatic hyperplasia without lower urinary tract symptoms; I25.10 Atherosclerotic heart disease of native coronary artery without angina pectoris; E78.5 Hyperlipidemia, unspecified; E11.9 Type 2 diabetes mellitus without complications; F03.90 Unspecified dementia, unspecified severity, without behavioral disturbance, psychotic disturbance, mood disturbance, and anxiety; B96.1 Klebsiella pneumoniae [K. pneumoniae] as the cause of diseases classified elsewhere; I27.20 Pulmonary hypertension, unspecified; Z95.5 Presence of coronary angioplasty implant and graft
CPT/HCPCS: 36415; 70450; 70544; 70549; 70553; 71045; 74177; 80048; 80061; 80076; 81003; 81015; 82306; 82550; 82565; 82947; 83605; 83735; 83880; 84100; 84132; 84145; 84443; 84484; 85025; 85610; 85652; 85730; 87040; 87077; 87086; 87088; 87186; 92523; 92610; 93005; 93306; 96365; 97110; 97112; 97116; 97161; 97530; 99285; A9577; J0360; J0696; J1650; J3475; J7030; J7040; Q9967

== ENCOUNTER 2021-03-13 09:49 | Inpatient (IN) | payer MEDICARE ==
--- NOTE | 2021-03-14 18:35 | R.PREADM ---
PRE-ADMISSION SCREENING FORM SCREENING DATE AND TIME 03/14/2021 16:10 (CDT) ANTICIPATED REHAB ADMISSION DATE 03/16/2021 REFERRING FACILITY [facility] REFERRAL DATE AND TIME 03/14/2021 16:10 (CDT) Previous Rehabilitation(s): No. ACUTE CLIENT CONSULTANT/DC NEUROPSYCHOLOGY SERVICE DIRECTOR Doris ATTENDING PHYSICIAN JOSEPHINE OATES MD REFERRING PHYSICIAN Ed Arceo REHAB FACILITY [facility] CLINICAL LIAISON Natasha Romero PHYSICIAN REVIEWER Dr. Rico Rodríguez M.D. [facility]# [id number] [facility] [id number] NAME SALVADOR SALINAS AD[address]ESS [address] [place] [address] [place]ONE ZIP [address] DATE OF 1940 AGE 80 SSN# [id number] GENDER male MARITAL STATUS ADMIT FROM 02 - [facility] PRE-HOSPITAL LIVING SETTING 01 - Home (private home/apt. board/care, assisted living, nursing home, transitional living) HOME TYPE AND DETAILS Type of home: single family house # of levels in the residence: 1 # of steps within the residence: 0 # of steps to enter the residence: 0 PRE-HOSPITAL LIVING WITH Family/Relatives FAMILY SUPPORT Yes PRIMARY FAMILY CONTACT NAME Antionette Salinas PRIMARY FAMILY CONTACT PHONE PRIMARY FAMILY CONTACT RELATIONSHIP Spouse PHONE PRIMARY FAMILY CONTACT ON ADM.? no IS PRIMARY FAMILY CONTACT AUTH. REP.? no 1ST EMERGENCY CONTACT Antionette Salinas 1ST CONTACT PHONE 1ST CONTACT RELATIONSHIP Spouse PHONE 1ST CONTACT ON ADM. no IS 1ST CONTACT AUTH. REP.? no PHONE 2ND CONTACT ON ADM.? no PATIENT EMPLOYMENT STATUS Retired (for age) PATIENT EMPLOYER No Employer PAYOR INFORMATION: 1ST PAYOR NAME AARP MEDICARE COMPLETE 1ST PAYOR PHONE [phone] 1ST PAYOR INJURY/ILLNESS DUE TO ACCIDENT? No ANOTHER REPUBLICAN RESPONSIBLE? No PRIMARY REHAB/ACUTE DIAGNOSIS: acute cva REHAB IMPAIRMENT CATEGORY (SAMMIE): 01 Stroke (STR) MEETS 60% rule AFFECTED EXTREMITIES: LLE, and LUE PRIMARY DIAGNOSIS-RELATED SURGERIES: N/A SUMMARY OF ACUTE HOSPITALIZATION: Pt. is a 80 yo Right-handed male. On 03/07/2021 Pt. presented to [facility] with sudden onset of left-side weakness. On 03/15/2021 he was admitted to [facility] with diagnosis acute cva. His impairment category is Stroke 01 - Left Body (Right Brain) (01.1). Pre-morbidly, Pt. was independent/mod-I in Locomotion, Balance, Safety Awareness, Transfers Control, Communication, and Self-Care; and he had good Endurance and Sphincter Control. Currently, he has deficits of Locomotion, Safety Awareness, Balance, Transfers Control, Sphincter Con trol, Self-Care, Communication, and Endurance. Pt. is now referred to [facility] for acute in-patient rehabilitation in order to maximize patient's functional independence in activities of daily living, strength, ROM, and mobi lity. Patient has realistic goal of being discharged at assistance level 7-Ind to reside at Home with Fami ly/Relatives. PAST MEDICAL HISTORY AFIB MULTIPLE TIA'S T2DM HTN BPH S/P PROSTATE SX Atherosclerosis (I70) MELANOMA X2 REMOVAL SX ON HEAD HLD HERNIA REPAIR PAST SURGICAL HISTORY: HERNIA REPAIR OPEN HEART SX CARTOID ARTERY SX X7 STENTS MEDICATION ALLERGIES: No Known Drug Allergies (NKDA) ENVIRONMENTAL ALLERGIES: - Substance Allergies None Known - Other Allergies None Known CODE STATUS: Full code WEIGHT/HEIGHT/BMI: WEIGHT 169 lbs HEIGHT 5' 9" BMI 25 DIET: - Diet Type Regular - Diet - Solid Texture Regular - Diet - Liquid Texture Regular - Tube Feed N/A REVIEW OF SYSTEMS: - Gen Alert and awake Lying in bed No apparent distress Oriented to: person, time, and place - Vital Signs Temperature: 97.8 F SBP/DBP: 138/65 Pulse: 72 Resp: 20 Vital signs stable, afebrile - CVS RRR VITAL SIGNS Temperature: 97.8 F SBP/DBP: 138/65 Pulse: 72 Resp: 20 Vital signs stable, afebrile MEDICATIONS/TREATMENT: Other- See attached MAR (Medication Administration Record). CURRENT SPHINCTER CONTROL: Pre-hospital bladder status: unspecified # of bladder accidents in the last 7 days prior to screenin Pre-hospital bowel status: unspecified # of bowel accidents in the last 7 days prior to screenin Last Bowel Movement Date: 03/14/2021 CURRENT LOCOMOTION STATUS: distance walked 95 feet ROLLING WALKER DETAILED CURRENT FUNCTIONAL STATUS: - Bladder accident frequency: 7-Ind - No accidents in the past 7 days - Bowel accident frequency: 7-Ind - No accidents in the past 7 days - Walking score based on distance walked: 0(N/A) score based on distance walked: 2(50-149ft) - Wheelchair score based on distance traveled: 0(N/A) QI SCORES: - Self-Care A. Eating 03-Partial/moderate assistance B. Oral hygiene 03-Partial/moderate assistance C. Toileting hygiene 02-Substantial/maximal assistance E. Shower/bathe self 02-Substantial/maximal assistance F. Upper body dressing 03-Partial/moderate assistance G. Lower body dressing 02-Substantial/maximal assistance H. Putting on/taking off footwear 88-Not attempted due to medical condition or safety concerns - Mobility A. Roll left and right 03-Partial/moderate assistance B. Sit to lying 03-Partial/moderate assistance C. Lying to sitting on side of bed 03-Partial/moderate assistance D. Sit to stand 03-Partial/moderate assistance E. Chair/byb-ka-nnrtt transfer 03-Partial/moderate assistance F. Toilet transfer 03-Partial/moderate assistance G. Car transfer 88-Not attempted due to medical condition or safety concerns I. Walk 10 feet 03-Partial/moderate assistance J. Walk 50 feet with two turns 03-Partial/moderate assistance K. Walk 150 feet 88-Not attempted due to medical condition or safety concerns L. Walking 10 feet on uneven surfaces 88-Not attempted due to medical condition or safety concerns M. 1 step (curb) 88-Not attempted due to medical condition or safety concerns N. 4 steps 88-Not attempted due to medical condition or safety concerns O. 12 steps 88-Not attempted due to medical condition or safety concerns P. Picking up object 88-Not attempted due to medical condition or safety concerns R. Wheel 50 feet with two turns 88-Not attempted due to medical condition or safety concerns S. Wheel 150 feet 88-Not attempted due to medical condition or safety concerns - Bladder and Bowel Bladder continence Bowel continence - Endurance Fair - Balance Poor - Safety Awareness Fair CURRENT FUNC. DEFICITS: Self-Care, Mobility, Endurance, Balance, and Safety Awareness CURRENT / PREVIOUS ASSISTIVE DEVICES: Rolling Walker HISTORY OF FALLS. HAS THE PATIENT HAD TWO OR MORE FALLS IN THE PAST YEAR OR ANY FALL WITH INJURY IN T HE PAST YEAR?: No PRIOR SURGERY. DID THE PATIENT HAVE MAJOR SURGERY DURING THE 100 DAYS PRIOR TO ADMISSION?: No THERAPY NOTES FROM ACUTE CARE: Attached. SPECIAL NEEDS: - Safety Concerns Skin breakdown precautions needed due to skin breakdown risk PRECAUTIONS: - Weight Bearing Precaution WBAT left LE PATIENT NEEDS ACTIVE AND ONGOING THERAPEUTIC INTERVENTION OF MULTIPLE THERAPY DISCIPLINES, INCLUDING: - Occupational Therapy Cognitive Retraining. Visual Perceptual Training. - Dietary and Nutrition Adequate Nutrition. Nutritional Education. Nutritional Supplements. - Speech Therapy Cognitive Training. Expressive Language Skills. Memory Strategies. Receptive Language Skills. Speech Intelligibility Training. PATIENT NEEDS CLOSE MEDICAL SUPERVISION BY A REHABILITATION PHYSICIAN FOR: Coordination of Treatment Team PATIENT REQUIRES 24X7 REHAB NURSING FOR MEDICAL AND FUNCTIONAL MGT. OF THE FOLLOWING DEFICITS: Disease Management Medication Management Patient/Family Education Providing Safe Environment PATIENT REQUIRES INTENSIVE, COORDINATED INTERDISCIPLINARY APPROACH TO REHAB: Arranging Home Equipment/Services Discharge Planning Family Intervention/Training Railway Signal Technician/Case Management PATIENT REHAB POTENTIAL: Toni SALINAS is able and expected to receive 3 hours of individualized therapy daily on at least 5 of ev eder 7 days Toni SALINAS's prognosis for significant practical improvement within a reasonable period of time appear s Good Expected level of measurable improvement will be of a practical value to Toni SALINAS's functional capac ity or adaptations to impairments Has a viable Discharge Plan Medically appropriate; condition is sufficiently stable to participate in intensive rehab program DISCHARGE PLAN: - Estimated Length of Stay (days) 17. - Consensus on plan Discharge plan has been discussed with primary caregiver. Patient/Family is in agreement with the lilliam n. Primary caregiver is in agreement with the plan. - Patient/Family Goals Return home independently. - Planned Living Setting Upon Discharge Home, to live with Family/Relatives. Transitional Living. RECOMMENDED CARE LEVEL: IRF RECOMMENDATION DETAILS: Recommended Admission to Comprehensive Rehabilitation Program to Increase Functional Maries SCREENER'S COMPLETENESS CONFIRMATION: - Screening Confirmation The patient data collection on this preadmission screening form is finished PHYSICIANS REVIEW AND ADMISSION DETERMINATION Admit - Based on my review of the Pre-Admission Screening results, in my medical judgment and experie nce, I concur with the findings and recommend admission to [facility], as this patient requires an IRF level of care. SIGNATURE PANEL: Shared Services Manager - [electronically] signed by Natasha Romero on 03/14/2021 at 16:59 (CDT) Shared Services Manager - [electronically] signed by Nicolas Raygoza PT on 03/14/2021 at 18:12 (CDT) Physician Reviewer - [electronically] signed by Dr. Rico Rodríguez M.D. on 03/14/2021 at 18:35 (CDT )
[2021-03-15] MEDS ORDERED: QUETIAPINE 25 MG TAB PO PRN (11:55)
[2021-03-15] MEDS ORDERED: GLUCAGON 1 MG/VIAL IM PRN (12:05)
[2021-03-15] MEDS ORDERED: D50W 25 GM/50 ML SYRINGE IV PRN (12:05)
[2021-03-15 13:01] LABS: Urine Appearance CLEAR (Clear); Urine Bilirubin NEGATIVE (Negative); Urine Blood NEGATIVE (Negative); Urine Color YELLOW (Yellow); Urine Glucose TRACE (Negative); Urine Protein NEGATIVE (Negative)
[2021-03-15 13:37] LABS: Urine Bacteria <20 /HPF (NONE SEEN); Urine RBC <5 /HPF (NONE SEEN)
--- NOTE | 2021-03-15 14:07 | R.HP ---
HISTORY AND PHYSICAL FACILITY: [facility] ENCOUNTER DATE AND TIME: 03/15/2021 14:00 (CDT) MR#: [id number] NAME SALVADOR BRUNNER ADDRESS: [address] [place] [address] CITY: [place] [address]IP [id number] PHONE: DATE OF : 1940 AGE: 80 SSN# [id number] GENDER: Male MARITAL STATUS PRE-HOSPITAL LIVING SETTING 01 - Home (private home/apt. board/care, assisted living, senior care, transitional living) PRE-HOSPITAL LIVING WITH Family/Relatives ENCOUNTER PHYSICIAN: Dr. Rico Rodríguez M.D. REFERRING DOCTOR: mildred Arceo DATE OF ADMISSION: 03/15/2021 10:27 (CDT) REFERRING FACILITY [facility] HOME TYPE AND DETAILS: Type of home: single family house # of levels in the residence: 1 # of steps within the residence: 0 # of steps to enter the residence: 0 PRIMARY DIAGNOSIS-RELATED SURGERIES: N/A HISTORY OF PRESENT ILLNESS (HPI): Pt. is a 80 yo Right-handed male. On 03/07/2021 Pt. presented to [facility] with sudden onset of left-side weakness. On 03/15/2021 he was admitted to [facility] with diagnosis acute cva. His impairment category is Stroke 01 - Left Body (Right Brain) (01.1). Pre-morbidly, Pt. was independent/mod-I in Locomotion, Balance, Safety Awareness, Transfers Control, Communication, and Self-Care; and he had good Endurance and Sphincter Control. Currently, he has deficits of Locomotion, Safety Awareness, Balance, Transfers Control, Sphincter Con trol, Self-Care, Communication, and Endurance. Pt. is now referred to [facility] for acute in-patient rehabilitation in order to maximize patient's functional independence in activities of daily living, strength, ROM, and mobi lity. Patient has realistic goal of being discharged at assistance level 7-Ind to reside at Home with Fami ly/Relatives. MEDICATION ALLERGIES: No Known Drug Allergies (NKDA) ENVIRONMENTAL ALLERGIES: - Substance Allergies None Known - Other Allergies None Known PAST MEDICAL HISTORY: AFIB MULTIPLE TIA'S T2DM HTN BPH S/P PROSTATE SX Atherosclerosis (I70) MELANOMA X2 REMOVAL SX ON HEAD HLD HERNIA REPAIR PAST SURGICAL HISTORY: HERNIA REPAIR OPEN HEART SX CARTOID ARTERY SX X7 STENTS SOCIAL HISTORY: - Home Living Family/Relatives REVIEW OF SYSTEMS: - Gen No Chills Fatigue No Fever - Eyes No Double Vision No itchiness - ENMT Difficulty Swallowing - CVS No Chest Discomfort No Chest Pain Fatigue No Weight Gain - Resp No Cough No Shortness of Breath - GI Continent No Abdominal Pain No Constipation No Diarrhea - Continent No Kidney Pain No Painful Urination No Urinary Urgency - MSK No Joint Pain Muscle Cramps Mild lower back pain - Skin No Itching No Rash No Suspicious Lesions - Neuro Coordination Difficulty Difficulty with Concentration Memory Loss No Seizures Weakness - Psych No Anxiety No Depression No HIV Exposure No Persistent Infections No Seasonal Allergies - Endo No Cold/Heat Intolerance No Excessive Hunger No Excessive Thirst No Excessive Urination PHYSICAL EXAM - Gen Alert and awake Lying in bed No apparent distress Oriented to: person, time, and place - Skin Mild bruising on the arms. Normacephalic - Eyes No abnormalities - ENMT No abnormalities - Neck No abnormalities - CVS RRR - Chest Clear - Abd + bowel sounds - GI Soft Deferred - No abnormalities - Ext No significant edema - MSK 3-4/5 weakness in right upper and 4+/5 in right lower extremity - Neuro 3-4/5 right upper extremity and 4/5 right lower extremity weakness. Decreased to light touch and temp erature or the right. - Psych Mild anxiety. VITAL SIGNS Temperature: 97.8 F SBP/DBP: 138/65 Pulse: 72 Resp: 20 NURSING: - Shower allowing shower - Bladder care per protocol - Skin care per protocol PRECAUTIONS: - Weight Bearing Precaution WBAT left LE ACTIVITIES OOB only with supervision QI SCORES: - Self-Care A. Eating 03-Partial/moderate assistance B. Oral hygiene 03-Partial/moderate assistance C. Toileting hygiene 02-Substantial/maximal assistance E. Shower/bathe self 02-Substantial/maximal assistance F. Upper body dressing 03-Partial/moderate assistance G. Lower body dressing 02-Substantial/maximal assistance H. Putting on/taking off footwear 88-Not attempted due to medical condition or safety concerns - Mobility A. Roll left and right 03-Partial/moderate assistance B. Sit to lying 03-Partial/moderate assistance C. Lying to sitting on side of bed 03-Partial/moderate assistance D. Sit to stand 03-Partial/moderate assistance E. Chair/zrn-yu-irthh transfer 03-Partial/moderate assistance F. Toilet transfer 03-Partial/moderate assistance G. Car transfer 88-Not attempted due to medical condition or safety concerns I. Walk 10 feet 03-Partial/moderate assistance J. Walk 50 feet with two turns 03-Partial/moderate assistance K. Walk 150 feet 88-Not attempted due to medical condition or safety concerns L. Walking 10 feet on uneven surfaces 88-Not attempted due to medical condition or safety concerns M. 1 step (curb) 88-Not attempted due to medical condition or safety concerns N. 4 steps 88-Not attempted due to medical condition or safety concerns O. 12 steps 88-Not attempted due to medical condition or safety concerns P. Picking up object 88-Not attempted due to medical condition or safety concerns R. Wheel 50 feet with two turns 88-Not attempted due to medical condition or safety concerns S. Wheel 150 feet 88-Not attempted due to medical condition or safety concerns - Bladder and Bowel Bladder continence Bowel continence - Endurance Fair - Balance Poor - Safety Awareness Fair CURRENT FUNC. DEFICITS: Self-Care, Mobility, Endurance, Balance, and Safety Awareness MEDICATIONS: - Other See attached MAR (Medication Administration Record) ASSESSMENT: Pt. is a 80 yo Right-handed male.On 03/07/2021 Pt. presented to [facility] with sudden o nset of left-side weakness.On 03/15/2021 he was admitted to [facility] with diagnosis ac chetna cva.His impairment category is Stroke 01 - Left Body (Right Brain) (01.1).Pre-morbidly, Pt. was independent/mod-I in Locomotion, Balance, Safety Awareness, Transfers Control, Communication, and Julissa f-Care; and he had good Endurance and Sphincter Control.Currently, he has deficits of Locomotion, Saf ety Awareness, Balance, Transfers Control, Sphincter Control, Self-Care, Communication, and Endurance .Pt. is now referred to [facility] for acute in-patient rehabilitation in orde r to maximize patient's functional independence in activities of daily living, strength, ROM, and mob ility.- Rehab Goal Patient has realistic goal of being discharged at assistance level 7-Ind to reside at Home with Fami ly/Relatives. REHAB PLAN: for Dementia, TBI, Stroke, or others - Physical Therapy Gait dysfunction - to improve, our physical therapists will perform initial evaluation of pt's status upon admission and devise an individualized program for Gait Training, and Wheel Chair mobility Inability to transfer - to improve, our physical therapists will perform initial evaluation of pt's s tatus upon admission and devise an individualized program for Bed mobility Need for home safety evaluation - to improve, our physical therapists will perform initial evaluation of pt's status upon admission and devise an individualized program for Home Evaluation Need in caregiver upon discharge - to improve, our physical therapists will perform initial evaluatio n of pt's status upon admission and devise an individualized program for Caregiver Training New precaution - to improve, our physical therapists will perform initial evaluation of pt's status u katerina admission and devise an individualized program for Patient precaution education Edema - to improve, our physical therapists will perform initial evaluation of pt's status upon admi ssion and devise an individualized program for Elevation Training, and Lymphedema Therapy Poor balance - to improve, our physical therapists will perform initial evaluation of pt's status upo n admission and devise an individualized program for Balance Training Poor endurance - to improve, our physical therapists will perform initial evaluation of pt's status u katerina admission and devise an individualized program for Endurance Training Weakness - to improve, our physical therapists will perform initial evaluation of pt's status upon ad mission and devise an individualized program for Aquatic Therapy, Neuromuscular Reeducation, and Stre ngthening Achieving independence - to improve, our physical therapists will perform initial evaluation of pt's status upon admission and devise an individualized program for Community Reintegration Activities - Occupational Therapy ADL deficits - to improve, our occupation therapists will perform initial evaluation of pt's status u katerina admission and devise an individualized program for Bathing, Bed mobility, Community Reintegration , Cooking, Dressing, Eating, Fine Motor Skills, Grooming, Homemaking, Kitchen Mobility, Laundry, Karely ent Education, Safety Awareness, Splinting - Positioning, Transfers(Toilet, Tub, Shower), and Wheel C hair Management Need for child care specialist - to improve, our occupation therapists will perform initial evaluation of pt's s tatus upon admission and devise an individualized program for Caregiver Training Weakness - to improve, our occupation therapists will perform initial evaluation of pt's status upon admission and devise an individualized program for Aquatic Therapy, Balance, Endurance, UE ROM, and U E strengthening MEDICAL PLAN: - Diet Type Start Regular - Diet - Liquid Texture Start Regular - Tube Feed Start N/A - Bladder care per protocol - Weight Bearing Precaution WBAT left LE - Skin care per protocol - Other See attached MAR (Medication Administration Record) - Diet - Solid Texture Regular - Shower shower DISCHARGE PLAN: - Estimated Length of Stay (days) 17. - Consensus on plan Discharge plan has been discussed with primary caregiver. Patient/Family is in agreement with the lilliam n. Primary caregiver is in agreement with the plan. - Patient/Family Goals Return home independently. - Planned Living Setting Upon Discharge Home, to live with Family/Relatives. Transitional Living. SIGNATURE PANEL: (CDT)
--- NOTE | 2021-03-15 14:08 | PAPE ---
POST ADMISSION PHYSICIAN EVALUATION PATIENT: [facility] MR# [id number] REFERRING DOCTOR mildred Arceo EVALUATION DATE AND TIME 03/15/2021 14:06 (CDT) NAME SALVADOR BRUNNER DATE OF 1940 AGE 80 PHONE N# [id number] GENDER male EVALUATING PHYSICIAN Dr. Rico Rodríguez M.D. ADMISSION DIAGNOSIS: acute cva POST-ADMISSION FUNCTIONAL/MEDICAL STATUS: - Bladder Same accident frequency: 7-Ind - No accidents in the past 7 days - Bowel Same accident frequency: 7-Ind - No accidents in the past 7 days - Walking Same score based on distance walked: 0(N/A) Same score based on distance walked: 2(50-149ft) - Wheelchair Same score based on distance traveled: 0(N/A) STATUS CHANGE EVALUATION: No change in Functional or Medical Status is identified compared with Pre-Admission screening. PATIENT NEEDS CLOSE MEDICAL SUPERVISION BY A REHABILITATION PHYSICIAN FOR: Coordination of Treatment Team PATIENT REQUIRES 24X7 REHAB NURSING FOR MEDICAL AND FUNCTIONAL MGT. OF THE FOLLOWING DEFICITS: Disease Management Medication Management Patient/Family Education Providing Safe Environment PATIENT REQUIRES INTENSIVE, COORDINATED INTERDISCIPLINARY APPROACH TO REHAB: Arranging Home Equipment/Services Discharge Planning Family Intervention/Training Wallpaper Installer/Case Management LIST OF IDENTIFIED AND POTENTIAL PROBLEMS: Alteration in leisure activities Bladder, Incontinence Bowel, Incontinence Infection, Actual or Potential Mobility Impaired Pain, Alteration in Comfort Self Care Deficit Skin Integrity, Actual or Potential Urinary Tract Infection (UTI), Actual or Potential PATIENT COULD BE AT RISK FOR COMPLICATIONS FROM ADVERSE MEDICAL CONDITIONS DUE TO HIS/HER COMORBIDITI ES AND THE RIGORS OF THE INTENSIVE REHABILLITATION PROGRAM. METHODS OR INTERVENTIONS TO AVOID COMPLIC ATIONS INCLUDE: - Bleeding Stroke patients assessed for lethargy or change in status. - Infection Clinical staff to assess and manage the signs and symptoms of infection including fever, redness, war mth, etc. - Urinary Tract Infection - Aspiration Clinical staff will assess and manage coughing, drooling, congestion. - Falls Patient will be evaluated for Fall Precautions and will be placed on Fall Precautions as indicated pe r protocol. - Skin Breakdown Nursing will assess skin daily using assessment tool and will place on Skin Breakdown Precautions as indicated per protocol. - Pain Clinical staff may employ non-medication methods such as massage, distraction, decrease stimulus, etc . as needed. Clinical staff will assess patient's pain level every shift per protocol to assess and e nsure pain management effectiveness. Medications will be given and the pain level re-assessed. PRELIMINARY PLAN OF CARE: - Physical Therapy Patient needs Physical Therapy for a daily minimum of 1.5 hours at least 5 out of 7 days, to improve: Mobility, Strengthening, Transfers, Stretching, ROM, Endurance, Ability to manage stairs, Gait, and Balance. - Speech Therapy Patient needs Speech Therapy for a daily minimum of 0.5 hours at least 5 out of 7 days, to improve: S wallowing, Cognition, Language Skills, and Compensatory Strategies. - Rehabilitation Nursing Patient requires 24x7 Rehabilitation Nursing for: Pain Issues, Identifying and preventing risk factor s, Monitoring and reporting current medical conditions, Assisting with ambulation and transfer, Theresa ting with all ADL-s, Teaching patients about disease process and medications, Family teaching, Provid ing safe environment, Bowel and Bladder Issues, Skin Integrity, and Medication Management. Patient needs Wallpaper Installer and/or Case Management for: Discharge Planning, Arranging Home Equipmen t or Services, and Family Interventions. - Dietary and Nutrition Services Patient needs Dietary and Nutrition Services for: Adequate Nutrition, Nutritional Supplements, and Nu tritional Education. - Occupational Therapy Patient needs Occupational Therapy for a daily minimum of 1.5 hours at least 5 out of 7 days, to impr ove Activities of Daily Living, including: Eating, Grooming, Bathing, Dressing, Toileting, Toilet Tra nsfers, Community Reintegration, Higher functional activities, Adaptive Equipment, Splinting, Househo ld Tasks, and Other activities as determined. QI SCORES: - Self-Care A. Eating 03-Partial/moderate assistance B. Oral hygiene 03-Partial/moderate assistance C. Toileting hygiene 02-Substantial/maximal assistance E. Shower/bathe self 02-Substantial/maximal assistance F. Upper body dressing 03-Partial/moderate assistance G. Lower body dressing 02-Substantial/maximal assistance H. Putting on/taking off footwear 88-Not attempted due to medical condition or safety concerns - Mobility A. Roll left and right 03-Partial/moderate assistance B. Sit to lying 03-Partial/moderate assistance C. Lying to sitting on side of bed 03-Partial/moderate assistance D. Sit to stand 03-Partial/moderate assistance E. Chair/tal-kw-evptb transfer 03-Partial/moderate assistance F. Toilet transfer 03-Partial/moderate assistance G. Car transfer 88-Not attempted due to medical condition or safety concerns I. Walk 10 feet 03-Partial/moderate assistance J. Walk 50 feet with two turns 03-Partial/moderate assistance K. Walk 150 feet 88-Not attempted due to medical condition or safety concerns L. Walking 10 feet on uneven surfaces 88-Not attempted due to medical condition or safety concerns M. 1 step (curb) 88-Not attempted due to medical condition or safety concerns N. 4 steps 88-Not attempted due to medical condition or safety concerns O. 12 steps 88-Not attempted due to medical condition or safety concerns P. Picking up object 88-Not attempted due to medical condition or safety concerns R. Wheel 50 feet with two turns 88-Not attempted due to medical condition or safety concerns S. Wheel 150 feet 88-Not attempted due to medical condition or safety concerns - Bladder and Bowel Bladder continence Bowel continence - Endurance Fair - Balance Poor - Safety Awareness Fair POTENTIAL FUNCTIONAL GOALS FOR PATIENT TO ACHIEVE BY DISCHARGE: - Safety Precaution Patient will remain free from falls or injury at time of discharge. - Bed Mobility Patient will perform bed mobility at 4-Kelvin level of assistance. - Transfers Patient will complete transfers from bed to chair at 4-Kelvin level of assistance. - Mobility Patient will ambulate 150 ft with 4-Kelvin level of assistance with RW. PATIENT REHAB POTENTIAL Toni BRUNNER is able and expected to receive 3 hours of individualized therapy daily on at least 5 of ev eder 7 days WRg BRUNNER's prognosis for significant practical improvement within a reasonable period of time appear s Good Expected level of measurable improvement will be of a practical value to Toni BRUNNER's functional capac ity or adaptations to impairments Has a viable Discharge Plan Medically appropriate; condition is sufficiently stable to participate in intensive rehab program DISCHARGE PLAN: - Estimated Length of Stay (days) 17. - Consensus on plan Discharge plan has been discussed with primary caregiver. Patient/Family is in agreement with the lilliam n. Primary caregiver is in agreement with the plan. - Patient/Family Goals Return home independently. - Planned Living Setting Upon Discharge Home, to live with Family/Relatives. Transitional Living. CONCLUSION ON REHABILITATION NECESSITY: I have evaluated patient's pre-admission functional status and, comparing it to the patient's post-ad mission functional status now, I conclude that the pre-admission assessment was accurate. Patient's c ondition on admission supports the medical necessity of admission to [facility]. It is safe to proceed with patient's therapy program. SIGNATURE PANEL: (CDT)
[2021-03-15] MEDS ORDERED: D50W 25 GM/50 ML VIAL IV PRN (15:00)
--- OUTSIDE RECORDS SUMMARY | 2021-03-15 15:26 | XMS REPORT | Continuity of Care Document ---
:1940 Author Organization [facility] t Address [address] [place] [address] Care Team Providers Name Role Phone Pcp [...] Memoria PAIN 2-13 09:39:00 l DJD 08:38: [place] LUMBAR 00 PAIN Active 10/22/2018 [facility] Erosion of Erosion of [...] KIDNEY 4-24 22:28:00 l INJURY AMS, 00:00: [place] UTI, 00 KIDNEY INJURY Active 12/31/2017 [facility] INJURY OF Diagnosis Active 2018-01-07 Memoria URETER 4-24 22:03:00 l INJURY 00:00: [place] OF URETER 00 Active 12/31/2017 [facility] [id number], Diagnosis Active 2018-04-17 Memoria 34433 3-27 16:05:00 l BILATERAL 00:00: [place] UMBILICAL [id number], 00 OUMAR 38127 BILATERAL UMBILICAL OUMAR Active 12/03/2017 [facility] Chest pain Problem Active 2020-11-02 M emoria (finding) 2- 22:19:21 l Chest 00:00: [place] pain 00 (finding) Active 10/30/2012 Problem 11/02/2020 Data migrated from [employer] on 02/05/15. Medical Group,[facility] [place] History of History of Problem Resolve Univers [...] d injury of ureter, initial encounter 01/05/2018 [facility] Carotid Problem Active 2020-11-02 Ryan melodie atheroscle 22:19:21 l rosis Carotid [place] (disorder) atheroscle rosis (disorder) Active Problem 11/02/2020 Medical Group,[facility] Coronary Problem Active 2020-11-02 Mem oria arterioscl 22:19:21 l erosis Coronary Brennen n (disorder) arterioscl erosis (disorder) Active Problem 11/02/2020 Data migrated from [facility] on 02/05/15. Medical Group,[facility] Diabetes Problem Active 2020-11-02 Mem oria mellitus 22:19:21 l (disorder) Diabetes He rmann mellitus (disorder) Active Problem 11/02/2020 Medical Group,[facility] Femoral Problem Active 2020-11-02 Ryan melodie hernia 22:19:21 l (disorder) Femoral Her dickson hernia (disorder) Active Problem 11/02/2020 Medical Group,[facility] [place] Gastroesop Problem Active 2020-11-02 M emoria hageal 22:19:21 l reflux [place] disease Gastroesop with hageal esophagiti reflux s disease (disorder) with esophagiti s (disorder) Active Problem 11/02/2020 Medical Group,[facility] [place] Glaucoma Problem Active 2020-11-02 Mem oria (disorder) 22:19:21 l Glaucoma Brennen n (disorder) Active Problem 11/02/2020 Medical Group,[facility] [place] Hyperlipid Problem Active 2020-11-02 M emoria emia 22:19:21 l (disorder) Brennen n Hyperlipid emia (disorder) Active Problem 11/02/2020 Medical Group,[facility] Hypertensi Problem Active 2020-11-02 emoria ve 22:19:21 l disorder, [place] systemic Hypertensi arterial ve (disorder) disorder, systemic arterial (disorder) Active Problem 11/02/2020 Data migrated from [email or web address] on 02/05/15. Medical Group,[facility] [place] Mitral Problem Active 2020-11-02 Memor ia valve 22:19:21 l regurgitat Mitral Herm donavon ion valve (disorder) regurgitat ion (disorder) Active Problem 11/02/2020 Medical Group,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 Persistent Problem Active 2020-11-02 M emoria atrial 22:19:21 l fibrillati Brennen n on Persistent (disorder) atrial fibrillati on (disorder) Active Problem 11/02/2020 Medical Group,[facility] Tricuspid Problem Active 2020-11-02 Me moria valve 22:19:21 l regurgitat Brennen n ion Tricuspid (disorder) valve regurgitat ion (disorder) Active Problem 11/02/2020 Medical Group,[facility] Umbilical Problem Active 2020-11-02 Me moria hernia 22:19:21 l (disorder) Brennen n Umbilical hernia (disorder) Active Problem 11/02/2020 Medical Group,[facility] [place] ALTERED Diagnosis Active 2017-12-31 Me moria MENTAL 22:28:00 l STATUS, ALTERED Brennen n UNSPECIFIE MENTAL D STATUS, UNSPECIFIE D Active [facility] UNSPECIFIE Diagnosis Active 2018-01-07 Memoria D INJURY 22:03:00 l OF URETER, Brennen watt INITIAL EN UNSPECIFIE D INJURY OF URETER, INITIAL EN Active [facility] AMS/ UTI/ Diagnosis Active 2018-01-01 Memoria DIRECT 19:23:00 l ADMIT AMS/ [place] UTI/ DIRECT ADMIT Active [facility] DJD DJD Problem Active Univers [...] Comments Source Sex Assigned At [facility] Tobacco use and 2018-05-14 2018-05-14 Never used [facility] - exposure 00:00:00 00:00:00 [facility] Alcohol intake 2018-05-14 2018-05-14 Current [facility]lvarez es - 00:00:00 00:00:00 non-drinker of Medical Ce nter alcohol (finding) Tobacco Comment 2018-04-30 2018-04-30 quit 30 yrs ago [facility] - 00:00:00 00:00:00 [facility] Social History 2017-12-18 2017-12-18 [facility] maryann 16:53:06 16:53:06 Smoking Status Start Date Stop Date Source Never smoker [facility] Former smoker 2018-05-14 00:00:00 2018-05-14 00:00:00 [facility] Medications Ordered Filled Start Stop Current Ordering Indication Dosage Frequency Signature Comments Components Source Medication Medication Date Date Medication? Clinician (SIG) Name Name lisinopril 2019-0 Yes 20 mg = 1 Me moria 20 mg oral 2-24 tab, PO, l tablet 17:14: Daily, 0 [place] 00 Refill(s) Aspirin 81 2019-0 Yes 81 mg = 1 Me moria MG Enteric 2-24 tab, PO, l Coated 17:14: Daily, # [place] Tablet 00 90 tab, 3 Refill(s) NovoLog 2020-0 Yes SUB-Q, Memoria 2-24 TID-Before l 17:14: Meals, 0 [place] 00 Refill(s) lisinopril 2018- Yes 40 mg = 1 Me moria 40 mg oral 8-26 tab, PO, l tablet 15:26: Daily, 0 [place] 00 Refill(s) apixaban 5 Yes 5 mg = 1 Mem oria MG Oral 3-29 tab, PO, l Tablet 19:59: BID, # 180 Larissa nn [Eliquis] 56 tab, 3 Refill(s), Pharmacy: [facility] [id number] lisinopril 20190 Yes 5 mg = 1 Mem oria 5 mg oral 2-25 tab, PO, l tablet 16:45: BID, 0 [place] 00 Refill(s) sitagliptin 2019-0 Yes 50 mg = 1 M emoria 50 MG Oral 2-25 tab, PO, l Tablet 16:45: Daily, 0 [place] [Januvia] 00 Refill(s) lisinopril 0 Yes 20mg [...] mouth Medica l 24 hr 36 daily. [place] capsule travoprost 2017-0 Yes 1[drp] QD Place [address] (TRAVATAN 9-[address] [facility] - Z) 0.004 % 14:03: [...] day, # 14 tab, 0 Refill(s), Pharmacy: [facility] [id number] Eliquis No Notes: Memoria 01-02 Same as: [...] ophthalmic 01-02 (Same As: l 02:00: Timoptic, [place] Betimol) metoprolol No Notes: Memor ia tartrate [...] WASTE: F/P l 23:00: - Sink; E [place] [facility] Trash Bin travoprost No 1 drp, Memor [...] / 4-25 (Same as: l Hydrocodone 04:07: Burns Larissa nn Bitartrate 00 325/5) Do 5 MG Oral not exceed Tablet 4gm/day of acetaminop hen. Sodium 2018-0 No 1,000 mL, Memori a Chloride 4-25 Rate: 75 l 0.9% IV 04:07: ml/hr, Edmund 1,000 mL 00 Infuse over: 13.3 hr, [...] Memori a 4-16 Route: l 19:45: IVP, [place] 00 Q2MIN, Dosing Weight 84.091, kg, PRN Narcotic Reversal, Start date: 12/23/17 14:45:00 CDT, Duration: 8 doses or times, Stop date: Limited # of times Flumazenil 2017-0 No 0.2 mg, Ryan melodie 4-16 Route: l 19:45: IVP, PRN, [place] 00 Dosing Weight 84.091, kg, PRN Benzodiaze pine Reversal, Initial dose, Start date: 12/23/17 14:45:00 CDT, Duration: 30 day, Stop date: 01/22/18 14:44:00 CDT Hydromorpho 2018-0 No 0.5 mg, Mem oria ne 4-16 Route: l 19:45: IVP, [place] 00 Q5Min, Dosing Weight 84.091, kg, PRN [...] Rate: 25 l 0.9% IV 15:33: ml/hr, [place] 1000 mL 00 Infuse over: 40 hr, [...] Edmund 05 90 tab, 1 Refill(s), Pharmacy: [facility] [id number], DUE FOR AN OFFICE VISIT. PLEASE CALL DR. CRUZ' S OFFICE TO MAKE AN APT. lisinopril No 20 mg = 1 Me moria 20 mg oral 3-26 tab, PO, l tablet 18:44: Daily, # Edmund 59 90 tab, 1 Refill(s), Pharmacy: [facility] [address], DUE FOR AN OFFICE VISIT. PLEASE CALL DR. COLVIN 'S OFFICE TO MAKE AN APT. Metoprolol Yes 100 mg = 1 M emoria Succinate 3-26 tab, PO, l ER 100 mg 18:44: Daily, # Herm donavon oral 22 90 tab, 1 tablet, Refill(s), extended Pharmacy: release [facility] [place] [address] atorvastati Yes 40 mg = 1 M emoria n 40 mg 3-26 tab, PO, l oral tablet 18:44: Daily, # He rmann 00 90 tab, 1 Refill(s), Pharmacy: [facility] [address] dapaglifloz Yes 5 mg = 1 Me [...] nn [Eliquis] 44 tab, 1 Refill(s), Pharmacy: [facility] [place] [address] PriLOSEC 10 PriLOSEC 10 Yes U nivers MG CPDR MG CPDR [facility] [place] [facility] Atorvastati Atorvastati Yes U nivers [...] 10 MG Oral ity of Tablet Tablet [place] [facility] Vital Signs Vital Name Observation Time Observation Value Comments Source Systolic (mm Hg) 2020-02-24 14:38:00 Ryan martinez [place] Diastolic (mm Hg) 2020-02-24 14:38:00 [facility] Heart Rate 2020-02-24 14:38:00 [facility] Height 2020-02-24 14:38:00 182.88 cm [facility] Weight 2020-02-24 14:38:00 [facility] BMI Calculated 2020-02-24 14:38:00 Brian Medina Systolic (mm Hg) 2019-11-02 17:12:00 Ryan juan [place] Diastolic (mm Hg) 2019-11-02 17:12:00 Mem orial [place] Heart Rate 2019-11-02 17:12:00 [facility] Height 2019-11-02 17:12:00 180.34 cm [facility] Weight 2019-11-02 17:12:00 [facility] BMI Calculated 2019-11-02 17:12:00 Memori al [place] Systolic (mm Hg) 2019-05-04 15:24:00 Ryan rial [place] Diastolic (mm Hg) 2019-05-04 15:24:00 Mem orial [place] Heart Rate 2019-05-04 15:24:00 [facility] [place] Height 2019-05-04 15:24:00 180.34 cm [facility] [place] Weight 2019-05-04 15:24:00 [facility] [place] BMI Calculated 2019-05-04 15:24:00 Memori al [place] BMI Calculated 2018-11-03 16:43:00 Memori al [place] Weight 2018-11-03 16:43:00 [facility] [place] Height 2018-11-03 16:43:00 177.8 cm [facility] [place] Systolic (mm Hg) 2018-11-03 16:43:00 Ryan rial [place] Diastolic (mm Hg) 2018-11-03 16:43:00 Mem orial [place] Heart Rate 2018-11-03 16:43:00 [facility] [place] Height 2018-09-17 10:37:00 71 [in_us] [facility] Physician s Weight 2018-09-17 10:37:00 198 [lb_av] [facility] s Body Mass Index 2018-09-17 10:37:00 27.62 kg/m2 Unive rsity of Calculated [place] [facility] Heart Rate 2018-05-05 16:44:00 [facility] [place] Systolic (mm Hg) 2018-05-05 16:44:00 Ryan rial [place] Diastolic (mm Hg) 2018-05-05 16:44:00 Mem orial [place] Weight 2018-05-05 16:44:00 [facility] [place] BMI Calculated 2018-05-05 16:44:00 Memori al [place] Height 2018-05-05 16:44:00 177.8 cm [facility] [place] BMI Calculated 2018-02-24 15:01:00 Memori al [place] Weight 2018-02-24 15:01:00 [facility] [place] Height 2018-02-24 15:01:00 182.88 cm [facility] [place] Systolic (mm Hg) 2018-02-24 15:01:00 Ryan rial [place] Diastolic (mm Hg) 2018-02-24 15:01:00 Mem orial [place] Heart Rate 2018-02-24 15:01:00 [facility] [place] Temperature Oral (F) 2018-01-02 21:08:00 97.8 F [facility] [place] Systolic (mm Hg) 2018-01-02 21:08:00 Ryan rial [place] Diastolic (mm Hg) 2018-01-02 21:08:00 Mem orial [place] Respitory Rate 2018-01-02 21:08:00 Memori al [place] Heart Rate 2018-01-02 21:08:00 [facility] [place] Respitory Rate 2018-01-02 16:25:00 Memori al [place] Temperature Oral (F) 2018-01-02 16:25:00 98.2 F [facility] [place] Heart Rate 2018-01-02 16:25:00 [facility] [place] Systolic (mm Hg) 2018-01-02 16:25:00 Ryan rial [place] Diastolic (mm Hg) 2018-01-02 16:25:00 Mem orial [place] Heart Rate 2018-01-02 12:58:00 [facility] [place] Respitory Rate 2018-01-02 12:58:00 Memori al [place] Systolic (mm Hg) 2018-01-02 12:58:00 Ryan rial [place] Diastolic (mm Hg) 2018-01-02 12:58:00 Mem orial [place] Temperature Oral (F) 2018-01-02 12:58:00 98.3 F [facility] [place] BMI Calculated 2018-01-01 03:40:00 Memori al [place] Weight 2018-01-01 03:40:00 [facility] [place] Height 2018-01-01 03:40:00 182.88 cm [facility] [place] Systolic (mm Hg) 2017-12-23 21:45:00 Ryan rial [place] Diastolic (mm Hg) 2017-12-23 21:45:00 Mem orial [place] Respitory Rate 2017-12-23 21:45:00 Memori al [place] Systolic (mm Hg) 2017-12-23 21:39:00 Ryan rial [place] Diastolic (mm Hg) 2017-12-23 21:39:00 Mem orial [place] Respitory Rate 2017-12-23 21:39:00 Memori al [place] Systolic (mm Hg) 2017-12-23 21:24:00 Ryan rial [place] Diastolic (mm Hg) 2017-12-23 21:24:00 Mem orial [place] Respitory Rate 2017-12-23 21:24:00 Memori al [place] Heart Rate 2017-12-23 15:46:00 [facility] [place] BMI Calculated 2017-12-18 15:02:00 Memori al [place] Weight 2017-12-18 15:02:00 [facility] [place] Height 2017-12-18 15:02:00 180.34 cm [facility] [place] BMI Calculated 2017-11-28 16:03:00 Memori al [place] Heart Rate 2017-11-28 16:03:00 [facility] [place] Systolic (mm Hg) 2017-11-28 16:03:00 Ryan rial [place] Diastolic (mm Hg) 2017-11-28 16:03:00 Mem orial [place] Height 2017-11-28 16:03:00 177.8 cm [facility] [place] Weight 2017-11-28 16:03:00 [facility] [place] Procedures Procedure Date / Time Performing Clinician Source Performed Pre Op Promise 29 Survey 2018-09-10 00:00:00 [facility] Measurement of 2018-02-24 15:04:00 Memorial dickson post-voiding residual urine and/or bladder capacity by ultrasound, non-imaging CABG - Coronary artery [facility] [place] bypass graft<sup>1</sup> Cardiac [facility] [place] catheterization<sup>2</s up> Carotid [facility] [place] endarterectomy<sup>3</beckett p> Repair of diaphragmatic [facility] [place] hiatal hernia<sup>4</sup> History of Heart Surgery [facility] History of Angioplasty [facility] Internal Carotid Artery Physicia ns Plan [...] 00:00:00 (1 of 1 - [facility] Center [id number] PCV13) [code = PNEUMOCOCCAL 65+ YRS (1 of 1 - [id number] PCV13)] Encounters Start End Encounter Admission Attending Care Care Encounter Source Date/Time Date/Time Type Type Clinicians Facility Department ID 2020-10-31 2020-10-31 [id number] 09:30:00 09:30:00 Syed Samaniego 15 2020-02-24 2020-02-24 Outpatient Clif [facility] [id number] 09:00:00 23:59:59 Gabrielle Figueroa 16 2019-11-02 2019-11-02 Outpatient Familia [facility] [id number] 11:00:00 23:59:59 Syed Samaniego 14 2019-05-04 2019-05-04 Outpatient Familia [facility] [id number] 10:15:00 23:59:59 Syed Samaniego 13 2018-10-22 2018-11-20 Outpatient Toro [id number] 08:38:00 23:59:00 Yakov [id number] [place] [id number] 5.98 2018-11-03 2018-11-03 Outpatient Familia [facility] [id number] 10:30:00 23:59:59 Syed Samaniego 12 2018-09-22 2018-10-21 Outpatient Trung [id number].[id number] 09:51:00 23:59:00 Yakov [id number]. [id number] [place] [id number] 5.98 2018-09-17 2018-09-17 [facility] [id number] Univers 09:30:00 09:30:00 t; Carlos Eduardo YAÑEZ Ortho and ity of [place] ENGEL S Allison Wahl M.D. [place] ans 2018-05-05 2018-05-05 Outpatient Familia [facility] [id number] 11:15:00 23:59:59 Syed Samaniego 09 2018-03-19 2018-03-20 Outpatient [facility] [id number] 13:39:00 23:59:59 06 2018-02-24 2018-02-24 Outpatient JES Wasserman [facility] [id number] 09:15:00 23:59:59 Robbi 11 2018-01-16 2018-01-16 [place] [id number] 14:15:00 14:15:00 Robbi 10 2018-01-16 2018-01-16 Outpatient Lux MG [facility] [id number] 14:15:00 14:15:00 Robbi 10 2018-01-06 2018-01-07 Outpatient MG [facility] [id number] 11:57:00 23:59:59 05 2017-12-31 2018-01-02 Outpatient Asad, Latonya Latonya [facility] [id number] 22:14:00 16:55:00 A 14 2017-12-31 2017-12-31 Outpatient Katy [facility] [id number] 22:12:00 22:12:00 Neri Javed 2017-12-23 2017-12-23 Outpatient Gomez, Fer [facility] [id number] 05:43:00 17:20:00 Efren Jadiel 2017-11-28 2017-11-28 Outpatient Nancy [facility] [id number] 10:45:00 23:59:59 Laith Wilson Max 2017-11-28 2017-11-28 Outpatient Nancy [facility] [id number] 10:45:00 23:59:59 Laith Wilson Max 2017-07-19 2017-07-20 Outpatient [facility] [id number] 16:08:00 23:59:59 04 2017-04-30 2017-04-30 Appointrene [facility] [id number] Univers 11:30:00 11:30:00 t; Carlos Eduardo YAÑEZ it y of Sandra [facility] Physici M.D. ans Results Test Test Test Results Result Source Description Time Comments Comments [U] XRAY SPINE 2018-09- Images acquired, not University of LUMBOSACRAL MIN 09 reported on this Qasim as 4 VWS [id number] 11:15:00 accession number. Jett ians [U] XRAY HIPS 2018-09- Images acquired, not U niversity of BILATERAL MIN 2 09 reported on this Qasim as VWS AND AP 07:43:00 accession number. Ailyn VIRGEN [id number] TISSUE EXAM 2018-05- Surgical Pathology 10 Report 17:28:00 Case: [id number] Authorizing Provider: Byron Ardon MD Collected: 05/13/2018 1448 Ordering Location: [facility] Received: 05/14/2018 0818 SERVICES Pathologist: [...] FAST MICROORGANISMS Signing Pathologist Direct Phone Line: [phone] ly signed by Eze Guzman MD on 05/19/2018 at 5:28 PMPreliminary result electronically signed by Eze Guzman MD on 05/16/2018 at 11:49 AMSpecial stains for AFB and GMS were negative for acid fast and fungal microorganisms, respectively. [id number] bladder emptying A. Mesh; B. Bladder with [...] surface throughout. No discrete masses are identified. Manager Of Case Management sections are submitted in cassettes C1-C19. DB/plPerformed POCT-GLUCOSE METER 2018-05-16 07:37:00 Test Item Value Reference Range Interpretation Comme nts POC-GLUCOSE METER (BEAKER) (test 184 mg/dL 70-110 H TESTED AT [facility] [address] code = 1538) [facility] 7703 0 BASIC METABOLIC [id number] 06:19:00 Test Item Value Reference Range Interpretation [...] CORPUSCULAR HEMOGLOBIN CONC 32.2 GM/DL 32.3-36.5 L ([facility]) (test code = 752) RED CELL DISTRIBUTION WIDTH 13.2 % 11.6-14.4 ([facility]) (test code = 412) PLATELET COUNT ([facility]) (test 191 K/CU MM 150-450 code = 756) MEAN PLATELET VOLUME ([facility]) 10.6 fL 9.4-12.4 (test code = 754) NUCLEATED RED BLOOD CELLS 0 /100 WBC 0-0 ([facility]) (test code = 413) POCT-GLUCOSE [id number] 21:51:00 Test Item Value Reference Range Interpretation Comments POC-GLUCOSE METER 216 mg/dL 70-110 H TESTED AT [place] [address] ([facility]) (test code = TALA Shultz [facility] 1538) [id number] POCT-GLUCOSE [id number] 19:28:00 Test Item Value Reference Range Interpretation Comments POC-GLUCOSE METER 186 mg/dL 70-110 H TESTED AT [place] [address] ([facility]) (test code = TALA Shultz [facility] 1538) 28055 POCT-GLUCOSE [id number] 16:57:00 Test Item Value Reference Range Interpretation Comments POC-GLUCOSE METER 215 mg/dL 70-110 H TESTED AT [place] [address] ([facility]) (test code = TALA Shultz [facility] 1538) [id number] POCT-GLUCOSE [id number] 12:43:00 Test Item Value Reference Range Interpretation Comments POC-GLUCOSE METER 223 mg/dL 70-110 H TESTED AT [place] [address] ([facility]) (test code = TALA Shultz [facility] 1538) [id number] POCT-GLUCOSE [id number] 08:13:00 Test Item Value Reference Range Interpretation Comments POC-GLUCOSE METER 157 mg/dL 70-110 H TESTED AT [place] [address] ([facility]) (test [facility] = [facility] 1538) [id number] GENTAMICIN LEVEL, [id number] 05:51:00 Test Item Value Reference Range Interpretation Comments GENTAMICIN TROUGH ([facility]) (test 1.9 ug/mL 0.5-1.0 H code = 398) Dosing Target Level (mcg/mL)1-1.5 mg/kg q 8-12 HR 0.5-1.03-7 mg/kg q 24 HR <0.5BASIC METABOLIC [id number] 05:47:00 Test Item Value Reference Range Interpretation [...] 0-0 (BEAKER) (test code = 413) POCT-GLUCOSE [id number] 21:47:00 Test Item Value Reference Range Interpretation Comments POC-GLUCOSE METER 220 mg/dL 70-110 H TESTED AT [place] [address] ([facility]) (test code = [facility] 1538) 16190 POCT-GLUCOSE [id number] 17:06:00 Test Item Value Reference Range Interpretation Comments POC-GLUCOSE METER 211 mg/dL 70-110 H TESTED AT [place] [address] ([facility]) (test code = [facility] 1538) [id number] POCT-GLUCOSE [id number] 11:44:00 Test Item Value Reference Range Interpretation Comments POC-GLUCOSE METER 225 mg/dL 70-110 H TESTED AT [place] [address] ([facility]) (test code = [facility] 1538) [id number] POCT-GLUCOSE [id number] 08:29:00 Test Item Value Reference Range Interpretation Comments POC-GLUCOSE METER 201 mg/dL 70-110 H TESTED AT [place] [address] ([facility]) (test code = [facility] 1538) 18995 BASIC METABOLIC [id number] 06:04:00 Test Item Value Reference Range Interpretation [...] 0-0 (BEAKER) (test code = 413) POCT-GLUCOSE [id number] 21:39:00 Test Item Value Reference Range Interpretation Comments POC-GLUCOSE METER 275 mg/dL 70-110 H TESTED AT [facility] 6720 (BEAKER) (test code = T[facility]A [facility]INCENT 1538) 34866 BASIC METABOLIC [id number] 19:42:00 Test Item Value Reference Range Interpretation [...] 0-0 (BEAKER) (test code = 413) POCT-GLUCOSE [id number] 18:50:00 Test Item Value Reference Range Interpretation Comments POC-GLUCOSE METER 197 mg/dL 70-110 H TESTED AT [facility] 6720 ([facility]) (test code = TALA Shultz [facility] 1538) [id number] VANCOMYCIN LEVEL, [id number] 12:29:00 Test Item Value Reference Range Interpretation Comments VANCOMYCIN TROUGH ([facility]) (test 20.9 ug/mL 10.0-20.0 H code = 522) Please draw trough at 1330 (30 minutes prior to scheduled vancomycin dose at 1400).POCT-GLUCOSE [id number] 07:17:00 Test Item Value Reference Range Interpretation Comments POC-GLUCOSE METER 148 mg/dL 70-110 H TESTED AT [facility] 67 ([facility]) (test code = TALA Shultz [facility] 1538) [id number] POCT-GLUCOSE [id number] 06:09:00 Test Item Value Reference Range Interpretation Comments POC-GLUCOSE METER 149 mg/dL 70-110 H TESTED AT [place] [address] ([facility]) (test code = TALA Shultz [facility] 1538) 25479 BASIC METABOLIC [id number] 06:04:00 Test Item Value Reference Range Interpretation [...] 0-0 (BEAKER) (test code = 413) POCT-GLUCOSE [id number] 21:17:00 Test Item Value Reference Range Interpretation Comments POC-GLUCOSE METER 164 mg/dL 70-110 H TESTED AT [place] [address] ([facility]) (test code = TALA Shultz [facility] 1538) [id number] POCT-GLUCOSE [id number] 16:39:00 Test Item Value Reference Range Interpretation Comments POC-GLUCOSE METER 225 mg/dL 70-110 H TESTED AT [place] [address] ([facility]) (test code = RHIANNAMIKAYLA Shultz [place] 1538) [id number] POCT-GLUCOSE [id number] 12:09:00 Test Item Value Reference Range Interpretation Comments POC-GLUCOSE METER 186 mg/dL 70-110 H TESTED AT [place] [address] ([facility]) (test code = RHIANNAMIKAYLA Shultz [facility] 1538) [id number] POCT-GLUCOSE [id number] 08:50:00 Test Item Value Reference Range Interpretation Comments POC-GLUCOSE METER 194 mg/dL 70-110 H TESTED AT [place] [address] (BEAKER) (test code = [place] 1538) [id number] BASIC METABOLIC [id number] 06:04:00 Test Item Value Reference Range Interpretation [...] 0-0 (BEAKER) (test code = 413) POCT-GLUCOSE [id number] 00:11:00 Test Item Value Reference Range Interpretation Comments POC-GLUCOSE METER 143 mg/dL 70-110 H TESTED AT [place] [address] ([facility]) (test code = [facility] Lexii [facility] 1538) [id number] POCT-GLUCOSE [id number] 17:16:00 Test Item Value Reference Range Interpretation Comments POC-GLUCOSE METER 261 mg/dL 70-110 H TESTED AT [place] [address] ([facility]) (test code = [facility] Lexii [facility] 1538) [id number] POCT-GLUCOSE [id number] 10:04:00 Test Item Value Reference Range Interpretation Comments POC-GLUCOSE METER 153 mg/dL 70-110 H TESTED AT [place] [address] ([facility]) (test code = [facility] 1538) [id number] BASIC METABOLIC [id number] 17:28:00 Test Item Value Reference Range Interpretation [...] S NOT APPLICABLE FOR DIALYSIS ARCELIA GREENE [id number] 17:26:00 Test Item Value Reference Range Interpretation Comments PARTIAL THROMBOPLASTIN TIME 28.7 seconds 22.5-36.0 (BEAKER) (test code = 760) PROTHROMBIN TIME/[id number] 17:25:00 Test Item Value Reference Range Interpretation [...] (test code = 2801) RAD, CHEST, 2 [id number] 16:06:00Reason for exam:->screening prior to anesthesiaFINAL REPORT [...] MDReport Verified Date/Time: 04/30/2018 16:06:13 Reading Location: [address] Radiology Reading Room CHEM [id number] 08:35:002.2[facility] AbwdgccVOGXTBVDDSNM1403-69-47 08:35:0012.7[facility] YfrlckgLEASBVMHCHXT9777-56-50 08:35:0028[facility] PLEINIDSADEZ9482-12-19 08:35:007.7[facility] WthekhlYIQJZJSODPUR3151-27-29 08:35:0012[facility] PfaiecnPXSRMPOPBUQO6553-34-42 08:35:24086Gkfyahgz [facility] NJXMFYRMLHRK8229-81-34 08:35:54588Oyyocjro TgbodgtVBSMBOXKPGLP9384-99-54 08:35:003.7[facility] DuoodukFSYNCRKIZFEA4216-76-03 08:35:0085[facility] RAGXSGYZSOVC5753-10-36 08:35:76947Vebvcozq LevsxnmWTRUUJRRRKVG6113-89-86 08:35:000.81[facility] SdasahoDYGGZRQWHY4871-20-04 08:35:008.2[facility] NQXGEWGPZB8937-84-39 08:35:56279Ucaswpwm HbckzfiBZXLMQTXKU0747-76-80 08:35:00 14.0[facility] EkoezmzFMBACXMFAP4863-00-39 08:35:009.7[facility]ann[facility]MATOLOGY 2018-01-02 08:35:003.93[facility] RvvytsfCVDCXAETJD9935-64-77 08:35:0012.0[facility] SojfnrwMIXYPLJOGS1637-87-91 08:35:0035.4[facility] ZmokczxQUYJDXDVWS4996-05-98 08:35:0090.1[facility] XaafrbiFYPDKZJGCH2376-27-03 08:35:00 Test Item Value Reference Range Interpretation Comments MCH (test code = MCH) 30.6 pg 27.0-31.0 [facility] PvfxcvoRHMOUGVCSN9968-28-53 08:35:0034.0[facility]ann[facility]MATOLOGY 2018-01-02 08:35:000.1[facility] MyirtfuLMNQGOESFC4632-99-95 08:35:0066.9[facility] WdqrbdpOFSRVTZKIQ2454-03-19 08:35:004.7[facility] DxhuvhaHCPOHLVDLS7908-90-28 08:35:001.1[facility] KiurlkwLSKJPZUFAI8450-60-77 08:35:0019.1[facility] KACRFEXYDI2306-53-70 08:35:008.2[facility] LcwwfeeIYURYAVMRK2450-02-31 08:35:006.5 [facility] SxuajhhONLFEQQXZY5357-48-39 08:35:000.5[facility]annHEMATOLOGY 2018-01-02 08:35:000.8[facility] HtbtxzfYJXMYTPLWM9566-26-04 08:35:001.9[facility] HermannCARDIAC MNNZXPA3999-22-10 05:05:83868Xcnstamg HermannCHEM CJEAR5695-96-19 05:05:001.4[facility] QsebaceZWLFWCGWYACT3155-04-62 05:05:0010.5[facility] AGGBYIDMTSJB1322-22-67 05:05:0033[facility] GotiojlQJSJLYKFULHG6063-42-72 05:05:00 8.2[facility] DytknikDILGOSQTYTTF0747-95-97 05:05:003.5[facility]n PICBCDXRAHDA5792-24-90 05:05:78804Zwrrakly TxwpunjXVLSKFSXSHLO4681-77-27 05:05:04625Rfxeiafa JormguaQBSYRMLHUDGO8516-59-70 05:05:0018[facility] OCWLJYNKXQDJ0877-35-49 05:05:40493Hyttomxa TcwnvqpLVDGEPYACJRL6073-43-05 05:05:0080[facility] RkbsynaYVRHPZZMTUFF4510-73-54 05:05:000.92[facility] JJGPQSBBTD9102-73-26 05:05:006.9[facility] BwqdbhuLCLTJNWRJC8822-90-42 05:05:001.9 [facility] KgqzdcyCNJKEGFDJG5649-45-39 05:05:000.8[facility]annHEMATOLOGY 2018-01-01 05:05:000.1[facility] CitkuvqVZUXYMHTTO4181-90-45 05:05:000.6[facility] DydmttlJIQBDMXMYV9193-84-18 05:05:0066.9[facility] EiutsjrMXZRNMAAGL9316-89-05 05:05:000.9[facility] PsjmjtjLHTBVPQWXW7885-16-33 05:05:005.6[facility] BBORHSSZZD6366-49-67 05:05:007.8[facility] WowlwqfCQZYWXSEEB1710-89-02 05:05:00 18.8[facility] RiozgbdTQXKZRLIKC5914-45-46 05:05:0014.3[facility]annHEMATOLOGY 2018-01-01 05:05:77187Tutgggjz SykhbajUHNDPZCLFT5182-26-22 05:05:008.2[facility] JqkyculBHIHDHDXBG8807-43-61 05:05:0010.3[facility] ExevmshTGTSYLFDQK3580-37-84 05:05:0033.9[facility] JalrrwdFOMSUVVKXR9662-40-68 05:05:004.35[facility] HKHJUCSFMG5358-57-08 05:05:0013.3[facility] LsfxegnDJNQJNBAQI4872-79-44 05:05:00 39.3[facility] MtlqcdmBVZBTRAFLE7395-84-84 05:05:0090.5[facility]annHEMATOLOGY 2018-01-01 05:05:00 Test Item Value Reference Range Interpretation Comments MCH (test code = MCH) 30.6 pg 27.0-31.0 [facility] AND ZPEYA6555-04-95 04:41:25422Bnetrumi HermannURINE AND GAEAQ1404-21-87 04:41:0085[facility] AND TIGIP5903-90-18 04:41:00 Moderate *ABN*(12/31/17 11:41 PM)[facility] KBGCL0856-52-73 04:41:004.0[facility] NAXOF2976-83-26 04:41:00 Test Item Value Reference Range Interpretation Comments UA pH (test code = UA pH) 7.0 1 5.0-8.0 [facility] SFCJC9642-65-57 04:41:00Moderate *ABN*(12/31/17 11:41 PM)[facility] TRLWR3290-96-17 04:41:0072[facility] JIACS0151-34-12 04:41:00Negative *NA*(12/31/17 11:41 PM)[facility] YOBYJ5680-39-14 04:41:00Negative (12/31/17 11:41 PM)[facility] RCLFF2036-02-06 04:41:00Slight *ABN*(12/31/17 11:41 PM)[facility] DSHOR4018-03-33 04:41:00 Test Item Value Reference Range Interpretation Comments UA Spec Grav (test code = UA Spec 1.018 1 Grav) [facility] TUDEJ0982-49-26 04:41:00Dark Yellow *NA*(12/31/17 11:41 PM)[facility] JjzyhayRVAANPXBJXVE9553-53-60 15:30:004.3[facility] ARHQMGJIAKVM7755-61-70 15:30:70389Dzmbemxm XqrhqkqEOZRHBUJIRCE6067-28-76 15:30:0028[facility] QmtvbjoABUJDTZWXZUN9952-84-04 15:30:009.8[facility] IRZCEDRSVOYP3376-80-74 15:30:66561Wobclaaf YntulmlLARXWIMAENXS5192-51-78 15:30:41657Cadbjrcy JqloaxdNEAIGRHGJVIR4258-16-25 15:30:0017[facility] AKSPIAPSIPHH6411-75-76 15:30:0063[facility] OufeqacFEJDIGIVXWFH9854-20-49 15:30:00 1.12[facility] IiexzwnCLGAUQDIGUCA5932-04-84 15:30:0012.3[facility] BZPIKDOMKW0997-06-39 15:30:0043.7[facility] MbaecizJVOHZOCZFB3964-92-91 15:30:00 14.7[facility]
[2021-03-15] MEDS: INSULIN -REGULAR HUMAN 50 UNIT/0.5 ML ML SQ SCH ×2 (16:30→21:00)
[2021-03-15] MEDS ORDERED: METFORMIN HCL 500 MG TAB PO SCH (17:00)
[2021-03-15] MEDS: glipiZIDE 5 MG TAB PO SCH (17:08)
[2021-03-15] MEDS: METFORMIN HCL 500 MG TAB PO SCH (17:09)
[2021-03-15] MEDS ORDERED: QUETIAPINE 25 MG TAB PO SCH (21:00)
[2021-03-15] MEDS: ATORVASTATIN 80 MG TAB PO SCH (21:02)
[2021-03-15] MEDS: POTASSIUM CL SA 10 MEQ TAB PO SCH (21:03)
[2021-03-15] MEDS: DONEPEZIL HCL 5 MG TAB PO SCH (21:03)
[2021-03-15] MEDS: carvediloL 6.25 MG TAB PO SCH (21:03)
[2021-03-15] MEDS: COMBIGAN OPTH SCH (21:03)
[2021-03-15] MEDS: APIXABAN 5 MG TABLET PO SCH (21:03)
[2021-03-15] MEDS: DORZOLAMIDE 2% OPTH (10 ML) OPTH SCH (21:04)
--- NOTE | 2021-03-16 06:10 | PN ---
I have been following Mr. Abisai Salinas who came in with CVA, has atrial fibrillation that is chroni c, intolerant to anticoagulants. However, because of this CVA, we will put him back on Eliquis. The re is a plan for him to have the Watchman's in the future once he gets rehabilitated. This cannot be done as an inpatient. The patient has to go through rehab first, and we will plan the Watchman as a n outpatient. Reason is he cannot tolerate anticoagulant because of bleeding and falling. For now, he is asymptomatic. Cardiac-jenkins, he is still in atrial fibrillation at rate of 81, but blood pressu re is adequate. He is afebrile. He is slowly recovering from stroke. [facility]. The case was discussed with Dr. Palomares. We will continue his Eliquis, Lipitor, carvedi lol. He is also on Aricept, Pepcid, folic acid. Neurology is following him. He is on insulin as we ll. He is on Namenda, Glucophage, potassium, Seroquel, Januvia, . I will be available for question if the need arises. Once he is able to be rehabbed then we will plan to see him in the off ice as an outpatient and set him up for a Watchman procedure. KARLA/SHONNA Voice ID: [id number] Report ID: [id number]
[2021-03-16 06:39] LABS: Absolute Lymphocytes (CBC) 1.8 K/uL (0.7-4.9); Hematocrit 30.9 % (39.6-49.0); Lymphocytes % 17.1 % (15.3-44.8); MPV 9.1 fL (7.6-11.3); RBC Red Blood Cell Count 3.27 M/uL (4.33-5.43)
[2021-03-16 06:55] LABS: Albumin 3.2 g/dL (3.4-5.0); Magnesium 1.9 mg/dL (1.8-2.4); Potassium 3.8 mmol/L (3.5-5.1); Prealbumin 13.3 mg/dL (20-40)
[2021-03-16] MEDS: INSULIN -REGULAR HUMAN 50 UNIT/0.5 ML ML SQ SCH ×4 (07:30→20:50)
[2021-03-16] MEDS ORDERED: ASCORBIC ACID 500 MG TABLET PO SCH (08:00)
[2021-03-16] MEDS: POTASSIUM CL SA 10 MEQ TAB PO SCH ×2 (08:37→20:49)
[2021-03-16] MEDS: SITAGLIPTIN PHOS 100 MG TAB PO SCH (08:39)
[2021-03-16] MEDS: VITAMIN D 1000 UNIT TAB PO SCH (08:40)
[2021-03-16] MEDS: FAMOTIDINE 20 MG TAB PO SCH (08:40)
[2021-03-16] MEDS: APIXABAN 5 MG TABLET PO SCH ×2 (08:40→20:49)
[2021-03-16] MEDS: MAGNESIUM OXIDE 400 MG TAB PO SCH (08:42)
[2021-03-16] MEDS: glipiZIDE 5 MG TAB PO SCH ×2 (08:42→17:03)
[2021-03-16] MEDS: COMBIGAN OPTH SCH ×2 (08:43→20:49)
[2021-03-16] MEDS: TRAVOPROST OPTH SCH (08:43)
[2021-03-16] MEDS: ZINC SULFATE 220 MG CAP PO SCH (08:43)
[2021-03-16] MEDS: FOLIC ACID 1 MG TABLET PO SCH (08:43)
[2021-03-16] MEDS: carvediloL 6.25 MG TAB PO SCH ×2 (08:44→20:50)
[2021-03-16] MEDS: DORZOLAMIDE 2% OPTH (10 ML) OPTH SCH ×2 (08:45→20:50)
[2021-03-16] MEDS: METFORMIN HCL 500 MG TAB PO SCH ×2 (09:06→17:03)
[2021-03-16] MEDS: MEMANTINE HCL 10 MG TABLET PO SCH (09:06)
[2021-03-16] MEDS ORDERED: DORZOLAMIDE 2% OPTH (10 ML) OPTH SCH (09:30)
[2021-03-16] MEDS: POLYETHYL GLY 3350 17 GM/DOSE PO PRN (10:12)
[2021-03-16] MEDS: DOCUSATE NA 100 MG CAP PO PRN (10:12)
[2021-03-16] MEDS ORDERED: BISACODYL 10 MG RECTAL SUPP PR PRN (15:09)
--- NOTE | 2021-03-16 17:25 | R.PN ---
PROGRESS NOTES ENCOUNTER DATE AND TIME: 03/16/2021 17:17 (CDT) NAME SALVADOR BRUNNER DATE OF : 1940 DATE OF ADMISSION: 03/15/2021 10:27 (CDT) acute cvaCHIEF COMPLAINT: Stroke with residual left sided weakness SUBJECTIVE: Pt denied any depression. Pt denied any Shortness of Breath. CBC with differential show normal WBC of 10.6, Hgb 10.6, Plt 297, glucose 93 to 197, prealbumin 13.3, UA is negative. Ambulated 780' with contact guard assistance using a rolling walker. VITAL SIGNS Temperature: 97.0 F SBP/DBP: 161/74 Pulse: 58 Resp: 14 MEDICATION ALLERGIES: No Known Drug Allergies (NKDA) ENVIRONMENTAL ALLERGIES: - Substance Allergies None Known - Other Allergies None Known NURSING: - Shower allowing shower - Bladder care per protocol - Skin care per protocol PRECAUTIONS: - Weight Bearing Precaution WBAT left LE ACTIVITIES OOB only with supervision THERAPIES: - Occupational Therapy Cognitive Retraining. Visual Perceptual Training. - Dietary and Nutrition Adequate Nutrition. Nutritional Education. Nutritional Supplements. - Speech Therapy Cognitive Training. Expressive Language Skills. Memory Strategies. Receptive Language Skills. Speech Intelligibility Training. PHYSICAL EXAM - Gen Alert and awake Lying in bed No apparent distress Oriented to: person, time, and place - Skin Mild bruising on the arms. Normacephalic - Eyes No abnormalities - ENMT No abnormalities - Neck No abnormalities - CVS RRR - Chest Clear - Abd + bowel sounds - GI Soft Deferred - No abnormalities - Ext No significant edema - MSK 3-4/5 weakness in right upper and 4+/5 in right lower extremity - Neuro 3-4/5 right upper extremity and 4/5 right lower extremity weakness. Decreased to light touch and temp erature or the right. - Psych Mild anxiety. ASSESSMENT: Pt. is a 80 yo Right-handed male.On 03/07/2021 Pt. presented to [facility] with sudden o nset of left-side weakness.On 03/15/2021 he was admitted to [facility] with diagnosis ac [place] cva.His impairment category is Stroke 01 - Left Body (Right Brain) (01.1).Pre-morbidly, Pt. was independent/mod-I in Locomotion, Balance, Safety Awareness, Transfers Control, Communication, and Julissa f-Care; and he had good Endurance and Sphincter Control.Currently, he has deficits of Locomotion, Saf ety Awareness, Balance, Transfers Control, Sphincter Control, Self-Care, Communication, and Endurance .Pt. is now referred to [facility] for acute in-patient rehabilitation in [facility] to maximize patient's functional independence in activities of daily living, strength, ROM, and mob ility.- Rehab Goal Patient has realistic goal of being discharged at assistance level 7-Ind to reside at Home with Fami ly/Relatives. MDM/PLAN: - Physical Therapy Gait dysfunction - to improve, our physical therapists will perform initial evaluation of pt's statu s upon admission and devise an individualized program for Gait Training, and Wheel Chair mobility Inability to transfer - to improve, our physical therapists will perform initial evaluation of pt's status upon admission and devise an individualized program for Bed mobility Need for home safety evaluation - to improve, our physical therapists will perform initial evaluatio n of pt's status upon admission and devise an individualized program for Home Evaluation Need in caregiver upon discharge - to improve, our physical therapists will perform initial evaluati on of pt's status upon admission and devise an individualized program for Caregiver Training New precaution - to improve, our physical therapists will perform initial evaluation of pt's status upon admission and devise an individualized program for Patient precaution education Edema - to improve, our physical therapists will perform initial evaluation of pt's status upon admis zackary and devise an individualized program for Elevation Training, and Lymphedema Therapy Poor balance - to improve, our physical therapists will perform initial evaluation of pt's status up on admission and devise an individualized program for Balance Training Poor endurance - to improve, our physical therapists will perform initial evaluation of pt's status upon admission and devise an individualized program for Endurance Training Weakness - to improve, our physical therapists will perform initial evaluation of pt's status upon a dmission and devise an individualized program for Aquatic Therapy, Neuromuscular Reeducation, and Str engthening Achieving independence - to improve, our physical therapists will perform initial evaluation of pt's status upon admission and devise an individualized program for Community Reintegration Activities - Occupational Therapy ADL deficits - to improve, our occupation therapists will perform initial evaluation of pt's status upon admission and devise an individualized program for Bathing, Bed mobility, Community Reintegratio n, Cooking, Dressing, Eating, Fine Motor Skills, Grooming, Homemaking, Kitchen Mobility, Laundry, Pat ient Education, Safety Awareness, Splinting - Positioning, Transfers(Toilet, Tub, Shower), and Wheel Chair Management Need for career orientation teacher - to improve, our occupation therapists will perform initial evaluation of pt's status upon admission and devise an individualized program for Caregiver Training Weakness - to improve, our occupation therapists will perform initial evaluation of pt's status upon admission and devise an individualized program for Aquatic Therapy, Balance, Endurance, UE ROM, and UE strengthening - Other See attached MAR (Medication Administration Record) - Diet Type Continue Regular - Diet - Liquid Texture Continue Regular - Tube Feed Continue N/A - Bladder care per protocol - Weight Bearing Precaution WBAT left LE - Skin care per protocol - Diet - Solid Texture Continue Regular - Shower allowing shower for Dementia, TBI, Stroke, or others FUNCTIONAL STATUS: UPDATED AT WEEKLY TEAM CONFERENCE - Bladder Same accident frequency: 7-Ind - No accidents in the past 7 days - Bowel Same accident frequency: 7-Ind - No accidents in the past 7 days - Walking Same score based on distance walked: 0(N/A) Same score based on distance walked: 2(50-149ft) - Wheelchair Same score based on distance traveled: 0(N/A) FUNCTIONAL STATUS: - Self-Care A. Eating Ind B. Grooming Edgardo C. Bathing Kelvin D. Dressing - Upper sup E. Dressing - Lower Kelvin F. Toileting Kelvin - Sphincter Control G. Bladder control Edgardo H. Bowel control Edgardo - Transfers Control I. Bed/Chair/Wheelchair Kelvin J. Toilet Kelvin K. Tub/Shower modA - Locomotion L. Walk/Wheelchair (B) Kelvin M. Stairs modA - Communication N. Comprehension (B) Edgardo O. Expression (B) Edgardo - Social Cognition P. Social Interaction Edgardo Q. Problem Solving sup R. Memory sup - Endurance Good - Balance Good - Safety Awareness Good QI SCORES: - Self-Care A. Eating 03-Partial/moderate assistance B. Oral hygiene 03-Partial/moderate assistance C. Toileting hygiene 02-Substantial/maximal assistance E. Shower/bathe self 02-Substantial/maximal assistance F. Upper body dressing 03-Partial/moderate assistance G. Lower body dressing 02-Substantial/maximal assistance H. Putting on/taking off footwear 88-Not attempted due to medical condition or safety concerns - Mobility A. Roll left and right 03-Partial/moderate assistance B. Sit to lying 03-Partial/moderate assistance C. Lying to sitting on side of bed 03-Partial/moderate assistance D. Sit to stand 03-Partial/moderate assistance E. Chair/hok-qx-ppxih transfer 03-Partial/moderate assistance F. Toilet transfer 03-Partial/moderate assistance G. Car transfer 88-Not attempted due to medical condition or safety concerns I. Walk 10 feet 03-Partial/moderate assistance J. Walk 50 feet with two turns 03-Partial/moderate assistance K. Walk 150 feet 88-Not attempted due to medical condition or safety concerns L. Walking 10 feet on uneven surfaces 88-Not attempted due to medical condition or safety concerns M. 1 step (curb) 88-Not attempted due to medical condition or safety concerns N. 4 steps 88-Not attempted due to medical condition or safety concerns O. 12 steps 88-Not attempted due to medical condition or safety concerns P. Picking up object 88-Not attempted due to medical condition or safety concerns R. Wheel 50 feet with two turns 88-Not attempted due to medical condition or safety concerns S. Wheel 150 feet 88-Not attempted due to medical condition or safety concerns - Bladder and Bowel Bladder continence Bowel continence - Endurance Fair - Balance Poor - Safety Awareness Fair CURRENT [facility]. DEFICITS: Self-Care, Mobility, Endurance, Balance, and Safety Awareness SIGNATURE PANEL: (CDT)
[2021-03-16] MEDS: ATORVASTATIN 80 MG TAB PO SCH (20:49)
[2021-03-16] MEDS: DONEPEZIL HCL 5 MG TAB PO SCH (20:49)
[2021-03-16] MEDS: DOCUSATE NA/SENNA CONC 1 TAB PO PRN (20:49)
[2021-03-17] MEDS: COMBIGAN OPTH SCH ×2 (07:14→20:17)
[2021-03-17] MEDS: TRAVOPROST OPTH SCH (07:14)
[2021-03-17] MEDS: DORZOLAMIDE 2% OPTH (10 ML) OPTH SCH ×2 (07:14→20:18)
[2021-03-17] MEDS: INSULIN -REGULAR HUMAN 50 UNIT/0.5 ML ML SQ SCH ×4 (07:30→21:00)
[2021-03-17] MEDS: SITAGLIPTIN PHOS 100 MG TAB PO SCH (07:48)
[2021-03-17] MEDS: MAGNESIUM OXIDE 400 MG TAB PO SCH (07:48)
[2021-03-17] MEDS: ZINC SULFATE 220 MG CAP PO SCH (07:48)
[2021-03-17] MEDS: VITAMIN D 1000 UNIT TAB PO SCH (07:49)
[2021-03-17] MEDS: ASCORBIC ACID 500 MG TABLET PO SCH (07:49)
[2021-03-17] MEDS: METFORMIN HCL 500 MG TAB PO SCH ×3 (07:49→17:00)
[2021-03-17] MEDS: glipiZIDE 5 MG TAB PO SCH ×3 (07:50→17:00)
[2021-03-17] MEDS: FOLIC ACID 1 MG TABLET PO SCH (07:50)
[2021-03-17] MEDS: carvediloL 6.25 MG TAB PO SCH ×2 (07:50→20:17)
[2021-03-17] MEDS: FAMOTIDINE 20 MG TAB PO SCH (07:50)
[2021-03-17] MEDS: POTASSIUM CL SA 10 MEQ TAB PO SCH ×2 (07:50→20:18)
[2021-03-17] MEDS: MEMANTINE HCL 10 MG TABLET PO SCH (07:51)
[2021-03-17] MEDS: APIXABAN 5 MG TABLET PO SCH ×2 (07:51→20:18)
--- NOTE | 2021-03-17 09:57 | P.RH.PN ---
Estimated Length of Stay: 14 Expected Discharge Date: 03/29/21 Discharge Disposition Plan: Home Family Support: Yes Group Home Goal: Mobility, Transfers, Self Care Vital Signs: Last Vital Signs Temp 97 F 03/17/21 07:28 Pulse 57 03/17/21 07:50 Resp 18 03/17/21 07:28 BP 130/53 L 03/17/21 07:50 Pulse Ox 96 03/17/21 07:28 Laboratory: Laboratory Last Values WBC 10.60 K/uL (4.3-10.9) D 03/16/21 06:16 RBC 3.27 M/uL (4.33-5.43) L 03/16/21 06:16 Hgb 10.6 g/dL (13.6-17.9) L 03/16/21 06:16 Hct 30.9 % (39.6-49.0) L 03/16/21 06:16 MCV 94.4 fL (80-100) 03/16/21 06:16 MCH 32.3 pg (27.0-35.0) 03/16/21 06:16 MCHC 34.2 g/dL (32.0-36.0) 03/16/21 06:16 RDW 13.7 % (12.1-15.2) 03/16/21 06:16 Plt Count 297 K/uL (152-406) 03/16/21 06:16 MPV 9.1 fL (7.6-11.3) 03/16/21 06:16 Neutrophils % 69.8 % (41.7-73.7) 03/16/21 06:16 Lymphocytes % 17.1 % (15.3-44.8) 03/16/21 06:16 Monocytes % 6.8 % (3.3-12.3) 03/16/21 06:16 Eosinophils % 5.3 % (0-4.4) H 03/16/21 06:16 Basophils % 1.0 % (0-1.3) 03/16/21 06:16 Absolute Neutrophils 7.4 K/uL (1.8-8.0) 03/16/21 06:16 Absolute Lymphocytes 1.8 K/uL (0.7-4.9) 03/16/21 06:16 Absolute Monocytes 0.7 K/uL (0.1-1.3) 03/16/21 06:16 Absolute Eosinophils 0.6 K/uL (0-0.5) H 03/16/21 06:16 Absolute Basophils 0.1 K/uL (0-0.5) 03/16/21 06:16 Sodium 142 mmol/L (136-145) 03/16/21 06:16 Potassium 3.8 mmol/L (3.5-5.1) 03/16/21 06:16 Chloride 109 mmol/L (98-107) H 03/16/21 06:16 Carbon Dioxide 28 mmol/L (21-32) 03/16/21 06:16 BUN 14 mg/dL (7-18) 03/16/21 06:16 Creatinine 0.91 mg/dL (0.55-1.3) 03/16/21 06:16 Estimated GFR 80 mL/min (=/>90) L 03/16/21 06:16 Glucose 99 mg/dL (74-106) 03/16/21 06:16 POC Glucose 77 mg/dL (65-120) 03/17/21 07:21 Calcium 9.0 mg/dL (8.5-10.1) 03/16/21 06:16 Magnesium 1.9 mg/dL (1.8-2.4) 03/16/21 06:16 Albumin 3.2 g/dL (3.4-5.0) L 03/16/21 06:16 Prealbumin 13.3 mg/dL (20-40) L 03/16/21 06:16 Urine Color Yellow (Yellow) 03/15/21 12:25 Urine Appearance Clear (Clear) 03/15/21 12:25 Urine pH 7.0 (5.0-7.0) 03/15/21 12:25 Ur Specific [place] 1.010 (1.005-1.030) 03/15/21 12:25 Glucose (UA)(Auto) Trace (Negative) 03/15/21 12:25 Urine Ketones Negative (Negative) 03/15/21 12:25 Urine Blood Negative (Negative) 03/15/21 12:25 Urine Nitrite Negative (Negative) 03/15/21 12:25 Urine Bilirubin Negative (Negative) 03/15/21 12:25 Urine Urobilinogen 1.0 mg/dL (0.2-1.0) 03/15/21 12:25 Ur Leukocyte Esterase Negative (Negative) 03/15/21 12:25 Urine RBC <5 /HPF (NONE SEEN) 03/15/21 12:25 Urine WBC <5 /HPF (<5) 03/15/21 12:25 Ur Squamous Epith Cells <5 /HPF (NONE SEEN) 03/15/21 12:25 Urine Bacteria <20 /HPF (NONE SEEN) 03/15/21 12:25 Urine Culture Reflexed Not needed 03/15/21 12:25 Urine Total Protein Negative (Negative) 03/15/21 12:25 Weight: 176 lb Wound Present: No Closed Surgical Incision Present: No Negative Pressure Wound Therapy Present: No Physician Update: He is a max assistance with ADLs due to poor comprehension. 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 He requires a lot of repeating to answer questions. He is walking 150' and needs ques to upright posture and hand placement at contact guard. Summary: Patient's care plan and m[facility]p goals have been reviewed and revised as necessary. Please see the Rehabilitation Signature page for all necessary signatures.
[2021-03-17] MEDS ORDERED: MAGNESIUM CITRATE 300 ML BOT PO SCH (14:00)
[2021-03-17] MEDS: ATORVASTATIN 80 MG TAB PO SCH (20:16)
[2021-03-17] MEDS: DOCUSATE NA/SENNA CONC 1 TAB PO PRN (20:19)
[2021-03-17] MEDS: DONEPEZIL HCL 5 MG TAB PO SCH (20:19)
[2021-03-18] MEDS: carvediloL 6.25 MG TAB PO SCH ×2 (07:11→19:58)
[2021-03-18] MEDS: INSULIN -REGULAR HUMAN 50 UNIT/0.5 ML ML SQ SCH ×4 (07:30→19:59)
[2021-03-18] MEDS: DORZOLAMIDE 2% OPTH (10 ML) OPTH SCH ×2 (07:56→19:57)
[2021-03-18] MEDS: TRAVOPROST OPTH SCH (07:56)
[2021-03-18] MEDS: METFORMIN HCL 500 MG TAB PO SCH ×2 (07:56→17:32)
[2021-03-18] MEDS: SITAGLIPTIN PHOS 100 MG TAB PO SCH (07:56)
[2021-03-18] MEDS: COMBIGAN OPTH SCH ×2 (07:56→19:57)
[2021-03-18] MEDS: glipiZIDE 5 MG TAB PO SCH ×2 (07:56→17:32)
[2021-03-18] MEDS: ASCORBIC ACID 500 MG TABLET PO SCH (07:57)
[2021-03-18] MEDS: ZINC SULFATE 220 MG CAP PO SCH (07:57)
[2021-03-18] MEDS: APIXABAN 5 MG TABLET PO SCH ×2 (07:57→19:58)
[2021-03-18] MEDS: MEMANTINE HCL 10 MG TABLET PO SCH (07:57)
[2021-03-18] MEDS: FOLIC ACID 1 MG TABLET PO SCH (07:58)
[2021-03-18] MEDS: VITAMIN D 1000 UNIT TAB PO SCH (07:58)
[2021-03-18] MEDS: MAGNESIUM OXIDE 400 MG TAB PO SCH (07:58)
[2021-03-18] MEDS: FAMOTIDINE 20 MG TAB PO SCH (07:58)
[2021-03-18] MEDS: POTASSIUM CL SA 10 MEQ TAB PO SCH ×2 (07:58→19:57)
[2021-03-18] MEDS: ATORVASTATIN 80 MG TAB PO SCH (19:58)
[2021-03-18] MEDS: DONEPEZIL HCL 5 MG TAB PO SCH (19:58)
[2021-03-19] MEDS: COMBIGAN OPTH SCH ×2 (07:20→19:24)
[2021-03-19] MEDS: TRAVOPROST OPTH SCH (07:20)
[2021-03-19] MEDS: DORZOLAMIDE 2% OPTH (10 ML) OPTH SCH ×2 (07:20→19:24)
[2021-03-19] MEDS: INSULIN -REGULAR HUMAN 50 UNIT/0.5 ML ML SQ SCH ×4 (07:30→19:24)
[2021-03-19] MEDS: METFORMIN HCL 500 MG TAB PO SCH ×2 (07:41→17:00)
[2021-03-19] MEDS: glipiZIDE 5 MG TAB PO SCH ×2 (07:41→17:00)
[2021-03-19] MEDS: SITAGLIPTIN PHOS 100 MG TAB PO SCH (07:42)
[2021-03-19] MEDS: VITAMIN D 1000 UNIT TAB PO SCH (07:42)
[2021-03-19] MEDS: MAGNESIUM OXIDE 400 MG TAB PO SCH (07:42)
[2021-03-19] MEDS: FOLIC ACID 1 MG TABLET PO SCH (07:42)
[2021-03-19] MEDS: carvediloL 6.25 MG TAB PO SCH ×2 (07:42→19:23)
[2021-03-19] MEDS: FAMOTIDINE 20 MG TAB PO SCH (07:43)
[2021-03-19] MEDS: MEMANTINE HCL 10 MG TABLET PO SCH (07:43)
[2021-03-19] MEDS: ASCORBIC ACID 500 MG TABLET PO SCH (07:43)
[2021-03-19] MEDS: ZINC SULFATE 220 MG CAP PO SCH (07:43)
[2021-03-19] MEDS: APIXABAN 5 MG TABLET PO SCH ×2 (07:44→19:23)
[2021-03-19] MEDS: POTASSIUM CL SA 10 MEQ TAB PO SCH ×2 (07:44→19:24)
[2021-03-19] MEDS: ATORVASTATIN 80 MG TAB PO SCH (19:23)
[2021-03-19] MEDS: DONEPEZIL HCL 5 MG TAB PO SCH (19:24)
[2021-03-20] MEDS: INSULIN -REGULAR HUMAN 50 UNIT/0.5 ML ML SQ SCH ×4 (07:30→20:33)
[2021-03-20] MEDS: VITAMIN D 1000 UNIT TAB PO SCH (08:10)
[2021-03-20] MEDS: SITAGLIPTIN PHOS 100 MG TAB PO SCH (08:10)
[2021-03-20] MEDS: ZINC SULFATE 220 MG CAP PO SCH (08:10)
[2021-03-20] MEDS: MAGNESIUM OXIDE 400 MG TAB PO SCH (08:11)
[2021-03-20] MEDS: POTASSIUM CL SA 10 MEQ TAB PO SCH ×2 (08:11→19:24)
[2021-03-20] MEDS: FAMOTIDINE 20 MG TAB PO SCH (08:11)
[2021-03-20] MEDS: APIXABAN 5 MG TABLET PO SCH ×2 (08:12→19:24)
[2021-03-20] MEDS: MEMANTINE HCL 10 MG TABLET PO SCH (08:12)
[2021-03-20] MEDS: FOLIC ACID 1 MG TABLET PO SCH (08:12)
[2021-03-20] MEDS: glipiZIDE 5 MG TAB PO SCH (08:13)
[2021-03-20] MEDS: carvediloL 6.25 MG TAB PO SCH ×2 (08:13→19:24)
[2021-03-20] MEDS: TRAVOPROST OPTH SCH (08:18)
[2021-03-20] MEDS: COMBIGAN OPTH SCH ×2 (08:18→19:25)
[2021-03-20] MEDS: ASCORBIC ACID 500 MG TABLET PO SCH (08:18)
[2021-03-20] MEDS: DORZOLAMIDE 2% OPTH (10 ML) OPTH SCH ×2 (08:18→19:25)
[2021-03-20] MEDS: METFORMIN HCL 500 MG TAB PO SCH ×2 (08:52→16:20)
[2021-03-20 10:54] LABS: Potassium 4.4 mmol/L (3.5-5.1)
[2021-03-20] MEDS ORDERED: glipiZIDE 5 MG TAB PO SCH (17:00)
--- NOTE | 2021-03-20 17:56 | R.PN ---
PROGRESS NOTES ENCOUNTER DATE AND TIME: 03/20/2021 17:53 (CDT) NAME SALVADOR BRUNNER DATE OF : 1940 DATE OF ADMISSION: 03/15/2021 10:27 (CDT) acute cvaCHIEF COMPLAINT: Stroke with residual left sided weakness SUBJECTIVE: Pt denied any depression. Pt denied any Shortness of Breath. CBC with differential show normal WBC of 10.6, Hgb 10.6, Plt 297, glucose 76 to 148, prealbumin 13.3, UA is negative. Ambulated 550' with contact guard assistance using a rolling walker. Up and down 25 stairs with tom dby assistance. VITAL SIGNS Temperature: 97.5 F SBP/DBP: 147/64 Pulse: 62 Resp: 16 MEDICATION ALLERGIES: No Known Drug Allergies (NKDA) ENVIRONMENTAL ALLERGIES: - Substance Allergies None Known - Other Allergies None Known NURSING: - Shower allowing shower - Bladder care per protocol - Skin care per protocol PRECAUTIONS: - Weight Bearing Precaution WBAT left LE ACTIVITIES OOB only with supervision THERAPIES: - Occupational Therapy Cognitive Retraining. Visual Perceptual Training. - Dietary and Nutrition Adequate Nutrition. Nutritional Education. Nutritional Supplements. - Speech Therapy Cognitive Training. Expressive Language Skills. Memory Strategies. Receptive Language Skills. Speech Intelligibility Training. PHYSICAL EXAM - Gen Alert and awake Lying in bed No apparent distress Oriented to: person, time, and place - Skin Mild bruising on the arms. Normacephalic - Eyes No abnormalities - ENMT No abnormalities - Neck No abnormalities - CVS RRR - Chest Clear - Abd + bowel sounds - GI Soft Deferred - No abnormalities - Ext No significant edema - MSK 3-4/5 weakness in right upper and 4+/5 in right lower extremity - Neuro 3-4/5 right upper extremity and 4/5 right lower extremity weakness. Decreased to light touch and temp erature or the right. - Psych Mild anxiety. ASSESSMENT: Pt. is a 80 yo Right-handed male.On 03/07/2021 Pt. presented to [facility] with sudden o nset of left-side weakness.On 03/15/2021 he was admitted to [facility] with diagnosis ac chetna cva.His impairment category is Stroke 01 - Left Body (Right Brain) (01.1).Pre-morbidly, Pt. was independent/mod-I in Locomotion, Balance, Safety Awareness, Transfers Control, Communication, and Julissa f-Care; and he had good Endurance and Sphincter Control.Currently, he has deficits of Locomotion, Saf ety Awareness, Balance, Transfers Control, Sphincter Control, Self-Care, Communication, and Endurance .Pt. is now referred to [facility] for acute in-patient rehabilitation in [facility] to maximize patient's functional independence in activities of daily living, strength, ROM, and mob ility.- Rehab Goal Patient has realistic goal of being discharged at assistance level 7-Ind to reside at Home with Fami ly/Relatives. MDM/PLAN: - Physical Therapy Gait dysfunction - to improve, our physical therapists will perform initial evaluation of pt's statu s upon admission and devise an individualized program for Gait Training, and Wheel Chair mobility Inability to transfer - to improve, our physical therapists will perform initial evaluation of pt's status upon admission and devise an individualized program for Bed mobility Need for home safety evaluation - to improve, our physical therapists will perform initial evaluatio n of pt's status upon admission and devise an individualized program for Home Evaluation Need in caregiver upon discharge - to improve, our physical therapists will perform initial evaluati on of pt's status upon admission and devise an individualized program for Caregiver Training New precaution - to improve, our physical therapists will perform initial evaluation of pt's status upon admission and devise an individualized program for Patient precaution education Edema - to improve, our physical therapists will perform initial evaluation of pt's status upon admi ssion and devise an individualized program for Elevation Training, and Lymphedema Therapy Poor balance - to improve, our physical therapists will perform initial evaluation of pt's status up on admission and devise an individualized program for Balance Training Poor endurance - to improve, our physical therapists will perform initial evaluation of pt's status upon admission and devise an individualized program for Endurance Training Weakness - to improve, our physical therapists will perform initial evaluation of pt's status upon a dmission and devise an individualized program for Aquatic Therapy, Neuromuscular Reeducation, and Str engthening Achieving independence - to improve, our physical therapists will perform initial evaluation of pt's status upon admission and devise an individualized program for Community Reintegration Activities - Occupational Therapy ADL deficits - to improve, our occupation therapists will perform initial evaluation of pt's status upon admission and devise an individualized program for Bathing, Bed mobility, Community Reintegratio n, Cooking, Dressing, Eating, Fine Motor Skills, Grooming, Homemaking, Kitchen Mobility, Laundry, Pat ient Education, Safety Awareness, Splinting - Positioning, Transfers(Toilet, Tub, Shower), and Wheel Chair Management Need for sub acute care nurse - to improve, our occupation therapists will perform initial evaluation of pt's status upon admission and devise an individualized program for Caregiver Training Weakness - to improve, our occupation therapists will perform initial evaluation of pt's status upon admission and devise an individualized program for Aquatic Therapy, Balance, Endurance, UE ROM, and UE strengthening - Other See attached MAR (Medication Administration Record) - Diet Type Continue Regular - Diet - Liquid Texture Continue Regular - Tube Feed Continue N/A - Bladder care per protocol - Weight Bearing Precaution WBAT left LE - Skin care per protocol - Diet - Solid Texture Continue Regular - Shower allowing shower for Dementia, TBI, Stroke, or others FUNCTIONAL STATUS: UPDATED AT WEEKLY TEAM CONFERENCE - Bladder Same accident frequency: 7-Ind - No accidents in the past 7 days - Bowel Same accident frequency: 7-Ind - No accidents in the past 7 days - Walking Same score based on distance walked: 0(N/A) Same score based on distance walked: 2(50-149ft) - Wheelchair Same score based on distance traveled: 0(N/A) FUNCTIONAL STATUS: - Self-Care A. Eating Ind B. Grooming Edgardo C. Bathing Kelvin D. Dressing - Upper sup E. Dressing - Lower Kelvin F. Toileting Kelvin - Sphincter Control G. Bladder control Edgardo H. Bowel control Edgarod - Transfers Control I. Bed/Chair/Wheelchair Kelvin J. Toilet Kelvin K. Tub/Shower modA - Locomotion L. Walk/Wheelchair (B) Kelvin M. Stairs modA - Communication N. Comprehension (B) Edgardo O. Expression (B) Edgardo - Social Cognition P. Social Interaction Edgardo Q. Problem Solving sup R. Memory sup - Endurance Good - Balance Good - Safety Awareness Good QI SCORES: - Self-Care A. Eating 03-Partial/moderate assistance B. Oral hygiene 03-Partial/moderate assistance C. Toileting hygiene 02-Substantial/maximal assistance E. Shower/bathe self 02-Substantial/maximal assistance F. Upper body dressing 03-Partial/moderate assistance G. Lower body dressing 02-Substantial/maximal assistance H. Putting on/taking off footwear 88-Not attempted due to medical condition or safety concerns - Mobility A. Roll left and right 03-Partial/moderate assistance B. Sit to lying 03-Partial/moderate assistance C. Lying to sitting on side of bed 03-Partial/moderate assistance D. Sit to stand 03-Partial/moderate assistance E. Chair/ffh-pi-cjjdy transfer 03-Partial/moderate assistance F. Toilet transfer 03-Partial/moderate assistance G. Car transfer 88-Not attempted due to medical condition or safety concerns I. Walk 10 feet 03-Partial/moderate assistance J. Walk 50 feet with two turns 03-Partial/moderate assistance K. Walk 150 feet 88-Not attempted due to medical condition or safety concerns L. Walking 10 feet on uneven surfaces 88-Not attempted due to medical condition or safety concerns M. 1 step (curb) 88-Not attempted due to medical condition or safety concerns N. 4 steps 88-Not attempted due to medical condition or safety concerns O. 12 steps 88-Not attempted due to medical condition or safety concerns P. Picking up object 88-Not attempted due to medical condition or safety concerns R. Wheel 50 feet with two turns 88-Not attempted due to medical condition or safety concerns S. Wheel 150 feet 88-Not attempted due to medical condition or safety concerns - Bladder and Bowel Bladder continence Bowel continence - Endurance Fair - Balance Poor - Safety Awareness Fair [facility] DEFICITS: Self-Care, Mobility, Endurance, Balance, and Safety Awareness SIGNATURE PANEL: (CDT)
[2021-03-20] MEDS: ATORVASTATIN 80 MG TAB PO SCH (19:24)
[2021-03-20] MEDS: DONEPEZIL HCL 5 MG TAB PO SCH (19:24)
[2021-03-21] MEDS: COMBIGAN OPTH SCH ×2 (06:28→20:00)
[2021-03-21] MEDS: TRAVOPROST OPTH SCH (07:00)
[2021-03-21] MEDS: INSULIN -REGULAR HUMAN 50 UNIT/0.5 ML ML SQ SCH ×4 (07:01→21:00)
[2021-03-21] MEDS: SITAGLIPTIN PHOS 100 MG TAB PO SCH (08:27)
[2021-03-21] MEDS: ZINC SULFATE 220 MG CAP PO SCH (08:27)
[2021-03-21] MEDS: MEMANTINE HCL 10 MG TABLET PO SCH ×2 (08:28→21:25)
[2021-03-21] MEDS: ASCORBIC ACID 500 MG TABLET PO SCH (08:28)
[2021-03-21] MEDS: MAGNESIUM OXIDE 400 MG TAB PO SCH (08:28)
[2021-03-21] MEDS: APIXABAN 5 MG TABLET PO SCH ×2 (08:28→21:24)
[2021-03-21] MEDS: METFORMIN HCL 500 MG TAB PO SCH ×2 (08:28→17:25)
[2021-03-21] MEDS: VITAMIN D 1000 UNIT TAB PO SCH (08:28)
[2021-03-21] MEDS: POTASSIUM CL SA 10 MEQ TAB PO SCH ×2 (08:29→21:24)
[2021-03-21] MEDS: FOLIC ACID 1 MG TABLET PO SCH (08:29)
[2021-03-21] MEDS: FAMOTIDINE 20 MG TAB PO SCH (08:29)
[2021-03-21] MEDS: DORZOLAMIDE 2% OPTH (10 ML) OPTH SCH ×2 (08:30→21:25)
[2021-03-21] MEDS: carvediloL 6.25 MG TAB PO SCH (10:06)
[2021-03-21] MEDS: carvediloL 3.125 MG TAB PO SCH (17:25)
--- NOTE | 2021-03-21 17:50 | R.PN ---
PROGRESS NOTES ENCOUNTER DATE AND TIME: 03/21/2021 17:45 (CDT) NAME SALVADOR BRUNNER DATE OF : 1940 DATE OF ADMISSION: 03/15/2021 10:27 (CDT) acute cvaCHIEF COMPLAINT: Stroke with residual left sided weakness SUBJECTIVE: Pt denied any depression. Pt denied any Shortness of Breath. CBC with differential show normal WBC of 10.6, Hgb 10.6, Plt 297, glucose 106 to 178, prealbumin 13.3 , UA is negative. Ambulated 475' with standby assistance using a rolling walker. Up and down 25 stairs with standby to contact guard assistance. VITAL SIGNS Temperature: 97.5 F SBP/DBP: 167/74 Pulse: 58 Resp: 16 MEDICATION ALLERGIES: No Known Drug Allergies (NKDA) ENVIRONMENTAL ALLERGIES: - Substance Allergies None Known - Other Allergies None Known NURSING: - Shower allowing shower - Bladder care per protocol - Skin care per protocol PRECAUTIONS: - Weight Bearing Precaution WBAT left LE ACTIVITIES OOB only with supervision THERAPIES: - Occupational Therapy Cognitive Retraining. Visual Perceptual Training. - Dietary and Nutrition Adequate Nutrition. Nutritional Education. Nutritional Supplements. - Speech Therapy Cognitive Training. Expressive Language Skills. Memory Strategies. Receptive Language Skills. Speech Intelligibility Training. PHYSICAL EXAM - Gen Alert and awake Lying in bed No apparent distress Oriented to: person, time, and place - Skin Mild bruising on the arms. Normacephalic - Eyes No abnormalities - ENMT No abnormalities - Neck No abnormalities - CVS RRR - Chest Clear - Abd + bowel sounds - GI Soft Deferred - No abnormalities - Ext No significant edema - MSK 3-4/5 weakness in right upper and 4+/5 in right lower extremity - Neuro 3-4/5 right upper extremity and 4/5 right lower extremity weakness. Decreased to light touch and temp erature or the right. - Psych Mild anxiety. ASSESSMENT: Pt. is a 80 yo Right-handed male.On 03/07/2021 Pt. presented to [facility] with sudden o nset of left-side weakness.On 03/15/2021 he was admitted to [facility] with diagnosis ac chetna cva.His impairment category is Stroke 01 - Left Body (Right Brain) (01.1).Pre-morbidly, Pt. was independent/mod-I in Locomotion, Balance, Safety Awareness, Transfers Control, Communication, and Julissa f-Care; and he had good Endurance and Sphincter Control.Currently, he has deficits of Locomotion, Saf ety Awareness, Balance, Transfers Control, Sphincter Control, Self-Care, Communication, and Endurance .Pt. is now [facility] to [facility] to maximize patient's functional independence in activities of daily living, strength, ROM, and mob ility.- Rehab Goal Patient has realistic goal of being discharged at assistance level 7-Ind to reside at Home with Fami ly/Relatives. MDM/PLAN: - Physical Therapy Gait dysfunction - to improve, our physical therapists will perform initial evaluation of pt's statu s upon admission and devise an individualized program for Gait Training, and Wheel Chair mobility Inability to transfer - to improve, our physical therapists will perform initial evaluation of pt's status upon admission and devise an individualized program for Bed mobility Need for home safety evaluation - to improve, our physical therapists will perform initial evaluatio n of pt's status upon admission and devise an individualized program for Home Evaluation Need in caregiver upon discharge - to improve, our physical therapists will perform initial evaluati on of pt's status upon admission and devise an individualized program for Caregiver Training New precaution - to improve, our physical therapists will perform initial evaluation of pt's status upon admission and devise an individualized program for Patient precaution education Edema - to improve, our physical therapists will perform initial evaluation of pt's status upon admi ssion and devise an individualized program for Elevation Training, and Lymphedema Therapy Poor balance - to improve, our physical therapists will perform initial evaluation of pt's status up on admission and devise an individualized program for Balance Training Poor endurance - to improve, our physical therapists will perform initial evaluation of pt's status upon admission and devise an individualized program for Endurance Training Weakness - to improve, our physical therapists will perform initial evaluation of pt's status upon a dmission and devise an individualized program for Aquatic Therapy, Neuromuscular Reeducation, and Str engthening Achieving independence - to improve, our physical therapists will perform initial evaluation of pt's status upon admission and devise an individualized program for Community Reintegration Activities - Occupational Therapy ADL deficits - to improve, our occupation therapists will perform initial evaluation of pt's status upon admission and devise an individualized program for Bathing, Bed mobility, Community Reintegratio n, Cooking, Dressing, Eating, Fine Motor Skills, Grooming, Homemaking, Kitchen Mobility, Laundry, Pat ient Education, Safety Awareness, Splinting - Positioning, Transfers(Toilet, Tub, Shower), and Wheel Chair Management Need for child care attendant school - to improve, our occupation therapists will perform initial evaluation of pt's status upon admission and devise an individualized program for Caregiver Training Weakness - to improve, our occupation therapists will perform initial evaluation of pt's status upon admission and devise an individualized program for Aquatic Therapy, Balance, Endurance, UE ROM, and UE strengthening - Other See attached MAR (Medication Administration Record) - Diet Type Continue Regular - Diet - Liquid Texture Continue Regular - Tube Feed Continue N/A - Bladder care per protocol - Weight Bearing Precaution WBAT left LE - Skin care per protocol - Diet - Solid Texture Continue Regular - Shower allowing shower for Dementia, TBI, Stroke, or others FUNCTIONAL STATUS: UPDATED AT WEEKLY TEAM CONFERENCE - Bladder Same accident frequency: 7-Ind - No accidents in the past 7 days - Bowel Same accident frequency: 7-Ind - No accidents in the past 7 days - Walking Same score based on distance walked: 0(N/A) Same score based on distance walked: 2(50-149ft) - Wheelchair Same score based on distance traveled: 0(N/A) FUNCTIONAL STATUS: - Self-Care A. Eating Ind B. Grooming Edgardo C. Bathing Kelvin D. Dressing - Upper sup E. Dressing - Lower Kelvin F. Toileting Kelvin - Sphincter Control G. Bladder control Edgardo H. Bowel control Edgardo - Transfers Control I. Bed/Chair/Wheelchair Kelvin J. Toilet Kelvin K. Tub/Shower modA - Locomotion L. Walk/Wheelchair (B) Kelvin M. Stairs modA - Communication N. Comprehension (B) Edgardo O. Expression (B) Edgardo - Social Cognition P. Social Interaction Edgardo Q. Problem Solving sup R. Memory sup - Endurance Good - Balance Good - Safety Awareness Good QI SCORES: - Self-Care A. Eating 03-Partial/moderate assistance B. Oral hygiene 03-Partial/moderate assistance C. Toileting hygiene 02-Substantial/maximal assistance E. Shower/bathe self 02-Substantial/maximal assistance F. Upper body dressing 03-Partial/moderate assistance G. Lower body dressing 02-Substantial/maximal assistance H. Putting on/taking off footwear 88-Not attempted due to medical condition or safety concerns - Mobility A. Roll left and right 03-Partial/moderate assistance B. Sit to lying 03-Partial/moderate assistance C. Lying to sitting on side of bed 03-Partial/moderate assistance D. Sit to stand 03-Partial/moderate assistance E. Chair/[id number] transfer 03-Partial/moderate assistance F. Toilet transfer 03-Partial/moderate assistance G. Car transfer 88-Not attempted due to medical condition or safety concerns I. Walk 10 feet 03-Partial/moderate assistance J. Walk 50 feet with two turns 03-Partial/moderate assistance K. Walk 150 feet 88-Not attempted due to medical condition or safety concerns L. Walking 10 feet on uneven surfaces 88-Not attempted due to medical condition or safety concerns M. 1 step (curb) 88-Not attempted due to medical condition or safety concerns N. 4 steps 88-Not attempted due to medical condition or safety concerns O. 12 steps 88-Not attempted due to medical condition or safety concerns P. Picking up object 88-Not attempted due to medical condition or safety concerns R. Wheel 50 feet with two turns 88-Not attempted due to medical condition or safety concerns S. Wheel 150 feet 88-Not attempted due to medical condition or safety concerns - Bladder and Bowel Bladder continence Bowel continence - Endurance Fair - Balance Poor - Safety Awareness Fair [facility] DEFICITS: Self-Care, Mobility, Endurance, Balance, and Safety Awareness SIGNATURE PANEL: (CDT)
[2021-03-21] MEDS ORDERED: carvediloL 6.25 MG TAB PO SCH (20:00)
[2021-03-21] MEDS: MELATONIN 3 MG TABLET PO PRN (21:24)
[2021-03-21] MEDS: DONEPEZIL HCL 5 MG TAB PO SCH (21:24)
[2021-03-21] MEDS: ATORVASTATIN 80 MG TAB PO SCH (21:24)
[2021-03-22] MEDS: carvediloL 3.125 MG TAB PO SCH ×2 (05:26→16:56)
[2021-03-22] MEDS: DORZOLAMIDE 2% OPTH (10 ML) OPTH SCH ×2 (07:11→18:54)
[2021-03-22] MEDS: TRAVOPROST OPTH SCH (07:12)
[2021-03-22] MEDS: COMBIGAN OPTH SCH ×2 (07:13→18:54)
[2021-03-22] MEDS: INSULIN -REGULAR HUMAN 50 UNIT/0.5 ML ML SQ SCH ×4 (07:30→20:05)
[2021-03-22] MEDS: ASCORBIC ACID 500 MG TABLET PO SCH (08:19)
[2021-03-22] MEDS: MAGNESIUM OXIDE 400 MG TAB PO SCH (08:20)
[2021-03-22] MEDS: ZINC SULFATE 220 MG CAP PO SCH (08:20)
[2021-03-22] MEDS: VITAMIN D 1000 UNIT TAB PO SCH (08:20)
[2021-03-22] MEDS: FOLIC ACID 1 MG TABLET PO SCH (08:20)
[2021-03-22] MEDS: APIXABAN 5 MG TABLET PO SCH ×2 (08:20→18:53)
[2021-03-22] MEDS: POTASSIUM CL SA 10 MEQ TAB PO SCH ×2 (08:20→18:53)
[2021-03-22] MEDS: MEMANTINE HCL 10 MG TABLET PO SCH ×2 (08:20→18:53)
[2021-03-22] MEDS: FAMOTIDINE 20 MG TAB PO SCH (08:20)
[2021-03-22] MEDS: METFORMIN HCL 500 MG TAB PO SCH ×2 (08:51→16:57)
[2021-03-22] MEDS: SITAGLIPTIN PHOS 100 MG TAB PO SCH (08:51)
--- NOTE | 2021-03-22 18:30 | R.PN ---
PROGRESS NOTES ENCOUNTER DATE AND TIME: 03/22/2021 18:27 (CDT) NAME SALVADOR BRUNNER DATE OF : 1940 DATE OF ADMISSION: 03/15/2021 10:27 (CDT) acute cvaCHIEF COMPLAINT: Stroke with residual left sided weakness SUBJECTIVE: Pt denied any depression. Pt denied any Shortness of Breath. CBC with differential show normal WBC of 10.6, Hgb 10.6, Plt 297, glucose 111 to 120, prealbumin 13.3 , UA is negative. Ambulated 590' with standby assistance using a rolling walker. Up and down 5 stairs with standby to contact guard assistance. VITAL SIGNS Temperature: 97.2 F SBP/DBP: 147/64 Pulse: 70 Resp: 16 MEDICATION ALLERGIES: No Known Drug Allergies (NKDA) ENVIRONMENTAL ALLERGIES: - Substance Allergies None Known - Other Allergies None Known NURSING: - Shower allowing shower - Bladder care per protocol - Skin care per protocol PRECAUTIONS: - Weight Bearing Precaution WBAT left LE ACTIVITIES OOB only with supervision THERAPIES: - Occupational Therapy Cognitive Retraining. Visual Perceptual Training. - Dietary and Nutrition Adequate Nutrition. Nutritional Education. Nutritional Supplements. - Speech Therapy Cognitive Training. Expressive Language Skills. Memory Strategies. Receptive Language Skills. Speech Intelligibility Training. PHYSICAL EXAM - Gen Alert and awake Lying in bed No apparent distress Oriented to: person, time, and place - Skin Mild bruising on the arms. Normacephalic - Eyes No abnormalities - ENMT No abnormalities - Neck No abnormalities - CVS RRR - Chest Clear - Abd + bowel sounds - GI Soft Deferred - No abnormalities - Ext No significant edema - MSK 3-4/5 weakness in right upper and 4+/5 in right lower extremity - Neuro 3-4/5 right upper extremity and 4/5 right lower extremity weakness. Decreased to light touch and temp erature or the right. - Psych Mild anxiety. ASSESSMENT: Pt. is a 80 yo Right-handed male.On 03/07/2021 Pt. presented to [facility] with sudden o nset of left-side weakness.On 03/15/2021 he was admitted to [facility] with diagnosis ac chetna cva.His impairment category is Stroke 01 - Left Body (Right Brain) (01.1).Pre-morbidly, Pt. was independent/mod-I in Locomotion, Balance, Safety Awareness, Transfers Control, Communication, and Julissa f-Care; and he had good Endurance and Sphincter Control.Currently, he has deficits of Locomotion, Saf ety Awareness, Balance, Transfers Control, Sphincter Control, Self-Care, Communication, and Endurance .Pt. is now referred to [facility] for acute in-patient rehabilitation in [facility] to maximize patient's functional independence in activities of daily living, strength, ROM, and mob ility.- Rehab Goal Patient has realistic goal of being discharged at assistance level 7-Ind to reside at Home with Fami ly/Relatives. MDM/PLAN: - Physical Therapy Gait dysfunction - to improve, our physical therapists will perform initial evaluation of pt's statu s upon admission and devise an individualized program for Gait Training, and Wheel Chair mobility Inability to transfer - to improve, our physical therapists will perform initial evaluation of pt's status upon admission and devise an individualized program for Bed mobility Need for home safety evaluation - to improve, our physical therapists will perform initial evaluatio n of pt's status upon admission and devise an individualized program for Home Evaluation Need in caregiver upon discharge - to improve, our physical therapists will perform initial evaluati on of pt's status upon admission and devise an individualized program for Caregiver Training New precaution - to improve, our physical therapists will perform initial evaluation of pt's status upon admission and devise an individualized program for Patient precaution education Edema - to improve, our physical therapists will perform initial evaluation of pt's status upon admi ssion and devise an individualized program for Elevation Training, and Lymphedema Therapy Poor balance - to improve, our physical therapists will perform initial evaluation of pt's status up on admission and devise an individualized program for Balance Training Poor endurance - to improve, our physical therapists will perform initial evaluation of pt's status upon admission and devise an individualized program for Endurance Training Weakness - to improve, our physical therapists will perform initial evaluation of pt's status upon a dmission and devise an individualized program for Aquatic Therapy, Neuromuscular Reeducation, and Str engthening Achieving independence - to improve, our physical therapists will perform initial evaluation of pt's status upon admission and devise an individualized program for Community Reintegration Activities - Occupational Therapy ADL deficits - to improve, our occupation therapists will perform initial evaluation of pt's status upon admission and devise an individualized program for Bathing, Bed mobility, Community Reintegratio n, Cooking, Dressing, Eating, Fine Motor Skills, Grooming, Homemaking, Kitchen Mobility, Laundry, Pat ient Education, Safety Awareness, Splinting - Positioning, Transfers(Toilet, Tub, Shower), and Wheel Chair Management Need for long term care administrator - to improve, our occupation therapists will perform initial evaluation of pt's status upon admission and devise an individualized program for Caregiver Training Weakness - to improve, our occupation therapists will perform initial evaluation of pt's status upon admission and devise an individualized program for Aquatic Therapy, Balance, Endurance, UE ROM, and UE strengthening - Other See attached MAR (Medication Administration Record) - Diet Type Continue Regular - Diet - Liquid Texture Continue Regular - Tube Feed Continue N/A - Bladder care per protocol - Weight Bearing Precaution WBAT left LE - Skin care per protocol - Diet - Solid Texture Continue Regular - Shower allowing shower for Dementia, TBI, Stroke, or others FUNCTIONAL STATUS: UPDATED AT WEEKLY TEAM CONFERENCE - Bladder Same accident frequency: 7-Ind - No accidents in the past 7 days - Bowel Same accident frequency: 7-Ind - No accidents in the past 7 days - Walking Same score based on distance walked: 0(N/A) Same score based on distance walked: 2(50-149ft) - Wheelchair Same score based on distance traveled: 0(N/A) FUNCTIONAL STATUS: - Self-Care A. Eating Ind B. Grooming Edgardo C. Bathing Kelvin D. Dressing - Upper sup E. Dressing - Lower Kelvin F. Toileting Kelvin - Sphincter Control G. Bladder control Edgardo H. Bowel control Edgardo - Transfers Control I. Bed/Chair/Wheelchair Kelvin J. Toilet Kelvin K. Tub/Shower modA - Locomotion L. Walk/Wheelchair (B) Kelvin M. Stairs modA - Communication N. Comprehension (B) Edgardo O. Expression (B) Edgardo - Social Cognition P. Social Interaction Edgardo Q. Problem Solving sup R. Memory sup - Endurance Good - Balance Good - Safety Awareness Good QI SCORES: - Self-Care A. Eating 03-Partial/moderate assistance B. Oral hygiene 03-Partial/moderate assistance C. Toileting hygiene 02-Substantial/maximal assistance E. Shower/bathe self 02-Substantial/maximal assistance F. Upper body dressing 03-Partial/moderate assistance G. Lower body dressing 02-Substantial/maximal assistance H. Putting on/taking off footwear 88-Not attempted due to medical condition or safety concerns - Mobility A. Roll left and right 03-Partial/moderate assistance B. Sit to lying 03-Partial/moderate assistance C. Lying to sitting on side of bed 03-Partial/moderate assistance D. Sit to stand 03-Partial/moderate assistance E. Chair/[id number] transfer 03-Partial/moderate assistance F. Toilet transfer 03-Partial/moderate assistance G. Car transfer 88-Not attempted due to medical condition or safety concerns I. Walk 10 feet 03-Partial/moderate assistance J. Walk 50 feet with two turns 03-Partial/moderate assistance K. Walk 150 feet 88-Not attempted due to medical condition or safety concerns L. Walking 10 feet on uneven surfaces 88-Not attempted due to medical condition or safety concerns M. 1 step (curb) 88-Not attempted due to medical condition or safety concerns N. 4 steps 88-Not attempted due to medical condition or safety concerns O. 12 steps 88-Not attempted due to medical condition or safety concerns P. Picking up object 88-Not attempted due to medical condition or safety concerns R. Wheel 50 feet with two turns 88-Not attempted due to medical condition or safety concerns S. Wheel 150 feet 88-Not attempted due to medical condition or safety concerns - Bladder and Bowel Bladder continence Bowel continence - Endurance Fair - Balance Poor - Safety Awareness Fair CURRENT [facility]. DEFICITS: Self-Care, Mobility, Endurance, Balance, and Safety Awareness SIGNATURE PANEL: (CDT)
[2021-03-22] MEDS: MELATONIN 3 MG TABLET PO PRN (18:53)
[2021-03-22] MEDS: DONEPEZIL HCL 5 MG TAB PO SCH (18:53)
[2021-03-22] MEDS: DOCUSATE NA 100 MG CAP PO PRN (18:53)
[2021-03-22] MEDS: ATORVASTATIN 80 MG TAB PO SCH (18:53)
[2021-03-23] MEDS: carvediloL 3.125 MG TAB PO SCH ×2 (05:08→17:01)
[2021-03-23 06:13] LABS: Absolute Lymphocytes (CBC) 2.3 K/uL (0.7-4.9); Basophils % 0.7 % (0-1.3); Hematocrit 30.3 % (39.6-49.0); Lymphocytes % 23.7 % (15.3-44.8); MPV 9.3 fL (7.6-11.3); RBC Red Blood Cell Count 3.13 M/uL (4.33-5.43)
[2021-03-23 06:27] LABS: Albumin 3.3 g/dL (3.4-5.0); Magnesium 1.8 mg/dL (1.8-2.4); Potassium 4.2 mmol/L (3.5-5.1); Prealbumin 23.2 mg/dL (20-40)
[2021-03-23] MEDS: DORZOLAMIDE 2% OPTH (10 ML) OPTH SCH ×2 (06:58→19:41)
[2021-03-23] MEDS: TRAVOPROST OPTH SCH (06:58)
[2021-03-23] MEDS: INSULIN -REGULAR HUMAN 50 UNIT/0.5 ML ML SQ SCH ×4 (07:30→19:41)
[2021-03-23] MEDS: COMBIGAN OPTH SCH ×2 (07:34→19:41)
[2021-03-23] MEDS: SITAGLIPTIN PHOS 100 MG TAB PO SCH (07:59)
[2021-03-23] MEDS: ZINC SULFATE 220 MG CAP PO SCH (07:59)
[2021-03-23] MEDS: VITAMIN D 1000 UNIT TAB PO SCH (07:59)
[2021-03-23] MEDS: MEMANTINE HCL 10 MG TABLET PO SCH ×2 (08:00→19:41)
[2021-03-23] MEDS: POTASSIUM CL SA 10 MEQ TAB PO SCH ×2 (08:00→19:41)
[2021-03-23] MEDS: METFORMIN HCL 500 MG TAB PO SCH ×2 (08:00→17:01)
[2021-03-23] MEDS: FOLIC ACID 1 MG TABLET PO SCH (08:00)
[2021-03-23] MEDS: ASCORBIC ACID 500 MG TABLET PO SCH (08:00)
[2021-03-23] MEDS: APIXABAN 5 MG TABLET PO SCH ×2 (08:00→19:41)
[2021-03-23] MEDS: FAMOTIDINE 20 MG TAB PO SCH (08:00)
[2021-03-23] MEDS: MAGNESIUM OXIDE 400 MG TAB PO SCH (08:00)
[2021-03-23] MEDS: POLYETHYL GLY 3350 17 GM/DOSE PO PRN (16:11)
--- NOTE | 2021-03-23 17:57 | R.PN ---
PROGRESS NOTES ENCOUNTER DATE AND TIME: 03/23/2021 17:53 (CDT) NAME SALVADOR BRUNNER DATE OF : 1940 DATE OF ADMISSION: 03/15/2021 10:27 (CDT) acute cvaCHIEF COMPLAINT: Stroke with residual left sided weakness SUBJECTIVE: Pt denied any depression. Pt denied any Shortness of Breath. WBC 9.7, Hgb 10.2, Plt 297, glucose 111 to 136, prealbumin 23.2, UA is negative. Ambulated 750' with standby assistance using a rolling walker. Up and down 10 stairs with standby to contact guard assistance. VITAL SIGNS Temperature: 97.5 F SBP/DBP: 153/79 Pulse: 61 Resp: 16 MEDICATION ALLERGIES: No Known Drug Allergies (NKDA) ENVIRONMENTAL ALLERGIES: - Substance Allergies None Known - Other Allergies None Known NURSING: - Shower allowing shower - Bladder care per protocol - Skin care per protocol PRECAUTIONS: - Weight Bearing Precaution WBAT left LE ACTIVITIES OOB only with supervision THERAPIES: - Occupational Therapy Cognitive Retraining. Visual Perceptual Training. - Dietary and Nutrition Adequate Nutrition. Nutritional Education. Nutritional Supplements. - Speech Therapy Cognitive Training. Expressive Language Skills. Memory Strategies. Receptive Language Skills. Speech Intelligibility Training. PHYSICAL EXAM - Gen Alert and awake Lying in bed No apparent distress Oriented to: person, time, and place - Skin Mild bruising on the arms. Normacephalic - Eyes No abnormalities - ENMT No abnormalities - Neck No abnormalities - CVS RRR - Chest Clear - Abd + bowel sounds - GI Soft Deferred - No abnormalities - Ext No significant edema - MSK 3-4/5 weakness in right upper and 4+/5 in right lower extremity - Neuro 3-4/5 right upper extremity and 4/5 right lower extremity weakness. Decreased to light touch and temp erature or the right. - Psych Mild anxiety. ASSESSMENT: Pt. is a 80 yo Right-handed male.On 03/07/2021 Pt. presented to [facility] with sudden o nset of left-side weakness.On 03/15/2021 he was admitted to [facility] with diagnosis ac agdaagux cva.His impairment category is Stroke 01 - Left Body (Right Brain) (01.1).Pre-morbidly, Pt. was independent/mod-I in Locomotion, Balance, Safety Awareness, Transfers Control, Communication, and Julissa f-Care; and he had good Endurance and Sphincter Control.Currently, he has deficits of Locomotion, Saf ety Awareness, Balance, Transfers Control, Sphincter Control, Self-Care, Communication, and Endurance .Pt. is now referred to [facility] for acute in-patient rehabilitation in [facility] to maximize patient's functional independence in activities of daily living, strength, ROM, and mob ility.- Rehab Goal Patient has realistic goal of being discharged at assistance level 7-Ind to reside at Home with Fami ly/Relatives. MDM/PLAN: - Physical Therapy Gait dysfunction - to improve, our physical therapists will perform initial evaluation of pt's statu s upon admission and devise an individualized program for Gait Training, and Wheel Chair mobility Inability to transfer - to improve, our physical therapists will perform initial evaluation of pt's status upon admission and devise an individualized program for Bed mobility Need for home safety evaluation - to improve, our physical therapists will perform initial evaluatio n of pt's status upon admission and devise an individualized program for Home Evaluation Need in caregiver upon discharge - to improve, our physical therapists will perform initial evaluati on of pt's status upon admission and devise an individualized program for Caregiver Training New precaution - to improve, our physical therapists will perform initial evaluation of pt's status upon admission and devise an individualized program for Patient precaution education Edema - to improve, our physical therapists will perform initial evaluation of pt's status upon admi ssion and devise an individualized program for Elevation Training, and Lymphedema Therapy Poor balance - to improve, our physical therapists will perform initial evaluation of pt's status up on admission and devise an individualized program for Balance Training Poor endurance - to improve, our physical therapists will perform initial evaluation of pt's status upon admission and devise an individualized program for Endurance Training Weakness - to improve, our physical therapists will perform initial evaluation of pt's status upon a dmission and devise an individualized program for Aquatic Therapy, Neuromuscular Reeducation, and Str engthening Achieving independence - to improve, our physical therapists will perform initial evaluation of pt's status upon admission and devise an individualized program for Community Reintegration Activities - Occupational Therapy ADL deficits - to improve, our occupation therapists will perform initial evaluation of pt's status upon admission and devise an individualized program for Bathing, Bed mobility, Community Reintegratio n, Cooking, Dressing, Eating, Fine Motor Skills, Grooming, Homemaking, Kitchen Mobility, Laundry, Pat ient Education, Safety Awareness, Splinting - Positioning, Transfers(Toilet, Tub, Shower), and Wheel Chair Management Need for care professional - to improve, our occupation therapists will perform initial evaluation of pt's status upon admission and devise an individualized program for Caregiver Training Weakness - to improve, our occupation therapists will perform initial evaluation of pt's status upon admission and devise an individualized program for Aquatic Therapy, Balance, Endurance, UE ROM, and UE strengthening - Other See attached MAR (Medication Administration Record) - Diet Type Continue Regular - Diet - Liquid Texture Continue Regular - Tube Feed Continue N/A - Bladder care per protocol - Weight Bearing Precaution WBAT left LE - Skin care per protocol - Diet - Solid Texture Continue Regular - Shower allowing shower for Dementia, TBI, Stroke, or others FUNCTIONAL STATUS: UPDATED AT WEEKLY TEAM CONFERENCE - Bladder Same accident frequency: 7-Ind - No accidents in the past 7 days - Bowel Same accident frequency: 7-Ind - No accidents in the past 7 days - Walking Same score based on distance walked: 0(N/A) Same score based on distance walked: 2(50-149ft) - Wheelchair Same score based on distance traveled: 0(N/A) FUNCTIONAL STATUS: - Self-Care A. Eating Ind B. Grooming Edgardo C. Bathing Kelvin D. Dressing - Upper sup E. Dressing - Lower Kelvin F. Toileting Kelvin - Sphincter Control G. Bladder control Edgardo H. Bowel control Edgardo - Transfers Control I. Bed/Chair/Wheelchair Kelvin J. Toilet Kelvin K. Tub/Shower modA - Locomotion L. Walk/Wheelchair (B) Kelvin M. Stairs modA - Communication N. Comprehension (B) Edgardo O. Expression (B) Edgardo - Social Cognition P. Social Interaction Edgardo Q. Problem Solving sup R. Memory sup - Endurance Good - Balance Good - Safety Awareness Good QI SCORES: - Self-Care A. Eating 03-Partial/moderate assistance B. Oral hygiene 03-Partial/moderate assistance C. Toileting hygiene 02-Substantial/maximal assistance E. Shower/bathe self 02-Substantial/maximal assistance F. Upper body dressing 03-Partial/moderate assistance G. Lower body dressing 02-Substantial/maximal assistance H. Putting on/taking off footwear 88-Not attempted due to medical condition or safety concerns - Mobility A. Roll left and right 03-Partial/moderate assistance B. Sit to lying 03-Partial/moderate assistance C. Lying to sitting on side of bed 03-Partial/moderate assistance D. Sit to stand 03-Partial/moderate assistance E. Chair/[id number] transfer 03-Partial/moderate assistance F. Toilet transfer 03-Partial/moderate assistance G. Car transfer 88-Not attempted due to medical condition or safety concerns I. Walk 10 feet 03-Partial/moderate assistance J. Walk 50 feet with two turns 03-Partial/moderate assistance K. Walk 150 feet 88-Not attempted due to medical condition or safety concerns L. Walking 10 feet on uneven surfaces 88-Not attempted due to medical condition or safety concerns M. 1 step (curb) 88-Not attempted due to medical condition or safety concerns N. 4 steps 88-Not attempted due to medical condition or safety concerns O. 12 steps 88-Not attempted due to medical condition or safety concerns P. Picking up object 88-Not attempted due to medical condition or safety concerns R. Wheel 50 feet with two turns 88-Not attempted due to medical condition or safety concerns S. Wheel 150 feet 88-Not attempted due to medical condition or safety concerns - Bladder and Bowel Bladder continence Bowel continence - Endurance Fair - Balance Poor - Safety Awareness Fair [facility] DEFICITS: Self-Care, Mobility, Endurance, Balance, and Safety Awareness SIGNATURE PANEL: (CDT)
[2021-03-23] MEDS: DOCUSATE NA/SENNA CONC 1 TAB PO PRN (19:40)
[2021-03-23] MEDS: DONEPEZIL HCL 5 MG TAB PO SCH (19:41)
[2021-03-23] MEDS: MELATONIN 3 MG TABLET PO PRN (19:41)
[2021-03-23] MEDS: ATORVASTATIN 80 MG TAB PO SCH (19:41)
[2021-03-24] MEDS: carvediloL 3.125 MG TAB PO SCH ×2 (05:03→16:39)
[2021-03-24] MEDS: INSULIN -REGULAR HUMAN 50 UNIT/0.5 ML ML SQ SCH ×4 (07:30→20:29)
[2021-03-24] MEDS: ASCORBIC ACID 500 MG TABLET PO SCH (08:00)
[2021-03-24] MEDS: VITAMIN D 1000 UNIT TAB PO SCH (09:02)
[2021-03-24] MEDS: TRAVOPROST OPTH SCH (09:02)
[2021-03-24] MEDS: COMBIGAN OPTH SCH ×2 (09:02→20:29)
[2021-03-24] MEDS: ZINC SULFATE 220 MG CAP PO SCH (09:03)
[2021-03-24] MEDS: MAGNESIUM OXIDE 400 MG TAB PO SCH (09:03)
[2021-03-24] MEDS: FAMOTIDINE 20 MG TAB PO SCH (09:03)
[2021-03-24] MEDS: SITAGLIPTIN PHOS 100 MG TAB PO SCH (09:03)
[2021-03-24] MEDS: APIXABAN 5 MG TABLET PO SCH ×2 (09:04→20:28)
[2021-03-24] MEDS: POTASSIUM CL SA 10 MEQ TAB PO SCH ×2 (09:04→20:28)
[2021-03-24] MEDS: METFORMIN HCL 500 MG TAB PO SCH ×2 (09:04→16:41)
[2021-03-24] MEDS: MEMANTINE HCL 10 MG TABLET PO SCH ×2 (09:04→20:28)
[2021-03-24] MEDS: FOLIC ACID 1 MG TABLET PO SCH (09:04)
[2021-03-24] MEDS: DORZOLAMIDE 2% OPTH (10 ML) OPTH SCH ×2 (09:11→20:30)
--- NOTE | 2021-03-24 10:06 | P.RH.PN ---
Estimated Length of Stay: 14 Expected Discharge Date: 03/28/21 Discharge Disposition Plan: Home Family Support: Yes Correction Goal: Mobility, Transfers, Self Care Vital Signs: Last Vital Signs Temp 97.3 F 03/24/21 07:31 Pulse 66 03/24/21 07:31 Resp 18 03/24/21 07:31 BP 125/58 L 03/24/21 07:31 Pulse Ox 95 03/24/21 07:31 Laboratory: Laboratory Last Values WBC 9.70 K/uL (4.3-10.9) 03/23/21 05:45 RBC 3.13 M/uL (4.33-5.43) L 03/23/21 05:45 Hgb 10.2 g/dL (13.6-17.9) L 03/23/21 05:45 Hct 30.3 % (39.6-49.0) L 03/23/21 05:45 MCV 96.8 fL (80-100) 03/23/21 05:45 MCH 32.4 pg (27.0-35.0) 03/23/21 05:45 MCHC 33.5 g/dL (32.0-36.0) 03/23/21 05:45 RDW 14.5 % (12.1-15.2) 03/23/21 05:45 Plt Count 284 K/uL (152-406) 03/23/21 05:45 MPV 9.3 fL (7.6-11.3) 03/23/21 05:45 Neutrophils % 62.5 % (41.7-73.7) 03/23/21 05:45 Lymphocytes % 23.7 % (15.3-44.8) 03/23/21 05:45 Monocytes % 8.7 % (3.3-12.3) 03/23/21 05:45 Eosinophils % 4.4 % (0-4.4) 03/23/21 05:45 Basophils % 0.7 % (0-1.3) 03/23/21 05:45 Absolute Neutrophils 6.1 K/uL (1.8-8.0) 03/23/21 05:45 Absolute Lymphocytes 2.3 K/uL (0.7-4.9) 03/23/21 05:45 Absolute Monocytes 0.8 K/uL (0.1-1.3) 03/23/21 05:45 Absolute Eosinophils 0.4 K/uL (0-0.5) 03/23/21 05:45 Absolute Basophils 0.1 K/uL (0-0.5) 03/23/21 05:45 Sodium 140 mmol/L (136-145) 03/23/21 05:45 Potassium 4.2 mmol/L (3.5-5.1) 03/23/21 05:45 Chloride 107 mmol/L (98-107) 03/23/21 05:45 Carbon Dioxide 26 mmol/L (21-32) 03/23/21 05:45 BUN 21 mg/dL (7-18) H 03/23/21 05:45 Creatinine 0.99 mg/dL (0.55-1.3) 03/23/21 05:45 Estimated GFR 73 mL/min (=/>90) L 03/23/21 05:45 Glucose 106 mg/dL (74-106) 03/23/21 05:45 POC Glucose 122 mg/dL (65-120) H 03/24/21 07:09 Calcium 8.7 mg/dL (8.5-10.1) 03/23/21 05:45 Magnesium 1.8 mg/dL (1.8-2.4) 03/23/21 05:45 Albumin 3.3 g/dL (3.4-5.0) L 03/23/21 05:45 Prealbumin 23.2 mg/dL (20-40) 03/23/21 05:45 Urine Color Yellow (Yellow) 03/15/21 12:25 Urine Appearance Clear (Clear) 03/15/21 12:25 Urine pH 7.0 (5.0-7.0) 03/15/21 12:25 Ur Specific [place] 1.010 (1.005-1.030) 03/15/21 12:25 Glucose (UA)(Auto) Trace (Negative) 03/15/21 12:25 Urine Ketones Negative (Negative) 03/15/21 12:25 Urine Blood Negative (Negative) 03/15/21 12:25 Urine Nitrite Negative (Negative) 03/15/21 12:25 Urine Bilirubin Negative (Negative) 03/15/21 12:25 Urine Urobilinogen 1.0 mg/dL (0.2-1.0) 03/15/21 12:25 Ur Leukocyte Esterase Negative (Negative) 03/15/21 12:25 Urine RBC <5 /HPF (NONE SEEN) 03/15/21 12:25 Urine WBC <5 /HPF (<5) 03/15/21 12:25 Ur Squamous Epith Cells <5 /HPF (NONE SEEN) 03/15/21 12:25 Urine Bacteria <20 /HPF (NONE SEEN) 03/15/21 12:25 Urine Culture Reflexed Not needed 03/15/21 12:25 Urine Total Protein Negative (Negative) 03/15/21 12:25 Weight: 168 lb 1.6 oz Wound Present: No Closed Surgical Incision Present: No Negative Pressure Wound Therapy Present: No Physician Update: Doing fairly well walking 250', transfers, stairs standby assistance. Also a standby assistance for ADLs. Labs reviewed and are stable. Functional Improvement: Patient has met all short-term goals at this time, and is progressing well toward long-term goals. Patient presents w/ good attitude and work ethic. Speech Therapy Update: Patient presents with mod-severe Wernicke's aphasia. He requires repeated, simplified instruction and extra time to respond. Patient has difficulty communicating basic wants/needs verbally. ST is recommended 5x/wk x 4 weeks to address these issues. Summary: Patient's care plan and long-term goals have been reviewed and revised as necessary. Please see the Rehabilitation Signature page for all necessary signatures.
--- NOTE | 2021-03-24 15:58 | FAST ---
[employer] FORM SHIFT START DATE/TIME: 03/24/2021 07:00 (CDT) SHIFT END DATE/TIME: 03/24/2021 19:00 (CDT) NAME SALVADOR BRUNNER DATE OF : 1940 DATE OF ADMISSION: 03/15/2021 10:27 (CDT) PHONE: AGE: 80 SSN# [id number] GENDER: Male ENCOUNTER PHYSICIAN: Dr. Rico Rodríguez M.D. ADMISSION DIAGNOSIS: - Stroke 01 - Left Body (Right Brain) (01.1) acute cva. EATING: EATING - STEP 1: Does the patient complete the activity by him/herself with no assistance (physical, verbal/nonverbal cueing, setup/clean-up)? No. EATING - STEP 2: Does the patient need only setup/clean-up assistance from one helper? Yes. 1. [id number] ADMISSION PERFORMANCE: Setup or clean-up assistance CODE: 05 ORAL HYGIENE: Patient refused CODE: 07 TOILETING HYGIENE: TOILETING HYGIENE - STEP 1: Does the patient complete the activity by him/herself with no assistance (physical, verbal/nonverbal cueing, setup/clean-up)? No. TOILETING HYGIENE - STEP 2: Does the patient need only setup/clean-up assistance from one helper? No. TOILETING HYGIENE - STEP 3: Does the patient need only verbal/nonverbal cueing or touching/steadying/contact guard assistance fro m one helper? Yes. 1. [id number] ADMISSION PERFORMANCE: Supervision or touching assistance CODE: 04 BATHING: Not assessed/no information CODE: - DRESSING - UPPER BODY: DRESSING - UPPER BODY - STEP 1: Does the patient complete the activity by him/herself with no assistance (physical, verbal/nonverbal cueing, setup/clean-up)? No. DRESSING - UPPER BODY - STEP 2: Does the patient need only setup/clean-up assistance from one helper? No. DRESSING - UPPER BODY - STEP 3: Does the patient need only verbal/nonverbal cueing or touching/steadying/contact guard assistance fro m one helper? Yes. 1. [id number] ADMISSION PERFORMANCE: Supervision or touching assistance CODE: 04 DRESSING - LOWER BODY: DRESSING - LOWER BODY - STEP 1: Does the patient complete the activity by him/herself with no assistance (physical, verbal/nonverbal cueing, setup/clean-up)? No. DRESSING - LOWER BODY - STEP 2: Does the patient need only setup/clean-up assistance from one helper? No. DRESSING - LOWER BODY - STEP 3: Does the patient need only verbal/nonverbal cueing or touching/steadying/contact guard assistance fro m one helper? Yes. 1. [id number] ADMISSION PERFORMANCE: Supervision or touching assistance CODE: 04 PUTTING ON/TAKING OFF FOOTWEAR: FOOTWEAR - STEP 1: Does the patient complete the activity by him/herself with no assistance (physical, verbal/nonverbal cueing, setup/clean-up)? No. FOOTWEAR - STEP 2: Does the patient need only setup/clean-up assistance from one helper? No. FOOTWEAR - STEP 3: Does the patient need only verbal/nonverbal cueing or touching/steadying/contact guard assistance fro m one helper? Yes. 1. [id number] ADMISSION PERFORMANCE: Supervision or touching assistance CODE: 04 ROLL LEFT AND RIGHT: ROLL LEFT AND RIGHT - STEP 1: Does the patient complete the activity by him/herself with no assistance (physical, verbal/nonverbal cueing, setup/clean-up)? No. ROLL LEFT AND RIGHT - STEP 2: Does the patient need only setup/clean-up assistance from one helper? Yes. 1. [id number] ADMISSION PERFORMANCE: Setup or clean-up assistance CODE: 05 SIT TO LYING: SIT TO LYING - STEP 3: Does the patient need only verbal/nonverbal cueing or touching/steadying/contact guard assistance fro m one helper? Yes. 1. [id number] ADMISSION PERFORMANCE: Supervision or touching assistance CODE: 04 LYING TO SITTING: LYING TO SITTING ON SIDE OF BED - STEP 1: Does the patient complete the activity by him/herself with no assistance (physical, verbal/nonverbal cueing, setup/clean-up)? No. LYING TO SITTING ON SIDE OF BED - STEP 2: Does the patient need only setup/clean-up assistance from one helper? Yes. 1. [id number] ADMISSION PERFORMANCE: Setup or clean-up assistance CODE: 05 SIT TO STAND: SIT TO STAND - STEP 1: Does the patient complete the activity by him/herself with no assistance (physical, verbal/nonverbal cueing, setup/clean-up)? No. SIT TO STAND - STEP 2: Does the patient need only setup/clean-up assistance from one helper? Yes. 1. [id number] ADMISSION PERFORMANCE: Setup or clean-up assistance CODE: 05 TRANSFERS: BED, CHAIR: CHAIR/[id number] TRANSFER - STEP 1: Does the patient complete the activity by him/herself with no assistance (physical, verbal/nonverbal cueing, setup/clean-up)? No. CHAIR/EAL-US-IWMAS TRANSFER - STEP 2: Does the patient need only setup/clean-up assistance from one helper? Yes. 1. [id number] ADMISSION PERFORMANCE: Setup or clean-up assistance CODE: 05 TRANSFER TOILET: TOILET TRANSFER - STEP 1: Does the patient complete the activity by him/herself with no assistance (physical, verbal/nonverbal cueing, setup/clean-up)? No. TOILET TRANSFER - STEP 2: Does the patient need only setup/clean-up assistance from one helper? Yes. 1. [id number] ADMISSION PERFORMANCE: Setup or clean-up assistance CODE: 05 TRANSFERS: CAR: Not assessed/no information CODE: - WALK 10 FEET: Not assessed/no information CODE: - 1 STEP (CURB): Not assessed/no information CODE: - PICKING UP OBJECT: Not assessed/no information CODE: - DOES THE PATIENT USE A WHEELCHAIR/SCOOTER? Q1. DOES THE PATIENT USE A WHEELCHAIR/SCOOTER?: Yes CODE: 1 WHEEL 50 FEET WITH TWO TURNS: WHEEL 50 FEET WITH TWO TURNS - STEP 1: Does the patient complete the activity by him/herself with no assistance (physical, verbal/nonverbal cueing, setup/clean-up)? No. WHEEL 50 FEET WITH TWO TURNS - STEP 2: Does the patient need only setup/clean-up assistance from one helper? Yes. 1. [id number] ADMISSION PERFORMANCE: Setup or clean-up assistance CODE: 05 INDICATE THE TYPE OF WHEELCHAIR/SCOOTER USED: RR1. INDICATE THE TYPE OF WHEELCHAIR/SCOOTER USED.: Manual CODE: 1 WHEEL 150 FEET: Not assessed/no information CODE: - INDICATE THE TYPE OF WHEELCHAIR/SCOOTER USED: SS1. INDICATE THE TYPE OF WHEELCHAIR/SCOOTER USED.: Manual CODE: EXPR BLADDER AND BOWEL: H350. BLADDER CONTINENCE (3-DAY ASSESSMENT PERIOD): Always continent (no documented incontinence) CODE: 0 H400. BOWEL CONTINENCE (3-DAY ASSESSMENT PERIOD): Always continent CODE: 0 SIGNATURE PANEL: The following modified sections: 1. [id number] Admission Performance, 1. [id number] Admission Performance, 1. JH6525n Admission Performance, 1. NI4605e Admission Performance, 1. EZ5808b Admission Performance, 1. TK0996l Admission Performance, 1. [id number] Admission Performance, 1. MD9033Q Admission Performance , 1. [id number] Admission Performance, 1. [id number] Admission Performance, 1. [id number] Admission Performanc e, 1. UN1532V Admission Performance, 1. [id number] Admission Performance, Q1. Does the patient use a whe elchair/scooter?, 1. [id number] Admission Performance, RR1. Indicate the type of wheelchair/scooter used ., Code, SS1. Indicate the type of wheelchair/scooter used., H350. Bladder Continence (3-day assessme nt period), H400. Bowel Continence (3-day assessment period) were [electronically] signed by Serena Baer CRgNInez on SatMar 24 2021 15:57:58 GMT-0500 (Central Daylight Time)
[2021-03-24] MEDS ORDERED: LOPERAMIDE HCL 2 MG CAPSULE PO PRN (16:26)
[2021-03-24] MEDS: DONEPEZIL HCL 5 MG TAB PO SCH (20:28)
[2021-03-24] MEDS: ATORVASTATIN 80 MG TAB PO SCH (20:28)
[2021-03-25] MEDS: carvediloL 3.125 MG TAB PO SCH ×2 (05:03→16:39)
[2021-03-25 05:48] VITALS: BMI 24.0
[2021-03-25] MEDS: TRAVOPROST OPTH SCH (07:02)
[2021-03-25] MEDS: COMBIGAN OPTH SCH ×2 (07:02→19:29)
[2021-03-25] MEDS: INSULIN -REGULAR HUMAN 50 UNIT/0.5 ML ML SQ SCH ×4 (07:15→19:29)
[2021-03-25] MEDS: DORZOLAMIDE 2% OPTH (10 ML) OPTH SCH ×2 (07:16→19:28)
[2021-03-25] MEDS: VITAMIN D 1000 UNIT TAB PO SCH (08:30)
[2021-03-25] MEDS: POTASSIUM CL SA 10 MEQ TAB PO SCH ×2 (08:30→19:28)
[2021-03-25] MEDS: MEMANTINE HCL 10 MG TABLET PO SCH ×2 (08:30→19:28)
[2021-03-25] MEDS: SITAGLIPTIN PHOS 100 MG TAB PO SCH (08:30)
[2021-03-25] MEDS: ZINC SULFATE 220 MG CAP PO SCH (08:30)
[2021-03-25] MEDS: FERROUS SULFATE 325 MG TAB PO SCH (08:31)
[2021-03-25] MEDS: FOLIC ACID 1 MG TABLET PO SCH (08:31)
[2021-03-25] MEDS: FAMOTIDINE 20 MG TAB PO SCH (08:31)
[2021-03-25] MEDS: ASCORBIC ACID 500 MG TABLET PO SCH (08:31)
[2021-03-25] MEDS: METFORMIN HCL 500 MG TAB PO SCH ×2 (08:31→16:40)
[2021-03-25] MEDS: APIXABAN 5 MG TABLET PO SCH ×2 (08:31→19:28)
[2021-03-25] MEDS: MAGNESIUM OXIDE 400 MG TAB PO SCH (09:06)
[2021-03-25] MEDS: ATORVASTATIN 80 MG TAB PO SCH (19:28)
[2021-03-25] MEDS: DONEPEZIL HCL 5 MG TAB PO SCH (19:28)
[2021-03-25] MEDS: MELATONIN 3 MG TABLET PO PRN (19:29)
[2021-03-26] MEDS: carvediloL 3.125 MG TAB PO SCH ×2 (05:39→16:54)
[2021-03-26] MEDS: INSULIN -REGULAR HUMAN 50 UNIT/0.5 ML ML SQ SCH ×4 (07:16→20:10)
[2021-03-26] MEDS: SITAGLIPTIN PHOS 100 MG TAB PO SCH (08:05)
[2021-03-26] MEDS: MAGNESIUM OXIDE 400 MG TAB PO SCH (08:05)
[2021-03-26] MEDS: ZINC SULFATE 220 MG CAP PO SCH (08:06)
[2021-03-26] MEDS: VITAMIN D 1000 UNIT TAB PO SCH (08:06)
[2021-03-26] MEDS: METFORMIN HCL 500 MG TAB PO SCH ×2 (08:06→16:54)
[2021-03-26] MEDS: POTASSIUM CL SA 10 MEQ TAB PO SCH ×2 (08:06→19:57)
[2021-03-26] MEDS: APIXABAN 5 MG TABLET PO SCH ×2 (08:06→19:57)
[2021-03-26] MEDS: FAMOTIDINE 20 MG TAB PO SCH (08:06)
[2021-03-26] MEDS: ASCORBIC ACID 500 MG TABLET PO SCH (08:07)
[2021-03-26] MEDS: FOLIC ACID 1 MG TABLET PO SCH (08:07)
[2021-03-26] MEDS: MEMANTINE HCL 10 MG TABLET PO SCH ×2 (08:07→19:57)
[2021-03-26] MEDS: FERROUS SULFATE 325 MG TAB PO SCH (08:07)
[2021-03-26] MEDS: COMBIGAN OPTH SCH ×2 (08:11→19:56)
[2021-03-26] MEDS: DORZOLAMIDE 2% OPTH (10 ML) OPTH SCH ×2 (08:11→19:57)
[2021-03-26] MEDS: TRAVOPROST OPTH SCH (08:11)
[2021-03-26] MEDS: DOCUSATE NA 100 MG CAP PO SCH (11:32)
[2021-03-26] MEDS ORDERED: HYDROCORTISONE 1 % CREAM 30GM TOP PRN (14:47)
[2021-03-26] MEDS: DONEPEZIL HCL 5 MG TAB PO SCH (19:57)
[2021-03-26] MEDS: ATORVASTATIN 80 MG TAB PO SCH (19:57)
[2021-03-26] MEDS: MELATONIN 3 MG TABLET PO PRN (19:58)
[2021-03-27] MEDS: carvediloL 3.125 MG TAB PO SCH ×2 (05:14→17:03)
[2021-03-27 06:21] LABS: Absolute Lymphocytes (CBC) 1.9 K/uL (0.7-4.9); Basophils % 1.4 % (0-1.3); Hematocrit 32.9 % (39.6-49.0); Lymphocytes % 22.1 % (15.3-44.8); MPV 9.1 fL (7.6-11.3); RBC Red Blood Cell Count 3.39 M/uL (4.33-5.43)
[2021-03-27 06:39] LABS: Potassium 4.1 mmol/L (3.5-5.1)
[2021-03-27] MEDS: DORZOLAMIDE 2% OPTH (10 ML) OPTH SCH ×2 (06:58→19:04)
[2021-03-27] MEDS: TRAVOPROST OPTH SCH (06:58)
[2021-03-27] MEDS: COMBIGAN OPTH SCH ×2 (06:58→19:04)
[2021-03-27] MEDS: INSULIN -REGULAR HUMAN 50 UNIT/0.5 ML ML SQ SCH ×4 (07:30→20:01)
[2021-03-27] MEDS: SITAGLIPTIN PHOS 100 MG TAB PO SCH (07:54)
[2021-03-27] MEDS: FERROUS SULFATE 325 MG TAB PO SCH (07:54)
[2021-03-27] MEDS: POTASSIUM CL SA 10 MEQ TAB PO SCH ×2 (07:54→19:03)
[2021-03-27] MEDS: METFORMIN HCL 500 MG TAB PO SCH ×2 (07:54→17:03)
[2021-03-27] MEDS: VITAMIN D 1000 UNIT TAB PO SCH (07:54)
[2021-03-27] MEDS: DOCUSATE NA 100 MG CAP PO SCH (07:55)
[2021-03-27] MEDS: FAMOTIDINE 20 MG TAB PO SCH (07:55)
[2021-03-27] MEDS: APIXABAN 5 MG TABLET PO SCH ×2 (07:55→19:03)
[2021-03-27] MEDS: MEMANTINE HCL 10 MG TABLET PO SCH ×2 (07:55→19:04)
[2021-03-27] MEDS: FOLIC ACID 1 MG TABLET PO SCH (07:55)
[2021-03-27] MEDS: ZINC SULFATE 220 MG CAP PO SCH (07:55)
[2021-03-27] MEDS: MAGNESIUM OXIDE 400 MG TAB PO SCH (07:56)
[2021-03-27] MEDS: ASCORBIC ACID 500 MG TABLET PO SCH (07:56)
[2021-03-27] MEDS: POLYETHYL GLY 3350 17 GM/DOSE PO PRN (16:40)
--- NOTE | 2021-03-27 17:57 | R.PN ---
PROGRESS NOTES ENCOUNTER DATE AND TIME: 03/27/2021 17:54 (CDT) NAME SALVADOR BRUNNER DATE OF : 1940 DATE OF ADMISSION: 03/15/2021 10:27 (CDT) acute cvaCHIEF COMPLAINT: Stroke with residual left sided weakness SUBJECTIVE: Pt denied any depression. Pt denied any Shortness of Breath. WBC 8.6, Hgb 11.1, glucose 114 to 129, prealbumin 23.2, UA is negative. Ambulated 750' with standby assistance using a rolling walker. VITAL SIGNS Temperature: 97.2 F SBP/DBP: 150/60 Pulse: 79 Resp: 16 MEDICATION ALLERGIES: No Known Drug Allergies (NKDA) ENVIRONMENTAL ALLERGIES: - Substance Allergies None Known - Other Allergies None Known NURSING: - Shower allowing shower - Bladder care per protocol - Skin care per protocol PRECAUTIONS: - Weight Bearing Precaution WBAT left LE ACTIVITIES OOB only with supervision THERAPIES: - Occupational Therapy Cognitive Retraining. Visual Perceptual Training. - Dietary and Nutrition Adequate Nutrition. Nutritional Education. Nutritional Supplements. - Speech Therapy Cognitive Training. Expressive Language Skills. Memory Strategies. Receptive Language Skills. Speech Intelligibility Training. PHYSICAL EXAM - Gen Alert and awake Lying in bed No apparent distress Oriented to: person, time, and place - Skin Mild bruising on the arms. Normacephalic - Eyes No abnormalities - ENMT No abnormalities - Neck No abnormalities - CVS RRR - Chest Clear - Abd + bowel sounds - GI Soft Deferred - No abnormalities - Ext No significant edema - MSK 3-4/5 weakness in right upper and 4+/5 in right lower extremity - Neuro 3-4/5 right upper extremity and 4/5 right lower extremity weakness. Decreased to light touch and temp erature or the right. - Psych Mild anxiety. ASSESSMENT: Pt. is a 80 yo Right-handed male.On 03/07/2021 Pt. presented to [facility] with sudden o nset of left-side weakness.On 03/15/2021 he was admitted to [facility] with diagnosis ac chetna cva.His impairment category is Stroke 01 - Left Body (Right Brain) (01.1).Pre-morbidly, Pt. was independent/mod-I in Locomotion, Balance, Safety Awareness, Transfers Control, Communication, and Julissa f-Care; and he had good Endurance and Sphincter Control.Currently, he has deficits of Locomotion, Saf ety Awareness, Balance, Transfers Control, Sphincter Control, Self-Care, Communication, and Endurance .Pt. is now referred to [facility] for acute in-patient rehabilitation in [facility] to maximize patient's functional independence in activities of daily living, strength, ROM, and mob ility.- Rehab Goal Patient has realistic goal of being discharged at assistance level 7-Ind to reside at Home with Fami ly/Relatives. MDM/PLAN: - Physical Therapy Gait dysfunction - to improve, our physical therapists will perform initial evaluation of pt's statu s upon admission and devise an individualized program for Gait Training, and Wheel Chair mobility Inability to transfer - to improve, our physical therapists will perform initial evaluation of pt's status upon admission and devise an individualized program for Bed mobility Need for home safety evaluation - to improve, our physical therapists will perform initial evaluatio n of pt's status upon admission and devise an individualized program for Home Evaluation Need in caregiver upon discharge - to improve, our physical therapists will perform initial evaluati on of pt's status upon admission and devise an individualized program for Caregiver Training New precaution - to improve, our physical therapists will perform initial evaluation of pt's status upon admission and devise an individualized program for Patient precaution education Edema - to improve, our physical therapists will perform initial evaluation of pt's status upon admi ssion and devise an individualized program for Elevation Training, and Lymphedema Therapy Poor balance - to improve, our physical therapists will perform initial evaluation of pt's status up on admission and devise an individualized program for Balance Training Poor endurance - to improve, our physical therapists will perform initial evaluation of pt's status upon admission and devise an individualized program for Endurance Training Weakness - to improve, our physical therapists will perform initial evaluation of pt's status upon a dmission and devise an individualized program for Aquatic Therapy, Neuromuscular Reeducation, and Str engthening Achieving independence - to improve, our physical therapists will perform initial evaluation of pt's status upon admission and devise an individualized program for Community Reintegration Activities - Occupational Therapy ADL deficits - to improve, our occupation therapists will perform initial evaluation of pt's status upon admission and devise an individualized program for Bathing, Bed mobility, Community Reintegratio n, Cooking, Dressing, Eating, Fine Motor Skills, Grooming, Homemaking, Kitchen Mobility, Laundry, Pat ient Education, Safety Awareness, Splinting - Positioning, Transfers(Toilet, Tub, Shower), and Wheel Chair Management Need for physician primary care sports medicine - to improve, our occupation therapists will perform initial evaluation of pt's status upon admission and devise an individualized program for Caregiver Training Weakness - to improve, our occupation therapists will perform initial evaluation of pt's status upon admission and devise an individualized program for Aquatic Therapy, Balance, Endurance, UE ROM, and UE strengthening - Other See attached MAR (Medication Administration Record) - Diet Type Continue Regular - Diet - Liquid Texture Continue Regular - Tube Feed Continue N/A - Bladder care per protocol - Weight Bearing Precaution WBAT left LE - Skin care per protocol - Diet - Solid Texture Continue Regular - Shower allowing shower for Dementia, TBI, Stroke, or others FUNCTIONAL STATUS: UPDATED AT WEEKLY TEAM CONFERENCE - Bladder Same accident frequency: 7-Ind - No accidents in the past 7 days - Bowel Same accident frequency: 7-Ind - No accidents in the past 7 days - Walking Same score based on distance walked: 0(N/A) Same score based on distance walked: 2(50-149ft) - Wheelchair Same score based on distance traveled: 0(N/A) FUNCTIONAL STATUS: - Self-Care A. Eating Ind B. Grooming Edgardo C. Bathing Kelvin D. Dressing - Upper sup E. Dressing - Lower Kelvin F. Toileting Kelvin - Sphincter Control G. Bladder control Edgardo H. Bowel control Edgardo - Transfers Control I. Bed/Chair/Wheelchair Kelvin J. Toilet Kelvin K. Tub/Shower modA - Locomotion L. Walk/Wheelchair (B) Kelvin M. Stairs modA - Communication N. Comprehension (B) Edgardo O. Expression (B) Edgardo - Social Cognition P. Social Interaction Edgardo Q. Problem Solving sup R. Memory sup - Endurance Good - Balance Good - Safety Awareness Good QI SCORES: - Self-Care A. Eating 03-Partial/moderate assistance B. Oral hygiene 03-Partial/moderate assistance C. Toileting hygiene 02-Substantial/maximal assistance E. Shower/bathe self 02-Substantial/maximal assistance F. Upper body dressing 03-Partial/moderate assistance G. Lower body dressing 02-Substantial/maximal assistance H. Putting on/taking off footwear 88-Not attempted due to medical condition or safety concerns - Mobility A. Roll left and right 03-Partial/moderate assistance B. Sit to lying 03-Partial/moderate assistance C. Lying to sitting on side of bed 03-Partial/moderate assistance D. Sit to stand 03-Partial/moderate assistance E. Chair/qpe-zj-ynwrd transfer 03-Partial/moderate assistance F. Toilet transfer 03-Partial/moderate assistance G. Car transfer 88-Not attempted due to medical condition or safety concerns I. Walk 10 feet 03-Partial/moderate assistance J. Walk 50 feet with two turns 03-Partial/moderate assistance K. Walk 150 feet 88-Not attempted due to medical condition or safety concerns L. Walking 10 feet on uneven surfaces 88-Not attempted due to medical condition or safety concerns M. 1 step (curb) 88-Not attempted due to medical condition or safety concerns N. 4 steps 88-Not attempted due to medical condition or safety concerns O. 12 steps 88-Not attempted due to medical condition or safety concerns P. Picking up object 88-Not attempted due to medical condition or safety concerns R. Wheel 50 feet with two turns 88-Not attempted due to medical condition or safety concerns S. Wheel 150 feet 88-Not attempted due to medical condition or safety concerns - Bladder and Bowel Bladder continence Bowel continence - Endurance Fair - Balance Poor - Safety Awareness Fair CURRENT [facility]. DEFICITS: Self-Care, Mobility, Endurance, Balance, and Safety Awareness SIGNATURE PANEL: (CDT)
[2021-03-27] MEDS: MELATONIN 3 MG TABLET PO PRN (19:03)
[2021-03-27] MEDS: DONEPEZIL HCL 5 MG TAB PO SCH (19:03)
[2021-03-27] MEDS: ATORVASTATIN 80 MG TAB PO SCH (19:03)
[2021-03-27] MEDS: DOCUSATE NA/SENNA CONC 1 TAB PO PRN (19:03)
[2021-03-28] MEDS: carvediloL 3.125 MG TAB PO SCH (05:05)
[2021-03-28] MEDS: DORZOLAMIDE 2% OPTH (10 ML) OPTH SCH (07:15)
[2021-03-28] MEDS: TRAVOPROST OPTH SCH (07:15)
[2021-03-28] MEDS: COMBIGAN OPTH SCH (07:15)
[2021-03-28 07:21] VITALS: BP 110/59; TEMP 96.9
[2021-03-28] MEDS: INSULIN -REGULAR HUMAN 50 UNIT/0.5 ML ML SQ SCH ×2 (07:21→11:30)
[2021-03-28] MEDS: MEMANTINE HCL 10 MG TABLET PO SCH (07:57)
[2021-03-28] MEDS: ZINC SULFATE 220 MG CAP PO SCH (07:57)
[2021-03-28] MEDS: SITAGLIPTIN PHOS 100 MG TAB PO SCH (07:57)
[2021-03-28] MEDS: VITAMIN D 1000 UNIT TAB PO SCH (07:57)
[2021-03-28] MEDS: ASCORBIC ACID 500 MG TABLET PO SCH (07:58)
[2021-03-28] MEDS: APIXABAN 5 MG TABLET PO SCH (07:58)
[2021-03-28] MEDS: POTASSIUM CL SA 10 MEQ TAB PO SCH (07:58)
[2021-03-28] MEDS: FAMOTIDINE 20 MG TAB PO SCH (07:58)
[2021-03-28] MEDS: FERROUS SULFATE 325 MG TAB PO SCH (07:58)
[2021-03-28] MEDS: FOLIC ACID 1 MG TABLET PO SCH (07:58)
[2021-03-28] MEDS: DOCUSATE NA 100 MG CAP PO SCH (07:58)
[2021-03-28] MEDS: METFORMIN HCL 500 MG TAB PO SCH (07:59)
[2021-03-28] MEDS: MAGNESIUM OXIDE 400 MG TAB PO SCH (08:00)
--- NOTE | 2021-03-31 12:49 | R.DS ---
DISCHARGE SUMMARY FACILITY [facility] MR# [id number] NAME SALVADOR BRUNNER ADDRESS [address] [place] [address] [address] [id number] PHONE DATE OF 1940 AGE 80 SSN# [id number] GENDER Male MAR[employer] STATUS ENCOUNTER PHYSICIAN Dr. Rico Rodríguez M.D. REFERRING DOCTOR Ed Arceo REFERRING FACILITY [facility] DISCHARGE DIAGNOSIS: - Stroke 01 - Left Body (Right Brain) (01.1) acute cva. DATE OF ADMISSION 03/15/2021 10:27 (CDT) MEDICATION ALLERGIES: No Known Drug Allergies (NKDA) ENVIRONMENTAL ALLERGIES: - Substance Allergies None Known - Other Allergies None Known DISCHARGE MEDICATIONS: Other- ContinueSee attached MAR (Medication Administration Record). NURSING: - Shower allowing shower - Bladder care per protocol - Skin care per protocol PRECAUTIONS: - Weight Bearing Precaution WBAT left LE ACTIVITIES OOB only with supervision THERAPIES: - Occupational Therapy Cognitive Retraining Visual Perceptual Training - Dietary and Nutrition Adequate Nutrition Nutritional Education Nutritional Supplements - Speech Therapy Cognitive Training Expressive Language Skills Memory Strategies Receptive Language Skills Speech Intelligibility Training HISTORY OF PRESENT ILLNESS: Pt. is a 80 yo Right-handed male.On 03/07/2021 Pt. presented to [facility] with sudden o nset of left-side weakness.On 03/15/2021 he was admitted to [facility] with diagnosis ac chetna cva.His impairment category is Stroke 01 - Left Body (Right Brain) (01.1).Pre-morbidly, Pt. was independent/mod-I in Locomotion, Balance, Safety Awareness, Transfers Control, Communication, and Julissa f-Care; and he had good Endurance and Sphincter Control.Currently, he has deficits of Locomotion, Saf ety Awareness, Balance, Transfers Control, Sphincter Control, Self-Care, Communication, and Endurance .Pt. is now referred to [facility] for acute [facility]-patient [place] to maximize patient's functional independence in activities of daily living, strength, ROM, and mob ility.- Rehab Goal Patient has realistic goal of being discharged at assistance level 7-Ind to reside at Home with Fami ly/Relatives. HOSPITAL COURSE: DIET - LIQUID TEXTURE: On 03/14/2021 Pt was upgraded to Regular Diet - Liquid Texture. DIET - SOLID TEXTURE: On 03/14/2021 Pt was upgraded to Regular Diet - Solid Texture. DIET TYPE: On 03/14/2021 Pt was upgraded to Regular Diet Type. TUBE FEED: On 03/14/2021 Pt was changed to N/A Tube Feed. WEIGHT BEARING PRECAUTION: On 03/14/2021 the following precautions were added for the patient: Weight Bearing Precaution - WBAT left LE. On 03/15/2021 the following precautions were added for the patient: Weight Bearing Precaution - WBAT left LE. On 03/16/2021 the following precautions were removed for the patient: Weight Bearing Precaution - WB AT left LE. On 03/20/2021 the following precautions were added for the patient: Weight Bearing Precaution - WBAT left LE. DISCHARGE PHYSICAL EXAM - Gen Alert and awake Lying in bed No apparent distress Oriented to: person, time, and place - Skin Mild bruising on the arms. Normacephalic - Eyes No abnormalities - ENMT No abnormalities - Neck No abnormalities - CVS RRR - Chest Clear - Abd + bowel sounds - GI Soft Deferred - No abnormalities - Ext No significant edema - MSK 3-4/5 weakness in right upper and 4+/5 in right lower extremity - Neuro 3-4/5 right upper extremity and 4/5 right lower extremity weakness. Decreased to light touch and temp erature or the right. - Psych Mild anxiety. FUNCTIONAL STATUS: - Self-Care A. Eating 7-Ind B. Grooming 6-Edgardo C. Bathing 6-Edgardo D. Dressing - Upper 6-Edgardo E. Dressing - Lower 6-Edgardo F. Toileting 6-Edgardo - Sphincter Control G. Bladder control 6-Edgardo H. Bowel control 6-Edgardo - Transfers Control I. Bed/Chair/Wheelchair 6-Edgardo J. Toilet 6-Edgardo K. Tub/Shower 6-Edgardo - Locomotion L. Walk/Wheelchair (B) 6-Edgardo M. Stairs 5-sup - Communication N. Comprehension (B) 6-Edgardo O. Expression (B) 6-Edgardo - Social Cognition P. Social Interaction 6-Edgardo Q. Problem Solving 6-Edgardo R. Memory 5-sup - Endurance Good - Balance Good - Safety Awareness Good QI SCORES: - Self-Care A. Eating 03-Partial/moderate assistance B. Oral hygiene 03-Partial/moderate assistance C. Toileting hygiene 02-Substantial/maximal assistance E. Shower/bathe self 02-Substantial/maximal assistance F. Upper body dressing 03-Partial/moderate assistance G. Lower body dressing 02-Substantial/maximal assistance H. Putting on/taking off footwear 88-Not attempted due to medical condition or safety concerns - Mobility A. Roll left and right 03-Partial/moderate assistance B. Sit to lying 03-Partial/moderate assistance C. Lying to sitting on side of bed 03-Partial/moderate assistance D. Sit to stand 03-Partial/moderate assistance E. Chair/cgz-xg-mfqhn transfer 03-Partial/moderate assistance F. Toilet transfer 03-Partial/moderate assistance G. Car transfer 88-Not attempted due to medical condition or safety concerns I. Walk 10 feet 03-Partial/moderate assistance J. Walk 50 feet with two turns 03-Partial/moderate assistance K. Walk 150 feet 88-Not attempted due to medical condition or safety concerns L. Walking 10 feet on uneven surfaces 88-Not attempted due to medical condition or safety concerns M. 1 step (curb) 88-Not attempted due to medical condition or safety concerns N. 4 steps 88-Not attempted due to medical condition or safety concerns O. 12 steps 88-Not attempted due to medical condition or safety concerns P. Picking up object 88-Not attempted due to medical condition or safety concerns R. Wheel 50 feet with two turns 88-Not attempted due to medical condition or safety concerns S. Wheel 150 feet 88-Not attempted due to medical condition or safety concerns - Bladder and Bowel Bladder continence Bowel continence - Endurance Fair - Balance Poor - Safety Awareness Fair DISCHARGE INSTRUCTIONS: - N/A Eliquis 5 mg twice daily. DISCHARGE PLAN, FOLLOW UP CARE PROVISIONS: - Estimated Length of Stay (days) 17. - Consensus on plan Discharge plan has been discussed with primary caregiver. Patient/Family is in agreement with the lilliam n. Primary caregiver is in agreement with the plan. - Patient/Family Goals Return home independently. - Planned Living Setting Upon Discharge Home, to live with Family/Relatives. Transitional Living. SIGNATURE PANEL: (CDT)
== END 2021-03-28 14:00 | disposition home health service (06) | DRG 57 ==
LOC: 5TH 03-15 10:27
PROVIDERS: ADMIT Psychiatry & Neurology Neurology with Special Qualifications in Child Neurology; ATTEND Psychiatry & Neurology Neurology with Special Qualifications in Child Neurology
DX: I69.354 Hemiplegia and hemiparesis following cerebral infarction affecting left non-dominant side (principal); I48.20 Chronic atrial fibrillation, unspecified; F80.2 Mixed receptive-expressive language disorder
CPT/HCPCS: 36415; 80048; 81001; 82040; 82947; 83735; 84134; 85025; 87086; 87088; 92507; 92523; 97110; 97116; 97162; 97530; 97542

== ENCOUNTER 2021-06-16 09:56 | Inpatient (IN) | payer MEDICARE ==
[2021-06-16 10:51] LABS: Absolute Lymphocytes (CBC) 1.2 K/uL (0.7-4.9); Basophils % 1.2 % (0-1.3); Hematocrit 35.6 % (39.6-49.0); Lymphocytes % 14.1 % (15.3-44.8); MPV 8.7 fL (7.6-11.3); RBC Red Blood Cell Count 3.67 M/uL (4.33-5.43)
[2021-06-16 10:53] LABS: Urine Blood 3+ (Negative); Urine Glucose Trace (Negative); Urine Protein 2+ (Negative); Urine Specific Gravity >=1.030 (1.005-1.030); Urine pH 5.5 (5.0-7.0)
--- NOTE | 2021-06-16 11:09 | RAD REPORT ---
EXAM DESCRIPTION: CT - Head Brain Wo Cont - 06/16/2021 10:52 am CLINICAL HISTORY: AMS Headache, drowsiness COMPARISON: Head Brain Wo Cont dated 03/07/2021; Head angio dated 01/06/2021; MRA Head Wo Cont dated ; Brain W/Wo Cont dated 03/08/2021; MRA Neck W/Wo Cont dated 03/08/2021 TECHNIQUE: All CT scans are performed using dose optimization technique as appropriate and may inclu de automated exposure control or mA/KV adjustment according to patient size. FINDINGS: No intracranial hemorrhage, hydrocephalus or extra-axial fluid collection.Large area of gl iosis is seen left parietal lobe compatible with old infarct. Old infarct changes also seen in the ri ght cerebellum.Heavy atherosclerosis of the left vertebral artery seen. No midline shift is seen. The paranasal sinuses and mastoids are clear. The calvarium is intact. IMPRESSION: No acute intracranial abnormality.
[2021-06-16 11:34] LABS: Urine Bacteria <20 /HPF (NONE SEEN); Urine RBC >50 /HPF (NONE SEEN); Urine Urothelial Cells <5 /HPF (NONE SEEN)
[2021-06-16] MEDS ORDERED: NA CHLORIDE 0.9% 1,000 ML ONE (11:38)
[2021-06-16 11:57] LABS: Bilirubin Direct 0.4 mg/dL (0-0.2); Bilirubin Total 1.6 mg/dL (0.2-1.0); Potassium 4.2 mmol/L (3.5-5.1); Protein, Total 7.5 g/dL (6.4-8.2)
--- NOTE | 2021-06-16 12:06 | RAD REPORT ---
EXAM DESCRIPTION: RAD - Chest Single View - 06/16/2021 11:47 am CLINICAL HISTORY: AMS Chest pain. COMPARISON: Chest Single View dated 03/07/2021; Chest Single View dated 03/07/2021; Chest Single View dated 01/06/2021; Chest Single View dated 08/11/2020 FINDINGS: Portable technique limits examination quality. Mild interstitial pulmonary edema is seen. The heart is moderately enlarged in size. 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 IMPRESSION: Mild CHF.
--- NOTE | 2021-06-16 12:20 | ER ---
Nurse's Notes [facility] Name: Abisai Salinas Age: 80 yrs Sex: Male : 1940 Arrival Date: 06/16/2021 Time: 10:05 Bed 15 Private MD: Diagnosis: Altered mental status, unspecified;Dehydration Presentation: 06/16 11:01 Chief complaint: EMS states: Alter mental status x 2-3 days, family reports to EMS that tc5 pt was talking to people this am. Coronavirus screen: Vaccine status: Patient reports receiving the 2nd dose of the covid vaccine. Client presents with at least one sign or symptom that may indicate coronavirus-19. Provider contacted for isolation considerations. Ebola Screen: No symptoms or risks identified at this time. Initial Sepsis Screen: Does the patient meet any 2 criteria? Altered Mental Status. Risk Assessment: Do you want to hurt yourself or someone else? Patient reports no desire to harm self or others. Onset of symptoms was June 14, 2021 at 12:00. 11:01 Method Of Arrival: EMS: [facility] tc5 11:01 Acuity: BIB 2 tc5 Triage Assessment: 11:05 General: Appears comfortable, well groomed, Behavior is quiet, Alert to person only.. tc5 Smells of Reports pain to slightest touch anywhere on body. Pain: Denies pain. Cardiovascular: Rhythm is irregular. Respiratory: No deficits noted. GI: No deficits noted. : redness to scrotum, severe pain when scrotum or penis touched. - Family history:: not pertinent. - Hospitalizations: : No recent hospitalization is reported. Screenin:09 Abuse screen: Denies threats or abuse. Denies injuries from another. Nutritional tc5 screening: No deficits noted. Tuberculosis screening: No symptoms or risk factors identified. Fall Risk Mental Status-. Assessment: 11:09 Reassessment: see triage assessment.. tc5 14:04 General: report called to Raffi BORDEN, care of pt transferred, pt has been assigned to room tc5 207.. Vital Signs: 10:57 BP 153 / 72; Pulse 72; Resp 20; Temp 97.8(A); Pulse Ox 100% on R/A; Weight 77.11 kg; mh5 Height 6 ft. 0 in. (182.88 cm); Pain 0/10; 11:01 BP 143 / 57; Pulse 63; Resp 16; Temp 97.8; Pulse Ox 97% ; Weight 77.11 kg; Height 6 ft. tc5 0 in. (182.88 cm); Pain 0/10; 14:05 BP 163 / 87; Pulse 71; Resp 16; Pulse Ox 97% ; tc5 11:01 Body Mass Index 23.06 (77.11 kg, 182.88 cm) tc5 ED Course: 10:05 Patient arrived in ED. rn 10:05 Axel Palomares MD is Attending Physician. rn 10:06 Vielka Stapleton, MICHI is Primary Nurse. tc5 10:51 CT Head Brain wo Cont In Process Unspecified. EDMS 10:55 Urine Culture Sent. mh5 10:55 Urine Microscopic Only Sent. mh5 10:55 Procalcitonin Sent. mh5 10:55 Basic Metabolic Panel Sent. mh5 10:55 LFT's Sent. mh5 10:55 Lactate Sent. mh5 10:55 Urine Culture Sent. mh5 10:55 Urine Microscopic Only Sent. mh5 10:55 Basic Metabolic Panel Sent. mh5 10:55 CBC with Diff Sent. mh5 10:56 Initial lab(s) drawn, by ED staff, sent to lab. Urine collected: clean catch specimen, 5 nikolas colored, EKG done, COVID swab sent to lab. 10:56 Patient has correct armband on for positive identification. Placed in gown. Bed in low mh5 position. Call light in reach. Side rails up X2. Adult w/ patient. Warm blanket given. Pillow given. monitoring manager on. Pulse ox on. NIBP on. 11:05 Triage completed. tc5 11:10 Inserted saline lock: 20 gauge in right antecubital area, using aseptic technique. tc5 Blood collected. 11:10 Ash cath inserted, using sterile technique, 16 Fr., by oh, balloon inflated, to tc5 gravity drainage, urine specimen collected. 11:28 Urine Culture Sent. mh5 11:28 Urine Microscopic Only Sent. mh5 11:29 Procalcitonin Sent. mh5 11:47 XRAY Chest (1 view) In Process Unspecified. EDMS 12:18 Dae Arteaga is Hospitalizing Provider. rn Administered Medications: 11:19 Drug: NS 0.9% 1000 ml Route: IV; Rate: 1000 ml; Site: right antecubital; tc5 Outcome: 12:19 Decision to Hospitalize by Provider. rn 15:08 Patient left the ED. 5 Signatures: Dispatcher [employer] EDAxel Cadena MD MD rn Martinez, Maria [facility] Vielka Stapleton RN RN tc5 Corrections: (The following items were deleted from the chart) 11:53 10:55 CORONAVIRUS+MR.LAB.BRZ drawn and sent. [facility] ELIERKY
--- NOTE | 2021-06-16 12:20 | EDPHYS ---
Physician Documentation [facility] Name: Abisai Salinas Age: 80 yrs Sex: Male : 1940 Arrival Date: 06/16/2021 Time: 10:05 Bed 15 Private MD: ED Physician Axel Palomares HPI: 06/16 10:08 This 80 yrs old Male presents to ER via Unassigned with complaints of Altered rn mental status. 10:08 The patient presents with decreased mental status, decreased responsiveness. Onset: The rn symptoms/episode began/occurred 2 day(s) ago. Possible causes: unknown. Associated signs and symptoms: Pertinent positives: confusion, weakness, Hallucinations. Current symptoms: In the emergency department the patient's symptoms are unchanged from the initial presentation. The patient has experienced similar episodes in the past. It is unknown whether or not the patient has recently seen a physician. Patient's family called 911 for altered mental status that began 2 days ago, generalized weakness, hallucinations, decreased responsiveness. No known trauma or fall.. - Family history:: not pertinent. - Hospitalizations: : No recent hospitalization is reported. ROS: 10:08 Unable to obtain ROS due to altered mental status. rn Exam: 10:08 Constitutional: This is a well developed, well nourished patient who is somnolent but rn awakens to voice and answers some questions Head/Face: Normocephalic, atraumatic. Eyes: Periorbital areas with no swelling, redness, or edema. ENT: Dry mucous membranes Cardiovascular: Irregular rhythm, regular rate. No pulse deficits. Respiratory: No increased work of breathing, no retractions or nasal flaring. Abdomen/GI: Soft, non-tender Skin: Warm, dry MS/ Extremity: Pulses equal, no cyanosis. Neuro: Somnolent, awakens to voice and tactile stimulation, slurred speech and very difficult to understand. Not oriented to place or time. Moves all 4 extremities but weak all over 4 out of 5 strength Vital Signs: 10:57 BP 153 / 72; Pulse 72; Resp 20; Temp 97.8(A); Pulse Ox 100% on R/A; Weight 77.11 kg; mh5 Height 6 ft. 0 in. (182.88 cm); Pain 0/10; 11:01 BP 143 / 57; Pulse 63; Resp 16; Temp 97.8; Pulse Ox 97% ; Weight 77.11 kg; Height 6 ft. tc5 0 in. (182.88 cm); Pain 0/10; 14:05 BP 163 / 87; Pulse 71; Resp 16; Pulse Ox 97% ; tc5 11:01 Body Mass Index 23.06 (77.11 kg, 182.88 cm) tc5 MDM: 10:05 Patient medically screened. rn 12:15 Differential Diagnosis: CVA, electrolyte abnormality, hypoglycemia, intracranial bleed, rn pneumonia, sepsis, TIA, UTI, volume depletion. Data reviewed: vital signs, nurses notes, lab test result(s), EKG, radiologic studies, CT scan, plain films, and as a result, I will admit patient. Data interpreted: desk monitor: rate is 63 beats/min, rhythm is irregular, with no ectopy, Interpretation: atrial fibrillation, Pulse oximetry: on room air is 97 %. Interpretation: normal. Test interpretation: by ED physician or midlevel provider: ECG, plain radiologic studies, Chest x-ray negative for pneumonia. Counseling: I had a detailed discussion with the patient and/or guardian regarding: the historical points, exam findings, and any diagnostic results supporting the discharge/admit diagnosis, lab results, radiology results, the need for further work-up and treatment in the hospital. Response to treatment: There is no appreciated change of the patient's symptoms at this time, and as a result, I will admit patient. Admission orders: after a detailed discussion of the patient's condition and case, the admit orders are written by me. ED course: Unclear etiology of altered mental status over the last [address] head no acute findings. Urine without infection. Chest x-ray without infection. Could be simply the patient not taking his medication. Will admit for further work-up including MRI to rule out CVA given long history of multiple TIAs and CVAs.. 06/16 10:06 Order name: CBC with Diff rn 06/16 10:06 Order name: Basic Metabolic Panel rn 06/16 10:06 Order name: Urine Culture rn 06/16 10:06 Order name: Urine Microscopic Only rn 06/16 10:06 Order name: Procalcitonin rn 06/16 10:06 Order name: Lactate; Complete Time: 12:09 rn 06/16 10:06 Order name: LFT's rn 06/16 10:06 Order name: CBC with Automated Diff; Complete Time: 11:08 EDMS 06/16 10:06 Order name: Basic Metabolic Panel EDMS 06/16 10:06 Order name: Urine Culture EDMS 06/16 10:06 Order name: Urine Microscopic Only; Complete Time: 12:09 EDMS 06/16 10:06 Order name: Procalcitonin; Complete Time: 12:09 EDMS 06/16 10:52 Order name: Urine Dipstick-Ancillary; Complete Time: 11:08 EDMS 06/16 10:06 Order name: IV Start; Complete Time: 10:55 rn 06/16 10:06 Order name: Urine Dipstick-Ancillary (obtain specimen); Complete Time: 10:55 rn 06/16 10:06 Order name: XRAY Chest (1 view); Complete Time: 12:09 rn 06/16 10:06 Order name: CT Head Brain wo Cont; Complete Time: 12:09 rn 06/16 11:53 Order name: SARS-COV-2 RT PCR EDMS Administered Medications: 11:19 Drug: NS 0.9% 1000 ml Route: IV; Rate: 1000 ml; Site: right antecubital; tc5 Disposition Summary: 06/16/21 12:19 Hospitalization Ordered Hospitalization Status: Observation rn Provider: Dae Arteaga rn Location: Telemetry/[facility] (observation) rn Condition: Stable rn Problem: new rn Symptoms: are unchanged rn Bed/Room Type: Standard rn Room Assignment: 207(06/16/21 13:37) eb Diagnosis - Altered mental status, unspecified rn - Dehydration rn Forms: - Medication Reconciliation Form rn - SBAR form rn Signatures: Dispatcher [employer] EDMS Axel Palomares MD MD rn Botello, Elizabeth eb Cassaboom, Theresa RN RN tc5 Corrections: (The following items were deleted from the chart) 11:13 10:08 Constitutional: This is a well developed, well nourished patient who is somnolent rn but awakens to voice and answers some questions Head/Face: Normocephalic, atraumatic. Eyes: Periorbital areas with no swelling, redness, or edema. ENT: Dry mucous membranes Cardiovascular: Regular rate and rhythm. No pulse deficits. Respiratory: No increased work of breathing, no retractions or nasal flaring. Abdomen/GI: Soft, non-tender Skin: Warm, dry MS/ Extremity: Pulses equal, no cyanosis. Neuro: Somnolent, awakens to voice and tactile stimulation, slurred speech and very difficult to understand. Not oriented to place or time. Moves all 4 extremities but weak all over 4 out of 5 strength rn 11:53 10:07 CORONAVIRUS+MR.LAB.BRZ ordered. EDMS EDMS 13:37 12:19 saúl keen
--- NOTE | 2021-06-16 13:37 | P.HP ---
Certification for Inpatient Patient admitted to: Inpatient With expected LOS: >2 Midnights Patient will require the following post-hospital care: Home Health Services (???) Practitioner: I am a practitioner with admitting privileges, knowledge of patient current condition, hospital course, and medical plan of care. Services: Services provided to patient in accordance with Admission requirements found in Title 42 Section 412.3 of the Code of Federal Regulations <Jamarcus Stoner - Last Filed: 06/16/21 13:32> Patient History Date of Service: 06/16/21 Primary Care Provider: Dr. Gallegos Reason for admission: AMS History of Present Illness: CT - Head Brain Wo Cont - 06/16/2021 10:52 am CLINICAL HISTORY: AMS Headache, drowsiness COMPARISON: Head Brain Wo Cont dated 03/07/2021; Head angio dated 01/06/2021; MRA Head Wo Cont dated 03/08/2021; Brain W/Wo Cont dated 03/08/2021; MRA Neck W/Wo Cont dated 03/08/2021 FINDINGS: No intracranial hemorrhage, hydrocephalus or extra-axial fluid collection.Large area of gliosis is seen left parietal lobe compatible with old infarct. Old infarct changes also seen in the right cerebellum. Heavy atherosclerosis of the left vertebral artery seen. No midline shift is seen. The paranasal sinuses and mastoids are clear. The calvarium is intact. IMPRESSION: No acute intracranial abnormality. Chest Single View - 06/16/2021 11:47 am CLINICAL HISTORY: AMS Chest pain. COMPARISON: Chest Single View dated 03/07/2021; Chest Single View dated 03/07/2021; Chest Single View dated 01/06/2021; Chest Single View dated 08/11/2020 FINDINGS: Portable technique limits examination quality. Mild interstitial pulmonary edema is seen. The heart is moderately enlarged in size. 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 IMPRESSION: Mild CHF. Patient labs are remarkable for BUN 21, creatinine 1.38, blood sugar 258, procalcitonin 0.05, and lactate 2.6. Patient is an 80-year-old white male with a history of previous TIAs and strokes. He also has a history of diabetes and heart disease. Patient is in atrial fibrillation and has recently had a watchman procedure done. He was at baseline on Saturday morning, however during the afternoon he began to have a little bit of difficulty following instructions. On Saturday he had increasing confusion and he had significant decline on Saturday evening. On he was having problems with his gait and was having hallucinations. He was having conversations with people who were not present and imagining events that were not occurring. He was quite confused. Saturday morning he was more confused than he was on . His was concerned that he might fall or try to go somewhere. She brought him to the emergency room at about 10Am. - Past Medical/Surgical History Diabetic: Yes -: Diabetes mellitus type 2 -: Hypertension -: BPH -: Athersclerosis -: Melanoma -: Hyperlipidemia -: Atrial fibrillation on chronic anticoagulation therapy -: mini stroke -: Prostate Surgery -: Hernia Repair -: Open Heart Sx -: Carotid Artery Stent -: 7x stents -: 2x melanoma removal on head Psychosocial/ Personal History: Patient lives at home with his and g randdaughter - Social History Smoking Status: Never smoker (Pt did smoke many years ago) Alcohol use: No CD- Drugs: No Caffeine use: Yes Place of Residence: Home <Jamarcus Stoner - Last Filed: 06/16/21 13:32> Date of Service: 06/17/21 <Greg Prery - Last Filed: 06/17/21 10:07> Allergies No Known Allergies Allergy (Verified 03/15/21 14:40) Home Medications: Metformin HCl 500 mg PO BID 05/26/20 Brimonidine Tartrate/Timolol [Combigan 0.2%-0.5% Eye Drops] 1 gtt EACH EYE BID 07/07/20 Travoprost [Travatan Z*] 1 gtt EACH EYE DAILY 07/07/20 Folic Acid 1 mg PO DAILY #30 tablet 07/14/20 Magnesium Oxide [Mag 0X*] 400 mg PO DAILY #30 tab 07/14/20 Memantine HCl [Namenda*] 10 mg PO BID tablet 07/14/20 Potassium Oral Tab [Klor-Con 10 mEq Tab*] 10 meq PO BID #60 tab 08/23/20 Ascorbate Calcium [Vitamin C] 2 tab PO DAILY 03/07/21 Docusate [Colace Cap*] 100 mg PO DAILYPRN PRN 03/07/21 Donepezil [Aricept*] 1 tab PO BID 03/07/21 Famotidine [Pepcid] 1 tab PO DAILYPRN PRN 03/07/21 Polyethylene Glycol 3350 [Miralax] 17 gm PO DAILYPRN PRN 03/07/21 Quetiapine [Seroquel*] 1 tab PO BIDP PRN 03/07/21 Zinc 1 tab PO DAILY 03/07/21 carvediloL [Carvedilol] 1 tab PO BID 03/07/21 Dorzolamide HCl/Pf [Dorzolamide 2% Eye Drop] 1 drop OP BID 03/14/21 Ascorbic Acid [Vitamin C*] 500 mg PO DAILY tablet 03/28/21 Atorvastatin Calcium [Lipitor] 80 mg PO BEDTIME tab 03/28/21 Bisacodyl [Dulcolax*] 10 mg AL DAILY PRN supp 03/28/21 Cholecalciferol (Vitamin D3) [Vitamin D 1000 Iu Tab*] 1,000 unit PO DAILY tab 03/28/21 Combigan 1 drop OPTH BID 03/28/21 Clopidogrel Bisulfate [Clopidogrel] 75 mg PO DAILY 06/16/21 Codeine/APAP [Tylenol #3*] 300 mg PO BID 06/16/21 Glipizide [Glipizide ER] 10 mg PO BID 06/16/21 Review of Systems 10-point ROS is otherwise unremarkable General: Other (Confusion) Eyes: Unremarkable ENT: Other (Difficulty swallowing), Unremarkable Respiratory: SOB with Excertion Cardiovascular: Unremarkable Gastrointestinal: Unremarkable Genitourinary: Unremarkable Musculoskeletal: Other (Legs are weak) Integumentary: Unremarkable Neurological: Weakness, Change in Speech, Confusion, Other (hallucinations) Lymphatics: Unremarkable <Jamarcus Stoner - Last Filed: 06/16/21 13:32> Physical Examination - Physical Exam General: Alert, In no apparent distress, Oriented x1, Cooperative HEENT: Atraumatic, Normocephalic (scars from skin cancer surgery), Other (mucous membranes dry) Neck: Supple, JVD not distended Respiratory: Clear to auscultation bilaterally, Diminished (Pt does not follow commands well. Did not take deep breath) Cardiovascular: Normal pulses, Irregular heart rate/rhythm (A.fib with PVC) Capillary refill: <2 Seconds Gastrointestinal: Normal bowel sounds, Soft and benign Musculoskeletal: No swelling, No contractures, No erythema Integumentary: No rashes, No breakdown Neurological: Abnormal affect, Dementia Urinary: Ash catheter External genitalia: Deferred Rectal: Deferred - Studies Laboratory Data (last 24 hrs) 06/16/21 10:35: Sodium 143, Potassium 4.2, BUN 21 H, Creatinine 1.38 H, Glucose 258 H, Total Bilirubin 1.6 H, AST 10 L, ALT 12, Alkaline Phosphatase 104 06/16/21 10:35: WBC 8.80, Hgb 11.7 L, Hct 35.6 L, Plt Count 256 <Jamarcus Stoner - Last Filed: 06/16/21 13:32> - Studies Laboratory Data (last 24 hrs) 06/16/21 10:35: Sodium 143, Potassium 4.2, BUN 21 H, Creatinine 1.38 H, Glucose 258 H, Total Bilirubin 1.6 H, AST 10 L, ALT 12, Alkaline Phosphatase 104 06/16/21 10:35: WBC 8.80, Hgb 11.7 L, Hct 35.6 L, Plt Count 256 <Greg Perry - Last Filed: 06/17/21 10:07> Assessment and Plan - Plan Assessment Altered mental status Atrial fibrillation with PVC Diabetes History of TIA History of CAD Mild CHF Plan Altered mental status: Bedrest, movement with assistance. Consult with neurology. MRI with contrast. Ultrasound of carotid arteries. Atrial fibrillation with PVC: Monitor patient, as needed O2 as needed. Diabetes: Continue home medications. Accu-Cheks and sliding scale insulin. History of TIA: Currently noncontributory History of CAD: Currently noncontributory Mild CHF: Monitor BNP for overload. Patient has dry mucosa, will begin normal saline at 100 cc/h to hydrate. Monitor MARIA DEL CARMEN's. DVT PPx: Plavix and Aspirin (recovering from Watchman procedure) CODE STATUS:Do not resuscitate Discharge Plan: Home Plan to discharge in: Unknown - Advance Directives Does patient have a Living Will: No Does patient have a Durable POA for Healthcare: No - Code Status/Comfort Care Code Status Assessed: Yes Code Status: Do Not Attempt Resuscitat Critical Care: No Time Spent Managing Pts Care (In Minutes): 70 <Jamarcus Stoner - Last Filed: 06/16/21 13:32> - Problems (Diagnosis) (1) Altered mental status Current Visit: Yes Status: Acute (2) History of stroke Current Visit: Yes Status: Acute (3) Atrial fibrillation Current Visit: No Status: Acute (4) CAD (coronary artery disease) Onset Date: 12/31/17 Current Visit: No Status: Acute (5) Essential hypertension Onset Date: 12/31/17 Current Visit: No Status: Acute (6) GERD (gastroesophageal reflux disease) Onset Date: 12/31/17 Current Visit: No Status: Acute (7) Hyperlipidemia Current Visit: No Status: Acute (8) Type 2 diabetes mellitus Current Visit: No Status: Acute <Greg Perry - Last Filed: 06/17/21 10:07> Date of Service: 06/16/21 Subjective Chart reviewed and agree with HPI as above Review of Systems 10-point ROS is otherwise unremarkable Physical Examination - Vital Signs Reviewed - Physical Exam General: Alert, In no apparent distress, Oriented x2, Demented Neck: Supple, JVD not distended Respiratory: Clear to auscultation bilaterally, Normal air movement Cardiovascular: Regular rate/rhythm, Normal S1 S2 Gastrointestinal: Normal bowel sounds, Soft and benign, Non-distended, No tenderness Musculoskeletal: No clubbing, No swelling, No tenderness Neurological: Normal speech, Normal tone, Sensation intact, Cranial nerves 3-12 intact, Abnormal strength (Generalized weakness) Assessment & Plan - Problems (Diagnosis) (1) Altered mental status Current Visit: Yes Status: Acute (2) History of stroke Current Visit: Yes Status: Acute (3) Atrial fibrillation Current Visit: No Status: Acute (4) CAD (coronary artery disease) Onset Date: 12/31/17 Current Visit: No Status: Acute (5) Essential hypertension Onset Date: 12/31/17 Current Visit: No Status: Acute (6) GERD (gastroesophageal reflux disease) Onset Date: 12/31/17 Current Visit: No Status: Acute (7) Hyperlipidemia Current Visit: No Status: Acute (8) Type 2 diabetes mellitus Current Visit: No Status: Acute - Plan Plan of care as mentioned below: 1. Anti-platelet therapy 2. Statin therapy 3. MRI pending 4. Physical therapy 5. Strict blood pressure and blood sugar control 6. GI and DVT prophylaxis Discharge Plan: Home Plan to discharge in: Greater than 2 days - Advance Directives Does patient have a Living Will: Yes Does patient have a Durable POA for Healthcare: Yes - Code Status/Comfort Care Code Status: Do Not Attempt Resuscitat Critical Care: No Time Spent Managing PTS Care (In Minutes): 35 <Greg Perry - Last Filed: 06/17/21 10:07>
[2021-06-16] MEDS ORDERED: ONDANSETRON 4 MG/2 ML VIAL IV PRN (16:44)
[2021-06-16] MEDS: INSULIN -REGULAR HUMAN 50 UNIT/0.5 ML ML SQ SCH ×2 (16:44→21:00)
[2021-06-16] MEDS: NA CHLORIDE 0.9% 1,000 ML IV SCH (16:44)
--- NOTE | 2021-06-16 18:48 | RAD REPORT ---
EXAM DESCRIPTION: USCarotid Artery Hmuqsfxwi12/8/2021 6:06 pm CLINICAL HISTORY: syncope COMPARISON: February 2021 MRA FINDINGS: The velocity of the right internal carotid artery equals 79 cm/sec. The right ICA/CCA rati o 1.9 The velocity of the left internal carotid artery equals 77 cm/sec. The left ICA/CCA ratio 1. Mild plaque is present within the carotid arteries. The vertebral arteries demonstrate antegrade flow IMPRESSION: Mild plaque within the carotid arteries without evidence of a hemodynamically significan t stenosis NASCET criteria used. Mild 0-49% stenosis Moderate 50-69% stenosis Severe 70-99% stenosis
--- NOTE | 2021-06-16 21:18 | RAD REPORT ---
EXAM DESCRIPTION: MRI - Brain W/Wo Cont - 06/16/2021 9:01 pm CLINICAL HISTORY: Alteration of consciousness/confusion COMPARISON: February 2021 TECHNIQUE: Axial, sagittal, and coronal magnetic images of the brain were obtained. 17 cc MultiHance administered intravenously FINDINGS: 8 centimeter area of abnormal signal left parietal lobe compatible with a late subacute in farction. There is mild enhancement. Serpiginous increased signal on T1 weighted sequences indicate c ortical laminar necrosis. Additional old cerebellar and cerebral infarctions are present. The ventricles are normal in caliber. Diffusion-weighted/ ADC mapping sequences do not demonstrate evidence of an acute infarction. Previously described 4 millimeter area of enhancement left parietal lobe has resolved An extra-axial fluid collection is not noted. Signal within the mastoids may indicate mastoiditis IMPRESSION: An acute infarction is not seen. 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
[2021-06-16] MEDS: MEMANTINE HCL 10 MG TABLET PO SCH (21:33)
[2021-06-16] MEDS: QUETIAPINE 25 MG TAB PO SCH (21:36)
[2021-06-16 22:56] VITALS: BMI 23.0
--- NOTE | 2021-06-17 01:16 | CON ---
Reason For Consultation: Consultation called because of decreased responsiveness, but no new focal weakness per the patient's . History Of Present Illness: He is an 80-year-old patient who had a left parietal and right cerebellar stroke. The strokes are chronic. He had inpatient rehabilitation at [facility] and was discharged home. He completing physical therapy via [facility] home health. After his discharge, his notes he became less responsive over a 2-day period, not speaking as he usually did to her. He began seeing people who are not present, seeing things moving on the wall and ceiling. At [facility], his evaluation included a head CT scan which showed a chronic large left parietal old infarct with gliosis. In addition, there was right cerebellar chronic infarct changes and arthrosclerotic disease in the left vertebral artery. His carotid artery ultrasound showed no evidence of hemodynamically significant stenosis. Workup including his urinalysis suggestive of possible urinary tract infection with 3+ blood, trace ketones, greater than 5 red blood cells, and 2+ protein. He does have cultures pending. His chest x-ray did not show evidence of a pneumonia, but a mild CHF pattern with postsurgical changes seen of a coronary artery bypass grafting that is chronic. Since hospitalization, his level of interaction is improved. He has received some diuresis, and at the time of my evaluation, the patient is actually alert, interactive, responsive to his name. He followed simple commands with repeated instruction. Past Medical History: As noted hypertension, diabetes mellitus, and renal insufficiency. Allergies: NO KNOWN DRUG ALLERGIES. Medications: Aspirin 81 mg a day, Plavix 75 mg daily, glipizide 10 mg daily, Namenda 10 mg twice daily, and Seroquel 25 mg at bedtime. Family History: Noncontributory. Review of Systems: As noted. He has diffuse weakness in both left and right, upper and lower extremities with incoordination, requires moderate assistance to ambulate. Otherwise, mild shortness of breath with exertion, but no recent fevers or chills, no nausea or vomiting. No significant myalgias or arthralgias. Physical Examination: Vital Signs: Blood pressure 154/75, pulse 67, respiratory rate 16, temperature 97.8, oxygen saturation 97%, weight 170 pounds, height 6 feet, BMI 20.1. General: Mr. Salinas is resting in bed. His is at bedside. He is in no acute distress. HEENT: He is normocephalic, atraumatic with poor dentition. Otherwise, his cranial nerves are an essentially intact despite the findings of his stroke. He does have, in terms of motor examination, diffuse weakness with slightly more weakness noted on the right upper and lower extremities compared to the left side, which is 4-/5 versus 5-/5 on the left. Incoordination noted in the left more than right upper extremity. Reflexes, increased on the right, around 2+ in the left, 1+ upper and lower extremities. He has gait. He will be ambulated with the physical therapist once he is evaluated. He does require a walker and at least contact guard at minimum. Assessment: Mr. Salinas is an 80-year-old patient with multiple chronic strokes. No evidence of acute stroke on CT scan or on examination. In terms of the reason for his altered mental status, possibly a mild infection in the urinary tract. He does not have evidence of recent seizure or new focal neurological deficit. He has no significant blood work abnormalities. White blood cell count is unremarkable at 8.8, hemoglobin 11.7, and chemistries show dehydration. Creatinine 1.38, glucose high of 258. His lactic acid elevated at 2.6, but procalcitonin is normal at less than 0.05. Plan: Continue with hydration as per primary team. Continue aspirin and Plavix. Aggressive management of diabetes mellitus and statin for dyslipidemia. If he is evaluated and determined to be appropriate candidate to return to the inpatient rehabilitation, that may be done on Saturday. The patient will be followed while in hospital next week. [place] Voice ID: [id number] Report ID: [id number] SCAR
[2021-06-17] MEDS: NA CHLORIDE 0.9% 1,000 ML IV SCH ×4 (02:44→20:40)
[2021-06-17 06:12] LABS: Absolute Lymphocytes (CBC) 1.7 K/uL (0.7-4.9); Hematocrit 32.6 % (39.6-49.0); Lymphocytes % 21.7 % (15.3-44.8); RBC Red Blood Cell Count 3.34 M/uL (4.33-5.43)
[2021-06-17 06:25] LABS: Albumin 3.3 g/dL (3.4-5.0); Bilirubin Total 1.3 mg/dL (0.2-1.0); Potassium 3.5 mmol/L (3.5-5.1); Protein, Total 6.3 g/dL (6.4-8.2)
[2021-06-17] MEDS: INSULIN -REGULAR HUMAN 50 UNIT/0.5 ML ML SQ SCH ×4 (07:30→20:45)
[2021-06-17] MEDS: MEMANTINE HCL 10 MG TABLET PO SCH ×2 (09:25→20:44)
[2021-06-17] MEDS: CLOPIDOGREL 75 MG TABLET PO SCH (09:25)
[2021-06-17] MEDS: ASPIRIN EC 81 MG TAB PO SCH (09:25)
[2021-06-17] MEDS: glipiZIDE 5 MG TAB PO SCH (09:29)
[2021-06-17] MEDS ORDERED: BISACODYL 10 MG RECTAL SUPP PR PRN (09:59)
--- NOTE | 2021-06-17 10:04 | P.PN ---
Subjective Date of Service: 06/17/21 Patient is doing better. Neurologically better today. MRI negative for an acute infarct. Old infarct from prior parietal stroke seen. Patient seen by Neurology. Appreciate their assistance. Continue with current plan of care at this time with physical therapy and monitoring blood pressure control. Review of Systems 10-point ROS is otherwise unremarkable Physical Examination - Vital Signs Temperature: 97.6 F Blood Pressure: 133/63 Pulse: 62 Respirations: 18 Pulse Ox (%): 100 - Physical Exam General: Alert, In no apparent distress, Oriented x2, Demented HEENT: Atraumatic, PERRLA, EOMI Neck: Supple, JVD not distended Respiratory: Clear to auscultation bilaterally, Normal air movement Cardiovascular: Regular rate/rhythm, Normal S1 S2 Gastrointestinal: Normal bowel sounds, Soft and benign, Non-distended, No tenderness Musculoskeletal: No clubbing, No swelling, No tenderness Neurological: Normal speech, Normal tone, Sensation intact, Cranial nerves 3-12 intact, Abnormal strength (Generalized weakness) - Studies Laboratory Data (last 24 hrs) 06/16/21 10:35: Sodium 143, Potassium 4.2, BUN 21 H, Creatinine 1.38 H, Glucose 258 H, Total Bilirubin 1.6 H, AST 10 L, ALT 12, Alkaline Phosphatase 104 06/16/21 10:35: WBC 8.80, Hgb 11.7 L, Hct 35.6 L, Plt Count 256 Medications List Reviewed: Yes Assessment & Plan - Problems (Diagnosis) (1) Altered mental status Current Visit: Yes Status: Acute (2) History of stroke Current Visit: Yes Status: Acute (3) Atrial fibrillation Current Visit: No Status: Acute (4) CAD (coronary artery disease) Onset Date: 12/31/17 Current Visit: No Status: Acute (5) Essential hypertension Onset Date: 12/31/17 Current Visit: No Status: Acute (6) GERD (gastroesophageal reflux disease) Onset Date: 12/31/17 Current Visit: No Status: Acute (7) Hyperlipidemia Current Visit: No Status: Acute (8) Type 2 diabetes mellitus Current Visit: No Status: Acute - Plan Plan: 1. Anti-platelet therapy 2. Statin therapy 3. MRI reviewed 4. Physical therapy evaluation 5. Out of bed into a chair with meals and attempt to ambulate as well 6. Strict monitoring of hemodynamics and blood pressure control 7. Check hemoglobin A1c monitor blood sugars 8. GI and DVT prophylaxis Discharge Plan: Home Plan to discharge in: Greater than 2 days - Advance Directives Does patient have a Living Will: Yes Does patient have a Durable POA for Healthcare: Yes - Code Status/Comfort Care Code Status: Do Not Attempt Resuscitat Critical Care: No Time Spent Managing PTS Care (In Minutes): 35
[2021-06-17] MEDS: ENOXAPARIN 30 MG/0.3 ML SQ SCH (12:00)
[2021-06-17] MEDS: carvediloL 6.25 MG TAB PO SCH ×2 (12:38→20:42)
[2021-06-17] MEDS: GLIPIZIDE S.A. 5 MG TAB PO SCH (17:39)
[2021-06-17] MEDS: DONEPEZIL HCL 5 MG TAB PO SCH (20:41)
[2021-06-17] MEDS: POTASSIUM CL SA 10 MEQ TAB PO SCH (20:43)
[2021-06-17] MEDS: ATORVASTATIN 80 MG TAB PO SCH (20:43)
[2021-06-17] MEDS: QUETIAPINE 25 MG TAB PO SCH (20:45)
[2021-06-17] MEDS ORDERED: MEMANTINE HCL 10 MG TABLET PO SCH (21:00)
[2021-06-17] MEDS ORDERED: HOME MED 1 EA UNK (Glipizide [Glipizide Er] 10 MG Tab.Er.24) PO SCH (21:00)
[2021-06-18 06:12] LABS: Absolute Lymphocytes (CBC) 1.9 K/uL (0.7-4.9); Basophils % 2.4 % (0-1.3); Hematocrit 29.7 % (39.6-49.0); Lymphocytes % 25.6 % (15.3-44.8); MPV 8.7 fL (7.6-11.3); RBC Red Blood Cell Count 3.09 M/uL (4.33-5.43)
[2021-06-18 06:31] LABS: Albumin 2.9 g/dL (3.4-5.0); Potassium 3.4 mmol/L (3.5-5.1); Protein, Total 5.7 g/dL (6.4-8.2)
[2021-06-18] MEDS: INSULIN -REGULAR HUMAN 50 UNIT/0.5 ML ML SQ SCH ×4 (07:30→20:00)
[2021-06-18] MEDS: GLIPIZIDE S.A. 5 MG TAB PO SCH ×2 (08:00→18:20)
[2021-06-18] MEDS: TRAVOPROST OPTH SCH (09:00)
[2021-06-18] MEDS: DORZOLAMIDE 2% OPTH SCH ×2 (09:00→21:00)
[2021-06-18] MEDS: EYE OPTH SCH ×2 (09:00→21:00)
[2021-06-18] MEDS: COMBIGAN OPTH SCH ×2 (09:00→21:00)
[2021-06-18] MEDS: NA CHLORIDE 0.9% 1,000 ML IV SCH ×3 (09:17→20:04)
[2021-06-18] MEDS: POTASSIUM CL SA 10 MEQ TAB PO SCH ×2 (09:17→20:03)
[2021-06-18] MEDS: ASPIRIN EC 81 MG TAB PO SCH (09:17)
[2021-06-18] MEDS: carvediloL 6.25 MG TAB PO SCH ×2 (09:17→20:03)
[2021-06-18] MEDS: ENOXAPARIN 30 MG/0.3 ML SQ SCH (09:17)
[2021-06-18] MEDS: CLOPIDOGREL 75 MG TABLET PO SCH (09:18)
[2021-06-18] MEDS: MEMANTINE HCL 10 MG TABLET PO SCH ×2 (09:18→20:03)
[2021-06-18] MEDS: DONEPEZIL HCL 5 MG TAB PO SCH ×2 (09:18→20:03)
[2021-06-18] MEDS: MAGNESIUM OXIDE 400 MG TAB PO SCH (09:19)
[2021-06-18] MEDS: glipiZIDE 5 MG TAB PO SCH (09:19)
[2021-06-18] MEDS: ATORVASTATIN 80 MG TAB PO SCH (20:03)
[2021-06-18] MEDS: QUETIAPINE 25 MG TAB PO SCH (20:04)
[2021-06-19] MEDS ORDERED: D5W 1,000 ML IV SCH (02:00)
--- NOTE | 2021-06-19 02:05 | P.PN ---
Date of Service: 06/18/21 Subjective Patient continues to do well. Spoke with and she wants patient to go to an inpatient rehab facility. Patient was at inpatient rehab on the 5th floor of few months ago. That is where they are requesting to go back to inpatient rehabilitation. Review of Systems 10-point ROS is otherwise unremarkable Physical Examination - Vital Signs Reviewed - Physical Exam General: Alert, In no apparent distress, Oriented x2, Demented Respiratory: Clear bilaterally Cardiovascular: Regular rate/rhythm, Normal S1 S2 Gastrointestinal: Normal bowel sounds, Soft and benign, Non-distended, No tenderness Musculoskeletal: No clubbing, No swelling, No tenderness Neurological: Following commands. Generalized weakness Assessment & Plan - Problems (Diagnosis) (1) Altered mental status Current Visit: Yes Status: Acute (2) History of stroke Current Visit: Yes Status: Acute (3) Atrial fibrillation Current Visit: No Status: Acute (4) CAD (coronary artery disease) Onset Date: 12/31/17 Current Visit: No Status: Acute (5) Essential hypertension Onset Date: 12/31/17 Current Visit: No Status: Acute (6) GERD (gastroesophageal reflux disease) Onset Date: 12/31/17 Current Visit: No Status: Acute (7) Hyperlipidemia Current Visit: No Status: Acute (8) Type 2 diabetes mellitus Current Visit: No Status: Acute - Plan Continue with plan of care as mentioned below: 1. Anti-platelet therapy 2. Statin therapy 3. MRI reviewed 4. Physical therapy evaluation appreciated; Consult for inpatient rehab placement 5. Out of bed into a chair with meals and attempt to ambulate as well 6. Strict monitoring of hemodynamics and blood pressure control 7. Check hemoglobin A1c monitor blood sugars 8. GI and DVT prophylaxis
[2021-06-19 06:30] LABS: Albumin 3.8 g/dL (3.4-5.0); Bilirubin Total 1.7 mg/dL (0.2-1.0); Potassium 3.8 mmol/L (3.5-5.1); Protein, Total 7.1 g/dL (6.4-8.2)
[2021-06-19 06:45] LABS: Absolute Lymphocytes (CBC) 1.6 K/uL (0.7-4.9); Basophils % 1.2 % (0-1.3); Hematocrit 38.5 % (39.6-49.0); Lymphocytes % 12.1 % (15.3-44.8); MPV 9.2 fL (7.6-11.3); RBC Red Blood Cell Count 3.99 M/uL (4.33-5.43)
--- NOTE | 2021-06-19 07:10 | EKG ---
Test Date: 2021-06-16 Test Time: 11:09:47 Performance Tester: JAMESON MEASUREMENT RESULTS: Intervals: Rate: 69 MN: QRSD: 108 QT: 416 QTc: 445 [place]: P: MN: QRS: 45 T: 208 INTERPRETIVE STATEMENTS: Atrial fibrillation with premature ventricular or aberrantly conducted complexes ST & T wave abnormality, consider inferolateral ischemia or digitalis effect Abnormal ECG Compared to ECG 03/07/2021 10:37:18 Ventricular premature complex(es) now present Myocardial infarct finding no longer present ST (T wave) deviation still present Possible ischemia still present Electronically Signed On 06-19-21 07:05:04 CDT by Vernon Oleary
[2021-06-19] MEDS: INSULIN -REGULAR HUMAN 50 UNIT/0.5 ML ML SQ SCH ×4 (07:30→21:00)
[2021-06-19] MEDS: DORZOLAMIDE 2% OPTH SCH ×2 (09:00→21:00)
[2021-06-19] MEDS: MAGNESIUM OXIDE 400 MG TAB PO SCH (09:00)
[2021-06-19] MEDS: TRAVOPROST OPTH SCH (09:00)
[2021-06-19] MEDS: EYE OPTH SCH ×2 (09:00→21:00)
[2021-06-19] MEDS: ASPIRIN EC 81 MG TAB PO SCH (09:51)
[2021-06-19] MEDS: CLOPIDOGREL 75 MG TABLET PO SCH (09:51)
[2021-06-19] MEDS: carvediloL 6.25 MG TAB PO SCH (09:52)
[2021-06-19] MEDS: MEMANTINE HCL 10 MG TABLET PO SCH ×2 (09:52→21:40)
[2021-06-19] MEDS: DONEPEZIL HCL 5 MG TAB PO SCH ×2 (09:52→21:11)
[2021-06-19] MEDS: LOSARTAN POTASSIUM 50 MG TABLET PO SCH (09:52)
[2021-06-19] MEDS: POTASSIUM CL SA 10 MEQ TAB PO SCH ×2 (09:52→21:11)
[2021-06-19] MEDS: GLIPIZIDE S.A. 5 MG TAB PO SCH (09:52)
[2021-06-19] MEDS: ENOXAPARIN 30 MG/0.3 ML SQ SCH (10:00)
--- NOTE | 2021-06-19 14:38 | P.PN ---
Subjective Date of Service: 06/19/21 Primary Care Provider: Dr. Gallegos Chief Complaint: AMS Subjective: Demented, Other (Patient confused) Physical Examination - Vital Signs Temperature: 98.6 F Blood Pressure: 170/90 Pulse: 82 Respirations: 25 Pulse Ox (%): 98 - Studies Medications List Reviewed: Yes Assessment & Plan Discharge Plan: Other (SNF) Plan to discharge in: 48 Hours Physician Review Additional Text: COVID: negative CXR: COMPARISON: Chest Single View dated 03/07/2021; Chest Single View dated 03/07/2021; Chest Single View dated 01/06/2021; Chest Single View dated 08/11/2020 FINDINGS: Portable technique limits examination quality. Mild interstitial pulmonary edema is seen. The heart is moderately enlarged in size. 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 IMPRESSION: Mild CHF. CT head: COMPARISON: Head Brain Wo Cont dated 03/07/2021; Head angio dated 01/06/2021; MRA Head Wo Cont dated 03/08/2021; Brain W/Wo Cont dated 03/08/2021; MRA Neck W/Wo Cont dated 03/08/2021 TECHNIQUE: All CT scans are performed using dose optimization technique as appropriate and may include automated exposure control or mA/KV adjustment according to patient size. FINDINGS: No intracranial hemorrhage, hydrocephalus or extra-axial fluid collection.Large area of gliosis is seen left parietal lobe compatible with old infarct. Old infarct changes also seen in the right cerebellum.Heavy atherosclerosis of the left vertebral artery seen. No midline shift is seen. The paranasal sinuses and mastoids are clear. The calvarium is intact. IMPRESSION: No acute intracranial abnormality. MRI Brain: COMPARISON: February 2021 TECHNIQUE: Axial, sagittal, and coronal magnetic images of the brain were obtained. 17 cc MultiHance administered intravenously FINDINGS: 8 centimeter area of abnormal signal left parietal lobe compatible with a late subacute infarction. There is mild enhancement. Serpiginous increased signal on T1 weighted sequences indicate cortical laminar necrosis. Additional old cerebellar and cerebral infarctions are present. The ventricles are normal in caliber. Diffusion-weighted/ ADC mapping sequences do not demonstrate evidence of an acute infarction. Previously described 4 millimeter area of enhancement left parietal lobe has resolved An extra-axial fluid collection is not noted. Signal within the mastoids may indicate mastoiditis IMPRESSION: An acute infarction is not seen. 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 The right ICA/CCA ratio 1.9 The velocity of the left internal carotid artery equals 77 cm/sec. The left ICA/CCA ratio 1. Mild plaque is present within the carotid arteries. The vertebral arteries demonstrate antegrade flow IMPRESSION: Mild plaque within the carotid arteries without evidence of a hemodynamically significant stenosis NASCET criteria used. ECHO: Pending Physical Exam: GENERAL: Patient is confused. Patient with underlying dementia VITAL SIGNS: Reviewed HEENT: Neck supple LUNGS: Some crackles to the bases HEART: Regular rate and rhythm, no appreciable gallops, rubs, murmurs or extra heart sounds ABDOMEN: Soft, nontender, and nondistended. Positive bowel sounds. No hepatosplenomegaly was noted. EXTREMITIES: Without any cyanosis, clubbing, rash, lesions or peripheral edema. NEUROLOGIC: The patient is oriented to person, place and time. Strength and sensation are grossly intact. Face is symmetric. SKIN: Normal color, turgor and temperature. No ulcerations or rashes noted. Impression: Acute encephalopathy complicated with history of multiple CVAs Acute on chronic diastolic CHF Possible aspiration pneumonia Chronic atrial fibrillation not on chronic anticoagulation therapy Hypertension Hyperlipidemia Diabetes mellitus type 2 Plan: Acute encephalopathy complicated with history of multiple CVAs: Patient more confused today. Patient also requiring oxygen. Possible aspiration pneumonia or acute on chronic diastolic CHF. Will discontinue IV fluids. Wean off oxygen. Will start IV Zosyn to empirically cover for pneumonia. Will check chest x-ray today. Continue aspirin, Plavix, Lipitor for his prior CVAs. Case discussed at length with . Patient is DNR. Case discussed with neurology. If his condition continues to decline need to consider skilled placement versus home with home health/hospice or long-term care. We will continue monitor closely. Acute on chronic diastolic CHF: Hold IV fluids. Consider IV Lasix. Will monitor closely. Check x-ray Possible aspiration pneumonia: We will check x-ray. Will start IV Zosyn. Will monitor closely. Wean off oxygen. Chronic atrial fibrillation not on chronic anticoagulation therapy: A. fib rate controlled. Continue with Lovenox for DVT prophylaxis. Continue carvedilol. Patient not on chronic anticoagulation therapy due to risk of bleeding. Hypertension: Continue carvedilol and losartan. Will adjust carvedilol for better control. Hyperlipidemia: Continue Lipitor Diabetes mellitus type 2: Continue Metformin. Discontinue glipizide due to risk of hypoglycemia. Code Status: Addressed in detail with . She has medical power of tax associate attorney. Patient is DNR DVT prophylaxis: Lovenox Advanced Care Planning-30 minutes: Patient does not meet criteria for inpatient rehab at this time. Other considerations would be skilled placement versus home with home health/hospice or long-term care. Time Spent Managing Pts Care (In Minutes): 55
--- NOTE | 2021-06-19 16:35 | RAD REPORT ---
EXAM DESCRIPTION: Penelope Single View06/19/2021 4:14 pm CLINICAL HISTORY: sob COMPARISON: June 16, 2021 FINDINGS: Lung bases are hazy. Upper lobes appear clear. The heart remains enlarged. Postsurgical changes involve the chest Upper lobe vessels are prominent IMPRESSION: Lung bases are hazy which may indicate atelectasis or pneumonia. There may be small ple ural effusions Upper lobe vessels are prominent indicative of pulmonary venous hypertension
[2021-06-19] MEDS: PIPER TAZO 3.375 GM in NA CHLORIDE 0.9% 100 ML IV SCH ×2 (16:38→23:01)
[2021-06-19 19:17] LABS: Urine Appearance CLOUDY (Clear); Urine Bilirubin NEGATIVE (Negative); Urine Blood 3+ (Negative); Urine Color YELLOW (Yellow); Urine Glucose NEGATIVE (Negative); Urine Protein 2+ (Negative); Urine Specific Gravity 1.015 (1.005-1.030)
[2021-06-19 19:19] LABS: Urine Microscopic Reflex ORDER UMIC
[2021-06-19 19:29] LABS: Urine Bacteria <20 /HPF (NONE SEEN); Urine RBC >50 /HPF (NONE SEEN)
[2021-06-19] MEDS: carvediloL 12.5 MG TAB PO SCH (21:10)
[2021-06-19] MEDS: ATORVASTATIN 80 MG TAB PO SCH (21:10)
[2021-06-19] MEDS: QUETIAPINE 25 MG TAB PO SCH (21:11)
--- NOTE | 2021-06-20 05:55 | P.PN ---
Subjective Date of Service: 06/20/21 Primary Care Provider: Dr. Gallegos Chief Complaint: AMS Subjective: Improving (Patient more alert today and somewhat cooperative. Still with underlying dementia and slight confusion.) Physical Examination - Vital Signs Temperature: 97.6 F Blood Pressure: 143/82 Pulse: 75 Respirations: 20 Pulse Ox (%): 97 - Studies Medications List Reviewed: Yes Assessment & Plan Discharge Plan: Other (senior care facility) Plan to discharge in: 48 Hours Physician Review Additional Text: COVID: negative CXR: COMPARISON: Chest Single View dated 03/07/2021; Chest Single View dated 03/07/2021; Chest Single View dated 01/06/2021; Chest Single View dated 08/11/2020 FINDINGS: Portable technique limits examination quality. Mild interstitial pulmonary edema is seen. The heart is moderately enlarged in size. 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 IMPRESSION: Mild CHF. CT head: COMPARISON: Head Brain Wo Cont dated 03/07/2021; Head angio dated 01/06/2021; MRA Head Wo Cont dated 03/08/2021; Brain W/Wo Cont dated 03/08/2021; MRA Neck W/Wo Cont dated 03/08/2021 TECHNIQUE: All CT scans are performed using dose optimization technique as appropriate and may include automated exposure control or mA/KV adjustment according to patient size. FINDINGS: No intracranial hemorrhage, hydrocephalus or extra-axial fluid collection.Large area of gliosis is seen left parietal lobe compatible with old infarct. Old infarct changes also seen in the right cerebellum.Heavy atheroscler osis of the left vertebral artery seen. No midline shift is seen. The paranasal sinuses and mastoids are clear. The calvarium is intact. IMPRESSION: No acute intracranial abnormality. MRI Brain: COMPARISON: February 2021 TECHNIQUE: Axial, sagittal, and coronal magnetic images of the brain were obtained. 17 cc MultiHance administered intravenously FINDINGS: 8 centimeter area of abnormal signal left parietal lobe compatible with a late subacute infarction. There is mild enhancement. Serpiginous increased signal on T1 weighted sequences indicate cortical laminar necrosis. Additional old cerebellar and cerebral infarctions are present. The ventricles are normal in caliber. Diffusion-weighted/ ADC mapping sequences do not demonstrate evidence of an ac [place] infarction. Previously described 4 millimeter area of enhancement left parietal lobe has resolved An extra-axial fluid collection is not noted. Signal within the mastoids may indicate mastoiditis IMPRESSION: An acute infarction is not seen. 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 The right ICA/CCA ratio 1.9 The velocity of the left internal carotid artery equals 77 cm/sec. The left ICA/CCA ratio 1. Mild plaque is present within the carotid arteries. The vertebral arteries demonstrate antegrade flow IMPRESSION: Mild plaque within the carotid arteries without evidence of a hemodynamically significant stenosis NASCET criteria used. ECHO: Pending Follow up CXR 06/19/2021: COMPARISON: June 16, 2021 FINDINGS: Lung bases are hazy. Upper lobes appear clear. The heart remains enlarged. Postsurgical changes involve the chest Upper lobe vessels are prominent IMPRESSION: Lung bases are hazy which may indicate atelectasis or pneumonia. There may be small pleural effusions Upper lobe vessels are prominent indicative of pulmonary venous hypertension Physical Exam: GENERAL: Patient less confused than yesterday. Patient more alert and somewhat cooperative. Currently on 2 L per nasal cannula. VITAL SIGNS: Reviewed HEENT: Neck supple LUNGS: Breathing improved. HEART: Atrial fibrillation rate controlled ABDOMEN: Soft, nontender, and nondistended. Positive bowel sounds. No hepatosplenomegaly was noted. EXTREMITIES: Without any cyanosis, clubbing, rash, lesions or peripheral edema. NEUROLOGIC: Patient with dementia. Patient alert to voice. Still some confusion SKIN: Normal color, turgor and temperature. No ulcerations or rashes noted. Impression: Acute encephalopathy complicated with history of multiple CVAs Acute on chronic diastolic CHF Possible aspiration pneumonia Chronic atrial fibrillation not on chronic anticoagulation therapy Hypertension Hyperlipidemia Diabetes mellitus type 2 Plan: Acute encephalopathy complicated with history of multiple CVAs: Less confusion noted today. Suspect underlying pneumonia. Patient started on IV Zosyn yesterday. Improvement noted. White count improved. We will continue monitor closely. Recheck chest x-ray today. Obtain echocardiogram to evaluate for possible acute on chronic CHF. Physical therapy to evaluate patient. Patient likely not a good candidate for inpatient rehab. is agreeable to skilled placement. Continue with carvedilol, losartan, Lipitor, aspirin, Plavix. Patient on DVT prophylaxis. Patient remains DNR. Continue to monitor closely. Anticipate continued improvement. Physical therapy to evaluate for skilled placement. Acute on chronic diastolic CHF: IV fluids discontinued yesterday. Recheck chest x-ray today. Consider Lasix if chest x-ray shows some pleural effusions. Otherwise continue to monitor. Possible aspiration pneumonia: Recheck chest x-ray today. Continue IV Zosyn. Continue to wean off oxygen. Chronic atrial fibrillation not on chronic anticoagulation therapy: A. fib rate controlled. Continue with Lovenox for DVT prophylaxis. Continue carvedilol. Patient not on chronic anticoagulation therapy due to risk of bleeding. Hypertension: Carvedilol was increased for better control. Will increase losartan for better control. Hyperlipidemia: Continue Lipitor 80 mg daily Diabetes mellitus type 2: Continue Metformin. Glipizide was discontinued due to risk of hypoglycemia. Code Status: Addressed in detail with . She has medical power of real estate attorney. Patient is DNR DVT prophylaxis: Lovenox Advanced Care Planning-30 minutes: Patient does not meet criteria for inpatient rehab at this time. agreeable to skilled placement. Time Spent Managing Pts Care (In Minutes): 55
[2021-06-20 06:06] LABS: Absolute Lymphocytes (CBC) 1.3 K/uL (0.7-4.9); Basophils % 1.4 % (0-1.3); Hematocrit 37.2 % (39.6-49.0); MPV 8.8 fL (7.6-11.3); RBC Red Blood Cell Count 3.92 M/uL (4.33-5.43)
[2021-06-20 06:37] LABS: Albumin 3.9 g/dL (3.4-5.0); Bilirubin Total 2.1 mg/dL (0.2-1.0); Magnesium 1.8 mg/dL (1.8-2.4); Potassium 3.7 mmol/L (3.5-5.1); Protein, Total 7.5 g/dL (6.4-8.2)
[2021-06-20] MEDS ORDERED: Magnesium Sulfate 2gm IVPB 2 G/50 ML BAG IV ONE (07:00)
[2021-06-20] MEDS: INSULIN -REGULAR HUMAN 50 UNIT/0.5 ML ML SQ SCH ×4 (07:30→20:52)
[2021-06-20] MEDS ORDERED: Magnesium Sulfate 1gm IVPB 1 GM/50 ML BAG IV ONE (07:30)
--- NOTE | 2021-06-20 07:51 | EEG ---
CHART: [id number] TEST ID#: [id number] DATE OF STUDY: 06/19/2021 THE EEG WAS RECORDED PORTABLE IN THE PATIENT'S ROOM ON A 17 CHANNEL MACHINE. ELECTRODES WERE APPLIED IN THE USUAL MANNER USING THE INTERNATIONAL 10-20 SYSTEM. THE WAKING BACKGROUND RHYTHM IN THIS RECORD CONSISTS OF POORLY DEVELOPED AND POORLY ORGANIZED WAVES OF 6 HZ., MAXIMAL IN THE POSTERIOR HEAD REGIONS WHICH ATTENUATE NORMALLY WITH EYE OPENING. MODERATE VOLTAGE 1.5-3 HZ ACTIVITY IS EXPRESSED IN THE LEFT CENTRAL REGION. OTHERWISE, THE EEG BACKGROUND SHOWS 6-7 HZ ACTIVITY DIFFUSELY EXPRESSED IN ALL REGIONS. THERE ARE NO FOCAL OR LATERALIZING FEATURES. NO EPILEPTIFORM ACTIVITY APPEARS. SLEEP DID NOT OCCUR. HYPERVENTILATION WAS NOT PERFORMED. PHOTIC STIMULATION PRODUCED NO DRIVING BILATERALLY. IMPRESSION: THIS IS AN ABNORMAL ROUTINE EEG DUE TO THE PRESENCE OF SLOW (DELTA) ACTIVITY IN THE LEFT CENTRAL REGION AND A DIFFUSLY SLOW BACKGROUND. HOWEVER, NO EPILEPTIFORM ACTIVITY OCCURRED DURING THE STUDY. THE FINDINGS IN THE EEG SUGGEST THE PRESENCE OF A FOCAL LESION IN THE LEFT CENTRAL REGION SUPERIMPOSSED IN A DIFFUSE DISTURBANCE IN CEREBRAL FUNCTION.
[2021-06-20] MEDS ORDERED: MAGNESIUM 50% 3 GM in NA CHLORIDE 0.9% 100 ML IV ONE (09:00)
[2021-06-20] MEDS: DORZOLAMIDE 2% OPTH SCH ×2 (09:00→20:50)
[2021-06-20] MEDS: LOSARTAN POTASSIUM 50 MG TABLET PO SCH ×2 (09:00→20:51)
[2021-06-20] MEDS: MAGNESIUM OXIDE 400 MG TAB PO SCH (09:00)
[2021-06-20] MEDS: TRAVOPROST OPTH SCH (09:00)
[2021-06-20] MEDS: EYE OPTH SCH ×2 (09:00→20:50)
[2021-06-20] MEDS: ENOXAPARIN 30 MG/0.3 ML SQ SCH (09:31)
[2021-06-20] MEDS: ASPIRIN EC 81 MG TAB PO SCH (09:31)
[2021-06-20] MEDS: DONEPEZIL HCL 5 MG TAB PO SCH ×2 (09:32→20:51)
[2021-06-20] MEDS: POTASSIUM CL SA 10 MEQ TAB PO SCH ×2 (09:32→20:50)
[2021-06-20] MEDS: MEMANTINE HCL 10 MG TABLET PO SCH ×2 (09:32→20:52)
[2021-06-20] MEDS: THIAMINE HCL 100 MG TABLET PO SCH (09:32)
[2021-06-20] MEDS: CLOPIDOGREL 75 MG TABLET PO SCH (09:32)
[2021-06-20] MEDS: FOLIC ACID 1 MG TABLET PO SCH (09:32)
[2021-06-20] MEDS: carvediloL 12.5 MG TAB PO SCH ×2 (09:33→20:49)
--- NOTE | 2021-06-20 11:13 | ECHO ---
HEIGHT: 5 ft 9 in WEIGHT: 170 lb 0 oz DATE OF STUDY: 06/20/[address]: Montez Robles DO 2-DIMENSIONAL: YES M.MODE: YES DOPPLER: YES COLOR FLOW: YES TDS: NO PORTABLE: NO DEFINITY: NO BUBBLE STUDY: NO DIAGNOSIS: EVALUATE FOR CONGESTIVE HEART FAILURE CARDIAC HISTORY: CATHERIZATION: NO SURGERY: YES PROSTHETIC VALVE: NO PACEMAKER: NO MEASUREMENTS (cm) DIASTOLIC (NORMALS) SYSTOLIC (NORMALS) IVSd 1.0 (0.6-1.2) LA Diam 4.0 (1.9-4.0) LVEF 16% LVIDd 5.4 (3.5-5.7) LVIDs 5.0 (2.0-3.5) %FS 7% LVPWd 1.0 (0.6-1.2) Ao Diam 3.0 (2.0-3.7) 2 DIMENSIONAL ASSESSMENT: RIGHT ATRIUM: NORAMAL LEFT ATRIUM: NORMAL RIGHT VENTRICLE: NORMAL LEFT VENTRICLE: NORMAL SIZE TRICUSPID VALVE: NORMAL MITRAL VALVE: NORMAL PULMONIC VALVE: NORMAL AORTIC VALVE: NORMAL PERICARDIAL EFFUSION: NONE AORTIC ROOT: NORMAL LEFT VENTRICULAR WALL MOTION: SEVERE GLOBAL HYPOKINESIS. DOPPLER/COLOR FLOW: MILD TRICUSPID REGURGITATION. NORMAL RIGHT VENTRICULAR SYSTOLIC PRESSURE. COMMENTS: SEVERE GLOBAL HYPOKINESIS. LEFT VENTRICULAR EJECTION FRACTION 16%. MILD TRICUSPID REGURGITATION. NORMAL RIGHT VENTRICULAR SYSTOLIC PRESSURE. NO CHANGE SINCE 02/2021 TECHNOLOGIST: López STILL
[2021-06-20] MEDS: PIPER TAZO 3.375 GM in NA CHLORIDE 0.9% 100 ML IV SCH ×3 (11:27→22:55)
[2021-06-20] MEDS ORDERED: MAGNESIUM SULFATE 1 gm IVPB 1 GM/100 ML BAG IV ONE (11:30)
[2021-06-20] MEDS ORDERED: D50W 25 GM/50 ML SYRINGE IV PRN (16:56)
[2021-06-20] MEDS: METFORMIN HCL 500 MG TAB PO SCH (16:57)
--- NOTE | 2021-06-20 17:23 | RAD REPORT ---
EXAM DESCRIPTION: RAD - Chest Single View - 06/20/2021 11:45 am CLINICAL HISTORY: follow up possible pneumonia Chest pain. COMPARISON: Chest Single View dated 06/19/2021; Chest Single View dated 06/16/2021; Chest Single View dated 03/07/2021; Chest Single View dated 03/07/2021 FINDINGS: Portable technique limits examination quality. Mild interstitial pulmonary edema suspected. The heart is moderately enlarged in size. Sternotomy wir es are present. IMPRESSION: Mild CHF.
[2021-06-20] MEDS: ATORVASTATIN 80 MG TAB PO SCH (20:50)
[2021-06-20] MEDS: QUETIAPINE 25 MG TAB PO SCH (20:50)
[2021-06-21 05:59] LABS: Absolute Lymphocytes (CBC) 1.5 K/uL (0.7-4.9); Basophils % 0.3 % (0-1.3); Hematocrit 34.2 % (39.6-49.0); Lymphocytes % 18.3 % (15.3-44.8); MPV 9.1 fL (7.6-11.3)
--- NOTE | 2021-06-21 06:04 | P.PN ---
Subjective Date of Service: 06/21/21 Primary Care Provider: Dr. Gallegos Chief Complaint: AMS Subjective: Improving, Doing well, Demented Physical Examination - Vital Signs Temperature: 97.1 F Blood Pressure: 105/51 Pulse: 56 Respirations: 16 Pulse Ox (%): 97 - Studies Medications List Reviewed: Yes Assessment & Plan Discharge Plan: Other (senior care facility) Plan to discharge in: 24 Hours Physician Review Additional Text: COVID: negative CXR: COMPARISON: Chest Single View dated 03/07/2021; Chest Single View dated ; Chest Single View dated 01/06/2021; Chest Single View dated 08/11/2020 FINDINGS: Portable technique limits examination quality. Mild interstitial pulmonary edema is seen. The heart is moderately enlarged in size. 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 IMPRESSION: Mild CHF. CT head: COMPARISON: Head Brain Wo Cont dated 03/07/2021; Head angio dated 01/06/2021; MRA Head Wo Cont dated 03/08/2021; Brain W/Wo Cont dated 03/08/2021; MRA Neck W/Wo Cont dated 03/08/2021 TECHNIQUE: All CT scans are performed using dose optimization technique as appropriate and may include automated exposure control or mA/KV adjustment according to patient size. FINDINGS: No intracranial hemorrhage, hydrocephalus or extra-axial fluid collection.Large area of gliosis is seen left parietal lobe compatible with old infarct. Old infarct changes also seen in the right cerebellum.Heavy atherosclerosis of the left vertebral artery seen. No midline shift is seen. The paranasal sinuses and mastoids are clear. The calvarium is intact. IMPRESSION: No acute intracranial abnormality. MRI Brain: COMPARISON: February 2021 TECHNIQUE: Axial, sagittal, and coronal magnetic images of the brain were obtained. 17 cc MultiHance administered intravenously FINDINGS: 8 centimeter area of abnormal signal left parietal lobe compatible with a late subacute infarction. There is mild enhancement. Serpiginous increased signal on T1 weighted sequences indicate cortical laminar necrosis. Additional old cerebellar and cerebral infarctions are present. The ventricles are normal in caliber. Diffusion-weighted/ ADC mapping sequences do not demonstrate evidence of an acute infarction. Previously described 4 millimeter area of enhancement left parietal lobe has resolved An extra-axial fluid collection is not noted. Signal within the mastoids may indicate mastoiditis IMPRESSION: An acute infarction is not seen. 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 The right ICA/CCA ratio 1.9 The velocity of the left internal carotid artery equals 77 cm/sec. The left ICA/CCA ratio 1. Mild plaque is present within the carotid arteries. The vertebral arteries demonstrate antegrade flow IMPRESSION: Mild plaque within the carotid arteries without evidence of a hemodynamically significant stenosis NASCET criteria used. ECHO: MEASUREMENTS (cm) DIASTOLIC (NORMALS) SYSTOLIC (NORMALS) IVSd 1.0 (0.6-1.2) LA Diam 4.0 (1.9-4.0) LVEF 16% LVIDd 5.4 (3.5-5.7) LVIDs 5.0 (2.0-3.5) %FS 7% LVPWd 1.0 (0.6-1.2) Ao Diam 3.0 (2.0-3.7) 2 DIMENSIONAL ASSESSMENT: RIGHT ATRIUM: NORAMAL LEFT ATRIUM: NORMAL RIGHT VENTRICLE: NORMAL LEFT VENTRICLE: NORMAL SIZE TRICUSPID VALVE: NORMAL MITRAL VALVE: NORMAL PULMONIC VALVE: NORMAL AORTIC VALVE: NORMAL PERICARDIAL EFFUSION: NONE AORTIC ROOT: NORMAL LEFT VENTRICULAR WALL MOTION: SEVERE GLOBAL HYPOKINESIS. DOPPLER/COLOR FLOW: MILD TRICUSPID REGURGITATION. NORMAL RIGHT VENTRICULAR SYSTOLIC PRESSURE. COMMENTS: SEVERE GLOBAL HYPOKINESIS. LEFT VENTRICULAR EJECTION FRACTION 16%. MILD TRICUSPID REGURGITATION. NORMAL RIGHT VENTRICULAR SYSTOLIC PRESSURE. NO CHANGE SINCE 02/2021 Follow up CXR 06/20/2021: COMPARISON: Chest Single View dated 06/19/2021; Chest Single View dated 06/16/2021; Chest Single View dated 03/07/2021; Chest Single View dated 03/07/2021 FINDINGS: Portable technique limits examination quality. Mild interstitial pulmonary edema suspected. The heart is moderately enlarged in size. Sternotomy wires are present. IMPRESSION: Mild CHF. Physical Exam: GENERAL: Patient less confused than yesterday. Patient more alert and somewhat cooperative. Currently on 2 L per nasal cannula. VITAL SIGNS: Reviewed HEENT: Neck supple LUNGS: Breathing improved. HEART: Atrial fibrillation rate controlled ABDOMEN: Soft, nontender, and nondistended. Positive bowel sounds. No hepatosplenomegaly was noted. EXTREMITIES: Without any cyanosis, clubbing, rash, lesions or peripheral edema. NEUROLOGIC: Patient with dementia. Patient alert to voice. Still some confusion SKIN: Normal color, turgor and temperature. No ulcerations or rashes noted. Impression: Acute toxic encephalopathy likely related to aspiration pneumonia complicated with history of multiple CVAs: Acute on chronic diastolic CHF Chronic atrial fibrillation not on chronic anticoagulation therapy Hypertension Hyperlipidemia Diabetes mellitus type 2 Dementia Plan: Acute toxic encephalopathy likely related to aspiration pneumonia complicated with history of multiple CVAs: Patient appears to be back to his baseline. Less confusion noted. Patient with underlying dementia. Overall improved. Patient remains on 2 L per nasal cannula. Continue to wean off. Will transition IV Zosyn to Augmentin. Case discussed at length with . wants to pursue skilled placement at discharge. Continue physical therapy. Continue with carvedilol, losartan, Lipitor, aspirin, Plavix. Patient on DVT prophylaxis. Patient remains DNR. Await approval from skilled placement Acute on chronic diastolic CHF: Overall improved. Will monitor closely. Wean off oxygen Chronic atrial fibrillation not on chronic anticoagulation therapy: A. fib rate controlled. Continue with Lovenox for DVT prophylaxis. Continue carvedilol. Patient not on chronic anticoagulation therapy due to risk of bleeding. Hypertension: Carvedilol was increased for better control. Continue with losartan Hyperlipidemia: Continue Lipitor 80 mg daily Diabetes mellitus type 2: Continue Metformin. Glipizide was discontinued due to risk of hypoglycemia. Dementia: Continue with Aricept, Namenda and folic acid Code Status: Addressed in detail with . She has medical power of environmental attorney. Patient is DNR DVT prophylaxis: Lovenox Advanced Care Planning-30 minutes: has agreed to skilled placement. Await approval. Time Spent Managing Pts Care (In Minutes): 55
[2021-06-21 06:14] LABS: Albumin 3.4 g/dL (3.4-5.0); Bilirubin Total 1.3 mg/dL (0.2-1.0); Magnesium 2.1 mg/dL (1.8-2.4); Potassium 3.8 mmol/L (3.5-5.1); Protein, Total 6.6 g/dL (6.4-8.2)
[2021-06-21] MEDS: INSULIN -REGULAR HUMAN 50 UNIT/0.5 ML ML SQ SCH ×4 (07:30→20:23)
[2021-06-21] MEDS: METFORMIN HCL 500 MG TAB PO SCH ×2 (08:00→17:00)
[2021-06-21] MEDS: DORZOLAMIDE 2% OPTH SCH ×2 (09:00→20:22)
[2021-06-21] MEDS: EYE OPTH SCH ×2 (09:00→20:22)
[2021-06-21] MEDS: TRAVOPROST OPTH SCH ×2 (09:00→20:21)
[2021-06-21] MEDS: MAGNESIUM OXIDE 400 MG TAB PO SCH (09:00)
[2021-06-21] MEDS: ASPIRIN EC 81 MG TAB PO SCH (09:10)
[2021-06-21] MEDS: carvediloL 12.5 MG TAB PO SCH ×2 (09:10→20:21)
[2021-06-21] MEDS: THIAMINE HCL 100 MG TABLET PO SCH (09:11)
[2021-06-21] MEDS: POTASSIUM CL SA 10 MEQ TAB PO SCH ×2 (09:11→20:20)
[2021-06-21] MEDS: CLOPIDOGREL 75 MG TABLET PO SCH (09:11)
[2021-06-21] MEDS: MEMANTINE HCL 10 MG TABLET PO SCH ×2 (09:11→20:20)
[2021-06-21] MEDS: DONEPEZIL HCL 5 MG TAB PO SCH ×2 (09:11→20:21)
[2021-06-21] MEDS: LOSARTAN POTASSIUM 50 MG TABLET PO SCH ×2 (09:12→20:21)
[2021-06-21] MEDS: FOLIC ACID 1 MG TABLET PO SCH (09:12)
[2021-06-21] MEDS: ENOXAPARIN 30 MG/0.3 ML SQ SCH (09:13)
[2021-06-21] MEDS: PIPER TAZO 3.375 GM in NA CHLORIDE 0.9% 100 ML IV SCH (09:14)
[2021-06-21] MEDS: ATORVASTATIN 80 MG TAB PO SCH (20:20)
[2021-06-21] MEDS: AMOX/K CLAV 500 MG TAB PO SCH (20:20)
[2021-06-21] MEDS: QUETIAPINE 25 MG TAB PO SCH (20:20)
[2021-06-22 05:47] LABS: Absolute Lymphocytes (CBC) 2.2 K/uL (0.7-4.9); Basophils % 0.6 % (0-1.3); Hematocrit 31.5 % (39.6-49.0); Lymphocytes % 24.9 % (15.3-44.8); MPV 9.2 fL (7.6-11.3)
--- NOTE | 2021-06-22 05:50 | P.PN ---
Subjective Date of Service: 06/22/21 Primary Care Provider: Dr. Gallegos Chief Complaint: AMS Subjective: Improving, Other Physical Examination - Vital Signs Temperature: 97 F Blood Pressure: 108/55 Pulse: 53 Respirations: 19 Pulse Ox (%): 97 - Studies Medications List Reviewed: Yes Assessment & Plan Discharge Plan: Other (alf facility) Plan to discharge in: 24 Hours Physician Review Additional Text: COVID: negative CXR: COMPARISON: Chest Single View dated 03/07/2021; Chest Single View dated 03/07/2021; Chest Single View dated 01/06/2021; Chest Single View dated 08/11/2020 FINDINGS: Portable technique limits examination quality. Mild interstitial pulmonary edema is seen. The heart is moderately enlarged in size. 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 IMPRESSION: Mild CHF. CT head: COMPARISON: Head Brain Wo Cont dated 03/07/2021; Head angio dated 01/06/2021; MRA Head Wo Cont dated 03/08/2021; Brain W/Wo Cont dated 03/08/2021; MRA Neck W/Wo Cont dated 03/08/2021 TECHNIQUE: All CT scans are performed using dose optimization technique as appropriate and may include automated exposure control or mA/KV adjustment according to patient size. FINDINGS: No intracranial hemorrhage, hydrocephalus or extra-axial fluid collection.Large area of gliosis is seen left parietal lobe compatible with old infarct. Old infarct changes also seen in the right cerebellum.Heavy atherosclerosis of the left vertebral artery seen. No midline shift is seen. The paranasal sinuses and mastoids are clear. The calvarium is intact. IMPRESSION: No acute intracranial abnormality. MRI Brain: COMPARISON: February 2021 TECHNIQUE: Axial, sagittal, and coronal magnetic images of the brain were obtained. 17 cc MultiHance administered intravenously FINDINGS: 8 centimeter area of abnormal signal left parietal lobe compatible with a late subacute infarction. There is mild enhancement. Serpiginous increased signal on T1 weighted sequences indicate cortical laminar necrosis. Additional old cerebellar and cerebral infarctions are present. The ventricles are normal in caliber. Diffusion-weighted/ ADC mapping sequences do not demonstrate evidence of an acute infarction. Previously described 4 millimeter area of enhancement left parietal lobe has resolved An extra-axial fluid collection is not noted. Signal within the mastoids may indicate mastoiditis IMPRESSION: An acute infarction is not seen. 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 The right ICA/CCA ratio 1.9 The velocity of the left internal carotid artery equals 77 cm/sec. The left ICA/CCA ratio 1. Mild plaque is present within the carotid arteries. The vertebral arteries demonstrate antegrade flow IMPRESSION: Mild plaque within the carotid arteries without evidence of a hemodynamically significant stenosis NASCET criteria used. ECHO: MEASUREMENTS (cm) DIASTOLIC (NORMALS) SYSTOLIC (NORMALS) IVSd 1.0 (0.6-1.2) LA Diam 4.0 (1.9-4.0) LVEF 16% LVIDd 5.4 (3.5-5.7) LVIDs 5.0 (2.0-3.5) %FS 7% LVPWd 1.0 (0.6-1.2) Ao Diam 3.0 (2.0-3.7) 2 DIMENSIONAL ASSESSMENT: RIGHT ATRIUM: NORAMAL LEFT ATRIUM: NORMAL RIGHT VENTRICLE: NORMAL LEFT VENTRICLE: NORMAL SIZE TRICUSPID VALVE: NORMAL MITRAL VALVE: NORMAL PULMONIC VALVE: NORMAL AORTIC VALVE: NORMAL PERICARDIAL EFFUSION: NONE AORTIC ROOT: NORMAL LEFT VENTRICULAR WALL MOTION: SEVERE GLOBAL HYPOKINESIS. DOPPLER/COLOR FLOW: MILD TRICUSPID REGURGITATION. NORMAL RIGHT VENTRICULAR SYSTOLIC PRESSURE. COMMENTS: SEVERE GLOBAL HYPOKINESIS. LEFT VENTRICULAR EJECTION FRACTION 16%. MILD TRICUSPID REGURGITATION. NORMAL RIGHT VENTRICULAR SYSTOLIC PRESSURE. NO CHANGE SINCE 02/2021 Follow up CXR 06/20/2021: COMPARISON: Chest Single View dated 06/19/2021; Chest Single View dated 06/16/2021; Chest Single View dated 03/07/2021; Chest Single View dated 03/07/2021 FINDINGS: Portable technique limits examination quality. Mild interstitial pulmonary edema suspected. The heart is moderately enlarged in size. Sternotomy wires are present. IMPRESSION: Mild CHF. Physical Exam: GENERAL: Less confusion today. Currently on 2 L per nasal cannula VITAL SIGNS: Reviewed HEENT: Neck supple LUNGS: Clear.. HEART: Atrial fibrillation rate controlled ABDOMEN: Soft, nontender, and nondistended. Positive bowel sounds. No hepatosplenomegaly was noted. EXTREMITIES: Without any cyanosis, clubbing, rash, lesions or peripheral edema. NEUROLOGIC: Patient with dementia. Patient alert to voice. Still some confusion SKIN: Normal color, turgor and temperature. No ulcerations or rashes noted. Impression: Acute toxic encephalopathy likely related to aspiration pneumonia complicated with history of multiple CVAs: Acute on chronic diastolic CHF Chronic atrial fibrillation not on chronic anticoagulation therapy Hypertension Hyperlipidemia Diabetes mellitus type 2 Dementia Chronic renal disease stage III Plan: Acute toxic encephalopathy likely related to aspiration pneumonia complicated with history of multiple CVAs: Overall stable. Less confusion noted today. Patient with underlying dementia. Patient appears to be at his baseline. Currently on Augmentin. Encourage oral intake. Patient remains on 2 L per nasal cannula. Continue to wean off. Case discussed at length with . Will consult dietary to help with daily needs. Awaiting approval for skilled placement. Acute on chronic diastolic CHF: Overall improved. Will monitor closely. Wean off oxygen Chronic atrial fibrillation not on chronic anticoagulation therapy: A. fib rate controlled. Continue with Lovenox for DVT prophylaxis. Continue carvedilol. Patient not on chronic anticoagulation therapy due to risk of bleeding. Hypertension: Continue carvedilol and losartan Hyperlipidemia: Continue Lipitor 80 mg daily Diabetes mellitus type 2: Blood sugar stable with A1c 6.7. Will discontinue Metformin due to chronic renal disease. Glipizide remains discontinued due to risk of hypoglycemia. Need to consider other options or continue with diet controlled regimen. Dementia: Continue with Aricept, Namenda and folic acid Chronic renal disease stage III: We will monitor this closely. Encourage oral intake. Code Status: Addressed in detail with . She has medical power of collections attorney. Patient is DNR DVT prophylaxis: Lovenox Advanced Care Planning-30 minutes: has agreed to skilled placement. Await approval. Time Spent Managing Pts Care (In Minutes): 55
[2021-06-22 06:07] LABS: Albumin 3.2 g/dL (3.4-5.0); Potassium 3.8 mmol/L (3.5-5.1); Protein, Total 6.2 g/dL (6.4-8.2)
[2021-06-22] MEDS: INSULIN -REGULAR HUMAN 50 UNIT/0.5 ML ML SQ SCH ×4 (07:30→19:36)
[2021-06-22] MEDS: MAGNESIUM OXIDE 400 MG TAB PO SCH (09:00)
[2021-06-22] MEDS: POTASSIUM CL SA 10 MEQ TAB PO SCH ×2 (09:15→19:33)
[2021-06-22] MEDS: THIAMINE HCL 100 MG TABLET PO SCH (09:15)
[2021-06-22] MEDS: FOLIC ACID 1 MG TABLET PO SCH (09:15)
[2021-06-22] MEDS: ENOXAPARIN 30 MG/0.3 ML SQ SCH (09:15)
[2021-06-22] MEDS: AMOX/K CLAV 500 MG TAB PO SCH ×2 (09:15→19:34)
[2021-06-22] MEDS: CLOPIDOGREL 75 MG TABLET PO SCH (09:16)
[2021-06-22] MEDS: ASPIRIN EC 81 MG TAB PO SCH (09:16)
[2021-06-22] MEDS: DONEPEZIL HCL 5 MG TAB PO SCH ×2 (09:16→19:33)
[2021-06-22] MEDS: LOSARTAN POTASSIUM 50 MG TABLET PO SCH ×2 (09:16→19:33)
[2021-06-22] MEDS: METFORMIN HCL 500 MG TAB PO SCH (09:16)
[2021-06-22] MEDS: MEMANTINE HCL 10 MG TABLET PO SCH ×2 (09:16→19:33)
[2021-06-22] MEDS: EYE OPTH SCH ×2 (09:17→19:35)
[2021-06-22] MEDS: DORZOLAMIDE 2% OPTH SCH ×2 (09:17→19:35)
[2021-06-22] MEDS: carvediloL 12.5 MG TAB PO SCH ×2 (09:19→19:34)
[2021-06-22] MEDS: QUETIAPINE 25 MG TAB PO SCH (19:33)
[2021-06-22] MEDS: ATORVASTATIN 80 MG TAB PO SCH (19:33)
[2021-06-22] MEDS: TRAVOPROST OPTH SCH (19:35)
--- NOTE | 2021-06-23 05:55 | P.PN ---
Subjective Date of Service: 06/23/21 Primary Care Provider: Dr. Gallegos Chief Complaint: AMS Subjective: Demented Physical Examination - Vital Signs Temperature: 97.8 F Blood Pressure: 118/58 Pulse: 60 Respirations: 18 Pulse Ox (%): 97 - Studies Medications List Reviewed: Yes Assessment & Plan Discharge Plan: Other (nursing home facility) Plan to discharge in: 24 Hours Physician Review Additional Text: COVID: negative CXR: COMPARISON: Chest Single View dated 03/07/2021; Chest Single View dated 03/07/2021; Chest Single View dated 01/06/2021; Chest Single View dated 08/11/2020 FINDINGS: Portable technique limits examination quality. Mild interstitial pulmonary edema is seen. The heart is moderately enlarged in size. 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 IMPRESSION: Mild CHF. CT head: COMPARISON: Head Brain Wo Cont dated 03/07/2021; Head angio dated 01/06/2021; MRA Head Wo Cont dated 03/08/2021; Brain W/Wo Cont dated 03/08/2021; MRA Neck W/Wo Cont dated 03/08/2021 TECHNIQUE: All CT scans are performed using dose optimization technique as appropriate and may include automated exposure control or mA/KV adjustment according to patient size. FINDINGS: No intracranial hemorrhage, hydrocephalus or extra-axial fluid collection.Large area of gliosis is seen left parietal lobe compatible with old infarct. Old infarct changes also seen in the right cerebellum.Heavy atherosclerosis of the left vertebral artery seen. No midline shift is seen. The paranasal sinuses and mastoids are clear. The calvarium is intact. IMPRESSION: No acute intracranial abnormality. MRI Brain: COMPARISON: February 2021 TECHNIQUE: Axial, sagittal, and coronal magnetic images of the brain were obtained. 17 cc MultiHance administered intravenously FINDINGS: 8 centimeter area of abnormal signal left parietal lobe compatible with a late subacute infarction. There is mild enhancement. Serpiginous increased signal on T1 weighted sequences indicate cortical laminar necrosis. Additional old cerebellar and cerebral infarctions are present. The ventricles are normal in caliber. Diffusion-weighted/ ADC mapping sequences do not demonstrate evidence of an acute infarction. Previously described 4 millimeter area of enhancement left parietal lobe has resolved An extra-axial fluid collection is not noted. Signal within the mastoids may indicate mastoiditis IMPRESSION: An acute infarction is not seen. 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 The right ICA/CCA ratio 1.9 The velocity of the left internal carotid artery equals 77 cm/sec. The left ICA/CCA ratio 1. Mild plaque is present within the carotid arteries. The vertebral arteries demonstrate antegrade flow IMPRESSION: Mild plaque within the carotid arteries without evidence of a hemodynamically significant stenosis NASCET criteria used. ECHO: MEASUREMENTS (cm) DIASTOLIC (NORMALS) SYSTOLIC (NORMALS) IVSd 1.0 (0.6-1.2) LA Diam 4.0 (1.9-4.0) LVEF 16% LVIDd 5.4 (3.5-5.7) LVIDs 5.0 (2.0-3.5) %FS 7% LVPWd 1.0 (0.6-1.2) Ao Diam 3.0 (2.0-3.7) 2 DIMENSIONAL ASSESSMENT: RIGHT ATRIUM: NORAMAL LEFT ATRIUM: NORMAL RIGHT VENTRICLE: NORMAL LEFT VENTRICLE: NORMAL SIZE TRICUSPID VALVE: NORMAL MITRAL VALVE: NORMAL PULMONIC VALVE: NORMAL AORTIC VALVE: NORMAL PERICARDIAL EFFUSION: NONE AORTIC ROOT: NORMAL LEFT VENTRICULAR WALL MOTION: SEVERE GLOBAL HYPOKINESIS. DOPPLER/COLOR FLOW: MILD TRICUSPID REGURGITATION. NORMAL RIGHT VENTRICULAR SYSTOLIC PRESSURE. COMMENTS: SEVERE GLOBAL HYPOKINESIS. LEFT VENTRICULAR EJECTION FRACTION 16%. MILD TRICUSPID REGURGITATION. NORMAL RIGHT VENTRICULAR SYSTOLIC PRESSURE. NO CHANGE SINCE 02/2021 Follow up CXR 06/20/2021: COMPARISON: Chest Single View dated 06/19/2021; Chest Single View dated 06/16/2021; Chest Single View dated 03/07/2021; Chest Single View dated 03/07/2021 FINDINGS: Portable technique limits examination quality. Mild interstitial pulmonary edema suspected. The heart is moderately enlarged in size. Sternotomy wires are present. IMPRESSION: Mild CHF. Physical Exam: GENERAL: Currently on room air. Mild confusion noted today. But stable patient with underlying dementia VITAL SIGNS: Reviewed HEENT: Neck supple LUNGS: Clear.. HEART: Atrial fibrillation rate controlled ABDOMEN: Soft, nontender, and nondistended. Positive bowel sounds. No hepatosplenomegaly was noted. EXTREMITIES: Without any cyanosis, clubbing, rash, lesions or peripheral edema. NEUROLOGIC: Patient with dementia. Patient alert to voice. Still some confusion SKIN: Normal color, turgor and temperature. No ulcerations or rashes noted. Impression: Acute toxic encephalopathy likely related to aspiration pneumonia complicated with history of multiple CVAs: Acute on chronic diastolic CHF Chronic atrial fibrillation not on chronic anticoagulation therapy Hypertension Hyperlipidemia Diabetes mellitus type 2 Dementia Chronic renal disease stage III Plan: Acute toxic encephalopathy likely related to aspiration pneumonia complicated with history of multiple CVAs: Patient remained stable today. Mild confusion noted but with underlying dementia. Patient on room air. Continue Augmentin for 7 days. Encourage oral intake. at bedside. Continue with plan for transfer to skilled facility once approved. Acute on chronic diastolic CHF: Overall improved. Will monitor closely. Patient remained stable on room air Chronic atrial fibrillation not on chronic anticoagulation therapy: A. fib rate controlled. Continue with Lovenox for DVT prophylaxis. Continue carvedilol. Patient not on chronic anticoagulation therapy due to risk of bleeding. Hypertension: Continue carvedilol and losartan Hyperlipidemia: Continue Lipitor 80 mg daily Diabetes mellitus type 2: Blood sugar stable with A1c 6.7. Metformin has been discontinued. Glipizide also discontinued. Continue with diet control regimen. Dementia: Continue with Aricept, Namenda and folic acid Chronic renal disease stage III: We will monitor this closely. Encourage oral intake. Code Status: Addressed in detail with . She has medical power of trust and estates attorney. Patient is DNR DVT prophylaxis: Lovenox Advanced Care Planning-30 minutes: has agreed to skilled placement. Await approval. Time Spent Managing Pts Care (In Minutes): 55
[2021-06-23 06:47] LABS: Absolute Lymphocytes (CBC) 1.8 K/uL (0.7-4.9); Basophils % 0.2 % (0-1.3); Hematocrit 36.6 % (39.6-49.0); Lymphocytes % 18.6 % (15.3-44.8); MPV 9.1 fL (7.6-11.3); Potassium 4.2 mmol/L (3.5-5.1); RBC Red Blood Cell Count 3.83 M/uL (4.33-5.43)
[2021-06-23] MEDS: INSULIN -REGULAR HUMAN 50 UNIT/0.5 ML ML SQ SCH ×4 (07:30→20:29)
[2021-06-23] MEDS: MAGNESIUM OXIDE 400 MG TAB PO SCH (09:00)
[2021-06-23] MEDS: carvediloL 12.5 MG TAB PO SCH ×2 (09:00→20:27)
[2021-06-23] MEDS: ASPIRIN EC 81 MG TAB PO SCH (09:33)
[2021-06-23] MEDS: POTASSIUM CL SA 10 MEQ TAB PO SCH ×2 (09:33→20:27)
[2021-06-23] MEDS: CLOPIDOGREL 75 MG TABLET PO SCH (09:34)
[2021-06-23] MEDS: THIAMINE HCL 100 MG TABLET PO SCH (09:34)
[2021-06-23] MEDS: LOSARTAN POTASSIUM 50 MG TABLET PO SCH ×2 (09:34→20:26)
[2021-06-23] MEDS: AMOX/K CLAV 500 MG TAB PO SCH ×2 (09:34→20:25)
[2021-06-23] MEDS: DONEPEZIL HCL 5 MG TAB PO SCH ×2 (09:34→20:26)
[2021-06-23] MEDS: MEMANTINE HCL 10 MG TABLET PO SCH ×2 (09:34→20:26)
[2021-06-23] MEDS: FOLIC ACID 1 MG TABLET PO SCH (09:37)
[2021-06-23] MEDS: DORZOLAMIDE 2% OPTH SCH ×2 (09:38→20:28)
[2021-06-23] MEDS: ENOXAPARIN 30 MG/0.3 ML SQ SCH (09:38)
[2021-06-23] MEDS: EYE OPTH SCH ×2 (09:38→20:28)
[2021-06-23] MEDS: QUETIAPINE 25 MG TAB PO SCH (20:25)
[2021-06-23] MEDS: ATORVASTATIN 80 MG TAB PO SCH (20:26)
[2021-06-23] MEDS: TRAVOPROST OPTH SCH (20:28)
--- NOTE | 2021-06-24 06:04 | P.PN ---
Subjective Date of Service: 06/24/21 Primary Care Provider: Dr. Gallegos Chief Complaint: AMS Subjective: Doing well, Demented Physical Examination - Vital Signs Temperature: 97.9 F Blood Pressure: 105/53 Pulse: 56 Respirations: 18 Pulse Ox (%): 97 - Studies Medications List Reviewed: Yes Assessment & Plan Discharge Plan: Other ([facility] facility) Plan to discharge in: 48 Hours Physician Review Additional Text: COVID: negative CXR: COMPARISON: Chest Single View dated 03/07/2021; Chest Single View dated 03/07/2021; Chest Single View dated 01/06/2021; Chest Single View dated 08/11/2020 FINDINGS: Portable technique limits examination quality. Mild interstitial pulmonary edema is seen. The heart is moderately enlarged in size. 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 IMPRESSION: Mild CHF. CT head: COMPARISON: Head Brain Wo Cont dated 03/07/2021; Head angio dated 01/06/2021; MRA Head Wo Cont dated 03/08/2021; Brain W/Wo Cont dated 03/08/2021; MRA Neck W/Wo Cont dated 03/08/2021 TECHNIQUE: All CT scans are performed using dose optimization technique as appropriate and may include automated exposure control or mA/KV adjustment according to patient size. FINDINGS: No intracranial hemorrhage, hydrocephalus or extra-axial fluid collection.Large area of gliosis is seen left parietal lobe compatible with old infarct. Old infarct changes also seen in the right cerebellum.Heavy atherosclerosis of the left vertebral artery seen. No midline shift is seen. The paranasal sinuses and mastoids are clear. The calvarium is intact. IMPRESSION: No acute intracranial abnormality. MRI Brain: COMPARISON: February 2021 TECHNIQUE: Axial, sagittal, and coronal magnetic images of the brain were obtained. 17 cc MultiHance administered intravenously FINDINGS: 8 centimeter area of abnormal signal left parietal lobe compatible with a late subacute infarction. There is mild enhancement. Serpiginous increased signal on T1 weighted sequences indicate cortical laminar necrosis. Additional old cerebellar and cerebral infarctions are present. The ventricles are normal in caliber. Diffusion-weighted/ ADC mapping sequences do not demonstrate evidence of an acute infarction. Previously described 4 millimeter area of enhancement left parietal lobe has re solved An extra-axial fluid collection is not noted. Signal within the mastoids may indicate mastoiditis IMPRESSION: An acute infarction is not seen. 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 The right ICA/CCA ratio 1.9 The velocity of the left internal carotid artery equals 77 cm/sec. The left ICA/CCA ratio 1. Mild plaque is present within the carotid arteries. The vertebral arteries demonstrate antegrade flow IMPRESSION: Mild plaque within the carotid arteries without evidence of a hemodynamically significant stenosis NASCET criteria used. ECHO: MEASUREMENTS (cm) DIASTOLIC (NORMALS) SYSTOLIC (NORMALS) IVSd 1.0 (0.6-1.2) LA Diam 4.0 (1.9-4.0) LVEF 16% LVIDd 5.4 (3.5-5.7) LVIDs 5.0 (2.0-3.5) %FS 7% LVPWd 1.0 (0.6-1.2) Ao Diam 3.0 (2.0-3.7) 2 DIMENSIONAL ASSESSMENT: RIGHT ATRIUM: NORAMAL LEFT ATRIUM: NORMAL RIGHT VENTRICLE: NORMAL LEFT VENTRICLE: NORMAL SIZE TRICUSPID VALVE: NORMAL MITRAL VALVE: NORMAL PULMONIC VALVE: NORMAL AORTIC VALVE: NORMAL PERICARDIAL EFFUSION: NONE AORTIC ROOT: NORMAL LEFT VENTRICULAR WALL MOTION: SEVERE GLOBAL HYPOKINESIS. DOPPLER/COLOR FLOW: MILD TRICUSPID REGURGITATION. NORMAL RIGHT VENTRICULAR SYSTOLIC PRESSURE. COMMENTS: SEVERE GLOBAL HYPOKINESIS. LEFT VENTRICULAR EJECTION FRACTION 16%. MILD TRICUSPID REGURGITATION. NORMAL RIGHT VENTRICULAR SYSTOLIC PRESSURE. NO CHANGE SINCE 02/2021 Follow up CXR 06/20/2021: COMPARISON: Chest Single View dated 06/19/2021; Chest Single View dated 06/16/2021; Chest Single View dated 03/07/2021; Chest Single View dated 03/07/2021 FINDINGS: Portable technique limits examination quality. Mild interstitial pulmonary edema suspected. The heart is moderately enlarged in size. Sternotomy wires are present. IMPRESSION: Mild CHF. Physical Exam: GENERAL: Currently on room air. Overall stable. Patient with dementia VITAL SIGNS: Reviewed HEENT: Neck supple LUNGS: Clear.. HEART: Atrial fibrillation rate controlled ABDOMEN: Soft, nontender, and nondistended. Positive bowel sounds. No hepatosplenomegaly was noted. EXTREMITIES: Without any cyanosis, clubbing, rash, lesions or peripheral edema. NEUROLOGIC: Patient with dementia. Patient alert to voice. Minimal confusion SKIN: Normal color, turgor and temperature. No ulcerations or rashes noted. Impression: Acute toxic encephalopathy likely related to aspiration pneumonia complicated with history of multiple CVAs: Acute on chronic diastolic CHF Chronic atrial fibrillation not on chronic anticoagulation therapy Hypertension Hyperlipidemia Diabetes mellitus type 2 Dementia Chronic renal disease stage III Plan: Acute toxic encephalopathy likely related to aspiration pneumonia complicated with history of multiple CVAs: Patient remained stable at this time. Minimal confusion with underlying dementia. Patient on room air. Continue Augmentin for total of 7 days. Continue aspirin and Plavix. Encourage oral intake. Awaiting approval for skilled placement. Acute on chronic diastolic CHF: Overall improved. Will monitor closely. Patient remained stable on room air. Continue aspirin and Plavix. Chronic atrial fibrillation not on chronic anticoagulation therapy: A. fib rate controlled. Continue with Lovenox for DVT prophylaxis. Continue carvedilol. Patient not on chronic anticoagulation therapy due to risk of bleeding. Hypertension: Continue carvedilol 12.5 mg 1 pill twice daily and losartan 50 mg 1 pill twice daily Hyperlipidemia: Continue Lipitor 80 mg daily Diabetes mellitus type 2: Blood sugar stable with A1c 6.7. Blood sugar stable off Metformin and glipizide. Consider low-dose Metformin at discharge. Dementia: Continue with Aricept 5 mg 1 pill twice daily, Namenda 10 mg 1 pill twice daily, Seroquel 25 mg at bedtime, and folic acid 1 mg daily Chronic renal disease stage III: Overall stable.. Encourage oral intake. Code Status: Addressed in detail with . She has medical power of divorce attorney. Patient is DNR DVT prophylaxis: Lovenox Advanced Care Planning-30 minutes: has agreed to skilled placement. Awaiting approval for skilled placement. Time Spent Managing Pts Care (In Minutes): 55
[2021-06-24] MEDS: INSULIN -REGULAR HUMAN 50 UNIT/0.5 ML ML SQ SCH ×4 (07:30→21:00)
[2021-06-24] MEDS: AMOX/K CLAV 500 MG TAB PO SCH ×2 (08:55→22:26)
[2021-06-24] MEDS: ENOXAPARIN 30 MG/0.3 ML SQ SCH (08:55)
[2021-06-24] MEDS: ASPIRIN EC 81 MG TAB PO SCH (08:55)
[2021-06-24] MEDS: FOLIC ACID 1 MG TABLET PO SCH (08:55)
[2021-06-24] MEDS: THIAMINE HCL 100 MG TABLET PO SCH (08:56)
[2021-06-24] MEDS: MEMANTINE HCL 10 MG TABLET PO SCH ×2 (08:56→22:27)
[2021-06-24] MEDS: POTASSIUM CL SA 10 MEQ TAB PO SCH ×2 (08:56→21:00)
[2021-06-24] MEDS: DONEPEZIL HCL 5 MG TAB PO SCH ×2 (08:56→22:27)
[2021-06-24] MEDS: MAGNESIUM OXIDE 400 MG TAB PO SCH (08:56)
[2021-06-24] MEDS: CLOPIDOGREL 75 MG TABLET PO SCH (08:56)
[2021-06-24] MEDS: carvediloL 12.5 MG TAB PO SCH ×2 (08:57→22:28)
[2021-06-24] MEDS: LOSARTAN POTASSIUM 50 MG TABLET PO SCH ×2 (08:57→22:28)
[2021-06-24] MEDS: EYE OPTH SCH ×2 (09:00→22:00)
[2021-06-24] MEDS: DORZOLAMIDE 2% OPTH SCH ×2 (09:00→22:00)
[2021-06-24] MEDS ORDERED: GLUCERNA SHAKE 237 ML CAN PO PRN (12:11)
[2021-06-24] MEDS: ATORVASTATIN 80 MG TAB PO SCH (22:27)
[2021-06-24] MEDS: QUETIAPINE 25 MG TAB PO SCH (22:27)
[2021-06-24] MEDS: TRAVOPROST OPTH SCH (22:36)
--- NOTE | 2021-06-25 06:04 | P.PN ---
Subjective Date of Service: 06/25/21 Primary Care Provider: Dr. Gallegos Chief Complaint: AMS Subjective: Improving Physical Examination - Vital Signs Temperature: 97.1 F Blood Pressure: 120/60 Pulse: 63 Respirations: 19 Pulse Ox (%): 99 - Studies Medications List Reviewed: Yes Assessment & Plan Discharge Plan: Other (SNF) Plan to discharge in: 24 Hours Physician Review Additional Text: COVID: negative CXR: COMPARISON: Chest Single View dated 03/07/2021; Chest Single View dated 03/07/2021; Chest Single View dated 01/06/2021; Chest Single View dated 08/11/2020 FINDINGS: Portable technique limits examination quality. Mild interstitial pulmonary edema is seen. The heart is moderately enlarged in size. 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 IMPRESSION: Mild CHF. CT head: COMPARISON: Head Brain Wo Cont dated 03/07/2021; Head angio dated 01/06/2021; MRA Head Wo Cont dated 03/08/2021; Brain W/Wo Cont dated 03/08/2021; MRA Neck W/Wo Cont dated 03/08/2021 TECHNIQUE: All CT scans are performed using dose optimization technique as appropriate and may include automated exposure control or mA/KV adjustment according to patient size. FINDINGS: No intracranial hemorrhage, hydrocephalus or extra-axial fluid collection.Large area of gliosis is seen left parietal lobe compatible with old infarct. Old infarct changes also seen in the right cerebellum.Heavy atherosclerosis of the left vertebral artery seen. No midline shift is seen. The paranasal sinuses and mastoids are clear. The calvarium is intact. IMPRESSION: No acute intracranial abnormality. MRI Brain: COMPARISON: February 2021 TECHNIQUE: Axial, sagittal, and coronal magnetic images of the brain were obtained. 17 cc MultiHance administered intravenously FINDINGS: 8 centimeter area of abnormal signal left parietal lobe compatible with a late subacute infarction. There is mild enhancement. Serpiginous increased signal on T1 weighted sequences indicate cortical laminar necrosis. Additional old cerebellar and cerebral infarctions are present. The ventricles are normal in caliber. Diffusion-weighted/ ADC mapping sequences do not demonstrate evidence of an acute infarction. Previously described 4 millimeter area of enhancement left parietal lobe has resolved An extra-axial fluid collection is not noted. Signal within the mastoids may indicate mastoiditis IMPRESSION: An acute infarction is not seen. 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 The right ICA/CCA ratio 1.9 The velocity of the left internal carotid artery equals 77 cm/sec. The left ICA/CCA ratio 1. Mild plaque is present within the carotid arteries. The vertebral arteries demonstrate antegrade flow IMPRESSION: Mild plaque within the carotid arteries without evidence of a hemodynamically significant stenosis NASCET criteria used. ECHO: MEASUREMENTS (cm) DIASTOLIC (NORMALS) SYSTOLIC (NORMALS) IVSd 1.0 (0.6-1.2) LA Diam 4.0 (1.9-4.0) LVEF 16% LVIDd 5.4 (3.5-5.7) LVIDs 5.0 (2.0-3.5) %FS 7% LVPWd 1.0 (0.6-1.2) Ao Diam 3.0 (2.0-3.7) 2 DIMENSIONAL ASSESSMENT: RIGHT ATRIUM: NORAMAL LEFT ATRIUM: NORMAL RIGHT VENTRICLE: NORMAL LEFT VENTRICLE: NORMAL SIZE TRICUSPID VALVE: NORMAL MITRAL VALVE: NORMAL PULMONIC VALVE: NORMAL AORTIC VALVE: NORMAL PERICARDIAL EFFUSION: NONE AORTIC ROOT: NORMAL LEFT VENTRICULAR WALL MOTION: SEVERE GLOBAL HYPOKINESIS. DOPPLER/COLOR FLOW: MILD TRICUSPID REGURGITATION. NORMAL RIGHT VENTRICULAR SYSTOLIC PRESSURE. COMMENTS: SEVERE GLOBAL HYPOKINESIS. LEFT VENTRICULAR EJECTION FRACTION 16%. MILD TRICUSPID REGURGITATION. NORMAL RIGHT VENTRICULAR SYSTOLIC PRESSURE. NO CHANGE SINCE 02/2021 Follow up CXR 06/20/2021: COMPARISON: Chest Single View dated 06/19/2021; Chest Single View dated 06/16/2021; Chest Single View dated 03/07/2021; Chest Single View dated 03/07/2021 FINDINGS: Portable technique limits examination quality. Mild interstitial pulmonary edema suspected. The heart is moderately enlarged in size. Sternotomy wires are present. IMPRESSION: Mild CHF. Physical Exam: GENERAL: Currently on room air. Overall stable. Patient with dementia VITAL SIGNS: Reviewed HEENT: Neck supple LUNGS: Clear.. HEART: Atrial fibrillation rate controlled ABDOMEN: Soft, nontender, and nondistended. Positive bowel sounds. No hepatosplenomegaly was noted. EXTREMITIES: Without any cyanosis, clubbing, rash, lesions or peripheral edema. NEUROLOGIC: Patient with dementia. Patient alert to voice. Minimal confusion SKIN: Normal color, turgor and temperature. No ulcerations or rashes noted. Impression: Acute toxic encephalopathy likely related to aspiration pneumonia complicated with history of multiple CVAs: Acute on chronic diastolic CHF Chronic atrial fibrillation not on chronic anticoagulation therapy Hypertension Hyperlipidemia Diabetes mellitus type 2 Dementia Chronic renal disease stage III Plan: Acute toxic encephalopathy likely related to aspiration pneumonia complicated with history of multiple CVAs: Patient doing well at this time. Patient remained stable at this time. Minimal confusion with underlying dementia. Patient on room air. Continue Augmentin for total of 7 days. Continue aspirin and Plavix. Encourage oral intake. Awaiting approval for skilled placement. Care discussed with in detail today. I will turn the service over to the hospitalist tomorrow. I will go plan of care with him. Acute on chronic diastolic CHF: Overall improved. Will monitor closely. Patient remained stable on room air. Continue aspirin and Plavix. Chronic atrial fibrillation not on chronic anticoagulation therapy: A. fib rate controlled. Continue with Lovenox for DVT prophylaxis. Continue carvedilol. Patient not on chronic anticoagulation therapy due to risk of bleeding. Hypertension: Continue carvedilol 12.5 mg 1 pill twice daily and losartan 50 mg 1 pill twice daily Hyperlipidemia: Continue Lipitor 80 mg daily Diabetes mellitus type 2: Blood sugar stable with A1c 6.7. Blood sugar stable off Metformin and glipizide. Consider low-dose Metformin at discharge. Dementia: Continue with Aricept 5 mg 1 pill twice daily, Namenda 10 mg 1 pill twice daily, Seroquel 25 mg at bedtime, and folic acid 1 mg daily Chronic renal disease stage III: Overall stable.. Encourage oral intake. Code Status: Addressed in detail with . 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 Patient is DNR DVT prophylaxis: Lovenox Advanced Care Planning-30 minutes: has agreed to skilled placement. Awaiting approval for skilled placement. Time Spent Managing Pts Care (In Minutes): 55
[2021-06-25] MEDS: INSULIN -REGULAR HUMAN 50 UNIT/0.5 ML ML SQ SCH ×4 (07:30→21:00)
[2021-06-25] MEDS: MAGNESIUM OXIDE 400 MG TAB PO SCH (09:00)
[2021-06-25] MEDS: AMOX/K CLAV 500 MG TAB PO SCH ×2 (11:02→22:13)
[2021-06-25] MEDS: carvediloL 12.5 MG TAB PO SCH ×2 (11:02→22:13)
[2021-06-25] MEDS: CLOPIDOGREL 75 MG TABLET PO SCH (11:02)
[2021-06-25] MEDS: DORZOLAMIDE 2% OPTH SCH ×2 (11:03→22:17)
[2021-06-25] MEDS: EYE OPTH SCH ×2 (11:03→22:17)
[2021-06-25] MEDS: LOSARTAN POTASSIUM 50 MG TABLET PO SCH ×2 (11:03→22:14)
[2021-06-25] MEDS: DONEPEZIL HCL 5 MG TAB PO SCH ×2 (11:03→22:13)
[2021-06-25] MEDS: ASPIRIN EC 81 MG TAB PO SCH (11:04)
[2021-06-25] MEDS: FOLIC ACID 1 MG TABLET PO SCH (11:04)
[2021-06-25] MEDS: ENOXAPARIN 30 MG/0.3 ML SQ SCH (11:05)
[2021-06-25] MEDS: THIAMINE HCL 100 MG TABLET PO SCH (11:05)
[2021-06-25] MEDS: MEMANTINE HCL 10 MG TABLET PO SCH ×2 (11:05→22:15)
[2021-06-25] MEDS: QUETIAPINE 25 MG TAB PO SCH (22:12)
[2021-06-25] MEDS: ATORVASTATIN 80 MG TAB PO SCH (22:13)
[2021-06-25] MEDS: TRAVOPROST OPTH SCH (22:16)
[2021-06-26] MEDS: INSULIN -REGULAR HUMAN 50 UNIT/0.5 ML ML SQ SCH ×4 (07:30→21:00)
[2021-06-26] MEDS: carvediloL 12.5 MG TAB PO SCH ×2 (09:00→21:00)
[2021-06-26] MEDS: FOLIC ACID 1 MG TABLET PO SCH (09:05)
[2021-06-26] MEDS: DONEPEZIL HCL 5 MG TAB PO SCH ×2 (09:05→21:15)
[2021-06-26] MEDS: ASPIRIN EC 81 MG TAB PO SCH (09:05)
[2021-06-26] MEDS: MEMANTINE HCL 10 MG TABLET PO SCH ×2 (09:06→21:18)
[2021-06-26] MEDS: CLOPIDOGREL 75 MG TABLET PO SCH (09:06)
[2021-06-26] MEDS: THIAMINE HCL 100 MG TABLET PO SCH (09:06)
[2021-06-26] MEDS: LOSARTAN POTASSIUM 50 MG TABLET PO SCH ×2 (09:06→21:17)
[2021-06-26] MEDS: AMOX/K CLAV 500 MG TAB PO SCH ×2 (09:06→21:15)
[2021-06-26] MEDS: DORZOLAMIDE 2% OPTH SCH ×2 (09:07→21:18)
[2021-06-26] MEDS: EYE OPTH SCH ×2 (09:07→21:18)
[2021-06-26] MEDS: MAGNESIUM OXIDE 400 MG TAB PO SCH (09:07)
[2021-06-26] MEDS: ENOXAPARIN 30 MG/0.3 ML SQ SCH (09:07)
[2021-06-26] MEDS: ATORVASTATIN 80 MG TAB PO SCH (21:18)
[2021-06-26] MEDS: TRAVOPROST OPTH SCH (21:19)
[2021-06-26] MEDS: QUETIAPINE 25 MG TAB PO SCH (21:19)
[2021-06-27] MEDS: INSULIN -REGULAR HUMAN 50 UNIT/0.5 ML ML SQ SCH (07:30)
[2021-06-27 07:57] VITALS: O2SAT 97
[2021-06-27] MEDS: ENOXAPARIN 30 MG/0.3 ML SQ SCH (09:00)
[2021-06-27] MEDS: LOSARTAN POTASSIUM 50 MG TABLET PO SCH (09:00)
[2021-06-27] MEDS: carvediloL 12.5 MG TAB PO SCH (09:00)
[2021-06-27] MEDS: FOLIC ACID 1 MG TABLET PO SCH (09:00)
[2021-06-27] MEDS: DONEPEZIL HCL 5 MG TAB PO SCH (09:00)
[2021-06-27] MEDS: DORZOLAMIDE 2% OPTH SCH (09:00)
[2021-06-27] MEDS: EYE OPTH SCH (09:00)
[2021-06-27] MEDS: MEMANTINE HCL 10 MG TABLET PO SCH (09:00)
[2021-06-27] MEDS: MAGNESIUM OXIDE 400 MG TAB PO SCH (09:00)
[2021-06-27] MEDS: CLOPIDOGREL 75 MG TABLET PO SCH (09:00)
[2021-06-27] MEDS: ASPIRIN EC 81 MG TAB PO SCH (09:00)
[2021-06-27] MEDS: THIAMINE HCL 100 MG TABLET PO SCH (09:00)
[2021-06-27] MEDS: AMOX/K CLAV 500 MG TAB PO SCH (09:00)
--- NOTE | 2021-06-27 09:52 | P.PN ---
Date of Service: 06/26/21 Subjective Pt continues to do well. Review of Systems 10-point ROS is otherwise unremarkable Physical Examination - Vital Signs Reviewed - Physical Exam General: Alert, In no apparent distress, Oriented x2, Demented Respiratory: Clear bilaterally Cardiovascular: Regular rate/rhythm, Normal S1 S2 Gastrointestinal: Normal bowel sounds, Soft and benign, Non-distended, No tenderness Musculoskeletal: No clubbing, No swelling, No tenderness Neurological: Following commands. Generalized weakness Assessment & Plan - Problems (Diagnosis) (1) Altered mental status Current Visit: Yes Status: Acute (2) History of stroke Current Visit: Yes Status: Acute (3) Atrial fibrillation Current Visit: No Status: Acute (4) CAD (coronary artery disease) Onset Date: 12/31/17 Current Visit: No Status: Acute (5) Essential hypertension Onset Date: 12/31/17 Current Visit: No Status: Acute (6) GERD (gastroesophageal reflux disease) Onset Date: 12/31/17 Current Visit: No Status: Acute (7) Hyperlipidemia Current Visit: No Status: Acute (8) Type 2 diabetes mellitus Current Visit: No Status: Acute - Plan Continue with plan of care as mentioned below: 1. Anti-platelet therapy 2. Statin therapy 3. MRI reviewed 4. Physical therapy evaluation appreciated; Consult for inpatient rehab placement 5. Out of bed into a chair with meals and attempt to ambulate as well 6. Strict monitoring of hemodynamics and blood pressure control 7. Check hemoglobin A1c monitor blood sugars 8. GI and DVT prophylaxis
--- NOTE | 2021-06-27 09:54 | P.DS ---
Discharge Date: 06/27/21 Primary Care Provider: Dr. Gallegos Disposition: TRANSFER TO SNF - MEDICAL Discharge Condition: GOOD Reason for Admission: AMS - Problems (1) Altered mental status Status: Acute (2) History of stroke Status: Acute (3) Atrial fibrillation Status: Acute (4) CAD (coronary artery disease) Onset Date: 12/31/17 Status: Acute (5) Essential hypertension Onset Date: 12/31/17 Status: Acute (6) GERD (gastroesophageal reflux disease) Onset Date: 12/31/17 Status: Acute (7) Hyperlipidemia Status: Acute (8) Type 2 diabetes mellitus Status: Acute Brief History of Present Illness: Patient is an 80-year-old white male with a history of previous TIAs and strokes. He also has a history of diabetes and heart disease. Patient is in atrial fibrillation and has recently had a watchman procedure done. He was at baseline on Saturday morning, however during the afternoon he began to have a little bit of difficulty following instructions. On Saturday he had increasing confusion and he had significant decline on Saturday evening. On he was having problems with his gait and was having hallucinations. He was having conversations with people who were not present and imagining events that were not occurring. He was quite confused. Saturday morning he was more confused than he was on . His was concerned that he might fall or try to go somewhere. She brought him to the emergency room at about 10Am. Hospital Course: Patient mental status has improved. Patient clinical symptoms are improving. Patient will be discharged to [facility]. At this time, patient is stable for discharge to intermediate facility. Vital Signs/Physical Exam: Temp Pulse Resp BP Pulse Ox 99.7 F 58 18 113/58 L 97 06/27/21 08:00 06/27/21 08:00 06/27/21 08:00 06/27/21 08:00 06/27/21 08:00 General: Alert, In no apparent distress, Oriented x3 Laboratory Data at Discharge: WBC 9.70 K/uL (4.3-10.9) 06/23/21 06:18 Hgb 12.5 g/dL (13.6-17.9) L 06/23/21 06:18 Hct 36.6 % (39.6-49.0) L D 06/23/21 06:18 Plt Count 258 K/uL (152-406) 06/23/21 06:18 Sodium 142 mmol/L (136-145) 06/23/21 06:18 Potassium 4.2 mmol/L (3.5-5.1) 06/23/21 06:18 BUN 26 mg/dL (7-18) H 06/23/21 06:18 Creatinine 1.23 mg/dL (0.55-1.3) 06/23/21 06:18 Glucose 138 mg/dL (74-106) H 06/23/21 06:18 Magnesium 2.0 mg/dL (1.8-2.4) 06/23/21 06:18 Total Bilirubin 1.0 mg/dL (0.2-1.0) 06/22/21 05:28 AST 9 U/L (15-37) L 06/22/21 05:28 ALT 10 U/L (12-78) L 06/22/21 05:28 Alkaline Phosphatase 77 U/L (45-117) 06/22/21 05:28 Home Medications: Metformin HCl 500 mg PO BID 05/26/20 Brimonidine Tartrate/Timolol [Combigan 0.2%-0.5% Eye Drops] 1 gtt EACH EYE BID 07/07/20 Travoprost [Travatan Z*] 1 gtt EACH EYE DAILY 07/07/20 Folic Acid 1 mg PO DAILY #30 tablet 07/14/20 Magnesium Oxide [Mag 0X*] 400 mg PO DAILY #30 tab 07/14/20 Memantine HCl [Namenda*] 10 mg PO BID tablet 07/14/20 Potassium Oral Tab [Klor-Con 10 mEq Tab*] 10 meq PO BID #60 tab 08/23/20 Ascorbate Calcium [Vitamin C] 2 tab PO DAILY 03/07/21 Docusate [Colace Cap*] 100 mg PO DAILYPRN PRN 03/07/21 Donepezil [Aricept*] 1 tab PO BID 03/07/21 Famotidine [Pepcid] 1 tab PO DAILYPRN PRN 03/07/21 Polyethylene Glycol 3350 [Miralax] 17 gm PO DAILYPRN PRN 03/07/21 Quetiapine [Seroquel*] 1 tab PO BIDP PRN 03/07/21 Zinc 1 tab PO DAILY 03/07/21 carvediloL [Carvedilol] 1 tab PO BID 03/07/21 Dorzolamide HCl/Pf [Dorzolamide 2% Eye Drop] 1 drop OP BID 03/14/21 Atorvastatin Calcium [Lipitor] 80 mg PO BEDTIME tab 03/28/21 Bisacodyl [Dulcolax*] 10 mg DE DAILY PRN supp 03/28/21 Cholecalciferol (Vitamin D3) [Vitamin D 1000 Iu Tab*] 1,000 unit PO DAILY tab 03/28/21 Combigan 1 drop OPTH BID 03/28/21 Clopidogrel Bisulfate [Clopidogrel] 75 mg PO DAILY 06/16/21 Codeine/APAP [Tylenol #3*] 300 mg PO BID 06/16/21 Glipizide [Glipizide ER] 10 mg PO BID 06/16/21 Amox/Clavulanate [Augmentin 500-125 mg Tab*] 500 mg PO BID #14 tab 06/27/21 Clopidogrel Bisulfate [Plavix*] 75 mg PO DAILY #30 tablet 06/27/21 Glucerna Shake [Glucerna*] 237 ml PO BID PRN #60 can 06/27/21 Losartan Potassium [Cozaar*] 50 mg PO BID #60 tablet 06/27/21 Memantine HCl [Namenda*] 10 mg PO BID #60 tablet 06/27/21 Quetiapine [Seroquel*] 25 mg PO BEDTIME #30 tab 06/27/21 Thiamine HCl [Vitamin B-1*] 100 mg PO DAILY #30 tablet 06/27/21 New Medications: Amox/Clavulanate [Augmentin 500-125 mg Tab*] 500 mg PO BID #14 tab Losartan Potassium [Cozaar*] 50 mg PO BID #60 tablet Glucerna Shake [Glucerna*] 237 ml PO BID PRN #60 can PRN Reason: If PO intake is < 50% Memantine HCl [Namenda*] 10 mg PO BID #60 tablet Clopidogrel Bisulfate [Plavix*] 75 mg PO DAILY #30 tablet Quetiapine [Seroquel*] 25 mg PO BEDTIME #30 tab Thiamine HCl [Vitamin B-1*] 100 mg PO DAILY #30 tablet Physician Discharge Instructions: OK TO DC IV AND DC HOME FOLLOW-UP WITH PRIMARY CARE PROVIDER IN 1-2 WEEKS FOLLOW-UP WITH NEUROLOGY IN 1-2 WEEKS RETURN TO THE ER IF symptoms worsens CALL or TEXT DR. FIERRO AT [phone] IF ANY QUESTIONS REGARDING HOSPITAL STAY. PLEASE CALL THE FLOOR AT [phone] IF ANY MEDICATION OR NURSING QUESTIONS. Diet: Renal Activity: Fall precautions Followup: Rico Rodríguez MD [ASSOCIATE-ACTIVE - CAN ADMIT] - NONE,NONE [Primary Care Provider] - Time spent managing pt's care (in minutes): 35
[2021-06-27 12:38] VITALS: BP 134/67; TEMP 97.4
== END 2021-06-27 13:53 | DRG 177 ==
LOC: ER 09:56 → ERHOLD 13:17 → 2ND 15:06
PROVIDERS: ADMIT Hospitalist; ATTEND Hospitalist
DX: J69.0 Pneumonitis due to inhalation of food and vomit (principal); G92.9 Unspecified toxic encephalopathy; I50.33 Acute on chronic diastolic (congestive) heart failure; I13.0 Hypertensive heart and chronic kidney disease with heart failure and stage 1 through stage 4 chronic kidney disease, or unspecified chronic kidney disease; I48.20 Chronic atrial fibrillation, unspecified; N18.30 Chronic kidney disease, stage 3 unspecified; E11.22 Type 2 diabetes mellitus with diabetic chronic kidney disease; E78.5 Hyperlipidemia, unspecified; F01.50 Vascular dementia, unspecified severity, without behavioral disturbance, psychotic disturbance, mood disturbance, and anxiety; Z86.73 Personal history of transient ischemic attack (TIA), and cerebral infarction without residual deficits; Z20.822 Contact with and (suspected) exposure to COVID-19
CPT/HCPCS: 36415; 51702; 70450; 70553; 71045; 80048; 80053; 80076; 81003; 81015; 82947; 83036; 83605; 83735; 83880; 84145; 85025; 87086; 87088; 92610; 93005; 93306; 93880; 94760; 95816; 97110; 97112; 97116; 97161; 97165; 97530; 99285; A9577; J1650; J2543; J3475; J7030; U0003

== ENCOUNTER 2021-08-28 09:46 | Inpatient (IN) | payer MEDICARE ==
--- OUTSIDE RECORDS SUMMARY | 2021-08-28 09:52 | XMS REPORT | Continuity of Care Document ---
:1940 Author Organization [facility] t Address [address] [place] [address] Care Team Providers Name Role Phone Pcp Primary Care Physician Unavailable Sha Attending Clinician Unavailable LINNETTE Attending Clinician Unavailable REVA, BIANCA Attending Clinician Unavailable Raslan Admitting Clinician Unavailable REVA, BIANCA Admitting Clinician Unavailable Payers Payer Name Policy Type Policy Number Effective Date Expiration Date S ource Problems Condition Condition Condition Status Onset Resolution Last Treating Co mments Source Name Details Category Date Date Treatment Clinician Date DJD LUMBAR Diagnosis Active 2018-10-22 Memoria PAIN 2-13 09:39:00 l DJD 08:38: Range LUMBAR 00 PAIN Active 10/22/[address] [facility] Erosion of Erosion of Disease Active [facility] other other 05[facility]13 [facility] implanted implanted 00:00: [facility]i [place] mesh to mesh to 00 Center organ or organ or tissue, tissue, initial initial encounter encounter BPH BPH Disease Active [facility] (benign (benign 05-12 [facility] - prostatic prostatic 00:00: Medi [place] hyperplasi hyperplasi 00 Ce nter a) a) Benign Benign Disease Active [facility] prostate prostate 05-11 [facility] - hyperplasi hyperplasi 00:00: Me dical a a 00 Center Incomplete Incomplete Disease Active [facility] bladder bladder 05-11 [facility] - emptying emptying 00:00: Medica l 00 Center Prostate Prostate Disease [facility] cancer [facility] AMS, UTI, Diagnosis Active 2017-12-31 Memoria KIDNEY 4-24 22:28:00 l INJURY AMS, 00:00: Range UTI, 00 KIDNEY INJURY Active 12/31/[address] [facility] INJURY OF Diagnosis Active 2018-01-07 Memoria URETER 4-24 22:03:00 l INJURY 00:00: Edmund OF URETER 00 Active 12/31/[address] [facility] [id number], Diagnosis Active 2018-04-17 Memoria [id number] 3- 16:05:00 l BILATERAL 00:00: Edmund UMBILICAL [id number], 00 OUMAR [id number] BILATERAL UMBILICAL OUMAR Active 12/03/[address] [facility] Chest pain Problem Active 2020-11-02 M emoria (finding) 10-30 22:19:21 l Chest 00:00: Edmund pain 00 (finding) Active 10/30/2012 Problem 11/02/2020 Data migrated from [employer] on 02/05/15. Medical Group,[facility] Kwasi History of History of Problem Resolve [...] diabetes [id number] it y of mellitus mellitus [place] with with Physici hyperglyce hyperglyce an s [...] M emoria d injury 02:22:13 l of ureterBrennen initial Unspecifie encounter d injury of ureter, initial encounter 01/05/[address] [facility] Carotid Problem Active 2020-11-02 Ryan melodie atheroscle 22:19:21 l rosis Carotid Edmund (disorder) atheroscle rosis (disorder) Active Problem 11/02/2020 Medical Group,[facility] Coronary Problem Active 2020-11-02 Mem oria arterioscl 22:19:21 l erosis Coronary Brennen n (disorder) arterioscl erosis (disorder) Active Problem 11/02/2020 [facility] on 02/05/15. Medical Group,[facility] Diabetes Problem Active 2020-11-02 Mem oria mellitus 22:19:21 l (disorder) Diabetes He rmann mellitus (disorder) Active Problem 11/02/2020 Medical Group,[facility] Kwasi Hyperlipid Problem Active 2020-11-02 M emoria emia 22:19:21 l (disorder) Brennen n Hyperlipid emia (disorder) Active Problem 11/02/2020 Medical Group,[facility] Kwasi Hypertensi Problem Active 2020-11-02 M emoria ve 22:19:21 l disorder, Range systemic Hypertensi arterial ve (disorder) disorder, systemic arterial (disorder) Active Problem 11/02/2020 Data migrated from [employer] on 02/05/15. Medical Group,[facility] Kwasi Mitral Problem Active 2020-11-02 Memor ia valve 22:19:21 l regurgitat Mitral Herm donavon ion valve (disorder) regurgitat ion (disorder) Active Problem 11/02/2020 Medical Group,[facility] Kwasi Nonspecifi Problem Active 2020-11-[address]-T 22:19:21 l abnormalit Brennen n y on Nonspecifi electrocar c ST-T diogram abnormalit (finding) y on electrocar diogram (finding) Active Problem 11/02/2020 Medical Group,[facility] K[place] Persistent Problem Active 2020-11-02 M emoria atrial 22:19:21 l fibrillati Brennen n on Persistent (disorder) atrial fibrillati on (disorder) Active Problem 11/02/2020 Medical Group,[facility] K[place]i Tricuspid Problem Active 2020-11-02 Me moria valve 22:19:21 l regurgitat Brennen n ion Tricuspid (disorder) valve regurgitat ion (disorder) Active Problem 11/02/2020 Medical Group,[facility] Kwasi Femoral Problem Active 2020-11-02 Ryan melodie hernia 22:19:21 l (disorder) Femoral Her dickson hernia (disorder) Active Problem 11/02/2020 Medical Group,[facility] Kwasi Gastroesop Problem Active 2020-11-02 M emoria hageal 22:19:21 l reflux Range disease Gastroesop with hageal esophagiti reflux s disease (disorder) with esophagiti s (disorder) Active Problem 11/02/2020 Medical Group,[facility] Glaucoma Problem Active 2020-11-02 Mem oria (disorder) 22:19:21 l Glaucoma Brennen n (disorder) Active Problem 11/02/2020 Medical Group,[facility] [place] Umbilical Problem Active 2020-11-02 Me moria hernia 22:19:21 l (disorder) Brennen n Umbilical hernia (disorder) Active Problem 11/02/2020 Medical Group,[facility] [place] ALTERED Diagnosis Active 2017-12-31 Me moria MENTAL 22:28:00 l STATUS, ALTERED Brennen n UNSPECIFIE MENTAL D STATUS, UNSPECIFIE D Active [facility] UNSPECIFIE Diagnosis Active 2018-01-07 Memoria D INJURY 22:03:00 l OF URETER, Brennen n INITIAL EN UNSPECIFIE D INJURY OF URETER, INITIAL EN Active [facility] AMS/ UTI/ Diagnosis Active 2018-01-01 Memoria DIRECT 19:23:00 l ADMIT AMS/ Edmund UTI/ DIRECT ADMIT Active [facility] Allergies, Adverse Reactions, Alerts Allergy Allergy Status Severity Reaction(s) Onset Inactive Treating Comm ents Source Name Type Date Date Clinician No Known DA Active U [facility] 9-20 Clear s 00:00: Zambrano 00 [facility] No Known DA Active U 0 [facility] Allergie 9-20 Clear s 00:00: Zambrano 00 [facility] No Known DA Active U 0 [facility] Allergie 8- Clear s 00:00: Zambrano 00 [facility] No Known DA Active U 0 [facility] Allergie 8-09 Clear s 00:00: Zambrano 00 [facility] Social History Social Habit Start Date Stop Date Quantity Comments Source Alcohol intake 2018-05-14 2018-05-[address] [facility] - 00:00:00 00:00:00 non-drinker of Medical Ce nter alcohol (finding) Tobacco use and 2018-04-30 2018-04-[address] [facility] Destiny kes - exposure 00:00:00 00:00:00 [facility] Tobacco Comment 2018-04-30 2018-04-30 quit [address] [facility] - 00:00:00 00:00:00 [facility] Social History 2017-12-18 2017-12-18 [facility] ermann 16:53:06 16:53:06 Sex Ass[birth year] At [birth year] KRYSTAL Reilly kes - 00:00:00 00:00:00 [facility] Smoking Status Start Date Stop Date Source Never smoker [facility] Former smoker 2018-04-30 00:00:00 2018-04-30 00:00:00 [facility] Medications Ordered Filled Start Stop Current Ordering Indication Dosage Frequency Signature Comments Components Source Medication Medication Date Date Medication? Clinician (SIG) Name Name lisinopril 0 Yes 20 mg = 1 Me moria 20 mg oral 2-24 tab, PO, l tablet 17:14: Daily, 0 Edmund 00 Refill(s) Aspirin 81 2019-0 Yes 81 mg = 1 Me moria MG Enteric 2-24 tab, PO, l Coated 17:14: Daily, # Range Tablet 00 90 tab, 3 Refill(s) NovoLog 2019-0 Yes SUB-Q, Memoria 2-24 TID-Before l 17:14: Meals, 0 Range 00 Refill(s) lisinopril Yes 40 mg = 1 Me moria 40 mg oral 8-26 tab, PO, l tablet 15:26: Daily, 0 Edmund 00 Refill(s) apixaban 5 2018-0 Yes 5 mg = 1 Mem oria MG Oral 3-29 tab, PO, l Tablet 19:59: BID, # 180 Larissa nn [Eliquis] 56 tab, 3 Refill(s), Pharmacy: [facility] [id number] lisinopril 20190 Yes 5 mg = 1 Mem oria 5 mg oral 2-25 tab, PO, l tablet 16:45: BID, 0 Range 00 Refill(s) sitagliptin 20190 Yes 50 mg = 1 M emoria 50 MG Oral 2-25 tab, PO, l Tablet 16:45: Daily, 0 Range [Januvia] 00 Refill(s) atorvastati Yes 40mg QD Take [address] [facility] (LIPITOR) 9-07 by mouth Luke s - 40 MG 14:03: daily. Medical tablet 36 Center lisinopril 2018-0 Yes 20mg QD Take [address] (PRINIVIL,Z 9-07 by mouth Luke s - ESTRIL) 20 14:03: daily. Medic al MG tablet 36 Center amLODIPine 2018-0 Yes 5mg QD Take [address] (NORVASC) 5 9-07 by mouth Luke s - MG tablet 14:03: daily. Medica l 36 [place] metoprolol 2018-0 Yes 100mg QD Take [address] (TOPROL-XL) 9-07 mg by [facility] - 100 MG 24 14:03: mouth Medical hr tablet 36 daily. [place] apixaban 2018-0 Yes 5mg Q.5D Take 5 [...] mouth Medica l 24 hr 36 daily. [place] capsule travoprost 2018-0 Yes 1[drp] QD Place [address] (TRAVATAN 9-07 drop into [facility] - Z) 0.004 % 14:03: both eyes Me dical Drop 36 nightly. [place] ophthalmic drops brimonidine 2018-0 Yes 1[drp] QD [...] - mg tablet 14:03: daily. Medica l [address] [place] [address] Ciprofloxac Yes 250 mg = 1 Memoria in 250 MG 6-18 tab, PO, l Oral Tablet 15:22: Q12H, X 7 H ermann [Cipro] 00 day, # 14 tab, 0 Refill(s), Pharmacy: [facility] [id number] Eliquis No Notes: Memoria - Same as: l 22:00: Eliquis Edmund 00 [...] = 1 M emoria 500 MG Oral 26 cap, PO, l Capsule 18:56: TID, X [...] ophthalmic 01-02 (Same As: l 02:00: Timoptic, Range 00 Betimol) metoprolol No Notes: Memor ia tartrate 01-02 (Same as: l 02:00: Lopressor) brimonidine No Notes: Ryan melodie ophthalmic 01-02 (Same As: l 02:00: Alphagan) latanoprost No Notes: Ryan melodie ophthalmic - Keep l 02:00: refrigerat 00 ed. (Same as:Xalatan ) Opened bottle may be stored at room temperatur e for 6 weeks Magnesium No Notes: Memori a Sulfate 01-01 WASTE: F/P l 23:00: - Sink; E Range - [facility] Trash Bin travoprost No 1 drp, Memor [...] Crush) albumin No Notes: Memoria human 25% -25 LOT#: l intravenous 10:48: Edmund solution 00 ___ Mfg: WASTE: F/P - Red; E -Red (Same as: Albuminar) "blood product derivative " NS (Bolus) No 1,000 mL, Me moria IV -25 1,000 l 10:48: ml/hr, Infuse Over: 1 hr, Route: IV, 1,000, Drug form: INJ, ONCE, Priority: STAT, Dosing Weight 93.295 kg, Start date: 01/01/18 5:48:00 CDT, Stop date: 01/01/18 5:48:00 CDT Ceftriaxone 2017- No Notes: Ryan melodie 4-25 (Same As: [...] / 4-25 (Same as: l Hydrocodone 04:07: [place] Larissa nn Bitartrate 00 325/5) Do 5 MG Oral not exceed Tablet 4gm/day of acetaminop hen. Sodium 2018-0 No 1,000 mL, Memori a Chloride -25 Rate: 75 l 0.9% IV 04:07: ml/hr, [...] neostigmine 2017-0 No Route: IV, Memoria (ANES) 16 Drug form: l 21:01: INJ, ONCE, Stop date: 12/23/17 16:01:00 CDT ondansetron 0 No Route: IV, Memoria (ANES) 16 Drug form: l 20:52: INJ, ONCE, Stop date: 12/23/17 15:52:00 CDT Hydralazine 2017-0 No 10 mg, Ryan melodie -16 Route: l 19:45: IVP, Q20Min, Dosing Weight 84.091, kg, PRN Elevated BP, Start date: 12/23/17 14:45:00 CDT, Duration: 2 doses or times, Stop date: Limited # of times Ondansetron 2017-0 No 4 mg, Memor ia 16 Route: l 19:45: IVP, ONCE, Dosing Weight 84.091, kg, PRN Nausea & Vomiting, Start date: 12/23/17 14:45:00 CDT Morphine 2017-0 No 2 mg, Memoria 16 Route: l 19:45: IVP, Q5Min, Dosing Weight 84.091, kg, PRN Pain Score 4-6, Start date: 12/23/17 14:45:00 CDT, Duration: 5 doses or times, Stop date: Limited # of times Naloxone 2017-0 No 0.4 mg, Memori a 416 Route: l 19:45: IVP, Range 00 Q2MIN, Dosing Weight 84.091, kg, PRN Narcotic Reversal, Start date: 12/23/17 14:45:00 CDT, Duration: 8 doses or times, Stop date: Limited # of times Flumazenil 2017-0 No 0.2 mg, Ryan melodie 16 Route: l 19:45: IVP, PRN, Range 00 Dosing Weight 84.091, kg, PRN Benzodiaze pine Reversal, Initial dose, Start date: 12/23/17 14:45:00 CDT, Duration: 30 day, Stop date: 01/22/18 14:44:00 CDT Hydromorpho 2017-0 No 0.5 mg, Mem oria ne 4 Route: l 19:45: IVP, Edmund 00 Q5Min, Dosing Weight 84.091, kg, PRN Pain Score 7-10, Start date: 12/23/17 14:45:00 CDT, Duration: 4 doses or times, Stop date: Limited # of times rocuronium 2017-0 No Route: IV, M emoria (ANES) 4-16 [...] Edmund 00 Stop date: 12/23/17 14:02:00 CDT ceFAZolin 2017-0 No Route: IV, Me moria (ANES) 4-16 Drug form: l 19:02: INJ, ONCE, Range 00 Stop date: 12/23/17 14:02:00 CDT acetaminoph 2017-0 No Route: IV, Memoria en (ANES) -16 Drug form: l 10 mg 18:24: INJ, [...] Route: l de 10 MG/ML 16:00: INTRADERM, Range Injectable 00 Dosing Solution Weight 84.091, kg, ONCALL, Start date: 12/23/17 11:00:00 CDT, Duration: 1 doses or times Sodium 2017-0 No 1,000 mL, Memori a Chloride - Rate: 25 l 0.9% IV 15:33: ml/hr, Range 1000 mL 00 Infuse over: 40 hr, [...] tab, PO, l tablet 18:46: Daily, # Range 05 90 tab, 1 Refill(s), Pharmacy: [facility] [place] [id number], DUE FOR AN OFFICE VISIT. PLEASE CALL DR. FLETCHER' S OFFICE TO MAKE AN APT. lisinopril No 20 mg = 1 Me moria 20 mg oral 3-26 tab, PO, l tablet 18:44: Daily, # Range 59 90 tab, 1 Refill(s), Pharmacy: [facility] [place] [address], DUE FOR AN OFFICE VISIT. PLEASE CALL DR. COLVIN 'S OFFICE TO MAKE AN APT. Metoprolol Yes 100 mg = 1 M emoria Succinate 3-26 tab, PO, l ER 100 mg 18:44: Daily, # Herm donavon oral 22 90 tab, 1 tablet, Refill(s), extended Pharmacy: [place] [id number] atorvastati Yes 40 mg = 1 M emoria n 40 mg 3-26 tab, PO, l oral tablet 18:44: Daily, # He rmann 00 90 tab, 1 Refill(s), Pharmacy: [facility] [place] [address] dapaglifloz Yes 5 mg = 1 Me [...] nn [Eliquis] 44 tab, 1 Refill(s), Pharmacy: [facility] [place] [address] PriLOSEC 10 PriLOSEC 10 Yes U nivers MG CPDR MG CPDR [facility] [place] [facility] Atorvastati Atorvastati Yes U nivers [...] Source Systolic (mm Hg) 2020-02-24 14:38:00 Ryan Noonanann Diastolic (mm Hg) 2020-02-24 14:38:00 Mem oriinge Edmund Heart Rate 2020-02-24 14:38:[address] [facility] Height 2020-02-24 14:38:[address] [facility] Weight 2020-02-24 14:38:[address] [facility] BMI Calculated 2020-02-24 14:38:00 Brian Medina Systolic (mm Hg) 2019-11-02 17:12:00 Ryan Noonanann Diastolic (mm Hg) 2019-11-02 17:12:00 Mem orial Range Heart Rate 2019-11-02 17:12:[address] [facility] Height 2019-11-02 17:12:00 180.34 cm Memorial Edmund Weight 2019-11-02 17:12:00 Memorial Edmund BMI Calculated 2019-11-02 17:12:00 Memori al Edmund Systolic (mm Hg) 2019-05-04 15:24:00 Ryan rial Range Diastolic (mm Hg) 2019-05-04 15:24:00 Mem orial Edmund Heart Rate 2019-05-04 15:24:00 Memorial Range Height 2019-05-04 15:24:00 180.34 cm Memorial Edmund Weight 2019-05-04 15:24:00 Memorial Edmund BMI Calculated 2019-05-04 15:24:00 Memori al Edmund BMI Calculated 2018-11-03 16:43:00 Memori al Edmund Weight 2018-11-03 16:43:00 Memorial Range Height 2018-11-03 16:43:00 177.8 cm Memorial Edmund Systolic (mm Hg) 2018-11-03 16:43:00 Ryan rial Edmund Diastolic (mm Hg) 2018-11-03 16:43:00 Mem orial Edmund Heart Rate 2018-11-03 16:43:00 Memorial Edmund Height 2018-09-17 10:37:00 71 [in_us] [facility] Physician s Weight 2018-09-17 10:37:00 198 [lb_av] [facility] Physician s Body Mass Index 2018-09-17 10:37:00 27.62 kg/m2 Unive rsity of Calculated [place] Physician s Heart Rate 2018-05-05 16:44:00 Memorial Edmund Systolic (mm Hg) 2018-05-05 16:44:00 Ryan rial Edmund Diastolic (mm Hg) 2018-05-05 16:44:00 Mem orial Range Weight 2018-05-05 16:44:00 Memorial Edmund BMI Calculated 2018-05-05 16:44:00 Memori al Range Height 2018-05-05 16:44:00 177.8 cm Memorial Edmund BMI Calculated 2018-02-24 15:01:00 Memori al Edmund Weight 2018-02-24 15:01:00 Memorial Range Height 2018-02-24 15:01:00 182.88 cm Memorial Edmund Systolic (mm Hg) 2018-02-24 15:01:00 Ryan rial Edmund Diastolic (mm Hg) 2018-02-24 15:01:00 Mem orial Range Heart Rate 2018-02-24 15:01:00 Memorial Edmund Temperature Oral (F) 2018-01-02 21:08:00 97.8 F Memorial Range Systolic (mm Hg) 2018-01-02 21:08:00 Ryan rial Range Diastolic (mm Hg) 2018-01-02 21:08:00 Mem orial Range Respitory Rate 2018-01-02 21:08:00 Memori al Edmund Heart Rate 2018-01-02 21:08:00 Memorial Edmund Respitory Rate 2018-01-02 16:25:00 Memori al Edmund Temperature Oral (F) 2018-01-02 16:25:00 98.2 F Memorial Range Heart Rate 2018-01-02 16:25:00 Memorial Range Systolic (mm Hg) 2018-01-02 16:25:00 Ryan rial Edmund Diastolic (mm Hg) 2018-01-02 16:25:00 Mem orial Range Heart Rate 2018-01-02 12:58:00 Memorial Edmund Respitory Rate 2018-01-02 12:58:00 Memori al Range Systolic (mm Hg) 2018-01-02 12:58:00 Ryan rial Edmund Diastolic (mm Hg) 2018-01-02 12:58:00 Mem orial Range Temperature Oral (F) 2018-01-02 12:58:00 98.3 F Memorial Range BMI Calculated 2018-01-01 03:40:00 Memori al Range Weight 2018-01-01 03:40:00 Memorial Edmund Height 2018-01-01 03:40:00 182.88 cm Memorial Edmund Systolic (mm Hg) 2017-12-23 21:45:00 Ryan rial Edmund Diastolic (mm Hg) 2017-12-23 21:45:00 Mem orial Edmund Respitory Rate 2017-12-23 21:45:00 Memori al Range Systolic (mm Hg) 2017-12-23 21:39:00 Ryan rial Edmund Diastolic (mm Hg) 2017-12-23 21:39:00 Mem orial Range Respitory Rate 2017-12-23 21:39:00 Memori al Range Systolic (mm Hg) 2017-12-23 21:24:00 Ryan rial Edmund Diastolic (mm Hg) 2017-12-23 21:24:00 Mem orial Range Respitory Rate 2017-12-23 21:24:00 Memori al Edmund Heart Rate 2017-12-23 15:46:00 Memorial Range BMI Calculated 2017-12-18 15:02:00 Memori al Edmund Weight 2017-12-18 15:02:00 Memorial Range Height 2017-12-18 15:02:00 180.34 cm Memorial Edmund BMI Calculated 2017-11-28 16:03:00 Memori al Edmund Heart Rate 2017-11-28 16:03:00 Memorial Range Systolic (mm Hg) 2017-11-28 16:03:00 Ryan rial Range Diastolic (mm Hg) 2017-11-28 16:03:00 Mem orial Edmund Height 2017-11-28 16:03:00 177.8 cm Memorial Edmund Weight 2017-11-28 16:03:00 [facility] Edmund Procedures Procedure Date / Time Performing Clinician Source Performed [id number] 2021-04-19 00:00:00 CRISTIANA [facility] Pre Op Promise 29 Survey 2018-09-10 00:00:00 [facility] Measurement of 2018-02-24 15:04:00 [facility] dickson post-voiding residual urine and/or bladder capacity by ultrasound, non-imaging History of Heart Surgery [facility] History of Angioplasty [facility] Internal Carotid Artery Physicia ns CABG - Coronary artery [facility] Range bypass graft<sup>1</sup> Cardiac [facility] Range catheterization<sup>2</s up> Carotid [facility] Edmund endarterectomy<sup>3</beckett p> Repair of diaphragmatic [facility] Edmund hiatal hernia<sup>4</sup> Encounters Start End Encounter Admission Attending Care Care Encounter Source Date/Time Date/Time Type Type Clinicians Facility Department ID 2021-05-31 Inpatient Sha, HCACL OUTD [facility] 07:30:00 Sonny [id number] 2021-05-29 Inpatient CHET Dalton, KAROLINECL OUTD [facility] 09:00:00 Sonny [id number] [facility] 2021-04-17 Inpatient EL Sha, HCACL DAYS [facility] 09:00:00 Sonny [id number] [facility] 2021-05-31 2021-05-31 Outpatient CHARISSE Wheeler OUTD [id number] [facility] 05:28:00 05:28:00 Sonny 20 [facility] 2021-04-19 2021-04-19 Inpatient CHARISSE Wheeler INTE.02 [id number] [facility] 12:22:00 14:00:00 Sonny [id number] [facility] 2020-10-31 2020-10-31 [place] [id number] Memoria 15:30:00 15:30:00 Pre-Reg r Cardiology 15 l [facility] 2020-02-24 2020-02-25 Outpatient nullFlavo MG Multi 34 [id number] Memoria 14:00:00 04:59:59 r Specialty 16 l [facility] 2019-11-02 2019-11-03 [place] [id number] Memoria 17:00:00 05:59:59 [facility] 2019-05-04 2019-05-05 [place] [id number] Memoria 15:15:00 04:59:59 r [facility] 2018-10-22 2018-11-21 OP Therapy nullFlavo SMR [id number] Memoria 14:38:00 04:59:00 Patients r HOSH-[facility] 02 l [facility] 2018-11-03 2018-11-04 [place] [id number] Memoria 16:30:00 05:59:59 r Cardiology 12 [facility] 2018-09-22 2018-10-22 OP Therapy nullFlavo SMR [id number] Memoria 15:51:00 05:59:00 Patients r HOSH-[facility]ai 01 l [facility] 2018-09-17 2018-09-17 AppointKLEBER Campa [facility] [id number] [facility] 09:30:00 09:30:00 t; Carlos Eduardo YAÑEZ [facility] [place] ANGLIN Allison Otero M.D. [facility] 2018-05-05 2018-05-06 Outpatient nullFlavo [facility] [id number] Memoria 16:15:00 04:59:59 r Cardiology 09 l [place] Larissa nn 2018-03-19 2018-03-21 Outside nullFlavo [facility] [id number] Memoria 18:39:00 04:59:59 Medical r Cardiology 06 l Records Allyson Hutton n 2018-02-24 2018-02-25 Outpatient nullFlavo [facility] [id number] Memoria 14:15:00 04:59:59 r Urology 11 l Rozina Noonanann 2018-01-16 2018-01-16 Ambulatory nullFlavo [facility] [id number] Memoria 19:15:00 19:15:00 Pre-Reg r Urology 10 l [facility] 2018-01-06 2018-01-08 Phone nullFlavo [facility] [id number] Memoria 16:57:00 04:59:59 Message r Urology 05 l [facility] 2018-01-01 2018-01-02 Inpatient nullFlavo [facility] [id number] Memoria 03:14:00 21:55:00 r Range 14 l [facility] 2018-01-01 2018-01-01 Emergency nullFlavo [facility] [id number] Memoria 03:12:00 03:12:00 r Range 02 l [facility] 2017-12-23 2017-12-23 Day nullFlavo [facility] [id number] Memoria 10:43:00 22:20:00 Surgery r Edmund 01 l [facility] 2017-11-28 2017-11-29 Outpatient nullFlavo [facility] [id number] Memoria 15:45:00 04:59:59 r Cardiology 08 l [facility] Brennen 2017-07-19 2017-07-21 Phone nullFlavo [facility] [id number] Memoria 22:08:00 05:59:59 Message r Cardiology 04 l [facility] Brennen 2017-06-20 2017-06-20 Outpatient [facility] [id number] Memoria 13:45:00 13:45:00 07 jacky Range 2017-06-06 2017-06-06 Outpatient IE IE [id number] Memoria 13:00:00 13:00:00 06 jacky Shaffer 2017-04-30 2017-04-30 KLEBER Masterson [facility] [id number] Univers 11:30:00 11:30:00 t; Carlos Eduardo YAÑEZ it y [facility] [place], [place] Ailyn YAÑEZ M.D. ans 2016-12-05 2016-12-05 [facility] [id number] Memoria 10:00:00 10:00:00 05 l Edmund 2016-08-20 2016-08-20 Outpatient SEBASTIAN NOLASCO [id number] Memoria 11:30:00 11:30:00 04 l Edmund 2016-08-20 2016-08-20 Outpatient SEBASTIAN SEBASTIAN [id number] Memoria 10:00:00 10:00:00 03 l Edmund 2016-08-13 2016-08-13 Outpatient SEBASTIAN SEBASTIAN [id number] Memoria 10:00:00 10:00:00 01 l Edmund 2016-07-05 2016-07-05 Outpatient SEBASTIAN SEBASTIAN [id number] Memoria 15:30:00 15:30:00 00 l Edmund Results Test Description Test Time Test Comments Results Result Comments Source Novel Coronavirus 2018 Inhouse 2021-05-30 05:54:00 Test Item Value Reference Range Interpretation Comme nts Novel Coronavirus 2018 Negative Negative Posit petra results are indicative of the Inhouse (test code = presenc e [id number] RNA, clinical COVNONPUI) correlation wit h patient historyand other diagnosti c information is necessary to de terminepatient infection status. Positiv e results do not rule outbacterial in fection or co-infection with other viru ses. Negative results do not preclude SA RS-CoV-2 infection andshould not b e used as the sole basis for patient man agementdecisions. Negative result s must be combined with otherclinical o bservations, patient history, and ep idemiologicalinformation. Detection of SA RS-CoV-2 RNA may be affected bysamp le collection methods, storage conditi ons, and/or stageof infection. Lisette l RNA mutations, vaccinations, a ntiviraltherapeutics, antibiotics, ch emotherapeutic orimmunosuppres yesenia drugs have not been evaluated for e ffectson detection. Results are for the identification of SARS-CoV-2 RNA usingthe [employer] System under th e FDA Emergency UseAuthorizatio n. The testing is performed by dwight billingsleyined in the procedures for the [employer] M2000 Flowify Limiteddiagno stic SARS-CoV-2 assay in vitro. PROTHROMBIN [id number] 10:33:00 Test Item Value Reference Range Interpretation Comments PROTHROMBIN TIME 15.5 SECONDS 9.3-12.9 H PATIENT (test code = PTP) INTERNATIONAL NORMAL 1.4 0.8-1.2 H TARGET RATIO (test code = INR BY IN DICATION INR) Indication INR1. Prophyl axis of venous thrombos is 2.0 - 3. 0 (orthopedic jose nita), Prophylaxis of venous thrombos is (other than hig h-risk surgery), Baylee tment of Deep Vein Thrombosis/Pulm onary Embolism, Preve ntion of systemic emb olism - Tissue heart va lves, Acute Myocardia l Infarction (to prevent systemic embo lism), Valvular heart disease, Atri al Fibrillation, Bileaflet mecha nical valve in aortic position.2. Mec hanical prosthetic valv es (high risk), 2.5 - 3.5 Presence of Lupus Anticoagu lant or Antiphospholi pid Antibodies, Pre vention of systemic e mbolism - Acute Myocard ial Infarction (t o prevent recurre nt infarct). BASIC METABOLIC [id number] 10:14:00 Test Item Value Reference Range Interpretation Comments SODIUM (test code = NA) 141 mEq/L 134-147 N POTASSIUM (test code = 4.4 mEq/L 3.4-5.0 N K) CHLORIDE (test code = 106 mEq/L 100-108 N CL) CARBON DIOXIDE (test 29 mEq/l 21-33 N code = CO2) ANION GAP (test code = 11 0-20 N GAP) GLUCOSE (test code = 125 mg/dL 70-110 H GLU) BLOOD UREA NITROGEN 12 mg/dL 7-18 N (test code = BUN) GLOMERULAR FILTRATION 58.1 70-80 L Units of measure = RATE (test code = GFR) ml/mi n/1.73 m2 CREATININE (test code = 1.2 mg/dL 0.6-1.3 N CREAT) CALCIUM (test code = 9.8 mg/dL 8.0-10.5 N CA) CBC W/AUTO [id number] 10:05:00 Test Item Value Reference Range Interpretation Comments WHITE BLOOD CELL (test code = 9.3 x10 3/uL 4.5-11.0 N WBC) RED BLOOD CELL (test code = 3.66 x10 6/uL 4.00-5.60 L RBC) HEMOGLOBIN (test code = HGB) 12.0 g/dL 12.5-16.9 L HEMATOCRIT (test code = HCT) 37.0 % 37.5-50.7 L MEAN CELL VOLUME (test code = 101.1 fL 81.0-99.0 H MCV) MEAN CELL HGB (test code = MCH) 32.8 pg 27.0-33.0 N MEAN CELL HGB CONCETRATION 32.4 g/dL 33.0-37.0 L (test code = MCHC) RED CELL DISTRIBUTION WIDTH CV 13.7 % 11.5-14.5 N (test code = RDW) PLATELET COUNT (test code = 265 x10 3/uL 150-400 N PLT) NEUTROPHIL % (test code = NT%) 68.5 % 56.0-77.0 N LYMPHOCYTE % (test code = LY%) 18.2 % 14.0-32.0 N NEUTROPHIL # (test code = NT#) 6.35 x10 3/uL 2.0-7.6 N LYMPHOCYTE # (test code = LY#) 1.69 x10 3/uL 1.0-3.8 N MANUAL DIFF REQUIRED (test code NO = MDIFF) RED CELL DISTRIBUTION WIDTH SD 50.7 fL 37.0-54.0 N (test code = RDW-SD) MEAN PLATELET VOLUME (test code 10.9 fL 7.0-9.0 H = MPV) IMMATURE GRANULOCYTE % (test 0.3 % 0.0-2.0 N code = IG%) MONOCYTE % (test code = MO%) 7.0 % 4.8-9.0 N EOSINOPHIL % (test code = EO%) 5.4 % 0.3-3.7 H BASOPHIL % (test code = BA%) 0.6 % 0.0-2.0 N NUCLEATED RBC % (test code = 0.0 % 0-0 N NRBC%) IMMATURE GRANULOCYTE # (test 0.03 x10 3/uL 0.00-0.03 N code = IG#) MONOCYTE # (test code = MO#) 0.65 x10 3/uL 0.1-0.8 N EOSINOPHIL # (test code = EO#) 0.50 x10 3/uL 0.0-0.2 H BASOPHIL # (test code = BA#) 0.06 x10 3/uL 0.0-0.2 N NUCLEATED RBC # (test code = 0.00 x10 3/uL 0.0-0.1 N NRBC#) [id number] 12:22:00 Test Item Value Reference Range Interpretation Comments GLUBED (test code = 128 MG/DL 70-110 H Performe d by certified GLUBED) 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 [facility] [id number] 11:44:00 Test Item Value Reference Range Interpretation Comments ACT-ISTAT (test code 257 SEC 74-137 H Perform ed by certified = ACTI) 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 [facility] [id number] 09:06:00 Test Item Value Reference Range Interpretation Comments GLUBED (test code = 124 MG/DL 70-110 H Performe d by certified GLUBED) 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 Positiv e results do not rule out bacterial infection or co -infection with other viru ses. Negative result s do not preclude SARS-C oV-2 infection andsh ould not be used as the ana e basis for patient managementdecis ions. Negative result s must be combined with otherclinical observations, p atient history, and epidemiological information . Detection of SARS-CoV-2 RNA may be affe cted bysample collec tion methods, storag e conditions, and /or stageof infection. Lisette l RNA mutations, vacc inations, antiviraltherap eutics, antibiotics, chemotherapeuti c orimmunosuppres yesenia drugs have not been e valuated for effectson d etection. Results are for the identification of SARS-CoV-2 RNA usingthe [employer] M2000 Sy stem under the FDA Emergen cy UseAuthorizatio n. The testing is perf ormed by personneltraine d in the procedures for the [employer] M2000 molecular diagnostic SARS-CoV-2 assa y in vitro. BASIC METABOLIC [id number] 11:10:00 Test Item Value Reference Range Interpretation Comments SODIUM (test code = NA) 141 mEq/L 134-147 N POTASSIUM (test code = 4.1 mEq/L 3.4-5.0 N K) CHLORIDE (test code = 104 mEq/L 100-108 N CL) CARBON DIOXIDE (test 29 mEq/l 21-33 N code = CO2) ANION GAP (test code = 12 0-20 N GAP) GLUCOSE (test code = 164 mg/dL 70-110 H GLU) BLOOD UREA NITROGEN 10 mg/dL 7-18 N (test code = BUN) GLOMERULAR FILTRATION 71.7 70-80 N Units of measure = RATE (test code = GFR) ml/mi n/1.73 m2 CREATININE (test code = 1.0 mg/dL 0.6-1.3 N CREAT) CALCIUM (test code = 9.3 mg/dL 8.0-10.5 N CA) [id number] 11:10:00 Test Item Value Reference Range Interpretation Comments PREALBUMIN (test code = PREALB) 24.7 mg/dL 16.0-40.0 N BASIC METABOLIC [id number] 11:09:00 Test Item Value Reference Range Interpretation Comments SODIUM (test code = NA) 141 mEq/L 134-147 N POTASSIUM (test code = 4.1 mEq/L 3.4-5.0 N K) CHLORIDE (test code = 104 mEq/L 100-108 N CL) CARBON DIOXIDE (test 29 mEq/l 21-33 N code = CO2) ANION GAP (test code = 12 0-20 N GAP) GLUCOSE (test code = 164 mg/dL 70-110 H GLU) BLOOD UREA NITROGEN 10 mg/dL 7-18 N (test code = BUN) GLOMERULAR FILTRATION 71.7 70-80 N Units of measure = RATE (test code = GFR) ml/mi n/1.73 m2 CREATININE (test code = 1.0 mg/dL 0.6-1.3 N CREAT) CALCIUM (test code = 9.3 mg/dL 8.0-10.5 N CA) [id number] 11:09:00 Test Item Value Reference Range Interpretation Comments PREALBUMIN (test code = PREALB) mg/dL 16.0-40.0 PROTHROMBIN [id number] 11:03:00 Test Item Value Reference Range Interpretation Comments PROTHROMBIN TIME 14.6 SECONDS 9.3-12.9 H PATIENT (test code = PTP) INTERNATIONAL NORMAL 1.3 0.8-1.2 H TARGET RATIO (test code = INR BY IN DICATION INR) Indication INR1. Prophyl axis of venous thrombos is 2.0 - 3. 0 (orthopedic jose nita), Prophylaxis of venous thrombos is (other than hig h-risk surgery), Baylee tment of Deep Vein Thrombosis/Pulm onary Embolism, Preve ntion of systemic emb olism - Tissue heart va lves, Acute Myocardia l Infarction (to prevent systemic embo lism), Valvular heart disease, Atri al Fibrillation, Bileaflet mecha nical valve in aortic position.2. Mec hanical prosthetic valv es (high risk), 2.5 - 3.5 Presence of Lupus Anticoagu lant or Antiphospholi pid Antibodies, Pre vention of systemic e mbolism - Acute Myocard ial Infarction (t o prevent recurre nt infarct). CBC W/AUTO [id number] 10:57:00 Test Item Value Reference Range Interpretation Comments WHITE BLOOD CELL (test code = 8.0 x10 3/uL 4.5-11.0 N WBC) RED BLOOD CELL (test code = 3.66 x10 6/uL 4.00-5.60 L RBC) HEMOGLOBIN (test code = HGB) 11.8 g/dL 12.5-16.9 L HEMATOCRIT (test code = HCT) 37.1 % 37.5-50.7 L MEAN CELL VOLUME (test code = 101.4 fL 81.0-99.0 H MCV) MEAN CELL HGB (test code = MCH) 32.2 pg 27.0-33.0 N MEAN CELL HGB CONCETRATION 31.8 g/dL 33.0-37.0 L (test code = MCHC) RED CELL DISTRIBUTION WIDTH CV 13.3 % 11.5-14.5 N (test code = RDW) RED CELL DISTRIBUTION WIDTH SD 49.9 fL 37.0-54.0 N (test code = RDW-SD) PLATELET COUNT (test code = 235 x10 3/uL 150-400 N PLT) MEAN PLATELET VOLUME (test code 11.1 fL 7.0-9.0 H = MPV) NEUTROPHIL % (test code = NT%) 69.4 % 56.0-77.0 N IMMATURE GRANULOCYTE % (test 0.5 % 0.0-2.0 N code = IG%) LYMPHOCYTE % (test code = LY%) 19.4 % 14.0-32.0 N MONOCYTE % (test code = MO%) 5.7 % 4.8-9.0 N EOSINOPHIL % (test code = EO%) 4.1 % 0.3-3.7 H BASOPHIL % (test code = BA%) 0.9 % 0.0-2.0 N NUCLEATED RBC % (test code = 0.0 % 0-0 N NRBC%) NEUTROPHIL # (test code = NT#) 5.56 x10 3/uL 2.0-7.6 N IMMATURE GRANULOCYTE # (test 0.04 x10 3/uL 0.00-0.03 H code = IG#) LYMPHOCYTE # (test code = LY#) 1.55 x10 3/uL 1.0-3.8 N MONOCYTE # (test code = MO#) 0.46 x10 3/uL 0.1-0.8 N EOSINOPHIL # (test code = EO#) 0.33 x10 3/uL 0.0-0.2 H BASOPHIL # (test code = BA#) 0.07 x10 3/uL 0.0-0.2 N NUCLEATED RBC # (test code = 0.00 x10 3/uL 0.0-0.1 N NRBC#) MANUAL DIFF REQUIRED (test code NO = MDIFF) CBC W/AUTO [id number] 10:48:00 Test Item Value Reference Range Interpretation Comments WHITE BLOOD CELL (test code = x10 3/uL 4.5-11.0 WBC) RED BLOOD CELL (test code = RBC) x10 6/uL 4.00-5.60 HEMOGLOBIN (test code = HGB) g/dL 12.5-16.9 HEMATOCRIT (test code = HCT) % 37.5-50.7 MEAN CELL VOLUME (test code = fL 81.0-99.0 MCV) MEAN CELL HGB (test code = MCH) pg 27.0-33.0 MEAN CELL HGB CONCETRATION (test g/dL 33.0-37.0 code = MCHC) RED CELL DISTRIBUTION WIDTH CV % 11.5-14.5 (test code = RDW) PLATELET COUNT (test code = PLT) 235 x10 3/uL 150-400 N NEUTROPHIL % (test code = NT%) % 56.0-77.0 LYMPHOCYTE % (test code = LY%) % 14.0-32.0 NEUTROPHIL # (test code = NT#) x10 3/uL 2.0-7.6 LYMPHOCYTE # (test code = LY#) x10 3/uL 1.0-3.8 MANUAL DIFF REQUIRED (test code = MDIFF) - XR CHEST 2 [id number] 00:00:00 [facility] 1940 Sex: M FAX: Sonny Kumar MD [phone] [facility]: St: PRE Name: SALVADOR BRUNNERMELANIA [place] : 1940 Age/S: 80/[place] [address] [place] [address] Unit #: [id number] Loc: [place] [address] Phys: Sonny Dalton MD Acct: [id number] Dis Date: [place] [facility] [place] #: [phone] Exam Date: 04/17/2021 1105 FAX #: [phone] Reason: PREOP EXAMS: CPT CODE: [id number] XR CHEST 2 V [id number] PROCEDURE INFORMATION: Exam: XR Chest Exam date and time: 04/17/2021 10:33 AM Age: 80 years old Clinical indication: Pre-operative exam; Respiratory screening exam; Additional info: Preop TECHNIQUE: I maging protocol: XR of the chest. Views: 2 views. PA and Lateral COMPARISON: No relevant prior studies available. FINDINGS: Lungs: No consolidation. Minimal left basilar atelectasis or scarring. Pleural spaces: No pleural effusion. Heart/Mediastinum: Heart appears borderline in size. There is atherosclerotic calcification of the aorta. Bones/joints: No gross acute findings. Prior sternotomy changes. IMPRESSION: No acute cardiopulmonary findings at 1130 Reported and signed by: Laura Caldwell D.O. CC: Sonny Dalton MD Technologist: RT Nat(Lexii) Trnscrd Date/Time/By: 04/17/2021 (1130) : By: [email or web address] Orig Print D/T: S: 04/17/2021 (1131) PAGE 1 Signed Report[U] XRAY SPINE LUMBOSACRAL MIN 4 VWS [id number] 2018-09-17 11:15:00Images acquired, not reported on this accession number. [facility][U] XRAY HIPS BILATERAL MIN 2 VWS AND AP PELVIS [id number] 07:43:00Images acquired, not reported on this accession number. [facility] PhysiciansTISSUE [id number] 17:28:00Surgical Pathology Report Case: [id number] Authorizing Provider: Byron Bolanos MD Collected: 05/13/2018 1448 Ordering Location: [facility] Received: 05/14/2018 0818 SERVICES Pathologist: Eze Guzman MD Specimens: A) -Mesh B) - Soft Tissue, Other, bladder with [...] FAST MICROORGANISMS Signing Pathologist Direct Phone Line: [phone] signed by Eze Guzman MD on 05/19/2018 at 5:28 PMPreliminary result electronically signed by Eze Guzman MD on 05/16/2018 at 11:49 AMSpecial stains for AFB and GMS were negative for acid fast and fungal microorganisms, respectively. [id number] bladder emptying A. Mesh; B. Bladder with [...] surface throughout. No discrete masses are identified. Stone Derrickman And Rigger sections are submitted in cassettes C1-C19. DB/plPerformedPOCT-GLUCOSE [id number] 07:37:00 Test Item Value Reference Range Interpretation Comments POC-GLUCOSE METER 184 mg/dL 70-110 H TESTED AT [facility] 4451 (BEAKER) (test code = RHIANNAMIKAYLA [place]CR[place] 7951) [address] BASIC METABOLIC [id number] 06:19:00 Test Item Value Reference Range Interpretation [...] 0-0 (BEAKER) (test code = 413) POCT-GLUCOSE [id number] 21:51:00 Test Item Value Reference Range Interpretation Comments POC-GLUCOSE METER 216 mg/dL 70-110 H TESTED AT [place] [address] ([facility]) (test code = TALA Shultz [facility] 1538) [address] POCT-GLUCOSE [id number] 19:28:00 Test Item Value Reference Range Interpretation Comments POC-GLUCOSE METER 186 mg/dL 70-110 H TESTED AT [place] [address] ([facility]) (test code = TALA Shultz [facility] 1538) [address] POCT-GLUCOSE [id number] 16:57:00 Test Item Value Reference Range Interpretation Comments POC-GLUCOSE METER 215 mg/dL 70-110 H TESTED AT [place] [address] ([facility]) (test code = TALA Shultz [facility] 1538) [address] POCT-GLUCOSE [id number] 12:43:00 Test Item Value Reference Range Interpretation Comments POC-GLUCOSE METER 223 mg/dL 70-110 H TESTED AT [place] [address] ([facility]) (test code = TALA Shultz [facility] 1538) [address] POCT-GLUCOSE [id number] 08:13:00 Test Item Value Reference Range Interpretation Comments POC-GLUCOSE METER 157 mg/dL 70-110 H TESTED AT [place] [address] ([facility]) (test code = [facility] Lexii [facility] 1538) [address] GENTAMICIN LEVEL, [id number] 05:51:00 Test Item Value Reference Range Interpretation Comments GENTAMICIN TROUGH (BEAKER) (test 1.9 ug/mL 0.5-1.0 H code = 398) Dosing Target Level (mcg/mL)1-1.5 mg/kg q 8-12 HR 0.5-1.03-7 mg/kg q 24 HR <0.5BASIC METABOLIC [id number] 05:47:00 Test Item Value Reference Range Interpretation [...] 0-0 (BEAKER) (test code = 413) POCT-GLUCOSE [id number] 21:47:00 Test Item Value Reference Range Interpretation Comments POC-GLUCOSE METER 220 mg/dL 70-110 H TESTED AT [facility] 6720 (BEAKER) (test code = TALA MCCRAY [place] 1538) [address] POCT-GLUCOSE [id number] 17:06:00 Test Item Value Reference Range Interpretation Comments POC-GLUCOSE METER 211 mg/dL 70-110 H TESTED AT [place] [address] (BEAKER) (test code = TALA Shultz [facility] 1538) [address] POCT-GLUCOSE [id number] 11:44:00 Test Item Value Reference Range Interpretation Comments POC-GLUCOSE METER 225 mg/dL 70-110 H TESTED AT [place] [address] (BEAKER) (test code = TALA Shultz [facility] 1538) [address] POCT-GLUCOSE [id number] 08:29:00 Test Item Value Reference Range Interpretation Comments POC-GLUCOSE METER 201 mg/dL 70-110 H TESTED AT [place] [address] (BEAKER) (test code = [facility] Lexii [facility] 1538) [address] BASIC METABOLIC [id number] 06:04:00 Test Item Value Reference Range Interpretation [...] 0-0 (BEAKER) (test code = 413) POCT-GLUCOSE [id number] 21:39:00 Test Item Value Reference Range Interpretation Comments POC-GLUCOSE METER 275 mg/dL 70-110 H TESTED AT [facility] 6720 ([facility] (test code = [facility] 1538) [address] BASIC METABOLIC [id number] 19:42:00 Test Item Value Reference Range Interpretation [...] 0-0 (BEAKER) (test code = 413) POCT-GLUCOSE [id number] 18:50:00 Test Item Value Reference Range Interpretation Comments POC-GLUCOSE METER 197 mg/dL 70-110 H TESTED AT [place] [address] ([facility]) (test code = TALA MCCRAY [place] 1538) [address] VANCOMYCIN LEVEL, [id number] 12:29:00 Test Item Value Reference Range Interpretation Comments VANCOMYCIN TROUGH ([facility]) (test 20.9 ug/mL 10.0-20.0 H code = 522) Please draw trough at 1330 (30 minutes prior to scheduled vancomycin dose at 1400).POCT-GLUCOSE [id number] 07:17:00 Test Item Value Reference Range Interpretation Comments POC-GLUCOSE METER 148 mg/dL 70-110 H TESTED AT [place] [address] ([facility]) (test code = TALA MCCRAY [place] 1538) [address] POCT-GLUCOSE [id number] 06:09:00 Test Item Value Reference Range Interpretation Comments POC-GLUCOSE METER 149 mg/dL 70-110 H TESTED AT [facility] 6720 (BEAKER) (test code = TALA Shultz [facility] 1538) [address] BASIC METABOLIC [id number] 06:04:00 Test Item Value Reference Range Interpretation [...] 0-0 (BEAKER) (test code = 413) POCT-GLUCOSE [id number] 21:17:00 Test Item Value Reference Range Interpretation Comments POC-GLUCOSE METER 164 mg/dL 70-110 H TESTED AT [place] [address] ([facility]) (test code = TALA [place]CR[place] 1538) [address] POCT-GLUCOSE [id number] 16:39:00 Test Item Value Reference Range Interpretation Comments POC-GLUCOSE METER 225 mg/dL 70-110 H TESTED AT [place] [address] ([facility]) (test code = TALA Shultz [facility] 1538) [address] POCT-GLUCOSE [id number] 12:09:00 Test Item Value Reference Range Interpretation Comments POC-GLUCOSE METER 186 mg/dL 70-110 H TESTED AT [place] [address] ([facility]) (test code = TALA Shultz [facility] 1538) [address] POCT-GLUCOSE [id number] 08:50:00 Test Item Value Reference Range Interpretation Comments POC-GLUCOSE METER 194 mg/dL 70-110 H TESTED AT [place] [address] ([facility]) (test code = TALA Shultz [facility] 1538) [address] BASIC METABOLIC [id number] 06:04:00 Test Item Value Reference Range Interpretation [...] 0-0 (BEAKER) (test code = 413) POCT-GLUCOSE [id number] 00:11:00 Test Item Value Reference Range Interpretation Comments POC-GLUCOSE METER 143 mg/dL 70-110 H TESTED AT [facility] 6720 ([facility]) (test code = TALA VINCENT 1538) [address] POCT-GLUCOSE [id number] 17:16:00 Test Item Value Reference Range Interpretation Comments POC-GLUCOSE METER 261 mg/dL 70-110 H TESTED AT [facility] 6720 ([facility] (test code = TALA Shultz [place] 1538) [address] POCT-GLUCOSE [id number] 10:04:00 Test Item Value Reference Range Interpretation Comments POC-GLUCOSE METER 153 mg/dL 70-110 H TESTED AT [facility] 6720 (BEAKER) (test code = TALA Shultz [facility] 1538) [address] BASIC METABOLIC [id number] 17:28:00 Test Item Value Reference Range Interpretation [...] S NOT APPLICABLE FOR DIALYSIS PATIEN TS. [id number] 17:26:00 Test Item Value Reference Range Interpretation Comments PARTIAL THROMBOPLASTIN TIME 28.7 seconds 22.5-36.0 (BEAKER) (test code = 760) PROTHROMBIN TIME/[id number] 17:25:00 Test Item Value Reference Range Interpretation [...] (test code = 2801) RAD, CHEST, 2 [id number] 16:06:00Reason for exam:->screening prior to anesthesiaFINAL REPORT [...] MDReport Verified Date/Time: 04/30/2018 16:06:13 Reading Location: [address] Radiology Reading Room CHEM [id number] 08:35:00 Test Item Value Reference Range Interpretation Comments Magnesium Lvl (test code = Magnesium 2.2 1.8-2.4 Lvl) [id number] 08:35:00 Test Item Value Reference Range Interpretation Comments AGAP (test code = AGAP) 12.7 10.0-20.0 [id number] 08:35:00 Test Item Value Reference Range Interpretation Comments CO2 (test code = CO2) 28 24-32 [id number] 08:35:00 Test Item Value Reference Range Interpretation Comments Calcium Lvl (test code = Calcium Lvl) 7.7 8.5-10.5 [id number] 08:35:00 Test Item Value Reference Range Interpretation Comments BUN (test code = BUN) 12 7-22 [id number] 08:35:00 Test Item Value Reference Range Interpretation Comments Sodium Lvl (test code = Sodium Lvl) 143 135-145 [id number] 08:35:00 Test Item Value Reference Range Interpretation Comments Chloride Lvl (test code = Chloride Lvl) 106 95-109 [id number] 08:35:00 Test Item Value Reference Range Interpretation Comments Potassium Lvl (test code = Potassium 3.7 3.5-5.1 Lvl) [id number] 08:35:00 Test Item Value Reference Range Interpretation Comments eGFR (test code = eGFR) 85 [id number] 08:35:00 Test Item Value Reference Range Interpretation Comments Glucose Lvl (test code = Glucose Lvl) 161 70-99 [id number] 08:35:00 Test Item Value Reference Range Interpretation Comments Creatinine Lvl (test code = Creatinine 0.81 0.50-1.40 Lvl) [id number] 08:35:00 Test Item Value Reference Range Interpretation Comments MPV (test code = MPV) 8.2 7.4-10.4 [facility] [id number] 08:35:00 Test Item Value Reference Range Interpretation Comments Platelet (test code = Platelet) 247 133-450 [facility] CenterMeyasuuTYUYLNXCFF1692-51-30 08:35:00 Test Item Value Reference Range Interpretation Comments RDW (test code = RDW) 14.0 11.5-14.5 [facility] CenterDfpmeurIPYRBQKEKC8552-97-52 08:35:00 Test Item Value Reference Range Interpretation Comments WBC (test code = WBC) 9.7 3.7-10.4 [facility] CenterOocsdweAXZVVMJHRP8874-32-75 08:35:00 Test Item Value Reference Range Interpretation Comments RBC (test code = RBC) 3.93 4.70-6.10 [facility] CenterChrisinHGVEAPINLB5493-48-00 08:35:00 Test Item Value Reference Range Interpretation Comments Hgb (test code = Hgb) 12.0 14.0-18.0 [facility] CenterIyoaiyoNUQTCNUJIV9555-70-88 08:35:00 Test Item Value Reference Range Interpretation Comments Hct (test code = Hct) 35.4 42.0-54.0 [facility] CenterCphwvtaQLVRZJJSFX9449-19-24 08:35:00 Test Item Value Reference Range Interpretation Comments MCV (test code = MCV) 90.1 80.0-94.0 [facility] CenterElczvlzIZKRPHHYME8015-89-44 08:35:00 Test Item Value Reference Range Interpretation Comments MCH (test code = MCH) 30.6 pg 27.0-31.0 [facility] CenterOhnoujvRXANWNJYAR0938-80-22 08:35:00 Test Item Value Reference Range Interpretation Comments MCHC (test code = MCHC) 34.0 32.0-36.0 [facility] CenterYwtptsuIIKOIOAFZA4720-44-23 08:35:00 Test Item Value Reference Range Interpretation Comments Basophils # (test code 0.1 See_Comment [Aut omated message] The = Basophils #) system which generated this result tra nsmitted reference range : <=0.2. The reference r danna was not used to int erpret this result as normal/abnormal . [facility] CenterShhswusIVYYNCQHAJ2741-73-23 08:35:00 Test Item Value Reference Range Interpretation Comments Segs (test code = Segs) 66.9 45.0-75.0 [facility]WsuanmkCOCUPQDBXF1170-09-89 08:35:00 Test Item Value Reference Range Interpretation Comments Eosinophils (test code = 4.7 See_Comment [A utomated message] The Eosinophils) system which ge nerated this result tra nsmitted reference range : <=4.0. The reference r danna was not used to int erpret this result as normal/abnormal . [facility] CenterIddxscaJLKAZWWEKW4575-19-70 08:35:00 Test Item Value Reference Range Interpretation Comments Basophils (test code = 1.1 See_Comment [Aut omated message] The Basophils) system which ge nerated this result tra nsmitted reference range : <=1.0. The reference r danna was not used to int erpret this result as normal/abnormal . [facility] CenterBjhqsotOUCDONYABR3664-13-53 08:35:00 Test Item Value Reference Range Interpretation Comments Lymphocytes (test code = Lymphocytes) 19.1 20.0-40.0 [facility] CenterHtiaquhKWJPDFSUEH0248-39-00 08:35:00 Test Item Value Reference Range Interpretation Comments Monocytes (test code = Monocytes) 8.2 2.0-12.0 [facility] CenterYnjvftoHNZMAZKKTL7015-68-83 08:35:00 Test Item Value Reference Range Interpretation Comments Segs-Bands # (test code = Segs-Bands #) 6.5 1.5-8.1 [facility] SurgeryGussadaDESCOBIUFS5601-76-76 08:35:00 Test Item Value Reference Range Interpretation Comments Eosinophils # (test code 0.5 See_Comment [A utomated message] The = Eosinophils #) system whic h generated this result tra nsmitted reference range : <=0.5. The reference r danna was not used to int erpret this result as normal/abnormal . [facility] CenterMtrfrfoUNEWNWKJYX5543-28-52 08:35:00 Test Item Value Reference Range Interpretation Comments Monocytes # (test code 0.8 See_Comment [Aut omated message] The = Monocytes #) system which generated this result tra nsmitted reference range : <=0.8. The reference r danna was not used to int erpret this result as normal/abnormal . [facility] CenterUqonbczDXLXYAPTVU5717-68-13 08:35:00 Test Item Value Reference Range Interpretation Comments Lymphocytes # (test code = Lymphocytes 1.9 1.0-5.5 #) [facility] CenterCARDIAC [id number] 05:05:00 Test Item Value Reference Range Interpretation Comments BNP (test code = BNP) [address] [facility] CenterCHEM [id number] 05:05:00 Test Item Value Reference Range Interpretation Comments Magnesium Lvl (test code = Magnesium 1.4 1.8-2.4 Lvl) [facility]QqgrneqGGURAAOTBUMW4268-36-82 05:05:00 Test Item Value Reference Range Interpretation Comments AGAP (test code = AGAP) 10.5 10.0-20.0 [facility]HeuiqcaQPSFYZDIITIC6420-16-03 05:05:00 Test Item Value Reference Range Interpretation Comments CO2 (test code = CO2) 33 24-32 [facility] HospitalBkjutfsDUSNIWOMKJEQ6880-02-71 05:05:00 Test Item Value Reference Range Interpretation Comments Calcium Lvl (test code = Calcium Lvl) 8.2 8.5-10.5 [facility] HospitalPbvgddsZAXAGOYZTQAI9632-71-21 05:05:00 Test Item Value Reference Range Interpretation Comments Potassium Lvl (test code = Potassium 3.5 3.5-5.1 Lvl) [facility] HospitalSawxmwcHCJTQBEMZRGX0159-11-36 05:05:00 Test Item Value Reference Range Interpretation Comments Sodium Lvl (test code = Sodium Lvl) 144 135-145 [facility]DcsajpfSIEFHYWPFRFU8276-99-31 05:05:00 Test Item Value Reference Range Interpretation Comments Chloride Lvl (test code = Chloride Lvl) 104 95-109 [facility]awMsbcxfaDXJFERTEOWWN5655-58-68 05:05:00 Test Item Value Reference Range Interpretation Comments BUN (test code = BUN) 18 7-22 [facility]awZymiqfpTGVPRHMZOAAI7898-66-55 05:05:00 Test Item Value Reference Range Interpretation Comments Glucose Lvl (test code = Glucose Lvl) 107 70-99 [facility]awYuphkpqOVUEAZJAWOBS2857-34-86 05:05:00 Test Item Value Reference Range Interpretation Comments eGFR (test code = eGFR) 80 [facility]awToidnfqCUAOXZMJXDXO4359-29-46 05:05:00 Test Item Value Reference Range Interpretation Comments Creatinine Lvl (test code = Creatinine 0.92 0.50-1.40 Lvl) [facility] CenterIfjtdewZNPQUWBIAY1446-96-37 05:05:00 Test Item Value Reference Range Interpretation Comments Segs-Bands # (test code = Segs-Bands #) 6.9 1.5-8.1 [facility] CenterPfexvxcTDNTNZEXQZ9573-38-02 05:05:00 Test Item Value Reference Range Interpretation Comments Lymphocytes # (test code = Lymphocytes 1.9 1.0-5.5 #) [facility] CenterJrlehtsZHISDIZHVP5953-29-82 05:05:00 Test Item Value Reference Range Interpretation Comments Monocytes # (test code 0.8 See_Comment [Aut omated message] The = Monocytes #) system which generated this result tra nsmitted reference range : <=0.8. The reference r danna was not used to int erpret this result as normal/abnormal . [facility] CenterJhkoqopJTHXRWEEBS3934-72-39 05:05:00 Test Item Value Reference Range Interpretation Comments Basophils # (test code 0.1 See_Comment [Aut omated message] The = Basophils #) system which generated this result tra nsmitted reference range : <=0.2. The reference r danna was not used to int erpret this result as normal/abnormal . [facility] CenterDrksuteDRAZESWNCG4278-04-15 05:05:00 Test Item Value Reference Range Interpretation Comments Eosinophils # (test code 0.6 See_Comment [A utomated message] The = Eosinophils #) system whic h generated this result tra nsmitted reference range : <=0.5. The reference r dnana was not used to int erpret this result as normal/abnormal . [facility] CenterEblnvoxUFVGZFELCC6288-94-63 05:05:00 Test Item Value Reference Range Interpretation Comments Segs (test code = Segs) 66.9 45.0-75.0 [facility] CenterEbelxtiPXLKICJSRD1957-98-57 05:05:00 Test Item Value Reference Range Interpretation Comments Basophils (test code = 0.9 See_Comment [Aut omated message] The Basophils) system which ge nerated this result tra nsmitted reference range : <=1.0. The reference r danna was not used to int erpret this result as normal/abnormal . [facility] CenterEogpdduVUKJJCYKUU9573-98-82 05:05:00 Test Item Value Reference Range Interpretation Comments Eosinophils (test code = 5.6 See_Comment [A utomated message] The Eosinophils) system which ge nerated this result tra nsmitted reference range : <=4.0. The reference r danna was not used to int erpret this result as normal/abnormal . [facility] CenterFiornuhWFPPXSROVM3712-25-42 05:05:00 Test Item Value Reference Range Interpretation Comments Monocytes (test code = Monocytes) 7.8 2.0-12.0 [facility] CenterFrfrtpwNZNRVRZXDG4654-04-35 05:05:00 Test Item Value Reference Range Interpretation Comments Lymphocytes (test code = Lymphocytes) 18.8 20.0-40.0 [facility] CenterNnkhshvCZLKILXGXH1413-74-18 05:05:00 Test Item Value Reference Range Interpretation Comments RDW (test code = RDW) 14.3 11.5-14.5 [facility] CenterJpwwwgiTFJYHOJLOZ2139-90-43 05:05:00 Test Item Value Reference Range Interpretation Comments Platelet (test code = Platelet) 271 133-450 [facility] CenterRacmzgkBKFABBFEOA7256-00-40 05:05:00 Test Item Value Reference Range Interpretation Comments MPV (test code = MPV) 8.2 7.4-10.4 [facility] CenterLlfbedyHVCUPRDZWX5349-82-90 05:05:00 Test Item Value Reference Range Interpretation Comments WBC (test code = WBC) 10.3 3.7-10.4 [facility] CenterAbkflhhHPXTZUKVXO0904-27-22 05:05:00 Test Item Value Reference Range Interpretation Comments MCHC (test code = MCHC) 33.9 32.0-36.0 [facility] CenterSgxbvywLTZUWCQCNI7767-62-47 05:05:00 Test Item Value Reference Range Interpretation Comments RBC (test code = RBC) 4.35 4.70-6.10 [facility] CenterZuekqbsGSQEEXCCGA1352-48-56 05:05:00 Test Item Value Reference Range Interpretation Comments Hgb (test code = Hgb) 13.3 14.0-18.0 [facility] CenterQgvhqtuPPPGIXKWTV5063-60-22 05:05:00 Test Item Value Reference Range Interpretation Comments Hct (test code = Hct) 39.3 42.0-54.0 [facility] CenterCtbkxhzPOFVJGWKAB1748-32-12 05:05:00 Test Item Value Reference Range Interpretation Comments MCV (test code = MCV) 90.5 80.0-94.0 [facility] CenterLqiiabvYESPZTDQVM1112-23-23 05:05:00 Test Item Value Reference Range Interpretation Comments MCH (test code = MCH) 30.6 pg 27.0-31.0 [facility] AND [id number] 04:41:00 Test Item Value Reference Range Interpretation Comments UA Ketones (test code = UA Ketones) Negative [facility] AND [id number] 04:41:00 Test Item Value Reference Range Interpretation Comments UA Glucose (test code = UA Glucose) 150 [facility] AND [id number] 04:41:00 Test Item Value Reference Range Interpretation Comments UA Sq Epi (test code = UA Sq Epi) None Seen [facility] AND [id number] 04:41:00 Test Item Value Reference Range Interpretation Comments UA Bacteria (test code = UA Few /HPF Bacteria) [facility] AND [id number] 04:41:00 Test Item Value Reference Range Interpretation Comments UA Mucus (test code = UA Mucus) Few /LPF [facility] AND [id number] 04:41:00 Test Item Value Reference Range Interpretation Comments UA RBC (test code = 85 See_Comment [Automa jey message] The UA RBC) system which ge nerated this result transmit jey reference range : <=2. The reference range was not used to interpr et this result as holley l/abnormal. [facility] AND [id number] 04:41:00 Test Item Value Reference Range Interpretation Comments UA Blood (test code = Moderate *ABN*(12/31/17 UA Blood) 11:41 PM) [facility] [id number] 04:41:00 Test Item Value Reference Range Interpretation Comments UA Urobilinogen (test code = UA 4.0 0.1-1.0 Urobilinogen) [facility] AND [id number] 04:41:00 Test Item Value Reference Range Interpretation Comments UA pH (test code = UA pH) 7.0 1 5.0-8.0 [facility] [id number] 04:41:00 Test Item Value Reference Range Interpretation Comments UA Leuk Est (test Moderate *ABN*(12/31/17 code = UA Leuk Est) 11:41 PM) [facility] AND [id number] 04:41:00 Test Item Value Reference Range Interpretation Comments UA WBC (test code = 72 See_Comment [Automa jey message] The UA WBC) system which ge nerated this result transmit jey reference range : <=5. The reference range was not used to interpr et this result as holley l/abnormal. [facility] AND [id number] 04:41:00 Test Item Value Reference Range Interpretation Comments UA Bili (test code = Negative *NA*(12/31/17 UA Bili) 11:41 PM) [facility] AND [id number] 04:41:00 Test Item Value Reference Range Interpretation Comments UA Nitrite (test code Negative (12/31/17 11:41 = UA Nitrite) PM) [facility] AND [id number] 04:41:00 Test Item Value Reference Range Interpretation Comments UA Turbidity (test code Slight *ABN*(12/31/17 = UA Turbidity) 11:41 PM) [facility] [id number] 04:41:00 Test Item Value Reference Range Interpretation Comments UA Spec Grav (test code = UA Spec 1.018 1 Grav) [facility] AND [id number] 04:41:00 Test Item Value Reference Range Interpretation Comments UA Color (test code = Dark Yellow UA Color) *NA*(12/31/17 11:41 PM) [facility] AND [id number] 04:41:00 Test Item Value Reference Range Interpretation Comments UA Protein (test code = UA >=300 mg/dL Protein) [facility]awAsthgsmEOZYFAWAJSHU7257-64-53 15:30:00 Test Item Value Reference Range Interpretation Comments Potassium Lvl (test code = Potassium 4.3 3.5-5.1 Lvl) [facility]awFnvckbxEHOULYWYBAGP2518-68-09 15:30:00 Test Item Value Reference Range Interpretation Comments Chloride Lvl (test code = Chloride Lvl) 109 95-109 [facility]awXybybabCUWLZVMFUMFV9586-78-37 15:30:00 Test Item Value Reference Range Interpretation Comments CO2 (test code = CO2) 28 24-32 [facility]awZuookveFTLBAJZGVXRH6924-06-83 15:30:00 Test Item Value Reference Range Interpretation Comments Calcium Lvl (test code = Calcium Lvl) 9.8 8.5-10.5 [facility]awCswshswHCAKNAGGPLCZ6328-03-78 15:30:00 Test Item Value Reference Range Interpretation Comments Sodium Lvl (test code = Sodium Lvl) 145 135-145 [facility]awGmmcjgfSMWUNEQCNFNZ6749-22-78 15:30:00 Test Item Value Reference Range Interpretation Comments Glucose Lvl (test code = Glucose Lvl) 144 70-99 [facility]awResjbklAEXHHIAMGOAJ2298-93-61 15:30:00 Test Item Value Reference Range Interpretation Comments BUN (test code = BUN) 17 7-22 [facility]aginawSyntaicNAQZVNBEXMYO9070-86-04 15:30:00 Test Item Value Reference Range Interpretation Comments eGFR (test code = eGFR) 63 [facility]awXfxdurvWAKCBWQYRHBZ0343-00-85 15:30:00 Test Item Value Reference Range Interpretation Comments Creatinine Lvl (test code = Creatinine 1.12 0.50-1.40 Lvl) [facility]awWpyfmtjNQRKVNUYNXWZ1633-57-00 15:30:00 Test Item Value Reference Range Interpretation Comments AGAP (test code = AGAP) 12.3 10.0-20.0 [facility] CenterLujrvibXZHAWCWSAU9567-03-74 15:30:00 Test Item Value Reference Range Interpretation Comments Hct (test code = Hct) 43.7 42.0-54.0 [facility] CenterIlqunfdPOUCJTYLOH0029-17-69 15:30:00 Test Item Value Reference Range Interpretation Comments Hgb (test code = Hgb) 14.7 14.0-18.[address] [facility]
[2021-08-28 11:02] LABS: Absolute Lymphocytes (CBC) 1.1 K/uL (0.7-4.9); Hematocrit 34.1 % (39.6-49.0); MPV 8.9 fL (7.6-11.3); RBC Red Blood Cell Count 3.57 M/uL (4.33-5.43)
[2021-08-28 11:04] LABS: Protime INR 1.24
[2021-08-28 11:20] LABS: Albumin 3.4 g/dL (3.4-5.0); Bilirubin Direct 0.4 mg/dL (0-0.2); Bilirubin Total 1.6 mg/dL (0.2-1.0); Magnesium 1.9 mg/dL (1.8-2.4); Potassium 3.3 mmol/L (3.5-5.1); Troponin (Emerg Dept Use Only) 0.03 ng/mL (0.0-0.045)
--- NOTE | 2021-08-28 11:53 | RAD REPORT ---
EXAM DESCRIPTION: RAD - Chest Single View - 08/28/2021 11:46 am CLINICAL HISTORY: weakness COMPARISON: Chest Single View dated 06/20/2021; Chest Single View dated 06/19/2021; Chest Single Vie w dated 06/16/2021; Chest Single View dated 03/07/2021 FINDINGS: Lines: None. Lungs: No evidence of edema or pneumonia. Edema improved compared with 06/20/2021. Pleural: No significant pleural effusions or pneumothorax. Cardiac: Cardiomegaly. Bones: No acute fractures. Other: IMPRESSION: No acute cardiopulmonary disease.
--- NOTE | 2021-08-28 12:01 | RAD REPORT ---
EXAM DESCRIPTION: CT - Head Brain Wo Cont - 08/28/2021 11:52 am CLINICAL HISTORY: WEAKNESS COMPARISON: Head Brain Wo Cont dated 06/16/2021; Head Brain Wo Cont dated 03/07/2021; Brain W/Wo Cont dated 06/16/2021 TECHNIQUE: All CT scans are performed using dose optimization technique as appropriate and may inclu de automated exposure control or mA/KV adjustment according to patient size. FINDINGS: No intracranial hemorrhage, hydrocephalus or extra-axial fluid collection.Remote left mary etal/ posterior frontal and cerebellar infarcts. Chronic small vessel ischemic changes which are adva nced. Remote basal ganglia lacunar infarcts. Bilateral mastoid fluid. The calvarium is intact. Intracranial atherosclerosis. IMPRESSION: No acute intracranial abnormality.
[2021-08-28] MEDS ORDERED: POTASSIUM 25 MEQ EFFERV TAB ONE (12:19)
[2021-08-28 12:36] LABS: Urine Blood 2+ (Negative); Urine Glucose Trace (Negative); Urine Protein 1+ (Negative)
[2021-08-28 12:46] LABS: SARS-COV-2 RT PCR NEGATIVE (NEGATIVE)
[2021-08-28 12:56] LABS: Urine Bacteria LOADED /HPF (NONE SEEN); Urine Mucus 1+ /HPF (NONE SEEN)
[2021-08-28] MEDS ORDERED: NA CHLORIDE 0.9% 50 ML ONE (13:25)
[2021-08-28] MEDS ORDERED: CEFTRIAXONE 1000 MG/VIAL ONE (13:25)
--- NOTE | 2021-08-28 13:26 | ER ---
Nurse's Notes [facility] Name: Abisai Salinas Age: 81 yrs Sex: Male : 1940 Arrival Date: 08/28/2021 Time: 10:05 Bed 18 Private MD: Diagnosis: Altered mental status, unspecified;Weakness;UTI/ Urinary tract infection, site not specified Presentation: 08/28 09:55 Chief complaint: Patient states: Pt BBEMS from home, with reports of weakness for 2-3 eo2 days and sliding off the bed this morning. 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 Coronavirus screen: Vaccine status: Patient reports receiving the 2nd dose of the covid vaccine. Ebola Screen: No symptoms or risks identified at this time. Initial Sepsis Screen: Does the patient meet any 2 criteria? Altered Mental Status. Does the patient have a suspected source of infection? No. Patient's initial sepsis screen is negative. Risk Assessment: Do you want to hurt yourself or someone else? Patient reports no desire to harm self or others. Note See triage note, per EMS, pt hypotensive on scene, given 200cc of NS enroute. Pt presently aaox3, states pt can at baseline ambulate with walker but has been increasingly weak for the past two days . Per , pt is also "more incoherent". Onset of symptoms was August 26, 2021. 09:55 Method Of Arrival: EMS: [facility] eo2 09:55 Acuity: BIB 2 eo2 Triage Assessment: 10:13 General: Appears in no apparent distress. Behavior is calm, cooperative. Pain: Denies eo2 pain. Historical: - Allergies: 10:13 No Known Allergies; eo2 - PMHx: 10:13 Atrial Fib; CVA; Dementia; Diabetes - IDDM; Hypertension; Left hand numbness-Deficit eo2 from previous CVA; Left-sided weakness from previous CVA; - Immunization history:: Adult Immunizations up to date, Client reports receiving the 2nd dose of the Covid vaccine. - Social history:: Smoking status: unknown. Screenin:00 Abuse screen: Denies threats or abuse. Nutritional screening: No deficits noted. eo2 Tuberculosis screening: No symptoms or risk factors identified. Fall Risk Fall in past 12 months (25 points). Secondary diagnosis (15 points) Alzheimer's, CVA, IV access (20 points). Ambulatory Aid- Crutches/Cane/Walker (15 pts). Gait- Weak (10 pts.). Mental Status- Oriented to own ability (0 pts). Assessment: 11:00 General: Appears in no apparent distress. comfortable, Behavior is calm, cooperative. eo2 Pain: Denies pain. Neuro: Level of Consciousness is awake, alert, obeys commands, pt able to state name and , aware of day of week. Pt's reports pt was "incoherent" this morning. Oriented to Moves all extremities. Weakness. Cardiovascular: Denies chest pain, Rhythm is atrial fibrillation. Respiratory: Respiratory effort is even, unlabored, heavy breathing Breath sounds are clear bilaterally. GI: Patient currently denies nausea, vomiting. Musculoskeletal: Circulation, motion, and sensation intact. Reports weakness in generalized weakness, per at baseline, pt is able to ambulate with walker but has been increasingly weak over the past two days. Pt reported to have slid off the bed this morning, no head injury. 11:00 Neuro: Speech is slurred, slurred speech at baseline. eo2 11:19 Reassessment: Lab at bedside for blood cultures. eo2 12:29 Reassessment: charge out clerk attempting to obtain blood cultures at this time, will medicate eo2 after. 13:14 Reassessment: Patient and/or family updated on plan of care and expected duration. Pain ap3 level reassessed. Patient is alert, oriented x 3, equal unlabored respirations, skin warm/dry/pink. 15:33 General: nurse attempted report to [facility]. spoke with Nadia, and she stated she will ap3 have the nurse return my phone call. 15:35 General: 's phone number [phone]. ap3 15:47 General: report called to MICHI Fink. ap3 Vital Signs: 09:55 BP 139 / 81; Pulse 67; Resp 17; Temp 98.1; Pulse Ox 99% ; Pain 0/10; eo2 10:30 BP 164 / 81; Pulse 69; Resp 22; Pulse Ox 99% ; Pain 0/10; eo2 11:00 BP 144 / 65; Pulse 67; Resp 21; Pulse Ox 99% ; eo2 12:00 BP 147 / 77; Pulse 74; Resp 20; Pulse Ox 97% ; Pain 0/10; eo2 13:14 BP 148 / 77; Pulse 71; Resp 19; Pulse Ox 100% ; ap3 15:34 BP 164 / 77; Pulse 72; Pulse Ox 99% on R/A; ap3 Vitals: 11:00 Cardiac Rhythm Assessment Atrial fibrillation. eo2 Susan Coma Score: 11:00 Eye Response: spontaneous(4). Verbal Response: oriented(5). Motor Response: obeys eo2 commands(6). Total: 15. 11:00 mild confusion eo2 ED Course: 09:55 Arm band placed on right wrist. eo2 10:05 Patient arrived in ED. eo2 10:05 Toribio Womack PA is PHCP. cp 10:05 Toribio Blakely MD is Attending Physician. cp 10:13 Triage completed. eo2 10:16 Mima Brown, RN is Primary Nurse. eo2 10:30 EKG completed in triage. Results shown to MD. eo2 10:33 EKG done, by ED staff, reviewed by Toribio JOSEPH. mb4 10:56 Lactate Sent. eo2 10:56 Procalcitonin Sent. eo2 10:56 Basic Metabolic Panel Sent. eo2 10:56 CBC with Diff Sent. eo2 10:56 LFT's Sent. eo2 10:56 Magnesium Sent. eo2 10:56 NT PRO-BNP Sent. eo2 10:56 PT-INR Sent. eo2 10:56 Troponin (emerg Dept Use Only) Sent. eo2 11:00 Patient has correct armband on for positive identification. Bed in low position. Call eo2 light in reach. Side rails up X2. Adult w/ patient. Door closed. Noise minimized. Warm blanket given. 11:00 Inserted saline lock: 20 gauge in left antecubital area, using aseptic technique. eo2 ,using aseptic technique. placed CHIEF LEGAL OFFICER by EMS. 11:46 XRAY Chest (1 view) In Process Unspecified. EDMS 11:53 CT Head Brain wo Cont In Process Unspecified. EDMS 12:38 Inserted saline lock: 22 gauge in left hand, using aseptic technique. Blood collected. jl7 13:25 Montez Robles DO is Hospitalizing Provider. cp 16:19 No provider procedures requiring assistance completed. Patient admitted, IV remains in jl7 place. intact, No redness/swelling at site. Administered Medications: 13:03 Drug: Potassium Effervescent Tablet 50 mEq Route: PO; 7 13:47 Follow up: Response: No adverse reaction ap3 13:29 Drug: Rocephin - (cefTRIAXone) 1 grams Route: IVPB; Infused Over: 30 mins; Site: left ap3 hand; 15:35 Follow up: IV Status: Completed infusion; IV Intake: 50ml ap3 15:36 Follow up: Response: No adverse reaction ap3 15:36 Follow up: IV Status: Completed infusion ap3 Intake: 15:35 IV: 50ml; Total: 50ml. ap3 Outcome: 13:25 Decision to Hospitalize by Provider. cp 16:19 Admitted to Tele accompanied by tech, via stretcher, room 207, with chart. [facility] 16:19 Condition: stable 16:19 Discharge instructions given to patient, family, Instructed on the need for admit, Demonstrated understanding of instructions. 16:20 Patient left the ED. [facility] Signatures: Dispatcher [employer] EDMS Toribio Womack PA PA cp Aaron Hills, RN RN jl7 Judie Maldonado RN RN ap3 Emilia Deshpande mb4 Mima Brown, MICHI RN eo2 Corrections: (The following items were deleted from the chart) 10:16 09:55 BP 139 / 81; Pulse 67bpm; Resp 17bpm; Pulse Ox 99%; Pain 0/10; eo2 eo2 12:02 10:55 Influenza Screen (A \\T\\ B)+BA.LAB.BRZ drawn and sent. eo2 EDMS 12:02 10:55 CORONAVIRUS+MR.LAB.BETTY drawn and sent. eo2 EDMS
--- NOTE | 2021-08-28 13:26 | EDPHYS ---
Physician Documentation [facility] Name: Abisai Salinas Age: 81 yrs Sex: Male : 1940 Arrival Date: 08/28/2021 Time: 10:05 Bed 18 Private MD: ED Physician Toribio Blakely HPI: 08/28 10:15 This 81 yrs old Male presents to ER via EMS with complaints of General Weakness. cp 10:15 The patient's problem is reported as weakness, that is generalized. cp 10:15 Onset: The symptoms/episode began/occurred over past 2-3 days, became worse this cp morning when patient "slid" out of bed and was unable to get up from floor. Associated signs and symptoms: Pertinent positives: decreased appetite, Pertinent negatives: abdominal pain, chest pain, fever. Historical: - Allergies: 10:13 No Known Allergies; eo2 - PMHx: 10:13 Atrial Fib; CVA; Dementia; Diabetes - IDDM; Hypertension; Left hand numbness-Deficit eo2 from previous CVA; Left-sided weakness from previous CVA; - Immunization history:: Adult Immunizations up to date, Client reports receiving the 2nd dose of the Covid vaccine. - Social history:: Smoking status: unknown. ROS: 10:20 Constitutional: Positive for poor PO intake, Negative for fever. cp 10:20 Eyes: Negative for injury, pain, redness, and discharge. cp 10:20 ENT: Negative for ear pain, sore throat, difficulty swallowing, difficulty handling secretions. 10:20 Cardiovascular: Negative for chest pain. 10:20 Respiratory: Negative for cough, wheezing. 10:20 Abdomen/GI: Negative for abdominal pain, vomiting, diarrhea, constipation. 10:20 Back: Negative for pain at rest, pain with movement. 10:20 Neuro: Positive for weakness, Negative for headache. 10:20 All other systems are negative. Exam: 10:25 Constitutional: The patient appears in no acute distress, alert, awake, cp non-diaphoretic, non-toxic, well developed, well nourished. 10:25 Head/Face: Normocephalic, atraumatic. cp 10:25 Eyes: Periorbital structures: appear normal, Pupils: equal, round, and reactive to light and accomodation, Extraocular movements: intact throughout, Conjunctiva: normal, no exudate, no injection, Sclera: no appreciated abnormality, Lids and lashes: appear normal, bilaterally. 10:25 ENT: External ear(s): are unremarkable, Nose: is normal, Mouth: Lips: moist, Oral mucosa: moist, Posterior pharynx: Airway: no evidence of obstruction, patent. 10:25 Chest/axilla: Inspection: normal, Palpation: is normal, no crepitus, no tenderness. 10:25 Cardiovascular: Rate: normal, Rhythm: irregular. 10:25 Respiratory: the patient does not display signs of respiratory distress, Respirations: normal, no use of accessory muscles, labored breathing, is not present, Breath sounds: are clear throughout, no decreased breath sounds. 10:25 Abdomen/GI: Inspection: abdomen appears normal, Palpation: abdomen is soft and non-tender, in all quadrants. 10:25 Neuro: Orientation: to person, place \\T\\ time. Mentation: able to follow commands, slow to respond, Motor: moves all fours, general weakness with no focal deficits. 10:30 ECG was reviewed by the Attending Physician. 12:05 Radiologist reports: no acute findings Vital Signs: 09:55 BP 139 / 81; Pulse 67; Resp 17; Temp 98.1; Pulse Ox 99% ; Pain 0/10; eo2 10:30 BP 164 / 81; Pulse 69; Resp 22; Pulse Ox 99% ; Pain 0/10; eo2 11:00 BP 144 / 65; Pulse 67; Resp 21; Pulse Ox 99% ; eo2 12:00 BP 147 / 77; Pulse 74; Resp 20; Pulse Ox 97% ; Pain 0/10; eo2 13:14 BP 148 / 77; Pulse 71; Resp 19; Pulse Ox 100% ; ap3 15:34 BP 164 / 77; Pulse 72; Pulse Ox 99% on R/A; ap3 Susan Coma Score: 11:00 Eye Response: spontaneous(4). Verbal Response: oriented(5). Motor Response: obeys eo2 commands(6). Total: 15. 11:00 mild confusion eo2 MDM: 10:08 Patient medically screened. 08/28 10:08 Order name: Basic Metabolic Panel; Complete Time: 11:44 08/28 11:44 Interpretation: Normal except: K 3.3; GLUC 210; GFR 53. 08/28 10:08 Order name: CBC with Diff; Complete Time: 11:17 08/28 11:17 Interpretation: Normal except: RBC 3.57; HGB 11.3; HCT 34.1; ADELE% 73.8. 08/28 10:08 Order name: LFT's; Complete Time: 11:44 08/28 11:45 Interpretation: Normal except: AST 6; ALT 10; BILIT 1.6; BILID 0.4; GLOB 3.6; A/G 0.9. 08/28 10:08 Order name: Magnesium; Complete Time: 11:44 08/28 10:08 Order name: NT PRO-BNP; Complete Time: 11:44 08/28 11:45 Interpretation: Abnormal: NT PRO-BNP 29962. 08/28 10:08 Order name: PT-INR; Complete Time: 11:17 08/28 11:45 Interpretation: Reviewed. 08/28 10:08 Order name: Troponin (emerg Dept Use Only); Complete Time: 11:44 08/28 11:45 Interpretation: Reviewed. 08/28 10:08 Order name: Procalcitonin; Complete Time: 11:44 08/28 11:45 Interpretation: Abnormal: Procalcitonin 0.20. 08/28 10:08 Order name: Lactate; Complete Time: 11:44 08/28 11:45 Interpretation: Reviewed. 08/28 10:08 Order name: Urine Microscopic Only; Complete Time: 13:09 08/28 13:09 Interpretation: Normal except: UWBC 20-50; URBC 10-20; UBACT LOADED. 08/28 10:08 Order name: Blood Culture Adult (2) 08/28 12:02 Order name: COVID-19/FLU A+B; Complete Time: 13:09 EDMS 08/28 10:08 Order name: XRAY Chest (1 view); Complete Time: 12:04 08/28 12:04 Interpretation: Report review. 08/28 10:08 Order name: EKG; Complete Time: 10:09 08/28 10:08 Order name: Cardiac monitoring; Complete Time: 10:56 08/28 10:08 Order name: EKG - Nurse/Tech; Complete Time: 10:56 08/28 10:08 Order name: IV Saline Lock; Complete Time: 11:51 cp 08/28 10:08 Order name: Labs collected and sent; Complete Time: 10:56 cp 08/28 10:08 Order name: O2 Per Protocol; Complete Time: 10:56 cp 08/28 10:08 Order name: O2 Sat Monitoring; Complete Time: 10:56 cp 08/28 10:08 Order name: Cath; Complete Time: 13:31 08/28 10:08 Order name: Urine Dipstick-Ancillary (obtain specimen); Complete Time: 12:38 cp 08/28 10:59 Order name: CT Head Brain wo Cont; Complete Time: 12:04 cp 08/28 12:04 Interpretation: Report reviewed. 08/28 12:36 Order name: Urine Dipstick-Ancillary; Complete Time: 13:09 EDMS 08/28 12:57 Order name: Urine Culture EDMS 08/28 14:03 Order name: Social Service Consult EDMS EC:30 Rate is 60 beats/min. Rhythm is irregular. QRS interval is prolonged at 110 msec. QT cp interval is normal. T waves are Inverted in lead III. Interpreted by me. Reviewed by me. Administered Medications: 13:03 Drug: Potassium Effervescent Tablet 50 mEq Route: PO; jl7 13:47 Follow up: Response: No adverse reaction ap3 13:29 Drug: Rocephin - (cefTRIAXone) 1 grams Route: IVPB; Infused Over: 30 mins; Site: left ap3 hand; 15:35 Follow up: IV Status: Completed infusion; IV Intake: 50ml ap3 15:36 Follow up: Response: No adverse reaction ap3 15:36 Follow up: IV Status: Completed infusion ap3 Disposition Summary: 08/28/21 13:25 Hospitalization Ordered Hospitalization Status: Inpatient Admission cp Provider: Montez Robles cp Location: Telemetry/MedSurg (Inpatient) cp Condition: Stable cp Problem: new cp Symptoms: are unchanged cp Bed/Room Type: Standard cp Room Assignment: (08/28/21 15:11) dw Diagnosis - Altered mental status, unspecified cp - Weakness cp - UTI/ Urinary tract infection, site not specified cp Forms: - Medication Reconciliation Form cp - SBAR form cp Addendum: 08/29/2021 18:48 Co-signature as Attending Physician, Toribio Blakely MD I agree with the assessment and c adrling plan of care. Signatures: Dispatcher [employer] EDMS Raina Garcia, RN RN Toribio Ryan MD MD cha Page, Corey, PA PA cp Leal, Jahala, RN RN jl7 Judie Maldonado RN RN ap3 Mima Brown RN RN eo2 Corrections: (The following items were deleted from the chart) 08/28 12: 10:09 CORONAVIRUS+MR.LAB.BRZ ordered. EDMS EDMS 12: 10:09 Influenza Screen (A \\T\\ B)+BA.LAB.BRZ ordered. EDMS EDMS 15:11 13:25 cp gigi
--- NOTE | 2021-08-28 14:03 | P.HP ---
Certification for Inpatient Patient admitted to: Observation With expected LOS: <2 Midnights Patient will require the following post-hospital care: Home Health Services Practitioner: I am a practitioner with admitting privileges, knowledge of patient current condition, hospital course, and medical plan of care. Services: Services provided to patient in accordance with Admission requirements found in Title 42 Section 412.3 of the Code of Federal Regulations Patient History Date of Service: 08/28/21 Primary Care Provider: Out of town Reason for admission: Fatigue History of Present Illness: 81-year-old male with history of CVA, atrial fibrillation not on chronic anticoagulation therapy, hypertension, diabetes, and dementia. reports patient with increased fatigue and weakness. He apparently slipped out of bed. He felt worse today. Symptoms have been present for over 3 days. Patient is eating appropriately. No significant fever, cough. Due to the increasing weakness the brought the patient in for further evaluation. In the ER patient was evaluated. CT head unremarkable. Chest x-ray unrem arkable. White count 6.6. Hemoglobin 11.3. Sodium 140, potassium 3.3. BUN of 16, creatinine 1.3 with a GFR 53. Glucose 212. Procalcitonin 0.2. Urinalysis shows evidence of UTI. Patient will be started on antibiotic therapy. Patient admitted for treatment. Allergies No Known Allergies Allergy (Verified 03/15/21 14:40) Home medications list reviewed: Yes Home Medications: Metformin HCl 500 mg PO BID 05/26/20 Brimonidine Tartrate/Timolol [Combigan 0.2%-0.5% Eye Drops] 1 gtt EACH EYE BID 07/07/20 Travoprost [Travatan Z*] 1 gtt EACH EYE DAILY 07/07/20 Folic Acid 1 mg PO DAILY #30 tablet 07/14/20 Magnesium Oxide [Mag 0X*] 400 mg PO DAILY #30 tab 07/14/20 Memantine HCl [Namenda*] 10 mg PO BID tablet 07/14/20 Potassium Oral Tab [Klor-Con 10 mEq Tab*] 10 meq PO BID #60 tab 08/23/20 Ascorbate Calcium [Vitamin C] 2 tab PO DAILY 03/07/21 Docusate [Colace Cap*] 100 mg PO DAILYPRN PRN 03/07/21 Donepezil [Aricept*] 1 tab PO BID 03/07/21 Famotidine [Pepcid] 1 tab PO DAILYPRN PRN 03/07/21 Polyethylene Glycol 3350 [Miralax] 17 gm PO DAILYPRN PRN 03/07/21 Quetiapine [Seroquel*] 1 tab PO BIDP PRN 03/07/21 Zinc 1 tab PO DAILY 03/07/21 carvediloL [Carvedilol] 1 tab PO BID 03/07/21 Dorzolamide HCl/Pf [Dorzolamide 2% Eye Drop] 1 drop OP BID 03/14/21 Atorvastatin Calcium [Lipitor] 80 mg PO BEDTIME tab 03/28/21 Bisacodyl [Dulcolax*] 10 mg PA DAILY PRN supp 03/28/21 Cholecalciferol (Vitamin D3) [Vitamin D 1000 Iu Tab*] 1,000 unit PO DAILY tab 03/28/21 Combigan 1 drop OPTH BID 03/28/21 Clopidogrel Bisulfate [Clopidogrel] 75 mg PO DAILY 06/16/21 Codeine/APAP [Tylenol #3*] 300 mg PO BID 06/16/21 Glipizide [Glipizide ER] 10 mg PO BID 06/16/21 Amox/Clavulanate [Augmentin 500-125 mg Tab*] 500 mg PO BID #14 tab 06/27/21 Clopidogrel Bisulfate [Plavix*] 75 mg PO DAILY #30 tablet 06/27/21 Glucerna Shake [Glucerna*] 237 ml PO BID PRN #60 can 06/27/21 Losartan Potassium [Cozaar*] 50 mg PO BID #60 tablet 06/27/21 Memantine HCl [Namenda*] 10 mg PO BID #60 tablet 06/27/21 Quetiapine [Seroquel*] 25 mg PO BEDTIME #30 tab 06/27/21 Thiamine HCl [Vitamin B-1*] 100 mg PO DAILY #30 tablet 06/27/21 - Past Medical/Surgical History Diabetic: Yes -: Diabetes mellitus type 2 -: Hypertension -: BPH -: Athersclerosis -: Melanoma -: Hyperlipidemia -: Atrial fibrillation not on chronic anticoagulation therapy -: History of CVA -: Dementia -: Chronic renal disease stage III -: Prostate Surgery -: Hernia Repair -: Open Heart Sx -: Carotid Artery Stent -: 7x stents -: 2x melanoma removal on head Psychosocial/ Personal History: Patient lives at home with his and granddaughter - Family History Family History: Reviewed- Non-Contributory - Social History Smoking Status: Never smoker Alcohol use: No CD- Drugs: No Caffeine use: No Place of Residence: Home Review of Systems General: Weakness, Malaise, As per HPI Eyes: Unremarkable ENT: Unremarkable Respiratory: Unremarkable Cardiovascular: Unremarkable Gastrointestinal: Unremarkable Genitourinary: Unremarkable Musculoskeletal: Unremarkable Integumentary: Unremarkable Neurological: Weakness, As per HPI Lymphatics: Unremarkable Physical Examination - Studies Laboratory Data (last 24 hrs) 08/28/21 10:48: PT 14.3 H, INR 1.24 08/28/21 10:48: WBC 6.60, Hgb 11.3 L, Hct 34.1 L, Plt Count 222 08/28/21 10:48: Sodium 140, Potassium 3.3 L, BUN 16, Creatinine 1.30, Glucose 210 H, Magnesium 1.9, Total Bilirubin 1.6 H, AST 6 L, ALT 10 L, Alkaline Phosphatase 98 Assessment and Plan - Plan COVID: negative CXR: COMPARISON: Chest Single View dated 06/20/2021; Chest Single View dated 06/19/2021; Chest Single View dated 06/16/2021; Chest Single View dated 03/07/2021 FINDINGS: Lines: None. Lungs: No evidence of edema or pneumonia. Edema improved compared with 06/20/2021. Pleural: No significant pleural effusions or pneumothorax. Cardiac: Cardiomegaly. Bones: No acute fractures. IMPRESSION: No acute cardiopulmonary disease. CT scan: COMPARISON: Head Brain Wo Cont dated 06/16/2021; Head Brain Wo Cont dated 03/07/2021; Brain W/Wo Cont dated 06/16/2021 TECHNIQUE: All CT scans are performed using dose optimization technique as bisi ropriate and may include automated exposure control or mA/KV adjustment according to patient size. FINDINGS: No intracranial hemorrhage, hydrocephalus or extra-axial fluid collection.Remote left parietal/ posterior frontal and cerebellar infarcts. Chronic small vessel ischemic changes which are advanced. Remote basal ganglia lacunar infarcts. Bilateral mastoid fluid. The calvarium is intact. Intracranial atherosclerosis. IMPRESSION: No acute intracranial abnormality. Physical Exam: GENERAL: The patient is a well-developed, well-nourished, in no apparent distress. Alert and oriented x3. VITAL SIGNS: Reviewed HEENT: Head is normocephalic and atraumatic. Extraocular muscles are intact. Pupils are equal, round, and reactive to light and accommodation. Nares appeared normal. Mouth is well hydrated and without lesions. Mucous membranes are moist. NECK: Supple. No carotid bruits. No lymphadenopathy or thyromegaly. LUNGS: Clear to auscultation. No crackles or wheezes are heard. HEART: Regular rate and rhythm, no appreciable gallops, rubs, murmurs or extra heart sounds ABDOMEN: Soft, nontender, and nondistended. Positive bowel sounds. No hepatosplenomegaly was noted. EXTREMITIES: Without any cyanosis, clubbing, rash, lesions or peripheral edema. NEUROLOGIC: Dementia is noted. SKIN: Normal color, turgor and temperature. No ulcerations or rashes noted. Impression: Weakness secondary to UTI Hx of CVA Atrial fibrillation not on chronic anticoagulation HTN Hyperlipidemia DM Type 2 Dementia Chronic Renal Disease, Stage 3 Plan: Weakness secondary to UTI: Will start Rocephin. Blood and urine culture obtained. Will start IV fluids. Consult PT and OT. Likely home in 2 days. Hx of CVA: Restart ASA and Plavix. Atrial fibrillation not on chronic anticoagulation:Continue with Coreg, ASA and Plavix. HTN:Continue with Coreg and Losartan. Hyperlipidemia: Restart home medication. DM Type 2: Continue Accu-Cheks and sliding scale. Will check A1c. Dementia: Continue Aricept and Namenda. Chronic Renal Disease, Stage 3: Continue IV fluids. Will monitor closely. Code Status: Patient is DO NOT RESUSCITATE DVT prophylaxis: Lovenox Advanced Care Planning-30 minutes: Patient lives at home. reports home health and physical therapy at discharge. Discharge Plan: Home Plan to discharge in: 48 Hours - Advance Directives Does patient have a Living Will: No Does patient have a Durable POA for Healthcare: Yes - Code Status/Comfort Care Code Status Assessed: Yes (Patient is DO NOT RESUSCITATE) Time Spent Managing Pts Care (In Minutes): 55
[2021-08-28] MEDS ORDERED: ONDANSETRON 4 MG/2 ML VIAL IV PRN (16:47)
[2021-08-28] MEDS ORDERED: ACETAMINOPHEN 500 MG TAB PO PRN (16:47)
[2021-08-28] MEDS: NA CHLORIDE 0.9% 1,000 ML IV SCH (16:47)
[2021-08-28] MEDS ORDERED: QUETIAPINE 25 MG TAB PO PRN (16:47)
[2021-08-28] MEDS: INSULIN -REGULAR HUMAN 50 UNIT/0.5 ML ML SQ SCH ×2 (16:47→21:29)
[2021-08-28] MEDS: ENOXAPARIN 40 MG/0.4 ML SQ SCH (17:00)
[2021-08-28] MEDS: CEFTRIAXONE 1,000 MG in NA CHLORIDE 0.9% 50 ML IVPB SCH (17:55)
[2021-08-28] MEDS: MEMANTINE HCL 10 MG TABLET PO SCH (21:28)
[2021-08-28] MEDS: LOSARTAN POTASSIUM 50 MG TABLET PO SCH (21:28)
[2021-08-28] MEDS: carvediloL 6.25 MG TAB PO SCH (21:29)
[2021-08-28] MEDS: DONEPEZIL HCL 5 MG TAB PO SCH (21:29)
--- NOTE | 2021-08-29 05:56 | P.PN ---
Subjective Date of Service: 08/29/21 Primary Care Provider: Out of town Chief Complaint: Fatigue Subjective: Demented Physical Examination - Vital Signs Temperature: 98.2 F Blood Pressure: 145/67 Pulse: 71 Respirations: 18 Pulse Ox (%): 99 - Studies Laboratory Data (last 24 hrs) 08/28/21 10:48: PT 14.3 H, INR 1.24 08/28/21 10:48: WBC 6.60, Hgb 11.3 L, Hct 34.1 L, Plt Count 222 08/28/21 10:48: Sodium 140, Potassium 3.3 L, BUN 16, Creatinine 1.30, Glucose 210 H, Magnesium 1.9, Total Bilirubin 1.6 H, AST 6 L, ALT 10 L, Alkaline Phosphatase 98 Assessment & Plan Discharge Plan: Home Plan to discharge in: 72 Hours Physician Review Additional Text: COVID: negative CXR: COMPARISON: Chest Single View dated 06/20/2021; Chest Single View dated 06/19/2021; Chest Single View dated 06/16/2021; Chest Single View dated 03/07/2021 FINDINGS: Lines: None. Lungs: No evidence of edema or pneumonia. Edema improved compared with 06/20/2021. Pleural: No significant pleural effusions or pneumothorax. Cardiac: Cardiomegaly. Bones: No acute fractures. IMPRESSION: No acute cardiopulmonary disease. CT scan: COMPARISON: Head Brain Wo Cont dated 06/16/2021; Head Brain Wo Cont dated 03/07/2021; Brain W/Wo Cont dated 06/16/2021 TECHNIQUE: All CT scans are performed using dose optimization technique as appropriate and may include automated exposure control or mA/KV adjustment according to patient size. FINDINGS: No intracranial hemorrhage, hydrocephalus or extra-axial fluid collection.Remote left parietal/ posterior frontal and cerebellar infarcts. Chronic small vessel ischemic changes which are advanced. Remote basal ganglia lacunar infarcts. Bilateral mastoid fluid. The calvarium is intact. Intracranial atherosclerosis. IMPRESSION: No acute intracranial abnormality. Physical Exam: GENERAL: Patient with dementia VITAL SIGNS: Reviewed HEENT: Neck supple LUNGS: Clear to auscultation. No crackles or wheezes are heard. HEART: Regular rate and rhythm, no appreciable gallops, rubs, murmurs or extra heart sounds ABDOMEN: Soft, nontender, and nondistended. Positive bowel sounds. No hepatosplenomegaly was noted. EXTREMITIES: Without any cyanosis, clubbing, rash, lesions or peripheral edema. NEUROLOGIC: Moderate to severe dementia is noted. SKIN: Normal color, turgor and temperature. No ulcerations or rashes noted. Impression: Weakness secondary to UTI with bacteremia Hx of CVA Atrial fibrillation not on chronic anticoagulation HTN Hyperlipidemia DM Type 2 Dementia Chronic Renal Disease, Stage 3 Plan: Weakness secondary to UTI with bacteremia: Continue with Rocephin. Blood cultures positive for gram-negative rods. Await urine and blood culture results. Physical therapy and Occupational Therapy to evaluate. Will need to wait on culture results before discharge. Likely home in the next 72 hours. Case discussed at length with . Hx of CVA: Restart ASA and Plavix. Atrial fibrillation not on chronic anticoagulation:Continue with Coreg, ASA and Plavix. HTN:Continue with Coreg and Losartan. Hyperlipidemia: Restart home medication. DM Type 2: Continue Accu-Cheks and sliding scale. Will check A1c. Dementia: Continue Aricept and Namenda. Chronic Renal Disease, Stage 3: Continue IV fluids. Will monitor closely. Code Status: Patient is DO NOT RESUSCITATE DVT prophylaxis: Lovenox Advanced Care Planning-30 minutes: Patient lives at home. reports home health and physical therapy at discharge. Time Spent Managing Pts Care (In Minutes): 55
[2021-08-29] MEDS: INSULIN -REGULAR HUMAN 50 UNIT/0.5 ML ML SQ SCH ×4 (07:30→20:24)
--- NOTE | 2021-08-29 07:37 | EKG ---
Test Date: 2021-08-28 Test Time: 10:23:16 Transfer Specialist: AVA MEASUREMENT RESULTS: Intervals: Rate: 60 [place]: QRSD: 110 QT: 452 QTc: 452 [place]: P: [place]: QRS: 75 T: -38 INTERPRETIVE STATEMENTS: Atrial fibrillation ST & T wave abnormality, consider inferolateral ischemia Abnormal ECG Compared to ECG 06/16/2021 11:09:47 Ventricular premature complex(es) no longer present ST (T wave) deviation still present Possible ischemia still present Electronically Signed On 08-29-21 07:35:07 FURNITURE SPRAYER by Vernon Oleary
[2021-08-29 07:39] LABS: Absolute Lymphocytes (CBC) 1.4 K/uL (0.7-4.9); Hematocrit 33.3 % (39.6-49.0); Lymphocytes % 17.7 % (15.3-44.8); MPV 9.1 fL (7.6-11.3); RBC Red Blood Cell Count 3.46 M/uL (4.33-5.43)
[2021-08-29 08:10] LABS: Magnesium 1.7 mg/dL (1.8-2.4); Potassium 3.6 mmol/L (3.5-5.1)
[2021-08-29] MEDS ORDERED: CEFTRIAXONE 1000 MG/VIAL ONE (08:36)
[2021-08-29] MEDS ORDERED: NA CHLORIDE 0.9% 50 ML ONE (08:40)
[2021-08-29] MEDS: CEFTRIAXONE 1,000 MG in NA CHLORIDE 0.9% 50 ML IVPB SCH (10:17)
[2021-08-29] MEDS: ENOXAPARIN 40 MG/0.4 ML SQ SCH (10:17)
[2021-08-29] MEDS: LOSARTAN POTASSIUM 50 MG TABLET PO SCH ×2 (10:18→20:21)
[2021-08-29] MEDS: THIAMINE HCL 100 MG TABLET PO SCH (10:18)
[2021-08-29] MEDS: carvediloL 6.25 MG TAB PO SCH ×2 (10:19→20:20)
[2021-08-29] MEDS: MEMANTINE HCL 10 MG TABLET PO SCH ×2 (10:19→20:21)
[2021-08-29] MEDS: DONEPEZIL HCL 5 MG TAB PO SCH ×2 (10:19→20:21)
[2021-08-29] MEDS: CLOPIDOGREL 75 MG TABLET PO SCH (10:19)
[2021-08-29] MEDS: ASPIRIN EC 81 MG TAB PO SCH (10:19)
[2021-08-29] MEDS: FOLIC ACID 1 MG TABLET PO SCH (10:19)
[2021-08-29] MEDS: NA CHLORIDE 0.9% 1,000 ML IV SCH (13:36)
[2021-08-29 17:16] VITALS: BMI 23.0
--- NOTE | 2021-08-30 05:51 | P.PN ---
Subjective Date of Service: 08/30/21 Primary Care Provider: Out of town Chief Complaint: Fatigue Subjective: Improving, Doing well, Demented Physical Examination - Vital Signs Temperature: 98.9 F Blood Pressure: 136/66 Pulse: 78 Respirations: 17 Pulse Ox (%): 97 - Studies Laboratory Data (last 24 hrs) 08/29/21 06:58: Sodium 141, Potassium 3.6, BUN 16, Creatinine 1.24, Glucose 167 H, Magnesium 1.7 L 08/29/21 06:58: WBC 7.80 D, Hgb 11.1 L, Hct 33.3 L, Plt Count 207 Microbiology Data (last 24 hrs): 08/28/21 12:37 Blood - Blood Blood Culture Gram Stain - Final 08/28/21 12:37 Blood - Blood Gram Stain - Final 08/28/21 12:22 Blood - Blood Blood Culture Gram Stain - Final 08/28/21 12:22 Blood - Blood Gram Stain - Final Assessment & Plan Discharge Plan: Home Plan to discharge in: 24 Hours Physician Review Additional Text: COVID: negative CXR: COMPARISON: Chest Single View dated 06/20/2021; Chest Single View dated 06/19/2021; Chest Single View dated 06/16/2021; Chest Single View dated 03/07/2021 FINDINGS: Lines: None. Lungs: No evidence of edema or pneumonia. Edema improved compared with 06/20/2021. Pleural: No significant pleural effusions or pneumothorax. Cardiac: Cardiomegaly. Bones: No acute fractures. IMPRESSION: No acute cardiopulmonary disease. CT scan: COMPARISON: Head Brain Wo Cont dated 06/16/2021; Head Brain Wo Cont dated 03/07/2021; Brain W/Wo Cont dated 06/16/2021 TECHNIQUE: All CT scans are performed using dose optimization technique as appropriate and may include automated exposure control or mA/KV adjustment according to patient size. FINDINGS: No intracranial hemorrhage, hydrocephalus or extra-axial fluid collection.Remote left parietal/ posterior frontal and cerebellar infarcts. Chronic small vessel ischemic changes which are advanced. Remote basal ganglia lacunar infarcts. Bilateral mastoid fluid. The calvarium is intact. Intracranial atherosclerosis. IMPRESSION: No acute intracranial abnormality. Physical Exam: GENERAL: Patient with dementia VITAL SIGNS: Reviewed HEENT: Neck supple LUNGS: Clear to auscultation. No crackles or wheezes are heard. HEART: Regular rate and rhythm, no appreciable gallops, rubs, murmurs or extra heart sounds ABDOMEN: Soft, nontender, and nondistended. Positive bowel sounds. No hepatosplenomegaly was noted. EXTREMITIES: Without any cyanosis, clubbing, rash, lesions or peripheral edema. NEUROLOGIC: Moderate to severe dementia is noted. SKIN: Normal color, turgor and temperature. No ulcerations or rashes noted. Impression: Weakness secondary to UTI culture positive for E. coli with bacteremia, blood culture positive for gram negative rods Hx of CVA Atrial fibrillation not on chronic anticoagulation HTN Hyperlipidemia DM Type 2 Dementia Chronic Renal Disease, Stage 3 Plan: Weakness secondary to UTI culture positive for E. coli with bacteremia, blood culture positive for gram negative rods: Cultures reviewed. Patient pansensitive. Awaiting blood culture results for final review. This will likely come tomorrow. Continue with IV Rocephin. Recheck blood culture and urine culture tomorrow. Continue physical therapy and Occupational Therapy. Anticipate discharge likely tomorrow. Hx of CVA: Continue ASA 81 mg daily, folic acid 1 mg daily and Plavix 75 mg daily. Atrial fibrillation not on chronic anticoagulation: Blood pressure slightly elevated. Will increase carvedilol to 12.5 mg 1 pill twice daily. Continue with aspirin 80 mg daily and Plavix 25 mg daily. HTN: Blood pressure slightly elevated. Will increase carvedilol to 12.5 mg 1 pill twice daily. Continue losartan 50 mg 1 pill twice daily. Will monitor and adjust appropriately. Hyperlipidemia: Continue Lipitor 80 mg daily DM Type 2: Hold glipizide. Restart Metformin. Continue Accu-Cheks and sliding scale. Hemoglobin A1c 6.7 in June 2021 Dementia: Continue Aricept 5 mg 1 pill twice daily and Namenda 10 mg 1 pill twice daily. Seroquel 25 mg at bedtime Chronic Renal Disease, Stage 3: Discontinue IV fluids. Will monitor closely. Code Status: Patient is DO NOT RESUSCITATE DVT prophylaxis: Lovenox Advanced Care Planning-30 minutes: Patient lives at home. Will continue with home health and physical therapy at discharge. Time Spent Managing Pts Care (In Minutes): 55
[2021-08-30] MEDS: NA CHLORIDE 0.9% 1,000 ML IV SCH (06:18)
[2021-08-30] MEDS: INSULIN -REGULAR HUMAN 50 UNIT/0.5 ML ML SQ SCH ×4 (07:30→20:35)
[2021-08-30] MEDS: THIAMINE HCL 100 MG TABLET PO SCH (07:42)
[2021-08-30] MEDS: MEMANTINE HCL 10 MG TABLET PO SCH ×2 (07:43→20:05)
[2021-08-30] MEDS: CLOPIDOGREL 75 MG TABLET PO SCH (07:43)
[2021-08-30] MEDS: DONEPEZIL HCL 5 MG TAB PO SCH ×2 (07:43→20:06)
[2021-08-30] MEDS: FOLIC ACID 1 MG TABLET PO SCH (07:43)
[2021-08-30] MEDS: ENOXAPARIN 40 MG/0.4 ML SQ SCH (07:44)
[2021-08-30] MEDS: ASPIRIN EC 81 MG TAB PO SCH (07:44)
[2021-08-30] MEDS: CEFTRIAXONE 1,000 MG in NA CHLORIDE 0.9% 50 ML IVPB SCH (07:44)
[2021-08-30] MEDS: LOSARTAN POTASSIUM 50 MG TABLET PO SCH ×2 (07:51→20:05)
[2021-08-30] MEDS: carvediloL 6.25 MG TAB PO SCH (07:51)
[2021-08-30] MEDS ORDERED: GLUCERNA SHAKE 237 ML CAN PO PRN (09:02)
[2021-08-30] MEDS ORDERED: CODEINE 30MG/APAP 300MG TAB PO PRN (09:02)
[2021-08-30 10:06] LABS: Absolute Lymphocytes (CBC) 1.3 K/uL (0.7-4.9); Hematocrit 37.7 % (39.6-49.0); Lymphocytes % 12.7 % (15.3-44.8); MPV 9.1 fL (7.6-11.3); RBC Red Blood Cell Count 3.94 M/uL (4.33-5.43)
[2021-08-30 10:16] LABS: Magnesium 1.7 mg/dL (1.8-2.4); Potassium 3.4 mmol/L (3.5-5.1)
[2021-08-30] MEDS ORDERED: POTASSIUM CL SA 10 MEQ TAB PO ONE (10:22)
[2021-08-30] MEDS ORDERED: MAGNESIUM SULFATE 1 gm IVPB 1 GM/100 ML BAG IV ONE (10:24)
[2021-08-30] MEDS ORDERED: CEFTRIAXONE 1,000 MG in NA CHLORIDE 0.9% 50 ML IVPB SCH ×2 (11:00→21:00)
[2021-08-30] MEDS: METFORMIN HCL 500 MG TAB PO SCH (16:03)
[2021-08-30] MEDS: LACTOBACILLUS/ACIDOPHILUS TAB PO SCH (20:06)
[2021-08-30] MEDS: carvediloL 12.5 MG TAB PO SCH (20:06)
[2021-08-30] MEDS: HOME MED 1 EA UNK (Dorzolamide Hcl/Pf [Dorzolamide 2% Eye Drop] 10 ML Drops) OPTH SCH (20:07)
[2021-08-30] MEDS: COMBIGAN OPTH SCH (20:07)
[2021-08-30] MEDS ORDERED: ATORVASTATIN 80 MG TAB PO SCH (21:00)
[2021-08-31 05:18] LABS: Magnesium 2.1 mg/dL (1.8-2.4)
[2021-08-31 05:43] LABS: Absolute Lymphocytes (CBC) 1.8 K/uL (0.7-4.9); Basophils % 1.2 % (0-1.3); Hematocrit 37.1 % (39.6-49.0); Lymphocytes % 18.6 % (15.3-44.8); MPV 9.3 fL (7.6-11.3); RBC Red Blood Cell Count 3.93 M/uL (4.33-5.43)
--- NOTE | 2021-08-31 05:52 | P.PN ---
Subjective Date of Service: 08/31/21 Primary Care Provider: Out of town Chief Complaint: Fatigue Subjective: Improving, Doing well, Demented Physical Examination - Vital Signs Temperature: 97.3 F Blood Pressure: 178/77 Pulse: 60 Respirations: 17 Pulse Ox (%): 97 - Studies Microbiology Data (last 24 hrs): 08/28/21 12:34 Clean Catch Urine [place] Count - Final >100,000 CFU/ML. 08/28/21 12:34 Clean Catch Urine - Final Escherichia Coli Gram Neg Severino 08/28/21 12:22 Blood - Blood Blood Culture Gram Stain - Final 08/28/21 12:22 Blood - Blood Gram Stain - Final 08/28/21 12:37 Blood - Blood Blood Culture Gram Stain - Final 08/28/21 12:37 Blood - Blood Gram Stain - Final Assessment & Plan Discharge Plan: Home Plan to discharge in: 24 Hours Physician Review Additional Text: COVID: negative CXR: COMPARISON: Chest Single View dated 06/20/2021; Chest Single View dated 06/19/2021; Chest Single View dated 06/16/2021; Chest Single View dated 03/07/2021 FINDINGS: Lines: None. Lungs: No evidence of edema or pneumonia. Edema improved compared with 06/20/2021. Pleural: No significant pleural effusions or pneumothorax. Cardiac: Cardiomegaly. Bones: No acute fractures. IMPRESSION: No acute cardiopulmonary disease. CT scan: COMPARISON: Head Brain Wo Cont dated 06/16/2021; Head Brain Wo Cont dated 03/07/2021; Brain W/Wo Cont dated 06/16/2021 TECHNIQUE: All CT scans are performed using dose optimization technique as appropriate and may include automated exposure control or mA/KV adjustment according to patient size. FINDINGS: No intracranial hemorrhage, hydrocephalus or extra-axial fluid collection.Remote left parietal/ posterior frontal and cerebellar infarcts. Chronic small vessel ischemic changes which are advanced. Remote basal ganglia lacunar infarcts. Bilateral mastoid fluid. The calvarium is intact. Intracranial atherosclerosis. IMPRESSION: No acute intracranial abnormality. Physical Exam: GENERAL: Patient with dementia VITAL SIGNS: Reviewed HEENT: Neck supple LUNGS: Clear to auscultation. No crackles or wheezes are heard. HEART: Regular rate and rhythm, no appreciable gallops, rubs, murmurs or extra heart sounds ABDOMEN: Soft, nontender, and nondistended. Positive bowel sounds. No hepatosplenomegaly was noted. EXTREMITIES: Without any cyanosis, clubbing, rash, lesions or peripheral edema. NEUROLOGIC: Moderate to severe dementia is noted. SKIN: Normal color, turgor and temperature. No ulcerations or rashes noted. Impression: Weakness secondary to UTI culture positive for E. coli with bacteremia, blood culture positive for gram negative rods Hx of CVA Atrial fibrillation not on chronic anticoagulation HTN Hyperlipidemia DM Type 2 Dementia Chronic Renal Disease, Stage 3 Plan: Weakness secondary to UTI culture positive for E. coli with bacteremia, blood culture positive for E. coli: Cultures reviewed. Cultures reviewed. Patient with E. coli. Pancytopenia noted. Will repeat blood culture and urine culture prior to discharge today. We will plan for discharge today. Patient will continue with Levaquin 500 mg daily for 12 more days. Continue home health and physical therapy. Hx of CVA: Continue ASA 81 mg daily, folic acid 1 mg daily and Plavix 75 mg daily. Atrial fibrillation not on chronic anticoagulation: Blood pressure slightly elevated. Will increase carvedilol to 12.5 mg 1 pill twice daily. Continue with aspirin 80 mg daily and Plavix 25 mg daily. HTN: Blood pressure improved. Continue with carvedilol 12.5 mg 1 pill twice daily and losartan 50 mg 1 pill twice daily at discharge Hyperlipidemia: Continue Lipitor 80 mg daily DM Type 2: Continue with Metformin and glipizide at discharge. Continue Accu- Cheks and sliding scale. Hemoglobin A1c 6.7 in June 2021 Dementia: Continue Aricept 5 mg 1 pill twice daily and Namenda 10 mg 1 pill twice daily. Seroquel 25 mg at bedtime Chronic Renal Disease, Stage 3: Renal function back to baseline. Discontinue IV fluids. Will monitor closely. Code Status: Patient is DO NOT RESUSCITATE DVT prophylaxis: Lovenox Advanced Care Planning-30 minutes: Patient lives at home. Will continue with home health and physical therapy at discharge. Time Spent Managing Pts Care (In Minutes): 55
[2021-08-31] MEDS: INSULIN -REGULAR HUMAN 50 UNIT/0.5 ML ML SQ SCH (07:30)
--- NOTE | 2021-08-31 07:44 | P.DS ---
Admission Date: 08/29/21 Discharge Date: 08/31/21 Primary Care Provider: unknown Disposition: [place] HOME/HOME HEALTH CARE Discharge Condition: GOOD Reason for Admission: Fatigue Consultations: none Procedures: COVID: negative CXR: COMPARISON: Chest Single View dated 06/20/2021; Chest Single View dated 06/19/2021; Chest Single View dated 06/16/2021; Chest Single View dated 03/07/2021 FINDINGS: Lines: None. Lungs: No evidence of edema or pneumonia. Edema improved compared with 06/20/2021. Pleural: No significant pleural effusions or pneumothorax. Cardiac: Cardiomegaly. Bones: No acute fractures. IMPRESSION: No acute cardiopulmonary disease. CT scan: COMPARISON: Head Brain Wo Cont dated 06/16/2021; Head Brain Wo Cont dated 03/07/2021; Brain W/Wo Cont dated 06/16/2021 TECHNIQUE: All CT scans are performed using dose optimization technique as appropriate and may include automated exposure control or mA/KV adjustment according to patient size. FINDINGS: No intracranial hemorrhage, hydrocephalus or extra-axial fluid collection.Remote left parietal/ posterior frontal and cerebellar infarcts. Chronic small vessel ischemic changes which are advanced. Remote basal ganglia lacunar infarcts. Bilateral mastoid fluid. The calvarium is intact. Intracranial atherosclerosis. IMPRESSION: No acute intracranial abnormality. Medical Problem List: Weakness secondary to UTI culture positive for E. coli with bacteremia, blood culture positive for gram negative rods Hx of CVA Atrial fibrillation not on chronic anticoagulation HTN Hyperlipidemia DM Type 2 Dementia Chronic Renal Disease, Stage 3 Brief History of Present Illness: 81-year-old male with history of CVA, atrial fibrillation not on chronic anticoagulation therapy, hypertension, diabetes, and dementia. reports patient with increased fatigue and weakness. He apparently slipped out of bed. He felt worse today. Symptoms have been present for over 3 days. Patient is eating appropriately. No significant fever, cough. Due to the increasing weakness the brought the patient in for further evaluation. In the ER patient was evaluated. CT head unremarkable. Chest x-ray unremarkable. White count 6.6. Hemoglobin 11.3. Sodium 140, potassium 3.3. BUN of 16, creatinine 1.3 with a GFR 53. Glucose 212. Procalcitonin 0.2. Urinalysis shows evidence of UTI. Patient will be started on antibiotic therapy. Patient admitted for treatment. Hospital Course: Patient presented with weakness secondary to UTI. Patient was admitted for treatment. Patient also found to be bacteremic. Acute on chronic renal disease also identified. Patient received IV fluids and IV antibiotic therapy with improvement. Urine and blood cultures were positive for E. coli. Tiwari sensitivity was noted. Patient responded well to treatment. At discharge the patient will continue with Ceftin 250 mg 1 pill twice daily for 12 more days to complete treatment. Repeat blood and urine cultures were obtained prior to discharge. Recommend follow-up with PCP in 1 week to follow-up his hospitalization. PCP will need to follow-up on culture results. UTI prevention will be provided. Patient with history of CVA. Overall stable. CT scan showed no acute change. At discharge patient will continue with aspirin 81 mg daily, folic acid 1 mg daily, and Plavix 75 mg daily. Patient with atrial fibrillation not on chronic anticoagulation therapy. Overall stable. At discharge patient will continue with aspirin 81 mg daily, Plavix 25 mg daily, and carvedilol 12.5 mg 1 pill twice daily. Patient with hypertension. Medication was adjusted for improvement. Blood pressure stable at discharge. At discharge patient will continue with carvedilol 12.5 mg 1 pill twice daily and losartan 50 mg 1 pill twice daily. Recommend to maintain blood pressure less 130/80. Further adjustment can be done by his PCP. Patient with hyperlipidemia. At discharge patient will continue with Lipitor 80 mg daily. Patient with diabetes mellitus type 2. Prior hemoglobin A1c 6.7 in June 2021. At discharge patient will continue with Metformin 500 mg 1 pill twice daily and glipizide 10 mg 1 pill twice daily. Recommend to maintain blood sugar less than 140 fasting and less than 200 after meals. Further adjustment can be done by PCP. Recommend to recheck hemoglobin A1c every 3 months. Follow-up with PCP to further monitor and adjust medication. Patient with dementia. Overall stable. At discharge patient will continue with his current medications of Aricept, Namenda, and Seroquel. Recommend follow-up with PCP to further monitor and address. Patient with acute on chronic renal disease stage III. Patient received IV fluids with improvement. Renal function back to baseline. Future medications may need to be renally dosed. Recommend no further use of nonsteroidal anti- inflammatories. Recommend to recheck labBMP in 1 to 2 weeks to monitor his progress. Vital Signs/Physical Exam: Temp Pulse Resp BP Pulse Ox 97.3 F 60 17 178/77 H 97 08/31/21 07:36 08/31/21 07:36 08/31/21 07:36 08/31/21 07:36 08/31/21 07:36 General: Alert, Demented HEENT: Atraumatic Neck: Supple Respiratory: Clear to auscultation bilaterally, Normal air movement Cardiovascular: Irregular heart rate/rhythm (A. fib rate controlled) Gastrointestinal: Normal bowel sounds, No tenderness, No masses, No rebound, No guarding Musculoskeletal: No erythema, No tenderness, No warmth Integumentary: No tenderness/swelling, No erythema Neurological: Normal speech, Normal strength at 5/5 x4 extr, Normal tone, Dementia Laboratory Data at Discharge: WBC 9.50 K/uL (4.3-10.9) 08/31/21 04:54 Hgb 12.7 g/dL (13.6-17.9) L 08/31/21 04:54 Hct 37.1 % (39.6-49.0) L 08/31/21 04:54 Plt Count 241 K/uL (152-406) 08/31/21 04:54 PT 14.3 SECONDS (9.5-12.5) H 08/28/21 10:48 INR 1.24 08/28/21 10:48 Sodium 139 mmol/L (136-145) 08/31/21 04:54 Potassium 4.0 mmol/L (3.5-5.1) 08/31/21 04:54 BUN 15 mg/dL (7-18) 08/31/21 04:54 Creatinine 1.02 mg/dL (0.55-1.3) 08/31/21 04:54 Glucose 189 mg/dL (74-106) H 08/31/21 04:54 Magnesium 2.1 mg/dL (1.8-2.4) 08/31/21 04:54 Total Bilirubin 1.6 mg/dL (0.2-1.0) H 08/28/21 10:48 AST 6 U/L (15-37) L 08/28/21 10:48 ALT 10 U/L (12-78) L 08/28/21 10:48 Alkaline Phosphatase 98 U/L (45-117) 08/28/21 10:48 Home Medications: Metformin HCl 500 mg PO BID 05/26/20 Brimonidine Tartrate/Timolol [Combigan 0.2%-0.5% Eye Drops] 1 gtt EACH EYE BID 07/07/20 Travoprost [Travatan Z*] 1 gtt EACH EYE DAILY 07/07/20 Folic Acid 1 mg PO DAILY #30 tablet 07/14/20 Magnesium Oxide [Mag 0X*] 400 mg PO DAILY #30 tab 07/14/20 Ascorbate Calcium [Vitamin C] 2 tab PO DAILY 03/07/21 Docusate [Colace Cap*] 100 mg PO DAILYPRN PRN 03/07/21 Donepezil [Aricept*] 2 tab PO BID 03/07/21 Famotidine [Pepcid] 1 tab PO DAILYPRN PRN 03/07/21 Polyethylene Glycol 3350 [Miralax] 17 gm PO DAILYPRN PRN 03/07/21 Quetiapine [Seroquel*] 1 tab PO BIDP PRN 03/07/21 Zinc 1 tab PO DAILY 03/07/21 Dorzolamide HCl/Pf [Dorzolamide 2% Eye Drop] 1 drop OP BID 03/14/21 Atorvastatin Calcium [Lipitor] 80 mg PO BEDTIME tab 03/28/21 Bisacodyl [Dulcolax*] 10 mg [place] DAILY PRN supp 03/28/21 Cholecalciferol (Vitamin D3) [Vitamin D 1000 Iu Tab*] 1,000 unit PO DAILY tab 03/28/21 Combigan 1 drop OPTH BID 03/28/21 Codeine/APAP [Tylenol #3*] 300 mg PO BID 06/16/21 Glipizide [Glipizide ER] 10 mg PO BID 06/16/21 Glucerna Shake [Glucerna*] 237 ml PO BID PRN #60 can 06/27/21 Losartan Potassium [Cozaar*] 50 mg PO BID #60 tablet 06/27/21 Memantine HCl [Namenda*] 10 mg PO BID #60 tablet 06/27/21 Quetiapine [Seroquel*] 25 mg PO BEDTIME #30 tab 06/27/21 Thiamine HCl [Vitamin B-1*] 100 mg PO DAILY #30 tablet 06/27/21 Aspirin [Aspirin EC 81 MG] 81 mg PO DAILY #90 tablet. 08/31/21 Cefuroxime [Ceftin] 250 mg PO BID #24 tab 08/31/21 Clopidogrel Bisulfate [Plavix] 75 mg PO DAILY #30 tablet 08/31/21 carvediloL [Coreg*] 12.5 mg PO BID #60 tab 08/31/21 New Medications: Aspirin [Aspirin EC 81 MG] 81 mg PO DAILY #90 tablet. Cefuroxime [Ceftin] 250 mg PO BID #24 tab carvediloL [Coreg*] 12.5 mg PO BID #60 tab Clopidogrel Bisulfate [Plavix] 75 mg PO DAILY #30 tablet Physician Discharge Instructions: Patient presented with weakness secondary to UTI. Patient was admitted for treatment. Patient also found to be bacteremic. Acute on chronic renal disease also identified. Patient received IV fluids and IV antibiotic therapy with improvement. Urine and blood cultures were positive for E. coli. Tiwari sensitivity was noted. Patient responded well to treatment. At discharge the patient will continue with Ceftin 250 mg 1 pill twice daily for 12 more days to complete treatment. Repeat blood and urine cultures were obtained prior to discharge. Recommend follow-up with PCP in 1 week to follow-up his hospitalization. PCP will need to follow-up on culture results. UTI prevention will be provided. Patient with history of CVA. Overall stable. CT scan showed no acute change. At discharge patient will continue with aspirin 81 mg daily, folic acid 1 mg daily, and Plavix 75 mg daily. Patient with atrial fibrillation not on chronic anticoagulation therapy. Overall stable. At discharge patient will continue with aspirin 81 mg daily, Plavix 25 mg daily, and carvedilol 12.5 mg 1 pill twice daily. Patient with hypertension. Medication was adjusted for improvement. Blood pressure stable at discharge. At discharge patient will continue with carvedilol 12.5 mg 1 pill twice daily and losartan 50 mg 1 pill twice daily. Recommend to maintain blood pressure less 130/80. Further adjustment can be done by his PCP. Patient with hyperlipidemia. At discharge patient will continue with Lipitor 80 mg daily. Patient with diabetes mellitus type 2. Prior hemoglobin A1c 6.7 in June 2021. At discharge patient will continue with Metformin 500 mg 1 pill twice daily and glipizide 10 mg 1 pill twice daily. Recommend to maintain blood sugar less than 140 fasting and less than 200 after meals. Further adjustment can be done by PCP. Recommend to recheck hemoglobin A1c every 3 months. Follow-up with PCP to further monitor and adjust medication. Patient with dementia. Overall stable. At discharge patient will continue with his current medications of Aricept, Namenda, and Seroquel. Recommend follow-up with PCP to further monitor and address. Patient with acute on chronic renal disease stage III. Patient received IV fluids with improvement. Renal function back to baseline. Future medications may need to be renally dosed. Recommend no further use of nonsteroidal anti- inflammatories. Recommend to recheck labBMP in 1 to 2 weeks to monitor his progress. Diet: AHA Activity: Fall precautions Followup: ADRIENNE DELEON [Primary Care Provider] - Time spent managing pt's care (in minutes): 55
[2021-08-31] MEDS ORDERED: CEFUROXIME 250 MG TAB PO SCH ×2 (09:00)
[2021-08-31] MEDS ORDERED: CLOPIDOGREL 75 MG TABLET PO SCH (09:00)
[2021-08-31] MEDS ORDERED: MAGNESIUM OXIDE 400 MG TAB PO SCH (09:00)
[2021-08-31] MEDS ORDERED: TRAVOPROST 0.004% OPTH SCH (09:00)
[2021-08-31] MEDS ORDERED: VITAMIN D 1000 UNIT TAB PO SCH (09:00)
[2021-08-31] MEDS ORDERED: levoFLOXacin 500 MG TAB PO SCH (09:00)
[2021-08-31] MEDS: COMBIGAN OPTH SCH (09:00)
[2021-08-31] MEDS: HOME MED 1 EA UNK (Dorzolamide Hcl/Pf [Dorzolamide 2% Eye Drop] 10 ML Drops) OPTH SCH (09:00)
[2021-08-31] MEDS ORDERED: ASCORBIC ACID 500 MG TABLET PO SCH (09:00)
[2021-08-31] MEDS ORDERED: ZINC SULFATE 220 MG CAP PO SCH (09:00)
[2021-08-31 09:21] VITALS: BP 155/75; TEMP 98
[2021-08-31] MEDS: carvediloL 12.5 MG TAB PO SCH (09:33)
[2021-08-31] MEDS: LACTOBACILLUS/ACIDOPHILUS TAB PO SCH (09:33)
[2021-08-31] MEDS: DONEPEZIL HCL 5 MG TAB PO SCH (09:33)
[2021-08-31] MEDS: MEMANTINE HCL 10 MG TABLET PO SCH (09:33)
[2021-08-31] MEDS: ASPIRIN EC 81 MG TAB PO SCH (09:33)
[2021-08-31] MEDS: FOLIC ACID 1 MG TABLET PO SCH (09:33)
[2021-08-31] MEDS: METFORMIN HCL 500 MG TAB PO SCH (09:34)
[2021-08-31] MEDS: CLOPIDOGREL 75 MG TABLET PO SCH (09:34)
[2021-08-31] MEDS: ENOXAPARIN 40 MG/0.4 ML SQ SCH (09:35)
[2021-08-31] MEDS: LOSARTAN POTASSIUM 50 MG TABLET PO SCH (09:35)
[2021-08-31] MEDS: THIAMINE HCL 100 MG TABLET PO SCH (09:35)
[2021-08-31 12:51] VITALS: O2SAT 99
== END 2021-08-31 11:07 | disposition home health service (06) | DRG 690 ==
LOC: ER 09:46 → ERHOLD 13:44 → 2ND 16:08 → OBSVTOIN 08-29 09:52
PROVIDERS: ADMIT Family Medicine; ATTEND Family Medicine
DX: N39.0 Urinary tract infection, site not specified (principal); N17.9 Acute kidney failure, unspecified; R78.81 Bacteremia; D61.818 Other pancytopenia; B96.20 Unspecified Escherichia coli [E. coli] as the cause of diseases classified elsewhere; I12.9 Hypertensive chronic kidney disease with stage 1 through stage 4 chronic kidney disease, or unspecified chronic kidney disease; E11.22 Type 2 diabetes mellitus with diabetic chronic kidney disease; N18.30 Chronic kidney disease, stage 3 unspecified; F03.90 Unspecified dementia, unspecified severity, without behavioral disturbance, psychotic disturbance, mood disturbance, and anxiety; I48.91 Unspecified atrial fibrillation; E78.5 Hyperlipidemia, unspecified; Z66 Do not resuscitate; Z20.822 Contact with and (suspected) exposure to COVID-19
CPT/HCPCS: 0240U; 36415; 70450; 71045; 80048; 80076; 81003; 81015; 82947; 83605; 83735; 83880; 84132; 84145; 84484; 85025; 85610; 87040; 87077; 87086; 87088; 87186; 87205; 93005; 96365; 96366; 97116; 97161; 97530; 99285; G0378; J1650; J3475; J7030

== ENCOUNTER 2021-11-16 15:02 | Emergency (ER) | payer MEDICARE, OTHER ==
--- OUTSIDE RECORDS SUMMARY | 2021-11-16 15:07 | XMS REPORT | Continuity of Care Document ---
:1940 Author Organization [facility] t Address [address] [place] [address] Care Team Providers Name Role Phone Pcp Primary Care Physician Unavailable Katharina Attending Clinician Unavailable Raslan Attending Clinician Unavailable LINNETTE Attending Clinician Unavailable [...] Memoria PAIN 2-13 09:39:00 l DJD 08:38: [place] LUMBAR 00 PAIN Active 10/22/2018 [facility] Erosion of Erosion of Disease Active C [...] 05-11 [facility] AMS, UTI, Diagnosis Active 2017-12-31 Memoria KIDNEY 4-24 22:28:00 l INJURY AMS, 00:00: [place] UTI, 00 KIDNEY INJURY Active 12/31/2017 [facility] INJURY OF Diagnosis Active 2018-01-07 Memoria URETER 4-24 22:03:00 l INJURY 00:00: [place] OF URETER 00 Active 12/31/2017 [facility] [id number], Diagnosis Active 2018-04-17 Memoria [id number] 3- 16:05:00 l BILATERAL 00:00: Emdund UMBILICAL [id number], 00 OUMAR [id number] BILATERAL UMBILICAL OUMAR Active 12/03/2017 [facility] Chest pain Problem Active 2020-11-02 M emoria (finding) 10-30 22:19:21 l Chest 00:00: [place] pain 00 (finding) Active 10/30/2012 Problem 11/02/2020 Data migrated from [employer] on 02/05/15. Medical Group,[facility] NAWAF Kwasi History of History of Problem [...] diabetes [id number] it y of mellitus mellitus [place] with with Physici hyperglyce hyperglyce an s [...] d injury 02:22:13 l of ureter, Brennen n initial Unspecifie encounter d injury of ureter, initial encounter 01/05/2018 [facility] Carotid Problem Active 2020-11-02 Ryan melodie atheroscle 22:19:21 l rosis Carotid [place] (disorder) atheroscle rosis (disorder) Active Problem 11/02/2020 [facility] Coron[facility] Problem Active 2020-11-02 Mem oria arterioscl 22:19:21 l erosis Coronary Brennen n (disorder) arterioscl erosis (disorder) Active Problem 11/02/2020 Data migrated from [employer] on 02/05/15. Medical Group,[facility] Diabetes Problem Active 2020-11-02 Mem oria mellitus 22:19:21 l (disorder) Diabetes He rmann mellitus (disorder) Active Problem 11/02/2020 Medical Group,[facility] Kwasi Hyperlipid Problem Active 2020-11-02 M emoria emia 22:19:21 l (disorder) Brennen n Hyperlipid emia (disorder) Active Problem 11/02/2020 Medical Group,[facility] [place] Hypertensi Problem Active 2020-11-02 M emoria ve 22:19:21 l disorder, [place] systemic Hypertensi arterial ve (disorder) disorder, systemic arterial (disorder) Active Problem 11/02/2020 Data migrated from [employer] on 02/05/15. Medical Group,[facility] [place] Mitral Problem Active 2020-11-02 Memor ia valve 22:19:21 l regurgitat Mitral Herm donavon ion valve (disorder) regurgitat ion (disorder) Active Problem 11/02/2020 Medical Group,[facility] [place] Nonspecifi Problem Active 2020-11-[address]-T 22:19:21 l abnormalit Brennen n y on Nonspecifi electrocar c ST-T diogram abnormalit (finding) y on electrocar diogram (finding) Active Problem 11/02/2020 Medical Group,[facility] [place] Persistent Problem Active 2020-11-02 M emoria atrial 22:19:21 l fibrillati Brennen n on Persistent (disorder) atrial fibrillati on (disorder) Active Problem 11/02/2020 Medical Group,[facility] [place] Tricuspid Problem Active 2020-11-02 Me moria valve 22:19:21 l regurgitat Brennen n ion Tricuspid (disorder) valve regurgitat ion (disorder) Active Problem 11/02/2020 Medical Group,[facility] [place] Femoral Problem Active 2020-11-02 Ryan melodie hernia 22:19:21 l (disorder) Femoral Her dickson hernia (disorder) Active Problem 11/02/2020 Medical Group,[facility] [place] Gastroesop Problem Active 2020-11-02 Ruth goodson hageal 22:19:21 l reflux Edmund disease Gastroesop with hageal esophagiti reflux s disease (disorder) with esophagiti s (disorder) Active Problem 11/02/2020 Medical Group,[facility] [place] Glaucoma Problem Active 2020-11-02 Mem oria (disorder) 22:19:21 l Glaucoma Brennen n (disorder) Active Problem 11/02/2020 Medical Group,[facility] [place] Umbilical Problem Active 2020-11-02 Me moria hernia 22:19:21 l (disorder) Brennen n Umbilical hernia (disorder) Active Problem 11/02/2020 Medical Group,[facility] [place] ALTERED Diagnosis Active 2017-12-31 Me moria MENTAL 22:28:00 l STATUS, ALTERED Brennen n UNSPECIFIE MENTAL D STATUS, UNSPECIFIE D Active [facility] UNSPECIFIE Diagnosis Active 2018-01-07 Memoria D INJURY 22:03:00 l OF URETER, Brennen n INITIAL EN UNSPECIFIE D INJURY OF URETER, INITIAL EN Active [facility] AMS/ UTI/ Diagnosis Active 2018-01-01 Memoria DIRECT 19:23:00 l ADMIT AMS/ [place] UTI/ DIRECT ADMIT Active [facility] Allergies, Adverse Reactions, Alerts Allergy Allergy Status Severity Reaction(s) Onset Inactive Treating Comm ents Source Name Type Date Date Clinician No Known DA Active U [facility]ie 9-20 Clear s 00:00: Zambrano 00 [facility] No Known DA Active U [facility] Allergie 9-20 Clear s 00:00: Zambrano 00 [facility] No Known DA Active U 0 [facility] Allergie 8 Clear s 00:00: Zambrano 00 [facility] No Known DA Active U 0 [facility] Allergie 8- Clear s 00:00: Zambrano 00 [facility] Social History Social Habit Start Date Stop Date Quantity Comments Source Alcohol intake 2018-05-14 2018-05-14 Current KRYSTAL Greene es - 00:00:00 00:00:00 non-drinker of Medical Ce nter alcohol (finding) Tobacco use and 2018-04-30 2018-04-30 Never used KRYSTAL Reilly kes - exposure 00:00:00 00:00:00 [facility] Tobacco Comment 2018-04-30 2018-04-30 quit 30 yrs ago KRYSTAL Chapa - 00:00:00 00:00:00 [facility] Social History 2017-12-18 2017-12-18 [facility] royal 16:53:06 16:53:06 Sex [birth year] At [birth year] KRYSTAL Reilly kes - 00:00:00 00:00:00 [facility] Smoking Status Start Date Stop Date Source Never smoker [facility] Former smoker 2018-04-30 00:00:00 2018-04-30 00:00:[address] [facility] [address] [facility] Medications Ordered Filled Start Stop Current Ordering Indication Dosage Frequency Signature Comments Components Source Medication Medication Date Date Medication? Clinician (SIG) Name Name lisinopril 2019-0 Yes 20 mg = 1 Me moria 20 mg oral 2-24 tab, PO, l tablet 17:14: Daily, 0 Edmund 00 Refill(s) Aspirin 81 2020-0 Yes 81 mg = 1 Me moria MG Enteric 2-24 tab, PO, l Coated 17:14: Daily, # [place] Tablet 00 90 tab, 3 Refill(s) NovoLog 2020-0 Yes SUB-Q, Memoria 2-24 TID-Before l 17:14: Meals, 0 Edmund 00 Refill(s) lisinopril 2019-0 Yes 40 mg = 1 Me moria 40 mg oral 8-26 tab, PO, l tablet 15:26: Daily, 0 Edmund 00 Refill(s) apixaban 5 2019-0 Yes 5 mg = 1 Mem oria MG Oral 3-29 tab, PO, l Tablet 19:59: BID, # 180 Larissa nn [Eliquis] 56 tab, 3 Refill(s), Pharmacy: [facility] [id number] lisinopril 2019-0 Yes 5 mg = 1 Mem oria 5 mg oral 2-25 tab, PO, l tablet 16:45: BID, 0 [place] 00 Refill(s) sitagliptin 2019-0 Yes 50 mg = 1 M emoria 50 MG Oral 2-25 tab, PO, l Tablet 16:45: Daily, 0 Edmund [Januvia] 00 Refill(s) atorvastati 2017-0 Yes 40mg QD Take 40 [...] mouth Medica l 24 hr 36 daily. [place] capsule travoprost 2018-0 Yes 1[drp] QD Place [address] (TRAVATAN 9-07 drop into [facility] - Z) 0.004 % 14:03: both eyes Me dical Drop 36 nightly. Center ophthalmic drops brimonidine 2018-0 Yes 1[drp] QD [address] -timolol 9-07 nightly . [facility] - (COMBIGAN) 14:03: Medical 0.2-0.5 % 36 Center ophthalmic solution nitrofurant 2018-0 Yes 100mg Q.25D Take [address] oin 9-07 mg by [facility] - (MACRODANTI 14:03: mouth 4 Med ical N) 100 MG 36 (four) Center capsule times daily . finasteride Yes 5mg QD Take [address] (PROSCAR) 5 9-07 by mouth Luke s - mg tablet 14:03: daily. Medica l 36 Center Ciprofloxac Yes 250 mg = 1 Memoria in 250 MG 6-18 tab, PO, l Oral Tablet 15:22: Q12H, X 7 H ermann [Cipro] 00 day, # 14 tab, 0 Refill(s), Pharmacy: [facility] [id number] Eliquis No Notes: Memoria -26 Same as: l 22:00: Eliquis Edmund 00 [...] - (Same As: l 02:00: Timoptic, Edmund Betimol) metoprolol No Notes: Memor ia tartrate 01-02 (Same as: l 02:00: Lopressor) brimonidine No Notes: Ryan melodie ophthalmic 01-02 (Same As: l 02:00: Alphagan) latanoprost No Notes: Ryan melodie ophthalmic - Keep l 02:00: refrigerat Edmund ed. (Same as:Xalatan ) Opened bottle may be stored at room temperatur e for 6 weeks Magnesium No Notes: Memori a Sulfate - WASTE: F/P l 23:00: - Sink; E Edmund - Municipal Trash Bin travoprost No 1 [...] moria IV -25 1,000 l 10:48: ml/hr, Edmund 00 Infuse Over: 1 hr, Route: IV, 1,000, [...] 4-25 not exceed l 04:07: 4 gm/day. [place] 00 (Same as: Tylenol) Acetaminoph No Notes: Ryan melodie en 325 MG / 4-25 (Same as: l Hydrocodone 04:07: Blue Larissa nn Bitartrate 00 325/5) Do 5 MG Oral not exceed Tablet 4gm/day of acetaminop hen. Sodium 0 No 1,000 mL, Memori a Chloride 4-25 Rate: 75 l 0.9% IV 04:07: ml/hr, [place] 1,000 mL 00 Infuse over: 13.3 hr, Route: IV, Dosing Weight 93.295 kg, Total Volume: 1,000, Start date: 12/31/17 23:07:00 CDT, Duration: 30 day, Stop date: 01/30/18 23:06:00 CDT, 2.19, m2 glycopyrrol No Route: IV, Memoria ate (ANES) 16 Drug form: l 21:01: INJ, ONCE, Stop date: 12/23/17 16:01:00 CDT neostigmine No Route: IV, Memoria (ANES) 4-16 Drug form: l 21:01: INJ, ONCE, Stop date: 12/23/17 16:01:00 CDT ondansetron 0 No Route: IV, Memoria (ANES) 4-16 Drug form: l 20:52: INJ, ONCE, Stop date: 12/23/17 15:52:00 CDT Hydralazine 0 No 10 mg, Ryan melodie 4-16 Route: l 19:45: IVP, Q20Min, Dosing Weight 84.091, kg, PRN Elevated BP, Start date: 12/23/17 14:45:00 CDT, Duration: 2 doses or times, Stop date: Limited # of times Ondansetron 2017-0 No 4 mg, Memor ia 4-16 Route: l 19:45: IVP, ONCE, Dosing Weight 84.091, kg, PRN Nausea & Vomiting, Start date: 12/23/17 14:45:00 CDT Morphine 0 No 2 mg, Memoria 4-16 Route: l 19:45: IVP, Edmund 00 Q5Min, Dosing Weight 84.091, kg, PRN Pain Score 4-6, Start date: 12/23/17 14:45:00 CDT, Duration: 5 doses or times, Stop date: Limited # of times Naloxone 2017-0 No 0.4 mg, Memori a 12-23 Route: l 19:45: IVP, [place] 00 Q2MIN, Dosing Weight 84.091, kg, PRN Narcotic Reversal, Start date: 12/23/17 14:45:00 CDT, Duration: 8 doses or times, Stop date: Limited # of times Flumazenil 0 No 0.2 mg, Ryan melodie 12-23 Route: l 19:45: IVP, PRN, [place] 00 Dosing Weight 84.091, kg, PRN Benzodiaze pine Reversal, Initial dose, Start date: 12/23/17 14:45:00 CDT, Duration: 30 day, Stop date: 01/22/18 14:44:00 CDT Hydromorpho 2017-0 No 0.5 mg, Mem oria ne 12-23 Route: l 19:45: IVP, [place] 00 Q5Min, Dosing Weight 84.091, kg, PRN [...] ONCE, Stop date: 12/23/17 14:17:00 CDT lidocaine 2017- No Route: IV, Me moria (ANES) 4-16 Drug form: l 19:17: INJ, ONCE, Stop date: 12/23/17 14:17:00 CDT propofol 2017- No Route: IV, Mem oria (ANES) 4-16 Drug form: l 19:17: INJ, ONCE, Stop date: 12/23/17 14:17:00 CDT ePHEDrine 2017-0 No Route: IV, Me moria (ANES) 4-16 Drug form: l 19:02: INJ, ONCE, [place] 00 Stop date: 12/23/17 14:02:00 CDT ceFAZolin 2017- No Route: IV, Me moria (ANES) 4-16 Drug form: l 19:02: INJ, ONCE, Edmund 00 Stop date: 12/23/17 14:02:00 CDT acetaminoph No Route: IV, Memoria en (ANES) -16 [...] Route: l de 10 MG/ML 16:00: INTRADERM, [place] Injectable 00 Dosing Solution Weight 84.091, kg, [...] tab, PO, l tablet 18:46: Daily, # [place] 05 90 tab, 1 Refill(s), Pharmacy: [place] [id number], DUE FOR AN OFFICE VISIT. PLEASE CALL DR. FLETCHER' S OFFICE TO MAKE AN APT. lisinopril No 20 mg = 1 Me moria 20 mg oral 3-26 tab, PO, l tablet 18:44: Daily, # [place] 59 90 tab, 1 Refill(s), Pharmacy: [place] [id number], DUE FOR AN OFFICE VISIT. PLEASE CALL DR. CLOVIN 'S OFFICE TO MAKE AN APT. Metoprolol Yes 100 mg = 1 M emoria Succinate 3-26 tab, PO, l ER 100 mg 18:44: Daily, # Herm donavon oral 22 90 tab, 1 tablet, Refill(s), extended Pharmacy: [place] [id number] atorvastati Yes 40 mg = 1 M emoria n 40 mg 3-26 tab, PO, l oral tablet 18:44: Daily, # He rmann 00 90 tab, 1 Refill(s), Pharmacy: [facility] [place] [id number] dapaglifloz Yes 5 mg = 1 Me [...] nn [Eliquis] 44 tab, 1 Refill(s), Pharmacy: [place] [id number] Metoprolol Metoprolol Yes Uni vers Tartrate 25 Tartrate 25 i ty of MG Oral MG Oral [place] Tablet Tablet Physici ans GlipiZIDE GlipiZIDE Yes Unive rs 10 MG Oral 10 MG Oral ity of Tablet Tablet [place] Physici ans PriLOSEC 10 PriLOSEC 10 Yes U nivers MG CPDR MG CPDR ity of [place] Physici ans Atorvastati Atorvastati Yes U nivers [...] vers HCl CAPS HCl CAPS ity of [place] Physici ans Ciprofloxac Ciprofloxac Yes U nivers in 500 MG in 500 MG ity o f TABS TABS [place] Physici ans Acetaminoph Acetaminoph Yes U nivers en-Codeine en-Codeine ity of #3 300-30 #3 300-30 [place] MG Oral MG Oral Physici Tablet Tablet ans Ondansetron Ondansetron Yes U nivers 4 MG Oral 4 MG Oral ity o f Tablet Tablet [place] Disintegrat Disintegrat P hysici ing ing ans Januvia 50 Januvia 50 Yes Uni vers MG Oral MG Oral ity of Tablet Tablet [place] Physici ans Eliquis 2.5 Eliquis 2.5 Yes U nivers MG Oral MG Oral ity of Tablet Tablet [place] Physici ans Vital Signs Vital Name Observation Time Observation Value Comments Source Systolic (mm Hg) 2020-02-24 14:38:00 Ryan Shaffer Diastolic (mm Hg) 2020-02-24 14:38:00 [facility] mayra Shaffer Heart Rate 2020-02-24 14:38:00 [facility] Height 2020-02-24 14:38:00 182.88 cm [facility] Weight 2020-02-24 14:38:00 [facility] BMI Calculated 2020-02-24 14:38:00 Brian Medina Systolic (mm Hg) 2019-11-02 17:12:00 Ryan Shaffer Diastolic (mm Hg) 2019-11-02 17:12:00 Mem orial [place] Heart Rate 2019-11-02 17:12:00 [facility] [place] Height 2019-11-02 17:12:00 180.34 cm [facility] [place] Weight 2019-11-02 17:12:00 [facility] [place] BMI Calculated 2019-11-02 17:12:00 Memori al [place] Systolic (mm Hg) 2019-05-04 15:24:00 Ryan rial [place] Diastolic (mm Hg) 2019-05-04 15:24:00 Mem orial [place] Heart Rate 2019-05-04 15:24:00 [facility] [place] Height 2019-05-04 15:24:00 180.34 cm [facility] [place] Weight 2019-05-04 15:24:00 [facility] [place] BMI Calculated 2019-05-04 15:24:00 Memori al [place] BMI Calculated 2018-11-03 16:43:00 Memori al [place] Weight 2018-11-03 16:43:00 [facility] [place] Height 2018-11-03 16:43:00 177.8 cm [facility] [place] Systolic (mm Hg) 2018-11-03 16:43:00 Ryan rial [place] Diastolic (mm Hg) 2018-11-03 16:43:00 Mem orial [place] Heart Rate 2018-11-03 16:43:00 [facility] [place] Height 2018-09-17 10:37:00 71 [in_us] [facility] Weight 2018-09-17 10:37:00 198 [lb_av] [facility] Body Mass Index 2018-09-17 10:37:00 27.62 kg/m2 Unive rsity of Calculated [place] Physician s Heart Rate 2018-05-05 16:44:00 [facility] [place] Systolic (mm Hg) 2018-05-05 16:44:00 Ryan rial [place] Diastolic (mm Hg) 2018-05-05 16:44:00 Mem orial [place] Weight 2018-05-05 16:44:00 [facility] [place] BMI Calculated 2018-05-05 16:44:00 Memori al [place] Height 2018-05-05 16:44:00 177.8 cm [facility] [place] BMI Calculated 2018-02-24 15:01:00 Memori al [place] Weight 2018-02-24 15:01:00 [facility] [place] Height 2018-02-24 15:01:00 182.88 cm [facility] [place] Systolic (mm Hg) 2018-02-24 15:01:00 Ryan rial [place] Diastolic (mm Hg) 2018-02-24 15:01:00 Mem orial [place] Heart Rate 2018-02-24 15:01:00 [facility] [place] Temperature Oral (F) 2018-01-02 21:08:00 97.8 F [facility] [place] Systolic (mm Hg) 2018-01-02 21:08:00 Ryan rial [place] Diastolic (mm Hg) 2018-01-02 21:08:00 Mem orial [place] Respitory Rate 2018-01-02 21:08:00 Memori al [place] Heart Rate 2018-01-02 21:08:00 [facility] [place] Respitory Rate 2018-01-02 16:25:00 Memori al [place] Temperature Oral (F) 2018-01-02 16:25:00 98.2 F [facility] [place] Heart Rate 2018-01-02 16:25:00 [facility] [place] Systolic (mm Hg) 2018-01-02 16:25:00 Ryan rial [place] Diastolic (mm Hg) 2018-01-02 16:25:00 Mem orial [place] Heart Rate 2018-01-02 12:58:00 [facility] [place] Respitory Rate 2018-01-02 12:58:00 Memori al [place] Systolic (mm Hg) 2018-01-02 12:58:00 Ryan rial [place] Diastolic (mm Hg) 2018-01-02 12:58:00 Mem orial [place] Temperature Oral (F) 2018-01-02 12:58:00 98.3 F [facility] [place] BMI Calculated 2018-01-01 03:40:00 Memori al [place] Weight 2018-01-01 03:40:00 [facility] [place] Height 2018-01-01 03:40:00 182.88 cm [facility] [place] Systolic (mm Hg) 2017-12-23 21:45:00 Ryan rial [place] Diastolic (mm Hg) 2017-12-23 21:45:00 Mem orial [place] Respitory Rate 2017-12-23 21:45:00 Memori al [place] Systolic (mm Hg) 2017-12-23 21:39:00 Ryan rial [place] Diastolic (mm Hg) 2017-12-23 21:39:00 Mem orial [place] Respitory Rate 2017-12-23 21:39:00 Memori al [place] Systolic (mm Hg) 2017-12-23 21:24:00 Ryan rial [place] Diastolic (mm Hg) 2017-12-23 21:24:00 Mem orial [place] Respitory Rate 2017-12-23 21:24:00 Memori al [place] Heart Rate 2017-12-23 15:46:00 [facility] [place] BMI Calculated 2017-12-18 15:02:00 Memori al [place] Weight 2017-12-18 15:02:00 [facility] [place] Height 2017-12-18 15:02:00 180.34 cm [facility] [place] BMI Calculated 2017-11-28 16:03:00 Memori al [place] Heart Rate 2017-11-28 16:03:00 [facility] [place] Systolic (mm Hg) 2017-11-28 16:03:00 Ryan rial [place] Diastolic (mm Hg) 2017-11-28 16:03:00 Mem orial [place] Height 2017-11-28 16:03:00 177.8 cm [facility] [place] Weight 2017-11-28 16:03:00 [facility] [place] Procedures Procedure Date / Time Performing Clinician Source Performed [id number] 2021-04-19 00:00:00 CEE Carias [facility] Pre Op Promise 29 Survey 2018-09-10 00:00:00 [facility] Measurement of 2018-02-24 15:04:00 [facility] Her dickson post-voiding residual urine and/or bladder capacity by ultrasound, non-imaging History of Heart Surgery [facility] CABG - Coronary artery [facility] [place] bypass graft<sup>1</sup> Cardiac [facility] [place] catheterization<sup>2</s up> History of Angioplasty [facility] Internal Carotid Artery Physicia ns Carotid [facility] [place] endarterectomy<sup>3</beckett p> Repair of diaphragmatic [facility] [place] hiatal hernia<sup>4</sup> Encounters Start End Encounter Admission Attending Care Care Encounter Source Date/Time Date/Time Type Type Clinicians Facility Department ID 2021-11-13 Outpatient Katharina, STLMLC STLMLC [id number] [facility] [address] 09:47:05 [facility] 2021-05-31 Inpatient CHARISSE [facility] 07:30:00 Sonny [id number] [facility] 2021-05-29 Inpatient CHET Dalton, HCACL OUTD [facility] 09:00:00 Sonny [id number] [facility] 2021-04-17 Inpatient CHET Dalton HCACL DAYS [facility] 09:00:00 Sonny [id number] [facility] 2021-11-13 2021-11-13 ambulatory STLMLC STLMLC [id number] [facility] 00:[facility] 00[facility]:00 [facility] ent Clinics 2021-05-31 2021-05-31 Outpatient CHET Dalton, HCACL OUTD [id number] [facility] 05:28:00 05:28:00 Sonny 20 [facility] 2021-04-19 2021-04-19 Inpatient CHET Dalton, HCACL INTE.02 [id number] [facility] 12:22:00 14:00:00 Sonny 68 [facility] 2021-04-19 2021-04-19 Inpatient CHET Dalton, HCACL INTE.02 [id number] [facility] 12:22:00 14:00:00 Sonny [id number] [facility] 2020-10-31 2020-10-31 Ambulatory nullFlavo [facility] [id number] Memoria 15:30:00 15:30:00 Pre-Reg r Cardiology 15 l [place] 2020-02-24 2020-02-25 Outpatient nullFlavo [facility] [id number] Memoria 14:00:00 04:59:59 r Specialty 16 l [facility] 2019-11-02 2019-11-03 Outpatient nullFlavo [facility] [id number] Memoria 17:00:00 05:59:59 r Cardiology 14 l [place] nn 2019-05-04 2019-05-05 Outpatient nullFlavo [facility] [id number] Memoria 15:15:00 04:59:59 r Cardiology 13 l [place] 2018-10-22 2018-11-21 OP Therapy nullFlavo [facility] [id number] Memoria 14:38:00 04:59:00 Patients r HOSH-Bellai 02 l [facility] 2018-11-03 2018-11-04 Outpatient nullFlavo [facility] [id number] Memoria 16:30:00 05:59:59 r Cardiology 12 l [place] 2018-09-22 2018-10-22 OP Therapy nullFlavo [facility] [id number] Memoria 15:51:00 05:59:00 Patients r HOSH-Bellai 01 l re [place] 2018-09-17 2018-09-17 Appointmen LINNETTE [facility] [id number] [address] [place] [address] 09:30:00 09:30:00 t; Carlos Eduardo YAÑEZ Ortho and ity of LINNETTE, Spine [facility] [place] Allison YAÑEZ Physicshahid Thibodeaux [place] ans 2018-05-05 2018-05-06 Outpatient nullFlavo [facility] [id number] Memoria 16:15:00 04:59:59 r Cardiology 09 l [place] 2018-03-19 2018-03-21 Outside nullFlavo [facility] [id number] Memoria 18:39:00 04:59:59 Medical r Cardiology 06 l [facility] 2018-02-24 2018-02-25 Outpatient nullFlavo [facility] [id number] Memoria 14:15:00 04:59:59 r Urology 11 l [facility] 2018-01-16 2018-01-16 Ambulatory nullFlavo [facility] [id number] Memoria 19:15:00 19:15:00 Pre-Reg r Urology 10 l [facility] 2018-01-06 2018-01-08 Phone nullFlavo [facility] [id number] Memoria 16:57:00 04:59:59 Message r Urology 05 l [facility] 2018-01-01 2018-01-02 Inpatient nullFlavo [facility] [id number] Memoria 03:14:00 21:55:00 r [place] 14 [facility] 2018-01-01 2018-01-01 Emergency nullFlavo [facility] [id number] Memoria 03:12:00 03:12:00 r [place] 02 [facility] 2017-12-23 2017-12-23 Day nullFlavo [facility] [id number] Memoria 10:43:00 22:20:00 Surgery r [place] 01 [facility] 2017-11-28 2017-11-29 Outpatient nullFlavo [facility] [id number] Memoria 15:45:00 04:59:59 r Cardiology 08 l Allyson Hutton n 2017-07-19 2017-07-21 Phone nullFlavo [facility] [id number] Memoria 22:08:00 05:59:59 Message r Cardiology 04 l Allyson Hutton n 2017-06-20 2017-06-20 Outpatient SEBASTIAN SEBASTIAN [id number] Memoria 13:45:00 13:45:00 07 jacky Shaffer 2017-06-06 2017-06-06 Outpatient IE SEBASTIAN [id number] Memoria 13:00:00 13:00:00 06 jacky Shaffer 2017-04-30 2017-04-[facility] [id number] 11:30:00 11:30:00 t; Carlos Eduardo YAÑEZ it y of Sandra ANGLIN Physici M.D. ans 2016-12-05 2016-12-05 Outpatient SEBASTIAN SEBASTIAN [id number] Memoria 10:00:00 10:00:00 05 jacky Shaffer 2016-08-20 2016-08-20 Outpatient IE IE [id number] Memoria 11:30:00 11:30:00 04 l Edmund 2016-08-20 2016-08-20 Outpatient IE IE [id number] Memoria 10:00:00 10:00:00 03 l [place] 2016-08-13 2016-08-13 Outpatient IE IE [id number] Memoria 10:00:00 10:00:00 01 jacky Shaffer 2016-07-05 2016-07-05 Outpatient [facility] [id number] Memoria 15:30:00 15:30:00 00 jacky Shaffer Results Test Description Test Time Test Comments Results Result Comments Source Novel Coronavirus 2019 Inhouse 2021-05-30 05:54:00 Test Item Value Reference Range Interpretation Comme nts Novel Coronavirus 2018 Negative Negative Posit petra results are indicative of the Inhouse (test code = presenc e [id number] RNA, clinical COVNONPUI) correlation wit h patient [...] for the identification of SARS-CoV-2 RNA usingthe [employer] M2000 System under th e FDA Emergency UseAuthorizatio n. The testing is performed by dwight araujorained in the procedures for the AdAlta M2000 moleculardiagno stic SARS-CoV-2 assay in vitro. PROTHROMBIN [id number] 10:33:00 Test Item Value Reference Range Interpretation [...] o prevent recurre nt infarct). 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 [facility] [id number] 11:44:00 Test Item Value Reference Range Interpretation Comments ACT-ISTAT (test code 257 SEC 74-137 H Perform ed by certified = ACTI) 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 The testing is perf ormed by personnelstacie d in the procedures for the AdAlta M2000 molecular diagnostic SARS-CoV-2 assa y in vitro. BASIC METABOLIC [id number] 11:10:00 Test Item Value Reference Range Interpretation [...] code = 9.3 mg/dL 8.0-10.5 N CA) [id number] 11:10:00 Test Item Value Reference Range Interpretation Comments PREALBUMIN (test code = PREALB) 24.7 mg/dL 16.0-40.0 N BASIC METABOLIC [id number] 11:09:00 Test Item Value Reference Range Interpretation [...] code = 9.3 mg/dL 8.0-10.5 N CA) [id number] 11:09:00 Test Item Value Reference Range Interpretation Comments PREALBUMIN (test code = PREALB) mg/dL 16.0-40.0 PROTHROMBIN [id number] 11:03:00 Test Item Value Reference Range Interpretation [...] o prevent recurre nt infarct). CBC W/AUTO [id number] 10:57:00 Test Item Value Reference Range Interpretation [...] (test code NO = MDIFF) CBC W/AUTO [id number] 10:48:00 Test Item Value Reference Range Interpretation [...] code = MDIFF) - XR CHEST 2 [id number] 00:00:00 [facility] : 1940 Sex: M FAX: Sonny Kumar MD [phone] [place]: St: PRE Name: CLINTON BRUNNER : 1940 Age/S: 80/[place] [address] [place] [address] Unit #: [id number] Loc: [place] [address] Phys: Sonny Dalton MD Acct: [id number] Dis Date: Status: PRE SDC PHONE #: [phone] Exam Date: 04/17/2021 1105 FAX #: [phone] Reason: PREOP EXAMS: CPT CODE: [id number] XR CHEST 2 V [id number] PROCEDURE INFORMATION: Exam: XR Chest Exam date [...] D.O. CC: Sonny Dalton MD Technologist: RT Nat(R) Trnscrd Date/Time/By: 04/17/2021 (1130) : By: [email or web address] Orig Print D/T: S: 04/17/2021 (1131) PAGE 1 Signed Report[U] XRAY SPINE LUMBOSACRAL MIN 4 VWS [id number] 2018-09-17 11:15:00Images acquired, not reported on this accession number. [facility][U] XRAY HIPS BILATERAL MIN 2 VWS AND AP PELVIS [id number] 07:43:00Images acquired, not reported on this accession number. [facility] [id number] 17:28:00Surgical Pathology Report Case: [id number] Authorizing Provider: Byron Bolanos MD Collected: 05/13/2018 1448 Ordering Location: [facility] PERIOPERATIVE Received: 05/14/2018 0818 SERVICES Pathologist: [...] FAST MICROORGANISMS Signing Pathologist Direct Phone Line: [phone] signed by Eze Guzman MD on 05/19/2018 at 5:28 PMPreliminary result electronically signed by Eze Guzman MD on 05/16/2018 at 11:49 AMSpecial stains for AFB and GMS were negative for acid fast and fungal microorganisms, respectively. [id number] N5Cxliknjlpr bladder emptying A. Mesh; B. Bladder with [...] surface throughout. No discrete masses are identified. [place] Di[place] sections are submitted in cassettes C1-C19. DB/plPerformedPOCT-GLUCOSE [id number] 07:37:00 Test Item Value Reference Range Interpretation Comments POC-GLUCOSE METER 184 mg/dL 70-110 H TESTED AT [facility] 6720 (BEAKER) (test code = [place] 1538) [address] BASIC METABOLIC [id number] 06:19:00 Test Item Value Reference Range Interpretation [...] CORPUSCULAR HEMOGLOBIN CONC 32.2 GM/DL 32.3-36.5 L ([facility]) (test code = 752) RED CELL DISTRIBUTION WIDTH 13.2 % 11.6-14.4 ([facility]) (test code = 412) PLATELET COUNT ([facility]) (test 191 K/CU MM 150-450 code = 756) MEAN PLATELET VOLUME ([facility]) 10.6 fL 9.4-12.4 (test code = 754) NUCLEATED RED BLOOD CELLS 0 /100 WBC 0-0 ([facility]) (test code = 413) POCT-GLUCOSE [id number] 21:51:00 Test Item Value Reference Range Interpretation Comments POC-GLUCOSE METER 216 mg/dL 70-110 H TESTED AT [place] [address] ([facility]) (test code = RHIANNAMIKAYLA Shultz [facility] 1538) [address] POCT-GLUCOSE [id number] 19:28:00 Test Item Value Reference Range Interpretation Comments POC-GLUCOSE METER 186 mg/dL 70-110 H TESTED AT [place] [address] ([facility]) (test code = TALA Shultz [facility] 1538) [address] POCT-GLUCOSE [id number] 16:57:00 Test Item Value Reference Range Interpretation Comments POC-GLUCOSE METER 215 mg/dL 70-110 H TESTED AT [place] [address] ([facility]) (test code = RHIANNAMIKAYLA Shultz [facility] 1538) [address] POCT-GLUCOSE [id number] 12:43:00 Test Item Value Reference Range Interpretation Comments POC-GLUCOSE METER 223 mg/dL 70-110 H TESTED AT [place] [address] ([facility]) (test code = TALA Shultz [facility] 1538) [address] POCT-GLUCOSE [id number] 08:13:00 Test Item Value Reference Range Interpretation Comments POC-GLUCOSE METER 157 mg/dL 70-110 H TESTED AT [place] [address] ([facility]) (test code = TALA Shultz [facility] 1538) [address] GENTAMICIN LEVEL, [id number] 05:51:00 Test Item Value Reference Range Interpretation Comments GENTAMICIN TROUGH ([facility]) (test 1.9 ug/mL 0.5-1.0 H code = 398) Dosing Target Level (mcg/mL)1-1.5 mg/kg q 8-12 HR 0.5-1.03-7 mg/kg q 24 HR <0.5BASIC METABOLIC [id number] 05:47:00 Test Item Value Reference Range Interpretation [...] (BEAKER) (test code = 412) [facility] (test 211 K/CU MM 150-450 code = 756) MEAN PLATELET VOLUME (BEAKER) 10.8 fL 9.4-12.4 (test code = 754) NUCLEATED RED BLOOD CELLS 0 /100 WBC 0-0 (AKER) (test code = 413) POCT-GLUCOSE [id number] 21:47:00 Test Item Value Reference Range Interpretation Comments POC-GLUCOSE METER 220 mg/dL 70-110 H TESTED AT [place] [address] ([facility]) (test code = [facility] 1538) [address] POCT-GLUCOSE [id number] 17:06:00 Test Item Value Reference Range Interpretation Comments POC-GLUCOSE METER 211 mg/dL 70-110 H TESTED AT [place] [address] ([facility]) (test code = [facility] 1538) [address] POCT-GLUCOSE [id number] 11:44:00 Test Item Value Reference Range Interpretation Comments POC-GLUCOSE METER 225 mg/dL 70-110 H TESTED AT [place] [address] ([facility]) (test code = [facility] 1538) [address] POCT-GLUCOSE [id number] 08:29:00 Test Item Value Reference Range Interpretation Comments POC-GLUCOSE METER 201 mg/dL 70-110 H TESTED AT [place] [address] ([facility]) (test code = [facility] 1538) [address] BASIC METABOLIC [id number] 06:04:00 Test Item Value Reference Range Interpretation [...] 0-0 (BEAKER) (test code = 413) POCT-GLUCOSE [id number] 21:39:00 Test Item Value Reference Range Interpretation Comments POC-GLUCOSE METER 275 mg/dL 70-110 H TESTED AT [facility] 6720 (BEAKER) (test code = [place] 1538) [address] BASIC METABOLIC [id number] 19:42:00 Test Item Value Reference Range Interpretation [...] 0-0 (BEAKER) (test code = 413) POCT-GLUCOSE [id number] 18:50:00 Test Item Value Reference Range Interpretation Comments POC-GLUCOSE METER 197 mg/dL 70-110 H TESTED AT [facility] 6720 ([facility]) (test code = [facility] Lexii [facility] 1538) [address] VANCOMYCIN LEVEL, [id number] 12:29:00 Test Item Value Reference Range Interpretation Comments [facility]IN TROUGH [facility] (test 20.9 ug/mL 10.0-20.0 H code = 522) Please draw trough at 1330 (30 minutes prior to scheduled vancomycin dose at 1400).POCT-GLUCOSE [id number] 07:17:00 Test Item Value Reference Range Interpretation Comments POC-GLUCOSE METER 148 mg/dL 70-110 H TESTED AT [facility] 6720 ([facility]) (test code = [facility] 1538) [address] POCT-GLUCOSE [id number] 06:09:00 Test Item Value Reference Range Interpretation Comments POC-GLUCOSE METER 149 mg/dL 70-110 H TESTED AT [place] [address] ([facility]) (test code = [facility] 1538) [address] BASIC METABOLIC [id number] 06:04:00 Test Item Value Reference Range Interpretation [...] 0-0 (BEAKER) (test code = 413) POCT-GLUCOSE [id number] 21:17:00 Test Item Value Reference Range Interpretation Comments POC-GLUCOSE METER 164 mg/dL 70-110 H TESTED AT [place] [address] ([facility]) (test code = TALA Shultz [facility] 1538) [address] POCT-GLUCOSE [id number] 16:39:00 Test Item Value Reference Range Interpretation Comments POC-GLUCOSE METER 225 mg/dL 70-110 H TESTED AT [place] [address] ([facility]) (test code = TALA Shultz [facility] 1538) [address] POCT-GLUCOSE [id number] 12:09:00 Test Item Value Reference Range Interpretation Comments POC-GLUCOSE METER 186 mg/dL 70-110 H TESTED AT [place] [address] ([facility]) (test code = TALA Shultz [facility] 1538) [address] POCT-GLUCOSE [id number] 08:50:00 Test Item Value Reference Range Interpretation Comments POC-GLUCOSE METER 194 mg/dL 70-110 H TESTED AT [place] [address] (BEAKER) (test code = [place] 1538) [address] BASIC METABOLIC [id number] 06:04:00 Test Item Value Reference Range Interpretation [...] 0-0 (BEAKER) (test code = 413) POCT-GLUCOSE [id number] 00:11:00 Test Item Value Reference Range Interpretation Comments POC-GLUCOSE METER 143 mg/dL 70-110 H TESTED AT [facility] 67 ([facility]) (test code = [facility] 1538) [address] POCT-GLUCOSE [id number] 17:16:00 Test Item Value Reference Range Interpretation Comments POC-GLUCOSE METER 261 mg/dL 70-110 H TESTED AT [place] [address] ([facility]) (test code = [facility] 1538) [address] POCT-GLUCOSE [id number] 10:04:00 Test Item Value Reference Range Interpretation Comments POC-GLUCOSE METER 153 mg/dL 70-110 H TESTED AT [place] [address] ([facility]) (test code = [facility] 1538) [address] BASIC METABOLIC [id number] 17:28:00 Test Item Value Reference Range Interpretation [...] GFR I S NOT APPLICABLE FOR DIALYSIS PATIVANDA CEJA. [id number] 17:26:00 Test Item Value Reference Range Interpretation Comments PARTIAL THROMBOPLASTIN TIME 28.7 seconds 22.5-36.0 (BEAKER) (test code = 760) PROTHROMBIN [id number] 17:25:00 Test Item Value Reference Range Interpretation [...] (test code = 2801) RAD, CHEST, 2 [id number] 16:06:00Reason for exam:->screening prior to anesthesiaFINAL REPORT [...] MDReport Verified Date/Time: 04/30/2018 16:06:13 Reading Location: [address] Radiology Reading Room CHEM [id number] 08:35:00 Test Item Value Reference Range Interpretation Comments Magnesium Lvl (test code = Magnesium 2.2 1.8-2.4 Lvl) [facility] [id number] 08:35:00 Test Item Value Reference Range Interpretation Comments AGAP (test code = AGAP) 12.7 10.0-20.0 [facility] He[id number] 08:35:00 Test Item Value Reference Range Interpretation Comments CO2 (test code = CO2) 28 24-32 [facility] Hea[id number] 08:35:00 Test Item Value Reference Range Interpretation Comments Calcium Lvl (test code = Calcium Lvl) 7.7 8.5-10.5 [facility] HealthPjkuojyKSXZTBQLQDFK5581-11-37 08:35:00 Test Item Value Reference Range Interpretation Comments BUN (test code = BUN) 12 7-22 [facility] H[id number] 08:35:00 Test Item Value Reference Range Interpretation Comments Sodium Lvl (test code = Sodium Lvl) 143 135-145 [facility] HealthQehtzhfZNUBUJJMEZYN4085-15-19 08:35:00 Test Item Value Reference Range Interpretation Comments Chloride Lvl (test code = Chloride Lvl) 106 95-109 [facility] HealthPkvhaamAHKQAJFEJDXV2398-08-91 08:35:00 Test Item Value Reference Range Interpretation Comments Potassium Lvl (test code = Potassium 3.7 3.5-5.1 Lvl) [facility] Health[id number] 08:35:00 Test Item Value Reference Range Interpretation Comments eGFR (test code = eGFR) 85 [facility] HealthRxwujquKHSZBANVLHBJ0663-50-06 08:35:00 Test Item Value Reference Range Interpretation Comments Glucose Lvl (test code = Glucose Lvl) 161 70-99 [facility] HealthShuepqdTBFAJAPPWJMZ2353-30-84 08:35:00 Test Item Value Reference Range Interpretation Comments Creatinine Lvl (test code = Creatinine 0.81 0.50-1.40 Lvl) [id number] 08:35:00 Test Item Value Reference Range Interpretation Comments MPV (test code = MPV) 8.2 7.4-10.4 [facility] HospitalTiyxfjcVCFRJDXBHU6264-81-92 08:35:00 Test Item Value Reference Range Interpretation Comments Platelet (test code = Platelet) 247 133-450 [facility] HospitalPzuwvzoCBRLRSQFGH2806-01-36 08:35:00 Test Item Value Reference Range Interpretation Comments RDW (test code = RDW) 14.0 11.5-14.5 [facility] HospitalVlwwoekLNLTRGUREF8482-78-04 08:35:00 Test Item Value Reference Range Interpretation Comments WBC (test code = WBC) 9.7 3.7-10.4 [facility] Ho[id number] 08:35:00 Test Item Value Reference Range Interpretation Comments RBC (test code = RBC) 3.93 4.70-6.10 [facility] HospitalNrwakloIQCKQHMMMT1901-84-85 08:35:00 Test Item Value Reference Range Interpretation Comments Hgb (test code = Hgb) 12.0 14.0-18.0 [facility] HospitalWrzeezmLDTYOQEHHI5556-62-84 08:35:00 Test Item Value Reference Range Interpretation Comments Hct (test code = Hct) 35.4 42.0-54.0 [facility] HospitalWatlqieJOTISPZBPM5049-57-09 08:35:00 Test Item Value Reference Range Interpretation Comments MCV (test code = MCV) 90.1 80.0-94.0 [facility] HospitalTyrngnhBLVFIACGNT8844-59-51 08:35:00 Test Item Value Reference Range Interpretation Comments MCH (test code = MCH) 30.6 pg 27.0-31.0 [facility] HospitalWzvzeadHXNJWNOYMJ1758-94-90 08:35:00 Test Item Value Reference Range Interpretation Comments MCHC (test code = MCHC) 34.0 32.0-36.0 [facility] HospitalIvlkmiuBMTHXRUTOZ2817-89-37 08:35:00 Test Item Value Reference Range Interpretation Comments Basophils # (test code 0.1 See_Comment [Aut omated message] The = Basophils #) system which generated this result tra nsmitted reference range : <=0.2. The reference r danna was not used to int erpret this result as normal/abnormal . [facility] HospitalMheuxwrNAGTVNGREV5739-94-51 08:35:00 Test Item Value Reference Range Interpretation Comments Segs (test code = Segs) 66.9 45.0-75.0 [facility] HospitalHaqqndjWNQCTPHHIL1824-28-27 08:35:00 Test Item Value Reference Range Interpretation Comments Eosinophils (test code = 4.7 See_Comment [A utomated message] The Eosinophils) system which ge nerated this result tra nsmitted reference range : <=4.0. The reference r danna was not used to int erpret this result as normal/abnormal . [facility] HospitalLvcvuseBLIXCYSJUT1118-92-92 08:35:00 Test Item Value Reference Range Interpretation Comments Basophils (test code = 1.1 See_Comment [Aut omated message] The Basophils) system which ge nerated this result tra nsmitted reference range : <=1.0. The reference r danna was not used to int erpret this result as normal/abnormal . [facility] HospitalKcsloupPSASCAFWRI5942-69-18 08:35:00 Test Item Value Reference Range Interpretation Comments Lymphocytes (test code = Lymphocytes) 19.1 20.0-40.0 [facility]NotnpgpBRBILFZWBS6559-96-84 08:35:00 Test Item Value Reference Range Interpretation Comments Monocytes (test code = Monocytes) 8.2 2.0-12.0 [facility] HospitalQxomojkMIHRINZQBY5612-16-45 08:35:00 Test Item Value Reference Range Interpretation Comments Segs-Bands # (test code = Segs-Bands #) 6.5 1.5-8.1 [facility] HospitalTqmizeqABKFTHMQLK4325-41-86 08:35:00 Test Item Value Reference Range Interpretation Comments Eosinophils # (test code 0.5 See_Comment [A utomated message] The = Eosinophils #) system whic h generated this result tra nsmitted reference range : <=0.5. The reference r danna was not used to int erpret this result as normal/abnormal . [facility] HospitalQlahrbzJZLKZZJCYA5857-93-26 08:35:00 Test Item Value Reference Range Interpretation Comments Monocytes # (test code 0.8 See_Comment [Aut omated message] The = Monocytes #) system which generated this result tra nsmitted reference range : <=0.8. The reference r danna was not used to int erpret this result as normal/abnormal . [facility] HospitalWrgnrlbBUNXRQOXEX7814-61-93 08:35:00 Test Item Value Reference Range Interpretation Comments Lymphocytes # (test code = Lymphocytes 1.9 1.0-5.5 #) [facility] FDPTZYR1640-02-48 05:05:00 Test Item Value Reference Range Interpretation Comments BNP (test code = BNP) 221 [facility]manannCHEM NUISY6617-12-36 05:05:00 Test Item Value Reference Range Interpretation Comments Magnesium Lvl (test code = Magnesium 1.4 1.8-2.4 Lvl) [facility]manPcmeipkYMMPCRHGHGKA7743-80-54 05:05:00 Test Item Value Reference Range Interpretation Comments AGAP (test code = AGAP) 10.5 10.0-20.0 [facility] HealthOizxxuoBQHMZIRAPVGG0438-47-04 05:05:00 Test Item Value Reference Range Interpretation Comments CO2 (test code = CO2) 33 24-32 [facility] HealthGojkecpNLFFBBTNSYBV4928-13-88 05:05:00 Test Item Value Reference Range Interpretation Comments Calcium Lvl (test code = Calcium Lvl) 8.2 8.5-10.5 [facility] HealthIhvnzftYOPERNSVXNQP0172-29-33 05:05:00 Test Item Value Reference Range Interpretation Comments Potassium Lvl (test code = Potassium 3.5 3.5-5.1 Lvl) [facility] HealthDclfblaVFIYNQTTXEVF8880-96-14 05:05:00 Test Item Value Reference Range Interpretation Comments Sodium Lvl (test code = Sodium Lvl) 144 135-145 [facility] HealthVaahzzzLYRFNKAIFCMZ9042-25-43 05:05:00 Test Item Value Reference Range Interpretation Comments Chloride Lvl (test code = Chloride Lvl) 104 95-109 [facility] HealthNyriyitJKNOYIHKYUFT9430-74-85 05:05:00 Test Item Value Reference Range Interpretation Comments BUN (test code = BUN) 18 7-22 [facility] HealthUiukpohTAITOOZSQXSD4758-28-32 05:05:00 Test Item Value Reference Range Interpretation Comments Glucose Lvl (test code = Glucose Lvl) 107 70-99 [facility] HealthOobkwkiRYVQKIQEVXPQ0156-80-89 05:05:00 Test Item Value Reference Range Interpretation Comments eGFR (test code = eGFR) 80 [facility] HealthUkhpwrbHDJEWYYXLICI5192-92-39 05:05:00 Test Item Value Reference Range Interpretation Comments Creatinine Lvl (test code = Creatinine 0.92 0.50-1.40 Lvl) [facility] HospitalVojodicEBEWOBVIKG8273-60-67 05:05:00 Test Item Value Reference Range Interpretation Comments Segs-Bands # (test code = Segs-Bands #) 6.9 1.5-8.1 [facility] HospitalGrtrndhEKTYFHONZG6892-34-96 05:05:00 Test Item Value Reference Range Interpretation Comments Lymphocytes # (test code = Lymphocytes 1.9 1.0-5.5 #) [facility] HospitalYceptqvKVDTCMNTYI6134-42-11 05:05:00 Test Item Value Reference Range Interpretation Comments Monocytes # (test code 0.8 See_Comment [Aut omated message] The = Monocytes #) system which generated this result tra nsmitted reference range : <=0.8. The reference r danna was not used to int erpret this result as normal/abnormal . [facility] HospitalLroxlicZNVVBIZMLG8609-47-77 05:05:00 Test Item Value Reference Range Interpretation Comments Basophils # (test code 0.1 See_Comment [Aut omated message] The = Basophils #) system which generated this result tra nsmitted reference range : <=0.2. The reference r danna was not used to int erpret this result as normal/abnormal . [facility] HospitalGxssjolCSYDWUOJEG0431-62-61 05:05:00 Test Item Value Reference Range Interpretation Comments Eosinophils # (test code 0.6 See_Comment [A utomated message] The = Eosinophils #) system whic h generated this result tra nsmitted reference range : <=0.5. The reference r danna was not used to int erpret this result as normal/abnormal . [facility] HospitalNbwwzmsGMZIMFXZGS1852-20-08 05:05:00 Test Item Value Reference Range Interpretation Comments Segs (test code = Segs) 66.9 45.0-75.0 [facility] HospitalOjagoyxCQKPDLLAPN5607-40-25 05:05:00 Test Item Value Reference Range Interpretation Comments Basophils (test code = 0.9 See_Comment [Aut omated message] The Basophils) system which ge nerated this result tra nsmitted reference range : <=1.0. The reference r danna was not used to int erpret this result as normal/abnormal . [facility] HospitalJylfqgdOFNYKFPWVO0633-26-61 05:05:00 Test Item Value Reference Range Interpretation Comments Eosinophils (test code = 5.6 See_Comment [A utomated message] The Eosinophils) system which ge nerated this result tra nsmitted reference range : <=4.0. The reference r danna was not used to int erpret this result as normal/abnormal . [facility] HospitalXhlyajwHZIYBXEBSC2754-23-66 05:05:00 Test Item Value Reference Range Interpretation Comments Monocytes (test code = Monocytes) 7.8 2.0-12.0 [facility] HospitalIghmwbxSKUAEIHVOK6842-07-02 05:05:00 Test Item Value Reference Range Interpretation Comments Lymphocytes (test code = Lymphocytes) 18.8 20.0-40.0 [facility] HospitalIcacncpOVAUBXRWZR6537-20-88 05:05:00 Test Item Value Reference Range Interpretation Comments RDW (test code = RDW) 14.3 11.5-14.5 [facility] HospitalBfqdgqcIFHKRHFJOA2134-51-66 05:05:00 Test Item Value Reference Range Interpretation Comments Platelet (test code = Platelet) 271 999-450 [facility] HospitalLjbbaiwCOPONKUAPS2302-74-40 05:05:00 Test Item Value Reference Range Interpretation Comments MPV (test code = MPV) 8.2 7.4-10.4 [facility] HospitalWedcarxOGRJSMPKTG9010-28-02 05:05:00 Test Item Value Reference Range Interpretation Comments WBC (test code = WBC) 10.3 3.7-10.4 [facility] HospitalDwzgnneGYKQFJSEFK8206-25-07 05:05:00 Test Item Value Reference Range Interpretation Comments MCHC (test code = MCHC) 33.9 32.0-36.0 [facility] HospitalSsfbpfqBDQMYLGLDL5308-98-08 05:05:00 Test Item Value Reference Range Interpretation Comments RBC (test code = RBC) 4.35 4.70-6.10 [facility] HospitalIrcxsuzCUHPSKDKHD8163-81-43 05:05:00 Test Item Value Reference Range Interpretation Comments Hgb (test code = Hgb) 13.3 14.0-18.0 [facility] HospitalHnevinsUTPMALSGBM6473-93-07 05:05:00 Test Item Value Reference Range Interpretation Comments Hct (test code = Hct) 39.3 42.0-54.0 [id number] 05:05:00 Test Item Value Reference Range Interpretation Comments MCV (test code = MCV) 90.5 80.0-94.0 [id number] 05:05:00 Test Item Value Reference Range Interpretation Comments MCH (test code = MCH) 30.6 pg 27.0-31.0 [facility] [id number] 04:41:00 Test Item Value Reference Range Interpretation Comments UA Ketones (test code = UA Ketones) Negative [facility] [id number] 04:41:00 Test Item Value Reference Range Interpretation Comments UA Glucose (test code = UA Glucose) 150 [facility] [id number] 04:41:00 Test Item Value Reference Range Interpretation Comments UA Sq Epi (test code = UA Sq Epi) None Seen [facility] AND [id number] 04:41:00 Test Item Value Reference Range Interpretation Comments UA Bacteria (test code = UA Few /HPF Bacteria) [facility] AND [id number] 04:41:00 Test Item Value Reference Range Interpretation Comments UA Mucus (test code = UA Mucus) Few /LPF [facility] AND [id number] 04:41:00 Test Item Value Reference Range Interpretation Comments UA RBC (test code = 85 See_Comment [Automa jey message] The UA RBC) system which ge nerated this result transmit jey reference range : <=2. The reference range was not used to interpr et this result as holley l/abnormal. [facility] AND [id number] 04:41:00 Test Item Value Reference Range Interpretation Comments UA Blood (test code = Moderate *ABN*(12/31/17 UA Blood) 11:41 PM) [facility] AND [id number] 04:41:00 Test Item Value Reference Range Interpretation Comments UA Urobilinogen (test code = UA 4.0 0.1-1.0 Urobilinogen) [facility] AND [id number] 04:41:00 Test Item Value Reference Range Interpretation Comments UA pH (test code = UA pH) 7.0 1 5.0-8.0 [facility] AND [id number] 04:41:00 Test Item Value Reference Range Interpretation Comments UA Leuk Est (test Moderate *ABN*(12/31/17 code = UA Leuk Est) 11:41 PM) [facility] AND [id number] 04:41:00 Test Item Value Reference Range Interpretation Comments UA WBC (test code = 72 See_Comment [Automa jey message] The UA WBC) system which ge nerated this result transmit jey reference range : <=5. The reference range was not used to interpr et this result as holley l/abnormal. [facility] AND [id number] 04:41:00 Test Item Value Reference Range Interpretation Comments UA Bili (test code = Negative *NA*(12/31/17 UA Bili) 11:41 PM) [facility] AND [id number] 04:41:00 Test Item Value Reference Range Interpretation Comments UA Nitrite (test code Negative (12/31/17 11:41 = UA Nitrite) PM) [facility] AND [id number] 04:41:00 Test Item Value Reference Range Interpretation Comments UA Turbidity (test code Slight *ABN*(12/31/17 = UA Turbidity) 11:41 PM) [facility] AND [id number] 04:41:00 Test Item Value Reference Range Interpretation Comments UA Spec Grav (test code = UA Spec 1.018 1 Grav) [facility] AND [id number] 04:41:00 Test Item Value Reference Range Interpretation Comments UA Color (test code = Dark Yellow UA Color) *NA*(12/31/17 11:41 PM) [facility] AND [id number] 04:41:00 Test Item Value Reference Range Interpretation Comments UA Protein (test code = UA >=300 mg/dL Protein) [id number] 15:30:00 Test Item Value Reference Range Interpretation Comments Potassium Lvl (test code = Potassium 4.3 3.5-5.1 Lvl) [id number] 15:30:00 Test Item Value Reference Range Interpretation Comments Chloride Lvl (test code = Chloride Lvl) 109 95-109 [id number] 15:30:00 Test Item Value Reference Range Interpretation Comments CO2 (test code = CO2) 28 24-32 [id number] 15:30:00 Test Item Value Reference Range Interpretation Comments Calcium Lvl (test code = Calcium Lvl) 9.8 8.5-10.5 [id number] 15:30:00 Test Item Value Reference Range Interpretation Comments Sodium Lvl (test code = Sodium Lvl) 145 135-145 [id number] 15:30:00 Test Item Value Reference Range Interpretation Comments Glucose Lvl (test code = Glucose Lvl) 144 70-99 [facility] H[id number] 15:30:00 Test Item Value Reference Range Interpretation Comments BUN (test code = BUN) 17 7-22 [facility] [id number] 15:30:00 Test Item Value Reference Range Interpretation Comments eGFR (test code = eGFR) 63 [facility] [id number] 15:30:00 Test Item Value Reference Range Interpretation Comments Creatinine Lvl (test code = Creatinine 1.12 0.50-1.40 Lvl) [facility] [id number] 15:30:00 Test Item Value Reference Range Interpretation Comments AGAP (test code = AGAP) 12.3 10.0-20.0 [id number] 15:30:00 Test Item Value Reference Range Interpretation Comments Hct (test code = Hct) 43.7 42.0-54.0 [facility] H[id number] 15:30:00 Test Item Value Reference Range Interpretation Comments Hgb (test code = Hgb) 14.7 14.0-18.0 [facility]
--- NOTE | 2021-11-16 15:38 | RAD REPORT ---
EXAM DESCRIPTION: CT - CTHCSPWOC - 11/16/2021 3:26 pm CLINICAL HISTORY: Trauma, head and neck injury. fall COMPARISON: Neck Angio dated 01/06/2021; Head C Spine Mpr Wo Con dated 08/11/2020; Head C Spine Mpr Wo Con dated 07/06/2020; Head C Spine Mpr Wo Con dated 04/24/2019Neck Angio dated 01/06/2021; Head C Spin e Mpr Wo Con dated 08/11/2020; Head C Spine Mpr Wo Con dated 07/06/2020; Head C Spine Mpr Wo Con dated 04/24/2019; Head Brain Wo Cont dated 08/28/2021 TECHNIQUE: Axial 5 mm thick images of the head were obtained. Axial 2 mm thick images of the cervical spine were obtained with sagittal and coronal reconstruction images generated and reviewed. All CT scans are performed using dose optimization technique as appropriate and may include automated exposure control or mA/KV adjustment according to patient size. 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 Moderate chronic small vessel ischemic changes. Remote basal carlee glia lacunar infarcts. Left forehead swelling. Trace right mastoid fluid.The calvarium is intact. Intracranial atherosclerosis. CT CERVICAL SPINE WITHOUT CONTRAST: No fracture or subluxation.No prevertebral soft tissues swelling is identified. Multilevel cervical s pondylosis with varying degrees of neural foraminal narrowing. This is severe on the right side at C4 -5 and moderate on the left at C4-5. Intracranial atherosclerosis. IMPRESSION: No acute intracranial or cervical spine findings. Chronic findings as noted above.
[2021-11-16] MEDS ORDERED: LIDOCAINE 1% W/EPI 1:100,000 MDV 50 ML VIAL ONE (16:01)
--- NOTE | 2021-11-16 17:12 | RAD REPORT ---
EXAM DESCRIPTION: RAD - Pelvis - 11/16/2021 5:05 pm CLINICAL HISTORY: fall COMPARISON: Cystography dated 02/11/2018 FINDINGS: No acute fracture. No malalignment. Bilateral acetabular degenerative changes. Degenerativ e changes also present lower spine. Surgical changes noted in the pelvis. Peripheral vascular calcifi cations. IMPRESSION: No acute osseous abnormality involving the bony pelvis.
--- NOTE | 2021-11-16 17:15 | ER ---
Nurse's Notes [facility] Name: Abisai Salinas Age: 81 yrs Sex: Male : 1940 Arrival Date: 11/16/2021 Time: 15:05 Bed 27 Private MD: Diagnosis: Laceration without foreign body of other part of head;Fall on same level, unspecified Presentation: 11/16 15:09 Chief complaint: EMS states: Pt fell while walking [address] in house. Hit head on [facility] corner of wall. - loc and is not on blood thinners. arrived with kerlex to a 8cm lac on l eyebrow. minimal swelling noted and bleeding controlled with bandage. Coronavirus screen: Vaccine status: Patient reports receiving the 2nd dose of the covid vaccine. Client denies travel out of the [place] in the last 14 days. Ebola Screen: Patient denies exposure to infectious person. Patient denies travel to an Ebola-affected area in the 21 days before illness onset. Initial Sepsis Screen: Does the patient meet any 2 criteria? RR > 20 per min. Does the patient have a suspected source of infection? No. Patient's initial sepsis screen is negative. Risk Assessment: Do you want to hurt yourself or someone else? Patient reports no desire to harm self or others. Onset of symptoms was November 16, 2021. 15:09 Method Of Arrival: EMS: [place] [id number] 15:09 Acuity: BIB 3 [facility] Triage Assessment: 15:16 General: Appears in no apparent distress. Behavior is calm, cooperative. Pain: [facility] Complains of pain in left eye Pain currently is 0 out of 10 on a pain scale. Historical: - Allergies: 15:13 No Known Allergies; [facility] - Immunization history:: Adult Immunizations Client reports receiving the 2nd dose of the Covid vaccine. - Social history:: Smoking status: Patient denies any tobacco usage or history of. Screenin:15 Abuse screen: Denies threats or abuse. Nutritional screening: No deficits noted. [facility] Tuberculosis screening: No symptoms or risk factors identified. Fall Risk Fall in past 12 months (25 points). Ambulatory Aid- Crutches/Cane/Walker (15 pts). Gait- Impaired (20 pts.). Assessment: 15:14 General: see triage note. at bedside. pt with hx of advanced dementia unable to [facility] answer questions correctly . 15:17 Derm: Wound noted left eye Wound is lac aprox 6cm. 6 16:30 Reassessment: No changes from previously documented assessment. [employer] at bedside suturing 6 wound. Pt tolerating well. Vital Signs: 15:09 BP 181 / 95; Pulse 79; Resp 18; Temp 98.2(O); Pulse Ox 99% ; Weight 83.91 kg; Height 5 6 ft. 9 in. (175.26 cm); Pain 0/10; 16:10 BP 154 / 74; Pulse 74; Resp 18; Pulse Ox 100% ; jh6 15:09 Body Mass Index 27.32 (83.91 kg, 175.26 cm) 6 ED Course: 15:05 Patient arrived in ED. em1 15:08 Toribio Womakc PA is PHCP. cp 15:08 Jacob Dong DO is Attending Physician. cp 15:09 Deya Parra, RN is Primary Nurse. 6 15:13 Triage completed. 6 15:13 Arm band placed on left wrist. jh6 15:[address] 6 15:15 Call light in reach. Side rails up X 1. Adult w/ patient. 6 15:16 No provider procedures requiring assistance completed. 6 15:26 CT Head C Spine In Process Unspecified. EDMS 16:15 XRAY Pelvis Sent. lr4 17:05 XRAY Pelvis In Process Unspecified. EDMS Administered Medications: No medications were administered Outcome: 17:15 Discharge ordered by MD. cp 17:34 Patient left the ED. [facility] Signatures: Dispatcher [employer] EDMS Janusz Zamudio em1 Toribio Womack PA PA cp Deya Parra, RN RN 6 Ashley Escalera, RN RN lr4
--- NOTE | 2021-11-16 17:15 | EDPHYS ---
Physician Documentation [facility] Name: Abisai Salinas Age: 81 yrs Sex: Male : 1940 Arrival Date: 11/16/2021 Time: 15:05 Bed 27 Private MD: ED Physician Jacob Dong HPI: 11/16 15:25 This 81 yrs old Male presents to ER via EMS with complaints of Fall. cp 15:25 Details of fall: The patient fell from an upright position, while walking. Onset: The cp symptoms/episode began/occurred just prior to arrival. Associated injuries: The patient sustained injury to the head, laceration, of the above left eye. Severity of symptoms: in the emergency department the symptoms are unchanged, despite home interventions. reports patient was walking in hallway of home without using walker when he lost his balance and fell into wall striking head. No reported loss of consciousness. Historical: - Allergies: 15:13 No Known Allergies; jh6 - Immunization history:: Adult Immunizations Client reports receiving the 2nd dose of the Covid vaccine. - Social history:: Smoking status: Patient denies any tobacco usage or history of. ROS: 15:30 Skin: Positive for laceration(s), of the above left eye. cp 15:30 Constitutional: Negative for body aches, chills, fever, poor PO intake. cp 15:30 Cardiovascular: Negative for chest pain. 15:30 Respiratory: Negative for cough. 15:30 Abdomen/GI: Negative for vomiting, diarrhea, constipation. 15:30 Neuro: Negative for altered mental status, loss of consciousness. 15:30 All other systems are negative. Exam: 15:35 Constitutional: The patient appears in no acute distress, alert, awake, non-toxic, well cp developed, well nourished. 15:35 Head/face: Noted is ecchymosis, a laceration(s), that is deep, that is linear, of the cp above left eye, swelling, tenderness. 15:35 Eyes: Pupils: equal, round, and reactive to light and accomodation, Extraocular movements: intact throughout, Conjunctiva: normal, no exudate, no injection, Sclera: no appreciated abnormality, Lids and lashes: appear normal, bilaterally. 15:35 ENT: External ear(s): are unremarkable, Nose: is normal, Mouth: Lips: moist, Oral mucosa: moist, Posterior pharynx: Airway: no evidence of obstruction, patent. 15:35 Neck: C-spine: vertebral tenderness, is not appreciated, crepitus, is not appreciated, ROM/movement: pain, is not appreciated, limited range of motion, is not appreciated. 15:35 Chest/axilla: Inspection: normal, Palpation: is normal, no crepitus, no tenderness. 15:35 Cardiovascular: Rate: normal. 15:35 Respiratory: the patient does not display signs of respiratory distress, Respirations: normal, no use of accessory muscles, no retractions, labored breathing, is not present. 15:35 Abdomen/GI: Inspection: abdomen appears normal, Palpation: abdomen is soft and non-tender, in all quadrants. 15:35 Musculoskeletal/extremity: Extremities: all appear grossly normal, with no appreciated pain with palpation. 15:35 Neuro: Orientation: no acute changes, per family, Mentation: no acute changes, per family, Motor: moves all fours, strength is normal. Vital Signs: 15:09 BP 181 / 95; Pulse 79; Resp 18; Temp 98.2(O); Pulse Ox 99% ; Weight 83.91 kg; Height 5 jh6 ft. 9 in. (175.26 cm); Pain 0/10; 16:10 BP 154 / 74; Pulse 74; Resp 18; Pulse Ox 100% ; jh6 15:09 Body Mass Index 27.32 (83.91 kg, 175.26 cm) jh6 Laceration: 17:20 Wound Repair of 6cm ( 2.4in ) subcutaneous laceration to above left eye. Linear cp shaped.. Distal neuro/vascular/tendon intact. Anesthesia: Wound infiltrated with 6 mls of 1% lidocaine w/ Epi. Wound prep: Simple cleansing by me. Skin closed with 10 5-0 Prolene using interrupted sutures and sterile technique. Dressed with Bacitracin, 4x4's. Patient tolerated well. MDM: 15:12 Patient medically screened. cp 17:15 Data reviewed: vital signs, nurses notes, radiologic studies, CT scan, and as a result, cp I will discharge patient. 17:15 Differential diagnosis: closed head injury, contusion, fracture, laceration, multiple cp trauma. Counseling: I had a detailed discussion with the patient and/or guardian regarding: the historical points, exam findings, and any diagnostic results supporting the discharge/admit diagnosis, radiology results, to return to the emergency department if symptoms worsen or persist or if there are any questions or concerns that arise at home. Response to treatment: the patient's symptoms have markedly improved after treatment, and as a result, I will discharge patient. Special discussion: Based on the patient's history, exam and DX evaluation, there is no indication for emergent intervention or inpatient TX. It is understood by the patient/guardian that if the SXs persist or worsen they need to return immediately for re-evaluation. 11/16 15:10 Order name: CT Head C Spine; Complete Time: 16:04 cp 11/16 15:10 Order name: XRAY Pelvis; Complete Time: 17:14 cp 11/16 17:14 Interpretation: Report reviewed. cp 11/16 17:10 Order name: Wound dressing cp Administered Medications: No medications were administered Disposition Summary: 11/16/21 17:15 Discharge Ordered Location: Home cp Problem: new cp Symptoms: have improved cp Condition: Stable cp Diagnosis - Laceration without foreign body of other part of head cp - Fall on same level, unspecified cp Followup: cp - With: Private Physician - When: 1 week - Reason: Staple/Suture removal Discharge Instructions: - Discharge Summary Sheet cp - Fall Prevention in the Home, Adult cp - Facial Laceration cp Forms: - Medication Reconciliation Form cp - Thank You Letter cp - Antibiotic Education cp - Prescription Opioid Use cp Signatures: Dispatcher [employer] EDMS Toribio Womack PA PA cp Deya Parra RN RN jh6 Corrections: (The following items were deleted from the chart) 11/17 03:32 03:31 Wound Repair of 6cm ( 2.4in ) subcutaneous laceration to above left eye. Linear cp shaped.. Distal neuro/vascular/tendon intact. Anesthesia: Wound infiltrated with 6 mls of 1% lidocaine w/ Epi. Wound prep: Simple cleansing by me. Skin closed with 10 5-0 Prolene using interrupted sutures and sterile technique. Dressed with Bacitracin, 4x4's. Patient tolerated well. cp
[2021-11-16 18:40] VITALS: TEMP 98.2
[2021-11-16 18:42] VITALS: BP 154/74; O2SAT 100
== END 2021-11-16 17:34 | disposition home or self-care (01) ==
LOC: ER 15:02
PROC: 0JQ10ZZ Repair Face Subcutaneous Tissue and Fascia, Open Approach (ICD-10-PCS; principal; 2021-11-16)
DX: S01.81XA Laceration without foreign body of other part of head, initial encounter (principal); W18.39XA Other fall on same level, initial encounter; Y93.01 Activity, walking, marching and hiking; Y92.008 Other place in unspecified non-institutional (private) residence as the place of occurrence of the external cause
CPT/HCPCS: 70450; 72125; 72170; 99284